=== PATIENT | male | born 1950 | race Two or more races ===

== ENCOUNTER 2020-05-22 23:03 | Inpatient (IN) | payer MEDICARE, MEDICAID ==
[~2020-05-22] VITALS: Ht 177.8 cm; Wt 77.2 kg
--- NOTE | 2020-05-22 23:30 | NUR ---
PATIENT CAME TO ER BED 6 C/O SOB WITH LOW O2 SATURATION FROM [facility] BIB RA. PATIENT IS IN HIGH 80s O2 SATURATION ON ROOM AIR. PATIENT IS GIVEN 02 4L OF N/C UPON ARRIVAL. ALERT AND AWAKE. PATIENT IS DIFFICULT TO UNDERSTAND. PATIENT HAS PRODUCTIVE COUGH. PATIENT IS SUCTIONED PRIOR TO OXYGENATION. PATIENT IS CONNECTED TO PHLEBOTOMY PROGRAM COORDINATOR.
--- NOTE | 2020-05-22 23:49 | NUR ---
XRAY AT BEDSIDE
[2020-05-22] MEDS ORDERED: LIDOCAINE 2% JEL UROJET 10 ML MM ONE (23:50)
[2020-05-22 23:54] LABS: BASOPHILS % (AUTO) 0.6 % (0.0-2.0); EOSINOPHILS % (AUTO) 0.8 % (0.0-6.0); HEMATOCRIT 41 % (39-51); HEMOGLOBIN 13.6 g/dL (13.5-17.5); LYMPHOCYTES # (AUTO) 1.2 /CMM (0.8-4.8); LYMPHOCYTES % (AUTO) 19.4 % (20.0-44.0); MEAN CORPUSCULAR HGB CONC 33 g/dl (31.0-36.0); MEAN CORPUSCULAR VOLUME 83 fL (80-96); MONOCYTES # (AUTO) 0.5 /CMM (0.1-1.30); MONOCYTES % (AUTO) 7.8 % (2.0-12.0); NEUTROPHILS # (AUTO) 4.3 /CMM (1.8-8.9); NEUTROPHILS % (AUTO) 71.4 % (43.0-81.0); PLATELET COUNT (AUTO) 422 /CMM (150-450); RED BLOOD CELL COUNT(AUTO) 4.91 MIL/uL (4.5-6.0); WHITE BLOOD COUNT (AUTO) 6.1 K/uL (4.3-11.0)
[2020-05-23] VITALS (11 sets, daily range): BP systolic 121–140; BP diastolic 66–80
[2020-05-23 00:01] LABS: CALCIUM, SERUM 9.3 mg/dL (8.5-10.1); CARBON DIOXIDE 29 mmol/L (21-32); CHLORIDE 96 mmol/L (98-107); CREATININE 0.9 mg/dL (0.6-1.3); GLUCOSE 242 mg/dL (74-106); POTASSIUM 3.9 mmol/L (3.5-5.1); SODIUM SERUM 133 mmol/L (136-145); UREA NITROGEN, BLOOD 21 mg/dL (7-18)
--- NOTE | 2020-05-23 00:03 | NUR ---
URINE COLLECTED AND SENT TO THE LAB.
[2020-05-23 00:11] LABS: APPEARANCE,URINE Slightly Cloudy (CLEAR); BILIRUBIN,URINE Negative (NEGATIVE); BLOOD, URINE Large Ery/uL (NEGATIVE); COLOR,URINE Yellow (YELLOW); KETONES,URINE Negative (NEGATIVE); LEUKOCYTE ESTERASE ,URINE Negative (NEGATIVE); NITRITE, URINE Negative (NEGATIVE); PH,URINE 5.5 (5.0-8.0); PROTEIN,URINE 30 mg/dl (NEGATIVE); UGLUCOSE Negative (NEGATIVE); UROBILINOGEN,URINE 0.2 EU/dL (0.2)
[2020-05-23 00:13] LABS: ALANINE AMINOTRANSFERASE 21 U/L (12-78); ALBUMIN 3.6 g/dL (3.4-5.0); ALKALINE PHOSPHATASE 141 U/L (46-116); ASPARTATE AMINOTRANSFERASE 28 U/L (15-37); B-TYPE NATRIURETIC PEPTIDE 50 PG/ML (0-125); BILIRUBIN,TOTAL 0.4 mg/dL (0.2-1.0); TOTAL PROTEIN, SERUM 8.1 g/dL (6.4-8.2)
[2020-05-23] MEDS ORDERED: LIDOCAINE 2% JEL UROJET 10 ML MM ONE (00:30)
[2020-05-23] MEDS ORDERED: VANCOMYCIN 1 GM in IV D5W 250 ML IV ONE (00:30)
[2020-05-23] MEDS ORDERED: PIPERACILLIN /TAZOBACTAM 3.375 G in IV D5W 50 ML IV ONE (00:30)
[2020-05-23 00:36] LABS: CREATINE KINASE, TOTAL 933 U/L (39-308)
[2020-05-23 00:37] LABS: RBC,URINE 81-100 /HPF (0-2); WBC,URINE 0-2 /HPF (0-3)
[2020-05-23 00:38] LABS: BACTERIA,URINE Few /HPF (None Seen); MUCUS,URINE Few /LPF (None Seen); SQUAMOUS EPITHELIAL CELL,UR Few /HPF (None Seen)
[2020-05-23 00:39] LABS: C-REACTIVE PROTEIN 2.9 mg/dL (0.0-0.9)
[2020-05-23] MEDS ORDERED: PIPERACILLIN /TAZOBACTAM 3.375 G VIAL IV ONE (00:39)
[2020-05-23] MEDS ORDERED: VANCOMYCIN 1 GM VIAL ONE (00:39)
[2020-05-23] MEDS ORDERED: ACETAMINOPHEN 650 MG/SUPP.RECT RC ONE ×2 (01:16→01:30)
[2020-05-23] MEDS: ZINC SULFATE 220 MG CAPSULE PO SCH ×2 (01:30→09:09)
--- NOTE | 2020-05-23 01:45 | NUR ---
REPORT GIVEN TO DAVIE MONET FOR DENG.
[2020-05-23] MEDS ORDERED: ACETAMINOPHEN 325 MG TABLET PO PRN (02:00)
[2020-05-23] MEDS ORDERED: ALBUTEROL SULFATE 8 GM HFA.AER.AD IH PRN (02:00)
[2020-05-23] MEDS: HEPARIN SODIUM, PORCINE 5000 UNITS/1 ML VIAL SQ SCH ×3 (02:00→17:14)
--- NOTE | 2020-05-23 02:10 | NUR ---
CAMPUS WELLNESS COORDINATOR ADMITTING NOTES RECEIVED REPORT FROM CHIKI DU APPROX 0145 PATIENT BROUGHT TO UNIT APPROX 0210, ACCOMPANIED BY 2 ER STAFF; PATIENT AWAKE, CONFUSED; PATIENT ON 4LPM VIA NC; TOLERATING WELL, SATTING AT 97%; BREATHING EVEN AND UNLABORED; NO SOB NOTED AT THIS TIME; NO DISTRESS NOTED; TELE MONITOR ATTACHED READS S.TACHY WITH 104BPM; ISOLATION PRECAUTIONS MAINTAINED, STILL AWAITING COVID19 RESULTS; SKIN ASSESSMENT DONE; UNABLE TO OBTAIN MEDICAL HISTORY FROM PATIENT D/T MENTAL STATUS; CALLED [facility] TO CONFIRM MEDICAL HX AND CODE STATUS, PER FACILITY PATIENT IS FULL CODE; SAFETY PRECAUTIONS IMPLEMENTED; BED LOCKED IN LOW POSITION; SIDE RAILSX3; CALL LIGHT WITHIN REACH; WILL CONT TO MONITOR
--- NOTE | 2020-05-23 02:19 | NUR ---
PATIENT TAKEN TO ADMITTED ROOM FOR FURTHER CARE.
--- NOTE | 2020-05-23 03:09 | NUR ---
TYING IN MACHINE OPERATOR NOTES PATIENT UNABLE TO FOLLOW COMMANDS, UNABLE TO GIVE SCHEDULED MEDICATIONS PO; WILL ORDER SWALLOW EVAL FOR AM; PATIENT DOES NOT LIKE TO BE TOUCHED; PATIENT ALLOWED US TO CHANGE HIM D/T BOWEL MOVEMENT; PATIENT STARTED YELLING IN [place] WHEN PHYSICAL CHEMISTRY PROFESSOR REMOVED HIIS GOWN AT BEDSIDE; PATIENT STARTED SCREAMING, "NO NO NO NO!" SCHEDULED HEPARIN SQ NON-ADMINISTERED; NO AVAILABLE DVT PUMPS AT THIS TIME; CHARGE NURSE AWARE; WILL INFORM DAY SHIFT; WILL CONT TO MONITOR
--- NOTE | 2020-05-23 03:28 | NUR ---
ASSISTANT CURATOR NOTES UNABLE TO WEIGH PATIENT AND PUT BED ALARM ON, BED IS BROKEN; CHARGE NURSE AWARE; SIDE RAILSX3 UP; WILL CONT TO MONITOR
--- NOTE | 2020-05-23 04:28 | NUR ---
WHARFINGER CHIEF NOTES SPOKE WITH ASSISTANT PLANT MANAGER, PER ASSISTANT PLANT MANAGER, PATIENT COVID19 RESULT IS NEGATIVE; CHARGE NURSE AWARE; WILL CONT TO MONITOR
--- NOTE | 2020-05-23 06:37 | NUR ---
BUSINESS ANALYTICS ANALYST CLOSING NOTES PATIENT RESTING IN BED COMFORTABLY; A/OX1, CONFUSED, BAHAMIAN/COLOMBIAN SPEAKING; BREATHING EVEN AND UNLABORED; PATIENT ON 4LPM VIA NC, TOLERATING WELL; NO SOB NOTED; TELE MONITOR ATTACHED, READS NSR 80S BPM; R FA #18 SL INTACT AND PATENT, FLUSHING WELL; NO S/S OF REDNESS OR INFILTRATION NOTED; ALL NEEDS RENDERED; SAFETY PRECAUTIONS IMPLEMENTED; BED LOCKED IN LOW POSITION; SIDE RAILSX3, WILL ENDORSE DENG TO ONCOMING SHIFT
[2020-05-23 06:59] LABS: BASOPHILS % (AUTO) 0.2 % (0.0-2.0); EOSINOPHILS % (AUTO) 0.1 % (0.0-6.0); HEMATOCRIT 38 % (39-51); HEMOGLOBIN 12.7 g/dL (13.5-17.5); LYMPHOCYTES # (AUTO) 0.2 /CMM (0.8-4.8); LYMPHOCYTES % (AUTO) 2.7 % (20.0-44.0); MEAN CORPUSCULAR HGB CONC 33 g/dl (31.0-36.0); MEAN CORPUSCULAR VOLUME 82 fL (80-96); MONOCYTES % (AUTO) 11.5 % (2.0-12.0); NEUTROPHILS # (AUTO) 7.8 /CMM (1.8-8.9); NEUTROPHILS % (AUTO) 85.5 % (43.0-81.0); PLATELET COUNT (AUTO) 374 /CMM (150-450); RED BLOOD CELL COUNT(AUTO) 4.67 MIL/uL (4.5-6.0); WHITE BLOOD COUNT (AUTO) 9.1 K/uL (4.3-11.0)
[2020-05-23 07:14] LABS: CALCIUM, SERUM 9.2 mg/dL (8.5-10.1); CREATININE 0.8 mg/dL (0.6-1.3); MAGNESIUM 1.9 mg/dL (1.8-2.4); PHOSPHORUS 3.1 mg/dL (2.5-4.9); POTASSIUM 3.6 mmol/L (3.5-5.1)
[2020-05-23] MEDS: DEXAMETHASONE SOD PHOSPHATE 10 MG/ML VIAL IV SCH (09:10)
--- NOTE | 2020-05-23 09:16 | NUR ---
DEVAN NOTIFIED PATIENT COVID POSITIVE ,PER MD NEED RSWAB WITH PCR,PRIMARY RN MADE AWARE.
--- NOTE | 2020-05-23 09:18 | NUR ---
ADDENDUM ON NURSES NOTES PATIENT IS COVID NEGATIVE RAPID TEST.
[2020-05-23] MEDS ORDERED: PRAV40TA3 PO (09:45)
[2020-05-23] MEDS ORDERED: TAMS-12 PO (09:45)
[2020-05-23] MEDS ORDERED: CALC-883 PO (09:45)
[2020-05-23] MEDS ORDERED: AMIN887L PO (09:45)
[2020-05-23] MEDS ORDERED: DONE10TA44 PO (09:45)
[2020-05-23] MEDS ORDERED: INSU100V7 SQ (09:45)
[2020-05-23] MEDS ORDERED: TRAZ-257 PO (09:45)
[2020-05-23] MEDS ORDERED: ACET325T53 PO (09:45)
[2020-05-23] MEDS ORDERED: RISP3TAB14 PO (09:45)
[2020-05-23] MEDS ORDERED: DOCU-141 PO (09:45)
[2020-05-23] MEDS ORDERED: SERT100T PO (09:45)
[2020-05-23] MEDS ORDERED: INSU100V39 SQ (09:45)
[2020-05-23] MEDS ORDERED: CLON0.1T PO (09:45)
[2020-05-23] MEDS ORDERED: MAGN400O6 PO (09:45)
[2020-05-23] MEDS ORDERED: FERR325T23 PO (09:45)
[2020-05-23] MEDS ORDERED: LINA5TAB PO (09:45)
[2020-05-23] MEDS ORDERED: MULT-439 PO (09:45)
[2020-05-23] MEDS ORDERED: MIRT15TA PO (09:45)
[2020-05-23] MEDS ORDERED: ASPI-605 PO (09:45)
[2020-05-23] MEDS ORDERED: ALBUTEROL FS 2.5 MG/3 ML VIAL.NEB NEB PRN ×2 (14:00)
[2020-05-23] MEDS ORDERED: AZITHROMYCIN 250 MG TABLET PO SCH (15:00)
[2020-05-23] MEDS ORDERED: CEFTRIAXONE 1 G in IV D5W 50 ML IV SCH (15:00)
--- NOTE | 2020-05-23 18:33 | NUR ---
SIGN ERECTOR AND REPAIRER NOTES PATIENT IN BED RESTING NO SOB OR ACUTE DISTRESS NOTED. ALL DUE MEDICATIONS ADMINISTERED. ALL NEEDS MET. PATIENT IS CONFUSED WITH GOOD APATITE. PERIPHERAL IV INTACT PATENT. WILL ENDORSE CARE TO PM SHIFT.
--- NOTE | 2020-05-23 19:10 | NUR ---
RN OPENING NOTES: Received pt resting in bed, on isolation for R/O Covid. A&Ox1. On 4L/min NC tolerating well. No SOB or respiratory distress noted. SR on tele monitor. IV site on RFA #18 patent and flushed. Dressing c/d/i. Safety measures in place. Will continue to monitor.
[2020-05-23] MEDS ORDERED: FEE PK DOSING 1 MIN EA MC ONE (19:45)
[2020-05-23] MEDS: VANCOMYCIN 1 GM in IV D5W 250 ML IV SCH (20:35)
[2020-05-23] MEDS: CEFEPIME 2 GM in IV D5W 100 ML IV SCH (21:54)
[2020-05-23] MEDS ORDERED: CEFEPIME 2 GM in IV D5W 100 ML IV SCH (22:00)
[2020-05-24] VITALS: BP 139/60
[2020-05-24] MEDS: HEPARIN SODIUM, PORCINE 5000 UNITS/1 ML VIAL SQ SCH ×3 (01:11→17:20)
[2020-05-24 04:00] VITALS: BP 135/55
--- NOTE | 2020-05-24 06:39 | NUR ---
RN CLOSING NOTES: Pt remains on 4L/min NC tolerating well. No SOB or respiratory distress noted throughout shift. No acute changes noted during shift. SR on tele monitor. Isolation precautions in place. All meds administered as ordered. Kept clean and dry. Safety measures in place. Will endorse to AM nurse for DENG.
[2020-05-24 06:57] LABS: ALBUMIN 2.9 g/dL (3.4-5.0); BILIRUBIN,DIRECT 0.1 mg/dL (0.0-0.2); BILIRUBIN,TOTAL 0.4 mg/dL (0.2-1.0); CALCIUM, SERUM 9.1 mg/dL (8.5-10.1); CREATININE 0.8 mg/dL (0.6-1.3); PHOSPHORUS 2.8 mg/dL (2.5-4.9); POTASSIUM 3.9 mmol/L (3.5-5.1); TOTAL PROTEIN, SERUM 6.9 g/dL (6.4-8.2)
[2020-05-24 07:00] LABS: BASOPHILS % (AUTO) 0.6 % (0.0-2.0); EOSINOPHILS % (AUTO) 0.8 % (0.0-6.0); HEMATOCRIT 35 % (39-51); HEMOGLOBIN 11.5 g/dL (13.5-17.5); LYMPHOCYTES # (AUTO) 0.8 /CMM (0.8-4.8); LYMPHOCYTES % (AUTO) 10.4 % (20.0-44.0); MEAN CORPUSCULAR HGB CONC 33 g/dl (31.0-36.0); MEAN CORPUSCULAR VOLUME 82 fL (80-96); MONOCYTES # (AUTO) 0.9 /CMM (0.1-1.30); MONOCYTES % (AUTO) 11.1 % (2.0-12.0); NEUTROPHILS # (AUTO) 6.2 /CMM (1.8-8.9); NEUTROPHILS % (AUTO) 77.1 % (43.0-81.0); PLATELET COUNT (AUTO) 359 /CMM (150-450); RED BLOOD CELL COUNT(AUTO) 4.25 MIL/uL (4.5-6.0)
[2020-05-24 07:04] LABS: THYROID STIMULATING HORMONE 2.357 uIU/mL (0.358-3.74)
[2020-05-24 07:26] LABS: C-REACTIVE PROTEIN 21.2 mg/dL (0.0-0.9)
[2020-05-24 08:00] VITALS: BP_SYST 126; BP_SYST 152; BP_DIAS 51; BP_DIAS 59
[2020-05-24] MEDS: ZINC SULFATE 220 MG CAPSULE PO SCH (08:31)
[2020-05-24] MEDS: DEXAMETHASONE SOD PHOSPHATE 10 MG/ML VIAL IV SCH (08:32)
[2020-05-24] MEDS: VANCOMYCIN 1 GM in IV D5W 250 ML IV SCH ×2 (08:33→21:55)
--- NOTE | 2020-05-24 09:28 | NUR ---
RURAL ELECTRIFICATION ENGINEER OPENING NOTES: PATIENT IN BED SLEEPING, AROUSED BY VOICE AND TOUCH STIMULI. PATIENT DOES NOT SHOW ANY SIGNS OF RESPIRATORY DISTRESS, BREATHING EASILY, NO SIGNS OF PAIN. PATIENTS BED IS IN THE LOWEST POSITION, BED ALARM IS ON, SIDE RAILS ARE UP, CALL LIGHT IS WITHIN REACH. WILL CONTINUE TO MONITOR.
[2020-05-24] MEDS ORDERED: DEXTROSE 50%-WATER 50 ML DISP.SYRIN IV PRN (09:30)
[2020-05-24] MEDS: CEFEPIME 2 GM in IV D5W 100 ML IV SCH ×2 (09:59→23:05)
[2020-05-24] MEDS: IV NS 0.9% 1,000 ML IV PRN ×2 (11:30→17:21)
[2020-05-24] MEDS: INSULIN REGULAR, HUMAN 100 UNIT/ML 3 ML VIAL SQ PRN ×2 (11:44→21:42)
[2020-05-24] MEDS: BLOOD SUGAR DIAGNOSTIC 1 EACH STRIP IN SCH ×3 (11:44→21:40)
--- NOTE | 2020-05-24 11:59 | NUR ---
ELECTRICAL SOFTWARE ENGINEER NOTES: PATIENT IN BED, SLEEPING. NO SIGNS OF PAIN OR BREATHING DIFFICULTY. ACU CHECK WAS DONE, INSULIN WAS ADMINISTERED. WILL CONTINUE TO MONITOR.
[2020-05-24 12:00] VITALS: BP 122/54
--- NOTE | 2020-05-24 12:50 | NUR ---
MD NOTIFIED PATIENT CCOVID NEGATIVE ,NO NEW ORDERS,NURSING SUP MADE AWARE,AWAITS NONCOVID ROOM,WILL CONTINUE TO FOLLOW.
--- NOTE | 2020-05-24 13:30 | NUR ---
RN NOTE Report received from Parisa MONET for DENG.
--- NOTE | 2020-05-24 14:57 | NUR ---
GOT CLEARANCE FROM DR. FLANAGAN TO D/C TELE AND OK TO TRANSFER TO NON COVID FLOOR,NURSING SUP MADE AWARE,AWAITS BED.
[2020-05-24 15:41] LABS: ABG BASE EXCESS 3.3 mmol/L; ABG OXYGEN SATURATION 99.1 % (92.0-98.5); ABG PCO2 41.1 mmHg (35.0-45.0); ABG PH 7.446 (7.350-7.450); ABG PO2 152.3 mmHg (75.0-100.0); AaDO2 56.7 mmHg; COHb 0.4 % (0.5-1.5); MetHb 0.3 % (0.0-1.5); O2Hb 98.4 % (94.0-97.0); SITE, ABG Right Radial; VENT MODE, BG nasal cannula
--- NOTE | 2020-05-24 15:44 | NUR ---
RN NOTE Endorsed to Lori MONET for DENG.
[2020-05-24 16:00] VITALS: BP_SYST 116; BP_SYST 122; BP_DIAS 54; BP_DIAS 57
--- NOTE | 2020-05-24 16:21 | NUR ---
RN NOTE PATIENT TRANSFERRED TO [address] [place] [address], HALIMA RN HELPED WITH TRANSFER AND WILL GIVE REPORT AT BEDSIDE.
--- NOTE | 2020-05-24 16:30 | NUR ---
MS/manganese wheeler Patient transferred from MS1. Appears comfortable upon arrival, in no respiratory distress or pain at this time. IV fluids infusing at 100ml/hr via right forearm 18g, no signs of infiltration seen. Bed alarm switched on, side rails X3 in upright position, bed in low setting. Call light within reach, will continue to monitor and ensure safety.
--- NOTE | 2020-05-24 16:30 | NUR ---
RN NOTE Report given to Destinee MONET in [facility] for DENG
--- NOTE | 2020-05-24 18:00 | NUR ---
MS/RN Heparin Heparin administered as ordered, no signs of bleeding.
--- NOTE | 2020-05-24 18:17 | NUR ---
MS/RN End note Patient remains in stable condition, no new needs or concerns. Will endore to awake overnight counselor.
--- NOTE | 2020-05-24 19:30 | NUR ---
MS RN OPENING NOTES RECEIVED PATIENT FROM MORNING SHIFT, ALERT AND ORIENTED X 1. BREATHING REGULAR AND UNLABORED ON OXYGEN AT 4L/MIN VIA NASAL CANNULA. RIGHT FOREARM G18 IV LINE INTACT AND PATENT, INFUSING WELL WITH NO BLEEDING OR S/S OF INFILTRATION NOTED. NO S/S OF PAIN/DISCOMFORT NOTED AT THIS TIME. BED LOW AND LOCKED ON SEMI FOWLERS POSITION. CALL LIGHT IN REACH. WILL CONTINUE TO MONITOR.
[2020-05-24 20:00] VITALS: BP 117/70
--- NOTE | 2020-05-24 22:00 | NUR ---
MS RN NOTES BS 176mg/dl, 3UNITS REGULAR INSULIN GIVEN SQ. ASSISTED ON EATING SNACKS. WILL CONTINUE TO MONITOR.
[2020-05-25] VITALS: BP 161/95
[2020-05-25] MEDS: HEPARIN SODIUM, PORCINE 5000 UNITS/1 ML VIAL SQ SCH ×3 (01:52→17:02)
[2020-05-25] MEDS: IV NS 0.9% 1,000 ML IV PRN ×2 (05:08→15:51)
--- NOTE | 2020-05-25 06:30 | NUR ---
MS RN CLOSING NOTES PATIENT IN BED ALERT AND ORIENTED X 1. AFEBRILE WITH NO S/S OF DISTRESS OBSERVED. RIGHT FOREARM G18 IV LINE PATENT AND INFUSING WELL. NO S/S OF PAIN/DISCOMFORT NOTED AT THIS TIME. BED LOW AND LOCKED ON SEMI FOWLERS POSITION. CALL LIGHT IN REACH. WILL ENDORSE TO MORNING SHIFT FOR DENG.
[2020-05-25] MEDS: BLOOD SUGAR DIAGNOSTIC 1 EACH STRIP IN SCH ×4 (06:40→22:24)
[2020-05-25] MEDS: INSULIN REGULAR, HUMAN 100 UNIT/ML 3 ML VIAL SQ PRN ×4 (06:46→22:27)
[2020-05-25 07:29] LABS: BASOPHILS % (AUTO) 0.5 % (0.0-2.0); EOSINOPHILS % (AUTO) 0.7 % (0.0-6.0); HEMATOCRIT 36 % (39-51); HEMOGLOBIN 12.1 g/dL (13.5-17.5); LYMPHOCYTES # (AUTO) 1.1 /CMM (0.8-4.8); LYMPHOCYTES % (AUTO) 11.1 % (20.0-44.0); MEAN CORPUSCULAR HGB CONC 34 g/dl (31.0-36.0); MEAN CORPUSCULAR VOLUME 81 fL (80-96); MONOCYTES # (AUTO) 1.1 /CMM (0.1-1.30); MONOCYTES % (AUTO) 10.7 % (2.0-12.0); NEUTROPHILS # (AUTO) 7.6 /CMM (1.8-8.9); PLATELET COUNT (AUTO) 386 /CMM (150-450); RED BLOOD CELL COUNT(AUTO) 4.39 MIL/uL (4.5-6.0); WHITE BLOOD COUNT (AUTO) 9.8 K/uL (4.3-11.0)
[2020-05-25 07:34] LABS: CALCIUM, SERUM 9.5 mg/dL (8.5-10.1); CREATININE 0.6 mg/dL (0.6-1.3); MAGNESIUM 1.8 mg/dL (1.8-2.4); PHOSPHORUS 2.4 mg/dL (2.5-4.9); POTASSIUM 3.2 mmol/L (3.5-5.1)
[2020-05-25 07:50] LABS: URIC ACID 2.8 mg/dL (2.6-7.2)
[2020-05-25 08:00] VITALS: BP 126/78
--- NOTE | 2020-05-25 08:00 | NUR ---
RN NOTES RECEIVED PATIENT IN THE BED. RESPONDS NAME, FRENCH SPEAKER, PATIENT TOTAL CARE, CONFUSED, PARANOID, YELLING, TOTAL ASSIST FEEDER, CRUSHED MEDICATION, ASSIST TURN AND REPOSTION Q 2 HR. CONTINUED MONITORING.
[2020-05-25] MEDS: VANCOMYCIN 1 GM in IV D5W 250 ML IV SCH ×2 (08:55→18:08)
[2020-05-25] MEDS: ZINC SULFATE 220 MG CAPSULE PO SCH (08:56)
[2020-05-25] MEDS: CEFEPIME 2 GM in IV D5W 100 ML IV SCH ×2 (10:27→22:14)
[2020-05-25] MEDS ORDERED: HALOPERIDOL LACTATE INJ 5 MG/ML VIAL IV ONE (10:30)
--- NOTE | 2020-05-25 10:38 | NUR ---
rn notes patient very anxious, paranoid, delusional, internal stimuli, called [employer] LO[employer] AND UNLOAD Miles and get TO order Haldol 2 mg/ml iv push x1, and psych consultation, order taken and carried out. continued monitoring.
--- NOTE | 2020-05-25 10:58 | NUR ---
rn notes administered Haldol 2 mg/ml; im right upper deltoid area for psychosis nos.
[2020-05-25] MEDS ORDERED: HALOPERIDOL LACTATE INJ 5 MG/ML VIAL IM ONE (11:00)
--- NOTE | 2020-05-25 11:00 | NUR ---
RN NOTES ABG DONE VIA RT, RESULT WAS NORMAL. PATIENT ROOM AIR, NO ACUTE RESPIRATORY DISTRESS.
[2020-05-25] MEDS ORDERED: POTASSIUM CHLORIDE 20 MEQ TAB.PRT.SR PO ONE (12:00)
--- NOTE | 2020-05-25 12:00 | NUR ---
RN NOTES BS-270 MG/DL COVERAGE GIVEN, ASSIST TURN AND REPOSTION Q 2 HR.
[2020-05-25 12:49] LABS: ABG BASE EXCESS 0.8 mmol/L; ABG PO2 113.8 mmHg (75.0-100.0); AaDO2 7.2 mmHg; COHb 0.3 % (0.5-1.5); MetHb 0.2 % (0.0-1.5); O2Hb 97.5 % (94.0-97.0); SITE, ABG Left Radial; VENT MODE, BG RA
[2020-05-25] MEDS ORDERED: HALOPERIDOL LACTATE INJ 5 MG/ML VIAL IM PRN (13:30)
[2020-05-25] MEDS: SERTRALINE HCL 50 MG TABLET PO SCH (14:10)
[2020-05-25 16:00] VITALS: BP 116/63
[2020-05-25] MEDS: risperiDONE 1 MG TABLET PO SCH ×2 (16:59→20:52)
[2020-05-25] MEDS ORDERED: K PHOS NEUTRAL 250 MG TABLET PO ONE (17:30)
--- NOTE | 2020-05-25 18:00 | NUR ---
RN NOTES BS-131 MG/DL, TOLERATED DINNER 100% WITH ASSIST, ASSIST TURN AND REPOSTION Q 2 HR, CRUSHED MEDICATION, ASSIST TURN AND REPOSTION Q 2 HR, INFUSING VANCOMYCIN 250ML/HR INTACT, ON LEFT FA , CALL LIGHT WITHIN TO REACH. SAFETY PRECAUTION MAINTAINED ALL THE TIME. ENDORSED ONCOMING NURSE FOLLOW PLAN OF CARE.
--- NOTE | 2020-05-25 19:25 | NUR ---
MS RN NOTES RECEIVED PT IN BED AND AWAKE. PT A/O X1 AND CONFUSED. RESPIRATIONS EVEN AND UNLABORED WITH NO S/S OF ACUTE DISTRESS OR SOB NOTED. NO COMPLAINTS OF PAIN AT THIS TIME. PT NOTED WITH RFA #18G PATENT AND INTACT INFUSING NS @100CC/HR. SAFETY MEASURES IN PLACE WITH BED IN LOWEST LOCKED POSITION WITH SIDE RAILS UP X2. CALL LIGHT WITHIN REACH. WILL CONTINUE TO MONITOR.
[2020-05-25 20:00] VITALS: BP 156/91
[2020-05-25 21:23] LABS: IRON, SERUM 28 ug/dl (50-175); TOTAL IRON BINDING CAPACITY 269 ug/dl (250-450)
[2020-05-26] MEDS: HEPARIN SODIUM, PORCINE 5000 UNITS/1 ML VIAL SQ SCH ×3 (02:37→17:50)
[2020-05-26] MEDS: IV NS 0.9% 1,000 ML IV PRN ×2 (03:47→20:05)
[2020-05-26] MEDS: VANCOMYCIN 1 GM in IV D5W 250 ML IV SCH (05:25)
[2020-05-26] MEDS: INSULIN REGULAR, HUMAN 100 UNIT/ML 3 ML VIAL SQ PRN ×4 (06:46→22:52)
[2020-05-26] MEDS: BLOOD SUGAR DIAGNOSTIC 1 EACH STRIP IN SCH ×4 (06:49→22:50)
--- NOTE | 2020-05-26 07:30 | NUR ---
MS RN NOTES PT IN BED AND AWAKE. PT A/O X1 AND CONFUSED. RESPIRATIONS EVEN AND UNLABORED WITH NO S/S OF ACUTE DISTRESS OR SOB NOTED THROUGHOUT SHIFT. NO COMPLAINTS OF PAIN AT THIS TIME. PT NOTED WITH RFA #18G PATENT AND INTACT INFUSING NS @100CC/HR. PT KEPT CLEAN, DRY, AND COMFORTABLE. SAFETY MEASURES IN PLACE WITH BED IN LOWEST LOCKED POSITION WITH SIDE RAILS UP X2. CALL LIGHT WITHIN REACH. WILL ENDORSE TO ONCOMING NURSE FOR DENG.
--- NOTE | 2020-05-26 07:59 | NUR ---
MS OPENING NOTES: PATIENT IS A/OX1, IN BED CALM. WITH NO SIGNS OF DISTRESS IN ROOM AIR. IV R FA #18G INTACT. SAFETY MEASURES ARE IN PLACE BED IS IN LOW POSITION LOCKED AND SIDE RAILS UP X 2 FOR SAFETY. CALL LIGHT IS WITHIN REACH.WILL CONTINUE TO MONITOR.
[2020-05-26 08:00] VITALS: BP 115/65
[2020-05-26 08:14] LABS: BASOPHILS # (AUTO) 0.1 /CMM (0.0-0.2); BASOPHILS % (AUTO) 1.1 % (0.0-2.0); EOSINOPHILS % (AUTO) 2.3 % (0.0-6.0); HEMATOCRIT 36 % (39-51); HEMOGLOBIN 11.6 g/dL (13.5-17.5); LYMPHOCYTES # (AUTO) 0.5 /CMM (0.8-4.8); LYMPHOCYTES % (AUTO) 7.1 % (20.0-44.0); MEAN CORPUSCULAR HGB CONC 33 g/dl (31.0-36.0); MEAN CORPUSCULAR VOLUME 82 fL (80-96); MONOCYTES # (AUTO) 0.6 /CMM (0.1-1.30); NEUTROPHILS # (AUTO) 5.4 /CMM (1.8-8.9); NEUTROPHILS % (AUTO) 80.5 % (43.0-81.0); PLATELET COUNT (AUTO) 383 /CMM (150-450); RED BLOOD CELL COUNT(AUTO) 4.34 MIL/uL (4.5-6.0); WHITE BLOOD COUNT (AUTO) 6.7 K/uL (4.3-11.0)
[2020-05-26 08:25] LABS: CREATININE 0.6 mg/dL (0.6-1.3); MAGNESIUM 1.7 mg/dL (1.8-2.4); PHOSPHORUS 3.9 mg/dL (2.5-4.9); POTASSIUM 3.9 mmol/L (3.5-5.1)
[2020-05-26 08:57] LABS: C-REACTIVE PROTEIN 6.2 mg/dL (0.0-0.9)
[2020-05-26] MEDS: ZINC SULFATE 220 MG CAPSULE PO SCH (09:30)
[2020-05-26] MEDS: risperiDONE 1 MG TABLET PO SCH ×4 (09:31→20:12)
[2020-05-26] MEDS: CEFEPIME 2 GM in IV D5W 100 ML IV SCH ×2 (09:35→22:50)
[2020-05-26] MEDS: Magnesium 1GM/D5W 100ML PREMIX 100 ML IV SCH ×2 (12:58→14:04)
[2020-05-26] MEDS: SERTRALINE HCL 50 MG TABLET PO SCH (13:17)
[2020-05-26 16:00] VITALS: BP 128/57
--- NOTE | 2020-05-26 19:30 | NUR ---
RN CLOSED NOTES PATIENT IS A/OX1, IN BED CALM. WITH NO SIGNS OF DISTRESS IN ROOM AIR. IV R FA #18G INTACT. SCHEDULED MEDICATIONS WERE AND TOLERATED WELL. PATIENT KEPT CLEAN AND DRY. SAFETY MEASURES ARE IN PLACE BED IS IN LOW POSITION LOCKED AND SIDE RAILS UP X 2 FOR SAFETY. CALL LIGHT IS WITHIN REACH.WILL ENDORSE TO THE NEXT GUNSTOCK SPRAY UNIT FEEDER NURSE.
[2020-05-26 20:00] VITALS: BP 144/58
[2020-05-26] MEDS ORDERED: VANCOMYCIN 1 GM in IV D5W 250 ML IV SCH (23:00)
[2020-05-27] MEDS: HEPARIN SODIUM, PORCINE 5000 UNITS/1 ML VIAL SQ SCH ×3 (02:27→17:07)
[2020-05-27] MEDS: BLOOD SUGAR DIAGNOSTIC 1 EACH STRIP IN SCH (07:06)
--- NOTE | 2020-05-27 07:30 | NUR ---
MS/RN OPENING NOTES Patient resting in bed, A&O x1. No s/s of pain/discomfort at this time. Breathing even and non-labored on RA. No respiratory or cardiac distress noted. IV access noted on R FA #18, patent and intact, and running NS at 100 cc/hr. No infection/infiltration/bleeding noted on site. Sensation from all peripheral extremities intact. Fall precautions maintained. Will continue with current medical management.
[2020-05-27 08:00] VITALS: BP 155/89
--- NOTE | 2020-05-27 08:13 | NUR ---
MS RN NOTES PT IN BED AND RESTING. PT A/O X1 AND CONFUSED. RESPIRATIONS EVEN AND UNLABORED WITH NO S/S OF ACUTE DISTRESS OR SOB NOTED THROUGHOUT SHIFT. NO COMPLAINTS OF PAIN AT THIS TIME. PT NOTED WITH RFA #18G PATENT AND INTACT INFUSING NS @100CC/HR. SAFETY MEASURES IN PLACE WITH BED IN LOWEST LOCKED POSITION WITH SIDE RAILS UP X2. PT KEPT CLEAN, DRY, AND COMFORTABLE. CALL LIGHT WITHIN REACH. WILL ENDORSE TO ONCOMING NURSE FOR DENG.
[2020-05-27] MEDS: risperiDONE 1 MG TABLET PO SCH ×3 (08:44→17:03)
[2020-05-27] MEDS: ZINC SULFATE 220 MG CAPSULE PO SCH (08:44)
[2020-05-27] MEDS: INSULIN REGULAR, HUMAN 100 UNIT/ML 3 ML VIAL SQ PRN ×3 (08:45→21:29)
[2020-05-27] MEDS: CEFEPIME 2 GM in IV D5W 100 ML IV SCH ×2 (09:28→21:11)
[2020-05-27 10:10] LABS: BASOPHILS # (AUTO) 0.1 /CMM (0.0-0.2); BASOPHILS % (AUTO) 1.2 % (0.0-2.0); EOSINOPHILS % (AUTO) 1.1 % (0.0-6.0); HEMATOCRIT 38 % (39-51); HEMOGLOBIN 12.3 g/dL (13.5-17.5); LYMPHOCYTES # (AUTO) 0.6 /CMM (0.8-4.8); LYMPHOCYTES % (AUTO) 9.8 % (20.0-44.0); MEAN CORPUSCULAR HGB CONC 33 g/dl (31.0-36.0); MEAN CORPUSCULAR VOLUME 83 fL (80-96); MONOCYTES # (AUTO) 0.5 /CMM (0.1-1.30); MONOCYTES % (AUTO) 8.5 % (2.0-12.0); NEUTROPHILS # (AUTO) 4.9 /CMM (1.8-8.9); NEUTROPHILS % (AUTO) 79.4 % (43.0-81.0); PLATELET COUNT (AUTO) 356 /CMM (150-450); RED BLOOD CELL COUNT(AUTO) 4.54 MIL/uL (4.5-6.0); WHITE BLOOD COUNT (AUTO) 6.2 K/uL (4.3-11.0)
[2020-05-27 10:30] LABS: CALCIUM, SERUM 9.3 mg/dL (8.5-10.1); CREATININE 0.8 mg/dL (0.6-1.3); PHOSPHORUS 3.9 mg/dL (2.5-4.9); POTASSIUM 3.8 mmol/L (3.5-5.1)
[2020-05-27 11:18] LABS: C-REACTIVE PROTEIN 4.5 mg/dL (0.0-0.9)
[2020-05-27] MEDS ORDERED: DEXTROSE 50%-WATER 50 ML DISP.SYRIN IV PRN (13:00)
[2020-05-27] MEDS ORDERED: *INSULIN REGULAR(HUMULIN R)HUM 100 UNIT/ML VIAL SQ PRN (13:00)
[2020-05-27] MEDS: IV NS 0.9% 1,000 ML IV PRN (13:21)
[2020-05-27 16:00] VITALS: BP 157/96
--- NOTE | 2020-05-27 16:00 | NUR ---
MS/RN NOTES Followed up pharmacy to bring in vancomycin, states "they will bring it up in a bit."
--- NOTE | 2020-05-27 16:40 | NUR ---
MS/RN NOTES Followed up to pharmacy again about vancomycin, they said "will bring it up soon."
[2020-05-27] MEDS: VANCOMYCIN 1 GM in IV D5W 250 ML IV SCH (17:17)
--- NOTE | 2020-05-27 17:17 | NUR ---
MS/RN NOTES Pharmacy just delivered vancomycin, administered immediately.
[2020-05-27] MEDS: BLOOD SUGAR DIAGNOSTIC 1 EACH STRIP VI SCH ×2 (17:18→21:23)
--- NOTE | 2020-05-27 18:30 | NUR ---
MS/RN CLOSING NOTES Patient resting comfortably in bed, A&O x1. Breathing even and non-labored on RA. No respiratory or cardiac distress noted. Denies pain and discomfort at this time. IV access noted on R FA #18, patent and intact, and running NS at 100 cc/hr. No infection/infiltration/bleeding noted on site. Sensation from all peripheral extremities intact. Fall precautions maintained. Will endorse to concierge receptionist nurse.
--- NOTE | 2020-05-27 19:30 | NUR ---
MS/RN OPENING NOTES RECEIVED PATIENT IN BED AWAKE, ALERT AND ORIENTED X 1. NO SIGNS OF SOB OR RESPIRATORY DISTRESS NOTED. PATIENT IS ON ROOM AIR TOLERATING WELL. BREATHING IS EVEN AND NON LABORED. PATIENT HAS RIGHT FOREARM #18 G INTACT RUNNING NS AT 100 ML/HR. PATIENT IS IN A COMFORTABLE POSITION. SAFETY MEASURES ARE IN PLACE, BED IS LOCKED AND PLACED IN THE LOWEST POSITION, ALARM ON WITH SIDE RAILS UP X 2. CALL LIGHT IS WITHIN REACH. WILL CONTINUE TO MONITOR PATIENT THROUGH OUT SHIFT.
[2020-05-27 20:00] VITALS: BP 137/63
[2020-05-28] MEDS: HEPARIN SODIUM, PORCINE 5000 UNITS/1 ML VIAL SQ SCH ×2 (01:26→09:03)
[2020-05-28] MEDS: VANCOMYCIN 1 GM in IV D5W 250 ML IV SCH (03:56)
[2020-05-28] MEDS: BLOOD SUGAR DIAGNOSTIC 1 EACH STRIP VI SCH ×2 (06:41→11:48)
[2020-05-28 06:43] LABS: BASOPHILS # (AUTO) 0.1 /CMM (0.0-0.2); BASOPHILS % (AUTO) 0.9 % (0.0-2.0); EOSINOPHILS % (AUTO) 2.9 % (0.0-6.0); HEMATOCRIT 37 % (39-51); HEMOGLOBIN 12.2 g/dL (13.5-17.5); LYMPHOCYTES # (AUTO) 1.1 /CMM (0.8-4.8); LYMPHOCYTES % (AUTO) 14.9 % (20.0-44.0); MEAN CORPUSCULAR HGB CONC 33 g/dl (31.0-36.0); MEAN CORPUSCULAR VOLUME 82 fL (80-96); MONOCYTES # (AUTO) 0.7 /CMM (0.1-1.30); MONOCYTES % (AUTO) 9.8 % (2.0-12.0); NEUTROPHILS # (AUTO) 5.4 /CMM (1.8-8.9); NEUTROPHILS % (AUTO) 71.5 % (43.0-81.0); PLATELET COUNT (AUTO) 343 /CMM (150-450); RED BLOOD CELL COUNT(AUTO) 4.51 MIL/uL (4.5-6.0); WHITE BLOOD COUNT (AUTO) 7.5 K/uL (4.3-11.0)
[2020-05-28] MEDS: INSULIN REGULAR, HUMAN 100 UNIT/ML 3 ML VIAL SQ PRN ×2 (06:43→12:25)
--- NOTE | 2020-05-28 06:50 | NUR ---
MS/RN CLOSING NOTES PATIENT IN BED SLEEPING ALERT AND ORIENTED X 1. NO SIGNS OF SOB OR RESPIRATORY DISTRESS NOTED. PATIENT IS ON ROOM AIR TOLERATING WELL. BREATHING IS EVEN AND NON LABORED. PATIENT HAS RIGHT FOREARM #18 G INTACT RUNNING NS AT 100 ML/HR. PATIENT IS IN A COMFORTABLE POSITION. ALL PATIENTS NEEDS HAVE BEEN MET DURING SHIFT. SAFETY MEASURES ARE IN PLACE, BED IS LOCKED AND PLACED IN THE LOWEST POSITION, ALARM ON WITH SIDE RAILS UP X 2. CALL LIGHT IS WITHIN REACH. WILL ENDORSE CARRE TO DAY SHIFT.
[2020-05-28 07:17] LABS: CALCIUM, SERUM 9.3 mg/dL (8.5-10.1); CREATININE 0.7 mg/dL (0.6-1.3); MAGNESIUM 1.9 mg/dL (1.8-2.4); PHOSPHORUS 3.7 mg/dL (2.5-4.9); POTASSIUM 4.1 mmol/L (3.5-5.1)
--- NOTE | 2020-05-28 07:28 | NUR ---
MS/RN OPENING NOTES Patient resting in bed, A&O x1, verbally responsive to verbal and tactile stimulation. Breathing even and non-labored on RA. No respiratory or cardiac distress noted. No s/s of pain/discomfort at this time. IV access noted on R FA #18, patent and intact, and running NS at 100 cc/hr. No infection/infiltration/bleeding noted on site. Sensation from all peripheral extremities intact. Fall precautions maintained. Will continue with current plan of care.
[2020-05-28 08:00] VITALS: BP 113/60
[2020-05-28] MEDS: risperiDONE 1 MG TABLET PO SCH ×2 (08:58→12:25)
[2020-05-28] MEDS: CEFEPIME 2 GM in IV D5W 100 ML IV SCH (09:01)
[2020-05-28] MEDS: ZINC SULFATE 220 MG CAPSULE PO SCH (09:02)
[2020-05-28] MEDS: IV NS 0.9% 1,000 ML IV PRN (09:21)
[2020-05-28] MEDS ORDERED: RISP1TAB7 PO (12:57)
[2020-05-28] MEDS ORDERED: Zinc Sulfate PO (12:57)
[2020-05-28] MEDS ORDERED: HEPA50008 SQ (12:57)
--- NOTE | 2020-05-28 15:30 | NUR ---
MS/RN NOTES Report done to Maria Dolores (nursing supervisory cbp officer at [facility]), explained discharge instructions and plan of care regarding patient. She verbalized understanding. Offered our unit number just in case she had more questions regarding patient.
--- NOTE | 2020-05-28 16:25 | NUR ---
MS/SHADE CLOTH FINISHER NOTES Patient picked up by ambulance at 1625, remains stable, VSS, A&O x1 with confusion. Despite confusion, explained discharge instructions and plan of care. Breathing even and non-labored on RA, no SOB noted. No cardiac distress noted. Patient denies any pain/discomfort upon discharge. Skin is intact, no impairments noted. IV access on R FA #18 removed, with catheter intact. No infection, bleeding, or infiltration noted on the site. Sensation from all peripheral extremities intact. No belongings noted. Patient left safely with hospitalization documents.
== END 2020-05-28 16:35 | DRG 193 ==
LOC: ER 23:04 → TELE1 05-23 00:55 → MEDSG1 05-24 14:50 → MED 05-24 16:42
PROVIDERS: ADMIT Registered Nurse; ATTEND Registered Nurse
DX: J15.9 Unspecified bacterial pneumonia (principal); J96.01 Acute respiratory failure with hypoxia; G92 Toxic encephalopathy; E87.1 Hypo-osmolality and hyponatremia; M62.82 Rhabdomyolysis; F32.3 Major depressive disorder, single episode, severe with psychotic features; F05 Delirium due to known physiological condition; N17.9 Acute kidney failure, unspecified; F02.80 Dementia in other diseases classified elsewhere, unspecified severity, without behavioral disturbance, psychotic disturbance, mood disturbance, and anxiety; G30.9 Alzheimer's disease, unspecified; I10 Essential (primary) hypertension; N40.0 Benign prostatic hyperplasia without lower urinary tract symptoms; E78.5 Hyperlipidemia, unspecified; F32.9 Major depressive disorder, single episode, unspecified; Z87.01 Personal history of pneumonia (recurrent); F09 Unspecified mental disorder due to known physiological condition; R74.0 Nonspecific elevation of levels of transaminase and lactic acid dehydrogenase [LDH]; F39 Unspecified mood [affective] disorder; F01.50 Vascular dementia, unspecified severity, without behavioral disturbance, psychotic disturbance, mood disturbance, and anxiety; D64.9 Anemia, unspecified; Z79.4 Long term (current) use of insulin; E11.36 Type 2 diabetes mellitus with diabetic cataract; E86.9 Volume depletion, unspecified
CPT/HCPCS: 36415; 36600; 71045-TC; 80048-TC; 80053-TC; 80061-TC; 80076-TC; 80202-TC; 81000-TC; 82550-TC; 82553; 82728-TC; 82803-TC; 82962-TC; 83540-TC; 83605-TC; 83615-TC; 83735-TC; 83880; 84100-TC; 84443-TC; 84484-TC; 84550-TC; 85025-TC; 85378-TC; 86140-TC; 87040-TC; 87081-TC; 92611-TC; 93307-TC; 94799-TC; 97112-TC; 97530-TC; G0378; J0692; J0696; J1100; J1630; J1644; J1815; J2543; J3370; J3475; J3490; J7030; J7050; J7060; U0003-CS

== ENCOUNTER 2020-06-18 08:52 | Inpatient (IN) | payer MEDICARE, OTHER ==
[~2020-06-18] VITALS: Ht 180.3 cm; Wt 53.1 kg
[~2020-06-18 08:52] MED LIST: ACET325T53 PO; AMIN887L PO; ASPI-605 PO; CALC-883 PO; CLON0.1T PO; DOCU-141 PO; DONE10TA44 PO; FERR325T23 PO; HEPA50008 SQ; INSU100V39 SQ; INSU100V7 SQ; LINA5TAB PO; MAGN400O6 PO; MULT-439 PO; PRAV40TA3 PO; RISP1TAB7 PO; TAMS-12 PO; Zinc Sulfate PO
--- NOTE | 2020-06-18 08:52 | NUR ---
PT TATO Ruiz FROM [facility] FOR LOW 02 SAT AT 85% RA. PT IS AAOX1, NOTED RESPIRATORY DISTRESS, HOOKED TO O2 AT 15LPM VIA NB AND HOOKED TO HOLISTIC HEALTH PRACTITIONER, KEPT RESTED AND COMFORTABLE. WILL CONTINUE TO MONITOR.
--- NOTE | 2020-06-18 09:07 | NUR ---
SEEN AND EXAMINED BY .
[2020-06-18] MEDS ORDERED: ACETAMINOPHEN 650 MG/SUPP.RECT RC ONE ×2 (09:09→09:30)
--- NOTE | 2020-06-18 09:10 | NUR ---
IV LINE ESTABLISHED BLOOD DRAWN AND SENT TO LAB.
--- NOTE | 2020-06-18 09:15 | NUR ---
CALLED PHARMACY FOR ANTIBIOTIC.
--- NOTE | 2020-06-18 09:24 | NUR ---
MOVE SHEET TURNED IN.
[2020-06-18] MEDS ORDERED: VANCOMYCIN 1 GM in IV D5W 250 ML IV ONE (09:30)
[2020-06-18] MEDS ORDERED: IV NS 0.9% 1,000 ML IV ONE (09:30)
[2020-06-18] MEDS ORDERED: IV NS 0.9% 1,000 ML BAG IV ONE (09:30)
[2020-06-18] MEDS ORDERED: PIPERACILLIN /TAZOBACTAM 3.375 G in IV D5W 50 ML IV ONE (09:30)
--- NOTE | 2020-06-18 09:30 | NUR ---
COOLER MAN AT BEDSIDE FOR XRAY.
[2020-06-18 09:40] LABS: BASOPHILS % (AUTO) 0.4 % (0.0-2.0); EOSINOPHILS % (AUTO) 0.1 % (0.0-6.0); HEMATOCRIT 36 % (39-51); HEMOGLOBIN 11.3 g/dL (13.5-17.5); LYMPHOCYTES # (AUTO) 0.5 /CMM (0.8-4.8); LYMPHOCYTES % (AUTO) 6.4 % (20.0-44.0); MEAN CORPUSCULAR HGB CONC 32 g/dl (31.0-36.0); MEAN CORPUSCULAR VOLUME 82 fL (80-96); MONOCYTES # (AUTO) 0.6 /CMM (0.1-1.30); MONOCYTES % (AUTO) 6.9 % (2.0-12.0); NEUTROPHILS % (AUTO) 86.2 % (43.0-81.0); PLATELET COUNT (AUTO) 744 /CMM (150-450); RED BLOOD CELL COUNT(AUTO) 4.32 MIL/uL (4.5-6.0); WHITE BLOOD COUNT (AUTO) 8.2 K/uL (4.3-11.0)
[2020-06-18 09:45] LABS: BILIRUBIN,URINE NEGATIVE (NEGATIVE); BLOOD, URINE LARGE Ery/uL (NEGATIVE); COLOR,URINE RED (YELLOW); KETONES,URINE TRACE (NEGATIVE); LEUKOCYTE ESTERASE ,URINE TRACE (NEGATIVE); NITRITE, URINE POSITIVE (NEGATIVE); PH,URINE 7.5 (5.0-8.0); PROTEIN,URINE 100 mg/dl (NEGATIVE); UGLUCOSE NEGATIVE (NEGATIVE)
--- NOTE | 2020-06-18 09:45 | NUR ---
PATIENT'S OXYGEN CHANGED TO 4LPM VIA NC WITH O2 SAT OF 96%.
[2020-06-18 09:51] LABS: CALCIUM, SERUM 8.7 mg/dL (8.5-10.1); CARBON DIOXIDE 32 mmol/L (21-32); CHLORIDE 104 mmol/L (98-107); CREATININE 0.8 mg/dL (0.6-1.3); POTASSIUM 4.3 mmol/L (3.5-5.1); SODIUM SERUM 137 mmol/L (136-145); UREA NITROGEN, BLOOD 30 mg/dL (7-18)
[2020-06-18 09:52] LABS: GLUCOSE 376 mg/dL (74-106)
[2020-06-18 10:04] LABS: ALANINE AMINOTRANSFERASE 25 U/L (12-78); ALBUMIN 2.3 g/dL (3.4-5.0); ALKALINE PHOSPHATASE 77 U/L (46-116); ASPARTATE AMINOTRANSFERASE 28 U/L (15-37); B-TYPE NATRIURETIC PEPTIDE 312 PG/ML (0-125); BILIRUBIN,DIRECT 0.1 mg/dL (0.0-0.2); BILIRUBIN,TOTAL 0.4 mg/dL (0.2-1.0)
[2020-06-18 10:12] LABS: RBC,URINE TOO NUMEROUS TO COUN /HPF (0-2)
[2020-06-18 10:15] LABS: BACTERIA,URINE Few /HPF (None Seen); SQUAMOUS EPITHELIAL CELL,UR Rare /HPF (None Seen)
[2020-06-18 10:16] LABS: URINE AMORPHOUS PHOSPHATES Moderate /HPF (None Seen)
[2020-06-18 10:18] LABS: APPEARANCE,URINE CLOUDY (CLEAR)
--- NOTE | 2020-06-18 10:38 | NUR ---
CALLED LAB FOR COVID KIT.
--- NOTE | 2020-06-18 11:02 | NUR ---
2 COVID SWAB SENT.
--- NOTE | 2020-06-18 11:07 | NUR ---
ROOM GIVEN 111-1
[2020-06-18] MEDS ORDERED: DEXA6TAB6 PO (11:15)
[2020-06-18] MEDS ORDERED: PANT40TA2 PO (11:15)
[2020-06-18] MEDS ORDERED: HYDR453.3 TP (11:15)
--- NOTE | 2020-06-18 11:24 | NUR ---
REPORT GIVEN TO SHEILA MONET.
[2020-06-18] MEDS ORDERED: MAGNESIUM HYDROXIDE 30 ML UDC PO PRN ×2 (11:30)
[2020-06-18] MEDS ORDERED: ACETAMINOPHEN 325 MG TABLET PO PRN (11:30)
[2020-06-18] MEDS ORDERED: MAG HYDROX/AL HYDROX/SIMETH 30 ML UDC PO PRN (11:30)
[2020-06-18] MEDS ORDERED: CLONIDINE HCL 0.1 MG TABLET PO PRN (11:30)
[2020-06-18] MEDS ORDERED: HYDROCODONE/APAP 5/325MG TABLET PO PRN (11:30)
[2020-06-18] MEDS ORDERED: Z GUARD REMEDY 2 OZ OINT TP PRN (11:30)
[2020-06-18] MEDS ORDERED: DEXTROSE 50%-WATER 50 ML DISP.SYRIN IV PRN (11:30)
[2020-06-18] MEDS ORDERED: ONDANSETRON HCL/PF 4 MG/2 ML VIAL IVP PRN (11:30)
--- NOTE | 2020-06-18 11:55 | NUR ---
Patient transferred to room 116-1 via acls protocol. No distress noted, endorsed to Cande MONET.
--- NOTE | 2020-06-18 12:00 | NUR ---
BINDING NICKER/MI NOTE RECEIVED REPORT FROM ER NURSE. PT CAME FROM ER VIA GURNEY. PT IS IN STABLE CONDITION. PT ON 3L OF OXYGEN VIA N/C SATURATING AT 98%. SKIN INTACT WITH REDNESS NOTED ON SACRAL AREA. NO ACUTE DISTRESS OR SOB NOTED. PT ON TELE MONITORING WITH SINUS RHYTHM HR 75. ALL SAFETY PRECAUTIONS FOLLOWED PER COVID 19 DIAGNOSIS. PT CAME TO THE FLOOR WITH A DUENAS. DUENAS CARE PROVIDED. CALL LIGHT WITHIN REACH AND FUNCTIONING. BED LOCKED AND IN LOWEST POSITION. WILL CONTINUE TO MONITOR AND ASSESS PT.
--- NOTE | 2020-06-18 12:00 | NUR ---
A Male 70 years old admitted to room 116-1 from ER via rney patient awake and alert x1 vitals taken and recorded DX of sepsis WBC 8.2. hep lock in place with no signs of redness or swelling noted. body checked with RN primary nurse SHEILA , NO OPEN area noted redness on coccyx area picture's taken COVID RAPID Negative and PCR on pending aguiar catheter in place with draining clear yellow urine noted to gravity. will continue to assess and evaluate call light with in reach
[2020-06-18] MEDS: ENOXAPARIN SODIUM 40 MG/0.4 ML DISP.SYRIN SQ SCH (12:36)
[2020-06-18] MEDS: DEXAMETHASONE SOD PHOSPHATE 10 MG/ML VIAL IV SCH (12:36)
[2020-06-18] MEDS: risperiDONE 1 MG TABLET PO SCH ×2 (12:37→16:33)
[2020-06-18] MEDS: BLOOD SUGAR DIAGNOSTIC 1 EACH STRIP VI SCH ×3 (12:59→23:16)
[2020-06-18] MEDS: IV 1/2NS 1000 ML 1,000 ML IV PRN (13:04)
[2020-06-18] MEDS: INSULIN REGULAR, HUMAN 100 UNIT/ML 3 ML VIAL SQ PRN (13:10)
[2020-06-18 15:59] VITALS: BP 102/55
[2020-06-18] MEDS: PIPERACILLIN /TAZOBACTAM 3.375 G in IV D5W 100 ML IV SCH ×2 (16:22→22:56)
[2020-06-18] MEDS: DOCUSATE SODIUM 100 MG CAPSULE PO SCH (16:33)
[2020-06-18] MEDS: *INSULIN REGULAR(HUMULIN R)HUM 100 UNIT/ML VIAL SQ PRN ×2 (16:47→23:17)
--- NOTE | 2020-06-18 19:19 | NUR ---
PILE OPERATOR/MI CLOSING NOTE. PT IS CURRENTLY IN BED, AWAKE AND ALERT X1. PT IS CONFUSED. PT IS IN STABLE CONDITION AT THIS TIME WITH NO ACUTE DISTRESS OR SOB NOTED. HOB ELEVATED TOLERATED. PT'S SKIN IS INTACT WITH REDNESS ON SACRAL NOTED. CALL LIGHT WITHIN REACH AND FUNCTIONING. BED LOCKED AND IN LOWEST POSITION. WILL ENDORSE TO NEXT SHIFT NURSE FOR DENG.
[2020-06-18 20:00] VITALS: BP 110/57
--- NOTE | 2020-06-18 20:11 | NUR ---
PRIMER WATERPROOFING MACHINE ADJUSTER OPENING NOTES PATIENT SLEEPING IN BED. A/OX1. ON 4L NC, NO S/S OF ACUTE RESPIRATORY DISTRESS; BREATHING IS EVEN AND UNLABORED, CONTINUOUS SPO2 99%. NO S/S OF PAIN NOTED. TELE MONITOR READING NSR, HEART RATE 66. IV PRESENT ON FA, SIZE 18, INTACT PATENT, HEP LOCKED. IV PRESENT ON LEFT HAND, SIZE 20, INTACT & PATENT, HEP LOCKED. CONTACT/DROPLET ISOLATION IN PLACE FOR POSITIVE COVID 19. SAFETY MEASURES IN PLACE AND PATIENT'S NEEDS MET. BED LOCKED, ALARM ON, SIDE RAILS X2, HOB ELEVATED, SIDE RAILS X3, CALL LIGHT WITHIN REACH. WILL CONTINUE TO MONITOR.
[2020-06-18] MEDS: ATORVASTATIN 10 MG TABLET PO SCH (22:48)
[2020-06-18] MEDS: TAMSULOSIN 0.4 MG CAP.SR.24H PO SCH (22:48)
[2020-06-19] VITALS: BP 105/49
[2020-06-19 04:00] VITALS: BP 114/66
[2020-06-19] MEDS: PIPERACILLIN /TAZOBACTAM 3.375 G in IV D5W 100 ML IV SCH ×3 (06:30→22:04)
--- NOTE | 2020-06-19 06:49 | NUR ---
CLINICAL REHABILITATION LIAISON CLOSING NOTES PATIENT SLEEPING. A/OX1. ON 4L NC, NO S/S OF ACUTE RESPIRATORY DISTRESS; BREATHING IS EVEN AND UNLABORED, PO2 98-100%. NO S/S OF PAIN NOTED. TELE MONITOR READING SINUS LATOYA, HEART RATE 56. IV ON LEFT WRIST, SIZE 18, INTACT PATENT, WITH ZOSYN RUNNING AT 25ML/HR. IV PRESENT ON LEFT HAND, SIZE 20, INTACT & PATENT, HEP LOCKED. SAFETY MEASURES IN PLACE AND PATIENT'S NEEDS MET. BED LOCKED, ALARM ON, SIDE RAILS X2, HOB ELEVATED, SIDE RAILS X3, CALL LIGHT WITHIN REACH. WILL ENDORSE TO DAY SHIFT RN PLAN OF CARE.
[2020-06-19 07:07] LABS: BASOPHILS % (AUTO) 0.1 % (0.0-2.0); EOSINOPHILS % (AUTO) 0.2 % (0.0-6.0); HEMATOCRIT 39 % (39-51); HEMOGLOBIN 12.5 g/dL (13.5-17.5); LYMPHOCYTES # (AUTO) 0.3 /CMM (0.8-4.8); LYMPHOCYTES % (AUTO) 3.8 % (20.0-44.0); MEAN CORPUSCULAR HGB CONC 32 g/dl (31.0-36.0); MEAN CORPUSCULAR VOLUME 83 fL (80-96); MONOCYTES # (AUTO) 0.3 /CMM (0.1-1.30); NEUTROPHILS # (AUTO) 8.6 /CMM (1.8-8.9); NEUTROPHILS % (AUTO) 92.9 % (43.0-81.0); PLATELET COUNT (AUTO) 592 /CMM (150-450); RED BLOOD CELL COUNT(AUTO) 4.69 MIL/uL (4.5-6.0); WHITE BLOOD COUNT (AUTO) 9.2 K/uL (4.3-11.0)
--- NOTE | 2020-06-19 07:20 | NUR ---
RN NOTES RECEIVED PATIENT SLEEPING IN BED. A/OX1. ON 4L NC, NO S/S OF RESPIRATORY DISTRESS. BREATHING IS EVEN AND UNLABORED, ON CONTINUOUS SPO2 99%. TELE MONITOR READING NSR, HEART RATE 66. NOTED IV ACCESS ON FA, SIZE 18, INTACT PATENT, HEP LOCKED. IV PRESENT ON LEFT HAND, SIZE 20, INTACT & PATENT, HEP LOCKED. SAFETY MEASURES IN PLACE BED IS LOCKED AND IN LOWEST , ALARM ON, SIDE RAILS X2, HOB ELEVATED, SIDE RAILS X3, CALL LIGHT WITHIN REACH. WILL CONTINUE TO MONITOR.
[2020-06-19] MEDS: risperiDONE 1 MG TABLET PO SCH ×3 (07:39→16:04)
[2020-06-19] MEDS: BLOOD SUGAR DIAGNOSTIC 1 EACH STRIP VI SCH ×6 (07:49→23:28)
[2020-06-19] MEDS: INSULIN REGULAR, HUMAN 100 UNIT/ML 3 ML VIAL SQ PRN ×2 (08:08→17:32)
[2020-06-19 08:17] LABS: CALCIUM, SERUM 9.2 mg/dL (8.5-10.1); CREATININE 0.6 mg/dL (0.6-1.3); PHOSPHORUS 3.3 mg/dL (2.5-4.9); POTASSIUM 4.3 mmol/L (3.5-5.1)
[2020-06-19] MEDS: ASPIRIN EC 81 MG TABLET.DR PO SCH (08:46)
[2020-06-19] MEDS: DEXAMETHASONE SOD PHOSPHATE 10 MG/ML VIAL IV SCH (08:46)
[2020-06-19] MEDS: PANTOPRAZOLE 40 MG TABLET.DR PO SCH (08:46)
[2020-06-19] MEDS: ENOXAPARIN SODIUM 40 MG/0.4 ML DISP.SYRIN SQ SCH (08:48)
[2020-06-19] MEDS: HYDROCORTISONE 2.5% CREAM 28.4 GM TUBE TP SCH (08:50)
[2020-06-19] MEDS: DOCUSATE SODIUM 100 MG CAPSULE PO SCH ×2 (08:51→16:04)
[2020-06-19] MEDS: *INSULIN REGULAR(HUMULIN R)HUM 100 UNIT/ML VIAL SQ PRN ×2 (12:18→23:26)
--- NOTE | 2020-06-19 18:25 | NUR ---
RN CLOSING NOTES WILL ENDORSE PT TO PM NURSE FOR DENG. PATIENT IS COMFORTABLE IN BED. A/OX1. ON 4L NC SATURATING AT 99%, NO S/S OF RESPIRATORY DISTRESS. BREATHING IS EVEN AND UNLABORED, ON . TELE MONITOR READING NSR, HEART RATE 78. IV ACCESS ON FA, SIZE 18, INTACT PATENT IV PRESENT ON LEFT HAND, SIZE 20, INTACT & PATENT SAFETY MEASURES IN PLACE BED IS LOCKED AND IN LOWEST , ALARM ON, SIDE RAILS X2, HOB ELEVATED, SIDE RAILS X3, CALL LIGHT WITHIN REACH.
[2020-06-19] MEDS: TAMSULOSIN 0.4 MG CAP.SR.24H PO SCH (22:01)
[2020-06-19] MEDS: ATORVASTATIN 10 MG TABLET PO SCH (22:02)
[2020-06-19] MEDS: IV 1/2NS 1000 ML 1,000 ML IV PRN (22:53)
--- NOTE | 2020-06-20 02:00 | NUR ---
RN OPENING NOTE RECEIVED PT IN THE BED. PT IS CONFUSED. ON 4L VIA NC SATING 97%. PT ON TELE MONITOR SHOWING SB IN 50S.PT HAS L FOREARM 18G I/2 NS RUNNING AT 75 ML/HAND LEFT HAND 20G . SAFETY MEASURES IMPLEMENTED, BED AT LOWEST POSITION, LOCKED, SIDE RAILS UPX2, CALL LIGHT WITHIN REACH. WILL CONTINUE TO MONITOR .
[2020-06-20 04:00] VITALS: BP 114/59
--- NOTE | 2020-06-20 07:00 | NUR ---
RN CLOSING NOTE PT REMAINED STABLE DURING MY SHIFT.REPORT GIVEN TO INCOMING SHIFT FOR DENG.
[2020-06-20] MEDS: PIPERACILLIN /TAZOBACTAM 3.375 G in IV D5W 100 ML IV SCH ×3 (07:36→22:01)
--- NOTE | 2020-06-20 07:49 | NUR ---
PARKING LOT SPOTTER/MI OPENING NOTE RECEIVED PT ON BED, AWAKE, ALERT AND ORIENTED X1 WITH CONFUSION. PT IS ON 4L OF OXYGEN VIA N/C SATURATING AT 98% AT THIS TIME. PT IS IN STABLE CONDITION WITH NO ACUTE DISTRESS OR SOB NOTED AT THIS TIME. PT'S HOB ELEVATED TOLERATED. PT IS ON TELE MONITORING WITH SINUS RHYTHM HR 67 YENNI THIS TIME. PT'S SKIN IS INTACT WITH SACRAL REDNESS THAT IS BLANCHABLE. PT HAS A LEFT FOREARM 18' AND LEFT HAND 20' INTACT, PATENT AND FLUSHING WELL. ALL PRECAUTIONS TAKEN AND IMPLEMENTED PER COVID-19 DIAGNOSIS. CALL LIGHT WITHIN REACH AND FUNCTIONING. BED LOCKED AND IN LOWEST POSITION. WILL CONTINUE TO MONITOR AND ASSESS PT.
[2020-06-20] MEDS: ASPIRIN EC 81 MG TABLET.DR PO SCH (08:02)
[2020-06-20] MEDS: DOCUSATE SODIUM 100 MG CAPSULE PO SCH ×2 (08:02→16:15)
[2020-06-20] MEDS: risperiDONE 1 MG TABLET PO SCH ×3 (08:03→16:15)
[2020-06-20] MEDS: PANTOPRAZOLE 40 MG TABLET.DR PO SCH (08:03)
[2020-06-20] MEDS: DEXAMETHASONE SOD PHOSPHATE 10 MG/ML VIAL IV SCH (08:04)
[2020-06-20] MEDS: ENOXAPARIN SODIUM 40 MG/0.4 ML DISP.SYRIN SQ SCH (08:10)
[2020-06-20] MEDS: HYDROCORTISONE 2.5% CREAM 28.4 GM TUBE TP SCH (08:49)
[2020-06-20 09:00] VITALS: BP 112/59
[2020-06-20] MEDS: BLOOD SUGAR DIAGNOSTIC 1 EACH STRIP VI SCH ×3 (11:42→21:25)
[2020-06-20] MEDS: INSULIN REGULAR, HUMAN 100 UNIT/ML 3 ML VIAL SQ PRN ×2 (11:45→17:45)
--- NOTE | 2020-06-20 11:50 | NUR ---
RN NOTE SPOKE TO (YESIKA) AND UPDATED HER ON THE PT'S CONDITION AND CURRENT SITUATION. VERBALIZED UNDERSTANDING. WOULD LIKE TO SPEAK TO THE DOCTOR ABOUT HER 'S CONDITION. INFORMED CHARGE NURSE AND DOCTOR. SPOKE TO PT'S WHO EXPRESSED TO ME HER DESIRE TO SPEAK TO THE PT HER . CONNECTED PHONE IN PT'S ROOM AND DIALED BACK . PT AND (YESIKA) WERE ABLE TO SPEAK ON THE PHONE. WILL CONTINUE TO MONITOR AND ASSESS PT.
[2020-06-20 13:00] VITALS: BP 131/67
[2020-06-20] MEDS: IV 1/2NS 1000 ML 1,000 ML IV PRN (13:05)
[2020-06-20 16:00] VITALS: BP 106/84
--- NOTE | 2020-06-20 18:50 | NUR ---
OFFICE HELPER CLERICAL/MI CLOSING NOTE PT IS CURRENTLY IN BED, AWAKE AND ALERT WITH CONFUSION. PT IS FARSI SPEAKING. PT ON TELE MONITORING WITH SINUS RHYTHM NOTED THROUGH OUT SHIFT HR 82 AT THIS TIME. NO ACUTE DISTRESS OR SOB NOTED THROUGH OUT SHIFT. PT HAS A DUENAS THAT IS INTACT, PATENT AND DRAINING WELL VIA GRAVITY. PT NEEDS HELP WITH FEEDING. PT HAS A LEFT FOREARM 18' AND LEFT HAND 20' INTACT AND PATENT. SCHEDULED MEDS GIVEN AND TOLERATED WELL. PT IS ON OXYGEN 4L VIA N/C SATURATING AT 99% AT THIS TIME. PT IS IN STABLE CONDITION CURRENTLY CALL LIGHT WITHIN REACH AND FUNCTIONING. BED LOCKED AND IN LOWEST POSITION. WILL ENDORSE TO NEXT SHIFT NURSE FOR DENG.
--- NOTE | 2020-06-20 19:35 | NUR ---
CUSTOM STUDIO COORDINATOR NOTES PATIENT IN BED, AWAKE, CONFUSED. SPEAKING FARSI. BREATHING EVEN AND UNLABORED ON 4L NC. SHOWS NO SIGNS OF ACUTE RESPIRATORY DISTRESS, NO ACUTE PAIN. TELE MONITOR SR/SB. IV ON L FA 18G AND HAND HAND 20G RUNNING 1/2 NS AT 75ML/HR. SHOWS NO SIGNS OF INFILTRATION, NO REDNESS. SAFETY PRECAUTIONS IN PLACE. BED IN LOWEST POSITION, LOCKED, AND CALL LIGHT KEPT WITHIN REACH. WILL CONTINUE TO MONITOR.
[2020-06-20 20:00] VITALS: BP 120/70
[2020-06-20] MEDS: TAMSULOSIN 0.4 MG CAP.SR.24H PO SCH (21:25)
[2020-06-20] MEDS: ATORVASTATIN 10 MG TABLET PO SCH (21:25)
[2020-06-20] MEDS: *INSULIN REGULAR(HUMULIN R)HUM 100 UNIT/ML VIAL SQ PRN (21:44)
[2020-06-21] VITALS: BP 136/76
[2020-06-21 04:00] VITALS: BP 132/74
[2020-06-21] MEDS: PIPERACILLIN /TAZOBACTAM 3.375 G in IV D5W 100 ML IV SCH ×2 (06:22→14:36)
[2020-06-21] MEDS: IV 1/2NS 1000 ML 1,000 ML IV PRN (06:29)
[2020-06-21 06:40] LABS: EOSINOPHILS % (AUTO) 0.3 % (0.0-6.0); HEMATOCRIT 35 % (39-51); HEMOGLOBIN 11.4 g/dL (13.5-17.5); LYMPHOCYTES # (AUTO) 0.4 /CMM (0.8-4.8); LYMPHOCYTES % (AUTO) 3.8 % (20.0-44.0); MEAN CORPUSCULAR HGB CONC 33 g/dl (31.0-36.0); MEAN CORPUSCULAR VOLUME 82 fL (80-96); MONOCYTES # (AUTO) 0.5 /CMM (0.1-1.30); MONOCYTES % (AUTO) 4.9 % (2.0-12.0); NEUTROPHILS # (AUTO) 8.9 /CMM (1.8-8.9); PLATELET COUNT (AUTO) 520 /CMM (150-450); RED BLOOD CELL COUNT(AUTO) 4.26 MIL/uL (4.5-6.0); WHITE BLOOD COUNT (AUTO) 9.8 K/uL (4.3-11.0)
--- NOTE | 2020-06-21 06:44 | NUR ---
TOOL GRINDER OPERATOR EXTERNAL NOTES PATIENT IN BED, ASLEEP, CONFUSED. SPEAKING FARSI. BREATHING EVEN AND UNLABORED ON 4L NC. SHOWS NO SIGNS OF ACUTE RESPIRATORY DISTRESS, NO ACUTE PAIN. TELE MONITOR SR/SB. IV ON L FA 18G AND HAND HAND 20G RUNNING 1/2 NS AT 75ML/HR. SHOWS NO SIGNS OF INFILTRATION, NO REDNESS. ALL DUE MEDICATIONS GIVEN. SAFETY PRECAUTIONS IN PLACE. BED IN LOWEST POSITION, LOCKED, AND CALL LIGHT KEPT WITHIN REACH. WILL ENDORSE TO ONCOMING NURSE.
[2020-06-21 06:45] LABS: CALCIUM, SERUM 8.8 mg/dL (8.5-10.1); CARBON DIOXIDE 24 mmol/L (21-32); CHLORIDE 98 mmol/L (98-107); CREATININE 0.4 mg/dL (0.6-1.3); GLUCOSE 150 mg/dL (74-106); POTASSIUM 3.5 mmol/L (3.5-5.1); SODIUM SERUM 134 mmol/L (136-145); UREA NITROGEN, BLOOD 15 mg/dL (7-18)
--- NOTE | 2020-06-21 07:35 | NUR ---
RN OPENING NOTES Received pt in bed, A/O x2, Farsi speaker, on nasal canula of 4L, SPO2 is 98%, no s/sx of SOB, or distress noted, Patient is on tele-monitor showing SR/SB;Valero cath in place, draining clear yellow urine by gravity, IV lines noted on L FA running 1/2 NS @ 75 cc/hr, and R Hand running Zosyn @25 cc/hr, intact and patent. Safety measures implemented, HOB elevated, bed in lowest position call light in reach , will cont to monitor
[2020-06-21] MEDS: risperiDONE 1 MG TABLET PO SCH ×3 (07:39→17:24)
[2020-06-21] MEDS: BLOOD SUGAR DIAGNOSTIC 1 EACH STRIP VI SCH ×4 (07:39→21:18)
[2020-06-21 08:00] VITALS: BP 112/65
--- NOTE | 2020-06-21 08:15 | NUR ---
WOUND CARE CONSULT: REVIEWED CHART, NURSING DOCUMENTATION AND PHOTO WHICH INDICATES INTACT DEEP TISSUE INJURY TO SACRUM, PRESENT ON ADMISSION. RECOMMENDATIONS MADE FOR SKIN PROTECTION. DISCUSSED WITH NURSING STAFF. PT IS ON [facility] LOW AIRLOSS BED. MD IN AGREEMENT WITH PLAN OF CARE.
[2020-06-21] MEDS: DEXAMETHASONE SOD PHOSPHATE 10 MG/ML VIAL IV SCH (09:09)
[2020-06-21] MEDS: PANTOPRAZOLE 40 MG TABLET.DR PO SCH (09:09)
[2020-06-21] MEDS: ASPIRIN EC 81 MG TABLET.DR PO SCH (09:09)
[2020-06-21] MEDS: DOCUSATE SODIUM 100 MG CAPSULE PO SCH ×2 (09:10→17:24)
[2020-06-21] MEDS: ENOXAPARIN SODIUM 40 MG/0.4 ML DISP.SYRIN SQ SCH (09:11)
[2020-06-21] MEDS: INSULIN REGULAR, HUMAN 100 UNIT/ML 3 ML VIAL SQ PRN ×2 (09:13→12:46)
[2020-06-21] MEDS: HYDROCORTISONE 2.5% CREAM 28.4 GM TUBE TP SCH (09:14)
[2020-06-21] MEDS ORDERED: FUROSEMIDE 40 MG/4 ML VIAL IV ONE (11:00)
--- NOTE | 2020-06-21 11:00 | NUR ---
Placed order for DVT pump device
[2020-06-21 12:00] VITALS: BP 99/55
[2020-06-21 16:00] VITALS: BP 104/60
[2020-06-21] MEDS: *INSULIN REGULAR(HUMULIN R)HUM 100 UNIT/ML VIAL SQ PRN ×2 (18:02→21:17)
--- NOTE | 2020-06-21 19:30 | NUR ---
RN CLOSING NOTES Patient remains in bed, tolerating settings well, no s/sx of acute distress, SOB noted; IV l9nes intact, Valero in place. All meds are given, comfort needs met, safety measures implemented, call light in reach, bed in lowest position, will endorse to PM shift RN for DENG
--- NOTE | 2020-06-21 19:30 | NUR ---
RN PM OPENING NOTES PT IN BED IN NO APPARENT DISTRESS. RESPE EVEN AND UNLABORED. IV INTACT PATIENT IS HEPLOCKED. BED IN LOW LOCKED POSITION, CALL LIGHT WITHIN REACH. IV LINES INTACT WITH NO S/S OF INFILTRATION BED IN LOW LOCKED POSITION. TELE MONITOR READING SINUS LATOYA IN 50'S WILL CONT TO MONITOR.
[2020-06-21 20:00] VITALS: BP 109/66
[2020-06-21] MEDS: TAMSULOSIN 0.4 MG CAP.SR.24H PO SCH (21:18)
[2020-06-21] MEDS: LEVOFLOXACIN (500MG) 500 MG TABLET PO SCH (21:18)
[2020-06-21] MEDS: ATORVASTATIN 10 MG TABLET PO SCH (21:18)
[2020-06-22] VITALS: BP 113/66
--- NOTE | 2020-06-22 02:00 | NUR ---
SCD MACHINE LOCATED AND APPLIED TO BLE. PT IS ON ISOFLEX AIR MATTRESS.
[2020-06-22 04:00] VITALS: BP 124/61
--- NOTE | 2020-06-22 07:25 | NUR ---
RN OPENING NOTES: RECEIVED PATIENT IN BED SLEEPING. PT ON TELE MONITOR SINUS LATOYA 50-60, 2L, O2 98%. NO SIGNS OF ANY RESPIRATORY DISTRESS, SOB, DIFFICULTY OF BREATHING, NO SIGNS OF ANY PAIN. DUENAS CATH IN PLACE, PATIENT HAS SLIGHT SACRAL REDNESS, IV LFA #18, LHAND #20. PATIENTS SAFETY MEASURES MAINTAINED, CALL LIGHT WITHIN REACH, WILL CONTINUE TO MONITOR.
[2020-06-22] MEDS: BLOOD SUGAR DIAGNOSTIC 1 EACH STRIP VI SCH ×3 (07:36→17:46)
[2020-06-22 08:00] VITALS: BP 99/61
[2020-06-22] MEDS: risperiDONE 1 MG TABLET PO SCH ×3 (08:28→17:06)
[2020-06-22] MEDS: ENOXAPARIN SODIUM 40 MG/0.4 ML DISP.SYRIN SQ SCH (08:31)
[2020-06-22] MEDS: DEXAMETHASONE SOD PHOSPHATE 10 MG/ML VIAL IV SCH (08:32)
[2020-06-22] MEDS: PANTOPRAZOLE 40 MG TABLET.DR PO SCH (08:32)
[2020-06-22] MEDS: ASPIRIN EC 81 MG TABLET.DR PO SCH (08:32)
[2020-06-22 08:40] LABS: BASOPHILS % (AUTO) 0.1 % (0.0-2.0); EOSINOPHILS % (AUTO) 0.5 % (0.0-6.0); HEMATOCRIT 33 % (39-51); HEMOGLOBIN 10.9 g/dL (13.5-17.5); LYMPHOCYTES # (AUTO) 0.3 /CMM (0.8-4.8); MEAN CORPUSCULAR HGB CONC 33 g/dl (31.0-36.0); MEAN CORPUSCULAR VOLUME 81 fL (80-96); MONOCYTES # (AUTO) 0.6 /CMM (0.1-1.30); MONOCYTES % (AUTO) 6.4 % (2.0-12.0); NEUTROPHILS # (AUTO) 7.8 /CMM (1.8-8.9); PLATELET COUNT (AUTO) 472 /CMM (150-450); WHITE BLOOD COUNT (AUTO) 8.8 K/uL (4.3-11.0)
[2020-06-22 08:51] LABS: CALCIUM, SERUM 8.6 mg/dL (8.5-10.1); CARBON DIOXIDE 28 mmol/L (21-32); CHLORIDE 99 mmol/L (98-107); CREATININE 0.5 mg/dL (0.6-1.3); GLUCOSE 144 mg/dL (74-106); POTASSIUM 3.9 mmol/L (3.5-5.1); SODIUM SERUM 135 mmol/L (136-145); UREA NITROGEN, BLOOD 19 mg/dL (7-18)
[2020-06-22] MEDS: DOCUSATE SODIUM 100 MG CAPSULE PO SCH ×2 (09:03→17:06)
[2020-06-22] MEDS: HYDROCORTISONE 2.5% CREAM 28.4 GM TUBE TP SCH (09:05)
[2020-06-22 12:00] VITALS: BP 111/57
[2020-06-22] MEDS: INSULIN REGULAR, HUMAN 100 UNIT/ML 3 ML VIAL SQ PRN ×2 (12:18→17:48)
[2020-06-22 16:00] VITALS: BP 111/57
--- NOTE | 2020-06-22 18:09 | NUR ---
RN CLOSING NOTES: PATIENT IN BED AWAKE. NO ACUTE CHANGES THROUGHOUT THE SHIFT, NC 2L O2 98%, TOLERATING WELL. NO SIGNS OF ANY RESPIRATORY DISTRESS, SOB, DIFFICULTY BREATHING OR ANY PAIN. PATIENTS IV PATENT INTACT AND FLUSHED WELL. ALL COMFORT MEASURES, AND SAFETY MEASURERS MAINTAINED, CALL LIGHT WITHIN REACH, WILL ENDORSE TO THE PM SHIFT NURSE FOR CONTINUATION OF CARE. Addendum: 06/22/20 at 1814 by KULDIP TANG RN PATIENT ON RA TOLERATING WELL.
[2020-06-22 20:00] VITALS: BP 105/63
[2020-06-22] MEDS: TAMSULOSIN 0.4 MG CAP.SR.24H PO SCH (22:49)
[2020-06-22] MEDS: LEVOFLOXACIN (500MG) 500 MG TABLET PO SCH (22:49)
[2020-06-22] MEDS: ATORVASTATIN 10 MG TABLET PO SCH (22:49)
[2020-06-23] VITALS: BP 121/69
[2020-06-23] MEDS: BLOOD SUGAR DIAGNOSTIC 1 EACH STRIP VI SCH ×4 (00:12→17:18)
[2020-06-23 04:00] VITALS: BP 96/58
--- NOTE | 2020-06-23 07:42 | NUR ---
RN OPENING NOTES: RECEIVED PT IN BED SLEPPING, NO SIGNS OF ANY RESPIRATORY DISTRESS, SOB, DIFFICULTY BREATHING OBSERVED, PATIENT DID NOT SHOW ANY SIGNS OF ANY PAIN. PT ON TELE MONITOR SR-SB 59-60S. PATIENTS IV LFA #18, LHAND #20, INTACT, PATENT WELL FLUSHED. PATIENTS SAFETY MEASURES MAINTAINED CALL LIGHT WITHIN REACH WILL CONTINUE TO MONITOR.
[2020-06-23 08:00] VITALS: BP 112/63
[2020-06-23] MEDS: risperiDONE 1 MG TABLET PO SCH ×3 (08:14→17:18)
[2020-06-23] MEDS: ENOXAPARIN SODIUM 40 MG/0.4 ML DISP.SYRIN SQ SCH (08:15)
[2020-06-23] MEDS: ASPIRIN EC 81 MG TABLET.DR PO SCH (08:15)
[2020-06-23] MEDS: PANTOPRAZOLE 40 MG TABLET.DR PO SCH (08:16)
[2020-06-23] MEDS: DEXAMETHASONE SOD PHOSPHATE 10 MG/ML VIAL IV SCH (08:23)
[2020-06-23] MEDS: DOCUSATE SODIUM 100 MG CAPSULE PO SCH ×2 (08:23→17:18)
[2020-06-23] MEDS: INSULIN REGULAR, HUMAN 100 UNIT/ML 3 ML VIAL SQ PRN ×2 (08:44→12:32)
[2020-06-23] MEDS: HYDROCORTISONE 2.5% CREAM 28.4 GM TUBE TP SCH (09:46)
[2020-06-23] MEDS ORDERED: DEXA6TAB6 PO (11:48)
[2020-06-23] MEDS ORDERED: HEPA50008 SQ (11:48)
[2020-06-23 12:00] VITALS: BP 93/51
--- NOTE | 2020-06-23 12:30 | NUR ---
RN NOTES SPOKE TO , UPDATE ON STATUS GIVEN. ALSO INFORMED ABOUT THE SCHEDULE DISCHARGE TODAY. ALSO ASKED IF HE WOULD WANT TO GET PNEUMONIA VACCINE BEFORE DISCHARGE BUT PER THE LATTER, SHE WOULD PREFER NOT AT THIS TIME THE PATIENT IS WEAK AND WOULD ASK THE NURSING FACILITY FOR THE VACCINE IN TIME
--- NOTE | 2020-06-23 13:00 | NUR ---
RN NOTES CALLED [facility] SPOKE TO CHIKI MORGAN. ALL DISCHARGE AND MEDICATION INSTRUCTION GIVEN TO CHIKI MORGAN. ALSO, EDDIE WITH REQUEST TO LEAVE IV ACCESS SITES AND DUENAS IN PLACE TILL THEY DETERMINE THE NECESSITY OF SUCH WHEN THE PATIENT GETS TO THEIR FACILITY
[2020-06-23 16:00] VITALS: BP 122/70
--- NOTE | 2020-06-23 17:00 | NUR ---
RN NOTES EMT TRANSFER FOR THE PATIENT IN THE UNIT. ALL DUE MEDICATION GIVEN. BLOOD SUGAR CHECK DONE. BLOOD SUGAR AT 334, SPECIFICALLY ENDORSED TO THE EMT TO INFORM CHIKI MORGAN ABOUT THE BLOOD SUGAR BUT NO COVERAGE WAS GIVEN THE PATIENT HAS NOT EAT DINNER YET
--- NOTE | 2020-06-23 17:20 | NUR ---
RN NOTES PATIENT WHEELED OUT OF THE UNIT VIA DINESH ACCOMPANIED BY 2 EMT. PATIENT ON STABLE CONDITION, NOT ON ANY FORM OF DISTRESS. NO INDICATION OF PAIN. ID BAND REMOVED. PAPER WORKS HANDED TO EMT. Addendum: 06/23/20 at 1731 by RIZWAN NGUYEN RN IV ACCESS AND DUENAS LEFT IN PLACE PER EDDIE'S REQUEST
== END 2020-06-23 17:39 | DRG 177 ==
LOC: ER 08:59 → TELE-TD 11:18 → TELE1 11:40
PROVIDERS: ADMIT Internal Medicine; ATTEND Internal Medicine
DX: U07.1 COVID-19 (principal); E11.00 Type 2 diabetes mellitus with hyperosmolarity without nonketotic hyperglycemic-hyperosmolar coma (NKHHC); J96.01 Acute respiratory failure with hypoxia; N17.0 Acute kidney failure with tubular necrosis; G93.41 Metabolic encephalopathy; J12.89 Other viral pneumonia; E43 Unspecified severe protein-calorie malnutrition; R64 Cachexia; Z68.1 Body mass index [BMI] 19.9 or less, adult; N39.0 Urinary tract infection, site not specified; J81.1 Chronic pulmonary edema; N40.0 Benign prostatic hyperplasia without lower urinary tract symptoms; I10 Essential (primary) hypertension; G30.9 Alzheimer's disease, unspecified; F02.80 Dementia in other diseases classified elsewhere, unspecified severity, without behavioral disturbance, psychotic disturbance, mood disturbance, and anxiety; E11.65 Type 2 diabetes mellitus with hyperglycemia; E88.09 Other disorders of plasma-protein metabolism, not elsewhere classified; E78.5 Hyperlipidemia, unspecified; F32.9 Major depressive disorder, single episode, unspecified; F41.9 Anxiety disorder, unspecified; D64.9 Anemia, unspecified; F09 Unspecified mental disorder due to known physiological condition; E11.36 Type 2 diabetes mellitus with diabetic cataract; Z79.4 Long term (current) use of insulin
CPT/HCPCS: 36415; 71045-TC; 80048-TC; 80076-TC; 81000-TC; 82962-TC; 83605-TC; 83735-TC; 83880; 84100-TC; 84484-TC; 85025-TC; 85378-TC; 85730-TC; 86140-TC; 87040-TC; 87086-TC; G0378; J1100; J1650; J1815; J2543; J3370; J3490; J7030; J7050; J7060; U0003-CS

== ENCOUNTER 2020-06-29 07:29 | Emergency (ER) | payer MEDICARE, MEDICAID ==
[~2020-06-29] VITALS: Ht 177.8 cm; Wt 51.7 kg
[~2020-06-29 07:29] MED LIST changes: -AMIN887L PO; +DEXA6TAB6 PO; -DONE10TA44 PO; -FERR325T23 PO; +HYDR453.3 TP; +PANT40TA2 PO; -Zinc Sulfate PO
--- NOTE | 2020-06-29 07:32 | NUR ---
PT TATO Ruiz FROM [facility] C/O MORE ALTERED THAN USUAL PER EMS. PT IS AAOX1, NOT IN RESPIRATORY DISTRESS, HOOKED TO SUPERVISOR AIRCRAFT CLEANING, KEPT RESTED AND COMFORTABLE. WILL CONTINUE TO MONITOR.
--- NOTE | 2020-06-29 07:40 | NUR ---
PT IV LINE ESTABLISHED BLOOD DRAWN AND SENT TO LAB.
--- NOTE | 2020-06-29 07:45 | NUR ---
CALLED MAIN LAB FOR COVID ANSLEY KIT.
--- NOTE | 2020-06-29 07:45 | NUR ---
URINE SPECIMEN COLLECTED AND SENT TO LAB.
--- NOTE | 2020-06-29 07:54 | NUR ---
TRACK BROOM OPERATOR AT BEDSIDE FOR XRAY.
[2020-06-29] MEDS ORDERED: ASCO-352 PO (08:23)
[2020-06-29] MEDS ORDERED: CRAN3875 PO (08:23)
[2020-06-29] MEDS ORDERED: CRAN425C6 PO (08:23)
[2020-06-29] MEDS ORDERED: HEPA50008 SQ (08:23)
[2020-06-29] MEDS ORDERED: RISP0.2515 PO (08:23)
[2020-06-29] MEDS ORDERED: BALS60OI4 TP (08:23)
[2020-06-29] MEDS ORDERED: ZINC220C6 PO (08:23)
[2020-06-29 08:24] LABS: BASOPHILS % (AUTO) 0.4 % (0.0-2.0); EOSINOPHILS % (AUTO) 0.9 % (0.0-6.0); HEMATOCRIT 42 % (39-51); HEMOGLOBIN 12.6 g/dL (13.5-17.5); LYMPHOCYTES # (AUTO) 0.7 /CMM (0.8-4.8); LYMPHOCYTES % (AUTO) 8.1 % (20.0-44.0); MEAN CORPUSCULAR HGB CONC 30 g/dl (31.0-36.0); MEAN CORPUSCULAR VOLUME 88 fL (80-96); MONOCYTES # (AUTO) 0.5 /CMM (0.1-1.30); MONOCYTES % (AUTO) 5.9 % (2.0-12.0); NEUTROPHILS % (AUTO) 84.7 % (43.0-81.0); PLATELET COUNT (AUTO) 312 /CMM (150-450); RED BLOOD CELL COUNT(AUTO) 4.71 MIL/uL (4.5-6.0); WHITE BLOOD COUNT (AUTO) 8.3 K/uL (4.3-11.0)
[2020-06-29 08:35] LABS: CALCIUM, SERUM 9.3 mg/dL (8.5-10.1); CARBON DIOXIDE 25 mmol/L (21-32); CHLORIDE 98 mmol/L (98-107); CREATININE 0.5 mg/dL (0.6-1.3); GLUCOSE 72 mg/dL (74-106); POTASSIUM 4.5 mmol/L (3.5-5.1); SODIUM SERUM 133 mmol/L (136-145); UREA NITROGEN, BLOOD 18 mg/dL (7-18)
[2020-06-29 08:41] LABS: ALANINE AMINOTRANSFERASE 19 U/L (12-78); ALBUMIN 2.6 g/dL (3.4-5.0); ALKALINE PHOSPHATASE 78 U/L (46-116); ASPARTATE AMINOTRANSFERASE 15 U/L (15-37); BILIRUBIN,DIRECT 0.1 mg/dL (0.0-0.2); BILIRUBIN,TOTAL 0.5 mg/dL (0.2-1.0); TOTAL PROTEIN, SERUM 6.8 g/dL (6.4-8.2)
[2020-06-29 08:49] LABS: BILIRUBIN,URINE NEGATIVE (NEGATIVE); BLOOD, URINE LARGE Ery/uL (NEGATIVE); COLOR,URINE YELLOW (YELLOW); KETONES,URINE NEGATIVE (NEGATIVE); LEUKOCYTE ESTERASE ,URINE TRACE (NEGATIVE); NITRITE, URINE NEGATIVE (NEGATIVE); PROTEIN,URINE NEGATIVE (NEGATIVE); UGLUCOSE NEGATIVE (NEGATIVE)
[2020-06-29 08:54] LABS: APPEARANCE,URINE SLIGHTLY CLOUDY (CLEAR)
[2020-06-29 09:04] LABS: LYMPHOCYTES % (MANUAL) 6 % (16-48); MONOCYTES % (MANUAL) 2 % (0-11.0); NEUTROPHILS % (MANUAL) 92 (42-76)
[2020-06-29 09:13] LABS: BACTERIA,URINE Rare /HPF (None Seen); RBC,URINE TOO NUMEROUS TO COUN /HPF (0-2); SQUAMOUS EPITHELIAL CELL,UR Rare /HPF (None Seen); URINE AMORPHOUS PHOSPHATES Few /HPF (None Seen)
[2020-06-29] MEDS: IV NS 0.9% 1,000 ML IV ONE (09:32)
[2020-06-29] MEDS ORDERED: CEFTRIAXONE 1GM BAG (ER ONLY) 50 ML IV ONE (09:33)
[2020-06-29] MEDS ORDERED: DEXAMETHASONE SOD PHOSPHATE 10 MG/ML VIAL ONE (09:33)
[2020-06-29] MEDS: DEXAMETHASONE SOD PHOSPHATE 10 MG/ML VIAL IV ONE (09:45)
[2020-06-29] MEDS: CEFTRIAXONE 1GM BAG (ER ONLY) 1 GM/50 ML PIGGYBACK IV ONE (09:45)
[2020-06-29] MEDS: AZITHROMYCIN 500 MG in IV D5W 250 ML IV ONE (09:45)
--- NOTE | 2020-06-29 10:15 | NUR ---
REPORT GIVEN TO EDIDE MONET AT [facility].
--- NOTE | 2020-06-29 10:22 | NUR ---
[facility] ETA 11:30AM.
--- NOTE | 2020-06-29 11:47 | NUR ---
Report given to certified green building engineer, patient a/ox1, breathing even and unlabored, on o2 at 2lpm via nc with spo2 of 96%. Patient discharged to SNF in stable condition. No distress noted.
--- NOTE | 2020-06-29 11:49 | NUR ---
IV removed. Catheter intact and site benign. Pressure and 4x4 applied to site. No bleeding noted.
[2020-06-29 11:50] VITALS: BP 125/72
--- NOTE | 2020-06-30 16:29 | NUR ---
COVID RESULT FAXED TO JOB MANLEY RN AT [phone]
== END 2020-06-29 11:50 ==
LOC: ER 07:31
DX: U07.1 COVID-19 (principal); J12.89 Other viral pneumonia; E41 Nutritional marasmus; Z68.1 Body mass index [BMI] 19.9 or less, adult; G30.9 Alzheimer's disease, unspecified; F02.80 Dementia in other diseases classified elsewhere, unspecified severity, without behavioral disturbance, psychotic disturbance, mood disturbance, and anxiety; N40.0 Benign prostatic hyperplasia without lower urinary tract symptoms; K21.9 Gastro-esophageal reflux disease without esophagitis; E78.5 Hyperlipidemia, unspecified; D64.9 Anemia, unspecified; I10 Essential (primary) hypertension; Z79.82 Long term (current) use of aspirin; Z79.899 Other long term (current) drug therapy; G93.40 Encephalopathy, unspecified; E11.9 Type 2 diabetes mellitus without complications; Z79.4 Long term (current) use of insulin
CPT/HCPCS: 36415; 71045; 80048; 80076; 81001; 82962; 83605 ×2; 84145; 84484; 85025; 85730; 87040 ×2; 87086; 93005; 96365 ×2; 96375; 99285; C9803; J0456; J0696; J1100; J7030; U0003; 81000-TC; J7060

== ENCOUNTER 2021-12-02 11:53 | Inpatient (IN) | payer MEDICARE, OTHER ==
[~2021-12-02] VITALS: Ht 177.8 cm; Wt 57.2 kg
[2021-12-02] MEDS: INSULIN GLARGINE, 100 UNIT/ML CARTRIDGE SQ SCH
--- NOTE | 2021-12-02 | NUR ---
INTERNAL REVENUE AGENT NOTES, AT 2330 RECEIVED 71 YO MALE ADMITTED FROM ER DEPARTMENT ACCOMPANIED BY 2NURSES VIA STRETCHER, UNDER MEDICAL SERVICES OF DR BELINDA ELIZABETH, ESTEPHANIA VIDES DNP BRAKE REPAIR MECHANIC TONIRENE, WITH ADMITTING DX SEPSIS/COVID/PNA, PATIENT AWAKE A/O X0, UNABLE TO FOLLOW COMMANDS, LETHARGIC, UNABLE TO TAKE PO MEDICATIONS, WITH COUGH, VERY CONGESTED, AFEBRILE, ON 15LPM VIA NC WITH 02 98% AT THIS TIME, VS 112/62, 72, 98.1, 20, COVID POSITIVE FROM SNF, PCR STILL PENDING, ATTACHED TO TELE MONITOR AND NSR IN TELE, IV SITE IN RIGHT WRIST AND RIGHT FA 18G, BOTH PATENT AND INTACT, ON IV ATB, CLEANED AND DRY, PERINEAL/PENIS/SCROTUM/SACRUM REDNESS, PICS IN THE CHART, WOUND CONSULT TO FOLLOW, SUCTIONING PROVIDED NEEDED, BED LOCKED AND IN LOWEST POSITION, S/R OF BED X3 UP, CALL LIGHT W/I REACH, WILL CONTINUE TO MONITOR CLOSELY.
[2021-12-02 04:00] VITALS: BP 121/68
[~2021-12-02 11:53] MED LIST changes: +ACET325T53 GT; -ACET325T53 PO; +ASCO-352 PO; +BALS60OI4 TP; +CLON0.1T GT; -CLON0.1T PO; +CRAN3875 PO; +CRAN425C6 PO; -DEXA6TAB6 PO; -HYDR453.3 TP; +RISP0.2515 PO; -RISP1TAB7 PO; +TAMS-12 GT; -TAMS-12 PO; +ZINC220C6 PO
--- NOTE | 2021-12-02 11:53 | NUR ---
PT BIBRA 87 FROM [facility] C/O SOB/ LOW O2 SAT 80% ON RA STARTED THIS MORNING. PT IS AAOX0, NOTED RESPIRATORY DISTRESS, HOOKED TO O2 AT 15 LPM VIA NON RB, HOOKED TO FIELD UNDERWRITER, KEPT RESTED AND COMFORTABLE. WILL CONTINUE TO MONITOR.
--- NOTE | 2021-12-02 11:55 | NUR ---
RT AT BEDSIDE.
--- NOTE | 2021-12-02 12:00 | NUR ---
AT BEDSIDE FOR EVAL.
--- NOTE | 2021-12-02 12:10 | NUR ---
IV LINE ESTABLISHED BLOOD DRAWN AND SENT TO LAB.
--- NOTE | 2021-12-02 12:20 | NUR ---
NURSING REGULATORY COMPLIANCE ENGINEER CALLED FOR TELE BED.
[2021-12-02] MEDS ORDERED: ACET-2605 PO (12:25)
[2021-12-02] MEDS ORDERED: HYDR28.32 TP (12:25)
[2021-12-02] MEDS ORDERED: METR45CR2 TP (12:25)
[2021-12-02] MEDS ORDERED: CLOT15CR27 TP (12:25)
[2021-12-02] MEDS ORDERED: FERR325T23 PO (12:25)
[2021-12-02] MEDS ORDERED: DEXA4TAB PO (12:25)
[2021-12-02] MEDS ORDERED: ACET-868 PO (12:25)
[2021-12-02] MEDS ORDERED: TYL2T PO (12:25)
[2021-12-02 12:33] LABS: BASOPHILS % (AUTO) 0.2 % (0.0-2.0); EOSINOPHILS % (AUTO) 0.6 % (0.0-6.0); HEMATOCRIT 45 % (39-51); HEMOGLOBIN 14.9 g/dL (13.5-17.5); LYMPHOCYTES # (AUTO) 1.7 K/uL (0.8-4.8); LYMPHOCYTES % (AUTO) 9.3 % (20.0-44.0); MEAN CORPUSCULAR HGB CONC 33 g/dl (31.0-36.0); MEAN CORPUSCULAR VOLUME 90 fL (80-96); MONOCYTES # (AUTO) 0.4 K/uL (0.1-1.30); MONOCYTES % (AUTO) 2.1 % (2.0-12.0); NEUTROPHILS # (AUTO) 15.7 K/uL (1.8-8.9); NEUTROPHILS % (AUTO) 87.8 % (43.0-81.0); PLATELET COUNT (AUTO) 447 K/uL (150-450); RED BLOOD CELL COUNT(AUTO) 5.01 MIL/uL (4.5-6.0); WHITE BLOOD COUNT (AUTO) 17.9 K/uL (4.3-11.0)
[2021-12-02] MEDS ORDERED: ACETAMINOPHEN 650 MG/SUPP.RECT RC ONE ×2 (12:41→13:00)
[2021-12-02 12:44] LABS: CALCIUM, SERUM 8.6 mg/dL (8.5-10.1); CARBON DIOXIDE 26 mmol/L (21-32); CHLORIDE 101 mmol/L (98-107); CREATININE 0.9 mg/dL (0.6-1.3); GLUCOSE 118 mg/dL (74-106); POTASSIUM 3.9 mmol/L (3.5-5.1); SODIUM SERUM 137 mmol/L (136-145); UREA NITROGEN, BLOOD 29 mg/dL (7-18)
[2021-12-02 12:53] LABS: BILIRUBIN,URINE NEGATIVE (NEGATIVE); COLOR,URINE ORANGE (YELLOW); LEUKOCYTE ESTERASE ,URINE NEGATIVE (NEGATIVE); NITRITE, URINE NEGATIVE (NEGATIVE); PH,URINE 7.5 (5.0-8.0); PROTEIN,URINE 30 mg/dl (NEGATIVE); UGLUCOSE 250 MG/DL mg/dL (NEGATIVE)
[2021-12-02 12:53] LABS: D-DIMER 5.04 mg/L(FEU (0.17-0.50)
[2021-12-02 12:59] LABS: ALANINE AMINOTRANSFERASE 25 U/L (12-78); ALKALINE PHOSPHATASE 73 U/L (46-116); ASPARTATE AMINOTRANSFERASE 19 U/L (15-37); BILIRUBIN,TOTAL 0.8 mg/dL (0.2-1.0); TOTAL PROTEIN, SERUM 7.2 g/dL (6.4-8.2)
[2021-12-02] MEDS ORDERED: IV NS 0.9% 1,000 ML BAG IV ONE (13:00)
[2021-12-02] MEDS ORDERED: PIPERACILLIN /TAZOBACTAM 3.375 G in IV D5W 50 ML IV ONE (13:00)
--- NOTE | 2021-12-02 13:01 | NUR ---
NURSING CORPORATE STRATEGY ASSOCIATE CALLED FOR MI BED.
--- NOTE | 2021-12-02 13:02 | NUR ---
Nurse Jemma from [facility] stated that the patient is not on any kind antibiotic at the facility.
[2021-12-02 13:08] LABS: BACTERIA,URINE Moderate /HPF (None Seen); SQUAMOUS EPITHELIAL CELL,UR None Seen /HPF (None Seen)
[2021-12-02] MEDS ORDERED: DEXAMETHASONE SOD PHOSPHATE 10 MG/ML VIAL ONE (13:08)
[2021-12-02 13:10] LABS: C-REACTIVE PROTEIN 4.7 mg/dL (0.0-0.9); CREATINE KINASE, TOTAL 218 U/L (39-308)
[2021-12-02] MEDS ORDERED: VANCOMYCIN 1 GM in IV D5W 250 ML IV ONE (13:30)
[2021-12-02] MEDS ORDERED: DEXAMETHASONE SOD PHOSPHATE 6 MG in IV D5W 50 ML IV ONE (13:30)
[2021-12-02] MEDS ORDERED: IOHEXOL-350 100 ML VIAL IV ONE (13:40)
[2021-12-02] MEDS ORDERED: CT SWABBABLE VALVE TRANS SET 1 EA INFUS.SET MC ONE (13:42)
--- NOTE | 2021-12-02 13:45 | NUR ---
THE PATIENT IS TAKEN TO CT VIA [facility]
--- NOTE | 2021-12-02 13:56 | NUR ---
THE PATIENT IS BACK FROM CT VIA [facility]
[2021-12-02] MEDS ORDERED: CLONIDINE HCL 0.1 MG TABLET PO PRN (15:30)
[2021-12-02 15:35] LABS: BILIRUBIN,DIRECT 0.3 mg/dL (0.0-0.2)
[2021-12-02] MEDS ORDERED: ONDANSETRON HCL/PF 4 MG/2 ML VIAL IVP PRN (16:00)
[2021-12-02] MEDS ORDERED: Z GUARD REMEDY 4 OZ OINT TP PRN (16:00)
[2021-12-02] MEDS ORDERED: ACETAMINOPHEN 325 MG TABLET PO PRN (16:00)
[2021-12-02] MEDS ORDERED: ENOXAPARIN SODIUM 40 MG/0.4 ML DISP.SYRIN SQ ONE (16:36)
[2021-12-02] MEDS: ENOXAPARIN SODIUM 40 MG/0.4 ML DISP.SYRIN SQ SCH (16:39)
[2021-12-02] MEDS: PIPERACILLIN /TAZOBACTAM 3.375 G in IV D5W 50 ML IV SCH (18:24)
[2021-12-02] MEDS: TAMSULOSIN 0.4 MG CAP.SR.24H PO SCH (22:00)
[2021-12-02] MEDS: ATORVASTATIN 40 MG TABLET PO SCH (22:00)
--- NOTE | 2021-12-02 22:03 | NUR ---
flomax and lipitor not administered pt is ams. dr espinoza made aware.
--- NOTE | 2021-12-02 23:07 | NUR ---
report given to Seema black).
--- NOTE | 2021-12-02 23:26 | NUR ---
PT TRANSFERRED TO MI PER ACLS PROTOCOL.
[2021-12-02 23:30] VITALS: BP 112/62
[2021-12-03] MEDS ORDERED: PIPERACILLIN /TAZOBACTAM 3.375 G VIAL IV ONE ×2 (00:23→05:16)
[2021-12-03] MEDS: PIPERACILLIN /TAZOBACTAM 3.375 G in IV D5W 50 ML IV SCH ×4 (00:27→17:01)
[2021-12-03] MEDS ORDERED: VANCOMYCIN 1 GM VIAL ONE (01:46)
[2021-12-03] MEDS: VANCOMYCIN 1 GM in IV D5W 250 ML IV SCH ×2 (01:48→13:47)
[2021-12-03 04:00] VITALS: BP 121/68
--- NOTE | 2021-12-03 05:00 | NUR ---
INFORMED ESTEPHANIA VIDES DNP THAT PATIENT NOTED WITH BODY TEMP 101.0 AND PT IS NPO, LETHARGIC, UNABLE TO FOLLOW COMMANDS, UNABLE TO TAKE PILLS, AND PER ESTEPHANIA TO SWITCH TO TYLENOL SUPP VIA RECTAL, ORDER NOTED AND CARRIED OUT.
[2021-12-03] MEDS: ACETAMINOPHEN 650 MG/SUPP.RECT RC PRN (05:18)
--- NOTE | 2021-12-03 06:37 | NUR ---
PATIENT ASLEEP, AROUSES TO TACTILE STIMULI, UNABLE TO TAKE PO MEDICATIONS, NPO STATUS, CONT WITH COUGH, VERY CONGESTED, ON 15LPM VIA NC WITH 02 >94%, NSR IN TELE, IV SITE IN RIGHT WRIST AND RIGHT FA 18G, BOTH PATENT AND INTACT, THIS MORNING WITH BODY TEMP 101.2, TYLENOL SUPP ADMINISTERED, SUCTIONING PROVIDED NEEDED, BED LOCKED AND IN LOWEST POSITION, S/R OF BED X3 UP, CALL LIGHT W/I REACH, WILL ENDORSE CONTINUITY OF CARE TO ONCOMING NURSE.
[2021-12-03 07:47] LABS: CREATININE 0.8 mg/dL (0.6-1.3); PHOSPHORUS 3.4 mg/dL (2.5-4.9); POTASSIUM 3.9 mmol/L (3.5-5.1)
--- NOTE | 2021-12-03 07:55 | NUR ---
RN OPENING NOTE PATIENT IS A/OX0 NONVERBAL. PATIENT IS ON NON REBREATHER AT 15LPM. TOLERATING WELL WITH O2 SAT OF 97%. PATIENT IS ON TELE MONITOR WITH NSR AND HR IN THE 90'S. PATIENT HAS RFA 18G INTACT AND PATENT. PATIENT HAS NPO ORDER IN PLACE. PATIENT ON ASPIRATION PRECAUTIONS. PATIENT BED IN LOWEST POSITION AND WHEELS LOCKED IN PLACE. CALL LIGHT WITHIN REACH. ALL SAFETY MEASURES NOTED. WILL CONTINUE TO MONITOR.
[2021-12-03 07:58] LABS: EOSINOPHILS % (AUTO) 0.2 % (0.0-6.0); HEMATOCRIT 37 % (39-51); HEMOGLOBIN 12.5 g/dL (13.5-17.5); LYMPHOCYTES # (AUTO) 0.4 K/uL (0.8-4.8); LYMPHOCYTES % (AUTO) 1.6 % (20.0-44.0); MEAN CORPUSCULAR HGB CONC 34 g/dl (31.0-36.0); MEAN CORPUSCULAR VOLUME 88 fL (80-96); MONOCYTES # (AUTO) 0.4 K/uL (0.1-1.30); MONOCYTES % (AUTO) 1.3 % (2.0-12.0); NEUTROPHILS # (AUTO) 26.7 K/uL (1.8-8.9); NEUTROPHILS % (AUTO) 96.9 % (43.0-81.0); PLATELET COUNT (AUTO) 315 K/uL (150-450); RED BLOOD CELL COUNT(AUTO) 4.19 MIL/uL (4.5-6.0); WHITE BLOOD COUNT (AUTO) 27.5 K/uL (4.3-11.0)
[2021-12-03 08:00] VITALS: BP 118/67
[2021-12-03] MEDS ORDERED: DEXAMETHASONE 4 MG TABLET PO SCH (09:00)
[2021-12-03] MEDS: LINAGLIPTIN 5 MG TABLET PO SCH (09:00)
[2021-12-03] MEDS: ASPIRIN EC 81 MG TABLET.DR PO SCH (09:00)
[2021-12-03] MEDS: PANTOPRAZOLE 40 MG VIAL IV SCH (09:19)
[2021-12-03] MEDS: DEXAMETHASONE SOD PHOSPHATE 4 MG/ML VIAL IV SCH (09:30)
[2021-12-03 09:52] LABS: THYROID STIMULATING HORMONE 1.106 uIU/mL (0.358-3.74)
--- NOTE | 2021-12-03 10:35 | NUR ---
WOUND CARE CONSULT: REVIEWED CHART,NURSING DOCUMENTATION AND PHOTOS WHICH INDICATE REDNESS/INTACT DEEP TISSUE INJURY TO SACRUM, REDNESS TO LEFT HEEL/FOOT AND TO PERINEUM, ALL PRESENT ON ADMISSION. RECOMMENDATIONS MADE FOR SKIN PROTECTION. DISCUSSED WITH NURSING STAFF. SURGICAL/DPM CONSULTS CALLED TO DR JONES AND DR HAMPAPUR. WATTS IN AGREEMENT WITH PLAN OF CARE. FIRST STEP LOW AIRLOSS MATTRESS IS ON ORDER.
[2021-12-03 12:00] VITALS: BP 110/57
--- NOTE | 2021-12-03 15:32 | NUR ---
RN NOTE ABG RESULT RELAYED TO DR. CANCHOLA, START PATIENT ON 6LPM NASAL CANNULA.
[2021-12-03 16:00] VITALS: BP 110/57
[2021-12-03] MEDS: ENOXAPARIN SODIUM 40 MG/0.4 ML DISP.SYRIN SQ SCH (17:02)
--- NOTE | 2021-12-03 17:03 | NUR ---
CHARGE NURSE NOTE PATIENT MRSA POSITIVE RIGHT NARE. RELAYED TO ROCAEL MONET.
--- NOTE | 2021-12-03 18:45 | NUR ---
RN CLOSING NOTE PATIENT IS A/1X0 NONVERBAL. PATIENT IS ON NASAL CANNULA AT 6LPM. TOLERATING WELL WITH O2 SAT OF 97%. PATIENT HAS NGT PATENT AND INTACT. XRAY RESULT TO VERIFY PLACEMENT PENDING AT THIS TIME. PATIENT PROVIDED WITH NASAL SUCTIONING AND ORAL SUCTIONING MULTIPLE TIMES THROUGHOUT SHIFT. PATIENT TOLERATED WELL AND HAD O2 SAT OF 97%. PATIENT IS ON TELE MONITOR WITH NSR AND HR IN THE 90'S. WOUND TREATMENT DONE ORDERED. DUENAS CATHETER INTACT AND PATENT. URINE TEA COLORED UPON ASSESSMENT. ACCUCHK PERFORMED BLOOD SUGAR WNL. IV ABX ADMINISTERED ORDERED NO ADVERSE SIDE EFFECT NOTED. PATIENT HAS RFA 18G INTACT AND PATENT. PATIENT HAS NPO ORDER IN PLACE. PATIENT ON ASPIRATION PRECAUTIONS. PATIENT BED IN LOWEST POSITION AND WHEELS LOCKED IN PLACE. CALL LIGHT WITHIN REACH. ALL SAFETY MEASURES NOTED. WILL ENDORSE TO PRODUCTION BROACHING MACHINE OPERATOR RN.
[2021-12-03 20:00] VITALS: BP 116/77
--- NOTE | 2021-12-03 20:00 | NUR ---
MI RN NOTE PT IN BED WITH EYES CLOSED. AROUSABLE TO PAINFUL STIMULI. NO DISTRESS OR DISCOMFORT NOTED. NO S/S OF PAIN NOTED. PT HAS NGT IN RT NARES. INTACT AND PATENT AND CLAMPED. ON TELE SR HR 67. RFA #18 G SL INTACT AND PATENT. KEPT HOB ELEVATED 40 DEGREES. KEPT HIM DRY AND CLEAN. ALL NEEDS ATTENDED. REPOSITION HIM Q2H, FOR SKIN MANAGEMENT. SIDE RAILS UP X 2 AND CALL LIGHT WITHIN REACH. VSS. CONTINUE TO MONITOR HIM.
--- NOTE | 2021-12-03 20:45 | NUR ---
MI RN NOTE RADIOLOGY DEPT TURNER CALLED AND INFORMED ME THAT PER CXR RESULT SHOW NGT NEEDED TO BE ADVANCED TO BE 8 CM. WILL FOLLOW UP. PT IS NPO.
[2021-12-03] MEDS: ATORVASTATIN 40 MG TABLET PO SCH (21:53)
[2021-12-03] MEDS: TAMSULOSIN 0.4 MG CAP.SR.24H PO SCH (21:53)
[2021-12-03] MEDS: INSULIN GLARGINE, 100 UNIT/ML CARTRIDGE SQ SCH (21:53)
[2021-12-03] MEDS: MUPIROCIN OINT 2% 22 GM TUBE NS SCH (21:58)
--- NOTE | 2021-12-03 22:08 | NUR ---
MI RN NOTE NGT ADVANCED 8 CM AND CHECKED THE PLACEMENT BY TWO NURSES. ESTEPHANIA POWERHOUSE OPERATOR INFORMED RECEIVED STAT CXR ORDER FOR THE PLACEMENT OF THE NGT. ORDER NOTED AND CARRIED OUT.
[2021-12-03] MEDS: NYSTATIN TOP POWDER 15 GM BOTTLE TP SCH (23:00)
[2021-12-04] VITALS: BP 128/71
[2021-12-04] MEDS: PIPERACILLIN /TAZOBACTAM 3.375 G in IV D5W 50 ML IV SCH ×4 (00:45→17:17)
[2021-12-04 00:55] LABS: ABG BASE EXCESS 4.7 mmol/L; ABG PCO2 32.2 mmHg (35.0-45.0); ABG PH 7.537 (7.350-7.450); ABG PO2 58.1 mmHg (75.0-100.0); SITE, ABG Right Radial
[2021-12-04 00:56] LABS: COHb 0.3 % (0.5-1.5); MetHb 0.2 % (0.0-1.5); O2Hb 91.8 % (94.0-97.0)
[2021-12-04] MEDS: VANCOMYCIN 1 GM in IV D5W 250 ML IV SCH ×2 (01:55→13:30)
[2021-12-04 02:28] LABS: ABG BASE EXCESS 1.9 mmol/L; ABG OXYGEN SATURATION 97.8 % (92.0-98.5); ABG PCO2 32.9 mmHg (35.0-45.0); ABG PH 7.493 (7.350-7.450); ABG PO2 97.6 mmHg (75.0-100.0); AaDO2 582.5 mmHg; COHb 0.2 % (0.5-1.5); MetHb 0.1 % (0.0-1.5); O2Hb 97.5 % (94.0-97.0); SITE, ABG Right Radial; VENT MODE, BG NRB
[2021-12-04 04:00] VITALS: BP 122/60
--- NOTE | 2021-12-04 06:29 | NUR ---
MI RN NOTE PT IN BED ASLEEP, EASILY AROUSABLE NO DISTRESS OR DISCOMFORT NOTED. ON TELE SR , ALL NEEDS ATTENDED. WILL ENDORSE TO DAY SHIFT NURSE.
[2021-12-04 06:39] LABS: BASOPHILS # (AUTO) 0.1 K/uL (0.0-0.2); BASOPHILS % (AUTO) 0.4 % (0.0-2.0); EOSINOPHILS % (AUTO) 0.1 % (0.0-6.0); HEMATOCRIT 36 % (39-51); HEMOGLOBIN 11.9 g/dL (13.5-17.5); LYMPHOCYTES # (AUTO) 0.2 K/uL (0.8-4.8); LYMPHOCYTES % (AUTO) 0.9 % (20.0-44.0); MEAN CORPUSCULAR HGB CONC 33 g/dl (31.0-36.0); MEAN CORPUSCULAR VOLUME 88 fL (80-96); MONOCYTES # (AUTO) 0.6 K/uL (0.1-1.30); MONOCYTES % (AUTO) 2.5 % (2.0-12.0); NEUTROPHILS # (AUTO) 24.8 K/uL (1.8-8.9); NEUTROPHILS % (AUTO) 96.1 % (43.0-81.0); PLATELET COUNT (AUTO) 303 K/uL (150-450); RED BLOOD CELL COUNT(AUTO) 4.07 MIL/uL (4.5-6.0); WHITE BLOOD COUNT (AUTO) 25.7 K/uL (4.3-11.0)
[2021-12-04 07:16] LABS: CALCIUM, SERUM 8.3 mg/dL (8.5-10.1); CREATININE 0.7 mg/dL (0.6-1.3); PHOSPHORUS 2.1 mg/dL (2.5-4.9); POTASSIUM 3.8 mmol/L (3.5-5.1)
--- NOTE | 2021-12-04 07:23 | NUR ---
MI RN NOTES; PT IN BED IN SUPINE POS. AWAKE, NON VERBAL. NO EVIDENCE OF PAIN AND DISTRESS. PT ON 02 VIA NC AT 6LPM WITH O2 SAT AT 94%. IV ACCESS NOTED, FLUSHED, PATENT, FLOWING WELL. ALL SAFETY MEASURES RENDERED, BED LOCKED, IN LOWEST POS. WITH SIDE RAILS UP X3 AND CALL LIGHT WITHIN REACH. WILL CONTINUE TO MONITOR.
[2021-12-04 07:35] LABS: MAGNESIUM 2.1 mg/dL (1.8-2.4)
[2021-12-04 08:00] VITALS: BP 110/56
[2021-12-04] MEDS: ASPIRIN EC 81 MG TABLET.DR PO SCH (08:25)
[2021-12-04] MEDS: LINAGLIPTIN 5 MG TABLET PO SCH (08:25)
[2021-12-04] MEDS: DEXAMETHASONE SOD PHOSPHATE 4 MG/ML VIAL IV SCH (08:25)
[2021-12-04] MEDS: PANTOPRAZOLE 40 MG VIAL IV SCH (08:25)
[2021-12-04] MEDS: MUPIROCIN OINT 2% 22 GM TUBE NS SCH ×2 (08:26→22:34)
[2021-12-04] MEDS: NYSTATIN TOP POWDER 15 GM BOTTLE TP SCH ×2 (08:27→16:00)
[2021-12-04 12:00] VITALS: BP 110/57
[2021-12-04] MEDS ORDERED: Sodium Phosphate 15 MMOL in IV NS 0.9% 245 ML IV SCH (15:00)
[2021-12-04] MEDS: ENOXAPARIN SODIUM 40 MG/0.4 ML DISP.SYRIN SQ SCH (15:02)
[2021-12-04 16:00] VITALS: BP 116/60
--- NOTE | 2021-12-04 18:38 | NUR ---
RN CLOSING NOTES; PT IN BED RESTING. AWAKE, NON VERBAL. NO EVIDENCE OF SOB OR DISTRESS. PT ON O2 AT 6LPM. ALL MEDICATIONS GIVEN AND TOLERATED WELL. HALLIE #18 ML INSERTED. FLUSHED, PATENT, AND FLOWING WELL. DEEP SUCTION DONE THROUGHOUT SHIFT, PT HOB KEPT ELEVATED 40 DEGREES AND ABOVE. ALL SAFETY MEASURES RENDERED, BED LOCKED IN LOWEST POS. SIDE RAILS UP X3 WITH CALL LIGHT WITHIN REACH. WILL ENDORSE TO HOOP RIVETING MACHINE OPERATOR RN. NO SIGNIFICANT CHANGES IN PT HEALTH STATUS.
[2021-12-04 20:00] VITALS: BP 138/63
[2021-12-04] MEDS: ATORVASTATIN 40 MG TABLET PO SCH (22:00)
[2021-12-04] MEDS: TAMSULOSIN 0.4 MG CAP.SR.24H PO SCH (22:00)
[2021-12-04] MEDS: INSULIN GLARGINE, 100 UNIT/ML CARTRIDGE SQ SCH (22:00)
[2021-12-04] MEDS: VANCOMYCIN 1.25 GM in IV D5W 250 ML IV SCH (22:33)
[2021-12-05] VITALS: BP 116/65
[2021-12-05] MEDS: PIPERACILLIN /TAZOBACTAM 3.375 G in IV D5W 50 ML IV SCH ×4 (00:35→17:01)
[2021-12-05 04:00] VITALS: BP 124/60
[2021-12-05 07:14] LABS: HEMATOCRIT 35 % (39-51); HEMOGLOBIN 11.8 g/dL (13.5-17.5); LYMPHOCYTES # (AUTO) 0.3 K/uL (0.8-4.8); LYMPHOCYTES % (AUTO) 1.6 % (20.0-44.0); MEAN CORPUSCULAR HGB CONC 34 g/dl (31.0-36.0); MEAN CORPUSCULAR VOLUME 89 fL (80-96); MONOCYTES % (AUTO) 5.2 % (2.0-12.0); NEUTROPHILS # (AUTO) 18.4 K/uL (1.8-8.9); NEUTROPHILS % (AUTO) 93.2 % (43.0-81.0); PLATELET COUNT (AUTO) 349 K/uL (150-450); RED BLOOD CELL COUNT(AUTO) 3.95 MIL/uL (4.5-6.0); WHITE BLOOD COUNT (AUTO) 19.7 K/uL (4.3-11.0)
--- NOTE | 2021-12-05 07:30 | NUR ---
RN NOTES; pt PT RECIVED IN BED AWAKE, NON VERBAL. A/OX0,NO SOB AND DISTRESS OR PAIN NOTED. PT ON 02 VIA NC AT 6LPM WITH O2 SAT AT 99%. IV ACCESS , FLUSHED, PATENT. SUCTION AT BEDSIDE, HOB ELEVATED. ALL SAFETY MEASURES RENDERED, BED LOCKED, IN LOWEST POS. WITH SIDE RAILS UP X3 AND CALL LIGHT WITHIN REACH. WILL DENG
[2021-12-05 07:38] LABS: CALCIUM, SERUM 8.6 mg/dL (8.5-10.1); CREATININE 0.9 mg/dL (0.6-1.3); PHOSPHORUS 1.8 mg/dL (2.5-4.9)
[2021-12-05 08:00] VITALS: BP 132/68
[2021-12-05] MEDS: LINAGLIPTIN 5 MG TABLET PO SCH (08:41)
[2021-12-05] MEDS: ASPIRIN EC 81 MG TABLET.DR PO SCH (08:41)
[2021-12-05] MEDS: PANTOPRAZOLE 40 MG TABLET.DR PO SCH (08:42)
[2021-12-05] MEDS: DEXAMETHASONE SOD PHOSPHATE 4 MG/ML VIAL IV SCH (08:42)
[2021-12-05] MEDS: NYSTATIN TOP POWDER 15 GM BOTTLE TP SCH ×2 (08:43→16:22)
[2021-12-05] MEDS: MUPIROCIN OINT 2% 22 GM TUBE NS SCH ×2 (08:43→21:46)
--- NOTE | 2021-12-05 10:00 | NUR ---
RN NOTE PT CONGESTED AND HAS CRACKLES, CALL RT TO DEEP SUCTION THE PT, AND INITIATE THE HUMIDIFICATION WITH NC 6L PER LIBAN SKELTON
[2021-12-05] MEDS: VANCOMYCIN 1.25 GM in IV D5W 250 ML IV SCH ×2 (11:32→22:47)
[2021-12-05 12:00] VITALS: BP 140/70
[2021-12-05] MEDS ORDERED: NEUTRA PHOS 1 POWD.PACKET NG ONE (12:30)
[2021-12-05 16:00] VITALS: BP 149/65
[2021-12-05] MEDS: ENOXAPARIN SODIUM 40 MG/0.4 ML DISP.SYRIN SQ SCH (16:22)
[2021-12-05] MEDS: GLUCERNA 1.2 1,000 ML BOTTLE NG PRN (17:54)
--- NOTE | 2021-12-05 18:49 | NUR ---
RN NOTES; PT REMAIN IN BED AWAKE, NON VERBAL. A/OX0,NO SOB AND DISTRESS OR PAIN NOTED. PT ON 02 VIA NC AT 6LPM WITH HUMIDIFIER O2 SAT AT 95%. DEEP SUCTIONING AND ORAL SUCTIONING MANY TIMED BY RT, 300 ML WHITE FROTHY SECRETION OUTPUT, PT STARTED ON GLUCERNA 1.2, 20 ML/HR, TOLERATING WELL, NO S/SX OF NAUSEA OR DIARRHEA. IV ACCESS RF MIDLINE, AND RIGHT HAND , FLUSHED, PATENT. SUCTION AT BEDSIDE, HOB ELEVATED. ALL SAFETY MEASURES OBSERVED, BED LOCKED, IN LOWEST POS. WITH SIDE RAILS UP X3 AND CALL LIGHT WITHIN REACH. WILL ENDORSE DNEG TO NOC SHIFT
--- NOTE | 2021-12-05 19:35 | NUR ---
RN OPENING NOTES; RECEIVED CARE OF PATIENT WHILE PATIENT IN BED, AWAKE, A/O X1, NON VERBAL, RESPONSE NOTED TO STERNAL PAINFUL STIMULI. NO DISTRESS NOTED. PATIENT ON 02 VIA NC AT 6LPM WITH HUMIDIFIER O2 SAT AT 97%. PATIENT CONGESTED UPON AUSCULTATION, CRACKLES AUSCULTATED BILATERALLY, PATIENT DEEP SUCTIONED FOLLOWING STERILE TECHNIQUE, WHITE FROTHY SECRETION OUTPUT NOTED. NGT NOTED, POSITIVE PLACEMENT CONFIRMED VIA AUSCULTATION. PATIENT ON GLUCERNA 1.2, 20 ML/HR, TOLERATING WELL, NO S/SX OF NAUSEA OR DIARRHEA. IV ACCESS R MIDLINE, AND R HAND, FLUSHED, PATENT. ALL SAFETY MEASURES FOLLOWED, HOB ELEVATED. BED LOCKED, IN LOWEST POSITIONED. CALL LIGHT WITHIN REACH. APPROPRIATE ISOLATION PRECAUTIONS IMPLEMENTED. WILL CONTINUE TO MONITOR.
[2021-12-05 20:00] VITALS: BP 126/69
[2021-12-05] MEDS: TAMSULOSIN 0.4 MG CAP.SR.24H PO SCH (22:31)
[2021-12-05] MEDS: ATORVASTATIN 40 MG TABLET PO SCH (22:31)
[2021-12-05] MEDS: INSULIN GLARGINE, 100 UNIT/ML CARTRIDGE SQ SCH (22:45)
[2021-12-06] VITALS: BP 119/68
[2021-12-06] MEDS: PIPERACILLIN /TAZOBACTAM 3.375 G in IV D5W 50 ML IV SCH ×5 (00:45→23:52)
[2021-12-06 04:00] VITALS: BP 123/67
--- NOTE | 2021-12-06 06:32 | NUR ---
RN CLOSING NOTES WILL ENDORSE CARE OF PATIENT WHILE PATIENT IN BED, ASLEEP BUT WAKES UP TO NAME. PATIENT NONVERBAL, A/O X1. NO SIGNIFICANT FINDINGS THROUGHOUT SHIFT. PATIENT ON 02 VIA NC AT 6LPM WITH HUMIDIFIER O2 SAT AT 93%. PATIENT CONGESTED UPON AUSCULTATION, CRACKLES AUSCULTATED BILATERALLY, PATIENT DEEP SUCTIONED Q2H FOLLOWING STERILE TECHNIQUE, WHITE FROTHY SECRETION OUTPUT NOTED, 150 ML OUTPUT OF SECRETIONS. NGT PATENT RUNNING ON GLUCERNA 1.2, 20 ML/HR, TOLERATING WELL, NO S/SX OF NAUSEA OR DIARRHEA. ALL DUE MEDS GIVEN, ALL NEEDS ATTENDED TO. ALL SAFETY MEASURES FOLLOWED THROUGHOUT SHIFT, HOB ELEVATED. BED LOCKED, IN LOWEST POSITIONED. CALL LIGHT WITHIN REACH. APPROPRIATE ISOLATION PRECAUTIONS IMPLEMENTED. WILL ENDORSE TO AM NURSE FOR DENG.
[2021-12-06 06:49] LABS: HEMATOCRIT 36 % (39-51); HEMOGLOBIN 12.1 g/dL (13.5-17.5); LYMPHOCYTES # (AUTO) 0.3 K/uL (0.8-4.8); LYMPHOCYTES % (AUTO) 2.9 % (20.0-44.0); MEAN CORPUSCULAR HGB CONC 34 g/dl (31.0-36.0); MEAN CORPUSCULAR VOLUME 88 fL (80-96); MONOCYTES # (AUTO) 1.2 K/uL (0.1-1.30); MONOCYTES % (AUTO) 11.2 % (2.0-12.0); NEUTROPHILS # (AUTO) 9.3 K/uL (1.8-8.9); NEUTROPHILS % (AUTO) 85.9 % (43.0-81.0); PLATELET COUNT (AUTO) 388 K/uL (150-450); RED BLOOD CELL COUNT(AUTO) 4.07 MIL/uL (4.5-6.0); WHITE BLOOD COUNT (AUTO) 10.8 K/uL (4.3-11.0)
[2021-12-06 07:19] LABS: CALCIUM, SERUM 9.4 mg/dL (8.5-10.1); CREATININE 0.9 mg/dL (0.6-1.3); MAGNESIUM 2.4 mg/dL (1.8-2.4); PHOSPHORUS 1.8 mg/dL (2.5-4.9); POTASSIUM 4.6 mmol/L (3.5-5.1)
--- NOTE | 2021-12-06 07:50 | NUR ---
DISEASE CONTROL INSPECTOR OPENING NOTES RECEIVED PATIENT IN BED, AWAKE, A/O X0, NON VERBAL, RESPONSE NOTED TO STERNAL PAINFUL STIMULI. NO DISTRESS NOTED. PATIENT ON 02 VIA NC AT 6LPM WITH HUMIDIFIER O2 SAT AT 97%. PATIENT CONGESTED UPON AUSCULTATION, CRACKLES AUSCULTATED BILATERALLY. NGT NOTED, POSITIVE PLACEMENT CONFIRMED VIA AUSCULTATION. PATIENT ON GLUCERNA 1.2, 20 ML/HR, TOLERATING WELL, NO S/SX OF NAUSEA OR DIARRHEA. IV ACCESS R MIDLINE, AND R HAND, FLUSHED, PATENT. ALL SAFETY MEASURES FOLLOWED, HOB ELEVATED TO 40 DEGREES AT ALL TIMES. BED LOCKED, IN LOWEST POSITION. CALL LIGHT WITHIN REACH. APPROPRIATE ISOLATION PRECAUTIONS IMPLEMENTED. WILL CONTINUE TO MONITOR.
[2021-12-06 08:00] VITALS: BP 120/62
[2021-12-06] MEDS: DEXAMETHASONE SOD PHOSPHATE 10 MG/ML VIAL IV SCH (09:44)
[2021-12-06] MEDS: LINAGLIPTIN 5 MG TABLET PO SCH (09:44)
[2021-12-06] MEDS: ASPIRIN EC 81 MG TABLET.DR PO SCH (09:44)
[2021-12-06] MEDS: PANTOPRAZOLE 40 MG TABLET.DR PO SCH (09:48)
[2021-12-06] MEDS: NYSTATIN TOP POWDER 15 GM BOTTLE TP SCH ×2 (09:49→16:29)
[2021-12-06] MEDS: MUPIROCIN OINT 2% 22 GM TUBE NS SCH ×2 (09:49→20:21)
[2021-12-06] MEDS ORDERED: NEUTRA PHOS 1 POWD.PACKET NG ONE (10:00)
[2021-12-06 12:00] VITALS: BP 120/62
[2021-12-06] MEDS: VANCOMYCIN 1.25 GM in IV D5W 250 ML IV SCH ×2 (12:31→22:35)
[2021-12-06] MEDS: BLOOD SUGAR DIAGNOSTIC 1 EACH STRIP IN SCH ×2 (12:32→17:21)
[2021-12-06] MEDS: INSULIN REGULAR, HUMAN 100 UNIT/ML 3 ML VIAL SQ PRN ×3 (12:33→23:58)
--- NOTE | 2021-12-06 13:01 | NUR ---
RT NOTE PATIENT NT SUCTIONED. MODERATE AMOUNTS OF THICK, MARTINEZ SECRETIONS NOTED. RN NOTIFIED AND AWARE.
[2021-12-06] MEDS: IV D5W 1,000 ML IV PRN (14:32)
--- NOTE | 2021-12-06 15:00 | NUR ---
RN NOTES PATIENT GLUCERNA FEEDING TO INCREASE FROM 20-60ML PER PROVIDER DR. SKELTON.
[2021-12-06 16:00] VITALS: BP 134/75
[2021-12-06] MEDS: ENOXAPARIN SODIUM 40 MG/0.4 ML DISP.SYRIN SQ SCH (16:28)
--- NOTE | 2021-12-06 18:15 | NUR ---
COLLAR TAILOR CLOSING NOTES PATIENT REMAINED STABLE THROUGHOUT THE SHIFT. SHOWED NO S/S OF PAIN OR DISCOMFORT. BREATHING CONGESTION ADDRESSED BY ORAL SUCTIONING AND DEEP NASAL SUCTION. PATIENT DUENAS OUTPUT WAS 400MLS. RIGHT WRIST #18G RUNS D5W @75CC/HR. LAST BGC AT 1630 SHOWS ELEVATED BLOOD SUGAR (325). WAS GIVEN 8 UNITS PER SLIDING SCALE. BREATHING EXPANSION IS SYMMETRICAL. HOB ELEVATED TO 40 DEGREES ALL SHIFT LONG FOR BETTER LUNG EXPANSION. PATIENT TOLERATED 6LPM VIA NC SATTED AT 98%. BED IN LOWEST POSITION AND LOCKED. CALL LIGHT WITHIN REACH. WILL ENDORSE TO UPCOMING SHIFT.
--- NOTE | 2021-12-06 19:00 | NUR ---
RN NOTE RECEIVE PATIENT IN BED,CONFUSED NONVERBAL,ON 6L 0XYGEN VIA NASAL CANNULA,O2:94% IV SITE IS ON RIGHT UPPER MIDLINE AND RIGHT WRIST INTACT PATENT ON IV HYDRATION D5W 75CC/HR ON NGT FEEDING,CHECKED PLACEMENT IN PLACE,ON GLUCERNA WITH 30CC RESIDUAL NOTED,DUENAS CATHETER IN PLACE URINE DRAINING BY GRAVITY,HEAD OF THE BED ELEVATED,SAFETY MEASURE IMPLEMENT BED IN LOW POSITION AND LOCKED,CONTINUE TO MONITOR.
[2021-12-06 20:00] VITALS: BP 125/67
--- NOTE | 2021-12-06 20:09 | NUR ---
PT IS ON 6L NC O2 SAT 96%. PT SX'D MODERATE AMT OF THICK YELLOW SECRETIONS. RN NOTIFIED.
[2021-12-06] MEDS: TAMSULOSIN 0.4 MG CAP.SR.24H PO SCH (21:44)
[2021-12-06] MEDS: ATORVASTATIN 40 MG TABLET PO SCH (21:44)
[2021-12-06] MEDS: INSULIN GLARGINE, 100 UNIT/ML CARTRIDGE SQ SCH (21:45)
--- NOTE | 2021-12-06 23:42 | NUR ---
PT SX'D MOD AMT OF THICK YELLOW SECRETIONS.
[2021-12-07] VITALS: BP 107/64
[2021-12-07] MEDS: BLOOD SUGAR DIAGNOSTIC 1 EACH STRIP IN SCH ×5 (00:03→22:58)
[2021-12-07 04:00] VITALS: BP 130/70
--- NOTE | 2021-12-07 04:04 | NUR ---
PT NTS, LARGE AMT OF THICK YELLOW SECRETIONS.
[2021-12-07] MEDS: GLUCERNA 1.2 1,000 ML BOTTLE NG PRN (05:46)
[2021-12-07] MEDS: IV D5W 1,000 ML IV PRN (05:55)
[2021-12-07] MEDS: PIPERACILLIN /TAZOBACTAM 3.375 G in IV D5W 50 ML IV SCH ×4 (05:56→23:21)
[2021-12-07] MEDS: INSULIN REGULAR, HUMAN 100 UNIT/ML 3 ML VIAL SQ PRN ×4 (05:59→22:58)
--- NOTE | 2021-12-07 06:29 | NUR ---
RN NOTE PATIENT REMAINS CONFUSED NONVERBAL CONTRACTED,ON 6L OXYGEN VIA NASAL CANNULA O2:98% HEAD OF THE BED ELEVATED ALL THE TIME,IV SITE IS ON RIGHT UPPER ARM MIDLINE AND RIGHT WRIST INTACT PATENT ON D5W IV HYDRATION 75CC/HR NOT ACUTE DISTRESS NOTED,A LARGE AMOUNT SECRETIONS BY SUCTIONING COLLECTED, ON NGT FEEDING,ON GLUCERNA 60CC/HR,DUENAS IN PLACE ALL DUE MEDS GIVEN MD ORDERED KEPT CLEAN AND DRY ALL THE TIME,KEPT COMFORTABLE REPOSITIONED EVERY 2HOURS WILL ENDORSE NEXT COMING SHIFT FOR CONTINUATION OF CARE.
[2021-12-07 06:48] LABS: BASOPHILS % (AUTO) 0.1 % (0.0-2.0); EOSINOPHILS % (AUTO) 0.1 % (0.0-6.0); HEMATOCRIT 35 % (39-51); LYMPHOCYTES # (AUTO) 0.4 K/uL (0.8-4.8); LYMPHOCYTES % (AUTO) 4.5 % (20.0-44.0); MEAN CORPUSCULAR HGB CONC 34 g/dl (31.0-36.0); MEAN CORPUSCULAR VOLUME 86 fL (80-96); MONOCYTES # (AUTO) 0.8 K/uL (0.1-1.30); MONOCYTES % (AUTO) 10.1 % (2.0-12.0); NEUTROPHILS # (AUTO) 6.8 K/uL (1.8-8.9); NEUTROPHILS % (AUTO) 85.2 % (43.0-81.0); PLATELET COUNT (AUTO) 398 K/uL (150-450); RED BLOOD CELL COUNT(AUTO) 4.06 MIL/uL (4.5-6.0); WHITE BLOOD COUNT (AUTO) 7.9 K/uL (4.3-11.0)
[2021-12-07 07:23] LABS: CALCIUM, SERUM 8.2 mg/dL (8.5-10.1); CREATININE 0.6 mg/dL (0.6-1.3); MAGNESIUM 1.9 mg/dL (1.8-2.4); PHOSPHORUS 1.4 mg/dL (2.5-4.9); POTASSIUM 3.4 mmol/L (3.5-5.1)
--- NOTE | 2021-12-07 07:49 | NUR ---
CONTRACTING ENGINEER OPENING NOTES RECEIVED PATIENT IN BED, AWAKE, A/O X0, NON VERBAL, RESPONSE NOTED TO STERNAL PAINFUL STIMULI. NO DISTRESS NOTED. PATIENT ON 02 VIA NC AT 6LPM WITH HUMIDIFIER O2 SAT AT 94%. PATIENT CONGESTED UPON AUSCULTATION, CRACKLES AUSCULTATED BILATERALLY. NGT NOTED, POSITIVE PLACEMENT CONFIRMED VIA AUSCULTATION. PATIENT ON GLUCERNA 1.2, 60 ML/HR, TOLERATING WELL, NO S/SX OF NAUSEA OR DIARRHEA. IV ACCESS R MIDLINE, AND R HAND, FLUSHED, PATENT. ALL SAFETY MEASURES FOLLOWED, HOB ELEVATED TO 40 DEGREES AT ALL TIMES. BED LOCKED, IN LOWEST POSITION. CALL LIGHT WITHIN REACH. APPROPRIATE ISOLATION PRECAUTIONS IMPLEMENTED. WILL CONTINUE TO MONITOR.
[2021-12-07 08:00] VITALS: BP 141/73
[2021-12-07] MEDS: ASPIRIN EC 81 MG TABLET.DR PO SCH (09:36)
[2021-12-07] MEDS: DEXAMETHASONE SOD PHOSPHATE 10 MG/ML VIAL IV SCH (09:36)
[2021-12-07] MEDS: PANTOPRAZOLE 40 MG TABLET.DR PO SCH (09:36)
[2021-12-07] MEDS: LINAGLIPTIN 5 MG TABLET PO SCH (09:36)
[2021-12-07] MEDS: MUPIROCIN OINT 2% 22 GM TUBE NS SCH ×2 (09:42→21:54)
[2021-12-07] MEDS: NYSTATIN TOP POWDER 15 GM BOTTLE TP SCH ×2 (09:42→16:11)
[2021-12-07] MEDS ORDERED: POTASSIUM CHLORIDE 20 MEQ TAB.PRT.SR PO SCH (10:30)
[2021-12-07] MEDS: VANCOMYCIN 1.25 GM in IV D5W 250 ML IV SCH ×2 (10:51→23:18)
[2021-12-07 11:58] LABS: BAND % (MANUAL) 12 % (0.0-5.0); LYMPHOCYTES % (MANUAL) 5 % (16-48); MONOCYTES % (MANUAL) 8 % (0-11.0); NEUTROPHILS % (MANUAL) 75 (42-76)
[2021-12-07 12:00] VITALS: BP 131/63
[2021-12-07] MEDS ORDERED: Sodium Phosphate 30 MMOL in IV NS 0.9% 250 ML IV SCH (12:00)
[2021-12-07] MEDS: ENOXAPARIN SODIUM 40 MG/0.4 ML DISP.SYRIN SQ SCH (15:47)
[2021-12-07 16:00] VITALS: BP 119/78
--- NOTE | 2021-12-07 18:41 | NUR ---
CERTIFIED MIDWIFE CLOSING NOTES PATIENT REMAINED STABLE THROUGHOUT THE SHIFT. ALL MEDICATIONS ADMINISTERED ORDERED. PATIENT SUCTIONED AND SHOWED THICK SECRETIONS. CONGESTION AND GURGLING SOUND LOWERED WHEN DONE SO. HOB OF BED ELEVATED THROUGHOUT THE SHIFT AT 40 DEGREES PER ORDERED. PATIENT SHOWED NO S/S OF PAIN OR DISCOMFORT. TOLERATED FLUIDS WELL. SKIN TURGOR SHOWS NO TENTING NOTED. PATIENT OXYGEN SUPPLEMENTATION VIA NASAL CANNULA 6LPM WAS TOLERATED WELL AND O2 SAT WAS 97%. TELE READING SHOWS SINUS RHYTHM IN THE 60S. ALL SAFETY MEASURES IN PLACE. BED IN LOWEST POSITION AND LOCKED. CALL LIGHT WITHIN REACH. WILL ENDORSE TO MITTEN STITCHER NURSE.
[2021-12-07 20:00] VITALS: BP_SYST 134; BP_SYST 91; BP_DIAS 63
--- NOTE | 2021-12-07 20:00 | NUR ---
RT NOTE PATIENT NTS FOR LARGE, THICK, YELLOW SECRETIONS. NO RESPIRATORY DISTRESS AT THIS TIME. BREATH SOUNDS IMPROVED. WILL CONTINUE TO MONITOR PATIENT.
[2021-12-07] MEDS: TAMSULOSIN 0.4 MG CAP.SR.24H PO SCH (21:15)
[2021-12-07] MEDS: ATORVASTATIN 40 MG TABLET PO SCH (21:15)
[2021-12-07] MEDS: INSULIN GLARGINE, 100 UNIT/ML CARTRIDGE SQ SCH (22:56)
--- NOTE | 2021-12-07 23:46 | NUR ---
RT NOTE PATIENT NTS FOR LARGE, THICK, MARTINEZ COLORED SECRETIONS. NO RESPIRATORY DISTRESS NOTED. WILL CONTINUE TO MONITOR PATIENT.
[2021-12-08] VITALS: BP 133/69
[2021-12-08 04:00] VITALS: BP 124/70
--- NOTE | 2021-12-08 04:54 | NUR ---
RN notes In bed resting comfortably. On high flow oxygen and non rebreather mask at 15% O2 maintaining O2sat 85- 90%. No complaint of pain or discomfort. Alert, non verb al. Opens eyes with eye contact. Suctioned large amount of secretion orally and nasogastric. No significant change of condition as of this time. Vital signs wnl. Kept clean and dry. Will endorse to next shift for continuity of care.
--- NOTE | 2021-12-08 04:57 | NUR ---
RT NOTE PATIENT NTS FOR LARGE, THICK, MARTINEZ SECRETIONS. NO RESPIRATORY DISTRESS NOTED.
[2021-12-08] MEDS: BLOOD SUGAR DIAGNOSTIC 1 EACH STRIP IN SCH ×3 (05:45→17:52)
[2021-12-08] MEDS: PIPERACILLIN /TAZOBACTAM 3.375 G in IV D5W 50 ML IV SCH ×3 (05:45→17:04)
[2021-12-08] MEDS: INSULIN REGULAR, HUMAN 100 UNIT/ML 3 ML VIAL SQ PRN (05:46)
[2021-12-08 06:40] LABS: CALCIUM, SERUM 8.2 mg/dL (8.5-10.1); CREATININE 0.7 mg/dL (0.6-1.3)
[2021-12-08 07:04] LABS: POTASSIUM 3.5 mmol/L (3.5-5.1)
--- NOTE | 2021-12-08 07:30 | NUR ---
FRUCTOSE LOADER OPENING NOTES RECEIVED PATIENT IN BED, AWAKE, A/O X0, NON VERBAL, RESPONSE NOTED TO STERNAL PAINFUL STIMULI, OPENS EYES. NO DISTRESS NOTED. PATIENT ON 02 VIA NC AT 6LPM WITH HUMIDIFIER. SATURATING WELL. PATIENT CONGESTED UPON AUSCULTATION, NOTED WITH CRACKLES ON BOTH LUNG KIMBALL. NGT NOTED, POSITIVE PLACEMENT CONFIRMED VIA AUSCULTATION. PATIENT ON GLUCERNA 1.2, 60 ML/HR, TOLERATING WELL, NO S/SX OF NAUSEA OR DIARRHEA., NO RESIDUAL NOTED. IV ACCESS R MIDLINE FLUSHED, PATENT. ALL SAFETY MEASURES IN PLACE, HOB ELEVATED TO 45 DEGREES AT ALL TIMES. BED LOCKED, IN LOWEST POSITION. CALL LIGHT WITHIN REACH. APPROPRIATE ISOLATION PRECAUTIONS OBSERVED, WILL CONTINUE TO MONITOR ACCORDINGLY.
[2021-12-08] MEDS: PANTOPRAZOLE 40 MG TABLET.DR PO SCH (07:34)
[2021-12-08 08:00] VITALS: BP 114/68
--- NOTE | 2021-12-08 08:00 | NUR ---
RN NOTES PATIENT IS WARM TO TOUCH. TEMPERATURE 102 F, COOLING MEASURES PROVIDED. ANTIPYRETIC MEDICATION GIVEN ORDERED. WILL CONTINUE TO MONITOR ACCORDINGLY.
[2021-12-08] MEDS: DEXAMETHASONE SOD PHOSPHATE 10 MG/ML VIAL IV SCH (08:18)
[2021-12-08] MEDS: ASPIRIN EC 81 MG TABLET.DR PO SCH (08:18)
[2021-12-08] MEDS: MUPIROCIN OINT 2% 22 GM TUBE NS SCH ×2 (08:18→21:10)
[2021-12-08] MEDS: LINAGLIPTIN 5 MG TABLET PO SCH (08:19)
[2021-12-08] MEDS: NYSTATIN TOP POWDER 15 GM BOTTLE TP SCH ×2 (08:19→16:20)
[2021-12-08] MEDS: ACETAMINOPHEN 650 MG/SUPP.RECT RC PRN ×2 (09:22→23:14)
[2021-12-08] MEDS: VANCOMYCIN 1.25 GM in IV D5W 250 ML IV SCH ×2 (10:19→22:00)
[2021-12-08 12:00] VITALS: BP 93/56
--- NOTE | 2021-12-08 12:00 | NUR ---
CHIKI RUBI PATIENT TEMP WENT DOWN TO 99.4.
[2021-12-08] MEDS: GLUCERNA 1.2 1,000 ML BOTTLE NG PRN (14:46)
--- NOTE | 2021-12-08 15:15 | NUR ---
RN NOTES RT(PERI) COLLECTED SPECIMEN FOR RESPIRATORY CULTURE. LAB INFORMED, SPOKE TO CASS FOR SUPERVISOR PAINT DEPARTMENT.
[2021-12-08 16:00] VITALS: BP 111/63
[2021-12-08] MEDS: ENOXAPARIN SODIUM 40 MG/0.4 ML DISP.SYRIN SQ SCH (16:21)
--- NOTE | 2021-12-08 18:40 | NUR ---
HEAD UP OPERATOR CLOSING NOTES PATIENT IN BED, AWAKE, A/O X0, NON VERBAL, RESPONDS TO STERNAL PAINFUL STIMULI, OPENS EYES. NO DISTRESS NOTED. PATIENT ON 02 VIA NC AT 6LPM WITH HUMIDIFIER. SATURATING WELL. PATIENT CONGESTED UPON AUSCULTATION, NOTED WITH CRACKLES ON BOTH LUNG KIMBALL. NGT NOTED, POSITIVE PLACEMENT CONFIRMED VIA AUSCULTATION, ONGOING GLUCERNA 1.2 @ 60 ML/HR, TOLERATING WELL, NO S/SX OF NAUSEA OR DIARRHEA, NO RESIDUAL NOTED. IV ACCESS HALLIE MIDLINE FLUSHED, PATENT. ON TELE MONITOR READING SHOWING SR HR AT 60'S. ALL SAFETY MEASURES IN PLACE, HOB ELEVATED TO 45 DEGREES AT ALL TIMES. BED LOCKED, IN LOWEST POSITION. CALL LIGHT WITHIN REACH. APPROPRIATE ISOLATION PRECAUTIONS OBSERVED DURING THE SHIFT. ALL NEEDS ATTENDED AND MET. DUE MEDS GIVEN ORDERED. WILL ENDORSE TO ONCOMING SHIFT FOR DENG.
--- NOTE | 2021-12-08 19:30 | NUR ---
RN OPENING NOTE RECEIVED PATIENT IN BED. NONVERBAL. ON OXYGEN 6L VIA NASAL CANNULA WITH HUMIDIFIED AIR. PATIENT DOES SOUND VERY CONGESTED, WAS DESATURATING TO 86% AND INITIATED DEEP SUCTION, MODERATE AMOUNT OF WHITE SECRETIONS. NO SPO2 AT 94%. NO S/S PAIN NOTED. IV ACCESS IN HALLIE MINDLINE PATENT AND SALINE LOCKED. GTUBE PRESENT RESIDUAL 10ML, FLUSHED WITH NO RESISTANCE, RUNNING GLUCERNA @60ML/HR. DUENAS CATHETER DRAINING TO GRAVITY, URINE BEGINNING TO HAVE SLIGHT HEMATURIA. BED IS LOW AND LOCKED, HOB ELEVATED IN HIGH FOWLERS, SIDE RAILS UP X3, ON SPECIALTY MATTRESS. ALARMS ON AND SAFETY PRECAUTIONS IN PLACE.
[2021-12-08 20:00] VITALS: BP 125/65
[2021-12-08] MEDS: TAMSULOSIN 0.4 MG CAP.SR.24H PO SCH (21:09)
[2021-12-08] MEDS: ATORVASTATIN 40 MG TABLET PO SCH (21:10)
[2021-12-08] MEDS: INSULIN GLARGINE, 100 UNIT/ML CARTRIDGE SQ SCH (21:53)
--- NOTE | 2021-12-08 23:14 | NUR ---
RN NOTE INFORMED. GAME TECHNICIAN DR. KENNETH FLOWERS THAT PATIENT IS EXPERIENCING HEMATURIA IN HIS DUENAS. RECEIVED ORDER TO FLUSH DUENAS HOURLY TO SEE IF RESOLVED AND TO DC LOVENOX AND ASPIRIN. ORDERS READ BACK AND CARRIED OUT.
[2021-12-09] VITALS (13 sets, daily range): BP systolic 96–133; BP diastolic 50–70
--- NOTE | 2021-12-09 | NUR ---
RN NOTE O2 REQUIREMENTS INCREASED TO 8L SIMPLE MASK, O2 SAT 94%.
[2021-12-09] MEDS: BLOOD SUGAR DIAGNOSTIC 1 EACH STRIP IN SCH ×5 (00:16→23:46)
[2021-12-09] MEDS: PIPERACILLIN /TAZOBACTAM 3.375 G in IV D5W 50 ML IV SCH ×3 (00:16→12:40)
[2021-12-09] MEDS: INSULIN REGULAR, HUMAN 100 UNIT/ML 3 ML VIAL SQ PRN ×2 (01:21→19:14)
--- NOTE | 2021-12-09 01:30 | NUR ---
RN NOTE O2 REQUIREMENTS INCREASE TO 10L SIMPLE MASK, O2 94%
--- NOTE | 2021-12-09 04:20 | NUR ---
RN NOTE PATIENTS TEMP 101.9 AXILLARY, PLACED ICE PACKS ON PATIENT TYLENOL IS Q6HRS AND WAS ADMINISTERED EARLIER IN THE SHIFT.
[2021-12-09] MEDS: ACETAMINOPHEN 650 MG/SUPP.RECT RC PRN (05:39)
[2021-12-09] MEDS: DEXTROSE 50%-WATER 50 ML DISP.SYRIN IV PRN ×2 (05:58→11:28)
--- NOTE | 2021-12-09 06:55 | NUR ---
RN NOTE PATIENT REMOVED NG TUBE. PLACED NG TUBE WITH MAGAZINE GRINDER LOADER ELSA. 16 ARMENIAN, 55CM. CHECKED PLACEMENT WITH AUSCULTATION. CXR ORDERED FOR VERIFICATION.
[2021-12-09 07:21] LABS: CALCIUM, SERUM 8.6 mg/dL (8.5-10.1); CREATININE 0.7 mg/dL (0.6-1.3); POTASSIUM 4.2 mmol/L (3.5-5.1)
--- NOTE | 2021-12-09 07:37 | NUR ---
RN CLOSING NOTE IN BED. NONVERBAL. ON OXYGEN 8L VIA SIMPLE MASK. CONGESTED, DEEP SUCTIONING THROUGHOUT THE NIGHT, WHITE THICK SECRETIONS, TEMP AMANAGED WITH TYLENOL AND ICE PACKS. HALLIE MINDLINE INTACTS. PATIENT REMOVED NGTUBE , ANOTHER APPLIED AWAITING RESULTS FOR CONTINUATION OF FEEDING. DUENAS CATHETER HAS SLIGHT HEMATURIA , VERY UCH CLEARED UP. BED REMAINS LOW AND LOCKED, HOB ELEVATED IN HIGH FOWLERS, SIDE RAILS UP X3, ON SPECIALTY MATTRESS. ALARMS ON AND SAFETY PRECAUTIONS IN PLACE. WILL ENDORSE TO ONCOMING SHIFT.
--- NOTE | 2021-12-09 07:55 | NUR ---
TELE/RN OPENING NOTE RECEIVED PATIENT IN BED. ALERT,NONVERBAL. ON OXYGEN 8L VIA SIMPLE MASK. R UPPER ARM MIDLINE INTACTS. NEW G-TUBE APPLIED BY PREVIOUS NURSE, AWAITING XRAY RESULTS FOR GTUBE PLACEMENT CONFIRMATION TO START THE FEEDING. DUENAS CATHETER HAS SLIGHT HEMATURIA. SAFETY PRECAUTIONS IN PLACED: BED LOW AND LOCKED, HOB ELEVATED IN HIGH FOWLERS, SIDE RAILS UP X3, ON SPECIALTY MATTRESS. ALARMS ON. WILL CONTINUE TO MONITOR.
[2021-12-09] MEDS: MUPIROCIN OINT 2% 22 GM TUBE NS SCH ×2 (08:29→22:38)
[2021-12-09] MEDS: DEXAMETHASONE SOD PHOSPHATE 10 MG/ML VIAL IV SCH (08:29)
[2021-12-09] MEDS: PANTOPRAZOLE 40 MG TABLET.DR PO SCH (08:29)
[2021-12-09] MEDS: LINAGLIPTIN 5 MG TABLET PO SCH (08:29)
[2021-12-09] MEDS: NYSTATIN TOP POWDER 15 GM BOTTLE TP SCH ×2 (08:30→17:24)
--- NOTE | 2021-12-09 08:45 | NUR ---
TELE/RN NOTES- GLUCERNA STARTED NG TUBE PLACEMENT CONFIRMED WITH DR CARPIO VIA PHONE, ALSO CONFIRMED PLACEMENT VIA AUSCULTATION. GLUCERNA RE-STARTED AT LOW DOSE OF 15 ML/HR PER CHARGE NURSE EVANGELINA DUE TO PATIENT HAVING PLENTY OF CONGESTION. WILL MONITOR.
--- NOTE | 2021-12-09 09:45 | NUR ---
maintenance mechanic telephone note abg done by rt, rt reported result to dr vega geriatrics physician , with order to transfer to icu, called to nursing supervisor backfilling for bed, will f\u
--- NOTE | 2021-12-09 10:10 | NUR ---
RN NOTES PATIENT TRANSFERRED FROM [place] ON DX OF ACUTE RESPIRATORY DISTRESS, PATIENT ON SIMPE MASK 10L O2-98%, BEDSIDE MONITOR SHOWS HR 61. PATIENT TOTAL CARE, T-96f DAYRON ISAAC ORDERED, BS-40MG/DL ,ADMINISTERED DEXTROSE. RECHECKED RESIDUAL 0 ML. STARTED NGT FEEDING GLUCERNA 15ML/HR, KEEP HOB ELEVATED FOR ASPIRATION PRECAUTION. DUENAS DRAINING VIA GRAVITY.IV ACCESS ON RIGHT UA TKO, AND ZOSYN INFUSING.
--- NOTE | 2021-12-09 10:53 | NUR ---
TELE/RN NOTES- TRANSFERRED TO ICU COMPLETED TRANSFER TO ICU BED 257.
--- NOTE | 2021-12-09 11:28 | NUR ---
aryan sosa s-40mg/dl given dextrose 50, t-96 put on Li hugger. Deep suction via RT, no residual, started ngt feeding 50ml/hr.
[2021-12-09] MEDS: VANCOMYCIN 1.25 GM in IV D5W 250 ML IV SCH ×2 (11:49→23:45)
[2021-12-09] MEDS: GLUCERNA 1.2 1,000 ML BOTTLE NG PRN (12:02)
[2021-12-09] MEDS: MEROPENEM 1 G in IV NS 0.9% 100 ML IV SCH (17:23)
[2021-12-09] MEDS: FLUCONAZOLE (100 MG) 100 MG TABLET PO SCH (17:23)
--- NOTE | 2021-12-09 18:02 | NUR ---
RT NT SX
--- NOTE | 2021-12-09 18:30 | NUR ---
RN NOTES PM CARE DONE, SUCTION, MOUTH CARE, BS143 MG/DL COVERAGE GIVEN, ASSIST TURN AND REPOSTION Q 2 HR. ENDORSED ONCOMING NURSE FOLLOW DENG.
[2021-12-09 20:53] LABS: ABG BASE EXCESS 8.7 mmol/L; ABG OXYGEN SATURATION 94.7 % (92.0-98.5); ABG PCO2 34.2 mmHg (35.0-45.0); ABG PH 7.574 (7.350-7.450); ABG PO2 64.3 mmHg (75.0-100.0); AaDO2 253.7 mmHg; MetHb 0.1 % (0.0-1.5); O2Hb 94.6 % (94.0-97.0); SITE, ABG Right Radial; VENT MODE, BG SIMPLE MASK
[2021-12-09] MEDS: INSULIN GLARGINE, 100 UNIT/ML CARTRIDGE SQ SCH (22:00)
[2021-12-09] MEDS: TAMSULOSIN 0.4 MG CAP.SR.24H PO SCH (22:38)
[2021-12-09] MEDS: ATORVASTATIN 40 MG TABLET PO SCH (22:38)
[2021-12-10] VITALS (31 sets, daily range): BP systolic 84–172; BP diastolic 44–95
[2021-12-10] MEDS: PROPOFOL 100 ML IV PRN ×3 (00:41→23:32)
[2021-12-10 02:06] LABS: ABG BASE EXCESS 10.5 mmol/L; ABG OXYGEN SATURATION 60.4 % (92.0-98.5); ABG PCO2 35.1 mmHg (35.0-45.0); ABG PH 7.587 (7.350-7.450); ABG PO2 26.6 mmHg (75.0-100.0); COHb 0.1 % (0.5-1.5); MetHb 0.1 % (0.0-1.5); O2Hb 60.3 % (94.0-97.0); SITE, ABG Right Radial; VENT MODE, BG NRB 15L
[2021-12-10 02:06] LABS: ABG BASE EXCESS 8.9 mmol/L; ABG OXYGEN SATURATION 94.6 % (92.0-98.5); ABG PCO2 36.7 mmHg (35.0-45.0); ABG PH 7.554 (7.350-7.450); ABG PO2 68.2 mmHg (75.0-100.0); AaDO2 608.1 mmHg; COHb 0.3 % (0.5-1.5); MetHb 0.1 % (0.0-1.5); O2Hb 94.2 % (94.0-97.0); PEEP,BG 10 cm H2O; SITE, ABG Right Radial; VENT MODE, BG AC 24 450 100% +10; VT, ABG 450 mL
[2021-12-10] MEDS ORDERED: hydrALAZINE HCL IV 20 MG VIAL IV PRN (02:30)
--- NOTE | 2021-12-10 03:50 | NUR ---
CHILDREN TEACHER PT WENT TO RESPIRATORY DISTRESS. STAT ABG WAS DONE /SEE RESULTS/ AND INFORMATION SERVICES CONSULTANT Christy CANCHOLA WAS NOTIFIED. HE ORDERED TO INTUBATE THE PT. PT WAS SEDATED WITH ETOMIDATE 10 MG & ROCURONIUM 50 MG IVP, INTUBATED /ETT 7.5 /24 CM./& PLACED ON VENTILATOR AC 24, TV-450, FIO2-100%, PEEP+5. STAT CXR DONE. SUCTIONED FOR MODERATE TO LARGE AMT. OF THICK WHITISH SECRETION. ABG REPEATED 1 HOUR AFTER INTUBATION. /SEE RESULTS/ SOFT WRIST RESTRAINTS ON. STARTED PROPOFOL DRIP-TITRATED TO KEEP PT IN LIGHT SEDATION. VSS, AFEBRILE, SCOPE-SR WITH OCC. PAC'S. PT IS NPO PER MD ORDER. F/C DRAINS BLOODY URINE, 1 BM. MEDICATED ORDERED. WILL CONTINUE CLOSE MONITORING.
[2021-12-10] MEDS: DEXTROSE 50%-WATER 50 ML DISP.SYRIN IV PRN (05:04)
[2021-12-10] MEDS: BLOOD SUGAR DIAGNOSTIC 1 EACH STRIP IN SCH ×4 (05:12→23:00)
[2021-12-10 06:26] LABS: CALCIUM, SERUM 8.7 mg/dL (8.5-10.1); CARBON DIOXIDE 33 mmol/L (21-32); CHLORIDE 98 mmol/L (98-107); CREATININE 1.1 mg/dL (0.6-1.3); SODIUM SERUM 137 mmol/L (136-145); UREA NITROGEN, BLOOD 22 mg/dL (7-18)
[2021-12-10 06:38] LABS: GLUCOSE 42 mg/dL (74-106)
[2021-12-10] MEDS ORDERED: ETOMIDATE 2 MG/ML VIAL IV ONE (07:51)
[2021-12-10] MEDS ORDERED: ROCURONIUM BROMIDE 50 MG/5 ML IV ONE (07:51)
--- NOTE | 2021-12-10 08:00 | NUR ---
rn notes received patient ETT/vent setting FIO2-100%, peep-10, patient tolerated setting well, no acut respiratory distress. patient sedated Diprivan 10mcg/kg/hr. hr -63 on bedside monitor. Valero draining yellow color output. patient on soft wrist restrains bilateral, rechecked for circulation, keep hob elevated, suction , mouth care done, assist turn and reposition q 2 hr, will follow up.
[2021-12-10] MEDS: LINAGLIPTIN 5 MG TABLET PO SCH (09:00)
[2021-12-10] MEDS: PANTOPRAZOLE 40 MG TABLET.DR PO SCH (09:27)
[2021-12-10] MEDS: FLUCONAZOLE (100 MG) 100 MG TABLET PO SCH (09:27)
[2021-12-10] MEDS: MUPIROCIN OINT 2% 22 GM TUBE NS SCH (09:28)
[2021-12-10] MEDS: DEXAMETHASONE SOD PHOSPHATE 10 MG/ML VIAL IV SCH (09:28)
[2021-12-10] MEDS: MEROPENEM 1 G in IV NS 0.9% 100 ML IV SCH ×2 (09:28→16:47)
[2021-12-10] MEDS: NYSTATIN TOP POWDER 15 GM BOTTLE TP SCH ×2 (09:29→16:47)
--- NOTE | 2021-12-10 09:56 | NUR ---
rn notes inserted new OGT, and get order for chest x_ray for placemnt of tube. seen patient via hospitalist Dr Reynolds start tube feeding. order taken ad carried out.
[2021-12-10] MEDS: VANCOMYCIN 1.25 GM in IV D5W 250 ML IV SCH (11:00)
[2021-12-10] MEDS: GLUCERNA 1.2 1,000 ML BOTTLE NG PRN (11:32)
--- NOTE | 2021-12-10 11:32 | NUR ---
RN NOTES STARTED GLUCERNA 1.2 @ 20ML/HR AT THIS TIME, BS-63MG/DL, DUE MEDICATION ADMINISTERED, HELD VANCOMYCIN INFUSION BECAUSE VANCOMYCIN LEVEL IS 31.
--- NOTE | 2021-12-10 18:21 | NUR ---
rn notes patient pm care done, suction, mouth care. patient due medication administered. running glucerna 1.2 @20ml/hr intact. keep hob elevated for aspiration precaution. infusing Diprivan 30mcg/kg/hr for sedation. BP 67/44, p-75 get order from hospitalist to start Levophed 0.1 mcg/kg/hr. order taken and carried out.
[2021-12-10] MEDS: NOREPINEPHRINE 8 MG in IV NS 0.9% 242 ML IV PRN (18:28)
--- NOTE | 2021-12-10 19:40 | NUR ---
RN NOTES RECEIVED PT ON BED, INTUBATED ON MECHANICAL VENTILATOR, TOLERATING SETTINGS WELL, WITH EYES CLOSE, SEDATED ON DEPRIVAN DRIP INFUSING AT 30MCG/KG/MIN AND LEVOPHED AT 0.1MCG/KG/MIN , BP MAINTAINED ABOVE 90S AT THIS TIME, O2 99%, HR FLUCTUATING 40S-80S, BUT HIGH 40S AT THIS TIME, FC IN PLACE, SMALL AMOUNT OF YELLOW URINE NOTED, HOB ELECTED, BED LOCKED AND IN LOWEST POSITION, SIDE RAILS UPX3, CALL LIGHT W/I REACH , ISOLATION PRECAUTIONS IN PLACE, WILL CONTINUE TO MONITOR CLOSELY.
[2021-12-10] MEDS: TAMSULOSIN 0.4 MG CAP.SR.24H PO SCH (21:07)
[2021-12-10] MEDS: ATORVASTATIN 40 MG TABLET PO SCH (21:07)
--- NOTE | 2021-12-10 22:05 | NUR ---
INFORMED DR COOPER HOSPITAL INSURANCE CLERK THAT PATIENT WITH EPISODES OF DESATURATION, AND RT INCREASED TO 80%, ND PER RT SUGGESTION, TO INCREASED FIO2 TO 100%, BUT NEEDS TO INCREASED PEEP TO 15, CURRENTLY PEEP AT 10, PER DR COOPER OK, BUT INFORM THE TITLE SEARCH MANAGER, WILL INFORM TITLE SEARCH MANAGER HOSPITAL INSURANCE CLERK.
--- NOTE | 2021-12-10 22:28 | NUR ---
INFORMED GLAZE WIPER O CALL DR SUTTON REGARDING INCREASED FIO2 TO 100% AND PEEP TO [address], [address] SUTTON TO DECREASED PEEP TO 14, ORDER NOTED AND CARRIED OUT, RT JOE INFORMED, WILL CONTINUE TO MONITOR CLOSELY..
[2021-12-10] MEDS: INSULIN GLARGINE, 100 UNIT/ML CARTRIDGE SQ SCH (22:59)
[2021-12-10] MEDS: INSULIN REGULAR, HUMAN 100 UNIT/ML 3 ML VIAL SQ PRN (23:03)
[2021-12-11] VITALS (67 sets, daily range): BP systolic 81–153; BP diastolic 49–77
--- NOTE | 2021-12-11 00:33 | NUR ---
PATIENT BACK TO 60% FIO2, CONT WITH PEEP 14, WITH O2 SATURATION LEVEL 99% AT THIS TIME, WILL CONTINUE TO MONITOR CLOSELY.
[2021-12-11 05:14] LABS: CALCIUM, SERUM 8.6 mg/dL (8.5-10.1); CARBON DIOXIDE 31 mmol/L (21-32); CHLORIDE 98 mmol/L (98-107); CREATININE 1.4 mg/dL (0.6-1.3); GLUCOSE 158 mg/dL (74-106); POTASSIUM 3.8 mmol/L (3.5-5.1); SODIUM SERUM 136 mmol/L (136-145); UREA NITROGEN, BLOOD 30 mg/dL (7-18)
[2021-12-11] MEDS: BLOOD SUGAR DIAGNOSTIC 1 EACH STRIP IN SCH ×4 (05:38→23:36)
[2021-12-11] MEDS: INSULIN REGULAR, HUMAN 100 UNIT/ML 3 ML VIAL SQ PRN ×4 (05:39→23:44)
[2021-12-11] MEDS: NOREPINEPHRINE 8 MG in IV NS 0.9% 242 ML IV PRN ×2 (05:46→15:55)
--- NOTE | 2021-12-11 06:40 | NUR ---
PATIENT CONT ON MECHANICAL VENTILATOR TOLERATING SETTINGS WELL, WITH EPISODE OF DESATURATION DURING THE NIGHT, GOT AN ORDER FROM DR COOPER TO GO 100% FIO2 AND INCREASE PEEP TO 15, PER DR COOPER LET SWING FRAME GRINDER OPERATOR KNOW, DR SUTTON MEAT GRADER TO DECREASED PEEP TO 14, PATIENT BACK TO 60% FIO2 SINCE TRADING SPECIALIST , OTHERWISE NO CHANGE IN CONDITION DURING THE NIGHT, ON BILATERAL SOFT WRIST RESTRAINS, NO CIRCULATION COMPROMISED, NO ABNORMALITIES AT SITE, BED LOCKED AND IN LOWEST POSITION, S/R OF BED X3 UP, WILL ENDORSE CONTINUITY OF CARE TO ONCOMING NURSE.
--- NOTE | 2021-12-11 07:45 | NUR ---
ICU/RN PT IS INTUBATED ON THE VENT AC MODE,FIO2-60%,PEEP-14.SAEDATED WITH DIPRIVAN.ON LEVOPHED DRIP.AFEBRILE.REACTIVE ON PAIN STIMULATION.NG TUBE OCCLUDED.OG TUBE INSERTED.INFUSING WITH GLUCERNA ORDERED.NO RESIDUAL NOTED.F/C DRAINING WITH JEAN CARLOS URINE.NO BLOOD NOTED .SUCTION PROVIDED.REPOSITION FOR COMFORT.
[2021-12-11] MEDS ORDERED: VANCOMYCIN 1 GM in IV D5W 250 ML IV SCH (08:00)
[2021-12-11] MEDS: MEROPENEM 1 G in IV NS 0.9% 100 ML IV SCH ×2 (08:18→16:37)
[2021-12-11] MEDS: PANTOPRAZOLE 40 MG TABLET.DR PO SCH (08:19)
[2021-12-11] MEDS: FLUCONAZOLE (100 MG) 100 MG TABLET PO SCH (08:19)
[2021-12-11] MEDS: DEXAMETHASONE SOD PHOSPHATE 10 MG/ML VIAL IV SCH (08:19)
[2021-12-11] MEDS: PROPOFOL 100 ML IV PRN ×3 (08:20→20:34)
[2021-12-11] MEDS: NYSTATIN TOP POWDER 15 GM BOTTLE TP SCH ×2 (08:24→16:37)
--- NOTE | 2021-12-11 09:05 | NUR ---
ICU/RN DUE MEDS ARE GIVEN ORDERED.UNABLE PROVIDED SEDATION VACATION PT IS ON HIGH FIO2-60% AND HIGH PEEP-14.DIPRIVAN DRIP DOSE INCREASED.PT NEED TO BE MORE SEDATED.
[2021-12-11 09:40] LABS: ABG BASE EXCESS 7.4 mmol/L; ABG OXYGEN SATURATION 97.9 % (92.0-98.5); ABG PCO2 36.6 mmHg (35.0-45.0); ABG PH 7.536 (7.350-7.450); ABG PO2 109.9 mmHg (75.0-100.0); AaDO2 277.6 mmHg; COHb 0.3 % (0.5-1.5); O2Hb 97.6 % (94.0-97.0); SITE, ABG Right Brachial; VENT MODE, BG AC 24 400 60% +14
--- NOTE | 2021-12-11 12:00 | NUR ---
ICU/RN COVED ANTIGEN TEST DONE ORDERED.PT IS NEGATIVE.ISOLATION D/C ORDERED BY DR CANCHOLA.
[2021-12-11] MEDS ORDERED: IV NS 0.9% 1,000 ML IV ONE (13:00)
[2021-12-11] MEDS ORDERED: GLUCERNA 1.2 1,000 ML BOTTLE NG SCH (14:00)
--- NOTE | 2021-12-11 18:00 | NUR ---
ICU/RN PM CARE PROVIDED.DUE MEDS ARE GIVEN ORDERED. WOUND DRESSING DONE ORDERED.PT IS RESTING .SEDATED WITH DIPRIVAN.ON LEVOPHED DRIP.SUCTION PROVIDED.REPOSITION FOR COMFORT.
--- NOTE | 2021-12-11 20:00 | NUR ---
PACKAGE DRIER NOTE PT IN BED SEDATED. ON ETT TOLERATING WELL VENT SETTINGS. NO DAISTRESS OR DISCOMFORT NOTED. NO SS OF PAIN NOTED. ON TELE SB 46. OGT INTACT AND PATENT INFUISNG GLUCERNA 50 ML/HR. 0 ML RESIDUAL NOTED. HALLIE PICC LINE INTACT AND PATENT INFUSING LEVO, DIPRIVAN AND NS aT 100 ML//HR. NO S/S OF INFILTRATION NOTED. VSS. CONTINUE TO MONITOR HIM.
[2021-12-11] MEDS: ATORVASTATIN 40 MG TABLET PO SCH (21:20)
[2021-12-11] MEDS: TAMSULOSIN 0.4 MG CAP.SR.24H PO SCH (21:20)
[2021-12-11] MEDS: VANCOMYCIN 0.75 GM in IV D5W 250 ML IV SCH (21:20)
[2021-12-11] MEDS: INSULIN GLARGINE, 100 UNIT/ML CARTRIDGE SQ SCH (23:41)
[2021-12-12] VITALS (75 sets, daily range): BP systolic 86–145; BP diastolic 48–88
[2021-12-12] MEDS: PROPOFOL 100 ML IV PRN ×3 (03:38→18:22)
[2021-12-12 04:53] LABS: EOSINOPHILS % (AUTO) 0.1 % (0.0-6.0); HEMATOCRIT 32 % (39-51); LYMPHOCYTES # (AUTO) 0.4 K/uL (0.8-4.8); MEAN CORPUSCULAR HGB CONC 35 g/dl (31.0-36.0); MEAN CORPUSCULAR VOLUME 86 fL (80-96); MONOCYTES # (AUTO) 0.5 K/uL (0.1-1.30); MONOCYTES % (AUTO) 4.5 % (2.0-12.0); NEUTROPHILS # (AUTO) 9.2 K/uL (1.8-8.9); NEUTROPHILS % (AUTO) 91.4 % (43.0-81.0); PLATELET COUNT (AUTO) 479 K/uL (150-450); RED BLOOD CELL COUNT(AUTO) 3.68 MIL/uL (4.5-6.0); WHITE BLOOD COUNT (AUTO) 10.1 K/uL (4.3-11.0)
[2021-12-12] MEDS: BLOOD SUGAR DIAGNOSTIC 1 EACH STRIP IN SCH ×4 (05:12→23:36)
[2021-12-12] MEDS: INSULIN REGULAR, HUMAN 100 UNIT/ML 3 ML VIAL SQ PRN ×4 (05:14→23:38)
[2021-12-12 05:15] LABS: CALCIUM, SERUM 8.3 mg/dL (8.5-10.1); CARBON DIOXIDE 28 mmol/L (21-32); CHLORIDE 101 mmol/L (98-107); CREATININE 1.1 mg/dL (0.6-1.3); GLUCOSE 219 mg/dL (74-106); POTASSIUM 3.7 mmol/L (3.5-5.1); SODIUM SERUM 136 mmol/L (136-145); UREA NITROGEN, BLOOD 29 mg/dL (7-18)
--- NOTE | 2021-12-12 07:04 | NUR ---
PROTECTIVE OFFICER NOTE PT IS REMAIN SEDATED. NO DISTRESS OR DISCOMFORT NOTED. NO S/S OF PAIN NOTED. NO CHANGE IN PT'S CONDITION. ALL NEEDS ATTENDED. DIPRIVAN AND UMER INFUSING ORDERED. VSS. ENDORSE TO DAY SHIFT NURSE FOR CONTINUE TO CARE.
--- NOTE | 2021-12-12 08:00 | NUR ---
RN NOTES RECEIVED PATIENT ETT/VENT PEEP-10, FIO2-50. PATIENT SEDATED WITH DIPRIVAN @50MCG/KG/HR. BEDSIDE MONITOR SHOWING HR-45 . PICC LINE INTACT ON RIGHT UA INFUSING LEVOPHED 0.1 MCG/KG/HR, AND TKO. PATIENT HAS LARGE AMOUNT OF ORAL SECRETION, SUCTIONED, MOUTH CARE DONE, KEEP HOB ELEVATED, RECHECKED RESIDUAL 200ML, HELD FEEDING. ASSIST TURN AND REPOSTION Q 2 HR. DUENAS DRAINING VIA GRAVITY. WILL FOLLOW UP.
[2021-12-12] MEDS: MEROPENEM 1 G in IV NS 0.9% 100 ML IV SCH ×2 (09:21→16:39)
[2021-12-12] MEDS: NYSTATIN TOP POWDER 15 GM BOTTLE TP SCH ×2 (09:28→16:39)
[2021-12-12 09:38] LABS: ABG BASE EXCESS 4.7 mmol/L; ABG OXYGEN SATURATION 98.9 % (92.0-98.5); ABG PCO2 44.4 mmHg (35.0-45.0); ABG PO2 162.3 mmHg (75.0-100.0); AaDO2 144.3 mmHg; COHb 0.3 % (0.5-1.5); MetHb 0.2 % (0.0-1.5); O2Hb 98.4 % (94.0-97.0); SITE, ABG Right Brachial; VENT MODE, BG ac16 400 50% +14
[2021-12-12] MEDS: PANTOPRAZOLE 40 MG TABLET.DR PO SCH (09:41)
[2021-12-12] MEDS: DEXAMETHASONE SOD PHOSPHATE 10 MG/ML VIAL IV SCH (09:42)
[2021-12-12] MEDS: FLUCONAZOLE (100 MG) 100 MG TABLET PO SCH (09:42)
[2021-12-12] MEDS: VANCOMYCIN 0.75 GM in IV D5W 250 ML IV SCH ×2 (09:46→21:08)
--- NOTE | 2021-12-12 10:00 | NUR ---
RN NOTES GET TO ORDER SEDATION VACATION AT THIS TIME PER Dr CANCHOLA'S ORDER, TITRATED PER PROTOCOL, FIO2-50%, PEEP- 5, WILL FOLLOW UP.
--- NOTE | 2021-12-12 10:00 | NUR ---
RN NOTES SEEN PATIENT VIA HOSPITALIST SHAHRAM DORMAN AND NOTIFIED ABOUT HR-45, PER HOSPITALIST FLAME CHANNELER WILL FOLLOW UP.
[2021-12-12] MEDS ORDERED: IV NS 0.9% 1,000 ML IV ONE (13:00)
[2021-12-12] MEDS: ALBUTEROL FS 2.5 MG/3 ML VIAL.NEB NEB SCH ×2 (14:55→23:22)
[2021-12-12] MEDS: NOREPINEPHRINE 8 MG in IV NS 0.9% 242 ML IV PRN (16:38)
[2021-12-12] MEDS: GLUCERNA 1.2 1,000 ML BOTTLE NG SCH (16:51)
--- NOTE | 2021-12-12 18:00 | NUR ---
rn notes Pm care done, suction, mouth care. Patient has large amount of oral secretion, patient sedated Diprivan 35mlcg/kg/hr, Levophed 0.08mcg/kg/hr, and tko on right picc line intact. Running Glucerna 1.2 @25ml/hr no residual. bs-182 mg/dl coverage given, also administered scheduled medication. assist turn and reposition q 2 hr. aguiar draining via gravity. endorsed oncoming nurse follow plan of care.
--- NOTE | 2021-12-12 20:05 | NUR ---
RECEIVED PT INTUBATED 7.5 ETT SECURED AT 24CM AT THE LIP. NO RESP DISTRESS NOTED, PT TOLERATING VENT SETTINGS. SX'D MOD AMT OF THICK WHITE SECRETIONS. VENT ALARMS SET AND AUDIBLE. CONTINUE TO MONITOR. Addendum: 12/12/21 at 2006 by DAVID MARSHALL RT Amended: Links added.
[2021-12-12] MEDS: TAMSULOSIN 0.4 MG CAP.SR.24H PO SCH (21:08)
[2021-12-12] MEDS: ATORVASTATIN 40 MG TABLET PO SCH (21:08)
[2021-12-12] MEDS: INSULIN GLARGINE, 100 UNIT/ML CARTRIDGE SQ SCH (23:37)
[2021-12-13] VITALS (88 sets, daily range): BP systolic 83–136; BP diastolic 45–72
[2021-12-13] MEDS: PROPOFOL 100 ML IV PRN ×3 (01:12→16:46)
[2021-12-13 04:52] LABS: BASOPHILS % (AUTO) 0.1 % (0.0-2.0); EOSINOPHILS % (AUTO) 0.1 % (0.0-6.0); HEMATOCRIT 29 % (39-51); HEMOGLOBIN 9.8 g/dL (13.5-17.5); LYMPHOCYTES # (AUTO) 0.4 K/uL (0.8-4.8); LYMPHOCYTES % (AUTO) 6.9 % (20.0-44.0); MEAN CORPUSCULAR HGB CONC 34 g/dl (31.0-36.0); MEAN CORPUSCULAR VOLUME 86 fL (80-96); MONOCYTES # (AUTO) 0.4 K/uL (0.1-1.30); MONOCYTES % (AUTO) 7.2 % (2.0-12.0); NEUTROPHILS # (AUTO) 5.3 K/uL (1.8-8.9); NEUTROPHILS % (AUTO) 85.7 % (43.0-81.0); PLATELET COUNT (AUTO) 430 K/uL (150-450); RED BLOOD CELL COUNT(AUTO) 3.34 MIL/uL (4.5-6.0); WHITE BLOOD COUNT (AUTO) 6.2 K/uL (4.3-11.0)
[2021-12-13] MEDS: BLOOD SUGAR DIAGNOSTIC 1 EACH STRIP IN SCH ×4 (06:06→23:25)
[2021-12-13] MEDS: INSULIN REGULAR, HUMAN 100 UNIT/ML 3 ML VIAL SQ PRN ×3 (06:08→23:32)
[2021-12-13 06:34] LABS: CHLORIDE 103 mmol/L (98-107); POTASSIUM 4.1 mmol/L (3.5-5.1); SODIUM SERUM 138 mmol/L (136-145)
[2021-12-13 06:42] LABS: CALCIUM, SERUM 7.6 mg/dL (8.5-10.1); CARBON DIOXIDE 29 mmol/L (21-32); GLUCOSE 184 mg/dL (74-106); UREA NITROGEN, BLOOD 27 mg/dL (7-18)
--- NOTE | 2021-12-13 08:30 | NUR ---
RN NOTES per Dr Colón stop sedation at this time for weaning from vent. titrated Diprivan per protocol.
[2021-12-13] MEDS: DEXAMETHASONE SOD PHOSPHATE 10 MG/ML VIAL IV SCH (09:03)
[2021-12-13] MEDS: PANTOPRAZOLE 40 MG TABLET.DR PO SCH (09:03)
[2021-12-13] MEDS: FLUCONAZOLE (100 MG) 100 MG TABLET PO SCH (09:03)
[2021-12-13] MEDS: MEROPENEM 1 G in IV NS 0.9% 100 ML IV SCH (09:03)
[2021-12-13] MEDS: NYSTATIN TOP POWDER 15 GM BOTTLE TP SCH ×2 (09:04→16:29)
[2021-12-13] MEDS: VANCOMYCIN 0.75 GM in IV D5W 250 ML IV SCH ×2 (09:06→21:03)
--- NOTE | 2021-12-13 09:30 | NUR ---
RN NOTES PATIENT FAIL WEANING FROM VENT BACK TO THE SEDATION. PER dR MATA ORDER, RESTARTED DIPRIVAN TITRATED UP BY PROTOCOL, PATIENT'S BROTHER NEXT TO THE BED, SEEN PATIENT VIA HOSPITALIST AND GOAL IS INCREASE FEEDING IF NO RESIDUAL 35ML.
[2021-12-13 12:14] LABS: ABG BASE EXCESS 4.6 mmol/L; ABG OXYGEN SATURATION 97.9 % (92.0-98.5); ABG PCO2 36.3 mmHg (35.0-45.0); ABG PH 7.503 (7.350-7.450); ABG PO2 111.4 mmHg (75.0-100.0); AaDO2 132.1 mmHg; COHb 0.3 % (0.5-1.5); MetHb 0.1 % (0.0-1.5); O2Hb 97.5 % (94.0-97.0); SITE, ABG Right Radial; VENT MODE, BG AC 16 400 40% +5
--- NOTE | 2021-12-13 13:23 | NUR ---
RN NOTES BS-125MG/DL, DAUGHTER NEXT TO THE BED. WILL FOLLOW UP.
[2021-12-13] MEDS: ALBUTEROL FS 2.5 MG/3 ML VIAL.NEB NEB SCH ×2 (16:11→23:09)
[2021-12-13] MEDS: GLUCERNA 1.2 1,000 ML BOTTLE NG SCH (16:35)
--- NOTE | 2021-12-13 18:30 | NUR ---
rn notes pm car done , suction mouth care, patient has large amount of oral secretion, bs-177 mg/dl coverage given, due medication administer. patient on diprivan 35mcg/kg/hr. running Glucerna 30 ml increased per hospitalist order as patient tolerated, keep hob elevated. assist turn and reposition q 2 hr. endorsed oncoming nurse asael.
[2021-12-13] MEDS: ATORVASTATIN 40 MG TABLET PO SCH (21:03)
[2021-12-13] MEDS: TAMSULOSIN 0.4 MG CAP.SR.24H PO SCH (21:03)
[2021-12-13] MEDS: INSULIN GLARGINE, 100 UNIT/ML CARTRIDGE SQ SCH (23:31)
[2021-12-14] VITALS (62 sets, daily range): BP systolic 80–134; BP diastolic 48–79
[2021-12-14] MEDS: PROPOFOL 100 ML IV PRN ×3 (02:09→17:30)
[2021-12-14 04:28] LABS: EOSINOPHILS % (AUTO) 0.2 % (0.0-6.0); HEMATOCRIT 30 % (39-51); HEMOGLOBIN 10.5 g/dL (13.5-17.5); LYMPHOCYTES # (AUTO) 0.4 K/uL (0.8-4.8); LYMPHOCYTES % (AUTO) 9.7 % (20.0-44.0); MEAN CORPUSCULAR HGB CONC 35 g/dl (31.0-36.0); MEAN CORPUSCULAR VOLUME 87 fL (80-96); MONOCYTES # (AUTO) 0.4 K/uL (0.1-1.30); MONOCYTES % (AUTO) 9.1 % (2.0-12.0); NEUTROPHILS # (AUTO) 3.7 K/uL (1.8-8.9); PLATELET COUNT (AUTO) 421 K/uL (150-450); RED BLOOD CELL COUNT(AUTO) 3.51 MIL/uL (4.5-6.0); WHITE BLOOD COUNT (AUTO) 4.5 K/uL (4.3-11.0)
[2021-12-14 04:44] LABS: CALCIUM, SERUM 8.6 mg/dL (8.5-10.1); POTASSIUM 4.1 mmol/L (3.5-5.1)
[2021-12-14] MEDS: BLOOD SUGAR DIAGNOSTIC 1 EACH STRIP IN SCH ×3 (05:57→17:15)
[2021-12-14] MEDS: ALBUTEROL FS 2.5 MG/3 ML VIAL.NEB NEB SCH ×3 (07:35→23:24)
--- NOTE | 2021-12-14 07:40 | NUR ---
ICU/RN PT IS INTUBATED ON THE VENT AC MODE.FIO2-40%,PEEP-5.SAT O2-100%.SEDATED WITH DIPRIVAN. V/S STABLE.OFF LEVOPHED.RESPONSIVE ON PAIN STIMULATION.RIGHT SUBCLAVIAN TLC.F/C IN PLACE DRAINING WITH YELLOW URINE.REDNESS ON THE LOWER BACK NOTED.COVERED WITH MEPILEX .SUCTION PROVIDED.PT HAS A LOT OF SECRETIONS. REPOSITION FOR COMFORT.LABS REVIEW. AWARE.
[2021-12-14] MEDS: PANTOPRAZOLE 40 MG TABLET.DR PO SCH (08:49)
[2021-12-14] MEDS: DEXAMETHASONE SOD PHOSPHATE 10 MG/ML VIAL IV SCH (08:49)
[2021-12-14] MEDS: NYSTATIN TOP POWDER 15 GM BOTTLE TP SCH ×2 (08:51→17:15)
[2021-12-14] MEDS: VANCOMYCIN 0.75 GM in IV D5W 250 ML IV SCH (08:57)
--- NOTE | 2021-12-14 09:00 | NUR ---
ICU/RN DUE MEDS ARE GIVEN ORDERED.SEDATION VACATION PROVIDED.PT OPEN HIS EYES ,NOT FOLLOWS COMMAND,RESPONSIVE ON PAIN STIMULATION .HAS SEVERE DEMENTIA. CONTINUE MONITORING.
[2021-12-14] MEDS: GLUCERNA 1.2 1,000 ML BOTTLE NG SCH (09:28)
[2021-12-14] MEDS ORDERED: IV NS 0.9% 1,000 ML IV ONE (10:00)
[2021-12-14] MEDS: INSULIN REGULAR, HUMAN 100 UNIT/ML 3 ML VIAL SQ PRN ×2 (12:59→17:30)
--- NOTE | 2021-12-14 18:15 | NUR ---
icu/rn pm care provided.due meds are given as ordered.suction provided.reposition for comfort.continue monitoring
--- NOTE | 2021-12-14 19:35 | NUR ---
BILL POSTER INSTALLER NOTES RECEIVED PT FOR CONTINUITY OF CARE. PATIENT SEDATED IN NO S/SX OF ACUTE DISTRESS AT THIS TIME; CURRENTLY ON MECHANICAL VENT; SETTING PRESCRIBED, WITH 02 SAT >95% AT THIS TIME. RECEIVED PT WITH RUNNING PROPOFOL DRIP RECEIVED @35MCG/KG/MIN RUNNING, MONITORED AND ADJUSTED PER PROTOCOL. WITH IVF OF NS@75ML/HR . WITH OGT SECURED AND INTACT CONNECTED TO TUBE FEEDING OF GLUCERNA RUNNING @30CC/HR; NO RESIDUAL AT THE TIME OF RECEIVED. WITH DUENAS CATH IN PLACE, MODERATE URINE OUTPUT NOTED >100. WILL ENSURE SAFETY MEASURES WITHIN THE SHIFT. PATIENT BED ALARM IS ON. HEAD OF BED ELEVATED. BED IS LOCKED, IN LOWEST POSITION AND SIDE RAILS UP. CALL LIGHT WITHIN REACH OF THE PATIENT. APPLICABLE ISOLATION PRECAUTIONS IN PLACE. WILL CONTINUE TO MONITOR AND REASSESS FOR ANY CHANGES AND WILL CARRY OUT ANY ONGOING AND ACTIVE MD ORDER.
[2021-12-14] MEDS: TAMSULOSIN 0.4 MG CAP.SR.24H PO SCH (21:02)
[2021-12-14] MEDS: ATORVASTATIN 40 MG TABLET PO SCH (21:02)
[2021-12-14] MEDS: MUPIROCIN OINT 2% 22 GM TUBE NS SCH (21:02)
[2021-12-14] MEDS: INSULIN GLARGINE, 100 UNIT/ML CARTRIDGE SQ SCH (21:59)
[2021-12-15] VITALS (54 sets, daily range): BP systolic 77–134; BP diastolic 41–75
[2021-12-15] MEDS: INSULIN REGULAR, HUMAN 100 UNIT/ML 3 ML VIAL SQ PRN ×3 (00:02→23:15)
[2021-12-15] MEDS: BLOOD SUGAR DIAGNOSTIC 1 EACH STRIP IN SCH ×5 (00:02→23:15)
--- NOTE | 2021-12-15 01:00 | NUR ---
TELEVISION CAMERA OPERATOR NOTES REPORT GIVEN TO ELVA HANSON FOR DENG.
--- NOTE | 2021-12-15 01:01 | NUR ---
ICU/ICE CREAM MACHINE OPERATOR RECIEVED REPORT FROM NIGHT NURSE BROOKLYNN MONET FOR DENG.
[2021-12-15] MEDS: PROPOFOL 100 ML IV PRN ×4 (04:43→20:13)
[2021-12-15 05:11] LABS: BASOPHILS % (AUTO) 0.2 % (0.0-2.0); EOSINOPHILS % (AUTO) 0.6 % (0.0-6.0); HEMATOCRIT 30 % (39-51); HEMOGLOBIN 10.4 g/dL (13.5-17.5); LYMPHOCYTES # (AUTO) 0.5 K/uL (0.8-4.8); LYMPHOCYTES % (AUTO) 11.5 % (20.0-44.0); MEAN CORPUSCULAR HGB CONC 35 g/dl (31.0-36.0); MEAN CORPUSCULAR VOLUME 86 fL (80-96); MONOCYTES # (AUTO) 0.4 K/uL (0.1-1.30); MONOCYTES % (AUTO) 9.2 % (2.0-12.0); NEUTROPHILS # (AUTO) 3.7 K/uL (1.8-8.9); NEUTROPHILS % (AUTO) 78.5 % (43.0-81.0); PLATELET COUNT (AUTO) 428 K/uL (150-450); RED BLOOD CELL COUNT(AUTO) 3.47 MIL/uL (4.5-6.0); WHITE BLOOD COUNT (AUTO) 4.7 K/uL (4.3-11.0)
--- NOTE | 2021-12-15 05:15 | NUR ---
ICU/MANUAL QA TESTER 0430-RESIDUAL CHECK IS 100ML WILL MONITOR THIS PT AND HIS RESIDUALS. 0500-HAD TO DECREASE SEDATION TO 30MCG FROM 35MCG DUE TO THE FACT BLOOD PRESSURE WAS DROPPING. WILL CONTINUE TO MONITOR THIS PT. 0610-BLOOD SUGAR IS 88, NO COVERAGE
[2021-12-15 05:38] LABS: CARBON DIOXIDE 33 mmol/L (21-32); CHLORIDE 101 mmol/L (98-107); CREATININE 0.9 mg/dL (0.6-1.3); GLUCOSE 105 mg/dL (74-106); SODIUM SERUM 136 mmol/L (136-145); UREA NITROGEN, BLOOD 28 mg/dL (7-18)
[2021-12-15] MEDS: IV NS 0.9% 250 ML IV PRN (06:27)
[2021-12-15 07:23] LABS: LYMPHOCYTES % (MANUAL) 9 % (16-48); MONOCYTES % (MANUAL) 7 % (0-11.0); NEUTROPHILS % (MANUAL) 84 (42-76)
[2021-12-15] MEDS: ALBUTEROL FS 2.5 MG/3 ML VIAL.NEB NEB SCH ×2 (07:35→23:58)
--- NOTE | 2021-12-15 07:40 | NUR ---
ICU/RN PT IS INTUBATED ON THE VENT AC MODE.SAT O2-100%.SEDATED WITH DIPRIVAN .RIGHT UPPER ARM PICC LINE.OG TUBE INFUSING WITH GLUCERNA.F/C DRAINING WITH YELLOW URINE.LABS REVIEW. NOTIFIED.AAMIR PROVIDED.REPOSITION FOR COMFORT.
[2021-12-15] MEDS ORDERED: VANCOMYCIN 0.75 GM in IV D5W 250 ML IV SCH (08:00)
[2021-12-15] MEDS: MUPIROCIN OINT 2% 22 GM TUBE NS SCH ×2 (08:15→20:39)
[2021-12-15] MEDS: PANTOPRAZOLE 40 MG TABLET.DR PO SCH (08:15)
[2021-12-15] MEDS: DEXAMETHASONE SOD PHOSPHATE 10 MG/ML VIAL IV SCH (08:15)
[2021-12-15] MEDS: NYSTATIN TOP POWDER 15 GM BOTTLE TP SCH ×2 (08:16→17:41)
[2021-12-15 09:36] LABS: ABG BASE EXCESS 4.8 mmol/L; ABG OXYGEN SATURATION 98.1 % (92.0-98.5); ABG PCO2 36.1 mmHg (35.0-45.0); ABG PH 7.507 (7.350-7.450); ABG PO2 114.5 mmHg (75.0-100.0); AaDO2 129.2 mmHg; COHb 0.3 % (0.5-1.5); MetHb 0.2 % (0.0-1.5); O2Hb 97.6 % (94.0-97.0); PEEP,BG 5 cm H2O; SITE, ABG Right Radial; VENT MODE, BG AC 16 400 40% +5; VT, ABG 400 mL
--- NOTE | 2021-12-15 10:00 | NUR ---
ICU/RN DUE MEDS ARE GIVEN ORDERED. SEDATION VACATION PROVIDED.PT IS AWAKE, OPEN EYES.NOT FOLLOWS COMMAND.HAS SEVERE DEMENTIA.PLACED BACK ON DIPRIVAN .CONTINUE MONITORING.
[2021-12-15] MEDS: IV NS 0.9% 1,000 ML IV PRN (12:11)
[2021-12-15] MEDS: GLUCERNA 1.2 1,000 ML BOTTLE NG SCH (16:56)
--- NOTE | 2021-12-15 18:00 | NUR ---
ICU/RN PM CARE PROVIDED.DUE MEDS ARE GIVEN ORDERED.V/S STABLE ,AFEBRILE.CONTINUE MONITORING.
--- NOTE | 2021-12-15 19:35 | NUR ---
FUNERAL HOME GENERAL MANAGER NOTES RECEIVED PT FOR CONTINUITY OF CARE. PATIENT SEDATED IN NO S/SX OF ACUTE DISTRESS AT THIS TIME; CURRENTLY ON MECHANICAL VENT; SETTING PRESCRIBED, WITH 02 SAT >95% AT THIS TIME. RECEIVED PT WITH RUNNING PROPOFOL DRIP RECEIVED @30MCG/KG/MIN RUNNING, MONITORED AND ADJUSTED PER PROTOCOL. WITH IVF OF NS@50ML/HR . WITH OGT SECURED AND INTACT CONNECTED TO TUBE FEEDING OF GLUCERNA RUNNING @30CC/HR; 10CC RESIDUAL AT THE TIME OF RECEIVED. WITH DUENAS CATH IN PLACE, MODERATE URINE OUTPUT NOTED >100. WILL ENSURE SAFETY MEASURES WITHIN THE SHIFT. PATIENT BED ALARM IS ON. HEAD OF BED ELEVATED. BED IS LOCKED, IN LOWEST POSITION AND SIDE RAILS UP. CALL LIGHT WITHIN REACH OF THE PATIENT. APPLICABLE ISOLATION PRECAUTIONS IN PLACE. WILL CONTINUE TO MONITOR AND REASSESS FOR ANY CHANGES AND WILL CARRY OUT ANY ONGOING AND ACTIVE MD ORDER.
[2021-12-15] MEDS: TAMSULOSIN 0.4 MG CAP.SR.24H PO SCH (21:20)
[2021-12-15] MEDS: ATORVASTATIN 40 MG TABLET PO SCH (21:20)
[2021-12-15] MEDS: INSULIN GLARGINE, 100 UNIT/ML CARTRIDGE SQ SCH (21:25)
[2021-12-16] VITALS (43 sets, daily range): BP systolic 84–144; BP diastolic 53–81
--- NOTE | 2021-12-16 | NUR ---
SUPERVISOR AREA NOTES PATIENT REMAINED TO BE IN NO SIGNS OF ACUTE RESPIRATORY DISTRESS , VITAL SIGNS STABLE AT THIS TIME. REGULAR TURNING AND REPOSITIONING DONE Q2H AND SUCTIONING RENDERED. WILL CONTINUE TO MONITOR AND REASSESS FOR ANY CHANGES THROUGHOUT THE SHIFT.
[2021-12-16 04:34] LABS: BASOPHILS % (AUTO) 0.1 % (0.0-2.0); EOSINOPHILS % (AUTO) 1.1 % (0.0-6.0); HEMATOCRIT 30 % (39-51); HEMOGLOBIN 10.4 g/dL (13.5-17.5); LYMPHOCYTES # (AUTO) 0.7 K/uL (0.8-4.8); LYMPHOCYTES % (AUTO) 16.5 % (20.0-44.0); MEAN CORPUSCULAR HGB CONC 34 g/dl (31.0-36.0); MEAN CORPUSCULAR VOLUME 86 fL (80-96); MONOCYTES # (AUTO) 0.4 K/uL (0.1-1.30); MONOCYTES % (AUTO) 8.8 % (2.0-12.0); NEUTROPHILS # (AUTO) 3.2 K/uL (1.8-8.9); NEUTROPHILS % (AUTO) 73.5 % (43.0-81.0); PLATELET COUNT (AUTO) 401 K/uL (150-450); RED BLOOD CELL COUNT(AUTO) 3.53 MIL/uL (4.5-6.0); WHITE BLOOD COUNT (AUTO) 4.3 K/uL (4.3-11.0)
[2021-12-16] MEDS: BLOOD SUGAR DIAGNOSTIC 1 EACH STRIP IN SCH ×3 (05:13→17:29)
[2021-12-16] MEDS: INSULIN REGULAR, HUMAN 100 UNIT/ML 3 ML VIAL SQ PRN ×3 (05:14→17:31)
[2021-12-16] MEDS: DEXTROSE 50%-WATER 50 ML DISP.SYRIN IV PRN (05:16)
[2021-12-16 05:44] LABS: CALCIUM, SERUM 7.6 mg/dL (8.5-10.1); CARBON DIOXIDE 29 mmol/L (21-32); CHLORIDE 103 mmol/L (98-107); CREATININE 0.8 mg/dL (0.6-1.3); GLUCOSE 64 mg/dL (74-106); POTASSIUM 3.9 mmol/L (3.5-5.1); SODIUM SERUM 138 mmol/L (136-145); UREA NITROGEN, BLOOD 24 mg/dL (7-18)
[2021-12-16] MEDS: PROPOFOL 100 ML IV PRN ×3 (06:14→23:00)
[2021-12-16 06:58] LABS: BAND % (MANUAL) 11 % (0.0-5.0); EOSINOPHILS % (MANUAL) 1 % (0-4); LYMPHOCYTES % (MANUAL) 16 % (16-48); MONOCYTES % (MANUAL) 5 % (0-11.0); NEUTROPHILS % (MANUAL) 65 (42-76)
--- NOTE | 2021-12-16 07:16 | NUR ---
SHALE PLANER OPERATOR CLOSING NOTE: PATIENT REMAINS IN ROOM IN NO SIGNS OF RESPIRATORY DISTRESS, PATIENT STILL ON MECH VENT; SETTINGS PRESCRIBED;TOLERATING WELL SATURATING @ >95% SP02. SAFETY MEASURES IMPLEMENTED, BED IN LOWEST POSITION, LOCKED, SIDE RAILS UP, CALL LIGHT WITHIN REACH. ALL NEEDS AND ORDERS ADDRESSED DURING THE SHIFT. IV ACCESS MAINTAINED INTACT, SECURED AND FLUSHING WELL. ALL DUE MEDS GIVEN ORDERED & SCHEDULED ; PATIENT TOLERATED WELL. IV DRIPS ALL MAINTAINED PRESCRIBED AND RUNNING PER PROTOCOL PLS REFER TO IV SPREADSHEET. ALSO HAS ON GOING TUBE FEEDING PRESCRIBED;TOLERATED WELL. PATIENT KEPT CLEAN AND COMFORTABLE WITHIN THE SHIFT. PATIENT ENDORSED TO INCOMING SHIFT RN WITH STABLE VITAL SIGN AND FOR CONTINUITY OF CARE.
--- NOTE | 2021-12-16 07:20 | NUR ---
MUTUEL DEPARTMENT MANAGER OPENING NOTES RECEIVED PT FROM SERVICE TECHNICIAN NURSE. PATIENT SEDATED IN NO S/SX OF ACUTE DISTRESS AT THIS TIME; CURRENTLY ON MECHANICAL VENT; SETTING PRESCRIBED, WITH 02 SAT >95% AT THIS TIME. RECEIVED PT WITH RUNNING PROPOFOL DRIP RECEIVED @30MCG/KG/MIN RUNNING, MONITORED AND ADJUSTED PER PROTOCOL. WITH IVF OF NS@50ML/HR. WITH OGT SECURED AND INTACT CONNECTED TO TUBE FEEDING OF GLUCERNA RUNNING @30CC/HR; 5CC RESIDUAL AT THE TIME OF RECEIVED. WITH DUENAS CATH IN PLACE, DRAINING WELL. WILL ENSURE SAFETY MEASURES WITHIN THE SHIFT. PATIENT BED ALARM IS ON. HEAD OF BED ELEVATED. BED IS LOCKED, IN LOWEST POSITION AND SIDE RAILS UP. CALL LIGHT WITHIN REACH OF THE PATIENT. APPLICABLE ISOLATION PRECAUTIONS IN PLACE. WILL CONTINUE TO MONITOR AND REASSESS FOR ANY CHANGES.
[2021-12-16] MEDS ORDERED: VANCOMYCIN 0.75 GM in IV D5W 250 ML IV SCH (08:00)
[2021-12-16] MEDS: ALBUTEROL FS 2.5 MG/3 ML VIAL.NEB NEB SCH ×3 (08:03→23:25)
[2021-12-16] MEDS: PANTOPRAZOLE 40 MG TABLET.DR PO SCH (08:37)
[2021-12-16] MEDS: DEXAMETHASONE SOD PHOSPHATE 10 MG/ML VIAL IV SCH (08:37)
[2021-12-16] MEDS: MUPIROCIN OINT 2% 22 GM TUBE NS SCH ×2 (09:29→21:20)
[2021-12-16] MEDS: NYSTATIN TOP POWDER 15 GM BOTTLE TP SCH ×2 (09:30→16:17)
[2021-12-16] MEDS: VANCOMYCIN 0.75 GM in IV D5W 250 ML IV SCH (09:36)
[2021-12-16] MEDS: IV NS 0.9% 1,000 ML IV PRN (09:54)
[2021-12-16] MEDS: GLUCERNA 1.2 1,000 ML BOTTLE NG SCH (17:47)
--- NOTE | 2021-12-16 19:02 | NUR ---
SMASHER CLOSING NOTE: PATIENT REMAINS IN NO SIGNS OF RESPIRATORY DISTRESS, PATIENT STILL ON MECH VENT; SETTINGS PRESCRIBED;TOLERATING WELL SATURATING @ 98% SP02. ALL DUE MEDS GIVEN ORDERED, TOLERATED WELL. ALL NEEDS ATTENDED. KEPT PATIENT CLEAN AND DRY. IV ACCESS INFUSING PROPOFOL PRESCRIBED AND RUNNING PER PROTOCOL. ONGOING TUBE FEEDING AT 30 CC/HR, TOLERATED WELL. SAFETY MEASURES IMPLEMENTED, BED IN LOWEST POSITION, LOCKED, SIDE RAILS UP, CALL LIGHT WITHIN REACH. PATIENT ENDORSED TO INCOMING SHIFT RN FOR CONTINUITY OF CARE.
--- NOTE | 2021-12-16 19:58 | NUR ---
RN NOTE RECEIVED PATIENT IN BED, SEDATED. ON VENT WITH SETTINGS OF AC 12, FIO2 40%, TV 400, PEEP 5.0. TOLERATING WELL. HOB ELEVATED BREATHING EVEN AND UNLABORED AT THIS TIME. ON TELE MONITORING, SINUS RHYTHM AT 67 BPM. SKIN WARM AND DRY. NO BLEEDING NOTED AT THIS TIME. NOTED WITH RIGHT UPPER ARM PICC LINE, RUNNING DIPRIVAN AT 30 MCG, AND IVF NS AT 50 CC/HR. NO INFILTRATION NOTED. NOTED WITH ORAL GASTRIC TUBE, PLACEMENT VERIFIED WITH AUSCULTATION. CURRENTLY RUNNING GLUCERNA 1.2 AT 25 CC/HR. MINIMAL RESIDUAL. TOLERATING FAIRLY. NOTED WITH DUENAS, NO BM AT THIS TIME. WITH DUENAS, DRAINING YELLOW URINE. NO HEMATURIA. BED LOW, IN LOCKED POSITION, WILL CONTINUE TO MONITOR.
[2021-12-16 20:46] LABS: ABG BASE EXCESS 5.2 mmol/L; ABG PCO2 38.3 mmHg (35.0-45.0); ABG PH 7.494 (7.350-7.450); ABG PO2 143.1 mmHg (75.0-100.0); COHb 0.1 % (0.5-1.5); MetHb 0.2 % (0.0-1.5); SITE, ABG Right Radial; VENT MODE, BG AC 16 400 40% +5
[2021-12-16] MEDS: ATORVASTATIN 40 MG TABLET PO SCH (21:17)
[2021-12-16] MEDS: TAMSULOSIN 0.4 MG CAP.SR.24H PO SCH (21:17)
[2021-12-16] MEDS: INSULIN GLARGINE, 100 UNIT/ML CARTRIDGE SQ SCH (22:01)
[2021-12-17] VITALS (39 sets, daily range): BP systolic 81–130; BP diastolic 50–75
[2021-12-17] MEDS: BLOOD SUGAR DIAGNOSTIC 1 EACH STRIP IN SCH ×5 (00:14→23:03)
[2021-12-17 04:30] LABS: CALCIUM, SERUM 7.8 mg/dL (8.5-10.1); CARBON DIOXIDE 31 mmol/L (21-32); CHLORIDE 101 mmol/L (98-107); CREATININE 0.9 mg/dL (0.6-1.3); GLUCOSE 79 mg/dL (74-106); POTASSIUM 4.1 mmol/L (3.5-5.1); SODIUM SERUM 137 mmol/L (136-145); UREA NITROGEN, BLOOD 21 mg/dL (7-18)
[2021-12-17 04:31] LABS: BASOPHILS % (AUTO) 0.2 % (0.0-2.0); EOSINOPHILS % (AUTO) 0.8 % (0.0-6.0); HEMATOCRIT 30 % (39-51); HEMOGLOBIN 10.5 g/dL (13.5-17.5); LYMPHOCYTES # (AUTO) 0.7 K/uL (0.8-4.8); LYMPHOCYTES % (AUTO) 10.9 % (20.0-44.0); MEAN CORPUSCULAR HGB CONC 35 g/dl (31.0-36.0); MEAN CORPUSCULAR VOLUME 86 fL (80-96); MONOCYTES # (AUTO) 0.5 K/uL (0.1-1.30); MONOCYTES % (AUTO) 6.8 % (2.0-12.0); NEUTROPHILS # (AUTO) 5.4 K/uL (1.8-8.9); NEUTROPHILS % (AUTO) 81.3 % (43.0-81.0); PLATELET COUNT (AUTO) 477 K/uL (150-450); RED BLOOD CELL COUNT(AUTO) 3.49 MIL/uL (4.5-6.0); WHITE BLOOD COUNT (AUTO) 6.6 K/uL (4.3-11.0)
[2021-12-17] MEDS: IV NS 0.9% 1,000 ML IV PRN (05:58)
[2021-12-17] MEDS: PROPOFOL 100 ML IV PRN ×3 (07:02→20:58)
--- NOTE | 2021-12-17 07:15 | NUR ---
JAIL KEEPER OPENING NOTES RECEIVED PATIENT IN BED, SEDATED. ON VENT WITH SETTINGS OF AC 12, FIO2 40%, TV 400, PEEP 5.0. TOLERATING WELL. HOB ELEVATED BREATHING EVEN AND UNLABORED AT THIS TIME. NO SOB OR ANY ACUTE DISTRESS NOTED AT THE TIME. ON TELE MONITORING, SINUS RHYTHM AT 69 BPM. NOTED WITH RIGHT UPPER ARM PICC LINE, RUNNING DIPRIVAN AT 30 MCG, AND IVF NS AT 50 CC/HR. IV ACCESS FLUSHED WELL, PATENT AND INTACT. NO INFILTRATION NOTED. NOTED WITH ORAL GASTRIC TUBE, PLACEMENT VERIFIED WITH AUSCULTATION. CURRENTLY RUNNING GLUCERNA 1.2 AT 25 CC/HR. WITH RESIDUAL <5. TOLERATING FAIRLY. NOTED WITH DUENAS, DRAINING YELLOW URINE. NO HEMATURIA. ALL SAFETY MEASURES IN PLACE. HOB ELEVATED, BED LOW, IN LOCKED POSITION, WILL CONTINUE TO MONITOR PATIENT ACCORDINGLY.
[2021-12-17] MEDS: PANTOPRAZOLE 40 MG TABLET.DR PO SCH (08:08)
[2021-12-17] MEDS: DEXAMETHASONE SOD PHOSPHATE 10 MG/ML VIAL IV SCH (08:09)
[2021-12-17] MEDS: ALBUTEROL FS 2.5 MG/3 ML VIAL.NEB NEB SCH ×2 (08:15→15:30)
[2021-12-17] MEDS: MUPIROCIN OINT 2% 22 GM TUBE NS SCH ×2 (08:17→21:05)
[2021-12-17] MEDS: NYSTATIN TOP POWDER 15 GM BOTTLE TP SCH ×2 (08:17→16:42)
[2021-12-17] MEDS: VANCOMYCIN 0.75 GM in IV D5W 250 ML IV SCH (09:52)
[2021-12-17 12:50] LABS: BAND % (MANUAL) 6 % (0.0-5.0); LYMPHOCYTES % (MANUAL) 8 % (16-48); METAMYELOCYTES % 1 % (0-0); MONOCYTES % (MANUAL) 6 % (0-11.0); MYELOCYTES % 1 % (0-0); NEUTROPHILS % (MANUAL) 78 (42-76)
[2021-12-17] MEDS ORDERED: POLYETHYLENE GLYCOL 3350 17 GM POWD.PACK PO PRN (13:30)
[2021-12-17] MEDS: GLUCERNA 1.2 1,000 ML BOTTLE NG SCH (17:14)
[2021-12-17] MEDS: INSULIN REGULAR, HUMAN 100 UNIT/ML 3 ML VIAL SQ PRN ×2 (18:01→23:03)
--- NOTE | 2021-12-17 19:18 | NUR ---
COUNCILMAN CLOSING NOTE: PATIENT REMAINS IN NO SIGNS OF RESPIRATORY DISTRESS, PATIENT STILL ON MECH VENT; SETTINGS PRESCRIBED;TOLERATING WELL SATURATING @ 99% SP02. ALL DUE MEDS GIVEN ORDERED, TOLERATED WELL. ALL NEEDS ATTENDED. KEPT PATIENT CLEAN AND DRY. IV ACCESS INFUSING PROPOFOL PRESCRIBED AND RUNNING PER PROTOCOL. ONGOING TUBE FEEDING AT 30 CC/HR, TOLERATED WELL. SAFETY MEASURES IN PLACE, BED IN LOWEST POSITION, LOCKED, SIDE RAILS UP. PATIENT ENDORSED TO ONCOMING SHIFT RN FOR CONTINUITY OF CARE.
--- NOTE | 2021-12-17 19:40 | NUR ---
RN NOTE RECEIVED PATIENT IN BED, ON [facility] VENT TOLERATING SETTINGS WELL. NO S/S OF RESPIRATORY DISTRESS. SEDATED ON DIPRIVAN @ 30MCG/KG/MIN. IV ACCESS PATENT AND INTACT. WITH OGT RUNNING GLUCERNA 1.2 @ 30CC/HR. RESIDUAL OF 5ML NOTED. DUENAS CATH DRAINING URINE VIA GRAVITY. BED LOCKED AND IN LOWEST POSITION. CALL LIGHT WITHIN REACH. ALL NEEDS ANTICIPATED
[2021-12-17] MEDS: TAMSULOSIN 0.4 MG CAP.SR.24H PO SCH (21:06)
[2021-12-17] MEDS: ATORVASTATIN 40 MG TABLET PO SCH (21:06)
[2021-12-17] MEDS: INSULIN GLARGINE, 100 UNIT/ML CARTRIDGE SQ SCH (23:02)
[2021-12-18] VITALS (28 sets, daily range): BP systolic 84–142; BP diastolic 53–79
[2021-12-18] MEDS: ALBUTEROL FS 2.5 MG/3 ML VIAL.NEB NEB SCH ×4 (00:35→23:35)
[2021-12-18 04:25] LABS: BASOPHILS % (AUTO) 0.3 % (0.0-2.0); EOSINOPHILS % (AUTO) 1.5 % (0.0-6.0); HEMATOCRIT 29 % (39-51); HEMOGLOBIN 10.1 g/dL (13.5-17.5); LYMPHOCYTES # (AUTO) 0.7 K/uL (0.8-4.8); LYMPHOCYTES % (AUTO) 14.8 % (20.0-44.0); MEAN CORPUSCULAR HGB CONC 35 g/dl (31.0-36.0); MEAN CORPUSCULAR VOLUME 84 fL (80-96); MONOCYTES # (AUTO) 0.4 K/uL (0.1-1.30); MONOCYTES % (AUTO) 9.4 % (2.0-12.0); NEUTROPHILS # (AUTO) 3.4 K/uL (1.8-8.9); PLATELET COUNT (AUTO) 492 K/uL (150-450); RED BLOOD CELL COUNT(AUTO) 3.47 MIL/uL (4.5-6.0); WHITE BLOOD COUNT (AUTO) 4.5 K/uL (4.3-11.0)
[2021-12-18 04:43] LABS: CALCIUM, SERUM 7.9 mg/dL (8.5-10.1); CARBON DIOXIDE 31 mmol/L (21-32); CHLORIDE 101 mmol/L (98-107); CREATININE 0.8 mg/dL (0.6-1.3); GLUCOSE 111 mg/dL (74-106); POTASSIUM 4.3 mmol/L (3.5-5.1); SODIUM SERUM 136 mmol/L (136-145); UREA NITROGEN, BLOOD 20 mg/dL (7-18)
[2021-12-18] MEDS: BLOOD SUGAR DIAGNOSTIC 1 EACH STRIP IN SCH ×4 (05:14→23:20)
[2021-12-18] MEDS: INSULIN REGULAR, HUMAN 100 UNIT/ML 3 ML VIAL SQ PRN ×3 (05:14→18:31)
[2021-12-18] MEDS: PROPOFOL 100 ML IV PRN ×2 (06:53→18:39)
--- NOTE | 2021-12-18 06:59 | NUR ---
RN NOTE PATIENT IN BED, ON [facility] V[facility] TOLERATING SETTINGS WELL. NO S/S OF RESPIRATORY DISTRESS. SEDATED ON DIPRIVAN @ 30MCG/KG/MIN. IV ACCESS PATENT AND INTACT. WITH OGT RUNNING GLUCERNA 1.2 @ 30CC/HR. NO RESIDUAL NOTED. DUENAS CATH 700 CC OUTPUT YELLOW URINE. TURNED AND REPOSITIONED 2 QH. KEPT CLEAN AND DRY. BED LOCKED AND IN LOWEST POSITION. CALL LIGHT WITHIN REACH. WILL ENDORSE TO AM SHIFT.
[2021-12-18] MEDS ORDERED: PHARMACY TO CHANGE PO MEDS TO GT/NG XX PRN (08:00)
[2021-12-18] MEDS ORDERED: CLONIDINE HCL 0.1 MG TABLET GT PRN (08:15)
[2021-12-18] MEDS ORDERED: POLYETHYLENE GLYCOL 3350 17 GM POWD.PACK GT PRN (08:16)
[2021-12-18] MEDS: PANTOPRAZOLE 40 MG/PACK PACK NG SCH (09:08)
[2021-12-18] MEDS: DEXAMETHASONE SOD PHOSPHATE 10 MG/ML VIAL IV SCH (09:08)
[2021-12-18] MEDS: NYSTATIN TOP POWDER 15 GM BOTTLE TP SCH ×2 (09:09→18:31)
[2021-12-18] MEDS: MUPIROCIN OINT 2% 22 GM TUBE NS SCH ×2 (09:09→21:54)
[2021-12-18] MEDS: VANCOMYCIN 0.75 GM in IV D5W 250 ML IV SCH (11:07)
[2021-12-18 16:45] LABS: BAND % (MANUAL) 2 % (0.0-5.0); LYMPHOCYTES % (MANUAL) 28 % (16-48); NEUTROPHILS % (MANUAL) 63 (42-76)
[2021-12-18 16:46] LABS: EOSINOPHILS % (MANUAL) 2 % (0-4); MONOCYTES % (MANUAL) 5 % (0-11.0)
--- NOTE | 2021-12-18 17:08 | NUR ---
RT PATIENT PLACED BACK ON AC MODE FOR SOB. RN NOTIFIED Addendum: 12/18/21 at 1710 by LOS MARTINI RT Amended: Links added.
[2021-12-18] MEDS: GLUCERNA 1.2 1,000 ML BOTTLE NG SCH (18:31)
--- NOTE | 2021-12-18 19:33 | NUR ---
END OF SHIFT NOTE: CPAP TRIAL FROM 0800 TO 1630 THEN BACK TO AC. DIPRIVAN OFF DURING AT TIME TOO. PT CHECKED ON HOURLY AND PRN BY NURSING STAFF.
[2021-12-18] MEDS: TAMSULOSIN 0.4 MG CAP.SR.24H PO SCH (21:54)
[2021-12-18] MEDS: ATORVASTATIN 40 MG TABLET GT SCH (21:54)
[2021-12-18] MEDS ORDERED: INSULIN GLARGINE, 100 UNIT/ML CARTRIDGE SQ ONE (23:47)
[2021-12-18] MEDS: INSULIN GLARGINE, 100 UNIT/ML CARTRIDGE SQ SCH (23:50)
[2021-12-19] VITALS (37 sets, daily range): BP systolic 82–127; BP diastolic 50–90
[2021-12-19] MEDS: PROPOFOL 100 ML IV PRN ×4 (02:02→20:59)
[2021-12-19 04:06] LABS: ABG BASE EXCESS 3.7 mmol/L; ABG OXYGEN SATURATION 94.9 % (92.0-98.5); ABG PCO2 34.9 mmHg (35.0-45.0); ABG PH 7.503 (7.350-7.450); ABG PO2 70.4 mmHg (75.0-100.0); AaDO2 102.5 mmHg; COHb 0.3 % (0.5-1.5); MetHb 0.3 % (0.0-1.5); O2Hb 94.3 % (94.0-97.0); SITE, ABG Right Radial
[2021-12-19 05:00] LABS: BASOPHILS % (AUTO) 0.4 % (0.0-2.0); EOSINOPHILS % (AUTO) 1.4 % (0.0-6.0); HEMATOCRIT 29 % (39-51); HEMOGLOBIN 10.2 g/dL (13.5-17.5); LYMPHOCYTES # (AUTO) 0.6 K/uL (0.8-4.8); LYMPHOCYTES % (AUTO) 12.1 % (20.0-44.0); MEAN CORPUSCULAR HGB CONC 35 g/dl (31.0-36.0); MEAN CORPUSCULAR VOLUME 83 fL (80-96); MONOCYTES # (AUTO) 0.5 K/uL (0.1-1.30); MONOCYTES % (AUTO) 9.3 % (2.0-12.0); NEUTROPHILS # (AUTO) 3.8 K/uL (1.8-8.9); NEUTROPHILS % (AUTO) 76.8 % (43.0-81.0); PLATELET COUNT (AUTO) 496 K/uL (150-450); RED BLOOD CELL COUNT(AUTO) 3.51 MIL/uL (4.5-6.0)
[2021-12-19 05:06] LABS: CALCIUM, SERUM 8.6 mg/dL (8.5-10.1); CARBON DIOXIDE 31 mmol/L (21-32); CHLORIDE 99 mmol/L (98-107); CREATININE 0.9 mg/dL (0.6-1.3); GLUCOSE 130 mg/dL (74-106); MAGNESIUM 2.4 mg/dL (1.8-2.4); PHOSPHORUS 3.3 mg/dL (2.5-4.9); POTASSIUM 4.4 mmol/L (3.5-5.1); SODIUM SERUM 133 mmol/L (136-145); UREA NITROGEN, BLOOD 20 mg/dL (7-18)
[2021-12-19] MEDS: IV NS 0.9% 250 ML IV PRN (06:23)
[2021-12-19] MEDS: BLOOD SUGAR DIAGNOSTIC 1 EACH STRIP IN SCH ×3 (06:32→18:14)
[2021-12-19] MEDS: PANTOPRAZOLE 40 MG/PACK PACK NG SCH (07:26)
--- NOTE | 2021-12-19 07:30 | NUR ---
RN NOTES PT FOUND SEMI FOWLERS DISPLAYING NO S/S OF ACUTE DISTRESS, FLACC = 0 AND BILATERAL RISE AND FALL OF THE CHEST OBSERVED. PT'S EYES ARE OPEN, RN WILL INCREASE DIPROVAN TO IMPROVE PT'S COMFORT. R PICC IS PATIENT AND INTACT. DUENAS CATH BELOW PATIENT DRAINING BY GRAVITY. VSS, RN WILL MONITOR AND TREAT THROUGHOUT SHIFT. SAFETY MEASURES IN PLACE, BED LOCKED AND IN LOWEST POSITION, SIDE RAILS UPX2, CALL LIGHT WITHIN REACH, BED ALARM ARMED.
[2021-12-19] MEDS: ALBUTEROL FS 2.5 MG/3 ML VIAL.NEB NEB SCH ×3 (08:33→23:21)
[2021-12-19] MEDS: MUPIROCIN OINT 2% 22 GM TUBE NS SCH ×2 (09:09→21:37)
[2021-12-19] MEDS: NYSTATIN TOP POWDER 15 GM BOTTLE TP SCH ×2 (09:10→17:50)
[2021-12-19] MEDS: DEXAMETHASONE SOD PHOSPHATE 10 MG/ML VIAL IV SCH (09:10)
--- NOTE | 2021-12-19 09:20 | NUR ---
RN NOTES SEDATION VACATION NOT DONE BECAUSE PT IS BREATHING WELL ABOVE THE VENT, RR = 21 AND AC SET TO 12
--- NOTE | 2021-12-19 10:00 | NUR ---
MD VISIT DR HUNTLEY VISITED PT. RN AND MD SPOKE ABOUT CARE PLAN. MD VERBALIZED THAT IF PT'S MAP IS < 65, START LEVOPHED. RN ACKNOWLEDGED AND WILL MONITOR PT'S BP.
[2021-12-19] MEDS: INSULIN REGULAR, HUMAN 100 UNIT/ML 3 ML VIAL SQ PRN ×2 (12:25→18:16)
--- NOTE | 2021-12-19 15:14 | NUR ---
SW contact pt.'s regarding Tracheostomy vs. comfort care [ Harshad [phone]]. PIERRE left VM.
[2021-12-19 15:43] LABS: LYMPHOCYTES % (MANUAL) 7 % (16-48); MONOCYTES % (MANUAL) 10 % (0-11.0); NEUTROPHILS % (MANUAL) 833 (42-76)
[2021-12-19] MEDS: GLUCERNA 1.2 1,000 ML BOTTLE NG SCH (17:49)
--- NOTE | 2021-12-19 19:45 | NUR ---
RN NOTE RECIEVED PATIENT IN BED, SEDATED. MOVES TO LOCALIZED PAIN. BREATHING EVEN AND UNLABORED. NO SOB NOTED. ON VENT, WITH SETTINGS OF AC: 12, VT: 400, FIO2 30%, PEEP 5.0. TOLERATING WELL. NO DISTRESS. ON TELE MONITORING, SINUS RHYTHM AT 75 BPM. SKIN WARM AND DRY. NOTED WITH RIGHT UPPER ARM PICC LINE, RUNNING DIPRIVAN AT 50 MCG/MIN, NO INFILTRATION NOTED. NOTED WITH ORAL GASTRIC TUBE, RUNNING GLUCERNA AT 45 CC/HR. 20 CC RESIDUAL NOTED. NOTED WITH INDWELLING DUENAS CATHETER, DRAINING YELLOW URINE, NO HEMATURIA NOTED. BED LOW, IN LOCKED POSITION, CALL LIGHT WITHIN REACH, WILL CONTINUE TO MONITOR
--- NOTE | 2021-12-19 19:48 | NUR ---
RN NOTES PT FOUND SEMI FOWLERS DISPLAYING NO S/S OF ACUTE DISTRESS, FLACC = 0 AND BILATERAL RISE AND FALL OF THE CHEST OBSERVED. PT RESTING COMFORTBALY, NO STIRRING OR MOVEMENT, ROUSED UPON STERNAL RUB, [place] 3. R UA PICC IS PATIENT AND INTACT. DUENAS CATH BELOW PATIENT DRAINING BY GRAVITY. SBAR AND REPORT GIVEN TO PROPERTY MANAGEMENT SUPERVISOR RN, ALL QUESTIONS ANSWERED. SAFETY MEASURES IN PLACE, BED LOCKED AND IN LOWEST POSITION, SIDE RAILS UPX2, CALL LIGHT WITHIN REACH, BED ALARM ARMED.
[2021-12-19] MEDS: TAMSULOSIN 0.4 MG CAP.SR.24H PO SCH (21:35)
[2021-12-19] MEDS: ATORVASTATIN 40 MG TABLET GT SCH (21:35)
[2021-12-19] MEDS: INSULIN GLARGINE, 100 UNIT/ML CARTRIDGE SQ SCH (21:36)
[2021-12-20] VITALS (63 sets, daily range): BP systolic 75–147; BP diastolic 48–70
[2021-12-20] MEDS: BLOOD SUGAR DIAGNOSTIC 1 EACH STRIP IN SCH ×5 (00:36→23:04)
[2021-12-20] MEDS: INSULIN REGULAR, HUMAN 100 UNIT/ML 3 ML VIAL SQ PRN ×2 (00:37→18:05)
[2021-12-20] MEDS ORDERED: NOREPINEPHRINE 8MG/250ML RTU 250 ML IV ONE (01:08)
[2021-12-20] MEDS: NOREPINEPHRINE 8 MG in IV NS 0.9% 242 ML IV PRN (01:17)
--- NOTE | 2021-12-20 01:27 | NUR ---
RN NOTE SYSTOLIC BLOOD PRESSURE HAS BEEN IN THE LOW 80'S PERSISTENTLY. PATIENT WITH PRN ORDER OF LEVOPHED 8 MG. CONTACTED MD FINANCE LECTURER, PANTERA TO OBTAIN A PARAMATER. PER MD, TITRATE LEVOPHED 8 MG TO KEEP SBP GREATER THAN 90 MMHG. ORDER NOTED AND CARRIED OUT. STARTED LEVOPHED AT 0.1 MCG/KG/MIN. WILL CONTINUE TO MONITOR.
[2021-12-20] MEDS: PROPOFOL 100 ML IV PRN ×4 (03:10→20:35)
[2021-12-20 04:27] LABS: BASOPHILS % (AUTO) 0.3 % (0.0-2.0); EOSINOPHILS % (AUTO) 1.2 % (0.0-6.0); HEMATOCRIT 28 % (39-51); HEMOGLOBIN 9.9 g/dL (13.5-17.5); LYMPHOCYTES # (AUTO) 0.7 K/uL (0.8-4.8); LYMPHOCYTES % (AUTO) 12.1 % (20.0-44.0); MEAN CORPUSCULAR HGB CONC 36 g/dl (31.0-36.0); MEAN CORPUSCULAR VOLUME 84 fL (80-96); MONOCYTES # (AUTO) 0.5 K/uL (0.1-1.30); MONOCYTES % (AUTO) 8.2 % (2.0-12.0); NEUTROPHILS # (AUTO) 4.5 K/uL (1.8-8.9); NEUTROPHILS % (AUTO) 78.2 % (43.0-81.0); PLATELET COUNT (AUTO) 563 K/uL (150-450); RED BLOOD CELL COUNT(AUTO) 3.35 MIL/uL (4.5-6.0); WHITE BLOOD COUNT (AUTO) 5.8 K/uL (4.3-11.0)
[2021-12-20 04:53] LABS: CALCIUM, SERUM 8.1 mg/dL (8.5-10.1); CARBON DIOXIDE 31 mmol/L (21-32); CHLORIDE 100 mmol/L (98-107); CREATININE 0.8 mg/dL (0.6-1.3); GLUCOSE 109 mg/dL (74-106); MAGNESIUM 2.1 mg/dL (1.8-2.4); PHOSPHORUS 3.4 mg/dL (2.5-4.9); POTASSIUM 4.1 mmol/L (3.5-5.1); SODIUM SERUM 135 mmol/L (136-145); UREA NITROGEN, BLOOD 21 mg/dL (7-18)
[2021-12-20] MEDS: IV NS 0.9% 250 ML IV PRN (05:41)
--- NOTE | 2021-12-20 07:30 | NUR ---
RN NOTES PT FOUND SEMI FOWLERS DISPLAYING NO S/S OF ACUTE DISTRESS, FLACC = 0, RIKERS = 3 AND BILATERAL RISE AND FALL OF THE CHEST OBSERVED. R UA PICC IS PATIENT AND INTACT. DUENAS CATH BELOW PATIENT DRAINING BY GRAVITY. VSS, RN WILL MONITOR AND TREAT THROUGHOUT SHIFT. SAFETY MEASURES IN PLACE, BED LOCKED AND IN LOWEST POSITION, SIDE RAILS UPX2, CALL LIGHT WITHIN REACH, BED ALARM ARMED.
[2021-12-20] MEDS: ALBUTEROL FS 2.5 MG/3 ML VIAL.NEB NEB SCH ×3 (07:35→23:36)
[2021-12-20] MEDS: PANTOPRAZOLE 40 MG/PACK PACK NG SCH (08:03)
[2021-12-20] MEDS: DEXAMETHASONE SOD PHOSPHATE 10 MG/ML VIAL IV SCH (08:32)
[2021-12-20] MEDS: NYSTATIN TOP POWDER 15 GM BOTTLE TP SCH ×2 (08:58→17:10)
[2021-12-20] MEDS: MUPIROCIN OINT 2% 22 GM TUBE NS SCH ×2 (08:58→21:20)
--- NOTE | 2021-12-20 09:00 | NUR ---
MD VISIT RN SPOKE TO DR CANCHOLA ABOUT CURRENT STATUS OF SEDATION AND IF A SEDATION VACATION SHOULD OCCUR. MD STATED NOT TO DO A SEDATION VACATION TODAY. RN ACKNOWLEDGED AND WILL FOLLOW MD ORDERS.
[2021-12-20] MEDS: ENOXAPARIN SODIUM 40 MG/0.4 ML DISP.SYRIN SQ SCH (10:42)
[2021-12-20 15:55] LABS: EOSINOPHILS % (MANUAL) 2 % (0-4); LYMPHOCYTES % (MANUAL) 9 % (16-48); MONOCYTES % (MANUAL) 9 % (0-11.0); NEUTROPHILS % (MANUAL) 80 (42-76)
[2021-12-20] MEDS: GLUCERNA 1.2 1,000 ML BOTTLE NG SCH (17:44)
--- NOTE | 2021-12-20 19:02 | NUR ---
RN NOTES PT FOUND SEMI FOWLERS DISPLAYING NO S/S OF ACUTE DISTRESS, FLACC = 0, RIKERS = 3 AND BILATERAL RISE AND FALL OF THE CHEST OBSERVED. R UA PICC IS PATIENT AND INTACT. DUNEAS CATH BELOW PATIENT DRAINING BY GRAVITY. SBAR AND REPORT GIVEN TO COLLECTIONS TECHNICIAN RN, ALL QUESTIONS ANSWERED. SAFETY MEASURES IN PLACE, BED LOCKED AND IN LOWEST POSITION, SIDE RAILS UPX2, CALL LIGHT WITHIN REACH, BED ALARM ARMED.
[2021-12-20] MEDS: ATORVASTATIN 40 MG TABLET GT SCH (21:18)
[2021-12-20] MEDS: TAMSULOSIN 0.4 MG CAP.SR.24H PO SCH (21:19)
[2021-12-20] MEDS: INSULIN GLARGINE, 100 UNIT/ML CARTRIDGE SQ SCH (23:10)
[2021-12-21] VITALS (95 sets, daily range): BP systolic 78–144; BP diastolic 34–81
[2021-12-21] MEDS: PROPOFOL 100 ML IV PRN ×5 (02:42→22:37)
[2021-12-21 04:30] LABS: BASOPHILS # (AUTO) 0.1 K/uL (0.0-0.2); BASOPHILS % (AUTO) 0.8 % (0.0-2.0); EOSINOPHILS % (AUTO) 1.5 % (0.0-6.0); HEMATOCRIT 29 % (39-51); HEMOGLOBIN 10.3 g/dL (13.5-17.5); LYMPHOCYTES # (AUTO) 0.8 K/uL (0.8-4.8); LYMPHOCYTES % (AUTO) 11.7 % (20.0-44.0); MEAN CORPUSCULAR HGB CONC 36 g/dl (31.0-36.0); MEAN CORPUSCULAR VOLUME 83 fL (80-96); MONOCYTES # (AUTO) 0.7 K/uL (0.1-1.30); MONOCYTES % (AUTO) 9.9 % (2.0-12.0); NEUTROPHILS # (AUTO) 5.1 K/uL (1.8-8.9); NEUTROPHILS % (AUTO) 76.1 % (43.0-81.0); PLATELET COUNT (AUTO) 550 K/uL (150-450); RED BLOOD CELL COUNT(AUTO) 3.46 MIL/uL (4.5-6.0); WHITE BLOOD COUNT (AUTO) 6.8 K/uL (4.3-11.0)
[2021-12-21 04:39] LABS: CARBON DIOXIDE 31 mmol/L (21-32); CHLORIDE 101 mmol/L (98-107); CREATININE 0.8 mg/dL (0.6-1.3); GLUCOSE 106 mg/dL (74-106); PHOSPHORUS 3.1 mg/dL (2.5-4.9); POTASSIUM 3.9 mmol/L (3.5-5.1); SODIUM SERUM 138 mmol/L (136-145); UREA NITROGEN, BLOOD 21 mg/dL (7-18)
[2021-12-21] MEDS: BLOOD SUGAR DIAGNOSTIC 1 EACH STRIP IN SCH ×3 (05:36→17:45)
[2021-12-21] MEDS: NOREPINEPHRINE 8 MG in IV NS 0.9% 242 ML IV PRN (06:04)
--- NOTE | 2021-12-21 07:05 | NUR ---
RN NOTES RECEIVED PT ON BED, INTUBATED AND SEDATED , TOLERATING VENT SETTING WELL, ON TELE SB HR IN HIGH 50'S , TF AT 45CC/HR RUNNING , DUENAS DRAINING TO GRAVITY, ON DIPRIVAN AT 50 MCG/KG/MIN AND LEVO AT .08MCG/KG/MIN RUNNING FOR BP SUPPORT, R UPPER ARM PICC LINE SITE CLEAN ,DRY AND INTACT, SR UP x3, CALL LIGHT WITHIN EASY REACH, BED LOCKED AND IN LOWEST POSITION, CONTINUE TO MONITOR.
[2021-12-21] MEDS: PANTOPRAZOLE 40 MG/PACK PACK NG SCH (07:30)
[2021-12-21] MEDS: ALBUTEROL FS 2.5 MG/3 ML VIAL.NEB NEB SCH ×3 (07:35→23:28)
[2021-12-21] MEDS: DEXAMETHASONE SOD PHOSPHATE 4 MG/ML VIAL IV SCH (08:16)
[2021-12-21] MEDS: ENOXAPARIN SODIUM 40 MG/0.4 ML DISP.SYRIN SQ SCH (08:17)
[2021-12-21] MEDS: MUPIROCIN OINT 2% 22 GM TUBE NS SCH (08:18)
[2021-12-21] MEDS: NYSTATIN TOP POWDER 15 GM BOTTLE TP SCH ×2 (08:20→17:00)
--- NOTE | 2021-12-21 14:00 | NUR ---
RN NOTES ET TUBE SUCTIONING DONE, PT HAS MODERATE AMOUNT OF THICK WHITISH SECRETION , CONTINUE TO MONITOR
[2021-12-21 14:13] LABS: EOSINOPHILS % (MANUAL) 1 % (0-4); LYMPHOCYTES % (MANUAL) 10 % (16-48); METAMYELOCYTES % 2 % (0-0); MONOCYTES % (MANUAL) 7 % (0-11.0); NEUTROPHILS % (MANUAL) 80 (42-76)
[2021-12-21] MEDS: GLUCERNA 1.2 1,000 ML BOTTLE NG SCH (17:15)
[2021-12-21] MEDS: INSULIN REGULAR, HUMAN 100 UNIT/ML 3 ML VIAL SQ PRN (17:44)
--- NOTE | 2021-12-21 18:22 | NUR ---
RN NOTES PT REMAINS INTUBATED AND SEDATED, NO LEVO AT .04 MCG/KG/MIN FOR BP SUPPORT, DIPRIVAN AT 50 MCG/KG/MIN RUNNING , TF AT 45CC/HR , NO SIGNFICANT CHANGES NOTED ON THIS SHIFT , WILL ENDORSE TO SALES OPERATIONS ANALYST NURSE FOR CONTINUITY OF CARE.
[2021-12-21] MEDS: INSULIN GLARGINE, 100 UNIT/ML CARTRIDGE SQ SCH (22:00)
[2021-12-21] MEDS: TAMSULOSIN 0.4 MG CAP.SR.24H PO SCH (22:00)
[2021-12-21] MEDS: ATORVASTATIN 40 MG TABLET GT SCH (22:00)
[2021-12-22] VITALS (99 sets, daily range): BP systolic 83–138; BP diastolic 50–83
--- NOTE | 2021-12-22 00:08 | NUR ---
ICU/RN: PT NPO FOR PEG PLACEMENT.
[2021-12-22] MEDS: BLOOD SUGAR DIAGNOSTIC 1 EACH STRIP IN SCH ×5 (00:19→23:41)
[2021-12-22] MEDS: PROPOFOL 100 ML IV PRN ×4 (03:31→19:31)
[2021-12-22 04:52] LABS: BASOPHILS # (AUTO) 0.1 K/uL (0.0-0.2); BASOPHILS % (AUTO) 1.1 % (0.0-2.0); EOSINOPHILS % (AUTO) 1.6 % (0.0-6.0); HEMATOCRIT 30 % (39-51); HEMOGLOBIN 10.3 g/dL (13.5-17.5); LYMPHOCYTES # (AUTO) 0.9 K/uL (0.8-4.8); LYMPHOCYTES % (AUTO) 13.1 % (20.0-44.0); MEAN CORPUSCULAR HGB CONC 35 g/dl (31.0-36.0); MEAN CORPUSCULAR VOLUME 84 fL (80-96); MONOCYTES # (AUTO) 0.7 K/uL (0.1-1.30); MONOCYTES % (AUTO) 11.3 % (2.0-12.0); NEUTROPHILS # (AUTO) 4.7 K/uL (1.8-8.9); NEUTROPHILS % (AUTO) 72.9 % (43.0-81.0); PLATELET COUNT (AUTO) 533 K/uL (150-450); RED BLOOD CELL COUNT(AUTO) 3.53 MIL/uL (4.5-6.0); WHITE BLOOD COUNT (AUTO) 6.5 K/uL (4.3-11.0)
[2021-12-22 05:18] LABS: CREATININE 0.8 mg/dL (0.6-1.3); PHOSPHORUS 3.2 mg/dL (2.5-4.9); POTASSIUM 3.7 mmol/L (3.5-5.1)
--- NOTE | 2021-12-22 07:05 | NUR ---
RN NOTES RECEIVED PT ON BED, INTUBATED AND SEDATED , TOLERATING VENT SETTING WELL, ON TELE SR HR IN HIGH 70'S , TF AT 45CC/HR RUNNING , DUENAS DRAINING TO GRAVITY, ON DIPRIVAN AT 50 MCG/KG/MIN AND LEVO AT .02MCG/KG/MIN RUNNING FOR BP SUPPORT, R UPPER ARM PICC LINE SITE CLEAN ,DRY AND INTACT, SR UP x3, CALL LIGHT WITHIN EASY REACH, BED LOCKED AND IN LOWEST POSITION, CONTINUE TO MONITOR.
[2021-12-22] MEDS: ALBUTEROL FS 2.5 MG/3 ML VIAL.NEB NEB SCH ×3 (07:35→23:30)
[2021-12-22] MEDS: ENOXAPARIN SODIUM 40 MG/0.4 ML DISP.SYRIN SQ SCH (08:30)
[2021-12-22] MEDS: PANTOPRAZOLE 40 MG/PACK PACK NG SCH (08:30)
[2021-12-22] MEDS: DEXAMETHASONE SOD PHOSPHATE 4 MG/ML VIAL IV SCH (08:30)
[2021-12-22] MEDS: NYSTATIN TOP POWDER 15 GM BOTTLE TP SCH ×2 (08:31→16:28)
--- NOTE | 2021-12-22 08:31 | NUR ---
RN NOTES DR FIGUEROA AND OR TEAM AT THE BEDSIDE, FOR PEG PLACEMENT .
--- NOTE | 2021-12-22 09:00 | NUR ---
RN NOTES PEG PLACEMENT DONE AT THE BEDSIDE , NO COMPLICATION NOTED , CONTINUE TO MONITOR
[2021-12-22] MEDS: NOREPINEPHRINE 8 MG in IV NS 0.9% 242 ML IV PRN (10:49)
--- NOTE | 2021-12-22 11:00 | NUR ---
RN NOTES PEG SITE DRY, NO DRAINAGE NOTED, CONTINUE TO MONITOR .
[2021-12-22] MEDS: GLUCERNA 1.2 1,000 ML BOTTLE NG SCH (15:41)
--- NOTE | 2021-12-22 18:00 | NUR ---
RN NOTES PT REMAINS INTUBATED, SEDATED, ON DIPRIVAN PH60TSA/KG/MIN , LEVO AT .02 MCG/KG/MIN RUNNING, DUENAS DRAINING TO GRAVITY, TF AT 45CC/HR RUNNING, NO RESIDUAL NOTED,PEG SITE CLEAN, DRY, SR UP x3, CALL LIGHT WITHIN EASY REACH, BED LOCKED AND IN LOWEST POSITION, WILL ENDORSE TO CHISEL TRIMMER NURSE FOR CONTINUITY OF CARE.
--- NOTE | 2021-12-22 19:10 | NUR ---
RN NOTES RECEIVED CARE OF PATIENT WHILE PATIENT IN BED, INTUBATED, SEDATED ON DIPRIVAN AT 60MCG/KG/MIN. PATIENT RESPONDS TO PAINFUL STIMULI. PATIENT ON MECHANICAL VENTILATION, O2 SAT 98% AT THIS TIME, NO SOB NOTED. PATIENT WITH R UPPER ARM PICC LINE, PATENT AND FLUSHES WELL, LEVO RUNNING. DUENAS FLUSHING JEAN CARLOS URINE. GT NOTED, RUNNING GLUCERNA AT 45CC/HR, 40 CC OF RESIDUAL NOTED, GT SITE CLEAN, DRY. SAFETY PRECAUTIONS IMPLEMENTED, SR UP x2, CALL LIGHT WITHIN EASY REACH, BED LOCKED AND IN LOWEST POSITION, WILL CONTINUE TO MONITOR.
[2021-12-22] MEDS: ACETAMINOPHEN 650 MG/SUPP.RECT RC PRN (19:26)
[2021-12-22] MEDS: ATORVASTATIN 40 MG TABLET GT SCH (22:39)
[2021-12-22] MEDS: TAMSULOSIN 0.4 MG CAP.SR.24H PO SCH (22:40)
[2021-12-22] MEDS: INSULIN GLARGINE, 100 UNIT/ML CARTRIDGE SQ SCH (22:54)
[2021-12-23] VITALS (95 sets, daily range): BP systolic 85–138; BP diastolic 49–94
[2021-12-23] MEDS: PROPOFOL 100 ML IV PRN ×6 (00:04→22:34)
[2021-12-23 05:00] LABS: BASOPHILS # (AUTO) 0.1 K/uL (0.0-0.2); BASOPHILS % (AUTO) 0.8 % (0.0-2.0); EOSINOPHILS % (AUTO) 1.5 % (0.0-6.0); HEMATOCRIT 29 % (39-51); HEMOGLOBIN 9.9 g/dL (13.5-17.5); LYMPHOCYTES # (AUTO) 0.7 K/uL (0.8-4.8); MEAN CORPUSCULAR HGB CONC 35 g/dl (31.0-36.0); MEAN CORPUSCULAR VOLUME 85 fL (80-96); MONOCYTES # (AUTO) 0.7 K/uL (0.1-1.30); MONOCYTES % (AUTO) 6.3 % (2.0-12.0); NEUTROPHILS # (AUTO) 8.9 K/uL (1.8-8.9); NEUTROPHILS % (AUTO) 84.4 % (43.0-81.0); PLATELET COUNT (AUTO) 459 K/uL (150-450); RED BLOOD CELL COUNT(AUTO) 3.38 MIL/uL (4.5-6.0); WHITE BLOOD COUNT (AUTO) 10.5 K/uL (4.3-11.0)
[2021-12-23 05:30] LABS: CALCIUM, SERUM 7.9 mg/dL (8.5-10.1); CREATININE 0.9 mg/dL (0.6-1.3); PHOSPHORUS 2.9 mg/dL (2.5-4.9)
[2021-12-23] MEDS: BLOOD SUGAR DIAGNOSTIC 1 EACH STRIP IN SCH ×4 (06:33→23:03)
--- NOTE | 2021-12-23 07:30 | NUR ---
RN MORNING NOTE PT RECEIVED IN BED WITH HOB 30 DEGREES. PT IS ON MECHANICAL VENT WITH ALL PRESCRIBED SETTINGS: AC 12, TV 400, FIO2 30%, PEEP 5 TOLERATING WELL WITH NO SIGNS OF LABORED BREATHING OR DISTRESS SAT 96%. PT IS SEDATED. GTUBE IS IN PLACE WITH POSITIVE PLACEMENT INFUSING WITH GLU 1.2 @45ML/HR >[address] FC IS IN PLACE DRAINING URINE BY GRAVITY. IV ACCESS R UA PIC TLC PATENT AND INTACT INFUSING WITH DIPRIVAN @65MCG/HR AND LEVO @ 0.06 MCG/HR. BED IS LOCKED IN LOWEST POSITION AND ALL HOSPITAL SAFETY PROTOCOLS ARE IN PLACE. WILL CONTINUE TO MONITOR THIS SHIFT.
[2021-12-23] MEDS: DEXAMETHASONE SOD PHOSPHATE 4 MG/ML VIAL IV SCH (08:13)
[2021-12-23] MEDS: PANTOPRAZOLE 40 MG/PACK PACK NG SCH (08:13)
[2021-12-23] MEDS: ENOXAPARIN SODIUM 40 MG/0.4 ML DISP.SYRIN SQ SCH (08:15)
[2021-12-23] MEDS: ALBUTEROL FS 2.5 MG/3 ML VIAL.NEB NEB SCH ×3 (08:17→23:41)
[2021-12-23] MEDS: NYSTATIN TOP POWDER 15 GM BOTTLE TP SCH ×2 (08:48→17:09)
[2021-12-23] MEDS: ACETAMINOPHEN 650 MG/20.3 ML UDC GT PRN (09:40)
[2021-12-23] MEDS: NOREPINEPHRINE 8 MG in IV NS 0.9% 242 ML IV PRN (10:19)
[2021-12-23] MEDS: GLUCERNA 1.2 1,000 ML BOTTLE NG SCH (16:29)
--- NOTE | 2021-12-23 17:00 | NUR ---
RN NOTE PATIENT AND REPORT GIVEN TO CHIKI TONY.
[2021-12-23] MEDS: INSULIN REGULAR, HUMAN 100 UNIT/ML 3 ML VIAL SQ PRN (18:02)
--- NOTE | 2021-12-23 18:22 | NUR ---
RT PATIENT REMAINS ORALLY INTUBATED ON [facility] VENT WITH ORDERED SETTINGS KAILEE WELL. VENT ALARMS CHECKED + AUDIBLE. AIR PATENT AND SUCTIONED. AMBU BAG AT HOB. Addendum: 12/23/21 at 1823 by JUAN BLAKE RT Amended: Links added.
[2021-12-23] MEDS: ATORVASTATIN 40 MG TABLET GT SCH (22:29)
[2021-12-23] MEDS: TAMSULOSIN 0.4 MG CAP.SR.24H PO SCH (22:29)
[2021-12-23] MEDS: INSULIN GLARGINE, 100 UNIT/ML CARTRIDGE SQ SCH (22:45)
[2021-12-24] VITALS (65 sets, daily range): BP systolic 90–133; BP diastolic 51–82
[2021-12-24] MEDS: PROPOFOL 100 ML IV PRN ×4 (04:40→20:08)
[2021-12-24 05:13] LABS: BASOPHILS % (AUTO) 0.4 % (0.0-2.0); EOSINOPHILS % (AUTO) 0.6 % (0.0-6.0); HEMATOCRIT 28 % (39-51); HEMOGLOBIN 9.7 g/dL (13.5-17.5); LYMPHOCYTES # (AUTO) 0.6 K/uL (0.8-4.8); MEAN CORPUSCULAR HGB CONC 34 g/dl (31.0-36.0); MEAN CORPUSCULAR VOLUME 84 fL (80-96); MONOCYTES # (AUTO) 0.9 K/uL (0.1-1.30); MONOCYTES % (AUTO) 8.2 % (2.0-12.0); NEUTROPHILS # (AUTO) 9.2 K/uL (1.8-8.9); NEUTROPHILS % (AUTO) 84.8 % (43.0-81.0); PLATELET COUNT (AUTO) 445 K/uL (150-450); RED BLOOD CELL COUNT(AUTO) 3.38 MIL/uL (4.5-6.0); WHITE BLOOD COUNT (AUTO) 10.8 K/uL (4.3-11.0)
[2021-12-24] MEDS: BLOOD SUGAR DIAGNOSTIC 1 EACH STRIP IN SCH ×4 (06:12→23:56)
[2021-12-24] MEDS: ALBUTEROL FS 2.5 MG/3 ML VIAL.NEB NEB SCH ×3 (07:11→23:44)
[2021-12-24] MEDS: PANTOPRAZOLE 40 MG/PACK PACK NG SCH (07:44)
--- NOTE | 2021-12-24 07:55 | NUR ---
RN NOTES RECEIVED PT , RT AND MYSELF ASSESSING PT BREATHING, ANOTHER RN THAT SPEAKS [place]OH[place]K HELPING TO ASSESS TO APPROVE FOR CT SCAN OF HEART PT WILL NEED TO FOLLOW COMMANDS AND HOLD BREATH FOR PROCEDURE, APPEARS SHE MAY BE ABLE TO FOLLOW COMMAND IN HER OWN LANGUAGE WE WILL TRY TO SEND DOWN FOR CT SOON AND OBTAIN SCAN, PT APPEARS TO BE CONFUSED HOWEVER WILL ATTEMPT TO PERFORM PROCEDURE AND OBTAIN RESULT OF SCAN PER MD ORDERS. Addendum: 12/24/21 at 801 by NIXON JUAREZ RN INCORRECT NOTE ABOVE INCORRECT ROOM Addendum: 12/24/21 at 0802 by NIXON JUAREZ RN DOCUMENT WRONG CHART
[2021-12-24] MEDS: DEXAMETHASONE SOD PHOSPHATE 4 MG/ML VIAL IV SCH (08:09)
[2021-12-24 09:23] LABS: CALCIUM, SERUM 8.1 mg/dL (8.5-10.1); CREATININE 0.7 mg/dL (0.6-1.3); MAGNESIUM 2.1 mg/dL (1.8-2.4); PHOSPHORUS 3.2 mg/dL (2.5-4.9); POTASSIUM 4.2 mmol/L (3.5-5.1)
[2021-12-24] MEDS: NYSTATIN TOP POWDER 15 GM BOTTLE TP SCH ×2 (10:02→17:00)
[2021-12-24 10:06] LABS: BAND % (MANUAL) 2 % (0.0-5.0); LYMPHOCYTES % (MANUAL) 8 % (16-48); MONOCYTES % (MANUAL) 4 % (0-11.0); MYELOCYTES % 1 % (0-0); NEUTROPHILS % (MANUAL) 85 (42-76)
--- NOTE | 2021-12-24 11:00 | NUR ---
Received report from CHIKI Verma to take over care for patient.
[2021-12-24] MEDS: NOREPINEPHRINE 8 MG in IV NS 0.9% 242 ML IV PRN (11:39)
[2021-12-24] MEDS: INSULIN REGULAR, HUMAN 100 UNIT/ML 3 ML VIAL SQ PRN ×2 (11:43→18:06)
[2021-12-24] MEDS: GLUCERNA 1.2 1,000 ML BOTTLE NG SCH (18:12)
--- NOTE | 2021-12-24 19:19 | NUR ---
PROFESSOR OF FLORICULTURE CLOSING NOTES Patient is sedated and on propofol running 75 mcg/kgmin. Patient is on g tube feeding running at 50 cc/hour, mina well. HOB kept elevated. Levo running at 0.06 mcg/kg to HALLIE. Noted with urine output of 800 cc during shift. Will continue to monitor. Call light with in reach.
--- NOTE | 2021-12-24 22:10 | NUR ---
ICU/ASSEMBLER KNIFE OK TO HAVE FREE WATER FLUSHES DISCONTINUED. PT'S MORNING LABS SHOW THAT THE SODIUM HAS IMPROVED.
[2021-12-24] MEDS: TAMSULOSIN 0.4 MG CAP.SR.24H PO SCH (22:22)
[2021-12-24] MEDS: ATORVASTATIN 40 MG TABLET GT SCH (22:22)
[2021-12-24] MEDS: INSULIN GLARGINE, 100 UNIT/ML CARTRIDGE SQ SCH (22:27)
[2021-12-25] VITALS (88 sets, daily range): BP systolic 81–130; BP diastolic 49–89
[2021-12-25] MEDS: PROPOFOL 100 ML IV PRN ×7 (00:06→21:19)
[2021-12-25 03:43] LABS: BASOPHILS % (AUTO) 0.4 % (0.0-2.0); EOSINOPHILS % (AUTO) 0.5 % (0.0-6.0); HEMATOCRIT 27 % (39-51); HEMOGLOBIN 9.2 g/dL (13.5-17.5); LYMPHOCYTES # (AUTO) 0.9 K/uL (0.8-4.8); LYMPHOCYTES % (AUTO) 10.2 % (20.0-44.0); MEAN CORPUSCULAR HGB CONC 35 g/dl (31.0-36.0); MEAN CORPUSCULAR VOLUME 83 fL (80-96); MONOCYTES # (AUTO) 0.9 K/uL (0.1-1.30); MONOCYTES % (AUTO) 9.3 % (2.0-12.0); NEUTROPHILS # (AUTO) 7.3 K/uL (1.8-8.9); NEUTROPHILS % (AUTO) 79.6 % (43.0-81.0); PLATELET COUNT (AUTO) 429 K/uL (150-450); RED BLOOD CELL COUNT(AUTO) 3.21 MIL/uL (4.5-6.0); WHITE BLOOD COUNT (AUTO) 9.1 K/uL (4.3-11.0)
[2021-12-25 04:22] LABS: CALCIUM, SERUM 8.3 mg/dL (8.5-10.1); CREATININE 0.7 mg/dL (0.6-1.3); PHOSPHORUS 2.9 mg/dL (2.5-4.9); POTASSIUM 3.8 mmol/L (3.5-5.1)
[2021-12-25] MEDS: DEXTROSE 50%-WATER 50 ML DISP.SYRIN IV PRN (05:40)
--- NOTE | 2021-12-25 05:57 | NUR ---
ICU/IMMIGRATION CONSULTANT PT'S BLOOD SUGAR IS 45, CHARGE NURSE WAS TOLD. D50% IVP WAS GIVEN WILL CHECK SUGAR AGAIN.
[2021-12-25] MEDS: BLOOD SUGAR DIAGNOSTIC 1 EACH STRIP IN SCH ×3 (06:03→17:36)
--- NOTE | 2021-12-25 06:51 | NUR ---
ICU/SKELP PROCESSOR BLOOD SUGAR IS 160. WILL CONTINUE TO MONITOR THIS PT'S SUGARS.
--- NOTE | 2021-12-25 07:30 | NUR ---
CARPET CUTTER OPENING NOTES Patient is sedated and on propofol running 75 mcg/kgmin. Patient is on g tube feeding running at 50 cc/hour, mina well. HOB kept elevated. Levo running at 0.06 mcg/kg to HALLIE. Will continue to monitor.
[2021-12-25] MEDS: ALBUTEROL FS 2.5 MG/3 ML VIAL.NEB NEB SCH ×3 (07:57→23:26)
[2021-12-25] MEDS: PANTOPRAZOLE 40 MG/PACK PACK NG SCH (08:44)
[2021-12-25] MEDS: DEXAMETHASONE SOD PHOSPHATE 4 MG/ML VIAL IV SCH (08:44)
[2021-12-25] MEDS: NYSTATIN TOP POWDER 15 GM BOTTLE TP SCH ×2 (08:45→16:46)
[2021-12-25 09:27] LABS: ABG BASE EXCESS 1.2 mmol/L; ABG PCO2 35.2 mmHg (35.0-45.0); ABG PH 7.465 (7.350-7.450); ABG PO2 93.1 mmHg (75.0-100.0); AaDO2 79.4 mmHg; COHb 0.3 % (0.5-1.5); MetHb 0.2 % (0.0-1.5); O2Hb 96.5 % (94.0-97.0); PEEP,BG 5 cm H2O; SITE, ABG Left Radial; VT, ABG 400 mL
[2021-12-25] MEDS: NOREPINEPHRINE 8 MG in IV NS 0.9% 242 ML IV PRN (11:55)
[2021-12-25] MEDS: INSULIN REGULAR, HUMAN 100 UNIT/ML 3 ML VIAL SQ PRN ×2 (13:36→17:36)
[2021-12-25] MEDS: GLUCERNA 1.2 1,000 ML BOTTLE NG SCH (16:45)
--- NOTE | 2021-12-25 19:21 | NUR ---
CURRICULUM ADVISORY TEACHER CLOSING NOTES Patient is sedated and on propofol running 75 mcg/kg/min. Patient is on g tube feeding running at 50 cc/hour, mina well. Patient noted with aguiar cath output of 800 cc.Levo running at 0.06 mcg/kg to HALLIE. Will continue to monitor.Endorsed to next shift.
--- NOTE | 2021-12-25 19:40 | NUR ---
ICU/HVAC ESTIMATOR STABLE VITAL SIGNS, LOWERED DOWN THE LEVO AND SEDATION FOR THIS. DIPRIVAN WAS DECREASED DOWN TO 70MCG FROM 75MCG. AND LEVO WAS THEN DECREASED DOWN TO 0.04 FROM 0.06 FOR STABLE BLOOD PRESSURE 120'S. WILL CONTINUE TO MONITOR THIS PT AND HIS BLOOD PRESSURE.
[2021-12-25] MEDS: ATORVASTATIN 40 MG TABLET GT SCH (21:56)
[2021-12-25] MEDS: TAMSULOSIN 0.4 MG CAP.SR.24H PO SCH (21:56)
[2021-12-25] MEDS: INSULIN GLARGINE, 100 UNIT/ML CARTRIDGE SQ SCH (22:00)
--- NOTE | 2021-12-25 22:29 | NUR ---
ICU/ROOFER ASSISTANT PT IS NPO AT MIDNIGHT, FOR TRACH PLACEMENT. 2200 DOSE OF LANTUS 25 UNITS, BLOOD SUGAR IS 204. CALLED THE POST ANESTHESIA ROOM NURSE NAVI FOR ORDERS TO HOLD THIS DUE TO MIDNIGHT NPO. AND IVF OF D5W@50ML. PLACED THE ORDERS.
[2021-12-25] MEDS ORDERED: IV D5W 1,000 ML IV ONE (23:00)
[2021-12-26] VITALS (91 sets, daily range): BP systolic 76–127; BP diastolic 45–71
--- NOTE | 2021-12-26 00:10 | NUR ---
ICU/CNC OPERATOR MACHINIST AT THIS TIME PT IS NOW NPO FOR TRACH PLACEMENT LATER TODAY. G/TUBE STOPPED AND FLUSHED. IVF OF D5W@50ML UNTIL TRACH PLACEMENT THEN WILL STOP THE IVF AND BEGIN THE G/TUBE FEEDING.
[2021-12-26] MEDS: PROPOFOL 100 ML IV PRN ×6 (00:26→23:29)
[2021-12-26] MEDS: BLOOD SUGAR DIAGNOSTIC 1 EACH STRIP IN SCH ×4 (00:41→18:01)
[2021-12-26 03:36] LABS: BASOPHILS # (AUTO) 0.1 K/uL (0.0-0.2); BASOPHILS % (AUTO) 0.7 % (0.0-2.0); EOSINOPHILS % (AUTO) 1.1 % (0.0-6.0); HEMATOCRIT 26 % (39-51); HEMOGLOBIN 8.9 g/dL (13.5-17.5); LYMPHOCYTES # (AUTO) 0.6 K/uL (0.8-4.8); LYMPHOCYTES % (AUTO) 8.9 % (20.0-44.0); MEAN CORPUSCULAR HGB CONC 34 g/dl (31.0-36.0); MEAN CORPUSCULAR VOLUME 84 fL (80-96); MONOCYTES # (AUTO) 0.8 K/uL (0.1-1.30); MONOCYTES % (AUTO) 10.5 % (2.0-12.0); NEUTROPHILS # (AUTO) 5.6 K/uL (1.8-8.9); NEUTROPHILS % (AUTO) 78.8 % (43.0-81.0); PLATELET COUNT (AUTO) 398 K/uL (150-450); RED BLOOD CELL COUNT(AUTO) 3.13 MIL/uL (4.5-6.0); WHITE BLOOD COUNT (AUTO) 7.1 K/uL (4.3-11.0)
--- NOTE | 2021-12-26 03:47 | NUR ---
ICU/OPHTHALMIC TECHNICIAN APPRENTICE STABLE VITAL SIGNS AT THIS TIME, LOWERED DOWN THE LEVO AND SEDATION FOR THIS. DIPRIVAN WAS DECREASED DOWN TO 65MCG FROM 70MCG. AND LEVO WAS THEN DECREASED DOWN TO 0.02 FROM 0.04 FOR STABLE BLOOD PRESSURE 110'S. WILL CONTINUE TO MONITOR THIS PT AND HIS BLOOD PRESSURE.
[2021-12-26 04:45] LABS: ALANINE AMINOTRANSFERASE 16 U/L (12-78); ALKALINE PHOSPHATASE 75 U/L (46-116); ASPARTATE AMINOTRANSFERASE 12 U/L (15-37); BILIRUBIN,TOTAL 0.2 mg/dL (0.2-1.0); CALCIUM, SERUM 8.2 mg/dL (8.5-10.1); CARBON DIOXIDE 30 mmol/L (21-32); CHLORIDE 100 mmol/L (98-107); CREATININE 0.7 mg/dL (0.6-1.3); GLUCOSE 215 mg/dL (74-106); POTASSIUM 4.4 mmol/L (3.5-5.1); SODIUM SERUM 136 mmol/L (136-145); TOTAL PROTEIN, SERUM 6.1 g/dL (6.4-8.2); UREA NITROGEN, BLOOD 19 mg/dL (7-18)
[2021-12-26] MEDS: INSULIN REGULAR, HUMAN 100 UNIT/ML 3 ML VIAL SQ PRN ×3 (05:38→17:51)
[2021-12-26] MEDS: PANTOPRAZOLE 40 MG/PACK PACK NG SCH (07:30)
[2021-12-26] MEDS: NYSTATIN TOP POWDER 15 GM BOTTLE TP SCH ×2 (08:31→17:13)
[2021-12-26] MEDS: DEXAMETHASONE SOD PHOSPHATE 4 MG/ML VIAL IV SCH (08:31)
[2021-12-26] MEDS: ALBUTEROL FS 2.5 MG/3 ML VIAL.NEB NEB SCH ×3 (09:03→23:36)
[2021-12-26] MEDS: NOREPINEPHRINE 8 MG in IV NS 0.9% 242 ML IV PRN (11:11)
[2021-12-26 15:14] LABS: EOSINOPHILS % (MANUAL) 1 % (0-4); LYMPHOCYTES % (MANUAL) 10 % (16-48); MONOCYTES % (MANUAL) 9 % (0-11.0); NEUTROPHILS % (MANUAL) 80 (42-76)
--- NOTE | 2021-12-26 19:10 | NUR ---
RN NOTES PT FOUND SEMI FOWLERS DISPLAYING NO S/S OF ACUTE DISTRESS, FLACC = 0, RIKERS = 3 AND BILATERAL RISE AND FALL OF THE CHEST OBSERVED. R UA PICC IS PATIENT AND INTACT. DUENAS CATH BELOW PATIENT DRAINING BY GRAVITY. SBAR AND REPORT GIVEN TO CUSTOMER SERVICES COORDINATOR RN, ALL QUESTIONS ANSWERED. SAFETY MEASURES IN PLACE, BED LOCKED AND IN LOWEST POSITION, SIDE RAILS UPX2, CALL LIGHT WITHIN REACH, BED ALARM ARMED.
[2021-12-26] MEDS: ATORVASTATIN 40 MG TABLET GT SCH (22:16)
[2021-12-26] MEDS: TAMSULOSIN 0.4 MG CAP.SR.24H PO SCH (22:16)
[2021-12-26] MEDS: INSULIN GLARGINE, 100 UNIT/ML CARTRIDGE SQ SCH (22:21)
--- NOTE | 2021-12-26 22:30 | NUR ---
ICU/TRENCH TRIMMER FINE STABLE VITAL SIGNS, LOWERED DOWN THE LEVO AND SEDATION FOR THIS. DIPRIVAN WAS DECREASED DOWN TO 60MCG FROM 65MCG. AND LEVO WAS THEN DECREASED DOWN TO 0.03 FROM 0.04 FOR STABLE BLOOD PRESSURE 110'S. WILL CONTINUE TO MONITOR THIS PT AND HIS BLOOD PRESSURE.
[2021-12-26] MEDS ORDERED: IV D5W 1,000 ML IV ONE (23:00)
[2021-12-27] VITALS (80 sets, daily range): BP systolic 82–163; BP diastolic 44–105
[2021-12-27] MEDS: BLOOD SUGAR DIAGNOSTIC 1 EACH STRIP IN SCH ×5 (00:10→23:13)
[2021-12-27] MEDS: INSULIN REGULAR, HUMAN 100 UNIT/ML 3 ML VIAL SQ PRN ×3 (00:11→17:55)
--- NOTE | 2021-12-27 01:28 | NUR ---
ICU/COTTON CLEANER STABLE VITAL SIGNS, LOWERED DOWN THE LEVO AND SEDATION FOR THIS. DIPRIVAN WAS DECREASED DOWN TO 55MCG FROM 60MCG. AND LEVO WAS THEN DECREASED DOWN TO 0.02 FROM 0.03 FOR STABLE BLOOD PRESSURE 100'S. WILL CONTINUE TO MONITOR THIS PT AND HIS BLOOD PRESSURE.
[2021-12-27 04:24] LABS: BASOPHILS % (AUTO) 0.7 % (0.0-2.0); EOSINOPHILS % (AUTO) 1.7 % (0.0-6.0); HEMATOCRIT 27 % (39-51); HEMOGLOBIN 9.3 g/dL (13.5-17.5); LYMPHOCYTES # (AUTO) 0.8 K/uL (0.8-4.8); LYMPHOCYTES % (AUTO) 17.6 % (20.0-44.0); MEAN CORPUSCULAR HGB CONC 34 g/dl (31.0-36.0); MEAN CORPUSCULAR VOLUME 83 fL (80-96); MONOCYTES # (AUTO) 0.4 K/uL (0.1-1.30); MONOCYTES % (AUTO) 9.3 % (2.0-12.0); NEUTROPHILS # (AUTO) 3.4 K/uL (1.8-8.9); NEUTROPHILS % (AUTO) 70.7 % (43.0-81.0); PLATELET COUNT (AUTO) 380 K/uL (150-450); RED BLOOD CELL COUNT(AUTO) 3.29 MIL/uL (4.5-6.0); WHITE BLOOD COUNT (AUTO) 4.8 K/uL (4.3-11.0)
[2021-12-27] MEDS: PROPOFOL 100 ML IV PRN ×3 (04:32→15:10)
[2021-12-27 04:46] LABS: ALANINE AMINOTRANSFERASE 15 U/L (12-78); ALBUMIN 2.1 g/dL (3.4-5.0); ALKALINE PHOSPHATASE 81 U/L (46-116); ASPARTATE AMINOTRANSFERASE 14 U/L (15-37); BILIRUBIN,TOTAL 0.3 mg/dL (0.2-1.0); CALCIUM, SERUM 8.4 mg/dL (8.5-10.1); CARBON DIOXIDE 29 mmol/L (21-32); CHLORIDE 102 mmol/L (98-107); CREATININE 0.6 mg/dL (0.6-1.3); GLUCOSE 186 mg/dL (74-106); POTASSIUM 3.7 mmol/L (3.5-5.1); SODIUM SERUM 138 mmol/L (136-145); UREA NITROGEN, BLOOD 14 mg/dL (7-18)
[2021-12-27] MEDS: ALBUTEROL FS 2.5 MG/3 ML VIAL.NEB NEB SCH ×3 (07:39→23:40)
--- NOTE | 2021-12-27 08:00 | NUR ---
rn notes received patient in the ETT/Vent sedated, FIO2- 30%, peep- 5, no sedation vacation today per Dr Salgado order patient scheduled tracheostomy today, NPO. infusing Levophed 0.06mcg/kg/hr, Diprivan 55mcg/kg/hr, and D5W @50ml/hr on right PICC line intact. keep hob elevated for aspiration precaution, due medication administered,assist turn and reposition q 2 hr, Valero draining via gravity, will follow up.
[2021-12-27] MEDS: DEXAMETHASONE SOD PHOSPHATE 4 MG/ML VIAL IV SCH (08:02)
[2021-12-27] MEDS: PANTOPRAZOLE 40 MG/PACK PACK NG SCH (08:02)
[2021-12-27] MEDS: NYSTATIN TOP POWDER 15 GM BOTTLE TP SCH ×2 (08:03→17:05)
[2021-12-27 12:56] LABS: BAND % (MANUAL) 1 % (0.0-5.0); EOSINOPHILS % (MANUAL) 2 % (0-4); LYMPHOCYTES % (MANUAL) 15 % (16-48); MONOCYTES % (MANUAL) 9 % (0-11.0); NEUTROPHILS % (MANUAL) 72 (42-76); REACTIVE LYMPHOCYTES 1 % (0-0)
--- NOTE | 2021-12-27 16:00 | NUR ---
ICU/RN SHAHAB TREVINO DNP AND DR TESFAYE JUST PLACED NEW TRACHEOSTOMY AT BED SIDE.SHILY #8.RT AT BEDSIDE.NO S/S BLEEDING NOTED.PT TOLERATED PROCEDURE WELL .PM CARE PROVIDED.WOUND DRESSING DONE ORDERED.SUCTION PROVIDED.ORAL CARE DONE.REPOSITION FOR COMFORT.CONTINUE MONITORING.
--- NOTE | 2021-12-27 16:00 | NUR ---
RT NOTE DR. TESFAYE AND SHAHAB TREVINO DNP AT BEDSIDE TO PLACE NEW TRACHEOSTOMY. RTS AT BEDSIDE TO ASSIST. NEW TRACH INSERTED, SHILEY #8 CUFFED WITH NO COMPLICATIONS NOTED. MINIMAL BLEEDING NOTED. AIRCRAFT MAINTENANCE SUPERVISOR DONE. TRACH TIE SECURED AND AIRWAY PATENT. NO SOB NOTED AT THIS TIME. WILL CONTINUE TO MONITOR THE PATIENT FOR ANY CHANGES.
[2021-12-27] MEDS: GLUCERNA 1.2 1,000 ML BOTTLE NG SCH (18:35)
[2021-12-27] MEDS: IV NS 0.9% 250 ML IV PRN (18:47)
--- NOTE | 2021-12-27 18:49 | NUR ---
ICU/RN BP STABLE.LEVOPHED STOP .DECREASING DIPRIVAN ORDERED.IV FLUIDS STOP ORDERED.G-TUBE FEEDING RESTARTED.CONTINUE MONITORING,.
[2021-12-27] MEDS ORDERED: ROCURONIUM BROMIDE 50 MG/5 ML IV ONE (19:15)
[2021-12-27] MEDS: ATORVASTATIN 40 MG TABLET GT SCH (22:03)
[2021-12-27] MEDS: TAMSULOSIN 0.4 MG CAP.SR.24H PO SCH (22:03)
[2021-12-27] MEDS: INSULIN GLARGINE, 100 UNIT/ML CARTRIDGE SQ SCH (22:05)
[2021-12-28] VITALS (30 sets, daily range): BP systolic 102–131; BP diastolic 60–88
[2021-12-28] MEDS: ACETAMINOPHEN 650 MG/20.3 ML UDC GT PRN ×3 (03:56→19:41)
[2021-12-28 04:28] LABS: BASOPHILS # (AUTO) 0.1 K/uL (0.0-0.2); BASOPHILS % (AUTO) 0.8 % (0.0-2.0); EOSINOPHILS % (AUTO) 0.5 % (0.0-6.0); HEMATOCRIT 31 % (39-51); HEMOGLOBIN 10.4 g/dL (13.5-17.5); LYMPHOCYTES # (AUTO) 0.8 K/uL (0.8-4.8); LYMPHOCYTES % (AUTO) 8.8 % (20.0-44.0); MEAN CORPUSCULAR HGB CONC 34 g/dl (31.0-36.0); MEAN CORPUSCULAR VOLUME 83 fL (80-96); MONOCYTES % (AUTO) 10.7 % (2.0-12.0); NEUTROPHILS # (AUTO) 7.2 K/uL (1.8-8.9); NEUTROPHILS % (AUTO) 79.2 % (43.0-81.0); PLATELET COUNT (AUTO) 415 K/uL (150-450); RED BLOOD CELL COUNT(AUTO) 3.67 MIL/uL (4.5-6.0); WHITE BLOOD COUNT (AUTO) 9.1 K/uL (4.3-11.0)
[2021-12-28 04:31] LABS: CALCIUM, SERUM 8.3 mg/dL (8.5-10.1); CARBON DIOXIDE 32 mmol/L (21-32); CHLORIDE 101 mmol/L (98-107); CREATININE 0.7 mg/dL (0.6-1.3); MAGNESIUM 1.8 mg/dL (1.8-2.4); POTASSIUM 3.8 mmol/L (3.5-5.1); SODIUM SERUM 136 mmol/L (136-145); UREA NITROGEN, BLOOD 15 mg/dL (7-18)
[2021-12-28 04:35] LABS: ALANINE AMINOTRANSFERASE 16 U/L (12-78); ALBUMIN 2.2 g/dL (3.4-5.0); ALKALINE PHOSPHATASE 93 U/L (46-116); ASPARTATE AMINOTRANSFERASE 14 U/L (15-37); BILIRUBIN,TOTAL 0.3 mg/dL (0.2-1.0); CALCIUM, SERUM 8.3 mg/dL (8.5-10.1); CARBON DIOXIDE 31 mmol/L (21-32); CHLORIDE 101 mmol/L (98-107); CREATININE 0.7 mg/dL (0.6-1.3); POTASSIUM 3.7 mmol/L (3.5-5.1); SODIUM SERUM 136 mmol/L (136-145); TOTAL PROTEIN, SERUM 6.5 g/dL (6.4-8.2); UREA NITROGEN, BLOOD 15 mg/dL (7-18)
[2021-12-28 04:37] LABS: TRIGLYCERIDES 76 mg/dL (30-150)
[2021-12-28 05:01] LABS: GLUCOSE 48 mg/dL (74-106)
[2021-12-28 05:02] LABS: GLUCOSE 49 mg/dL (74-106)
[2021-12-28] MEDS: DEXTROSE 50%-WATER 50 ML DISP.SYRIN IV PRN (05:06)
[2021-12-28] MEDS: BLOOD SUGAR DIAGNOSTIC 1 EACH STRIP IN SCH ×4 (05:17→23:39)
--- NOTE | 2021-12-28 07:10 | NUR ---
RN NOTES RECEIVED PT IN BED. ON TRACH CHAPARROLEY #8, AC: 12, TV: 400, FIO2: 30%, AND PEEP OF 5. O2 SAT @100%. SR ON THE MONITOR. GTUBE IN PLACE, POSITIVE PLACEMENT CHECKED. NO RESIDUAL. FEEDING OF GLUCERNA 1.2 @50ML/HR. HALLIE PICC INTACT, PATENT AND FLUSHED. DUENAS CATH IN PLACE DRAINING YELLOW COLORED URINE. SAFETY MEASURES IMPLEMENTED. BED LOCKED AND IN LOWEST POSITION WITH SIDE RAILS UP X3. WILL CONTINUE TO MONITOR.
--- NOTE | 2021-12-28 07:18 | NUR ---
RIM ROLLER OPERATOR ENDORSED TO DAY NURSE REGARDING RESTART OF LOVENOX, LANTUS ADJUSTMENT AND NO BM x 6 DAYS.
[2021-12-28] MEDS: PANTOPRAZOLE 40 MG/PACK PACK NG SCH (07:29)
[2021-12-28] MEDS: ALBUTEROL FS 2.5 MG/3 ML VIAL.NEB NEB SCH ×2 (07:57→15:41)
[2021-12-28] MEDS: DEXAMETHASONE SOD PHOSPHATE 4 MG/ML VIAL IV SCH (08:18)
[2021-12-28] MEDS: NYSTATIN TOP POWDER 15 GM BOTTLE TP SCH ×2 (08:59→16:51)
[2021-12-28] MEDS: ENOXAPARIN SODIUM 40 MG/0.4 ML DISP.SYRIN SQ SCH (09:44)
[2021-12-28] MEDS: INSULIN REGULAR, HUMAN 100 UNIT/ML 3 ML VIAL SQ PRN ×2 (11:17→18:03)
[2021-12-28 12:32] LABS: BAND % (MANUAL) 1 % (0.0-5.0); EOSINOPHILS % (MANUAL) 1 % (0-4); LYMPHOCYTES % (MANUAL) 10 % (16-48); MONOCYTES % (MANUAL) 9 % (0-11.0); NEUTROPHILS % (MANUAL) 79 (42-76)
--- NOTE | 2021-12-28 18:42 | NUR ---
RN/ICU NOTES PT IS RESTING IN BED. ON TRACH CHAPARROLEY #8, AC: 12, TV: 400, FIO2: 30%, AND PEEP OF 5. O2 SAT @100%. SR ON THE MONITOR. GTUBE IN PLACE, POSITIVE PLACEMENT CHECKED. NO RESIDUAL. FEEDING OF GLUCERNA 1.2 @50ML/HR. HALLIE PICC INTACT, PATENT AND FLUSHED. DUENAS CATH IN PLACE DRAINING YELLOW COLORED URINE, 550 ML TOTAL DURING MORNING SHIFT. ALL SAFETY MEASURES IN PLACE, BED LOCKED AND IN LOWEST POSITION WITH SIDE RAILS UP X3, CALL LIGHT WITHIN REACH. WILL ENDORSE TO ONCOMING REPOSSESSION AGENT NURSE.
--- NOTE | 2021-12-28 19:31 | NUR ---
HAND STAPLER PER REPORT NO CHANGES/ADJUSTMENTS FOR LOVENOX, LACK OF BM FOR 6 DAYS OR LANTUS ADJUSTMENTS FOR PT BEING HYPOGLYCEMIC IN THE MORNING ON SEVERAL OCCASIONS.
--- NOTE | 2021-12-28 19:48 | NUR ---
PUBLIC RELATIONS STUDIES DIRECTOR RCD PT W/TEMP 100.2 INITIATED COOLING MEASURES. SACRAL REDNESS IS NOW AN OPEN WOUND. REQUESTED WOUND CARE CONS.
[2021-12-28] MEDS: INSULIN GLARGINE, 100 UNIT/ML CARTRIDGE SQ SCH (22:00)
[2021-12-28] MEDS: ATORVASTATIN 40 MG TABLET GT SCH (22:11)
[2021-12-28] MEDS: TAMSULOSIN 0.4 MG CAP.SR.24H PO SCH (22:12)
[2021-12-29] VITALS (18 sets, daily range): BP systolic 95–139; BP diastolic 50–81
[2021-12-29] MEDS: ALBUTEROL FS 2.5 MG/3 ML VIAL.NEB NEB SCH ×4 (00:12→23:43)
[2021-12-29 04:57] LABS: ALANINE AMINOTRANSFERASE 18 U/L (12-78); ALBUMIN 2.2 g/dL (3.4-5.0); ALKALINE PHOSPHATASE 92 U/L (46-116); ASPARTATE AMINOTRANSFERASE 16 U/L (15-37); BILIRUBIN,TOTAL 0.5 mg/dL (0.2-1.0); CALCIUM, SERUM 8.1 mg/dL (8.5-10.1); CARBON DIOXIDE 30 mmol/L (21-32); CHLORIDE 99 mmol/L (98-107); CREATININE 0.7 mg/dL (0.6-1.3); GLUCOSE 200 mg/dL (74-106); SODIUM SERUM 133 mmol/L (136-145); TOTAL PROTEIN, SERUM 6.6 g/dL (6.4-8.2); UREA NITROGEN, BLOOD 19 mg/dL (7-18)
[2021-12-29 04:59] LABS: BASOPHILS # (AUTO) 0.1 K/uL (0.0-0.2); BASOPHILS % (AUTO) 0.9 % (0.0-2.0); EOSINOPHILS % (AUTO) 0.6 % (0.0-6.0); HEMATOCRIT 31 % (39-51); HEMOGLOBIN 10.4 g/dL (13.5-17.5); LYMPHOCYTES # (AUTO) 0.9 K/uL (0.8-4.8); LYMPHOCYTES % (AUTO) 8.8 % (20.0-44.0); MEAN CORPUSCULAR HGB CONC 34 g/dl (31.0-36.0); MEAN CORPUSCULAR VOLUME 83 fL (80-96); MONOCYTES % (AUTO) 10.2 % (2.0-12.0); NEUTROPHILS % (AUTO) 79.5 % (43.0-81.0); PLATELET COUNT (AUTO) 400 K/uL (150-450); RED BLOOD CELL COUNT(AUTO) 3.68 MIL/uL (4.5-6.0); WHITE BLOOD COUNT (AUTO) 10.1 K/uL (4.3-11.0)
[2021-12-29] MEDS: BLOOD SUGAR DIAGNOSTIC 1 EACH STRIP IN SCH ×3 (05:50→17:22)
[2021-12-29] MEDS: INSULIN REGULAR, HUMAN 100 UNIT/ML 3 ML VIAL SQ PRN ×3 (05:51→17:21)
--- NOTE | 2021-12-29 07:11 | NUR ---
RN OPENING NOTE RECEIVE REPORT FROM AMUSEMENT CENTRE MANAGER NURSE. PATIENT ON VENTILATOR WITH SHILEY 8 AND SETTINGS: AC 12, TV 40, FIO2 30%, PEEP 5. RECEIVING G-TUBE FEEDING WITH GLUCERNA 1.2 @50ML/HR. WILL FOLLOW UP AM LABS AND DOCTOR ORDERS. PROPER ISOLATION PRECAUTION IN PLACE. ALL SAFETY MEASURE IN PLACE. BED ON LOWEST POSITION WITH HEAD OF BED ELEVATED AND 3 SIDE RAIL UP. CALL LIGHT WITHIN REACH. WILL CONTINUE TO MONITOR.
[2021-12-29 07:41] LABS: BAND % (MANUAL) 1 % (0.0-5.0); LYMPHOCYTES % (MANUAL) 8 % (16-48); MONOCYTES % (MANUAL) 11 % (0-11.0); NEUTROPHILS % (MANUAL) 80 (42-76)
[2021-12-29] MEDS: PANTOPRAZOLE 40 MG/PACK PACK NG SCH (08:04)
[2021-12-29] MEDS: DEXAMETHASONE SOD PHOSPHATE 4 MG/ML VIAL IV SCH (08:04)
[2021-12-29] MEDS: ENOXAPARIN SODIUM 40 MG/0.4 ML DISP.SYRIN SQ SCH (08:06)
[2021-12-29] MEDS: NYSTATIN TOP POWDER 15 GM BOTTLE TP SCH ×2 (08:18→16:11)
[2021-12-29] MEDS: ACETAMINOPHEN 650 MG/20.3 ML UDC GT PRN ×2 (08:20→21:05)
[2021-12-29] MEDS: GLUCERNA 1.2 1,000 ML BOTTLE NG SCH (12:53)
--- NOTE | 2021-12-29 15:00 | NUR ---
RN NOTE PATIENT TRANSFERRED TO ROOM 115 PER ORDER. PATIENT MEDICALLY STABLE AT TIME OF ARRIVAL ON UNIT. PATIENT ON MECHANICAL VENTILATOR WITH NO SIGNS OF LABORED BREATHING AT THIS TIME AND SATURATING 100% OF MONITOR. DUENAS CATH IN PLACE. G TUBE IN PLACE. RIGHT UA PICC LINE IN PLACE AND PATENT. BED LOCKED AND IN LOWEST POSITION, CALL LIGHT WITHIN REACH, 3 SIDE RAILS UP. WILL CONTINUE TO MONITOR.
--- NOTE | 2021-12-29 16:01 | NUR ---
pt. transferred from icu to [facility] room 115 bed 1 with same mechanical ventilator. vent plugged into red outlet with martina @ bedside. Addendum: 12/29/21 at 1603 by BRIT CHAUDHRY RT Amended: Links added.
--- NOTE | 2021-12-29 16:08 | NUR ---
RN NOTE PATIENT TRANSFER TO [place]. REPORT WAS GIVEN BED SIDE. PATIETN IN STABLE CONDITION AT TIME OF TRANSFER.
--- NOTE | 2021-12-29 18:44 | NUR ---
RN CLOSING NOTE PATIENT REMAINS IN BED, OBTUNDED, NON-VERBAL. PATIENT ON MECHANICAL VENTILATION WITH NO SIGNS OF LABORED BREATHING AT THIS TIME. DUENAS CATH IN PLACE. G TUBE IN PLACE RUNNING GLUCERNA AT 50CC/HR. RIGHT UA PICC LINE IN PLACE. BED LOCKED AND IN LOWEST POSITION, CALL LIGHT WITHIN REACH, 3 SIDE RAILS UP. WILL ENDORSE TO LEGAL ADMINISTRATIVE ASSISTANT NURSE.
--- NOTE | 2021-12-29 19:30 | NUR ---
RN NOTE RECEIVED PATIENT IN BED, OBTUNDED, IN NO ACUTE DISTRESS AT THIS TIME. ON TRACH TO MECHANICAL VENT WITH SETTINGS PRESCRIBED, SATURATION AT 98%, SR ON THE MONITOR, HR IS 88. NOTED HALLIE PICC LINE, ALL HUBS PATENT AND FLUSHING WELL, NO S/S OF INFECTION. NOTED GTUBE INTACT POSITIVE PLACEMENT NOTED, NO RESIDUAL, WITH TUBE FEEDING OF GLUCERNA AT 50 ML/HR. DUENAS CATHETER IN PLACE DRAINING TO A CLEAR, YELLOW OUTPUT. SAFETY MEASURES IMPLEMENTED. PATIENT BED ALARM IS ON. HEAD OF BED ELEVATED. BED IS LOCKED, IN LOWEST POSITION AND SIDE RAILS UP. CALL LIGHT WITHIN REACH OF THE PATIENT. WILL CONTINUE TO MONITOR AND REASSESS FOR ANY CHANGES.
[2021-12-29] MEDS: ATORVASTATIN 40 MG TABLET GT SCH (21:05)
[2021-12-29] MEDS: TAMSULOSIN 0.4 MG CAP.SR.24H PO SCH (21:05)
[2021-12-29] MEDS ORDERED: INSULIN GLARGINE, 100 UNIT/ML CARTRIDGE SQ SCH (22:00)
[2021-12-30] VITALS: BP 101/57
[2021-12-30] MEDS: INSULIN REGULAR, HUMAN 100 UNIT/ML 3 ML VIAL SQ PRN ×2 (00:22→05:54)
[2021-12-30] MEDS: BLOOD SUGAR DIAGNOSTIC 1 EACH STRIP IN SCH ×3 (00:25→12:20)
[2021-12-30 04:00] VITALS: BP 109/58
[2021-12-30 07:07] LABS: BASOPHILS # (AUTO) 0.1 K/uL (0.0-0.2); BASOPHILS % (AUTO) 0.6 % (0.0-2.0); EOSINOPHILS % (AUTO) 1.3 % (0.0-6.0); HEMATOCRIT 27 % (39-51); LYMPHOCYTES # (AUTO) 0.7 K/uL (0.8-4.8); LYMPHOCYTES % (AUTO) 7.6 % (20.0-44.0); MEAN CORPUSCULAR HGB CONC 34 g/dl (31.0-36.0); MEAN CORPUSCULAR VOLUME 83 fL (80-96); MONOCYTES # (AUTO) 0.8 K/uL (0.1-1.30); MONOCYTES % (AUTO) 8.9 % (2.0-12.0); NEUTROPHILS # (AUTO) 7.1 K/uL (1.8-8.9); NEUTROPHILS % (AUTO) 81.6 % (43.0-81.0); PLATELET COUNT (AUTO) 334 K/uL (150-450); RED BLOOD CELL COUNT(AUTO) 3.19 MIL/uL (4.5-6.0); WHITE BLOOD COUNT (AUTO) 8.7 K/uL (4.3-11.0)
--- NOTE | 2021-12-30 07:24 | NUR ---
RN OPENING NOTE RECEIVE PT ASLEEP IN BED, OBTUNDED, NON VERBAL. PATIENT ON VENTILATOR WITH SHILEY 8 AND SETTINGS: AC 12, TV 40, FIO2 30%, PEEP 5. RECEIVING G-TUBE FEEDING WITH GLUCERNA 1.2 @50ML/HR. WILL FOLLOW UP AM LABS AND DOCTOR ORDERS. PROPER ISOLATION PRECAUTION IN PLACE. ALL SAFETY MEASURE IN PLACE. BED ON LOWEST POSITION WITH HEAD OF BED ELEVATED AND 3 SIDE RAIL UP. CALL LIGHT WITHIN REACH. WILL CONTINUE TO MONITOR.
[2021-12-30 07:25] LABS: CALCIUM, SERUM 8.1 mg/dL (8.5-10.1); CREATININE 0.7 mg/dL (0.6-1.3); MAGNESIUM 1.9 mg/dL (1.8-2.4); POTASSIUM 3.8 mmol/L (3.5-5.1)
[2021-12-30 08:00] VITALS: BP 109/64
[2021-12-30] MEDS: ALBUTEROL FS 2.5 MG/3 ML VIAL.NEB NEB SCH (08:44)
[2021-12-30] MEDS: DEXAMETHASONE SOD PHOSPHATE 4 MG/ML VIAL IV SCH (09:51)
[2021-12-30] MEDS: PANTOPRAZOLE 40 MG/PACK PACK NG SCH (09:51)
[2021-12-30] MEDS: ENOXAPARIN SODIUM 40 MG/0.4 ML DISP.SYRIN SQ SCH (09:52)
[2021-12-30] MEDS: NYSTATIN TOP POWDER 15 GM BOTTLE TP SCH (09:52)
--- NOTE | 2021-12-30 10:00 | NUR ---
RN OPENING NOTE RECEIVED PATIENT FROM RN FLOATING TO ANOTHER UNIT. RECEIVE PT ASLEEP IN BED, OBTUNDED, NON VERBAL. PATIENT ON VENTILATOR WITH SHILEY 8 AND SETTINGS: AC 12, TV 40, FIO2 30%, PEEP 5. RECEIVING G-TUBE FEEDING WITH GLUCERNA 1.2 @50ML/HR. WILL FOLLOW UP AM LABS AND DOCTOR ORDERS. PROPER ISOLATION PRECAUTION IN PLACE. ALL SAFETY MEASURE IN PLACE. BED ON LOWEST POSITION WITH HEAD OF BED ELEVATED AND 3 SIDE RAIL UP. CALL LIGHT WITHIN REACH. WILL CONTINUE TO MONITOR.
[2021-12-30 12:00] VITALS: BP 110/62
[2021-12-30] MEDS: GLUCERNA 1.2 1,000 ML BOTTLE NG SCH (12:43)
--- NOTE | 2021-12-30 15:15 | NUR ---
BUSINESS SUPPORT SPECIALIST NOTE PT AWAKE IN BED, OBTUNDED, NON VERBAL. PATIENT STABLE THROUGHOUT SHIFT. PATIENT ON VENTILATOR WITH SHILEY 8 AND SETTINGS: AC 12, TV 40, FIO2 30%, PEEP 5. TOLERATING WELL WITH 99% SP02 AT TIME OF TRANSFER. GAVE SUB ACUTE CHARGE NURSE PANCHO REPORT AT 1430. RECEIVING G-TUBE FEEDING WITH GLUCERNA 1.2 @50ML/HR. ALL SAFETY MEASURE NOTED AND ACCOUNTED FOR. BED ON LOWEST POSITION WITH HEAD OF BED ELEVATED AND 3 SIDE RAIL UP. PATIENT TRANSFERRED WITH RT TO ROOM 273 AND CARE HANDED OFF TO SUB ACUTE RN. PATIENT REMAINED STABLE THROUGHOUT.
[2021-12-30] MEDS ORDERED: POLY17PO4 GT (16:46)
[2021-12-30] MEDS ORDERED: INSU100V3 SQ (16:46)
[2021-12-30] MEDS ORDERED: ENOX40DI SQ (16:46)
[2021-12-30] MEDS ORDERED: NYST15PO4 TP (16:46)
[2021-12-30] MEDS ORDERED: NUT.237L30 GT (16:46)
[2021-12-30] MEDS ORDERED: ALBU2.5V13 IH (16:46)
[2021-12-30] MEDS ORDERED: DEXA4VIA17 IV (16:46)
[2021-12-30] MEDS ORDERED: DEXT50DI8 IV (16:46)
[2021-12-30] MEDS ORDERED: BLOO-668 IN (16:46)
[2021-12-30] MEDS ORDERED: ATOR40TA GT (16:46)
[2021-12-30] MEDS ORDERED: PANT40SU2 GT (16:46)
[2021-12-30] MEDS ORDERED: ALLA266C2 TP (16:46)
--- NOTE | 2021-12-30 18:45 | NUR ---
Patient received to room 115-1 from icu per bed patient awake and alert oriented x3 on R/A telemetry in place and shows SR HEP LOCK in place with no signs of rendness or swelling noted., patient encouraged use of call light to make all needs known will continue to assess and evaluate call light with in reach . endorsed to incoming nurse
== END 2021-12-30 15:15 | DRG 4 ==
LOC: ER 11:56 → TRANSITION 13:48 → TELE1 22:13 → TELE-TD 22:52 → TELE1 12-08 07:18 → ICU 12-09 10:06 → TELE1 12-29 15:58 → SA 12-30 15:05 → TELE1 12-30 15:06
PROVIDERS: ADMIT Nurse Practitioner Acute Care; ATTEND Nurse Practitioner Family
PROC: 05HB33Z Insertion of Infusion Device into Right Basilic Vein, Percutaneous Approach (ICD-10-PCS; 2021-12-04)
PROC: 0BH18EZ Insertion of Endotracheal Airway into Trachea, Via Natural or Artificial Opening Endoscopic (ICD-10-PCS; principal; 2021-12-10)
PROC: 5A1955Z Respiratory Ventilation, Greater than 96 Consecutive Hours (ICD-10-PCS; 2021-12-10)
PROC: 02HV33Z Insertion of Infusion Device into Superior Vena Cava, Percutaneous Approach (ICD-10-PCS; 2021-12-11)
PROC: B548ZZA Ultrasonography of Superior Vena Cava, Guidance (ICD-10-PCS; 2021-12-11)
PROC: 0DH63UZ Insertion of Feeding Device into Stomach, Percutaneous Approach (ICD-10-PCS; 2021-12-22)
PROC: 0B113F4 Bypass Trachea to Cutaneous with Tracheostomy Device, Percutaneous Approach (ICD-10-PCS; 2021-12-27)
DX: A41.89 Other specified sepsis (principal); U07.1 COVID-19; J12.82 Pneumonia due to coronavirus disease 2019; J96.01 Acute respiratory failure with hypoxia; N17.0 Acute kidney failure with tubular necrosis; E43 Unspecified severe protein-calorie malnutrition; J15.9 Unspecified bacterial pneumonia; G92.8 Other toxic encephalopathy; R65.21 Severe sepsis with septic shock; E87.1 Hypo-osmolality and hyponatremia; E87.2 Acidosis; Z68.1 Body mass index [BMI] 19.9 or less, adult; R64 Cachexia; J98.11 Atelectasis; E88.09 Other disorders of plasma-protein metabolism, not elsewhere classified; F02.80 Dementia in other diseases classified elsewhere, unspecified severity, without behavioral disturbance, psychotic disturbance, mood disturbance, and anxiety; G30.9 Alzheimer's disease, unspecified; I10 Essential (primary) hypertension; H26.9 Unspecified cataract; Y95 Nosocomial condition; E78.5 Hyperlipidemia, unspecified; Z86.16 Personal history of COVID-19; F29 Unspecified psychosis not due to a substance or known physiological condition; F32.A Depression, unspecified; N40.0 Benign prostatic hyperplasia without lower urinary tract symptoms; D63.8 Anemia in other chronic diseases classified elsewhere; Z79.899 Other long term (current) drug therapy; Z79.84 Long term (current) use of oral hypoglycemic drugs; Z79.4 Long term (current) use of insulin; Z79.82 Long term (current) use of aspirin; L89.629 Pressure ulcer of left heel, unspecified stage; M62.562 Muscle wasting and atrophy, not elsewhere classified, left lower leg; M62.561 Muscle wasting and atrophy, not elsewhere classified, right lower leg; R13.10 Dysphagia, unspecified; Z22.322 Carrier or suspected carrier of Methicillin resistant Staphylococcus aureus; L98.9 Disorder of the skin and subcutaneous tissue, unspecified; L89.156 Pressure-induced deep tissue damage of sacral region; Z79.01 Long term (current) use of anticoagulants; L30.4 Erythema intertrigo; K29.70 Gastritis, unspecified, without bleeding; E11.9 Type 2 diabetes mellitus without complications; B96.89 Other specified bacterial agents as the cause of diseases classified elsewhere; M40.204 Unspecified kyphosis, thoracic region
CPT/HCPCS: 31720; 36410; 36415; 36600; 43246; 71045-TC; 80048-TC; 80053-TC; 80061-TC; 80202-TC; 81001; 82248-TC; 82550-TC; 82803-TC; 82962-TC; 83605-TC; 83615-TC; 83735-TC; 83880; 84100-TC; 84443-TC; 84478-TC; 84484-TC; 85025-TC; 85378-TC; 85730-TC; 86140-TC; 87040-TC; 87070-TC; 87081-TC; 87086-TC; 87186-TC; 94002-TC; 94003-TC; 94760-TC; 94799-TC; A4217; A4623; A6253; A7526; A9563; C9113; G0378; J0690; J1100; J1650; J1815; J2185; J2543; J3370; J3490; J7030; J7050; J7060; J7070; Q9967; U0003

== ENCOUNTER 2021-12-29 15:03 | Inpatient (IN) | payer MEDICARE, MEDICAID ==
[~2021-12-29] VITALS: Ht 177.8 cm; Wt 53.1 kg
[~2021-12-29 15:03] MED LIST changes: +ACET-2605 PO; +ACET-868 PO; -BALS60OI4 TP; +CLOT15CR27 TP; +DEXA4TAB PO; +FERR325T23 PO; +HYDR28.32 TP; +METR45CR2 TP; -RISP0.2515 PO; +TYL2T PO; -ZINC220C6 PO
--- NOTE | 2021-12-30 15:15 | NUR ---
RT Received trach patient Shiley#8 DCT cuffed with sutures on mechanical vent with current orders of AC 12 400 30% +5. Plugged into red outlet. Alarms on and audible. Ambu bag and back up trach at head of bed. Suctioned pink tinged secretions. Trach care done. No respiratory distress noted.
--- NOTE | 2021-12-30 15:15 | NUR ---
Patient is transferred to Subacute ( from [place]) admitted to subacute under service of Dr. Mack with dx of Sepsis, respiratory failure, patient on vent at prescribed settings, RT assessed patient, placed on continuous 02 sat monitoring, 02 sat 98%, HR 85/min, B/P 137/75, RR 12 ,Temp. 98.6. Trach tube patent and intact shiley #8. On GT feeding glucerna at 50 ml/hr, 200 water flush q 4 hrs. GT site patent and intact, tolerating well. Has picc line to right antecubital triple lumen, dressing patent and intact. Has discoloration to right outer thigh 3 x 1.5 cm, left lateral knee scab 1.5 x 1cm. Has open sore to sacral area, no bleeding at this time, treatment done. Has aguiar catheter Fr. # 16/10 patent and intact draining to félix color urine. Incontinent of bowel function. Kept dry and clean. 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 Called and verified all orders with Dr. Jaime Chang, noted and carried out. Patient kept safe and comfortable.
[2021-12-30] MEDS ORDERED: ALLA266C2 TP (16:46)
[2021-12-30] MEDS ORDERED: DEXT50DI8 IV (16:46)
[2021-12-30] MEDS ORDERED: NUT.237L30 GT (16:46)
[2021-12-30] MEDS ORDERED: PANT40SU2 GT (16:46)
[2021-12-30] MEDS ORDERED: POLY17PO4 GT (16:46)
[2021-12-30] MEDS ORDERED: NYST15PO4 TP (16:46)
[2021-12-30] MEDS ORDERED: ENOX40DI SQ (16:46)
[2021-12-30] MEDS ORDERED: ATOR40TA GT (16:46)
[2021-12-30] MEDS ORDERED: INSU100V3 SQ (16:46)
[2021-12-30] MEDS ORDERED: ALBU2.5V13 IH (16:46)
[2021-12-30] MEDS ORDERED: BLOO-668 IN (16:46)
[2021-12-30] MEDS ORDERED: DEXA4VIA17 IV (16:46)
[2021-12-30] MEDS ORDERED: CLONIDINE HCL 0.1 MG TABLET GT PRN (17:30)
[2021-12-30] MEDS ORDERED: ACETAMINOPHEN 650 MG/20.3 ML UDC GT PRN (17:30)
[2021-12-30] MEDS ORDERED: ACETAMINOPHEN 160 MG/5 ML GT PRN (17:30)
[2021-12-30] MEDS ORDERED: ONDANSETRON 4 MG TAB.RAPDIS GT PRN (17:30)
[2021-12-30 18:00] VITALS: BP 137/75
[2021-12-30] MEDS ORDERED: GLUCERNA 1.2 1,000 ML BOTTLE GT PRN (18:00)
[2021-12-30] MEDS: BLOOD SUGAR DIAGNOSTIC 1 EACH STRIP IN SCH ×2 (18:00→23:16)
[2021-12-30] MEDS ORDERED: HYDROGEL DRESSING 90 GM TUBE TP PRN (18:30)
[2021-12-30] MEDS: INSULIN REGULAR, HUMAN 100 UNIT/ML 3 ML VIAL SQ PRN ×2 (19:04→23:16)
[2021-12-30 19:12] VITALS: BP 137/75
--- NOTE | 2021-12-30 19:37 | NUR ---
Called and spoke to patients' (gaetano) made her aware that her is admitted to subacute. Made her aware of visiting protocol per [facility] POLICY
[2021-12-30 20:15] VITALS: BP 108/58
[2021-12-30] MEDS: INSULIN GLARGINE, 100 UNIT/ML CARTRIDGE SQ SCH (21:52)
[2021-12-30] MEDS: ATORVASTATIN 40 MG TABLET GT SCH (22:05)
[2021-12-30] MEDS: TAMSULOSIN 0.4 MG CAP.SR.24H GT SCH (22:05)
[2021-12-30] MEDS: ALBUTEROL FS 2.5 MG/3 ML VIAL.NEB NEB SCH (23:30)
[2021-12-31] MEDS ORDERED: CEFEPIME 2 GM in IV D5W 100 ML IV SCH ×2
[2021-12-31] MEDS ORDERED: CEFEPIME 1 GM VIAL ONE (03:42)
[2021-12-31] MEDS: BLOOD SUGAR DIAGNOSTIC 1 EACH STRIP IN SCH ×4 (05:55→23:24)
[2021-12-31] MEDS: INSULIN REGULAR, HUMAN 100 UNIT/ML 3 ML VIAL SQ PRN ×4 (05:55→23:25)
[2021-12-31 08:00] VITALS: BP 112/60
[2021-12-31] MEDS: ALBUTEROL FS 2.5 MG/3 ML VIAL.NEB NEB SCH ×4 (08:30→23:20)
--- NOTE | 2021-12-31 08:59 | NUR ---
WOUND CARE CONSULT: REVIEWED CHART, NURSING DOCUMENTATION AND PHOTO WHICH INDICATES SACRAL DEEP TISSUE INJURY PRESENT ON ADMISSION. DEFER TO PLASTIC SURGERY TEAM ON CASE. PT IS ON FIRST STEP [facility] AIRLOSS MATTRESS. DISCUSSED SKIN PROTECTION WITH NURSING STAFF. MD IN AGREEMENT WITH PLAN OF CARE.
[2021-12-31] MEDS: PANTOPRAZOLE 40 MG/PACK PACK GT SCH (09:57)
[2021-12-31] MEDS: DEXAMETHASONE 4 MG TABLET GT SCH (09:57)
[2021-12-31] MEDS: ENOXAPARIN SODIUM 40 MG/0.4 ML DISP.SYRIN SQ SCH (09:58)
[2021-12-31] MEDS: HYDROGEL DRESSING 90 GM TUBE TP SCH (09:58)
--- NOTE | 2021-12-31 10:35 | NUR ---
PIERRE called the pt.'s , Harshad Bean [phone] to review intake afterwork, code status and gather collateral information. Harshad stated that she is at work at will need to call PIERRE back. PIERRE gave Harshad office direct number. PIERRE will be available as needed.
[2021-12-31 12:00] VITALS: BP 120/71
[2021-12-31] MEDS ORDERED: TUBERCULIN,PURIF.PROT.DERIV. 5 TU/0.1 ML VIAL ID SCH (12:00)
[2021-12-31] MEDS: CEFEPIME 2 GM in IV D5W 100 ML IV SCH (12:24)
--- NOTE | 2021-12-31 15:30 | NUR ---
INTAKE PAPERWORK: PIERRE met with the patients , Rosaline Brito [phone] to complete the intake paperwork: (Patient Right's Acknowledgement, Documentation of Preferred Intensity of Care, Conditions of Admission, CDPH Agreement, and Voluntary Prior Express Consent form and An Important Message from Medicare). Rosaline stated she would like the pt. to be Full Code: Maximum Treatment and CPR. PIERRE provided patient's family with a copy of the Bill of Rights, & patient information guide. The admission paperwork was placed into the resident's chart. PIERRE educated Rosaline regarding Conservatorship and provided educational material. Rosaline stated she is not interested to file for conservatorship at this time.
--- NOTE | 2021-12-31 16:30 | NUR ---
screened for visitation. Discussed Baseline Resident Care plan and provided her copy. suggested to call [facility] for vaccine information which was done and fax received. Resident completed Flu, Pneumo and Covid-19 vaccines per record.
[2021-12-31] MEDS: PROSOURCE / PROSTAT (PYXIS) 30 ML UDC GT SCH (17:00)
[2021-12-31 18:22] VITALS: BP 115/69
[2021-12-31] MEDS: GLUCERNA 1.2 1,000 ML BOTTLE GT PRN (19:19)
[2021-12-31 20:30] VITALS: BP 121/73
[2021-12-31] MEDS: INSULIN GLARGINE, 100 UNIT/ML CARTRIDGE SQ SCH (21:41)
[2021-12-31] MEDS: ATORVASTATIN 40 MG TABLET GT SCH (21:49)
[2021-12-31] MEDS: TAMSULOSIN 0.4 MG CAP.SR.24H GT SCH (21:49)
[2022-01-01] MEDS: BLOOD SUGAR DIAGNOSTIC 1 EACH STRIP IN SCH ×4 (05:27→23:50)
[2022-01-01] MEDS: INSULIN REGULAR, HUMAN 100 UNIT/ML 3 ML VIAL SQ PRN ×4 (05:28→23:52)
[2022-01-01] MEDS: ALBUTEROL FS 2.5 MG/3 ML VIAL.NEB NEB SCH ×3 (07:51→19:47)
[2022-01-01 08:07] VITALS: BP 119/61
[2022-01-01] MEDS: DEXAMETHASONE 4 MG TABLET GT SCH (09:24)
[2022-01-01] MEDS: PROSOURCE / PROSTAT (PYXIS) 30 ML UDC GT SCH ×2 (09:24→16:56)
[2022-01-01] MEDS: PANTOPRAZOLE 40 MG/PACK PACK GT SCH (09:24)
[2022-01-01] MEDS: HYDROGEL DRESSING 90 GM TUBE TP SCH (09:25)
[2022-01-01] MEDS: ENOXAPARIN SODIUM 40 MG/0.4 ML DISP.SYRIN SQ SCH (09:25)
--- NOTE | 2022-01-01 11:00 | NUR ---
Seen by Dr Colón via telemedicine/video call. Received order to give breathing treatments q 6 hours.
--- NOTE | 2022-01-01 11:00 | NUR ---
Dr Mack ordered to increase GT feeding Glucerna from 50 to 70 mL/hr x 20 hours per day and to give Prostat BID per dietary recommendations.
--- NOTE | 2022-01-01 11:35 | NUR ---
Received order to give artificial tears q 6 hours for eye dryness.
[2022-01-01 12:19] VITALS: BP 122/64
--- NOTE | 2022-01-01 12:41 | NUR ---
POLST: The pt.'s , Rosaline [phone] stated POLST can be request from [phone]. SW called and requested document from medical records. SW received POLST & filed it in pt.'s chart.
[2022-01-01] MEDS: CEFEPIME 2 GM in IV D5W 100 ML IV SCH (12:44)
[2022-01-01] MEDS: GLUCERNA 1.2 1,000 ML BOTTLE GT PRN (14:15)
--- NOTE | 2022-01-01 17:29 | NUR ---
Artificial tears install 1 drop to each eye every six hours was administered, rejected order unable to change units ml to drops. Called pharmacy and explained the need to change units ml to drops, per pharmacist (Juana) unable to change ml to drops will consult with her quarter supervisor, will endorse to next shift.
[2022-01-01] MEDS: POLYVINYL ALCOHOL 15 ML BOTTLE EACHEYE SCH (18:00)
[2022-01-01] MEDS ORDERED: POLYVINYL ALCOHOL 15 ML BOTTLE EACHEYE SCH (18:00)
[2022-01-01 20:50] VITALS: BP 125/71
[2022-01-01] MEDS: TAMSULOSIN 0.4 MG CAP.SR.24H GT SCH (21:49)
[2022-01-01] MEDS: ATORVASTATIN 40 MG TABLET GT SCH (21:49)
[2022-01-01] MEDS: INSULIN GLARGINE, 100 UNIT/ML CARTRIDGE SQ SCH (21:50)
[2022-01-02] MEDS: ALBUTEROL FS 2.5 MG/3 ML VIAL.NEB NEB SCH ×4 (01:32→19:22)
[2022-01-02] MEDS: BLOOD SUGAR DIAGNOSTIC 1 EACH STRIP IN SCH ×3 (05:33→18:38)
[2022-01-02] MEDS: INSULIN REGULAR, HUMAN 100 UNIT/ML 3 ML VIAL SQ PRN ×3 (05:34→18:41)
[2022-01-02 07:38] VITALS: BP 129/64
[2022-01-02] MEDS: PANTOPRAZOLE 40 MG/PACK PACK GT SCH (09:00)
[2022-01-02] MEDS: ENOXAPARIN SODIUM 40 MG/0.4 ML DISP.SYRIN SQ SCH (09:00)
[2022-01-02] MEDS: DEXAMETHASONE 4 MG TABLET GT SCH (09:00)
[2022-01-02] MEDS: PROSOURCE / PROSTAT (PYXIS) 30 ML UDC GT SCH ×2 (09:00→17:00)
[2022-01-02] MEDS: CEFEPIME 2 GM in IV D5W 100 ML IV SCH ×4 (11:16→23:58)
[2022-01-02 12:22] VITALS: BP 124/63
[2022-01-02] MEDS: GLUCERNA 1.2 1,000 ML BOTTLE GT PRN (13:30)
[2022-01-02 19:31] VITALS: BP 140/76
[2022-01-02] MEDS: ATORVASTATIN 40 MG TABLET GT SCH (21:20)
[2022-01-02] MEDS: TAMSULOSIN 0.4 MG CAP.SR.24H GT SCH (21:20)
[2022-01-02] MEDS: INSULIN GLARGINE, 100 UNIT/ML CARTRIDGE SQ SCH (21:21)
[2022-01-03] VITALS (7 sets, daily range): BP systolic 112–139; BP diastolic 66–76
[2022-01-03] MEDS: POLYVINYL ALCOHOL 15 ML BOTTLE EACHEYE SCH ×5 (00:37→23:54)
[2022-01-03] MEDS: BLOOD SUGAR DIAGNOSTIC 1 EACH STRIP IN SCH ×5 (00:37→23:55)
[2022-01-03] MEDS: INSULIN REGULAR, HUMAN 100 UNIT/ML 3 ML VIAL SQ PRN ×5 (00:38→23:58)
[2022-01-03] MEDS: ALBUTEROL FS 2.5 MG/3 ML VIAL.NEB NEB SCH ×4 (01:37→19:28)
[2022-01-03] MEDS: GLUCERNA 1.2 1,000 ML BOTTLE GT PRN (05:44)
[2022-01-03] MEDS: POLYETHYLENE GLYCOL 3350 17 GM POWD.PACK GT PRN (06:19)
[2022-01-03] MEDS: PROSOURCE / PROSTAT (PYXIS) 30 ML UDC GT SCH ×2 (09:00→17:43)
[2022-01-03] MEDS: ENOXAPARIN SODIUM 40 MG/0.4 ML DISP.SYRIN SQ SCH (09:00)
[2022-01-03] MEDS: DEXAMETHASONE 4 MG TABLET GT SCH (09:00)
[2022-01-03] MEDS: PANTOPRAZOLE 40 MG/PACK PACK GT SCH (09:00)
--- NOTE | 2022-01-03 12:00 | NUR ---
Virtual rounds done with Reshma Christine NP. Notified Reshma that pt only has Miralax PRN constipation. Order obtained for Dulcolax suppository PRN if Miralax ineffective. Order carried out.
[2022-01-03] MEDS: CEFEPIME 2 GM in IV D5W 100 ML IV SCH ×2 (12:09→23:27)
[2022-01-03] MEDS: ATORVASTATIN 40 MG TABLET GT SCH (21:06)
[2022-01-03] MEDS: TAMSULOSIN 0.4 MG CAP.SR.24H GT SCH (21:06)
[2022-01-03] MEDS: INSULIN GLARGINE, 100 UNIT/ML CARTRIDGE SQ SCH (21:55)
--- NOTE | 2022-01-03 21:55 | NUR ---
BLOOD GLUCOSE ACCU CHECK RN bar code able to scan but not appeared on laboratory POC Glucose test flow sheet. Insulin Lantus given co signed by ELVA Peters.
[2022-01-04] VITALS (7 sets, daily range): BP systolic 106–129; BP diastolic 57–65
[2022-01-04] MEDS: GLUCERNA 1.2 1,000 ML BOTTLE GT PRN (00:04)
[2022-01-04] MEDS: ALBUTEROL FS 2.5 MG/3 ML VIAL.NEB NEB SCH ×4 (01:41→20:17)
[2022-01-04] MEDS: POLYVINYL ALCOHOL 15 ML BOTTLE EACHEYE SCH ×3 (05:10→18:03)
[2022-01-04] MEDS: BLOOD SUGAR DIAGNOSTIC 1 EACH STRIP IN SCH ×3 (05:18→18:03)
[2022-01-04] MEDS: INSULIN REGULAR, HUMAN 100 UNIT/ML 3 ML VIAL SQ PRN ×3 (05:19→18:15)
--- NOTE | 2022-01-04 06:41 | NUR ---
BLOOD GLUCOSE 0519 ACCU CHECK RN bar code able to scan but result not appeared on laboratory POC Glucose test flow sheet. Insulin Regular given co signed by ELVA Gay.
[2022-01-04] MEDS: PROSOURCE / PROSTAT (PYXIS) 30 ML UDC GT SCH ×2 (09:28→17:00)
[2022-01-04] MEDS: DEXAMETHASONE 4 MG TABLET GT SCH (09:28)
[2022-01-04] MEDS: ENOXAPARIN SODIUM 40 MG/0.4 ML DISP.SYRIN SQ SCH (09:28)
[2022-01-04] MEDS: PANTOPRAZOLE 40 MG/PACK PACK GT SCH (09:28)
--- NOTE | 2022-01-04 11:40 | NUR ---
Upon review of patient's chart, noted an order of Aspirin and Feso4 from admission that were not transcribed, referred to Dr. Colón and said it is OK to continue. Order carried out.
[2022-01-04] MEDS: CEFEPIME 2 GM in IV D5W 100 ML IV SCH ×2 (11:54→23:32)
--- NOTE | 2022-01-04 15:23 | NUR ---
INTERDISCIPLINARY PLAN OF CARE CONFERENCE took place today. The patients , Rosaline [phone] Colón and Interdisciplinary team discussed the plan of care in detail. Current orders as well as treatments and medications were reviewed. IDT addressed family's questions.
[2022-01-04] MEDS: VITAMINS A AND D 56.7 GM TUBE TP SCH (21:40)
[2022-01-04] MEDS: ATORVASTATIN 40 MG TABLET GT SCH (21:40)
[2022-01-04] MEDS: TAMSULOSIN 0.4 MG CAP.SR.24H GT SCH (21:40)
[2022-01-04] MEDS: INSULIN GLARGINE, 100 UNIT/ML CARTRIDGE SQ SCH (21:40)
[2022-01-05 00:10] VITALS: BP 115/60
[2022-01-05] MEDS: GLUCERNA 1.2 1,000 ML BOTTLE GT PRN ×2 (00:29→16:59)
[2022-01-05] MEDS: BLOOD SUGAR DIAGNOSTIC 1 EACH STRIP IN SCH ×5 (00:30→23:39)
[2022-01-05] MEDS: POLYVINYL ALCOHOL 15 ML BOTTLE EACHEYE SCH ×5 (00:33→23:39)
[2022-01-05] MEDS: INSULIN REGULAR, HUMAN 100 UNIT/ML 3 ML VIAL SQ PRN ×5 (00:35→23:41)
[2022-01-05] MEDS: ALBUTEROL FS 2.5 MG/3 ML VIAL.NEB NEB SCH ×4 (02:30→19:43)
[2022-01-05 07:36] VITALS: BP 137/70
[2022-01-05] MEDS: ENOXAPARIN SODIUM 40 MG/0.4 ML DISP.SYRIN SQ SCH (09:05)
[2022-01-05] MEDS: PROSOURCE / PROSTAT (PYXIS) 30 ML UDC GT SCH ×2 (09:05→16:57)
[2022-01-05] MEDS: PANTOPRAZOLE 40 MG/PACK PACK GT SCH (09:05)
[2022-01-05] MEDS: VITAMINS A AND D 56.7 GM TUBE TP SCH ×2 (09:05→21:19)
[2022-01-05] MEDS: ASPIRIN 81 MG TAB.CHEW GT SCH (09:05)
[2022-01-05] MEDS: DEXAMETHASONE 4 MG TABLET GT SCH (09:05)
[2022-01-05] MEDS: FERROUS SULFATE (325 MG) 325 MG/TAB TABLET GT SCH (09:05)
[2022-01-05 12:13] VITALS: BP 144/63
[2022-01-05] MEDS: CEFEPIME 2 GM in IV D5W 100 ML IV SCH ×2 (12:47→23:48)
[2022-01-05 20:29] VITALS: BP 129/66
[2022-01-05] MEDS: TAMSULOSIN 0.4 MG CAP.SR.24H GT SCH (21:18)
[2022-01-05] MEDS: ATORVASTATIN 40 MG TABLET GT SCH (21:18)
[2022-01-05] MEDS: INSULIN GLARGINE, 100 UNIT/ML CARTRIDGE SQ SCH (21:37)
[2022-01-06 01:10] VITALS: BP 120/64
[2022-01-06] MEDS: ALBUTEROL FS 2.5 MG/3 ML VIAL.NEB NEB SCH ×4 (02:09→19:40)
[2022-01-06] MEDS: BLOOD SUGAR DIAGNOSTIC 1 EACH STRIP IN SCH ×4 (05:59→23:29)
[2022-01-06] MEDS: POLYVINYL ALCOHOL 15 ML BOTTLE EACHEYE SCH ×4 (05:59→23:29)
[2022-01-06] MEDS: INSULIN REGULAR, HUMAN 100 UNIT/ML 3 ML VIAL SQ PRN ×3 (05:59→23:30)
[2022-01-06 07:34] VITALS: BP 146/78
[2022-01-06] MEDS: VITAMINS A AND D 56.7 GM TUBE TP SCH ×2 (09:00→21:57)
[2022-01-06] MEDS: PROSOURCE / PROSTAT (PYXIS) 30 ML UDC GT SCH ×2 (09:00→17:49)
[2022-01-06] MEDS: FERROUS SULFATE (325 MG) 325 MG/TAB TABLET GT SCH (09:00)
[2022-01-06] MEDS: DEXAMETHASONE 4 MG TABLET GT SCH (09:00)
[2022-01-06] MEDS: ENOXAPARIN SODIUM 40 MG/0.4 ML DISP.SYRIN SQ SCH (09:00)
[2022-01-06] MEDS: ASPIRIN 81 MG TAB.CHEW GT SCH (09:00)
[2022-01-06] MEDS: PANTOPRAZOLE 40 MG/PACK PACK GT SCH (09:00)
[2022-01-06] MEDS: CEFEPIME 2 GM in IV D5W 100 ML IV SCH ×2 (12:00→23:29)
[2022-01-06 12:07] VITALS: BP 145/67
[2022-01-06] MEDS: GLUCERNA 1.2 1,000 ML BOTTLE GT PRN (15:53)
[2022-01-06 20:40] VITALS: BP 111/62
[2022-01-06] MEDS: ATORVASTATIN 40 MG TABLET GT SCH (21:59)
[2022-01-06] MEDS: TAMSULOSIN 0.4 MG CAP.SR.24H GT SCH (21:59)
[2022-01-06] MEDS: INSULIN GLARGINE, 100 UNIT/ML CARTRIDGE SQ SCH (22:00)
[2022-01-07] MEDS: ALBUTEROL FS 2.5 MG/3 ML VIAL.NEB NEB SCH ×4 (01:33→19:43)
[2022-01-07] MEDS: POLYVINYL ALCOHOL 15 ML BOTTLE EACHEYE SCH ×3 (05:26→18:26)
[2022-01-07] MEDS: BLOOD SUGAR DIAGNOSTIC 1 EACH STRIP IN SCH ×3 (05:26→18:26)
[2022-01-07] MEDS: INSULIN REGULAR, HUMAN 100 UNIT/ML 3 ML VIAL SQ PRN ×3 (05:26→18:30)
[2022-01-07 07:30] VITALS: BP 134/71
[2022-01-07] MEDS: FERROUS SULFATE (325 MG) 325 MG/TAB TABLET GT SCH (09:00)
[2022-01-07] MEDS: PANTOPRAZOLE 40 MG/PACK PACK GT SCH (09:00)
[2022-01-07] MEDS: ASPIRIN 81 MG TAB.CHEW GT SCH (09:00)
[2022-01-07] MEDS: PROSOURCE / PROSTAT (PYXIS) 30 ML UDC GT SCH ×2 (09:00→17:00)
[2022-01-07] MEDS: ENOXAPARIN SODIUM 40 MG/0.4 ML DISP.SYRIN SQ SCH (09:00)
[2022-01-07] MEDS: VITAMINS A AND D 56.7 GM TUBE TP SCH ×2 (09:00→20:44)
[2022-01-07] MEDS: DEXAMETHASONE 4 MG TABLET GT SCH (09:00)
--- NOTE | 2022-01-07 12:21 | NUR ---
Informed Godfrey Browne NP that IV ATB was completed last night, asymptomatic, gave order to test for MRSA of nares and sputum culture for MRSA isolation clearance, carried out.
[2022-01-07] MEDS: GLUCERNA 1.2 1,000 ML BOTTLE GT PRN (12:44)
[2022-01-07 13:25] VITALS: BP 136/72
--- NOTE | 2022-01-07 17:30 | NUR ---
Noted with sacral wound 1.5cm x 1.[address] Mack informed. Therahoney to wound bed q shift ordered x 30 days. Placed order for wound consult. Rosaline Brito () informed, appreciated the call. Will continue to monitor.
[2022-01-07 20:28] VITALS: BP 125/70
[2022-01-07] MEDS: THERAHONEY GEL 1.5 OZ TUBE TP SCH (20:44)
[2022-01-07] MEDS: TAMSULOSIN 0.4 MG CAP.SR.24H GT SCH (21:12)
[2022-01-07] MEDS: ATORVASTATIN 40 MG TABLET GT SCH (21:12)
[2022-01-07] MEDS: INSULIN GLARGINE, 100 UNIT/ML CARTRIDGE SQ SCH (21:13)
[2022-01-08] MEDS: BLOOD SUGAR DIAGNOSTIC 1 EACH STRIP IN SCH ×5 (00:11→23:03)
[2022-01-08] MEDS: POLYVINYL ALCOHOL 15 ML BOTTLE EACHEYE SCH ×5 (00:11→23:03)
[2022-01-08] MEDS: INSULIN REGULAR, HUMAN 100 UNIT/ML 3 ML VIAL SQ PRN ×5 (00:13→23:06)
[2022-01-08 00:56] VITALS: BP 113/65
[2022-01-08] MEDS: ALBUTEROL FS 2.5 MG/3 ML VIAL.NEB NEB SCH ×4 (01:31→19:40)
[2022-01-08] MEDS: GLUCERNA 1.2 1,000 ML BOTTLE GT PRN (04:06)
--- NOTE | 2022-01-08 07:14 | NUR ---
WOUND CARE CONSULT: RECEIVED CONSULT FOR SACRAL DEEP TISSUE INJURY IN EVOLUTION, WHICH WAS PRESENT ON ADMISSION. WOUND BED CHANGES NOTED TO INCLUDE SOME YELLOW SLOUGH IN PHOTO. CONCUR WITH CURRENT WOUND TREATMENT (MARVIN) AND WILL DISCUSS WITH SURGICAL TEAM CURRENTLY ON CASE. MD IN AGREEMENT WITH PLAN OF CARE.
[2022-01-08 07:45] VITALS: BP 130/63
--- NOTE | 2022-01-08 08:35 | NUR ---
Seen and examined by Dr. Colón, no new order given at this time.
[2022-01-08] MEDS: FERROUS SULFATE (325 MG) 325 MG/TAB TABLET GT SCH (09:14)
[2022-01-08] MEDS: DEXAMETHASONE 4 MG TABLET GT SCH (09:14)
[2022-01-08] MEDS: ENOXAPARIN SODIUM 40 MG/0.4 ML DISP.SYRIN SQ SCH (09:14)
[2022-01-08] MEDS: ASPIRIN 81 MG TAB.CHEW GT SCH (09:14)
[2022-01-08] MEDS: PROSOURCE / PROSTAT (PYXIS) 30 ML UDC GT SCH ×2 (09:14→16:24)
[2022-01-08] MEDS: PANTOPRAZOLE 40 MG/PACK PACK GT SCH (09:14)
[2022-01-08] MEDS: VITAMINS A AND D 56.7 GM TUBE TP SCH ×2 (09:15→21:16)
[2022-01-08] MEDS: THERAHONEY GEL 1.5 OZ TUBE TP SCH ×2 (09:15→21:16)
[2022-01-08 11:31] VITALS: BP 116/65
[2022-01-08 20:25] VITALS: BP 99/64
[2022-01-08] MEDS: TAMSULOSIN 0.4 MG CAP.SR.24H GT SCH (21:16)
[2022-01-08] MEDS: ATORVASTATIN 40 MG TABLET GT SCH (21:16)
[2022-01-08 22:00] VITALS: BP 99/64
[2022-01-08] MEDS: INSULIN GLARGINE, 100 UNIT/ML CARTRIDGE SQ SCH (22:59)
[2022-01-09] MEDS: GLUCERNA 1.2 1,000 ML BOTTLE GT PRN ×2 (00:46→17:34)
[2022-01-09] MEDS: ALBUTEROL FS 2.5 MG/3 ML VIAL.NEB NEB SCH ×4 (01:33→19:48)
[2022-01-09] MEDS: POLYVINYL ALCOHOL 15 ML BOTTLE EACHEYE SCH ×4 (05:07→23:51)
[2022-01-09] MEDS: BLOOD SUGAR DIAGNOSTIC 1 EACH STRIP IN SCH ×4 (05:17→23:51)
[2022-01-09] MEDS: INSULIN REGULAR, HUMAN 100 UNIT/ML 3 ML VIAL SQ PRN ×4 (06:01→23:53)
[2022-01-09 07:50] VITALS: BP 118/67
[2022-01-09] MEDS: PANTOPRAZOLE 40 MG/PACK PACK GT SCH (09:51)
[2022-01-09] MEDS: ASPIRIN 81 MG TAB.CHEW GT SCH (09:51)
[2022-01-09] MEDS: DEXAMETHASONE 4 MG TABLET GT SCH (09:51)
[2022-01-09] MEDS: FERROUS SULFATE (325 MG) 325 MG/TAB TABLET GT SCH (09:51)
[2022-01-09] MEDS: PROSOURCE / PROSTAT (PYXIS) 30 ML UDC GT SCH ×2 (09:51→16:51)
[2022-01-09] MEDS: VITAMINS A AND D 56.7 GM TUBE TP SCH ×2 (09:52→21:42)
[2022-01-09] MEDS: THERAHONEY GEL 1.5 OZ TUBE TP SCH ×2 (09:52→21:42)
[2022-01-09] MEDS: ENOXAPARIN SODIUM 40 MG/0.4 ML DISP.SYRIN SQ SCH (09:52)
--- NOTE | 2022-01-09 10:08 | NUR ---
Received order to apply Bactroban ointment to nares BID for 7 days for MRSA. Pt on contact isolation for MRSA nares. Educated staff and pt's family regarding isolation precautions.
[2022-01-09] MEDS: MUPIROCIN 2% CREAM 22 GM TUBE TP SCH (16:51)
[2022-01-09] MEDS: POLYETHYLENE GLYCOL 3350 17 GM POWD.PACK GT PRN (18:38)
[2022-01-09] MEDS: BISACODYL SUPP (10 MG) 10 MG/SUPP.RECT SUPP.RECT RC PRN (18:40)
[2022-01-09 20:08] VITALS: BP 124/62
[2022-01-09] MEDS: ATORVASTATIN 40 MG TABLET GT SCH (21:42)
[2022-01-09] MEDS: TAMSULOSIN 0.4 MG CAP.SR.24H GT SCH (21:42)
[2022-01-09] MEDS: INSULIN GLARGINE, 100 UNIT/ML CARTRIDGE SQ SCH (21:43)
[2022-01-10 00:04] VITALS: BP 104/63
[2022-01-10] MEDS: ALBUTEROL FS 2.5 MG/3 ML VIAL.NEB NEB SCH ×4 (00:37→20:04)
[2022-01-10] MEDS: BLOOD SUGAR DIAGNOSTIC 1 EACH STRIP IN SCH ×3 (05:50→17:29)
[2022-01-10] MEDS: POLYVINYL ALCOHOL 15 ML BOTTLE EACHEYE SCH ×3 (05:50→17:29)
[2022-01-10] MEDS: INSULIN REGULAR, HUMAN 100 UNIT/ML 3 ML VIAL SQ PRN ×3 (05:52→17:55)
[2022-01-10 07:35] VITALS: BP 127/64
[2022-01-10] MEDS: ENOXAPARIN SODIUM 40 MG/0.4 ML DISP.SYRIN SQ SCH (09:20)
[2022-01-10] MEDS: THERAHONEY GEL 1.5 OZ TUBE TP SCH ×2 (09:20→21:22)
[2022-01-10] MEDS: VITAMINS A AND D 56.7 GM TUBE TP SCH ×2 (09:20→21:22)
[2022-01-10] MEDS: MUPIROCIN 2% CREAM 22 GM TUBE TP SCH ×2 (09:20→17:29)
[2022-01-10] MEDS: FERROUS SULFATE (325 MG) 325 MG/TAB TABLET GT SCH (09:21)
[2022-01-10] MEDS: DEXAMETHASONE 4 MG TABLET GT SCH (09:21)
[2022-01-10] MEDS: PROSOURCE / PROSTAT (PYXIS) 30 ML UDC GT SCH ×2 (09:21→17:29)
[2022-01-10] MEDS: PANTOPRAZOLE 40 MG/PACK PACK GT SCH (09:21)
[2022-01-10] MEDS: ASPIRIN 81 MG TAB.CHEW GT SCH (09:21)
[2022-01-10 12:29] VITALS: BP 116/59
--- NOTE | 2022-01-10 13:00 | NUR ---
Pt noted with blanchable redness on bilateral ankles this morning. Mepilex foam dressing applied for skin protection and offloaded pt's ankles. Informed Dr Belkis Chen. She saw pt and ordered to continue applying Mepilex foam dressing. Notified pt's .
[2022-01-10] MEDS: GLUCERNA 1.2 1,000 ML BOTTLE GT PRN (17:54)
[2022-01-10 19:48] VITALS: BP 122/65
[2022-01-10] MEDS: TAMSULOSIN 0.4 MG CAP.SR.24H GT SCH (21:22)
[2022-01-10] MEDS: ATORVASTATIN 40 MG TABLET GT SCH (21:22)
[2022-01-10] MEDS: INSULIN GLARGINE, 100 UNIT/ML CARTRIDGE SQ SCH (21:26)
[2022-01-11] MEDS: POLYVINYL ALCOHOL 15 ML BOTTLE EACHEYE SCH ×5 (00:34→23:06)
[2022-01-11] MEDS: BLOOD SUGAR DIAGNOSTIC 1 EACH STRIP IN SCH ×5 (00:34→23:13)
[2022-01-11] MEDS: INSULIN REGULAR, HUMAN 100 UNIT/ML 3 ML VIAL SQ PRN ×5 (00:36→23:13)
[2022-01-11 00:41] VITALS: BP 125/68
[2022-01-11] MEDS: ALBUTEROL FS 2.5 MG/3 ML VIAL.NEB NEB SCH ×4 (01:47→19:54)
[2022-01-11] MEDS: ACETAMINOPHEN 650 MG/20 ML UDC- SA PATIENTS-PAIN ONLY GT PRN (02:45)
[2022-01-11 07:31] VITALS: BP 131/63
[2022-01-11] MEDS: VITAMINS A AND D 56.7 GM TUBE TP SCH ×2 (09:00→20:56)
[2022-01-11] MEDS: PROSOURCE / PROSTAT (PYXIS) 30 ML UDC GT SCH ×2 (09:55→17:15)
[2022-01-11] MEDS: ASPIRIN 81 MG TAB.CHEW GT SCH (09:55)
[2022-01-11] MEDS: DEXAMETHASONE 4 MG TABLET GT SCH (09:55)
[2022-01-11] MEDS: PANTOPRAZOLE 40 MG/PACK PACK GT SCH (09:55)
[2022-01-11] MEDS: FERROUS SULFATE (325 MG) 325 MG/TAB TABLET GT SCH (09:55)
[2022-01-11] MEDS: ENOXAPARIN SODIUM 40 MG/0.4 ML DISP.SYRIN SQ SCH (09:55)
[2022-01-11] MEDS: THERAHONEY GEL 1.5 OZ TUBE TP SCH ×2 (09:56→20:56)
[2022-01-11] MEDS: MUPIROCIN 2% CREAM 22 GM TUBE TP SCH ×2 (09:56→17:15)
[2022-01-11 12:15] VITALS: BP 139/70
[2022-01-11] MEDS: GLUCERNA 1.2 1,000 ML BOTTLE GT PRN (12:31)
--- NOTE | 2022-01-11 15:27 | NUR ---
Latest Visitation Guidelines & Facility Update: PIERRE informed pt.'s responsible constitution party, Rosaline via email that, "PIERRE Facility Update: No [facility] employee tested positive for COVID-19 this week. Residents and staff will continue receiving routine testing. We will continue to implement [facility] infection control protocols and continue screening employees before every shift. [facility] continues to follow infection control protocols and screen our residents and staff daily for symptoms". PIERRE also informed family that the visitation guidelines have not changed at this time.
--- NOTE | 2022-01-11 16:00 | NUR ---
Dr. Mack made aware that per car shifter resident not sleep well last night. Obtained order from MD to give Melatonin 5mg. Q HS. Left a message to patient's Harshad
[2022-01-11 20:28] VITALS: BP 116/71
[2022-01-11] MEDS: ATORVASTATIN 40 MG TABLET GT SCH (21:07)
[2022-01-11] MEDS: TAMSULOSIN 0.4 MG CAP.SR.24H GT SCH (21:07)
[2022-01-11] MEDS: INSULIN GLARGINE, 100 UNIT/ML CARTRIDGE SQ SCH (21:08)
[2022-01-11] MEDS ORDERED: MELATONIN 3 MG TABLET PO SCH (22:00)
[2022-01-12] MEDS: ALBUTEROL FS 2.5 MG/3 ML VIAL.NEB NEB SCH ×4 (01:35→19:23)
[2022-01-12] MEDS: GLUCERNA 1.2 1,000 ML BOTTLE GT PRN (04:58)
[2022-01-12] MEDS: POLYVINYL ALCOHOL 15 ML BOTTLE EACHEYE SCH ×4 (05:01→23:11)
[2022-01-12] MEDS: BLOOD SUGAR DIAGNOSTIC 1 EACH STRIP IN SCH ×4 (05:04→23:11)
[2022-01-12] MEDS: INSULIN REGULAR, HUMAN 100 UNIT/ML 3 ML VIAL SQ PRN ×3 (05:05→17:46)
[2022-01-12 07:25] VITALS: BP 130/63
[2022-01-12] MEDS: PROSOURCE / PROSTAT (PYXIS) 30 ML UDC GT SCH ×2 (09:32→17:00)
[2022-01-12] MEDS: DEXAMETHASONE 4 MG TABLET GT SCH (09:32)
[2022-01-12] MEDS: THERAHONEY GEL 1.5 OZ TUBE TP SCH ×2 (09:32→20:36)
[2022-01-12] MEDS: ASPIRIN 81 MG TAB.CHEW GT SCH (09:32)
[2022-01-12] MEDS: FERROUS SULFATE (325 MG) 325 MG/TAB TABLET GT SCH (09:32)
[2022-01-12] MEDS: ENOXAPARIN SODIUM 40 MG/0.4 ML DISP.SYRIN SQ SCH (09:32)
[2022-01-12] MEDS: MUPIROCIN 2% CREAM 22 GM TUBE TP SCH ×2 (09:32→17:00)
[2022-01-12] MEDS: PANTOPRAZOLE 40 MG/PACK PACK GT SCH (09:32)
[2022-01-12] MEDS: VITAMINS A AND D 56.7 GM TUBE TP SCH ×2 (09:33→20:36)
[2022-01-12 14:31] VITALS: BP 141/76
--- NOTE | 2022-01-12 16:30 | NUR ---
Notified Dr. Mack patient noted with hematuria, irrigated FC with 60 ml normal saline and observe urine output after an hour, still draining pinkish urine. After reviewing patient's medications Dr. Mack ordered to hold Lovenox. Left a message to patient's . Order carried out and continue to monitor urine. VS 98.9, 69, 20, 100, 141/76. Endorsed to incoming shift.
--- NOTE | 2022-01-12 19:10 | NUR ---
Asked Dr. Mack to review patient's BS for the past couple of days as it has been running above 200 mg/dl. After reviewing BS reading for he past few days & amount of short acting insulin patient received per day, Dr. Mack ordered to DC short acting insulin sliding scale Q 6 hours; instead to give short acting insulin ( Humulin R/Novolin R) to be given only at 0600, 1200 and 1800 routinely and no coverage at midnight. Endorsed to incoming shift.
[2022-01-12 20:06] VITALS: BP 118/65
[2022-01-12] MEDS: ATORVASTATIN 40 MG TABLET GT SCH (21:08)
[2022-01-12] MEDS: MELATONIN 3 MG TABLET GT SCH (21:08)
[2022-01-12] MEDS: TAMSULOSIN 0.4 MG CAP.SR.24H GT SCH (21:08)
[2022-01-12] MEDS: INSULIN GLARGINE, 100 UNIT/ML CARTRIDGE SQ SCH (21:09)
[2022-01-12 23:33] VITALS: BP 115/62
[2022-01-13] MEDS: ALBUTEROL FS 2.5 MG/3 ML VIAL.NEB NEB SCH ×4 (01:24→19:50)
[2022-01-13] MEDS: POLYVINYL ALCOHOL 15 ML BOTTLE EACHEYE SCH ×3 (05:08→17:49)
[2022-01-13] MEDS: BLOOD SUGAR DIAGNOSTIC 1 EACH STRIP IN SCH ×3 (05:08→17:49)
[2022-01-13] MEDS: GLUCERNA 1.2 1,000 ML BOTTLE GT PRN (05:12)
[2022-01-13] MEDS: INSULIN REGULAR, HUMAN 100 UNIT/ML 10 ML VIAL SQ SCH ×4 (05:12→17:52)
--- NOTE | 2022-01-13 05:33 | NUR ---
Pt slept well last night, hematuria improved- some tinged of old blood clots noted last night flushed x 1 with 60 cc sterile water , urine to aguiar draining clear yellow now this morning. Pt remains afebrile, no other significant change of condition during shift, am BS checked -obtained result : 126, reg. insulin 6 units per MD's order given, GTF on. Am care provided, repositioned, tolerated meds, txs and care. O2 monitor on SPo02 98 % hr 75, HOB up x 2, sr's up as ordered for safety. Will endorse care to oncoming am nurse.
[2022-01-13] MEDS ORDERED: INSULIN REGULAR, HUMAN 100 UNIT/ML 10 ML VIAL SQ SCH (06:00)
--- NOTE | 2022-01-13 06:45 | NUR ---
RN NOTE NON-ADMINISTERED REGULAR INSULIN AT 0730. DOSE GIVEN AT 0600 PER MD ORDER. UNABLE TO CHANGE TIMES IN [place]. CONTACTED [facility].
[2022-01-13 07:24] VITALS: BP 138/76
[2022-01-13] MEDS: PANTOPRAZOLE 40 MG/PACK PACK GT SCH (09:00)
[2022-01-13] MEDS: PROSOURCE / PROSTAT (PYXIS) 30 ML UDC GT SCH ×2 (09:00→17:49)
[2022-01-13] MEDS: THERAHONEY GEL 1.5 OZ TUBE TP SCH ×2 (09:00→21:41)
[2022-01-13] MEDS: VITAMINS A AND D 56.7 GM TUBE TP SCH ×2 (09:00→21:41)
[2022-01-13] MEDS: MUPIROCIN 2% CREAM 22 GM TUBE TP SCH ×2 (09:00→17:49)
[2022-01-13] MEDS: ASPIRIN 81 MG TAB.CHEW GT SCH (09:00)
[2022-01-13] MEDS: FERROUS SULFATE (325 MG) 325 MG/TAB TABLET GT SCH (09:00)
[2022-01-13] MEDS: DEXAMETHASONE 4 MG TABLET GT SCH (09:00)
--- NOTE | 2022-01-13 11:30 | NUR ---
RT removed both suture trach, no bleeding noted to trach site, no s/s of infection noted at this time. Dr. Colón notified. Npted and carried out.
[2022-01-13 12:58] VITALS: BP 129/67
--- NOTE | 2022-01-13 13:42 | NUR ---
checked BS at 12noon, BS 50. given 8oz orange juice. rechecked BS was 152. given 6units insulin as ordered. no signs and symptoms of hypoglycemia. MD made aware. will continue to monitor any untoward changes.
--- NOTE | 2022-01-13 17:00 | NUR ---
Patients' (Rosaline) came to visit, she is aware that her need to have a debridement to his sacral wound, she signed consent for the debridement procedure. She verbalized concerned how does the wound looks like if its not responding to current tx. RN in charge for patient reported that the sacral wound still has yellow slough. Patients' also stated that her daughter and son in law are coming tonight at 8 pm to visit patient.
--- NOTE | 2022-01-13 18:00 | NUR ---
Patient calm at this time, on vent., tolerating well. Kept HOB elevated at all times. Suctioned as needed. Noted small blood tinged to trach tubing. S/P trach suture removal, intact, no bleeding noted. No hematuria noted at this time, aguiar catheter patent and intact draining to yellow urine output. Patient on contact isolation, all precautions observed. Incoming shift aware to monitor hematuria, patients' lovenox on hold. Patient kept safe and comfortable. Addendum: 01/13/22 at 1940 by ADRIANNA DOTSON RN Incoming shift made aware if no more hematuria till ceci morning pls inform MD if wants to resume lovenox.
[2022-01-13 20:27] VITALS: BP 106/65
[2022-01-13] MEDS: MELATONIN 3 MG TABLET GT SCH (21:41)
[2022-01-13] MEDS: TAMSULOSIN 0.4 MG CAP.SR.24H GT SCH (21:41)
[2022-01-13] MEDS: ATORVASTATIN 40 MG TABLET GT SCH (21:41)
[2022-01-13] MEDS: INSULIN GLARGINE, 100 UNIT/ML CARTRIDGE SQ SCH (21:42)
[2022-01-13 23:43] VITALS: BP 118/62
[2022-01-14] MEDS: BLOOD SUGAR DIAGNOSTIC 1 EACH STRIP IN SCH ×5 (00:54→23:35)
[2022-01-14] MEDS: POLYVINYL ALCOHOL 15 ML BOTTLE EACHEYE SCH ×5 (00:54→23:35)
[2022-01-14] MEDS ORDERED: DEXTROSE 50%-WATER 50 ML DISP.SYRIN ONE (00:55)
--- NOTE | 2022-01-14 00:55 | NUR ---
RN NOTES Noted with BS 48. D5W 50% syringe-50ml. Will reassess BS.
[2022-01-14] MEDS: ALBUTEROL FS 2.5 MG/3 ML VIAL.NEB NEB SCH ×4 (01:42→19:58)
--- NOTE | 2022-01-14 01:48 | NUR ---
RN NOTES Reassessed pt, BS now 165. Pt in stable condition.
[2022-01-14] MEDS ORDERED: INSULIN REGULAR, HUMAN 100 UNIT/ML 10 ML VIAL SQ SCH ×2 (06:00→12:00)
--- NOTE | 2022-01-14 06:01 | NUR ---
RN NOTES Noted with a decrease in BS, now 53. [place] juice given as ordered. Pt in stable condition. Will reassess.
--- NOTE | 2022-01-14 06:30 | NUR ---
RN NOTES BS increased to 72. Will endorse to following shift.
[2022-01-14 07:45] VITALS: BP 126/70
[2022-01-14] MEDS: VITAMINS A AND D 56.7 GM TUBE TP SCH ×2 (09:00→21:00)
[2022-01-14] MEDS: MUPIROCIN 2% CREAM 22 GM TUBE TP SCH ×2 (09:00→17:18)
[2022-01-14] MEDS: THERAHONEY GEL 1.5 OZ TUBE TP SCH ×2 (09:00→21:00)
[2022-01-14] MEDS: ASPIRIN 81 MG TAB.CHEW GT SCH (09:36)
[2022-01-14] MEDS: DEXAMETHASONE 4 MG TABLET GT SCH (09:36)
[2022-01-14] MEDS: PROSOURCE / PROSTAT (PYXIS) 30 ML UDC GT SCH ×2 (09:36→17:17)
[2022-01-14] MEDS: FERROUS SULFATE (325 MG) 325 MG/TAB TABLET GT SCH (09:36)
[2022-01-14] MEDS: PANTOPRAZOLE 40 MG/PACK PACK GT SCH (09:37)
--- NOTE | 2022-01-14 10:35 | NUR ---
Left message for Dr Mack regarding pt's low blood sugar levels at midnight and this morning. Notified him pt was given D50 at midnight.
[2022-01-14] MEDS ORDERED: DEXTROSE 50%-WATER 50 ML DISP.SYRIN IVP PRN (12:00)
--- NOTE | 2022-01-14 12:57 | NUR ---
Humulin R 6 units not given, BS- 93 mg/dl. Charge nurse informed. Resident awake, appears comfortable, no signs of distress. Will continue to monitor.
[2022-01-14 13:34] VITALS: BP 136/77
--- NOTE | 2022-01-14 13:49 | NUR ---
Family Invite to IDT: PIERRE emailed the patients , Rosaline [phone] at [email or web address] to invite her to participate in 01/18/2022 IDT meeting. PIERRE will follow up accordingly.
--- NOTE | 2022-01-14 15:30 | NUR ---
Informed FABRIC INSPECTOR Reshma Christine of pt's low blood sugar levels at midnight and 6am, sliding scale was recently DC'd and pt is on regular insulin 6 units at 6am, 12 pm, and 6pm. Also informed her that blood sugar was 93 at 12 pm, regular insulin 6 units was held. She said she will see pt today, will review blood sugars and insulin.
--- NOTE | 2022-01-14 16:10 | NUR ---
Clarified Dexamethasone order with Dr Colón. He said it is given for Covid-19. He ordered to decrease dose by 2 mg each week. Informed him that pt is on 4 mg. He said to give 2 mg for a week then DC.
--- NOTE | 2022-01-14 16:30 | NUR ---
Pt's Rosaline came to visit. Informed her that pt had low blood sugar levels, insulin was held, and SHAHRAM uJstice will see pt today. She asked about pt's sacral wound, informed her that it has not been debrided yet. She gave consent yesterday for serial sacral wound debridement.
[2022-01-14] MEDS: GLUCERNA 1.2 1,000 ML BOTTLE GT PRN (18:01)
[2022-01-14] MEDS: INSULIN REGULAR, HUMAN 100 UNIT/ML 10 ML VIAL SQ SCH (18:13)
--- NOTE | 2022-01-14 18:33 | NUR ---
Seen by RESTAURANT OPERATIONS MANAGER Reshma Christine. She reviewed pt's blood sugars and insulin. Received order to DC regular insulin 6 units SC q 0600, 1200, 1800 and give Humalog/Novolog insulin SC q 6 hours PRN per sliding scale.
[2022-01-14 20:30] VITALS: BP 107/62
[2022-01-14] MEDS: MELATONIN 3 MG TABLET GT SCH (22:02)
[2022-01-14] MEDS: ATORVASTATIN 40 MG TABLET GT SCH (22:02)
[2022-01-14] MEDS: TAMSULOSIN 0.4 MG CAP.SR.24H GT SCH (22:02)
[2022-01-14] MEDS: INSULIN GLARGINE, 100 UNIT/ML CARTRIDGE SQ SCH (22:03)
[2022-01-14] MEDS: INSULIN REGULAR, HUMAN 100 UNIT/ML 3 ML VIAL SQ PRN (23:35)
[2022-01-15 01:17] VITALS: BP 114/69
[2022-01-15] MEDS: ALBUTEROL FS 2.5 MG/3 ML VIAL.NEB NEB SCH ×4 (01:34→19:44)
[2022-01-15] MEDS: POLYVINYL ALCOHOL 15 ML BOTTLE EACHEYE SCH ×3 (06:07→17:40)
[2022-01-15] MEDS: BLOOD SUGAR DIAGNOSTIC 1 EACH STRIP IN SCH ×3 (06:07→17:40)
[2022-01-15] MEDS: INSULIN REGULAR, HUMAN 100 UNIT/ML 3 ML VIAL SQ PRN (06:08)
[2022-01-15 07:19] VITALS: BP 102/52
[2022-01-15] MEDS: PANTOPRAZOLE 40 MG/PACK PACK GT SCH (09:00)
[2022-01-15] MEDS: PROSOURCE / PROSTAT (PYXIS) 30 ML UDC GT SCH ×2 (09:00→16:28)
[2022-01-15] MEDS: VITAMINS A AND D 56.7 GM TUBE TP SCH ×2 (09:00→21:55)
[2022-01-15] MEDS: DEXAMETHASONE 1 MG TABLET GT SCH (09:00)
[2022-01-15] MEDS: ASPIRIN 81 MG TAB.CHEW GT SCH (09:00)
[2022-01-15] MEDS: MUPIROCIN 2% CREAM 22 GM TUBE TP SCH ×2 (09:00→16:28)
[2022-01-15] MEDS: FERROUS SULFATE (325 MG) 325 MG/TAB TABLET GT SCH (09:00)
[2022-01-15] MEDS: THERAHONEY GEL 1.5 OZ TUBE TP SCH ×2 (09:00→21:55)
--- NOTE | 2022-01-15 10:14 | NUR ---
Seen and examined by Dr Desai. No new order.
--- NOTE | 2022-01-15 12:08 | NUR ---
Seen by Dr Mack. He ordered to decrease Lantus insulin from 22 to 18 units SC q HS, DC regular insulin sliding scale coverage, give regular insulin 4 units SC q 0600 and 1200, regular insulin 2 units SC q 1800. Notified pt's .
[2022-01-15 12:45] VITALS: BP 106/63
[2022-01-15] MEDS: GLUCERNA 1.2 1,000 ML BOTTLE GT PRN (13:49)
--- NOTE | 2022-01-15 16:39 | NUR ---
Pt's urine appears orange with a reddish tint. T 98.0 F. Pt on Lovenox. Notified MANAGER MARKET INTELLIGENCE Reshma Christine. No new order at this time, but she said that if it gets worse hold Lovenox for 2 days.
[2022-01-15] MEDS: INSULIN REGULAR, HUMAN 100 UNIT/ML 3 ML VIAL SQ SCH (17:40)
--- NOTE | 2022-01-15 18:45 | NUR ---
Pt's Lovenox has been on hold since 01/12/22 due to hematuria. Rechecked pt's urine. Valero catheter drainage bag was emptied and urine in the bag is now light yellow in color.
[2022-01-15 19:24] VITALS: BP 121/65
[2022-01-15] MEDS: MELATONIN 3 MG TABLET GT SCH (21:55)
[2022-01-15] MEDS: INSULIN GLARGINE, 100 UNIT/ML CARTRIDGE SQ SCH (21:55)
[2022-01-15] MEDS: ATORVASTATIN 40 MG TABLET GT SCH (21:55)
[2022-01-15] MEDS: TAMSULOSIN 0.4 MG CAP.SR.24H GT SCH (21:55)
[2022-01-16] MEDS: BLOOD SUGAR DIAGNOSTIC 1 EACH STRIP IN SCH ×4 (00:02→17:43)
[2022-01-16] MEDS: POLYVINYL ALCOHOL 15 ML BOTTLE EACHEYE SCH ×4 (00:02→17:43)
[2022-01-16] MEDS: ALBUTEROL FS 2.5 MG/3 ML VIAL.NEB NEB SCH ×4 (01:41→19:39)
[2022-01-16] MEDS: INSULIN REGULAR, HUMAN 100 UNIT/ML 3 ML VIAL SQ SCH ×3 (06:09→18:01)
[2022-01-16 08:09] VITALS: BP 99/50
[2022-01-16] MEDS: DEXAMETHASONE 1 MG TABLET GT SCH (08:37)
[2022-01-16] MEDS: ASPIRIN 81 MG TAB.CHEW GT SCH (08:37)
[2022-01-16] MEDS: PANTOPRAZOLE 40 MG/PACK PACK GT SCH (08:37)
[2022-01-16] MEDS: FERROUS SULFATE (325 MG) 325 MG/TAB TABLET GT SCH (08:37)
[2022-01-16] MEDS: PROSOURCE / PROSTAT (PYXIS) 30 ML UDC GT SCH ×2 (08:37→16:26)
[2022-01-16] MEDS: VITAMINS A AND D 56.7 GM TUBE TP SCH ×2 (08:37→21:16)
[2022-01-16] MEDS: MUPIROCIN 2% CREAM 22 GM TUBE TP SCH (08:37)
[2022-01-16] MEDS: THERAHONEY GEL 1.5 OZ TUBE TP SCH ×2 (08:37→21:16)
[2022-01-16] MEDS: GLUCERNA 1.2 1,000 ML BOTTLE GT PRN (13:00)
[2022-01-16 13:41] VITALS: BP 116/52
[2022-01-16 19:35] VITALS: BP 136/61
[2022-01-16] MEDS: TAMSULOSIN 0.4 MG CAP.SR.24H GT SCH (21:16)
[2022-01-16] MEDS: ATORVASTATIN 40 MG TABLET GT SCH (21:17)
[2022-01-16] MEDS: MELATONIN 3 MG TABLET GT SCH (21:17)
[2022-01-16] MEDS: INSULIN GLARGINE, 100 UNIT/ML CARTRIDGE SQ SCH (21:18)
[2022-01-17 00:33] VITALS: BP 134/68
[2022-01-17] MEDS: POLYVINYL ALCOHOL 15 ML BOTTLE EACHEYE SCH ×5 (00:43→23:32)
[2022-01-17] MEDS: BLOOD SUGAR DIAGNOSTIC 1 EACH STRIP IN SCH ×5 (00:43→23:32)
[2022-01-17] MEDS: ALBUTEROL FS 2.5 MG/3 ML VIAL.NEB NEB SCH ×4 (01:28→19:39)
[2022-01-17] MEDS: INSULIN REGULAR, HUMAN 100 UNIT/ML 3 ML VIAL SQ SCH ×3 (05:50→18:25)
[2022-01-17] MEDS: GLUCERNA 1.2 1,000 ML BOTTLE GT PRN ×2 (05:50→18:55)
[2022-01-17 07:27] VITALS: BP 125/64
[2022-01-17] MEDS: THERAHONEY GEL 1.5 OZ TUBE TP SCH ×2 (09:00→20:40)
[2022-01-17] MEDS: VITAMINS A AND D 56.7 GM TUBE TP SCH ×2 (09:00→20:40)
[2022-01-17] MEDS: DEXAMETHASONE 1 MG TABLET GT SCH (09:17)
[2022-01-17] MEDS: FERROUS SULFATE (325 MG) 325 MG/TAB TABLET GT SCH (09:17)
[2022-01-17] MEDS: ASPIRIN 81 MG TAB.CHEW GT SCH (09:17)
[2022-01-17] MEDS: PROSOURCE / PROSTAT (PYXIS) 30 ML UDC GT SCH ×2 (09:17→17:58)
[2022-01-17] MEDS: PANTOPRAZOLE 40 MG/PACK PACK GT SCH (09:17)
[2022-01-17 12:30] VITALS: BP 128/62
--- NOTE | 2022-01-17 13:37 | NUR ---
Right upper arm PICC line was DC'd as ordered. Pt tolerated well, no bleeding noted, catheter tip intact. Gauze dressing applied to the area.
[2022-01-17] MEDS: POLYETHYLENE GLYCOL 3350 17 GM POWD.PACK GT PRN (19:00)
[2022-01-17 19:37] VITALS: BP 133/64
--- NOTE | 2022-01-17 20:31 | NUR ---
Patient seen by SHAHRAM Christine. No new orders at this time.
[2022-01-17] MEDS: ATORVASTATIN 40 MG TABLET GT SCH (21:06)
[2022-01-17] MEDS: MELATONIN 3 MG TABLET GT SCH (21:06)
[2022-01-17] MEDS: INSULIN GLARGINE, 100 UNIT/ML CARTRIDGE SQ SCH (21:06)
[2022-01-17] MEDS: TAMSULOSIN 0.4 MG CAP.SR.24H GT SCH (21:06)
[2022-01-17 23:47] VITALS: BP 130/73
[2022-01-18] MEDS: ALBUTEROL FS 2.5 MG/3 ML VIAL.NEB NEB SCH ×4 (01:22→19:41)
[2022-01-18] MEDS: BLOOD SUGAR DIAGNOSTIC 1 EACH STRIP IN SCH ×4 (05:14→23:31)
[2022-01-18] MEDS: POLYVINYL ALCOHOL 15 ML BOTTLE EACHEYE SCH ×4 (05:14→23:04)
[2022-01-18] MEDS: INSULIN REGULAR, HUMAN 100 UNIT/ML 3 ML VIAL SQ SCH ×3 (05:14→18:55)
[2022-01-18] MEDS: BISACODYL SUPP (10 MG) 10 MG/SUPP.RECT SUPP.RECT RC PRN (06:11)
[2022-01-18 07:30] VITALS: BP 131/63
[2022-01-18] MEDS: THERAHONEY GEL 1.5 OZ TUBE TP SCH ×2 (09:00→20:32)
[2022-01-18] MEDS: VITAMINS A AND D 56.7 GM TUBE TP SCH ×2 (09:00→20:32)
[2022-01-18] MEDS: ASPIRIN 81 MG TAB.CHEW GT SCH (09:36)
[2022-01-18] MEDS: PANTOPRAZOLE 40 MG/PACK PACK GT SCH (09:46)
[2022-01-18] MEDS: PROSOURCE / PROSTAT (PYXIS) 30 ML UDC GT SCH ×2 (09:46→16:44)
[2022-01-18] MEDS: FERROUS SULFATE (325 MG) 325 MG/TAB TABLET GT SCH (09:46)
[2022-01-18] MEDS: DEXAMETHASONE 1 MG TABLET GT SCH (09:46)
[2022-01-18 12:26] VITALS: BP 127/66
--- NOTE | 2022-01-18 14:12 | NUR ---
INTERDISCIPLINARY PLAN OF CARE CONFERENCE took place today. The patients , Rosaline [phone] Colón and Interdisciplinary team discussed the plan of care in detail. Current orders as well as treatments and medications were reviewed.
--- NOTE | 2022-01-18 15:44 | NUR ---
During IDT, Dr. Colón made aware that patient has no longer hematuria and therefore resume Lovenox and added Vit C and Zinc Sulfate as supplement for wound management. Resident's Rosaline at bedside, updated of new order and what was discussed during IDT. Family asked about the condition of sacral wound and blood sugar readings. Blood sugar has been running in the low 200's and below with no further episode of hypoglycemia since insulin coverage was changed on 01/15/22. Family seen the wound in the L lateral knee and redness in the L and R ankle Sacral wound improving. Appreciated the time spent answering her questions
[2022-01-18] MEDS: ENOXAPARIN SODIUM 40 MG/0.4 ML DISP.SYRIN SQ SCH (16:44)
[2022-01-18] MEDS: GLUCERNA 1.2 1,000 ML BOTTLE GT PRN (19:13)
[2022-01-18 19:22] VITALS: BP 125/58
[2022-01-18] MEDS: POLYETHYLENE GLYCOL 3350 17 GM POWD.PACK GT PRN (20:32)
[2022-01-18] MEDS: INSULIN GLARGINE, 100 UNIT/ML CARTRIDGE SQ SCH (21:09)
[2022-01-18] MEDS: TAMSULOSIN 0.4 MG CAP.SR.24H GT SCH (21:09)
[2022-01-18] MEDS: ATORVASTATIN 40 MG TABLET GT SCH (21:09)
[2022-01-18] MEDS: MELATONIN 3 MG TABLET GT SCH (21:09)
[2022-01-19] VITALS: BP 108/59
[2022-01-19] MEDS: ALBUTEROL FS 2.5 MG/3 ML VIAL.NEB NEB SCH ×4 (01:15→19:02)
[2022-01-19] MEDS: BLOOD SUGAR DIAGNOSTIC 1 EACH STRIP IN SCH ×4 (05:27→23:05)
[2022-01-19] MEDS: POLYVINYL ALCOHOL 15 ML BOTTLE EACHEYE SCH ×4 (05:27→23:05)
[2022-01-19] MEDS: INSULIN REGULAR, HUMAN 100 UNIT/ML 3 ML VIAL SQ SCH ×3 (05:27→17:46)
[2022-01-19 07:21] VITALS: BP 137/61
[2022-01-19] MEDS: ASPIRIN 81 MG TAB.CHEW GT SCH (09:07)
[2022-01-19] MEDS: FERROUS SULFATE (325 MG) 325 MG/TAB TABLET GT SCH (09:07)
[2022-01-19] MEDS: PROSOURCE / PROSTAT (PYXIS) 30 ML UDC GT SCH ×2 (09:07→16:40)
[2022-01-19] MEDS: ZINC SULFATE 220 MG CAPSULE PO SCH (09:08)
[2022-01-19] MEDS: ASCORBIC ACID 500 MG TABLET PO SCH (09:08)
[2022-01-19] MEDS: VITAMINS A AND D 56.7 GM TUBE TP SCH ×2 (09:10→20:29)
[2022-01-19] MEDS: DEXAMETHASONE 1 MG TABLET GT SCH (09:10)
[2022-01-19] MEDS: THERAHONEY GEL 1.5 OZ TUBE TP SCH ×2 (09:10→20:29)
[2022-01-19] MEDS: PANTOPRAZOLE 40 MG/PACK PACK GT SCH (09:10)
[2022-01-19 12:24] VITALS: BP 127/58
[2022-01-19] MEDS: ENOXAPARIN SODIUM 40 MG/0.4 ML DISP.SYRIN SQ SCH (16:39)
[2022-01-19] MEDS: GLUCERNA 1.2 1,000 ML BOTTLE GT PRN (16:40)
[2022-01-19 20:05] VITALS: BP 106/63
[2022-01-19] MEDS: MELATONIN 3 MG TABLET GT SCH (21:04)
[2022-01-19] MEDS: TAMSULOSIN 0.4 MG CAP.SR.24H GT SCH (21:04)
[2022-01-19] MEDS: ATORVASTATIN 40 MG TABLET GT SCH (21:04)
[2022-01-19] MEDS: INSULIN GLARGINE, 100 UNIT/ML CARTRIDGE SQ SCH (21:06)
[2022-01-20] MEDS: ALBUTEROL FS 2.5 MG/3 ML VIAL.NEB NEB SCH ×4 (00:32→19:42)
[2022-01-20 01:47] VITALS: BP 101/59
[2022-01-20] MEDS: POLYVINYL ALCOHOL 15 ML BOTTLE EACHEYE SCH ×4 (05:10→23:41)
[2022-01-20] MEDS: BLOOD SUGAR DIAGNOSTIC 1 EACH STRIP IN SCH ×4 (05:29→23:41)
[2022-01-20] MEDS: INSULIN REGULAR, HUMAN 100 UNIT/ML 3 ML VIAL SQ SCH ×3 (05:30→17:49)
[2022-01-20 08:01] VITALS: BP 128/65
[2022-01-20] MEDS: ASCORBIC ACID 500 MG TABLET PO SCH (09:14)
[2022-01-20] MEDS: ASPIRIN 81 MG TAB.CHEW GT SCH (09:14)
[2022-01-20] MEDS: FERROUS SULFATE (325 MG) 325 MG/TAB TABLET GT SCH (09:14)
[2022-01-20] MEDS: DEXAMETHASONE 1 MG TABLET GT SCH (09:14)
[2022-01-20] MEDS: PROSOURCE / PROSTAT (PYXIS) 30 ML UDC GT SCH ×2 (09:14→17:08)
[2022-01-20] MEDS: ZINC SULFATE 220 MG CAPSULE PO SCH (09:14)
[2022-01-20] MEDS: PANTOPRAZOLE 40 MG/PACK PACK GT SCH (09:14)
[2022-01-20] MEDS: THERAHONEY GEL 1.5 OZ TUBE TP SCH ×2 (09:15→21:14)
[2022-01-20] MEDS: VITAMINS A AND D 56.7 GM TUBE TP SCH ×2 (09:15→21:14)
[2022-01-20] MEDS: GLUCERNA 1.2 1,000 ML BOTTLE GT PRN (11:55)
[2022-01-20 12:52] VITALS: BP 145/69
[2022-01-20] MEDS: ENOXAPARIN SODIUM 40 MG/0.4 ML DISP.SYRIN SQ SCH (16:50)
[2022-01-20 19:31] VITALS: BP 100/57
[2022-01-20] MEDS: ATORVASTATIN 40 MG TABLET GT SCH (21:14)
[2022-01-20] MEDS: INSULIN GLARGINE, 100 UNIT/ML CARTRIDGE SQ SCH (21:14)
[2022-01-20] MEDS: MELATONIN 3 MG TABLET GT SCH (21:14)
[2022-01-20] MEDS: TAMSULOSIN 0.4 MG CAP.SR.24H GT SCH (21:14)
[2022-01-21] MEDS: ALBUTEROL FS 2.5 MG/3 ML VIAL.NEB NEB SCH ×4 (01:53→19:11)
[2022-01-21] MEDS: BLOOD SUGAR DIAGNOSTIC 1 EACH STRIP IN SCH ×4 (05:00→23:49)
[2022-01-21] MEDS: POLYVINYL ALCOHOL 15 ML BOTTLE EACHEYE SCH ×4 (05:00→23:49)
[2022-01-21] MEDS: INSULIN REGULAR, HUMAN 100 UNIT/ML 3 ML VIAL SQ SCH ×3 (05:01→17:55)
[2022-01-21 07:46] VITALS: BP 117/66
[2022-01-21] MEDS: THERAHONEY GEL 1.5 OZ TUBE TP SCH ×2 (09:00→21:37)
[2022-01-21] MEDS: VITAMINS A AND D 56.7 GM TUBE TP SCH ×2 (09:00→21:37)
--- NOTE | 2022-01-21 09:05 | NUR ---
Optometry: Pt. received optometry exam by Dr. Rosanne Desai O.d. [phone] ON 01/15/2022. Progress note was filed in patient's physical chart unde progress notes.
[2022-01-21] MEDS: PANTOPRAZOLE 40 MG/PACK PACK GT SCH (09:13)
[2022-01-21] MEDS: ASCORBIC ACID 500 MG TABLET PO SCH (09:13)
[2022-01-21] MEDS: ASPIRIN 81 MG TAB.CHEW GT SCH (09:13)
[2022-01-21] MEDS: DEXAMETHASONE 1 MG TABLET GT SCH (09:13)
[2022-01-21] MEDS: ZINC SULFATE 220 MG CAPSULE PO SCH (09:13)
[2022-01-21] MEDS: PROSOURCE / PROSTAT (PYXIS) 30 ML UDC GT SCH ×2 (09:13→17:35)
[2022-01-21] MEDS: FERROUS SULFATE (325 MG) 325 MG/TAB TABLET GT SCH (09:13)
[2022-01-21 13:57] VITALS: BP 118/60
[2022-01-21] MEDS: ENOXAPARIN SODIUM 40 MG/0.4 ML DISP.SYRIN SQ SCH (16:00)
[2022-01-21] MEDS: GLUCERNA 1.2 1,000 ML BOTTLE GT PRN (18:48)
[2022-01-21 19:32] VITALS: BP 101/55
[2022-01-21] MEDS: INSULIN GLARGINE, 100 UNIT/ML CARTRIDGE SQ SCH (21:37)
[2022-01-21] MEDS: TAMSULOSIN 0.4 MG CAP.SR.24H GT SCH (21:37)
[2022-01-21] MEDS: MELATONIN 3 MG TABLET GT SCH (21:37)
[2022-01-21] MEDS: ATORVASTATIN 40 MG TABLET GT SCH (21:37)
[2022-01-22] MEDS: ALBUTEROL FS 2.5 MG/3 ML VIAL.NEB NEB SCH ×4 (00:33→19:30)
[2022-01-22] MEDS: BLOOD SUGAR DIAGNOSTIC 1 EACH STRIP IN SCH ×3 (06:07→17:20)
[2022-01-22] MEDS: POLYVINYL ALCOHOL 15 ML BOTTLE EACHEYE SCH ×3 (06:07→17:20)
[2022-01-22] MEDS: INSULIN REGULAR, HUMAN 100 UNIT/ML 3 ML VIAL SQ SCH ×3 (06:07→17:20)
[2022-01-22 07:51] VITALS: BP 125/58
[2022-01-22] MEDS: THERAHONEY GEL 1.5 OZ TUBE TP SCH ×2 (08:57→21:24)
[2022-01-22] MEDS: PROSOURCE / PROSTAT (PYXIS) 30 ML UDC GT SCH ×2 (08:57→16:31)
[2022-01-22] MEDS: ASCORBIC ACID 500 MG TABLET PO SCH (08:57)
[2022-01-22] MEDS: VITAMINS A AND D 56.7 GM TUBE TP SCH ×2 (08:57→21:24)
[2022-01-22] MEDS: FERROUS SULFATE (325 MG) 325 MG/TAB TABLET GT SCH (08:57)
[2022-01-22] MEDS: ASPIRIN 81 MG TAB.CHEW GT SCH (08:57)
[2022-01-22] MEDS: ZINC SULFATE 220 MG CAPSULE PO SCH (08:57)
[2022-01-22] MEDS: PANTOPRAZOLE 40 MG/PACK PACK GT SCH (08:57)
[2022-01-22 12:45] VITALS: BP 138/62
[2022-01-22] MEDS: GLUCERNA 1.2 1,000 ML BOTTLE GT PRN (14:49)
[2022-01-22] MEDS: ENOXAPARIN SODIUM 40 MG/0.4 ML DISP.SYRIN SQ SCH (16:31)
[2022-01-22 20:28] VITALS: BP 105/51
[2022-01-22] MEDS: MELATONIN 3 MG TABLET GT SCH (21:25)
[2022-01-22] MEDS: TAMSULOSIN 0.4 MG CAP.SR.24H GT SCH (21:25)
[2022-01-22] MEDS: ATORVASTATIN 40 MG TABLET GT SCH (21:25)
[2022-01-22] MEDS: INSULIN GLARGINE, 100 UNIT/ML CARTRIDGE SQ SCH (22:08)
[2022-01-23] MEDS: BLOOD SUGAR DIAGNOSTIC 1 EACH STRIP IN SCH ×5 (00:06→23:45)
[2022-01-23] MEDS: POLYVINYL ALCOHOL 15 ML BOTTLE EACHEYE SCH ×5 (00:06→23:45)
[2022-01-23] MEDS: ALBUTEROL FS 2.5 MG/3 ML VIAL.NEB NEB SCH ×4 (01:30→19:15)
[2022-01-23] MEDS: INSULIN REGULAR, HUMAN 100 UNIT/ML 3 ML VIAL SQ SCH ×3 (06:09→17:39)
[2022-01-23] MEDS: POLYETHYLENE GLYCOL 3350 17 GM POWD.PACK GT PRN (07:02)
[2022-01-23 07:27] VITALS: BP 103/60
[2022-01-23] MEDS: ASPIRIN 81 MG TAB.CHEW GT SCH (09:58)
[2022-01-23] MEDS: PROSOURCE / PROSTAT (PYXIS) 30 ML UDC GT SCH ×2 (09:58→17:35)
[2022-01-23] MEDS: ASCORBIC ACID 500 MG TABLET PO SCH (09:58)
[2022-01-23] MEDS: VITAMINS A AND D 56.7 GM TUBE TP SCH ×2 (09:58→21:19)
[2022-01-23] MEDS: PANTOPRAZOLE 40 MG/PACK PACK GT SCH (09:58)
[2022-01-23] MEDS: FERROUS SULFATE (325 MG) 325 MG/TAB TABLET GT SCH (09:58)
[2022-01-23] MEDS: THERAHONEY GEL 1.5 OZ TUBE TP SCH ×2 (09:58→21:19)
[2022-01-23] MEDS: ZINC SULFATE 220 MG CAPSULE PO SCH (09:58)
[2022-01-23 12:06] VITALS: BP 106/64
[2022-01-23] MEDS: GLUCERNA 1.2 1,000 ML BOTTLE GT PRN (12:18)
[2022-01-23] MEDS: ENOXAPARIN SODIUM 40 MG/0.4 ML DISP.SYRIN SQ SCH (16:00)
[2022-01-23 19:50] VITALS: BP 104/51
[2022-01-23] MEDS: INSULIN GLARGINE, 100 UNIT/ML CARTRIDGE SQ SCH (21:43)
[2022-01-23] MEDS: ATORVASTATIN 40 MG TABLET GT SCH (21:49)
[2022-01-23] MEDS: TAMSULOSIN 0.4 MG CAP.SR.24H GT SCH (21:49)
--- NOTE | 2022-01-23 21:49 | NUR ---
TIPPING MACHINE OPERATOR NOTES Insulin Lantus 18 units held d/t low blood sugar, 42. Protocol followed, 8 oz orange juice given via GT. Patient alert with no change of LOC. Will closely monitor. GT feeding on , with HOB up at all times. Will re check blood sugar.
--- NOTE | 2022-01-23 21:55 | NUR ---
LOW BLOOD GLUCOSE LEVEL 3 Accu check 50mg/dl, repeated test 42mg/dl Patients remains awake, in no respiratory distress. Blood glucose protocol followed. Kaufman juice via GTube was given, will reassess intervention. Patient on routine Insulin Regular 4 units at 0600 and 1200. Insulin Regular 2 units at 1800. Insulin Lantus 18 units at 2200 as per medication records review.
[2022-01-23] MEDS: MELATONIN 3 MG TABLET GT SCH (22:34)
--- NOTE | 2022-01-23 22:35 | NUR ---
FINANCIAL QUANTITATIVE ANALYST NOTES Rechecked blood sugar, 109mg/dl. No change of condition noted. Appears calm and comfortable. Will continue to monitor.
--- NOTE | 2022-01-23 23:26 | NUR ---
BLOOD GLUCOSE IMPROVED 2226 Accu check finger stick 109 mg/dl. Patient remains awake, in no respiratory distress.
[2022-01-24 01:03] VITALS: BP 110/60
[2022-01-24] MEDS: ALBUTEROL FS 2.5 MG/3 ML VIAL.NEB NEB SCH ×4 (01:43→19:49)
[2022-01-24] MEDS: POLYVINYL ALCOHOL 15 ML BOTTLE EACHEYE SCH ×3 (05:29→17:57)
[2022-01-24] MEDS: BLOOD SUGAR DIAGNOSTIC 1 EACH STRIP IN SCH ×3 (05:30→17:57)
[2022-01-24] MEDS: INSULIN REGULAR, HUMAN 100 UNIT/ML 3 ML VIAL SQ SCH ×3 (05:31→18:00)
[2022-01-24 07:24] VITALS: BP 118/59
[2022-01-24] MEDS: PANTOPRAZOLE 40 MG/PACK PACK GT SCH (09:11)
[2022-01-24] MEDS: FERROUS SULFATE (325 MG) 325 MG/TAB TABLET GT SCH (09:11)
[2022-01-24] MEDS: ASPIRIN 81 MG TAB.CHEW GT SCH (09:11)
[2022-01-24] MEDS: ZINC SULFATE 220 MG CAPSULE PO SCH (09:11)
[2022-01-24] MEDS: ASCORBIC ACID 500 MG TABLET PO SCH (09:11)
[2022-01-24] MEDS: PROSOURCE / PROSTAT (PYXIS) 30 ML UDC GT SCH ×2 (09:11→16:37)
[2022-01-24] MEDS: THERAHONEY GEL 1.5 OZ TUBE TP SCH ×2 (09:12→21:00)
[2022-01-24] MEDS: VITAMINS A AND D 56.7 GM TUBE TP SCH ×2 (09:12→21:00)
--- NOTE | 2022-01-24 10:58 | NUR ---
Left message for Dr Mack that blood sugar was 42 last night, pt was given orange juice and blood sugar improved to 109.
[2022-01-24] MEDS ORDERED: SILVER NITRATE APPLICATOR 1 EA BOX TP SCH (11:00)
[2022-01-24] MEDS ORDERED: LIDOCAINE 1%-EPI 1:100,000 20 ML VIAL TP ONE (11:00)
--- NOTE | 2022-01-24 12:05 | NUR ---
CORAL Morse said she will do the serial wound debridement on the sacrum. Informed her that sacral wound appears healed already. She said she will see pt.
--- NOTE | 2022-01-24 12:15 | NUR ---
Seen by Dr Belkis Chen. Pt's bilateral ankle redness has improved. She said she will resolve it.
[2022-01-24 12:18] VITALS: BP 123/62
--- NOTE | 2022-01-24 12:57 | NUR ---
Seen by CORAL Perez. She will not do sacral debridement anymore. Sacral wound has significantly improved.
[2022-01-24] MEDS: ENOXAPARIN SODIUM 40 MG/0.4 ML DISP.SYRIN SQ SCH (16:37)
[2022-01-24] MEDS: GLUCERNA 1.2 1,000 ML BOTTLE GT PRN (16:37)
--- NOTE | 2022-01-24 16:44 | NUR ---
Pt's came to visit. Provided education regarding contact isolation precautions.
[2022-01-24 19:07] VITALS: BP 136/60
[2022-01-24] MEDS: MELATONIN 3 MG TABLET GT SCH (22:00)
[2022-01-24] MEDS: ATORVASTATIN 40 MG TABLET GT SCH (22:00)
[2022-01-24] MEDS: TAMSULOSIN 0.4 MG CAP.SR.24H GT SCH (22:00)
[2022-01-24] MEDS: INSULIN GLARGINE, 100 UNIT/ML CARTRIDGE SQ SCH (22:03)
[2022-01-24 23:25] VITALS: BP 120/62
[2022-01-25] MEDS: POLYVINYL ALCOHOL 15 ML BOTTLE EACHEYE SCH ×5 (00:29→23:32)
[2022-01-25] MEDS: BLOOD SUGAR DIAGNOSTIC 1 EACH STRIP IN SCH ×6 (00:29→23:32)
[2022-01-25] MEDS: ALBUTEROL FS 2.5 MG/3 ML VIAL.NEB NEB SCH ×3 (01:22→20:01)
[2022-01-25] MEDS: INSULIN REGULAR, HUMAN 100 UNIT/ML 3 ML VIAL SQ SCH ×3 (05:33→18:47)
[2022-01-25 07:25] VITALS: BP 100/59
[2022-01-25] MEDS: THERAHONEY GEL 1.5 OZ TUBE TP SCH ×2 (09:00→21:23)
[2022-01-25] MEDS: VITAMINS A AND D 56.7 GM TUBE TP SCH ×2 (09:00→21:23)
[2022-01-25] MEDS: ASPIRIN 81 MG TAB.CHEW GT SCH (09:34)
[2022-01-25] MEDS: ASCORBIC ACID 500 MG TABLET GT SCH (09:34)
[2022-01-25] MEDS: PANTOPRAZOLE 40 MG/PACK PACK GT SCH (09:34)
[2022-01-25] MEDS: PROSOURCE / PROSTAT (PYXIS) 30 ML UDC GT SCH ×2 (09:34→16:32)
[2022-01-25] MEDS: ZINC SULFATE 220 MG CAPSULE GT SCH (09:34)
[2022-01-25] MEDS: FERROUS SULFATE (325 MG) 325 MG/TAB TABLET GT SCH (09:34)
[2022-01-25 12:07] VITALS: BP 116/64
[2022-01-25] MEDS: ENOXAPARIN SODIUM 40 MG/0.4 ML DISP.SYRIN SQ SCH (16:32)
--- NOTE | 2022-01-25 17:01 | NUR ---
Latest Visitation Guidelines & Facility Update: PIERRE informed pt.'s responsible alliance party, Rosaline via email that, "SW Facility Update: No [facility] employee tested positive for COVID-19 this week. Residents and staff will continue receiving routine testing. We will continue to implement [facility] infection control protocols and continue screening employees before every shift. [facility] continues to follow infection control protocols and screen our residents and staff daily for symptoms". PIERRE also informed family that the visitation guidelines have not changed at this time and notified them that per [facility], when transmission rate lowers to moderate, fully vaccinated and boosted visitors will not need to show proof of negative COVID test.
[2022-01-25] MEDS: GLUCERNA 1.2 1,000 ML BOTTLE GT PRN (18:47)
[2022-01-25 19:28] VITALS: BP 142/64
[2022-01-25] MEDS: MELATONIN 3 MG TABLET GT SCH (21:23)
[2022-01-25] MEDS: TAMSULOSIN 0.4 MG CAP.SR.24H GT SCH (21:23)
[2022-01-25] MEDS: ATORVASTATIN 40 MG TABLET GT SCH (21:23)
[2022-01-25] MEDS: INSULIN GLARGINE, 100 UNIT/ML CARTRIDGE SQ SCH (21:24)
[2022-01-26 00:12] VITALS: BP 119/60
[2022-01-26] MEDS: ALBUTEROL FS 2.5 MG/3 ML VIAL.NEB NEB SCH ×4 (00:51→19:14)
[2022-01-26] MEDS: POLYVINYL ALCOHOL 15 ML BOTTLE EACHEYE SCH ×4 (05:44→23:49)
[2022-01-26] MEDS: BLOOD SUGAR DIAGNOSTIC 1 EACH STRIP IN SCH ×4 (05:44→23:49)
[2022-01-26] MEDS: INSULIN REGULAR, HUMAN 100 UNIT/ML 3 ML VIAL SQ SCH ×3 (05:45→17:49)
[2022-01-26 07:38] VITALS: BP 95/48
[2022-01-26] MEDS: FERROUS SULFATE (325 MG) 325 MG/TAB TABLET GT SCH (09:04)
[2022-01-26] MEDS: ASPIRIN 81 MG TAB.CHEW GT SCH (09:04)
[2022-01-26] MEDS: ZINC SULFATE 220 MG CAPSULE GT SCH (09:05)
[2022-01-26] MEDS: PANTOPRAZOLE 40 MG/PACK PACK GT SCH (09:05)
[2022-01-26] MEDS: ASCORBIC ACID 500 MG TABLET GT SCH (09:05)
[2022-01-26] MEDS: PROSOURCE / PROSTAT (PYXIS) 30 ML UDC GT SCH ×2 (09:05→17:11)
[2022-01-26] MEDS: VITAMINS A AND D 56.7 GM TUBE TP SCH ×2 (09:07→21:44)
[2022-01-26] MEDS: THERAHONEY GEL 1.5 OZ TUBE TP SCH ×2 (09:07→21:44)
[2022-01-26 12:53] VITALS: BP 96/50
[2022-01-26] MEDS: GLUCERNA 1.2 1,000 ML BOTTLE GT PRN (14:54)
[2022-01-26] MEDS: ENOXAPARIN SODIUM 40 MG/0.4 ML DISP.SYRIN SQ SCH (16:00)
[2022-01-26 19:41] VITALS: BP 136/63
[2022-01-26] MEDS: TAMSULOSIN 0.4 MG CAP.SR.24H GT SCH (21:44)
[2022-01-26] MEDS: ATORVASTATIN 40 MG TABLET GT SCH (21:44)
[2022-01-26] MEDS: MELATONIN 3 MG TABLET GT SCH (21:45)
[2022-01-26] MEDS: INSULIN GLARGINE, 100 UNIT/ML CARTRIDGE SQ SCH (21:46)
[2022-01-26 23:55] VITALS: BP 124/67
[2022-01-27] MEDS: ALBUTEROL FS 2.5 MG/3 ML VIAL.NEB NEB SCH ×4 (01:46→19:18)
[2022-01-27] MEDS: BLOOD SUGAR DIAGNOSTIC 1 EACH STRIP IN SCH ×4 (05:14→23:31)
[2022-01-27] MEDS: POLYVINYL ALCOHOL 15 ML BOTTLE EACHEYE SCH ×4 (05:14→23:31)
[2022-01-27] MEDS: INSULIN REGULAR, HUMAN 100 UNIT/ML 3 ML VIAL SQ SCH ×3 (05:18→18:22)
[2022-01-27] MEDS: BISACODYL SUPP (10 MG) 10 MG/SUPP.RECT SUPP.RECT RC PRN (06:50)
[2022-01-27 07:21] VITALS: BP 145/62
[2022-01-27] MEDS: ASPIRIN 81 MG TAB.CHEW GT SCH (09:12)
[2022-01-27] MEDS: PROSOURCE / PROSTAT (PYXIS) 30 ML UDC GT SCH ×2 (09:12→16:31)
[2022-01-27] MEDS: FERROUS SULFATE (325 MG) 325 MG/TAB TABLET GT SCH (09:12)
[2022-01-27] MEDS: ZINC SULFATE 220 MG CAPSULE GT SCH (09:38)
[2022-01-27] MEDS: ASCORBIC ACID 500 MG TABLET GT SCH (09:38)
[2022-01-27] MEDS: PANTOPRAZOLE 40 MG/PACK PACK GT SCH (09:39)
[2022-01-27] MEDS: THERAHONEY GEL 1.5 OZ TUBE TP SCH ×2 (09:40→21:03)
[2022-01-27] MEDS: VITAMINS A AND D 56.7 GM TUBE TP SCH ×2 (09:40→21:03)
[2022-01-27 12:49] VITALS: BP 148/68
--- NOTE | 2022-01-27 13:10 | NUR ---
RT will do trach change today, per RT She reported that patient has minimal bleeding upon suctioning and coughing too. Notified Dr. Mack regarding minimal trach bleeding, made him aware too that RT already changed trach tube. Dr. Mack said not to stop Lovenox. RT will lavage patient and closely monitor if bleeding increased. Patient not in resp. distress. Kept on contact isolation, all precautions observed.
[2022-01-27] MEDS: GLUCERNA 1.2 1,000 ML BOTTLE GT PRN (16:29)
[2022-01-27] MEDS: ENOXAPARIN SODIUM 40 MG/0.4 ML DISP.SYRIN SQ SCH (16:31)
[2022-01-27 20:25] VITALS: BP 125/61
[2022-01-27] MEDS: ATORVASTATIN 40 MG TABLET GT SCH (21:04)
[2022-01-27] MEDS: TAMSULOSIN 0.4 MG CAP.SR.24H GT SCH (21:04)
[2022-01-27] MEDS: MELATONIN 3 MG TABLET GT SCH (21:05)
[2022-01-27] MEDS: INSULIN GLARGINE, 100 UNIT/ML CARTRIDGE SQ SCH (21:12)
[2022-01-28] MEDS: ALBUTEROL FS 2.5 MG/3 ML VIAL.NEB NEB SCH ×4 (01:51→19:38)
[2022-01-28] MEDS: BLOOD SUGAR DIAGNOSTIC 1 EACH STRIP IN SCH ×4 (05:16→23:57)
[2022-01-28] MEDS: POLYVINYL ALCOHOL 15 ML BOTTLE EACHEYE SCH ×4 (05:16→23:57)
[2022-01-28] MEDS: INSULIN REGULAR, HUMAN 100 UNIT/ML 3 ML VIAL SQ SCH ×2 (05:17→17:47)
[2022-01-28] MEDS: GLUCERNA 1.2 1,000 ML BOTTLE GT PRN (05:47)
[2022-01-28 07:28] VITALS: BP 118/67
[2022-01-28] MEDS: PROSOURCE / PROSTAT (PYXIS) 30 ML UDC GT SCH ×2 (09:37→17:28)
[2022-01-28] MEDS: ASPIRIN 81 MG TAB.CHEW GT SCH (09:37)
[2022-01-28] MEDS: FERROUS SULFATE (325 MG) 325 MG/TAB TABLET GT SCH (09:37)
[2022-01-28] MEDS: ASCORBIC ACID 500 MG TABLET GT SCH (09:40)
[2022-01-28] MEDS: ZINC SULFATE 220 MG CAPSULE GT SCH (09:40)
[2022-01-28] MEDS: PANTOPRAZOLE 40 MG/PACK PACK GT SCH (09:40)
[2022-01-28] MEDS: VITAMINS A AND D 56.7 GM TUBE TP SCH ×2 (09:41→20:15)
[2022-01-28] MEDS: THERAHONEY GEL 1.5 OZ TUBE TP SCH ×2 (09:41→20:15)
--- NOTE | 2022-01-28 13:00 | NUR ---
Seen and examined by Dr. Mack, changed Regular insulin dose to 2 units at 0600,1200 and 1800. MRSA test for nares and sputum done for isolation clearance, specimen sent to lab.
[2022-01-28 13:03] VITALS: BP 120/58
[2022-01-28] MEDS ORDERED: INSULIN REGULAR, HUMAN 100 UNIT/ML 3 ML VIAL SQ SCH (13:50)
[2022-01-28] MEDS: ENOXAPARIN SODIUM 40 MG/0.4 ML DISP.SYRIN SQ SCH (16:00)
[2022-01-28] MEDS: ATORVASTATIN 40 MG TABLET GT SCH (21:16)
[2022-01-28] MEDS: TAMSULOSIN 0.4 MG CAP.SR.24H GT SCH (21:16)
[2022-01-28] MEDS: INSULIN GLARGINE, 100 UNIT/ML CARTRIDGE SQ SCH (21:16)
[2022-01-28] MEDS: MELATONIN 3 MG TABLET GT SCH (21:16)
[2022-01-28 22:00] VITALS: BP 103/56
[2022-01-29] MEDS: ALBUTEROL FS 2.5 MG/3 ML VIAL.NEB NEB SCH ×4 (00:31→20:03)
[2022-01-29] MEDS: GLUCERNA 1.2 1,000 ML BOTTLE GT PRN ×2 (04:47→18:49)
--- NOTE | 2022-01-29 05:34 | NUR ---
RT NOTE LOWERED RATE TO 10 FROM RR 12. NO SOB OR INCREASED WOB NOTIFIED. NO S/S RESPIRATORY DISTRESS NOTED. WILL CONTINUE TO MONITOR T/O SHIFT. MULTIMEDIA AUTHORING SPECIALIST AWARE. WILL NOTIFY DAYSHIFT RT OF CHANGE.
[2022-01-29] MEDS: INSULIN REGULAR, HUMAN 100 UNIT/ML 3 ML VIAL SQ SCH ×3 (06:00→18:00)
[2022-01-29] MEDS: BLOOD SUGAR DIAGNOSTIC 1 EACH STRIP IN SCH ×4 (06:05→23:32)
[2022-01-29] MEDS: POLYVINYL ALCOHOL 15 ML BOTTLE EACHEYE SCH ×4 (06:05→23:32)
--- NOTE | 2022-01-29 06:07 | NUR ---
At around 0500 Pts BS was Ck, it was 64, Insulin was not given and an orange juice given and re ck in an hour, @ 0600 pts BS was alyssa, it was 140,
[2022-01-29 07:45] VITALS: BP 137/52
--- NOTE | 2022-01-29 09:00 | NUR ---
Seen by Dr Colón. Informed him that vent rate was decreased from 14 to 10, no respiratory distress nor desaturation noted. Asked him if pt should be given the pneumococcal vaccine 13. Pt has received pneumococcal vaccine 23. Dr Colón said pt does not need pneumococcal vaccine 13.
[2022-01-29] MEDS: PANTOPRAZOLE 40 MG/PACK PACK GT SCH (09:34)
[2022-01-29] MEDS: FERROUS SULFATE (325 MG) 325 MG/TAB TABLET GT SCH (09:34)
[2022-01-29] MEDS: PROSOURCE / PROSTAT (PYXIS) 30 ML UDC GT SCH ×2 (09:34→17:24)
[2022-01-29] MEDS: ASCORBIC ACID 500 MG TABLET GT SCH (09:34)
[2022-01-29] MEDS: ZINC SULFATE 220 MG CAPSULE GT SCH (09:34)
[2022-01-29] MEDS: ASPIRIN 81 MG TAB.CHEW GT SCH (09:34)
[2022-01-29] MEDS: VITAMINS A AND D 56.7 GM TUBE TP SCH ×2 (09:35→20:59)
[2022-01-29] MEDS: THERAHONEY GEL 1.5 OZ TUBE TP SCH ×2 (09:35→20:59)
[2022-01-29 09:41] LABS: ABG BASE EXCESS 4.5 mmol/L; ABG OXYGEN SATURATION 98.8 % (92.0-98.5); ABG PCO2 37.9 mmHg (35.0-45.0); ABG PH 7.488 (7.350-7.450); ABG PO2 138.7 mmHg (75.0-100.0); AaDO2 30.7 mmHg; MetHb 0.3 % (0.0-1.5); O2Hb 98.5 % (94.0-97.0); PEEP,BG 5 cm H2O; SITE, ABG Right Radial; VT, ABG 400 mL
--- NOTE | 2022-01-29 10:27 | NUR ---
Ventilator rate was decreased from 14 to 10. Pt tolerating well and ABG was done. ABG result relayed to Dr Colón. He said to continue the same vent setting as tolerated.
[2022-01-29 14:10] VITALS: BP 123/63
--- NOTE | 2022-01-29 15:10 | NUR ---
Notified Dr Mack of blood sugar levels. He ordered to decrease Lantus insulin from 18 to 14 units SC q HS.
[2022-01-29] MEDS: ENOXAPARIN SODIUM 40 MG/0.4 ML DISP.SYRIN SQ SCH (16:00)
--- NOTE | 2022-01-29 18:22 | NUR ---
Regular insulin 2 units SC not given, BS- 73, charge nurse informed.
[2022-01-29 20:00] VITALS: BP 103/61
[2022-01-29] MEDS: ATORVASTATIN 40 MG TABLET GT SCH (21:00)
[2022-01-29] MEDS: TAMSULOSIN 0.4 MG CAP.SR.24H GT SCH (21:00)
[2022-01-29] MEDS: MELATONIN 3 MG TABLET GT SCH (21:02)
[2022-01-29] MEDS: INSULIN GLARGINE, 100 UNIT/ML CARTRIDGE SQ SCH (21:06)
[2022-01-30] MEDS: ALBUTEROL FS 2.5 MG/3 ML VIAL.NEB NEB SCH ×4 (01:42→19:43)
[2022-01-30] MEDS: BLOOD SUGAR DIAGNOSTIC 1 EACH STRIP IN SCH ×3 (05:25→17:36)
[2022-01-30] MEDS: POLYVINYL ALCOHOL 15 ML BOTTLE EACHEYE SCH ×3 (05:25→17:08)
[2022-01-30] MEDS: INSULIN REGULAR, HUMAN 100 UNIT/ML 3 ML VIAL SQ SCH ×3 (05:27→17:37)
[2022-01-30 07:44] VITALS: BP 115/61
[2022-01-30] MEDS: PROSOURCE / PROSTAT (PYXIS) 30 ML UDC GT SCH ×2 (09:30→17:08)
[2022-01-30] MEDS: ZINC SULFATE 220 MG CAPSULE GT SCH (09:30)
[2022-01-30] MEDS: ASPIRIN 81 MG TAB.CHEW GT SCH (09:30)
[2022-01-30] MEDS: ASCORBIC ACID 500 MG TABLET GT SCH (09:30)
[2022-01-30] MEDS: FERROUS SULFATE (325 MG) 325 MG/TAB TABLET GT SCH (09:30)
[2022-01-30] MEDS: PANTOPRAZOLE 40 MG/PACK PACK GT SCH (09:30)
[2022-01-30] MEDS: VITAMINS A AND D 56.7 GM TUBE TP SCH ×2 (09:31→21:21)
[2022-01-30] MEDS: THERAHONEY GEL 1.5 OZ TUBE TP SCH ×2 (09:31→21:21)
[2022-01-30] MEDS: ENOXAPARIN SODIUM 40 MG/0.4 ML DISP.SYRIN SQ SCH (16:00)
[2022-01-30] MEDS: GLUCERNA 1.2 1,000 ML BOTTLE GT PRN (17:18)
[2022-01-30 20:26] VITALS: BP 112/63
[2022-01-30] MEDS: MELATONIN 3 MG TABLET GT SCH (21:21)
[2022-01-30] MEDS: ATORVASTATIN 40 MG TABLET GT SCH (21:21)
[2022-01-30] MEDS: TAMSULOSIN 0.4 MG CAP.SR.24H GT SCH (21:21)
[2022-01-30] MEDS: INSULIN GLARGINE, 100 UNIT/ML CARTRIDGE SQ SCH (21:52)
--- NOTE | 2022-01-30 23:44 | NUR ---
Blood glucose 122mg\dl
[2022-01-31] MEDS: POLYVINYL ALCOHOL 15 ML BOTTLE EACHEYE SCH ×5 (00:18→23:29)
[2022-01-31] MEDS: BLOOD SUGAR DIAGNOSTIC 1 EACH STRIP IN SCH ×5 (00:18→23:29)
[2022-01-31] MEDS: ALBUTEROL FS 2.5 MG/3 ML VIAL.NEB NEB SCH ×4 (01:35→19:55)
[2022-01-31] MEDS: INSULIN REGULAR, HUMAN 100 UNIT/ML 3 ML VIAL SQ SCH ×3 (05:30→17:40)
[2022-01-31 07:27] VITALS: BP 133/64
[2022-01-31] MEDS: ASCORBIC ACID 500 MG TABLET GT SCH (08:46)
[2022-01-31] MEDS: THERAHONEY GEL 1.5 OZ TUBE TP SCH ×2 (08:46→21:46)
[2022-01-31] MEDS: PROSOURCE / PROSTAT (PYXIS) 30 ML UDC GT SCH ×2 (08:46→16:23)
[2022-01-31] MEDS: ASPIRIN 81 MG TAB.CHEW GT SCH (08:46)
[2022-01-31] MEDS: ZINC SULFATE 220 MG CAPSULE GT SCH (08:46)
[2022-01-31] MEDS: FERROUS SULFATE (325 MG) 325 MG/TAB TABLET GT SCH (08:46)
[2022-01-31] MEDS: PANTOPRAZOLE 40 MG/PACK PACK GT SCH (08:46)
[2022-01-31] MEDS: VITAMINS A AND D 56.7 GM TUBE TP SCH ×2 (08:47→21:46)
--- NOTE | 2022-01-31 10:24 | NUR ---
Received order to DC contact isolation for MRSA nares and sputum. Notified pt's Rosaline. Also notified her that pt will be moved to room 277-1.
[2022-01-31] MEDS: GLUCERNA 1.2 1,000 ML BOTTLE GT PRN (13:25)
[2022-01-31 14:09] VITALS: BP 110/54
[2022-01-31] MEDS: ENOXAPARIN SODIUM 40 MG/0.4 ML DISP.SYRIN SQ SCH (16:23)
--- NOTE | 2022-01-31 16:48 | NUR ---
Relayed sputum culture result to INTRUSION ANALYST Godfrey Browne. No new order.
[2022-01-31 19:39] VITALS: BP 161/81
[2022-01-31] MEDS: ACETAMINOPHEN 650 MG/20 ML UDC- SA PATIENTS-FEVER ONLY GT PRN ×2 (20:50→23:28)
--- NOTE | 2022-01-31 21:02 | NUR ---
Patient noted with hematuria and with temp 102.2 BP 161/81 HR 100 RR 29, notified with new orders CBC,CMP,Blood cultures x 2 urinalysis and urine culture.Hold Lovenox 40 mg SQ daily.start Zosyn 4.5 mg IV q 8 hours x 5 days per protocol for fever. Tylenol 650 mg given via Gt and cooling measures provided. Rosaline made aware of patient change of condition. Will continue to monitor.
[2022-01-31 21:26] LABS: BASOPHILS # (AUTO) 0.1 K/uL (0.0-0.2); EOSINOPHILS % (AUTO) 1.1 % (0.0-6.0); HEMATOCRIT 32 % (39-51); HEMOGLOBIN 10.3 g/dL (13.5-17.5); LYMPHOCYTES # (AUTO) 0.6 K/uL (0.8-4.8); LYMPHOCYTES % (AUTO) 6.1 % (20.0-44.0); MEAN CORPUSCULAR HGB CONC 33 g/dl (31.0-36.0); MEAN CORPUSCULAR VOLUME 83 fL (80-96); MONOCYTES # (AUTO) 0.7 K/uL (0.1-1.30); MONOCYTES % (AUTO) 7.1 % (2.0-12.0); NEUTROPHILS # (AUTO) 7.8 K/uL (1.8-8.9); NEUTROPHILS % (AUTO) 84.7 % (43.0-81.0); PLATELET COUNT (AUTO) 292 K/uL (150-450); RED BLOOD CELL COUNT(AUTO) 3.79 MIL/uL (4.5-6.0); WHITE BLOOD COUNT (AUTO) 9.2 K/uL (4.3-11.0)
[2022-01-31] MEDS: ZOSYN IVPB 4.5 G in IV D5W 50ml IV SCH (21:30)
[2022-01-31] MEDS: MELATONIN 3 MG TABLET GT SCH (21:47)
[2022-01-31] MEDS: ATORVASTATIN 40 MG TABLET GT SCH (21:47)
[2022-01-31] MEDS: INSULIN GLARGINE, 100 UNIT/ML CARTRIDGE SQ SCH (21:47)
[2022-01-31] MEDS: TAMSULOSIN 0.4 MG CAP.SR.24H GT SCH (21:47)
[2022-01-31 22:54] LABS: ALBUMIN 3.5 g/dL (3.4-5.0); BILIRUBIN,TOTAL 0.5 mg/dL (0.2-1.0); CREATININE 0.8 mg/dL (0.6-1.3); POTASSIUM 4.6 mmol/L (3.5-5.1); TOTAL PROTEIN, SERUM 7.9 g/dL (6.4-8.2)
[2022-02-01] MEDS ORDERED: ZOSYN IVPB 4.5 G in IV D5W 50ml IV SCH ×2
[2022-02-01 00:19] VITALS: BP 101/59
[2022-02-01 01:27] LABS: BILIRUBIN,URINE MODERATE (NEGATIVE); COLOR,URINE RED (YELLOW); LEUKOCYTE ESTERASE ,URINE LARGE (NEGATIVE); NITRITE, URINE POSITIVE (NEGATIVE); PROTEIN,URINE >=300 mg/dl (NEGATIVE); UGLUCOSE 100 MG/DL mg/dL (NEGATIVE); UROBILINOGEN,URINE >=8.0 EU/dL (0.2)
[2022-02-01 01:52] LABS: BACTERIA,URINE Many /HPF (None Seen); RBC,URINE TOO NUMEROUS TO COUN /HPF (0-2); WBC,URINE TOO NUMEROUS TO COUN /HPF (0-3)
[2022-02-01 01:53] LABS: SQUAMOUS EPITHELIAL CELL,UR None Seen /HPF (None Seen)
[2022-02-01] MEDS: ALBUTEROL FS 2.5 MG/3 ML VIAL.NEB NEB SCH ×4 (02:17→20:25)
[2022-02-01] MEDS: ZOSYN IVPB 4.5 G in IV D5W 50ml IV SCH ×2 (05:11→15:32)
[2022-02-01] MEDS: POLYVINYL ALCOHOL 15 ML BOTTLE EACHEYE SCH ×4 (05:41→23:43)
[2022-02-01] MEDS: BLOOD SUGAR DIAGNOSTIC 1 EACH STRIP IN SCH ×4 (05:41→23:43)
[2022-02-01] MEDS: INSULIN REGULAR, HUMAN 100 UNIT/ML 3 ML VIAL SQ SCH ×3 (05:42→17:38)
--- NOTE | 2022-02-01 06:21 | NUR ---
Patient is afebrile Temp 97.8 HR 57 no distress,still having hematuria,will continue to monitor and will endorse.
[2022-02-01 07:50] VITALS: BP 113/79
[2022-02-01] MEDS: PROSOURCE / PROSTAT (PYXIS) 30 ML UDC GT SCH ×2 (08:57→17:37)
[2022-02-01] MEDS: PANTOPRAZOLE 40 MG/PACK PACK GT SCH (08:57)
[2022-02-01] MEDS: ASPIRIN 81 MG TAB.CHEW GT SCH (08:57)
[2022-02-01] MEDS: FERROUS SULFATE (325 MG) 325 MG/TAB TABLET GT SCH (08:57)
[2022-02-01] MEDS: ZINC SULFATE 220 MG CAPSULE GT SCH (08:58)
[2022-02-01] MEDS: ASCORBIC ACID 500 MG TABLET GT SCH (08:58)
[2022-02-01] MEDS: VITAMINS A AND D 56.7 GM TUBE TP SCH ×2 (08:58→21:09)
[2022-02-01] MEDS: THERAHONEY GEL 1.5 OZ TUBE TP SCH ×2 (08:58→21:09)
[2022-02-01 12:02] VITALS: BP 109/62
--- NOTE | 2022-02-01 15:18 | NUR ---
INTERDISCIPLINARY PLAN OF CARE CONFERENCE took place today. The patients , Rosaline [phone] Colón and Interdisciplinary team discussed the plan of care in detail. Current orders as well as treatments and medications were reviewed.
--- NOTE | 2022-02-01 16:46 | NUR ---
During IDT, Dr. Colón and the team reviewed laboratory results, medications, skin condition and treatments. Patient's sacral wound is healing well and there is no need for indwelling FC. Dr. Colón said it is OK to DC F/C, however urine still with hematuria. Patient's Rosaline visited and explained what was discussed during IDT, new orders and plan to gradually wean patient off from ventilator. Appreciated the update provided.
[2022-02-01 19:10] VITALS: BP 136/68
[2022-02-01] MEDS: PIPERACILLIN /TAZOBACTAM 3.375 G in IV D5W 100 ML IV SCH (21:08)
[2022-02-01] MEDS: ATORVASTATIN 40 MG TABLET GT SCH (21:09)
[2022-02-01] MEDS: MELATONIN 3 MG TABLET GT SCH (21:09)
[2022-02-01] MEDS: TAMSULOSIN 0.4 MG CAP.SR.24H GT SCH (21:09)
[2022-02-01] MEDS: INSULIN GLARGINE, 100 UNIT/ML CARTRIDGE SQ SCH (21:26)
--- NOTE | 2022-02-01 23:45 | NUR ---
Blood glucose 107 mg\dl
[2022-02-02 00:04] VITALS: BP 110/59
[2022-02-02] MEDS: GLUCERNA 1.2 1,000 ML BOTTLE GT PRN ×2 (01:45→18:05)
[2022-02-02] MEDS: ALBUTEROL FS 2.5 MG/3 ML VIAL.NEB NEB SCH ×4 (02:25→20:28)
[2022-02-02] MEDS: PIPERACILLIN /TAZOBACTAM 3.375 G in IV D5W 100 ML IV SCH ×3 (05:12→21:04)
[2022-02-02] MEDS: BLOOD SUGAR DIAGNOSTIC 1 EACH STRIP IN SCH ×4 (05:26→23:57)
[2022-02-02] MEDS: POLYVINYL ALCOHOL 15 ML BOTTLE EACHEYE SCH ×4 (05:26→23:57)
[2022-02-02] MEDS: INSULIN REGULAR, HUMAN 100 UNIT/ML 3 ML VIAL SQ SCH ×3 (05:27→17:37)
--- NOTE | 2022-02-02 07:03 | NUR ---
Patient aguiar catheter removed/discontinued.Will continue to monitor for any hematuria. Will endorse.
[2022-02-02 07:26] VITALS: BP 107/65
[2022-02-02] MEDS: PANTOPRAZOLE 40 MG/PACK PACK GT SCH (09:39)
[2022-02-02] MEDS: PROSOURCE / PROSTAT (PYXIS) 30 ML UDC GT SCH ×2 (09:39→17:36)
[2022-02-02] MEDS: ASPIRIN 81 MG TAB.CHEW GT SCH (09:39)
[2022-02-02] MEDS: ZINC SULFATE 220 MG CAPSULE GT SCH (09:39)
[2022-02-02] MEDS: ASCORBIC ACID 500 MG TABLET GT SCH (09:39)
[2022-02-02] MEDS: VITAMINS A AND D 56.7 GM TUBE TP SCH ×2 (09:39→21:03)
[2022-02-02] MEDS: FERROUS SULFATE (325 MG) 325 MG/TAB TABLET GT SCH (09:39)
[2022-02-02] MEDS: THERAHONEY GEL 1.5 OZ TUBE TP SCH ×2 (09:39→21:03)
[2022-02-02 12:08] VITALS: BP 127/70
--- NOTE | 2022-02-02 16:22 | NUR ---
Resident urinating yellow urine with adequate output, no hematuria. Continue on IV ATB Zosyn, no adverse reaction.
[2022-02-02 19:58] VITALS: BP 130/70
[2022-02-02] MEDS: ATORVASTATIN 40 MG TABLET GT SCH (21:03)
[2022-02-02] MEDS: TAMSULOSIN 0.4 MG CAP.SR.24H GT SCH (21:03)
[2022-02-02] MEDS: MELATONIN 3 MG TABLET GT SCH (21:03)
[2022-02-02] MEDS: INSULIN GLARGINE, 100 UNIT/ML CARTRIDGE SQ SCH (21:27)
[2022-02-03 00:30] VITALS: BP 126/68
[2022-02-03] MEDS: ALBUTEROL FS 2.5 MG/3 ML VIAL.NEB NEB SCH ×4 (01:03→19:43)
[2022-02-03] MEDS: PIPERACILLIN /TAZOBACTAM 3.375 G in IV D5W 100 ML IV SCH ×2 (04:28→12:37)
[2022-02-03] MEDS: BLOOD SUGAR DIAGNOSTIC 1 EACH STRIP IN SCH ×3 (05:50→18:02)
[2022-02-03] MEDS: POLYVINYL ALCOHOL 15 ML BOTTLE EACHEYE SCH ×3 (05:50→18:02)
[2022-02-03] MEDS: INSULIN REGULAR, HUMAN 100 UNIT/ML 3 ML VIAL SQ SCH ×3 (05:51→18:05)
[2022-02-03 07:46] VITALS: BP 113/56
[2022-02-03] MEDS: ZINC SULFATE 220 MG CAPSULE GT SCH (09:00)
[2022-02-03] MEDS: PANTOPRAZOLE 40 MG/PACK PACK GT SCH (09:00)
[2022-02-03] MEDS: ASCORBIC ACID 500 MG TABLET GT SCH (09:00)
[2022-02-03] MEDS: FERROUS SULFATE (325 MG) 325 MG/TAB TABLET GT SCH (09:00)
[2022-02-03] MEDS: PROSOURCE / PROSTAT (PYXIS) 30 ML UDC GT SCH ×2 (09:00→17:13)
[2022-02-03] MEDS: VITAMINS A AND D 56.7 GM TUBE TP SCH ×2 (09:00→20:21)
[2022-02-03] MEDS: THERAHONEY GEL 1.5 OZ TUBE TP SCH ×2 (09:00→20:21)
[2022-02-03] MEDS: ASPIRIN 81 MG TAB.CHEW GT SCH (09:00)
[2022-02-03 13:22] VITALS: BP 122/64
--- NOTE | 2022-02-03 16:50 | NUR ---
Left a message to Dr. Mack regarding final urine culture showing E. Coli >100,000 cfu/ml, and Pseudomonas Aeruginosa 50,000 cfu/ml and evaluate current ATB Zosyn. Awaiting for response.
[2022-02-03] MEDS: GLUCERNA 1.2 1,000 ML BOTTLE GT PRN (17:13)
--- NOTE | 2022-02-03 18:15 | NUR ---
Received an order from Dr. Mack to KELSY Rowe and start Cefepime 1 gm Q 12 hours x 7 days. Order carried out. Patient's Rosaline informed.
[2022-02-03] MEDS: CEFEPIME 1 GM in IV D5W 50 ML IV SCH (20:00)
[2022-02-03 20:03] VITALS: BP 120/59
[2022-02-03] MEDS: ATORVASTATIN 40 MG TABLET GT SCH (21:30)
[2022-02-03] MEDS: TAMSULOSIN 0.4 MG CAP.SR.24H GT SCH (21:30)
[2022-02-03] MEDS: INSULIN GLARGINE, 100 UNIT/ML CARTRIDGE SQ SCH (21:31)
[2022-02-03] MEDS: MELATONIN 3 MG TABLET GT SCH (21:33)
[2022-02-04] MEDS: POLYVINYL ALCOHOL 15 ML BOTTLE EACHEYE SCH ×4 (00:25→17:06)
[2022-02-04] MEDS: BLOOD SUGAR DIAGNOSTIC 1 EACH STRIP IN SCH ×4 (00:25→17:22)
[2022-02-04] MEDS: ALBUTEROL FS 2.5 MG/3 ML VIAL.NEB NEB SCH ×4 (00:35→19:30)
[2022-02-04] MEDS: INSULIN REGULAR, HUMAN 100 UNIT/ML 3 ML VIAL SQ SCH ×3 (05:30→17:22)
[2022-02-04 07:46] VITALS: BP 101/55
[2022-02-04] MEDS: CEFEPIME 1 GM in IV D5W 50 ML IV SCH ×2 (08:00→20:58)
[2022-02-04] MEDS: FERROUS SULFATE (325 MG) 325 MG/TAB TABLET GT SCH (09:39)
[2022-02-04] MEDS: ASPIRIN 81 MG TAB.CHEW GT SCH (09:39)
[2022-02-04] MEDS: PROSOURCE / PROSTAT (PYXIS) 30 ML UDC GT SCH ×2 (09:39→17:06)
[2022-02-04] MEDS: VITAMINS A AND D 56.7 GM TUBE TP SCH ×2 (09:40→20:30)
[2022-02-04] MEDS: ASCORBIC ACID 500 MG TABLET GT SCH (09:40)
[2022-02-04] MEDS: PANTOPRAZOLE 40 MG/PACK PACK GT SCH (09:40)
[2022-02-04] MEDS: ZINC SULFATE 220 MG CAPSULE GT SCH (09:40)
[2022-02-04] MEDS: THERAHONEY GEL 1.5 OZ TUBE TP SCH ×2 (09:40→20:30)
[2022-02-04 11:37] LABS: ABG BASE EXCESS 3.6 mmol/L; ABG OXYGEN SATURATION 98.6 % (92.0-98.5); ABG PCO2 38.8 mmHg (35.0-45.0); ABG PH 7.468 (7.350-7.450); ABG PO2 134.3 mmHg (75.0-100.0); COHb 0.3 % (0.5-1.5); MetHb 0.3 % (0.0-1.5); SITE, ABG Right Radial
--- NOTE | 2022-02-04 11:42 | NUR ---
ABG result post vent settings changes relayed to Dr. Colón, gave order to continue with current vent settings.
[2022-02-04] MEDS: GLUCERNA 1.2 1,000 ML BOTTLE GT PRN (13:27)
[2022-02-04 13:59] VITALS: BP 127/68
[2022-02-04 19:37] VITALS: BP 115/63
[2022-02-04] MEDS: ATORVASTATIN 40 MG TABLET GT SCH (21:12)
[2022-02-04] MEDS: TAMSULOSIN 0.4 MG CAP.SR.24H GT SCH (21:12)
[2022-02-04] MEDS: MELATONIN 3 MG TABLET GT SCH (21:12)
[2022-02-04] MEDS: INSULIN GLARGINE, 100 UNIT/ML CARTRIDGE SQ SCH (21:13)
[2022-02-04 23:42] VITALS: BP 127/65
[2022-02-05] MEDS: POLYVINYL ALCOHOL 15 ML BOTTLE EACHEYE SCH ×5 (00:19→23:59)
[2022-02-05] MEDS: BLOOD SUGAR DIAGNOSTIC 1 EACH STRIP IN SCH ×5 (00:19→23:59)
[2022-02-05] MEDS: ALBUTEROL FS 2.5 MG/3 ML VIAL.NEB NEB SCH ×4 (01:58→20:13)
[2022-02-05] MEDS: INSULIN REGULAR, HUMAN 100 UNIT/ML 3 ML VIAL SQ SCH ×3 (05:21→18:12)
[2022-02-05] MEDS: GLUCERNA 1.2 1,000 ML BOTTLE GT PRN (06:53)
[2022-02-05 07:34] VITALS: BP 130/75
[2022-02-05] MEDS: CEFEPIME 1 GM in IV D5W 50 ML IV SCH ×2 (08:31→20:00)
[2022-02-05] MEDS: FERROUS SULFATE (325 MG) 325 MG/TAB TABLET GT SCH (09:00)
[2022-02-05] MEDS: PROSOURCE / PROSTAT (PYXIS) 30 ML UDC GT SCH ×2 (09:00→17:18)
[2022-02-05] MEDS: ZINC SULFATE 220 MG CAPSULE GT SCH (09:00)
[2022-02-05] MEDS: ASCORBIC ACID 500 MG TABLET GT SCH (09:00)
[2022-02-05] MEDS: VITAMINS A AND D 56.7 GM TUBE TP SCH ×2 (09:00→20:44)
[2022-02-05] MEDS: PANTOPRAZOLE 40 MG/PACK PACK GT SCH (09:00)
[2022-02-05] MEDS: ASPIRIN 81 MG TAB.CHEW GT SCH (09:00)
[2022-02-05] MEDS: THERAHONEY GEL 1.5 OZ TUBE TP SCH ×2 (09:00→20:44)
--- NOTE | 2022-02-05 09:00 | NUR ---
Seen and examined by Dr. Colón no new orders.
[2022-02-05 12:27] VITALS: BP 129/68
[2022-02-05 19:48] VITALS: BP 100/63
[2022-02-05] MEDS: TAMSULOSIN 0.4 MG CAP.SR.24H GT SCH (21:17)
[2022-02-05] MEDS: MELATONIN 3 MG TABLET GT SCH (21:18)
[2022-02-05] MEDS: INSULIN GLARGINE, 100 UNIT/ML CARTRIDGE SQ SCH (21:18)
[2022-02-05] MEDS: ATORVASTATIN 40 MG TABLET GT SCH (21:18)
[2022-02-06] MEDS: ALBUTEROL FS 2.5 MG/3 ML VIAL.NEB NEB SCH ×4 (01:48→19:21)
[2022-02-06] MEDS: GLUCERNA 1.2 1,000 ML BOTTLE GT PRN ×2 (04:43→21:12)
[2022-02-06] MEDS: POLYVINYL ALCOHOL 15 ML BOTTLE EACHEYE SCH ×4 (05:15→23:38)
[2022-02-06] MEDS: INSULIN REGULAR, HUMAN 100 UNIT/ML 3 ML VIAL SQ SCH ×3 (05:25→18:00)
[2022-02-06] MEDS: BLOOD SUGAR DIAGNOSTIC 1 EACH STRIP IN SCH ×4 (05:25→23:38)
[2022-02-06 07:47] VITALS: BP 111/60
[2022-02-06] MEDS: CEFEPIME 1 GM in IV D5W 50 ML IV SCH ×2 (09:03→19:50)
[2022-02-06] MEDS: FERROUS SULFATE (325 MG) 325 MG/TAB TABLET GT SCH (09:41)
[2022-02-06] MEDS: PANTOPRAZOLE 40 MG/PACK PACK GT SCH (09:41)
[2022-02-06] MEDS: ASCORBIC ACID 500 MG TABLET GT SCH (09:41)
[2022-02-06] MEDS: ASPIRIN 81 MG TAB.CHEW GT SCH (09:41)
[2022-02-06] MEDS: THERAHONEY GEL 1.5 OZ TUBE TP SCH (09:41)
[2022-02-06] MEDS: ZINC SULFATE 220 MG CAPSULE GT SCH (09:41)
[2022-02-06] MEDS: PROSOURCE / PROSTAT (PYXIS) 30 ML UDC GT SCH ×2 (09:41→17:00)
[2022-02-06] MEDS: VITAMINS A AND D 56.7 GM TUBE TP SCH ×2 (09:42→21:33)
[2022-02-06 13:36] VITALS: BP 125/59
[2022-02-06 20:00] VITALS: BP 114/60
[2022-02-06] MEDS: TAMSULOSIN 0.4 MG CAP.SR.24H GT SCH (21:33)
[2022-02-06] MEDS: ATORVASTATIN 40 MG TABLET GT SCH (21:33)
[2022-02-06] MEDS: MELATONIN 3 MG TABLET GT SCH (21:33)
[2022-02-06] MEDS: INSULIN GLARGINE, 100 UNIT/ML CARTRIDGE SQ SCH (22:27)
--- NOTE | 2022-02-06 23:39 | NUR ---
Blood glucose 166 mg\dl
[2022-02-07] MEDS: ALBUTEROL FS 2.5 MG/3 ML VIAL.NEB NEB SCH ×4 (01:52→20:01)
[2022-02-07] MEDS: BLOOD SUGAR DIAGNOSTIC 1 EACH STRIP IN SCH ×4 (05:39→23:56)
[2022-02-07] MEDS: POLYVINYL ALCOHOL 15 ML BOTTLE EACHEYE SCH ×4 (05:39→23:56)
[2022-02-07] MEDS: INSULIN REGULAR, HUMAN 100 UNIT/ML 3 ML VIAL SQ SCH ×3 (05:40→17:24)
[2022-02-07 07:28] VITALS: BP 102/52
[2022-02-07] MEDS: CEFEPIME 1 GM in IV D5W 50 ML IV SCH ×2 (08:27→20:10)
[2022-02-07] MEDS: ASCORBIC ACID 500 MG TABLET GT SCH (08:52)
[2022-02-07] MEDS: VITAMINS A AND D 56.7 GM TUBE TP SCH ×2 (08:52→21:36)
[2022-02-07] MEDS: PANTOPRAZOLE 40 MG/PACK PACK GT SCH (08:52)
[2022-02-07] MEDS: ASPIRIN 81 MG TAB.CHEW GT SCH (08:52)
[2022-02-07] MEDS: PROSOURCE / PROSTAT (PYXIS) 30 ML UDC GT SCH ×2 (08:52→17:24)
[2022-02-07] MEDS: FERROUS SULFATE (325 MG) 325 MG/TAB TABLET GT SCH (08:52)
[2022-02-07] MEDS: ZINC SULFATE 220 MG CAPSULE GT SCH (08:52)
[2022-02-07 14:09] VITALS: BP 120/59
[2022-02-07] MEDS: GLUCERNA 1.2 1,000 ML BOTTLE GT PRN (17:25)
[2022-02-07 19:01] VITALS: BP 127/66
[2022-02-07] MEDS: ATORVASTATIN 40 MG TABLET GT SCH (21:36)
[2022-02-07] MEDS: TAMSULOSIN 0.4 MG CAP.SR.24H GT SCH (21:36)
[2022-02-07] MEDS: MELATONIN 3 MG TABLET GT SCH (21:36)
[2022-02-07] MEDS: INSULIN GLARGINE, 100 UNIT/ML CARTRIDGE SQ SCH (21:37)
[2022-02-08 00:04] VITALS: BP 114/63
[2022-02-08] MEDS: ALBUTEROL FS 2.5 MG/3 ML VIAL.NEB NEB SCH ×4 (01:11→19:44)
[2022-02-08] MEDS: POLYVINYL ALCOHOL 15 ML BOTTLE EACHEYE SCH ×4 (05:21→23:15)
[2022-02-08] MEDS: INSULIN REGULAR, HUMAN 100 UNIT/ML 3 ML VIAL SQ SCH ×3 (05:21→18:00)
[2022-02-08] MEDS: BLOOD SUGAR DIAGNOSTIC 1 EACH STRIP IN SCH ×4 (05:21→23:15)
[2022-02-08 07:29] VITALS: BP 125/73
[2022-02-08] MEDS: CEFEPIME 1 GM in IV D5W 50 ML IV SCH ×2 (08:25→19:44)
[2022-02-08] MEDS: PANTOPRAZOLE 40 MG/PACK PACK GT SCH (09:00)
[2022-02-08] MEDS: ZINC SULFATE 220 MG CAPSULE GT SCH (09:52)
[2022-02-08] MEDS: PROSOURCE / PROSTAT (PYXIS) 30 ML UDC GT SCH ×2 (09:52→17:00)
[2022-02-08] MEDS: ASPIRIN 81 MG TAB.CHEW GT SCH (09:52)
[2022-02-08] MEDS: FERROUS SULFATE (325 MG) 325 MG/TAB TABLET GT SCH (09:52)
[2022-02-08] MEDS: ASCORBIC ACID 500 MG TABLET GT SCH (09:52)
[2022-02-08] MEDS: VITAMINS A AND D 56.7 GM TUBE TP SCH ×2 (09:52→21:05)
--- NOTE | 2022-02-08 12:06 | NUR ---
Latest Visitation Guidelines & Facility Update: PIERRE informed pt.'s responsible green party, Rosaline via email that, "SW Facility Update: No [facility] employee tested positive for COVID-19 this week. Residents and staff will continue receiving routine testing. We will continue to implement [facility] infection control protocols and continue screening employees before every shift. [facility] continues to follow infection control protocols and screen our residents and staff daily for symptoms". PIERRE also informed family that the visitation guidelines have not changed at this time and notified them that per [facility], when transmission rate lowers to moderate, fully vaccinated and boosted visitors will not need to show proof of negative COVID test.
[2022-02-08 12:22] VITALS: BP 109/54
[2022-02-08] MEDS: GLUCERNA 1.2 1,000 ML BOTTLE GT PRN (12:58)
[2022-02-08 19:28] VITALS: BP 131/67
[2022-02-08] MEDS: INSULIN GLARGINE, 100 UNIT/ML CARTRIDGE SQ SCH (21:05)
[2022-02-08] MEDS: TAMSULOSIN 0.4 MG CAP.SR.24H GT SCH (21:05)
[2022-02-08] MEDS: ATORVASTATIN 40 MG TABLET GT SCH (21:05)
[2022-02-08] MEDS: MELATONIN 3 MG TABLET GT SCH (21:05)
[2022-02-09 00:14] VITALS: BP 114/58
[2022-02-09] MEDS: ALBUTEROL FS 2.5 MG/3 ML VIAL.NEB NEB SCH ×4 (01:09→20:13)
[2022-02-09] MEDS: POLYVINYL ALCOHOL 15 ML BOTTLE EACHEYE SCH ×4 (05:29→23:28)
[2022-02-09] MEDS: BLOOD SUGAR DIAGNOSTIC 1 EACH STRIP IN SCH ×4 (05:29→23:28)
[2022-02-09] MEDS: INSULIN REGULAR, HUMAN 100 UNIT/ML 3 ML VIAL SQ SCH ×3 (05:30→18:08)
[2022-02-09 07:24] VITALS: BP 129/71
[2022-02-09] MEDS: CEFEPIME 1 GM in IV D5W 50 ML IV SCH ×2 (08:27→20:00)
[2022-02-09] MEDS: ASPIRIN 81 MG TAB.CHEW GT SCH (09:27)
[2022-02-09] MEDS: ASCORBIC ACID 500 MG TABLET GT SCH (09:28)
[2022-02-09] MEDS: FERROUS SULFATE (325 MG) 325 MG/TAB TABLET GT SCH (09:28)
[2022-02-09] MEDS: ZINC SULFATE 220 MG CAPSULE GT SCH (09:28)
[2022-02-09] MEDS: PROSOURCE / PROSTAT (PYXIS) 30 ML UDC GT SCH ×2 (09:28→17:06)
[2022-02-09] MEDS: VITAMINS A AND D 56.7 GM TUBE TP SCH ×2 (09:28→20:34)
[2022-02-09] MEDS: PANTOPRAZOLE 40 MG/PACK PACK GT SCH (09:29)
[2022-02-09] MEDS: GLUCERNA 1.2 1,000 ML BOTTLE GT PRN (12:51)
[2022-02-09 13:15] VITALS: BP 130/60
[2022-02-09 19:32] VITALS: BP 124/55
[2022-02-09] MEDS: ATORVASTATIN 40 MG TABLET GT SCH (21:11)
[2022-02-09] MEDS: TAMSULOSIN 0.4 MG CAP.SR.24H GT SCH (21:11)
[2022-02-09] MEDS: MELATONIN 3 MG TABLET GT SCH (21:11)
[2022-02-09] MEDS: INSULIN GLARGINE, 100 UNIT/ML CARTRIDGE SQ SCH (21:11)
[2022-02-10 00:14] VITALS: BP 125/56
[2022-02-10] MEDS: ALBUTEROL FS 2.5 MG/3 ML VIAL.NEB NEB SCH ×4 (01:37→19:59)
[2022-02-10] MEDS: BLOOD SUGAR DIAGNOSTIC 1 EACH STRIP IN SCH ×4 (05:39→23:51)
[2022-02-10] MEDS: POLYVINYL ALCOHOL 15 ML BOTTLE EACHEYE SCH ×4 (05:39→23:51)
[2022-02-10] MEDS: INSULIN REGULAR, HUMAN 100 UNIT/ML 3 ML VIAL SQ SCH ×3 (05:40→17:26)
[2022-02-10 07:32] VITALS: BP 101/54
[2022-02-10] MEDS: CEFEPIME 1 GM in IV D5W 50 ML IV SCH (08:00)
[2022-02-10] MEDS: FERROUS SULFATE (325 MG) 325 MG/TAB TABLET GT SCH (08:07)
[2022-02-10] MEDS: VITAMINS A AND D 56.7 GM TUBE TP SCH ×2 (08:07→21:30)
[2022-02-10] MEDS: PANTOPRAZOLE 40 MG/PACK PACK GT SCH (08:07)
[2022-02-10] MEDS: ASCORBIC ACID 500 MG TABLET GT SCH (08:07)
[2022-02-10] MEDS: ZINC SULFATE 220 MG CAPSULE GT SCH (08:07)
[2022-02-10] MEDS: PROSOURCE / PROSTAT (PYXIS) 30 ML UDC GT SCH ×2 (08:07→16:31)
[2022-02-10] MEDS: ASPIRIN 81 MG TAB.CHEW GT SCH (08:07)
[2022-02-10] MEDS: GLUCERNA 1.2 1,000 ML BOTTLE GT PRN (12:08)
[2022-02-10 13:21] VITALS: BP 115/82
--- NOTE | 2022-02-10 17:27 | NUR ---
BS- 96, Regular insulin 2 units not given, informed, no new order given.
[2022-02-10 19:40] VITALS: BP 112/54
[2022-02-10] MEDS: MELATONIN 3 MG TABLET GT SCH (21:30)
[2022-02-10] MEDS: ATORVASTATIN 40 MG TABLET GT SCH (21:30)
[2022-02-10] MEDS: TAMSULOSIN 0.4 MG CAP.SR.24H GT SCH (21:30)
[2022-02-10] MEDS: INSULIN GLARGINE, 100 UNIT/ML CARTRIDGE SQ SCH (21:31)
[2022-02-11] MEDS: ALBUTEROL FS 2.5 MG/3 ML VIAL.NEB NEB SCH ×4 (01:35→19:40)
[2022-02-11] MEDS: INSULIN REGULAR, HUMAN 100 UNIT/ML 3 ML VIAL SQ SCH ×3 (05:14→17:35)
[2022-02-11] MEDS: BLOOD SUGAR DIAGNOSTIC 1 EACH STRIP IN SCH ×3 (05:14→17:34)
[2022-02-11] MEDS: POLYVINYL ALCOHOL 15 ML BOTTLE EACHEYE SCH ×3 (05:14→17:17)
[2022-02-11 07:27] VITALS: BP 123/60
[2022-02-11] MEDS: PROSOURCE / PROSTAT (PYXIS) 30 ML UDC GT SCH ×2 (09:32→17:17)
[2022-02-11] MEDS: ASPIRIN 81 MG TAB.CHEW GT SCH (09:32)
[2022-02-11] MEDS: FERROUS SULFATE (325 MG) 325 MG/TAB TABLET GT SCH (09:32)
[2022-02-11] MEDS: PANTOPRAZOLE 40 MG/PACK PACK GT SCH (09:33)
[2022-02-11] MEDS: VITAMINS A AND D 56.7 GM TUBE TP SCH ×2 (09:33→21:19)
[2022-02-11] MEDS: ASCORBIC ACID 500 MG TABLET GT SCH (09:33)
[2022-02-11] MEDS: ZINC SULFATE 220 MG CAPSULE GT SCH (09:33)
[2022-02-11 12:50] VITALS: BP 122/64
--- NOTE | 2022-02-11 17:33 | NUR ---
Seen by DIE INSPECTOR Reshma Christine via telemedicine/video call. Received order to place pt on CPAP PS 10 FiO2 30% PEEP+5 tomorrow then do ABG. Notified pt's .
[2022-02-11 20:51] VITALS: BP 126/60
[2022-02-11] MEDS: ATORVASTATIN 40 MG TABLET GT SCH (21:19)
[2022-02-11] MEDS: TAMSULOSIN 0.4 MG CAP.SR.24H GT SCH (21:19)
[2022-02-11] MEDS: MELATONIN 3 MG TABLET GT SCH (21:20)
[2022-02-11] MEDS: INSULIN GLARGINE, 100 UNIT/ML CARTRIDGE SQ SCH (21:20)
[2022-02-12] MEDS: BLOOD SUGAR DIAGNOSTIC 1 EACH STRIP IN SCH ×4 (00:03→17:35)
[2022-02-12] MEDS: POLYVINYL ALCOHOL 15 ML BOTTLE EACHEYE SCH ×4 (00:03→17:27)
[2022-02-12] MEDS: ALBUTEROL FS 2.5 MG/3 ML VIAL.NEB NEB SCH ×4 (02:09→19:57)
[2022-02-12] MEDS: INSULIN REGULAR, HUMAN 100 UNIT/ML 3 ML VIAL SQ SCH ×3 (05:37→17:36)
[2022-02-12 07:39] VITALS: BP 104/57
[2022-02-12] MEDS: ASPIRIN 81 MG TAB.CHEW GT SCH (09:06)
[2022-02-12] MEDS: VITAMINS A AND D 56.7 GM TUBE TP SCH ×2 (09:06→21:00)
[2022-02-12] MEDS: FERROUS SULFATE (325 MG) 325 MG/TAB TABLET GT SCH (09:06)
[2022-02-12] MEDS: ASCORBIC ACID 500 MG TABLET GT SCH (09:06)
[2022-02-12] MEDS: PANTOPRAZOLE 40 MG/PACK PACK GT SCH (09:06)
[2022-02-12] MEDS: PROSOURCE / PROSTAT (PYXIS) 30 ML UDC GT SCH ×2 (09:06→16:39)
[2022-02-12] MEDS: ZINC SULFATE 220 MG CAPSULE GT SCH (09:06)
--- NOTE | 2022-02-12 11:45 | NUR ---
Pt was placed on CPAP PS 10 FiO2 30% PEEP +5. Pt tolerating it well. ABG result relayed to Dr Colón. He said to continue CPAP as tolerated. Also relayed ABG to DECAL APPLIER Reshma Christine. She said ABG looks good and to continue CPAP.
[2022-02-12 13:43] VITALS: BP 111/61
--- NOTE | 2022-02-12 16:00 | NUR ---
Called pt's Rosaline and informed her that pt is tolerating CPAP well. Rosaline expressed appreciation.
[2022-02-12] MEDS: GLUCERNA 1.2 1,000 ML BOTTLE GT PRN (16:48)
[2022-02-12 20:34] VITALS: BP 139/64
--- NOTE | 2022-02-12 21:00 | NUR ---
RN NOTES On CPAP PS 10 FiO2 30% PEEP +5, tolerating well. Will continue to monitor.
[2022-02-12] MEDS: MELATONIN 3 MG TABLET GT SCH (22:03)
[2022-02-12] MEDS: ATORVASTATIN 40 MG TABLET GT SCH (22:05)
[2022-02-12] MEDS: TAMSULOSIN 0.4 MG CAP.SR.24H GT SCH (22:05)
[2022-02-12] MEDS: INSULIN GLARGINE, 100 UNIT/ML CARTRIDGE SQ SCH (22:11)
[2022-02-13] MEDS: BLOOD SUGAR DIAGNOSTIC 1 EACH STRIP IN SCH ×5 (00:55→23:41)
[2022-02-13] MEDS: POLYVINYL ALCOHOL 15 ML BOTTLE EACHEYE SCH ×5 (00:55→23:41)
[2022-02-13] MEDS: ALBUTEROL FS 2.5 MG/3 ML VIAL.NEB NEB SCH ×4 (02:02→20:14)
[2022-02-13] MEDS: INSULIN REGULAR, HUMAN 100 UNIT/ML 3 ML VIAL SQ SCH ×3 (05:42→17:44)
[2022-02-13 07:27] VITALS: BP 103/55
[2022-02-13] MEDS: FERROUS SULFATE (325 MG) 325 MG/TAB TABLET GT SCH (09:02)
[2022-02-13] MEDS: ASCORBIC ACID 500 MG TABLET GT SCH (09:02)
[2022-02-13] MEDS: PANTOPRAZOLE 40 MG/PACK PACK GT SCH (09:02)
[2022-02-13] MEDS: ASPIRIN 81 MG TAB.CHEW GT SCH (09:02)
[2022-02-13] MEDS: PROSOURCE / PROSTAT (PYXIS) 30 ML UDC GT SCH ×2 (09:02→17:38)
[2022-02-13] MEDS: ZINC SULFATE 220 MG CAPSULE GT SCH (09:03)
[2022-02-13] MEDS: VITAMINS A AND D 56.7 GM TUBE TP SCH ×2 (09:03→21:34)
[2022-02-13 11:52] VITALS: BP 128/65
[2022-02-13 20:17] VITALS: BP 121/64
[2022-02-13 20:41] VITALS: BP 121/64
[2022-02-13] MEDS: TAMSULOSIN 0.4 MG CAP.SR.24H GT SCH (21:34)
[2022-02-13] MEDS: MELATONIN 3 MG TABLET GT SCH (21:34)
[2022-02-13] MEDS: ATORVASTATIN 40 MG TABLET GT SCH (21:34)
[2022-02-13] MEDS: INSULIN GLARGINE, 100 UNIT/ML CARTRIDGE SQ SCH (21:36)
[2022-02-13] MEDS: GLUCERNA 1.2 1,000 ML BOTTLE GT PRN (23:41)
[2022-02-14] MEDS: ALBUTEROL FS 2.5 MG/3 ML VIAL.NEB NEB SCH ×4 (01:40→20:21)
[2022-02-14] MEDS: POLYVINYL ALCOHOL 15 ML BOTTLE EACHEYE SCH ×4 (05:29→23:10)
[2022-02-14] MEDS: BLOOD SUGAR DIAGNOSTIC 1 EACH STRIP IN SCH ×4 (05:29→23:10)
[2022-02-14] MEDS: INSULIN REGULAR, HUMAN 100 UNIT/ML 3 ML VIAL SQ SCH ×3 (05:30→17:44)
[2022-02-14 07:17] VITALS: BP 113/53
[2022-02-14] MEDS: FERROUS SULFATE (325 MG) 325 MG/TAB TABLET GT SCH (08:35)
[2022-02-14] MEDS: PROSOURCE / PROSTAT (PYXIS) 30 ML UDC GT SCH ×2 (08:35→17:23)
[2022-02-14] MEDS: PANTOPRAZOLE 40 MG/PACK PACK GT SCH (08:35)
[2022-02-14] MEDS: ASCORBIC ACID 500 MG TABLET GT SCH (08:35)
[2022-02-14] MEDS: VITAMINS A AND D 56.7 GM TUBE TP SCH ×2 (08:35→21:10)
[2022-02-14] MEDS: ASPIRIN 81 MG TAB.CHEW GT SCH (08:35)
[2022-02-14] MEDS: ZINC SULFATE 220 MG CAPSULE GT SCH (08:35)
[2022-02-14] MEDS: GLUCERNA 1.2 1,000 ML BOTTLE GT PRN (12:18)
[2022-02-14 12:28] VITALS: BP 120/56
--- NOTE | 2022-02-14 17:45 | NUR ---
6pm regular insulin dose held d/t BS 95.
[2022-02-14 19:48] VITALS: BP 137/72
[2022-02-14] MEDS: TAMSULOSIN 0.4 MG CAP.SR.24H GT SCH (21:10)
[2022-02-14] MEDS: INSULIN GLARGINE, 100 UNIT/ML CARTRIDGE SQ SCH (21:11)
[2022-02-14] MEDS: ATORVASTATIN 40 MG TABLET GT SCH (21:11)
[2022-02-14] MEDS: MELATONIN 3 MG TABLET GT SCH (21:11)
[2022-02-15] MEDS: ALBUTEROL FS 2.5 MG/3 ML VIAL.NEB NEB SCH ×4 (02:09→20:09)
[2022-02-15] MEDS: POLYVINYL ALCOHOL 15 ML BOTTLE EACHEYE SCH ×4 (05:15→23:10)
[2022-02-15] MEDS: BLOOD SUGAR DIAGNOSTIC 1 EACH STRIP IN SCH ×4 (05:15→23:10)
[2022-02-15] MEDS: INSULIN REGULAR, HUMAN 100 UNIT/ML 3 ML VIAL SQ SCH ×3 (05:16→17:22)
[2022-02-15] MEDS: GLUCERNA 1.2 1,000 ML BOTTLE GT PRN (05:16)
--- NOTE | 2022-02-15 06:49 | NUR ---
Pt had episode of tracheal bleeding last night- , Rt provided cold saline lavage, pt remained stable and afebrile with no s/sx of resp distress noted. This morning no more tracheal bleeding noted. All due meds, txs and care tolerated well by pt. Safety and comfort measures provided. Will endorse care and monitoring to am oncoming nurse.
[2022-02-15 07:38] VITALS: BP 119/66
[2022-02-15] MEDS: PROSOURCE / PROSTAT (PYXIS) 30 ML UDC GT SCH ×2 (09:00→17:21)
[2022-02-15] MEDS: VITAMINS A AND D 56.7 GM TUBE TP SCH ×2 (09:00→20:06)
[2022-02-15] MEDS: ZINC SULFATE 220 MG CAPSULE GT SCH (09:00)
[2022-02-15] MEDS: PANTOPRAZOLE 40 MG/PACK PACK GT SCH (09:00)
[2022-02-15] MEDS: ASCORBIC ACID 500 MG TABLET GT SCH (09:00)
[2022-02-15] MEDS: FERROUS SULFATE (325 MG) 325 MG/TAB TABLET GT SCH (09:00)
[2022-02-15] MEDS: ASPIRIN 81 MG TAB.CHEW GT SCH (09:00)
--- NOTE | 2022-02-15 10:13 | NUR ---
Dr. Colón notified that patient is having tracheal bleeding in moderate amount. Ice lavaged done with slight improvement. Patient s not on any anticoagulant medication, but on blood thinner Aspirin. Dr. Colón ordered CBC for now. Will relay when available.
[2022-02-15 10:57] LABS: BASOPHILS # (AUTO) 0.1 K/uL (0.0-0.2); BASOPHILS % (AUTO) 1.3 % (0.0-2.0); HEMATOCRIT 27 % (39-51); LYMPHOCYTES # (AUTO) 1.1 K/uL (0.8-4.8); LYMPHOCYTES % (AUTO) 12.8 % (20.0-44.0); MEAN CORPUSCULAR HGB CONC 34 g/dl (31.0-36.0); MEAN CORPUSCULAR VOLUME 83 fL (80-96); MONOCYTES # (AUTO) 0.8 K/uL (0.1-1.30); MONOCYTES % (AUTO) 10.3 % (2.0-12.0); NEUTROPHILS # (AUTO) 6.1 K/uL (1.8-8.9); NEUTROPHILS % (AUTO) 73.6 % (43.0-81.0); PLATELET COUNT (AUTO) 314 K/uL (150-450); RED BLOOD CELL COUNT(AUTO) 3.22 MIL/uL (4.5-6.0); WHITE BLOOD COUNT (AUTO) 8.2 K/uL (4.3-11.0)
[2022-02-15 12:18] VITALS: BP 158/84
--- NOTE | 2022-02-15 12:30 | NUR ---
Relayed CBC result, Hbg 9.0, patient has no history of GI bleeding, no further episode of tracheal bleeding during suctioning. Dr. Colón ordered to hold Aspirin x 5 days. Message left to family.
[2022-02-15 19:50] VITALS: BP 117/54
[2022-02-15] MEDS: TAMSULOSIN 0.4 MG CAP.SR.24H GT SCH (21:04)
[2022-02-15] MEDS: ATORVASTATIN 40 MG TABLET GT SCH (21:04)
[2022-02-15] MEDS: MELATONIN 3 MG TABLET GT SCH (21:05)
[2022-02-15] MEDS: INSULIN GLARGINE, 100 UNIT/ML CARTRIDGE SQ SCH (21:05)
[2022-02-16] MEDS: GLUCERNA 1.2 1,000 ML BOTTLE GT PRN ×2 (00:56→14:21)
[2022-02-16] MEDS: ALBUTEROL FS 2.5 MG/3 ML VIAL.NEB NEB SCH ×4 (01:20→19:12)
[2022-02-16 02:16] VITALS: BP 113/69
--- NOTE | 2022-02-16 03:00 | NUR ---
During rounds patient noted with increased respiration and HR,suctioned with small amount of secretions. RT made aware and placed back to vent settings AC 12 TV 400 Fi02 30% Peep +5. Will continue to monitor.
--- NOTE | 2022-02-16 03:11 | NUR ---
RT NOTE PLACED BACK ON AC MODE D/T INCREASED RR AND HR. SKEIN BANDER AWARE. WILL CONTINUE TO MONITOR T/O SHIFT
[2022-02-16] MEDS: ACETAMINOPHEN 650 MG/20 ML UDC- SA PATIENTS-PAIN ONLY GT PRN (03:28)
--- NOTE | 2022-02-16 03:28 | NUR ---
PRN Tylenol given via GT for mild pain- m/b facial grimacing, increased RR - 26, HR of 90's. Repositioned pt, and kept pt clean and dry. Cont to monitor.
[2022-02-16] MEDS: BLOOD SUGAR DIAGNOSTIC 1 EACH STRIP IN SCH ×4 (05:31→23:17)
[2022-02-16] MEDS: POLYVINYL ALCOHOL 15 ML BOTTLE EACHEYE SCH ×4 (05:31→23:17)
[2022-02-16] MEDS: INSULIN REGULAR, HUMAN 100 UNIT/ML 3 ML VIAL SQ SCH ×3 (05:32→17:17)
--- NOTE | 2022-02-16 06:26 | NUR ---
Patient respiration and HR improved while on AC mode. Will continue to monitor and will endorse to oncoming shift.
[2022-02-16 07:29] VITALS: BP 126/62
--- NOTE | 2022-02-16 09:38 | NUR ---
Dr. Colón was notified of episode of increased respiratory rate last night wherein patient was placed on AC mode. Dr. Colón said to keep him on AC for now. Patient currently on the following ventilator setting AC12 TV 400 Fi02 30% Peep +5, well tolerated.
[2022-02-16] MEDS: ZINC SULFATE 220 MG CAPSULE GT SCH (09:47)
[2022-02-16] MEDS: FERROUS SULFATE (325 MG) 325 MG/TAB TABLET GT SCH (09:47)
[2022-02-16] MEDS: VITAMINS A AND D 56.7 GM TUBE TP SCH ×2 (09:47→20:47)
[2022-02-16] MEDS: PROSOURCE / PROSTAT (PYXIS) 30 ML UDC GT SCH ×2 (09:47→17:16)
[2022-02-16] MEDS: PANTOPRAZOLE 40 MG/PACK PACK GT SCH (09:47)
[2022-02-16] MEDS: ASCORBIC ACID 500 MG TABLET GT SCH (09:47)
[2022-02-16 12:06] VITALS: BP 108/53
[2022-02-16 19:40] VITALS: BP 134/73
[2022-02-16] MEDS: TAMSULOSIN 0.4 MG CAP.SR.24H GT SCH (21:04)
[2022-02-16] MEDS: INSULIN GLARGINE, 100 UNIT/ML CARTRIDGE SQ SCH (21:04)
[2022-02-16] MEDS: ATORVASTATIN 40 MG TABLET GT SCH (21:04)
[2022-02-16] MEDS: MELATONIN 3 MG TABLET GT SCH (21:04)
[2022-02-17 01:24] VITALS: BP 121/62
[2022-02-17] MEDS: ALBUTEROL FS 2.5 MG/3 ML VIAL.NEB NEB SCH ×4 (01:27→18:58)
[2022-02-17] MEDS: POLYVINYL ALCOHOL 15 ML BOTTLE EACHEYE SCH ×4 (05:35→23:32)
[2022-02-17] MEDS: BLOOD SUGAR DIAGNOSTIC 1 EACH STRIP IN SCH ×4 (05:35→23:32)
[2022-02-17] MEDS: INSULIN REGULAR, HUMAN 100 UNIT/ML 3 ML VIAL SQ SCH ×3 (05:36→17:50)
[2022-02-17 07:19] VITALS: BP 121/62
[2022-02-17] MEDS: ZINC SULFATE 220 MG CAPSULE GT SCH (09:00)
[2022-02-17] MEDS: PANTOPRAZOLE 40 MG/PACK PACK GT SCH (09:00)
[2022-02-17] MEDS: PROSOURCE / PROSTAT (PYXIS) 30 ML UDC GT SCH ×2 (09:00→17:49)
[2022-02-17] MEDS: VITAMINS A AND D 56.7 GM TUBE TP SCH ×2 (09:00→21:49)
[2022-02-17] MEDS: ASCORBIC ACID 500 MG TABLET GT SCH (09:00)
[2022-02-17] MEDS: FERROUS SULFATE (325 MG) 325 MG/TAB TABLET GT SCH (09:00)
[2022-02-17 12:01] VITALS: BP 119/65
--- NOTE | 2022-02-17 17:52 | NUR ---
Regular insulin 2units SQ not given B/S is low- 94 mg./dl. CN made aware.
[2022-02-17] MEDS: GLUCERNA 1.2 1,000 ML BOTTLE GT PRN (18:38)
[2022-02-17] MEDS: MELATONIN 3 MG TABLET GT SCH (21:49)
[2022-02-17] MEDS: TAMSULOSIN 0.4 MG CAP.SR.24H GT SCH (21:49)
[2022-02-17] MEDS: ATORVASTATIN 40 MG TABLET GT SCH (21:49)
[2022-02-17] MEDS: INSULIN GLARGINE, 100 UNIT/ML CARTRIDGE SQ SCH (21:50)
[2022-02-18] MEDS: ALBUTEROL FS 2.5 MG/3 ML VIAL.NEB NEB SCH ×4 (00:34→18:56)
[2022-02-18] MEDS: POLYVINYL ALCOHOL 15 ML BOTTLE EACHEYE SCH ×4 (05:44→23:19)
[2022-02-18] MEDS: BLOOD SUGAR DIAGNOSTIC 1 EACH STRIP IN SCH ×4 (05:44→23:19)
[2022-02-18] MEDS: INSULIN REGULAR, HUMAN 100 UNIT/ML 3 ML VIAL SQ SCH ×3 (05:45→18:09)
[2022-02-18 07:25] VITALS: BP 121/63
[2022-02-18] MEDS: PANTOPRAZOLE 40 MG/PACK PACK GT SCH (09:00)
[2022-02-18] MEDS: VITAMINS A AND D 56.7 GM TUBE TP SCH ×2 (09:00→21:40)
[2022-02-18] MEDS: ASCORBIC ACID 500 MG TABLET GT SCH (09:00)
[2022-02-18] MEDS: FERROUS SULFATE (325 MG) 325 MG/TAB TABLET GT SCH (09:00)
[2022-02-18] MEDS: PROSOURCE / PROSTAT (PYXIS) 30 ML UDC GT SCH ×2 (09:00→17:36)
[2022-02-18] MEDS: ZINC SULFATE 220 MG CAPSULE GT SCH (09:00)
[2022-02-18 12:44] VITALS: BP 117/69
[2022-02-18] MEDS: GLUCERNA 1.2 1,000 ML BOTTLE GT PRN (15:36)
--- NOTE | 2022-02-18 19:00 | NUR ---
Seen by MACHINE EGG WASHER Reshma Christine. She said to try placing pt on CPAP again tomorrow.
[2022-02-18 20:00] VITALS: BP 100/68
[2022-02-18] MEDS: ATORVASTATIN 40 MG TABLET GT SCH (21:40)
[2022-02-18] MEDS: TAMSULOSIN 0.4 MG CAP.SR.24H GT SCH (21:40)
[2022-02-18] MEDS: MELATONIN 3 MG TABLET GT SCH (21:40)
[2022-02-18] MEDS: INSULIN GLARGINE, 100 UNIT/ML CARTRIDGE SQ SCH (21:58)
[2022-02-19] MEDS: ALBUTEROL FS 2.5 MG/3 ML VIAL.NEB NEB SCH ×4 (00:40→20:18)
[2022-02-19] MEDS: POLYVINYL ALCOHOL 15 ML BOTTLE EACHEYE SCH ×4 (05:17→23:36)
[2022-02-19] MEDS: BLOOD SUGAR DIAGNOSTIC 1 EACH STRIP IN SCH ×4 (05:17→23:36)
[2022-02-19] MEDS: INSULIN REGULAR, HUMAN 100 UNIT/ML 3 ML VIAL SQ SCH ×3 (05:18→17:49)
[2022-02-19 07:30] VITALS: BP 100/54
[2022-02-19] MEDS: ASCORBIC ACID 500 MG TABLET GT SCH (09:00)
[2022-02-19] MEDS: PANTOPRAZOLE 40 MG/PACK PACK GT SCH (09:00)
[2022-02-19] MEDS: VITAMINS A AND D 56.7 GM TUBE TP SCH ×2 (09:00→21:28)
[2022-02-19] MEDS: FERROUS SULFATE (325 MG) 325 MG/TAB TABLET GT SCH (09:00)
[2022-02-19] MEDS: PROSOURCE / PROSTAT (PYXIS) 30 ML UDC GT SCH ×2 (09:00→16:31)
[2022-02-19] MEDS: ZINC SULFATE 220 MG CAPSULE GT SCH (09:00)
--- NOTE | 2022-02-19 10:00 | NUR ---
Seen and examined by Dr. Colón, informed MD that patient will go on CPAP today but no ABG was ordered. He said to do ABG 2 hours after vent change. RT informed. [facility] and taken to activity room for activities.
--- NOTE | 2022-02-19 11:16 | NUR ---
Family Invite to IDT: PIERRE emailed the pt.'s , Rosaline inviting them to participate in 02/22/2022 IDT Meeting. PIERRE will follow up accordingly.
--- NOTE | 2022-02-19 11:30 | NUR ---
PT WAS PUT ON CPAP PER DR CANCHOLA. CPAP 30% +5 PSV 10. PT TOLERATING VENT CHANGES ABG TO FOLLOW. CHARGE NURSE AGATHA ROCHAIED Addendum: 02/19/22 at 1239 by SHELTON MARION RT Amended: Links added.
[2022-02-19] MEDS: GLUCERNA 1.2 1,000 ML BOTTLE GT PRN (13:02)
[2022-02-19 13:06] VITALS: BP 104/64
[2022-02-19 14:13] LABS: ABG BASE EXCESS 3.2 mmol/L; ABG OXYGEN SATURATION 98.6 % (92.0-98.5); ABG PCO2 33.6 mmHg (35.0-45.0); ABG PH 7.508 (7.350-7.450); ABG PO2 128.7 mmHg (75.0-100.0); AaDO2 45.7 mmHg; COHb 0.3 % (0.5-1.5); MetHb 0.2 % (0.0-1.5); O2Hb 98.1 % (94.0-97.0); SITE, ABG Right Radial
--- NOTE | 2022-02-19 15:30 | NUR ---
RT reported ABG result to Dr. Colón, patient on FiO2 of 30% when specimen was taken. No changes was made in the vent setting, patient tolerating CPAP. MD said to titrate O2 to keep O2 sat above 92%. RT titrated O2 down to 28%, saturation above 97%.
--- NOTE | 2022-02-19 16:30 | NUR ---
Resident's Rosaline visited, gave an updated of patient's condition. including episode of increase RR over the weekend which led patient being placed on AC mode in the ventilator. Patient also had an episode of tracheal bleeding, none noted at this time.
[2022-02-19 20:27] VITALS: BP 114/63
[2022-02-19] MEDS: ATORVASTATIN 40 MG TABLET GT SCH (21:28)
[2022-02-19] MEDS: MELATONIN 3 MG TABLET GT SCH (21:28)
[2022-02-19] MEDS: TAMSULOSIN 0.4 MG CAP.SR.24H GT SCH (21:28)
[2022-02-19] MEDS: INSULIN GLARGINE, 100 UNIT/ML CARTRIDGE SQ SCH (21:29)
[2022-02-20] MEDS: ALBUTEROL FS 2.5 MG/3 ML VIAL.NEB NEB SCH ×4 (01:51→20:14)
[2022-02-20] MEDS: POLYVINYL ALCOHOL 15 ML BOTTLE EACHEYE SCH ×4 (05:29→23:26)
[2022-02-20] MEDS: BLOOD SUGAR DIAGNOSTIC 1 EACH STRIP IN SCH ×4 (05:29→23:26)
[2022-02-20] MEDS: INSULIN REGULAR, HUMAN 100 UNIT/ML 3 ML VIAL SQ SCH ×2 (05:30→12:00)
[2022-02-20 07:59] VITALS: BP 92/53
[2022-02-20] MEDS: GLUCERNA 1.2 1,000 ML BOTTLE GT PRN (09:53)
[2022-02-20] MEDS: ZINC SULFATE 220 MG CAPSULE GT SCH (09:56)
[2022-02-20] MEDS: PROSOURCE / PROSTAT (PYXIS) 30 ML UDC GT SCH ×2 (09:56→17:41)
[2022-02-20] MEDS: ASCORBIC ACID 500 MG TABLET GT SCH (09:56)
[2022-02-20] MEDS: VITAMINS A AND D 56.7 GM TUBE TP SCH ×2 (09:56→21:57)
[2022-02-20] MEDS: FERROUS SULFATE (325 MG) 325 MG/TAB TABLET GT SCH (09:56)
[2022-02-20] MEDS: PANTOPRAZOLE 40 MG/PACK PACK GT SCH (09:56)
[2022-02-20 12:24] VITALS: BP 109/64
[2022-02-20 19:52] VITALS: BP 115/72
[2022-02-20] MEDS: MELATONIN 3 MG TABLET GT SCH (21:57)
[2022-02-20] MEDS: TAMSULOSIN 0.4 MG CAP.SR.24H GT SCH (21:57)
[2022-02-20] MEDS: ATORVASTATIN 40 MG TABLET GT SCH (21:57)
[2022-02-20] MEDS: INSULIN GLARGINE, 100 UNIT/ML CARTRIDGE SQ SCH (21:58)
[2022-02-21 00:34] VITALS: BP 132/64
[2022-02-21] MEDS: ALBUTEROL FS 2.5 MG/3 ML VIAL.NEB NEB SCH ×4 (01:44→20:13)
[2022-02-21] MEDS: GLUCERNA 1.2 1,000 ML BOTTLE GT PRN ×2 (05:27→20:29)
[2022-02-21] MEDS: INSULIN REGULAR, HUMAN 100 UNIT/ML 3 ML VIAL SQ SCH ×3 (05:27→17:31)
[2022-02-21] MEDS: BLOOD SUGAR DIAGNOSTIC 1 EACH STRIP IN SCH ×4 (05:46→23:51)
[2022-02-21] MEDS: POLYVINYL ALCOHOL 15 ML BOTTLE EACHEYE SCH ×4 (05:46→23:51)
[2022-02-21 07:38] VITALS: BP 119/72
[2022-02-21] MEDS: ASPIRIN 81 MG TAB.CHEW GT SCH (08:18)
[2022-02-21] MEDS: ZINC SULFATE 220 MG CAPSULE GT SCH (08:18)
[2022-02-21] MEDS: VITAMINS A AND D 56.7 GM TUBE TP SCH ×2 (08:18→20:29)
[2022-02-21] MEDS: ASCORBIC ACID 500 MG TABLET GT SCH (08:18)
[2022-02-21] MEDS: PANTOPRAZOLE 40 MG/PACK PACK GT SCH (08:18)
[2022-02-21] MEDS: PROSOURCE / PROSTAT (PYXIS) 30 ML UDC GT SCH ×2 (08:18→17:30)
[2022-02-21] MEDS: FERROUS SULFATE (325 MG) 325 MG/TAB TABLET GT SCH (08:18)
[2022-02-21 12:32] VITALS: BP 125/64
[2022-02-21 19:50] VITALS: BP 121/64
[2022-02-21] MEDS: INSULIN GLARGINE, 100 UNIT/ML CARTRIDGE SQ SCH (21:14)
[2022-02-21] MEDS: MELATONIN 3 MG TABLET GT SCH (21:14)
[2022-02-21] MEDS: ATORVASTATIN 40 MG TABLET GT SCH (21:14)
[2022-02-21] MEDS: TAMSULOSIN 0.4 MG CAP.SR.24H GT SCH (21:14)
[2022-02-22 00:06] VITALS: BP 127/75
[2022-02-22] MEDS: ALBUTEROL FS 2.5 MG/3 ML VIAL.NEB NEB SCH ×4 (02:04→20:25)
[2022-02-22] MEDS: POLYVINYL ALCOHOL 15 ML BOTTLE EACHEYE SCH ×4 (05:20→23:26)
[2022-02-22] MEDS: BLOOD SUGAR DIAGNOSTIC 1 EACH STRIP IN SCH ×4 (05:38→23:26)
[2022-02-22] MEDS: INSULIN REGULAR, HUMAN 100 UNIT/ML 3 ML VIAL SQ SCH ×3 (05:39→17:48)
[2022-02-22] MEDS: ZINC SULFATE 220 MG CAPSULE GT SCH (09:46)
[2022-02-22] MEDS: ASCORBIC ACID 500 MG TABLET GT SCH (09:46)
[2022-02-22] MEDS: VITAMINS A AND D 56.7 GM TUBE TP SCH ×2 (09:46→20:35)
[2022-02-22] MEDS: PANTOPRAZOLE 40 MG/PACK PACK GT SCH (09:46)
[2022-02-22] MEDS: FERROUS SULFATE (325 MG) 325 MG/TAB TABLET GT SCH (09:46)
[2022-02-22] MEDS: ASPIRIN 81 MG TAB.CHEW GT SCH (09:46)
[2022-02-22] MEDS: PROSOURCE / PROSTAT (PYXIS) 30 ML UDC GT SCH ×2 (09:46→17:14)
--- NOTE | 2022-02-22 10:20 | NUR ---
Seen by Dr Mack. He ordered to resume Lovenox 40 mg SC daily for DVT prophylaxis. Notified pt's .
[2022-02-22] MEDS: ENOXAPARIN SODIUM 40 MG/0.4 ML DISP.SYRIN SQ SCH (11:00)
--- NOTE | 2022-02-22 15:04 | NUR ---
INTERDISCIPLINARY PLAN OF CARE CONFERENCE took place today. The patients , Rosaline [phone] Colón and Interdisciplinary team discussed the plan of care in detail. Current orders as well as treatments and medications were reviewed.
[2022-02-22] MEDS: GLUCERNA 1.2 1,000 ML BOTTLE GT PRN (17:15)
--- NOTE | 2022-02-22 19:02 | NUR ---
Notified Dr Mack that blood sugar was 57. Pt was given 8 oz of orange juice. Blood sugar improved to 147.
[2022-02-22 19:44] VITALS: BP 145/81
[2022-02-22] MEDS: TAMSULOSIN 0.4 MG CAP.SR.24H GT SCH (21:04)
[2022-02-22] MEDS: ATORVASTATIN 40 MG TABLET GT SCH (21:04)
[2022-02-22] MEDS: INSULIN GLARGINE, 100 UNIT/ML CARTRIDGE SQ SCH (21:04)
[2022-02-22] MEDS: MELATONIN 3 MG TABLET GT SCH (21:04)
[2022-02-23 00:41] VITALS: BP 117/68
[2022-02-23] MEDS: ALBUTEROL FS 2.5 MG/3 ML VIAL.NEB NEB SCH ×4 (01:43→20:16)
[2022-02-23] MEDS: POLYVINYL ALCOHOL 15 ML BOTTLE EACHEYE SCH ×4 (05:12→23:13)
[2022-02-23] MEDS: BLOOD SUGAR DIAGNOSTIC 1 EACH STRIP IN SCH ×4 (05:28→23:13)
[2022-02-23] MEDS: INSULIN REGULAR, HUMAN 100 UNIT/ML 3 ML VIAL SQ SCH ×3 (05:28→18:10)
--- NOTE | 2022-02-23 06:22 | NUR ---
PATIENT RECEIVED ON TRACH TO VENT WITH SETTINGS OF CPAP 5, PS 10, 30%. SUCTIONED WITH LAVAGE FOR MINIMAL, THIN, YELLOW SECRETIONS. GIVEN IN-LINE TREATMENTS WITH NO ADVERSE REACTIONS. AMBU BAG AT BEDSIDE. VENT AND PULSE OXIMETER ALARMS AUDIBLE AND VISIBLE. TRACH CARE DONE. VENT PLUGGED INTO RED OUTLET. Addendum: 02/23/22 at 0622 by GIANNA ARRINGTON RT Amended: Links added.
[2022-02-23 07:30] VITALS: BP 117/68
[2022-02-23] MEDS: ENOXAPARIN SODIUM 40 MG/0.4 ML DISP.SYRIN SQ SCH (09:00)
[2022-02-23] MEDS: ZINC SULFATE 220 MG CAPSULE GT SCH (09:46)
[2022-02-23] MEDS: PROSOURCE / PROSTAT (PYXIS) 30 ML UDC GT SCH ×2 (09:46→17:00)
[2022-02-23] MEDS: PANTOPRAZOLE 40 MG/PACK PACK GT SCH (09:46)
[2022-02-23] MEDS: ASCORBIC ACID 500 MG TABLET GT SCH (09:46)
[2022-02-23] MEDS: FERROUS SULFATE (325 MG) 325 MG/TAB TABLET GT SCH (09:46)
[2022-02-23] MEDS: ASPIRIN 81 MG TAB.CHEW GT SCH (09:46)
[2022-02-23] MEDS: VITAMINS A AND D 56.7 GM TUBE TP SCH ×2 (09:47→20:17)
[2022-02-23 12:49] VITALS: BP 101/53
[2022-02-23] MEDS: GLUCERNA 1.2 1,000 ML BOTTLE GT PRN (14:42)
[2022-02-23 19:29] VITALS: BP 114/70
[2022-02-23] MEDS: TAMSULOSIN 0.4 MG CAP.SR.24H GT SCH (21:19)
[2022-02-23] MEDS: INSULIN GLARGINE, 100 UNIT/ML CARTRIDGE SQ SCH (21:19)
[2022-02-23] MEDS: MELATONIN 3 MG TABLET GT SCH (21:19)
[2022-02-23] MEDS: ATORVASTATIN 40 MG TABLET GT SCH (21:19)
[2022-02-24 00:18] VITALS: BP 117/71
[2022-02-24] MEDS: ALBUTEROL FS 2.5 MG/3 ML VIAL.NEB NEB SCH ×4 (01:55→20:13)
[2022-02-24] MEDS: POLYVINYL ALCOHOL 15 ML BOTTLE EACHEYE SCH ×3 (05:02→17:52)
[2022-02-24] MEDS: BLOOD SUGAR DIAGNOSTIC 1 EACH STRIP IN SCH ×3 (05:23→17:52)
[2022-02-24] MEDS: INSULIN REGULAR, HUMAN 100 UNIT/ML 3 ML VIAL SQ SCH ×3 (05:23→17:54)
[2022-02-24 07:39] VITALS: BP 111/62
[2022-02-24] MEDS: ENOXAPARIN SODIUM 40 MG/0.4 ML DISP.SYRIN SQ SCH (09:00)
[2022-02-24] MEDS: PANTOPRAZOLE 40 MG/PACK PACK GT SCH (09:00)
[2022-02-24] MEDS: PROSOURCE / PROSTAT (PYXIS) 30 ML UDC GT SCH ×2 (09:00→17:52)
[2022-02-24] MEDS: VITAMINS A AND D 56.7 GM TUBE TP SCH ×2 (09:00→21:23)
[2022-02-24] MEDS: ASCORBIC ACID 500 MG TABLET GT SCH (09:00)
[2022-02-24] MEDS: FERROUS SULFATE (325 MG) 325 MG/TAB TABLET GT SCH (09:00)
[2022-02-24] MEDS: ZINC SULFATE 220 MG CAPSULE GT SCH (09:00)
[2022-02-24] MEDS: ASPIRIN 81 MG TAB.CHEW GT SCH (09:00)
[2022-02-24 13:39] VITALS: BP 111/57
[2022-02-24 20:26] VITALS: BP 122/62
[2022-02-24] MEDS: ATORVASTATIN 40 MG TABLET GT SCH (21:23)
[2022-02-24] MEDS: MELATONIN 3 MG TABLET GT SCH (21:23)
[2022-02-24] MEDS: TAMSULOSIN 0.4 MG CAP.SR.24H GT SCH (21:23)
[2022-02-24] MEDS: INSULIN GLARGINE, 100 UNIT/ML CARTRIDGE SQ SCH (21:42)
[2022-02-25] MEDS: BLOOD SUGAR DIAGNOSTIC 1 EACH STRIP IN SCH ×5 (00:08→23:23)
[2022-02-25] MEDS: POLYVINYL ALCOHOL 15 ML BOTTLE EACHEYE SCH ×5 (00:08→23:23)
[2022-02-25 01:06] VITALS: BP 111/56
[2022-02-25] MEDS: ALBUTEROL FS 2.5 MG/3 ML VIAL.NEB NEB SCH ×4 (01:47→19:48)
[2022-02-25] MEDS: INSULIN REGULAR, HUMAN 100 UNIT/ML 3 ML VIAL SQ SCH ×3 (05:41→18:30)
[2022-02-25 07:28] VITALS: BP 121/58
[2022-02-25] MEDS: ASCORBIC ACID 500 MG TABLET GT SCH (09:39)
[2022-02-25] MEDS: FERROUS SULFATE (325 MG) 325 MG/TAB TABLET GT SCH (09:39)
[2022-02-25] MEDS: PANTOPRAZOLE 40 MG/PACK PACK GT SCH (09:39)
[2022-02-25] MEDS: ZINC SULFATE 220 MG CAPSULE GT SCH (09:39)
[2022-02-25] MEDS: PROSOURCE / PROSTAT (PYXIS) 30 ML UDC GT SCH ×2 (09:39→17:11)
[2022-02-25] MEDS: ASPIRIN 81 MG TAB.CHEW GT SCH (09:39)
[2022-02-25] MEDS: ENOXAPARIN SODIUM 40 MG/0.4 ML DISP.SYRIN SQ SCH (09:40)
[2022-02-25] MEDS: VITAMINS A AND D 56.7 GM TUBE TP SCH ×2 (09:40→21:30)
[2022-02-25 12:08] VITALS: BP 111/60
[2022-02-25] MEDS: GLUCERNA 1.2 1,000 ML BOTTLE GT PRN (13:11)
--- NOTE | 2022-02-25 18:58 | NUR ---
Seen by AIR DEFENSE CONTROL OFFICER Reshma Christine. She ordered to place pt on cool aerosol 7A-7P starting tomorrow, then CPAP PS 10 FiO2 30% PEEP +5 7P-7A daily. She also ordered ABG tomorrow.
[2022-02-25 20:15] VITALS: BP 135/62
[2022-02-25] MEDS: MELATONIN 3 MG TABLET GT SCH (21:30)
[2022-02-25] MEDS: ATORVASTATIN 40 MG TABLET GT SCH (21:30)
[2022-02-25] MEDS: TAMSULOSIN 0.4 MG CAP.SR.24H GT SCH (21:30)
[2022-02-25] MEDS: INSULIN GLARGINE, 100 UNIT/ML CARTRIDGE SQ SCH (21:58)
[2022-02-26 01:23] VITALS: BP 139/61
[2022-02-26] MEDS: ALBUTEROL FS 2.5 MG/3 ML VIAL.NEB NEB SCH ×4 (02:04→19:39)
[2022-02-26] MEDS: POLYVINYL ALCOHOL 15 ML BOTTLE EACHEYE SCH ×4 (05:43→23:54)
[2022-02-26] MEDS: BLOOD SUGAR DIAGNOSTIC 1 EACH STRIP IN SCH ×4 (05:43→23:54)
[2022-02-26] MEDS: INSULIN REGULAR, HUMAN 100 UNIT/ML 3 ML VIAL SQ SCH ×3 (05:44→17:57)
[2022-02-26 08:03] VITALS: BP 126/56
[2022-02-26] MEDS: ASPIRIN 81 MG TAB.CHEW GT SCH (09:16)
[2022-02-26] MEDS: PANTOPRAZOLE 40 MG/PACK PACK GT SCH (09:17)
[2022-02-26] MEDS: ASCORBIC ACID 500 MG TABLET GT SCH (09:17)
[2022-02-26] MEDS: ZINC SULFATE 220 MG CAPSULE GT SCH (09:17)
[2022-02-26] MEDS: FERROUS SULFATE (325 MG) 325 MG/TAB TABLET GT SCH (09:17)
[2022-02-26] MEDS: PROSOURCE / PROSTAT (PYXIS) 30 ML UDC GT SCH ×2 (09:17→17:37)
[2022-02-26] MEDS: ENOXAPARIN SODIUM 40 MG/0.4 ML DISP.SYRIN SQ SCH (09:18)
[2022-02-26] MEDS: VITAMINS A AND D 56.7 GM TUBE TP SCH ×2 (09:18→21:54)
[2022-02-26 09:40] LABS: ABG BASE EXCESS 0.3 mmol/L; ABG OXYGEN SATURATION 95.4 % (92.0-98.5); ABG PCO2 32.5 mmHg (35.0-45.0); ABG PH 7.476 (7.350-7.450); ABG PO2 76.8 mmHg (75.0-100.0); AaDO2 84.5 mmHg; COHb 0.3 % (0.5-1.5); MetHb 0.2 % (0.0-1.5); O2Hb 94.9 % (94.0-97.0); SITE, ABG Left Radial; VENT MODE, BG CA 5 L 28 %
--- NOTE | 2022-02-26 10:40 | NUR ---
Seen by Dr Colón this morning. Pt was placed on cool aerosol and he is tolerating it well. No respiratory distress noted, O2 sat 100% HR 78. ABG result relayed to Dr Colón and SIEVE GRADER TENDER Reshma Christine. No new order at this time. Pt to remain on cool aerosol during the day and on CPAP at night. Notified pt's .
[2022-02-26] MEDS: GLUCERNA 1.2 1,000 ML BOTTLE GT PRN (11:10)
--- NOTE | 2022-02-26 18:48 | NUR ---
Regular insulin 2units SQ not given Blood sugar is 67mg/dl. CN made aware.
[2022-02-26 20:14] VITALS: BP 100/54
[2022-02-26] MEDS: TAMSULOSIN 0.4 MG CAP.SR.24H GT SCH (21:54)
[2022-02-26] MEDS: MELATONIN 3 MG TABLET GT SCH (21:54)
[2022-02-26] MEDS: ATORVASTATIN 40 MG TABLET GT SCH (21:54)
[2022-02-26] MEDS: INSULIN GLARGINE, 100 UNIT/ML CARTRIDGE SQ SCH (21:55)
[2022-02-27] VITALS: BP 105/52
[2022-02-27] MEDS: ALBUTEROL FS 2.5 MG/3 ML VIAL.NEB NEB SCH ×4 (02:20→19:58)
--- NOTE | 2022-02-27 05:33 | NUR ---
PATIENT RECEIVED ON 28% AEROSOL T-TUBE THEN PLACED BACK ON NOC VENT SUPPORT WITH SETTINGS OF CPAP 5, PS 10, 30%. SUCTIONED FOR MODERATE, THIN, WHITE SECRETIONS. GIVEN IN-LINE TREATMENTS WITH NO ADVERSE REACTIONS. AMBU BAG AT BEDSIDE. VENT AND PULSE OXIMETER ALARMS AUDIBLE AND VISIBLE. TRACH CARE DONE. VENT PLUGGED INTO RED OUTLET. Addendum: 02/27/22 at 0535 by GIANNA ARRINGTON RT Amended: Links added.
[2022-02-27] MEDS: POLYVINYL ALCOHOL 15 ML BOTTLE EACHEYE SCH ×4 (05:47→23:14)
[2022-02-27] MEDS: INSULIN REGULAR, HUMAN 100 UNIT/ML 3 ML VIAL SQ SCH ×3 (05:48→17:45)
[2022-02-27] MEDS: BLOOD SUGAR DIAGNOSTIC 1 EACH STRIP IN SCH ×4 (05:48→23:14)
[2022-02-27 07:41] VITALS: BP 155/62
[2022-02-27] MEDS: FERROUS SULFATE (325 MG) 325 MG/TAB TABLET GT SCH (09:00)
[2022-02-27] MEDS: ZINC SULFATE 220 MG CAPSULE GT SCH (09:00)
[2022-02-27] MEDS: VITAMINS A AND D 56.7 GM TUBE TP SCH ×2 (09:00→21:36)
[2022-02-27] MEDS: ENOXAPARIN SODIUM 40 MG/0.4 ML DISP.SYRIN SQ SCH (09:00)
[2022-02-27] MEDS: ASPIRIN 81 MG TAB.CHEW GT SCH (09:00)
[2022-02-27] MEDS: ASCORBIC ACID 500 MG TABLET GT SCH (09:00)
[2022-02-27] MEDS: PANTOPRAZOLE 40 MG/PACK PACK GT SCH (09:00)
[2022-02-27] MEDS: PROSOURCE / PROSTAT (PYXIS) 30 ML UDC GT SCH ×2 (09:00→17:43)
[2022-02-27] MEDS: ACETAMINOPHEN 650 MG/20 ML UDC- SA PATIENTS-PAIN ONLY GT PRN (12:05)
[2022-02-27 12:44] VITALS: BP 105/53
--- NOTE | 2022-02-27 18:18 | NUR ---
RT NOTE PLACED PT ON COOL AEROSOL, PT STABLE. NO RESPIRATORY DISTRESS OR SOB NOTED AT THIS TIME. TRACH IS SECURED AND PATENT. PT SUCTIONED NEEDED.
[2022-02-27] MEDS: POLYETHYLENE GLYCOL 3350 17 GM POWD.PACK GT PRN (18:32)
[2022-02-27] MEDS: GLUCERNA 1.2 1,000 ML BOTTLE GT PRN (18:32)
[2022-02-27 20:17] VITALS: BP 132/57
[2022-02-27] MEDS: TAMSULOSIN 0.4 MG CAP.SR.24H GT SCH (21:36)
[2022-02-27] MEDS: MELATONIN 3 MG TABLET GT SCH (21:36)
[2022-02-27] MEDS: ATORVASTATIN 40 MG TABLET GT SCH (21:36)
[2022-02-27] MEDS: INSULIN GLARGINE, 100 UNIT/ML CARTRIDGE SQ SCH (21:37)
[2022-02-28 01:28] VITALS: BP 116/55
[2022-02-28] MEDS: ALBUTEROL FS 2.5 MG/3 ML VIAL.NEB NEB SCH ×4 (02:07→19:45)
[2022-02-28] MEDS: POLYVINYL ALCOHOL 15 ML BOTTLE EACHEYE SCH ×4 (05:31→23:28)
[2022-02-28] MEDS: INSULIN REGULAR, HUMAN 100 UNIT/ML 3 ML VIAL SQ SCH ×3 (05:32→17:21)
[2022-02-28] MEDS: BLOOD SUGAR DIAGNOSTIC 1 EACH STRIP IN SCH ×4 (05:32→23:28)
[2022-02-28 07:33] VITALS: BP 104/70
[2022-02-28] MEDS: ASPIRIN 81 MG TAB.CHEW GT SCH (09:34)
[2022-02-28] MEDS: FERROUS SULFATE (325 MG) 325 MG/TAB TABLET GT SCH (09:34)
[2022-02-28] MEDS: ZINC SULFATE 220 MG CAPSULE GT SCH (09:34)
[2022-02-28] MEDS: ASCORBIC ACID 500 MG TABLET GT SCH (09:34)
[2022-02-28] MEDS: PANTOPRAZOLE 40 MG/PACK PACK GT SCH (09:34)
[2022-02-28] MEDS: PROSOURCE / PROSTAT (PYXIS) 30 ML UDC GT SCH ×2 (09:34→17:19)
[2022-02-28] MEDS: ENOXAPARIN SODIUM 40 MG/0.4 ML DISP.SYRIN SQ SCH (09:36)
[2022-02-28] MEDS: VITAMINS A AND D 56.7 GM TUBE TP SCH ×2 (09:36→20:52)
--- NOTE | 2022-02-28 11:02 | NUR ---
RT PT RECVD ON MECH VENT ON ORDERED CPAP SETTINGS, WITH VENT PLUGGED INTO RED OUTLET AND ALARMS ON AND AUDIBLE. TRACH IS PATENT AND SECURED, SUCTION DONE PRN. TRACH CARE DONE. NEB TX GIVEN WITH NO ADVERSE REACTIONS NOTED. PT WAS PLACED ON COOL AEROSOL AFTER TX PER MD ORDER. NO SOB OR RESPIRATORY DISTRESS NOTED AT THIS TIME. BVM AND SPARE TRACH AT BEDSIDE.
[2022-02-28 12:15] VITALS: BP 114/66
--- NOTE | 2022-02-28 14:41 | NUR ---
Facility Update: SW notified pt.'s , Rosaline via email that, "A [employer] employee tested positive for COVID-19 this week. There was no resident exposure. Residents and staff will continue receiving routine testing as outlined by [facility]. [facility] will continue to implement [facility] infection control protocols and continue screening employees before every shift. [facility] continues to follow infection control protocols and screen our residents and staff daily for symptoms".
[2022-02-28] MEDS: GLUCERNA 1.2 1,000 ML BOTTLE GT PRN (17:21)
[2022-02-28 19:23] VITALS: BP 150/79
[2022-02-28] MEDS: ACETAMINOPHEN 650 MG/20 ML UDC- SA PATIENTS-PAIN ONLY GT PRN (20:53)
[2022-02-28] MEDS: INSULIN GLARGINE, 100 UNIT/ML CARTRIDGE SQ SCH (21:27)
[2022-02-28] MEDS: ATORVASTATIN 40 MG TABLET GT SCH (21:27)
[2022-02-28] MEDS: MELATONIN 3 MG TABLET GT SCH (21:27)
[2022-02-28] MEDS: TAMSULOSIN 0.4 MG CAP.SR.24H GT SCH (21:27)
[2022-03-01] MEDS: ACETAMINOPHEN 650 MG/20 ML UDC- SA PATIENTS-FEVER ONLY GT PRN (00:57)
--- NOTE | 2022-03-01 01:00 | NUR ---
Pt noted with temp of 101.2,axillary, no s/sx of acute distress, hr 80 O2 sat 98 %, cooling measures provided and PRN Tylenol for fever given as ordered. Will cont to monitor at this time.
[2022-03-01 01:41] VITALS: BP 122/64
[2022-03-01] MEDS: ALBUTEROL FS 2.5 MG/3 ML VIAL.NEB NEB SCH ×4 (01:49→20:36)
[2022-03-01] MEDS: POLYVINYL ALCOHOL 15 ML BOTTLE EACHEYE SCH ×4 (05:21→23:43)
[2022-03-01] MEDS: BLOOD SUGAR DIAGNOSTIC 1 EACH STRIP IN SCH ×4 (05:22→23:43)
[2022-03-01] MEDS: INSULIN REGULAR, HUMAN 100 UNIT/ML 3 ML VIAL SQ SCH ×3 (05:22→17:26)
[2022-03-01 05:36] VITALS: BP 129/63
--- NOTE | 2022-03-01 06:52 | NUR ---
Notified Dr. Mack of increased temp 101.2 last night and he orders CBC,BMP,CXR,Urinalysis and urine culture,blood culture STAT. Rosaline made aware of change of condition. Will continue to monitor and will endorse to oncoming shift.
[2022-03-01 07:10] LABS: BASOPHILS % (AUTO) 0.2 % (0.0-2.0); EOSINOPHILS % (AUTO) 0.3 % (0.0-6.0); HEMATOCRIT 30 % (39-51); LYMPHOCYTES # (AUTO) 0.9 K/uL (0.8-4.8); LYMPHOCYTES % (AUTO) 6.1 % (20.0-44.0); MEAN CORPUSCULAR HGB CONC 33 g/dl (31.0-36.0); MEAN CORPUSCULAR VOLUME 81 fL (80-96); MONOCYTES # (AUTO) 1.4 K/uL (0.1-1.30); MONOCYTES % (AUTO) 10.3 % (2.0-12.0); NEUTROPHILS # (AUTO) 11.7 K/uL (1.8-8.9); NEUTROPHILS % (AUTO) 83.1 % (43.0-81.0); PLATELET COUNT (AUTO) 327 K/uL (150-450); RED BLOOD CELL COUNT(AUTO) 3.72 MIL/uL (4.5-6.0); WHITE BLOOD COUNT (AUTO) 14.1 K/uL (4.3-11.0)
[2022-03-01 07:29] VITALS: BP 108/61
[2022-03-01 07:30] LABS: BILIRUBIN,URINE NEGATIVE (NEGATIVE); COLOR,URINE YELLOW (YELLOW); LEUKOCYTE ESTERASE ,URINE NEGATIVE (NEGATIVE); NITRITE, URINE POSITIVE (NEGATIVE); PROTEIN,URINE NEGATIVE (NEGATIVE); UGLUCOSE NEGATIVE (NEGATIVE)
[2022-03-01 07:39] LABS: CALCIUM, SERUM 9.1 mg/dL (8.5-10.1); CREATININE 0.8 mg/dL (0.6-1.3); POTASSIUM 4.5 mmol/L (3.5-5.1)
[2022-03-01 07:41] LABS: BACTERIA,URINE Rare /HPF (None Seen); RBC,URINE 0-2 /HPF (0-2); SQUAMOUS EPITHELIAL CELL,UR 0-2 /HPF (None Seen); WBC,URINE 0-2 /HPF (0-3)
[2022-03-01] MEDS: ZINC SULFATE 220 MG CAPSULE GT SCH (09:33)
[2022-03-01] MEDS: FERROUS SULFATE (325 MG) 325 MG/TAB TABLET GT SCH (09:33)
[2022-03-01] MEDS: PROSOURCE / PROSTAT (PYXIS) 30 ML UDC GT SCH ×2 (09:33→17:26)
[2022-03-01] MEDS: PANTOPRAZOLE 40 MG/PACK PACK GT SCH (09:33)
[2022-03-01] MEDS: ASCORBIC ACID 500 MG TABLET GT SCH (09:33)
[2022-03-01] MEDS: VITAMINS A AND D 56.7 GM TUBE TP SCH ×2 (09:34→21:08)
[2022-03-01] MEDS: ENOXAPARIN SODIUM 40 MG/0.4 ML DISP.SYRIN SQ SCH (09:34)
[2022-03-01] MEDS: ASPIRIN 81 MG TAB.CHEW GT SCH (09:37)
--- NOTE | 2022-03-01 09:40 | NUR ---
Relayed CBC, (WBC14.1) BMP, UA and Chest X-ray, V/S 99.3, 77, 15, 100% 108/61, no new order given.
[2022-03-01 12:08] VITALS: BP 110/57
--- NOTE | 2022-03-01 16:00 | NUR ---
Reported by HIRE CAR DRIVER that patient noted to have light yellow discharge coming out from L ear. Dr. Tapia made aware. Resident's Rosaline visiting, informed of all laboratory result and noted discharge on patient's L ear. Continue to monitor. Endorsed.
--- NOTE | 2022-03-01 20:37 | NUR ---
RCVD PT ON CA 28% 5L. PLACED PT ON CPAP VENT , PS 10 FIO2 30% PER MD'S ORDER. NO RESPIRATORY DISTRESS NOTED AT THIS TIME. WILL CONTINUE TO MONITOR T/O SHIFT.
[2022-03-01 20:52] VITALS: BP 114/60
[2022-03-01] MEDS: TAMSULOSIN 0.4 MG CAP.SR.24H GT SCH (21:08)
[2022-03-01] MEDS: ATORVASTATIN 40 MG TABLET GT SCH (21:08)
[2022-03-01] MEDS: MELATONIN 3 MG TABLET GT SCH (21:09)
[2022-03-01] MEDS: INSULIN GLARGINE, 100 UNIT/ML CARTRIDGE SQ SCH (21:09)
[2022-03-01] MEDS: GLUCERNA 1.2 1,000 ML BOTTLE GT PRN (23:44)
[2022-03-02 00:53] VITALS: BP 118/58
[2022-03-02] MEDS: ALBUTEROL FS 2.5 MG/3 ML VIAL.NEB NEB SCH ×4 (01:59→19:35)
[2022-03-02] MEDS: POLYVINYL ALCOHOL 15 ML BOTTLE EACHEYE SCH ×4 (05:06→23:30)
[2022-03-02] MEDS: INSULIN REGULAR, HUMAN 100 UNIT/ML 3 ML VIAL SQ SCH ×3 (05:28→17:16)
[2022-03-02] MEDS: BLOOD SUGAR DIAGNOSTIC 1 EACH STRIP IN SCH ×4 (05:28→23:30)
--- NOTE | 2022-03-02 06:48 | NUR ---
Patient noted will left ear fluid drainage brownish in color. Afebrile. Will continue to monitor and will endorse.
[2022-03-02 07:30] VITALS: BP 102/57
[2022-03-02] MEDS: PROSOURCE / PROSTAT (PYXIS) 30 ML UDC GT SCH ×2 (09:43→17:15)
[2022-03-02] MEDS: ENOXAPARIN SODIUM 40 MG/0.4 ML DISP.SYRIN SQ SCH (09:43)
[2022-03-02] MEDS: VITAMINS A AND D 56.7 GM TUBE TP SCH ×2 (09:43→20:56)
[2022-03-02] MEDS: FERROUS SULFATE (325 MG) 325 MG/TAB TABLET GT SCH (09:43)
[2022-03-02] MEDS: ASPIRIN 81 MG TAB.CHEW GT SCH (09:43)
[2022-03-02] MEDS: ZINC SULFATE 220 MG CAPSULE GT SCH (09:43)
[2022-03-02] MEDS: ASCORBIC ACID 500 MG TABLET GT SCH (09:43)
[2022-03-02] MEDS: PANTOPRAZOLE 40 MG/PACK PACK GT SCH (09:43)
[2022-03-02] MEDS: GLUCERNA 1.2 1,000 ML BOTTLE GT PRN (10:59)
[2022-03-02 11:56] VITALS: BP 95/49
--- NOTE | 2022-03-02 13:00 | NUR ---
Seen and examined by Dr. Mack, seen the drainage coming out from patient's L ear, light yellow in color but lesser. Dr. Mack said to monitor fo now. MD also aware of CBC, BMP CXR and UA result and would like to monitor patient's condition for now. No new order given. Patient on cool aerosol during the day and tolerating well.
[2022-03-02 19:38] VITALS: BP 120/84
[2022-03-02] MEDS: ATORVASTATIN 40 MG TABLET GT SCH (21:17)
[2022-03-02] MEDS: TAMSULOSIN 0.4 MG CAP.SR.24H GT SCH (21:17)
[2022-03-02] MEDS: INSULIN GLARGINE, 100 UNIT/ML CARTRIDGE SQ SCH (21:17)
[2022-03-02] MEDS: MELATONIN 3 MG TABLET GT SCH (21:17)
[2022-03-03 01:00] VITALS: BP 115/78
[2022-03-03] MEDS: ALBUTEROL FS 2.5 MG/3 ML VIAL.NEB NEB SCH ×4 (01:37→19:14)
--- NOTE | 2022-03-03 02:20 | NUR ---
Pt comfortably sleeping at this time, easy to arouse, pt still noted with drainage coming from L. ear, - kept pt clean and dry. Pt remains afebrile. Cont to monitor and anticipate needs.
[2022-03-03] MEDS: POLYVINYL ALCOHOL 15 ML BOTTLE EACHEYE SCH ×4 (05:22→23:37)
[2022-03-03] MEDS: GLUCERNA 1.2 1,000 ML BOTTLE GT PRN (05:22)
[2022-03-03] MEDS: BLOOD SUGAR DIAGNOSTIC 1 EACH STRIP IN SCH ×4 (05:51→23:38)
[2022-03-03] MEDS: INSULIN REGULAR, HUMAN 100 UNIT/ML 3 ML VIAL SQ SCH ×3 (05:52→18:02)
[2022-03-03 08:02] VITALS: BP 108/65
[2022-03-03] MEDS: ASCORBIC ACID 500 MG TABLET GT SCH (08:48)
[2022-03-03] MEDS: FERROUS SULFATE (325 MG) 325 MG/TAB TABLET GT SCH (08:48)
[2022-03-03] MEDS: ZINC SULFATE 220 MG CAPSULE GT SCH (08:48)
[2022-03-03] MEDS: ASPIRIN 81 MG TAB.CHEW GT SCH (08:48)
[2022-03-03] MEDS: PANTOPRAZOLE 40 MG/PACK PACK GT SCH (08:48)
[2022-03-03] MEDS: PROSOURCE / PROSTAT (PYXIS) 30 ML UDC GT SCH ×2 (08:48→17:59)
[2022-03-03] MEDS: ENOXAPARIN SODIUM 40 MG/0.4 ML DISP.SYRIN SQ SCH (08:49)
[2022-03-03] MEDS: VITAMINS A AND D 56.7 GM TUBE TP SCH ×2 (08:49→21:39)
[2022-03-03 11:45] VITALS: BP 108/67
--- NOTE | 2022-03-03 19:21 | NUR ---
Patient awake, no resp. distress note. monitored for left ear drainage and noted a small amount of drainage. kept clean and comfortable. continue to monitor.
[2022-03-03 19:53] VITALS: BP 128/79
[2022-03-03] MEDS: TAMSULOSIN 0.4 MG CAP.SR.24H GT SCH (21:39)
[2022-03-03] MEDS: MELATONIN 3 MG TABLET GT SCH (21:39)
[2022-03-03] MEDS: ATORVASTATIN 40 MG TABLET GT SCH (21:39)
[2022-03-03] MEDS: INSULIN GLARGINE, 100 UNIT/ML CARTRIDGE SQ SCH (21:43)
[2022-03-04 01:04] VITALS: BP 106/55
[2022-03-04] MEDS: ALBUTEROL FS 2.5 MG/3 ML VIAL.NEB NEB SCH ×4 (01:11→20:14)
[2022-03-04] MEDS: BLOOD SUGAR DIAGNOSTIC 1 EACH STRIP IN SCH ×4 (05:45→23:24)
[2022-03-04] MEDS: POLYVINYL ALCOHOL 15 ML BOTTLE EACHEYE SCH ×4 (05:45→23:24)
[2022-03-04] MEDS: INSULIN REGULAR, HUMAN 100 UNIT/ML 3 ML VIAL SQ SCH ×3 (05:46→17:34)
[2022-03-04] MEDS: GLUCERNA 1.2 1,000 ML BOTTLE GT PRN (05:46)
[2022-03-04 07:24] VITALS: BP 130/67
[2022-03-04] MEDS: FERROUS SULFATE (325 MG) 325 MG/TAB TABLET GT SCH (09:00)
[2022-03-04] MEDS: ASCORBIC ACID 500 MG TABLET GT SCH (09:00)
[2022-03-04] MEDS: PANTOPRAZOLE 40 MG/PACK PACK GT SCH (09:00)
[2022-03-04] MEDS: ZINC SULFATE 220 MG CAPSULE GT SCH (09:00)
[2022-03-04] MEDS: PROSOURCE / PROSTAT (PYXIS) 30 ML UDC GT SCH ×2 (09:00→17:32)
[2022-03-04] MEDS: ASPIRIN 81 MG TAB.CHEW GT SCH (09:00)
[2022-03-04] MEDS: VITAMINS A AND D 56.7 GM TUBE TP SCH ×2 (09:00→21:53)
[2022-03-04] MEDS: ENOXAPARIN SODIUM 40 MG/0.4 ML DISP.SYRIN SQ SCH (09:00)
[2022-03-04 11:22] VITALS: BP 140/71
[2022-03-04 19:43] VITALS: BP 124/64
[2022-03-04] MEDS: INSULIN GLARGINE, 100 UNIT/ML CARTRIDGE SQ SCH (21:53)
[2022-03-04] MEDS: MELATONIN 3 MG TABLET GT SCH (21:53)
[2022-03-04] MEDS: ATORVASTATIN 40 MG TABLET GT SCH (21:53)
[2022-03-04] MEDS: TAMSULOSIN 0.4 MG CAP.SR.24H GT SCH (21:53)
[2022-03-05 01:00] VITALS: BP 118/71
[2022-03-05] MEDS: GLUCERNA 1.2 1,000 ML BOTTLE GT PRN (01:09)
[2022-03-05] MEDS: ALBUTEROL FS 2.5 MG/3 ML VIAL.NEB NEB SCH ×4 (02:03→19:30)
[2022-03-05] MEDS: POLYVINYL ALCOHOL 15 ML BOTTLE EACHEYE SCH ×4 (05:51→23:54)
[2022-03-05] MEDS: BLOOD SUGAR DIAGNOSTIC 1 EACH STRIP IN SCH ×4 (05:51→23:54)
[2022-03-05] MEDS: INSULIN REGULAR, HUMAN 100 UNIT/ML 3 ML VIAL SQ SCH ×3 (05:52→17:31)
[2022-03-05 07:20] VITALS: BP 115/69
--- NOTE | 2022-03-05 08:24 | NUR ---
RT NOTE PLACED PT ON CA PER MD ORDER. NO SOB NOTED AT THIS TIME. WILL CONTINUE TO MONITOR FOR ANY CHANGES.
[2022-03-05] MEDS: PANTOPRAZOLE 40 MG/PACK PACK GT SCH (09:50)
[2022-03-05] MEDS: FERROUS SULFATE (325 MG) 325 MG/TAB TABLET GT SCH (09:50)
[2022-03-05] MEDS: PROSOURCE / PROSTAT (PYXIS) 30 ML UDC GT SCH ×2 (09:50→17:29)
[2022-03-05] MEDS: ASCORBIC ACID 500 MG TABLET GT SCH (09:50)
[2022-03-05] MEDS: ZINC SULFATE 220 MG CAPSULE GT SCH (09:50)
[2022-03-05] MEDS: ASPIRIN 81 MG TAB.CHEW GT SCH (09:50)
[2022-03-05] MEDS: ENOXAPARIN SODIUM 40 MG/0.4 ML DISP.SYRIN SQ SCH (09:51)
[2022-03-05] MEDS: VITAMINS A AND D 56.7 GM TUBE TP SCH ×2 (09:51→21:49)
[2022-03-05 11:15] VITALS: BP 115/60
[2022-03-05 19:57] VITALS: BP 122/56
[2022-03-05] MEDS: TAMSULOSIN 0.4 MG CAP.SR.24H GT SCH (21:49)
[2022-03-05] MEDS: MELATONIN 3 MG TABLET GT SCH (21:49)
[2022-03-05] MEDS: ATORVASTATIN 40 MG TABLET GT SCH (21:49)
[2022-03-05] MEDS: INSULIN GLARGINE, 100 UNIT/ML CARTRIDGE SQ SCH (21:50)
[2022-03-06] MEDS: ALBUTEROL FS 2.5 MG/3 ML VIAL.NEB NEB SCH ×4 (01:48→20:14)
[2022-03-06 01:57] VITALS: BP 118/58
[2022-03-06] MEDS: BLOOD SUGAR DIAGNOSTIC 1 EACH STRIP IN SCH ×4 (05:52→23:50)
[2022-03-06] MEDS: POLYVINYL ALCOHOL 15 ML BOTTLE EACHEYE SCH ×4 (05:52→23:49)
[2022-03-06] MEDS: INSULIN REGULAR, HUMAN 100 UNIT/ML 3 ML VIAL SQ SCH ×3 (05:52→17:37)
[2022-03-06 07:24] VITALS: BP 143/98
[2022-03-06] MEDS: ASPIRIN 81 MG TAB.CHEW GT SCH (09:00)
[2022-03-06] MEDS: ENOXAPARIN SODIUM 40 MG/0.4 ML DISP.SYRIN SQ SCH (09:00)
[2022-03-06] MEDS: FERROUS SULFATE (325 MG) 325 MG/TAB TABLET GT SCH (09:00)
[2022-03-06] MEDS: ASCORBIC ACID 500 MG TABLET GT SCH (09:00)
[2022-03-06] MEDS: ZINC SULFATE 220 MG CAPSULE GT SCH (09:00)
[2022-03-06] MEDS: PROSOURCE / PROSTAT (PYXIS) 30 ML UDC GT SCH ×2 (09:00→17:27)
[2022-03-06] MEDS: VITAMINS A AND D 56.7 GM TUBE TP SCH ×2 (09:00→21:51)
[2022-03-06] MEDS: PANTOPRAZOLE 40 MG/PACK PACK GT SCH (09:00)
[2022-03-06 12:16] VITALS: BP 138/81
[2022-03-06] MEDS: GLUCERNA 1.2 1,000 ML BOTTLE GT PRN (19:13)
[2022-03-06 20:00] VITALS: BP 101/62
[2022-03-06] MEDS: ATORVASTATIN 40 MG TABLET GT SCH (21:51)
[2022-03-06] MEDS: TAMSULOSIN 0.4 MG CAP.SR.24H GT SCH (21:51)
[2022-03-06] MEDS: MELATONIN 3 MG TABLET GT SCH (21:52)
[2022-03-06] MEDS: INSULIN GLARGINE, 100 UNIT/ML CARTRIDGE SQ SCH (21:53)
[2022-03-07] MEDS: ALBUTEROL FS 2.5 MG/3 ML VIAL.NEB NEB SCH ×4 (01:40→20:08)
[2022-03-07] MEDS: POLYVINYL ALCOHOL 15 ML BOTTLE EACHEYE SCH ×4 (05:53→23:18)
[2022-03-07] MEDS: BLOOD SUGAR DIAGNOSTIC 1 EACH STRIP IN SCH ×4 (05:53→23:18)
[2022-03-07] MEDS: INSULIN REGULAR, HUMAN 100 UNIT/ML 3 ML VIAL SQ SCH ×3 (05:54→17:55)
[2022-03-07 07:17] VITALS: BP 98/56
[2022-03-07] MEDS: ASPIRIN 81 MG TAB.CHEW GT SCH (09:00)
[2022-03-07] MEDS: ENOXAPARIN SODIUM 40 MG/0.4 ML DISP.SYRIN SQ SCH (09:00)
[2022-03-07] MEDS: ASCORBIC ACID 500 MG TABLET GT SCH (09:31)
[2022-03-07] MEDS: PROSOURCE / PROSTAT (PYXIS) 30 ML UDC GT SCH ×2 (09:31→17:11)
[2022-03-07] MEDS: ZINC SULFATE 220 MG CAPSULE GT SCH (09:31)
[2022-03-07] MEDS: FERROUS SULFATE (325 MG) 325 MG/TAB TABLET GT SCH (09:31)
[2022-03-07] MEDS: PANTOPRAZOLE 40 MG/PACK PACK GT SCH (09:31)
[2022-03-07] MEDS: VITAMINS A AND D 56.7 GM TUBE TP SCH ×2 (09:32→21:15)
--- NOTE | 2022-03-07 09:32 | NUR ---
Pt noted with mild bleeding from trach. No SOB/ no distress noted. Aspirin and Lovenox held. Will continue to monitor.
--- NOTE | 2022-03-07 09:35 | NUR ---
Notified HANDS ASSEMBLER Reshma Christine that pt has mild tracheal bleeding. She ordered to hold Lovenox and Aspirin. Notified pt's .
[2022-03-07 12:03] VITALS: BP 111/58
[2022-03-07] MEDS: GLUCERNA 1.2 1,000 ML BOTTLE GT PRN (12:14)
--- NOTE | 2022-03-07 17:42 | NUR ---
Seen by MATERIAL FLOW ANALYST Reshma Christine via telemedicine/video call. She ordered to do CBC tomorrow due to tracheal bleeding.
[2022-03-07] MEDS: MELATONIN 3 MG TABLET GT SCH (21:15)
[2022-03-07] MEDS: ATORVASTATIN 40 MG TABLET GT SCH (21:15)
[2022-03-07] MEDS: TAMSULOSIN 0.4 MG CAP.SR.24H GT SCH (21:15)
[2022-03-07] MEDS: INSULIN GLARGINE, 100 UNIT/ML CARTRIDGE SQ SCH (21:18)
[2022-03-07 21:27] VITALS: BP 118/66
[2022-03-08 00:28] VITALS: BP 122/65
[2022-03-08] MEDS: ALBUTEROL FS 2.5 MG/3 ML VIAL.NEB NEB SCH ×4 (02:07→19:40)
[2022-03-08] MEDS: BLOOD SUGAR DIAGNOSTIC 1 EACH STRIP IN SCH ×3 (05:33→18:04)
[2022-03-08] MEDS: POLYVINYL ALCOHOL 15 ML BOTTLE EACHEYE SCH ×3 (05:33→17:46)
[2022-03-08] MEDS: GLUCERNA 1.2 1,000 ML BOTTLE GT PRN (05:34)
[2022-03-08] MEDS: INSULIN REGULAR, HUMAN 100 UNIT/ML 3 ML VIAL SQ SCH ×3 (05:34→18:05)
--- NOTE | 2022-03-08 06:55 | NUR ---
Noted with tracheal bleeding mixed with secretions moderate amount. Suctioning provided as needed. Will continue to monitor and will endorse.
[2022-03-08 07:18] VITALS: BP 111/62
[2022-03-08 07:39] LABS: BASOPHILS # (AUTO) 0.1 K/uL (0.0-0.2); BASOPHILS % (AUTO) 1.4 % (0.0-2.0); EOSINOPHILS % (AUTO) 7.5 % (0.0-6.0); HEMATOCRIT 27 % (39-51); HEMOGLOBIN 9.2 g/dL (13.5-17.5); LYMPHOCYTES # (AUTO) 1.1 K/uL (0.8-4.8); LYMPHOCYTES % (AUTO) 17.7 % (20.0-44.0); MEAN CORPUSCULAR HGB CONC 34 g/dl (31.0-36.0); MEAN CORPUSCULAR VOLUME 80 fL (80-96); MONOCYTES # (AUTO) 0.7 K/uL (0.1-1.30); MONOCYTES % (AUTO) 10.4 % (2.0-12.0); NEUTROPHILS # (AUTO) 4.1 K/uL (1.8-8.9); PLATELET COUNT (AUTO) 417 K/uL (150-450); RED BLOOD CELL COUNT(AUTO) 3.41 MIL/uL (4.5-6.0); WHITE BLOOD COUNT (AUTO) 6.5 K/uL (4.3-11.0)
[2022-03-08] MEDS: ASCORBIC ACID 500 MG TABLET GT SCH (09:37)
[2022-03-08] MEDS: ZINC SULFATE 220 MG CAPSULE GT SCH (09:37)
[2022-03-08] MEDS: PROSOURCE / PROSTAT (PYXIS) 30 ML UDC GT SCH ×2 (09:37→17:46)
[2022-03-08] MEDS: FERROUS SULFATE (325 MG) 325 MG/TAB TABLET GT SCH (09:37)
[2022-03-08] MEDS: PANTOPRAZOLE 40 MG/PACK PACK GT SCH (09:37)
[2022-03-08] MEDS: VITAMINS A AND D 56.7 GM TUBE TP SCH ×2 (09:37→21:12)
[2022-03-08 12:39] VITALS: BP 103/56
--- NOTE | 2022-03-08 15:14 | NUR ---
INTERDISCIPLINARY PLAN OF CARE CONFERENCE took place today. The patients , Rosaline [phone] Colón and Interdisciplinary team discussed the plan of care in detail. Current orders as well as treatments and medications were reviewed.
--- NOTE | 2022-03-08 15:30 | NUR ---
Dr. Colón ordered to place patient on debbie aerosol from 7am to 12 midnight as tolerated and 12 midnight to 7am in CPAP mode. Patient's updated of current condition, new orders and what was discussed during IDT.
--- NOTE | 2022-03-08 15:46 | NUR ---
Latest Facility Update: PIERRE informed pt.'s responsible constitution party, Rosaline via email that, "PIERRE Facility Update: No [facility] employee tested positive for COVID-19 this week. Residents and staff will continue receiving routine testing. We will continue to implement [facility] infection control protocols and continue screening employees before every shift. [facility] continues to follow infection control protocols and screen our residents and staff daily for symptoms". PIERRE also encouraged family to get vaccinated and boosted and notified them that per [facility], when transmission rate lowers to moderate, fully vaccinated and boosted visitors will not need to show proof of negative COVID test. SW notified families that the transmission rate is still at high and the visitation guidelines remain the same. SW reminded them they still need to present negative COVID test upon visiting regardless of vaccination status at this time. PIERRE attached visitation guideline with instructions.
[2022-03-08 20:36] VITALS: BP 117/65
[2022-03-08] MEDS: TAMSULOSIN 0.4 MG CAP.SR.24H GT SCH (21:12)
[2022-03-08] MEDS: ATORVASTATIN 40 MG TABLET GT SCH (21:12)
[2022-03-08] MEDS: INSULIN GLARGINE, 100 UNIT/ML CARTRIDGE SQ SCH (21:13)
[2022-03-08] MEDS: MELATONIN 3 MG TABLET GT SCH (21:13)
[2022-03-08] MEDS: ACETAMINOPHEN 650 MG/20 ML UDC- SA PATIENTS-PAIN ONLY GT PRN (21:18)
[2022-03-09] MEDS: BLOOD SUGAR DIAGNOSTIC 1 EACH STRIP IN SCH ×4 (00:22→17:39)
[2022-03-09] MEDS: POLYVINYL ALCOHOL 15 ML BOTTLE EACHEYE SCH ×4 (00:22→17:39)
[2022-03-09 00:24] VITALS: BP 120/66
--- NOTE | 2022-03-09 00:32 | NUR ---
RT SPOKE WITH INFECTIOUS DISEASES PHYSICIANCHIKI RODAS FOR CLARIFICATION OF MD ORDERS FOR PT TO BE ON COOL AEROSOL FROM 0700 UNTIL 0000/MIDNIGHT, AND CPAP FROM 0000 MIDNIGHT TO 0700
[2022-03-09] MEDS: ALBUTEROL FS 2.5 MG/3 ML VIAL.NEB NEB SCH ×4 (02:08→20:07)
--- NOTE | 2022-03-09 04:52 | NUR ---
RT PT RECVD ON COOL AEROSOL 28% VIA T-BAR WITH TRACH PATENT AND SECURED. NEB TX GIVEN AND KAILEE WELL. PT PLACED ON VENT ORDERED BY MD, WITH CUFF INFLATED, ALARMS ON AND AUDIBLE AND VENT IS PLUGGED INTO RED WALL OUTLET. SUCTION PRN AND TRACH CARE COMPLETED. BVM AND SPARE TRACH AT BEDSIDE. NO SOB OR RESPIRATORY DISTRESS NOTED THROUGHOUT SHIFT.
[2022-03-09] MEDS: INSULIN REGULAR, HUMAN 100 UNIT/ML 3 ML VIAL SQ SCH ×3 (05:38→17:39)
[2022-03-09] MEDS: GLUCERNA 1.2 1,000 ML BOTTLE GT PRN ×2 (06:03→14:51)
[2022-03-09 07:16] VITALS: BP 126/56
[2022-03-09] MEDS: FERROUS SULFATE (325 MG) 325 MG/TAB TABLET GT SCH (09:13)
[2022-03-09] MEDS: PROSOURCE / PROSTAT (PYXIS) 30 ML UDC GT SCH ×2 (09:13→17:39)
[2022-03-09] MEDS: ZINC SULFATE 220 MG CAPSULE GT SCH (09:14)
[2022-03-09] MEDS: PANTOPRAZOLE 40 MG/PACK PACK GT SCH (09:14)
[2022-03-09] MEDS: ASCORBIC ACID 500 MG TABLET GT SCH (09:14)
[2022-03-09] MEDS: VITAMINS A AND D 56.7 GM TUBE TP SCH ×2 (09:14→21:28)
[2022-03-09 13:18] VITALS: BP 106/58
--- NOTE | 2022-03-09 16:30 | NUR ---
Notified Dr. Colón that patient has no more tracheal bleeding. He ordered to resume Aspirin and Lovenox. Orders carried out.
[2022-03-09] MEDS: TAMSULOSIN 0.4 MG CAP.SR.24H GT SCH (21:28)
[2022-03-09] MEDS: ATORVASTATIN 40 MG TABLET GT SCH (21:28)
[2022-03-09] MEDS: MELATONIN 3 MG TABLET GT SCH (21:28)
[2022-03-09] MEDS: INSULIN GLARGINE, 100 UNIT/ML CARTRIDGE SQ SCH (22:20)
[2022-03-10] MEDS: BLOOD SUGAR DIAGNOSTIC 1 EACH STRIP IN SCH ×4 (00:39→17:57)
[2022-03-10] MEDS: POLYVINYL ALCOHOL 15 ML BOTTLE EACHEYE SCH ×4 (00:39→17:57)
[2022-03-10 00:45] VITALS: BP 115/58
[2022-03-10] MEDS: ALBUTEROL FS 2.5 MG/3 ML VIAL.NEB NEB SCH ×4 (01:55→19:38)
[2022-03-10] MEDS: INSULIN REGULAR, HUMAN 100 UNIT/ML 3 ML VIAL SQ SCH ×3 (05:54→18:00)
[2022-03-10 07:53] VITALS: BP 106/51
[2022-03-10] MEDS: PANTOPRAZOLE 40 MG/PACK PACK GT SCH (09:42)
[2022-03-10] MEDS: PROSOURCE / PROSTAT (PYXIS) 30 ML UDC GT SCH ×2 (09:42→17:57)
[2022-03-10] MEDS: ASPIRIN 81 MG TAB.CHEW GT SCH (09:42)
[2022-03-10] MEDS: FERROUS SULFATE (325 MG) 325 MG/TAB TABLET GT SCH (09:42)
[2022-03-10] MEDS: VITAMINS A AND D 56.7 GM TUBE TP SCH ×2 (09:43→21:00)
[2022-03-10] MEDS: ZINC SULFATE 220 MG CAPSULE GT SCH (09:43)
[2022-03-10] MEDS: ASCORBIC ACID 500 MG TABLET GT SCH (09:43)
[2022-03-10] MEDS: ENOXAPARIN SODIUM 40 MG/0.4 ML DISP.SYRIN SQ SCH (09:46)
[2022-03-10] MEDS: GLUCERNA 1.2 1,000 ML BOTTLE GT PRN (17:57)
--- NOTE | 2022-03-10 18:26 | NUR ---
BS 78, routine regular insulin of 2 units (3x/ day) held this evening, pt no distress.
[2022-03-10 20:10] VITALS: BP 122/65
[2022-03-10] MEDS: ATORVASTATIN 40 MG TABLET GT SCH (22:00)
[2022-03-10] MEDS: MELATONIN 3 MG TABLET GT SCH (22:00)
[2022-03-10] MEDS: TAMSULOSIN 0.4 MG CAP.SR.24H GT SCH (22:00)
[2022-03-10] MEDS: INSULIN GLARGINE, 100 UNIT/ML CARTRIDGE SQ SCH (22:00)
[2022-03-11 01:16] VITALS: BP 126/60
[2022-03-11] MEDS: ALBUTEROL FS 2.5 MG/3 ML VIAL.NEB NEB SCH ×4 (02:06→20:32)
[2022-03-11] MEDS: INSULIN REGULAR, HUMAN 100 UNIT/ML 3 ML VIAL SQ SCH ×3 (06:00→18:24)
[2022-03-11] MEDS: BLOOD SUGAR DIAGNOSTIC 1 EACH STRIP IN SCH ×4 (06:39→18:23)
[2022-03-11] MEDS: POLYVINYL ALCOHOL 15 ML BOTTLE EACHEYE SCH ×5 (06:39→23:31)
[2022-03-11 07:50] VITALS: BP 120/75
[2022-03-11] MEDS: ASPIRIN 81 MG TAB.CHEW GT SCH (09:48)
[2022-03-11] MEDS: PROSOURCE / PROSTAT (PYXIS) 30 ML UDC GT SCH ×2 (09:48→16:41)
[2022-03-11] MEDS: FERROUS SULFATE (325 MG) 325 MG/TAB TABLET GT SCH (09:48)
[2022-03-11] MEDS: ZINC SULFATE 220 MG CAPSULE GT SCH (09:49)
[2022-03-11] MEDS: PANTOPRAZOLE 40 MG/PACK PACK GT SCH (09:49)
[2022-03-11] MEDS: ASCORBIC ACID 500 MG TABLET GT SCH (09:49)
[2022-03-11] MEDS: ENOXAPARIN SODIUM 40 MG/0.4 ML DISP.SYRIN SQ SCH (09:50)
[2022-03-11] MEDS: VITAMINS A AND D 56.7 GM TUBE TP SCH ×2 (09:50→21:00)
[2022-03-11 13:32] VITALS: BP 127/77
--- NOTE | 2022-03-11 14:50 | NUR ---
MDS: SW completed the Machining Technician portion of [facility] MDS assessment. The patients responsible alliance party is his , Rosaline Brito [phone] who visits regularly. The patient is lethargic, non-communicative. The pt. has on cool aerosol during the day and ventilator during night(See RT notes for details) with trach and g-tube feeding (see landscape architect and planner notes for details). The patients last optometry appointment with Dr. Desai was on 01/15/2022 and is pending dental exam. The patients last podiatry consultation with Dr. Patino was on 03/07/2022.
[2022-03-11] MEDS: GLUCERNA 1.2 1,000 ML BOTTLE GT PRN (16:42)
[2022-03-11 20:45] VITALS: BP 126/65
[2022-03-11] MEDS: INSULIN GLARGINE, 100 UNIT/ML CARTRIDGE SQ SCH (22:00)
[2022-03-11] MEDS: MELATONIN 3 MG TABLET GT SCH (22:00)
[2022-03-11] MEDS: TAMSULOSIN 0.4 MG CAP.SR.24H GT SCH (22:00)
[2022-03-11] MEDS: ATORVASTATIN 40 MG TABLET GT SCH (22:00)
[2022-03-12] MEDS: BLOOD SUGAR DIAGNOSTIC 1 EACH STRIP IN SCH ×5 (00:36→23:15)
[2022-03-12 01:10] VITALS: BP 116/55
[2022-03-12] MEDS: ALBUTEROL FS 2.5 MG/3 ML VIAL.NEB NEB SCH ×4 (02:04→20:12)
[2022-03-12] MEDS: POLYVINYL ALCOHOL 15 ML BOTTLE EACHEYE SCH ×4 (05:21→23:15)
[2022-03-12] MEDS: INSULIN REGULAR, HUMAN 100 UNIT/ML 3 ML VIAL SQ SCH ×3 (06:23→17:43)
[2022-03-12 07:22] VITALS: BP 109/66
[2022-03-12] MEDS: PROSOURCE / PROSTAT (PYXIS) 30 ML UDC GT SCH ×2 (09:21→16:35)
[2022-03-12] MEDS: ASCORBIC ACID 500 MG TABLET GT SCH (09:21)
[2022-03-12] MEDS: ENOXAPARIN SODIUM 40 MG/0.4 ML DISP.SYRIN SQ SCH (09:21)
[2022-03-12] MEDS: FERROUS SULFATE (325 MG) 325 MG/TAB TABLET GT SCH (09:21)
[2022-03-12] MEDS: ZINC SULFATE 220 MG CAPSULE GT SCH (09:21)
[2022-03-12] MEDS: PANTOPRAZOLE 40 MG/PACK PACK GT SCH (09:21)
[2022-03-12] MEDS: ASPIRIN 81 MG TAB.CHEW GT SCH (09:21)
[2022-03-12] MEDS: VITAMINS A AND D 56.7 GM TUBE TP SCH ×2 (09:22→21:55)
[2022-03-12] MEDS: GLUCERNA 1.2 1,000 ML BOTTLE GT PRN (12:25)
[2022-03-12 19:32] VITALS: BP 124/73
[2022-03-12] MEDS: TAMSULOSIN 0.4 MG CAP.SR.24H GT SCH (21:55)
[2022-03-12] MEDS: MELATONIN 3 MG TABLET GT SCH (21:55)
[2022-03-12] MEDS: ATORVASTATIN 40 MG TABLET GT SCH (21:55)
[2022-03-12] MEDS: INSULIN GLARGINE, 100 UNIT/ML CARTRIDGE SQ SCH (22:02)
[2022-03-13] MEDS: ALBUTEROL FS 2.5 MG/3 ML VIAL.NEB NEB SCH ×4 (01:43→20:18)
[2022-03-13] MEDS: BLOOD SUGAR DIAGNOSTIC 1 EACH STRIP IN SCH ×3 (05:53→17:23)
[2022-03-13] MEDS: POLYVINYL ALCOHOL 15 ML BOTTLE EACHEYE SCH ×3 (05:53→17:23)
[2022-03-13] MEDS: INSULIN REGULAR, HUMAN 100 UNIT/ML 3 ML VIAL SQ SCH ×3 (05:54→17:24)
[2022-03-13 07:36] VITALS: BP 127/60
[2022-03-13] MEDS: VITAMINS A AND D 56.7 GM TUBE TP SCH ×2 (09:00→21:35)
[2022-03-13] MEDS: ZINC SULFATE 220 MG CAPSULE GT SCH (09:00)
[2022-03-13] MEDS: PROSOURCE / PROSTAT (PYXIS) 30 ML UDC GT SCH ×2 (09:00→17:23)
[2022-03-13] MEDS: ASPIRIN 81 MG TAB.CHEW GT SCH (09:00)
[2022-03-13] MEDS: ENOXAPARIN SODIUM 40 MG/0.4 ML DISP.SYRIN SQ SCH (09:00)
[2022-03-13] MEDS: ASCORBIC ACID 500 MG TABLET GT SCH (09:00)
[2022-03-13] MEDS: PANTOPRAZOLE 40 MG/PACK PACK GT SCH (09:00)
[2022-03-13] MEDS: FERROUS SULFATE (325 MG) 325 MG/TAB TABLET GT SCH (09:00)
[2022-03-13 12:11] VITALS: BP 129/62
[2022-03-13] MEDS: GLUCERNA 1.2 1,000 ML BOTTLE GT PRN (12:57)
[2022-03-13 19:32] VITALS: BP 116/71
[2022-03-13] MEDS: TAMSULOSIN 0.4 MG CAP.SR.24H GT SCH (21:35)
[2022-03-13] MEDS: ATORVASTATIN 40 MG TABLET GT SCH (21:35)
[2022-03-13] MEDS: MELATONIN 3 MG TABLET GT SCH (21:35)
[2022-03-13] MEDS: INSULIN GLARGINE, 100 UNIT/ML CARTRIDGE SQ SCH (21:36)
[2022-03-14] MEDS: BLOOD SUGAR DIAGNOSTIC 1 EACH STRIP IN SCH ×4 (00:01→18:12)
[2022-03-14] MEDS: POLYVINYL ALCOHOL 15 ML BOTTLE EACHEYE SCH ×4 (00:01→17:27)
[2022-03-14] MEDS: ALBUTEROL FS 2.5 MG/3 ML VIAL.NEB NEB SCH ×4 (01:59→20:14)
[2022-03-14] MEDS: INSULIN REGULAR, HUMAN 100 UNIT/ML 3 ML VIAL SQ SCH ×3 (05:44→18:00)
[2022-03-14] MEDS: GLUCERNA 1.2 1,000 ML BOTTLE GT PRN ×2 (06:22→18:12)
--- NOTE | 2022-03-14 06:26 | NUR ---
Patient with tracheal bleeding moderate amount,cool lavage provided during suctioning. Will continue to monitor and will endorse.
[2022-03-14] MEDS: POLYETHYLENE GLYCOL 3350 17 GM POWD.PACK GT PRN (06:42)
[2022-03-14 08:00] VITALS: BP 98/53
[2022-03-14] MEDS: ENOXAPARIN SODIUM 40 MG/0.4 ML DISP.SYRIN SQ SCH (09:00)
[2022-03-14] MEDS: ASPIRIN 81 MG TAB.CHEW GT SCH (09:00)
--- NOTE | 2022-03-14 09:20 | NUR ---
Notified SHAHRAM Christine that pt has tracheal bleeding. Received order to hold Lovenox and Aspirin for 2 days. Notified Rosaline.
[2022-03-14] MEDS: VITAMINS A AND D 56.7 GM TUBE TP SCH ×2 (09:40→21:26)
[2022-03-14] MEDS: FERROUS SULFATE (325 MG) 325 MG/TAB TABLET GT SCH (09:41)
[2022-03-14] MEDS: PROSOURCE / PROSTAT (PYXIS) 30 ML UDC GT SCH ×2 (09:42→16:37)
[2022-03-14] MEDS: PANTOPRAZOLE 40 MG/PACK PACK GT SCH (09:42)
[2022-03-14] MEDS: ZINC SULFATE 220 MG CAPSULE GT SCH (09:43)
[2022-03-14] MEDS: ASCORBIC ACID 500 MG TABLET GT SCH (09:43)
[2022-03-14 10:00] VITALS: BP 98/53
[2022-03-14 12:00] VITALS: BP 105/58
[2022-03-14 19:10] VITALS: BP 106/76
[2022-03-14] MEDS: MELATONIN 3 MG TABLET GT SCH (21:26)
[2022-03-14] MEDS: TAMSULOSIN 0.4 MG CAP.SR.24H GT SCH (21:26)
[2022-03-14] MEDS: ATORVASTATIN 40 MG TABLET GT SCH (21:26)
[2022-03-14] MEDS: INSULIN GLARGINE, 100 UNIT/ML CARTRIDGE SQ SCH (21:26)
[2022-03-15] MEDS: BLOOD SUGAR DIAGNOSTIC 1 EACH STRIP IN SCH ×5 (00:03→23:58)
[2022-03-15] MEDS: POLYVINYL ALCOHOL 15 ML BOTTLE EACHEYE SCH ×5 (00:03→23:58)
[2022-03-15 00:16] VITALS: BP 124/69
[2022-03-15] MEDS: ALBUTEROL FS 2.5 MG/3 ML VIAL.NEB NEB SCH ×4 (02:02→19:32)
[2022-03-15] MEDS: INSULIN REGULAR, HUMAN 100 UNIT/ML 3 ML VIAL SQ SCH ×3 (05:20→18:35)
[2022-03-15 07:50] VITALS: BP 118/69
[2022-03-15] MEDS: PROSOURCE / PROSTAT (PYXIS) 30 ML UDC GT SCH ×2 (09:28→16:43)
[2022-03-15] MEDS: FERROUS SULFATE (325 MG) 325 MG/TAB TABLET GT SCH (09:28)
[2022-03-15] MEDS: ASCORBIC ACID 500 MG TABLET GT SCH (09:29)
[2022-03-15] MEDS: VITAMINS A AND D 56.7 GM TUBE TP SCH ×2 (09:29→21:31)
[2022-03-15] MEDS: ZINC SULFATE 220 MG CAPSULE GT SCH (09:29)
[2022-03-15] MEDS: PANTOPRAZOLE 40 MG/PACK PACK GT SCH (09:31)
[2022-03-15 10:00] VITALS: BP 118/69
[2022-03-15 12:58] VITALS: BP 111/67
[2022-03-15] MEDS: GLUCERNA 1.2 1,000 ML BOTTLE GT PRN (16:43)
[2022-03-15 20:13] VITALS: BP 114/53
[2022-03-15] MEDS: INSULIN GLARGINE, 100 UNIT/ML CARTRIDGE SQ SCH (21:31)
[2022-03-15] MEDS: TAMSULOSIN 0.4 MG CAP.SR.24H GT SCH (21:31)
[2022-03-15] MEDS: MELATONIN 3 MG TABLET GT SCH (21:31)
[2022-03-15] MEDS: ATORVASTATIN 40 MG TABLET GT SCH (21:31)
[2022-03-16 01:27] VITALS: BP 100/59
[2022-03-16] MEDS: ALBUTEROL FS 2.5 MG/3 ML VIAL.NEB NEB SCH ×4 (02:24→20:23)
[2022-03-16] MEDS: BLOOD SUGAR DIAGNOSTIC 1 EACH STRIP IN SCH ×3 (05:41→17:41)
[2022-03-16] MEDS: POLYVINYL ALCOHOL 15 ML BOTTLE EACHEYE SCH ×3 (05:41→17:41)
[2022-03-16] MEDS: INSULIN REGULAR, HUMAN 100 UNIT/ML 3 ML VIAL SQ SCH ×3 (05:42→17:41)
--- NOTE | 2022-03-16 06:10 | NUR ---
PATIENT RECEIVED ON 28% AEROSOL T-TUBE THEN PLACED ON NOC VENT SUPPORT WITH SETTINGS OF CPAP 5, PS 10, 30%. SUCTIONED FOR MINIMAL, THICK, YELLOW SECRETIONS. GIVEN IN-LINE TREATMENTS WITH NO ADVERSE REACTIONS. AMBU BAG AT BEDSIDE. VENT ALARM AUDIBLE AND VISIBLE. TRACH CARE DONE. VENT PLUGGED INTO RED OUTLET. Addendum: 03/16/22 at 0611 by GIANNA ARRINGTON RT Amended: Links added.
--- NOTE | 2022-03-16 07:10 | NUR ---
pt received on vent in CPAP mode at ordered settings. pt taken off vent and placed on CA @ 28% fio2. pt mina. well, no signs of resp distress.
[2022-03-16 07:37] VITALS: BP 111/58
[2022-03-16] MEDS ORDERED: ENOXAPARIN SODIUM 40 MG/0.4 ML DISP.SYRIN SQ SCH (09:00)
[2022-03-16] MEDS ORDERED: ASPIRIN 81 MG TAB.CHEW GT SCH (09:00)
[2022-03-16] MEDS: FERROUS SULFATE (325 MG) 325 MG/TAB TABLET GT SCH (09:22)
[2022-03-16] MEDS: PROSOURCE / PROSTAT (PYXIS) 30 ML UDC GT SCH ×2 (09:22→16:55)
[2022-03-16] MEDS: PANTOPRAZOLE 40 MG/PACK PACK GT SCH (09:22)
[2022-03-16] MEDS: ZINC SULFATE 220 MG CAPSULE GT SCH (09:23)
[2022-03-16] MEDS: ASCORBIC ACID 500 MG TABLET GT SCH (09:23)
[2022-03-16] MEDS: VITAMINS A AND D 56.7 GM TUBE TP SCH ×2 (09:23→21:18)
--- NOTE | 2022-03-16 09:24 | NUR ---
Lovenox and Aspirin dose held this AM. Pt still noted with minimal tracheal bleeding. CN notified.
[2022-03-16 13:13] VITALS: BP 124/67
[2022-03-16] MEDS: GLUCERNA 1.2 1,000 ML BOTTLE GT PRN (17:41)
--- NOTE | 2022-03-16 18:00 | NUR ---
Facility Update: Nurse informed patient's Rosaline that, "A [facility]Ac[facility] employee tested positive for COVID-19 this week. Residents and staff will continue receiving routine testing as outlined by [facility] Department of Public Health. [facility] will continue to implement [facility] infection control protocols and continue screening employees before every shift. [facility] continues to follow infection control protocols and screen our residents and staff daily for symptoms". Patient's also informed that patient still having occasional tracheal bleeding and therefore Dr. Colón ordered to continue to hold Lovenox and Aspirin. Appreciated the call.
[2022-03-16 19:16] VITALS: BP 109/61
[2022-03-16] MEDS: MELATONIN 3 MG TABLET GT SCH (21:18)
[2022-03-16] MEDS: TAMSULOSIN 0.4 MG CAP.SR.24H GT SCH (21:18)
[2022-03-16] MEDS: ATORVASTATIN 40 MG TABLET GT SCH (21:18)
[2022-03-16] MEDS: INSULIN GLARGINE, 100 UNIT/ML CARTRIDGE SQ SCH (21:22)
[2022-03-17 00:06] VITALS: BP 115/62
[2022-03-17] MEDS: POLYVINYL ALCOHOL 15 ML BOTTLE EACHEYE SCH ×5 (00:36→23:34)
[2022-03-17] MEDS: BLOOD SUGAR DIAGNOSTIC 1 EACH STRIP IN SCH ×5 (00:36→23:34)
[2022-03-17] MEDS: ALBUTEROL FS 2.5 MG/3 ML VIAL.NEB NEB SCH ×4 (02:16→19:27)
[2022-03-17] MEDS: INSULIN REGULAR, HUMAN 100 UNIT/ML 3 ML VIAL SQ SCH ×3 (05:26→17:17)
[2022-03-17 07:19] VITALS: BP 111/55
[2022-03-17] MEDS: PANTOPRAZOLE 40 MG/PACK PACK GT SCH (08:52)
[2022-03-17] MEDS: VITAMINS A AND D 56.7 GM TUBE TP SCH ×2 (08:52→20:47)
[2022-03-17] MEDS: ASCORBIC ACID 500 MG TABLET GT SCH (08:52)
[2022-03-17] MEDS: FERROUS SULFATE (325 MG) 325 MG/TAB TABLET GT SCH (08:52)
[2022-03-17] MEDS: PROSOURCE / PROSTAT (PYXIS) 30 ML UDC GT SCH ×2 (08:52→17:15)
[2022-03-17] MEDS: ZINC SULFATE 220 MG CAPSULE GT SCH (08:52)
[2022-03-17 13:24] VITALS: BP 116/66
[2022-03-17] MEDS: GLUCERNA 1.2 1,000 ML BOTTLE GT PRN (14:58)
[2022-03-17] MEDS: ACETAMINOPHEN 650 MG/20 ML UDC- SA PATIENTS-PAIN ONLY GT PRN (17:32)
[2022-03-17 20:04] VITALS: BP 113/63
[2022-03-17] MEDS: MELATONIN 3 MG TABLET GT SCH (21:04)
[2022-03-17] MEDS: TAMSULOSIN 0.4 MG CAP.SR.24H GT SCH (21:04)
[2022-03-17] MEDS: ATORVASTATIN 40 MG TABLET GT SCH (21:04)
[2022-03-17] MEDS: INSULIN GLARGINE, 100 UNIT/ML CARTRIDGE SQ SCH (21:06)
[2022-03-18] VITALS: BP 96/60
[2022-03-18] MEDS: ALBUTEROL FS 2.5 MG/3 ML VIAL.NEB NEB SCH ×4 (00:37→20:16)
[2022-03-18] MEDS: POLYVINYL ALCOHOL 15 ML BOTTLE EACHEYE SCH ×4 (05:26→23:33)
[2022-03-18] MEDS: BLOOD SUGAR DIAGNOSTIC 1 EACH STRIP IN SCH ×4 (05:26→23:33)
[2022-03-18] MEDS: INSULIN REGULAR, HUMAN 100 UNIT/ML 3 ML VIAL SQ SCH ×3 (05:26→17:34)
[2022-03-18 07:39] VITALS: BP 160/68
--- NOTE | 2022-03-18 08:00 | NUR ---
PT WAS RECEIVED ON VENT. PT IS ALERT AND RESPONSIVE BUT UNABLE TO FOLLOW COMMANDS. UPON OBSERVATION PT LOOKS LIKE HE CAN NOT TOLERATE CA BECAUSE OF LOW BPM AND DURING ATTEMPT PT SATURATION WAS DROPPING. VENT IS PLUGGED IN RED OUTLET AND ALARMS ARE ON AND AUDIBLE. WILL MAINTAIN CURRENT THERAPY. CHARGE NURSE ROEL WAS NOTIFIED ABOUT VENT. Addendum: 03/18/22 at 1028 by SHELTON MARION RT Amended: Links added.
[2022-03-18] MEDS: ASCORBIC ACID 500 MG TABLET GT SCH (09:00)
[2022-03-18] MEDS: PANTOPRAZOLE 40 MG/PACK PACK GT SCH (09:00)
[2022-03-18] MEDS: ZINC SULFATE 220 MG CAPSULE GT SCH (09:00)
[2022-03-18] MEDS: VITAMINS A AND D 56.7 GM TUBE TP SCH ×2 (09:00→21:10)
[2022-03-18] MEDS: PROSOURCE / PROSTAT (PYXIS) 30 ML UDC GT SCH ×2 (09:00→17:24)
[2022-03-18] MEDS: FERROUS SULFATE (325 MG) 325 MG/TAB TABLET GT SCH (09:00)
[2022-03-18] MEDS: GLUCERNA 1.2 1,000 ML BOTTLE GT PRN (12:17)
[2022-03-18 12:39] VITALS: BP 130/60
[2022-03-18] MEDS: ASPIRIN 81 MG TAB.CHEW GT SCH (19:08)
[2022-03-18 19:21] VITALS: BP 117/68
[2022-03-18] MEDS: ENOXAPARIN SODIUM 40 MG/0.4 ML DISP.SYRIN SQ SCH (21:09)
[2022-03-18] MEDS: MELATONIN 3 MG TABLET GT SCH (21:10)
[2022-03-18] MEDS: ATORVASTATIN 40 MG TABLET GT SCH (21:10)
[2022-03-18] MEDS: TAMSULOSIN 0.4 MG CAP.SR.24H GT SCH (21:10)
[2022-03-18] MEDS: INSULIN GLARGINE, 100 UNIT/ML CARTRIDGE SQ SCH (21:14)
[2022-03-19] MEDS: ALBUTEROL FS 2.5 MG/3 ML VIAL.NEB NEB SCH ×4 (02:28→20:20)
[2022-03-19] MEDS: POLYVINYL ALCOHOL 15 ML BOTTLE EACHEYE SCH ×4 (05:28→23:32)
[2022-03-19] MEDS: INSULIN REGULAR, HUMAN 100 UNIT/ML 3 ML VIAL SQ SCH ×3 (05:29→18:22)
[2022-03-19] MEDS: BLOOD SUGAR DIAGNOSTIC 1 EACH STRIP IN SCH ×4 (05:29→23:32)
[2022-03-19] MEDS: GLUCERNA 1.2 1,000 ML BOTTLE GT PRN (05:30)
[2022-03-19 07:32] VITALS: BP 100/51
--- NOTE | 2022-03-19 07:40 | NUR ---
PT AWAKE AND ALERT. PT IN NO DISTRESS. PT ON VENT WHEN RECEIVED. BILATERAL BREATH SOUNDS AND BILAT CHEST RISE OBSERVED. VENT PLUGGED IN RED OUTLET AND ALARMS ARE ON AND AUDIBLE. WILL CONTINUE CURRENT THERAPY Addendum: 03/19/22 at 1238 by SHELTON MARION RT Amended: Links added.
--- NOTE | 2022-03-19 09:50 | NUR ---
Seen and examined by Dr. Colón, no new order given. Dr. Colón said to keep patient in the current vent setting for now. Covid-19 test result done on 03/16/22 is negative. No tracheal bleeding noted.
[2022-03-19] MEDS: ASCORBIC ACID 500 MG TABLET GT SCH (09:55)
[2022-03-19] MEDS: VITAMINS A AND D 56.7 GM TUBE TP SCH ×2 (09:55→20:43)
[2022-03-19] MEDS: PROSOURCE / PROSTAT (PYXIS) 30 ML UDC GT SCH ×2 (09:55→17:12)
[2022-03-19] MEDS: ZINC SULFATE 220 MG CAPSULE GT SCH (09:55)
[2022-03-19] MEDS: FERROUS SULFATE (325 MG) 325 MG/TAB TABLET GT SCH (09:55)
[2022-03-19] MEDS: ASPIRIN 81 MG TAB.CHEW GT SCH (09:55)
[2022-03-19] MEDS: PANTOPRAZOLE 40 MG/PACK PACK GT SCH (09:55)
[2022-03-19 12:08] VITALS: BP 130/70
--- NOTE | 2022-03-19 16:20 | NUR ---
Facility Update: PIERRE notified patient's family via email that: A sub-acute employee tested positive for COVID-19 on Wednesday, March 16, 2022. [facility] will continue following [facility] Department of Public Health's infection control guidelines and all staff and patients will continue response testing. PIERRE also sent latest visitation guidelines.
[2022-03-19 19:14] VITALS: BP 117/72
[2022-03-19] MEDS: ENOXAPARIN SODIUM 40 MG/0.4 ML DISP.SYRIN SQ SCH (20:43)
[2022-03-19] MEDS: MELATONIN 3 MG TABLET GT SCH (21:14)
[2022-03-19] MEDS: ATORVASTATIN 40 MG TABLET GT SCH (21:14)
[2022-03-19] MEDS: TAMSULOSIN 0.4 MG CAP.SR.24H GT SCH (21:14)
[2022-03-19] MEDS: INSULIN GLARGINE, 100 UNIT/ML CARTRIDGE SQ SCH (21:15)
[2022-03-20] MEDS: ALBUTEROL FS 2.5 MG/3 ML VIAL.NEB NEB SCH ×4 (02:22→19:31)
[2022-03-20] MEDS: GLUCERNA 1.2 1,000 ML BOTTLE GT PRN (03:41)
[2022-03-20] MEDS: BLOOD SUGAR DIAGNOSTIC 1 EACH STRIP IN SCH ×3 (05:30→17:21)
[2022-03-20] MEDS: POLYVINYL ALCOHOL 15 ML BOTTLE EACHEYE SCH ×3 (05:30→17:21)
[2022-03-20] MEDS: INSULIN REGULAR, HUMAN 100 UNIT/ML 3 ML VIAL SQ SCH ×3 (05:31→17:23)
[2022-03-20 07:37] VITALS: BP 149/99
--- NOTE | 2022-03-20 07:40 | NUR ---
PT RECEIVED ALERT AND STABLE. UNABLE TO FOLLOW COMMANDS. NO DISTRESS IS NOTED. PT WAS ON VENT WHEN RECEIVED, SWITCHED PT TO CA PER CURRENT ORDERS WILL CONTINUE TO MONITOR IF PT CAN TOLERATE CA IF NOT THEN WILL BE PLACED BACK TO VENT. BILATERAL CHEST RISE AND BREATH SOUNDS OBSERVED. WILL CONTINUE CURRENT THERAPY Addendum: 03/20/22 at 0944 by SHELTON MARION RT Amended: Links added.
[2022-03-20] MEDS: ASPIRIN 81 MG TAB.CHEW GT SCH (09:27)
[2022-03-20] MEDS: VITAMINS A AND D 56.7 GM TUBE TP SCH ×2 (09:28→21:15)
[2022-03-20] MEDS: FERROUS SULFATE (325 MG) 325 MG/TAB TABLET GT SCH (09:28)
[2022-03-20] MEDS: PROSOURCE / PROSTAT (PYXIS) 30 ML UDC GT SCH ×2 (09:28→17:21)
[2022-03-20] MEDS: ASCORBIC ACID 500 MG TABLET GT SCH (09:28)
[2022-03-20] MEDS: ZINC SULFATE 220 MG CAPSULE GT SCH (09:28)
[2022-03-20] MEDS: PANTOPRAZOLE 40 MG/PACK PACK GT SCH (09:28)
--- NOTE | 2022-03-20 11:40 | NUR ---
Seen and examined by Dr. Mack, no new order given. Tolerating cool aerosol, no SOB.
[2022-03-20 12:11] VITALS: BP 141/64
[2022-03-20] MEDS ORDERED: MELATONIN 3 MG TABLET GT SCH (14:50)
--- NOTE | 2022-03-20 16:13 | NUR ---
PT STABLE AND ALERT BUT UNABLE TO FOLLOW COMMANDS. PT TOLERATED TRANSITION TO CA WELL THROUGHOUT THE DAY. WILL CONTINUE CURRENT THERAPY. NO ADVERSE REACTIONS OBSERVED Addendum: 03/20/22 at 1615 by SHELTON MARION RT Amended: Links added.
[2022-03-20 20:00] VITALS: BP 129/62
[2022-03-20] MEDS: ENOXAPARIN SODIUM 40 MG/0.4 ML DISP.SYRIN SQ SCH (21:15)
[2022-03-20] MEDS: ATORVASTATIN 40 MG TABLET GT SCH (21:15)
[2022-03-20] MEDS: TAMSULOSIN 0.4 MG CAP.SR.24H GT SCH (21:15)
[2022-03-20] MEDS: MELATONIN 3 MG TABLET GT SCH (22:03)
[2022-03-20] MEDS: INSULIN GLARGINE, 100 UNIT/ML CARTRIDGE SQ SCH (22:04)
[2022-03-21] MEDS: BLOOD SUGAR DIAGNOSTIC 1 EACH STRIP IN SCH ×4 (00:29→17:56)
[2022-03-21] MEDS: POLYVINYL ALCOHOL 15 ML BOTTLE EACHEYE SCH ×4 (00:29→17:56)
[2022-03-21] MEDS: GLUCERNA 1.2 1,000 ML BOTTLE GT PRN ×2 (01:24→18:47)
[2022-03-21] MEDS: ALBUTEROL FS 2.5 MG/3 ML VIAL.NEB NEB SCH ×4 (02:06→20:03)
[2022-03-21] MEDS: INSULIN REGULAR, HUMAN 100 UNIT/ML 3 ML VIAL SQ SCH ×3 (05:38→17:58)
[2022-03-21 07:15] VITALS: BP 122/62
[2022-03-21] MEDS: PROSOURCE / PROSTAT (PYXIS) 30 ML UDC GT SCH ×2 (09:15→17:56)
[2022-03-21] MEDS: ZINC SULFATE 220 MG CAPSULE GT SCH (09:15)
[2022-03-21] MEDS: ASPIRIN 81 MG TAB.CHEW GT SCH (09:15)
[2022-03-21] MEDS: VITAMINS A AND D 56.7 GM TUBE TP SCH ×2 (09:15→21:07)
[2022-03-21] MEDS: ASCORBIC ACID 500 MG TABLET GT SCH (09:15)
[2022-03-21] MEDS: FERROUS SULFATE (325 MG) 325 MG/TAB TABLET GT SCH (09:15)
[2022-03-21] MEDS: PANTOPRAZOLE 40 MG/PACK PACK GT SCH (09:15)
--- NOTE | 2022-03-21 11:56 | NUR ---
Facility update: PIERRE notified patient's family via email that: "Please note that another employee tested positive for COVID-19. We are following [facility] infection control guidelines. All staff and patients will continue response testing." PIERRE also notified family that visitation Guidelines remain the same and sent them those guidelines.
[2022-03-21 12:15] VITALS: BP 116/60
[2022-03-21 19:21] VITALS: BP_SYST 62
[2022-03-21] MEDS: ENOXAPARIN SODIUM 40 MG/0.4 ML DISP.SYRIN SQ SCH (21:00)
[2022-03-21] MEDS: MELATONIN 3 MG TABLET GT SCH (21:07)
[2022-03-21] MEDS: TAMSULOSIN 0.4 MG CAP.SR.24H GT SCH (21:07)
[2022-03-21] MEDS: ATORVASTATIN 40 MG TABLET GT SCH (21:07)
[2022-03-21] MEDS: INSULIN GLARGINE, 100 UNIT/ML CARTRIDGE SQ SCH (21:25)
--- NOTE | 2022-03-21 22:47 | NUR ---
Lovenox and Aspirin was held this evening, RT reported that patient has minimal tracheal bleeding. Addendum: 03/21/22 at 2254 by MACI BEAUCHAMP RN Will continue to monitor.
[2022-03-22 00:08] VITALS: BP 97/59
[2022-03-22] MEDS: POLYVINYL ALCOHOL 15 ML BOTTLE EACHEYE SCH ×4 (00:08→17:17)
[2022-03-22] MEDS: BLOOD SUGAR DIAGNOSTIC 1 EACH STRIP IN SCH ×4 (00:08→17:17)
[2022-03-22] MEDS: ALBUTEROL FS 2.5 MG/3 ML VIAL.NEB NEB SCH ×4 (01:52→19:17)
[2022-03-22] MEDS: INSULIN REGULAR, HUMAN 100 UNIT/ML 3 ML VIAL SQ SCH ×3 (05:40→17:21)
[2022-03-22 07:30] VITALS: BP 118/73
[2022-03-22] MEDS: FERROUS SULFATE (325 MG) 325 MG/TAB TABLET GT SCH (09:18)
[2022-03-22] MEDS: VITAMINS A AND D 56.7 GM TUBE TP SCH ×2 (09:18→21:23)
[2022-03-22] MEDS: ZINC SULFATE 220 MG CAPSULE GT SCH (09:18)
[2022-03-22] MEDS: PANTOPRAZOLE 40 MG/PACK PACK GT SCH (09:18)
[2022-03-22] MEDS: ASCORBIC ACID 500 MG TABLET GT SCH (09:18)
[2022-03-22] MEDS: ASPIRIN 81 MG TAB.CHEW GT SCH (09:18)
[2022-03-22] MEDS: PROSOURCE / PROSTAT (PYXIS) 30 ML UDC GT SCH ×2 (09:18→17:17)
[2022-03-22 11:40] VITALS: BP 119/62
--- NOTE | 2022-03-22 14:24 | NUR ---
Notified Dr. Colón , patient has tracheal bleeding last night with slight bleeding this shift, said to hold it for two days, to [id number] Lovenox and Aspirin tomorrow. Endorsed to monitor.
--- NOTE | 2022-03-22 14:28 | NUR ---
INTERDISCIPLINARY PLAN OF CARE CONFERENCE took place today. The patients , Rosaline [phone] Colón and Interdisciplinary team discussed the plan of care in detail. Current orders as well as treatments and medications were reviewed.
[2022-03-22] MEDS: GLUCERNA 1.2 1,000 ML BOTTLE GT PRN (17:21)
[2022-03-22 19:53] VITALS: BP 137/99
[2022-03-22] MEDS: ENOXAPARIN SODIUM 40 MG/0.4 ML DISP.SYRIN SQ SCH (21:00)
--- NOTE | 2022-03-22 21:00 | NUR ---
Per MD order, held Lovenox injection d/t tracheal bleeding.
[2022-03-22] MEDS: ATORVASTATIN 40 MG TABLET GT SCH (21:23)
[2022-03-22] MEDS: TAMSULOSIN 0.4 MG CAP.SR.24H GT SCH (21:23)
[2022-03-22] MEDS: MELATONIN 3 MG TABLET GT SCH (21:23)
[2022-03-22] MEDS: INSULIN GLARGINE, 100 UNIT/ML CARTRIDGE SQ SCH (21:48)
--- NOTE | 2022-03-22 21:54 | NUR ---
BS 90, routine insulin lantus 14 units held this evening. no s/s of distress noted. will continue to monitor closely. charge nurse aware.
[2022-03-23] MEDS: POLYVINYL ALCOHOL 15 ML BOTTLE EACHEYE SCH ×5 (00:06→23:48)
[2022-03-23] MEDS: BLOOD SUGAR DIAGNOSTIC 1 EACH STRIP IN SCH ×5 (00:06→23:48)
[2022-03-23 00:30] VITALS: BP 115/59
[2022-03-23] MEDS: ALBUTEROL FS 2.5 MG/3 ML VIAL.NEB NEB SCH ×4 (01:08→19:09)
[2022-03-23] MEDS: INSULIN REGULAR, HUMAN 100 UNIT/ML 3 ML VIAL SQ SCH ×3 (05:38→17:54)
--- NOTE | 2022-03-23 06:58 | NUR ---
RT and Nurse on duty reported minimal bleeding in patients tracheal site. Endorsed to the oncoming shift. Will continue to monitor.
[2022-03-23 07:40] VITALS: BP 118/60
--- NOTE | 2022-03-23 08:52 | NUR ---
RT Agrawal on duty reported minimal bleeding in patients tracheal site. RAS Hermosillo notified with instructions to hold Aspirin morning dose. Will continue to monitor.
[2022-03-23] MEDS: PANTOPRAZOLE 40 MG/PACK PACK GT SCH (08:53)
[2022-03-23] MEDS: FERROUS SULFATE (325 MG) 325 MG/TAB TABLET GT SCH (08:53)
[2022-03-23] MEDS: VITAMINS A AND D 56.7 GM TUBE TP SCH ×2 (08:53→21:36)
[2022-03-23] MEDS: PROSOURCE / PROSTAT (PYXIS) 30 ML UDC GT SCH ×2 (08:53→17:53)
[2022-03-23] MEDS: ZINC SULFATE 220 MG CAPSULE GT SCH (08:53)
[2022-03-23] MEDS: ASCORBIC ACID 500 MG TABLET GT SCH (08:53)
[2022-03-23] MEDS: ASPIRIN 81 MG TAB.CHEW GT SCH ×2 (08:53→08:54)
[2022-03-23] MEDS: GLUCERNA 1.2 1,000 ML BOTTLE GT PRN (08:54)
[2022-03-23 12:03] VITALS: BP 141/59
[2022-03-23 19:03] VITALS: BP 113/60
[2022-03-23] MEDS: ENOXAPARIN SODIUM 40 MG/0.4 ML DISP.SYRIN SQ SCH (21:00)
[2022-03-23] MEDS: ATORVASTATIN 40 MG TABLET GT SCH (21:36)
[2022-03-23] MEDS: MELATONIN 3 MG TABLET GT SCH (21:36)
[2022-03-23] MEDS: TAMSULOSIN 0.4 MG CAP.SR.24H GT SCH (21:36)
[2022-03-23] MEDS: INSULIN GLARGINE, 100 UNIT/ML CARTRIDGE SQ SCH (21:37)
--- NOTE | 2022-03-23 21:47 | NUR ---
Lovenox held due to tracheal bleeding. Charge Nurse aware.
[2022-03-24] MEDS: ALBUTEROL FS 2.5 MG/3 ML VIAL.NEB NEB SCH ×4 (01:47→20:05)
[2022-03-24] MEDS: POLYVINYL ALCOHOL 15 ML BOTTLE EACHEYE SCH ×4 (05:26→23:38)
[2022-03-24] MEDS: BLOOD SUGAR DIAGNOSTIC 1 EACH STRIP IN SCH ×4 (05:26→23:38)
[2022-03-24] MEDS: GLUCERNA 1.2 1,000 ML BOTTLE GT PRN (05:27)
[2022-03-24] MEDS: INSULIN REGULAR, HUMAN 100 UNIT/ML 3 ML VIAL SQ SCH ×3 (05:27→17:47)
--- NOTE | 2022-03-24 06:20 | NUR ---
PATIENT RECEIVED ON 28% AEROSOL T-TUBE THEN PLACED BACK ON NOC VENT SUPPORT WITH SETTINGS OF CPAP 5, PS 10, 30%. SUCTIONED FOR MODERATE, THICK, RED-TINGED SECRETIONS. GIVEN IN-LINE TREATMENTS WITH NO ADVERSE REACTIONS. AMBU BAG AT BEDSIDE. VENT ALARM AUDIBLE AND VISIBLE. TRACH CARE DONE. VENT PLUGGED INTO RED OUTLET. Addendum: 03/24/22 at 0621 by GIANNA ARRINGTON RT Amended: Links added.
[2022-03-24 07:37] VITALS: BP 107/56
[2022-03-24] MEDS: ASPIRIN 81 MG TAB.CHEW GT SCH (09:00)
[2022-03-24] MEDS: FERROUS SULFATE (325 MG) 325 MG/TAB TABLET GT SCH (09:21)
[2022-03-24] MEDS: PROSOURCE / PROSTAT (PYXIS) 30 ML UDC GT SCH ×2 (09:21→17:08)
[2022-03-24] MEDS: PANTOPRAZOLE 40 MG/PACK PACK GT SCH (09:23)
[2022-03-24] MEDS: VITAMINS A AND D 56.7 GM TUBE TP SCH ×2 (09:23→20:07)
[2022-03-24] MEDS: ASCORBIC ACID 500 MG TABLET GT SCH (09:23)
[2022-03-24] MEDS: ZINC SULFATE 220 MG CAPSULE GT SCH (09:23)
[2022-03-24 15:07] VITALS: BP 98/55
[2022-03-24 19:43] VITALS: BP 110/56
[2022-03-24] MEDS: ENOXAPARIN SODIUM 40 MG/0.4 ML DISP.SYRIN SQ SCH ×2 (20:06→20:11)
[2022-03-24] MEDS: MELATONIN 3 MG TABLET GT SCH (21:09)
[2022-03-24] MEDS: ATORVASTATIN 40 MG TABLET GT SCH (21:09)
[2022-03-24] MEDS: TAMSULOSIN 0.4 MG CAP.SR.24H GT SCH (21:09)
[2022-03-24] MEDS: INSULIN GLARGINE, 100 UNIT/ML CARTRIDGE SQ SCH (21:10)
[2022-03-25] MEDS: GLUCERNA 1.2 1,000 ML BOTTLE GT PRN ×2 (01:14→17:45)
[2022-03-25] MEDS: ALBUTEROL FS 2.5 MG/3 ML VIAL.NEB NEB SCH ×4 (02:10→20:26)
[2022-03-25] MEDS: BLOOD SUGAR DIAGNOSTIC 1 EACH STRIP IN SCH ×4 (06:04→23:52)
[2022-03-25] MEDS: POLYVINYL ALCOHOL 15 ML BOTTLE EACHEYE SCH ×4 (06:04→23:45)
[2022-03-25] MEDS: INSULIN REGULAR, HUMAN 100 UNIT/ML 3 ML VIAL SQ SCH ×3 (06:06→18:13)
--- NOTE | 2022-03-25 07:40 | NUR ---
RT NOTE: PT RECEIVED STABLE AND NO DISTRESS. PT IS SUPPOSE TO BE ON CA DURING THE DAY. REMOVED FROM VENT AND PLACED ON CA AT CORRECT LITER FLOW WITH CUFF DEFLATED. UNABLE TO FOLLOW COMMANDS. BAG AND MASK AT BEDSIDE WITH SPARE TRACH. WILL CONTINUE CURRENT THERAPY. NO CHANGES AT THIS TIME Addendum: 03/25/22 at 0939 by SHELTON MARION RT Amended: Links added.
[2022-03-25 07:41] VITALS: BP 116/73
[2022-03-25] MEDS: VITAMINS A AND D 56.7 GM TUBE TP SCH ×2 (09:52→21:11)
[2022-03-25] MEDS: ASCORBIC ACID 500 MG TABLET GT SCH (09:52)
[2022-03-25] MEDS: PROSOURCE / PROSTAT (PYXIS) 30 ML UDC GT SCH ×2 (09:52→17:45)
[2022-03-25] MEDS: ASPIRIN 81 MG TAB.CHEW GT SCH (09:52)
[2022-03-25] MEDS: PANTOPRAZOLE 40 MG/PACK PACK GT SCH (09:52)
[2022-03-25] MEDS: ZINC SULFATE 220 MG CAPSULE GT SCH (09:52)
[2022-03-25] MEDS: FERROUS SULFATE (325 MG) 325 MG/TAB TABLET GT SCH (09:52)
[2022-03-25 12:01] VITALS: BP 132/64
--- NOTE | 2022-03-25 12:17 | NUR ---
Notified SHAHRAM Christine that pt was noted with blood-tinged secretions from the trach. Pt did not have tracheal bleeding earlier this morning. SHAHRAM Christine ordered to hold Lovenox and Aspirin. Notified pt's .
[2022-03-25 20:16] VITALS: BP 107/68
[2022-03-25] MEDS: MELATONIN 3 MG TABLET GT SCH (21:12)
[2022-03-25] MEDS: ATORVASTATIN 40 MG TABLET GT SCH (21:13)
[2022-03-25] MEDS: TAMSULOSIN 0.4 MG CAP.SR.24H GT SCH (21:13)
[2022-03-25] MEDS: INSULIN GLARGINE, 100 UNIT/ML CARTRIDGE SQ SCH (21:21)
[2022-03-26] MEDS: ALBUTEROL FS 2.5 MG/3 ML VIAL.NEB NEB SCH ×4 (01:52→20:08)
[2022-03-26] MEDS: BLOOD SUGAR DIAGNOSTIC 1 EACH STRIP IN SCH ×4 (05:27→23:27)
[2022-03-26] MEDS: POLYVINYL ALCOHOL 15 ML BOTTLE EACHEYE SCH ×4 (05:27→23:27)
[2022-03-26] MEDS: INSULIN REGULAR, HUMAN 100 UNIT/ML 3 ML VIAL SQ SCH ×3 (05:30→18:12)
--- NOTE | 2022-03-26 07:30 | NUR ---
RT NOTE: PT RECEIVED STABLE AND NO DISTRESS. PT IS PLACED ON CA DURING THE DAY. REMOVED FROM VENT AND PLACED ON CA AT CORRECT LITER FLOW WITH CUFF DEFLATED. UNABLE TO FOLLOW COMMANDS. BAG AND MASK AT BEDSIDE WITH SPARE TRACH. WILL CONTINUE CURRENT THERAPY. BLOOD SPOTTING ON SUCTIONING. NO CHANGES AT THIS TIME Addendum: 03/26/22 at 0936 by SHELTON MARION RT Amended: Links added.
[2022-03-26 07:41] VITALS: BP 123/62
[2022-03-26] MEDS: PROSOURCE / PROSTAT (PYXIS) 30 ML UDC GT SCH ×2 (09:48→17:32)
[2022-03-26] MEDS: FERROUS SULFATE (325 MG) 325 MG/TAB TABLET GT SCH (09:48)
[2022-03-26] MEDS: PANTOPRAZOLE 40 MG/PACK PACK GT SCH (09:48)
[2022-03-26] MEDS: ASCORBIC ACID 500 MG TABLET GT SCH (09:48)
[2022-03-26] MEDS: VITAMINS A AND D 56.7 GM TUBE TP SCH ×2 (09:48→21:18)
[2022-03-26] MEDS: ZINC SULFATE 220 MG CAPSULE GT SCH (09:48)
--- NOTE | 2022-03-26 12:00 | NUR ---
Received order from SHAHRAM Christine to use a red theodore catheter for suctioning pt due to tracheal bleeding.
--- NOTE | 2022-03-26 13:30 | NUR ---
RT NOTE: PT IS PRODUCING COPIOUS AMOUNT OF SPUTUM THAT IS THICK AND FROTHY AT TIMES. PT HAS LIGHT SPOTTING BLEEDING DURING SUCTIONING. CHARGE NURSE ROEL WAS NOTIFIED ABOUT THE CONCERN. Addendum: 03/26/22 at 1614 by SHELTON MARION RT Amended: Links added.
[2022-03-26 15:55] VITALS: BP 111/62
--- NOTE | 2022-03-26 16:37 | NUR ---
Pt noted with minimal tracheal bleeding. Pt's nurse and RT reported that pt is sometimes seen holding or moving his trach tubings around and trach tube gets pulled to the side which could be causing the tracheal bleeding. Trach tube properly secured with trach ties and realigned as needed.
[2022-03-26] MEDS: GLUCERNA 1.2 1,000 ML BOTTLE GT PRN (17:32)
[2022-03-26] MEDS: POLYETHYLENE GLYCOL 3350 17 GM POWD.PACK GT PRN (19:01)
[2022-03-26 19:16] VITALS: BP 116/66
[2022-03-26] MEDS: MELATONIN 3 MG TABLET GT SCH (21:19)
[2022-03-26] MEDS: TAMSULOSIN 0.4 MG CAP.SR.24H GT SCH (21:20)
[2022-03-26] MEDS: ATORVASTATIN 40 MG TABLET GT SCH (21:20)
[2022-03-26] MEDS: INSULIN GLARGINE, 100 UNIT/ML CARTRIDGE SQ SCH (21:28)
[2022-03-27] MEDS: ALBUTEROL FS 2.5 MG/3 ML VIAL.NEB NEB SCH ×4 (02:10→20:04)
[2022-03-27] MEDS: POLYVINYL ALCOHOL 15 ML BOTTLE EACHEYE SCH ×3 (05:29→17:17)
[2022-03-27] MEDS: BLOOD SUGAR DIAGNOSTIC 1 EACH STRIP IN SCH ×3 (05:29→17:17)
[2022-03-27] MEDS: INSULIN REGULAR, HUMAN 100 UNIT/ML 3 ML VIAL SQ SCH ×3 (05:30→17:54)
[2022-03-27 07:31] VITALS: BP 109/58
--- NOTE | 2022-03-27 07:51 | NUR ---
PLACED PT ON COOL AEROSOL DURING THE DAY PER ORDERS. PT STABLE. NO RESPIRATORY DISTRESS OR SOB NOTED AT THIS TIME. WILL CONTINUE TO MONITOR PT. Addendum: 03/27/22 at 0752 by ROLANDO JJ RT Amended: Links added.
[2022-03-27] MEDS: ZINC SULFATE 220 MG CAPSULE GT SCH (09:28)
[2022-03-27] MEDS: FERROUS SULFATE (325 MG) 325 MG/TAB TABLET GT SCH (09:28)
[2022-03-27] MEDS: PROSOURCE / PROSTAT (PYXIS) 30 ML UDC GT SCH ×2 (09:28→17:17)
[2022-03-27] MEDS: ASCORBIC ACID 500 MG TABLET GT SCH (09:28)
[2022-03-27] MEDS: PANTOPRAZOLE 40 MG/PACK PACK GT SCH (09:28)
[2022-03-27] MEDS: VITAMINS A AND D 56.7 GM TUBE TP SCH ×2 (09:28→21:30)
--- NOTE | 2022-03-27 14:59 | NUR ---
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 [facility] will continue following [facility] Department of Public Health's infection control guidelines and all staff and patients will continue response testing and being screened for symptoms. PIERRE also sent latest visitation guidelines. PIERRE also notified family that there is a second COVID-19 Moderna Booster available for patients and to call the nurses station if interested.
[2022-03-27] MEDS: GLUCERNA 1.2 1,000 ML BOTTLE GT PRN (17:54)
[2022-03-27] MEDS: BISACODYL SUPP (10 MG) 10 MG/SUPP.RECT SUPP.RECT RC PRN (18:46)
[2022-03-27 19:17] VITALS: BP 113/61
[2022-03-27] MEDS: ATORVASTATIN 40 MG TABLET GT SCH (21:30)
[2022-03-27] MEDS: MELATONIN 3 MG TABLET GT SCH (21:30)
[2022-03-27] MEDS: TAMSULOSIN 0.4 MG CAP.SR.24H GT SCH (21:30)
[2022-03-27] MEDS: INSULIN GLARGINE, 100 UNIT/ML CARTRIDGE SQ SCH (22:00)
--- NOTE | 2022-03-27 22:29 | NUR ---
BS 77, routine insulin lantus 14 units held this evening. pt awake, calm, no s/s of distress noted. will monitor closely. charge nurse aware.
[2022-03-28 00:15] VITALS: BP 107/59
[2022-03-28] MEDS: BLOOD SUGAR DIAGNOSTIC 1 EACH STRIP IN SCH ×5 (00:49→23:55)
[2022-03-28] MEDS: POLYVINYL ALCOHOL 15 ML BOTTLE EACHEYE SCH ×4 (00:49→17:22)
[2022-03-28] MEDS: ALBUTEROL FS 2.5 MG/3 ML VIAL.NEB NEB SCH ×4 (01:56→20:12)
[2022-03-28] MEDS: INSULIN REGULAR, HUMAN 100 UNIT/ML 3 ML VIAL SQ SCH ×3 (05:59→17:23)
[2022-03-28 07:26] VITALS: BP 107/61
[2022-03-28] MEDS: VITAMINS A AND D 56.7 GM TUBE TP SCH ×2 (09:21→21:39)
[2022-03-28] MEDS: FERROUS SULFATE (325 MG) 325 MG/TAB TABLET GT SCH (09:21)
[2022-03-28] MEDS: ZINC SULFATE 220 MG CAPSULE GT SCH (09:21)
[2022-03-28] MEDS: PANTOPRAZOLE 40 MG/PACK PACK GT SCH (09:21)
[2022-03-28] MEDS: ASCORBIC ACID 500 MG TABLET GT SCH (09:21)
[2022-03-28] MEDS: PROSOURCE / PROSTAT (PYXIS) 30 ML UDC GT SCH ×2 (09:21→17:22)
[2022-03-28 12:28] VITALS: BP 102/57
[2022-03-28] MEDS: GLUCERNA 1.2 1,000 ML BOTTLE GT PRN (17:23)
[2022-03-28 19:19] VITALS: BP 122/68
[2022-03-28] MEDS: ATORVASTATIN 40 MG TABLET GT SCH (22:05)
[2022-03-28] MEDS: TAMSULOSIN 0.4 MG CAP.SR.24H GT SCH (22:05)
[2022-03-28] MEDS: MELATONIN 3 MG TABLET GT SCH (22:05)
[2022-03-28] MEDS: INSULIN GLARGINE, 100 UNIT/ML CARTRIDGE SQ SCH (22:06)
[2022-03-29] MEDS: POLYVINYL ALCOHOL 15 ML BOTTLE EACHEYE SCH ×4 (00:10→17:59)
[2022-03-29 00:34] VITALS: BP 101/57
[2022-03-29] MEDS: ALBUTEROL FS 2.5 MG/3 ML VIAL.NEB NEB SCH ×4 (02:29→19:03)
[2022-03-29] MEDS: BLOOD SUGAR DIAGNOSTIC 1 EACH STRIP IN SCH ×3 (05:38→17:59)
[2022-03-29] MEDS: INSULIN REGULAR, HUMAN 100 UNIT/ML 3 ML VIAL SQ SCH ×3 (05:40→18:00)
[2022-03-29 07:10] VITALS: BP 102/66
[2022-03-29] MEDS: FERROUS SULFATE (325 MG) 325 MG/TAB TABLET GT SCH (09:30)
[2022-03-29] MEDS: PROSOURCE / PROSTAT (PYXIS) 30 ML UDC GT SCH ×2 (09:30→17:59)
[2022-03-29] MEDS: VITAMINS A AND D 56.7 GM TUBE TP SCH ×2 (09:30→21:25)
[2022-03-29] MEDS: PANTOPRAZOLE 40 MG/PACK PACK GT SCH (09:30)
[2022-03-29] MEDS: ZINC SULFATE 220 MG CAPSULE GT SCH (09:30)
[2022-03-29] MEDS: ASCORBIC ACID 500 MG TABLET GT SCH (09:30)
[2022-03-29 12:32] VITALS: BP 117/67
[2022-03-29] MEDS: GLUCERNA 1.2 1,000 ML BOTTLE GT PRN (12:57)
--- NOTE | 2022-03-29 14:10 | NUR ---
Pt was placed on ventilator at ordered settings due to increased work of breathing, respiratory rate and shortness of breath while on CA via T-Piece. Will continue to monitor. Addendum: 03/29/22 at 1541 by CLARKE LEVY RT Pt has been placed on vent in CPAP mode. SpO2 98%, RR 19, HR 73.
--- NOTE | 2022-03-29 14:45 | NUR ---
Dr. Colón made aware that patient placed on CPAP due to increase work of breathing, no further difficulty in breathing observed after being placed in CPAP mode. No further tracheal bleeding noted, Dr. Colón ordered to resume Lovenox and Aspirin. Order carried out.
--- NOTE | 2022-03-29 14:48 | NUR ---
Routine monthly trach tube change done, Shiley size 8 cuffed. Airway is patent and secured. Pt had a small amount of bleeding. No resp. distress noted. RN notified of routine change. RT Millad assisted.
[2022-03-29] MEDS: ACETAMINOPHEN 650 MG/20 ML UDC- SA PATIENTS-PAIN ONLY GT PRN (18:18)
[2022-03-29 20:56] VITALS: BP 113/56
[2022-03-29] MEDS: MELATONIN 3 MG TABLET GT SCH (21:25)
[2022-03-29] MEDS: ATORVASTATIN 40 MG TABLET GT SCH (21:25)
[2022-03-29] MEDS: ENOXAPARIN SODIUM 40 MG/0.4 ML DISP.SYRIN SQ SCH (21:25)
[2022-03-29] MEDS: TAMSULOSIN 0.4 MG CAP.SR.24H GT SCH (21:25)
[2022-03-29] MEDS: INSULIN GLARGINE, 100 UNIT/ML CARTRIDGE SQ SCH (21:55)
[2022-03-30] MEDS: POLYVINYL ALCOHOL 15 ML BOTTLE EACHEYE SCH ×5 (00:18→23:52)
[2022-03-30] MEDS: BLOOD SUGAR DIAGNOSTIC 1 EACH STRIP IN SCH ×5 (00:18→23:52)
[2022-03-30] MEDS: ALBUTEROL FS 2.5 MG/3 ML VIAL.NEB NEB SCH ×4 (00:53→20:29)
[2022-03-30] MEDS: INSULIN REGULAR, HUMAN 100 UNIT/ML 3 ML VIAL SQ SCH ×3 (05:38→17:31)
[2022-03-30] MEDS: GLUCERNA 1.2 1,000 ML BOTTLE GT PRN ×2 (05:39→18:26)
[2022-03-30 07:31] VITALS: BP 126/56
[2022-03-30] MEDS: ASPIRIN 81 MG TAB.CHEW GT SCH (09:00)
[2022-03-30] MEDS: PANTOPRAZOLE 40 MG/PACK PACK GT SCH (09:00)
[2022-03-30] MEDS: VITAMINS A AND D 56.7 GM TUBE TP SCH ×2 (09:00→21:20)
[2022-03-30] MEDS: ZINC SULFATE 220 MG CAPSULE GT SCH (09:00)
[2022-03-30] MEDS: FERROUS SULFATE (325 MG) 325 MG/TAB TABLET GT SCH (09:00)
[2022-03-30] MEDS: ASCORBIC ACID 500 MG TABLET GT SCH (09:00)
[2022-03-30] MEDS: PROSOURCE / PROSTAT (PYXIS) 30 ML UDC GT SCH ×2 (09:00→17:25)
[2022-03-30 13:17] VITALS: BP 113/59
[2022-03-30 19:58] VITALS: BP 138/67
[2022-03-30] MEDS: MELATONIN 3 MG TABLET GT SCH (21:20)
[2022-03-30] MEDS: ENOXAPARIN SODIUM 40 MG/0.4 ML DISP.SYRIN SQ SCH (21:20)
[2022-03-30] MEDS: ATORVASTATIN 40 MG TABLET GT SCH (21:20)
[2022-03-30] MEDS: TAMSULOSIN 0.4 MG CAP.SR.24H GT SCH (21:20)
[2022-03-30] MEDS: INSULIN GLARGINE, 100 UNIT/ML CARTRIDGE SQ SCH (21:53)
[2022-03-31] MEDS: ALBUTEROL FS 2.5 MG/3 ML VIAL.NEB NEB SCH ×4 (01:49→19:11)
[2022-03-31] MEDS: BLOOD SUGAR DIAGNOSTIC 1 EACH STRIP IN SCH ×4 (05:49→23:53)
[2022-03-31] MEDS: POLYVINYL ALCOHOL 15 ML BOTTLE EACHEYE SCH ×4 (05:49→23:53)
[2022-03-31] MEDS: INSULIN REGULAR, HUMAN 100 UNIT/ML 3 ML VIAL SQ SCH ×3 (05:51→17:54)
[2022-03-31 07:12] VITALS: BP 140/71
--- NOTE | 2022-03-31 07:40 | NUR ---
RT NOTE: PT RECEIVED ALERT AND STABLE. CA WAS CHANGED DUE TO DAMAGE TO THE UNIT. UNABLE TO FOLLOW INSTRUCTION. PT ON CA AND ON CORRECT LITER FLOW. BAG AND MASK AT BEDSIDE AND SPARE TRACH. PT NOT IN DISTRESS. WILL CONTINUE CURRENT THERAPY Addendum: 03/31/22 at 0931 by SHELTON MARION RT Amended: Links added.
[2022-03-31] MEDS: PROSOURCE / PROSTAT (PYXIS) 30 ML UDC GT SCH ×2 (09:38→17:29)
[2022-03-31] MEDS: FERROUS SULFATE (325 MG) 325 MG/TAB TABLET GT SCH (09:38)
[2022-03-31] MEDS: ASPIRIN 81 MG TAB.CHEW GT SCH (09:38)
[2022-03-31] MEDS: ASCORBIC ACID 500 MG TABLET GT SCH (09:38)
[2022-03-31] MEDS: ZINC SULFATE 220 MG CAPSULE GT SCH (09:38)
[2022-03-31] MEDS: VITAMINS A AND D 56.7 GM TUBE TP SCH ×2 (09:38→21:46)
[2022-03-31] MEDS: PANTOPRAZOLE 40 MG/PACK PACK GT SCH (09:38)
[2022-03-31 11:04] VITALS: BP 134/63
[2022-03-31] MEDS: GLUCERNA 1.2 1,000 ML BOTTLE GT PRN (17:25)
[2022-03-31 19:49] VITALS: BP 113/56
[2022-03-31] MEDS: ATORVASTATIN 40 MG TABLET GT SCH (21:46)
[2022-03-31] MEDS: TAMSULOSIN 0.4 MG CAP.SR.24H GT SCH (21:46)
[2022-03-31] MEDS: MELATONIN 3 MG TABLET GT SCH (21:47)
[2022-03-31] MEDS: ENOXAPARIN SODIUM 40 MG/0.4 ML DISP.SYRIN SQ SCH (21:48)
[2022-03-31] MEDS: INSULIN GLARGINE, 100 UNIT/ML CARTRIDGE SQ SCH (22:11)
[2022-03-31 23:56] VITALS: BP 118/60
[2022-04-01] MEDS: ALBUTEROL FS 2.5 MG/3 ML VIAL.NEB NEB SCH ×4 (00:40→19:49)
[2022-04-01] MEDS: POLYVINYL ALCOHOL 15 ML BOTTLE EACHEYE SCH ×4 (06:03→23:27)
[2022-04-01] MEDS: BLOOD SUGAR DIAGNOSTIC 1 EACH STRIP IN SCH ×4 (06:03→23:27)
[2022-04-01] MEDS: INSULIN REGULAR, HUMAN 100 UNIT/ML 3 ML VIAL SQ SCH ×3 (06:04→18:00)
[2022-04-01 07:22] VITALS: BP 116/66
[2022-04-01] MEDS: PROSOURCE / PROSTAT (PYXIS) 30 ML UDC GT SCH ×2 (08:46→16:44)
[2022-04-01] MEDS: FERROUS SULFATE (325 MG) 325 MG/TAB TABLET GT SCH (08:46)
[2022-04-01] MEDS: ASPIRIN 81 MG TAB.CHEW GT SCH (08:46)
[2022-04-01] MEDS: VITAMINS A AND D 56.7 GM TUBE TP SCH ×2 (08:47→21:13)
[2022-04-01] MEDS: ASCORBIC ACID 500 MG TABLET GT SCH (08:47)
[2022-04-01] MEDS: PANTOPRAZOLE 40 MG/PACK PACK GT SCH (08:47)
[2022-04-01] MEDS: ZINC SULFATE 220 MG CAPSULE GT SCH (08:47)
[2022-04-01 12:56] VITALS: BP 93/52
[2022-04-01] MEDS: GLUCERNA 1.2 1,000 ML BOTTLE GT PRN (13:52)
--- NOTE | 2022-04-01 18:30 | NUR ---
Notified SHAHRAM Christine that pt's blood sugar 75. She ordered to hold Novolin R 2 units SC for blood sugar less than or equal to 80.
[2022-04-01 19:42] VITALS: BP 120/63
[2022-04-01] MEDS: ATORVASTATIN 40 MG TABLET GT SCH (21:13)
[2022-04-01] MEDS: MELATONIN 3 MG TABLET GT SCH (21:13)
[2022-04-01] MEDS: TAMSULOSIN 0.4 MG CAP.SR.24H GT SCH (21:13)
[2022-04-01] MEDS: ENOXAPARIN SODIUM 40 MG/0.4 ML DISP.SYRIN SQ SCH (21:14)
[2022-04-01] MEDS: INSULIN GLARGINE, 100 UNIT/ML CARTRIDGE SQ SCH (21:32)
[2022-04-02] MEDS: ALBUTEROL FS 2.5 MG/3 ML VIAL.NEB NEB SCH ×4 (02:02→19:52)
[2022-04-02] MEDS: POLYVINYL ALCOHOL 15 ML BOTTLE EACHEYE SCH ×4 (05:37→23:39)
[2022-04-02] MEDS: BLOOD SUGAR DIAGNOSTIC 1 EACH STRIP IN SCH ×4 (05:37→23:39)
[2022-04-02] MEDS: INSULIN REGULAR, HUMAN 100 UNIT/ML 3 ML VIAL SQ SCH ×3 (05:38→17:58)
[2022-04-02 07:32] VITALS: BP 121/81
[2022-04-02] MEDS: ASCORBIC ACID 500 MG TABLET GT SCH (09:51)
[2022-04-02] MEDS: FERROUS SULFATE (325 MG) 325 MG/TAB TABLET GT SCH (09:51)
[2022-04-02] MEDS: PROSOURCE / PROSTAT (PYXIS) 30 ML UDC GT SCH ×2 (09:51→16:27)
[2022-04-02] MEDS: ASPIRIN 81 MG TAB.CHEW GT SCH (09:51)
[2022-04-02] MEDS: VITAMINS A AND D 56.7 GM TUBE TP SCH ×2 (09:51→20:31)
[2022-04-02] MEDS: PANTOPRAZOLE 40 MG/PACK PACK GT SCH (09:51)
[2022-04-02] MEDS: ZINC SULFATE 220 MG CAPSULE GT SCH (09:51)
[2022-04-02] MEDS: GLUCERNA 1.2 1,000 ML BOTTLE GT PRN (10:18)
[2022-04-02 12:31] VITALS: BP 93/51
--- NOTE | 2022-04-02 16:40 | NUR ---
Pt was noted with tracheal bleeding. Notified Dr Colón. He ordered to hold Lovenox and Aspirin for 72 hours. Notified pt's .
[2022-04-02 18:27] VITALS: BP 108/59
--- NOTE | 2022-04-02 18:29 | NUR ---
Notified MANAGER SUPPORT SERVICES Reshma Christine that pt has tracheal bleeding, Dr Colón ordered to hold Lovenox and Aspirin for 72 hours. Notified her also that pt has increased secretions and cough. Pt afebrile, T 98.0 F.
--- NOTE | 2022-04-02 18:38 | NUR ---
SHAHRAM Christine ordered CXR. Notified pt's .
[2022-04-02 20:22] VITALS: BP 117/72
[2022-04-02] MEDS: TAMSULOSIN 0.4 MG CAP.SR.24H GT SCH (21:07)
[2022-04-02] MEDS: ATORVASTATIN 40 MG TABLET GT SCH (21:07)
[2022-04-02] MEDS: MELATONIN 3 MG TABLET GT SCH (21:08)
[2022-04-02] MEDS: INSULIN GLARGINE, 100 UNIT/ML CARTRIDGE SQ SCH (21:16)
[2022-04-03] MEDS: ALBUTEROL FS 2.5 MG/3 ML VIAL.NEB NEB SCH ×4 (01:55→20:15)
[2022-04-03] MEDS: GLUCERNA 1.2 1,000 ML BOTTLE GT PRN ×2 (04:04→17:41)
[2022-04-03] MEDS: POLYVINYL ALCOHOL 15 ML BOTTLE EACHEYE SCH ×4 (05:22→23:50)
[2022-04-03] MEDS: BLOOD SUGAR DIAGNOSTIC 1 EACH STRIP IN SCH ×4 (05:22→23:50)
[2022-04-03] MEDS: INSULIN REGULAR, HUMAN 100 UNIT/ML 3 ML VIAL SQ SCH ×3 (05:23→17:29)
[2022-04-03 07:22] VITALS: BP 104/55
[2022-04-03] MEDS: VITAMINS A AND D 56.7 GM TUBE TP SCH ×2 (09:00→21:24)
[2022-04-03] MEDS: PROSOURCE / PROSTAT (PYXIS) 30 ML UDC GT SCH ×2 (09:00→17:28)
[2022-04-03] MEDS: ASCORBIC ACID 500 MG TABLET GT SCH (09:00)
[2022-04-03] MEDS: FERROUS SULFATE (325 MG) 325 MG/TAB TABLET GT SCH (09:00)
[2022-04-03] MEDS: ZINC SULFATE 220 MG CAPSULE GT SCH (09:00)
[2022-04-03 10:00] VITALS: BP 104/55
[2022-04-03] MEDS: PANTOPRAZOLE 40 MG/PACK PACK GT SCH (10:08)
[2022-04-03 12:28] VITALS: BP 110/68
--- NOTE | 2022-04-03 12:54 | NUR ---
Resident monthly progressive notes. Resident is alert but unable to make his needs known. He moves a lot while in bed.He can respond with anger if he doesn't like something. He received daily visits for sensory stimulation, TV. music, hand massage, reality orientation.Continue to provide these activities as needed.
[2022-04-03 19:30] VITALS: BP 118/63
[2022-04-03] MEDS: TAMSULOSIN 0.4 MG CAP.SR.24H GT SCH (21:24)
[2022-04-03] MEDS: MELATONIN 3 MG TABLET GT SCH (21:24)
[2022-04-03] MEDS: ATORVASTATIN 40 MG TABLET GT SCH (21:24)
[2022-04-03] MEDS: POLYETHYLENE GLYCOL 3350 17 GM POWD.PACK GT PRN (22:00)
[2022-04-03] MEDS: INSULIN GLARGINE, 100 UNIT/ML CARTRIDGE SQ SCH (22:04)
[2022-04-04 00:35] VITALS: BP 119/65
[2022-04-04] MEDS: ALBUTEROL FS 2.5 MG/3 ML VIAL.NEB NEB SCH ×4 (01:57→18:59)
[2022-04-04] MEDS: BLOOD SUGAR DIAGNOSTIC 1 EACH STRIP IN SCH ×4 (05:37→23:39)
[2022-04-04] MEDS: POLYVINYL ALCOHOL 15 ML BOTTLE EACHEYE SCH ×4 (05:37→23:39)
[2022-04-04] MEDS: GLUCERNA 1.2 1,000 ML BOTTLE GT PRN ×2 (05:38→18:20)
[2022-04-04] MEDS: INSULIN REGULAR, HUMAN 100 UNIT/ML 3 ML VIAL SQ SCH ×3 (05:38→17:24)
[2022-04-04] MEDS: BISACODYL SUPP (10 MG) 10 MG/SUPP.RECT SUPP.RECT RC PRN (06:54)
[2022-04-04 07:42] VITALS: BP 101/52
[2022-04-04] MEDS: ASCORBIC ACID 500 MG TABLET GT SCH (08:46)
[2022-04-04] MEDS: VITAMINS A AND D 56.7 GM TUBE TP SCH ×2 (08:46→20:55)
[2022-04-04] MEDS: FERROUS SULFATE (325 MG) 325 MG/TAB TABLET GT SCH (08:46)
[2022-04-04] MEDS: ZINC SULFATE 220 MG CAPSULE GT SCH (08:46)
[2022-04-04] MEDS: PANTOPRAZOLE 40 MG/PACK PACK GT SCH (08:46)
[2022-04-04] MEDS: PROSOURCE / PROSTAT (PYXIS) 30 ML UDC GT SCH ×2 (08:46→17:24)
[2022-04-04 12:15] VITALS: BP 118/56
--- NOTE | 2022-04-04 17:29 | NUR ---
Seen by INFECTIOUS DISEASE PHYSICIAN Reshma Christine via telemedicine/video call. Relayed CXR result to her. No new order. Informed pt's of CXR result. Offered Moderna Covid-19 booster. Pt's Rosaline said she will think about whether to give the second booster or not. Provided education regarding risks, benefits, and possible side effects.
[2022-04-04 19:51] VITALS: BP 109/62
[2022-04-04] MEDS: TAMSULOSIN 0.4 MG CAP.SR.24H GT SCH (21:09)
[2022-04-04] MEDS: ATORVASTATIN 40 MG TABLET GT SCH (21:10)
[2022-04-04] MEDS: MELATONIN 3 MG TABLET GT SCH (21:10)
[2022-04-04] MEDS: INSULIN GLARGINE, 100 UNIT/ML CARTRIDGE SQ SCH (21:10)
[2022-04-05] MEDS: ALBUTEROL FS 2.5 MG/3 ML VIAL.NEB NEB SCH ×4 (01:08→18:50)
[2022-04-05 01:20] VITALS: BP 115/68
[2022-04-05] MEDS: POLYVINYL ALCOHOL 15 ML BOTTLE EACHEYE SCH ×3 (05:04→17:14)
[2022-04-05] MEDS: BLOOD SUGAR DIAGNOSTIC 1 EACH STRIP IN SCH ×3 (05:27→17:46)
[2022-04-05] MEDS: INSULIN REGULAR, HUMAN 100 UNIT/ML 3 ML VIAL SQ SCH ×3 (05:28→17:47)
[2022-04-05 07:39] VITALS: BP 110/62
[2022-04-05] MEDS: PANTOPRAZOLE 40 MG/PACK PACK GT SCH (09:00)
[2022-04-05] MEDS: ASCORBIC ACID 500 MG TABLET GT SCH (09:00)
[2022-04-05] MEDS: FERROUS SULFATE (325 MG) 325 MG/TAB TABLET GT SCH (09:00)
[2022-04-05] MEDS: ZINC SULFATE 220 MG CAPSULE GT SCH (09:00)
[2022-04-05] MEDS: VITAMINS A AND D 56.7 GM TUBE TP SCH ×2 (09:00→21:40)
[2022-04-05] MEDS: PROSOURCE / PROSTAT (PYXIS) 30 ML UDC GT SCH ×2 (09:00→17:14)
[2022-04-05 12:35] VITALS: BP 112/56
--- NOTE | 2022-04-05 15:43 | NUR ---
Facility Update & second booster: PIERRE notified patient's , Rosaline via email that: A sub-acute employee tested positive for COVID-19. [facility] will continue following [facility] Department of Public Health's infection control guidelines and all staff and patients will continue response testing and being screened for symptoms. PIERRE also sent latest visitation guidelines. PIERRE also notified family that Second Booster (Moderna) is available for patients and to call nurse's station to give consent if they are interested.
[2022-04-05] MEDS: GLUCERNA 1.2 1,000 ML BOTTLE GT PRN (17:14)
[2022-04-05 20:29] VITALS: BP 101/76
[2022-04-05] MEDS: ENOXAPARIN SODIUM 40 MG/0.4 ML DISP.SYRIN SQ SCH (21:08)
[2022-04-05] MEDS: ATORVASTATIN 40 MG TABLET GT SCH (21:08)
[2022-04-05] MEDS: TAMSULOSIN 0.4 MG CAP.SR.24H GT SCH (21:08)
[2022-04-05] MEDS: MELATONIN 3 MG TABLET GT SCH (21:40)
[2022-04-05] MEDS: INSULIN GLARGINE, 100 UNIT/ML CARTRIDGE SQ SCH (21:41)
[2022-04-06] MEDS: POLYVINYL ALCOHOL 15 ML BOTTLE EACHEYE SCH ×4 (00:12→17:54)
[2022-04-06] MEDS: BLOOD SUGAR DIAGNOSTIC 1 EACH STRIP IN SCH ×4 (00:12→17:57)
[2022-04-06] MEDS: INSULIN REGULAR, HUMAN 100 UNIT/ML 3 ML VIAL SQ SCH ×4 (00:13→17:58)
[2022-04-06 00:34] VITALS: BP 105/75
[2022-04-06] MEDS: ALBUTEROL FS 2.5 MG/3 ML VIAL.NEB NEB SCH ×4 (01:42→20:13)
[2022-04-06 07:48] VITALS: BP 118/54
[2022-04-06] MEDS: FERROUS SULFATE (325 MG) 325 MG/TAB TABLET GT SCH (09:12)
[2022-04-06] MEDS: ASPIRIN 81 MG TAB.CHEW GT SCH (09:12)
[2022-04-06] MEDS: ASCORBIC ACID 500 MG TABLET GT SCH (09:13)
[2022-04-06] MEDS: VITAMINS A AND D 56.7 GM TUBE TP SCH ×2 (09:13→21:34)
[2022-04-06] MEDS: ZINC SULFATE 220 MG CAPSULE GT SCH (09:13)
[2022-04-06] MEDS: PROSOURCE / PROSTAT (PYXIS) 30 ML UDC GT SCH ×2 (09:13→16:57)
[2022-04-06] MEDS: PANTOPRAZOLE 40 MG/PACK PACK GT SCH (09:14)
[2022-04-06] MEDS: GLUCERNA 1.2 1,000 ML BOTTLE GT PRN (12:06)
[2022-04-06 12:38] VITALS: BP 125/58
[2022-04-06 20:30] VITALS: BP 127/69
[2022-04-06] MEDS: ENOXAPARIN SODIUM 40 MG/0.4 ML DISP.SYRIN SQ SCH (21:35)
[2022-04-06] MEDS: MELATONIN 3 MG TABLET GT SCH (22:09)
[2022-04-06] MEDS: ATORVASTATIN 40 MG TABLET GT SCH (22:09)
[2022-04-06] MEDS: TAMSULOSIN 0.4 MG CAP.SR.24H GT SCH (22:09)
[2022-04-06] MEDS: INSULIN GLARGINE, 100 UNIT/ML CARTRIDGE SQ SCH (22:10)
[2022-04-07] MEDS: POLYVINYL ALCOHOL 15 ML BOTTLE EACHEYE SCH ×5 (00:26→23:08)
[2022-04-07] MEDS: BLOOD SUGAR DIAGNOSTIC 1 EACH STRIP IN SCH ×5 (00:27→23:08)
[2022-04-07] MEDS: ALBUTEROL FS 2.5 MG/3 ML VIAL.NEB NEB SCH ×4 (01:59→18:54)
[2022-04-07 02:00] VITALS: BP 118/65
[2022-04-07] MEDS: INSULIN REGULAR, HUMAN 100 UNIT/ML 3 ML VIAL SQ SCH ×3 (05:27→18:21)
[2022-04-07 07:49] VITALS: BP 112/57
[2022-04-07] MEDS: ASPIRIN 81 MG TAB.CHEW GT SCH (09:35)
[2022-04-07] MEDS: FERROUS SULFATE (325 MG) 325 MG/TAB TABLET GT SCH (09:35)
[2022-04-07] MEDS: PROSOURCE / PROSTAT (PYXIS) 30 ML UDC GT SCH ×2 (09:36→17:47)
[2022-04-07] MEDS: ZINC SULFATE 220 MG CAPSULE GT SCH (09:37)
[2022-04-07] MEDS: VITAMINS A AND D 56.7 GM TUBE TP SCH ×2 (09:37→21:34)
[2022-04-07] MEDS: ASCORBIC ACID 500 MG TABLET GT SCH (09:37)
[2022-04-07] MEDS: PANTOPRAZOLE 40 MG/PACK PACK GT SCH (09:38)
[2022-04-07] MEDS: GLUCERNA 1.2 1,000 ML BOTTLE GT PRN (10:56)
[2022-04-07] MEDS: POLYETHYLENE GLYCOL 3350 17 GM POWD.PACK GT PRN (12:00)
[2022-04-07 12:21] VITALS: BP 118/62
[2022-04-07 19:55] VITALS: BP 105/50
[2022-04-07] MEDS: INSULIN GLARGINE, 100 UNIT/ML CARTRIDGE SQ SCH (21:34)
[2022-04-07] MEDS: MELATONIN 3 MG TABLET GT SCH (21:34)
[2022-04-07] MEDS: ATORVASTATIN 40 MG TABLET GT SCH (21:34)
[2022-04-07] MEDS: TAMSULOSIN 0.4 MG CAP.SR.24H GT SCH (21:34)
[2022-04-07] MEDS: ENOXAPARIN SODIUM 40 MG/0.4 ML DISP.SYRIN SQ SCH (21:34)
[2022-04-08] MEDS: ALBUTEROL FS 2.5 MG/3 ML VIAL.NEB NEB SCH ×4 (01:46→19:57)
[2022-04-08] MEDS: INSULIN REGULAR, HUMAN 100 UNIT/ML 3 ML VIAL SQ SCH ×3 (05:42→18:11)
[2022-04-08] MEDS: BLOOD SUGAR DIAGNOSTIC 1 EACH STRIP IN SCH ×4 (05:42→23:14)
[2022-04-08] MEDS: POLYVINYL ALCOHOL 15 ML BOTTLE EACHEYE SCH ×4 (05:42→23:13)
[2022-04-08 07:43] VITALS: BP 106/59
[2022-04-08] MEDS: ASCORBIC ACID 500 MG TABLET GT SCH (09:00)
[2022-04-08] MEDS: ZINC SULFATE 220 MG CAPSULE GT SCH (09:00)
[2022-04-08] MEDS: VITAMINS A AND D 56.7 GM TUBE TP SCH ×2 (09:00→21:11)
[2022-04-08] MEDS: ASPIRIN 81 MG TAB.CHEW GT SCH (09:58)
[2022-04-08] MEDS: PANTOPRAZOLE 40 MG/PACK PACK GT SCH (09:58)
[2022-04-08] MEDS: FERROUS SULFATE (325 MG) 325 MG/TAB TABLET GT SCH (09:58)
[2022-04-08] MEDS: PROSOURCE / PROSTAT (PYXIS) 30 ML UDC GT SCH ×2 (09:58→17:00)
--- NOTE | 2022-04-08 11:50 | NUR ---
Notified SHAHRAM Christine that pt has tracheal bleeding again. Received order to hold Lovenox and Aspirin until tracheal bleeding resolves.
[2022-04-08 12:41] VITALS: BP 110/54
[2022-04-08 19:54] VITALS: BP 136/63
[2022-04-08] MEDS: MELATONIN 3 MG TABLET GT SCH (21:11)
[2022-04-08] MEDS: TAMSULOSIN 0.4 MG CAP.SR.24H GT SCH (21:11)
[2022-04-08] MEDS: ATORVASTATIN 40 MG TABLET GT SCH (21:11)
[2022-04-08] MEDS: INSULIN GLARGINE, 100 UNIT/ML CARTRIDGE SQ SCH (21:12)
[2022-04-09] MEDS: GLUCERNA 1.2 1,000 ML BOTTLE GT PRN ×2 (00:36→19:47)
[2022-04-09] MEDS: ALBUTEROL FS 2.5 MG/3 ML VIAL.NEB NEB SCH ×4 (01:54→20:05)
[2022-04-09] MEDS: POLYVINYL ALCOHOL 15 ML BOTTLE EACHEYE SCH ×4 (05:54→23:54)
[2022-04-09] MEDS: INSULIN REGULAR, HUMAN 100 UNIT/ML 3 ML VIAL SQ SCH ×3 (05:54→18:02)
[2022-04-09] MEDS: BLOOD SUGAR DIAGNOSTIC 1 EACH STRIP IN SCH ×4 (05:54→23:54)
[2022-04-09 07:30] VITALS: BP 103/61
[2022-04-09] MEDS: PANTOPRAZOLE 40 MG/PACK PACK GT SCH (09:13)
[2022-04-09] MEDS: ASCORBIC ACID 500 MG TABLET GT SCH (09:13)
[2022-04-09] MEDS: PROSOURCE / PROSTAT (PYXIS) 30 ML UDC GT SCH ×2 (09:13→17:00)
[2022-04-09] MEDS: FERROUS SULFATE (325 MG) 325 MG/TAB TABLET GT SCH (09:13)
[2022-04-09] MEDS: ZINC SULFATE 220 MG CAPSULE GT SCH (09:14)
[2022-04-09] MEDS: VITAMINS A AND D 56.7 GM TUBE TP SCH ×2 (09:14→21:53)
[2022-04-09 11:57] VITALS: BP 106/58
[2022-04-09 19:45] VITALS: BP 104/55
[2022-04-09] MEDS: TAMSULOSIN 0.4 MG CAP.SR.24H GT SCH (21:55)
[2022-04-09] MEDS: ATORVASTATIN 40 MG TABLET GT SCH (21:55)
[2022-04-09] MEDS: MELATONIN 3 MG TABLET GT SCH (21:56)
[2022-04-09] MEDS: INSULIN GLARGINE, 100 UNIT/ML CARTRIDGE SQ SCH (21:59)
[2022-04-10] MEDS: ALBUTEROL FS 2.5 MG/3 ML VIAL.NEB NEB SCH ×4 (02:11→19:50)
[2022-04-10] MEDS: BLOOD SUGAR DIAGNOSTIC 1 EACH STRIP IN SCH ×4 (05:43→23:31)
[2022-04-10] MEDS: POLYVINYL ALCOHOL 15 ML BOTTLE EACHEYE SCH ×4 (05:43→23:31)
[2022-04-10] MEDS: INSULIN REGULAR, HUMAN 100 UNIT/ML 3 ML VIAL SQ SCH ×3 (05:44→17:49)
[2022-04-10 07:38] VITALS: BP 114/58
[2022-04-10] MEDS: ASCORBIC ACID 500 MG TABLET GT SCH (09:00)
[2022-04-10] MEDS: VITAMINS A AND D 56.7 GM TUBE TP SCH ×2 (09:00→21:45)
[2022-04-10] MEDS: FERROUS SULFATE (325 MG) 325 MG/TAB TABLET GT SCH (09:00)
[2022-04-10] MEDS: PROSOURCE / PROSTAT (PYXIS) 30 ML UDC GT SCH ×2 (09:00→17:48)
[2022-04-10] MEDS: ZINC SULFATE 220 MG CAPSULE GT SCH (09:00)
--- NOTE | 2022-04-10 09:10 | NUR ---
RT NOTE PT RCVD ON MECHANICAL VENT WITH CHARTED SETTINGS. PT PLACED ON COOL AEROSOL WITH CHARTED SETTINGS, PER MD ORDER. SX DONE. NO RESPIRATORY DISTRESS NOTED THIS TIME. Addendum: 04/10/22 at 1203 by BAILEE VILLASEÑOR RT AMBU BAG BEDSIDE.
[2022-04-10 10:00] VITALS: BP 114/58
[2022-04-10] MEDS: PANTOPRAZOLE 40 MG/PACK PACK GT SCH (10:22)
[2022-04-10 12:18] VITALS: BP 110/57
[2022-04-10] MEDS: GLUCERNA 1.2 1,000 ML BOTTLE GT PRN (14:59)
[2022-04-10 19:44] VITALS: BP 103/61
[2022-04-10] MEDS: MELATONIN 3 MG TABLET GT SCH (21:46)
[2022-04-10] MEDS: ATORVASTATIN 40 MG TABLET GT SCH (21:46)
[2022-04-10] MEDS: TAMSULOSIN 0.4 MG CAP.SR.24H GT SCH (21:46)
[2022-04-10] MEDS: INSULIN GLARGINE, 100 UNIT/ML CARTRIDGE SQ SCH (21:48)
[2022-04-10 23:41] VITALS: BP 121/55
[2022-04-11] MEDS: ALBUTEROL FS 2.5 MG/3 ML VIAL.NEB NEB SCH ×4 (02:03→19:26)
[2022-04-11] MEDS: BLOOD SUGAR DIAGNOSTIC 1 EACH STRIP IN SCH ×4 (05:45→23:11)
[2022-04-11] MEDS: POLYVINYL ALCOHOL 15 ML BOTTLE EACHEYE SCH ×4 (05:45→23:11)
[2022-04-11] MEDS: INSULIN REGULAR, HUMAN 100 UNIT/ML 3 ML VIAL SQ SCH ×3 (05:46→17:29)
[2022-04-11 07:33] VITALS: BP 117/70
[2022-04-11] MEDS: PROSOURCE / PROSTAT (PYXIS) 30 ML UDC GT SCH ×2 (09:00→16:47)
[2022-04-11] MEDS: FERROUS SULFATE (325 MG) 325 MG/TAB TABLET GT SCH (09:00)
[2022-04-11] MEDS: VITAMINS A AND D 56.7 GM TUBE TP SCH ×2 (09:01→20:47)
[2022-04-11] MEDS: ZINC SULFATE 220 MG CAPSULE GT SCH (09:01)
[2022-04-11] MEDS: ASCORBIC ACID 500 MG TABLET GT SCH (09:01)
[2022-04-11] MEDS: PANTOPRAZOLE 40 MG/PACK PACK GT SCH (09:03)
[2022-04-11 10:00] VITALS: BP 117/70
[2022-04-11 12:19] VITALS: BP 124/72
[2022-04-11] MEDS: GLUCERNA 1.2 1,000 ML BOTTLE GT PRN (15:07)
[2022-04-11 20:04] VITALS: BP 103/71
--- NOTE | 2022-04-11 20:58 | NUR ---
RT PT RECVD ON 28% FIO2 COOL AEROSOL VIA T-BAR. TRACH IS PATENT AND SECURED. SPO2 >92%. SUCTION PRN, CAMERON CHANGED AT THIS TIME. NEB TX GIVEN AND PT KAILEE WELL. NO SOB OR RESPIRATORY DISTRESS NOTED AT THIS TIME. BVM AND SPARE TRACH AT BEDSIDE.
[2022-04-11] MEDS: TAMSULOSIN 0.4 MG CAP.SR.24H GT SCH (21:02)
[2022-04-11] MEDS: ATORVASTATIN 40 MG TABLET GT SCH (21:02)
[2022-04-11] MEDS: MELATONIN 3 MG TABLET GT SCH (21:02)
[2022-04-11] MEDS: INSULIN GLARGINE, 100 UNIT/ML CARTRIDGE SQ SCH (21:04)
--- NOTE | 2022-04-11 23:55 | NUR ---
RT PT PLACED ON VENT PER MD ORDER. CPAP 10, PEEP +5, FIO2 30%. NO SOB OR RESPIRATORY DISTRESS NOTED AT THIS TIME.
[2022-04-12 00:09] VITALS: BP 110/72
[2022-04-12] MEDS: ALBUTEROL FS 2.5 MG/3 ML VIAL.NEB NEB SCH ×4 (02:21→20:27)
[2022-04-12] MEDS: POLYVINYL ALCOHOL 15 ML BOTTLE EACHEYE SCH ×4 (05:32→23:39)
[2022-04-12] MEDS: INSULIN REGULAR, HUMAN 100 UNIT/ML 3 ML VIAL SQ SCH ×3 (05:33→17:49)
[2022-04-12] MEDS: BLOOD SUGAR DIAGNOSTIC 1 EACH STRIP IN SCH ×4 (05:33→23:39)
[2022-04-12 08:22] VITALS: BP 121/62
[2022-04-12] MEDS: VITAMINS A AND D 56.7 GM TUBE TP SCH ×2 (09:00→20:37)
[2022-04-12] MEDS: ZINC SULFATE 220 MG CAPSULE GT SCH (09:00)
[2022-04-12] MEDS: ASCORBIC ACID 500 MG TABLET GT SCH (09:00)
[2022-04-12] MEDS: PROSOURCE / PROSTAT (PYXIS) 30 ML UDC GT SCH ×2 (09:00→16:34)
[2022-04-12] MEDS: PANTOPRAZOLE 40 MG/PACK PACK GT SCH (09:00)
[2022-04-12] MEDS: FERROUS SULFATE (325 MG) 325 MG/TAB TABLET GT SCH (09:00)
[2022-04-12] MEDS: GLUCERNA 1.2 1,000 ML BOTTLE GT PRN (09:48)
[2022-04-12 12:55] VITALS: BP 112/59
[2022-04-12] MEDS ORDERED: HYDROGEN PEROXIDE 480 ML BOTTLE TP PRN (15:00)
[2022-04-12] MEDS: HYDROGEN PEROXIDE 480 ML BOTTLE TP SCH (20:27)
[2022-04-12] MEDS: MELATONIN 3 MG TABLET GT SCH (21:07)
[2022-04-12] MEDS: INSULIN GLARGINE, 100 UNIT/ML CARTRIDGE SQ SCH (21:07)
[2022-04-12] MEDS: TAMSULOSIN 0.4 MG CAP.SR.24H GT SCH (21:07)
[2022-04-12] MEDS: ATORVASTATIN 40 MG TABLET GT SCH (21:07)
[2022-04-12 21:30] VITALS: BP 112/62
--- NOTE | 2022-04-12 23:32 | NUR ---
RT PT RECVD ON 28% COOL AEROSOL VIA T-BAR. TRACH IS PATENT AND SECURED. SUCTION PRN. NEB TX GIVEN AND KAILEE WELL, NO ADVERSE REACTION NOTED. PT PLACED ON VENT CPAP 10, FIO2 30% PEEP +5 ORDERED WITH CUFF INFLATED, VENT PLUGGED INTO RED OUTLET WITH ALARMS ON AND AUDIBLE. NO SOB OR RESPIRATORY DISTRESS NOTED AT THIS TIME. WILL CONTINUE TO MONITOR THROUGHOUT SHIFT.
[2022-04-13 01:19] VITALS: BP 115/68
[2022-04-13] MEDS: ALBUTEROL FS 2.5 MG/3 ML VIAL.NEB NEB SCH ×4 (01:22→20:25)
[2022-04-13] MEDS: BLOOD SUGAR DIAGNOSTIC 1 EACH STRIP IN SCH ×4 (05:16→23:22)
[2022-04-13] MEDS: INSULIN REGULAR, HUMAN 100 UNIT/ML 3 ML VIAL SQ SCH ×3 (05:16→17:19)
[2022-04-13] MEDS: POLYVINYL ALCOHOL 15 ML BOTTLE EACHEYE SCH ×4 (05:16→23:22)
[2022-04-13] MEDS: GLUCERNA 1.2 1,000 ML BOTTLE GT PRN ×2 (05:16→18:01)
[2022-04-13 07:17] VITALS: BP 103/57
[2022-04-13] MEDS: HYDROGEN PEROXIDE 480 ML BOTTLE TP SCH ×2 (09:33→20:25)
[2022-04-13] MEDS: PROSOURCE / PROSTAT (PYXIS) 30 ML UDC GT SCH ×2 (09:49→16:17)
[2022-04-13] MEDS: ZINC SULFATE 220 MG CAPSULE GT SCH (09:49)
[2022-04-13] MEDS: ASCORBIC ACID 500 MG TABLET GT SCH (09:49)
[2022-04-13] MEDS: FERROUS SULFATE (325 MG) 325 MG/TAB TABLET GT SCH (09:49)
[2022-04-13] MEDS: VITAMINS A AND D 56.7 GM TUBE TP SCH ×2 (09:49→21:49)
[2022-04-13] MEDS: PANTOPRAZOLE 40 MG/PACK PACK GT SCH (09:49)
[2022-04-13 11:33] VITALS: BP 122/58
[2022-04-13 20:03] VITALS: BP 104/55
[2022-04-13] MEDS: MELATONIN 3 MG TABLET GT SCH (21:52)
[2022-04-13] MEDS: TAMSULOSIN 0.4 MG CAP.SR.24H GT SCH (21:52)
[2022-04-13] MEDS: ATORVASTATIN 40 MG TABLET GT SCH (21:52)
[2022-04-13] MEDS: INSULIN GLARGINE, 100 UNIT/ML CARTRIDGE SQ SCH (21:55)
[2022-04-14] MEDS: ALBUTEROL FS 2.5 MG/3 ML VIAL.NEB NEB SCH ×4 (01:30→19:52)
[2022-04-14 01:56] VITALS: BP 104/64
--- NOTE | 2022-04-14 04:47 | NUR ---
RT PT RECVD STABLE ON 28% FIO2 COOL AEROSOL VIA TBAR. TRACH IS PATENT AND SECURED. SUCTION PRN, MODERATE THICK SECRETIONS. SPO2 >92% MAINTAINED. NEB TX GIVEN AND PT KAILEE WELL. NO ADVERSE REACTION NOTED. PT PLACED ON MECH VENT CPAP SETTINGS ORDERED AT MIDNIGHT, CUFF INFLATED, ALARMS ON AND AUDIBLE. VENT PLUGGED INTO RED OUTLET. NO SOB OR RESIPRATORY DISTRESS NOTED. TRACH CARE DONE AND CAMERON CHANGED.
[2022-04-14] MEDS: POLYVINYL ALCOHOL 15 ML BOTTLE EACHEYE SCH ×4 (05:10→23:17)
[2022-04-14] MEDS: BLOOD SUGAR DIAGNOSTIC 1 EACH STRIP IN SCH ×4 (06:08→23:17)
[2022-04-14] MEDS: INSULIN REGULAR, HUMAN 100 UNIT/ML 3 ML VIAL SQ SCH ×3 (06:09→17:53)
[2022-04-14 07:25] VITALS: BP 160/57
[2022-04-14] MEDS: HYDROGEN PEROXIDE 480 ML BOTTLE TP SCH ×2 (08:24→19:52)
[2022-04-14] MEDS: FERROUS SULFATE (325 MG) 325 MG/TAB TABLET GT SCH (09:18)
[2022-04-14] MEDS: VITAMINS A AND D 56.7 GM TUBE TP SCH ×2 (09:18→21:45)
[2022-04-14] MEDS: ZINC SULFATE 220 MG CAPSULE GT SCH (09:18)
[2022-04-14] MEDS: PROSOURCE / PROSTAT (PYXIS) 30 ML UDC GT SCH ×2 (09:18→17:40)
[2022-04-14] MEDS: ASCORBIC ACID 500 MG TABLET GT SCH (09:18)
[2022-04-14] MEDS: PANTOPRAZOLE 40 MG/PACK PACK GT SCH (09:18)
[2022-04-14 12:57] VITALS: BP_SYST 112; BP_SYST 124; BP_DIAS 55; BP_DIAS 73
[2022-04-14] MEDS: GLUCERNA 1.2 1,000 ML BOTTLE GT PRN (17:55)
[2022-04-14 19:43] VITALS: BP 122/65
[2022-04-14] MEDS: MELATONIN 3 MG TABLET GT SCH (21:45)
[2022-04-14] MEDS: TAMSULOSIN 0.4 MG CAP.SR.24H GT SCH (21:45)
[2022-04-14] MEDS: ATORVASTATIN 40 MG TABLET GT SCH (21:45)
[2022-04-14] MEDS: INSULIN GLARGINE, 100 UNIT/ML CARTRIDGE SQ SCH (21:46)
[2022-04-15 00:11] VITALS: BP 119/66
[2022-04-15] MEDS: ALBUTEROL FS 2.5 MG/3 ML VIAL.NEB NEB SCH ×4 (02:00→20:20)
[2022-04-15] MEDS: BLOOD SUGAR DIAGNOSTIC 1 EACH STRIP IN SCH ×4 (05:39→23:26)
[2022-04-15] MEDS: POLYVINYL ALCOHOL 15 ML BOTTLE EACHEYE SCH ×4 (05:39→23:26)
[2022-04-15] MEDS: INSULIN REGULAR, HUMAN 100 UNIT/ML 3 ML VIAL SQ SCH ×3 (05:41→17:33)
[2022-04-15 07:19] VITALS: BP 96/47
[2022-04-15] MEDS: ASCORBIC ACID 500 MG TABLET GT SCH (09:00)
[2022-04-15] MEDS: PROSOURCE / PROSTAT (PYXIS) 30 ML UDC GT SCH ×2 (09:00→17:32)
[2022-04-15] MEDS: VITAMINS A AND D 56.7 GM TUBE TP SCH ×2 (09:00→21:20)
[2022-04-15] MEDS: PANTOPRAZOLE 40 MG/PACK PACK GT SCH (09:00)
[2022-04-15] MEDS: FERROUS SULFATE (325 MG) 325 MG/TAB TABLET GT SCH (09:00)
[2022-04-15] MEDS: ZINC SULFATE 220 MG CAPSULE GT SCH (09:00)
[2022-04-15] MEDS: HYDROGEN PEROXIDE 480 ML BOTTLE TP SCH ×2 (09:50→20:20)
--- NOTE | 2022-04-15 10:19 | NUR ---
RT Pt RECEIVED ON VENT ON CPAP. Pt IS STABLE, NO RESP DISTRESS OR SOB NOTED. Pt PLACED ON CA 30% FiO2 PER ORDER @ 0733. WILL CONTINUE TO MONITOR.
--- NOTE | 2022-04-15 10:22 | NUR ---
CORRECTION, Pt IS ON 28% FiO2.
[2022-04-15 11:18] VITALS: BP 112/53
[2022-04-15] MEDS: GLUCERNA 1.2 1,000 ML BOTTLE GT PRN (14:38)
--- NOTE | 2022-04-15 14:40 | NUR ---
Seen and examined by Dr. Mack and virtual rounds done by Reshma Christine. Both providers are aware that patient still having tracheal bleeding and therefore to continue to hold Aspirin and Lovenox. Reshma Christine ordered CBC, patient's Rosaline informed.
[2022-04-15 15:39] LABS: BASOPHILS # (AUTO) 0.1 K/uL (0.0-0.2); BASOPHILS % (AUTO) 0.9 % (0.0-2.0); EOSINOPHILS % (AUTO) 5.3 % (0.0-6.0); HEMATOCRIT 33 % (39-51); HEMOGLOBIN 10.8 g/dL (13.5-17.5); LYMPHOCYTES # (AUTO) 1.7 K/uL (0.8-4.8); LYMPHOCYTES % (AUTO) 23.7 % (20.0-44.0); MEAN CORPUSCULAR HGB CONC 33 g/dl (31.0-36.0); MEAN CORPUSCULAR VOLUME 78 fL (80-96); MONOCYTES # (AUTO) 0.7 K/uL (0.1-1.30); NEUTROPHILS # (AUTO) 4.4 K/uL (1.8-8.9); NEUTROPHILS % (AUTO) 60.1 % (43.0-81.0); PLATELET COUNT (AUTO) 357 K/uL (150-450); RED BLOOD CELL COUNT(AUTO) 4.24 MIL/uL (4.5-6.0); WHITE BLOOD COUNT (AUTO) 7.3 K/uL (4.3-11.0)
--- NOTE | 2022-04-15 17:40 | NUR ---
Relayed CBC result to SHAHRAM Christine, no new order.
[2022-04-15 19:58] VITALS: BP 112/70
[2022-04-15] MEDS: MELATONIN 3 MG TABLET GT SCH (21:20)
[2022-04-15] MEDS: TAMSULOSIN 0.4 MG CAP.SR.24H GT SCH (21:20)
[2022-04-15] MEDS: ATORVASTATIN 40 MG TABLET GT SCH (21:21)
[2022-04-15] MEDS: INSULIN GLARGINE, 100 UNIT/ML CARTRIDGE SQ SCH (21:29)
[2022-04-16 00:29] VITALS: BP 120/65
[2022-04-16] MEDS: ALBUTEROL FS 2.5 MG/3 ML VIAL.NEB NEB SCH ×4 (01:27→20:31)
[2022-04-16] MEDS: POLYVINYL ALCOHOL 15 ML BOTTLE EACHEYE SCH ×3 (06:42→17:31)
[2022-04-16] MEDS: BLOOD SUGAR DIAGNOSTIC 1 EACH STRIP IN SCH ×3 (06:42→17:31)
[2022-04-16] MEDS: INSULIN REGULAR, HUMAN 100 UNIT/ML 3 ML VIAL SQ SCH ×3 (06:43→17:32)
[2022-04-16 07:05] VITALS: BP 112/55
[2022-04-16] MEDS: HYDROGEN PEROXIDE 480 ML BOTTLE TP SCH ×2 (09:00→20:31)
[2022-04-16] MEDS: PANTOPRAZOLE 40 MG/PACK PACK GT SCH (09:18)
[2022-04-16] MEDS: ASCORBIC ACID 500 MG TABLET GT SCH (09:18)
[2022-04-16] MEDS: FERROUS SULFATE (325 MG) 325 MG/TAB TABLET GT SCH (09:18)
[2022-04-16] MEDS: PROSOURCE / PROSTAT (PYXIS) 30 ML UDC GT SCH ×2 (09:18→17:31)
[2022-04-16] MEDS: ZINC SULFATE 220 MG CAPSULE GT SCH (09:19)
[2022-04-16] MEDS: VITAMINS A AND D 56.7 GM TUBE TP SCH ×2 (09:19→21:30)
[2022-04-16 11:26] VITALS: BP 102/56
--- NOTE | 2022-04-16 12:40 | NUR ---
Seen by Dr Colón via telemedicine/video call. No tracheal bleeding noted at this time. He ordered to resume Lovenox today then Aspirin on 04/19/22 if there is still no tracheal bleeding.
[2022-04-16] MEDS: GLUCERNA 1.2 1,000 ML BOTTLE GT PRN (13:50)
[2022-04-16] MEDS ORDERED: ENOXAPARIN SODIUM 40 MG/0.4 ML DISP.SYRIN SQ SCH (14:00)
[2022-04-16] MEDS: POLYETHYLENE GLYCOL 3350 17 GM POWD.PACK GT PRN (17:35)
[2022-04-16 19:39] VITALS: BP 102/60
[2022-04-16 21:00] VITALS: BP 102/60
[2022-04-16] MEDS: ENOXAPARIN SODIUM 40 MG/0.4 ML DISP.SYRIN SQ SCH (21:30)
[2022-04-16] MEDS: MELATONIN 3 MG TABLET GT SCH (21:32)
[2022-04-16] MEDS: TAMSULOSIN 0.4 MG CAP.SR.24H GT SCH (21:33)
[2022-04-16] MEDS: ATORVASTATIN 40 MG TABLET GT SCH (21:33)
[2022-04-16] MEDS: INSULIN GLARGINE, 100 UNIT/ML CARTRIDGE SQ SCH (21:44)
[2022-04-16 23:31] VITALS: BP 130/73
[2022-04-17] MEDS: POLYVINYL ALCOHOL 15 ML BOTTLE EACHEYE SCH ×5 (00:22→23:16)
[2022-04-17] MEDS: BLOOD SUGAR DIAGNOSTIC 1 EACH STRIP IN SCH ×5 (00:22→23:16)
[2022-04-17] MEDS: ALBUTEROL FS 2.5 MG/3 ML VIAL.NEB NEB SCH ×4 (02:15→20:08)
[2022-04-17 05:00] VITALS: BP 118/78
[2022-04-17] MEDS: INSULIN REGULAR, HUMAN 100 UNIT/ML 3 ML VIAL SQ SCH ×3 (05:51→17:39)
[2022-04-17 07:22] VITALS: BP 102/56
[2022-04-17] MEDS: VITAMINS A AND D 56.7 GM TUBE TP SCH ×2 (09:00→20:42)
[2022-04-17] MEDS: ASCORBIC ACID 500 MG TABLET GT SCH (09:00)
[2022-04-17] MEDS: ZINC SULFATE 220 MG CAPSULE GT SCH (09:00)
[2022-04-17] MEDS: PROSOURCE / PROSTAT (PYXIS) 30 ML UDC GT SCH ×2 (09:00→15:38)
[2022-04-17] MEDS: FERROUS SULFATE (325 MG) 325 MG/TAB TABLET GT SCH (09:00)
[2022-04-17] MEDS: HYDROGEN PEROXIDE 480 ML BOTTLE TP SCH ×2 (09:09→21:27)
[2022-04-17 10:00] VITALS: BP 107/65
[2022-04-17] MEDS: PANTOPRAZOLE 40 MG/PACK PACK GT SCH (10:29)
[2022-04-17 12:21] VITALS: BP 119/79
--- NOTE | 2022-04-17 12:48 | NUR ---
Family Invite to IDT: PIERRE emailed the patient's , Rosaline and notified her about IDT meeting 03-19-22 12:30p. SW awaiting response & will follow up accordingly.
[2022-04-17 13:00] VITALS: BP 119/79
[2022-04-17] MEDS: GLUCERNA 1.2 1,000 ML BOTTLE GT PRN (15:38)
--- NOTE | 2022-04-17 18:00 | NUR ---
No noted tracheal bleeding this shift, with white frothy secretions in moderate amount. Tracheal suctioning done q 2 hours and PRN.
[2022-04-17 19:21] VITALS: BP 104/61
[2022-04-17] MEDS: ENOXAPARIN SODIUM 40 MG/0.4 ML DISP.SYRIN SQ SCH (20:42)
[2022-04-17] MEDS: ATORVASTATIN 40 MG TABLET GT SCH (21:02)
[2022-04-17] MEDS: TAMSULOSIN 0.4 MG CAP.SR.24H GT SCH (21:02)
[2022-04-17] MEDS: MELATONIN 3 MG TABLET GT SCH (21:02)
[2022-04-17] MEDS: INSULIN GLARGINE, 100 UNIT/ML CARTRIDGE SQ SCH (21:03)
[2022-04-18] VITALS (7 sets, daily range): BP systolic 108–120; BP diastolic 55–75
[2022-04-18] MEDS: ALBUTEROL FS 2.5 MG/3 ML VIAL.NEB NEB SCH ×4 (00:33→20:47)
[2022-04-18] MEDS: POLYVINYL ALCOHOL 15 ML BOTTLE EACHEYE SCH ×3 (05:23→17:48)
[2022-04-18] MEDS: BLOOD SUGAR DIAGNOSTIC 1 EACH STRIP IN SCH ×3 (05:33→17:48)
[2022-04-18] MEDS: INSULIN REGULAR, HUMAN 100 UNIT/ML 3 ML VIAL SQ SCH ×3 (05:33→17:49)
[2022-04-18] MEDS: GLUCERNA 1.2 1,000 ML BOTTLE GT PRN (07:21)
[2022-04-18] MEDS: HYDROGEN PEROXIDE 480 ML BOTTLE TP SCH ×2 (08:03→20:47)
[2022-04-18] MEDS: ASCORBIC ACID 500 MG TABLET GT SCH (09:32)
[2022-04-18] MEDS: FERROUS SULFATE (325 MG) 325 MG/TAB TABLET GT SCH (09:32)
[2022-04-18] MEDS: PROSOURCE / PROSTAT (PYXIS) 30 ML UDC GT SCH ×2 (09:32→17:48)
[2022-04-18] MEDS: PANTOPRAZOLE 40 MG/PACK PACK GT SCH (09:32)
[2022-04-18] MEDS: ZINC SULFATE 220 MG CAPSULE GT SCH (09:33)
[2022-04-18] MEDS: VITAMINS A AND D 56.7 GM TUBE TP SCH ×2 (09:33→21:20)
[2022-04-18] MEDS: ENOXAPARIN SODIUM 40 MG/0.4 ML DISP.SYRIN SQ SCH (21:20)
[2022-04-18] MEDS: ATORVASTATIN 40 MG TABLET GT SCH (21:20)
[2022-04-18] MEDS: MELATONIN 3 MG TABLET GT SCH (21:20)
[2022-04-18] MEDS: TAMSULOSIN 0.4 MG CAP.SR.24H GT SCH (21:20)
[2022-04-18] MEDS: INSULIN GLARGINE, 100 UNIT/ML CARTRIDGE SQ SCH (21:20)
--- NOTE | 2022-04-19 00:03 | NUR ---
RT NOTE late entry Pt rec'd on CA 28% fio2. Pt showed signs of increased WOB, use of Accessory muscles, and tachypnea. Expiratory wheezes heard throughout when auscultated. Pt placed on mech vent on AC mode settings as charted per md prn orders. Trach is patent and secured. Pt sx'd for thick mod amt of pale yellow secretions. Alarms are set and audible. Ambu bag and emergency spare trach at bedside. Will continue to monitor closely. Addendum: 04/19/22 at 0637 by RACHELLE GORDILLO RT Amended: Links added.
[2022-04-19] MEDS: BLOOD SUGAR DIAGNOSTIC 1 EACH STRIP IN SCH ×4 (00:22→18:06)
[2022-04-19] MEDS: POLYVINYL ALCOHOL 15 ML BOTTLE EACHEYE SCH ×4 (00:22→17:58)
--- NOTE | 2022-04-19 01:08 | NUR ---
RT NOTE LATE ENTRY Pt's breathing and respiratory rate are WNL. Pt placed back on NOC CPAP MODE as charted per MD orders
--- NOTE | 2022-04-19 01:08 | NUR ---
RT NOTE LATE ENTRY Pt's breathing and Respiratory Rate are WNL. Pt placed back on NOC CPAP Mode settings as charted per md orders. catheter builder aware. Will continue to monitor closely. Addendum: 04/19/22 at 0643 by RACHELLE GORDILLO RT Amended: Links added.
[2022-04-19] MEDS: ALBUTEROL FS 2.5 MG/3 ML VIAL.NEB NEB SCH ×4 (02:12→19:49)
--- NOTE | 2022-04-19 04:56 | NUR ---
RT NOTE Pt rec'd trached on CA 28% fio2. Pt placed on mech vent on CPAP mode settings as charted. Pt shows no signs of resp distress or sob. Trach is patent and secured. Pt sx'd for thick mod amt of pale yellow secretions. Alarms are set and audible. Ambu bag and emergency spare trach at bedside. Vent plugged into red outlet. Will continue to monitor closely. Addendum: 04/19/22 at 0459 by RACHELLE GORDILLO RT Amended: Links added. Addendum: 04/19/22 at 0645 by RACHELLE GORDILLO RT RT NOTE pt taken off mech vent and placed on CA 28% fio2 per md orders @ 0609. Will continue to monitor closely.
[2022-04-19] MEDS: INSULIN REGULAR, HUMAN 100 UNIT/ML 3 ML VIAL SQ SCH ×3 (05:33→18:06)
--- NOTE | 2022-04-19 06:38 | NUR ---
Patient with episodes of WOB of breathing and expiratory wheezing ,tachypneic. RT at bedside and placed to AC mode from CPAP ,HHN treatment given. After 1 hour patient looks calm,no respiratory distress and wheezing resolved and placed back to CPAP mode and tolerated. Will continue to monitor and will endorsed.
[2022-04-19 06:47] VITALS: BP 114/60
[2022-04-19 07:16] VITALS: BP 114/66
[2022-04-19] MEDS: HYDROGEN PEROXIDE 480 ML BOTTLE TP SCH ×2 (08:27→19:49)
[2022-04-19] MEDS: PROSOURCE / PROSTAT (PYXIS) 30 ML UDC GT SCH ×2 (08:36→17:58)
[2022-04-19] MEDS: ASCORBIC ACID 500 MG TABLET GT SCH (08:36)
[2022-04-19] MEDS: FERROUS SULFATE (325 MG) 325 MG/TAB TABLET GT SCH (08:36)
[2022-04-19] MEDS: PANTOPRAZOLE 40 MG/PACK PACK GT SCH (08:36)
[2022-04-19] MEDS: ZINC SULFATE 220 MG CAPSULE GT SCH (08:37)
[2022-04-19] MEDS: VITAMINS A AND D 56.7 GM TUBE TP SCH ×2 (08:37→21:15)
[2022-04-19 12:09] VITALS: BP 143/58
[2022-04-19] MEDS: GLUCERNA 1.2 1,000 ML BOTTLE GT PRN (12:10)
[2022-04-19 13:00] VITALS: BP 143/58
--- NOTE | 2022-04-19 13:44 | NUR ---
Discussed patient's condition during IDT, MD Colón made aware of patient's episode of WOB of breathing last night and temporarily placed on AC mode. Dr. Colón gave an order for vent setting of AC PRN distress and said to keep his previous order/setting of cool aerosol from 8am until 12 midnight, CPAP from midnight to 7AM. At the present time patient on cool aerosol tolerating well, no SOB, breathing regularly unlabored.
--- NOTE | 2022-04-19 14:55 | NUR ---
INTERDISCIPLINARY PLAN OF CARE CONFERENCE took place today. The patients , Rosaline [phone] Colón and Interdisciplinary team discussed the plan of care in detail. Current orders as well as treatments and medications were reviewed.
--- NOTE | 2022-04-19 15:51 | NUR ---
RT RECEIVED ON 28% COOL AEROSOL ORDERED. SX MOD THICK PALE YELLOW SECRETIONS. AMBU BAG AND BACK UP TRACH BY THE BEDSIDE. TRACH TUBE IN PLACE, PATENT, AND SECURED WITH TRACH TIE. NO DISTRESS AT THIS TIME.
--- NOTE | 2022-04-19 16:50 | NUR ---
Facility Update: PIERRE notified patient's family via email that: No Sub-Acute employee tested positive for COVID-19. We continue to following [facility] infection control guidelines. [facility] will continue response testing and screened for symptoms. Staff will be tested twice a week and patients will be tested on a weekly basis. All visitation Guidelines remain the same". PIERRE educated family about latest guidelines from [facility] of [facility]
[2022-04-19 18:48] VITALS: BP 103/61
[2022-04-19] MEDS: ATORVASTATIN 40 MG TABLET GT SCH (21:15)
[2022-04-19] MEDS: TAMSULOSIN 0.4 MG CAP.SR.24H GT SCH (21:15)
[2022-04-19] MEDS: MELATONIN 3 MG TABLET GT SCH (21:15)
[2022-04-19] MEDS: ENOXAPARIN SODIUM 40 MG/0.4 ML DISP.SYRIN SQ SCH (21:15)
[2022-04-19] MEDS: INSULIN GLARGINE, 100 UNIT/ML CARTRIDGE SQ SCH (21:37)
[2022-04-19 22:21] VITALS: BP 103/57
[2022-04-20] VITALS (7 sets, daily range): BP systolic 104–114; BP diastolic 52–73
[2022-04-20] MEDS: BLOOD SUGAR DIAGNOSTIC 1 EACH STRIP IN SCH ×5 (00:06→23:35)
[2022-04-20] MEDS: POLYVINYL ALCOHOL 15 ML BOTTLE EACHEYE SCH ×5 (00:06→23:35)
[2022-04-20] MEDS: ALBUTEROL FS 2.5 MG/3 ML VIAL.NEB NEB SCH ×4 (01:33→18:52)
--- NOTE | 2022-04-20 02:22 | NUR ---
RT PT RECVD ON 28% COOL AEROSOL T-BAR AND KAILEE WELL.TRACH IS PATENT AND SECURED. SUCTION PRN, NEB TX GIVEN AND KAILEE WELL. PT PLACED ON CPAP ORDERED SETTINGS AT MIDNIGHT. CPAP KAILEE WELL. VENT IS PLUGGED INTO RED OUTLET WITH ALARMS ON AND AUDIBLE. NO SOB NOTED.
[2022-04-20] MEDS: INSULIN REGULAR, HUMAN 100 UNIT/ML 3 ML VIAL SQ SCH ×3 (05:37→17:43)
[2022-04-20] MEDS: GLUCERNA 1.2 1,000 ML BOTTLE GT PRN (06:43)
[2022-04-20] MEDS: HYDROGEN PEROXIDE 480 ML BOTTLE TP SCH ×2 (08:08→20:23)
[2022-04-20] MEDS: PANTOPRAZOLE 40 MG/PACK PACK GT SCH (08:50)
[2022-04-20] MEDS: ZINC SULFATE 220 MG CAPSULE GT SCH (08:50)
[2022-04-20] MEDS: PROSOURCE / PROSTAT (PYXIS) 30 ML UDC GT SCH ×2 (08:50→16:53)
[2022-04-20] MEDS: ASCORBIC ACID 500 MG TABLET GT SCH (08:50)
[2022-04-20] MEDS: VITAMINS A AND D 56.7 GM TUBE TP SCH ×2 (08:50→21:22)
[2022-04-20] MEDS: FERROUS SULFATE (325 MG) 325 MG/TAB TABLET GT SCH (08:50)
--- NOTE | 2022-04-20 19:56 | NUR ---
RT NOTE RECEVD PT ON CA 28% AND STABLE, TRACH IS PATENT AND SECURE. NO S/S OF SOB OR ACUTE RESPIRATORY DISTRESS NOTED.
[2022-04-20] MEDS: ENOXAPARIN SODIUM 40 MG/0.4 ML DISP.SYRIN SQ SCH (21:21)
[2022-04-20] MEDS: TAMSULOSIN 0.4 MG CAP.SR.24H GT SCH ×2 (21:22→21:38)
[2022-04-20] MEDS: INSULIN GLARGINE, 100 UNIT/ML CARTRIDGE SQ SCH (21:22)
[2022-04-20] MEDS: MELATONIN 3 MG TABLET GT SCH (21:22)
[2022-04-20] MEDS: ATORVASTATIN 40 MG TABLET GT SCH ×2 (21:22→21:38)
[2022-04-21] MEDS: ALBUTEROL FS 2.5 MG/3 ML VIAL.NEB NEB SCH ×4 (00:33→18:45)
[2022-04-21] MEDS: POLYVINYL ALCOHOL 15 ML BOTTLE EACHEYE SCH ×4 (05:30→23:49)
[2022-04-21] MEDS: BLOOD SUGAR DIAGNOSTIC 1 EACH STRIP IN SCH ×4 (05:30→23:49)
[2022-04-21] MEDS: INSULIN REGULAR, HUMAN 100 UNIT/ML 3 ML VIAL SQ SCH ×3 (05:32→17:50)
[2022-04-21] MEDS: GLUCERNA 1.2 1,000 ML BOTTLE GT PRN ×2 (05:35→23:57)
[2022-04-21 06:43] VITALS: BP 116/63
[2022-04-21 07:41] VITALS: BP 119/79
[2022-04-21] MEDS: HYDROGEN PEROXIDE 480 ML BOTTLE TP SCH ×2 (09:05→20:13)
[2022-04-21] MEDS: ASCORBIC ACID 500 MG TABLET GT SCH (09:19)
[2022-04-21] MEDS: VITAMINS A AND D 56.7 GM TUBE TP SCH ×2 (09:19→20:51)
[2022-04-21] MEDS: PANTOPRAZOLE 40 MG/PACK PACK GT SCH (09:19)
[2022-04-21] MEDS: ZINC SULFATE 220 MG CAPSULE GT SCH (09:19)
[2022-04-21] MEDS: PROSOURCE / PROSTAT (PYXIS) 30 ML UDC GT SCH ×2 (09:19→17:14)
[2022-04-21] MEDS: FERROUS SULFATE (325 MG) 325 MG/TAB TABLET GT SCH (09:19)
[2022-04-21 12:24] VITALS: BP 129/61
[2022-04-21 13:00] VITALS: BP 12/61
--- NOTE | 2022-04-21 20:13 | NUR ---
RT NOTE RECEVD PT ON CA 28% AND STABLE, TRACH IS PATENT AND SECURE. NO S/S OF SOB OR ACUTE RESPIRATORY DISTRESS NOTED.
[2022-04-21] MEDS: ENOXAPARIN SODIUM 40 MG/0.4 ML DISP.SYRIN SQ SCH (20:51)
[2022-04-21] MEDS: ATORVASTATIN 40 MG TABLET GT SCH (21:01)
[2022-04-21] MEDS: MELATONIN 3 MG TABLET GT SCH (21:01)
[2022-04-21] MEDS: TAMSULOSIN 0.4 MG CAP.SR.24H GT SCH (21:01)
[2022-04-21] MEDS: INSULIN GLARGINE, 100 UNIT/ML CARTRIDGE SQ SCH (21:14)
[2022-04-21 22:00] VITALS: BP 147/77
[2022-04-22] VITALS: BP 84/54
[2022-04-22] MEDS: ALBUTEROL FS 2.5 MG/3 ML VIAL.NEB NEB SCH ×4 (00:38→20:35)
[2022-04-22] MEDS: BLOOD SUGAR DIAGNOSTIC 1 EACH STRIP IN SCH ×3 (05:49→17:48)
[2022-04-22] MEDS: POLYVINYL ALCOHOL 15 ML BOTTLE EACHEYE SCH ×3 (05:49→17:38)
[2022-04-22] MEDS: INSULIN REGULAR, HUMAN 100 UNIT/ML 3 ML VIAL SQ SCH ×3 (05:51→17:48)
[2022-04-22 07:44] VITALS: BP 115/46
[2022-04-22] MEDS: HYDROGEN PEROXIDE 480 ML BOTTLE TP SCH ×2 (09:00→20:35)
[2022-04-22] MEDS: PANTOPRAZOLE 40 MG/PACK PACK GT SCH (09:44)
[2022-04-22] MEDS: ASCORBIC ACID 500 MG TABLET GT SCH (09:44)
[2022-04-22] MEDS: PROSOURCE / PROSTAT (PYXIS) 30 ML UDC GT SCH ×2 (09:44→17:38)
[2022-04-22] MEDS: VITAMINS A AND D 56.7 GM TUBE TP SCH ×2 (09:44→20:44)
[2022-04-22] MEDS: FERROUS SULFATE (325 MG) 325 MG/TAB TABLET GT SCH (09:44)
[2022-04-22] MEDS: ZINC SULFATE 220 MG CAPSULE GT SCH (09:44)
--- NOTE | 2022-04-22 10:09 | NUR ---
Facility Update: PIERRE notified patient's family via email that: "Please note that a Sub-Acute employee tested positive for COVID-19. We continue to following [facility] Department of Public Healths infection control guidelines. [facility] will continue response testing and screened for symptoms. Staff will be tested twice a week and patients will be tested on a weekly basis. All visitation Guidelines remain the same". PIERRE also sent latest visitation guidelines.
[2022-04-22 12:06] VITALS: BP 119/60
[2022-04-22 12:30] VITALS: BP 119/60
[2022-04-22] MEDS: GLUCERNA 1.2 1,000 ML BOTTLE GT PRN (18:25)
[2022-04-22] MEDS: ENOXAPARIN SODIUM 40 MG/0.4 ML DISP.SYRIN SQ SCH (20:44)
[2022-04-22] MEDS: TAMSULOSIN 0.4 MG CAP.SR.24H GT SCH (21:07)
[2022-04-22] MEDS: MELATONIN 3 MG TABLET GT SCH (21:07)
[2022-04-22] MEDS: ATORVASTATIN 40 MG TABLET GT SCH (21:07)
[2022-04-22] MEDS: INSULIN GLARGINE, 100 UNIT/ML CARTRIDGE SQ SCH (21:25)
[2022-04-22 22:00] VITALS: BP 104/58
[2022-04-23] MEDS: BLOOD SUGAR DIAGNOSTIC 1 EACH STRIP IN SCH ×5 (00:15→23:55)
[2022-04-23] MEDS: POLYVINYL ALCOHOL 15 ML BOTTLE EACHEYE SCH ×5 (00:15→23:54)
[2022-04-23] MEDS: ALBUTEROL FS 2.5 MG/3 ML VIAL.NEB NEB SCH ×4 (02:02→20:17)
[2022-04-23] MEDS: INSULIN REGULAR, HUMAN 100 UNIT/ML 3 ML VIAL SQ SCH ×3 (05:03→18:00)
[2022-04-23 07:09] VITALS: BP 120/50
[2022-04-23] MEDS: HYDROGEN PEROXIDE 480 ML BOTTLE TP SCH ×2 (08:14→20:17)
[2022-04-23] MEDS: ASCORBIC ACID 500 MG TABLET GT SCH (08:53)
[2022-04-23] MEDS: PROSOURCE / PROSTAT (PYXIS) 30 ML UDC GT SCH ×2 (08:53→17:51)
[2022-04-23] MEDS: PANTOPRAZOLE 40 MG/PACK PACK GT SCH (08:53)
[2022-04-23] MEDS: FERROUS SULFATE (325 MG) 325 MG/TAB TABLET GT SCH (08:53)
[2022-04-23] MEDS: ZINC SULFATE 220 MG CAPSULE GT SCH (08:53)
[2022-04-23] MEDS: VITAMINS A AND D 56.7 GM TUBE TP SCH ×2 (08:54→20:52)
[2022-04-23 11:49] VITALS: BP 109/52
--- NOTE | 2022-04-23 16:10 | NUR ---
Called pt's Rosaline to follow-up on the Covid-19 second booster. She previously said she will think about it when it was offered. Automated message said "We're sorry your call cannot be completed at this time." Called her several times but was unable to reach her.
[2022-04-23 16:16] VITALS: BP 109/48
--- NOTE | 2022-04-23 16:54 | NUR ---
RT PT RECVD ON 28% COOL AEROSOL T-BAR AND KAILEE WELL.TRACH IS PATENT AND SECURED. SUCTION PRN, NEB TX GIVEN AND KAILEE WELL. VENT IS PLUGGED INTO RED OUTLET WITH ALARMS ON AND AUDIBLE. NO SOB OR RESPIRATORY DISTRESS NOTED
[2022-04-23] MEDS: GLUCERNA 1.2 1,000 ML BOTTLE GT PRN (18:02)
--- NOTE | 2022-04-23 20:18 | NUR ---
RT NOTE PATIENT RECEIVED ON COOL AEROSOL 28%. PATIENT IS TOLERATING CURRENT RESPIRATORY ORDERS WITHOUT RESPIRATORY DISTRESS. TRACH IS PATENT AND SECURE. EMERGENCY EQUIPMENT AT PATIENT BEDSIDE. WILL CONTINUE TO MONITOR PATIENT. Addendum: 04/23/22 at 2049 by AHSAN DICKERSON RT Amended: Links added.
[2022-04-23] MEDS: ENOXAPARIN SODIUM 40 MG/0.4 ML DISP.SYRIN SQ SCH (20:52)
[2022-04-23] MEDS: ATORVASTATIN 40 MG TABLET GT SCH (21:11)
[2022-04-23] MEDS: TAMSULOSIN 0.4 MG CAP.SR.24H GT SCH (21:11)
[2022-04-23] MEDS: MELATONIN 3 MG TABLET GT SCH (21:12)
[2022-04-23] MEDS: INSULIN GLARGINE, 100 UNIT/ML CARTRIDGE SQ SCH (21:17)
[2022-04-24] MEDS: ALBUTEROL FS 2.5 MG/3 ML VIAL.NEB NEB SCH ×4 (02:18→18:59)
[2022-04-24] MEDS: POLYVINYL ALCOHOL 15 ML BOTTLE EACHEYE SCH ×3 (05:44→17:28)
[2022-04-24] MEDS: BLOOD SUGAR DIAGNOSTIC 1 EACH STRIP IN SCH ×3 (05:44→17:42)
[2022-04-24] MEDS: INSULIN REGULAR, HUMAN 100 UNIT/ML 3 ML VIAL SQ SCH ×3 (05:45→17:43)
[2022-04-24 07:25] VITALS: BP 114/52
[2022-04-24] MEDS: ZINC SULFATE 220 MG CAPSULE GT SCH (09:00)
[2022-04-24] MEDS: FERROUS SULFATE (325 MG) 325 MG/TAB TABLET GT SCH (09:00)
[2022-04-24] MEDS: ASCORBIC ACID 500 MG TABLET GT SCH (09:00)
[2022-04-24] MEDS: PROSOURCE / PROSTAT (PYXIS) 30 ML UDC GT SCH ×2 (09:00→17:28)
[2022-04-24] MEDS: VITAMINS A AND D 56.7 GM TUBE TP SCH ×2 (09:00→21:20)
[2022-04-24] MEDS: PANTOPRAZOLE 40 MG/PACK PACK GT SCH (09:00)
[2022-04-24] MEDS: HYDROGEN PEROXIDE 480 ML BOTTLE TP SCH ×2 (09:27→20:52)
[2022-04-24 13:08] VITALS: BP 124/69
[2022-04-24] MEDS: GLUCERNA 1.2 1,000 ML BOTTLE GT PRN (17:29)
[2022-04-24 19:59] VITALS: BP 111/57
--- NOTE | 2022-04-24 20:16 | NUR ---
RT NOTE PT RECVD ON CA 28% AND STABLE, TRACH IS PATENT AND SECURED. SUCTION PRN, NEB TX GIVEN AND KAILEE WELL. NO S/S PF SOB OR RESPIRATORY DISTRESS NOTED.
[2022-04-24 21:00] VITALS: BP 111/57
[2022-04-24] MEDS: ATORVASTATIN 40 MG TABLET GT SCH (21:20)
[2022-04-24] MEDS: TAMSULOSIN 0.4 MG CAP.SR.24H GT SCH (21:20)
[2022-04-24] MEDS: ENOXAPARIN SODIUM 40 MG/0.4 ML DISP.SYRIN SQ SCH (21:20)
[2022-04-24] MEDS: MELATONIN 3 MG TABLET GT SCH (21:20)
[2022-04-24] MEDS: INSULIN GLARGINE, 100 UNIT/ML CARTRIDGE SQ SCH (21:45)
--- NOTE | 2022-04-24 21:46 | NUR ---
BS 72mg/dl, Lantus 14 units not given d/t low blood sugar . Will closely monitor for any change of condition.
[2022-04-25] VITALS (8 sets, daily range): BP systolic 97–139; BP diastolic 51–61
[2022-04-25] MEDS: POLYVINYL ALCOHOL 15 ML BOTTLE EACHEYE SCH ×5 (00:07→23:32)
[2022-04-25] MEDS: BLOOD SUGAR DIAGNOSTIC 1 EACH STRIP IN SCH ×5 (00:07→23:32)
[2022-04-25] MEDS: ALBUTEROL FS 2.5 MG/3 ML VIAL.NEB NEB SCH ×4 (00:43→19:09)
[2022-04-25] MEDS: INSULIN REGULAR, HUMAN 100 UNIT/ML 3 ML VIAL SQ SCH ×3 (05:31→17:20)
[2022-04-25] MEDS: FERROUS SULFATE (325 MG) 325 MG/TAB TABLET GT SCH (09:00)
[2022-04-25] MEDS: PROSOURCE / PROSTAT (PYXIS) 30 ML UDC GT SCH ×2 (09:00→16:04)
[2022-04-25] MEDS: ASCORBIC ACID 500 MG TABLET GT SCH (09:01)
[2022-04-25] MEDS: VITAMINS A AND D 56.7 GM TUBE TP SCH ×2 (09:01→21:50)
[2022-04-25] MEDS: ZINC SULFATE 220 MG CAPSULE GT SCH (09:01)
[2022-04-25] MEDS: HYDROGEN PEROXIDE 480 ML BOTTLE TP SCH ×2 (09:02→20:11)
[2022-04-25] MEDS: PANTOPRAZOLE 40 MG/PACK PACK GT SCH (09:03)
[2022-04-25] MEDS: GLUCERNA 1.2 1,000 ML BOTTLE GT PRN (09:58)
[2022-04-25] MEDS: ENOXAPARIN SODIUM 40 MG/0.4 ML DISP.SYRIN SQ SCH (21:49)
[2022-04-25] MEDS: MELATONIN 3 MG TABLET GT SCH (21:50)
[2022-04-25] MEDS: TAMSULOSIN 0.4 MG CAP.SR.24H GT SCH (21:50)
[2022-04-25] MEDS: ATORVASTATIN 40 MG TABLET GT SCH (21:50)
[2022-04-25] MEDS: INSULIN GLARGINE, 100 UNIT/ML CARTRIDGE SQ SCH (21:51)
[2022-04-26] VITALS (7 sets, daily range): BP systolic 110–134; BP diastolic 52–63
[2022-04-26] MEDS: ALBUTEROL FS 2.5 MG/3 ML VIAL.NEB NEB SCH ×4 (00:34→19:57)
[2022-04-26] MEDS: POLYVINYL ALCOHOL 15 ML BOTTLE EACHEYE SCH ×4 (05:22→23:59)
[2022-04-26] MEDS: BLOOD SUGAR DIAGNOSTIC 1 EACH STRIP IN SCH ×4 (05:37→23:59)
[2022-04-26] MEDS: INSULIN REGULAR, HUMAN 100 UNIT/ML 3 ML VIAL SQ SCH ×3 (05:38→18:28)
[2022-04-26] MEDS: HYDROGEN PEROXIDE 480 ML BOTTLE TP SCH ×2 (09:10→19:57)
[2022-04-26] MEDS: PROSOURCE / PROSTAT (PYXIS) 30 ML UDC GT SCH ×2 (09:42→17:46)
[2022-04-26] MEDS: FERROUS SULFATE (325 MG) 325 MG/TAB TABLET GT SCH (09:42)
[2022-04-26] MEDS: ASCORBIC ACID 500 MG TABLET GT SCH (09:42)
[2022-04-26] MEDS: PANTOPRAZOLE 40 MG/PACK PACK GT SCH (09:42)
[2022-04-26] MEDS: VITAMINS A AND D 56.7 GM TUBE TP SCH ×2 (09:42→21:06)
[2022-04-26] MEDS: ZINC SULFATE 220 MG CAPSULE GT SCH (09:42)
--- NOTE | 2022-04-26 15:43 | NUR ---
Facility Update: PIERRE notified patient's , Rosaline via email that: No Sub-Acute employee tested positive for COVID-19. We continue to following [facility] infection control guidelines. SOH will continue response testing and screened for symptoms. Staff will be tested twice a week and patients will be tested on a weekly basis. All visitation Guidelines remain the same". PIERRE educated family about latest guidelines from [facility] of [facility].
[2022-04-26] MEDS: TAMSULOSIN 0.4 MG CAP.SR.24H GT SCH (21:06)
[2022-04-26] MEDS: ENOXAPARIN SODIUM 40 MG/0.4 ML DISP.SYRIN SQ SCH (21:06)
[2022-04-26] MEDS: ATORVASTATIN 40 MG TABLET GT SCH (21:06)
[2022-04-26] MEDS: MELATONIN 3 MG TABLET GT SCH (21:06)
[2022-04-26] MEDS: INSULIN GLARGINE, 100 UNIT/ML CARTRIDGE SQ SCH (21:14)
[2022-04-26] MEDS: GLUCERNA 1.2 1,000 ML BOTTLE GT PRN (23:48)
[2022-04-27] MEDS: ALBUTEROL FS 2.5 MG/3 ML VIAL.NEB NEB SCH ×4 (01:50→20:04)
[2022-04-27 05:00] VITALS: BP 98/55
[2022-04-27] MEDS: POLYVINYL ALCOHOL 15 ML BOTTLE EACHEYE SCH ×3 (05:45→17:45)
[2022-04-27] MEDS: INSULIN REGULAR, HUMAN 100 UNIT/ML 3 ML VIAL SQ SCH ×3 (06:00→17:46)
--- NOTE | 2022-04-27 06:13 | NUR ---
RT NOTE Received pt on cool aerosol 5LPM, 28%. Pt placed on vent overnight per MD order, tolerating well. HHN TX's given, no A/R noted. Suctioned PRN, no SOB noted. Trach care done. Sterile water and HHN nebulizer changed.
[2022-04-27] MEDS: BLOOD SUGAR DIAGNOSTIC 1 EACH STRIP IN SCH ×3 (06:46→17:45)
--- NOTE | 2022-04-27 06:48 | NUR ---
0556 Bs 56 mg/dl. [place] 30 oz orange juice given via gt. Patient easily arousable. No distress. No discomfort noted. Will continue to monitor. 0645 Re check Bs 116 mg/dl. No coverage given per sliding scale. Patient awake No distress No discomfort noted. Kept clean dry and comfortable. Will endorse to am nurse accordingly.
--- NOTE | 2022-04-27 07:05 | NUR ---
RT NOTE Pt RECEIVED ON NOC CPAP VENT SETTINGS. PLACED ON CA @ 28% FiO2 PER DAYTIME ORDERS. Pt KAILEE. SWITCH WELL, NO RESP DISTRESS OR SOB NOTED.
[2022-04-27 07:17] VITALS: BP 134/66
[2022-04-27] MEDS: HYDROGEN PEROXIDE 480 ML BOTTLE TP SCH ×2 (09:33→20:04)
[2022-04-27] MEDS: ZINC SULFATE 220 MG CAPSULE GT SCH (09:35)
[2022-04-27] MEDS: PROSOURCE / PROSTAT (PYXIS) 30 ML UDC GT SCH ×2 (09:35→17:45)
[2022-04-27] MEDS: PANTOPRAZOLE 40 MG/PACK PACK GT SCH (09:35)
[2022-04-27] MEDS: ASCORBIC ACID 500 MG TABLET GT SCH (09:35)
[2022-04-27] MEDS: FERROUS SULFATE (325 MG) 325 MG/TAB TABLET GT SCH (09:35)
[2022-04-27] MEDS: VITAMINS A AND D 56.7 GM TUBE TP SCH ×2 (09:36→21:11)
[2022-04-27 13:01] VITALS: BP 116/59
[2022-04-27 13:30] VITALS: BP 116/59
[2022-04-27] MEDS: GLUCERNA 1.2 1,000 ML BOTTLE GT PRN (15:21)
[2022-04-27 18:59] VITALS: BP 130/69
[2022-04-27] MEDS: ENOXAPARIN SODIUM 40 MG/0.4 ML DISP.SYRIN SQ SCH (21:11)
[2022-04-27] MEDS: ATORVASTATIN 40 MG TABLET GT SCH (21:11)
[2022-04-27] MEDS: MELATONIN 3 MG TABLET GT SCH (21:11)
[2022-04-27] MEDS: TAMSULOSIN 0.4 MG CAP.SR.24H GT SCH (21:11)
[2022-04-27 21:12] VITALS: BP 130/69
[2022-04-27] MEDS: INSULIN GLARGINE, 100 UNIT/ML CARTRIDGE SQ SCH (22:11)
[2022-04-28] MEDS: POLYVINYL ALCOHOL 15 ML BOTTLE EACHEYE SCH ×4 (00:09→17:30)
[2022-04-28] MEDS: BLOOD SUGAR DIAGNOSTIC 1 EACH STRIP IN SCH ×4 (00:09→17:30)
[2022-04-28 00:34] VITALS: BP 126/68
[2022-04-28] MEDS: ALBUTEROL FS 2.5 MG/3 ML VIAL.NEB NEB SCH ×4 (01:26→20:17)
--- NOTE | 2022-04-28 04:50 | NUR ---
RT NOTE Received pt on cool aerosol 5LPM, 28%. Pt placed on vent overnight per MD order, tolerating well. HHN TX's given, no A/R noted. Suctioned PRN, no SOB noted. Trach care done. Sterile water and suction vera changed.
--- NOTE | 2022-04-28 04:51 | NUR ---
RT NOTE Pt has had small blood tinged secretions and had excessive secretions when on cool aerosol.
[2022-04-28 05:26] VITALS: BP 124/72
[2022-04-28] MEDS: INSULIN REGULAR, HUMAN 100 UNIT/ML 3 ML VIAL SQ SCH ×3 (05:28→17:31)
[2022-04-28 07:12] VITALS: BP 105/58
[2022-04-28] MEDS: HYDROGEN PEROXIDE 480 ML BOTTLE TP SCH ×2 (08:42→21:27)
[2022-04-28] MEDS: FERROUS SULFATE (325 MG) 325 MG/TAB TABLET GT SCH (09:38)
[2022-04-28] MEDS: ASCORBIC ACID 500 MG TABLET GT SCH (09:38)
[2022-04-28] MEDS: PANTOPRAZOLE 40 MG/PACK PACK GT SCH (09:38)
[2022-04-28] MEDS: PROSOURCE / PROSTAT (PYXIS) 30 ML UDC GT SCH ×2 (09:38→17:30)
[2022-04-28] MEDS: VITAMINS A AND D 56.7 GM TUBE TP SCH ×2 (09:38→20:47)
[2022-04-28] MEDS: ZINC SULFATE 220 MG CAPSULE GT SCH (09:38)
--- NOTE | 2022-04-28 11:43 | NUR ---
CN informed responsible constitution party that a subacute resident was tested positive for COVID-19. All residents were tested for COVID-19, pending result. [facility] will continue to follow infection control protocols and continue to monitor and screen all residents and staff for symptoms. [facility] to do testing per CDC guideline. Ms. Patricia appreciated the call. Resident stable, no fever, no s/s of distress and discomfort. Will continue to monitor.
[2022-04-28] MEDS: GLUCERNA 1.2 1,000 ML BOTTLE GT PRN (12:50)
[2022-04-28 14:00] VITALS: BP 118/60
--- NOTE | 2022-04-28 16:42 | NUR ---
RECEIVED PATIENT ON VENT. PLACED PATIENT ON COOL AEROSOL @ 28% PER WEANING PROTOCOL. HAS A TRACH SHILEY 6 CUFFED. AIRWAY PATENT AND SECURE. MODERATE THICK, YELLOW SECRETIONS NOTED. Q6 HHN TXS TOLERATING WELL WITH NO ADVERSE REACTION NOTED. AMBU BAG AND EMERGENCY TRACH AT THE BEDSIDE.
[2022-04-28 19:30] VITALS: BP 122/60
--- NOTE | 2022-04-28 20:17 | NUR ---
RT RECEIVED PT ON CA 28% 5LPM. TRACH PATENT AND SECURE. WILL SWITCH TO VENT AT MIDNIGHT. TOLERATING SETTINGS AND BREATHING TX. SPARE AND AMBU AT BEDSIDE. NO SOB OR RESP DISTRESS NOTED. Addendum: 04/28/22 at 2018 by Vishnu Lehman RT Amended: Links added.
[2022-04-28] MEDS: ENOXAPARIN SODIUM 40 MG/0.4 ML DISP.SYRIN SQ SCH (20:47)
[2022-04-28] MEDS: ATORVASTATIN 40 MG TABLET GT SCH (21:24)
[2022-04-28] MEDS: MELATONIN 3 MG TABLET GT SCH (21:24)
[2022-04-28] MEDS: TAMSULOSIN 0.4 MG CAP.SR.24H GT SCH (21:24)
[2022-04-28] MEDS: INSULIN GLARGINE, 100 UNIT/ML CARTRIDGE SQ SCH (21:26)
[2022-04-29] VITALS (7 sets, daily range): BP systolic 109–127; BP diastolic 56–73
[2022-04-29] MEDS: BLOOD SUGAR DIAGNOSTIC 1 EACH STRIP IN SCH ×4 (00:21→17:23)
[2022-04-29] MEDS: POLYVINYL ALCOHOL 15 ML BOTTLE EACHEYE SCH ×4 (00:21→17:23)
[2022-04-29] MEDS: ALBUTEROL FS 2.5 MG/3 ML VIAL.NEB NEB SCH ×4 (02:07→19:56)
[2022-04-29] MEDS: INSULIN REGULAR, HUMAN 100 UNIT/ML 3 ML VIAL SQ SCH ×3 (05:06→17:24)
--- NOTE | 2022-04-29 07:50 | NUR ---
RT NOTE: PT RECEIVED ALERT AND STABLE. UNABLE TO FOLLOW INSTRUCTION. PT ON CA AND ON CORRECT LITER FLOW. BAG AND MASK AT BEDSIDE AND SPARE TRACH. PT NOT IN DISTRESS. BILAT CHEST RISE AND BREATH SOUNDS OBSERVED WILL CONTINUE CURRENT THERAPY Addendum: 04/29/22 at 1710 by SHELTON MARION RT Amended: Links added.
[2022-04-29] MEDS: HYDROGEN PEROXIDE 480 ML BOTTLE TP SCH ×2 (09:00→19:56)
[2022-04-29] MEDS: PROSOURCE / PROSTAT (PYXIS) 30 ML UDC GT SCH ×2 (09:07→17:23)
[2022-04-29] MEDS: FERROUS SULFATE (325 MG) 325 MG/TAB TABLET GT SCH (09:07)
[2022-04-29] MEDS: PANTOPRAZOLE 40 MG/PACK PACK GT SCH (09:08)
[2022-04-29] MEDS: ZINC SULFATE 220 MG CAPSULE GT SCH (09:09)
[2022-04-29] MEDS: VITAMINS A AND D 56.7 GM TUBE TP SCH ×2 (09:09→21:28)
[2022-04-29] MEDS: ASCORBIC ACID 500 MG TABLET GT SCH (09:09)
[2022-04-29] MEDS: GLUCERNA 1.2 1,000 ML BOTTLE GT PRN (14:06)
[2022-04-29] MEDS: TAMSULOSIN 0.4 MG CAP.SR.24H GT SCH (21:28)
[2022-04-29] MEDS: ATORVASTATIN 40 MG TABLET GT SCH (21:28)
[2022-04-29] MEDS: ENOXAPARIN SODIUM 40 MG/0.4 ML DISP.SYRIN SQ SCH (21:28)
[2022-04-29] MEDS: MELATONIN 3 MG TABLET GT SCH (21:28)
[2022-04-29] MEDS: INSULIN GLARGINE, 100 UNIT/ML CARTRIDGE SQ SCH (21:30)
[2022-04-30] VITALS (7 sets, daily range): BP systolic 101–122; BP diastolic 57–65
--- NOTE | 2022-04-30 00:05 | NUR ---
RT NOTE PATIENT PLACED ON MECHANICAL VENT PER MD ORDERS. PATIENT IS IN STABLE CONDITION. PATIENT IS TOLERATING CURRENT ORDERED SETTINGS. NO SIGNS OF RESPIRATORY DISTRESS NOTED. TRACH IS PATENT AND SECURE. ALARMS ARE SET AND AUDIBLE. MECHANICAL VENT IS PLUGGED INTO RED OUTLET. EMERGENCY EQUIPMENT AT PATIENT BEDSIDE. Addendum: 04/30/22 at 0551 by AHSAN DICKERSON RT Amended: Links added.
[2022-04-30] MEDS: BLOOD SUGAR DIAGNOSTIC 1 EACH STRIP IN SCH ×4 (00:12→17:18)
[2022-04-30] MEDS: POLYVINYL ALCOHOL 15 ML BOTTLE EACHEYE SCH ×4 (00:12→17:18)
[2022-04-30] MEDS: ALBUTEROL FS 2.5 MG/3 ML VIAL.NEB NEB SCH ×4 (02:30→19:01)
[2022-04-30] MEDS: INSULIN REGULAR, HUMAN 100 UNIT/ML 3 ML VIAL SQ SCH ×3 (05:39→17:18)
[2022-04-30] MEDS: GLUCERNA 1.2 1,000 ML BOTTLE GT PRN (05:40)
[2022-04-30] MEDS: FERROUS SULFATE (325 MG) 325 MG/TAB TABLET GT SCH (08:40)
[2022-04-30] MEDS: ASCORBIC ACID 500 MG TABLET GT SCH (08:40)
[2022-04-30] MEDS: PANTOPRAZOLE 40 MG/PACK PACK GT SCH (08:40)
[2022-04-30] MEDS: VITAMINS A AND D 56.7 GM TUBE TP SCH ×2 (08:40→20:42)
[2022-04-30] MEDS: PROSOURCE / PROSTAT (PYXIS) 30 ML UDC GT SCH ×2 (08:40→16:26)
[2022-04-30] MEDS: ZINC SULFATE 220 MG CAPSULE GT SCH (08:40)
[2022-04-30] MEDS: HYDROGEN PEROXIDE 480 ML BOTTLE TP SCH ×2 (09:24→21:09)
--- NOTE | 2022-04-30 10:45 | NUR ---
Facility Update: PIERRE notified patient's , Rosaline via email that: Please note that a Sub-Acute employee tested positive for COVID-19. We continue to following [facility] Department of Public Healths infection control guidelines. [facility] will continue response testing and screened for symptoms. Staff will be tested twice a week and patients will be tested on a weekly basis. All visitation Guidelines remain the same". PIERRE also sent latest visitation guidelines.
--- NOTE | 2022-04-30 12:01 | NUR ---
RT RECEIVED PT ON VENT, SWITCHED TO CA 28% 5LPM ORDERED DURING DAY SHIFT. PT RECEIVED STABLE. TOLERATED BREATHING TXS WELL, AND NO SIGNS OF RESP DISTRESS OR SOB. CA IS TOLERATED. PT HAS MODERATE AMT OF THICK SECRETIONS, AND GIVEN COLD LAVAGE TO MINIMIZE BLEEDING. TRACH IS SECURED AND PATENT. SEAN AND MICHAEL ARE BEDSIDE. Addendum: 04/30/22 at 1204 by Vishnu Lehman RT Amended: Links added.
--- NOTE | 2022-04-30 16:28 | NUR ---
Pt's Rosaline visited pt. Offered the Covid-19 vaccine second booster dose. She said she is still thinking about it and mentioned that their children told her not to have the pt receive the second booster dose. Explained risks and benefits of the vaccine to her. She declined the booster dose at this time.
[2022-04-30] MEDS: ENOXAPARIN SODIUM 40 MG/0.4 ML DISP.SYRIN SQ SCH (20:42)
[2022-04-30] MEDS: ATORVASTATIN 40 MG TABLET GT SCH (21:19)
[2022-04-30] MEDS: MELATONIN 3 MG TABLET GT SCH (21:19)
[2022-04-30] MEDS: TAMSULOSIN 0.4 MG CAP.SR.24H GT SCH (21:19)
[2022-04-30] MEDS: INSULIN GLARGINE, 100 UNIT/ML CARTRIDGE SQ SCH (21:21)
--- NOTE | 2022-04-30 23:32 | NUR ---
RT NOTE PATIENT PLACED ON MECHANICAL VENT PER MD ORDERS. PATIENT IS IN STABLE CONDITION. PATIENT IS TOLERATING CURRENT ORDERED SETTINGS. NO S/S OF RESPIRATORY DISTRESS NOTED. TRACH IS PATENT AND SECURE. ALARMS ARE SET AND AUDIBLE. MECHANICAL VENT IS PLUGGED INTO RED OUTLET.
[2022-05-01] MEDS: POLYVINYL ALCOHOL 15 ML BOTTLE EACHEYE SCH ×5 (00:10→23:48)
[2022-05-01] MEDS: BLOOD SUGAR DIAGNOSTIC 1 EACH STRIP IN SCH ×5 (00:10→23:48)
[2022-05-01] MEDS: ALBUTEROL FS 2.5 MG/3 ML VIAL.NEB NEB SCH ×4 (00:49→19:57)
[2022-05-01] MEDS: GLUCERNA 1.2 1,000 ML BOTTLE GT PRN (01:34)
[2022-05-01 05:06] VITALS: BP 118/62
[2022-05-01] MEDS: INSULIN REGULAR, HUMAN 100 UNIT/ML 3 ML VIAL SQ SCH ×3 (05:54→17:55)
[2022-05-01 07:17] VITALS: BP 111/53
--- NOTE | 2022-05-01 08:23 | NUR ---
RT Patient received on vent. Place on cool aerosol 28% (5LPM). Breathing tx and suction tolerated well. Trach patent and secure. Ambu bag and back up trach at bedside. No SOB or respiratory distress noted at this time. Addendum: 05/01/22 at 1728 by ESPERANZA BOGGS RT Patient received on vent. Placed on cool aerosol 28% (5LPM). Breathing tx and suction tolerated well. Trach patent and secure. Ambu bag and back up trach at bedside. No SOB or respiratory distress noted at this time. Addendum: 05/01/22 at 1728 by ESPERANZA BOGGS RT Patient received on vent. Placed on cool aerosol 28% (5LPM). Breathing tx and suction tolerated well. Trach patent and secure. Ambu bag and back up trach at bedside. No SOB or respiratory distress noted at this time. Addendum: 05/01/22 at 1731 by ESPERANZA BOGGS RT Patient received on vent. Placed on cool aerosol 28% (5LPM). Breathing tx and suction tolerated well. Trach patent and secure. Ambu bag and back up trach at bedside. No SOB or respiratory distress noted at this time.
[2022-05-01] MEDS: HYDROGEN PEROXIDE 480 ML BOTTLE TP SCH ×2 (09:12→19:57)
[2022-05-01] MEDS: ASCORBIC ACID 500 MG TABLET GT SCH (09:24)
[2022-05-01] MEDS: FERROUS SULFATE (325 MG) 325 MG/TAB TABLET GT SCH (09:24)
[2022-05-01] MEDS: PROSOURCE / PROSTAT (PYXIS) 30 ML UDC GT SCH ×2 (09:24→17:54)
[2022-05-01] MEDS: VITAMINS A AND D 56.7 GM TUBE TP SCH ×2 (09:24→21:12)
[2022-05-01] MEDS: PANTOPRAZOLE 40 MG/PACK PACK GT SCH (09:24)
[2022-05-01] MEDS: ZINC SULFATE 220 MG CAPSULE GT SCH (09:24)
[2022-05-01 12:17] VITALS: BP 116/58
[2022-05-01 13:31] VITALS: BP 116/58
[2022-05-01 19:24] VITALS: BP 103/57
--- NOTE | 2022-05-01 19:57 | NUR ---
RT NOTE Pt rec'd trached on CA 28% fio2. No SOB noted at this time. Trach is patent and secured. Pt sx'd at this time. Will continue to monitor closely.
[2022-05-01] MEDS: ENOXAPARIN SODIUM 40 MG/0.4 ML DISP.SYRIN SQ SCH (21:12)
[2022-05-01] MEDS: MELATONIN 3 MG TABLET GT SCH (21:12)
[2022-05-01] MEDS: ATORVASTATIN 40 MG TABLET GT SCH (21:12)
[2022-05-01] MEDS: TAMSULOSIN 0.4 MG CAP.SR.24H GT SCH (21:12)
[2022-05-01] MEDS: INSULIN GLARGINE, 100 UNIT/ML CARTRIDGE SQ SCH (21:26)
--- NOTE | 2022-05-01 22:00 | NUR ---
Held insulin Lantus 14 units, BS 85. Pt awake, no distress noted. vs wnl. will monitor closely for any changes. cn aware.
[2022-05-01 22:18] VITALS: BP 108/60
--- NOTE | 2022-05-01 23:43 | NUR ---
PT PLACED ON [facility] VENT AT THIS TIME PER MD ORDER. NO RESP DISTRESS NOTED. WILL CONT TO MONITOR Addendum: 05/01/22 at 2344 by ARTEMIO SHAHID RT Amended: Links added.
[2022-05-02] VITALS (8 sets, daily range): BP systolic 106–124; BP diastolic 55–70
[2022-05-02] MEDS: ALBUTEROL FS 2.5 MG/3 ML VIAL.NEB NEB SCH ×4 (01:57→19:50)
[2022-05-02] MEDS: BLOOD SUGAR DIAGNOSTIC 1 EACH STRIP IN SCH ×4 (05:35→23:37)
[2022-05-02] MEDS: POLYVINYL ALCOHOL 15 ML BOTTLE EACHEYE SCH ×4 (05:35→23:22)
[2022-05-02] MEDS: INSULIN REGULAR, HUMAN 100 UNIT/ML 3 ML VIAL SQ SCH ×3 (05:36→17:24)
[2022-05-02] MEDS: HYDROGEN PEROXIDE 480 ML BOTTLE TP SCH ×2 (08:13→19:50)
[2022-05-02] MEDS: FERROUS SULFATE (325 MG) 325 MG/TAB TABLET GT SCH (08:52)
[2022-05-02] MEDS: ASCORBIC ACID 500 MG TABLET GT SCH (08:52)
[2022-05-02] MEDS: PROSOURCE / PROSTAT (PYXIS) 30 ML UDC GT SCH ×2 (08:52→17:22)
[2022-05-02] MEDS: PANTOPRAZOLE 40 MG/PACK PACK GT SCH (08:52)
[2022-05-02] MEDS: ZINC SULFATE 220 MG CAPSULE GT SCH (08:53)
[2022-05-02] MEDS: VITAMINS A AND D 56.7 GM TUBE TP SCH ×2 (08:53→21:32)
--- NOTE | 2022-05-02 09:20 | NUR ---
Virtual rounds done by KYLEE GibbsO given.
--- NOTE | 2022-05-02 15:00 | NUR ---
SS note: SW received notice from nursing that the pt.'s , Rosaline wanted to speak to SW. PIERRE met with Rosaline at bedside. Rosaline brought [facility] stating that request for sub acute level of care has been approved from -09/25/2022. Rosaline stated she is concerned as to how the payment will work after September. PIERRE told her that usually this is just a notice that treatment has been approved fro every 6 months and insurance continues to send notices. However, PIERRE will call Healthcare financial services department and ask to confirm about payment status after September. PIERRE will follow up as needed.
[2022-05-02] MEDS: GLUCERNA 1.2 1,000 ML BOTTLE GT PRN (15:45)
[2022-05-02] MEDS: POLYETHYLENE GLYCOL 3350 17 GM POWD.PACK GT PRN (18:41)
[2022-05-02] MEDS: TAMSULOSIN 0.4 MG CAP.SR.24H GT SCH (21:32)
[2022-05-02] MEDS: ENOXAPARIN SODIUM 40 MG/0.4 ML DISP.SYRIN SQ SCH (21:32)
[2022-05-02] MEDS: ATORVASTATIN 40 MG TABLET GT SCH (21:32)
[2022-05-02] MEDS: MELATONIN 3 MG TABLET GT SCH (21:32)
[2022-05-02] MEDS: INSULIN GLARGINE, 100 UNIT/ML CARTRIDGE SQ SCH (21:33)
[2022-05-03] VITALS (8 sets, daily range): BP systolic 100–127; BP diastolic 51–89
--- NOTE | 2022-05-03 00:07 | NUR ---
PT PLACED ON MECH VENT AT THIS TIME PER MD ORDER. NO RESP DISTRESS NOTED. WILL CONT TO MONITOR
[2022-05-03] MEDS: ALBUTEROL FS 2.5 MG/3 ML VIAL.NEB NEB SCH ×4 (02:04→20:14)
[2022-05-03] MEDS: BLOOD SUGAR DIAGNOSTIC 1 EACH STRIP IN SCH ×3 (05:21→17:58)
[2022-05-03] MEDS: POLYVINYL ALCOHOL 15 ML BOTTLE EACHEYE SCH ×3 (05:21→17:49)
[2022-05-03] MEDS: INSULIN REGULAR, HUMAN 100 UNIT/ML 3 ML VIAL SQ SCH ×3 (05:21→17:59)
[2022-05-03] MEDS: FERROUS SULFATE (325 MG) 325 MG/TAB TABLET GT SCH (08:35)
[2022-05-03] MEDS: PROSOURCE / PROSTAT (PYXIS) 30 ML UDC GT SCH ×2 (08:35→17:49)
[2022-05-03] MEDS: PANTOPRAZOLE 40 MG/PACK PACK GT SCH (08:36)
[2022-05-03] MEDS: VITAMINS A AND D 56.7 GM TUBE TP SCH ×2 (08:37→21:34)
[2022-05-03] MEDS: ZINC SULFATE 220 MG CAPSULE GT SCH (08:37)
[2022-05-03] MEDS: ASCORBIC ACID 500 MG TABLET GT SCH (08:37)
--- NOTE | 2022-05-03 08:40 | NUR ---
RT PT RECEIVED ON CPAP, SWITCHED TO CA 28% 5LPM UPON SHIFT START. NO RESP DISTRESS. TOLERATE BREATHING TX. TRACH PATENT AND SECURE. SPARE AND AMBU BEDSIDE. Addendum: 05/03/22 at 0841 by Vishnu Lehman RT Amended: Links added.
[2022-05-03] MEDS: HYDROGEN PEROXIDE 480 ML BOTTLE TP SCH ×2 (09:24→20:14)
[2022-05-03] MEDS: GLUCERNA 1.2 1,000 ML BOTTLE GT PRN (11:29)
[2022-05-03] MEDS: BISACODYL SUPP (10 MG) 10 MG/SUPP.RECT SUPP.RECT RC PRN (18:54)
[2022-05-03] MEDS: MELATONIN 3 MG TABLET GT SCH (21:34)
[2022-05-03] MEDS: TAMSULOSIN 0.4 MG CAP.SR.24H GT SCH (21:34)
[2022-05-03] MEDS: ATORVASTATIN 40 MG TABLET GT SCH (21:34)
[2022-05-03] MEDS: ENOXAPARIN SODIUM 40 MG/0.4 ML DISP.SYRIN SQ SCH (21:34)
[2022-05-03] MEDS: INSULIN GLARGINE, 100 UNIT/ML CARTRIDGE SQ SCH (21:39)
--- NOTE | 2022-05-03 22:03 | NUR ---
RT NOTE PT RECEIVED ON COOL AEROSOL @ 28%. AMBU BAG/BACK UP TRACH PRESENT. SPO2 > 92%. TRACH SECURED AND PATENT. VENT STANDBY. HHN TX GIVEN, NO ADVERSE REACTIONS NOTED. NO SOB NOTED AT THIS TIME. WILL CONTINUE TO MONITOR. Addendum: 05/03/22 at 2204 by MANISH GARCIA RT Amended: Links added.
[2022-05-04] VITALS (7 sets, daily range): BP systolic 105–115; BP diastolic 57–61
[2022-05-04] MEDS: POLYVINYL ALCOHOL 15 ML BOTTLE EACHEYE SCH ×4 (00:05→17:04)
[2022-05-04] MEDS: BLOOD SUGAR DIAGNOSTIC 1 EACH STRIP IN SCH ×4 (00:06→17:36)
[2022-05-04] MEDS: ALBUTEROL FS 2.5 MG/3 ML VIAL.NEB NEB SCH ×4 (02:14→19:10)
[2022-05-04] MEDS: INSULIN REGULAR, HUMAN 100 UNIT/ML 3 ML VIAL SQ SCH ×3 (05:51→17:38)
[2022-05-04] MEDS: GLUCERNA 1.2 1,000 ML BOTTLE GT PRN (05:52)
[2022-05-04] MEDS: HYDROGEN PEROXIDE 480 ML BOTTLE TP SCH ×2 (08:05→20:09)
[2022-05-04] MEDS: FERROUS SULFATE (325 MG) 325 MG/TAB TABLET GT SCH (09:00)
[2022-05-04] MEDS: PANTOPRAZOLE 40 MG/PACK PACK GT SCH (09:00)
[2022-05-04] MEDS: PROSOURCE / PROSTAT (PYXIS) 30 ML UDC GT SCH ×2 (09:00→17:04)
[2022-05-04] MEDS: VITAMINS A AND D 56.7 GM TUBE TP SCH ×2 (09:00→21:08)
[2022-05-04] MEDS: ASCORBIC ACID 500 MG TABLET GT SCH (09:00)
[2022-05-04] MEDS: ZINC SULFATE 220 MG CAPSULE GT SCH (09:00)
[2022-05-04] MEDS: ENOXAPARIN SODIUM 40 MG/0.4 ML DISP.SYRIN SQ SCH (21:07)
[2022-05-04] MEDS: TAMSULOSIN 0.4 MG CAP.SR.24H GT SCH (21:08)
[2022-05-04] MEDS: INSULIN GLARGINE, 100 UNIT/ML CARTRIDGE SQ SCH (21:08)
[2022-05-04] MEDS: ATORVASTATIN 40 MG TABLET GT SCH (21:08)
[2022-05-04] MEDS: MELATONIN 3 MG TABLET GT SCH (21:08)
--- NOTE | 2022-05-04 22:36 | NUR ---
Facility Update: PIERRE notified patient's family via email that: "Please note that a Sub-Acute employee tested positive for COVID-19. We continue to following [facility] Department of Public Healths infection control guidelines. [facility] will continue response testing and screened for symptoms. Staff will be tested twice a week and patients will be tested on a weekly basis. All visitation Guidelines remains the same". PIERRE also sent latest visitation guidelines.
--- NOTE | 2022-05-04 22:37 | NUR ---
Educated staff regarding isolation precautions, use of PPEs and hand hygiene. Pt. on contact and droplet isolation precautions per protocol due to Covid-19 exposure.
[2022-05-05] MEDS: POLYVINYL ALCOHOL 15 ML BOTTLE EACHEYE SCH ×4 (00:14→17:29)
[2022-05-05] MEDS: BLOOD SUGAR DIAGNOSTIC 1 EACH STRIP IN SCH ×4 (00:15→17:29)
[2022-05-05] MEDS: ALBUTEROL FS 2.5 MG/3 ML VIAL.NEB NEB SCH ×4 (00:39→19:52)
[2022-05-05] MEDS: GLUCERNA 1.2 1,000 ML BOTTLE GT PRN ×2 (02:12→18:24)
[2022-05-05 06:00] VITALS: BP 118/62
[2022-05-05] MEDS: INSULIN REGULAR, HUMAN 100 UNIT/ML 3 ML VIAL SQ SCH ×3 (06:28→17:29)
[2022-05-05 08:03] VITALS: BP 121/47
[2022-05-05] MEDS: ZINC SULFATE 220 MG CAPSULE GT SCH (09:13)
[2022-05-05] MEDS: ASCORBIC ACID 500 MG TABLET GT SCH (09:13)
[2022-05-05] MEDS: PANTOPRAZOLE 40 MG/PACK PACK GT SCH (09:13)
[2022-05-05] MEDS: PROSOURCE / PROSTAT (PYXIS) 30 ML UDC GT SCH ×2 (09:13→17:29)
[2022-05-05] MEDS: VITAMINS A AND D 56.7 GM TUBE TP SCH ×2 (09:13→20:41)
[2022-05-05] MEDS: FERROUS SULFATE (325 MG) 325 MG/TAB TABLET GT SCH (09:13)
[2022-05-05] MEDS: HYDROGEN PEROXIDE 480 ML BOTTLE TP SCH ×2 (10:13→19:52)
[2022-05-05 12:29] VITALS: BP 126/52
[2022-05-05 13:00] VITALS: BP 115/62
--- NOTE | 2022-05-05 16:00 | NUR ---
Informed responsible alliance party (rosaline) that a subacute staff was tested positive for COVID_19. Patient tested for COVID-19, pending result. [facility] will continue to follow infection control protocols and continue to monitor and screen all residents and staff for symptoms. Rosaline appreciated the call and stated that shes' coming to visit her later. Resident stable, no fever, no s/s of distress and discomfort. Will continue to monitor.
--- NOTE | 2022-05-05 17:00 | NUR ---
Patients' came to visit, assisted her to trimmed patients' fingernails due to patient being uncooperative, more responsive to his . Patient also showed her husbands' left great toe slightly discoloration to base of nail, no swelling noted,no pain noted. Will closely monitored and ask Standards Analyst to check left great toe.
[2022-05-05 20:26] VITALS: BP 99/58
[2022-05-05] MEDS: ENOXAPARIN SODIUM 40 MG/0.4 ML DISP.SYRIN SQ SCH (20:41)
[2022-05-05] MEDS: ATORVASTATIN 40 MG TABLET GT SCH (21:33)
[2022-05-05] MEDS: TAMSULOSIN 0.4 MG CAP.SR.24H GT SCH (21:33)
[2022-05-05] MEDS: MELATONIN 3 MG TABLET GT SCH (21:33)
[2022-05-05 21:34] VITALS: BP 99/58
[2022-05-05] MEDS: INSULIN GLARGINE, 100 UNIT/ML CARTRIDGE SQ SCH (21:34)
--- NOTE | 2022-05-05 23:48 | NUR ---
PT PLACED ON MECH VENT AT THIS TIME PER MD ORDER. NO RESP DISTRESS NOTED. WILL CONT TO MONITOR
[2022-05-06] MEDS: POLYVINYL ALCOHOL 15 ML BOTTLE EACHEYE SCH ×5 (00:26→23:16)
[2022-05-06] MEDS: ALBUTEROL FS 2.5 MG/3 ML VIAL.NEB NEB SCH ×4 (01:58→19:30)
[2022-05-06 05:03] VITALS: BP 116/65
[2022-05-06] MEDS: BLOOD SUGAR DIAGNOSTIC 1 EACH STRIP IN SCH ×5 (05:46→23:16)
[2022-05-06] MEDS: INSULIN REGULAR, HUMAN 100 UNIT/ML 3 ML VIAL SQ SCH ×3 (05:47→18:42)
[2022-05-06 07:32] VITALS: BP 148/82
--- NOTE | 2022-05-06 08:22 | NUR ---
RT RECEIVED PT ON CPAP UPON SHIFT CHANGE. SWITCHED TO CA 28% 5LPM. TOLERATES BREATHING TX, LRG AMT OF SECRETION DURING SUCTION.
--- NOTE | 2022-05-06 08:24 | NUR ---
RT RECEIVED PT ON CPAP MODE. SWITCHED TO CA 28% 5LPM. TOLERATES BREATHING TX. LRG AMT OF SECRETION DURING SUCTION. TRACH SECURE AND PATENT. SPARE AND AMBU BEDSIDE. Addendum: 05/06/22 at 0825 by Vishnu Lehman RT Amended: Links added.
[2022-05-06] MEDS: HYDROGEN PEROXIDE 480 ML BOTTLE TP SCH ×2 (09:23→20:49)
[2022-05-06] MEDS: VITAMINS A AND D 56.7 GM TUBE TP SCH ×2 (09:41→21:45)
[2022-05-06] MEDS: PANTOPRAZOLE 40 MG/PACK PACK GT SCH (09:41)
[2022-05-06] MEDS: ZINC SULFATE 220 MG CAPSULE GT SCH (09:41)
[2022-05-06] MEDS: FERROUS SULFATE (325 MG) 325 MG/TAB TABLET GT SCH (09:41)
[2022-05-06] MEDS: PROSOURCE / PROSTAT (PYXIS) 30 ML UDC GT SCH ×2 (09:41→17:00)
[2022-05-06] MEDS: ASCORBIC ACID 500 MG TABLET GT SCH (09:41)
[2022-05-06 11:51] VITALS: BP 126/58
[2022-05-06 13:20] VITALS: BP 126/58
[2022-05-06] MEDS: GLUCERNA 1.2 1,000 ML BOTTLE GT PRN (18:13)
[2022-05-06 20:24] VITALS: BP 117/64
[2022-05-06] MEDS: ENOXAPARIN SODIUM 40 MG/0.4 ML DISP.SYRIN SQ SCH (21:44)
[2022-05-06] MEDS: ATORVASTATIN 40 MG TABLET GT SCH (21:45)
[2022-05-06] MEDS: TAMSULOSIN 0.4 MG CAP.SR.24H GT SCH (21:45)
[2022-05-06] MEDS: MELATONIN 3 MG TABLET GT SCH (21:46)
[2022-05-06] MEDS: INSULIN GLARGINE, 100 UNIT/ML CARTRIDGE SQ SCH (21:51)
[2022-05-06 21:58] VITALS: BP 117/64
[2022-05-07] VITALS (7 sets, daily range): BP systolic 99–123; BP diastolic 53–69
[2022-05-07] MEDS: ALBUTEROL FS 2.5 MG/3 ML VIAL.NEB NEB SCH ×4 (01:58→20:19)
[2022-05-07] MEDS: POLYVINYL ALCOHOL 15 ML BOTTLE EACHEYE SCH ×4 (05:52→23:26)
[2022-05-07] MEDS: BLOOD SUGAR DIAGNOSTIC 1 EACH STRIP IN SCH ×4 (05:52→23:26)
[2022-05-07] MEDS: INSULIN REGULAR, HUMAN 100 UNIT/ML 3 ML VIAL SQ SCH ×3 (05:53→17:23)
[2022-05-07] MEDS: ASCORBIC ACID 500 MG TABLET GT SCH (09:00)
[2022-05-07] MEDS: ZINC SULFATE 220 MG CAPSULE GT SCH (09:00)
[2022-05-07] MEDS: FERROUS SULFATE (325 MG) 325 MG/TAB TABLET GT SCH (09:00)
[2022-05-07] MEDS: VITAMINS A AND D 56.7 GM TUBE TP SCH ×2 (09:00→21:34)
[2022-05-07] MEDS: PANTOPRAZOLE 40 MG/PACK PACK GT SCH (09:00)
[2022-05-07] MEDS: HYDROGEN PEROXIDE 480 ML BOTTLE TP SCH ×2 (09:00→20:19)
[2022-05-07] MEDS: PROSOURCE / PROSTAT (PYXIS) 30 ML UDC GT SCH ×2 (09:00→16:05)
--- NOTE | 2022-05-07 09:30 | NUR ---
Virtual rounds done by Dr. Colón, Patient tolerating current ventilator setting, cool aerosol during the day and ventilator at night. No new order given at this time.
[2022-05-07] MEDS: GLUCERNA 1.2 1,000 ML BOTTLE GT PRN (12:22)
--- NOTE | 2022-05-07 13:08 | NUR ---
Facility Update: PIERRE notified patient's , Rosaline via email that: Please note that a Sub-Acute employee tested positive for COVID-19 over the weekend and another on Friday. We continue to following [facility] Department of Public Healths infection control guidelines. [facility] will continue response testing and screened for symptoms. Staff will be tested twice a week and patients will be tested on a weekly basis. All visitation Guidelines remain the same". PIERRE also sent latest visitation guidelines.
[2022-05-07] MEDS: ENOXAPARIN SODIUM 40 MG/0.4 ML DISP.SYRIN SQ SCH (21:34)
[2022-05-07] MEDS: MELATONIN 3 MG TABLET GT SCH (21:34)
[2022-05-07] MEDS: TAMSULOSIN 0.4 MG CAP.SR.24H GT SCH (21:34)
[2022-05-07] MEDS: ATORVASTATIN 40 MG TABLET GT SCH (21:34)
[2022-05-07] MEDS: INSULIN GLARGINE, 100 UNIT/ML CARTRIDGE SQ SCH (21:35)
--- NOTE | 2022-05-07 23:44 | NUR ---
PT PLACED ON MECH VENT AT THIS TIME PER MD ORDER. NO RESP DISTRESS NOTED. WILL CONT TO MONITOR
[2022-05-08] MEDS: ALBUTEROL FS 2.5 MG/3 ML VIAL.NEB NEB SCH ×4 (02:05→20:05)
[2022-05-08 05:20] VITALS: BP 106/60
[2022-05-08] MEDS: BLOOD SUGAR DIAGNOSTIC 1 EACH STRIP IN SCH ×4 (05:38→23:40)
[2022-05-08] MEDS: POLYVINYL ALCOHOL 15 ML BOTTLE EACHEYE SCH ×4 (05:38→23:40)
[2022-05-08] MEDS: INSULIN REGULAR, HUMAN 100 UNIT/ML 3 ML VIAL SQ SCH ×3 (05:39→18:10)
[2022-05-08 07:20] VITALS: BP 114/70
--- NOTE | 2022-05-08 07:40 | NUR ---
RT NOTE: PT RECEIVED STABLE UNABLE TO FOLLOW COMMANDS. REACTIVE TO STIM. PT TRACH PATENT AND SECURE. PT ON CA ON CORRECT LITER FLOW. BAG AND MASK AT BEDSIDE AND SPARE TRACH. PT SHOWS NO SIGNS OF DISTRESS. BILAT BREATH SOUNDS AND CHEST RISE OBSERVED WILL CONTINUE CURRENT THERAPY. Addendum: 05/08/22 at 1042 by SHELTON MARION RT Amended: Links added.
[2022-05-08] MEDS: HYDROGEN PEROXIDE 480 ML BOTTLE TP SCH ×2 (09:00→20:05)
[2022-05-08] MEDS: PROSOURCE / PROSTAT (PYXIS) 30 ML UDC GT SCH ×2 (09:42→17:28)
[2022-05-08] MEDS: FERROUS SULFATE (325 MG) 325 MG/TAB TABLET GT SCH (09:42)
[2022-05-08] MEDS: PANTOPRAZOLE 40 MG/PACK PACK GT SCH (09:42)
[2022-05-08] MEDS: ZINC SULFATE 220 MG CAPSULE GT SCH (09:43)
[2022-05-08] MEDS: ASCORBIC ACID 500 MG TABLET GT SCH (09:43)
[2022-05-08] MEDS: VITAMINS A AND D 56.7 GM TUBE TP SCH ×2 (09:43→21:49)
[2022-05-08 12:13] VITALS: BP 98/58
[2022-05-08 13:54] VITALS: BP 110/62
--- NOTE | 2022-05-08 13:54 | NUR ---
Family Invite to IDT: SW emailed the patient's , Rosaline to invite them to participate in 05/10/22 12:30p IDT meeting via phone conference. PIERRE will follow up accordingly.
[2022-05-08 19:38] VITALS: BP 124/55
[2022-05-08 21:00] VITALS: BP 124/55
[2022-05-08] MEDS: ATORVASTATIN 40 MG TABLET GT SCH (21:49)
[2022-05-08] MEDS: MELATONIN 3 MG TABLET GT SCH (21:49)
[2022-05-08] MEDS: TAMSULOSIN 0.4 MG CAP.SR.24H GT SCH (21:49)
[2022-05-08] MEDS: ENOXAPARIN SODIUM 40 MG/0.4 ML DISP.SYRIN SQ SCH (21:49)
[2022-05-08] MEDS: INSULIN GLARGINE, 100 UNIT/ML CARTRIDGE SQ SCH (21:50)
--- NOTE | 2022-05-08 22:49 | NUR ---
PT PLACED ON MECH VENT AT THIS TIME PER MD ORDER. NO RESP DISTRESS NOTED. WILL CONT TO MONITOR
[2022-05-09 00:38] VITALS: BP 143/60
[2022-05-09] MEDS: ALBUTEROL FS 2.5 MG/3 ML VIAL.NEB NEB SCH ×4 (01:56→20:26)
[2022-05-09] MEDS: POLYVINYL ALCOHOL 15 ML BOTTLE EACHEYE SCH ×3 (06:00→17:02)
[2022-05-09] MEDS: BLOOD SUGAR DIAGNOSTIC 1 EACH STRIP IN SCH ×3 (06:00→17:51)
[2022-05-09] MEDS: INSULIN REGULAR, HUMAN 100 UNIT/ML 3 ML VIAL SQ SCH ×3 (06:01→17:52)
[2022-05-09] MEDS: GLUCERNA 1.2 1,000 ML BOTTLE GT PRN ×2 (06:01→19:02)
[2022-05-09 07:27] VITALS: BP 122/69
--- NOTE | 2022-05-09 07:40 | NUR ---
RT NOTE: PT RECEIVED STABLE UNABLE TO FOLLOW COMMANDS. REACTIVE TO STIM. PT TRACH PATENT AND SECURE. PT ON CA ON CORRECT LITER FLOW. BAG AND MASK AT BEDSIDE AND SPARE TRACH. PT SHOWS NO SIGNS OF DISTRESS. BILAT BREATH SOUNDS AND CHEST RISE OBSERVED WILL CONTINUE CURRENT THERAPY. Addendum: 05/09/22 at 1547 by SHELTON MARION RT Amended: Links added.
[2022-05-09] MEDS: HYDROGEN PEROXIDE 480 ML BOTTLE TP SCH ×2 (09:04→21:01)
[2022-05-09] MEDS: PANTOPRAZOLE 40 MG/PACK PACK GT SCH (09:23)
[2022-05-09] MEDS: ASCORBIC ACID 500 MG TABLET GT SCH (09:23)
[2022-05-09] MEDS: ZINC SULFATE 220 MG CAPSULE GT SCH (09:23)
[2022-05-09] MEDS: PROSOURCE / PROSTAT (PYXIS) 30 ML UDC GT SCH ×2 (09:23→17:02)
[2022-05-09] MEDS: VITAMINS A AND D 56.7 GM TUBE TP SCH ×2 (09:23→21:15)
[2022-05-09] MEDS: FERROUS SULFATE (325 MG) 325 MG/TAB TABLET GT SCH (09:23)
[2022-05-09 12:16] VITALS: BP 98/59
[2022-05-09 19:31] VITALS: BP 119/58
[2022-05-09] MEDS: ENOXAPARIN SODIUM 40 MG/0.4 ML DISP.SYRIN SQ SCH (21:15)
[2022-05-09] MEDS: ATORVASTATIN 40 MG TABLET GT SCH (21:15)
[2022-05-09] MEDS: TAMSULOSIN 0.4 MG CAP.SR.24H GT SCH (21:15)
[2022-05-09] MEDS: MELATONIN 3 MG TABLET GT SCH (21:15)
[2022-05-09] MEDS: INSULIN GLARGINE, 100 UNIT/ML CARTRIDGE SQ SCH (21:16)
[2022-05-10] MEDS: POLYVINYL ALCOHOL 15 ML BOTTLE EACHEYE SCH ×5 (00:13→23:09)
[2022-05-10] MEDS: BLOOD SUGAR DIAGNOSTIC 1 EACH STRIP IN SCH ×5 (00:13→23:37)
[2022-05-10] MEDS: ALBUTEROL FS 2.5 MG/3 ML VIAL.NEB NEB SCH ×4 (02:07→20:44)
--- NOTE | 2022-05-10 05:01 | NUR ---
RT pt received on CA 28%. ambu bag at bedside. spare trach at bedside. no sob/resp distress noted. suctioned via trach. pt is very productive. placed on mechanical vent around 2300. settings CPAP PS 10 30% +5. trached, shiley 8. vent plugged in to red outlet. alarms on and audible. trach care performed. monitored throughout shift. shift uneventful.
[2022-05-10] MEDS: INSULIN REGULAR, HUMAN 100 UNIT/ML 3 ML VIAL SQ SCH ×3 (05:58→17:49)
[2022-05-10 07:31] VITALS: BP 103/54
[2022-05-10] MEDS: ASPIRIN 81 MG TAB.CHEW GT SCH (09:07)
[2022-05-10] MEDS: PROSOURCE / PROSTAT (PYXIS) 30 ML UDC GT SCH ×2 (09:07→17:29)
[2022-05-10] MEDS: VITAMINS A AND D 56.7 GM TUBE TP SCH ×2 (09:07→21:00)
[2022-05-10] MEDS: ASCORBIC ACID 500 MG TABLET GT SCH (09:07)
[2022-05-10] MEDS: FERROUS SULFATE (325 MG) 325 MG/TAB TABLET GT SCH (09:07)
[2022-05-10] MEDS: ZINC SULFATE 220 MG CAPSULE GT SCH (09:07)
[2022-05-10] MEDS: PANTOPRAZOLE 40 MG/PACK PACK GT SCH (09:07)
[2022-05-10] MEDS: HYDROGEN PEROXIDE 480 ML BOTTLE TP SCH ×2 (09:16→21:01)
[2022-05-10 12:09] VITALS: BP 91/59
--- NOTE | 2022-05-10 14:45 | NUR ---
INTERDISCIPLINARY PLAN OF CARE CONFERENCE took place today. The patients , Rosaline [phone] Colón and Interdisciplinary team discussed the plan of care in detail. Current orders as well as treatments and medications were reviewed. No new orders.
[2022-05-10] MEDS: GLUCERNA 1.2 1,000 ML BOTTLE GT PRN (17:27)
[2022-05-10 19:47] VITALS: BP 133/58
--- NOTE | 2022-05-10 20:44 | NUR ---
RCVD PT TRACHED ON CA 28% ,5L. Q6 BREATHING TX. GIVEN PER MD'S ORDER. NO ADVERSE REACTION NOTED . NO SOB OR RESP DISTRESS NOTED AT THIS TIME. TRACH IS PATENT AND SECURED . PT SUCTIONED AT THIS TIME. WILL CONTINUE TO MONITOR T/O SHIFT.
[2022-05-10] MEDS: ENOXAPARIN SODIUM 40 MG/0.4 ML DISP.SYRIN SQ SCH (20:59)
[2022-05-10] MEDS: TAMSULOSIN 0.4 MG CAP.SR.24H GT SCH (21:00)
[2022-05-10] MEDS: ATORVASTATIN 40 MG TABLET GT SCH (21:00)
[2022-05-10] MEDS: MELATONIN 3 MG TABLET GT SCH (21:00)
[2022-05-10] MEDS: INSULIN GLARGINE, 100 UNIT/ML CARTRIDGE SQ SCH (21:27)
--- NOTE | 2022-05-10 23:40 | NUR ---
PT PLACED ON MECH VENT AT THIS TIME PER MD'S ORDER. NO RESP DISTRESS NOTED. WILL CONT TO MONITOR
[2022-05-10 23:42] VITALS: BP 130/56
[2022-05-11] MEDS: ALBUTEROL FS 2.5 MG/3 ML VIAL.NEB NEB SCH ×4 (02:18→20:25)
[2022-05-11] MEDS: POLYVINYL ALCOHOL 15 ML BOTTLE EACHEYE SCH ×4 (05:08→23:05)
[2022-05-11] MEDS: BLOOD SUGAR DIAGNOSTIC 1 EACH STRIP IN SCH ×3 (05:09→17:18)
[2022-05-11] MEDS: INSULIN REGULAR, HUMAN 100 UNIT/ML 3 ML VIAL SQ SCH ×3 (05:09→17:18)
[2022-05-11 07:27] VITALS: BP 158/75
[2022-05-11] MEDS: HYDROGEN PEROXIDE 480 ML BOTTLE TP SCH ×2 (08:22→21:33)
[2022-05-11] MEDS: FERROUS SULFATE (325 MG) 325 MG/TAB TABLET GT SCH (09:00)
[2022-05-11] MEDS: PROSOURCE / PROSTAT (PYXIS) 30 ML UDC GT SCH ×2 (09:00→16:18)
[2022-05-11] MEDS: VITAMINS A AND D 56.7 GM TUBE TP SCH ×2 (09:00→20:02)
[2022-05-11] MEDS: ASPIRIN 81 MG TAB.CHEW GT SCH (09:00)
[2022-05-11] MEDS: PANTOPRAZOLE 40 MG/PACK PACK GT SCH (09:00)
[2022-05-11] MEDS: ZINC SULFATE 220 MG CAPSULE GT SCH (09:00)
[2022-05-11] MEDS: ASCORBIC ACID 500 MG TABLET GT SCH (09:00)
[2022-05-11] MEDS: GLUCERNA 1.2 1,000 ML BOTTLE GT PRN (11:08)
--- NOTE | 2022-05-11 11:08 | NUR ---
RT Patient received on vent. Placed on cool aerosol 28% (5LPM). Breathing tx and suction tolerated well. Trach patent and secure. Ambu bag and back up trach at bedside. No SOB or respiratory distress noted at this time.
[2022-05-11 13:31] VITALS: BP 126/59
--- NOTE | 2022-05-11 17:45 | NUR ---
RT Patient placed back on vent (CPAP PS 10 30% +5) due to increased work of breathing. android ios developerCHIKI Nolasco notified.
[2022-05-11 19:38] VITALS: BP 134/77
[2022-05-11] MEDS: ENOXAPARIN SODIUM 40 MG/0.4 ML DISP.SYRIN SQ SCH (20:02)
--- NOTE | 2022-05-11 20:25 | NUR ---
Patient received on vent, CPAP 30%, PS 10, +5 and tolerating well. Airway patent and secured. Q6 breathing tx given, tolerated well without adverse effect. Suction PRN. No sob or respiratory distress noted at this time. Spare trach and ambu bag at bedside. Vent plugged in red outlet, alarms on and audible. Will continue to monitor t/o shift.
[2022-05-11] MEDS: ATORVASTATIN 40 MG TABLET GT SCH (21:14)
[2022-05-11] MEDS: INSULIN GLARGINE, 100 UNIT/ML CARTRIDGE SQ SCH (21:15)
[2022-05-11] MEDS: MELATONIN 3 MG TABLET GT SCH (21:15)
[2022-05-11] MEDS: TAMSULOSIN 0.4 MG CAP.SR.24H GT SCH (21:15)
[2022-05-11 23:23] VITALS: BP 131/58
[2022-05-12] MEDS: BLOOD SUGAR DIAGNOSTIC 1 EACH STRIP IN SCH ×5 (00:05→23:36)
[2022-05-12] MEDS: ALBUTEROL FS 2.5 MG/3 ML VIAL.NEB NEB SCH ×4 (02:02→19:56)
[2022-05-12] MEDS: GLUCERNA 1.2 1,000 ML BOTTLE GT PRN ×2 (05:14→22:53)
[2022-05-12] MEDS: POLYVINYL ALCOHOL 15 ML BOTTLE EACHEYE SCH ×4 (05:14→23:36)
[2022-05-12] MEDS: INSULIN REGULAR, HUMAN 100 UNIT/ML 3 ML VIAL SQ SCH ×3 (05:42→17:35)
[2022-05-12 07:18] VITALS: BP 125/72
--- NOTE | 2022-05-12 08:47 | NUR ---
RT Pt. received on vent. Placed on cool aerosol 28% (5LPM). Trach patent and secure. Ambubag and back up trach at bedside. No SOB or respiratory distress noted at this time. Will continue to monitor the pt.
[2022-05-12] MEDS: PROSOURCE / PROSTAT (PYXIS) 30 ML UDC GT SCH ×2 (09:24→17:34)
[2022-05-12] MEDS: ASPIRIN 81 MG TAB.CHEW GT SCH (09:24)
[2022-05-12] MEDS: PANTOPRAZOLE 40 MG/PACK PACK GT SCH (09:24)
[2022-05-12] MEDS: ZINC SULFATE 220 MG CAPSULE GT SCH (09:24)
[2022-05-12] MEDS: VITAMINS A AND D 56.7 GM TUBE TP SCH ×2 (09:24→20:40)
[2022-05-12] MEDS: FERROUS SULFATE (325 MG) 325 MG/TAB TABLET GT SCH (09:24)
[2022-05-12] MEDS: ASCORBIC ACID 500 MG TABLET GT SCH (09:24)
[2022-05-12] MEDS: HYDROGEN PEROXIDE 480 ML BOTTLE TP SCH ×2 (09:49→19:56)
[2022-05-12 12:14] VITALS: BP 143/71
[2022-05-12 19:12] VITALS: BP 115/60
[2022-05-12] MEDS: ENOXAPARIN SODIUM 40 MG/0.4 ML DISP.SYRIN SQ SCH (20:40)
[2022-05-12] MEDS: INSULIN GLARGINE, 100 UNIT/ML CARTRIDGE SQ SCH (21:08)
[2022-05-12] MEDS: MELATONIN 3 MG TABLET GT SCH (21:08)
[2022-05-12] MEDS: ATORVASTATIN 40 MG TABLET GT SCH (21:08)
[2022-05-12] MEDS: TAMSULOSIN 0.4 MG CAP.SR.24H GT SCH (21:08)
[2022-05-12 23:53] VITALS: BP 119/67
[2022-05-13] MEDS: ALBUTEROL FS 2.5 MG/3 ML VIAL.NEB NEB SCH ×4 (01:37→20:20)
--- NOTE | 2022-05-13 05:21 | NUR ---
RT Notes Pt received trached on cool mist aerosol via t-piece. Pt placed on mech vent on AC mode per MD orders at midnight. No resp distress/SOB noted throughout shift. Pt suctioned. HHN TXs given with no adverse reactions. Back up trach and ambubag at bedside. Will cont to monitor.
[2022-05-13] MEDS: BLOOD SUGAR DIAGNOSTIC 1 EACH STRIP IN SCH ×3 (05:28→17:56)
[2022-05-13] MEDS: POLYVINYL ALCOHOL 15 ML BOTTLE EACHEYE SCH ×3 (05:28→17:56)
[2022-05-13] MEDS: INSULIN REGULAR, HUMAN 100 UNIT/ML 3 ML VIAL SQ SCH ×3 (05:28→17:57)
[2022-05-13 07:29] VITALS: BP 102/56
--- NOTE | 2022-05-13 07:50 | NUR ---
RT NOTE: PT RECEIVED STABLE UNABLE TO FOLLOW COMMANDS. REACTIVE TO STIM. PT TRACH PATENT AND SECURE. PT ON CA ON CORRECT LITER FLOW. BAG AND MASK AT BEDSIDE AND SPARE TRACH. PT SHOWS NO SIGNS OF DISTRESS. BILAT BREATH SOUNDS AND CHEST RISE OBSERVED WILL CONTINUE CURRENT THERAPY. Addendum: 05/13/22 at 1637 by SHELTON MARION RT Amended: Links added.
[2022-05-13] MEDS: HYDROGEN PEROXIDE 480 ML BOTTLE TP SCH ×2 (09:51→20:20)
[2022-05-13] MEDS: FERROUS SULFATE (325 MG) 325 MG/TAB TABLET GT SCH (09:54)
[2022-05-13] MEDS: ZINC SULFATE 220 MG CAPSULE GT SCH (09:54)
[2022-05-13] MEDS: VITAMINS A AND D 56.7 GM TUBE TP SCH ×2 (09:54→21:26)
[2022-05-13] MEDS: ASPIRIN 81 MG TAB.CHEW GT SCH (09:54)
[2022-05-13] MEDS: ASCORBIC ACID 500 MG TABLET GT SCH (09:54)
[2022-05-13] MEDS: PROSOURCE / PROSTAT (PYXIS) 30 ML UDC GT SCH ×2 (09:54→17:23)
[2022-05-13] MEDS: PANTOPRAZOLE 40 MG/PACK PACK GT SCH (09:55)
--- NOTE | 2022-05-13 11:53 | NUR ---
Facility Update: PIERRE notified patient's , Rosaline via email that: Please note that a Sub-Acute employee tested positive for COVID-19 over the weekend and another on Friday. We continue to following [facility] Department of Public Healths infection control guidelines. [facility] will continue response testing and screened for symptoms. Staff will be tested twice a week and patients will be tested on a weekly basis. All visitation Guidelines remain the same". PIERRE also sent latest visitation guidelines.
[2022-05-13 13:16] VITALS: BP 136/55
[2022-05-13 20:24] VITALS: BP 99/53
[2022-05-13] MEDS: MELATONIN 3 MG TABLET GT SCH (21:26)
[2022-05-13] MEDS: ATORVASTATIN 40 MG TABLET GT SCH (21:26)
[2022-05-13] MEDS: ENOXAPARIN SODIUM 40 MG/0.4 ML DISP.SYRIN SQ SCH (21:26)
[2022-05-13] MEDS: TAMSULOSIN 0.4 MG CAP.SR.24H GT SCH (21:26)
[2022-05-13] MEDS: INSULIN GLARGINE, 100 UNIT/ML CARTRIDGE SQ SCH (21:27)
[2022-05-13] MEDS: GLUCERNA 1.2 1,000 ML BOTTLE GT PRN (21:32)
[2022-05-14] MEDS: POLYVINYL ALCOHOL 15 ML BOTTLE EACHEYE SCH ×5 (00:28→23:43)
[2022-05-14] MEDS: BLOOD SUGAR DIAGNOSTIC 1 EACH STRIP IN SCH ×5 (00:28→23:43)
[2022-05-14] MEDS: ALBUTEROL FS 2.5 MG/3 ML VIAL.NEB NEB SCH ×4 (01:51→19:40)
[2022-05-14] MEDS: INSULIN REGULAR, HUMAN 100 UNIT/ML 3 ML VIAL SQ SCH ×3 (05:59→17:52)
[2022-05-14 07:37] VITALS: BP 158/69
--- NOTE | 2022-05-14 07:50 | NUR ---
RT NOTE: PT RECEIVED STABLE UNABLE TO FOLLOW COMMANDS. REACTIVE TO STIM. PT TRACH PATENT AND SECURE. PT ON CA ON CORRECT LITER FLOW. BAG AND MASK AT BEDSIDE AND SPARE TRACH. PT SHOWS NO SIGNS OF DISTRESS. BILAT BREATH SOUNDS AND CHEST RISE OBSERVED WILL CONTINUE CURRENT THERAPY. Addendum: 05/14/22 at 1637 by SHELTON MARION RT Amended: Links added.
[2022-05-14] MEDS: PROSOURCE / PROSTAT (PYXIS) 30 ML UDC GT SCH ×2 (09:00→16:38)
[2022-05-14] MEDS: VITAMINS A AND D 56.7 GM TUBE TP SCH ×2 (09:00→21:33)
[2022-05-14] MEDS: ASCORBIC ACID 500 MG TABLET GT SCH (09:00)
[2022-05-14] MEDS: ZINC SULFATE 220 MG CAPSULE GT SCH (09:00)
[2022-05-14] MEDS: PANTOPRAZOLE 40 MG/PACK PACK GT SCH (09:00)
[2022-05-14] MEDS: ASPIRIN 81 MG TAB.CHEW GT SCH (09:00)
[2022-05-14] MEDS: FERROUS SULFATE (325 MG) 325 MG/TAB TABLET GT SCH (09:00)
[2022-05-14] MEDS: HYDROGEN PEROXIDE 480 ML BOTTLE TP SCH ×2 (09:21→19:40)
[2022-05-14 10:00] VITALS: BP 158/69
[2022-05-14 14:30] VITALS: BP 131/71
[2022-05-14] MEDS: GLUCERNA 1.2 1,000 ML BOTTLE GT PRN (15:23)
[2022-05-14 20:44] VITALS: BP 116/61
[2022-05-14] MEDS: TAMSULOSIN 0.4 MG CAP.SR.24H GT SCH (21:33)
[2022-05-14] MEDS: ENOXAPARIN SODIUM 40 MG/0.4 ML DISP.SYRIN SQ SCH (21:33)
[2022-05-14] MEDS: ATORVASTATIN 40 MG TABLET GT SCH (21:33)
[2022-05-14] MEDS: MELATONIN 3 MG TABLET GT SCH (21:33)
[2022-05-14] MEDS: INSULIN GLARGINE, 100 UNIT/ML CARTRIDGE SQ SCH (21:34)
[2022-05-15] MEDS: ALBUTEROL FS 2.5 MG/3 ML VIAL.NEB NEB SCH ×4 (01:48→20:06)
--- NOTE | 2022-05-15 04:21 | NUR ---
PATIENT RECEIVED ON 28% AEROSOL T-TUBE THEN PLACED BACK ON VENT SUPPORT WITH SETTINGS OF CPAP 5, PS 10, 30%. SUCTIONED FOR MODERATE, THIN, WHITE SECRETIONS. GIVEN IN-LINE TREATMENTS WITH NO ADVERSE REACTIONS. AMBU BAG AT BEDSIDE. VENT ALARM AUDIBLE AND VISIBLE. TRACH CARE DONE. VENT PLUGGED INTO RED OUTLET. Addendum: 05/15/22 at 0422 by GIANNA ARRINGTON RT Amended: Links added.
[2022-05-15] MEDS: INSULIN REGULAR, HUMAN 100 UNIT/ML 3 ML VIAL SQ SCH ×3 (06:00→17:14)
[2022-05-15] MEDS: BLOOD SUGAR DIAGNOSTIC 1 EACH STRIP IN SCH ×4 (06:00→23:17)
[2022-05-15] MEDS: POLYVINYL ALCOHOL 15 ML BOTTLE EACHEYE SCH ×4 (06:00→23:17)
[2022-05-15 07:42] VITALS: BP 100/56
[2022-05-15] MEDS: HYDROGEN PEROXIDE 480 ML BOTTLE TP SCH ×2 (08:10→20:06)
[2022-05-15] MEDS: PROSOURCE / PROSTAT (PYXIS) 30 ML UDC GT SCH ×2 (09:00→17:02)
[2022-05-15] MEDS: ASPIRIN 81 MG TAB.CHEW GT SCH (09:00)
[2022-05-15] MEDS: FERROUS SULFATE (325 MG) 325 MG/TAB TABLET GT SCH (09:00)
[2022-05-15] MEDS: ZINC SULFATE 220 MG CAPSULE GT SCH (09:00)
[2022-05-15] MEDS: VITAMINS A AND D 56.7 GM TUBE TP SCH ×2 (09:00→21:41)
[2022-05-15] MEDS: ASCORBIC ACID 500 MG TABLET GT SCH (09:00)
[2022-05-15 10:00] VITALS: BP 100/56
[2022-05-15] MEDS: PANTOPRAZOLE 40 MG/PACK PACK GT SCH (10:10)
[2022-05-15 12:18] VITALS: BP 109/60
[2022-05-15] MEDS: GLUCERNA 1.2 1,000 ML BOTTLE GT PRN (14:39)
--- NOTE | 2022-05-15 16:48 | NUR ---
RT Patient placed on cool aerosol per md orders, tolerating well. Trach tube in place, patent, and secured with trach tie. Large thick frothy pale yellow secretions via trach. Ambu bag and back up trach by the bedside. No distress at this time.
[2022-05-15 19:44] VITALS: BP 128/74
[2022-05-15] MEDS: ATORVASTATIN 40 MG TABLET GT SCH (21:41)
[2022-05-15] MEDS: MELATONIN 3 MG TABLET GT SCH (21:41)
[2022-05-15] MEDS: TAMSULOSIN 0.4 MG CAP.SR.24H GT SCH (21:41)
[2022-05-15] MEDS: ENOXAPARIN SODIUM 40 MG/0.4 ML DISP.SYRIN SQ SCH (21:41)
[2022-05-15] MEDS: INSULIN GLARGINE, 100 UNIT/ML CARTRIDGE SQ SCH (21:42)
--- NOTE | 2022-05-15 23:53 | NUR ---
PT PLACED ON MECH VENT AT THIS TIME PER MD ORDER. NO RESP DISTRESS NOTED. WILL CONT TO MONITOR
[2022-05-16 00:16] VITALS: BP 129/76
[2022-05-16] MEDS: ALBUTEROL FS 2.5 MG/3 ML VIAL.NEB NEB SCH ×4 (01:16→19:08)
[2022-05-16] MEDS: POLYVINYL ALCOHOL 15 ML BOTTLE EACHEYE SCH ×3 (05:44→17:55)
[2022-05-16] MEDS: BLOOD SUGAR DIAGNOSTIC 1 EACH STRIP IN SCH ×3 (05:44→17:55)
[2022-05-16] MEDS: INSULIN REGULAR, HUMAN 100 UNIT/ML 3 ML VIAL SQ SCH ×3 (05:45→17:56)
[2022-05-16 07:52] VITALS: BP 122/73
[2022-05-16] MEDS: HYDROGEN PEROXIDE 480 ML BOTTLE TP SCH ×2 (08:10→20:28)
--- NOTE | 2022-05-16 08:11 | NUR ---
PT PLACED ON CA 28% AT THIS TIME PER MD ORDER. NO RESP DISTRESS NOTED. WILL CONT TO MONITOR
[2022-05-16] MEDS: ASPIRIN 81 MG TAB.CHEW GT SCH (08:53)
[2022-05-16] MEDS: PROSOURCE / PROSTAT (PYXIS) 30 ML UDC GT SCH ×2 (08:53→17:35)
[2022-05-16] MEDS: ASCORBIC ACID 500 MG TABLET GT SCH (08:53)
[2022-05-16] MEDS: FERROUS SULFATE (325 MG) 325 MG/TAB TABLET GT SCH (08:53)
[2022-05-16] MEDS: VITAMINS A AND D 56.7 GM TUBE TP SCH ×2 (08:53→21:40)
[2022-05-16] MEDS: ZINC SULFATE 220 MG CAPSULE GT SCH (08:53)
[2022-05-16] MEDS: PANTOPRAZOLE 40 MG/PACK PACK GT SCH (08:54)
[2022-05-16 12:29] VITALS: BP 125/66
[2022-05-16] MEDS: GLUCERNA 1.2 1,000 ML BOTTLE GT PRN (12:56)
[2022-05-16 19:43] VITALS: BP 138/53
[2022-05-16] MEDS: TAMSULOSIN 0.4 MG CAP.SR.24H GT SCH (21:40)
[2022-05-16] MEDS: MELATONIN 3 MG TABLET GT SCH (21:40)
[2022-05-16] MEDS: ATORVASTATIN 40 MG TABLET GT SCH (21:40)
[2022-05-16] MEDS: ENOXAPARIN SODIUM 40 MG/0.4 ML DISP.SYRIN SQ SCH (21:40)
[2022-05-16] MEDS: INSULIN GLARGINE, 100 UNIT/ML CARTRIDGE SQ SCH (21:41)
--- NOTE | 2022-05-16 23:10 | NUR ---
RT NOTE PLACED PT ON MD ORDERED VENT SETTINGS, VENT PLUGGED INTO RED OUTLET ALARMS ON AND AUDIBLE. NO S/S OF RESP DISTRESS NOTED.
[2022-05-17 00:07] VITALS: BP 107/52
[2022-05-17] MEDS: POLYVINYL ALCOHOL 15 ML BOTTLE EACHEYE SCH ×4 (00:25→17:18)
[2022-05-17] MEDS: BLOOD SUGAR DIAGNOSTIC 1 EACH STRIP IN SCH ×4 (00:25→17:29)
[2022-05-17] MEDS: ALBUTEROL FS 2.5 MG/3 ML VIAL.NEB NEB SCH ×4 (00:36→19:01)
[2022-05-17] MEDS: INSULIN REGULAR, HUMAN 100 UNIT/ML 3 ML VIAL SQ SCH ×3 (05:37→17:29)
[2022-05-17] MEDS: GLUCERNA 1.2 1,000 ML BOTTLE GT PRN (06:06)
[2022-05-17 07:44] VITALS: BP 130/71
[2022-05-17] MEDS: ASCORBIC ACID 500 MG TABLET GT SCH (09:18)
[2022-05-17] MEDS: VITAMINS A AND D 56.7 GM TUBE TP SCH ×2 (09:18→21:34)
[2022-05-17] MEDS: FERROUS SULFATE (325 MG) 325 MG/TAB TABLET GT SCH (09:18)
[2022-05-17] MEDS: PANTOPRAZOLE 40 MG/PACK PACK GT SCH (09:18)
[2022-05-17] MEDS: PROSOURCE / PROSTAT (PYXIS) 30 ML UDC GT SCH ×2 (09:18→17:18)
[2022-05-17] MEDS: ZINC SULFATE 220 MG CAPSULE GT SCH (09:18)
[2022-05-17] MEDS: ASPIRIN 81 MG TAB.CHEW GT SCH (09:18)
[2022-05-17] MEDS: HYDROGEN PEROXIDE 480 ML BOTTLE TP SCH ×2 (09:44→20:10)
[2022-05-17 14:00] VITALS: BP 123/56
--- NOTE | 2022-05-17 15:00 | NUR ---
Called patient's Rosaline, offered Covid-19 2nd booster dose, explained the benefits and risk of having the vaccine, Rosaline said she doesn't want her to get a second covid booster dose, acknowledged her wish. Will offer again next time.
--- NOTE | 2022-05-17 15:09 | NUR ---
Facility Update: PIERRE emailed, the patient's , Rosaline to inform family that : "Facility Update: Please note that no Sub-Acute employee has tested positive for COVID-19 after Friday. [facility] continues to following [facility] of Public Healths infection control guidelines. [facility] will continue response testing and screening for symptoms. Staff will be tested twice a week and patients will be tested on a weekly basis." PIERRE also informed family that [facility] Sub-Acute Unit currently has some residents on quarantine due to COVID-19 exposure. That there is exposure risk if visiting a patient that is on quarantine. We ask visitors to monitor their symptoms and reschedule their visit if they have any COVID-19 symptoms or want to avoid possible exposure. All visitation Guidelines remain the same. PIERRE attached current visitation guidelines on email.
--- NOTE | 2022-05-17 17:30 | NUR ---
BS 76. 2U regular insulin not given. no signs and symptoms of hypoglycemia. will continue to monitor any untoward changes. made aware.
--- NOTE | 2022-05-17 19:37 | NUR ---
RT NOTE PT RECVD ON CA 28% AND STABLE, TRACH IS PATENT AND SECURED. SUCTION PRN, NEB TX GIVEN AND KAILEE WELL. NO S/S OF SOB OR RESPIRATORY DISTRESS NOTED.
[2022-05-17 19:43] VITALS: BP 126/52
[2022-05-17] MEDS: TAMSULOSIN 0.4 MG CAP.SR.24H GT SCH (21:34)
[2022-05-17] MEDS: MELATONIN 3 MG TABLET GT SCH (21:34)
[2022-05-17] MEDS: ATORVASTATIN 40 MG TABLET GT SCH (21:34)
[2022-05-17] MEDS: INSULIN GLARGINE, 100 UNIT/ML CARTRIDGE SQ SCH (21:34)
[2022-05-17] MEDS: ENOXAPARIN SODIUM 40 MG/0.4 ML DISP.SYRIN SQ SCH (21:34)
[2022-05-18] MEDS: POLYVINYL ALCOHOL 15 ML BOTTLE EACHEYE SCH ×5 (00:02→23:23)
[2022-05-18] MEDS: BLOOD SUGAR DIAGNOSTIC 1 EACH STRIP IN SCH ×4 (00:02→17:47)
[2022-05-18 00:17] VITALS: BP 111/71
--- NOTE | 2022-05-18 00:20 | NUR ---
RT PT PLACED ON MECH VENT AT THIS TIME PER MD ORDER. NO RESP DISTRESS NOTED.
[2022-05-18] MEDS: ALBUTEROL FS 2.5 MG/3 ML VIAL.NEB NEB SCH ×4 (01:01→19:50)
[2022-05-18] MEDS: INSULIN REGULAR, HUMAN 100 UNIT/ML 3 ML VIAL SQ SCH ×3 (05:36→17:48)
[2022-05-18] MEDS: GLUCERNA 1.2 1,000 ML BOTTLE GT PRN (06:36)
[2022-05-18 07:46] VITALS: BP 120/59
[2022-05-18] MEDS: ZINC SULFATE 220 MG CAPSULE GT SCH (08:33)
[2022-05-18] MEDS: VITAMINS A AND D 56.7 GM TUBE TP SCH ×2 (08:33→21:50)
[2022-05-18] MEDS: PROSOURCE / PROSTAT (PYXIS) 30 ML UDC GT SCH ×2 (08:33→17:35)
[2022-05-18] MEDS: FERROUS SULFATE (325 MG) 325 MG/TAB TABLET GT SCH (08:33)
[2022-05-18] MEDS: PANTOPRAZOLE 40 MG/PACK PACK GT SCH (08:33)
[2022-05-18] MEDS: ASCORBIC ACID 500 MG TABLET GT SCH (08:33)
[2022-05-18] MEDS: ASPIRIN 81 MG TAB.CHEW GT SCH (08:33)
[2022-05-18] MEDS: HYDROGEN PEROXIDE 480 ML BOTTLE TP SCH ×2 (09:00→19:50)
[2022-05-18 19:40] VITALS: BP 138/67
--- NOTE | 2022-05-18 19:51 | NUR ---
RT NOTE: Pt rec'd trached on CA 28% fio2. No SOB noted at this time. Trach is patent and secured. Pt sx'd at this time. Will continue to monitor closely.
[2022-05-18] MEDS: INSULIN GLARGINE, 100 UNIT/ML CARTRIDGE SQ SCH (21:30)
[2022-05-18] MEDS: ENOXAPARIN SODIUM 40 MG/0.4 ML DISP.SYRIN SQ SCH (21:50)
[2022-05-18] MEDS: MELATONIN 3 MG TABLET GT SCH (21:50)
[2022-05-18] MEDS: TAMSULOSIN 0.4 MG CAP.SR.24H GT SCH (21:50)
[2022-05-18] MEDS: ATORVASTATIN 40 MG TABLET GT SCH (21:50)
--- NOTE | 2022-05-18 23:27 | NUR ---
PT PLACED ON MECH VENT AT THIS TIME PER MD ORDER. NO RESP DISTRESS NOTED. WILL CONT TO MONITOR
[2022-05-19 00:09] VITALS: BP 125/76
[2022-05-19] MEDS: BLOOD SUGAR DIAGNOSTIC 1 EACH STRIP IN SCH ×4 (00:26→18:24)
[2022-05-19] MEDS: ALBUTEROL FS 2.5 MG/3 ML VIAL.NEB NEB SCH ×4 (02:06→19:55)
[2022-05-19] MEDS: POLYVINYL ALCOHOL 15 ML BOTTLE EACHEYE SCH ×3 (05:32→18:24)
[2022-05-19] MEDS: INSULIN REGULAR, HUMAN 100 UNIT/ML 3 ML VIAL SQ SCH ×3 (05:33→18:25)
[2022-05-19] MEDS: GLUCERNA 1.2 1,000 ML BOTTLE GT PRN ×2 (06:13→20:54)
--- NOTE | 2022-05-19 07:50 | NUR ---
RT NOTE: PT RECEIVED STABLE UNABLE TO FOLLOW COMMANDS. REACTIVE TO STIM. PT TRACH PATENT AND SECURE. PT ON CA ON CORRECT LITER FLOW. BAG AND MASK AT BEDSIDE AND SPARE TRACH. PT SHOWS NO SIGNS OF DISTRESS. BILAT BREATH SOUNDS AND CHEST RISE OBSERVED WILL CONTINUE CURRENT THERAPY. Addendum: 05/19/22 at 1239 by SHELTON MARION RT Amended: Links added.
[2022-05-19 08:07] VITALS: BP 111/58
[2022-05-19] MEDS: HYDROGEN PEROXIDE 480 ML BOTTLE TP SCH ×2 (09:47→19:55)
[2022-05-19] MEDS: VITAMINS A AND D 56.7 GM TUBE TP SCH ×2 (09:55→20:42)
[2022-05-19] MEDS: PROSOURCE / PROSTAT (PYXIS) 30 ML UDC GT SCH ×2 (09:55→16:59)
[2022-05-19] MEDS: ASCORBIC ACID 500 MG TABLET GT SCH (09:55)
[2022-05-19] MEDS: ASPIRIN 81 MG TAB.CHEW GT SCH (09:55)
[2022-05-19] MEDS: PANTOPRAZOLE 40 MG/PACK PACK GT SCH (09:55)
[2022-05-19] MEDS: ZINC SULFATE 220 MG CAPSULE GT SCH (09:55)
[2022-05-19] MEDS: FERROUS SULFATE (325 MG) 325 MG/TAB TABLET GT SCH (09:55)
[2022-05-19 15:03] VITALS: BP 128/86
[2022-05-19] MEDS: ENOXAPARIN SODIUM 40 MG/0.4 ML DISP.SYRIN SQ SCH (20:42)
[2022-05-19 20:51] VITALS: BP 130/75
[2022-05-19] MEDS: ATORVASTATIN 40 MG TABLET GT SCH (21:21)
[2022-05-19] MEDS: TAMSULOSIN 0.4 MG CAP.SR.24H GT SCH (21:21)
[2022-05-19] MEDS: MELATONIN 3 MG TABLET GT SCH (21:21)
[2022-05-19] MEDS: INSULIN GLARGINE, 100 UNIT/ML CARTRIDGE SQ SCH (21:22)
[2022-05-20] MEDS: POLYVINYL ALCOHOL 15 ML BOTTLE EACHEYE SCH ×4 (00:35→18:35)
[2022-05-20] MEDS: BLOOD SUGAR DIAGNOSTIC 1 EACH STRIP IN SCH ×4 (00:36→18:35)
[2022-05-20] MEDS: ALBUTEROL FS 2.5 MG/3 ML VIAL.NEB NEB SCH ×4 (02:19→20:16)
[2022-05-20] MEDS: INSULIN REGULAR, HUMAN 100 UNIT/ML 3 ML VIAL SQ SCH ×3 (05:31→18:37)
[2022-05-20 07:27] VITALS: BP 105/57
[2022-05-20] MEDS: VITAMINS A AND D 56.7 GM TUBE TP SCH ×2 (09:17→20:40)
[2022-05-20] MEDS: PANTOPRAZOLE 40 MG/PACK PACK GT SCH (09:17)
[2022-05-20] MEDS: FERROUS SULFATE (325 MG) 325 MG/TAB TABLET GT SCH (09:17)
[2022-05-20] MEDS: ZINC SULFATE 220 MG CAPSULE GT SCH (09:17)
[2022-05-20] MEDS: ASCORBIC ACID 500 MG TABLET GT SCH (09:17)
[2022-05-20] MEDS: ASPIRIN 81 MG TAB.CHEW GT SCH (09:17)
[2022-05-20] MEDS: PROSOURCE / PROSTAT (PYXIS) 30 ML UDC GT SCH ×2 (09:17→16:31)
[2022-05-20] MEDS: HYDROGEN PEROXIDE 480 ML BOTTLE TP SCH ×2 (09:30→20:16)
[2022-05-20 12:47] VITALS: BP 98/63
--- NOTE | 2022-05-20 16:54 | NUR ---
Pt's bowel movement this morning was light brownish in color, appears like the curded G-tube formula. Pt appears comfortable, no abdominal distention. FINANCIAL SERVICES OFFICER Resham Christine said it is not alarming. She ordered to give Lactinex 1 tab via GT BID. Notified pt's .
[2022-05-20] MEDS ORDERED: ACIDOPHILUS/BULGARICUS 1 EACH TAB.CHEW GT SCH (17:00)
[2022-05-20] MEDS: ACIDOPHILUS/BULGARICUS 1 EACH TAB.CHEW GT SCH (17:01)
[2022-05-20] MEDS: ENOXAPARIN SODIUM 40 MG/0.4 ML DISP.SYRIN SQ SCH (20:40)
[2022-05-20 20:41] VITALS: BP 131/63
[2022-05-20] MEDS: MELATONIN 3 MG TABLET GT SCH (21:14)
[2022-05-20] MEDS: ATORVASTATIN 40 MG TABLET GT SCH (21:14)
[2022-05-20] MEDS: TAMSULOSIN 0.4 MG CAP.SR.24H GT SCH (21:14)
[2022-05-20] MEDS: INSULIN GLARGINE, 100 UNIT/ML CARTRIDGE SQ SCH (21:15)
[2022-05-21] MEDS: POLYVINYL ALCOHOL 15 ML BOTTLE EACHEYE SCH ×4 (00:05→17:40)
[2022-05-21] MEDS: BLOOD SUGAR DIAGNOSTIC 1 EACH STRIP IN SCH ×4 (00:06→17:40)
[2022-05-21 00:28] VITALS: BP 139/82
[2022-05-21] MEDS: ALBUTEROL FS 2.5 MG/3 ML VIAL.NEB NEB SCH ×4 (02:29→20:04)
[2022-05-21] MEDS: INSULIN REGULAR, HUMAN 100 UNIT/ML 3 ML VIAL SQ SCH ×3 (05:16→17:41)
[2022-05-21 07:26] VITALS: BP 106/56
[2022-05-21] MEDS: HYDROGEN PEROXIDE 480 ML BOTTLE TP SCH ×2 (09:00→20:05)
[2022-05-21] MEDS ORDERED: ACIDOPHILUS/BULGARICUS 1 EACH TAB.CHEW GT SCH (09:00)
[2022-05-21] MEDS: VITAMINS A AND D 56.7 GM TUBE TP SCH ×2 (09:51→20:45)
[2022-05-21] MEDS: ASPIRIN 81 MG TAB.CHEW GT SCH (09:51)
[2022-05-21] MEDS: ASCORBIC ACID 500 MG TABLET GT SCH (09:51)
[2022-05-21] MEDS: ZINC SULFATE 220 MG CAPSULE GT SCH (09:51)
[2022-05-21] MEDS: ACIDOPHILUS/BULGARICUS 1 EACH TAB.CHEW GT SCH ×2 (09:51→17:39)
[2022-05-21] MEDS: PROSOURCE / PROSTAT (PYXIS) 30 ML UDC GT SCH ×2 (09:51→17:40)
[2022-05-21] MEDS: FERROUS SULFATE (325 MG) 325 MG/TAB TABLET GT SCH (09:51)
[2022-05-21] MEDS: PANTOPRAZOLE 40 MG/PACK PACK GT SCH (09:51)
[2022-05-21 12:26] VITALS: BP 101/53
[2022-05-21] MEDS: GLUCERNA 1.2 1,000 ML BOTTLE GT PRN (15:19)
--- NOTE | 2022-05-21 17:33 | NUR ---
RT NOTE PLACED PT ON MD ORDERED VENT SETTINGS, VENT PLUGGED INTO RED OUTLET ALARMS ON AND AUDIBLE. NO S/S OF RESP DISTRESS NOTED.
--- NOTE | 2022-05-21 17:37 | NUR ---
Seen by Dr Mack. Notified him that pt's bowel movement yesterday was light brown in color and appeared like the curded G-tube feeding. He said it is fine. Also informed him that pt was started on probiotics. No new order.
[2022-05-21 20:27] VITALS: BP 142/65
[2022-05-21] MEDS: ENOXAPARIN SODIUM 40 MG/0.4 ML DISP.SYRIN SQ SCH (20:45)
[2022-05-21] MEDS: ATORVASTATIN 40 MG TABLET GT SCH (21:06)
[2022-05-21] MEDS: INSULIN GLARGINE, 100 UNIT/ML CARTRIDGE SQ SCH (21:06)
[2022-05-21] MEDS: TAMSULOSIN 0.4 MG CAP.SR.24H GT SCH (21:06)
[2022-05-21] MEDS: MELATONIN 3 MG TABLET GT SCH (21:06)
[2022-05-22] MEDS: BLOOD SUGAR DIAGNOSTIC 1 EACH STRIP IN SCH ×4 (00:17→18:27)
[2022-05-22] MEDS: POLYVINYL ALCOHOL 15 ML BOTTLE EACHEYE SCH ×4 (00:17→18:27)
[2022-05-22] MEDS: ALBUTEROL FS 2.5 MG/3 ML VIAL.NEB NEB SCH ×4 (02:13→20:27)
[2022-05-22] MEDS: INSULIN REGULAR, HUMAN 100 UNIT/ML 3 ML VIAL SQ SCH ×3 (05:47→18:28)
[2022-05-22] MEDS: GLUCERNA 1.2 1,000 ML BOTTLE GT PRN (06:08)
[2022-05-22 07:57] VITALS: BP 107/56
--- NOTE | 2022-05-22 08:17 | NUR ---
RT PT RECEIVED ON CPAP VENT. PLACED BACK ON CA 28% 5LPM. TOLERATING WELL WITH SPO2 99%. NO RESP DISTRESS. TRACH SECURED AND PATENT. SEAN HUBBARD AND MICHAEL BEDSIDE. Addendum: 05/22/22 at 0819 by Vishnu Lehman RT Amended: Links added.
[2022-05-22] MEDS: PANTOPRAZOLE 40 MG/PACK PACK GT SCH (09:00)
[2022-05-22] MEDS: ASPIRIN 81 MG TAB.CHEW GT SCH (09:00)
[2022-05-22] MEDS: ASCORBIC ACID 500 MG TABLET GT SCH (09:00)
[2022-05-22] MEDS: PROSOURCE / PROSTAT (PYXIS) 30 ML UDC GT SCH ×2 (09:00→16:21)
[2022-05-22] MEDS: FERROUS SULFATE (325 MG) 325 MG/TAB TABLET GT SCH (09:00)
[2022-05-22] MEDS: ACIDOPHILUS/BULGARICUS 1 EACH TAB.CHEW GT SCH ×2 (09:00→16:21)
[2022-05-22] MEDS: ZINC SULFATE 220 MG CAPSULE GT SCH (09:00)
[2022-05-22] MEDS: VITAMINS A AND D 56.7 GM TUBE TP SCH ×2 (09:00→21:40)
[2022-05-22] MEDS: HYDROGEN PEROXIDE 480 ML BOTTLE TP SCH ×2 (09:21→20:27)
[2022-05-22 12:36] VITALS: BP 115/69
[2022-05-22 20:28] VITALS: BP 128/71
[2022-05-22] MEDS: ENOXAPARIN SODIUM 40 MG/0.4 ML DISP.SYRIN SQ SCH (21:39)
[2022-05-22] MEDS: MELATONIN 3 MG TABLET GT SCH (21:40)
[2022-05-22] MEDS: TAMSULOSIN 0.4 MG CAP.SR.24H GT SCH (21:40)
[2022-05-22] MEDS: ATORVASTATIN 40 MG TABLET GT SCH (21:40)
[2022-05-22] MEDS: INSULIN GLARGINE, 100 UNIT/ML CARTRIDGE SQ SCH (21:41)
--- NOTE | 2022-05-22 21:41 | NUR ---
Noted patient bowel movement appears like curded milk light brown in color and smells like vomit. No abdominal distention.Will continue to monitor.Right eye with redness ,artificial tears applied.
--- NOTE | 2022-05-23 | NUR ---
PT PLACED ON MECH VENT AT THIS TIME PER MD'S ORDER. NO RESP DISTRESS NOTED. WILL CONT TO MONITOR
[2022-05-23] MEDS: BLOOD SUGAR DIAGNOSTIC 1 EACH STRIP IN SCH ×4 (00:50→17:32)
[2022-05-23] MEDS: POLYVINYL ALCOHOL 15 ML BOTTLE EACHEYE SCH ×4 (00:50→17:32)
[2022-05-23 00:53] VITALS: BP 111/69
[2022-05-23] MEDS: ALBUTEROL FS 2.5 MG/3 ML VIAL.NEB NEB SCH ×4 (02:04→20:20)
[2022-05-23] MEDS: INSULIN REGULAR, HUMAN 100 UNIT/ML 3 ML VIAL SQ SCH ×3 (05:33→18:46)
[2022-05-23] MEDS: GLUCERNA 1.2 1,000 ML BOTTLE GT PRN (05:33)
[2022-05-23] MEDS: ACETAMINOPHEN 650 MG/20 ML UDC- SA PATIENTS-PAIN ONLY GT PRN (05:34)
--- NOTE | 2022-05-23 06:48 | NUR ---
Notified Dr. Mack regarding bowel movement x 3 light brown in color,looks like a milk curd and smells like vomit in large amount. It's been happening since Friday.No residual. Temp 97.9 Hr 61 BP 120\61. He ordered CMP will carry out.
[2022-05-23 07:52] VITALS: BP 142/64
--- NOTE | 2022-05-23 08:00 | NUR ---
RT NOTE: PT RECEIVED STABLE UNABLE TO FOLLOW COMMANDS. REACTIVE TO STIM. PT TRACH PATENT AND SECURE. PT ON CA ON CORRECT LITER FLOW. BAG AND MASK AT BEDSIDE AND SPARE TRACH. PT SHOWS NO SIGNS OF DISTRESS. BILAT BREATH SOUNDS AND CHEST RISE OBSERVED WILL CONTINUE CURRENT THERAPY. Addendum: 05/23/22 at 1627 by SHELTON MARION RT Amended: Links added.
[2022-05-23 08:09] LABS: ALBUMIN 3.6 g/dL (3.4-5.0); BILIRUBIN,TOTAL 0.4 mg/dL (0.2-1.0); CALCIUM, SERUM 9.1 mg/dL (8.5-10.1); POTASSIUM 3.4 mmol/L (3.5-5.1); TOTAL PROTEIN, SERUM 7.9 g/dL (6.4-8.2)
[2022-05-23] MEDS: HYDROGEN PEROXIDE 480 ML BOTTLE TP SCH ×2 (09:46→20:21)
[2022-05-23] MEDS: FERROUS SULFATE (325 MG) 325 MG/TAB TABLET GT SCH (09:47)
[2022-05-23] MEDS: ASPIRIN 81 MG TAB.CHEW GT SCH (09:47)
[2022-05-23] MEDS: PANTOPRAZOLE 40 MG/PACK PACK GT SCH (09:48)
[2022-05-23] MEDS: ASCORBIC ACID 500 MG TABLET GT SCH (09:48)
[2022-05-23] MEDS: PROSOURCE / PROSTAT (PYXIS) 30 ML UDC GT SCH ×2 (09:48→17:32)
[2022-05-23] MEDS: ZINC SULFATE 220 MG CAPSULE GT SCH (09:48)
[2022-05-23] MEDS: ACIDOPHILUS/BULGARICUS 1 EACH TAB.CHEW GT SCH ×2 (09:48→17:32)
[2022-05-23] MEDS: VITAMINS A AND D 56.7 GM TUBE TP SCH ×2 (09:48→21:21)
--- NOTE | 2022-05-23 11:17 | NUR ---
Informed Dr. Mack regarding CMP results this am, no orders given. Reshma did rounds this am via facetime and informed her of results of CMP, gave orders of potassium 20 meq daily via GT, BMP on Friday05/27/22, and increase water flush to 250ml Q4hrs. Also per Reshma, WOOD CARVER to inform procurement professional to see if pt needs to change formula or do any changes. HUGH Reynolds came to see pt, asked if pt having any residual, informed her that pt had no residual at this time. Informed her of pt's recent bm, per procurement professional to monitor pt's bm if it continues to be the pale, soft, milky texture to notify her but for now no changes on the formula and rate.
[2022-05-23] MEDS: POTASSIUM CHLORIDE 20 MEQ POWDER PACKET GT SCH (12:01)
[2022-05-23 12:12] VITALS: BP 136/68
--- NOTE | 2022-05-23 15:24 | NUR ---
Pt's at bedside, informed her of recent changes to his bms and labs. Also informed her of new orders from SHAHRAM Justice.
--- NOTE | 2022-05-23 15:59 | NUR ---
Notified Dr. Mack regarding pt's right eye that it was reddened and with small discharge, ordered Trobex 1 drop each eye Q4hrs x 5 days, carried out order.
[2022-05-23] MEDS: TOBRAMYCIN SULFATE OPHTH OINT 3.5 GM TUBE EACHEYE SCH ×2 (18:54→21:20)
[2022-05-23 20:56] VITALS: BP 147/77
[2022-05-23] MEDS: ENOXAPARIN SODIUM 40 MG/0.4 ML DISP.SYRIN SQ SCH (21:21)
[2022-05-23] MEDS: TAMSULOSIN 0.4 MG CAP.SR.24H GT SCH (21:21)
[2022-05-23] MEDS: ATORVASTATIN 40 MG TABLET GT SCH (21:21)
[2022-05-23] MEDS: MELATONIN 3 MG TABLET GT SCH (21:21)
[2022-05-23] MEDS: INSULIN GLARGINE, 100 UNIT/ML CARTRIDGE SQ SCH (21:21)
[2022-05-24] MEDS: POLYVINYL ALCOHOL 15 ML BOTTLE EACHEYE SCH ×4 (00:11→17:32)
[2022-05-24] MEDS: TOBRAMYCIN SULFATE OPHTH OINT 3.5 GM TUBE EACHEYE SCH ×6 (00:11→21:34)
[2022-05-24] MEDS: BLOOD SUGAR DIAGNOSTIC 1 EACH STRIP IN SCH ×4 (00:11→18:06)
[2022-05-24 00:16] VITALS: BP 131/79
[2022-05-24] MEDS: ALBUTEROL FS 2.5 MG/3 ML VIAL.NEB NEB SCH ×4 (02:00→20:22)
[2022-05-24] MEDS: INSULIN REGULAR, HUMAN 100 UNIT/ML 3 ML VIAL SQ SCH ×3 (05:29→18:00)
[2022-05-24 07:33] VITALS: BP 115/69
[2022-05-24] MEDS: ACIDOPHILUS/BULGARICUS 1 EACH TAB.CHEW GT SCH ×2 (08:27→17:31)
[2022-05-24] MEDS: PANTOPRAZOLE 40 MG/PACK PACK GT SCH (08:27)
[2022-05-24] MEDS: ASPIRIN 81 MG TAB.CHEW GT SCH (08:27)
[2022-05-24] MEDS: POTASSIUM CHLORIDE 20 MEQ POWDER PACKET GT SCH (08:27)
[2022-05-24] MEDS: VITAMINS A AND D 56.7 GM TUBE TP SCH ×2 (08:27→21:35)
[2022-05-24] MEDS: PROSOURCE / PROSTAT (PYXIS) 30 ML UDC GT SCH ×2 (08:27→17:31)
[2022-05-24] MEDS: FERROUS SULFATE (325 MG) 325 MG/TAB TABLET GT SCH (08:27)
[2022-05-24] MEDS: ASCORBIC ACID 500 MG TABLET GT SCH (08:27)
[2022-05-24] MEDS: ZINC SULFATE 220 MG CAPSULE GT SCH (08:27)
[2022-05-24] MEDS: HYDROGEN PEROXIDE 480 ML BOTTLE TP SCH ×2 (09:39→20:22)
--- NOTE | 2022-05-24 10:31 | NUR ---
RT NOTE Pt received on vent at ordered settings. Pt placed on CA @ 28% FiO2 5LPM per weaning orders. Pt seems to mina. order well, no resp distress or SOB noted. Tx given, mina. well w/ no adverse reactions noted. Sx PRN. Trach care done. Airway is patent/secured.
--- NOTE | 2022-05-24 13:00 | NUR ---
Resident BM remains loose like curd milk with sour smell, referred to solar technician Rupa Bowden, recommends to change GT feeding from Glucerna 1.2 to Vital AF 1.2 at 70 cc/hr, Dr. Mack informed. RP informed, appreciated the call. Will continue to monitor.
[2022-05-24 13:25] VITALS: BP 128/87
[2022-05-24] MEDS: VITAL AF 1.2 1,000 ML BOTTLE NG PRN (14:36)
--- NOTE | 2022-05-24 19:15 | NUR ---
DISPATCHER RELAY NOTE Routine BS check 56 mg/dl @ 1806, 8 oz orange juice given via GT. Re checked BS @ 1911 still 57 mg/dl. Charge made aware. Patient alert, no changes in LOC. Will closely monitor.
[2022-05-24 19:24] VITALS: BP 116/70
[2022-05-24] MEDS: DEXTROSE 50%-WATER 50 ML DISP.SYRIN IV PRN (19:27)
--- NOTE | 2022-05-24 19:38 | NUR ---
Patient BS is 57 mg\dl after giving OJ via GT @1800. D50 given IV per protocol. Dr Mack notified regarding BS reading on the low side.Received an order to hold Lantus 14 units HS until further order. Will carry out and will continue to monitor.
--- NOTE | 2022-05-24 20:22 | NUR ---
PT RCVD. TRACHED ON CA 28% ,5L. Q6 BREATHING TX. GIVEN PER MD'S ORDER. NO ADVERSE REACTION NOTED . NO SOB OR RESP DISTRESS NOTED AT THIS TIME. TRACH IS PATENT AND SECURED . PT SUCTIONED AT THIS TIME. WILL CONTINUE TO MONITOR T/O SHIFT.
[2022-05-24] MEDS: MELATONIN 3 MG TABLET GT SCH (21:35)
[2022-05-24] MEDS: ENOXAPARIN SODIUM 40 MG/0.4 ML DISP.SYRIN SQ SCH (21:35)
[2022-05-24] MEDS: TAMSULOSIN 0.4 MG CAP.SR.24H GT SCH (21:35)
[2022-05-24] MEDS: ATORVASTATIN 40 MG TABLET GT SCH (21:35)
[2022-05-24 23:49] VITALS: BP 121/66
--- NOTE | 2022-05-24 23:58 | NUR ---
PT PLACED ON MECH VENT AT THIS TIME PER MD'S ORDER. CUFF INFLATED . TRACH IS PATENT AND SECURED. NO RESP DISTRESS NOTED. WILL CONT TO MONITOR T/O SHIFT.
[2022-05-25] MEDS: ALBUTEROL FS 2.5 MG/3 ML VIAL.NEB NEB SCH ×4 (02:04→19:07)
[2022-05-25] MEDS: BLOOD SUGAR DIAGNOSTIC 1 EACH STRIP IN SCH ×4 (05:28→17:06)
[2022-05-25] MEDS: TOBRAMYCIN SULFATE OPHTH OINT 3.5 GM TUBE EACHEYE SCH ×6 (05:28→21:27)
[2022-05-25] MEDS: POLYVINYL ALCOHOL 15 ML BOTTLE EACHEYE SCH ×4 (05:28→17:06)
[2022-05-25] MEDS: VITAL AF 1.2 1,000 ML BOTTLE NG PRN (05:30)
[2022-05-25] MEDS: INSULIN REGULAR, HUMAN 100 UNIT/ML 3 ML VIAL SQ SCH ×3 (05:30→17:06)
--- NOTE | 2022-05-25 06:11 | NUR ---
"Patient had 2x large bowel movement still with milk curd consistency light brown in color. NO emesis and residual.NO discomfort or distress noted. Blood sugar 171 mg|dl. Will continue to monitor and will endorse to oncoming shift."
[2022-05-25 07:14] VITALS: BP 132/67
[2022-05-25] MEDS: PANTOPRAZOLE 40 MG/PACK PACK GT SCH (08:53)
[2022-05-25] MEDS: ASCORBIC ACID 500 MG TABLET GT SCH (08:53)
[2022-05-25] MEDS: PROSOURCE / PROSTAT (PYXIS) 30 ML UDC GT SCH ×2 (08:53→16:23)
[2022-05-25] MEDS: ZINC SULFATE 220 MG CAPSULE GT SCH (08:53)
[2022-05-25] MEDS: POTASSIUM CHLORIDE 20 MEQ POWDER PACKET GT SCH (08:53)
[2022-05-25] MEDS: ACIDOPHILUS/BULGARICUS 1 EACH TAB.CHEW GT SCH ×2 (08:53→16:23)
[2022-05-25] MEDS: ASPIRIN 81 MG TAB.CHEW GT SCH (08:53)
[2022-05-25] MEDS: FERROUS SULFATE (325 MG) 325 MG/TAB TABLET GT SCH (08:53)
[2022-05-25] MEDS: VITAMINS A AND D 56.7 GM TUBE TP SCH ×2 (08:53→21:27)
--- NOTE | 2022-05-25 09:18 | NUR ---
RT NOTE Pt received on vent via trach at ordered settings. Pt was placed on CA @ 28% FiO2 5LPM per MD order. Pt seems to mina. current order well w/ no SOB or resp distress noted. Sx PRN. Tx given and mina well, no adverse reactions noted. Airway is patent/secured.
[2022-05-25] MEDS: HYDROGEN PEROXIDE 480 ML BOTTLE TP SCH ×2 (09:21→20:15)
[2022-05-25 12:14] VITALS: BP 112/62
--- NOTE | 2022-05-25 18:00 | NUR ---
"Patient had 2x large bowel movement still with milk curd consistency light brown in color. No gastric residual, no nausea, no vomiting. No discomfort or distress noted. Blood sugar 150 mg|dl @12n, and @ 6pm 143 mg/dl. No signs of hypoglycemia or hyperglycemia noted, Lantus 14 units remains on hold due to hypoglycemia episodes last night. Will continue to monitor and will endorse to oncoming shift."
[2022-05-25 19:07] VITALS: BP 111/65
[2022-05-25] MEDS: MELATONIN 3 MG TABLET GT SCH (21:27)
[2022-05-25] MEDS: TAMSULOSIN 0.4 MG CAP.SR.24H GT SCH (21:27)
[2022-05-25] MEDS: ATORVASTATIN 40 MG TABLET GT SCH (21:27)
[2022-05-25] MEDS: ENOXAPARIN SODIUM 40 MG/0.4 ML DISP.SYRIN SQ SCH (21:27)
--- NOTE | 2022-05-25 23:28 | NUR ---
RT PT PLACED ON MECH VENT AT THIS TIME PER MD ORDER. NO RESP DISTRESS NOTED.
[2022-05-26 00:12] VITALS: BP 132/76
[2022-05-26] MEDS: POLYVINYL ALCOHOL 15 ML BOTTLE EACHEYE SCH ×5 (00:22→23:24)
[2022-05-26] MEDS: BLOOD SUGAR DIAGNOSTIC 1 EACH STRIP IN SCH ×5 (00:22→23:25)
[2022-05-26] MEDS: TOBRAMYCIN SULFATE OPHTH OINT 3.5 GM TUBE EACHEYE SCH ×6 (00:23→21:18)
[2022-05-26] MEDS: ALBUTEROL FS 2.5 MG/3 ML VIAL.NEB NEB SCH ×4 (00:38→20:10)
--- NOTE | 2022-05-26 06:15 | NUR ---
RN NOTES PATIENT IN BED AWAKE, STILL NOTED WITH 2 EPISODES OF CURDY MILK LIKE BOWEL MOVEMENTS. GTUBE PATENT WITH NO RESIDUAL ASPIRATED, CURRENT FEEDING TOLERATING WELL. NO NAUSEA/VOMITING NOTED. NO S/S OF PAIN/DISCOMFORT SEEN AT THIS TIME. LATEST BLOOD SUGAR 148mg/dl. BED LOW AND LOCKED, CALL LIGHT IN REACH. WILL CONTINUE TO MONITOR.
[2022-05-26] MEDS: INSULIN REGULAR, HUMAN 100 UNIT/ML 3 ML VIAL SQ SCH ×3 (06:54→18:04)
[2022-05-26 07:41] VITALS: BP 126/65
[2022-05-26] MEDS: ZINC SULFATE 220 MG CAPSULE GT SCH (09:00)
[2022-05-26] MEDS: PANTOPRAZOLE 40 MG/PACK PACK GT SCH (09:00)
[2022-05-26] MEDS: VITAMINS A AND D 56.7 GM TUBE TP SCH ×2 (09:00→21:19)
[2022-05-26] MEDS: ACIDOPHILUS/BULGARICUS 1 EACH TAB.CHEW GT SCH ×2 (09:00→17:10)
[2022-05-26] MEDS: ASPIRIN 81 MG TAB.CHEW GT SCH (09:00)
[2022-05-26] MEDS: POTASSIUM CHLORIDE 20 MEQ POWDER PACKET GT SCH (09:00)
[2022-05-26] MEDS: ASCORBIC ACID 500 MG TABLET GT SCH (09:00)
[2022-05-26] MEDS: PROSOURCE / PROSTAT (PYXIS) 30 ML UDC GT SCH ×2 (09:00→17:10)
[2022-05-26] MEDS: FERROUS SULFATE (325 MG) 325 MG/TAB TABLET GT SCH (09:00)
--- NOTE | 2022-05-26 09:04 | NUR ---
RT NOTE RECEIVED PT ON ORDERED NOC CPAP SETTINGS. SWITCHED TO CA 28% 5LPM ORDERED DURING DAY SHIFT. TOLERATING SETTINGS AT 99%. NO RESP DISTRESS. THICK SECRETIONS DURING SUCTION. TRACH IS SECURED AND PATENT. ISHMAELE TRACH AND AMBU BAG ARE BEDSIDE. Addendum: 05/26/22 at 0906 by Vishnu Lehman RT Amended: Links added.
[2022-05-26] MEDS: HYDROGEN PEROXIDE 480 ML BOTTLE TP SCH ×2 (09:09→20:10)
--- NOTE | 2022-05-26 10:00 | NUR ---
Informed Dr. Mack that resident continues to have BM like curd milk consistency, light brown in color, with sour smell. Gastric residual WNL, no vomiting noted. Resident awake, no signs of distress, no signs of discomfort. Stable vital signs, afebrile, no hypoglycemia noted. He said he will speak with GI doctor and discuss patient's condition.Will continue to monitor.
[2022-05-26 14:18] VITALS: BP 120/72
[2022-05-26 20:36] VITALS: BP 132/75
[2022-05-26] MEDS: VITAL AF 1.2 1,000 ML BOTTLE NG PRN (20:40)
[2022-05-26] MEDS: ENOXAPARIN SODIUM 40 MG/0.4 ML DISP.SYRIN SQ SCH (21:18)
[2022-05-26] MEDS: TAMSULOSIN 0.4 MG CAP.SR.24H GT SCH (21:19)
[2022-05-26] MEDS: ATORVASTATIN 40 MG TABLET GT SCH (21:19)
[2022-05-26] MEDS: MELATONIN 3 MG TABLET GT SCH (21:19)
[2022-05-27] MEDS: TOBRAMYCIN SULFATE OPHTH OINT 3.5 GM TUBE EACHEYE SCH ×6 (01:00→20:43)
[2022-05-27] MEDS: ALBUTEROL FS 2.5 MG/3 ML VIAL.NEB NEB SCH ×4 (01:47→20:27)
--- NOTE | 2022-05-27 04:41 | NUR ---
RT NOTE Received pt on cool aerosol 5LPM, 28%. Pt is tolerating well. HHN TX's given, no A/R noted. Suctioned PRN, no SOB noted. Trach care done. Sterile water changed. Pt placed on vent overnight per MD order, pt is tolerating well.
[2022-05-27] MEDS: POLYVINYL ALCOHOL 15 ML BOTTLE EACHEYE SCH ×3 (05:26→17:11)
[2022-05-27] MEDS: BLOOD SUGAR DIAGNOSTIC 1 EACH STRIP IN SCH ×3 (05:49→18:51)
[2022-05-27] MEDS: INSULIN REGULAR, HUMAN 100 UNIT/ML 3 ML VIAL SQ SCH ×3 (05:50→18:53)
[2022-05-27 07:44] VITALS: BP 134/76
[2022-05-27 07:55] LABS: CREATININE 0.8 mg/dL (0.6-1.3); POTASSIUM 3.7 mmol/L (3.5-5.1)
--- NOTE | 2022-05-27 08:00 | NUR ---
RT NOTE: PT RECEIVED STABLE UNABLE TO FOLLOW COMMANDS. REACTIVE TO STIM. PT TRACH PATENT AND SECURE. PT ON CA ON CORRECT LITER FLOW. BAG AND MASK AT BEDSIDE AND SPARE TRACH. PT SHOWS NO SIGNS OF DISTRESS. BILAT BREATH SOUNDS AND CHEST RISE OBSERVED WILL CONTINUE CURRENT THERAPY. Addendum: 05/27/22 at 1634 by SHELTON MARION RT Amended: Links added.
[2022-05-27] MEDS: HYDROGEN PEROXIDE 480 ML BOTTLE TP SCH ×2 (09:00→20:47)
[2022-05-27] MEDS: ASPIRIN 81 MG TAB.CHEW GT SCH (09:35)
[2022-05-27] MEDS: ZINC SULFATE 220 MG CAPSULE GT SCH (09:35)
[2022-05-27] MEDS: PANTOPRAZOLE 40 MG/PACK PACK GT SCH (09:35)
[2022-05-27] MEDS: PROSOURCE / PROSTAT (PYXIS) 30 ML UDC GT SCH ×2 (09:35→17:11)
[2022-05-27] MEDS: POTASSIUM CHLORIDE 20 MEQ POWDER PACKET GT SCH (09:35)
[2022-05-27] MEDS: VITAMINS A AND D 56.7 GM TUBE TP SCH ×2 (09:35→20:44)
[2022-05-27] MEDS: ASCORBIC ACID 500 MG TABLET GT SCH (09:35)
[2022-05-27] MEDS: ACIDOPHILUS/BULGARICUS 1 EACH TAB.CHEW GT SCH ×2 (09:35→17:10)
[2022-05-27] MEDS: FERROUS SULFATE (325 MG) 325 MG/TAB TABLET GT SCH (09:35)
--- NOTE | 2022-05-27 09:50 | NUR ---
Relayed BMP result to SHAHRAM Christine. No new order.
[2022-05-27 12:16] VITALS: BP 149/72
--- NOTE | 2022-05-27 13:00 | NUR ---
Seen by SHAHRAM Christine via telemedicine/video call. She ordered to give water flushes of 250 mL q 4 hours.
--- NOTE | 2022-05-27 13:57 | NUR ---
Notified BOWLING ALLEY MANAGER Reshma Christine that pt is already on water flushes of 250 mL q 4 hours. She said to increase water flushes to 300 mL q 4 hours.
--- NOTE | 2022-05-27 17:15 | NUR ---
Dr Mack ordered to place pt on contact isolation for C diff precaution due to an episode of loose stools today. Will monitor for episodes of diarrhea and test for C diff if it persists.
[2022-05-27] MEDS: VITAL AF 1.2 1,000 ML BOTTLE NG PRN (18:54)
[2022-05-27 19:44] VITALS: BP 140/75
--- NOTE | 2022-05-27 20:28 | NUR ---
RT NOTE RECEIVED PT ON CA 28%. TO;ERATING WITH AN SPO2 98%. NO RESP DISTRESS. TOLERATES BREATHING TX. TRACH SECURE AND PATENT. SPARE TRACH AND AMBUBAG BEDSIDE. Addendum: 05/27/22 at 2028 by Vishnu Lehman RT Amended: Links added.
[2022-05-27] MEDS: ENOXAPARIN SODIUM 40 MG/0.4 ML DISP.SYRIN SQ SCH (20:44)
[2022-05-27] MEDS: MELATONIN 3 MG TABLET GT SCH (21:05)
[2022-05-27] MEDS: ATORVASTATIN 40 MG TABLET GT SCH (21:05)
[2022-05-27] MEDS: TAMSULOSIN 0.4 MG CAP.SR.24H GT SCH (21:05)
[2022-05-28] MEDS: TOBRAMYCIN SULFATE OPHTH OINT 3.5 GM TUBE EACHEYE SCH ×4 (00:12→12:14)
[2022-05-28] MEDS: BLOOD SUGAR DIAGNOSTIC 1 EACH STRIP IN SCH ×4 (00:12→17:10)
[2022-05-28] MEDS: POLYVINYL ALCOHOL 15 ML BOTTLE EACHEYE SCH ×4 (00:12→17:10)
[2022-05-28 00:49] VITALS: BP 143/72
[2022-05-28] MEDS: ALBUTEROL FS 2.5 MG/3 ML VIAL.NEB NEB SCH ×4 (01:54→20:16)
[2022-05-28] MEDS: INSULIN REGULAR, HUMAN 100 UNIT/ML 3 ML VIAL SQ SCH ×3 (05:45→17:11)
[2022-05-28 07:46] VITALS: BP 136/77
--- NOTE | 2022-05-28 07:50 | NUR ---
RT NOTE: PT RECEIVED STABLE UNABLE TO FOLLOW COMMANDS. REACTIVE TO STIM. PT TRACH PATENT AND SECURE. PT ON CA ON CORRECT LITER FLOW. BAG AND MASK AT BEDSIDE AND SPARE TRACH. PT SHOWS NO SIGNS OF DISTRESS. BILAT BREATH SOUNDS AND CHEST RISE OBSERVED WILL CONTINUE CURRENT THERAPY. Addendum: 05/28/22 at 1555 by SHELTON MARION RT Amended: Links added.
[2022-05-28] MEDS: FERROUS SULFATE (325 MG) 325 MG/TAB TABLET GT SCH (08:22)
[2022-05-28] MEDS: ASPIRIN 81 MG TAB.CHEW GT SCH (08:22)
[2022-05-28] MEDS: POTASSIUM CHLORIDE 20 MEQ POWDER PACKET GT SCH (08:22)
[2022-05-28] MEDS: ACIDOPHILUS/BULGARICUS 1 EACH TAB.CHEW GT SCH ×2 (08:23→16:27)
[2022-05-28] MEDS: VITAMINS A AND D 56.7 GM TUBE TP SCH ×2 (08:23→21:42)
[2022-05-28] MEDS: ZINC SULFATE 220 MG CAPSULE GT SCH (08:23)
[2022-05-28] MEDS: PROSOURCE / PROSTAT (PYXIS) 30 ML UDC GT SCH ×2 (08:23→16:27)
[2022-05-28] MEDS: ASCORBIC ACID 500 MG TABLET GT SCH (08:23)
[2022-05-28] MEDS: PANTOPRAZOLE 40 MG/PACK PACK GT SCH (08:23)
[2022-05-28] MEDS: HYDROGEN PEROXIDE 480 ML BOTTLE TP SCH ×2 (09:00→20:16)
[2022-05-28 19:08] VITALS: BP 116/74
--- NOTE | 2022-05-28 20:00 | NUR ---
RN NOTES Episode of loose BM x1. Will continue to monitor.
[2022-05-28 20:43] VITALS: BP 130/84
[2022-05-28] MEDS: ENOXAPARIN SODIUM 40 MG/0.4 ML DISP.SYRIN SQ SCH (21:41)
[2022-05-28] MEDS: MELATONIN 3 MG TABLET GT SCH (21:42)
[2022-05-28] MEDS: ATORVASTATIN 40 MG TABLET GT SCH (21:42)
[2022-05-28] MEDS: TAMSULOSIN 0.4 MG CAP.SR.24H GT SCH (21:42)
[2022-05-29] MEDS: BLOOD SUGAR DIAGNOSTIC 1 EACH STRIP IN SCH ×5 (00:09→23:30)
[2022-05-29] MEDS: POLYVINYL ALCOHOL 15 ML BOTTLE EACHEYE SCH ×5 (00:09→23:30)
[2022-05-29] MEDS: ALBUTEROL FS 2.5 MG/3 ML VIAL.NEB NEB SCH ×4 (02:25→19:49)
[2022-05-29] MEDS: INSULIN REGULAR, HUMAN 100 UNIT/ML 3 ML VIAL SQ SCH ×3 (05:50→18:18)
--- NOTE | 2022-05-29 07:50 | NUR ---
RT NOTE: PT RECEIVED STABLE UNABLE TO FOLLOW COMMANDS. REACTIVE TO STIM. PT TRACH PATENT AND SECURE. PT ON CA ON CORRECT LITER FLOW. BAG AND MASK AT BEDSIDE AND SPARE TRACH. PT SHOWS NO SIGNS OF DISTRESS. BILAT BREATH SOUNDS AND CHEST RISE OBSERVED WILL CONTINUE CURRENT THERAPY. Addendum: 05/29/22 at 1629 by SHELTON MARION RT Amended: Links added.
[2022-05-29 08:10] VITALS: BP 104/72
[2022-05-29] MEDS: HYDROGEN PEROXIDE 480 ML BOTTLE TP SCH ×2 (09:00→19:49)
[2022-05-29] MEDS: FERROUS SULFATE (325 MG) 325 MG/TAB TABLET GT SCH (09:42)
[2022-05-29] MEDS: POTASSIUM CHLORIDE 20 MEQ POWDER PACKET GT SCH (09:42)
[2022-05-29] MEDS: ASPIRIN 81 MG TAB.CHEW GT SCH (09:42)
[2022-05-29] MEDS: PROSOURCE / PROSTAT (PYXIS) 30 ML UDC GT SCH ×2 (09:42→16:36)
[2022-05-29] MEDS: ACIDOPHILUS/BULGARICUS 1 EACH TAB.CHEW GT SCH ×2 (09:42→16:36)
[2022-05-29] MEDS: PANTOPRAZOLE 40 MG/PACK PACK GT SCH (09:42)
[2022-05-29] MEDS: ASCORBIC ACID 500 MG TABLET GT SCH (09:42)
[2022-05-29] MEDS: VITAMINS A AND D 56.7 GM TUBE TP SCH ×2 (09:42→21:45)
[2022-05-29] MEDS: ZINC SULFATE 220 MG CAPSULE GT SCH (09:42)
[2022-05-29 12:18] VITALS: BP 118/87
--- NOTE | 2022-05-29 13:30 | NUR ---
Patient having loose stools, noted milk consistency and milk like color, milk odor, large amount. Third time having loose stools, sent specimen to lab to check for c diff.
--- NOTE | 2022-05-29 16:00 | NUR ---
Patients' came to visit, aware that her still having episodes of loose stools, educated her to observe good handwashing at all times, patient on contact isolation as precautionary measures. Staff also educated to observe contact precautions such as good handwashing at all times and proper use of PPE.
[2022-05-29] MEDS: VITAL AF 1.2 1,000 ML BOTTLE NG PRN (16:15)
[2022-05-29] MEDS: ACETAMINOPHEN 650 MG/20 ML UDC- SA PATIENTS-PAIN ONLY GT PRN (16:22)
--- NOTE | 2022-05-29 16:27 | NUR ---
RT NOTE TRACH CHANGE: Routine monthly trach tube change done, Shiley size 8 cuffed VERIFIED by charge nurse greg and RT fox. Airway is patent and secured. Pt had a small amount of bleeding. No resp. distress noted. RN notified of routine change. bilat chest rise and breath sounds observed Addendum: 05/29/22 at 1628 by SHELTON MARION RT Amended: Links added.
[2022-05-29 19:11] VITALS: BP 127/71
[2022-05-29] MEDS: ENOXAPARIN SODIUM 40 MG/0.4 ML DISP.SYRIN SQ SCH (21:00)
[2022-05-29] MEDS: MELATONIN 3 MG TABLET GT SCH (21:45)
[2022-05-29] MEDS: ATORVASTATIN 40 MG TABLET GT SCH (21:45)
[2022-05-29] MEDS: TAMSULOSIN 0.4 MG CAP.SR.24H GT SCH (21:45)
--- NOTE | 2022-05-29 21:46 | NUR ---
Lovenox inj held. Small amount of tracheal bleeding noted. S/P trach change. No s/s of any kind of distress noted. Respiration even and unlabored. No s/s of pain or discomfort. Will continue to monitor. Will endorse to next shift.
[2022-05-30] MEDS: ALBUTEROL FS 2.5 MG/3 ML VIAL.NEB NEB SCH ×4 (02:00→20:09)
[2022-05-30] MEDS: POLYVINYL ALCOHOL 15 ML BOTTLE EACHEYE SCH ×4 (06:02→23:33)
[2022-05-30] MEDS: INSULIN REGULAR, HUMAN 100 UNIT/ML 3 ML VIAL SQ SCH ×3 (06:02→17:32)
[2022-05-30] MEDS: BLOOD SUGAR DIAGNOSTIC 1 EACH STRIP IN SCH ×4 (06:02→23:42)
--- NOTE | 2022-05-30 06:54 | NUR ---
Patient had 3x loose bowel movement milky like consistency and color. Will continue to monitor.
[2022-05-30 07:20] VITALS: BP 139/75
[2022-05-30] MEDS: HYDROGEN PEROXIDE 480 ML BOTTLE TP SCH ×2 (09:31→20:10)
[2022-05-30] MEDS: FERROUS SULFATE (325 MG) 325 MG/TAB TABLET GT SCH (09:32)
[2022-05-30] MEDS: PROSOURCE / PROSTAT (PYXIS) 30 ML UDC GT SCH ×2 (09:32→17:31)
[2022-05-30] MEDS: PANTOPRAZOLE 40 MG/PACK PACK GT SCH (09:32)
[2022-05-30] MEDS: ACIDOPHILUS/BULGARICUS 1 EACH TAB.CHEW GT SCH ×2 (09:32→17:30)
[2022-05-30] MEDS: ASPIRIN 81 MG TAB.CHEW GT SCH (09:32)
[2022-05-30] MEDS: POTASSIUM CHLORIDE 20 MEQ POWDER PACKET GT SCH (09:32)
[2022-05-30] MEDS: ZINC SULFATE 220 MG CAPSULE GT SCH (09:32)
[2022-05-30] MEDS: VITAL AF 1.2 1,000 ML BOTTLE NG PRN (09:32)
[2022-05-30] MEDS: ASCORBIC ACID 500 MG TABLET GT SCH (09:32)
[2022-05-30] MEDS: VITAMINS A AND D 56.7 GM TUBE TP SCH ×2 (09:33→20:58)
--- NOTE | 2022-05-30 10:39 | NUR ---
Seen by SHAHRAM Christine via telemedicine. Informed her that pt was having diarrhea and stool was sent to check for C diff. Pt's stool has a milky consistency. SHAHRAM Christine ordered to check for ova/parasites and do stool culture.
--- NOTE | 2022-05-30 11:21 | NUR ---
RT NOTE: Pt received on vent via trach at ordered settings. Pt was placed on CA at 28% fio2 at 0700 per MD order. Pt is mina. current resp orders w/ no SOB noted. No resp distress noted at this time. Tx mina. well, no adverse reactions. Airway is patent/secured. Ambu/Trach at bedside.
[2022-05-30 11:55] VITALS: BP 147/77
--- NOTE | 2022-05-30 16:43 | NUR ---
Informed Dr Mack that pt's stool is pale/off white in color and pasty in consistency. Also informed him that ASSOCIATE DIRECTOR OF NURSING Reshma Christine ordered to check for ova/parasites and to culture the stool. Followed up with him if he has spoken with GI. Dr Mack called Dr Smith and informed charge nurse that Dr Smith will see pt.
[2022-05-30 19:24] VITALS: BP 131/87
[2022-05-30] MEDS: ENOXAPARIN SODIUM 40 MG/0.4 ML DISP.SYRIN SQ SCH (20:58)
[2022-05-30] MEDS: TAMSULOSIN 0.4 MG CAP.SR.24H GT SCH (21:02)
[2022-05-30] MEDS: MELATONIN 3 MG TABLET GT SCH (21:02)
[2022-05-30] MEDS: ATORVASTATIN 40 MG TABLET GT SCH (21:02)
[2022-05-31 00:42] VITALS: BP 131/80
[2022-05-31] MEDS: ALBUTEROL FS 2.5 MG/3 ML VIAL.NEB NEB SCH ×4 (01:43→18:48)
[2022-05-31] MEDS: INSULIN REGULAR, HUMAN 100 UNIT/ML 3 ML VIAL SQ SCH ×3 (05:35→17:30)
[2022-05-31] MEDS: POLYVINYL ALCOHOL 15 ML BOTTLE EACHEYE SCH ×4 (05:35→23:07)
[2022-05-31] MEDS: BLOOD SUGAR DIAGNOSTIC 1 EACH STRIP IN SCH ×4 (05:35→23:55)
[2022-05-31] MEDS: VITAL AF 1.2 1,000 ML BOTTLE NG PRN (05:36)
--- NOTE | 2022-05-31 06:49 | NUR ---
Patient had 3x bowel movement milky like,cream color. Will continue to monitor ,will endorse.
[2022-05-31 07:04] VITALS: BP 118/75
[2022-05-31] MEDS: HYDROGEN PEROXIDE 480 ML BOTTLE TP SCH ×2 (09:03→20:04)
[2022-05-31] MEDS: PROSOURCE / PROSTAT (PYXIS) 30 ML UDC GT SCH ×2 (09:13→17:01)
[2022-05-31] MEDS: ACIDOPHILUS/BULGARICUS 1 EACH TAB.CHEW GT SCH ×2 (09:13→17:01)
[2022-05-31] MEDS: POTASSIUM CHLORIDE 20 MEQ POWDER PACKET GT SCH (09:13)
[2022-05-31] MEDS: FERROUS SULFATE (325 MG) 325 MG/TAB TABLET GT SCH (09:13)
[2022-05-31] MEDS: ASPIRIN 81 MG TAB.CHEW GT SCH (09:13)
[2022-05-31] MEDS: ASCORBIC ACID 500 MG TABLET GT SCH (09:13)
[2022-05-31] MEDS: PANTOPRAZOLE 40 MG/PACK PACK GT SCH (09:13)
[2022-05-31] MEDS: ZINC SULFATE 220 MG CAPSULE GT SCH (09:13)
[2022-05-31] MEDS: VITAMINS A AND D 56.7 GM TUBE TP SCH ×2 (09:13→20:03)
--- NOTE | 2022-05-31 11:42 | NUR ---
Notified Dr. Smith that result for stool ova and parasites is still pending, asked if he would like to do a repeat liver function and stool for elastase per his notes, he said yes. Orders carried out.
[2022-05-31 12:01] VITALS: BP 123/70
[2022-05-31 13:23] LABS: ALBUMIN 3.2 g/dL (3.4-5.0); BILIRUBIN,DIRECT 0.3 mg/dL (0.0-0.2); BILIRUBIN,TOTAL 0.6 mg/dL (0.2-1.0); TOTAL PROTEIN, SERUM 7.7 g/dL (6.4-8.2)
--- NOTE | 2022-05-31 13:43 | NUR ---
Monthly progress notes.Resident is alert but unable to verbalize his needs. Responsive and can express emotions.He's always awake and move in bed from time o time. He received daily visits for sensory stimulation, tv, music,audio tapes, hand massage, and reality orientation. These activities will be provided as needed.
--- NOTE | 2022-05-31 14:16 | NUR ---
RT NOTE: Pt rec'd trached on CA 28% fio2. No SOB noted at this time. Trach is patent and secured. Pt sx'd at this time. Will continue to monitor closely. PT. is currently stable will continue to monitor for any changes.
--- NOTE | 2022-05-31 16:16 | NUR ---
Facility Update: PIERRE emailed the patient's , Rosaline to inform family that : "Please note that no [employer] employee has tested positive for COVID-19 this week. [facility] continues following [facility] infection control guidelines. [facility] will continue response testing and screening for symptoms. Staff and patients will continue routine testing. All visitation Guidelines remain the same". PIERRE attached current visitation guidelines on email.
--- NOTE | 2022-05-31 18:36 | NUR ---
collected stool sample for repeat liver function and elastase. pt noted with pale and hoa colored stool.no blood noted.will continue to monitor untoward changes. endorsed.
[2022-05-31 19:31] VITALS: BP 131/75
[2022-05-31] MEDS: ENOXAPARIN SODIUM 40 MG/0.4 ML DISP.SYRIN SQ SCH (20:03)
[2022-05-31] MEDS: ATORVASTATIN 40 MG TABLET GT SCH (21:05)
[2022-05-31] MEDS: TAMSULOSIN 0.4 MG CAP.SR.24H GT SCH (21:05)
[2022-05-31] MEDS: MELATONIN 3 MG TABLET GT SCH (21:05)
--- NOTE | 2022-05-31 23:50 | NUR ---
RT PT PLACED ON MECH VENT AT THIS TIME PER MD ORDER. NO RESP DISTRESS NOTED.
[2022-06-01 00:23] VITALS: BP 133/76
[2022-06-01] MEDS: ALBUTEROL FS 2.5 MG/3 ML VIAL.NEB NEB SCH ×4 (01:13→19:54)
[2022-06-01] MEDS: POLYVINYL ALCOHOL 15 ML BOTTLE EACHEYE SCH ×4 (05:08→23:35)
[2022-06-01] MEDS: VITAL AF 1.2 1,000 ML BOTTLE NG PRN ×2 (05:09→23:35)
[2022-06-01] MEDS: BLOOD SUGAR DIAGNOSTIC 1 EACH STRIP IN SCH ×3 (05:21→17:30)
[2022-06-01] MEDS: INSULIN REGULAR, HUMAN 100 UNIT/ML 3 ML VIAL SQ SCH ×3 (05:21→17:31)
--- NOTE | 2022-06-01 06:27 | NUR ---
Pt continue to have diarrhea episodes- 3 x large bm noted during shift- feeding in color, kept pt well hydrated and provided good celestina care, VS remain stable, no s/sx of distress noted AM Bs 148. Will endorse to am oncoming nurse continuation of care.
[2022-06-01 07:43] VITALS: BP 121/76
[2022-06-01] MEDS: HYDROGEN PEROXIDE 480 ML BOTTLE TP SCH ×2 (09:31→19:54)
[2022-06-01] MEDS: FERROUS SULFATE (325 MG) 325 MG/TAB TABLET GT SCH (09:43)
[2022-06-01] MEDS: PROSOURCE / PROSTAT (PYXIS) 30 ML UDC GT SCH ×2 (09:44→16:52)
[2022-06-01] MEDS: VITAMINS A AND D 56.7 GM TUBE TP SCH ×2 (09:44→20:23)
[2022-06-01] MEDS: ASCORBIC ACID 500 MG TABLET GT SCH (09:44)
[2022-06-01] MEDS: ZINC SULFATE 220 MG CAPSULE GT SCH (09:44)
[2022-06-01] MEDS: ACIDOPHILUS/BULGARICUS 1 EACH TAB.CHEW GT SCH ×2 (09:44→16:52)
[2022-06-01] MEDS: ASPIRIN 81 MG TAB.CHEW GT SCH (09:45)
[2022-06-01] MEDS: POTASSIUM CHLORIDE 20 MEQ POWDER PACKET GT SCH (09:46)
[2022-06-01] MEDS: PANTOPRAZOLE 40 MG/PACK PACK GT SCH (09:46)
[2022-06-01 13:28] VITALS: BP 129/83
--- NOTE | 2022-06-01 15:50 | NUR ---
Relayed final stool culture, stool for O & P, and liver function test results to Dr. Smith for his review. Informed him that patient's stool remain pale in color and watery in consistency. Stool elastase result still pending at this time. Patient tolerating GT feeding, no nausea or vomiting and with minimal gastric residual. Awaiting for orders if any.
[2022-06-01 19:28] VITALS: BP 131/72
[2022-06-01] MEDS: ENOXAPARIN SODIUM 40 MG/0.4 ML DISP.SYRIN SQ SCH (20:23)
[2022-06-01] MEDS: TAMSULOSIN 0.4 MG CAP.SR.24H GT SCH (21:06)
[2022-06-01] MEDS: ATORVASTATIN 40 MG TABLET GT SCH (21:06)
[2022-06-01] MEDS: MELATONIN 3 MG TABLET GT SCH (21:06)
[2022-06-02 00:29] VITALS: BP 145/77
[2022-06-02] MEDS: DEXTROSE 50%-WATER 50 ML DISP.SYRIN IV PRN (00:33)
[2022-06-02] MEDS: BLOOD SUGAR DIAGNOSTIC 1 EACH STRIP IN SCH ×4 (00:33→17:47)
--- NOTE | 2022-06-02 01:30 | NUR ---
RN NOTES BS 57mg/dl NOTED, ORANGE JUICE GIVEN VIA GTUBE RECHECKED BLOOD SUGAR STILL 56mg/dl. D50 IV GIVEN WITH NO ADVERSE REACTIONS SEEN. RECHECKED BLOOD SUGAR 153mg/dl. PATIENT REMAINED AWAKE WITH SPONTANEOUS EYE OPENING. GTUBE PATENT WITH NO RESIDUAL ASPIRATED. NO S/S OF PAIN/DISCOMFORT OBSERVED AT THIS TIME. BED LOW AND LOCKED, CALL LIGHT IN REACH. WILL CONTINUE TO MONITOR.
[2022-06-02] MEDS: ALBUTEROL FS 2.5 MG/3 ML VIAL.NEB NEB SCH ×4 (02:05→20:02)
[2022-06-02] MEDS: POLYVINYL ALCOHOL 15 ML BOTTLE EACHEYE SCH ×3 (05:07→17:47)
[2022-06-02] MEDS: INSULIN REGULAR, HUMAN 100 UNIT/ML 3 ML VIAL SQ SCH ×3 (05:20→17:48)
[2022-06-02 07:32] VITALS: BP 114/73
[2022-06-02] MEDS: HYDROGEN PEROXIDE 480 ML BOTTLE TP SCH ×2 (08:24→20:02)
[2022-06-02] MEDS: ASPIRIN 81 MG TAB.CHEW GT SCH (09:10)
[2022-06-02] MEDS: ACIDOPHILUS/BULGARICUS 1 EACH TAB.CHEW GT SCH ×2 (09:10→16:39)
[2022-06-02] MEDS: FERROUS SULFATE (325 MG) 325 MG/TAB TABLET GT SCH (09:10)
[2022-06-02] MEDS: PANTOPRAZOLE 40 MG/PACK PACK GT SCH (09:10)
[2022-06-02] MEDS: PROSOURCE / PROSTAT (PYXIS) 30 ML UDC GT SCH ×2 (09:10→16:39)
[2022-06-02] MEDS: ZINC SULFATE 220 MG CAPSULE GT SCH (09:11)
[2022-06-02] MEDS: ASCORBIC ACID 500 MG TABLET GT SCH (09:11)
[2022-06-02] MEDS: VITAMINS A AND D 56.7 GM TUBE TP SCH ×2 (09:12→21:06)
[2022-06-02] MEDS: POTASSIUM CHLORIDE 20 MEQ POWDER PACKET GT SCH (09:12)
--- NOTE | 2022-06-02 10:08 | NUR ---
RT Patient received on vent. Placed on cool aerosol 28% (5LPM). Breathing tx and suction tolerated well. Trach patent and secured. Ambu bag and back up trach at bedside. No SOB or respiratory distress noted at this time.
[2022-06-02 14:34] VITALS: BP 154/87
--- NOTE | 2022-06-02 18:15 | NUR ---
pt BM x3 today. pt still noted with pale colored stool; watery. no bleeding noted. abdomen soft and not distended. no gastric residual noted. no signs of pain and discomfort. will continue to monitor any untoward changes. endorsed.
[2022-06-02] MEDS: VITAL AF 1.2 1,000 ML BOTTLE NG PRN (18:33)
[2022-06-02 19:45] VITALS: BP 143/80
[2022-06-02] MEDS: ENOXAPARIN SODIUM 40 MG/0.4 ML DISP.SYRIN SQ SCH (21:06)
[2022-06-02] MEDS: TAMSULOSIN 0.4 MG CAP.SR.24H GT SCH (21:07)
[2022-06-02] MEDS: ATORVASTATIN 40 MG TABLET GT SCH (21:07)
[2022-06-02] MEDS: MELATONIN 3 MG TABLET GT SCH (21:07)
[2022-06-03] MEDS: BLOOD SUGAR DIAGNOSTIC 1 EACH STRIP IN SCH ×5 (00:21→23:26)
[2022-06-03] MEDS: POLYVINYL ALCOHOL 15 ML BOTTLE EACHEYE SCH ×5 (00:21→23:26)
[2022-06-03] MEDS: ALBUTEROL FS 2.5 MG/3 ML VIAL.NEB NEB SCH ×4 (01:49→20:15)
[2022-06-03] MEDS: INSULIN REGULAR, HUMAN 100 UNIT/ML 3 ML VIAL SQ SCH ×3 (06:11→18:25)
[2022-06-03 07:20] VITALS: BP 150/83
[2022-06-03] MEDS: POTASSIUM CHLORIDE 20 MEQ POWDER PACKET GT SCH (09:21)
[2022-06-03] MEDS: FERROUS SULFATE (325 MG) 325 MG/TAB TABLET GT SCH (09:21)
[2022-06-03] MEDS: PROSOURCE / PROSTAT (PYXIS) 30 ML UDC GT SCH ×2 (09:21→17:46)
[2022-06-03] MEDS: ASCORBIC ACID 500 MG TABLET GT SCH (09:21)
[2022-06-03] MEDS: ZINC SULFATE 220 MG CAPSULE GT SCH (09:21)
[2022-06-03] MEDS: ACIDOPHILUS/BULGARICUS 1 EACH TAB.CHEW GT SCH ×2 (09:21→17:46)
[2022-06-03] MEDS: ASPIRIN 81 MG TAB.CHEW GT SCH (09:21)
[2022-06-03] MEDS: VITAMINS A AND D 56.7 GM TUBE TP SCH ×2 (09:22→21:28)
[2022-06-03] MEDS: HYDROGEN PEROXIDE 480 ML BOTTLE TP SCH ×2 (09:31→21:04)
--- NOTE | 2022-06-03 09:53 | NUR ---
RT Patient received on cool aerosol 28%. Trach is patent, midline and secured. Ambu bag and back up trach is at the bedside. No SOB or respiratory distress noted. Will keep monitor the pt.
[2022-06-03] MEDS: PANTOPRAZOLE 40 MG/PACK PACK GT SCH (11:33)
--- NOTE | 2022-06-03 12:25 | NUR ---
Called lab to follow-up stool elastase result. Spoke with Leandra. She said they will call [facility] to follow-up on the result.
[2022-06-03 13:32] VITALS: BP 129/91
--- NOTE | 2022-06-03 13:58 | NUR ---
Family Invite to IDT: SW emailed the patient's , Rosaline to invite them to participate in 06/07/22 12:30p IDT meeting via phone conference. PIERRE will follow up accordingly.
[2022-06-03 19:31] VITALS: BP 118/78
[2022-06-03] MEDS: ENOXAPARIN SODIUM 40 MG/0.4 ML DISP.SYRIN SQ SCH (21:28)
[2022-06-03] MEDS: TAMSULOSIN 0.4 MG CAP.SR.24H GT SCH (21:28)
[2022-06-03] MEDS: ATORVASTATIN 40 MG TABLET GT SCH (21:28)
[2022-06-03] MEDS: MELATONIN 3 MG TABLET GT SCH (21:28)
[2022-06-04] MEDS: ALBUTEROL FS 2.5 MG/3 ML VIAL.NEB NEB SCH ×4 (01:48→20:09)
[2022-06-04] MEDS: BLOOD SUGAR DIAGNOSTIC 1 EACH STRIP IN SCH ×4 (05:59→23:30)
[2022-06-04] MEDS: POLYVINYL ALCOHOL 15 ML BOTTLE EACHEYE SCH ×4 (05:59→23:30)
[2022-06-04] MEDS: INSULIN REGULAR, HUMAN 100 UNIT/ML 3 ML VIAL SQ SCH ×3 (06:00→17:16)
[2022-06-04 07:30] VITALS: BP 131/76
[2022-06-04] MEDS: HYDROGEN PEROXIDE 480 ML BOTTLE TP SCH ×2 (09:03→21:46)
[2022-06-04] MEDS: ASPIRIN 81 MG TAB.CHEW GT SCH (09:07)
[2022-06-04] MEDS: FERROUS SULFATE (325 MG) 325 MG/TAB TABLET GT SCH (09:07)
[2022-06-04] MEDS: ACIDOPHILUS/BULGARICUS 1 EACH TAB.CHEW GT SCH ×2 (09:08→17:13)
[2022-06-04] MEDS: PROSOURCE / PROSTAT (PYXIS) 30 ML UDC GT SCH ×2 (09:08→17:13)
[2022-06-04] MEDS: ZINC SULFATE 220 MG CAPSULE GT SCH (09:09)
[2022-06-04] MEDS: PANTOPRAZOLE 40 MG/PACK PACK GT SCH (09:09)
[2022-06-04] MEDS: VITAMINS A AND D 56.7 GM TUBE TP SCH ×2 (09:09→21:45)
[2022-06-04] MEDS: ASCORBIC ACID 500 MG TABLET GT SCH (09:09)
[2022-06-04] MEDS: POTASSIUM CHLORIDE 20 MEQ POWDER PACKET GT SCH (09:10)
--- NOTE | 2022-06-04 12:59 | NUR ---
Spoke with HUGH Goode regarding loose stools. Pt negative for C diff, no ova or parasites in stool, LFT result within normal range. Stool elastase still pending. She said to continue the same formula and feeding rate.
--- NOTE | 2022-06-04 13:28 | NUR ---
Dietary recommended to give Benefiber 1 packet via GT TID to help form stools.
--- NOTE | 2022-06-04 13:45 | NUR ---
Notified Dr Mack that pt's blood sugar was 56 on 06/02/22 and pt was given D50. Blood sugars ranging 135-[address] Mack aware of dietary recommendation to give Benefiber TID and agreed to it.
[2022-06-04 13:50] VITALS: BP 115/77
--- NOTE | 2022-06-04 13:55 | NUR ---
Followed up stool elastase result with lab. Spoke with Ana, she said they have not received the result from [facility] yet.
[2022-06-04] MEDS: BENEFIBER 4 GM 1 EA PACKET GT SCH (17:13)
--- NOTE | 2022-06-04 17:54 | NUR ---
Pt had one bowel movement throughout this shift. Stool has a milky color (same color as the formula), partly formed, no foul odor.
[2022-06-04 19:46] VITALS: BP 137/77
[2022-06-04] MEDS: ENOXAPARIN SODIUM 40 MG/0.4 ML DISP.SYRIN SQ SCH (21:44)
[2022-06-04] MEDS: VITAL AF 1.2 1,000 ML BOTTLE NG PRN (21:45)
[2022-06-04] MEDS: MELATONIN 3 MG TABLET GT SCH (21:45)
[2022-06-04] MEDS: TAMSULOSIN 0.4 MG CAP.SR.24H GT SCH (21:45)
[2022-06-04] MEDS: ATORVASTATIN 40 MG TABLET GT SCH (21:45)
[2022-06-05] MEDS: ALBUTEROL FS 2.5 MG/3 ML VIAL.NEB NEB SCH ×4 (01:51→19:57)
[2022-06-05] MEDS: POLYVINYL ALCOHOL 15 ML BOTTLE EACHEYE SCH ×3 (05:53→17:31)
[2022-06-05] MEDS: BLOOD SUGAR DIAGNOSTIC 1 EACH STRIP IN SCH ×3 (05:53→17:31)
[2022-06-05] MEDS: INSULIN REGULAR, HUMAN 100 UNIT/ML 3 ML VIAL SQ SCH ×3 (05:54→17:31)
--- NOTE | 2022-06-05 06:29 | NUR ---
RT Patient remains stable throughout the shift , no respiratory distress noted . Trach tube midline and secured , will continue to monitor. Addendum: 06/05/22 at 0630 by BRANDON ALCANTAR RT Amended: Links added.
[2022-06-05] MEDS: HYDROGEN PEROXIDE 480 ML BOTTLE TP SCH ×2 (08:13→19:57)
[2022-06-05] MEDS: FERROUS SULFATE (325 MG) 325 MG/TAB TABLET GT SCH (08:38)
[2022-06-05] MEDS: BENEFIBER 4 GM 1 EA PACKET GT SCH ×3 (08:38→16:59)
[2022-06-05] MEDS: POTASSIUM CHLORIDE 20 MEQ POWDER PACKET GT SCH (08:38)
[2022-06-05] MEDS: PROSOURCE / PROSTAT (PYXIS) 30 ML UDC GT SCH ×2 (08:38→16:59)
[2022-06-05] MEDS: ZINC SULFATE 220 MG CAPSULE GT SCH (08:38)
[2022-06-05] MEDS: PANTOPRAZOLE 40 MG/PACK PACK GT SCH (08:38)
[2022-06-05] MEDS: ACIDOPHILUS/BULGARICUS 1 EACH TAB.CHEW GT SCH ×2 (08:38→16:59)
[2022-06-05] MEDS: ASCORBIC ACID 500 MG TABLET GT SCH (08:38)
[2022-06-05] MEDS: ASPIRIN 81 MG TAB.CHEW GT SCH (08:38)
[2022-06-05] MEDS: VITAMINS A AND D 56.7 GM TUBE TP SCH ×2 (08:38→20:39)
[2022-06-05 08:39] VITALS: BP 135/57
[2022-06-05 11:27] VITALS: BP 139/85
[2022-06-05] MEDS: VITAL AF 1.2 1,000 ML BOTTLE NG PRN (17:00)
[2022-06-05 20:06] VITALS: BP 121/79
[2022-06-05] MEDS: ENOXAPARIN SODIUM 40 MG/0.4 ML DISP.SYRIN SQ SCH (20:39)
[2022-06-05] MEDS: ATORVASTATIN 40 MG TABLET GT SCH (22:26)
[2022-06-05] MEDS: MELATONIN 3 MG TABLET GT SCH (22:26)
[2022-06-05] MEDS: TAMSULOSIN 0.4 MG CAP.SR.24H GT SCH (22:26)
[2022-06-06] MEDS: POLYVINYL ALCOHOL 15 ML BOTTLE EACHEYE SCH ×5 (00:14→23:46)
[2022-06-06] MEDS: BLOOD SUGAR DIAGNOSTIC 1 EACH STRIP IN SCH ×4 (00:14→17:32)
[2022-06-06 00:36] VITALS: BP 121/63
[2022-06-06] MEDS: ALBUTEROL FS 2.5 MG/3 ML VIAL.NEB NEB SCH ×4 (01:53→20:03)
[2022-06-06] MEDS: INSULIN REGULAR, HUMAN 100 UNIT/ML 3 ML VIAL SQ SCH ×3 (05:58→17:33)
[2022-06-06 07:21] VITALS: BP 145/78
[2022-06-06] MEDS: HYDROGEN PEROXIDE 480 ML BOTTLE TP SCH ×2 (07:58→20:03)
[2022-06-06] MEDS: ZINC SULFATE 220 MG CAPSULE GT SCH (09:00)
[2022-06-06] MEDS: VITAMINS A AND D 56.7 GM TUBE TP SCH ×2 (09:00→20:58)
[2022-06-06] MEDS: PROSOURCE / PROSTAT (PYXIS) 30 ML UDC GT SCH ×2 (09:00→17:32)
[2022-06-06] MEDS: POTASSIUM CHLORIDE 20 MEQ POWDER PACKET GT SCH (09:00)
[2022-06-06] MEDS: ASPIRIN 81 MG TAB.CHEW GT SCH (09:00)
[2022-06-06] MEDS: FERROUS SULFATE (325 MG) 325 MG/TAB TABLET GT SCH (09:00)
[2022-06-06] MEDS: ACIDOPHILUS/BULGARICUS 1 EACH TAB.CHEW GT SCH ×2 (09:00→17:32)
[2022-06-06] MEDS: ASCORBIC ACID 500 MG TABLET GT SCH (09:00)
[2022-06-06] MEDS: PANTOPRAZOLE 40 MG/PACK PACK GT SCH (09:00)
--- NOTE | 2022-06-06 09:20 | NUR ---
Called lab to follow up stool elastase result. Spoke with Veena. She said the result is still pending and she will follow-up on it.
[2022-06-06] MEDS: BENEFIBER 4 GM 1 EA PACKET GT SCH ×3 (10:03→17:31)
[2022-06-06] MEDS: VITAL AF 1.2 1,000 ML BOTTLE NG PRN (10:51)
--- NOTE | 2022-06-06 11:46 | NUR ---
Facility Update: PIERRE emailed the patient's , Rosaline and notified them that, "A [employer] employee has tested positive for COVID-19 yesterday and another employee tested positive today. [facility] continues following [facility] infection control guidelines. Staff and patients will continue response testing and being screened for symptoms." PIERRE also provided current visitation guidelines.
[2022-06-06 13:54] VITALS: BP 114/76
[2022-06-06 19:35] VITALS: BP 112/78
[2022-06-06] MEDS: ENOXAPARIN SODIUM 40 MG/0.4 ML DISP.SYRIN SQ SCH (20:58)
[2022-06-06] MEDS: ATORVASTATIN 40 MG TABLET GT SCH (21:13)
[2022-06-06] MEDS: MELATONIN 3 MG TABLET GT SCH (21:13)
[2022-06-06] MEDS: TAMSULOSIN 0.4 MG CAP.SR.24H GT SCH (21:13)
[2022-06-07] MEDS: BLOOD SUGAR DIAGNOSTIC 1 EACH STRIP IN SCH ×4 (00:22→17:47)
[2022-06-07 00:57] VITALS: BP 118/68
[2022-06-07] MEDS: ALBUTEROL FS 2.5 MG/3 ML VIAL.NEB NEB SCH ×4 (01:45→19:53)
[2022-06-07] MEDS: POLYVINYL ALCOHOL 15 ML BOTTLE EACHEYE SCH ×3 (05:23→17:47)
[2022-06-07] MEDS: INSULIN REGULAR, HUMAN 100 UNIT/ML 3 ML VIAL SQ SCH ×3 (05:24→17:48)
[2022-06-07] MEDS: VITAL AF 1.2 1,000 ML BOTTLE NG PRN (06:43)
[2022-06-07 07:31] VITALS: BP 112/86
[2022-06-07] MEDS: HYDROGEN PEROXIDE 480 ML BOTTLE TP SCH ×2 (07:58→20:21)
--- NOTE | 2022-06-07 08:01 | NUR ---
Pt received on mechanical vent. Changed it to cool aerosol 28% per MD order. Breathing treatment given. Tolerated well. No respiratory distress. Ambu bag and spare trach at bedside. will continue to monitor
[2022-06-07] MEDS: ZINC SULFATE 220 MG CAPSULE GT SCH (09:00)
[2022-06-07] MEDS: POTASSIUM CHLORIDE 20 MEQ POWDER PACKET GT SCH (09:00)
[2022-06-07] MEDS: ASPIRIN 81 MG TAB.CHEW GT SCH (09:00)
[2022-06-07] MEDS: PROSOURCE / PROSTAT (PYXIS) 30 ML UDC GT SCH ×2 (09:00→17:47)
[2022-06-07] MEDS: PANTOPRAZOLE 40 MG/PACK PACK GT SCH (09:00)
[2022-06-07] MEDS: FERROUS SULFATE (325 MG) 325 MG/TAB TABLET GT SCH (09:00)
[2022-06-07] MEDS: VITAMINS A AND D 56.7 GM TUBE TP SCH ×2 (09:00→21:18)
[2022-06-07] MEDS: ASCORBIC ACID 500 MG TABLET GT SCH (09:00)
[2022-06-07] MEDS: ACIDOPHILUS/BULGARICUS 1 EACH TAB.CHEW GT SCH ×2 (09:00→17:47)
[2022-06-07] MEDS: BENEFIBER 4 GM 1 EA PACKET GT SCH ×3 (10:08→17:46)
[2022-06-07 11:59] VITALS: BP 115/79
--- NOTE | 2022-06-07 14:29 | NUR ---
INTERDISCIPLINARY PLAN OF CARE CONFERENCE took place today. The patients , Rosaline [phone] Colón and Interdisciplinary team discussed the plan of care in detail. Current orders as well as treatments and medications were reviewed. Per BPM to be completed Friday.
--- NOTE | 2022-06-07 14:39 | NUR ---
During IDT meeting, pharmacist asked Dr. Colón to evaluate the use of Klorcon 20 meq. Patient's latest K+ level at 3.7 (05/27/22). Dr. Colón gave an order to check BMP on Friday. Patient's informed of what was discussed in the meeting and updated her of patient's condition including the pending result for stool elastase. According to Ana from the lab, result is not available yet but will call [facility] to follow-up.
[2022-06-07 19:47] VITALS: BP 97/65
[2022-06-07] MEDS: MELATONIN 3 MG TABLET GT SCH (21:18)
[2022-06-07] MEDS: ENOXAPARIN SODIUM 40 MG/0.4 ML DISP.SYRIN SQ SCH (21:18)
[2022-06-07] MEDS: ATORVASTATIN 40 MG TABLET GT SCH (21:18)
[2022-06-07] MEDS: TAMSULOSIN 0.4 MG CAP.SR.24H GT SCH (21:18)
--- NOTE | 2022-06-07 23:20 | NUR ---
RT PT PLACED ON MECH VENT AT THIS TIME PER MD ORDER. NO RESP DISTRESS NOTED.
[2022-06-08] MEDS: POLYVINYL ALCOHOL 15 ML BOTTLE EACHEYE SCH ×4 (00:20→17:36)
[2022-06-08] MEDS: BLOOD SUGAR DIAGNOSTIC 1 EACH STRIP IN SCH ×4 (00:20→17:36)
[2022-06-08] MEDS: ALBUTEROL FS 2.5 MG/3 ML VIAL.NEB NEB SCH ×4 (01:02→20:11)
[2022-06-08 01:08] VITALS: BP 119/74
[2022-06-08] MEDS: VITAL AF 1.2 1,000 ML BOTTLE NG PRN ×2 (05:50→17:43)
[2022-06-08] MEDS: INSULIN REGULAR, HUMAN 100 UNIT/ML 3 ML VIAL SQ SCH ×3 (05:52→17:37)
[2022-06-08 07:08] VITALS: BP 124/73
[2022-06-08] MEDS: HYDROGEN PEROXIDE 480 ML BOTTLE TP SCH ×2 (08:25→21:16)
[2022-06-08] MEDS: VITAMINS A AND D 56.7 GM TUBE TP SCH ×2 (09:00→21:23)
[2022-06-08] MEDS: ZINC SULFATE 220 MG CAPSULE GT SCH (09:00)
[2022-06-08] MEDS: PROSOURCE / PROSTAT (PYXIS) 30 ML UDC GT SCH ×2 (09:00→16:40)
[2022-06-08] MEDS: ASCORBIC ACID 500 MG TABLET GT SCH (09:00)
[2022-06-08] MEDS: POTASSIUM CHLORIDE 20 MEQ POWDER PACKET GT SCH (09:00)
[2022-06-08] MEDS: ACIDOPHILUS/BULGARICUS 1 EACH TAB.CHEW GT SCH ×2 (09:00→16:40)
[2022-06-08] MEDS: FERROUS SULFATE (325 MG) 325 MG/TAB TABLET GT SCH (09:00)
[2022-06-08] MEDS: ASPIRIN 81 MG TAB.CHEW GT SCH (09:00)
[2022-06-08] MEDS: BENEFIBER 4 GM 1 EA PACKET GT SCH ×3 (09:00→16:40)
[2022-06-08] MEDS: PANTOPRAZOLE 40 MG/PACK PACK GT SCH (10:15)
[2022-06-08 11:25] VITALS: BP 124/85
--- NOTE | 2022-06-08 18:37 | NUR ---
PATIENT RECEIVED ON VENT AND PLACED ON COOL AEROSOL @ 28% IN AM PER DOCTORS ORDERS. AIRWAY PATENT AND SECURE. TOLERATING COOL AEROSOL WELL WITH NO RESPIRATORY DISTRESS NOTED. Q6 HHN TXS TOLERATING WELL WITH NO ADVERSE REACTION NOTED. AMBU BAG AND EMERGENCY TRACH AT THE BEDSIDE. SMALL THICK YELLOW SECRETIONS NOTED.
[2022-06-08 20:26] VITALS: BP 131/78
[2022-06-08] MEDS: TAMSULOSIN 0.4 MG CAP.SR.24H GT SCH (21:23)
[2022-06-08] MEDS: ATORVASTATIN 40 MG TABLET GT SCH (21:23)
[2022-06-08] MEDS: ENOXAPARIN SODIUM 40 MG/0.4 ML DISP.SYRIN SQ SCH (21:23)
[2022-06-08] MEDS: MELATONIN 3 MG TABLET GT SCH (21:23)
[2022-06-09] MEDS: POLYVINYL ALCOHOL 15 ML BOTTLE EACHEYE SCH ×5 (00:28→23:49)
[2022-06-09] MEDS: BLOOD SUGAR DIAGNOSTIC 1 EACH STRIP IN SCH ×5 (00:28→23:49)
[2022-06-09] MEDS: ALBUTEROL FS 2.5 MG/3 ML VIAL.NEB NEB SCH ×4 (01:50→19:04)
[2022-06-09 03:10] VITALS: BP 124/80
[2022-06-09] MEDS: INSULIN REGULAR, HUMAN 100 UNIT/ML 3 ML VIAL SQ SCH ×3 (05:53→18:03)
--- NOTE | 2022-06-09 06:07 | NUR ---
RT Patient remains stable throughout the shift , no respiratory distress noted . Trach tube midline and secured , will continue to monitor. Addendum: 06/09/22 at 0607 by BRANDON ALCANTAR RT Amended: Links added.
--- NOTE | 2022-06-09 07:10 | NUR ---
RT NOTE: Pt received on vent at ordered settings w/ no SOB noted. Pt was placed on CA @ 28% FiO2 at 0700 from vent per MD orders. Pt shows no signs of resp distress, will continue to monitor. Airway is patent/secured. Tx mina. well, no adverse reactions.
[2022-06-09 07:11] VITALS: BP 117/78
[2022-06-09] MEDS: FERROUS SULFATE (325 MG) 325 MG/TAB TABLET GT SCH (08:54)
[2022-06-09] MEDS: BENEFIBER 4 GM 1 EA PACKET GT SCH ×3 (08:54→17:25)
[2022-06-09] MEDS: ACIDOPHILUS/BULGARICUS 1 EACH TAB.CHEW GT SCH ×2 (08:54→17:25)
[2022-06-09] MEDS: ASPIRIN 81 MG TAB.CHEW GT SCH (08:54)
[2022-06-09] MEDS: POTASSIUM CHLORIDE 20 MEQ POWDER PACKET GT SCH (08:54)
[2022-06-09] MEDS: PROSOURCE / PROSTAT (PYXIS) 30 ML UDC GT SCH ×2 (08:54→17:25)
[2022-06-09] MEDS: ASCORBIC ACID 500 MG TABLET GT SCH (08:55)
[2022-06-09] MEDS: ZINC SULFATE 220 MG CAPSULE GT SCH (08:55)
[2022-06-09] MEDS: PANTOPRAZOLE 40 MG/PACK PACK GT SCH (08:55)
[2022-06-09] MEDS: VITAMINS A AND D 56.7 GM TUBE TP SCH ×2 (08:55→20:43)
[2022-06-09] MEDS: HYDROGEN PEROXIDE 480 ML BOTTLE TP SCH ×2 (09:10→20:17)
--- NOTE | 2022-06-09 13:20 | NUR ---
PRN Trach Tube Change Pt needed PRN trach tube change due to blown cuff. Cuff would not maintain pressure and Pt had low minute volumes while on NOC vent order. New trach tube placed, Shiley #8 Cuffed, trach tube is patent/secured and cuff is deflated. Minimal bleeding noted. Charge nurse Chelsea notified of procedure, RT Selvin at bedside. Pt remains stable on CA @ 28% fio2 w/ equal breath sounds and bilateral chest rise. Will continue to monitor.
[2022-06-09 13:44] VITALS: BP 118/77
[2022-06-09] MEDS: VITAL AF 1.2 1,000 ML BOTTLE NG PRN (19:02)
--- NOTE | 2022-06-09 19:47 | NUR ---
RT PT PLACED ON MECH VENT AT THIS TIME d/t increased wob. NO RESP DISTRESS NOTED. TX. GIVEN.
[2022-06-09 19:50] VITALS: BP 117/68
[2022-06-09] MEDS: ENOXAPARIN SODIUM 40 MG/0.4 ML DISP.SYRIN SQ SCH (20:43)
[2022-06-09] MEDS: MELATONIN 3 MG TABLET GT SCH (21:01)
[2022-06-09] MEDS: ATORVASTATIN 40 MG TABLET GT SCH (21:01)
[2022-06-09] MEDS: TAMSULOSIN 0.4 MG CAP.SR.24H GT SCH (21:01)
[2022-06-10] MEDS: ACETAMINOPHEN 650 MG/20 ML UDC- SA PATIENTS-PAIN ONLY GT PRN (00:04)
[2022-06-10 00:14] VITALS: BP 95/59
[2022-06-10] MEDS: ALBUTEROL FS 2.5 MG/3 ML VIAL.NEB NEB SCH ×4 (00:37→18:47)
[2022-06-10] MEDS: INSULIN REGULAR, HUMAN 100 UNIT/ML 3 ML VIAL SQ SCH ×3 (05:57→17:51)
[2022-06-10] MEDS: BLOOD SUGAR DIAGNOSTIC 1 EACH STRIP IN SCH ×2 (05:57→12:38)
[2022-06-10] MEDS: POLYVINYL ALCOHOL 15 ML BOTTLE EACHEYE SCH ×3 (05:57→17:23)
[2022-06-10 07:46] LABS: CALCIUM, SERUM 9.1 mg/dL (8.5-10.1); CARBON DIOXIDE 17 mmol/L (21-32); CHLORIDE 123 mmol/L (98-107); CREATININE 1.7 mg/dL (0.6-1.3); POTASSIUM 3.8 mmol/L (3.5-5.1); UREA NITROGEN, BLOOD 50 mg/dL (7-18)
[2022-06-10 07:51] LABS: GLUCOSE 394 mg/dL (74-106); SODIUM SERUM 156 mmol/L (136-145)
[2022-06-10 08:00] VITALS: BP 115/64
[2022-06-10] MEDS: PROSOURCE / PROSTAT (PYXIS) 30 ML UDC GT SCH ×2 (08:07→17:23)
[2022-06-10] MEDS: ASCORBIC ACID 500 MG TABLET GT SCH (08:07)
[2022-06-10] MEDS: ZINC SULFATE 220 MG CAPSULE GT SCH (08:07)
[2022-06-10] MEDS: BENEFIBER 4 GM 1 EA PACKET GT SCH ×3 (08:07→17:23)
[2022-06-10] MEDS: PANTOPRAZOLE 40 MG/PACK PACK GT SCH (08:07)
[2022-06-10] MEDS: POTASSIUM CHLORIDE 20 MEQ POWDER PACKET GT SCH (08:07)
[2022-06-10] MEDS: FERROUS SULFATE (325 MG) 325 MG/TAB TABLET GT SCH (08:07)
[2022-06-10] MEDS: ASPIRIN 81 MG TAB.CHEW GT SCH (08:07)
[2022-06-10] MEDS: ACIDOPHILUS/BULGARICUS 1 EACH TAB.CHEW GT SCH ×2 (08:07→17:23)
[2022-06-10] MEDS: VITAMINS A AND D 56.7 GM TUBE TP SCH (08:08)
--- NOTE | 2022-06-10 08:34 | NUR ---
RT NOTE RECEIVED PT ON CA 28%. PT IS STABLE WITH AN SPO2 OF 98% ON CURRENT SETTINGS. NO RESP DISTRESS OR SOB UPON ASSESSMENT. TX GIVEN AND TOLERATED. MODERATE AMT OF THICK SECRETIONS DURING SUCTION. TRACH IS SECURED AND PATENT. EMERGENCY TRACH AND AMBU BAG ARE AT BEDSIDE. Addendum: 06/10/22 at 0835 by Vishnu Lehman RT Amended: Links added.
[2022-06-10] MEDS: HYDROGEN PEROXIDE 480 ML BOTTLE TP SCH ×2 (09:23→20:08)
[2022-06-10] MEDS ORDERED: IV 1/2NS 1000 ML 1,000 ML IV PRN (10:30)
--- NOTE | 2022-06-10 11:40 | NUR ---
Relayed BMP result to SHAHRAM Christine earlier this morning. She ordered to do urine sodium, serum sodium, urine osmolality, and UA. She also ordered BMP in AM, 1/2 NS at 70 mL/hr IV until further order. BS 394 when blood was drawn by lab. Rechecked blood sugar and it is 337. SHAHRAM Christine ordered to give regular insulin coverage per sliding scale q 6 hours in addition to 2 units that is given q 0600, 1200, 1800. Notified pt's .
[2022-06-10 12:00] VITALS: BP 93/73
[2022-06-10] MEDS ORDERED: INSULIN REGULAR, HUMAN 100 UNIT/ML 3 ML VIAL SQ PRN (14:30)
[2022-06-10] MEDS ORDERED: DEXTROSE 50%-WATER 50 ML DISP.SYRIN IV PRN (14:30)
--- NOTE | 2022-06-10 15:51 | NUR ---
Seen by Dr Mack. Relayed stool elastase result to him. No new order.
[2022-06-10 17:05] LABS: BASOPHILS % (AUTO) 0.3 % (0.0-2.0); HEMATOCRIT 49 % (39-51); HEMOGLOBIN 14.8 g/dL (13.5-17.5); LYMPHOCYTES # (AUTO) 0.6 K/uL (0.8-4.8); LYMPHOCYTES % (AUTO) 5.4 % (20.0-44.0); MEAN CORPUSCULAR HGB CONC 31 g/dl (31.0-36.0); MEAN CORPUSCULAR VOLUME 83 fL (80-96); MONOCYTES # (AUTO) 0.9 K/uL (0.1-1.30); MONOCYTES % (AUTO) 8.6 % (2.0-12.0); NEUTROPHILS # (AUTO) 9.3 K/uL (1.8-8.9); NEUTROPHILS % (AUTO) 85.7 % (43.0-81.0); PLATELET COUNT (AUTO) 350 K/uL (150-450); RED BLOOD CELL COUNT(AUTO) 5.87 MIL/uL (4.5-6.0); WHITE BLOOD COUNT (AUTO) 10.9 K/uL (4.3-11.0)
--- NOTE | 2022-06-10 17:25 | NUR ---
Notified Dr Mack of BP 84/51 HR 116. He ordered to change 1/2 NS to NS at 70 mL/hr and give NS at 500 mL IV bolus. Addendum: 06/11/22 at 0850 by DARREN MCCOY RN Notified Dr Mack that pt's would like to set an appointment with him. He said he can see her on Friday at 830am but is not available that day. She said he can just call her anytime except on Friday. Informed Dr Mack and he said he will call her sometime tomorrow 06/11/22. Stool elastase result was relayed to Dr Smith who ordered the test. He said Dr Mitchell is the GI seasonal warehouse associate. Informed Dr Mack that stools are still pale in color but not watery. Dr Mack said if BP does not improve, transfer to medical floor.
--- NOTE | 2022-06-10 17:30 | NUR ---
IV changed to NS at 70 mL/hr as ordered.
--- NOTE | 2022-06-10 17:35 | NUR ---
Relayed CBC and BMP results to Dr Mack. Also relayed CBC result to SHAHRAM Christine.
[2022-06-10] MEDS ORDERED: BLOOD SUGAR DIAGNOSTIC 1 EACH STRIP IN SCH (18:00)
--- NOTE | 2022-06-10 18:05 | NUR ---
Notified SPACE SYSTEMS OPERATIONS CRAFTSMAN Reshma Christine of pt's hypotension and order to change 1/2 NS to NS. She ordered to give water flushes of 300 mL q 3 hours. She said to closely monitor pt. Informed her pt has only voided once this morning.
--- NOTE | 2022-06-10 18:15 | NUR ---
Notified Dr Mack that pt only voided once this morning. He ordered to place a Valero catheter and monitor I and O. He also ordered to increase NS to 125 mL/hr IV. Dr Mack ordered to transfer pt to acute hospital.
--- NOTE | 2022-06-10 18:30 | NUR ---
BP 103/55 HR 113
--- NOTE | 2022-06-10 18:58 | NUR ---
Dr Mack ordered to transfer pt to ICU. He said he already spoke with admitting MD Dr High. He will see pt in ICU as soon as pt gets there. Notified nursing supervisor safety deposit Farrah. She said to transfer to ICU Room 261. Report given to ICU nurse. She said to transfer pt around 715pm. Left message for pt's Rosaline.
--- NOTE | 2022-06-10 19:00 | NUR ---
Increased NS from 70 to 125 mL/hr as ordered.
[2022-06-10] MEDS: VITAL AF 1.2 1,000 ML BOTTLE NG PRN (19:05)
--- NOTE | 2022-06-10 19:14 | NUR ---
Left message for pt's Rosaline regarding transfer to ICU. Pt has 200 mL urine output in the Valero catheter bag. Report given to night charge nurse.
--- NOTE | 2022-06-10 19:15 | NUR ---
Pt tested for Covid-19 using PCR test. Sent specimen to lab. Pt asymptomatic for Covid. No respiratory distress, no SOB, no increased coughing or secretions, T 97.6 F. Skin assessment done on pt and skin is intact. No redness on pressure areas noted.
--- NOTE | 2022-06-10 19:50 | NUR ---
RN NOTES Transferred pt to ICU room 260-1.
--- NOTE | 2022-06-10 19:59 | NUR ---
transferred pt to icu 261
[2022-06-10] MEDS ORDERED: VANCOMYCIN 1.25 GM in IV D5W 250 ML IV ONE (21:00)
[2022-06-11] MEDS ORDERED: INSU100V3 SQ (09:07)
[2022-06-11] MEDS ORDERED: AMIN30LI2 GT (09:07)
[2022-06-11] MEDS ORDERED: [UNRECOGNIZED DRUG - CODE] IV (09:07)
[2022-06-11] MEDS ORDERED: BENEFIBER GT (09:07)
[2022-06-11] MEDS ORDERED: HYDR1SOL TP (09:07)
[2022-06-11] MEDS ORDERED: ONDA4TAB11 GT (09:07)
[2022-06-11] MEDS ORDERED: ASCO-340 GT (09:07)
[2022-06-11] MEDS ORDERED: MELA3TAB41 GT (09:07)
[2022-06-11] MEDS ORDERED: POTA20PA3 GT (09:07)
[2022-06-11] MEDS ORDERED: NUT.237L65 GT (09:07)
[2022-06-11] MEDS ORDERED: PETR113O TP (09:07)
[2022-06-11] MEDS ORDERED: FERR325T24 GT (09:07)
[2022-06-11] MEDS ORDERED: ACID1TAB12 GT (09:07)
[2022-06-11] MEDS ORDERED: POLY15DR40 EACHEYE (09:07)
[2022-06-11] MEDS ORDERED: ASPI-1169 GT (09:07)
[2022-06-11] MEDS ORDERED: ZINC50TA69 GT (09:07)
[2022-06-11] MEDS ORDERED: BISA10SU11 RC (09:07)
--- NOTE | 2022-06-11 12:34 | NUR ---
MDS: SW completed the Personal Lines Agent portion of 1st Quarter MDS assessment. The patients responsible democrat is his , Rosaline Brito [phone] who is supportive. The patient is lethargic, non-communicative. The pt. has on cool aerosol during the day and ventilator during night(See RT notes for details) with trach and g-tube feeding (see truckman notes for details). The patients last optometry appointment with Dr. Desai was on 01/15/2022 and is pending dental exam. The patients last podiatry consultation with Dr. Patino was on 06/06/2022.
--- NOTE | 2022-06-11 19:07 | NUR ---
Patient's urine was collected yesterday and lab was called to brass pickler specimen yesterday. Lab called this morning to inform charge nurse that they cannot run the tests on the urine since the specimen is dated 06/10/22. Pt now in ICU.
[2022-06-11] MEDS ORDERED: VANCOMYCIN 0.75 GM in IV D5W 250 ML IV SCH (21:00)
--- NOTE | 2022-06-12 11:45 | NUR ---
Spoke with Jamaal Varela IP Director regarding the COVID testing results from ICU. He verified that patient is COVID negative. He said the antigen test on 06/11/22 was false positive as there were two negative PCR tests on 06/10/22 and 06/11/22. Patient roommate does not need to be on quarantine
[2022-06-18] MEDS ORDERED: HYDR100V6 IV (17:56)
[2022-06-18] MEDS ORDERED: MERO500V23 IV (17:56)
[2022-06-18] MEDS ORDERED: NUT.237L65 GT (17:56)
--- NOTE | 2022-06-18 23:23 | NUR ---
RT NOTE: Pt rec'd trached on CA 28% fio2. No SOB noted at this time. Trach is patent and secured. Pt sx'd at this time. AMBU bag and spare trach at bedside. Will continue to monitor closely.
== END 2022-06-10 16:00 | disposition short-term general hospital (02) | DRG 207 ==
LOC: SA 12-30 15:24 → UNDOLOA 06-10 19:40 → SA 06-10 19:45
PROVIDERS: ADMIT Internal Medicine; ATTEND Internal Medicine
PROC: 5A1955Z Respiratory Ventilation, Greater than 96 Consecutive Hours (ICD-10-PCS; principal; 2021-12-30)
DX: J96.21 Acute and chronic respiratory failure with hypoxia (principal); E43 Unspecified severe protein-calorie malnutrition; N17.0 Acute kidney failure with tubular necrosis; G92.8 Other toxic encephalopathy; R40.3 Persistent vegetative state; R64 Cachexia; Z99.11 Dependence on respirator [ventilator] status; E87.0 Hyperosmolality and hypernatremia; E87.2 Acidosis; N39.0 Urinary tract infection, site not specified; Z86.16 Personal history of COVID-19; N40.0 Benign prostatic hyperplasia without lower urinary tract symptoms; R13.10 Dysphagia, unspecified; D63.8 Anemia in other chronic diseases classified elsewhere; E11.9 Type 2 diabetes mellitus without complications; E78.5 Hyperlipidemia, unspecified; E88.09 Other disorders of plasma-protein metabolism, not elsewhere classified; F02.80 Dementia in other diseases classified elsewhere, unspecified severity, without behavioral disturbance, psychotic disturbance, mood disturbance, and anxiety; F32.A Depression, unspecified; G30.9 Alzheimer's disease, unspecified; I10 Essential (primary) hypertension; Z93.0 Tracheostomy status; S30.0XXA Contusion of lower back and pelvis, initial encounter; X58.XXXA Exposure to other specified factors, initial encounter; Y93.9 Activity, unspecified; Y92.89 Other specified places as the place of occurrence of the external cause; Z74.01 Bed confinement status; K21.9 Gastro-esophageal reflux disease without esophagitis; H26.9 Unspecified cataract; Z86.14 Personal history of Methicillin resistant Staphylococcus aureus infection
CPT/HCPCS: 31720; 36415; 36600; 71045-TC; 80048-TC; 80053-TC; 80076-TC; 81001; 82803-TC; 82962-TC; 84295-TC; 85025-TC; 86580-TC; 87040-TC; 87045-TC; 87070-TC; 87081-TC; 87086-TC; 87177; 87186-TC; 87209; 94002; 94002-TC; 94003-TC; 94640-TC; 94760-TC; 94762-TC; 94799-TC; 97110-TC; 97530-TC; 99082-TC; A4349; A4623; A6248; A7526; J0692; J1650; J1815; J2543; J7030; J7050; J7060; J8540; U0003

== ENCOUNTER 2022-06-10 19:20 | Inpatient (IN) | payer MEDICARE, OTHER ==
[~2022-06-10] VITALS: Ht 177.8 cm; Wt 41.7 kg
[2022-06-10] VITALS (15 sets, daily range): BP systolic 81–101; BP diastolic 50–74
[~2022-06-10 19:20] MED LIST changes: +ALBU2.5V13 IH; +ALLA266C2 TP; +ATOR40TA GT; +BLOO-668 IN; +DEXA4VIA17 IV; +DEXT50DI8 IV; +ENOX40DI SQ; +INSU100V3 SQ; +NUT.237L30 GT; +NYST15PO4 TP; +PANT40SU2 GT; +POLY17PO4 GT
[2022-06-10] MEDS ORDERED: hydrALAZINE HCL IV 20 MG VIAL IV PRN (19:30)
[2022-06-10] MEDS ORDERED: ALBUTEROL FS 2.5 MG/0.5 ML VIAL.NEB IH PRN (19:30)
[2022-06-10] MEDS ORDERED: IV 1/2NS 1000 ML 1,000 ML IV PRN (19:30)
[2022-06-10] MEDS ORDERED: Z GUARD REMEDY 4 OZ OINT TP PRN (19:30)
[2022-06-10] MEDS ORDERED: IV D5/0.45 NACL 1,000 ML IV PRN (19:30)
[2022-06-10] MEDS ORDERED: POLYETHYLENE GLYCOL 3350 17 GM POWD.PACK GT PRN (19:30)
[2022-06-10] MEDS ORDERED: ONDANSETRON HCL/PF 4 MG/2 ML VIAL IVP PRN (19:30)
[2022-06-10] MEDS ORDERED: ACETAMINOPHEN 325 MG TABLET PO PRN (19:30)
[2022-06-10] MEDS ORDERED: INSULIN REGULAR, HUMAN 100 UNIT in IV NS 0.9% 99 ML IV PRN ×2 (19:30)
[2022-06-10] MEDS ORDERED: MORPHINE SULFATE INJ 2 MG/ML DISP.SYRIN IV PRN (19:30)
[2022-06-10] MEDS ORDERED: INSULIN REGULAR, HUMAN 100 UNIT/ML 3 ML VIAL SQ ONE (20:00)
[2022-06-10 20:12] LABS: ABG BASE EXCESS -8.6 mmol/L; ABG OXYGEN SATURATION 98.2 % (92.0-98.5); ABG PCO2 31.2 mmHg (35.0-45.0); ABG PH 7.329 (7.350-7.450); ABG PO2 110.7 mmHg (75.0-100.0); AaDO2 52.1 mmHg; COHb 0.9 % (0.5-1.5); MetHb 0.4 % (0.0-1.5); O2Hb 96.9 % (94.0-97.0); SITE, ABG Right Radial; VENT MODE, BG COOL AEROSOL 28%
--- NOTE | 2022-06-10 20:20 | NUR ---
FAVOR MAKER. RECEIVED THE PT FROM [facility] . ADMITTED FOR LOW BLOOD PRESSURE, PT IS OBTUNDED. TRACH VIA OXYGEN T PIECE. GT INTACT. FC PATENT. HOB ELEVATED, IV RT UPPER ARM PICC LINE. FC PATENT. TEMPERATURE 99.8. ALL LABS SEND. INSULIN DRIP STARTED, IVF D5I/2 NS RUNNING, WILL CONTINUE TO MONITOR VITALS.
[2022-06-10 20:43] LABS: BASOPHILS % (AUTO) 0.3 % (0.0-2.0); EOSINOPHILS % (AUTO) 0.1 % (0.0-6.0); HEMATOCRIT 45 % (39-51); HEMOGLOBIN 14.2 g/dL (13.5-17.5); LYMPHOCYTES # (AUTO) 0.8 K/uL (0.8-4.8); LYMPHOCYTES % (AUTO) 6.2 % (20.0-44.0); MEAN CORPUSCULAR HGB CONC 31 g/dl (31.0-36.0); MEAN CORPUSCULAR VOLUME 81 fL (80-96); MONOCYTES # (AUTO) 1.2 K/uL (0.1-1.30); NEUTROPHILS # (AUTO) 10.9 K/uL (1.8-8.9); NEUTROPHILS % (AUTO) 84.4 % (43.0-81.0); PLATELET COUNT (AUTO) 298 K/uL (150-450); RED BLOOD CELL COUNT(AUTO) 5.61 MIL/uL (4.5-6.0)
[2022-06-10 20:56] LABS: ALANINE AMINOTRANSFERASE 19 U/L (12-78); ALBUMIN 2.9 g/dL (3.4-5.0); ALKALINE PHOSPHATASE 110 U/L (46-116); ASPARTATE AMINOTRANSFERASE 12 U/L (15-37); BILIRUBIN,TOTAL 0.4 mg/dL (0.2-1.0); CALCIUM, SERUM 8.7 mg/dL (8.5-10.1); CARBON DIOXIDE 18 mmol/L (21-32); CHLORIDE 123 mmol/L (98-107); CREATININE 1.4 mg/dL (0.6-1.3); GLUCOSE 199 mg/dL (74-106); POTASSIUM 3.2 mmol/L (3.5-5.1); SODIUM SERUM 153 mmol/L (136-145); TOTAL PROTEIN, SERUM 7.2 g/dL (6.4-8.2); UREA NITROGEN, BLOOD 51 mg/dL (7-18)
[2022-06-10] MEDS: MEROPENEM 500 MG in IV NS 0.9% 50 ML IV SCH (20:57)
[2022-06-10] MEDS: IV NS 0.9% 250 ML IV PRN (20:57)
[2022-06-10] MEDS ORDERED: VANCOMYCIN 1.25 GM in IV D5W 250 ML IV ONE (21:00)
[2022-06-10] MEDS ORDERED: INSULIN GLARGINE SQ SCH (22:00)
[2022-06-10] MEDS ORDERED: BLOOD SUGAR DIAGNOSTIC 1 EACH STRIP IN SCH (22:00)
[2022-06-10] MEDS ORDERED: INSULIN REGULAR, HUMAN 100 UNIT/ML 3 ML VIAL SQ PRN (23:00)
[2022-06-10] MEDS ORDERED: DEXTROSE 50%-WATER 50 ML DISP.SYRIN IV PRN (23:00)
[2022-06-10] MEDS ORDERED: *INSULIN REGULAR(HUMULIN R)HUM 100 UNIT/ML VIAL SQ PRN (23:00)
[2022-06-10] MEDS: INSULIN GLARGINE, 100 UNIT/ML CARTRIDGE SQ SCH (23:00)
[2022-06-10] MEDS ORDERED: BLOOD SUGAR DIAGNOSTIC 1 EACH STRIP VI SCH (23:00)
[2022-06-10] MEDS ORDERED: INSULIN GLARGINE, 100 UNIT/ML CARTRIDGE SQ ONE (23:14)
[2022-06-10] MEDS: IV 1/2NS 1000 ML 1,000 ML IV SCH (23:21)
[2022-06-10] MEDS: VITAL AF 1.2 1,000 ML BOTTLE GT PRN (23:21)
[2022-06-10] MEDS: ATORVASTATIN 40 MG TABLET GT SCH (23:23)
[2022-06-10] MEDS: TAMSULOSIN 0.4 MG CAP.SR.24H GT SCH (23:24)
[2022-06-10 23:39] LABS: BILIRUBIN,DIRECT 0.2 mg/dL (0.0-0.2)
[2022-06-10 23:44] LABS: BILIRUBIN,URINE SMALL (NEGATIVE); COLOR,URINE YELLOW (YELLOW); LEUKOCYTE ESTERASE ,URINE NEGATIVE (NEGATIVE); PH,URINE 5.5 (5.0-8.0); PROTEIN,URINE 30 mg/dl (NEGATIVE); UGLUCOSE NEGATIVE (NEGATIVE); UROBILINOGEN,URINE 0.2 EU/dL (0.2)
[2022-06-10 23:48] LABS: NITRITE, URINE NEGATIVE (NEGATIVE)
[2022-06-11] VITALS (94 sets, daily range): BP systolic 64–131; BP diastolic 20–83
[2022-06-11] MEDS: NOREPINEPHRINE 8 MG in IV NS 0.9% 242 ML IV PRN ×2 (00:29→22:58)
--- NOTE | 2022-06-11 01:00 | NUR ---
INSULIN DRIP. D/C, MD DE ANDA ORDERED. INSULIN PER SLIDING SCALE..
--- NOTE | 2022-06-11 02:00 | NUR ---
CEMENT CRUSHER OPERATOR. RT UPPER ARM PICC LINE PLACED. GT FEED STARTED. WILL CONTINUE TO MONITOR VITALS.
--- NOTE | 2022-06-11 04:00 | NUR ---
BACKEND TESTER. AM CARE GIVEN. REMAINING SAME BIPAP SETTINGS TOLERATED WELL. SAT 98%. NO ACUTE DISTRESS NOTED. FOUNDER CHAIRMAN AND CHIEF CREATIVE OFFICER SHOWING S TACH. IV RTUPPER ARM PICC LINE. .GT FEEDING TOLERATED WELL. HOB ELEVATED, FC PATENT. TURN AND REPOSITION Q2H. WILL CONTINUE TO MONITOR VITALS.
[2022-06-11] MEDS: MEROPENEM 500 MG in IV NS 0.9% 50 ML IV SCH ×3 (04:10→21:26)
[2022-06-11 05:20] LABS: BASOPHILS # (AUTO) 0.1 K/uL (0.0-0.2); BASOPHILS % (AUTO) 0.4 % (0.0-2.0); EOSINOPHILS % (AUTO) 0.2 % (0.0-6.0); HEMATOCRIT 40 % (39-51); HEMOGLOBIN 12.6 g/dL (13.5-17.5); LYMPHOCYTES # (AUTO) 0.8 K/uL (0.8-4.8); LYMPHOCYTES % (AUTO) 6.1 % (20.0-44.0); MEAN CORPUSCULAR HGB CONC 32 g/dl (31.0-36.0); MEAN CORPUSCULAR VOLUME 80 fL (80-96); MONOCYTES # (AUTO) 1.6 K/uL (0.1-1.30); MONOCYTES % (AUTO) 12.9 % (2.0-12.0); NEUTROPHILS # (AUTO) 10.1 K/uL (1.8-8.9); NEUTROPHILS % (AUTO) 80.4 % (43.0-81.0); PLATELET COUNT (AUTO) 304 K/uL (150-450); RED BLOOD CELL COUNT(AUTO) 4.96 MIL/uL (4.5-6.0); WHITE BLOOD COUNT (AUTO) 12.5 K/uL (4.3-11.0)
[2022-06-11 05:37] LABS: ALANINE AMINOTRANSFERASE 18 U/L (12-78); ALBUMIN 2.5 g/dL (3.4-5.0); ALKALINE PHOSPHATASE 98 U/L (46-116); ASPARTATE AMINOTRANSFERASE 15 U/L (15-37); BILIRUBIN,TOTAL 0.5 mg/dL (0.2-1.0); CALCIUM, SERUM 8.2 mg/dL (8.5-10.1); CARBON DIOXIDE 20 mmol/L (21-32); CHLORIDE 120 mmol/L (98-107); CREATININE 1.1 mg/dL (0.6-1.3); GLUCOSE 78 mg/dL (74-106); MAGNESIUM 2.1 mg/dL (1.8-2.4); PHOSPHORUS 1.8 mg/dL (2.5-4.9); POTASSIUM 3.3 mmol/L (3.5-5.1); SODIUM SERUM 152 mmol/L (136-145); TOTAL PROTEIN, SERUM 6.5 g/dL (6.4-8.2); UREA NITROGEN, BLOOD 49 mg/dL (7-18)
--- NOTE | 2022-06-11 07:30 | NUR ---
OPENING NOTE: REPORT RECEIVED FROM SABRA MONET. LABS AND ORDERS REVIEWED DURING REPORT. PT CURRENTLY ON T-PIECE 5L 28%. PT ON LEVOPHED GTT PER MD ORDERS, CURRENTLY INFUSING AT 0.1 MCG/KG/MIN. PT CHECKED ON HOURLY AND PRN BY NURSING STAFF.
[2022-06-11] MEDS: IPRATROPIUM/ALBUTEROL INHALER IH SCH ×3 (07:35→19:30)
[2022-06-11] MEDS: POTASSIUM PHOSPHATE MM 7.5 MMOL in IV NS 0.9% 100 ML IV SCH ×2 (08:29→12:00)
[2022-06-11] MEDS ORDERED: DEXAMETHASONE SOD PHOSPHATE 10 MG/ML VIAL IV SCH (09:00)
[2022-06-11] MEDS ORDERED: MELA3TAB41 GT (09:07)
[2022-06-11] MEDS ORDERED: PETR113O TP (09:07)
[2022-06-11] MEDS ORDERED: ZINC50TA69 GT (09:07)
[2022-06-11] MEDS ORDERED: [UNRECOGNIZED DRUG - CODE] IV (09:07)
[2022-06-11] MEDS ORDERED: POLY15DR40 EACHEYE (09:07)
[2022-06-11] MEDS ORDERED: FERR325T24 GT (09:07)
[2022-06-11] MEDS ORDERED: INSU100V3 SQ (09:07)
[2022-06-11] MEDS ORDERED: AMIN30LI2 GT (09:07)
[2022-06-11] MEDS ORDERED: HYDR1SOL TP (09:07)
[2022-06-11] MEDS ORDERED: ASCO-340 GT (09:07)
[2022-06-11] MEDS ORDERED: ONDA4TAB11 GT (09:07)
[2022-06-11] MEDS ORDERED: ACID1TAB12 GT (09:07)
[2022-06-11] MEDS ORDERED: BENEFIBER GT (09:07)
[2022-06-11] MEDS ORDERED: BISA10SU11 RC (09:07)
[2022-06-11] MEDS ORDERED: ASPI-1169 GT (09:07)
[2022-06-11] MEDS ORDERED: POTA20PA3 GT (09:07)
[2022-06-11] MEDS ORDERED: NUT.237L65 GT (09:07)
[2022-06-11] MEDS ORDERED: POTASSIUM CHLORIDE 20 MEQ POWDER PACKET GT SCH (10:00)
[2022-06-11] MEDS: PANTOPRAZOLE 40 MG/PACK PACK GT SCH (10:15)
[2022-06-11] MEDS: NYSTATIN TOP POWDER 15 GM BOTTLE TP SCH ×2 (10:16→18:00)
[2022-06-11] MEDS: ENOXAPARIN SODIUM 40 MG/0.4 ML DISP.SYRIN SQ SCH (10:17)
[2022-06-11] MEDS: IV 1/2NS 1000 ML 1,000 ML IV SCH ×2 (12:00→21:26)
[2022-06-11] MEDS: BLOOD SUGAR DIAGNOSTIC 1 EACH STRIP IN SCH ×2 (13:21→19:08)
[2022-06-11] MEDS: INSULIN REGULAR, HUMAN 100 UNIT/ML 3 ML VIAL SQ PRN ×2 (13:22→19:09)
[2022-06-11] MEDS: VANCOMYCIN 0.75 GM in IV D5W 250 ML IV SCH (15:38)
--- NOTE | 2022-06-11 19:40 | NUR ---
END OF SHIFT NOTE: PT'S RAPID COVID TEST CAME BACK POSITIVE. THE PCR SWABBED LAST NIGHT AT 1730 CAME BACK NEGATIVE TODAY. PER DR CANCHOLA ANOTHER PCR SWAB WAS SENT TODAY. PT REMAINS IN COVID ISOLATION. PT HAD 2 BM'S TODAY, BOTH TIMES THE STOOL WAS WHITE, SMELLED AND LOOKED LIKE THE TUBE FEEDING. RN LOOKED FOR SIGNS OF LEAKING FROM PEG TUBE AT PEG SITE AND FROM TUBE, NO LEAKING NOTED. FLUID WAS ONLY FOUND AROUND PRUDENCIO AREA POOLED. TUBE FEEDING WAS STOPPED AT 1830 WHEN PATIENT WAS CLEANED UP THE SECOND TIME. ENDORSED TO NEXT SHIFT. TMAX TODAY WAS 100.7. PT CHANGED TO T-PIECE 2L TODAY. PT CONTINUES TO BE ON LEVOPHED 0.1 MCG/KG/MIN PER MD ORDERS. PT CHECKED ON HOURLY AND PRN BY NURSING STAFF.
--- NOTE | 2022-06-11 20:42 | NUR ---
RN NOTE INFORMED DR. HUNTLEY THAT PATIENT FEEDING WAS HELD BY PRIOR SHIFT D/T GTUBE SEEMS TO BE COMING DIRECTLY OUT INTO PRUDENCIO AREA. NO SIGNS OF GT LEAKING. RECEIVED ORDER TO HOLD GT FEEDING. ORDER NOTED AND CARRIED OUT.
[2022-06-11] MEDS ORDERED: VANCOMYCIN 0.75 GM in IV D5W 250 ML IV SCH (21:00)
[2022-06-11] MEDS: HYDROGEL DRESSING 90 GM TUBE TP SCH (21:30)
[2022-06-11] MEDS: TAMSULOSIN 0.4 MG CAP.SR.24H GT SCH (21:33)
[2022-06-11] MEDS: ATORVASTATIN 40 MG TABLET GT SCH (21:33)
[2022-06-11] MEDS: INSULIN GLARGINE, 100 UNIT/ML CARTRIDGE SQ SCH (21:51)
[2022-06-12] VITALS (94 sets, daily range): BP systolic 68–123; BP diastolic 28–71
[2022-06-12] MEDS: VANCOMYCIN 0.75 GM in IV D5W 250 ML IV SCH ×2 (00:26→14:05)
[2022-06-12] MEDS: BLOOD SUGAR DIAGNOSTIC 1 EACH STRIP IN SCH ×5 (00:26→23:06)
[2022-06-12] MEDS: IPRATROPIUM/ALBUTEROL INHALER IH SCH ×4 (01:30→19:30)
[2022-06-12 04:08] LABS: BASOPHILS % (AUTO) 0.1 % (0.0-2.0); HEMATOCRIT 34 % (39-51); HEMOGLOBIN 10.7 g/dL (13.5-17.5); LYMPHOCYTES # (AUTO) 0.8 K/uL (0.8-4.8); LYMPHOCYTES % (AUTO) 9.9 % (20.0-44.0); MEAN CORPUSCULAR HGB CONC 32 g/dl (31.0-36.0); MEAN CORPUSCULAR VOLUME 79 fL (80-96); MONOCYTES # (AUTO) 0.9 K/uL (0.1-1.30); MONOCYTES % (AUTO) 10.6 % (2.0-12.0); NEUTROPHILS # (AUTO) 6.6 K/uL (1.8-8.9); NEUTROPHILS % (AUTO) 79.4 % (43.0-81.0); PLATELET COUNT (AUTO) 242 K/uL (150-450); RED BLOOD CELL COUNT(AUTO) 4.26 MIL/uL (4.5-6.0); WHITE BLOOD COUNT (AUTO) 8.4 K/uL (4.3-11.0)
[2022-06-12 04:46] LABS: CARBON DIOXIDE 18 mmol/L (21-32); CHLORIDE 114 mmol/L (98-107); CREATININE 0.9 mg/dL (0.6-1.3); GLUCOSE 175 mg/dL (74-106); POTASSIUM 3.2 mmol/L (3.5-5.1); SODIUM SERUM 144 mmol/L (136-145); UREA NITROGEN, BLOOD 32 mg/dL (7-18)
[2022-06-12] MEDS: MEROPENEM 500 MG in IV NS 0.9% 50 ML IV SCH ×3 (04:46→21:38)
[2022-06-12 04:51] LABS: CALCIUM, SERUM 7.7 mg/dL (8.5-10.1)
[2022-06-12] MEDS: IV 1/2NS 1000 ML 1,000 ML IV SCH ×2 (06:10→16:49)
[2022-06-12] MEDS: IV NS 0.9% 250 ML IV PRN (06:11)
--- NOTE | 2022-06-12 06:21 | NUR ---
RN CLOSING NOTE PATIENT RESTING IN BED. OBTUNDED. 2L VIA TPIECE. PATIENT HAS VERY THICK, MODERATE AMOUNT OF MARTINEZ/ YELLOW SECRETIONS. NO S/S PAIN NOTED. SR/ ST ON THE MONITOR. PRN TYLENOL GIVEN FOR TMAX 100.6 AXILLARY. DUENAS CATHETER PRESENT, DRAINING TO GRAVITY, GTUBE NO RESIDUAL, CLAMPED. NO BM THIS SHIFT. MEPILEX ADDED ON WOUND. LEVO @0.1MCG. BLOOD SUGAR MONITORED, NO INSULIN COVERAGE D/T HELD FEEDING.
--- NOTE | 2022-06-12 07:24 | NUR ---
WOUND CARE CONSULT: PT FOLLOWED BY PLASTIC SURGERY TEAM FOR SACRAL PRESSURE ULCER WHICH WAS NOTED TO BE PRESENT ON ADMISSION. REVIEWED CHART, NURSING DOCUMENTATION AND PHOTO WHICH INDICATES SACRAL WOUND PRESENT ON ADMISSION. PT IS ON FIRST STEP CIRRUS LOW AIRLOSS MATTRESS. ALL SKIN PROTRECTION MEASURES IN PLACE AND DISCUSSED WITH NURSING STAFF. MD IN AGREEMENT WITH PLAN OF CARE.
--- NOTE | 2022-06-12 07:53 | NUR ---
RT UNABLE TO GIVE COMBIVENT INHALER. PATIENT IS TRACHED AND NON RESPONSIVE.
[2022-06-12] MEDS: POTASSIUM CL. PREMIX PERIPHER. 50 ML IV SCH ×4 (08:51→14:03)
[2022-06-12] MEDS: NYSTATIN TOP POWDER 15 GM BOTTLE TP SCH ×2 (09:00→17:00)
[2022-06-12] MEDS: HYDROGEL DRESSING 90 GM TUBE TP SCH (09:10)
[2022-06-12] MEDS: DEXAMETHASONE SOD PHOSPHATE 10 MG/ML VIAL IV SCH (09:10)
[2022-06-12] MEDS: PANTOPRAZOLE 40 MG/PACK PACK GT SCH (09:10)
[2022-06-12] MEDS: ENOXAPARIN SODIUM 40 MG/0.4 ML DISP.SYRIN SQ SCH (09:14)
[2022-06-12] MEDS: INSULIN REGULAR, HUMAN 100 UNIT/ML 3 ML VIAL SQ PRN ×2 (18:44→23:11)
--- NOTE | 2022-06-12 19:30 | NUR ---
RN Note Received patient in bed, obtunded. Trach & T/P on 2L/min. Tolerating well with O2 Saturation of 96%. Suctioned via trach, thick/white secretions. Skin warm and dry to touch. Noted with right upper arm picc and right forearm 22G piv. noted with indwelling aguiar catheter. no bleeding at this time. assisted with turning and repositioning. bed low, in locked position. will continue to monitor.
[2022-06-12] MEDS: NOREPINEPHRINE 8 MG in IV NS 0.9% 242 ML IV PRN (21:32)
[2022-06-12] MEDS: TAMSULOSIN 0.4 MG CAP.SR.24H GT SCH (21:42)
[2022-06-12] MEDS: ATORVASTATIN 40 MG TABLET GT SCH (21:42)
[2022-06-12] MEDS: VITAL AF 1.2 1,000 ML BOTTLE GT PRN (22:19)
[2022-06-12] MEDS: INSULIN GLARGINE, 100 UNIT/ML CARTRIDGE SQ SCH (23:08)
[2022-06-13] VITALS (94 sets, daily range): BP systolic 74–152; BP diastolic 27–71
[2022-06-13] MEDS: VANCOMYCIN 0.75 GM in IV D5W 250 ML IV SCH ×2 (01:09→13:32)
[2022-06-13] MEDS: IPRATROPIUM/ALBUTEROL INHALER IH SCH ×4 (01:30→20:01)
[2022-06-13] MEDS: IV 1/2NS 1000 ML 1,000 ML IV SCH ×3 (02:33→22:00)
[2022-06-13 04:18] LABS: BASOPHILS % (AUTO) 0.1 % (0.0-2.0); HEMATOCRIT 31 % (39-51); HEMOGLOBIN 10.1 g/dL (13.5-17.5); LYMPHOCYTES # (AUTO) 0.6 K/uL (0.8-4.8); LYMPHOCYTES % (AUTO) 7.9 % (20.0-44.0); MEAN CORPUSCULAR HGB CONC 33 g/dl (31.0-36.0); MEAN CORPUSCULAR VOLUME 79 fL (80-96); MONOCYTES # (AUTO) 0.6 K/uL (0.1-1.30); MONOCYTES % (AUTO) 7.8 % (2.0-12.0); NEUTROPHILS # (AUTO) 6.4 K/uL (1.8-8.9); NEUTROPHILS % (AUTO) 84.2 % (43.0-81.0); PLATELET COUNT (AUTO) 277 K/uL (150-450); RED BLOOD CELL COUNT(AUTO) 3.97 MIL/uL (4.5-6.0); WHITE BLOOD COUNT (AUTO) 7.7 K/uL (4.3-11.0)
[2022-06-13 04:26] LABS: CALCIUM, SERUM 7.7 mg/dL (8.5-10.1); CARBON DIOXIDE 22 mmol/L (21-32); CHLORIDE 107 mmol/L (98-107); CREATININE 0.8 mg/dL (0.6-1.3); GLUCOSE 245 mg/dL (74-106); POTASSIUM 3.9 mmol/L (3.5-5.1); SODIUM SERUM 136 mmol/L (136-145); UREA NITROGEN, BLOOD 24 mg/dL (7-18)
[2022-06-13] MEDS: MEROPENEM 500 MG in IV NS 0.9% 50 ML IV SCH ×3 (04:40→20:02)
[2022-06-13] MEDS: BLOOD SUGAR DIAGNOSTIC 1 EACH STRIP IN SCH ×4 (05:09→23:19)
[2022-06-13] MEDS: INSULIN REGULAR, HUMAN 100 UNIT/ML 3 ML VIAL SQ PRN ×2 (05:10→23:20)
[2022-06-13] MEDS: PANTOPRAZOLE 40 MG/PACK PACK GT SCH (09:20)
[2022-06-13] MEDS: HYDROGEL DRESSING 90 GM TUBE TP SCH (09:20)
[2022-06-13] MEDS: DEXAMETHASONE SOD PHOSPHATE 10 MG/ML VIAL IV SCH (09:20)
[2022-06-13] MEDS: NYSTATIN TOP POWDER 15 GM BOTTLE TP SCH ×2 (09:20→17:56)
[2022-06-13] MEDS: ENOXAPARIN SODIUM 40 MG/0.4 ML DISP.SYRIN SQ SCH (09:25)
[2022-06-13] MEDS: NOREPINEPHRINE 8 MG in IV NS 0.9% 242 ML IV PRN (12:46)
--- NOTE | 2022-06-13 20:00 | NUR ---
RN Note Received patient in bed, awake, and responsive to stimuli. Verbal but with incomprehensible sounds. Trach shiley 8 & T/P on 2L/min. Tolerating well, o2 saturation of 100 percent via bedside monitor. HOB elevated 30 degrees. Suctioned via trach, moderate amount of thick/white secretions. Skin warm and dry to touch. Noted with right upper arm picc and right forearm 22G piv. currently infusing levo at 0.2 mcg and 1/2 ns at 100 cc/hr. noted with indwelling Valero catheter draining yellow urine by gravity. Patient turned and repositioned. Be low, in locked position. will continue to monitor.
[2022-06-13] MEDS: MUPIROCIN OINT 2% 22 GM TUBE NS SCH (20:09)
[2022-06-13] MEDS: TAMSULOSIN 0.4 MG CAP.SR.24H GT SCH (21:05)
[2022-06-13] MEDS: ATORVASTATIN 40 MG TABLET GT SCH (21:05)
[2022-06-13] MEDS: IV NS 0.9% 250 ML IV PRN (21:28)
[2022-06-13] MEDS: INSULIN GLARGINE, 100 UNIT/ML CARTRIDGE SQ SCH (23:18)
[2022-06-13] MEDS ORDERED: IV D5W 1,000 ML IV PRN (23:30)
[2022-06-14] VITALS (95 sets, daily range): BP systolic 74–160; BP diastolic 45–99
[2022-06-14] MEDS: VANCOMYCIN 0.75 GM in IV D5W 250 ML IV SCH ×2 (00:04→13:13)
[2022-06-14] MEDS: IPRATROPIUM/ALBUTEROL INHALER IH SCH ×4 (01:47→20:51)
[2022-06-14 04:42] LABS: CALCIUM, SERUM 7.6 mg/dL (8.5-10.1); CARBON DIOXIDE 25 mmol/L (21-32); CHLORIDE 102 mmol/L (98-107); CREATININE 0.8 mg/dL (0.6-1.3); GLUCOSE 249 mg/dL (74-106); POTASSIUM 3.1 mmol/L (3.5-5.1); SODIUM SERUM 134 mmol/L (136-145); UREA NITROGEN, BLOOD 17 mg/dL (7-18)
[2022-06-14] MEDS: MEROPENEM 500 MG in IV NS 0.9% 50 ML IV SCH ×3 (05:05→21:22)
[2022-06-14] MEDS: BLOOD SUGAR DIAGNOSTIC 1 EACH STRIP IN SCH ×3 (05:15→17:07)
[2022-06-14] MEDS: INSULIN REGULAR, HUMAN 100 UNIT/ML 3 ML VIAL SQ PRN (05:20)
--- NOTE | 2022-06-14 07:15 | NUR ---
OPEN NOTE MOLD CHIPPER ENDORSED UP TITRATION OF LEVO TO 0.2, CHANGE IN FLUIDS TO D5 FEEDING WAS HELD THROUGHT THE NIGHT WILL ATTEMPT TO CONTINUE FEEDING TODAY. PT IS IN BED WITH EYES CLOSED AND RESTING, BREATHING APPEARED TO BE MORE LABORED AND MOLD CHIPPER REPORTED INCREASED SECRETIONS COMPARED TO DAY SHIFT. PT WAS SUCTIONED AND AIRWAY WAS CLEARED. V/S ARE STABLE AND PT CARED FOR AND IS NOW NOT EXHIBITING S/S OF DISTRESS. LABS REVIEWED BED LOCKED
[2022-06-14] MEDS: PANTOPRAZOLE 40 MG/PACK PACK GT SCH (08:20)
[2022-06-14] MEDS: ENOXAPARIN SODIUM 40 MG/0.4 ML DISP.SYRIN SQ SCH (08:20)
[2022-06-14] MEDS: MUPIROCIN OINT 2% 22 GM TUBE NS SCH ×2 (08:21→17:07)
[2022-06-14] MEDS: NYSTATIN TOP POWDER 15 GM BOTTLE TP SCH (08:21)
[2022-06-14] MEDS ORDERED: MUPIROCIN OINT 2% 22 GM TUBE NS SCH (09:00)
[2022-06-14] MEDS: POTASSIUM CL. PREMIX PERIPHER. 50 ML IV SCH ×4 (09:11→13:13)
[2022-06-14] MEDS: VITAL AF 1.2 1,000 ML BOTTLE GT PRN (10:49)
[2022-06-14] MEDS: IV NS 0.9% 1,000 ML IV PRN ×2 (11:27→21:25)
[2022-06-14] MEDS: NOREPINEPHRINE 8 MG in IV NS 0.9% 242 ML IV PRN ×3 (16:00)
[2022-06-14] MEDS: DEXTROSE 50%-WATER 50 ML DISP.SYRIN IV PRN (17:07)
[2022-06-14] MEDS: VANCOMYCIN 500 MG in IV D5W 100 ML IV SCH (18:00)
--- NOTE | 2022-06-14 19:15 | NUR ---
WIRE WRAPPER MACHINE OPERATOR NOTES RECEIVED TRACH PT FOR CONTINUITY OF CARE. PATIENT OBTUNDED,IN NO S/SX OF ACUTE DISTRESS AT THIS TIME; CURRENTLY ON 2L OF O2 VIA T PIECE, WITH 02 SAT >95% AT THIS TIME. RECEIVED PT WITH RUNNING DRIPS FOLLOWS: NS@75CC/HR, LEVO RECEIVED AT 0.2MCG/KG/MIN RUNNING, MONITORED AND ADJUSTED PER PROTOCOL. WITH GTUBE FEEDING RUNNING PRESCRIBED. WILL ENSURE SAFETY MEASURES WITHIN THE SHIFT. PATIENT BED ALARM IS ON. HEAD OF BED ELEVATED. BED IS LOCKED, IN LOWEST POSITION AND SIDE RAILS UP. CALL LIGHT WITHIN REACH OF THE PATIENT. WILL CONTINUE TO MONITOR AND REASSESS FOR ANY CHANGES AND WILL CARRY OUT ANY ONGOING AND ACTIVE MD ORDER.
[2022-06-14] MEDS: ATORVASTATIN 40 MG TABLET GT SCH (21:22)
[2022-06-14] MEDS: TAMSULOSIN 0.4 MG CAP.SR.24H GT SCH (21:22)
[2022-06-14] MEDS: INSULIN GLARGINE, 100 UNIT/ML CARTRIDGE SQ SCH (21:34)
[2022-06-15] VITALS (61 sets, daily range): BP systolic 87–145; BP diastolic 45–87
[2022-06-15] MEDS: INSULIN REGULAR, HUMAN 100 UNIT/ML 3 ML VIAL SQ PRN ×3 (00:33→23:41)
[2022-06-15] MEDS: BLOOD SUGAR DIAGNOSTIC 1 EACH STRIP IN SCH ×5 (00:33→23:41)
[2022-06-15] MEDS: IPRATROPIUM/ALBUTEROL INHALER IH SCH (01:11)
--- NOTE | 2022-06-15 04:00 | NUR ---
RN NOTES PATIENT REMAINED TO BE IN NO SIGNS OF ACUTE RESPIRATORY DISTRESS , VITAL SIGNS STABLE AT THIS TIME. REGULAR TURNING AND REPOSITIONING DONE, AM PATIENT CARE RENDERED WILL CONTINUE TO MONITOR AND REASSESS FOR ANY CHANGES THROUGHOUT THE SHIFT.
[2022-06-15 05:14] LABS: CALCIUM, SERUM 7.7 mg/dL (8.5-10.1); CARBON DIOXIDE 29 mmol/L (21-32); CHLORIDE 104 mmol/L (98-107); CREATININE 0.7 mg/dL (0.6-1.3); GLUCOSE 65 mg/dL (74-106); POTASSIUM 2.9 mmol/L (3.5-5.1); SODIUM SERUM 142 mmol/L (136-145); UREA NITROGEN, BLOOD 10 mg/dL (7-18)
[2022-06-15] MEDS: MEROPENEM 500 MG in IV NS 0.9% 50 ML IV SCH ×3 (05:31→20:47)
[2022-06-15] MEDS ORDERED: DEXTROSE 50%-WATER 50 ML DISP.SYRIN ONE (05:53)
[2022-06-15] MEDS: DEXTROSE 50%-WATER 50 ML DISP.SYRIN IV PRN ×2 (05:55→17:41)
[2022-06-15] MEDS: VANCOMYCIN 500 MG in IV D5W 100 ML IV SCH ×2 (06:01→17:23)
--- NOTE | 2022-06-15 06:52 | NUR ---
EMAIL MARKETING COORDINATOR CLOSING NOTE: PATIENT REMAINS IN ROOM IN NO SIGNS OF RESPIRATORY DISTRESS, PATIENT STILL ON CURRENTLY ON 2L OF O2 VIA T PIECE;TOLERATING WELL SATURATING @ >95% SP02. SAFETY MEASURES IMPLEMENTED, BED IN LOWEST POSITION, LOCKED, SIDE RAILS UP, CALL LIGHT WITHIN REACH. ALL NEEDS AND ORDERS ADDRESSED DURING THE SHIFT. IV ACCESS MAINTAINED INTACT, SECURED AND FLUSHING WELL. ALL DUE MEDS GIVEN ORDERED & SCHEDULED ; PATIENT TOLERATED WELL. STILL WITH ONGOING DRIP FOLLOWS: NS@75CC/HR, LEVO RECEIVED AT 0.1 MCG/KG/MIN RUNNING, MONITORED AND ADJUSTED PER PROTOCOL. ALSO HAS ON GOING TUBE FEEDING PRESCRIBED; TOLERATED WELL. PATIENT KEPT CLEAN AND COMFORTABLE WITHIN THE SHIFT. PATIENT ENDORSED TO INCOMING SHIFT RN WITH STABLE VITAL SIGN AND FOR CONTINUITY OF CARE.
--- NOTE | 2022-06-15 07:30 | NUR ---
TERRESTRIAL ECOLOGIST OPENING NOTE RECEIVED PATIENT IN BED, OBTUNDED. WITH 2L OF OXYGEN VIA T-PIECE, O2 SATURATION AT 100%. SINUS BRADYCARDIA ON HEPATOLOGY PHYSICIAN. BREATHING UNLABORED AND NOT IN ANY FORM OF DISTRESS. DUENAS CATHETER INTACT AND ATTACHED TO URINE BAD DRAINING TO A CLEAR YELLOW URINE. WITH G-TUBE INFUSING WITH VITAL AT 35 CC/HR. WITH RIGHT UPPER ARM PICC LINE INTACT AND PATENT AND INFUSING WITH THE FOLLOWING FLUIDS: LEVOPHED AT 0.1 MCG/KG/MIN, AND NS AT 75 CC/HR. BED IS LOCKED IN LOWEST POSITION, 3 SIDE RAILS UP, CALL LIGHT WITHIN REACH, WILL CONTINUE TO MONITOR THROUGHOUT SHIFT.
[2022-06-15] MEDS: PANTOPRAZOLE 40 MG/PACK PACK GT SCH (09:23)
[2022-06-15] MEDS: MUPIROCIN OINT 2% 22 GM TUBE NS SCH ×2 (09:24→17:14)
[2022-06-15] MEDS ORDERED: POTASSIUM CHLORIDE 20 MEQ POWDER PACKET GT SCH (09:30)
[2022-06-15] MEDS: ENOXAPARIN SODIUM 40 MG/0.4 ML DISP.SYRIN SQ SCH (09:36)
[2022-06-15] MEDS: POTASSIUM CL. PREMIX PERIPHER. 50 ML IV SCH ×5 (10:11→14:48)
[2022-06-15] MEDS: HYDROCORTISONE SOD SUCCINATE 100 MG/2 ML VIAL IV SCH ×2 (12:47→20:43)
[2022-06-15] MEDS: IV NS 0.9% 1,000 ML IV PRN (14:53)
[2022-06-15] MEDS: NOREPINEPHRINE 8 MG in IV NS 0.9% 242 ML IV PRN (15:18)
--- NOTE | 2022-06-15 18:01 | NUR ---
RN NOTE BLOOD SUGAR AT 52 MG/DL. D50 GIVEN. PULLED UP TWICE FROM [employer] D50 INJECTION. THE FIRST ONE WAS ACCIDENTALLY DROPPED AND BROKE BEFORE ADMINISTRATION. THE SECOND D50 WAS GIVEN IV. ONLY ONE D50 WAS SCANNED SINCE IT WAS ADMINISTERED ONLY ONCE. WILL RECHECK BLOOD SUGAR AT 181.
--- NOTE | 2022-06-15 18:11 | NUR ---
RN NOTE RECHECKED BLOOD SUGAR, NOW AT 153 MG/DL/.
[2022-06-15] MEDS: VITAL AF 1.2 1,000 ML BOTTLE GT PRN (18:44)
--- NOTE | 2022-06-15 18:54 | NUR ---
RN CLOSING NOTE PATIENT REMAINED STABLE THROUGHOUT SHIFT. TOLERATES OXYGEN VIA T-PIECE AT 2L/MIN, O2 SAT AT 100%. PATIENT REMAINS NON-VERBAL AND OBTUNDED, BUT OPENS EYES SPONTANEOUSLY. DUENAS CATHETER INTACT. G-TUBE INTACT. RIGHT UPPER ARM PICC LINE INTACT AND PATENT. RIGHT HAND SALINE LOCK INTACT AND PATENT. ALL SAFETY MEASURES IN PLACE. BED IS LOCKED IN LOWEST POSITION, 3 SIDE RAILS UP, CALL LIGHT WITHIN REACH. WILL ENDORSE TO PERMIT TECHNICIAN NURSE.
--- NOTE | 2022-06-15 19:10 | NUR ---
ACCOUNTING REPRESENTATIVE NOTES RECEIVED TRACH PT FOR CONTINUITY OF CARE. PATIENT OBTUNDED,IN NO S/SX OF ACUTE DISTRESS AT THIS TIME; CURRENTLY ON 2L OF O2 VIA T PIECE, WITH 02 SAT >95% AT THIS TIME. RECEIVED PT WITH RUNNING DRIPS FOLLOWS: NS@75CC/HR, LEVO RECEIVED AT 0.1MCG/KG/MIN RUNNING, MONITORED AND ADJUSTED PER PROTOCOL. WITH GTUBE FEEDING RUNNING PRESCRIBED. WILL ENSURE SAFETY MEASURES WITHIN THE SHIFT. PATIENT BED ALARM IS ON. HEAD OF BED ELEVATED. BED IS LOCKED, IN LOWEST POSITION AND SIDE RAILS UP. CALL LIGHT WITHIN REACH OF THE PATIENT. WILL CONTINUE TO MONITOR AND REASSESS FOR ANY CHANGES AND WILL CARRY OUT ANY ONGOING AND ACTIVE MD ORDER.
[2022-06-15] MEDS: ATORVASTATIN 40 MG TABLET GT SCH (21:21)
[2022-06-15] MEDS: TAMSULOSIN 0.4 MG CAP.SR.24H GT SCH (21:22)
[2022-06-15] MEDS: INSULIN GLARGINE, 100 UNIT/ML CARTRIDGE SQ SCH (23:41)
[2022-06-16] VITALS (96 sets, daily range): BP systolic 53–149; BP diastolic 26–97
--- NOTE | 2022-06-16 04:00 | NUR ---
RN NOTES PATIENT REMAINED TO BE IN NO SIGNS OF ACUTE RESPIRATORY DISTRESS , VITAL SIGNS STABLE AT THIS TIME. REGULAR TURNING AND REPOSITIONING DONE,SUCTIONING DONE AND AM PATIENT CARE RENDERED WILL CONTINUE TO MONITOR AND REASSESS FOR ANY CHANGES THROUGHOUT THE SHIFT.
[2022-06-16] MEDS: HYDROCORTISONE SOD SUCCINATE 100 MG/2 ML VIAL IV SCH ×3 (04:34→21:10)
[2022-06-16] MEDS: MEROPENEM 500 MG in IV NS 0.9% 50 ML IV SCH (04:34)
[2022-06-16] MEDS: IV NS 0.9% 1,000 ML IV PRN ×2 (04:35→18:46)
[2022-06-16] MEDS: BLOOD SUGAR DIAGNOSTIC 1 EACH STRIP IN SCH ×4 (05:12→23:25)
[2022-06-16] MEDS: INSULIN REGULAR, HUMAN 100 UNIT/ML 3 ML VIAL SQ PRN ×2 (05:12→23:26)
[2022-06-16 05:17] LABS: HEMATOCRIT 32 % (39-51); HEMOGLOBIN 10.6 g/dL (13.5-17.5); LYMPHOCYTES # (AUTO) 0.5 K/uL (0.8-4.8); LYMPHOCYTES % (AUTO) 8.6 % (20.0-44.0); MEAN CORPUSCULAR HGB CONC 33 g/dl (31.0-36.0); MEAN CORPUSCULAR VOLUME 77 fL (80-96); MONOCYTES # (AUTO) 0.2 K/uL (0.1-1.30); MONOCYTES % (AUTO) 3.9 % (2.0-12.0); NEUTROPHILS # (AUTO) 5.1 K/uL (1.8-8.9); NEUTROPHILS % (AUTO) 87.5 % (43.0-81.0); PLATELET COUNT (AUTO) 242 K/uL (150-450); RED BLOOD CELL COUNT(AUTO) 4.12 MIL/uL (4.5-6.0); WHITE BLOOD COUNT (AUTO) 5.9 K/uL (4.3-11.0)
--- NOTE | 2022-06-16 05:18 | NUR ---
RT NOTE TRACH CARE DONE, GAUZE CHANGED WITH INNER CANNULA. SUCTION DONE, TRACH SECURED AND PATENT. NO SOB NOTED.
[2022-06-16 05:34] LABS: CALCIUM, SERUM 7.3 mg/dL (8.5-10.1); CARBON DIOXIDE 30 mmol/L (21-32); CHLORIDE 106 mmol/L (98-107); CREATININE 0.7 mg/dL (0.6-1.3); GLUCOSE 101 mg/dL (74-106); PHOSPHORUS 2.4 mg/dL (2.5-4.9); POTASSIUM 3.9 mmol/L (3.5-5.1); SODIUM SERUM 139 mmol/L (136-145); UREA NITROGEN, BLOOD 10 mg/dL (7-18)
[2022-06-16] MEDS: VANCOMYCIN 500 MG in IV D5W 100 ML IV SCH ×2 (06:01→17:10)
--- NOTE | 2022-06-16 06:25 | NUR ---
LITERACY TEACHER CLOSING NOTE: PATIENT REMAINS IN ROOM IN NO SIGNS OF RESPIRATORY DISTRESS, PATIENT STILL ON CURRENTLY ON 2L OF O2 VIA T PIECE;TOLERATING WELL SATURATING @ >95% SP02. SAFETY MEASURES IMPLEMENTED, BED IN LOWEST POSITION, LOCKED, SIDE RAILS UP, CALL LIGHT WITHIN REACH. ALL NEEDS AND ORDERS ADDRESSED DURING THE SHIFT. IV ACCESS MAINTAINED INTACT, SECURED AND FLUSHING WELL. ALL DUE MEDS GIVEN ORDERED & SCHEDULED ; PATIENT TOLERATED WELL. STILL WITH ONGOING DRIP FOLLOWS: NS@75CC/HR, LEVO AT 0.02 MCG/KG/MIN RUNNING, MONITORED AND ADJUSTED PER PROTOCOL. ALSO HAS ON GOING TUBE FEEDING PRESCRIBED; TOLERATED WELL. PATIENT KEPT CLEAN AND COMFORTABLE WITHIN THE SHIFT. PATIENT ENDORSED TO INCOMING SHIFT RN WITH STABLE VITAL SIGN AND FOR CONTINUITY OF CARE.
--- NOTE | 2022-06-16 07:30 | NUR ---
RN OPEN NOTE FOUND WITH EYES CLOSED NO S/S OF DISTRESS V/S WNL PT CONTINUES TO BE 2L T PIECE. BEDSIDE MONITOR SHOW SINUS RHYTHM. DUENAS CATHETER PATENT DRAINING YELLOW FLUID. TUBE FEEDING AT 35 ML/H. HALLIE PICC PATENT AND RUNNING FLUID. LEVO RUNNING AT 0.2 NS@75, TKO. NO S/S OR RESPIRATORY DISTRESS. BED LOCKED HEAD OF BED AT 35 DEGREES
[2022-06-16] MEDS: PANTOPRAZOLE 40 MG/PACK PACK GT SCH (08:22)
[2022-06-16] MEDS: ENOXAPARIN SODIUM 40 MG/0.4 ML DISP.SYRIN SQ SCH (08:28)
[2022-06-16] MEDS: MUPIROCIN OINT 2% 22 GM TUBE NS SCH ×2 (08:31→17:10)
--- NOTE | 2022-06-16 11:00 | NUR ---
LEVO HELD FOR OFF LEVO TRIAL
[2022-06-16] MEDS ORDERED: NEUTRA PHOS 1 POWD.PACKET GT ONE (12:00)
[2022-06-16] MEDS: MEROPENEM 500 MG in IV NS 0.9% 100 ML IV SCH ×2 (13:14→20:55)
[2022-06-16] MEDS: DEXTROSE 50%-WATER 50 ML DISP.SYRIN IV PRN (17:33)
--- NOTE | 2022-06-16 17:46 | NUR ---
blood glucose check 55mg/dl D50 given will reassess in 1 hour
--- NOTE | 2022-06-16 19:30 | NUR ---
BEAUTY OPERATOR APPRENTICE NOTES RECEIVED PT IN BED, PATIENT OBTUNDED. OPEN BOTH EYES. ON 2L VIA T PIECE QND PT TOLERATED WELL. 02 SAT 100%. IV ACCESS ON RT HAND #22 AND HALLIE PICC INTACT AND PATENT. NO S/S OF INFILTRATIONS. NOT ON ANY DRIP AT THIS MOMENT. NS RUNNING AT 75CC/HR. ON GTUBE FEEDING TOLERATED WELL. NO FACIAL GRIMACING NOTED. DUENAS CATHETER IN PLACE. RUNNING BY GRAVITY. NOTED YELLOWISH/CLEAR URINE. NO ACUTE DISTRESS. ALL SAFETY MEASURES IN PLACE. HEAD OF BED ELEVATED. BED IN LOWEST POSITION AND LOCKED. SIDE RAILS UP X3. PLACE CALL LIGHT WITHIN REACH. WILL CONTINUE TO MONITOR
[2022-06-16] MEDS: ATORVASTATIN 40 MG TABLET GT SCH (21:10)
[2022-06-16] MEDS: TAMSULOSIN 0.4 MG CAP.SR.24H GT SCH (21:10)
[2022-06-16] MEDS: INSULIN GLARGINE, 100 UNIT/ML CARTRIDGE SQ SCH (22:49)
[2022-06-17] VITALS (52 sets, daily range): BP systolic 51–160; BP diastolic 22–78
--- NOTE | 2022-06-17 00:23 | NUR ---
RT NOTE PT PLACED ON COOL AEROSOL @ 28%. NO RESPIRATORY DISTRESS NOTED.
[2022-06-17] MEDS: VITAL AF 1.2 1,000 ML BOTTLE GT PRN ×2 (03:41→22:07)
[2022-06-17] MEDS: MEROPENEM 500 MG in IV NS 0.9% 100 ML IV SCH ×3 (04:51→21:22)
[2022-06-17] MEDS: HYDROCORTISONE SOD SUCCINATE 100 MG/2 ML VIAL IV SCH ×3 (04:52→21:22)
[2022-06-17] MEDS: BLOOD SUGAR DIAGNOSTIC 1 EACH STRIP IN SCH ×4 (06:08→23:32)
[2022-06-17] MEDS: DEXTROSE 50%-WATER 50 ML DISP.SYRIN IV PRN (06:09)
[2022-06-17] MEDS: VANCOMYCIN 500 MG in IV D5W 100 ML IV SCH (06:10)
--- NOTE | 2022-06-17 06:14 | NUR ---
RN NOTES: PT'S BLOOD SUGAR 47. 50% DEXTROSE GIVEN. WILL REASSESS 30 MIN LATER
--- NOTE | 2022-06-17 06:27 | NUR ---
ICU/RN: AM LABS NEEDED TO BE REDRAWN PER LAB.
--- NOTE | 2022-06-17 06:45 | NUR ---
RN NOTES: REASSESSED THE BLOOD SUGAR 140. NO S/S OF HYPER/HYPOGLYCEMIA. WILL CONTINUE TO MONITOR
--- NOTE | 2022-06-17 06:48 | NUR ---
FOOD SANITARIAN CLOSING NOTES PT IN BED, PATIENT OBTUNDED. OPEN BOTH EYES. ON 5L VIA COOL AEROSOL AT 28%. AND PT TOLERATED WELL. 02 SAT 99%. IV ACCESS ON RT HAND #22 AND HALLIE PICC INTACT AND PATENT. NO S/S OF INFILTRATIONS. NS RUNNING AT 75CC/HR. ON GTUBE FEEDING TOLERATED WELL. ON VITAL D5 AT 50CC/HR, GOAL IS 70CC/HR. NO FACIAL GRIMACING NOTED. NO ACUTE DISTRESS. DUENAS CATHETER IN PLACE. RUNNING BY GRAVITY. NOTED YELLOWISH/CLEAR URINE. ALL DUE MEDS GIVEN ORDERED. ALL SAFETY MEASURES IN PLACE. HEAD OF BED ELEVATED. BED IN LOWEST POSITION AND LOCKED. SIDE RAILS UP X3. PLACE CALL LIGHT WITHIN REACH. WILL ENDORSE TO MORNING SHIFT NURSE.
--- NOTE | 2022-06-17 07:13 | NUR ---
RN/ICU: RECEIVED JUST CLEANED AND CHANGED, PT ALERT WITH EYES OPEN AND OBTUNDED. ON T-PIECE 2L COOL AEROSOL. BEDSIDE MONITOR SHOWING SR-SINUS LATOYA LOW 51. DUENAS CATHETER PATENT AND DRAINING YELLOW URINE 400CC SPORTS PHOTOGRAPHER OUTPUT, TWO BM REPORTED. HALLIE PICC LINE AND 22G ON THE RIGHT FOREARM PATENT AND RUNNING FLUIDS NO S/S OF INFILTRATION OR IRRITATION. 0600 BG WAS 47 NURSE GAVE D50 RECHECK RED 140. LAYING ON PILLOWS AND REPOSITIONED BED IS LOCKED AND IN THE LOWEST PORTION HEAD OF BED ELEVATED 35 DEGREES. WAIT FOR LAB RESULTS
[2022-06-17 07:18] LABS: BASOPHILS % (AUTO) 0.1 % (0.0-2.0); HEMATOCRIT 28 % (39-51); HEMOGLOBIN 9.3 g/dL (13.5-17.5); LYMPHOCYTES # (AUTO) 0.4 K/uL (0.8-4.8); LYMPHOCYTES % (AUTO) 6.4 % (20.0-44.0); MEAN CORPUSCULAR HGB CONC 33 g/dl (31.0-36.0); MEAN CORPUSCULAR VOLUME 77 fL (80-96); MONOCYTES # (AUTO) 0.4 K/uL (0.1-1.30); MONOCYTES % (AUTO) 5.6 % (2.0-12.0); NEUTROPHILS # (AUTO) 5.7 K/uL (1.8-8.9); NEUTROPHILS % (AUTO) 87.9 % (43.0-81.0); PLATELET COUNT (AUTO) 265 K/uL (150-450); RED BLOOD CELL COUNT(AUTO) 3.66 MIL/uL (4.5-6.0); WHITE BLOOD COUNT (AUTO) 6.5 K/uL (4.3-11.0)
[2022-06-17 07:25] LABS: CREATININE 0.8 mg/dL (0.6-1.3); PHOSPHORUS 2.6 mg/dL (2.5-4.9)
[2022-06-17 07:30] LABS: POTASSIUM 2.8 mmol/L (3.5-5.1)
[2022-06-17] MEDS ORDERED: POTASSIUM CHLORIDE 20 MEQ POWDER PACKET GT ONE (08:30)
[2022-06-17] MEDS: PANTOPRAZOLE 40 MG/PACK PACK GT SCH (08:50)
[2022-06-17] MEDS: POTASSIUM CL. PREMIX PERIPHER. 50 ML IV SCH ×5 (08:50→14:34)
[2022-06-17] MEDS: MUPIROCIN OINT 2% 22 GM TUBE NS SCH ×2 (08:50→17:31)
[2022-06-17] MEDS: ENOXAPARIN SODIUM 40 MG/0.4 ML DISP.SYRIN SQ SCH (08:53)
--- NOTE | 2022-06-17 12:30 | NUR ---
telemarketing agent note received report from icu nurse. patient is nonverbal and obtunded. patient is sinus bradycardia and sinus rhythm on tele monitor. patient is on gtube. patent. patient has right upper arm picc line and left hand 22 guage. iv patent and flushes well. patient is on normal saline at 75 cc/hr. patient is on room air tolerating well at 100%.will continue to assess throughout shift
--- NOTE | 2022-06-17 15:30 | NUR ---
family at bedside
[2022-06-17] MEDS ORDERED: BENEFIBER 4 GM 1 EA PACKET GT SCH (17:00)
[2022-06-17] MEDS: PSYLLIUM SEED 1 PKT PACKET PO SCH (17:00)
--- NOTE | 2022-06-17 19:26 | NUR ---
telegraphic typewriter mechanic closing note patient is nonverbal and obtunded. patient has tpiece and on cool aersol. patient is sinus bradycardia and sinus rhythm on tele monitor. patient is on gtube. gtube patent. patient has right upper arm picc line and left hand 22 gauge. iv patent and flushes well. patient is on normal saline at 75 cc/hr. patient is on room air tolerating well at 100%.all safety measures in place. call light within reach. bed locked at lowest position. side rails x2. bedside table next to patient/ will endorse to operations supervisor 2nd shift rn
--- NOTE | 2022-06-17 20:00 | NUR ---
MI RN NOTE PT IN BED OBTUNDED. ON TPC O2 5L 28% FIO2. NO DISTRESS OR DISCOMFORT NOTED. NO S/S OF PAIN NOTED. F/C INTACT AND PATENT DRAINING YELLOWISH COLOR URINE. GTF VITAL AF1.2 INFUSING AT 70 ML/HR, 0 ML RESIDUAL NOTED. IVF NS INFUSING AT 75 ML/HR, NO S/S OF INFILTRATION NOTED. HALLIE PICC LINE AND RFA #22 G SL INTACT AND PATENT. KEPT HIM DRY AND CLEAN. ALL NEEDS ATTENDED. VSS. CONTINUE TO MONITOR HIM.
--- NOTE | 2022-06-17 20:45 | NUR ---
RT NOTE PT TRANSFERRED TO 116-2 W NO COMPLICATIONS. PT SXD AND PLACED ON CA 28%. NO RESP DISTRESS NOTED @ THIS TIME. RN AWARE.
[2022-06-17] MEDS: ATORVASTATIN 40 MG TABLET GT SCH (21:22)
[2022-06-17] MEDS: TAMSULOSIN 0.4 MG CAP.SR.24H GT SCH (21:22)
[2022-06-17] MEDS: INSULIN GLARGINE, 100 UNIT/ML CARTRIDGE SQ SCH (23:32)
[2022-06-18] VITALS: BP 120/58
[2022-06-18] MEDS: IV NS 0.9% 1,000 ML IV PRN (01:50)
[2022-06-18 04:00] VITALS: BP 125/94
[2022-06-18] MEDS: HYDROCORTISONE SOD SUCCINATE 100 MG/2 ML VIAL IV SCH ×3 (05:54→21:19)
[2022-06-18] MEDS: MEROPENEM 500 MG in IV NS 0.9% 100 ML IV SCH ×3 (05:54→21:19)
[2022-06-18] MEDS: BLOOD SUGAR DIAGNOSTIC 1 EACH STRIP IN SCH ×3 (05:54→17:53)
--- NOTE | 2022-06-18 06:55 | NUR ---
MI RN NOTE PT IN BED OBTUNDED. NO DISTRESS OR DISCOMFORT NOTED. NO S/S OF PAIN NOTED. GTF AND IVF INFUSING WELL, KEPT HIM DRY AND CLEAN. HOB ELEVATED. SIDE RAILS UP X 2 AND CALL LIGHT WITHIN REACH. WILL ENDORSE TO DAY SHIFT NURSE
--- NOTE | 2022-06-18 07:37 | NUR ---
MI RN NOTE PT IN BED OBTUNDED. ON TPC O2 5L 28% FIO2. NO DISTRESS OR DISCOMFORT NOTED. NO S/S OF PAIN NOTED. F/C INTACT AND PATENT DRAINING YELLOWISH COLOR URINE. GTF VITAL AF1.2 INFUSING AT 70 ML/HR, 0 ML RESIDUAL NOTED. IVF NS INFUSING AT 75 ML/HR, NO RESUDUAL NOTED NO S/S OF INFILTRATION NOTED. HALLIE MID LINE LINE AND RFA #22 G SL INTACT AND PATENT. KEPT HIM DRY AND CLEAN. ALL NEEDS ATTENDED , SR HR 70 ON TELE MONITOR ,BED IN LOWEST AND LOCKED POSITION,
[2022-06-18 08:00] VITALS: BP 140/59
[2022-06-18] MEDS: PANTOPRAZOLE 40 MG/PACK PACK GT SCH (08:43)
[2022-06-18] MEDS: PSYLLIUM SEED 1 PKT PACKET PO SCH ×2 (08:43→16:25)
[2022-06-18] MEDS: ENOXAPARIN SODIUM 40 MG/0.4 ML DISP.SYRIN SQ SCH (08:44)
[2022-06-18] MEDS: MUPIROCIN OINT 2% 22 GM TUBE NS SCH ×2 (08:48→16:25)
--- NOTE | 2022-06-18 10:30 | NUR ---
rikki rn note turn reposition ,keep clean dry, family at bedside will cont to monitor
[2022-06-18 12:00] VITALS: BP 127/64
[2022-06-18] MEDS: INSULIN REGULAR, HUMAN 100 UNIT/ML 3 ML VIAL SQ PRN ×2 (12:37→17:50)
[2022-06-18 16:05] VITALS: BP 110/67
[2022-06-18] MEDS: VITAL AF 1.2 1,000 ML BOTTLE GT PRN (16:26)
[2022-06-18 17:16] LABS: CALCIUM, SERUM 7.3 mg/dL (8.5-10.1); CARBON DIOXIDE 31 mmol/L (21-32); CHLORIDE 109 mmol/L (98-107); CREATININE 0.7 mg/dL (0.6-1.3); GLUCOSE 136 mg/dL (74-106); SODIUM SERUM 144 mmol/L (136-145); UREA NITROGEN, BLOOD 19 mg/dL (7-18)
[2022-06-18 17:19] LABS: POTASSIUM 2.5 mmol/L (3.5-5.1)
[2022-06-18] MEDS ORDERED: POTASSIUM CHLORIDE 20 MEQ POWDER PACKET GT ONE (17:30)
[2022-06-18] MEDS ORDERED: POTASSIUM CL. PREMIX PERIPHER. 50 ML IV SCH (17:30)
--- NOTE | 2022-06-18 17:33 | NUR ---
DESIGN TEACHER NOTE RECEIVED CALL FROM LAB K 2.[address] SANDOVAL ORDERED POTASSIUM 20 MG IVPB ORDER CARRIED OUT
[2022-06-18] MEDS ORDERED: NUT.237L65 GT (17:56)
[2022-06-18] MEDS ORDERED: HYDR100V6 IV (17:56)
[2022-06-18] MEDS ORDERED: MERO500V23 IV (17:56)
--- NOTE | 2022-06-18 17:58 | NUR ---
BEHAVIORAL ANALYST NOTE on i CHARLINE COOL RN DNP AWARE THAT K 2.5 ORDERED 80 MEQ POTASSIUM A G TUBE D\C IV POTASSIUM
--- NOTE | 2022-06-18 18:35 | NUR ---
PERCH MACHINE INSPECTOR NOTE PER CHARLINE COOL DNP OK TO D\S TO SUB ACUTE, SOCIOCULTURAL ANTHROPOLOGY PROFESSOR AWARE STATED LATTER LINK
--- NOTE | 2022-06-18 19:10 | NUR ---
RN NOTES RECEIVED TRACH PT FOR CONTINUITY OF CARE. PATIENT OBTUNDED,IN NO S/SX OF ACUTE DISTRESS AT THIS TIME; CURRENTLY ON 5L OF O2 VIA T PIECE, WITH 02 SAT >95% AT THIS TIME. WITH IV ACCESS : R UA PICC LINE AND R FA#22 BOTH PATENT INTACT AND FLUSHING WELL. RECEIVED PT NS@75CC/HR WITH GTUBE FEEDING RUNNING PRESCRIBED (VITAL AF 1.2@70MLS/HR). WILL ENSURE SAFETY MEASURES WITHIN THE SHIFT. PATIENT BED ALARM IS ON. HEAD OF BED ELEVATED. BED IS LOCKED, IN LOWEST POSITION AND SIDE RAILS UP. CALL LIGHT WITHIN REACH OF THE PATIENT. WILL CONTINUE TO MONITOR AND REASSESS FOR ANY CHANGES AND WILL CARRY OUT ANY ONGOING AND ACTIVE MD ORDER.
[2022-06-18 20:00] VITALS: BP 144/84
[2022-06-18] MEDS: TAMSULOSIN 0.4 MG CAP.SR.24H GT SCH (21:19)
[2022-06-18] MEDS: ATORVASTATIN 40 MG TABLET GT SCH (21:19)
--- NOTE | 2022-06-18 21:35 | NUR ---
RN NOTES ACCU CHECK DONE; 115MG/DL. LANTUS TO BE GIVEN 15U ORDERED.
[2022-06-18] MEDS: INSULIN GLARGINE, 100 UNIT/ML CARTRIDGE SQ SCH (21:38)
--- NOTE | 2022-06-18 22:25 | NUR ---
RN NOTES CALLED SUBACUTE UNIT AND SPOKE WITH CHIKI PAUL PROVIDED ENDORSEMENT/TRANSFER REPORT REGARDING PT; ALL PERTINENT INFO PROVIDED. PT WILL BE TRANSFERRED TO RM 273. AGING ROOM HAND MADE AWARE.
--- NOTE | 2022-06-18 23:20 | NUR ---
RT NOTE PT TRANSFERRED TO SUBACUTE VIA T-PIECE @ 2LPM. NO RESPIRATORY DISTRESS NOTED. SUCTION DONE, TRACH SECURED AND PATENT.
--- NOTE | 2022-06-18 23:20 | NUR ---
CHIKI NOTES PT TRANSFERRED TO SUBACUTE #723 CHIKI PAUL RECEIVED PT IN STABLE CONDITION; V/S WNL, MEDICATIONS AND CHART PROVIDED TO RN, SPANNER OPERATOR MADE WELL AWARE. Addendum: 06/18/22 at 2331 by CHESTER COOPER RN [facility]
== END 2022-06-18 23:15 | DRG 871 ==
LOC: ICU 19:20 → TELE-TD 06-17 12:28
PROVIDERS: ADMIT Internal Medicine; ATTEND Nurse Practitioner Acute Care
PROC: 02HV33Z Insertion of Infusion Device into Superior Vena Cava, Percutaneous Approach (ICD-10-PCS; principal; 2022-06-10)
PROC: B548ZZA Ultrasonography of Superior Vena Cava, Guidance (ICD-10-PCS; 2022-06-10)
DX: A41.50 Gram-negative sepsis, unspecified (principal); J96.21 Acute and chronic respiratory failure with hypoxia; L89.153 Pressure ulcer of sacral region, stage 3; N17.0 Acute kidney failure with tubular necrosis; J95.851 Ventilator associated pneumonia; E44.0 Moderate protein-calorie malnutrition; E87.1 Hypo-osmolality and hyponatremia; N39.0 Urinary tract infection, site not specified; E27.40 Unspecified adrenocortical insufficiency; Z99.11 Dependence on respirator [ventilator] status; G93.40 Encephalopathy, unspecified; E87.0 Hyperosmolality and hypernatremia; R65.20 Severe sepsis without septic shock; E86.0 Dehydration; Z93.1 Gastrostomy status; Z93.0 Tracheostomy status; F02.80 Dementia in other diseases classified elsewhere, unspecified severity, without behavioral disturbance, psychotic disturbance, mood disturbance, and anxiety; G30.9 Alzheimer's disease, unspecified; E11.36 Type 2 diabetes mellitus with diabetic cataract; E88.09 Other disorders of plasma-protein metabolism, not elsewhere classified; N40.0 Benign prostatic hyperplasia without lower urinary tract symptoms; F32.A Depression, unspecified; F29 Unspecified psychosis not due to a substance or known physiological condition; Z79.01 Long term (current) use of anticoagulants; Z79.51 Long term (current) use of inhaled steroids; Z79.4 Long term (current) use of insulin; Z79.899 Other long term (current) drug therapy; D63.8 Anemia in other chronic diseases classified elsewhere; E78.5 Hyperlipidemia, unspecified; E87.6 Hypokalemia; E11.22 Type 2 diabetes mellitus with diabetic chronic kidney disease; I12.9 Hypertensive chronic kidney disease with stage 1 through stage 4 chronic kidney disease, or unspecified chronic kidney disease; N18.9 Chronic kidney disease, unspecified; E83.39 Other disorders of phosphorus metabolism; Z86.16 Personal history of COVID-19; R13.10 Dysphagia, unspecified; E66.01 Morbid (severe) obesity due to excess calories; E86.1 Hypovolemia; K21.9 Gastro-esophageal reflux disease without esophagitis; B96.89 Other specified bacterial agents as the cause of diseases classified elsewhere; R19.7 Diarrhea, unspecified; Y84.8 Other medical procedures as the cause of abnormal reaction of the patient, or of later complication, without mention of misadventure at the time of the procedure; Y82.8 Other medical devices associated with adverse incidents; Y92.129 Unspecified place in nursing home as the place of occurrence of the external cause
CPT/HCPCS: 31720; 36415; 36600; 71045-TC; 80048-TC; 80053-TC; 80202-TC; 82010-TC; 82248-TC; 82533; 82803-TC; 82962-TC; 83605-TC; 83735-TC; 84100-TC; 85025-TC; 87040-TC; 87081-TC; 87186-TC; 94002-TC; 94003-TC; 94640-TC; 94760-TC; 94762-TC; 94799-TC; 99082-TC; A4623; A6248; G0378; J1100; J1650; J1720; J1815; J2185; J3370; J3480; J3490; J7030; J7042; J7050; J7060; J7070; U0003

== ENCOUNTER 2022-06-19 00:14 | Inpatient (IN) | payer MEDICARE, MEDICAID ==
--- NOTE | 2022-06-18 23:23 | NUR ---
RT NOTE: Pt rec'd trached on CA 28% fio2. No SOB noted at this time. Trach is patent and secured. Pt sx'd at this time. AMBU bag and spare trach at bedside. Will continue to monitor closely.
[~2022-06-19] VITALS: Ht 177.8 cm; Wt 48.5 kg
[~2022-06-19 00:14] MED LIST changes: -ACET-2605 PO; -ACET-868 PO; +ACID1TAB12 GT; +AMIN30LI2 GT; +ASCO-340 GT; -ASCO-352 PO; +ASPI-1169 GT; -ASPI-605 PO; +BENEFIBER GT; +BISA10SU11 RC; -CALC-883 PO; -CLOT15CR27 TP; -CRAN3875 PO; -CRAN425C6 PO; -DEXA4TAB PO; -DEXA4VIA17 IV; -DOCU-141 PO; -FERR325T23 PO; +FERR325T24 GT; -HEPA50008 SQ; +HYDR100V6 IV; +HYDR1SOL TP; -HYDR28.32 TP; -INSU100V39 SQ; -INSU100V7 SQ; -LINA5TAB PO; -MAGN400O6 PO; +MELA3TAB41 GT; +MERO500V23 IV; -METR45CR2 TP; -MULT-439 PO; -NUT.237L30 GT; +NUT.237L65 GT; -NYST15PO4 TP; +ONDA4TAB11 GT; -PANT40TA2 PO; +PETR113O TP; +POLY15DR40 EACHEYE; +POTA20PA3 GT; -PRAV40TA3 PO; -TYL2T PO; +ZINC50TA69 GT; +[UNRECOGNIZED DRUG - CODE] IV
--- NOTE | 2022-06-19 00:15 | NUR ---
RN NOTES Admitted from [place], under the care of Kalpana Squires Dx: Acute hypoxemic respiratory failure, tracheostomy,vent dependent, gt placement, Recent Covid-19, toxic metabolic encephalopathy, HTN, dyslipidemia, BPH, DM, anemia of chronic disease, Hx of Alzheimer's dementia, hypotension, hyperlipidemia, septic shock. All orders reviewed and verified. On Cool aerosol 28% fiO2. Routine body assessment done. Right upper arm PICC Line, patent and intact. On Merrem 500mg IV Q8hr, for sepsis. On IV hydration 1/2 NS @ 70ml/hr. F/C in place, draining clear yellow urine. Routine body assessment done. Pt in stable condition. Will continue to monitor.
[2022-06-19] MEDS ORDERED: DEXTROSE 50%-WATER 50 ML DISP.SYRIN ONE ×3 (07:00→23:24)
[2022-06-19] MEDS ORDERED: POLYETHYLENE GLYCOL 3350 17 GM POWD.PACK GT PRN (07:30)
[2022-06-19] MEDS ORDERED: CLONIDINE HCL 0.1 MG TABLET GT PRN (07:30)
[2022-06-19] MEDS ORDERED: ONDANSETRON 4 MG TAB.RAPDIS GT PRN (07:30)
[2022-06-19 07:34] VITALS: BP 119/68
[2022-06-19] MEDS ORDERED: ACETAMINOPHEN 650 MG/20 ML UDC- SA PATIENTS-FEVER ONLY GT PRN (08:00)
[2022-06-19] MEDS ORDERED: IV 1/2NS 1000 ML 1,000 ML IV PRN (08:00)
[2022-06-19] MEDS ORDERED: ACETAMINOPHEN 650 MG/20 ML UDC- SA PATIENTS-PAIN ONLY GT PRN (08:00)
[2022-06-19] MEDS ORDERED: BISACODYL SUPP (10 MG) 10 MG/SUPP.RECT SUPP.RECT RC PRN (08:00)
--- NOTE | 2022-06-19 08:58 | NUR ---
RT Received pt trached on Cool Aerosol 28% fio2. No SOB noted at this time. Trach is patent and secured. Pt is suctioned at this time. AMBU bag and spare trach at bedside. Will continue to monitor closely.
[2022-06-19] MEDS: FERROUS SULFATE (325 MG) 325 MG/TAB TABLET GT SCH (09:00)
[2022-06-19] MEDS: ASPIRIN 81 MG TAB.CHEW GT SCH (09:00)
[2022-06-19] MEDS: VITAMINS A AND D 56.7 GM TUBE TP SCH ×4 (09:00→21:45)
[2022-06-19] MEDS: BENEFIBER 4 GM 1 EA PACKET GT SCH ×3 (09:00→17:00)
[2022-06-19] MEDS ORDERED: HYDROCORTISONE SOD SUCCINATE 100 MG/2 ML VIAL IV SCH ×2 (09:00→21:00)
[2022-06-19] MEDS: ACIDOPHILUS/BULGARICUS 1 EACH TAB.CHEW GT SCH ×2 (09:00→17:00)
[2022-06-19] MEDS: ENOXAPARIN SODIUM 40 MG/0.4 ML DISP.SYRIN SQ SCH (09:00)
[2022-06-19] MEDS: ASCORBIC ACID 500 MG TABLET GT SCH (09:00)
[2022-06-19] MEDS: ZINC SULFATE 220 MG CAPSULE GT SCH (09:00)
[2022-06-19] MEDS: PANTOPRAZOLE 40 MG/PACK PACK GT SCH (09:00)
[2022-06-19] MEDS: POTASSIUM CHLORIDE 20 MEQ POWDER PACKET GT SCH (09:00)
[2022-06-19] MEDS: PROSOURCE / PROSTAT (PYXIS) 30 ML UDC GT SCH ×2 (09:00→17:00)
[2022-06-19] MEDS: INSULIN REGULAR, HUMAN 100 UNIT/ML 3 ML VIAL SQ SCH ×2 (12:00→18:00)
[2022-06-19] MEDS: BLOOD SUGAR DIAGNOSTIC 1 EACH STRIP IN SCH ×3 (12:00→23:27)
[2022-06-19] MEDS: POLYVINYL ALCOHOL 15 ML BOTTLE EACHEYE SCH ×3 (12:00→23:38)
--- NOTE | 2022-06-19 12:00 | NUR ---
Dr. Colón seen and examined patient with order to DC current dose of Solu-cortef 100 mg. IV Q 8, and changed it to 50mg. Q 8 hours. Orders carried out.
[2022-06-19] MEDS: MEROPENEM 1 G in IV NS 0.9% 100 ML IV SCH ×2 (12:18→21:00)
[2022-06-19 12:25] LABS: CALCIUM, SERUM 7.4 mg/dL (8.5-10.1); CARBON DIOXIDE 33 mmol/L (21-32); CHLORIDE 109 mmol/L (98-107); CREATININE 0.8 mg/dL (0.6-1.3); GLUCOSE 110 mg/dL (74-106); POTASSIUM 3.4 mmol/L (3.5-5.1); SODIUM SERUM 144 mmol/L (136-145); UREA NITROGEN, BLOOD 18 mg/dL (7-18)
--- NOTE | 2022-06-19 12:54 | NUR ---
Seen ad examined by Dr. Mack, clarified some of the admission orders. He ordered to give Solu-cortef with the current dose of 50 mg Q 8 for 24 hours then change it to Q 12 hours. MD decreased Lantus insulin from 14 units to 7 units Q HS due to BS of [address] Mack said he wants to start patient with Creon per pharmacy dosing but since Creon is not available in [facility] pharmacy they recommended Pancreaze 4200 units, 2 capsule Q 8 hours. MD in agreement. Milk Wagon Driver made aware of MD's request to evaluate patient's fluid intake that can be given via GT before discontinuing IVF. Spoke with trimmer machine saying she will review and make her recommendation.
[2022-06-19] MEDS: VITAL AF 1.2 1,000 ML BOTTLE NG PRN (13:07)
[2022-06-19 13:37] VITALS: BP 121/59
[2022-06-19] MEDS: INSULIN REGULAR, HUMAN 100 UNIT/ML 3 ML VIAL SQ PRN (18:39)
--- NOTE | 2022-06-19 19:05 | NUR ---
Notified Dr. Mack that patient's 1800 BS is 44 and has 3 loose BM with the same color as the patient's tube feeding formula. D 50 IV given as ordered, will recheck after an hour. Informed MD that Pancreaze via GT will start tonight and ordered to hold Lantus. Endorsed.
[2022-06-19] MEDS ORDERED: HYDROCORTISONE SOD SUCCINATE 100 MG/2 ML VIAL IV ONE (19:09)
[2022-06-19] MEDS ORDERED: LIPASE/PROTEASE/AMYLASE 1 EACH CAPSULE.DR PO ONE (19:09)
[2022-06-19 19:52] VITALS: BP 145/68
--- NOTE | 2022-06-19 20:17 | NUR ---
RT NOTE NO ORDERS FOR ALBUTEROL ON [place]. GIVEN TX DUE TO WHEEZING AND SLIGHT SOB ON ASSESSMENT. SPO2 98% BEFORE TX. CHIKI BOLIVAR AWARE AND TX WAS GIVEN. Addendum: 06/19/22 at 2019 by Vishnu Lehman RT Amended: Links added.
[2022-06-19] MEDS: HYDROCORTISONE SOD SUCCINATE 100 MG/2 ML VIAL IV SCH (21:00)
[2022-06-19] MEDS: LIPASE/PROTEASE/AMYLASE 1 EACH CAPSULE.DR GT SCH (21:45)
[2022-06-19] MEDS ORDERED: INSULIN GLARGINE, 100 UNIT/ML CARTRIDGE SQ SCH (22:00)
[2022-06-19] MEDS: TAMSULOSIN 0.4 MG CAP.SR.24H GT SCH (22:04)
[2022-06-19] MEDS: ATORVASTATIN 40 MG TABLET GT SCH (22:04)
[2022-06-19] MEDS: MELATONIN 3 MG TABLET GT SCH (22:04)
[2022-06-19] MEDS: DEXTROSE 50%-WATER 50 ML DISP.SYRIN IVP PRN (23:37)
--- NOTE | 2022-06-19 23:48 | NUR ---
Patient BS 53mg\dl BP 103\53 HR 60 O2 sats 99%. D50 given Iv as ordered,patient awake. Will re check after 1 hour. Will continue to monitor.
--- NOTE | 2022-06-20 00:17 | NUR ---
BS 137mg\dl
[2022-06-20] MEDS: ALBUTEROL FS 2.5 MG/3 ML VIAL.NEB NEB SCH ×4 (00:49→20:19)
[2022-06-20] MEDS ORDERED: HYDROCORTISONE SOD SUCCINATE 100 MG/2 ML VIAL ONE (05:02)
[2022-06-20] MEDS: VITAMINS A AND D 56.7 GM TUBE TP SCH ×4 (09:00→21:24)
[2022-06-20] MEDS: ACIDOPHILUS/BULGARICUS 1 EACH TAB.CHEW GT SCH ×2 (09:00→17:28)
[2022-06-20] MEDS: ASCORBIC ACID 500 MG TABLET GT SCH (09:00)
[2022-06-20] MEDS: ASPIRIN 81 MG TAB.CHEW GT SCH (09:00)
[2022-06-20] MEDS: ZINC SULFATE 220 MG CAPSULE GT SCH (09:00)
[2022-06-20] MEDS: ENOXAPARIN SODIUM 40 MG/0.4 ML DISP.SYRIN SQ SCH (09:00)
[2022-06-20] MEDS: POTASSIUM CHLORIDE 20 MEQ POWDER PACKET GT SCH (09:00)
[2022-06-20] MEDS: PROSOURCE / PROSTAT (PYXIS) 30 ML UDC GT SCH ×2 (09:00→17:28)
[2022-06-20] MEDS: FERROUS SULFATE (325 MG) 325 MG/TAB TABLET GT SCH (09:00)
[2022-06-20 09:22] VITALS: BP 90/52
[2022-06-20] MEDS: BENEFIBER 4 GM 1 EA PACKET GT SCH ×3 (10:07→17:27)
[2022-06-20 11:41] VITALS: BP 133/50
[2022-06-20] MEDS: IV D5/ 0.9% NACL 1,000 ML IV PRN (11:53)
[2022-06-20] MEDS: BLOOD SUGAR DIAGNOSTIC 1 EACH STRIP IN SCH ×2 (12:00→17:47)
[2022-06-20] MEDS: INSULIN REGULAR, HUMAN 100 UNIT/ML 3 ML VIAL SQ SCH ×2 (12:00→17:50)
[2022-06-20] MEDS: POLYVINYL ALCOHOL 15 ML BOTTLE EACHEYE SCH ×2 (12:00→17:28)
--- NOTE | 2022-06-20 12:13 | NUR ---
Asked Dr Colón regarding duration of Solu Cortef. He said he will titrate the dose next week, no stop date yet.
[2022-06-20 12:35] VITALS: BP 129/69
[2022-06-20] MEDS: LIPASE/PROTEASE/AMYLASE 1 EACH CAPSULE.DR GT SCH ×2 (13:00→21:24)
[2022-06-20] MEDS: MEROPENEM 1 G in IV NS 0.9% 100 ML IV SCH ×2 (13:24→21:12)
--- NOTE | 2022-06-20 13:35 | NUR ---
Seen by RETAIL DISTRICT MANAGER Reshma Christine via telemedicine. Informed her that pt's blood sugars have been low and pt was given D50 twice since yesterday. Also informed her of lab results from yesterday. She asked if potassium was replaced and informed her that it was not replaced. She ordered to DC 1/2 NS and change to D5NS at 70 mL/hr IV for hydration and do labs in AM.
[2022-06-20] MEDS: HYDROCORTISONE SOD SUCCINATE 100 MG/2 ML VIAL IV SCH ×2 (14:05→21:12)
[2022-06-20 17:20] VITALS: BP 127/72
--- NOTE | 2022-06-20 17:28 | NUR ---
RT Pt received on CA @ 28% (5LPM). Pt is mina. current resp orders w/ no SOB or resp distress noted. Tx mina. well, no adverse reactions noted. Trach is midline, airway is patent/secured. Ambu/Trach available at bedside.
[2022-06-20 20:00] VITALS: BP 113/52
[2022-06-20] MEDS: TAMSULOSIN 0.4 MG CAP.SR.24H GT SCH (21:24)
[2022-06-20] MEDS: MELATONIN 3 MG TABLET GT SCH (21:24)
[2022-06-20] MEDS: ATORVASTATIN 40 MG TABLET GT SCH (21:24)
[2022-06-21] MEDS: POLYVINYL ALCOHOL 15 ML BOTTLE EACHEYE SCH ×5 (00:02→23:57)
[2022-06-21] MEDS: BLOOD SUGAR DIAGNOSTIC 1 EACH STRIP IN SCH ×5 (00:02→23:57)
[2022-06-21] MEDS: VITAL AF 1.2 1,000 ML BOTTLE NG PRN ×2 (00:08→17:36)
[2022-06-21 00:14] VITALS: BP 118/61
[2022-06-21] MEDS: IV D5/ 0.9% NACL 1,000 ML IV PRN (01:50)
[2022-06-21] MEDS: ALBUTEROL FS 2.5 MG/3 ML VIAL.NEB NEB SCH ×4 (02:17→18:48)
--- NOTE | 2022-06-21 03:49 | NUR ---
RT PT RECVD AWAKE ON 28% CA VIA T-BAR, TRACH IS PATENT AND SECURED. SUCTION DONE PRN, NEB TX GIVEN AND KAILEE WELL. TRACH CARE DONE, NO SOB OR RESPIRATORY DISTRESS NOTED AT THIS TIME. AMBU BAG AND SPARE TRACH AT BEDSIDE. SPO2 >92%.
[2022-06-21] MEDS: MEROPENEM 1 G in IV NS 0.9% 100 ML IV SCH ×3 (05:00→20:53)
[2022-06-21] MEDS: LIPASE/PROTEASE/AMYLASE 1 EACH CAPSULE.DR GT SCH ×3 (05:36→20:32)
[2022-06-21] MEDS: PANTOPRAZOLE 40 MG/PACK PACK GT SCH (05:36)
[2022-06-21] MEDS: INSULIN REGULAR, HUMAN 100 UNIT/ML 3 ML VIAL SQ SCH ×3 (05:37→17:41)
[2022-06-21 06:54] LABS: BASOPHILS % (AUTO) 0.3 % (0.0-2.0); HEMATOCRIT 34 % (39-51); HEMOGLOBIN 11.1 g/dL (13.5-17.5); LYMPHOCYTES # (AUTO) 0.7 K/uL (0.8-4.8); LYMPHOCYTES % (AUTO) 12.6 % (20.0-44.0); MEAN CORPUSCULAR HGB CONC 33 g/dl (31.0-36.0); MEAN CORPUSCULAR VOLUME 79 fL (80-96); MONOCYTES # (AUTO) 0.4 K/uL (0.1-1.30); MONOCYTES % (AUTO) 6.6 % (2.0-12.0); NEUTROPHILS # (AUTO) 4.5 K/uL (1.8-8.9); NEUTROPHILS % (AUTO) 80.5 % (43.0-81.0); PLATELET COUNT (AUTO) 423 K/uL (150-450); RED BLOOD CELL COUNT(AUTO) 4.31 MIL/uL (4.5-6.0); WHITE BLOOD COUNT (AUTO) 5.6 K/uL (4.3-11.0)
[2022-06-21 07:10] LABS: CREATININE 1.2 mg/dL (0.6-1.3)
[2022-06-21 07:29] LABS: POTASSIUM 2.1 mmol/L (3.5-5.1)
--- NOTE | 2022-06-21 07:40 | NUR ---
Relayed BMP and CBC result to Dr. Mack with K+ 2.1, Patient receiving daily K+ supplement 20 meq via GT, new order given to give additional KCL 80 meq via GT and repeat BMP in PM. Orders carried out.
[2022-06-21 07:43] VITALS: BP 126/66
--- NOTE | 2022-06-21 08:15 | NUR ---
Dr. Mack met with Rosaline, patient's to address her concerns.
[2022-06-21] MEDS ORDERED: POTASSIUM CHLORIDE 20 MEQ POWDER PACKET PO ONE (09:00)
--- NOTE | 2022-06-21 09:00 | NUR ---
INTAKE PAPERWORK: PIERRE called and spoke with the patients , Rosaline Brito [phone] over the phone and reviewed intake paperwork: (Patient Right's Acknowledgement, Documentation of Preferred Intensity of Care, Conditions of Admission, CDPH Agreement, and Voluntary Prior Express Consent form and An Important Message from Medicare). Rosaline stated she would like the pt. to remain Full Code: Maximum Treatment and CPR. PIERRE provided patient's family with a copy of the Bill of Rights, & patient information guide. The admission paperwork was placed into the resident's chart and Rosaline stated she will visit pt. on 06/23/2022 and sign paperwork. PIERRE educated Rosaline regarding Conservatorship and provided educational material. Rosaline stated she is not interested to file for conservatorship at this time.
--- NOTE | 2022-06-21 09:40 | NUR ---
Requested Dr. Mack to evaluate patient's IVF, currently on D5NS at 70 cc/hr. noted BS is rising, Glucose 308. Continue to monitor BS Q 6 with insulin coverage per sliding scale.
[2022-06-21] MEDS: ASPIRIN 81 MG TAB.CHEW GT SCH (09:53)
[2022-06-21] MEDS: BENEFIBER 4 GM 1 EA PACKET GT SCH ×3 (09:53→17:34)
[2022-06-21] MEDS: FERROUS SULFATE (325 MG) 325 MG/TAB TABLET GT SCH (09:54)
[2022-06-21] MEDS: ACIDOPHILUS/BULGARICUS 1 EACH TAB.CHEW GT SCH ×2 (09:54→17:34)
[2022-06-21] MEDS: POTASSIUM CHLORIDE 20 MEQ POWDER PACKET GT SCH (09:54)
[2022-06-21] MEDS: VITAMINS A AND D 56.7 GM TUBE TP SCH ×4 (09:55→20:32)
[2022-06-21] MEDS: ENOXAPARIN SODIUM 40 MG/0.4 ML DISP.SYRIN SQ SCH (09:55)
[2022-06-21] MEDS: PROSOURCE / PROSTAT (PYXIS) 30 ML UDC GT SCH ×2 (09:55→17:34)
[2022-06-21] MEDS: ASCORBIC ACID 500 MG TABLET GT SCH (09:55)
[2022-06-21] MEDS: ZINC SULFATE 220 MG CAPSULE GT SCH (09:55)
[2022-06-21] MEDS: HYDROCORTISONE SOD SUCCINATE 100 MG/2 ML VIAL IV SCH ×2 (09:59→20:53)
[2022-06-21 12:01] VITALS: BP 95/62
--- NOTE | 2022-06-21 13:30 | NUR ---
Dr. Colón gave an order to decrease Solu-Cortef to daily starting tomorrow and will reassess. He is also in agreement with dietary recommendation to decrease GT flushing to 200 ml Q 6 hours as patient is getting about 4800 ml of fluid daily (tube feeding, IVF and GT water flushing) Computer Information Science Professor recommending to cut down the fluids given via GT and continue with IVF to maintain his blood sugar.
[2022-06-21 13:35] LABS: CALCIUM, SERUM 7.1 mg/dL (8.5-10.1); CREATININE 0.9 mg/dL (0.6-1.3)
[2022-06-21 14:22] LABS: POTASSIUM 2.2 mmol/L (3.5-5.1)
--- NOTE | 2022-06-21 14:30 | NUR ---
seen BMP result collected this afternoon after total KCL 100meq via GT given. K+ went up slightly at 2.2. from 2.1. Dr. Carroll changed IVF to D51/2 NS due to elevated Na+ 149, and repeat BMP in AM. Dietary consult was ordered to evaluate potassium content in the feeding. Gail, dictaphone transcriber notified.
--- NOTE | 2022-06-21 14:48 | NUR ---
INTERDISCIPLINARY PLAN OF CARE CONFERENCE took place today. The patients , Rosaline Brito [phone] Colón and Interdisciplinary team discussed the plan of care in detail. Current orders as well as treatments and medications were reviewed.
[2022-06-21] MEDS ORDERED: POTASSIUM CL. PREMIX PERIPHER. 50 ML IV SCH (15:00)
--- NOTE | 2022-06-21 15:33 | NUR ---
Facility Update: PIERRE notified patient's , Rosaline via email : "Facility Update: Please note that a Sub-Acute employee has tested positive for COVID-19 yesterday and another employee tested positive today. [facility] continues following [facility] infection control guidelines. Staff and patients will continue response testing and being screened for symptoms.All visitation Guidelines remain the same". PIERRE attached visitation guidelines on email. Addendum: 06/25/22 at 1211 by NATE JAY Correction: PIERRE notified family of the following: "Facility Update:Please note that NO Sub-Acute employee has tested positive for COVID-19 this week. [facility]OH continues following [facility] infection control guidelines. Staff and patients will continue response testing and being screened for symptoms. All visitation Guidelines remain the same. Please see attached visitation guidelines attached on this email."
--- NOTE | 2022-06-21 15:54 | NUR ---
Updated Dr. Mack of BMP result and the orders given by Dr. Carroll, research quality assurance specialist. Dr. Mack gave an order to check his Mg. Order carried out.
[2022-06-21] MEDS: POTASSIUM CL. PREMIX PERIPHER. 50 ML IV SCH ×2 (15:55→17:18)
[2022-06-21] MEDS: IV D5/0.45 NACL 1,000 ML IV PRN (17:18)
[2022-06-21 18:00] VITALS: BP 133/58
[2022-06-21 19:55] VITALS: BP 120/67
--- NOTE | 2022-06-21 19:59 | NUR ---
RT NOTE RCVD PT TRACHED ON CA 28%,5L. PT TOLERATING TX WELL, NO ADVERSE REACTION NOTED. SUCTIONED W/ MODERATE AMOUNT OF YELLOW THICK SECRETIONS. NO S/S OF SOB OR RESP DISTRESS NOTED AT THIS TIME.
--- NOTE | 2022-06-21 20:00 | NUR ---
Notified regarding results of magnesium and KCL level. New orders to give 2 gms magnesium sulfate IV and Potassium chloride 40 meq via gt x 1 now. Will carry out orders.
[2022-06-21] MEDS ORDERED: POTASSIUM CHLORIDE 20 MEQ POWDER PACKET GT ONE (20:30)
[2022-06-21] MEDS: Magnesium 1GM/D5W 100ML PREMIX 100 ML IV SCH ×2 (20:53→22:14)
[2022-06-21] MEDS: ATORVASTATIN 40 MG TABLET GT SCH (22:03)
[2022-06-21] MEDS: TAMSULOSIN 0.4 MG CAP.SR.24H GT SCH (22:03)
[2022-06-21] MEDS: MELATONIN 3 MG TABLET GT SCH (22:03)
[2022-06-22 00:30] VITALS: BP 139/63
[2022-06-22] MEDS: ALBUTEROL FS 2.5 MG/3 ML VIAL.NEB NEB SCH ×4 (00:38→18:51)
[2022-06-22] MEDS: MEROPENEM 1 G in IV NS 0.9% 100 ML IV SCH ×3 (05:24→21:51)
[2022-06-22] MEDS: PANTOPRAZOLE 40 MG/PACK PACK GT SCH (05:25)
[2022-06-22] MEDS: LIPASE/PROTEASE/AMYLASE 1 EACH CAPSULE.DR GT SCH ×3 (05:25→21:57)
[2022-06-22] MEDS: POLYVINYL ALCOHOL 15 ML BOTTLE EACHEYE SCH ×4 (05:25→23:47)
[2022-06-22] MEDS: BLOOD SUGAR DIAGNOSTIC 1 EACH STRIP IN SCH ×4 (05:25→23:47)
[2022-06-22] MEDS: INSULIN REGULAR, HUMAN 100 UNIT/ML 3 ML VIAL SQ SCH ×3 (05:26→17:19)
[2022-06-22 07:29] VITALS: BP 92/54
[2022-06-22 07:57] LABS: CALCIUM, SERUM 6.8 mg/dL (8.5-10.1); CARBON DIOXIDE 29 mmol/L (21-32); CHLORIDE 106 mmol/L (98-107); GLUCOSE 275 mg/dL (74-106); SODIUM SERUM 144 mmol/L (136-145); UREA NITROGEN, BLOOD 8 mg/dL (7-18)
[2022-06-22 08:16] LABS: POTASSIUM 2.2 mmol/L (3.5-5.1)
[2022-06-22] MEDS: ZINC SULFATE 220 MG CAPSULE GT SCH (08:26)
[2022-06-22] MEDS: POTASSIUM CHLORIDE 20 MEQ POWDER PACKET GT SCH ×3 (08:26→17:18)
[2022-06-22] MEDS: ASPIRIN 81 MG TAB.CHEW GT SCH (08:26)
[2022-06-22] MEDS: PROSOURCE / PROSTAT (PYXIS) 30 ML UDC GT SCH ×2 (08:26→17:18)
[2022-06-22] MEDS: ASCORBIC ACID 500 MG TABLET GT SCH (08:26)
[2022-06-22] MEDS: ACIDOPHILUS/BULGARICUS 1 EACH TAB.CHEW GT SCH ×2 (08:26→17:18)
[2022-06-22] MEDS: BENEFIBER 4 GM 1 EA PACKET GT SCH ×3 (08:26→17:18)
[2022-06-22] MEDS: VITAMINS A AND D 56.7 GM TUBE TP SCH ×4 (08:26→21:58)
[2022-06-22] MEDS: ENOXAPARIN SODIUM 40 MG/0.4 ML DISP.SYRIN SQ SCH (08:26)
[2022-06-22] MEDS: FERROUS SULFATE (325 MG) 325 MG/TAB TABLET GT SCH (08:26)
--- NOTE | 2022-06-22 09:13 | NUR ---
Seen and examined by Dr. Mack, relayed BMP result with K+ 2.2, Na 145. After reviewing lab results, Dr. Mack gave an order to give additional Kcl 80 meq via GT and 40 meq IV over 4 hours, totaling of 140 meq. kcl for today since patient has routine KCL 20 meq. daily via GT. BMP to be repeated in AM. Asked MD to review BS for the past couple of days as it is trending higher due to IVF and patient is not on any long acting insulin coverage. For the past couple of days BS is above 200 mg/dl. in the morning According to Dr. Mack, continue to hold Lantus. He is more concern if patient's blood sugar is lower than higher. Orders carried out.
[2022-06-22] MEDS: HYDROCORTISONE SOD SUCCINATE 100 MG/2 ML VIAL IV SCH (10:00)
[2022-06-22] MEDS: IV D5/0.45 NACL 1,000 ML IV PRN (10:14)
[2022-06-22] MEDS: POTASSIUM CL. PREMIX PERIPHER. 50 ML IV SCH ×4 (10:52→14:23)
[2022-06-22 12:06] VITALS: BP 142/95
[2022-06-22] MEDS: VITAL AF 1.2 1,000 ML BOTTLE NG PRN (12:43)
--- NOTE | 2022-06-22 14:35 | NUR ---
Clarified stop date for Merrem from Dr. Mack, last dose tomorrow AM. Orders carried out. Left a message to patient's , Rosaline to inform of patient's condition, interventions being done and new orders.
[2022-06-22 20:04] VITALS: BP 127/63
[2022-06-22] MEDS: MELATONIN 3 MG TABLET GT SCH (21:58)
[2022-06-22] MEDS: TAMSULOSIN 0.4 MG CAP.SR.24H GT SCH (21:58)
[2022-06-22] MEDS: ATORVASTATIN 40 MG TABLET GT SCH (21:58)
[2022-06-23 00:25] VITALS: BP 122/65
[2022-06-23] MEDS: ALBUTEROL FS 2.5 MG/3 ML VIAL.NEB NEB SCH ×4 (00:38→20:10)
[2022-06-23] MEDS: LIPASE/PROTEASE/AMYLASE 1 EACH CAPSULE.DR GT SCH ×3 (05:31→21:39)
[2022-06-23] MEDS: POLYVINYL ALCOHOL 15 ML BOTTLE EACHEYE SCH ×3 (05:31→17:33)
[2022-06-23] MEDS: PANTOPRAZOLE 40 MG/PACK PACK GT SCH (05:31)
[2022-06-23] MEDS: BLOOD SUGAR DIAGNOSTIC 1 EACH STRIP IN SCH ×3 (05:31→17:33)
[2022-06-23] MEDS: INSULIN REGULAR, HUMAN 100 UNIT/ML 3 ML VIAL SQ SCH ×3 (05:32→17:34)
[2022-06-23] MEDS: MEROPENEM 1 G in IV NS 0.9% 100 ML IV SCH ×2 (05:51→13:00)
[2022-06-23 06:51] LABS: CALCIUM, SERUM 6.8 mg/dL (8.5-10.1); CREATININE 0.8 mg/dL (0.6-1.3)
[2022-06-23 06:54] LABS: POTASSIUM 2.6 mmol/L (3.5-5.1)
[2022-06-23 07:27] VITALS: BP 129/69
--- NOTE | 2022-06-23 08:25 | NUR ---
Relayed BMP result to Dr. Mack, gave order to give KCL 40 mEQ via GT x 2 doses and Calcium 500 mg BID via GT, carried out. Resident awake, no s/s of distress, appears comfortable. Rosaline informed of new order. Will continue to monitor.
[2022-06-23] MEDS: BENEFIBER 4 GM 1 EA PACKET GT SCH ×3 (08:56→17:33)
[2022-06-23] MEDS: FERROUS SULFATE (325 MG) 325 MG/TAB TABLET GT SCH (08:56)
[2022-06-23] MEDS: ASCORBIC ACID 500 MG TABLET GT SCH (08:57)
[2022-06-23] MEDS: POTASSIUM CHLORIDE 20 MEQ POWDER PACKET GT SCH ×3 (08:57→17:33)
[2022-06-23] MEDS: CALCIUM CARBONATE 500 MG TAB.CHEW GT SCH ×2 (08:57→17:33)
[2022-06-23] MEDS: PROSOURCE / PROSTAT (PYXIS) 30 ML UDC GT SCH ×2 (08:57→17:33)
[2022-06-23] MEDS: ACIDOPHILUS/BULGARICUS 1 EACH TAB.CHEW GT SCH ×2 (08:57→17:33)
[2022-06-23] MEDS: ZINC SULFATE 220 MG CAPSULE GT SCH (08:57)
[2022-06-23] MEDS: ENOXAPARIN SODIUM 40 MG/0.4 ML DISP.SYRIN SQ SCH (08:58)
[2022-06-23] MEDS: VITAMINS A AND D 56.7 GM TUBE TP SCH ×4 (08:58→21:39)
[2022-06-23] MEDS: ASPIRIN 81 MG TAB.CHEW GT SCH (08:59)
[2022-06-23] MEDS: HYDROCORTISONE SOD SUCCINATE 100 MG/2 ML VIAL IV SCH (09:21)
[2022-06-23 11:33] VITALS: BP 124/74
[2022-06-23] MEDS: VITAL AF 1.2 1,000 ML BOTTLE NG PRN ×2 (13:24→22:47)
[2022-06-23 20:17] VITALS: BP 123/58
[2022-06-23] MEDS: TAMSULOSIN 0.4 MG CAP.SR.24H GT SCH (21:40)
[2022-06-23] MEDS: ATORVASTATIN 40 MG TABLET GT SCH (21:40)
[2022-06-23] MEDS: MELATONIN 3 MG TABLET GT SCH (21:40)
[2022-06-24] MEDS: BLOOD SUGAR DIAGNOSTIC 1 EACH STRIP IN SCH ×4 (00:59→17:22)
[2022-06-24] MEDS: POLYVINYL ALCOHOL 15 ML BOTTLE EACHEYE SCH ×4 (00:59→17:21)
[2022-06-24] MEDS: ALBUTEROL FS 2.5 MG/3 ML VIAL.NEB NEB SCH ×4 (02:20→20:03)
[2022-06-24] MEDS: LIPASE/PROTEASE/AMYLASE 1 EACH CAPSULE.DR GT SCH ×3 (05:00→21:16)
[2022-06-24] MEDS: INSULIN REGULAR, HUMAN 100 UNIT/ML 3 ML VIAL SQ SCH ×3 (06:00→17:23)
[2022-06-24] MEDS: PANTOPRAZOLE 40 MG/PACK PACK GT SCH (06:14)
[2022-06-24 07:28] VITALS: BP 139/70
--- NOTE | 2022-06-24 08:49 | NUR ---
Pt. received on cool aerosol 28% in T-piece. Trach is patent, midline and secured. Back up trach and ambubag at bedside. No SOB or respiratory distress noted. Sx. pt. 2x + PRN. Tx. tolerated well with no adverse reaction noted. Will keep monitor the pt.
[2022-06-24] MEDS: HYDROCORTISONE SOD SUCCINATE 100 MG/2 ML VIAL IV SCH (09:00)
[2022-06-24] MEDS: BENEFIBER 4 GM 1 EA PACKET GT SCH ×3 (09:49→17:20)
[2022-06-24] MEDS: ASPIRIN 81 MG TAB.CHEW GT SCH (09:49)
[2022-06-24] MEDS: FERROUS SULFATE (325 MG) 325 MG/TAB TABLET GT SCH (09:50)
[2022-06-24] MEDS: ACIDOPHILUS/BULGARICUS 1 EACH TAB.CHEW GT SCH ×2 (09:50→17:21)
[2022-06-24] MEDS: POTASSIUM CHLORIDE 20 MEQ POWDER PACKET GT SCH (09:50)
[2022-06-24] MEDS: CALCIUM CARBONATE 500 MG TAB.CHEW GT SCH ×2 (09:51→17:21)
[2022-06-24] MEDS: ASCORBIC ACID 500 MG TABLET GT SCH (09:51)
[2022-06-24] MEDS: PROSOURCE / PROSTAT (PYXIS) 30 ML UDC GT SCH ×2 (09:51→17:21)
[2022-06-24] MEDS: ZINC SULFATE 220 MG CAPSULE GT SCH (09:52)
[2022-06-24] MEDS: ENOXAPARIN SODIUM 40 MG/0.4 ML DISP.SYRIN SQ SCH (09:53)
[2022-06-24] MEDS: VITAMINS A AND D 56.7 GM TUBE TP SCH ×4 (09:53→21:16)
[2022-06-24 11:45] LABS: CALCIUM, SERUM 6.9 mg/dL (8.5-10.1); CREATININE 0.7 mg/dL (0.6-1.3); POTASSIUM 3.1 mmol/L (3.5-5.1)
[2022-06-24] MEDS: IV D5/0.45 NACL 1,000 ML IV PRN (12:00)
[2022-06-24 12:04] VITALS: BP 161/70
--- NOTE | 2022-06-24 12:30 | NUR ---
Relayed BMP result to Dr Mack.
--- NOTE | 2022-06-24 13:10 | NUR ---
Seen by SHAHRAM Christine via telemedicine. Relayed BMP result to her. She ordered to give KCl 40 mEq via GT x 2 for K 3.1. She is aware that pt is still on D5NS at 70 mL/hr. No order to DC hydration at this time. Asked her for the duration of Solu Cortef. She said she will discuss it with Dr Colón. Notified Dr Mack of new orders from SHAHRAM Christine.
[2022-06-24] MEDS ORDERED: POTASSIUM CHLORIDE 20 MEQ POWDER PACKET GT ONE ×2 (14:00→18:00)
--- NOTE | 2022-06-24 14:00 | NUR ---
Notified Dr Mack that pt's blood sugar was 50 at midnight last night, latest blood sugar 212.
--- NOTE | 2022-06-24 16:02 | NUR ---
Pt's visited. Informed her of lab results and new orders.
--- NOTE | 2022-06-24 16:03 | NUR ---
Informed PIERRE Patee that pt's is requesting for dentist to do a regular check up on pt's teeth.
[2022-06-24 17:24] VITALS: BP 116/59
[2022-06-24 19:47] VITALS: BP 100/64
[2022-06-24] MEDS: ATORVASTATIN 40 MG TABLET GT SCH (21:16)
[2022-06-24] MEDS: MELATONIN 3 MG TABLET GT SCH (21:16)
[2022-06-24] MEDS: TAMSULOSIN 0.4 MG CAP.SR.24H GT SCH (21:16)
[2022-06-24] MEDS: VITAL AF 1.2 1,000 ML BOTTLE NG PRN (22:09)
[2022-06-24 23:29] VITALS: BP 147/76
[2022-06-25] MEDS: BLOOD SUGAR DIAGNOSTIC 1 EACH STRIP IN SCH ×4 (00:25→17:12)
[2022-06-25] MEDS: POLYVINYL ALCOHOL 15 ML BOTTLE EACHEYE SCH ×4 (00:25→17:12)
[2022-06-25] MEDS: ALBUTEROL FS 2.5 MG/3 ML VIAL.NEB NEB SCH ×4 (02:28→19:53)
[2022-06-25] MEDS: PANTOPRAZOLE 40 MG/PACK PACK GT SCH (05:46)
[2022-06-25] MEDS: LIPASE/PROTEASE/AMYLASE 1 EACH CAPSULE.DR GT SCH ×3 (05:46→21:13)
[2022-06-25] MEDS: INSULIN REGULAR, HUMAN 100 UNIT/ML 3 ML VIAL SQ SCH ×3 (05:48→17:13)
[2022-06-25 07:21] LABS: CALCIUM, SERUM 6.7 mg/dL (8.5-10.1); CARBON DIOXIDE 29 mmol/L (21-32); CHLORIDE 106 mmol/L (98-107); CREATININE 0.6 mg/dL (0.6-1.3); GLUCOSE 156 mg/dL (74-106); MAGNESIUM 1.8 mg/dL (1.8-2.4); POTASSIUM 3.4 mmol/L (3.5-5.1); SODIUM SERUM 141 mmol/L (136-145); UREA NITROGEN, BLOOD 18 mg/dL (7-18)
[2022-06-25 07:37] VITALS: BP 132/73
[2022-06-25] MEDS: PROSOURCE / PROSTAT (PYXIS) 30 ML UDC GT SCH ×2 (08:55→16:51)
[2022-06-25] MEDS: ACIDOPHILUS/BULGARICUS 1 EACH TAB.CHEW GT SCH ×2 (08:55→16:51)
[2022-06-25] MEDS: ASPIRIN 81 MG TAB.CHEW GT SCH (08:55)
[2022-06-25] MEDS: BENEFIBER 4 GM 1 EA PACKET GT SCH ×3 (08:55→16:51)
[2022-06-25] MEDS: POTASSIUM CHLORIDE 20 MEQ POWDER PACKET GT SCH (08:55)
[2022-06-25] MEDS: FERROUS SULFATE (325 MG) 325 MG/TAB TABLET GT SCH (08:55)
[2022-06-25] MEDS: ASCORBIC ACID 500 MG TABLET GT SCH (08:55)
[2022-06-25] MEDS: CALCIUM CARBONATE 500 MG TAB.CHEW GT SCH ×2 (08:55→16:51)
[2022-06-25] MEDS: ZINC SULFATE 220 MG CAPSULE GT SCH (08:56)
[2022-06-25] MEDS: ENOXAPARIN SODIUM 40 MG/0.4 ML DISP.SYRIN SQ SCH (08:56)
[2022-06-25] MEDS: VITAMINS A AND D 56.7 GM TUBE TP SCH ×4 (08:56→21:13)
--- NOTE | 2022-06-25 09:05 | NUR ---
Seen by Dr Colón via telemedicine. Relayed lab results to him. He ordered to give KCl 40 mEq via GT x 1, decrease Solu Cortef to 25 mg IV daily x 2 days then DC. Notified Dr Mack of lab results and new order. He ordered to repeat BMP in AM.
[2022-06-25] MEDS: HYDROCORTISONE SOD SUCCINATE 100 MG/2 ML VIAL IV SCH (09:22)
[2022-06-25] MEDS ORDERED: POTASSIUM CHLORIDE 20 MEQ POWDER PACKET GT ONE (10:00)
--- NOTE | 2022-06-25 10:10 | NUR ---
RT Patient received on CA @ 28% (5LPM). Pt is tolerating current respiratory orders w/ no SOB or respiratory distress noted. Tx tolerated well, no adverse reactions noted. Trach is midline, airway is patent/secured. Ambu/Trach available at bedside.
[2022-06-25 11:45] VITALS: BP 147/85
[2022-06-25] MEDS: INSULIN REGULAR, HUMAN 100 UNIT/ML 3 ML VIAL SQ PRN ×2 (12:00→17:15)
--- NOTE | 2022-06-25 12:02 | NUR ---
LE-Per sliding scale PRN 3 units of regular insulin Humalin R/ Novolin given.
--- NOTE | 2022-06-25 16:17 | NUR ---
Notified Dr Mack that pt is still having loose stools and the color is still the same as his feeding. Dr Mack ordered Questran 4 gm via GT daily. Notified pt's Rosaline.
[2022-06-25 19:41] VITALS: BP 109/63
--- NOTE | 2022-06-25 19:58 | NUR ---
RT RECEIVED PT ON CA 28% 5LPM. NO RESP DISTRESS. SPO2 99%. BREATHING TX GIVEN. LARGE AMT OF THICK PALE SECRETIONS DURING SUCTION. TRACH IS PATENT AND SECURED. SPARE TRACH AND AMBU BAG ARE BEDSIDE. Addendum: 06/25/22 at 1999 by Vishnu Lehman RT Amended: Links added.
[2022-06-25] MEDS: ATORVASTATIN 40 MG TABLET GT SCH (21:13)
[2022-06-25] MEDS: MELATONIN 3 MG TABLET GT SCH (21:13)
[2022-06-25] MEDS: TAMSULOSIN 0.4 MG CAP.SR.24H GT SCH (21:13)
[2022-06-25 23:33] VITALS: BP 133/68
[2022-06-26] MEDS: POLYVINYL ALCOHOL 15 ML BOTTLE EACHEYE SCH ×4 (00:32→17:06)
[2022-06-26] MEDS: BLOOD SUGAR DIAGNOSTIC 1 EACH STRIP IN SCH ×4 (00:32→18:15)
[2022-06-26] MEDS: ALBUTEROL FS 2.5 MG/3 ML VIAL.NEB NEB SCH ×4 (01:41→19:34)
[2022-06-26] MEDS: LIPASE/PROTEASE/AMYLASE 1 EACH CAPSULE.DR GT SCH ×3 (05:00→21:49)
[2022-06-26] MEDS: PANTOPRAZOLE 40 MG/PACK PACK GT SCH (06:22)
[2022-06-26] MEDS: INSULIN REGULAR, HUMAN 100 UNIT/ML 3 ML VIAL SQ SCH ×3 (06:24→18:16)
[2022-06-26 07:25] VITALS: BP 120/75
[2022-06-26 07:32] VITALS: BP 140/80
--- NOTE | 2022-06-26 07:40 | NUR ---
RT NOTE: PT RECEIVED STABLE UNABLE TO FOLLOW COMMANDS. REACTIVE TO STIM. PT TRACH PATENT AND SECURE. PT ON CA ON CORRECT LITER FLOW. BAG AND MASK AT BEDSIDE AND SPARE TRACH. PT SHOWS NO SIGNS OF DISTRESS. BILAT BREATH SOUNDS AND CHEST RISE OBSERVED WILL CONTINUE CURRENT THERAPY. Addendum: 06/26/22 at 1503 by SHELTON MARION RT Amended: Links added.
[2022-06-26 07:58] LABS: CALCIUM, SERUM 6.5 mg/dL (8.5-10.1); CREATININE 0.6 mg/dL (0.6-1.3); POTASSIUM 3.7 mmol/L (3.5-5.1)
[2022-06-26] MEDS: FERROUS SULFATE (325 MG) 325 MG/TAB TABLET GT SCH (09:00)
[2022-06-26] MEDS: ASPIRIN 81 MG TAB.CHEW GT SCH (09:00)
[2022-06-26] MEDS: CALCIUM CARBONATE 500 MG TAB.CHEW GT SCH ×2 (09:00→17:05)
[2022-06-26] MEDS: PROSOURCE / PROSTAT (PYXIS) 30 ML UDC GT SCH ×2 (09:00→17:05)
[2022-06-26] MEDS: POTASSIUM CHLORIDE 20 MEQ POWDER PACKET GT SCH (09:00)
[2022-06-26] MEDS: ASCORBIC ACID 500 MG TABLET GT SCH (09:00)
[2022-06-26] MEDS: ENOXAPARIN SODIUM 40 MG/0.4 ML DISP.SYRIN SQ SCH (09:00)
[2022-06-26] MEDS: BENEFIBER 4 GM 1 EA PACKET GT SCH ×3 (09:00→17:05)
[2022-06-26] MEDS: VITAMINS A AND D 56.7 GM TUBE TP SCH ×4 (09:00→21:49)
[2022-06-26] MEDS: ACIDOPHILUS/BULGARICUS 1 EACH TAB.CHEW GT SCH ×2 (09:00→17:05)
[2022-06-26] MEDS: ZINC SULFATE 220 MG CAPSULE GT SCH (09:00)
[2022-06-26] MEDS: CHOLESTYRAMINE/ASPARTAME 4 G/PKT PACKET GT SCH (09:33)
[2022-06-26] MEDS: HYDROCORTISONE SOD SUCCINATE 100 MG/2 ML VIAL IV SCH (09:45)
--- NOTE | 2022-06-26 10:20 | NUR ---
Seen and examined by Dr. Mack, Reviewed BMP result and ordered to DC IVF. He said to do repeat BMP in AM, K+ level today 3.7, no other order given at this time. Informed Dr. Mack that collar setter reviewed total fluid intake last week and recommended to decrease water flushing through GT to 200 ml. Q 6 hours since collar setter calculated IVF intake. Asked Dr. Mack if 200ml Q 6 is enough fluid intake when IVF is discontinued, he said it is enough. No s/s of hypo/hyperglycemia. Resident's updated.
[2022-06-26 12:07] VITALS: BP 137/72
[2022-06-26] MEDS: VITAL AF 1.2 1,000 ML BOTTLE NG PRN (12:29)
[2022-06-26] MEDS: INSULIN REGULAR, HUMAN 100 UNIT/ML 3 ML VIAL SQ PRN ×2 (12:37→18:17)
--- NOTE | 2022-06-26 19:35 | NUR ---
RT NOTE: Pt rec'd trached on CA 28% fio2. No SOB noted at this time. Trach is patent and secured. Pt sx'd at this time. Will continue to monitor closely.
[2022-06-26 20:00] VITALS: BP 109/61
[2022-06-26] MEDS: TAMSULOSIN 0.4 MG CAP.SR.24H GT SCH (21:49)
[2022-06-26] MEDS: MELATONIN 3 MG TABLET GT SCH (21:50)
[2022-06-26] MEDS: ATORVASTATIN 40 MG TABLET GT SCH (21:50)
[2022-06-27] MEDS: POLYVINYL ALCOHOL 15 ML BOTTLE EACHEYE SCH ×4 (00:16→18:23)
[2022-06-27] MEDS: BLOOD SUGAR DIAGNOSTIC 1 EACH STRIP IN SCH ×4 (00:16→18:23)
[2022-06-27] MEDS: INSULIN REGULAR, HUMAN 100 UNIT/ML 3 ML VIAL SQ PRN ×2 (00:19→18:26)
[2022-06-27 00:33] VITALS: BP 116/62
[2022-06-27] MEDS: ALBUTEROL FS 2.5 MG/3 ML VIAL.NEB NEB SCH ×4 (01:43→19:48)
[2022-06-27] MEDS: PANTOPRAZOLE 40 MG/PACK PACK GT SCH (05:20)
[2022-06-27] MEDS: LIPASE/PROTEASE/AMYLASE 1 EACH CAPSULE.DR GT SCH ×3 (05:20→20:22)
[2022-06-27] MEDS: INSULIN REGULAR, HUMAN 100 UNIT/ML 3 ML VIAL SQ SCH ×2 (05:21→12:03)
[2022-06-27] MEDS: VITAL AF 1.2 1,000 ML BOTTLE NG PRN (06:00)
[2022-06-27 07:54] VITALS: BP 104/64
[2022-06-27] MEDS: ASCORBIC ACID 500 MG TABLET GT SCH (09:00)
[2022-06-27] MEDS: ASPIRIN 81 MG TAB.CHEW GT SCH (09:00)
[2022-06-27] MEDS: BENEFIBER 4 GM 1 EA PACKET GT SCH ×3 (09:00→17:00)
[2022-06-27] MEDS: ENOXAPARIN SODIUM 40 MG/0.4 ML DISP.SYRIN SQ SCH (09:00)
[2022-06-27] MEDS: CALCIUM CARBONATE 500 MG TAB.CHEW GT SCH ×2 (09:00→17:00)
[2022-06-27] MEDS: PROSOURCE / PROSTAT (PYXIS) 30 ML UDC GT SCH ×2 (09:00→17:00)
[2022-06-27] MEDS: ACIDOPHILUS/BULGARICUS 1 EACH TAB.CHEW GT SCH ×2 (09:00→17:00)
[2022-06-27] MEDS: POTASSIUM CHLORIDE 20 MEQ POWDER PACKET GT SCH (09:00)
[2022-06-27] MEDS: VITAMINS A AND D 56.7 GM TUBE TP SCH ×4 (09:00→20:22)
[2022-06-27] MEDS: FERROUS SULFATE (325 MG) 325 MG/TAB TABLET GT SCH (09:00)
[2022-06-27] MEDS: ZINC SULFATE 220 MG CAPSULE GT SCH (09:00)
[2022-06-27] MEDS: CHOLESTYRAMINE/ASPARTAME 4 G/PKT PACKET GT SCH (09:44)
[2022-06-27 10:59] LABS: CALCIUM, SERUM 7.2 mg/dL (8.5-10.1); CREATININE 0.7 mg/dL (0.6-1.3)
[2022-06-27 12:13] VITALS: BP 114/67
--- NOTE | 2022-06-27 15:59 | NUR ---
PIERRE emailed Moderna vaccine fact sheet to the patient's , Rosaline at [email or web address].
--- NOTE | 2022-06-27 17:22 | NUR ---
Called pt's Rosaline to inform her of pt's blood sugars and order to DC Novolin R 2 units SC q 0600, 1200, and 1800. Offered Covid-19 second booster, she refused for it to be given to pt. Education provided to her regarding risks, benefits, and possible side effects.
[2022-06-27 19:04] VITALS: BP 107/62
[2022-06-27] MEDS: MELATONIN 3 MG TABLET GT SCH (21:29)
[2022-06-27] MEDS: TAMSULOSIN 0.4 MG CAP.SR.24H GT SCH (21:29)
[2022-06-27] MEDS: ATORVASTATIN 40 MG TABLET GT SCH (21:29)
[2022-06-27 23:49] VITALS: BP 106/60
[2022-06-28] MEDS: POLYVINYL ALCOHOL 15 ML BOTTLE EACHEYE SCH ×5 (00:24→23:23)
[2022-06-28] MEDS: INSULIN REGULAR, HUMAN 100 UNIT/ML 3 ML VIAL SQ PRN ×4 (00:24→23:26)
[2022-06-28] MEDS: BLOOD SUGAR DIAGNOSTIC 1 EACH STRIP IN SCH ×5 (00:24→23:23)
[2022-06-28] MEDS: ALBUTEROL FS 2.5 MG/3 ML VIAL.NEB NEB SCH ×4 (01:26→18:52)
[2022-06-28] MEDS: LIPASE/PROTEASE/AMYLASE 1 EACH CAPSULE.DR GT SCH ×3 (04:53→21:19)
[2022-06-28] MEDS: PANTOPRAZOLE 40 MG/PACK PACK GT SCH (05:02)
[2022-06-28 07:40] VITALS: BP 130/60
[2022-06-28] MEDS: ACIDOPHILUS/BULGARICUS 1 EACH TAB.CHEW GT SCH ×2 (09:00→17:00)
[2022-06-28] MEDS: PROSOURCE / PROSTAT (PYXIS) 30 ML UDC GT SCH ×2 (09:00→17:00)
[2022-06-28] MEDS: ASPIRIN 81 MG TAB.CHEW GT SCH (09:00)
[2022-06-28] MEDS: VITAMINS A AND D 56.7 GM TUBE TP SCH ×4 (09:00→21:19)
[2022-06-28] MEDS: POTASSIUM CHLORIDE 20 MEQ POWDER PACKET GT SCH (09:00)
[2022-06-28] MEDS: ZINC SULFATE 220 MG CAPSULE GT SCH (09:00)
[2022-06-28] MEDS: CALCIUM CARBONATE 500 MG TAB.CHEW GT SCH ×2 (09:00→17:00)
[2022-06-28] MEDS: ASCORBIC ACID 500 MG TABLET GT SCH (09:00)
[2022-06-28] MEDS: FERROUS SULFATE (325 MG) 325 MG/TAB TABLET GT SCH (09:00)
[2022-06-28] MEDS: BENEFIBER 4 GM 1 EA PACKET GT SCH ×3 (09:00→17:00)
[2022-06-28] MEDS: ENOXAPARIN SODIUM 40 MG/0.4 ML DISP.SYRIN SQ SCH (09:00)
[2022-06-28] MEDS: CHOLESTYRAMINE/ASPARTAME 4 G/PKT PACKET GT SCH (09:37)
[2022-06-28 11:56] VITALS: BP 117/74
--- NOTE | 2022-06-28 16:15 | NUR ---
RT NOTE Patient received on cool aerosol. Trach tube in place, patent, and secured with trach tie. Sx moderate, thick, pale yellow secretions via trach. Tolerate HHN tx well. Ambu bag, and back up trach by the bedside. No distress at this time. Addendum: 06/28/22 at 1616 by SHAWN CONDE RT Amended: Links added.
--- NOTE | 2022-06-28 18:02 | NUR ---
BS- 52, orange juice given via GT, resident awake,no s/s of distress. Will continue to monitor.
--- NOTE | 2022-06-28 18:38 | NUR ---
Rechecked BS- 59, D50-50 given via IV as ordered, resident awake, no s/s of distress. Dr. Mack informed. Will continue to monitor. Endorsed.
[2022-06-28] MEDS: DEXTROSE 50%-WATER 50 ML DISP.SYRIN IVP PRN (18:52)
[2022-06-28] MEDS: VITAL AF 1.2 1,000 ML BOTTLE NG PRN (19:05)
[2022-06-28 19:48] VITALS: BP 119/72
[2022-06-28] MEDS: TAMSULOSIN 0.4 MG CAP.SR.24H GT SCH (21:19)
[2022-06-28] MEDS: ATORVASTATIN 40 MG TABLET GT SCH (21:19)
[2022-06-28] MEDS: MELATONIN 3 MG TABLET GT SCH (21:20)
[2022-06-29 00:31] VITALS: BP 123/67
[2022-06-29] MEDS: ALBUTEROL FS 2.5 MG/3 ML VIAL.NEB NEB SCH ×4 (01:02→19:34)
[2022-06-29] MEDS: LIPASE/PROTEASE/AMYLASE 1 EACH CAPSULE.DR GT SCH ×3 (05:20→21:28)
[2022-06-29] MEDS: BLOOD SUGAR DIAGNOSTIC 1 EACH STRIP IN SCH ×3 (05:21→18:21)
[2022-06-29] MEDS: PANTOPRAZOLE 40 MG/PACK PACK GT SCH (05:21)
[2022-06-29] MEDS: POLYVINYL ALCOHOL 15 ML BOTTLE EACHEYE SCH ×3 (05:21→17:10)
[2022-06-29 05:23] VITALS: BP 100/64
[2022-06-29] MEDS: INSULIN REGULAR, HUMAN 100 UNIT/ML 3 ML VIAL SQ PRN ×3 (05:23→18:22)
[2022-06-29 07:44] VITALS: BP 117/60
[2022-06-29] MEDS: FERROUS SULFATE (325 MG) 325 MG/TAB TABLET GT SCH (09:25)
[2022-06-29] MEDS: ASPIRIN 81 MG TAB.CHEW GT SCH (09:26)
[2022-06-29] MEDS: BENEFIBER 4 GM 1 EA PACKET GT SCH ×3 (09:26→17:09)
[2022-06-29] MEDS: PROSOURCE / PROSTAT (PYXIS) 30 ML UDC GT SCH ×2 (09:27→17:09)
[2022-06-29] MEDS: POTASSIUM CHLORIDE 20 MEQ POWDER PACKET GT SCH (09:27)
[2022-06-29] MEDS: CALCIUM CARBONATE 500 MG TAB.CHEW GT SCH ×2 (09:27→17:10)
[2022-06-29] MEDS: ACIDOPHILUS/BULGARICUS 1 EACH TAB.CHEW GT SCH ×2 (09:27→17:09)
[2022-06-29] MEDS: CHOLESTYRAMINE/ASPARTAME 4 G/PKT PACKET GT SCH (09:27)
[2022-06-29] MEDS: ASCORBIC ACID 500 MG TABLET GT SCH (09:28)
[2022-06-29] MEDS: ZINC SULFATE 220 MG CAPSULE GT SCH (09:28)
[2022-06-29] MEDS: VITAMINS A AND D 56.7 GM TUBE TP SCH ×4 (09:29→21:28)
[2022-06-29] MEDS: ENOXAPARIN SODIUM 40 MG/0.4 ML DISP.SYRIN SQ SCH (09:29)
[2022-06-29 12:36] VITALS: BP 138/79
--- NOTE | 2022-06-29 13:22 | NUR ---
Monthly Progress Note: Resident on Activity program was seen and sensory activity was provided. Room visits, hand massage, books on tape, mellow moments, soft music.pt is unable to express his needs No significant change noted, this activity program will continue as current.
--- NOTE | 2022-06-29 17:47 | NUR ---
BS - 37, recheck BS 43, patient awake no s/s of distress noted. RAS [place] notified, Dextrose Inj 50% disp Syringe given by CN as ordered. Will continue to monitor.
[2022-06-29] MEDS: VITAL AF 1.2 1,000 ML BOTTLE NG PRN (18:03)
[2022-06-29] MEDS: DEXTROSE 50%-WATER 50 ML DISP.SYRIN IVP PRN (18:14)
--- NOTE | 2022-06-29 18:33 | NUR ---
Rechecked BS 138, RAS [place] notified, patient awake no s/s of distress noted, kept comfortable clean and dry.Will continue to monitor.
--- NOTE | 2022-06-29 18:52 | NUR ---
Notified Dr. Mack that patient's BS taken at 1800 is 43mg/dl. and D50 administered IV. Blood sugar rechecked after 30 minutes 138 mg/dl. BMP on 06/27/22 relayed. Informed MD that patient's BM still watery and formula liked color. Endorsed, Awaiting for orders
--- NOTE | 2022-06-29 19:30 | NUR ---
RN NOTES RECEIVED ORDER TO RESTART IV FLUIDS FROM . D5 1/2NS RESTARTED AT 80mls/hr. MONITORED FOR S/S OF HYPOGLYCEMIA.
[2022-06-29 19:42] VITALS: BP 130/69
[2022-06-29] MEDS: IV D5/0.45 NACL 1,000 ML IV SCH (20:20)
[2022-06-29] MEDS: ATORVASTATIN 40 MG TABLET GT SCH (21:28)
[2022-06-29] MEDS: MELATONIN 3 MG TABLET GT SCH (21:28)
[2022-06-29] MEDS: TAMSULOSIN 0.4 MG CAP.SR.24H GT SCH (21:28)
[2022-06-30] MEDS: POLYVINYL ALCOHOL 15 ML BOTTLE EACHEYE SCH ×5 (00:25→23:52)
[2022-06-30] MEDS: BLOOD SUGAR DIAGNOSTIC 1 EACH STRIP IN SCH ×4 (00:25→18:18)
[2022-06-30] MEDS: INSULIN REGULAR, HUMAN 100 UNIT/ML 3 ML VIAL SQ PRN ×4 (00:27→18:19)
[2022-06-30] MEDS: ALBUTEROL FS 2.5 MG/3 ML VIAL.NEB NEB SCH ×4 (01:19→19:42)
[2022-06-30 01:25] VITALS: BP 141/77
[2022-06-30] MEDS: LIPASE/PROTEASE/AMYLASE 1 EACH CAPSULE.DR GT SCH ×3 (05:27→20:24)
[2022-06-30] MEDS: PANTOPRAZOLE 40 MG/PACK PACK GT SCH (05:28)
[2022-06-30 05:29] VITALS: BP 132/73
[2022-06-30] MEDS: VITAL AF 1.2 1,000 ML BOTTLE NG PRN (06:42)
[2022-06-30] MEDS: IV D5/0.45 NACL 1,000 ML IV SCH ×2 (08:00→21:01)
[2022-06-30 08:01] VITALS: BP 120/56
[2022-06-30] MEDS: ASPIRIN 81 MG TAB.CHEW GT SCH (09:13)
[2022-06-30] MEDS: PROSOURCE / PROSTAT (PYXIS) 30 ML UDC GT SCH ×2 (09:14→17:18)
[2022-06-30] MEDS: BENEFIBER 4 GM 1 EA PACKET GT SCH ×3 (09:14→17:18)
[2022-06-30] MEDS: FERROUS SULFATE (325 MG) 325 MG/TAB TABLET GT SCH (09:14)
[2022-06-30] MEDS: POTASSIUM CHLORIDE 20 MEQ POWDER PACKET GT SCH (09:14)
[2022-06-30] MEDS: ACIDOPHILUS/BULGARICUS 1 EACH TAB.CHEW GT SCH ×2 (09:14→17:18)
[2022-06-30] MEDS: ZINC SULFATE 220 MG CAPSULE GT SCH (09:15)
[2022-06-30] MEDS: CHOLESTYRAMINE/ASPARTAME 4 G/PKT PACKET GT SCH (09:15)
[2022-06-30] MEDS: CALCIUM CARBONATE 500 MG TAB.CHEW GT SCH ×2 (09:15→17:18)
[2022-06-30] MEDS: ASCORBIC ACID 500 MG TABLET GT SCH (09:15)
[2022-06-30] MEDS: VITAMINS A AND D 56.7 GM TUBE TP SCH ×4 (09:16→20:24)
[2022-06-30] MEDS: ENOXAPARIN SODIUM 40 MG/0.4 ML DISP.SYRIN SQ SCH (09:16)
--- NOTE | 2022-06-30 11:24 | NUR ---
MONTHLY TRACH CHANGE HAVE NOT DONE ON 06/29/22. NO DOCUMENTATION TRACH CHANGE HAS BEEN CHART. 06/30/22 MONTHLY TRACH CHANGE DONE USING SHILEY 8 CUFFED WITH NO COMPLICATIONS. SX DONE PRE/POST PROCEDURE,SMALL BLEEDING NOTED,EQUAL BREATH SOUNDS AUSCULTATED AND BILATERAL CHEST RISE NOTED. PT TRACH SECURED AND PATENT. NO SOB NOTED. TIN TIE MACHINE OPERATOR AUTOMATIC MADONA NOTIFIED.
--- NOTE | 2022-06-30 13:00 | NUR ---
Patient resting in bed, calm at this time, on cool aerosol 28%, tolerating well, no resp. distress noted. Kept HOB elevated at all times. Suctioned as needed. On IV fluid D51/2 NS at 80 ml/hr. No further hypoglycemia noted at this time. On GT feeding, tolerating well. Patient having loose BM in large amount brown in color at this time. Has aguiar catheter patent and intact draining to dark félix color urine. Patient kept on contact isolation for monitoring.
[2022-06-30 13:07] VITALS: BP 132/64
[2022-06-30 19:21] VITALS: BP 111/65
[2022-06-30] MEDS: TAMSULOSIN 0.4 MG CAP.SR.24H GT SCH (21:36)
[2022-06-30] MEDS: MELATONIN 3 MG TABLET GT SCH (21:36)
[2022-06-30] MEDS: ATORVASTATIN 40 MG TABLET GT SCH (21:36)
[2022-07-01] MEDS: BLOOD SUGAR DIAGNOSTIC 1 EACH STRIP IN SCH ×5 (00:05→23:16)
[2022-07-01] MEDS: INSULIN REGULAR, HUMAN 100 UNIT/ML 3 ML VIAL SQ PRN ×5 (00:06→23:16)
[2022-07-01 00:21] VITALS: BP 113/63
[2022-07-01] MEDS: ALBUTEROL FS 2.5 MG/3 ML VIAL.NEB NEB SCH ×4 (01:31→19:53)
[2022-07-01] MEDS: LIPASE/PROTEASE/AMYLASE 1 EACH CAPSULE.DR GT SCH ×3 (05:00→21:00)
[2022-07-01] MEDS: POLYVINYL ALCOHOL 15 ML BOTTLE EACHEYE SCH ×4 (06:05→23:16)
[2022-07-01] MEDS: PANTOPRAZOLE 40 MG/PACK PACK GT SCH (06:05)
[2022-07-01 07:29] VITALS: BP 155/90
[2022-07-01] MEDS: CHOLESTYRAMINE/ASPARTAME 4 G/PKT PACKET GT SCH (08:00)
[2022-07-01] MEDS: FERROUS SULFATE (325 MG) 325 MG/TAB TABLET GT SCH (09:53)
[2022-07-01] MEDS: BENEFIBER 4 GM 1 EA PACKET GT SCH ×3 (09:53→17:27)
[2022-07-01] MEDS: CALCIUM CARBONATE 500 MG TAB.CHEW GT SCH ×2 (09:54→17:27)
[2022-07-01] MEDS: PROSOURCE / PROSTAT (PYXIS) 30 ML UDC GT SCH ×2 (09:54→17:27)
[2022-07-01] MEDS: ACIDOPHILUS/BULGARICUS 1 EACH TAB.CHEW GT SCH ×2 (09:54→17:27)
[2022-07-01] MEDS: POTASSIUM CHLORIDE 20 MEQ POWDER PACKET GT SCH (09:54)
[2022-07-01] MEDS: ZINC SULFATE 220 MG CAPSULE GT SCH (09:55)
[2022-07-01] MEDS: ASCORBIC ACID 500 MG TABLET GT SCH (09:55)
[2022-07-01] MEDS: VITAMINS A AND D 56.7 GM TUBE TP SCH ×4 (09:56→21:16)
[2022-07-01] MEDS: ENOXAPARIN SODIUM 40 MG/0.4 ML DISP.SYRIN SQ SCH (09:56)
[2022-07-01] MEDS: ASPIRIN 81 MG TAB.CHEW GT SCH (09:56)
[2022-07-01] MEDS: IV D5/0.45 NACL 1,000 ML IV SCH ×2 (12:00→21:42)
[2022-07-01 12:02] VITALS: BP 145/72
--- NOTE | 2022-07-01 12:38 | NUR ---
Seen by Dr Mack. Notified him that pt is still having loose stools. He ordered to give Imodium 2 mg via GT PRN after each loose bowel movement up to 5 times per day. Notified pt's . Dr Mack also ordered GI consult.
--- NOTE | 2022-07-01 15:11 | NUR ---
Called Dr Mitchell's office and spoke with Irina. Left message with her for Dr Mitchell.
[2022-07-01] MEDS ORDERED: DEXTROSE 50%-WATER 50 ML DISP.SYRIN IV PRN (17:00)
[2022-07-01] MEDS: LOPERAMIDE HCL UDC 2 MG/15 ML LIQUID GT PRN (17:29)
[2022-07-01] MEDS: VITAL AF 1.2 1,000 ML BOTTLE NG PRN (18:34)
--- NOTE | 2022-07-01 18:43 | NUR ---
Dr Mitchell called. Informed him that pt needs a GI consult for loose stools and low stool elastase. Also informed him that pt is on Pancreaze. Dr Mitchell said to give Pancreaze 10323 units 5 capsules TID or have the pharmacy give the highest dose that pt can have. Called [facility] pharmacist Basilio to ask about the dosing. He said he will call back.
[2022-07-01 18:50] VITALS: BP 116/65
--- NOTE | 2022-07-01 18:55 | NUR ---
[facility] pharmacist Basilio called. He said based on the calculations, pt should get Pancreaze 4,200 units 5 capsules via GT q 8 hours for now. [facility] pharmacy will titrate up the dose.
[2022-07-01 19:32] VITALS: BP 105/70
--- NOTE | 2022-07-01 20:25 | NUR ---
RT Notes Pt received trached on cool mist aerosol via t-piece. No signs of resp distress/SOB noted. Airway patent and secured. Pt suctioned. HHN TX given. Ambubag and spare trach at head of bed. Will cont to monitor.
[2022-07-01] MEDS: MELATONIN 3 MG TABLET GT SCH (21:16)
[2022-07-01] MEDS: TAMSULOSIN 0.4 MG CAP.SR.24H GT SCH (21:16)
[2022-07-01] MEDS: ATORVASTATIN 40 MG TABLET GT SCH (21:16)
[2022-07-02] MEDS: ALBUTEROL FS 2.5 MG/3 ML VIAL.NEB NEB SCH ×4 (01:44→19:50)
[2022-07-02] MEDS: LIPASE/PROTEASE/AMYLASE 1 EACH CAPSULE.DR GT SCH ×3 (05:00→20:10)
[2022-07-02] MEDS: PANTOPRAZOLE 40 MG/PACK PACK GT SCH (05:20)
[2022-07-02] MEDS: POLYVINYL ALCOHOL 15 ML BOTTLE EACHEYE SCH ×4 (05:20→23:54)
[2022-07-02] MEDS: BLOOD SUGAR DIAGNOSTIC 1 EACH STRIP IN SCH ×4 (05:53→23:54)
[2022-07-02] MEDS: INSULIN REGULAR, HUMAN 100 UNIT/ML 3 ML VIAL SQ PRN ×4 (05:54→23:54)
[2022-07-02 07:25] VITALS: BP 98/60
--- NOTE | 2022-07-02 08:05 | NUR ---
RT NOTE: PT RECEIVED STABLE UNABLE TO FOLLOW COMMANDS. REACTIVE TO STIM. PT TRACH PATENT AND SECURE. PT ON CA ON CORRECT LITER FLOW. BAG AND MASK AT BEDSIDE AND SPARE TRACH. PT SHOWS NO SIGNS OF DISTRESS. BILAT BREATH SOUNDS AND CHEST RISE OBSERVED WILL CONTINUE CURRENT THERAPY. Addendum: 07/02/22 at 1234 by SHELTON MARION RT Amended: Links added.
[2022-07-02] MEDS: FERROUS SULFATE (325 MG) 325 MG/TAB TABLET GT SCH (09:42)
[2022-07-02] MEDS: ACIDOPHILUS/BULGARICUS 1 EACH TAB.CHEW GT SCH ×2 (09:42→17:34)
[2022-07-02] MEDS: ASCORBIC ACID 500 MG TABLET GT SCH (09:42)
[2022-07-02] MEDS: ZINC SULFATE 220 MG CAPSULE GT SCH (09:42)
[2022-07-02] MEDS: CALCIUM CARBONATE 500 MG TAB.CHEW GT SCH ×2 (09:42→17:35)
[2022-07-02] MEDS: CHOLESTYRAMINE/ASPARTAME 4 G/PKT PACKET GT SCH (09:42)
[2022-07-02] MEDS: PROSOURCE / PROSTAT (PYXIS) 30 ML UDC GT SCH ×2 (09:42→17:35)
[2022-07-02] MEDS: POTASSIUM CHLORIDE 20 MEQ POWDER PACKET GT SCH (09:42)
[2022-07-02] MEDS: ASPIRIN 81 MG TAB.CHEW GT SCH (09:42)
[2022-07-02] MEDS: BENEFIBER 4 GM 1 EA PACKET GT SCH ×3 (09:42→17:34)
[2022-07-02] MEDS: ENOXAPARIN SODIUM 40 MG/0.4 ML DISP.SYRIN SQ SCH (09:43)
[2022-07-02] MEDS: VITAMINS A AND D 56.7 GM TUBE TP SCH ×4 (09:43→20:10)
[2022-07-02] MEDS: IV D5/0.45 NACL 1,000 ML IV SCH ×2 (10:45→22:52)
[2022-07-02 12:04] VITALS: BP 139/85
[2022-07-02] MEDS: VITAL AF 1.2 1,000 ML BOTTLE NG PRN (14:41)
[2022-07-02 19:04] VITALS: BP 113/61
--- NOTE | 2022-07-02 19:57 | NUR ---
RT Received patient on ordered settings: cool aerosol FiO2 28% at 5 LPM. Patient is awake, but not alert, except to physical stimuli. No respiratory distress or SOB noted, but slight work of breathing. SPO2 98% upon initial assessment. Breathing tx given and tolerated with no adverse reaction. Suctioned with moderate amount of thick yellow secretions.Trach secured and patent. Emergency trach and ambubag are bedside.
[2022-07-02] MEDS: TAMSULOSIN 0.4 MG CAP.SR.24H GT SCH (21:17)
[2022-07-02] MEDS: MELATONIN 3 MG TABLET GT SCH (21:18)
[2022-07-02] MEDS: ATORVASTATIN 40 MG TABLET GT SCH (21:18)
[2022-07-03] MEDS: ALBUTEROL FS 2.5 MG/3 ML VIAL.NEB NEB SCH ×4 (01:53→19:55)
[2022-07-03] MEDS: LIPASE/PROTEASE/AMYLASE 1 EACH CAPSULE.DR GT SCH ×3 (04:50→21:50)
[2022-07-03] MEDS: INSULIN REGULAR, HUMAN 100 UNIT/ML 3 ML VIAL SQ PRN ×4 (05:04→23:44)
[2022-07-03] MEDS: POLYVINYL ALCOHOL 15 ML BOTTLE EACHEYE SCH ×4 (05:04→23:44)
[2022-07-03] MEDS: PANTOPRAZOLE 40 MG/PACK PACK GT SCH (05:04)
[2022-07-03] MEDS: BLOOD SUGAR DIAGNOSTIC 1 EACH STRIP IN SCH ×4 (05:04→23:44)
[2022-07-03 07:37] VITALS: BP 141/69
--- NOTE | 2022-07-03 09:57 | NUR ---
RT Patient received on cool aerosol 28% (5LPM). Breathing tx and suction tolerated well. Trach patent and secured. Back up trach and ambu bag at bedside. No SOB or respiratory distress noted at this time.
[2022-07-03] MEDS: CHOLESTYRAMINE/ASPARTAME 4 G/PKT PACKET GT SCH (09:58)
[2022-07-03] MEDS: BENEFIBER 4 GM 1 EA PACKET GT SCH ×3 (09:59→17:48)
[2022-07-03] MEDS: POTASSIUM CHLORIDE 20 MEQ POWDER PACKET GT SCH (09:59)
[2022-07-03] MEDS: VITAMINS A AND D 56.7 GM TUBE TP SCH ×4 (09:59→21:50)
[2022-07-03] MEDS: ACIDOPHILUS/BULGARICUS 1 EACH TAB.CHEW GT SCH ×2 (09:59→17:48)
[2022-07-03] MEDS: PROSOURCE / PROSTAT (PYXIS) 30 ML UDC GT SCH ×2 (09:59→17:48)
[2022-07-03] MEDS: ASPIRIN 81 MG TAB.CHEW GT SCH (09:59)
[2022-07-03] MEDS: FERROUS SULFATE (325 MG) 325 MG/TAB TABLET GT SCH (09:59)
[2022-07-03] MEDS: ZINC SULFATE 220 MG CAPSULE GT SCH (09:59)
[2022-07-03] MEDS: CALCIUM CARBONATE 500 MG TAB.CHEW GT SCH ×2 (09:59→17:48)
[2022-07-03] MEDS: ASCORBIC ACID 500 MG TABLET GT SCH (09:59)
[2022-07-03] MEDS: ENOXAPARIN SODIUM 40 MG/0.4 ML DISP.SYRIN SQ SCH (09:59)
[2022-07-03] MEDS: IV D5/0.45 NACL 1,000 ML IV SCH ×2 (11:43→23:25)
[2022-07-03 12:02] VITALS: BP 122/58
[2022-07-03] MEDS: VITAL AF 1.2 1,000 ML BOTTLE NG PRN (17:49)
[2022-07-03 19:01] VITALS: BP 104/61
[2022-07-03] MEDS: MELATONIN 3 MG TABLET GT SCH (21:50)
[2022-07-03] MEDS: TAMSULOSIN 0.4 MG CAP.SR.24H GT SCH (21:50)
[2022-07-03] MEDS: ATORVASTATIN 40 MG TABLET GT SCH (21:50)
[2022-07-03] MEDS: LOPERAMIDE HCL UDC 2 MG/15 ML LIQUID GT PRN (23:07)
[2022-07-04 00:25] VITALS: BP 122/68
--- NOTE | 2022-07-04 01:12 | NUR ---
RT Pt recvd on CA 28% via t-bar. trach is patent and secured, Suction PRN, neb tx given and mina well. Trach care done at this time. Spo2 >92%. No SOB or respiratory distress noted at this time. Ambu bag and spare trach at bedside.
[2022-07-04] MEDS: ALBUTEROL FS 2.5 MG/3 ML VIAL.NEB NEB SCH ×4 (01:30→19:33)
[2022-07-04] MEDS: LIPASE/PROTEASE/AMYLASE 1 EACH CAPSULE.DR GT SCH ×3 (05:25→21:10)
[2022-07-04] MEDS: POLYVINYL ALCOHOL 15 ML BOTTLE EACHEYE SCH ×4 (05:25→23:06)
[2022-07-04] MEDS: INSULIN REGULAR, HUMAN 100 UNIT/ML 3 ML VIAL SQ PRN ×4 (05:25→23:40)
[2022-07-04] MEDS: PANTOPRAZOLE 40 MG/PACK PACK GT SCH (05:25)
[2022-07-04] MEDS: BLOOD SUGAR DIAGNOSTIC 1 EACH STRIP IN SCH ×4 (05:25→23:39)
[2022-07-04] MEDS: VITAL AF 1.2 1,000 ML BOTTLE NG PRN ×2 (05:25→23:33)
[2022-07-04 07:22] VITALS: BP 127/65
[2022-07-04] MEDS: CHOLESTYRAMINE/ASPARTAME 4 G/PKT PACKET GT SCH (09:28)
[2022-07-04] MEDS: VITAMINS A AND D 56.7 GM TUBE TP SCH ×4 (09:46→21:11)
[2022-07-04] MEDS: ASPIRIN 81 MG TAB.CHEW GT SCH (09:46)
[2022-07-04] MEDS: ZINC SULFATE 220 MG CAPSULE GT SCH (09:46)
[2022-07-04] MEDS: FERROUS SULFATE (325 MG) 325 MG/TAB TABLET GT SCH (09:46)
[2022-07-04] MEDS: PROSOURCE / PROSTAT (PYXIS) 30 ML UDC GT SCH ×2 (09:46→17:36)
[2022-07-04] MEDS: ENOXAPARIN SODIUM 40 MG/0.4 ML DISP.SYRIN SQ SCH (09:46)
[2022-07-04] MEDS: POTASSIUM CHLORIDE 20 MEQ POWDER PACKET GT SCH (09:46)
[2022-07-04] MEDS: ACIDOPHILUS/BULGARICUS 1 EACH TAB.CHEW GT SCH ×2 (09:46→17:36)
[2022-07-04] MEDS: CALCIUM CARBONATE 500 MG TAB.CHEW GT SCH ×2 (09:46→17:36)
[2022-07-04] MEDS: ASCORBIC ACID 500 MG TABLET GT SCH (09:46)
[2022-07-04] MEDS: BENEFIBER 4 GM 1 EA PACKET GT SCH ×3 (09:46→17:36)
--- NOTE | 2022-07-04 09:57 | NUR ---
RT Pt received on CA via t-piece. No signs of respiratory distress or SOB noted. Airway patent and secured. Pt suctioned. Resp TX given and tolerated well. Ambu bag and spare trach at bedside. Will continue to monitor closely
[2022-07-04 11:46] VITALS: BP 112/66
[2022-07-04] MEDS: IV D5/0.45 NACL 1,000 ML IV SCH (14:04)
[2022-07-04 19:23] VITALS: BP 147/74
[2022-07-04] MEDS: TAMSULOSIN 0.4 MG CAP.SR.24H GT SCH (21:11)
[2022-07-04] MEDS: LOPERAMIDE HCL UDC 2 MG/15 ML LIQUID GT PRN (21:11)
[2022-07-04] MEDS: MELATONIN 3 MG TABLET GT SCH (21:11)
[2022-07-04] MEDS: ATORVASTATIN 40 MG TABLET GT SCH (21:11)
[2022-07-05 01:02] VITALS: BP 133/76
[2022-07-05] MEDS: IV D5/0.45 NACL 1,000 ML IV SCH ×2 (01:30→13:40)
[2022-07-05] MEDS: ALBUTEROL FS 2.5 MG/3 ML VIAL.NEB NEB SCH ×4 (01:35→20:27)
[2022-07-05] MEDS: LIPASE/PROTEASE/AMYLASE 1 EACH CAPSULE.DR GT SCH ×3 (04:35→21:03)
[2022-07-05] MEDS: POLYVINYL ALCOHOL 15 ML BOTTLE EACHEYE SCH ×3 (05:23→18:05)
[2022-07-05] MEDS: PANTOPRAZOLE 40 MG/PACK PACK GT SCH (05:23)
[2022-07-05] MEDS: BLOOD SUGAR DIAGNOSTIC 1 EACH STRIP IN SCH ×3 (05:31→18:05)
[2022-07-05] MEDS: INSULIN REGULAR, HUMAN 100 UNIT/ML 3 ML VIAL SQ PRN ×3 (05:31→18:12)
[2022-07-05 07:23] VITALS: BP 151/78
[2022-07-05] MEDS: POTASSIUM CHLORIDE 20 MEQ POWDER PACKET GT SCH (09:00)
[2022-07-05] MEDS: FERROUS SULFATE (325 MG) 325 MG/TAB TABLET GT SCH (09:00)
[2022-07-05] MEDS: ACIDOPHILUS/BULGARICUS 1 EACH TAB.CHEW GT SCH ×2 (09:00→17:00)
[2022-07-05] MEDS: CALCIUM CARBONATE 500 MG TAB.CHEW GT SCH ×2 (09:00→17:00)
[2022-07-05] MEDS: BENEFIBER 4 GM 1 EA PACKET GT SCH ×3 (09:00→17:00)
[2022-07-05] MEDS: ZINC SULFATE 220 MG CAPSULE GT SCH (09:00)
[2022-07-05] MEDS: ASCORBIC ACID 500 MG TABLET GT SCH (09:00)
[2022-07-05] MEDS: ASPIRIN 81 MG TAB.CHEW GT SCH (09:00)
[2022-07-05] MEDS: ENOXAPARIN SODIUM 40 MG/0.4 ML DISP.SYRIN SQ SCH (09:00)
[2022-07-05] MEDS: VITAMINS A AND D 56.7 GM TUBE TP SCH ×4 (09:00→21:03)
[2022-07-05] MEDS: PROSOURCE / PROSTAT (PYXIS) 30 ML UDC GT SCH ×2 (09:00→17:00)
[2022-07-05] MEDS: CHOLESTYRAMINE/ASPARTAME 4 G/PKT PACKET GT SCH (09:53)
[2022-07-05 12:22] VITALS: BP 128/54
[2022-07-05] MEDS: LOPERAMIDE HCL UDC 2 MG/15 ML LIQUID GT PRN (18:13)
[2022-07-05] MEDS: VITAL AF 1.2 1,000 ML BOTTLE NG PRN (18:14)
[2022-07-05 20:15] VITALS: BP 105/61
--- NOTE | 2022-07-05 20:28 | NUR ---
Patient received on CA 28% 5L. Q6 breathing treatment given, tolerated well without adverse effect. Airway patent and secured, suction PRN. Spare trach and ambu bag at bedside. No respiratory distress noted at this time, will continue to monitor t/o shift.
[2022-07-05] MEDS: TAMSULOSIN 0.4 MG CAP.SR.24H GT SCH (21:03)
[2022-07-05] MEDS: MELATONIN 3 MG TABLET GT SCH (21:03)
[2022-07-05] MEDS: ATORVASTATIN 40 MG TABLET GT SCH (21:03)
[2022-07-05 23:54] VITALS: BP 110/58
[2022-07-06] MEDS: POLYVINYL ALCOHOL 15 ML BOTTLE EACHEYE SCH ×5 (00:35→23:40)
[2022-07-06] MEDS: BLOOD SUGAR DIAGNOSTIC 1 EACH STRIP IN SCH ×5 (00:35→23:40)
[2022-07-06] MEDS: INSULIN REGULAR, HUMAN 100 UNIT/ML 3 ML VIAL SQ PRN ×5 (00:37→23:40)
[2022-07-06] MEDS: ALBUTEROL FS 2.5 MG/3 ML VIAL.NEB NEB SCH ×4 (02:05→19:49)
[2022-07-06] MEDS: IV D5/0.45 NACL 1,000 ML IV SCH ×2 (02:30→15:00)
[2022-07-06] MEDS: LIPASE/PROTEASE/AMYLASE 1 EACH CAPSULE.DR GT SCH ×3 (05:34→20:20)
[2022-07-06] MEDS: PANTOPRAZOLE 40 MG/PACK PACK GT SCH (05:34)
[2022-07-06 07:31] VITALS: BP 127/69
[2022-07-06] MEDS: POTASSIUM CHLORIDE 20 MEQ POWDER PACKET GT SCH (09:00)
[2022-07-06] MEDS: ACIDOPHILUS/BULGARICUS 1 EACH TAB.CHEW GT SCH ×2 (09:00→17:18)
[2022-07-06] MEDS: BENEFIBER 4 GM 1 EA PACKET GT SCH ×3 (09:00→17:18)
[2022-07-06] MEDS: ASPIRIN 81 MG TAB.CHEW GT SCH (09:00)
[2022-07-06] MEDS: FERROUS SULFATE (325 MG) 325 MG/TAB TABLET GT SCH (09:00)
[2022-07-06] MEDS: ASCORBIC ACID 500 MG TABLET GT SCH (09:00)
[2022-07-06] MEDS: PROSOURCE / PROSTAT (PYXIS) 30 ML UDC GT SCH ×2 (09:00→17:18)
[2022-07-06] MEDS: ENOXAPARIN SODIUM 40 MG/0.4 ML DISP.SYRIN SQ SCH (09:00)
[2022-07-06] MEDS: CALCIUM CARBONATE 500 MG TAB.CHEW GT SCH ×2 (09:00→17:18)
[2022-07-06] MEDS: ZINC SULFATE 220 MG CAPSULE GT SCH (09:00)
[2022-07-06] MEDS: VITAMINS A AND D 56.7 GM TUBE TP SCH ×4 (09:00→20:20)
--- NOTE | 2022-07-06 09:33 | NUR ---
RT Pt received on CA 28% 5L. No signs of respiratory distress or SOB noted. Airway patent and secured. Pt suctioned. Resp TX given and tolerated well. Ambu bag and spare trach at bedside. Will continue to monitor closely
[2022-07-06] MEDS: CHOLESTYRAMINE/ASPARTAME 4 G/PKT PACKET GT SCH (09:51)
[2022-07-06 12:17] VITALS: BP 149/77
[2022-07-06 19:42] VITALS: BP 122/88
[2022-07-06] MEDS: TAMSULOSIN 0.4 MG CAP.SR.24H GT SCH (21:31)
[2022-07-06] MEDS: ATORVASTATIN 40 MG TABLET GT SCH (21:31)
[2022-07-06] MEDS: MELATONIN 3 MG TABLET GT SCH (21:31)
[2022-07-06 23:47] VITALS: BP 115/72
[2022-07-07] MEDS: ALBUTEROL FS 2.5 MG/3 ML VIAL.NEB NEB SCH ×4 (01:31→19:55)
[2022-07-07] MEDS: IV D5/0.45 NACL 1,000 ML IV SCH ×2 (02:36→15:00)
[2022-07-07] MEDS: POLYVINYL ALCOHOL 15 ML BOTTLE EACHEYE SCH ×3 (05:32→17:53)
[2022-07-07] MEDS: BLOOD SUGAR DIAGNOSTIC 1 EACH STRIP IN SCH ×3 (05:32→17:53)
[2022-07-07] MEDS: LIPASE/PROTEASE/AMYLASE 1 EACH CAPSULE.DR GT SCH ×3 (05:32→21:49)
[2022-07-07] MEDS: PANTOPRAZOLE 40 MG/PACK PACK GT SCH (05:32)
[2022-07-07] MEDS: INSULIN REGULAR, HUMAN 100 UNIT/ML 3 ML VIAL SQ PRN ×2 (05:34→11:39)
[2022-07-07] MEDS: VITAL AF 1.2 1,000 ML BOTTLE NG PRN (06:56)
[2022-07-07 07:00] VITALS: BP 131/76
[2022-07-07] MEDS: CHOLESTYRAMINE/ASPARTAME 4 G/PKT PACKET GT SCH (09:12)
[2022-07-07] MEDS: ACIDOPHILUS/BULGARICUS 1 EACH TAB.CHEW GT SCH ×2 (09:12→16:38)
[2022-07-07] MEDS: PROSOURCE / PROSTAT (PYXIS) 30 ML UDC GT SCH ×2 (09:12→16:38)
[2022-07-07] MEDS: ASPIRIN 81 MG TAB.CHEW GT SCH (09:12)
[2022-07-07] MEDS: ZINC SULFATE 220 MG CAPSULE GT SCH (09:12)
[2022-07-07] MEDS: BENEFIBER 4 GM 1 EA PACKET GT SCH ×3 (09:12→16:38)
[2022-07-07] MEDS: FERROUS SULFATE (325 MG) 325 MG/TAB TABLET GT SCH (09:12)
[2022-07-07] MEDS: CALCIUM CARBONATE 500 MG TAB.CHEW GT SCH ×2 (09:12→16:38)
[2022-07-07] MEDS: ASCORBIC ACID 500 MG TABLET GT SCH (09:12)
[2022-07-07] MEDS: POTASSIUM CHLORIDE 20 MEQ POWDER PACKET GT SCH (09:12)
[2022-07-07] MEDS: ENOXAPARIN SODIUM 40 MG/0.4 ML DISP.SYRIN SQ SCH (09:13)
[2022-07-07] MEDS: VITAMINS A AND D 56.7 GM TUBE TP SCH ×4 (09:13→21:49)
[2022-07-07 11:59] VITALS: BP 137/63
[2022-07-07 19:07] VITALS: BP 140/64
[2022-07-07] MEDS: MELATONIN 3 MG TABLET GT SCH (21:49)
[2022-07-07] MEDS: ATORVASTATIN 40 MG TABLET GT SCH (21:49)
[2022-07-07] MEDS: TAMSULOSIN 0.4 MG CAP.SR.24H GT SCH (21:49)
[2022-07-08] MEDS: BLOOD SUGAR DIAGNOSTIC 1 EACH STRIP IN SCH ×4 (00:08→17:26)
[2022-07-08] MEDS: POLYVINYL ALCOHOL 15 ML BOTTLE EACHEYE SCH ×4 (00:08→17:26)
[2022-07-08] MEDS: INSULIN REGULAR, HUMAN 100 UNIT/ML 3 ML VIAL SQ PRN ×4 (00:10→17:26)
[2022-07-08] MEDS: VITAL AF 1.2 1,000 ML BOTTLE NG PRN ×2 (00:33→18:34)
[2022-07-08] MEDS: ALBUTEROL FS 2.5 MG/3 ML VIAL.NEB NEB SCH ×4 (02:01→18:34)
[2022-07-08] MEDS: IV D5/0.45 NACL 1,000 ML IV SCH ×2 (03:33→19:00)
[2022-07-08] MEDS: LIPASE/PROTEASE/AMYLASE 1 EACH CAPSULE.DR GT SCH ×3 (05:27→20:04)
[2022-07-08] MEDS: PANTOPRAZOLE 40 MG/PACK PACK GT SCH (05:27)
[2022-07-08 07:46] VITALS: BP 123/82
[2022-07-08] MEDS: CHOLESTYRAMINE/ASPARTAME 4 G/PKT PACKET GT SCH (08:04)
[2022-07-08] MEDS: ASPIRIN 81 MG TAB.CHEW GT SCH (09:06)
[2022-07-08] MEDS: BENEFIBER 4 GM 1 EA PACKET GT SCH ×3 (09:06→17:25)
[2022-07-08] MEDS: FERROUS SULFATE (325 MG) 325 MG/TAB TABLET GT SCH (09:06)
[2022-07-08] MEDS: CALCIUM CARBONATE 500 MG TAB.CHEW GT SCH ×2 (09:07→17:25)
[2022-07-08] MEDS: ASCORBIC ACID 500 MG TABLET GT SCH (09:07)
[2022-07-08] MEDS: ZINC SULFATE 220 MG CAPSULE GT SCH (09:07)
[2022-07-08] MEDS: POTASSIUM CHLORIDE 20 MEQ POWDER PACKET GT SCH (09:07)
[2022-07-08] MEDS: ACIDOPHILUS/BULGARICUS 1 EACH TAB.CHEW GT SCH ×2 (09:07→17:25)
[2022-07-08] MEDS: PROSOURCE / PROSTAT (PYXIS) 30 ML UDC GT SCH ×2 (09:07→17:25)
[2022-07-08] MEDS: VITAMINS A AND D 56.7 GM TUBE TP SCH ×4 (09:08→20:04)
[2022-07-08] MEDS: ENOXAPARIN SODIUM 40 MG/0.4 ML DISP.SYRIN SQ SCH (09:08)
[2022-07-08] MEDS: LOPERAMIDE HCL UDC 2 MG/15 ML LIQUID GT PRN ×2 (12:59→17:27)
[2022-07-08 20:07] VITALS: BP 126/71
[2022-07-08] MEDS: TAMSULOSIN 0.4 MG CAP.SR.24H GT SCH (21:29)
[2022-07-08] MEDS: MELATONIN 3 MG TABLET GT SCH (21:29)
[2022-07-08] MEDS: ATORVASTATIN 40 MG TABLET GT SCH (21:29)
[2022-07-09 00:09] VITALS: BP 120/62
[2022-07-09] MEDS: BLOOD SUGAR DIAGNOSTIC 1 EACH STRIP IN SCH ×5 (00:16→23:47)
[2022-07-09] MEDS: INSULIN REGULAR, HUMAN 100 UNIT/ML 3 ML VIAL SQ PRN ×5 (00:16→23:47)
[2022-07-09] MEDS: POLYVINYL ALCOHOL 15 ML BOTTLE EACHEYE SCH ×5 (00:16→23:47)
[2022-07-09] MEDS: ALBUTEROL FS 2.5 MG/3 ML VIAL.NEB NEB SCH ×4 (00:39→20:16)
[2022-07-09] MEDS: LIPASE/PROTEASE/AMYLASE 1 EACH CAPSULE.DR GT SCH ×3 (05:01→21:25)
[2022-07-09] MEDS: PANTOPRAZOLE 40 MG/PACK PACK GT SCH (05:03)
[2022-07-09] MEDS: IV D5/0.45 NACL 1,000 ML IV SCH ×2 (05:30→17:00)
[2022-07-09 07:21] LABS: BASOPHILS % (AUTO) 1.2 % (0.0-2.0); EOSINOPHILS % (AUTO) 3.4 % (0.0-6.0); HEMATOCRIT 26 % (39-51); HEMOGLOBIN 8.5 g/dL (13.5-17.5); LYMPHOCYTES % (AUTO) 24.5 % (20.0-44.0); MEAN CORPUSCULAR HGB CONC 32 g/dl (31.0-36.0); MEAN CORPUSCULAR VOLUME 80 fL (80-96); MONOCYTES # (AUTO) 0.5 K/uL (0.1-1.30); MONOCYTES % (AUTO) 11.6 % (2.0-12.0); NEUTROPHILS # (AUTO) 2.3 K/uL (1.8-8.9); NEUTROPHILS % (AUTO) 59.3 % (43.0-81.0); PLATELET COUNT (AUTO) 327 K/uL (150-450); RED BLOOD CELL COUNT(AUTO) 3.29 MIL/uL (4.5-6.0); WHITE BLOOD COUNT (AUTO) 3.9 K/uL (4.3-11.0)
[2022-07-09 07:38] VITALS: BP 160/76
--- NOTE | 2022-07-09 07:40 | NUR ---
RT NOTE: PT RECEIVED STABLE UNABLE TO FOLLOW COMMANDS. REACTIVE TO STIM. PT TRACH PATENT AND SECURE. PT ON CA ON CORRECT LITER FLOW. BAG AND MASK AT BEDSIDE AND SPARE TRACH. PT SHOWS NO SIGNS OF DISTRESS. BILAT BREATH SOUNDS AND CHEST RISE OBSERVED WILL CONTINUE CURRENT THERAPY. Addendum: 07/09/22 at 1714 by SHELTON MARION RT Amended: Links added.
[2022-07-09] MEDS: BENEFIBER 4 GM 1 EA PACKET GT SCH ×3 (09:00→17:16)
[2022-07-09] MEDS: CALCIUM CARBONATE 500 MG TAB.CHEW GT SCH ×2 (09:04→17:17)
[2022-07-09] MEDS: CHOLESTYRAMINE/ASPARTAME 4 G/PKT PACKET GT SCH (09:04)
[2022-07-09] MEDS: ASCORBIC ACID 500 MG TABLET GT SCH (09:04)
[2022-07-09] MEDS: FERROUS SULFATE (325 MG) 325 MG/TAB TABLET GT SCH (09:04)
[2022-07-09] MEDS: ZINC SULFATE 220 MG CAPSULE GT SCH (09:04)
[2022-07-09] MEDS: ACIDOPHILUS/BULGARICUS 1 EACH TAB.CHEW GT SCH ×2 (09:04→17:16)
[2022-07-09] MEDS: PROSOURCE / PROSTAT (PYXIS) 30 ML UDC GT SCH ×2 (09:04→17:17)
[2022-07-09] MEDS: ASPIRIN 81 MG TAB.CHEW GT SCH (09:04)
[2022-07-09] MEDS: VITAMINS A AND D 56.7 GM TUBE TP SCH ×4 (09:05→21:25)
[2022-07-09] MEDS: ENOXAPARIN SODIUM 40 MG/0.4 ML DISP.SYRIN SQ SCH (09:05)
[2022-07-09 10:06] LABS: CALCIUM, SERUM 7.6 mg/dL (8.5-10.1); CREATININE 0.6 mg/dL (0.6-1.3)
[2022-07-09 10:11] LABS: POTASSIUM 2.8 mmol/L (3.5-5.1)
--- NOTE | 2022-07-09 10:25 | NUR ---
Received a call from Gopi Murrell regarding laboratory results, potassium level 2.8, results relayed to charge nurse.
[2022-07-09] MEDS ORDERED: POTASSIUM CHLORIDE 20 MEQ POWDER PACKET PO SCH (12:00)
[2022-07-09] MEDS: LOPERAMIDE HCL UDC 2 MG/15 ML LIQUID GT PRN ×2 (12:15→21:26)
[2022-07-09] MEDS ORDERED: POTASSIUM CHLORIDE 20 MEQ/15 ML PO SCH (12:50)
[2022-07-09 13:09] VITALS: BP 138/63
[2022-07-09 16:07] LABS: BAND % (MANUAL) 1 % (0.0-5.0); BASOPHILS % (MANUAL) 1 % (0.0-2.0); EOSINOPHILS % (MANUAL) 3 % (0-4); LYMPHOCYTES % (MANUAL) 25 % (16-48); MONOCYTES % (MANUAL) 10 % (0-11.0)
[2022-07-09 16:08] LABS: NEUTROPHILS % (MANUAL) 60 (42-76)
--- NOTE | 2022-07-09 16:32 | NUR ---
Pt's visited and expressed concern about loose stools. Pt's stools are not pale in color anymore. Stools are sometimes beige and sometimes yellow in color. Stools are now more pasty than watery. She requested for Dr Mack to call her. Notified Dr Mack of her request. Also notified Dr Mack regarding stool and blood sugars. Informed him that pt has not yet been seen by GI again and that Dr Mitchell ordered to increase Pancreaze. Dr Mack said to wait for Dr Smith to be bond manager and ask him to see pt since he has already seen the pt. Relayed labs to Dr Mack and informed him of BEEKEEPER Reshma Christine's order to give extra KCl 40 mEq via GT x 2 today, increase KCl from 20 to 40 mEq via GT daily and do weekly BMP. Pt's aware of labs and new orders.
--- NOTE | 2022-07-09 16:59 | NUR ---
SHAHRAM Christine said to continue D5 1/2 NS IV hydration and frequent labs will be done.
[2022-07-09 19:59] VITALS: BP 140/60
[2022-07-09] MEDS: ATORVASTATIN 40 MG TABLET GT SCH (21:25)
[2022-07-09] MEDS: MELATONIN 3 MG TABLET GT SCH (21:25)
[2022-07-09] MEDS: TAMSULOSIN 0.4 MG CAP.SR.24H GT SCH (21:25)
[2022-07-09] MEDS: VITAL AF 1.2 1,000 ML BOTTLE NG PRN (21:26)
[2022-07-10 00:10] VITALS: BP 127/70
[2022-07-10] MEDS: ALBUTEROL FS 2.5 MG/3 ML VIAL.NEB NEB SCH ×4 (02:17→18:53)
[2022-07-10] MEDS: PANTOPRAZOLE 40 MG/PACK PACK GT SCH (05:43)
[2022-07-10] MEDS: POLYVINYL ALCOHOL 15 ML BOTTLE EACHEYE SCH ×4 (05:43→23:59)
[2022-07-10] MEDS: BLOOD SUGAR DIAGNOSTIC 1 EACH STRIP IN SCH ×4 (05:43→23:55)
[2022-07-10] MEDS: LIPASE/PROTEASE/AMYLASE 1 EACH CAPSULE.DR GT SCH ×3 (05:43→21:35)
[2022-07-10] MEDS: INSULIN REGULAR, HUMAN 100 UNIT/ML 3 ML VIAL SQ PRN ×4 (05:43→23:56)
[2022-07-10 07:37] LABS: CALCIUM, SERUM 7.3 mg/dL (8.5-10.1); CREATININE 0.6 mg/dL (0.6-1.3); MAGNESIUM 1.4 mg/dL (1.8-2.4)
--- NOTE | 2022-07-10 08:00 | NUR ---
RT NOTE: PT RECEIVED STABLE UNABLE TO FOLLOW COMMANDS. REACTIVE TO STIM. PT TRACH PATENT AND SECURE. PT ON CA ON CORRECT LITER FLOW. BAG AND MASK AT BEDSIDE AND SPARE TRACH. PT SHOWS NO SIGNS OF DISTRESS. BILAT BREATH SOUNDS AND CHEST RISE OBSERVED WILL CONTINUE CURRENT THERAPY. Addendum: 07/10/22 at 1008 by SHELTON MARION RT Amended: Links added.
[2022-07-10 08:16] VITALS: BP 136/100
[2022-07-10] MEDS: IV D5/0.45 NACL 1,000 ML IV SCH ×2 (08:20→20:15)
[2022-07-10] MEDS: CALCIUM CARBONATE 500 MG TAB.CHEW GT SCH ×2 (09:00→17:25)
[2022-07-10] MEDS: ASPIRIN 81 MG TAB.CHEW GT SCH (09:00)
[2022-07-10] MEDS: PROSOURCE / PROSTAT (PYXIS) 30 ML UDC GT SCH ×2 (09:00→17:25)
[2022-07-10] MEDS: POTASSIUM CHLORIDE GT SCH (09:00)
[2022-07-10] MEDS: VITAMINS A AND D 56.7 GM TUBE TP SCH ×4 (09:00→21:36)
[2022-07-10] MEDS: FERROUS SULFATE (325 MG) 325 MG/TAB TABLET GT SCH (09:00)
[2022-07-10] MEDS: ZINC SULFATE 220 MG CAPSULE GT SCH (09:00)
[2022-07-10] MEDS: ENOXAPARIN SODIUM 40 MG/0.4 ML DISP.SYRIN SQ SCH (09:00)
[2022-07-10] MEDS: ASCORBIC ACID 500 MG TABLET GT SCH (09:00)
[2022-07-10] MEDS: BENEFIBER 4 GM 1 EA PACKET GT SCH ×3 (09:00→17:25)
[2022-07-10] MEDS: ACIDOPHILUS/BULGARICUS 1 EACH TAB.CHEW GT SCH ×2 (09:00→17:25)
--- NOTE | 2022-07-10 09:08 | NUR ---
Seen by Dr. Colón no new order given at this time.
[2022-07-10] MEDS: CHOLESTYRAMINE/ASPARTAME 4 G/PKT PACKET GT SCH (09:27)
--- NOTE | 2022-07-10 11:10 | NUR ---
Relayed CBC (07/09/22) and BMP (07/10/22) result to Dr. Mack with K+ level 3.0, Ca+ 7.3, Mg 1.4., with order to give 4 gm of Magnesium IV. Orders carried out.
[2022-07-10 12:04] VITALS: BP 144/85
[2022-07-10] MEDS: Magnesium 1GM/D5W 100ML PREMIX 100 ML IV SCH ×4 (13:59→18:05)
--- NOTE | 2022-07-10 16:08 | NUR ---
Family Invite to IDT: SW emailed the patient's , Rosaline to invite them to participate in 07/12/22 12:30p IDT meeting via phone conference. PIERRE will follow up accordingly.
[2022-07-10] MEDS: VITAL AF 1.2 1,000 ML BOTTLE NG PRN (17:29)
[2022-07-10] MEDS: LOPERAMIDE HCL UDC 2 MG/15 ML LIQUID GT PRN (18:23)
[2022-07-10 19:11] VITALS: BP 112/67
[2022-07-10] MEDS: MELATONIN 3 MG TABLET GT SCH (21:36)
[2022-07-10] MEDS: TAMSULOSIN 0.4 MG CAP.SR.24H GT SCH (21:36)
[2022-07-10] MEDS: ATORVASTATIN 40 MG TABLET GT SCH (21:36)
--- NOTE | 2022-07-10 23:52 | NUR ---
BS 43mg\dl D50 given IV as ordered. Patient awake. Will continue to monitor.
[2022-07-11] MEDS: ALBUTEROL FS 2.5 MG/3 ML VIAL.NEB NEB SCH ×4 (00:31→19:38)
[2022-07-11 00:32] VITALS: BP 121/68
--- NOTE | 2022-07-11 00:33 | NUR ---
BS 148 mg\dl BP 121\68 HR 75. Sleeping but arousable.
[2022-07-11] MEDS: LOPERAMIDE HCL UDC 2 MG/15 ML LIQUID GT PRN ×3 (01:40→20:18)
[2022-07-11] MEDS: LIPASE/PROTEASE/AMYLASE 1 EACH CAPSULE.DR GT SCH ×3 (05:19→20:18)
[2022-07-11] MEDS: INSULIN REGULAR, HUMAN 100 UNIT/ML 3 ML VIAL SQ PRN ×4 (05:19→23:46)
[2022-07-11] MEDS: BLOOD SUGAR DIAGNOSTIC 1 EACH STRIP IN SCH ×4 (05:19→23:46)
[2022-07-11] MEDS: POLYVINYL ALCOHOL 15 ML BOTTLE EACHEYE SCH ×4 (05:19→23:45)
[2022-07-11] MEDS: PANTOPRAZOLE 40 MG/PACK PACK GT SCH (05:19)
[2022-07-11] MEDS: IV D5/0.45 NACL 1,000 ML IV SCH ×2 (06:45→20:30)
[2022-07-11 07:23] VITALS: BP 145/78
[2022-07-11] MEDS: CHOLESTYRAMINE/ASPARTAME 4 G/PKT PACKET GT SCH (08:36)
[2022-07-11] MEDS: BENEFIBER 4 GM 1 EA PACKET GT SCH ×3 (09:50→17:56)
[2022-07-11] MEDS: POTASSIUM CHLORIDE GT SCH (09:50)
[2022-07-11] MEDS: CALCIUM CARBONATE 500 MG TAB.CHEW GT SCH ×2 (09:50→17:56)
[2022-07-11] MEDS: FERROUS SULFATE (325 MG) 325 MG/TAB TABLET GT SCH (09:50)
[2022-07-11] MEDS: PROSOURCE / PROSTAT (PYXIS) 30 ML UDC GT SCH ×2 (09:50→17:56)
[2022-07-11] MEDS: ASPIRIN 81 MG TAB.CHEW GT SCH (09:50)
[2022-07-11] MEDS: ACIDOPHILUS/BULGARICUS 1 EACH TAB.CHEW GT SCH ×2 (09:50→17:56)
[2022-07-11] MEDS: ZINC SULFATE 220 MG CAPSULE GT SCH (09:51)
[2022-07-11] MEDS: ENOXAPARIN SODIUM 40 MG/0.4 ML DISP.SYRIN SQ SCH (09:51)
[2022-07-11] MEDS: VITAMINS A AND D 56.7 GM TUBE TP SCH ×4 (09:51→20:18)
[2022-07-11] MEDS: ASCORBIC ACID 500 MG TABLET GT SCH (09:51)
[2022-07-11] MEDS: VITAL AF 1.2 1,000 ML BOTTLE NG PRN (09:52)
--- NOTE | 2022-07-11 10:27 | NUR ---
Notified Dr Mack that pt's blood sugar was 43 at midnight, D50 was given and blood sugar went up to 148. Dr Mack ordered to do CT abdomen (pancreas) with contrast. Notified pt's .
[2022-07-11 12:19] VITALS: BP 142/85
--- NOTE | 2022-07-11 12:28 | NUR ---
Called radiology to follow-up CT scan abdomen with contrast and was told that it will be done today before midnight.
--- NOTE | 2022-07-11 16:30 | NUR ---
Followed up CT abdomen with radiology. Spoke with Agustin. He said they are very busy but will supervisor opening and picking pt now.
--- NOTE | 2022-07-11 17:31 | NUR ---
Pt had CT abdomen with contrast done. He was accompanied by ELVA Stroud and RT Nghia to radiology. Pt tolerated procedure well. CT of pelvis could not be performed due to pt's contractures.
--- NOTE | 2022-07-11 18:25 | NUR ---
PATIENT WERE TAKING FOR CT SCAN W/O ISSUE. PATIENT REMAIN STABLE DURING PROCEDURE. AND ARRIVED BACK AT THE ROOM AND CONNECTED TO C/A AND IN STABLE STATE.
[2022-07-11 19:09] VITALS: BP 116/68
[2022-07-11] MEDS: ATORVASTATIN 40 MG TABLET GT SCH (21:09)
[2022-07-11] MEDS: MELATONIN 3 MG TABLET GT SCH (21:09)
[2022-07-11] MEDS: TAMSULOSIN 0.4 MG CAP.SR.24H GT SCH (21:09)
[2022-07-12 01:01] VITALS: BP 112/72
[2022-07-12] MEDS: ALBUTEROL FS 2.5 MG/3 ML VIAL.NEB NEB SCH ×4 (01:22→19:33)
[2022-07-12] MEDS: LIPASE/PROTEASE/AMYLASE 1 EACH CAPSULE.DR GT SCH ×3 (05:07→21:00)
[2022-07-12] MEDS: PANTOPRAZOLE 40 MG/PACK PACK GT SCH (05:07)
[2022-07-12] MEDS: POLYVINYL ALCOHOL 15 ML BOTTLE EACHEYE SCH ×3 (05:07→17:32)
[2022-07-12] MEDS: VITAL AF 1.2 1,000 ML BOTTLE NG PRN (05:08)
[2022-07-12] MEDS: BLOOD SUGAR DIAGNOSTIC 1 EACH STRIP IN SCH ×3 (05:18→17:44)
[2022-07-12] MEDS: INSULIN REGULAR, HUMAN 100 UNIT/ML 3 ML VIAL SQ PRN ×3 (05:18→17:45)
[2022-07-12] MEDS: IV D5/0.45 NACL 1,000 ML IV SCH (06:52)
[2022-07-12 07:19] VITALS: BP 148/77
[2022-07-12] MEDS: CHOLESTYRAMINE/ASPARTAME 4 G/PKT PACKET GT SCH (08:34)
[2022-07-12] MEDS: ASPIRIN 81 MG TAB.CHEW GT SCH (09:39)
[2022-07-12] MEDS: POTASSIUM CHLORIDE GT SCH (09:39)
[2022-07-12] MEDS: ACIDOPHILUS/BULGARICUS 1 EACH TAB.CHEW GT SCH ×2 (09:39→17:32)
[2022-07-12] MEDS: BENEFIBER 4 GM 1 EA PACKET GT SCH ×3 (09:39→17:32)
[2022-07-12] MEDS: FERROUS SULFATE (325 MG) 325 MG/TAB TABLET GT SCH (09:39)
[2022-07-12] MEDS: ASCORBIC ACID 500 MG TABLET GT SCH (09:40)
[2022-07-12] MEDS: PROSOURCE / PROSTAT (PYXIS) 30 ML UDC GT SCH ×2 (09:40→17:32)
[2022-07-12] MEDS: ZINC SULFATE 220 MG CAPSULE GT SCH (09:40)
[2022-07-12] MEDS: ENOXAPARIN SODIUM 40 MG/0.4 ML DISP.SYRIN SQ SCH (09:40)
[2022-07-12] MEDS: CALCIUM CARBONATE 500 MG TAB.CHEW GT SCH ×2 (09:40→17:32)
[2022-07-12] MEDS: VITAMINS A AND D 56.7 GM TUBE TP SCH ×4 (09:40→21:20)
[2022-07-12] MEDS: LOPERAMIDE HCL UDC 2 MG/15 ML LIQUID GT PRN (09:41)
--- NOTE | 2022-07-12 10:00 | NUR ---
Notified Dr. Mack of [facility] CT scan result and BS reading for the past couple of days. VS 97.3, 85, 18, 99% 148/77. He said he will round today to review result and assess patient. Patient continue on IVF D5 NS at 80 cc/hr. PICC line in the R upper arm patent.
[2022-07-12 12:06] VITALS: BP 157/58
--- NOTE | 2022-07-12 14:05 | NUR ---
INTERDISCIPLINARY PLAN OF CARE CONFERENCE took place today. The patients , Rosaline Brito [phone] Colón and Interdisciplinary team discussed the plan of care in detail. Current orders as well as treatments and medications were reviewed.
--- NOTE | 2022-07-12 18:00 | NUR ---
Patient's visited earlier today and informed of CT scan result. Dr. Mack reviewed CT scan of abdomen result and made aware of blood sugar at noon which is 65 mg/dl. MD ordered to hold GT feeding, change IVF to D10NS at 80cc/hr.and f/u labs CBC, BMP in AM. Berkley from [facility] IV department said they don't have D10ns, SO pharmacy informed and will provide IVF. Order carried out.
--- NOTE | 2022-07-12 18:10 | NUR ---
With regards to the CT scan result showing percutaneous ostomy in the transverse colon, Dr. Mack said to run it with surgeon cable television program director. Spoke with Dr. Paredes cable television program director, said he will see patient in AM. Dr. Mack made aware.
[2022-07-12] MEDS ORDERED: Sodium Chloride 154 MEQ in IV 10% DEXTROSE 1,000 ML IV PRN (18:30)
[2022-07-12] MEDS ORDERED: Sodium Chloride 154 MEQ in IV 10% DEXTROSE 1,000 ML IV SCH (18:30)
[2022-07-12] MEDS ORDERED: IV 10% DEXTROSE 1,000 ML IV PRN (18:30)
--- NOTE | 2022-07-12 18:35 | NUR ---
Received an order from Dr. Mack to transfer patient to medical floor for PEG reinsertion. Dr. Mack said he spoke with patient's Rosaline regarding CT scan result. He said JEWELRY CONSULTANT Zhou Knox will admit the patient, however received a call from SHAHRAM Knox, saying JEWELRY CONSULTANT Asuncion Greco will assess patient in subacute and will decide which unit to transfer the patient in acute. Nursing car and yard supervisor informed of transfer order. Rosaline informed. Endorsed to incoming shift.
[2022-07-12 19:21] VITALS: BP 134/85
[2022-07-12] MEDS: ATORVASTATIN 40 MG TABLET GT SCH (21:52)
[2022-07-12] MEDS: TAMSULOSIN 0.4 MG CAP.SR.24H GT SCH (21:52)
[2022-07-12] MEDS: MELATONIN 3 MG TABLET GT SCH (21:53)
--- NOTE | 2022-07-12 22:30 | NUR ---
Patient will be transfer to room 307-1 ,spoke to SHAHRAM Greco regarding transfers she said will see patient and will placed admitting orders. Report given to CHIKI Rowland in med surg,awaiting for the room,will call me back if room is ready.
[2022-07-13] MEDS: POLYVINYL ALCOHOL 15 ML BOTTLE EACHEYE SCH
[2022-07-13] MEDS: BLOOD SUGAR DIAGNOSTIC 1 EACH STRIP IN SCH (00:04)
[2022-07-13] MEDS: INSULIN REGULAR, HUMAN 100 UNIT/ML 3 ML VIAL SQ PRN (00:05)
--- NOTE | 2022-07-13 00:21 | NUR ---
Patient moved to [facility] accompanied with RT and nursing staffs,endorsed to Kashif RN for continuity of care.Stable condition. Placed 7 days bed hold.
--- NOTE | 2022-07-13 00:22 | NUR ---
Pt transported to room 307-1 with dyer assistant at bedside following acls protocol with ambu bag and spare trach at bedside. Pt set up on cool aerosol 28% 5 lpm. No SOB or respiratory distress noted at this time. Trach is patent, midline and secured.
[2022-07-13] MEDS: ALBUTEROL FS 2.5 MG/3 ML VIAL.NEB NEB SCH (01:45)
[2022-07-13] MEDS ORDERED: POTA20TA83 GT (09:23)
[2022-07-13] MEDS ORDERED: CHOL4PAC GT (09:23)
[2022-07-13] MEDS ORDERED: LIPA1CAP27 GT (09:23)
[2022-07-13] MEDS ORDERED: SODIUM CHLORIDE IV (09:23)
[2022-07-13] MEDS ORDERED: BENEFIBER GT (09:23)
[2022-07-13] MEDS ORDERED: LOPE2TAB25 GT (09:23)
[2022-07-14] MEDS ORDERED: ROCURONIUM BROMIDE 50 MG/5 ML ONE (12:03)
[2022-07-14] MEDS ORDERED: FENTANYL PF 100MCG/2ML AMPUL ONE (12:03)
[2022-07-16] MEDS ORDERED: NUT.237L65 GT ×2 (10:28→18:56)
--- NOTE | 2022-07-16 17:36 | NUR ---
RT Patient came back from [facility]. Received on cool aerosol 28% (5LPM). Trach patent and secured. Back up trach and ambu bag at bedside. No SOB or respiratory distress noted at this time. will continue to monitor
[2022-07-16 18:25] VITALS: BP 117/75
--- NOTE | 2022-07-16 18:32 | NUR ---
Resident readmitted to sub acute under the services of Dr. Mack with the ff: diagnosis, respiratory failure with trach, GT placement, toxic metabolic encephalopathy, HTN, dyslipidemia, BPH, DM, anemia of chronic disease, hx. of Alzheimer's dementia, hypotension, hyperlipidemia, septic shock, S/P laparoscopy, closure of gastrocolonic fistula and placement of a new percutaneous gastrostomy feeding tube. Body check done, noted with 3 surgical site in the abdomen with jose g and GT secured with 4 stitches. Verified admission orders with Dr. Mack, ordered to DC Pancrease and continue previous subacute orders. Patient's Rosaline notified of readmission. Orders faxed to [facility] and [facility].
[2022-07-16] MEDS ORDERED: MAG30ORA GT (18:56)
[2022-07-16] MEDS ORDERED: CHOL4PAC9 GT (18:56)
[2022-07-16] MEDS ORDERED: MAGN400O6 GT (18:56)
[2022-07-16] MEDS: ALBUTEROL FS 2.5 MG/3 ML VIAL.NEB NEB SCH (19:27)
[2022-07-16] MEDS ORDERED: ACETAMINOPHEN 650 MG/20 ML UDC- SA PATIENTS-FEVER ONLY GT PRN (19:30)
[2022-07-16] MEDS ORDERED: ACETAMINOPHEN 650 MG/20 ML UDC- SA PATIENTS-PAIN ONLY GT PRN (19:30)
[2022-07-16] MEDS ORDERED: LOPERAMIDE HCL UDC 2 MG/15 ML LIQUID GT PRN (19:30)
[2022-07-16] MEDS ORDERED: CLONIDINE HCL 0.1 MG TABLET GT PRN (19:30)
[2022-07-16] MEDS ORDERED: MAG HYDROX/AL HYDROX/SIMETH 30 ML UDC PO PRN (19:30)
[2022-07-16] MEDS ORDERED: DEXTROSE 50%-WATER 50 ML DISP.SYRIN IV PRN (19:30)
[2022-07-16 20:36] VITALS: BP 131/60
[2022-07-16] MEDS: VITAMINS A AND D 56.7 GM TUBE TP SCH (21:54)
[2022-07-16] MEDS: TAMSULOSIN 0.4 MG CAP.SR.24H GT SCH (21:56)
[2022-07-16] MEDS: ATORVASTATIN 40 MG TABLET GT SCH (21:56)
[2022-07-16] MEDS: INSULIN REGULAR, HUMAN 100 UNIT/ML 3 ML VIAL SQ PRN (23:09)
[2022-07-16] MEDS: BLOOD SUGAR DIAGNOSTIC 1 EACH STRIP IN SCH (23:09)
[2022-07-17] VITALS: BP 107/67
[2022-07-17] MEDS ORDERED: POLYVINYL ALCOHOL 15 ML BOTTLE EACHEYE PRN
[2022-07-17] MEDS: ALBUTEROL FS 2.5 MG/3 ML VIAL.NEB NEB SCH ×4 (01:53→19:18)
[2022-07-17 04:00] VITALS: BP 115/61
[2022-07-17] MEDS: BLOOD SUGAR DIAGNOSTIC 1 EACH STRIP IN SCH ×3 (05:25→17:25)
[2022-07-17] MEDS: INSULIN REGULAR, HUMAN 100 UNIT/ML 3 ML VIAL SQ PRN ×3 (05:26→18:04)
[2022-07-17 07:36] LABS: CALCIUM, SERUM 7.1 mg/dL (8.5-10.1); CREATININE 0.6 mg/dL (0.6-1.3); POTASSIUM 3.9 mmol/L (3.5-5.1)
[2022-07-17 07:39] VITALS: BP 102/55
[2022-07-17] MEDS: CHOLESTYRAMINE/ASPARTAME 4 G/PKT PACKET GT SCH (09:29)
[2022-07-17] MEDS: PROSOURCE / PROSTAT (PYXIS) 30 ML UDC GT SCH ×2 (09:29→17:25)
[2022-07-17] MEDS: ACIDOPHILUS/BULGARICUS 1 EACH TAB.CHEW GT SCH ×2 (09:29→17:25)
[2022-07-17] MEDS: ASCORBIC ACID 500 MG TABLET GT SCH (09:29)
[2022-07-17] MEDS: ZINC SULFATE 220 MG CAPSULE GT SCH (09:29)
[2022-07-17] MEDS: ASPIRIN 81 MG TAB.CHEW GT SCH (09:29)
[2022-07-17] MEDS: FERROUS SULFATE (325 MG) 325 MG/TAB TABLET GT SCH (09:29)
[2022-07-17] MEDS: VITAMINS A AND D 56.7 GM TUBE TP SCH ×2 (09:31→21:59)
[2022-07-17] MEDS: ENOXAPARIN SODIUM 40 MG/0.4 ML DISP.SYRIN SQ SCH (09:31)
[2022-07-17 15:20] VITALS: BP 129/79
[2022-07-17] MEDS: VITAL AF 1.2 1,000 ML BOTTLE GT PRN (17:25)
[2022-07-17 20:16] VITALS: BP 141/82
[2022-07-17] MEDS: ATORVASTATIN 40 MG TABLET GT SCH (22:03)
[2022-07-17] MEDS: TAMSULOSIN 0.4 MG CAP.SR.24H GT SCH (22:03)
[2022-07-18] MEDS: BLOOD SUGAR DIAGNOSTIC 1 EACH STRIP IN SCH ×5 (00:43→23:50)
[2022-07-18] MEDS: INSULIN REGULAR, HUMAN 100 UNIT/ML 3 ML VIAL SQ PRN ×4 (00:43→17:53)
[2022-07-18] MEDS: ALBUTEROL FS 2.5 MG/3 ML VIAL.NEB NEB SCH ×4 (01:29→19:02)
--- NOTE | 2022-07-18 05:41 | NUR ---
PATIENT RECEIVED ON 28% AEROSOL T-TUBE, TOLERATING WITH NO DISTRESS/SOB NOTED. SUCTIONED FOR MINIMAL, THIN, WHITE SECRETIONS. GIVEN IN-LINE TREATMENTS WITH NO ADVERSE REACTIONS. AMBU BAG AT BEDSIDE. TRACH CARE DONE. Addendum: 07/18/22 at 0542 by GIANNA ARRINGTON RT Amended: Links added.
[2022-07-18 07:10] VITALS: BP 115/62
--- NOTE | 2022-07-18 09:12 | NUR ---
RT Patient received on cool aerosol 28% (5LPM). Breathing tx tolerated well. Suctioned thick yellow secretions. Trach patent and secured. Back up trach and ambu bag at bedside. No SOB or respiratory distress noted at this time.
[2022-07-18] MEDS: FERROUS SULFATE (325 MG) 325 MG/TAB TABLET GT SCH (09:26)
[2022-07-18] MEDS: ASPIRIN 81 MG TAB.CHEW GT SCH (09:26)
[2022-07-18] MEDS: ACIDOPHILUS/BULGARICUS 1 EACH TAB.CHEW GT SCH ×2 (09:27→17:34)
[2022-07-18] MEDS: ZINC SULFATE 220 MG CAPSULE GT SCH (09:27)
[2022-07-18] MEDS: CHOLESTYRAMINE/ASPARTAME 4 G/PKT PACKET GT SCH (09:27)
[2022-07-18] MEDS: PROSOURCE / PROSTAT (PYXIS) 30 ML UDC GT SCH ×2 (09:27→17:34)
[2022-07-18] MEDS: ASCORBIC ACID 500 MG TABLET GT SCH (09:27)
[2022-07-18] MEDS: ENOXAPARIN SODIUM 40 MG/0.4 ML DISP.SYRIN SQ SCH (09:28)
[2022-07-18] MEDS: VITAMINS A AND D 56.7 GM TUBE TP SCH ×2 (09:28→21:33)
[2022-07-18 13:10] VITALS: BP 109/70
[2022-07-18] MEDS: VITAL AF 1.2 1,000 ML BOTTLE GT PRN (17:35)
[2022-07-18 19:21] VITALS: BP 117/60
[2022-07-18] MEDS: TAMSULOSIN 0.4 MG CAP.SR.24H GT SCH (21:33)
[2022-07-18] MEDS: ATORVASTATIN 40 MG TABLET GT SCH (21:33)
[2022-07-18] MEDS: MELATONIN 3 MG TABLET GT SCH (21:33)
[2022-07-19] MEDS: ALBUTEROL FS 2.5 MG/3 ML VIAL.NEB NEB SCH ×4 (00:34→19:48)
[2022-07-19 00:36] VITALS: BP 126/58
[2022-07-19] MEDS: PANTOPRAZOLE 40 MG/PACK PACK GT SCH (05:33)
[2022-07-19] MEDS: VITAL AF 1.2 1,000 ML BOTTLE GT PRN ×2 (05:33→18:11)
[2022-07-19] MEDS: BLOOD SUGAR DIAGNOSTIC 1 EACH STRIP IN SCH ×4 (05:33→23:55)
[2022-07-19] MEDS: INSULIN REGULAR, HUMAN 100 UNIT/ML 3 ML VIAL SQ PRN ×2 (05:35→13:07)
[2022-07-19 07:32] VITALS: BP 125/60
[2022-07-19] MEDS: ACIDOPHILUS/BULGARICUS 1 EACH TAB.CHEW GT SCH ×2 (09:50→17:00)
[2022-07-19] MEDS: FERROUS SULFATE (325 MG) 325 MG/TAB TABLET GT SCH (09:50)
[2022-07-19] MEDS: ZINC SULFATE 220 MG CAPSULE GT SCH (09:51)
[2022-07-19] MEDS: PROSOURCE / PROSTAT (PYXIS) 30 ML UDC GT SCH ×2 (09:51→17:00)
[2022-07-19] MEDS: VITAMINS A AND D 56.7 GM TUBE TP SCH ×2 (09:51→21:00)
[2022-07-19] MEDS: ASPIRIN 81 MG TAB.CHEW GT SCH (09:51)
[2022-07-19] MEDS: ENOXAPARIN SODIUM 40 MG/0.4 ML DISP.SYRIN SQ SCH (09:51)
[2022-07-19] MEDS: ASCORBIC ACID 500 MG TABLET GT SCH (09:51)
[2022-07-19] MEDS: CHOLESTYRAMINE/ASPARTAME 4 G/PKT PACKET GT SCH (09:51)
[2022-07-19 11:33] VITALS: BP 132/62
[2022-07-19] MEDS: MAGNESIUM HYDROXIDE 30 ML UDC PO PRN (22:00)
[2022-07-19] MEDS: MELATONIN 3 MG TABLET GT SCH (22:15)
[2022-07-19] MEDS: ATORVASTATIN 40 MG TABLET GT SCH (22:15)
[2022-07-19] MEDS: TAMSULOSIN 0.4 MG CAP.SR.24H GT SCH (22:15)
[2022-07-20] MEDS: INSULIN REGULAR, HUMAN 100 UNIT/ML 3 ML VIAL SQ PRN ×4 (00:20→17:27)
[2022-07-20] MEDS: ALBUTEROL FS 2.5 MG/3 ML VIAL.NEB NEB SCH ×4 (01:38→18:42)
[2022-07-20] MEDS: PANTOPRAZOLE 40 MG/PACK PACK GT SCH (05:38)
[2022-07-20] MEDS: BLOOD SUGAR DIAGNOSTIC 1 EACH STRIP IN SCH ×3 (05:38→17:27)
[2022-07-20 08:00] VITALS: BP_SYST 133; BP_SYST 96; BP_DIAS 52; BP_DIAS 65
[2022-07-20] MEDS: ZINC SULFATE 220 MG CAPSULE GT SCH (09:12)
[2022-07-20] MEDS: CHOLESTYRAMINE/ASPARTAME 4 G/PKT PACKET GT SCH (09:12)
[2022-07-20] MEDS: VITAMINS A AND D 56.7 GM TUBE TP SCH ×2 (09:12→21:17)
[2022-07-20] MEDS: ENOXAPARIN SODIUM 40 MG/0.4 ML DISP.SYRIN SQ SCH (09:12)
[2022-07-20] MEDS: FERROUS SULFATE (325 MG) 325 MG/TAB TABLET GT SCH (09:12)
[2022-07-20] MEDS: ACIDOPHILUS/BULGARICUS 1 EACH TAB.CHEW GT SCH ×2 (09:12→16:28)
[2022-07-20] MEDS: ASPIRIN 81 MG TAB.CHEW GT SCH (09:12)
[2022-07-20] MEDS: PROSOURCE / PROSTAT (PYXIS) 30 ML UDC GT SCH ×2 (09:12→16:28)
[2022-07-20] MEDS: ASCORBIC ACID 500 MG TABLET GT SCH (09:12)
--- NOTE | 2022-07-20 09:20 | NUR ---
Seen and examined by Dr. Mack, made aware that patient's BM is no longer loose, and blood sugar in the low 200's or high 100's . He said in a couple of days he will evaluate his DM regimen and make adjustment with his insulin dose. Dr. Mack also expect patient to gain some weight, will update him of his weight next week.
[2022-07-20] MEDS: VITAL AF 1.2 1,000 ML BOTTLE GT PRN (14:01)
[2022-07-20] MEDS: BISACODYL SUPP (10 MG) 10 MG/SUPP.RECT SUPP.RECT RC PRN (16:28)
--- NOTE | 2022-07-20 18:25 | NUR ---
Patient's last BM on 07/18/22 @ 1833. Patient given MOM by NOC shift nurse Lorraine earlier this morning, not effective. Administered Dulcolax suppository rectally at 1630. Will endorse to incoming shift nurse.
[2022-07-20 19:54] VITALS: BP 108/65
[2022-07-20] MEDS: MELATONIN 3 MG TABLET GT SCH (21:17)
[2022-07-20] MEDS: ATORVASTATIN 40 MG TABLET GT SCH (21:17)
[2022-07-20] MEDS: TAMSULOSIN 0.4 MG CAP.SR.24H GT SCH (21:17)
[2022-07-20 23:35] VITALS: BP 124/60
[2022-07-21] MEDS: BLOOD SUGAR DIAGNOSTIC 1 EACH STRIP IN SCH ×4 (00:14→17:23)
[2022-07-21] MEDS: INSULIN REGULAR, HUMAN 100 UNIT/ML 3 ML VIAL SQ PRN ×4 (00:15→17:24)
[2022-07-21] MEDS: ALBUTEROL FS 2.5 MG/3 ML VIAL.NEB NEB SCH ×4 (00:33→19:51)
[2022-07-21] MEDS: PANTOPRAZOLE 40 MG/PACK PACK GT SCH (05:24)
[2022-07-21] MEDS: VITAL AF 1.2 1,000 ML BOTTLE GT PRN (06:31)
[2022-07-21 07:57] VITALS: BP 118/52
[2022-07-21] MEDS: ASCORBIC ACID 500 MG TABLET GT SCH (09:10)
[2022-07-21] MEDS: FERROUS SULFATE (325 MG) 325 MG/TAB TABLET GT SCH (09:10)
[2022-07-21] MEDS: ZINC SULFATE 220 MG CAPSULE GT SCH (09:10)
[2022-07-21] MEDS: CHOLESTYRAMINE/ASPARTAME 4 G/PKT PACKET GT SCH (09:10)
[2022-07-21] MEDS: PROSOURCE / PROSTAT (PYXIS) 30 ML UDC GT SCH ×2 (09:10→16:09)
[2022-07-21] MEDS: ACIDOPHILUS/BULGARICUS 1 EACH TAB.CHEW GT SCH ×2 (09:10→16:09)
[2022-07-21] MEDS: ENOXAPARIN SODIUM 40 MG/0.4 ML DISP.SYRIN SQ SCH (09:10)
[2022-07-21] MEDS: VITAMINS A AND D 56.7 GM TUBE TP SCH ×2 (09:10→21:34)
[2022-07-21] MEDS: ASPIRIN 81 MG TAB.CHEW GT SCH (09:10)
[2022-07-21 20:22] VITALS: BP 99/63
--- NOTE | 2022-07-21 20:35 | NUR ---
RT Patient received on ordered settings: cool aerosol FiO2 28% at 5LPM. Tolerating well with an SPO2 of 96%. No respiratory distress or SOB. Nebulizer tx given and tolerated. Patient suctioned with minimal thick secretions. Trach is patent and secured. Emergency trach and ambu bag are bedside.
[2022-07-21] MEDS: MELATONIN 3 MG TABLET GT SCH (21:34)
[2022-07-21] MEDS: ATORVASTATIN 40 MG TABLET GT SCH (21:34)
[2022-07-21] MEDS: TAMSULOSIN 0.4 MG CAP.SR.24H GT SCH (21:34)
[2022-07-22] MEDS: BLOOD SUGAR DIAGNOSTIC 1 EACH STRIP IN SCH ×5 (00:46→23:15)
[2022-07-22] MEDS: INSULIN REGULAR, HUMAN 100 UNIT/ML 3 ML VIAL SQ PRN ×3 (00:46→12:06)
[2022-07-22] MEDS: ALBUTEROL FS 2.5 MG/3 ML VIAL.NEB NEB SCH ×4 (01:37→19:30)
[2022-07-22] MEDS: VITAL AF 1.2 1,000 ML BOTTLE GT PRN ×2 (05:00→22:50)
[2022-07-22] MEDS: PANTOPRAZOLE 40 MG/PACK PACK GT SCH (05:22)
[2022-07-22 07:15] VITALS: BP 115/58
[2022-07-22] MEDS: ASCORBIC ACID 500 MG TABLET GT SCH (09:56)
[2022-07-22] MEDS: ZINC SULFATE 220 MG CAPSULE GT SCH (09:56)
[2022-07-22] MEDS: CHOLESTYRAMINE/ASPARTAME 4 G/PKT PACKET GT SCH (09:56)
[2022-07-22] MEDS: PROSOURCE / PROSTAT (PYXIS) 30 ML UDC GT SCH ×2 (09:56→17:20)
[2022-07-22] MEDS: ASPIRIN 81 MG TAB.CHEW GT SCH (09:56)
[2022-07-22] MEDS: ACIDOPHILUS/BULGARICUS 1 EACH TAB.CHEW GT SCH ×2 (09:56→17:20)
[2022-07-22] MEDS: ENOXAPARIN SODIUM 40 MG/0.4 ML DISP.SYRIN SQ SCH (09:56)
[2022-07-22] MEDS: FERROUS SULFATE (325 MG) 325 MG/TAB TABLET GT SCH (09:56)
[2022-07-22] MEDS: VITAMINS A AND D 56.7 GM TUBE TP SCH ×2 (09:57→20:55)
[2022-07-22 11:29] VITALS: BP 129/57
[2022-07-22 19:56] VITALS: BP 99/63
[2022-07-22] MEDS: MELATONIN 3 MG TABLET GT SCH (21:54)
[2022-07-22] MEDS: TAMSULOSIN 0.4 MG CAP.SR.24H GT SCH (21:54)
[2022-07-22] MEDS: ATORVASTATIN 40 MG TABLET GT SCH (21:54)
[2022-07-23] MEDS: ALBUTEROL FS 2.5 MG/3 ML VIAL.NEB NEB SCH ×4 (01:40→20:27)
[2022-07-23] MEDS: PANTOPRAZOLE 40 MG/PACK PACK GT SCH (05:17)
[2022-07-23] MEDS: BLOOD SUGAR DIAGNOSTIC 1 EACH STRIP IN SCH ×4 (05:17→23:41)
[2022-07-23 07:26] VITALS: BP 115/55
--- NOTE | 2022-07-23 08:33 | NUR ---
Seen and examined by Dr. Colón no new orders.
[2022-07-23] MEDS: ASPIRIN 81 MG TAB.CHEW GT SCH (09:03)
[2022-07-23] MEDS: FERROUS SULFATE (325 MG) 325 MG/TAB TABLET GT SCH (09:03)
[2022-07-23] MEDS: ASCORBIC ACID 500 MG TABLET GT SCH (09:04)
[2022-07-23] MEDS: VITAMINS A AND D 56.7 GM TUBE TP SCH ×2 (09:04→21:57)
[2022-07-23] MEDS: ACIDOPHILUS/BULGARICUS 1 EACH TAB.CHEW GT SCH ×2 (09:04→17:04)
[2022-07-23] MEDS: ZINC SULFATE 220 MG CAPSULE GT SCH (09:04)
[2022-07-23] MEDS: CHOLESTYRAMINE/ASPARTAME 4 G/PKT PACKET GT SCH (09:04)
[2022-07-23] MEDS: ENOXAPARIN SODIUM 40 MG/0.4 ML DISP.SYRIN SQ SCH (09:04)
[2022-07-23] MEDS: PROSOURCE / PROSTAT (PYXIS) 30 ML UDC GT SCH ×2 (09:04→17:04)
[2022-07-23] MEDS: INSULIN REGULAR, HUMAN 100 UNIT/ML 3 ML VIAL SQ PRN ×3 (11:28→23:42)
[2022-07-23 11:51] VITALS: BP 112/59
--- NOTE | 2022-07-23 14:00 | NUR ---
Received new order per Dr. Acuna 8.6mg via g tube 2 tablets HS, colace 100mg via gtube daily, miralax 17 grams via gtube daily, and miralax 17 grams via gtube PRN x 2 bowel movement then stop, DX: constipation, order carried out and responsible libertarian made aware.
--- NOTE | 2022-07-23 14:42 | NUR ---
Received new orders per Dr. Mack CBC, and BMP, orders carried out and responsible libertarian made aware.
[2022-07-23 15:48] LABS: BASOPHILS # (AUTO) 0.1 K/uL (0.0-0.2); EOSINOPHILS % (AUTO) 2.3 % (0.0-6.0); HEMATOCRIT 25 % (39-51); LYMPHOCYTES # (AUTO) 1.1 K/uL (0.8-4.8); LYMPHOCYTES % (AUTO) 17.6 % (20.0-44.0); MEAN CORPUSCULAR HGB CONC 33 g/dl (31.0-36.0); MEAN CORPUSCULAR VOLUME 81 fL (80-96); MONOCYTES # (AUTO) 0.8 K/uL (0.1-1.30); MONOCYTES % (AUTO) 12.4 % (2.0-12.0); NEUTROPHILS # (AUTO) 4.2 K/uL (1.8-8.9); NEUTROPHILS % (AUTO) 65.7 % (43.0-81.0); PLATELET COUNT (AUTO) 445 K/uL (150-450); RED BLOOD CELL COUNT(AUTO) 3.05 MIL/uL (4.5-6.0); WHITE BLOOD COUNT (AUTO) 6.4 K/uL (4.3-11.0)
[2022-07-23 16:00] LABS: CARBON DIOXIDE 34 mmol/L (21-32); CHLORIDE 100 mmol/L (98-107); CREATININE 0.6 mg/dL (0.6-1.3); GLUCOSE 147 mg/dL (74-106); POTASSIUM 4.7 mmol/L (3.5-5.1); SODIUM SERUM 132 mmol/L (136-145); UREA NITROGEN, BLOOD 25 mg/dL (7-18)
[2022-07-23] MEDS: DOCUSATE SODIUM LIQ 100 MG/10 ML UDC GT SCH (17:04)
[2022-07-23] MEDS: VITAL AF 1.2 1,000 ML BOTTLE GT PRN (17:07)
--- NOTE | 2022-07-23 18:00 | NUR ---
Relayed BMP and CBC results to Dr. Mack no new orders.
[2022-07-23] MEDS: MAGNESIUM HYDROXIDE 30 ML UDC PO PRN (18:31)
[2022-07-23 19:51] VITALS: BP 108/55
[2022-07-23] MEDS: ATORVASTATIN 40 MG TABLET GT SCH (22:00)
[2022-07-23] MEDS: TAMSULOSIN 0.4 MG CAP.SR.24H GT SCH (22:00)
[2022-07-23] MEDS: MELATONIN 3 MG TABLET GT SCH (22:00)
[2022-07-23] MEDS: SENNOSIDES 8.6 MG TABLET GT SCH (22:00)
[2022-07-24] MEDS: ALBUTEROL FS 2.5 MG/3 ML VIAL.NEB NEB SCH ×4 (01:23→19:42)
[2022-07-24] MEDS: PANTOPRAZOLE 40 MG/PACK PACK GT SCH (05:52)
[2022-07-24] MEDS: BLOOD SUGAR DIAGNOSTIC 1 EACH STRIP IN SCH ×3 (05:52→17:37)
[2022-07-24] MEDS: INSULIN REGULAR, HUMAN 100 UNIT/ML 3 ML VIAL SQ PRN ×3 (05:53→17:39)
[2022-07-24] MEDS: POLYETHYLENE GLYCOL 3350 17 GM POWD.PACK GT PRN (06:23)
[2022-07-24 08:00] VITALS: BP 99/57
[2022-07-24 08:17] LABS: CALCIUM, SERUM 8.1 mg/dL (8.5-10.1); CREATININE 0.6 mg/dL (0.6-1.3); POTASSIUM 4.3 mmol/L (3.5-5.1)
[2022-07-24] MEDS: ASPIRIN 81 MG TAB.CHEW GT SCH (09:05)
[2022-07-24] MEDS: DOCUSATE SODIUM LIQ 100 MG/10 ML UDC GT SCH ×3 (09:05→16:21)
[2022-07-24] MEDS: CHOLESTYRAMINE/ASPARTAME 4 G/PKT PACKET GT SCH (09:05)
[2022-07-24] MEDS: PROSOURCE / PROSTAT (PYXIS) 30 ML UDC GT SCH ×2 (09:05→16:21)
[2022-07-24] MEDS: ACIDOPHILUS/BULGARICUS 1 EACH TAB.CHEW GT SCH ×2 (09:05→16:21)
[2022-07-24] MEDS: ASCORBIC ACID 500 MG TABLET GT SCH (09:05)
[2022-07-24] MEDS: FERROUS SULFATE (325 MG) 325 MG/TAB TABLET GT SCH (09:05)
[2022-07-24] MEDS: ZINC SULFATE 220 MG CAPSULE GT SCH (09:05)
[2022-07-24] MEDS: POLYETHYLENE GLYCOL 3350 17 GM POWD.PACK GT SCH (09:05)
[2022-07-24] MEDS: ENOXAPARIN SODIUM 40 MG/0.4 ML DISP.SYRIN SQ SCH (09:06)
[2022-07-24] MEDS: VITAMINS A AND D 56.7 GM TUBE TP SCH ×2 (09:06→21:08)
--- NOTE | 2022-07-24 11:08 | NUR ---
Family Invite to IDT: PIERRE emailed the pt.'s , Rosaline inviting them to participate in 07/26/2022 IDT Meeting. PIERRE will follow up accordingly.
[2022-07-24 13:25] VITALS: BP 113/53
--- NOTE | 2022-07-24 15:00 | NUR ---
Harshad Bean came to visit resident, offered Moderna Bivalent vaccine, discussed the risk and benefits and possible side effects, she said she doesn't want the vaccine to be given to her .
[2022-07-24] MEDS: BISACODYL SUPP (10 MG) 10 MG/SUPP.RECT SUPP.RECT RC PRN (16:21)
[2022-07-24 20:09] VITALS: BP 101/65
[2022-07-24] MEDS: SENNOSIDES 8.6 MG TABLET GT SCH (21:08)
[2022-07-24] MEDS: MELATONIN 3 MG TABLET GT SCH (21:08)
[2022-07-24] MEDS: TAMSULOSIN 0.4 MG CAP.SR.24H GT SCH (21:08)
[2022-07-24] MEDS: ATORVASTATIN 40 MG TABLET GT SCH (21:08)
[2022-07-25] MEDS: INSULIN REGULAR, HUMAN 100 UNIT/ML 3 ML VIAL SQ PRN ×4 (00:26→17:19)
[2022-07-25] MEDS: BLOOD SUGAR DIAGNOSTIC 1 EACH STRIP IN SCH ×4 (00:26→17:17)
[2022-07-25] MEDS: ALBUTEROL FS 2.5 MG/3 ML VIAL.NEB NEB SCH ×4 (00:59→19:32)
[2022-07-25] MEDS: POLYETHYLENE GLYCOL 3350 17 GM POWD.PACK GT PRN ×2 (01:39→21:18)
[2022-07-25] MEDS: VITAL AF 1.2 1,000 ML BOTTLE GT PRN ×3 (01:43→18:11)
[2022-07-25] MEDS: PANTOPRAZOLE 40 MG/PACK PACK GT SCH (05:13)
[2022-07-25] MEDS: ASPIRIN 81 MG TAB.CHEW GT SCH (08:09)
[2022-07-25] MEDS: POLYETHYLENE GLYCOL 3350 17 GM POWD.PACK GT SCH (08:10)
[2022-07-25] MEDS: ENOXAPARIN SODIUM 40 MG/0.4 ML DISP.SYRIN SQ SCH (08:10)
[2022-07-25] MEDS: CHOLESTYRAMINE/ASPARTAME 4 G/PKT PACKET GT SCH (08:10)
[2022-07-25] MEDS: VITAMINS A AND D 56.7 GM TUBE TP SCH ×2 (08:10→21:15)
[2022-07-25] MEDS: PROSOURCE / PROSTAT (PYXIS) 30 ML UDC GT SCH ×2 (08:10→16:29)
[2022-07-25] MEDS: ASCORBIC ACID 500 MG TABLET GT SCH (08:10)
[2022-07-25] MEDS: ZINC SULFATE 220 MG CAPSULE GT SCH (08:10)
[2022-07-25] MEDS: FERROUS SULFATE (325 MG) 325 MG/TAB TABLET GT SCH (08:10)
[2022-07-25] MEDS: DOCUSATE SODIUM LIQ 100 MG/10 ML UDC GT SCH ×3 (08:10→16:29)
[2022-07-25] MEDS: ACIDOPHILUS/BULGARICUS 1 EACH TAB.CHEW GT SCH ×2 (08:10→16:29)
[2022-07-25 08:19] VITALS: BP 139/61
--- NOTE | 2022-07-25 09:54 | NUR ---
Seen by BUSINESS SYSTEMS ANALYST Reshma Christine via telemedicine. Reviewed recent lab result, blood sugar reading in the past week and BM pattern in which patient is having episode of constipation. Reshma reviewed medications with order to DC Silvestre, she is pleased that patient is not having episode of hypoglycemia, no dosing changes of insulin given at this time.
[2022-07-25 13:15] VITALS: BP 122/71
[2022-07-25 19:19] VITALS: BP 112/58
[2022-07-25] MEDS: ATORVASTATIN 40 MG TABLET GT SCH (21:15)
[2022-07-25] MEDS: SENNOSIDES 8.6 MG TABLET GT SCH (21:15)
[2022-07-25] MEDS: TAMSULOSIN 0.4 MG CAP.SR.24H GT SCH (21:15)
[2022-07-25] MEDS: MELATONIN 3 MG TABLET GT SCH (21:15)
[2022-07-26] MEDS: INSULIN REGULAR, HUMAN 100 UNIT/ML 3 ML VIAL SQ PRN ×5 (00:03→23:45)
[2022-07-26] MEDS: BLOOD SUGAR DIAGNOSTIC 1 EACH STRIP IN SCH ×5 (00:03→23:45)
[2022-07-26 00:21] VITALS: BP 124/62
[2022-07-26] MEDS: ALBUTEROL FS 2.5 MG/3 ML VIAL.NEB NEB SCH ×4 (01:11→19:21)
[2022-07-26] MEDS: PANTOPRAZOLE 40 MG/PACK PACK GT SCH (05:11)
[2022-07-26 07:28] VITALS: BP 111/59
[2022-07-26] MEDS: ASPIRIN 81 MG TAB.CHEW GT SCH (08:16)
[2022-07-26] MEDS: ACIDOPHILUS/BULGARICUS 1 EACH TAB.CHEW GT SCH ×2 (08:16→16:45)
[2022-07-26] MEDS: FERROUS SULFATE (325 MG) 325 MG/TAB TABLET GT SCH (08:16)
[2022-07-26] MEDS: PROSOURCE / PROSTAT (PYXIS) 30 ML UDC GT SCH ×2 (08:16→16:45)
[2022-07-26] MEDS: ASCORBIC ACID 500 MG TABLET GT SCH (08:16)
[2022-07-26] MEDS: POLYETHYLENE GLYCOL 3350 17 GM POWD.PACK GT SCH (08:16)
[2022-07-26] MEDS: DOCUSATE SODIUM LIQ 100 MG/10 ML UDC GT SCH ×3 (08:16→16:45)
[2022-07-26] MEDS: ZINC SULFATE 220 MG CAPSULE GT SCH (08:16)
[2022-07-26] MEDS: ENOXAPARIN SODIUM 40 MG/0.4 ML DISP.SYRIN SQ SCH (08:17)
[2022-07-26] MEDS: VITAMINS A AND D 56.7 GM TUBE TP SCH ×2 (08:17→20:05)
[2022-07-26 12:30] VITALS: BP 133/79
--- NOTE | 2022-07-26 15:16 | NUR ---
INTERDISCIPLINARY PLAN OF CARE CONFERENCE took place today. The patients , Rosaline Brito [phone] Colón and Interdisciplinary team discussed the plan of care in detail. Current orders as well as treatments and medications were reviewed.
--- NOTE | 2022-07-26 16:25 | NUR ---
PIERRE emailed the Bivalent Covid Vaccine information sheet to the patient's , Rosaline.
[2022-07-26] MEDS: VITAL AF 1.2 1,000 ML BOTTLE GT PRN (18:04)
[2022-07-26 19:20] VITALS: BP 102/58
[2022-07-26] MEDS: MAGNESIUM HYDROXIDE 30 ML UDC PO PRN (20:05)
[2022-07-26] MEDS: POLYETHYLENE GLYCOL 3350 17 GM POWD.PACK GT PRN (20:05)
[2022-07-26] MEDS: TAMSULOSIN 0.4 MG CAP.SR.24H GT SCH (21:15)
[2022-07-26] MEDS: SENNOSIDES 8.6 MG TABLET GT SCH (21:15)
[2022-07-26] MEDS: MELATONIN 3 MG TABLET GT SCH (21:15)
[2022-07-26] MEDS: ATORVASTATIN 40 MG TABLET GT SCH (21:15)
[2022-07-27 00:44] VITALS: BP 126/57
[2022-07-27] MEDS: ALBUTEROL FS 2.5 MG/3 ML VIAL.NEB NEB SCH ×4 (01:28→19:26)
[2022-07-27] MEDS: PANTOPRAZOLE 40 MG/PACK PACK GT SCH (05:05)
[2022-07-27] MEDS: BLOOD SUGAR DIAGNOSTIC 1 EACH STRIP IN SCH ×4 (05:22→23:34)
[2022-07-27] MEDS: INSULIN REGULAR, HUMAN 100 UNIT/ML 3 ML VIAL SQ PRN ×4 (05:23→23:35)
--- NOTE | 2022-07-27 06:10 | NUR ---
PATIENT RECEIVED ON 28% AEROSOL T-TUBE, TOLERATING WITH NO DISTRESS/SOB NOTED. SUCTIONED FOR MINIMAL, THICK, YELLOW SECRETIONS. GIVEN IN-LINE TREATMENTS WITH NO ADVERSE REACTIONS. AMBU BAG AT BEDSIDE. TRACH CARE DONE. Addendum: 07/27/22 at 0610 by GIANNA ARRINGTON RT Amended: Links added.
[2022-07-27 07:33] VITALS: BP 126/66
[2022-07-27] MEDS: DOCUSATE SODIUM LIQ 100 MG/10 ML UDC GT SCH ×3 (08:48→16:58)
[2022-07-27] MEDS: ASPIRIN 81 MG TAB.CHEW GT SCH (08:48)
[2022-07-27] MEDS: FERROUS SULFATE (325 MG) 325 MG/TAB TABLET GT SCH (08:51)
[2022-07-27] MEDS: ACIDOPHILUS/BULGARICUS 1 EACH TAB.CHEW GT SCH ×2 (08:51→16:58)
[2022-07-27] MEDS: POLYETHYLENE GLYCOL 3350 17 GM POWD.PACK GT SCH (08:53)
[2022-07-27] MEDS: ASCORBIC ACID 500 MG TABLET GT SCH (08:54)
[2022-07-27] MEDS: PROSOURCE / PROSTAT (PYXIS) 30 ML UDC GT SCH ×2 (08:54→16:58)
[2022-07-27] MEDS: ZINC SULFATE 220 MG CAPSULE GT SCH (08:55)
[2022-07-27] MEDS: ENOXAPARIN SODIUM 40 MG/0.4 ML DISP.SYRIN SQ SCH (08:57)
[2022-07-27] MEDS: VITAMINS A AND D 56.7 GM TUBE TP SCH ×2 (08:57→20:15)
[2022-07-27 14:18] VITALS: BP 143/66
[2022-07-27] MEDS: VITAL AF 1.2 1,000 ML BOTTLE GT PRN (17:19)
[2022-07-27 19:30] VITALS: BP 104/57
[2022-07-27] MEDS: SENNOSIDES 8.6 MG TABLET GT SCH (21:10)
[2022-07-27] MEDS: TAMSULOSIN 0.4 MG CAP.SR.24H GT SCH (21:10)
[2022-07-27] MEDS: ATORVASTATIN 40 MG TABLET GT SCH (21:10)
[2022-07-27] MEDS: MELATONIN 3 MG TABLET GT SCH (21:10)
[2022-07-28 00:49] VITALS: BP 115/63
--- NOTE | 2022-07-28 00:50 | NUR ---
RN NOTES FOUND PATIENT PULLED OUT HIS PICC LINE, NOTED WITH NO BLEEDING OR S/S OF PAIN/DISCOMFORT. WILL CLOSELY MONITOR.
[2022-07-28] MEDS: ALBUTEROL FS 2.5 MG/3 ML VIAL.NEB NEB SCH ×4 (01:30→19:40)
[2022-07-28] MEDS: PANTOPRAZOLE 40 MG/PACK PACK GT SCH (05:20)
[2022-07-28] MEDS: BLOOD SUGAR DIAGNOSTIC 1 EACH STRIP IN SCH ×3 (05:20→17:19)
[2022-07-28] MEDS: INSULIN REGULAR, HUMAN 100 UNIT/ML 3 ML VIAL SQ PRN ×3 (05:21→17:19)
[2022-07-28 08:12] VITALS: BP 121/55
[2022-07-28] MEDS: FERROUS SULFATE (325 MG) 325 MG/TAB TABLET GT SCH (09:10)
[2022-07-28] MEDS: DOCUSATE SODIUM LIQ 100 MG/10 ML UDC GT SCH ×3 (09:10→17:10)
[2022-07-28] MEDS: ACIDOPHILUS/BULGARICUS 1 EACH TAB.CHEW GT SCH ×2 (09:10→17:10)
[2022-07-28] MEDS: POLYETHYLENE GLYCOL 3350 17 GM POWD.PACK GT SCH (09:10)
[2022-07-28] MEDS: ASPIRIN 81 MG TAB.CHEW GT SCH (09:10)
[2022-07-28] MEDS: ASCORBIC ACID 500 MG TABLET GT SCH (09:11)
[2022-07-28] MEDS: ZINC SULFATE 220 MG CAPSULE GT SCH (09:11)
[2022-07-28] MEDS: PROSOURCE / PROSTAT (PYXIS) 30 ML UDC GT SCH ×2 (09:11→17:10)
[2022-07-28] MEDS: VITAMINS A AND D 56.7 GM TUBE TP SCH ×2 (09:12→20:47)
[2022-07-28] MEDS: ENOXAPARIN SODIUM 40 MG/0.4 ML DISP.SYRIN SQ SCH (09:12)
[2022-07-28] MEDS: VITAL AF 1.2 1,000 ML BOTTLE GT PRN (12:51)
[2022-07-28 19:25] VITALS: BP 125/57
[2022-07-28] MEDS: MELATONIN 3 MG TABLET GT SCH (21:33)
[2022-07-28] MEDS: TAMSULOSIN 0.4 MG CAP.SR.24H GT SCH (21:33)
[2022-07-28] MEDS: SENNOSIDES 8.6 MG TABLET GT SCH (21:33)
[2022-07-28] MEDS: ATORVASTATIN 40 MG TABLET GT SCH (21:33)
[2022-07-28 23:55] VITALS: BP 109/56
[2022-07-29] MEDS: BLOOD SUGAR DIAGNOSTIC 1 EACH STRIP IN SCH ×5 (00:09→23:17)
[2022-07-29] MEDS: INSULIN REGULAR, HUMAN 100 UNIT/ML 3 ML VIAL SQ PRN ×5 (00:12→23:18)
[2022-07-29] MEDS: ALBUTEROL FS 2.5 MG/3 ML VIAL.NEB NEB SCH ×4 (01:38→20:22)
[2022-07-29] MEDS: PANTOPRAZOLE 40 MG/PACK PACK GT SCH (06:00)
[2022-07-29 08:09] VITALS: BP 140/67
[2022-07-29] MEDS: ASPIRIN 81 MG TAB.CHEW GT SCH (09:02)
[2022-07-29] MEDS: POLYETHYLENE GLYCOL 3350 17 GM POWD.PACK GT SCH (09:02)
[2022-07-29] MEDS: PROSOURCE / PROSTAT (PYXIS) 30 ML UDC GT SCH ×2 (09:02→17:48)
[2022-07-29] MEDS: FERROUS SULFATE (325 MG) 325 MG/TAB TABLET GT SCH (09:02)
[2022-07-29] MEDS: VITAMINS A AND D 56.7 GM TUBE TP SCH ×2 (09:02→21:40)
[2022-07-29] MEDS: DOCUSATE SODIUM LIQ 100 MG/10 ML UDC GT SCH ×3 (09:02→17:48)
[2022-07-29] MEDS: ACIDOPHILUS/BULGARICUS 1 EACH TAB.CHEW GT SCH ×2 (09:02→17:48)
[2022-07-29] MEDS: ZINC SULFATE 220 MG CAPSULE GT SCH (09:02)
[2022-07-29] MEDS: ASCORBIC ACID 500 MG TABLET GT SCH (09:02)
[2022-07-29] MEDS: ENOXAPARIN SODIUM 40 MG/0.4 ML DISP.SYRIN SQ SCH (09:03)
[2022-07-29] MEDS: VITAL AF 1.2 1,000 ML BOTTLE GT PRN (09:09)
--- NOTE | 2022-07-29 12:10 | NUR ---
Seen by Dr Mack. He examined pt's surgical incisions and ordered to DC jose g.
--- NOTE | 2022-07-29 17:30 | NUR ---
Removed jose g alternately from the surgical wounds on the abdomen. Pt tolerated procedure well. Informed Dr Mack and also asked him if sutures from the G-tube external bumper can be removed as well. Received order to DC the sutures. Pt also tolerated it well. Notified pt's .
--- NOTE | 2022-07-29 19:48 | NUR ---
RT Pt received trached on cool mist aerosol via t-piece. No resp distress noted at this time. Airway patent and secured. Pt suctioned. HHN treatments given. Ambubag and spare trach at head of bed. Will cont to monitor. Addendum: 07/30/22 at 0615 by SAPNA ZAFAR RT Amended: Links added.
[2022-07-29 20:18] VITALS: BP 116/65
[2022-07-29] MEDS: MELATONIN 3 MG TABLET GT SCH (21:40)
[2022-07-29] MEDS: SENNOSIDES 8.6 MG TABLET GT SCH (21:40)
[2022-07-29] MEDS: TAMSULOSIN 0.4 MG CAP.SR.24H GT SCH (21:40)
[2022-07-29] MEDS: ATORVASTATIN 40 MG TABLET GT SCH (21:40)
[2022-07-30] MEDS: ALBUTEROL FS 2.5 MG/3 ML VIAL.NEB NEB SCH ×4 (01:27→19:32)
[2022-07-30] MEDS: PANTOPRAZOLE 40 MG/PACK PACK GT SCH (05:43)
[2022-07-30] MEDS: BLOOD SUGAR DIAGNOSTIC 1 EACH STRIP IN SCH ×3 (05:43→17:30)
[2022-07-30] MEDS: INSULIN REGULAR, HUMAN 100 UNIT/ML 3 ML VIAL SQ PRN ×3 (05:44→17:31)
[2022-07-30 07:29] VITALS: BP 148/67
--- NOTE | 2022-07-30 07:50 | NUR ---
RT NOTE: PT RECEIVED STABLE UNABLE TO FOLLOW COMMANDS. REACTIVE TO STIM. PT TRACH PATENT AND SECURE. PT ON CA ON CORRECT LITER FLOW. BAG AND MASK AT BEDSIDE AND SPARE TRACH. PT SHOWS NO SIGNS OF DISTRESS. BILAT BREATH SOUNDS AND CHEST RISE OBSERVED WILL CONTINUE CURRENT THERAPY. Addendum: 07/30/22 at 1219 by SHELTON MARION RT Amended: Links added.
[2022-07-30] MEDS: PROSOURCE / PROSTAT (PYXIS) 30 ML UDC GT SCH ×2 (08:31→16:13)
[2022-07-30] MEDS: ASPIRIN 81 MG TAB.CHEW GT SCH (08:31)
[2022-07-30] MEDS: FERROUS SULFATE (325 MG) 325 MG/TAB TABLET GT SCH (08:31)
[2022-07-30] MEDS: DOCUSATE SODIUM LIQ 100 MG/10 ML UDC GT SCH ×3 (08:31→16:13)
[2022-07-30] MEDS: VITAMINS A AND D 56.7 GM TUBE TP SCH ×2 (08:31→20:13)
[2022-07-30] MEDS: POLYETHYLENE GLYCOL 3350 17 GM POWD.PACK GT SCH (08:31)
[2022-07-30] MEDS: ASCORBIC ACID 500 MG TABLET GT SCH (08:31)
[2022-07-30] MEDS: ACIDOPHILUS/BULGARICUS 1 EACH TAB.CHEW GT SCH ×2 (08:31→16:13)
[2022-07-30] MEDS: ZINC SULFATE 220 MG CAPSULE GT SCH (08:31)
[2022-07-30] MEDS: ENOXAPARIN SODIUM 40 MG/0.4 ML DISP.SYRIN SQ SCH (08:32)
--- NOTE | 2022-07-30 11:50 | NUR ---
MONTHLY TRACH CHANGE DONE USING SHILEY 8 CUFFED WITH NO COMPLICATIONS. CAROLYN RT AT BEDSIDE TO ASSIST AND CONFIRM CORRECT TRACH WAS USED. SX DONE PRE/POST PROCEDURE,SMALL BLEEDING NOTED,EQUAL BREATH SOUNDS AUSCULTATED AND BILATERAL CHEST RISE NOTED.PT TRACH SECURED AND PATENT.NO SOB NOTED. DEXTRINE MIXER ABBY NOTIFIED. Addendum: 07/30/22 at 1157 by SHELTON MARION RT Amended: Links added.
[2022-07-30 12:22] VITALS: BP 119/57
--- NOTE | 2022-07-30 15:49 | NUR ---
Monthly progress notes.Resident is alert,Resident is awake make eye contact,try to vocalize upon approach try to make sound.Unable to communicate such as cue cards., He received daily visits for reality orientation,tv, music, hand massage, audio tapes and sensory stimulation.These activities will be provided as needed.
--- NOTE | 2022-07-30 16:04 | NUR ---
All remaining jose g were removed from the surgical wounds on the abdomen. A total of 7 jose g were removed since yesterday. No wound dehiscence, no bleeding noted. Pt tolerated procedure well.
[2022-07-30 20:20] VITALS: BP 123/60
[2022-07-30] MEDS: SENNOSIDES 8.6 MG TABLET GT SCH (21:35)
[2022-07-30] MEDS: ATORVASTATIN 40 MG TABLET GT SCH (21:35)
[2022-07-30] MEDS: MELATONIN 3 MG TABLET GT SCH (21:35)
[2022-07-30] MEDS: TAMSULOSIN 0.4 MG CAP.SR.24H GT SCH (21:35)
[2022-07-31] MEDS: BLOOD SUGAR DIAGNOSTIC 1 EACH STRIP IN SCH ×4 (00:50→17:37)
[2022-07-31] MEDS: INSULIN REGULAR, HUMAN 100 UNIT/ML 3 ML VIAL SQ PRN ×4 (00:52→17:39)
[2022-07-31] MEDS: VITAL AF 1.2 1,000 ML BOTTLE GT PRN (01:54)
[2022-07-31] MEDS: ALBUTEROL FS 2.5 MG/3 ML VIAL.NEB NEB SCH ×4 (01:58→19:43)
--- NOTE | 2022-07-31 02:32 | NUR ---
PATIENT RECEIVED ON 28% AEROSOL T-TUBE, TOLERATING WITH NO DISTRESS/SOB NOTED. SUCTIONED FOR MODERATE, THICK, WHITE SECRETIONS. GIVEN IN-LINE TREATMENTS WITH NO ADVERSE REACTIONS. AMBU BAG AT BEDSIDE. TRACH CARE DONE. Addendum: 07/31/22 at 0233 by GIANNA ARRINGTON RT Amended: Links added.
[2022-07-31] MEDS: PANTOPRAZOLE 40 MG/PACK PACK GT SCH (05:00)
[2022-07-31 06:56] LABS: CALCIUM, SERUM 8.2 mg/dL (8.5-10.1); CARBON DIOXIDE 29 mmol/L (21-32); CHLORIDE 95 mmol/L (98-107); CREATININE 0.7 mg/dL (0.6-1.3); GLUCOSE 322 mg/dL (74-106); POTASSIUM 3.4 mmol/L (3.5-5.1); SODIUM SERUM 130 mmol/L (136-145); UREA NITROGEN, BLOOD 28 mg/dL (7-18)
[2022-07-31 07:46] VITALS: BP 128/68
[2022-07-31] MEDS: ZINC SULFATE 220 MG CAPSULE GT SCH (08:24)
[2022-07-31] MEDS: POLYETHYLENE GLYCOL 3350 17 GM POWD.PACK GT SCH (08:24)
[2022-07-31] MEDS: FERROUS SULFATE (325 MG) 325 MG/TAB TABLET GT SCH (08:24)
[2022-07-31] MEDS: ACIDOPHILUS/BULGARICUS 1 EACH TAB.CHEW GT SCH ×2 (08:24→17:17)
[2022-07-31] MEDS: PROSOURCE / PROSTAT (PYXIS) 30 ML UDC GT SCH ×2 (08:24→17:18)
[2022-07-31] MEDS: DOCUSATE SODIUM LIQ 100 MG/10 ML UDC GT SCH ×3 (08:24→17:17)
[2022-07-31] MEDS: ASPIRIN 81 MG TAB.CHEW GT SCH (08:24)
[2022-07-31] MEDS: ASCORBIC ACID 500 MG TABLET GT SCH (08:24)
[2022-07-31] MEDS: ENOXAPARIN SODIUM 40 MG/0.4 ML DISP.SYRIN SQ SCH (08:25)
[2022-07-31] MEDS: VITAMINS A AND D 56.7 GM TUBE TP SCH ×2 (08:25→21:20)
[2022-07-31 11:47] VITALS: BP 143/69
--- NOTE | 2022-07-31 13:00 | NUR ---
Received laboratory results, informed Dr. Mack potassium level 3.4. Per Dr. Mack no additional potassium supplement, new order Lantus glargine 7 units SQ at HS, order carried out and responsible green party made aware.
--- NOTE | 2022-07-31 13:34 | NUR ---
Relayed BMP result to Dr. Mack with K+ level of 3.4, MD did not give K+ supplement but instead reviewed BS reading and previous DM regimen, he ordered to start patient with Lantus 7 units Q HS. Orders carried out. Resident's Rosaline informed.
--- NOTE | 2022-07-31 16:04 | NUR ---
PATIENT RECEIVED ON COOL AEROSOL @ 28%. HAS A TRACH SHILEY 8 UNCUFFED. AIRWAY PATENT AND SECURE. Q6 HHN TXS KAILEE WELL WITH NO ADVERSE REACTION NOTED. AMBU BAG AND EMERGENCY TRACH AT THE BEDSIDE. MODERATE YELLOW THICK SECRETIONS NOTED.
[2022-07-31 19:44] VITALS: BP 101/55
[2022-07-31] MEDS: MELATONIN 3 MG TABLET GT SCH (21:20)
[2022-07-31] MEDS: SENNOSIDES 8.6 MG TABLET GT SCH (21:20)
[2022-07-31] MEDS: ATORVASTATIN 40 MG TABLET GT SCH (21:20)
[2022-07-31] MEDS: TAMSULOSIN 0.4 MG CAP.SR.24H GT SCH (21:20)
[2022-07-31] MEDS: INSULIN GLARGINE, 100 UNIT/ML CARTRIDGE SQ SCH (21:21)
[2022-08-01] MEDS: BLOOD SUGAR DIAGNOSTIC 1 EACH STRIP IN SCH ×4 (00:09→17:54)
[2022-08-01] MEDS: INSULIN REGULAR, HUMAN 100 UNIT/ML 3 ML VIAL SQ PRN ×4 (00:10→17:55)
[2022-08-01 00:41] VITALS: BP 111/60
[2022-08-01] MEDS: ALBUTEROL FS 2.5 MG/3 ML VIAL.NEB NEB SCH ×4 (01:41→19:58)
[2022-08-01] MEDS: PANTOPRAZOLE 40 MG/PACK PACK GT SCH (05:30)
[2022-08-01 07:16] VITALS: BP 109/60
[2022-08-01] MEDS: PROSOURCE / PROSTAT (PYXIS) 30 ML UDC GT SCH ×2 (09:06→17:44)
[2022-08-01] MEDS: ZINC SULFATE 220 MG CAPSULE GT SCH (09:06)
[2022-08-01] MEDS: POLYETHYLENE GLYCOL 3350 17 GM POWD.PACK GT SCH (09:06)
[2022-08-01] MEDS: ACIDOPHILUS/BULGARICUS 1 EACH TAB.CHEW GT SCH ×2 (09:06→17:44)
[2022-08-01] MEDS: FERROUS SULFATE (325 MG) 325 MG/TAB TABLET GT SCH (09:06)
[2022-08-01] MEDS: ASPIRIN 81 MG TAB.CHEW GT SCH (09:06)
[2022-08-01] MEDS: DOCUSATE SODIUM LIQ 100 MG/10 ML UDC GT SCH ×3 (09:06→17:44)
[2022-08-01] MEDS: ASCORBIC ACID 500 MG TABLET GT SCH (09:06)
[2022-08-01] MEDS: ENOXAPARIN SODIUM 40 MG/0.4 ML DISP.SYRIN SQ SCH (09:07)
[2022-08-01] MEDS: VITAMINS A AND D 56.7 GM TUBE TP SCH ×2 (09:07→21:04)
[2022-08-01 11:13] VITALS: BP 114/56
--- NOTE | 2022-08-01 16:57 | NUR ---
Seen by SHAHRAM Christine via telemedicine. Informed her that pt was started on Lantus insulin, K was 3.4 yesterday. SHAHRAM Christine ordered to do BMP on 08/05/22.
--- NOTE | 2022-08-01 17:07 | NUR ---
Called pt's Rosaline to offer the flu vaccine and the Covid bivalent booster. Rosaline said she will think about whether or not to give the flu vaccine. Vaccine information statement dated 06/08/21 provided to her. Discussed benefits with her such as preventing influenza and preventing risks of flu complications. Also discussed risks of vaccine reactions with her such as soreness, redness and swelling at injection site; fever; muscle aches; headache; and a very small risk of Guillain-[place] Syndrome. Rosaline refused the Covid bivalent booster. Discussed risks, benefits, and possible side effects with her.
[2022-08-01] MEDS: VITAL AF 1.2 1,000 ML BOTTLE GT PRN (17:55)
[2022-08-01 19:20] VITALS: BP 102/57
[2022-08-01] MEDS: MELATONIN 3 MG TABLET GT SCH (21:04)
[2022-08-01] MEDS: ATORVASTATIN 40 MG TABLET GT SCH (21:04)
[2022-08-01] MEDS: SENNOSIDES 8.6 MG TABLET GT SCH (21:04)
[2022-08-01] MEDS: TAMSULOSIN 0.4 MG CAP.SR.24H GT SCH (21:04)
[2022-08-01] MEDS: INSULIN GLARGINE, 100 UNIT/ML CARTRIDGE SQ SCH (21:10)
[2022-08-02] MEDS: BLOOD SUGAR DIAGNOSTIC 1 EACH STRIP IN SCH ×5 (00:04→23:47)
[2022-08-02] MEDS: INSULIN REGULAR, HUMAN 100 UNIT/ML 3 ML VIAL SQ PRN ×5 (00:05→23:49)
[2022-08-02 00:08] VITALS: BP 109/59
[2022-08-02] MEDS: ALBUTEROL FS 2.5 MG/3 ML VIAL.NEB NEB SCH ×4 (01:47→19:34)
[2022-08-02] MEDS: PANTOPRAZOLE 40 MG/PACK PACK GT SCH (05:24)
[2022-08-02 07:24] VITALS: BP 107/52
--- NOTE | 2022-08-02 09:22 | NUR ---
Flu vaccine information sheet: PIERRE emailed the patient's Rosaline the information sheet yesterday for the flu vaccine and instructed family to call the nurse's station if they would like their pt. to receive the flu vaccine.
--- NOTE | 2022-08-02 09:47 | NUR ---
Seen by Dr. Mack no new order given at this time. said he will review BS reading and will increase Lantus if needed.
[2022-08-02] MEDS: ASCORBIC ACID 500 MG TABLET GT SCH (09:53)
[2022-08-02] MEDS: ASPIRIN 81 MG TAB.CHEW GT SCH (09:53)
[2022-08-02] MEDS: PROSOURCE / PROSTAT (PYXIS) 30 ML UDC GT SCH ×2 (09:53→16:53)
[2022-08-02] MEDS: ZINC SULFATE 220 MG CAPSULE GT SCH (09:53)
[2022-08-02] MEDS: ACIDOPHILUS/BULGARICUS 1 EACH TAB.CHEW GT SCH ×2 (09:53→16:53)
[2022-08-02] MEDS: FERROUS SULFATE (325 MG) 325 MG/TAB TABLET GT SCH (09:53)
[2022-08-02] MEDS: DOCUSATE SODIUM LIQ 100 MG/10 ML UDC GT SCH ×3 (09:53→16:53)
[2022-08-02] MEDS: POLYETHYLENE GLYCOL 3350 17 GM POWD.PACK GT SCH (09:53)
[2022-08-02] MEDS: ENOXAPARIN SODIUM 40 MG/0.4 ML DISP.SYRIN SQ SCH (09:54)
[2022-08-02] MEDS: VITAMINS A AND D 56.7 GM TUBE TP SCH ×2 (09:54→21:05)
--- NOTE | 2022-08-02 10:16 | NUR ---
Dental Visit: SW received a call back from the Dental office of Dr. Aristides Gavin [phone] and they were following up on referral this SW made weeks ago. Per Dr. Romaine Danielson can see this pt. on 08/16/2022 for dental exam.
[2022-08-02 11:11] VITALS: BP 108/63
[2022-08-02] MEDS: VITAL AF 1.2 1,000 ML BOTTLE GT PRN (17:43)
[2022-08-02 20:08] VITALS: BP 130/60
[2022-08-02] MEDS: MELATONIN 3 MG TABLET GT SCH (21:05)
[2022-08-02] MEDS: TAMSULOSIN 0.4 MG CAP.SR.24H GT SCH (21:05)
[2022-08-02] MEDS: ATORVASTATIN 40 MG TABLET GT SCH (21:05)
[2022-08-02] MEDS: SENNOSIDES 8.6 MG TABLET GT SCH (21:05)
[2022-08-02] MEDS: INSULIN GLARGINE, 100 UNIT/ML CARTRIDGE SQ SCH (21:26)
[2022-08-03 00:40] VITALS: BP 125/65
[2022-08-03] MEDS: ALBUTEROL FS 2.5 MG/3 ML VIAL.NEB NEB SCH ×4 (01:15→20:16)
[2022-08-03] MEDS: BLOOD SUGAR DIAGNOSTIC 1 EACH STRIP IN SCH ×3 (05:42→17:09)
[2022-08-03] MEDS: PANTOPRAZOLE 40 MG/PACK PACK GT SCH (05:42)
[2022-08-03] MEDS: INSULIN REGULAR, HUMAN 100 UNIT/ML 3 ML VIAL SQ PRN ×3 (05:43→17:11)
[2022-08-03 07:23] VITALS: BP 105/67
[2022-08-03] MEDS: DOCUSATE SODIUM LIQ 100 MG/10 ML UDC GT SCH ×3 (09:11→17:09)
[2022-08-03] MEDS: VITAMINS A AND D 56.7 GM TUBE TP SCH ×2 (09:11→21:06)
[2022-08-03] MEDS: ACIDOPHILUS/BULGARICUS 1 EACH TAB.CHEW GT SCH ×2 (09:11→17:09)
[2022-08-03] MEDS: ASCORBIC ACID 500 MG TABLET GT SCH (09:11)
[2022-08-03] MEDS: ASPIRIN 81 MG TAB.CHEW GT SCH (09:11)
[2022-08-03] MEDS: POLYETHYLENE GLYCOL 3350 17 GM POWD.PACK GT SCH (09:11)
[2022-08-03] MEDS: FERROUS SULFATE (325 MG) 325 MG/TAB TABLET GT SCH (09:11)
[2022-08-03] MEDS: ZINC SULFATE 220 MG CAPSULE GT SCH (09:11)
[2022-08-03] MEDS: ENOXAPARIN SODIUM 40 MG/0.4 ML DISP.SYRIN SQ SCH (09:11)
[2022-08-03] MEDS: PROSOURCE / PROSTAT (PYXIS) 30 ML UDC GT SCH ×2 (09:11→17:09)
[2022-08-03] MEDS: VITAL AF 1.2 1,000 ML BOTTLE GT PRN (11:40)
[2022-08-03 11:43] VITALS: BP 126/82
[2022-08-03 20:06] VITALS: BP 130/69
[2022-08-03] MEDS: MELATONIN 3 MG TABLET GT SCH (21:06)
[2022-08-03] MEDS: ATORVASTATIN 40 MG TABLET GT SCH (21:06)
[2022-08-03] MEDS: TAMSULOSIN 0.4 MG CAP.SR.24H GT SCH (21:06)
[2022-08-03] MEDS: SENNOSIDES 8.6 MG TABLET GT SCH (21:06)
[2022-08-03] MEDS: NEOMY SULF/BACITRAC ZN/POLY 15 GM TUBE TP SCH (21:06)
[2022-08-03] MEDS: INSULIN GLARGINE, 100 UNIT/ML CARTRIDGE SQ SCH (21:32)
[2022-08-03 23:54] VITALS: BP 99/61
[2022-08-04] MEDS: INSULIN REGULAR, HUMAN 100 UNIT/ML 3 ML VIAL SQ PRN ×4 (00:01→17:18)
[2022-08-04] MEDS: ALBUTEROL FS 2.5 MG/3 ML VIAL.NEB NEB SCH ×4 (01:30→18:44)
[2022-08-04] MEDS: BLOOD SUGAR DIAGNOSTIC 1 EACH STRIP IN SCH ×4 (05:22→17:17)
[2022-08-04] MEDS: PANTOPRAZOLE 40 MG/PACK PACK GT SCH (05:22)
[2022-08-04 08:19] VITALS: BP 101/60
[2022-08-04] MEDS: FERROUS SULFATE (325 MG) 325 MG/TAB TABLET GT SCH (09:00)
[2022-08-04] MEDS: ZINC SULFATE 220 MG CAPSULE GT SCH (09:00)
[2022-08-04] MEDS: ACIDOPHILUS/BULGARICUS 1 EACH TAB.CHEW GT SCH ×2 (09:00→16:54)
[2022-08-04] MEDS: ASCORBIC ACID 500 MG TABLET GT SCH (09:00)
[2022-08-04] MEDS: ASPIRIN 81 MG TAB.CHEW GT SCH (09:00)
[2022-08-04] MEDS: PROSOURCE / PROSTAT (PYXIS) 30 ML UDC GT SCH ×2 (09:00→16:54)
[2022-08-04] MEDS: POLYETHYLENE GLYCOL 3350 17 GM POWD.PACK GT SCH (09:00)
[2022-08-04] MEDS: NEOMY SULF/BACITRAC ZN/POLY 15 GM TUBE TP SCH ×2 (09:00→20:08)
[2022-08-04] MEDS: ENOXAPARIN SODIUM 40 MG/0.4 ML DISP.SYRIN SQ SCH (09:00)
[2022-08-04] MEDS: VITAMINS A AND D 56.7 GM TUBE TP SCH ×2 (09:00→20:08)
[2022-08-04] MEDS: DOCUSATE SODIUM LIQ 100 MG/10 ML UDC GT SCH ×3 (09:00→16:54)
[2022-08-04] MEDS: VITAL AF 1.2 1,000 ML BOTTLE GT PRN (10:43)
[2022-08-04 20:23] VITALS: BP 141/73
[2022-08-04] MEDS: ATORVASTATIN 40 MG TABLET GT SCH (21:48)
[2022-08-04] MEDS: SENNOSIDES 8.6 MG TABLET GT SCH (21:48)
[2022-08-04] MEDS: MELATONIN 3 MG TABLET GT SCH (21:48)
[2022-08-04] MEDS: TAMSULOSIN 0.4 MG CAP.SR.24H GT SCH (21:48)
[2022-08-04] MEDS: INSULIN GLARGINE, 100 UNIT/ML CARTRIDGE SQ SCH (21:53)
[2022-08-05] MEDS: BLOOD SUGAR DIAGNOSTIC 1 EACH STRIP IN SCH ×4 (00:09→18:06)
[2022-08-05] MEDS: INSULIN REGULAR, HUMAN 100 UNIT/ML 3 ML VIAL SQ PRN ×4 (00:10→18:07)
[2022-08-05] MEDS: ALBUTEROL FS 2.5 MG/3 ML VIAL.NEB NEB SCH ×4 (01:08→19:50)
[2022-08-05] MEDS: VITAL AF 1.2 1,000 ML BOTTLE GT PRN ×2 (04:57→19:06)
[2022-08-05] MEDS: PANTOPRAZOLE 40 MG/PACK PACK GT SCH (05:04)
[2022-08-05 06:26] LABS: CALCIUM, SERUM 8.2 mg/dL (8.5-10.1); CREATININE 0.6 mg/dL (0.6-1.3); POTASSIUM 4.1 mmol/L (3.5-5.1)
[2022-08-05] MEDS: ASCORBIC ACID 500 MG TABLET GT SCH (09:27)
[2022-08-05] MEDS: FERROUS SULFATE (325 MG) 325 MG/TAB TABLET GT SCH (09:27)
[2022-08-05] MEDS: ACIDOPHILUS/BULGARICUS 1 EACH TAB.CHEW GT SCH ×2 (09:27→16:54)
[2022-08-05] MEDS: POLYETHYLENE GLYCOL 3350 17 GM POWD.PACK GT SCH (09:27)
[2022-08-05] MEDS: ZINC SULFATE 220 MG CAPSULE GT SCH (09:27)
[2022-08-05] MEDS: DOCUSATE SODIUM LIQ 100 MG/10 ML UDC GT SCH ×3 (09:27→16:54)
[2022-08-05] MEDS: ASPIRIN 81 MG TAB.CHEW GT SCH (09:27)
[2022-08-05] MEDS: PROSOURCE / PROSTAT (PYXIS) 30 ML UDC GT SCH ×2 (09:27→16:54)
[2022-08-05] MEDS: NEOMY SULF/BACITRAC ZN/POLY 15 GM TUBE TP SCH ×2 (09:34→21:51)
[2022-08-05] MEDS: VITAMINS A AND D 56.7 GM TUBE TP SCH ×2 (09:34→21:52)
[2022-08-05] MEDS: ENOXAPARIN SODIUM 40 MG/0.4 ML DISP.SYRIN SQ SCH (09:34)
--- NOTE | 2022-08-05 10:04 | NUR ---
Relayed BMP result to SHAHRAM Christine. No new order.
--- NOTE | 2022-08-05 11:29 | NUR ---
RT Pt received on CA 28% 5L. No signs of respiratory distress or SOB noted. Airway patent and secured. Pt suctioned. Resp TX given and tolerated well. Ambu bag and spare trach at bedside. Pt is currently stable will continue to monitor for any changes.
[2022-08-05 20:00] VITALS: BP 101/54
--- NOTE | 2022-08-05 20:26 | NUR ---
RT Pt received trached on cool mist aerosol via t-piece. No resp distress noted at this time. Airway patent and secured. Pt suctioned. HHN treatments given. Ambubag and spare trach at head of bed. Will cont to monitor.
[2022-08-05] MEDS: MELATONIN 3 MG TABLET GT SCH (21:52)
[2022-08-05] MEDS: TAMSULOSIN 0.4 MG CAP.SR.24H GT SCH (21:52)
[2022-08-05] MEDS: ATORVASTATIN 40 MG TABLET GT SCH (21:52)
[2022-08-05] MEDS: SENNOSIDES 8.6 MG TABLET GT SCH (21:52)
[2022-08-05] MEDS: INSULIN GLARGINE, 100 UNIT/ML CARTRIDGE SQ SCH (21:55)
[2022-08-06] VITALS: BP 122/77
[2022-08-06] MEDS: BLOOD SUGAR DIAGNOSTIC 1 EACH STRIP IN SCH ×5 (00:06→23:49)
[2022-08-06] MEDS: INSULIN REGULAR, HUMAN 100 UNIT/ML 3 ML VIAL SQ PRN ×5 (00:07→23:50)
[2022-08-06] MEDS: ALBUTEROL FS 2.5 MG/3 ML VIAL.NEB NEB SCH ×4 (01:55→19:33)
[2022-08-06] MEDS: PANTOPRAZOLE 40 MG/PACK PACK GT SCH (05:51)
[2022-08-06 07:25] VITALS: BP 100/57
[2022-08-06] MEDS: ASCORBIC ACID 500 MG TABLET GT SCH (09:08)
[2022-08-06] MEDS: DOCUSATE SODIUM LIQ 100 MG/10 ML UDC GT SCH ×3 (09:08→16:34)
[2022-08-06] MEDS: POLYETHYLENE GLYCOL 3350 17 GM POWD.PACK GT SCH (09:08)
[2022-08-06] MEDS: PROSOURCE / PROSTAT (PYXIS) 30 ML UDC GT SCH ×2 (09:08→16:34)
[2022-08-06] MEDS: ACIDOPHILUS/BULGARICUS 1 EACH TAB.CHEW GT SCH ×2 (09:08→16:34)
[2022-08-06] MEDS: ASPIRIN 81 MG TAB.CHEW GT SCH (09:08)
[2022-08-06] MEDS: ZINC SULFATE 220 MG CAPSULE GT SCH (09:08)
[2022-08-06] MEDS: FERROUS SULFATE (325 MG) 325 MG/TAB TABLET GT SCH (09:08)
[2022-08-06] MEDS: ENOXAPARIN SODIUM 40 MG/0.4 ML DISP.SYRIN SQ SCH (09:09)
[2022-08-06] MEDS: VITAMINS A AND D 56.7 GM TUBE TP SCH ×2 (09:09→20:07)
[2022-08-06] MEDS: NEOMY SULF/BACITRAC ZN/POLY 15 GM TUBE TP SCH ×2 (09:09→20:07)
[2022-08-06 12:04] VITALS: BP 120/81
--- NOTE | 2022-08-06 16:15 | NUR ---
Family Invite to IDT: SW emailed the patient's , lavon to invite them to participate in 08/09/22 12:30p IDT meeting via phone conference. PIERRE will follow up accordingly.
[2022-08-06] MEDS: TAMSULOSIN 0.4 MG CAP.SR.24H GT SCH (20:07)
[2022-08-06] MEDS: ATORVASTATIN 40 MG TABLET GT SCH (20:07)
[2022-08-06 20:33] VITALS: BP 132/86
[2022-08-06] MEDS: MELATONIN 3 MG TABLET GT SCH (21:36)
[2022-08-06] MEDS: SENNOSIDES 8.6 MG TABLET GT SCH (21:36)
[2022-08-06] MEDS: INSULIN GLARGINE, 100 UNIT/ML CARTRIDGE SQ SCH (21:37)
[2022-08-07] MEDS: ALBUTEROL FS 2.5 MG/3 ML VIAL.NEB NEB SCH ×4 (00:37→19:22)
[2022-08-07 02:28] VITALS: BP 135/80
[2022-08-07] MEDS: BLOOD SUGAR DIAGNOSTIC 1 EACH STRIP IN SCH ×4 (05:02→23:47)
[2022-08-07] MEDS: PANTOPRAZOLE 40 MG/PACK PACK GT SCH (05:02)
[2022-08-07] MEDS: INSULIN REGULAR, HUMAN 100 UNIT/ML 3 ML VIAL SQ PRN ×4 (05:03→23:49)
[2022-08-07 07:16] VITALS: BP 125/64
[2022-08-07] MEDS: ASPIRIN 81 MG TAB.CHEW GT SCH (09:47)
[2022-08-07] MEDS: DOCUSATE SODIUM LIQ 100 MG/10 ML UDC GT SCH ×3 (09:47→17:00)
[2022-08-07] MEDS: ACIDOPHILUS/BULGARICUS 1 EACH TAB.CHEW GT SCH ×2 (09:47→17:00)
[2022-08-07] MEDS: FERROUS SULFATE (325 MG) 325 MG/TAB TABLET GT SCH (09:47)
[2022-08-07] MEDS: ASCORBIC ACID 500 MG TABLET GT SCH (09:48)
[2022-08-07] MEDS: ZINC SULFATE 220 MG CAPSULE GT SCH (09:48)
[2022-08-07] MEDS: PROSOURCE / PROSTAT (PYXIS) 30 ML UDC GT SCH ×2 (09:48→17:00)
[2022-08-07] MEDS: POLYETHYLENE GLYCOL 3350 17 GM POWD.PACK GT SCH (09:48)
[2022-08-07] MEDS: ENOXAPARIN SODIUM 40 MG/0.4 ML DISP.SYRIN SQ SCH (09:50)
[2022-08-07] MEDS: VITAMINS A AND D 56.7 GM TUBE TP SCH ×2 (09:51→21:38)
[2022-08-07] MEDS: NEOMY SULF/BACITRAC ZN/POLY 15 GM TUBE TP SCH ×2 (09:51→21:38)
[2022-08-07 11:40] VITALS: BP 120/59
[2022-08-07] MEDS: VITAL AF 1.2 1,000 ML BOTTLE GT PRN (13:01)
[2022-08-07 19:39] VITALS: BP 105/58
[2022-08-07] MEDS: MELATONIN 3 MG TABLET GT SCH (21:38)
[2022-08-07] MEDS: ATORVASTATIN 40 MG TABLET GT SCH (21:38)
[2022-08-07] MEDS: SENNOSIDES 8.6 MG TABLET GT SCH (21:38)
[2022-08-07] MEDS: TAMSULOSIN 0.4 MG CAP.SR.24H GT SCH (21:38)
[2022-08-07] MEDS: INSULIN GLARGINE, 100 UNIT/ML CARTRIDGE SQ SCH (21:39)
[2022-08-08 00:02] VITALS: BP 106/64
[2022-08-08] MEDS: ALBUTEROL FS 2.5 MG/3 ML VIAL.NEB NEB SCH ×4 (00:59→20:15)
[2022-08-08] MEDS: PANTOPRAZOLE 40 MG/PACK PACK GT SCH (05:49)
[2022-08-08] MEDS: INSULIN REGULAR, HUMAN 100 UNIT/ML 3 ML VIAL SQ PRN ×4 (05:49→23:33)
[2022-08-08] MEDS: BLOOD SUGAR DIAGNOSTIC 1 EACH STRIP IN SCH ×4 (05:49→23:32)
[2022-08-08 07:17] VITALS: BP 125/57
[2022-08-08] MEDS: PROSOURCE / PROSTAT (PYXIS) 30 ML UDC GT SCH ×2 (09:57→17:38)
[2022-08-08] MEDS: DOCUSATE SODIUM LIQ 100 MG/10 ML UDC GT SCH ×3 (09:57→17:38)
[2022-08-08] MEDS: ASPIRIN 81 MG TAB.CHEW GT SCH (09:57)
[2022-08-08] MEDS: FERROUS SULFATE (325 MG) 325 MG/TAB TABLET GT SCH (09:57)
[2022-08-08] MEDS: POLYETHYLENE GLYCOL 3350 17 GM POWD.PACK GT SCH (09:57)
[2022-08-08] MEDS: ACIDOPHILUS/BULGARICUS 1 EACH TAB.CHEW GT SCH ×2 (09:57→17:38)
[2022-08-08] MEDS: ASCORBIC ACID 500 MG TABLET GT SCH (09:58)
[2022-08-08] MEDS: ENOXAPARIN SODIUM 40 MG/0.4 ML DISP.SYRIN SQ SCH (09:58)
[2022-08-08] MEDS: ZINC SULFATE 220 MG CAPSULE GT SCH (09:58)
[2022-08-08] MEDS: VITAMINS A AND D 56.7 GM TUBE TP SCH ×2 (09:59→21:06)
[2022-08-08] MEDS: NEOMY SULF/BACITRAC ZN/POLY 15 GM TUBE TP SCH ×2 (09:59→21:06)
[2022-08-08 11:59] VITALS: BP 114/67
--- NOTE | 2022-08-08 16:49 | NUR ---
Pt's Rosaline came to visit. Offered flu and Moderna Covid bivalent booster to her. She said she is still thinking about whether or not she wants the flu vaccine to be given to the pt. Discussed risks, benefits, and side effects with her. She said she will discuss it with her son. As for the Moderna Covid bivalent booster, she said she definitely does not want it to be given to pt. Also discussed risks, benefits, and side effects with her, but she still refused it.
[2022-08-08 19:46] VITALS: BP 98/61
[2022-08-08] MEDS: SENNOSIDES 8.6 MG TABLET GT SCH (21:06)
[2022-08-08] MEDS: TAMSULOSIN 0.4 MG CAP.SR.24H GT SCH (21:06)
[2022-08-08] MEDS: INSULIN GLARGINE, 100 UNIT/ML CARTRIDGE SQ SCH (21:06)
[2022-08-08] MEDS: MELATONIN 3 MG TABLET GT SCH (21:06)
[2022-08-08] MEDS: ATORVASTATIN 40 MG TABLET GT SCH (21:06)
[2022-08-09 00:08] VITALS: BP 101/56
[2022-08-09] MEDS: ALBUTEROL FS 2.5 MG/3 ML VIAL.NEB NEB SCH ×4 (02:28→19:27)
[2022-08-09] MEDS: BLOOD SUGAR DIAGNOSTIC 1 EACH STRIP IN SCH ×3 (06:14→17:46)
[2022-08-09] MEDS: INSULIN REGULAR, HUMAN 100 UNIT/ML 3 ML VIAL SQ PRN ×3 (06:14→17:46)
[2022-08-09] MEDS: PANTOPRAZOLE 40 MG/PACK PACK GT SCH (06:14)
[2022-08-09 07:47] VITALS: BP 128/60
[2022-08-09] MEDS: ENOXAPARIN SODIUM 40 MG/0.4 ML DISP.SYRIN SQ SCH (09:52)
[2022-08-09] MEDS: ACIDOPHILUS/BULGARICUS 1 EACH TAB.CHEW GT SCH ×2 (09:52→17:46)
[2022-08-09] MEDS: DOCUSATE SODIUM LIQ 100 MG/10 ML UDC GT SCH ×3 (09:52→17:46)
[2022-08-09] MEDS: PROSOURCE / PROSTAT (PYXIS) 30 ML UDC GT SCH ×2 (09:52→17:46)
[2022-08-09] MEDS: ASPIRIN 81 MG TAB.CHEW GT SCH (09:52)
[2022-08-09] MEDS: POLYETHYLENE GLYCOL 3350 17 GM POWD.PACK GT SCH (09:52)
[2022-08-09] MEDS: ASCORBIC ACID 500 MG TABLET GT SCH (09:52)
[2022-08-09] MEDS: ZINC SULFATE 220 MG CAPSULE GT SCH (09:52)
[2022-08-09] MEDS: FERROUS SULFATE (325 MG) 325 MG/TAB TABLET GT SCH (09:52)
[2022-08-09] MEDS: VITAMINS A AND D 56.7 GM TUBE TP SCH ×2 (09:53→21:26)
[2022-08-09] MEDS: NEOMY SULF/BACITRAC ZN/POLY 15 GM TUBE TP SCH ×2 (09:53→21:26)
[2022-08-09 14:21] VITALS: BP 111/57
[2022-08-09] MEDS: VITAL AF 1.2 1,000 ML BOTTLE GT PRN (17:46)
[2022-08-09 19:21] VITALS: BP 107/58
[2022-08-09] MEDS: MELATONIN 3 MG TABLET GT SCH (21:26)
[2022-08-09] MEDS: ATORVASTATIN 40 MG TABLET GT SCH (21:26)
[2022-08-09] MEDS: TAMSULOSIN 0.4 MG CAP.SR.24H GT SCH (21:26)
[2022-08-09] MEDS: SENNOSIDES 8.6 MG TABLET GT SCH (21:26)
[2022-08-09] MEDS: INSULIN GLARGINE, 100 UNIT/ML CARTRIDGE SQ SCH (21:27)
[2022-08-10 00:21] VITALS: BP 113/61
[2022-08-10] MEDS: BLOOD SUGAR DIAGNOSTIC 1 EACH STRIP IN SCH ×4 (00:32→17:09)
[2022-08-10] MEDS: INSULIN REGULAR, HUMAN 100 UNIT/ML 3 ML VIAL SQ PRN ×4 (00:34→17:09)
[2022-08-10] MEDS: ALBUTEROL FS 2.5 MG/3 ML VIAL.NEB NEB SCH ×4 (01:49→19:40)
--- NOTE | 2022-08-10 02:40 | NUR ---
PATIENT RECEIVED ON 28% AEROSOL T-TUBE, TOLERATING WITH NO DISTRESS/SOB NOTED. SUCTIONED FOR MINIMAL, THICK, YELLOW SECRETIONS. GIVEN IN-LINE TREATMENTS WITH NO ADVERSE REACTIONS. AMBU BAG AT BEDSIDE. PULSE OXIMETER ALARM AUDIBLE AND VISIBLE. TRACH CARE DONE. Addendum: 08/10/22 at 0241 by GIANNA ARRINGTON RT Amended: Links added.
[2022-08-10] MEDS: PANTOPRAZOLE 40 MG/PACK PACK GT SCH (05:32)
[2022-08-10] MEDS: ZINC SULFATE 220 MG CAPSULE GT SCH (09:01)
[2022-08-10] MEDS: ASPIRIN 81 MG TAB.CHEW GT SCH (09:01)
[2022-08-10] MEDS: ENOXAPARIN SODIUM 40 MG/0.4 ML DISP.SYRIN SQ SCH (09:01)
[2022-08-10] MEDS: ACIDOPHILUS/BULGARICUS 1 EACH TAB.CHEW GT SCH ×2 (09:01→16:01)
[2022-08-10] MEDS: PROSOURCE / PROSTAT (PYXIS) 30 ML UDC GT SCH ×2 (09:01→16:01)
[2022-08-10] MEDS: NEOMY SULF/BACITRAC ZN/POLY 15 GM TUBE TP SCH ×2 (09:01→21:25)
[2022-08-10] MEDS: FERROUS SULFATE (325 MG) 325 MG/TAB TABLET GT SCH (09:01)
[2022-08-10] MEDS: DOCUSATE SODIUM LIQ 100 MG/10 ML UDC GT SCH ×3 (09:01→16:01)
[2022-08-10] MEDS: POLYETHYLENE GLYCOL 3350 17 GM POWD.PACK GT SCH (09:01)
[2022-08-10] MEDS: VITAMINS A AND D 56.7 GM TUBE TP SCH ×2 (09:01→21:25)
[2022-08-10] MEDS: ASCORBIC ACID 500 MG TABLET GT SCH (09:01)
[2022-08-10 10:00] VITALS: BP 109/74
[2022-08-10 12:00] VITALS: BP 118/65
--- NOTE | 2022-08-10 12:31 | NUR ---
PATIENT ON 5 L @ 28% C/A. PATIENT TRACH TIE, INNER CANNULA REPLACED AND PATIENT IS STABLE W/O EVENT. Addendum: 08/10/22 at 1233 by CHAPO FALCON RT Amended: Links added.
[2022-08-10] MEDS: VITAL AF 1.2 1,000 ML BOTTLE GT PRN (14:28)
[2022-08-10 19:01] VITALS: BP 103/65
[2022-08-10] MEDS: MELATONIN 3 MG TABLET GT SCH (21:25)
[2022-08-10] MEDS: INSULIN GLARGINE, 100 UNIT/ML CARTRIDGE SQ SCH (21:25)
[2022-08-10] MEDS: ATORVASTATIN 40 MG TABLET GT SCH (21:25)
[2022-08-10] MEDS: SENNOSIDES 8.6 MG TABLET GT SCH (21:25)
[2022-08-10] MEDS: TAMSULOSIN 0.4 MG CAP.SR.24H GT SCH (21:25)
[2022-08-10 23:42] VITALS: BP 104/59
[2022-08-11] MEDS: BLOOD SUGAR DIAGNOSTIC 1 EACH STRIP IN SCH ×4 (00:11→17:36)
[2022-08-11] MEDS: INSULIN REGULAR, HUMAN 100 UNIT/ML 3 ML VIAL SQ PRN ×3 (00:11→17:36)
[2022-08-11] MEDS: ALBUTEROL FS 2.5 MG/3 ML VIAL.NEB NEB SCH ×4 (01:01→19:33)
[2022-08-11] MEDS: PANTOPRAZOLE 40 MG/PACK PACK GT SCH (05:17)
[2022-08-11] MEDS: VITAL AF 1.2 1,000 ML BOTTLE GT PRN ×2 (06:33→22:45)
[2022-08-11 07:43] VITALS: BP 121/67
[2022-08-11] MEDS: ASCORBIC ACID 500 MG TABLET GT SCH (09:47)
[2022-08-11] MEDS: VITAMINS A AND D 56.7 GM TUBE TP SCH ×2 (09:47→20:16)
[2022-08-11] MEDS: ENOXAPARIN SODIUM 40 MG/0.4 ML DISP.SYRIN SQ SCH (09:47)
[2022-08-11] MEDS: PROSOURCE / PROSTAT (PYXIS) 30 ML UDC GT SCH ×2 (09:47→16:36)
[2022-08-11] MEDS: DOCUSATE SODIUM LIQ 100 MG/10 ML UDC GT SCH ×3 (09:47→16:36)
[2022-08-11] MEDS: ACIDOPHILUS/BULGARICUS 1 EACH TAB.CHEW GT SCH ×2 (09:47→16:36)
[2022-08-11] MEDS: ASPIRIN 81 MG TAB.CHEW GT SCH (09:47)
[2022-08-11] MEDS: FERROUS SULFATE (325 MG) 325 MG/TAB TABLET GT SCH (09:47)
[2022-08-11] MEDS: NEOMY SULF/BACITRAC ZN/POLY 15 GM TUBE TP SCH ×2 (09:47→20:16)
[2022-08-11] MEDS: POLYETHYLENE GLYCOL 3350 17 GM POWD.PACK GT SCH (09:47)
[2022-08-11] MEDS: ZINC SULFATE 220 MG CAPSULE GT SCH (09:47)
[2022-08-11 18:03] VITALS: BP 125/58
[2022-08-11 19:31] VITALS: BP 124/63
[2022-08-11] MEDS: TAMSULOSIN 0.4 MG CAP.SR.24H GT SCH (22:44)
[2022-08-11] MEDS: ATORVASTATIN 40 MG TABLET GT SCH (22:44)
[2022-08-11] MEDS: SENNOSIDES 8.6 MG TABLET GT SCH (22:45)
[2022-08-11] MEDS: INSULIN GLARGINE, 100 UNIT/ML CARTRIDGE SQ SCH (22:45)
[2022-08-11] MEDS: MELATONIN 3 MG TABLET GT SCH (22:45)
[2022-08-12] MEDS: BLOOD SUGAR DIAGNOSTIC 1 EACH STRIP IN SCH ×5 (00:14→23:35)
[2022-08-12 00:29] VITALS: BP 113/57
[2022-08-12] MEDS: ALBUTEROL FS 2.5 MG/3 ML VIAL.NEB NEB SCH ×4 (00:54→19:33)
[2022-08-12] MEDS: PANTOPRAZOLE 40 MG/PACK PACK GT SCH (05:15)
--- NOTE | 2022-08-12 07:50 | NUR ---
RT NOTE: PT RECEIVED STABLE UNABLE TO FOLLOW COMMANDS. REACTIVE TO STIM. PT TRACH PATENT AND SECURE. PT ON CA ON CORRECT LITER FLOW. BAG AND MASK AT BEDSIDE AND SPARE TRACH. PT SHOWS NO SIGNS OF DISTRESS. BILAT BREATH SOUNDS AND CHEST RISE OBSERVED WILL CONTINUE CURRENT THERAPY.
[2022-08-12 09:03] VITALS: BP 103/61
[2022-08-12] MEDS: ZINC SULFATE 220 MG CAPSULE GT SCH (09:40)
[2022-08-12] MEDS: ACIDOPHILUS/BULGARICUS 1 EACH TAB.CHEW GT SCH ×2 (09:40→16:56)
[2022-08-12] MEDS: PROSOURCE / PROSTAT (PYXIS) 30 ML UDC GT SCH ×2 (09:40→16:56)
[2022-08-12] MEDS: POLYETHYLENE GLYCOL 3350 17 GM POWD.PACK GT SCH (09:40)
[2022-08-12] MEDS: FERROUS SULFATE (325 MG) 325 MG/TAB TABLET GT SCH (09:40)
[2022-08-12] MEDS: ASPIRIN 81 MG TAB.CHEW GT SCH (09:40)
[2022-08-12] MEDS: ASCORBIC ACID 500 MG TABLET GT SCH (09:40)
[2022-08-12] MEDS: DOCUSATE SODIUM LIQ 100 MG/10 ML UDC GT SCH ×3 (09:40→16:56)
[2022-08-12] MEDS: NEOMY SULF/BACITRAC ZN/POLY 15 GM TUBE TP SCH ×2 (09:41→21:26)
[2022-08-12] MEDS: VITAMINS A AND D 56.7 GM TUBE TP SCH ×2 (09:41→21:27)
[2022-08-12] MEDS: ENOXAPARIN SODIUM 40 MG/0.4 ML DISP.SYRIN SQ SCH (09:41)
[2022-08-12 12:00] VITALS: BP 98/52
[2022-08-12] MEDS: INSULIN REGULAR, HUMAN 100 UNIT/ML 3 ML VIAL SQ PRN ×3 (12:32→23:36)
[2022-08-12] MEDS: VITAL AF 1.2 1,000 ML BOTTLE GT PRN (18:24)
[2022-08-12 19:48] VITALS: BP 106/60
[2022-08-12] MEDS: SENNOSIDES 8.6 MG TABLET GT SCH (21:27)
[2022-08-12] MEDS: MELATONIN 3 MG TABLET GT SCH (21:27)
[2022-08-12] MEDS: ATORVASTATIN 40 MG TABLET GT SCH (21:27)
[2022-08-12] MEDS: TAMSULOSIN 0.4 MG CAP.SR.24H GT SCH (21:27)
[2022-08-12] MEDS: INSULIN GLARGINE, 100 UNIT/ML CARTRIDGE SQ SCH (21:28)
[2022-08-13] MEDS: ALBUTEROL FS 2.5 MG/3 ML VIAL.NEB NEB SCH ×4 (01:35→19:25)
[2022-08-13 01:43] VITALS: BP 110/58
[2022-08-13] MEDS: PANTOPRAZOLE 40 MG/PACK PACK GT SCH (05:29)
[2022-08-13] MEDS: BLOOD SUGAR DIAGNOSTIC 1 EACH STRIP IN SCH ×3 (05:29→17:18)
[2022-08-13] MEDS: INSULIN REGULAR, HUMAN 100 UNIT/ML 3 ML VIAL SQ PRN ×3 (05:29→17:20)
[2022-08-13 08:02] VITALS: BP 129/62
[2022-08-13] MEDS: ASCORBIC ACID 500 MG TABLET GT SCH (09:01)
[2022-08-13] MEDS: ACIDOPHILUS/BULGARICUS 1 EACH TAB.CHEW GT SCH ×2 (09:01→16:18)
[2022-08-13] MEDS: ZINC SULFATE 220 MG CAPSULE GT SCH (09:01)
[2022-08-13] MEDS: POLYETHYLENE GLYCOL 3350 17 GM POWD.PACK GT SCH (09:01)
[2022-08-13] MEDS: PROSOURCE / PROSTAT (PYXIS) 30 ML UDC GT SCH ×2 (09:01→16:18)
[2022-08-13] MEDS: DOCUSATE SODIUM LIQ 100 MG/10 ML UDC GT SCH ×3 (09:01→16:17)
[2022-08-13] MEDS: FERROUS SULFATE (325 MG) 325 MG/TAB TABLET GT SCH (09:01)
[2022-08-13] MEDS: ASPIRIN 81 MG TAB.CHEW GT SCH (09:01)
[2022-08-13] MEDS: VITAMINS A AND D 56.7 GM TUBE TP SCH ×2 (09:02→20:57)
[2022-08-13] MEDS: NEOMY SULF/BACITRAC ZN/POLY 15 GM TUBE TP SCH ×2 (09:02→20:57)
[2022-08-13] MEDS: ENOXAPARIN SODIUM 40 MG/0.4 ML DISP.SYRIN SQ SCH (09:02)
--- NOTE | 2022-08-13 09:30 | NUR ---
Seen and examined by Dr. Colón, no new order given.
[2022-08-13 13:22] VITALS: BP 124/71
--- NOTE | 2022-08-13 14:16 | NUR ---
Dental Exam to be completed by Dr. Gavin on 08/16/2022 at 11:30 am. PIERRE faxed facesheet to Dr. Gavin's office ATTN: Erum [phone].
[2022-08-13] MEDS: VITAL AF 1.2 1,000 ML BOTTLE GT PRN (16:18)
[2022-08-13 19:37] VITALS: BP 116/62
[2022-08-13] MEDS: TAMSULOSIN 0.4 MG CAP.SR.24H GT SCH (21:36)
[2022-08-13] MEDS: MELATONIN 3 MG TABLET GT SCH (21:36)
[2022-08-13] MEDS: ATORVASTATIN 40 MG TABLET GT SCH (21:36)
[2022-08-13] MEDS: SENNOSIDES 8.6 MG TABLET GT SCH (21:36)
[2022-08-13] MEDS: INSULIN GLARGINE, 100 UNIT/ML CARTRIDGE SQ SCH (22:00)
[2022-08-14] MEDS: BLOOD SUGAR DIAGNOSTIC 1 EACH STRIP IN SCH ×4 (00:07→17:43)
[2022-08-14] MEDS: ALBUTEROL FS 2.5 MG/3 ML VIAL.NEB NEB SCH ×4 (01:48→19:57)
[2022-08-14 02:04] VITALS: BP 135/64
[2022-08-14] MEDS: PANTOPRAZOLE 40 MG/PACK PACK GT SCH (05:28)
[2022-08-14 07:55] VITALS: BP 108/58
[2022-08-14] MEDS: POLYETHYLENE GLYCOL 3350 17 GM POWD.PACK GT SCH (09:27)
[2022-08-14] MEDS: ASCORBIC ACID 500 MG TABLET GT SCH (09:27)
[2022-08-14] MEDS: NEOMY SULF/BACITRAC ZN/POLY 15 GM TUBE TP SCH ×2 (09:27→21:39)
[2022-08-14] MEDS: FERROUS SULFATE (325 MG) 325 MG/TAB TABLET GT SCH (09:27)
[2022-08-14] MEDS: ACIDOPHILUS/BULGARICUS 1 EACH TAB.CHEW GT SCH ×2 (09:27→17:43)
[2022-08-14] MEDS: DOCUSATE SODIUM LIQ 100 MG/10 ML UDC GT SCH ×3 (09:27→17:43)
[2022-08-14] MEDS: VITAMINS A AND D 56.7 GM TUBE TP SCH ×2 (09:27→21:39)
[2022-08-14] MEDS: ASPIRIN 81 MG TAB.CHEW GT SCH (09:27)
[2022-08-14] MEDS: ZINC SULFATE 220 MG CAPSULE GT SCH (09:27)
[2022-08-14] MEDS: PROSOURCE / PROSTAT (PYXIS) 30 ML UDC GT SCH ×2 (09:27→17:43)
[2022-08-14] MEDS: ENOXAPARIN SODIUM 40 MG/0.4 ML DISP.SYRIN SQ SCH (09:45)
[2022-08-14 12:19] VITALS: BP 112/61
[2022-08-14] MEDS: VITAL AF 1.2 1,000 ML BOTTLE GT PRN (12:48)
[2022-08-14] MEDS: INSULIN REGULAR, HUMAN 100 UNIT/ML 3 ML VIAL SQ PRN ×2 (13:06→17:48)
[2022-08-14 19:38] VITALS: BP 125/67
[2022-08-14] MEDS: HYDROGEN PEROXIDE 480 ML BOTTLE MC SCH (21:34)
[2022-08-14] MEDS: TAMSULOSIN 0.4 MG CAP.SR.24H GT SCH (21:39)
[2022-08-14] MEDS: SENNOSIDES 8.6 MG TABLET GT SCH (21:39)
[2022-08-14] MEDS: MELATONIN 3 MG TABLET GT SCH (21:39)
[2022-08-14] MEDS: ATORVASTATIN 40 MG TABLET GT SCH (21:39)
[2022-08-14] MEDS: INSULIN GLARGINE, 100 UNIT/ML CARTRIDGE SQ SCH (21:41)
[2022-08-15] MEDS: BLOOD SUGAR DIAGNOSTIC 1 EACH STRIP IN SCH ×5 (00:04→23:59)
[2022-08-15] MEDS: INSULIN REGULAR, HUMAN 100 UNIT/ML 3 ML VIAL SQ PRN ×4 (00:06→18:19)
[2022-08-15 00:28] VITALS: BP 120/63
[2022-08-15] MEDS: ALBUTEROL FS 2.5 MG/3 ML VIAL.NEB NEB SCH ×4 (02:10→19:41)
[2022-08-15] MEDS: PANTOPRAZOLE 40 MG/PACK PACK GT SCH (05:56)
[2022-08-15] MEDS: VITAL AF 1.2 1,000 ML BOTTLE GT PRN ×2 (06:20→19:04)
[2022-08-15 07:39] VITALS: BP 121/58
[2022-08-15] MEDS: VITAMINS A AND D 56.7 GM TUBE TP SCH ×2 (09:00→21:16)
[2022-08-15] MEDS: FERROUS SULFATE (325 MG) 325 MG/TAB TABLET GT SCH (09:00)
[2022-08-15] MEDS: DOCUSATE SODIUM LIQ 100 MG/10 ML UDC GT SCH ×3 (09:00→17:00)
[2022-08-15] MEDS: NEOMY SULF/BACITRAC ZN/POLY 15 GM TUBE TP SCH ×2 (09:00→21:16)
[2022-08-15] MEDS: ZINC SULFATE 220 MG CAPSULE GT SCH (09:00)
[2022-08-15] MEDS: POLYETHYLENE GLYCOL 3350 17 GM POWD.PACK GT SCH (09:00)
[2022-08-15] MEDS: ASCORBIC ACID 500 MG TABLET GT SCH (09:00)
[2022-08-15] MEDS: PROSOURCE / PROSTAT (PYXIS) 30 ML UDC GT SCH ×2 (09:00→17:00)
[2022-08-15] MEDS: ENOXAPARIN SODIUM 40 MG/0.4 ML DISP.SYRIN SQ SCH (09:00)
[2022-08-15] MEDS: ACIDOPHILUS/BULGARICUS 1 EACH TAB.CHEW GT SCH ×2 (09:00→17:00)
[2022-08-15] MEDS: ASPIRIN 81 MG TAB.CHEW GT SCH (09:00)
[2022-08-15] MEDS: HYDROGEN PEROXIDE 480 ML BOTTLE MC SCH ×2 (09:11→19:41)
[2022-08-15 12:13] VITALS: BP 128/59
[2022-08-15 19:18] VITALS: BP 114/57
[2022-08-15] MEDS: MELATONIN 3 MG TABLET GT SCH (21:16)
[2022-08-15] MEDS: SENNOSIDES 8.6 MG TABLET GT SCH (21:16)
[2022-08-15] MEDS: ATORVASTATIN 40 MG TABLET GT SCH (21:16)
[2022-08-15] MEDS: TAMSULOSIN 0.4 MG CAP.SR.24H GT SCH (21:16)
[2022-08-15] MEDS: INSULIN GLARGINE, 100 UNIT/ML CARTRIDGE SQ SCH (21:17)
[2022-08-16 00:52] VITALS: BP 129/59
[2022-08-16] MEDS: ALBUTEROL FS 2.5 MG/3 ML VIAL.NEB NEB SCH ×4 (02:02→20:14)
[2022-08-16] MEDS: BLOOD SUGAR DIAGNOSTIC 1 EACH STRIP IN SCH ×3 (05:18→17:48)
[2022-08-16] MEDS: PANTOPRAZOLE 40 MG/PACK PACK GT SCH (05:18)
[2022-08-16] MEDS: INSULIN REGULAR, HUMAN 100 UNIT/ML 3 ML VIAL SQ PRN ×4 (05:19→17:50)
[2022-08-16 07:56] VITALS: BP 121/66
[2022-08-16] MEDS: HYDROGEN PEROXIDE 480 ML BOTTLE MC SCH ×2 (09:26→20:14)
[2022-08-16] MEDS: POLYETHYLENE GLYCOL 3350 17 GM POWD.PACK GT SCH (09:33)
[2022-08-16] MEDS: ASPIRIN 81 MG TAB.CHEW GT SCH (09:33)
[2022-08-16] MEDS: FERROUS SULFATE (325 MG) 325 MG/TAB TABLET GT SCH (09:33)
[2022-08-16] MEDS: ASCORBIC ACID 500 MG TABLET GT SCH (09:33)
[2022-08-16] MEDS: DOCUSATE SODIUM LIQ 100 MG/10 ML UDC GT SCH ×3 (09:33→17:48)
[2022-08-16] MEDS: ACIDOPHILUS/BULGARICUS 1 EACH TAB.CHEW GT SCH ×2 (09:33→17:48)
[2022-08-16] MEDS: ZINC SULFATE 220 MG CAPSULE GT SCH (09:33)
[2022-08-16] MEDS: PROSOURCE / PROSTAT (PYXIS) 30 ML UDC GT SCH ×2 (09:33→17:48)
[2022-08-16] MEDS: NEOMY SULF/BACITRAC ZN/POLY 15 GM TUBE TP SCH ×2 (09:36→21:30)
[2022-08-16] MEDS: ENOXAPARIN SODIUM 40 MG/0.4 ML DISP.SYRIN SQ SCH (09:36)
[2022-08-16] MEDS: VITAMINS A AND D 56.7 GM TUBE TP SCH ×2 (09:36→21:30)
--- NOTE | 2022-08-16 12:45 | NUR ---
Seen and examined by Dr. Mack, no new order given.
--- NOTE | 2022-08-16 16:43 | NUR ---
Visitation Guidelines: SW emailed the pt.'s , Rosaline the update guidelines as recommended by [facility] department of public health: As of Jul 04, 2022, the CDC recommends that all people 12 years of age and older receive a booster dose of an updated (bivalent) COVID-19 vaccine at least 2 months after their last COVID-19 vaccine dose. Entry screening (recent positive viral test for SARS-CoV-2, COVID symptoms, close contact within the lat 14 days) is required for all visitors.General visitors entering the facility for indoor visitation must be screened for vaccination status. UPON EACH VISIT Visitor must show proof of: 1) up to date status with all COVID-19 vaccine and booster doses; OR 2) negative SARS-CoV-2 test within 2 days if lab-based PCR or within 1 day if [id number] antigen; OR 3) recovered from COVID-19 within the last 90 days. Per CDC, an individual is up to date only if either 1) its been <2 months since completion of the primary series or last (monovalent) booster; OR 2) both the primary series and the updated bivalent booster are completed for everyone 12 years and older. While visiting the patient: o All visitors that are NOT up to date with vaccines (Bivalent Booster) must maintain 6 feet physical distancing from the patient, at all times. o If both resident and visitor(s) are up to date with COVID-19 vaccines, physical distancing is not required and may include physical contact (e.g., hugs, holding hands). Length of visit will be 2 hours.
[2022-08-16] MEDS: VITAL AF 1.2 1,000 ML BOTTLE GT PRN (17:48)
[2022-08-16 20:50] VITALS: BP 129/66
[2022-08-16] MEDS: ATORVASTATIN 40 MG TABLET GT SCH (21:30)
[2022-08-16] MEDS: INSULIN GLARGINE, 100 UNIT/ML CARTRIDGE SQ SCH (21:30)
[2022-08-16] MEDS: MELATONIN 3 MG TABLET GT SCH (21:30)
[2022-08-16] MEDS: SENNOSIDES 8.6 MG TABLET GT SCH (21:30)
[2022-08-16] MEDS: TAMSULOSIN 0.4 MG CAP.SR.24H GT SCH (21:30)
[2022-08-16 23:50] VITALS: BP 122/60
[2022-08-17] MEDS: BLOOD SUGAR DIAGNOSTIC 1 EACH STRIP IN SCH ×5 (00:38→23:19)
[2022-08-17] MEDS: INSULIN REGULAR, HUMAN 100 UNIT/ML 3 ML VIAL SQ PRN ×5 (00:39→23:20)
[2022-08-17] MEDS: ALBUTEROL FS 2.5 MG/3 ML VIAL.NEB NEB SCH ×4 (00:43→19:15)
[2022-08-17] MEDS: PANTOPRAZOLE 40 MG/PACK PACK GT SCH (05:30)
[2022-08-17 07:47] VITALS: BP 107/61
[2022-08-17] MEDS: DOCUSATE SODIUM LIQ 100 MG/10 ML UDC GT SCH ×3 (08:50→16:37)
[2022-08-17] MEDS: ASPIRIN 81 MG TAB.CHEW GT SCH (08:50)
[2022-08-17] MEDS: PROSOURCE / PROSTAT (PYXIS) 30 ML UDC GT SCH ×2 (08:51→16:37)
[2022-08-17] MEDS: FERROUS SULFATE (325 MG) 325 MG/TAB TABLET GT SCH (08:51)
[2022-08-17] MEDS: ACIDOPHILUS/BULGARICUS 1 EACH TAB.CHEW GT SCH ×2 (08:51→16:37)
[2022-08-17] MEDS: ZINC SULFATE 220 MG CAPSULE GT SCH (08:51)
[2022-08-17] MEDS: POLYETHYLENE GLYCOL 3350 17 GM POWD.PACK GT SCH (08:51)
[2022-08-17] MEDS: ASCORBIC ACID 500 MG TABLET GT SCH (08:51)
[2022-08-17] MEDS: VITAMINS A AND D 56.7 GM TUBE TP SCH ×2 (08:53→21:16)
[2022-08-17] MEDS: ENOXAPARIN SODIUM 40 MG/0.4 ML DISP.SYRIN SQ SCH (08:53)
[2022-08-17] MEDS: NEOMY SULF/BACITRAC ZN/POLY 15 GM TUBE TP SCH (09:00)
[2022-08-17] MEDS: HYDROGEN PEROXIDE 480 ML BOTTLE MC SCH ×2 (09:07→21:14)
[2022-08-17] MEDS: VITAL AF 1.2 1,000 ML BOTTLE GT PRN (16:38)
[2022-08-17 20:37] VITALS: BP 107/54
[2022-08-17] MEDS: MELATONIN 3 MG TABLET GT SCH (21:16)
[2022-08-17] MEDS: TAMSULOSIN 0.4 MG CAP.SR.24H GT SCH (21:16)
[2022-08-17] MEDS: SENNOSIDES 8.6 MG TABLET GT SCH (21:16)
[2022-08-17] MEDS: ATORVASTATIN 40 MG TABLET GT SCH (21:16)
[2022-08-17] MEDS: INSULIN GLARGINE, 100 UNIT/ML CARTRIDGE SQ SCH (21:57)
[2022-08-17 23:17] VITALS: BP 115/62
[2022-08-18] MEDS: ALBUTEROL FS 2.5 MG/3 ML VIAL.NEB NEB SCH ×4 (01:18→19:55)
[2022-08-18] MEDS: PANTOPRAZOLE 40 MG/PACK PACK GT SCH (06:17)
[2022-08-18] MEDS: BLOOD SUGAR DIAGNOSTIC 1 EACH STRIP IN SCH ×3 (06:17→17:31)
[2022-08-18] MEDS: INSULIN REGULAR, HUMAN 100 UNIT/ML 3 ML VIAL SQ PRN ×2 (06:20→11:23)
[2022-08-18] MEDS: HYDROGEN PEROXIDE 480 ML BOTTLE MC SCH ×2 (07:20→21:15)
[2022-08-18 07:43] VITALS: BP 105/50
[2022-08-18] MEDS: ASPIRIN 81 MG TAB.CHEW GT SCH (09:20)
[2022-08-18] MEDS: ACIDOPHILUS/BULGARICUS 1 EACH TAB.CHEW GT SCH ×2 (09:21→16:51)
[2022-08-18] MEDS: DOCUSATE SODIUM LIQ 100 MG/10 ML UDC GT SCH ×3 (09:21→16:51)
[2022-08-18] MEDS: FERROUS SULFATE (325 MG) 325 MG/TAB TABLET GT SCH (09:21)
[2022-08-18] MEDS: POLYETHYLENE GLYCOL 3350 17 GM POWD.PACK GT SCH (09:22)
[2022-08-18] MEDS: PROSOURCE / PROSTAT (PYXIS) 30 ML UDC GT SCH ×2 (09:22→16:51)
[2022-08-18] MEDS: ASCORBIC ACID 500 MG TABLET GT SCH (09:22)
[2022-08-18] MEDS: ZINC SULFATE 220 MG CAPSULE GT SCH (09:22)
[2022-08-18] MEDS: VITAMINS A AND D 56.7 GM TUBE TP SCH ×2 (09:24→21:48)
[2022-08-18] MEDS: ENOXAPARIN SODIUM 40 MG/0.4 ML DISP.SYRIN SQ SCH (09:32)
[2022-08-18] MEDS: VITAL AF 1.2 1,000 ML BOTTLE GT PRN (13:08)
[2022-08-18 20:12] VITALS: BP 110/61
[2022-08-18] MEDS: TAMSULOSIN 0.4 MG CAP.SR.24H GT SCH (21:48)
[2022-08-18] MEDS: MELATONIN 3 MG TABLET GT SCH (21:48)
[2022-08-18] MEDS: SENNOSIDES 8.6 MG TABLET GT SCH (21:48)
[2022-08-18] MEDS: ATORVASTATIN 40 MG TABLET GT SCH (21:48)
[2022-08-18] MEDS: INSULIN GLARGINE, 100 UNIT/ML CARTRIDGE SQ SCH (21:49)
[2022-08-19] MEDS: BLOOD SUGAR DIAGNOSTIC 1 EACH STRIP IN SCH ×4 (00:16→17:59)
[2022-08-19] MEDS: INSULIN REGULAR, HUMAN 100 UNIT/ML 3 ML VIAL SQ PRN ×4 (00:18→17:59)
[2022-08-19 00:36] VITALS: BP 123/60
[2022-08-19] MEDS: ALBUTEROL FS 2.5 MG/3 ML VIAL.NEB NEB SCH ×4 (01:46→18:52)
[2022-08-19] MEDS: PANTOPRAZOLE 40 MG/PACK PACK GT SCH (05:29)
[2022-08-19] MEDS: VITAL AF 1.2 1,000 ML BOTTLE GT PRN (06:02)
[2022-08-19 07:39] VITALS: BP 119/68
[2022-08-19] MEDS: VITAMINS A AND D 56.7 GM TUBE TP SCH ×2 (09:00→21:40)
[2022-08-19] MEDS: HYDROGEN PEROXIDE 480 ML BOTTLE MC SCH ×2 (09:14→20:22)
[2022-08-19] MEDS: ASPIRIN 81 MG TAB.CHEW GT SCH (09:57)
[2022-08-19] MEDS: POLYETHYLENE GLYCOL 3350 17 GM POWD.PACK GT SCH (09:58)
[2022-08-19] MEDS: ACIDOPHILUS/BULGARICUS 1 EACH TAB.CHEW GT SCH ×2 (09:58→17:55)
[2022-08-19] MEDS: FERROUS SULFATE (325 MG) 325 MG/TAB TABLET GT SCH (09:58)
[2022-08-19] MEDS: DOCUSATE SODIUM LIQ 100 MG/10 ML UDC GT SCH ×3 (09:58→17:55)
[2022-08-19] MEDS: ASCORBIC ACID 500 MG TABLET GT SCH (09:59)
[2022-08-19] MEDS: PROSOURCE / PROSTAT (PYXIS) 30 ML UDC GT SCH ×2 (09:59→17:55)
[2022-08-19] MEDS: ZINC SULFATE 220 MG CAPSULE GT SCH (09:59)
[2022-08-19] MEDS: ENOXAPARIN SODIUM 40 MG/0.4 ML DISP.SYRIN SQ SCH (10:00)
[2022-08-19 11:36] VITALS: BP 125/84
--- NOTE | 2022-08-19 11:47 | NUR ---
Family Invite to IDT: PIERRE emailed the pt.'s , Rosaline inviting them to participate in 08/23/2022 IDT Meeting. PIERRE will follow up accordingly.
[2022-08-19 19:16] VITALS: BP 112/60
[2022-08-19] MEDS: TAMSULOSIN 0.4 MG CAP.SR.24H GT SCH (21:40)
[2022-08-19] MEDS: MELATONIN 3 MG TABLET GT SCH (21:40)
[2022-08-19] MEDS: ATORVASTATIN 40 MG TABLET GT SCH (21:40)
[2022-08-19] MEDS: SENNOSIDES 8.6 MG TABLET GT SCH (21:40)
[2022-08-19] MEDS: INSULIN GLARGINE, 100 UNIT/ML CARTRIDGE SQ SCH (21:41)
[2022-08-20] MEDS: ALBUTEROL FS 2.5 MG/3 ML VIAL.NEB NEB SCH ×4 (00:32→20:09)
[2022-08-20] MEDS: BLOOD SUGAR DIAGNOSTIC 1 EACH STRIP IN SCH ×5 (00:45→23:21)
[2022-08-20] MEDS: INSULIN REGULAR, HUMAN 100 UNIT/ML 3 ML VIAL SQ PRN ×5 (00:47→23:22)
[2022-08-20] MEDS: VITAL AF 1.2 1,000 ML BOTTLE GT PRN ×2 (01:02→18:19)
[2022-08-20] MEDS: PANTOPRAZOLE 40 MG/PACK PACK GT SCH (05:33)
[2022-08-20] MEDS: HYDROGEN PEROXIDE 480 ML BOTTLE MC PRN (07:42)
--- NOTE | 2022-08-20 08:52 | NUR ---
PATIENT FOUND ON C/A 28% @5 L O2. PATIENT TRACH IN PLACE AND IN STABLE STATE. AWAKE BUT NONE RESPONSIVE. Addendum: 08/20/22 at 0853 by CHAPO FALCON RT Amended: Links added.
[2022-08-20] MEDS: DOCUSATE SODIUM LIQ 100 MG/10 ML UDC GT SCH ×3 (08:59→17:08)
[2022-08-20] MEDS: ASPIRIN 81 MG TAB.CHEW GT SCH (08:59)
[2022-08-20] MEDS: FERROUS SULFATE (325 MG) 325 MG/TAB TABLET GT SCH (08:59)
[2022-08-20] MEDS: POLYETHYLENE GLYCOL 3350 17 GM POWD.PACK GT SCH (09:00)
[2022-08-20] MEDS: PROSOURCE / PROSTAT (PYXIS) 30 ML UDC GT SCH ×2 (09:00→17:08)
[2022-08-20] MEDS: ASCORBIC ACID 500 MG TABLET GT SCH (09:00)
[2022-08-20] MEDS: ACIDOPHILUS/BULGARICUS 1 EACH TAB.CHEW GT SCH ×2 (09:00→17:08)
[2022-08-20] MEDS: ZINC SULFATE 220 MG CAPSULE GT SCH (09:00)
[2022-08-20] MEDS: VITAMINS A AND D 56.7 GM TUBE TP SCH ×2 (09:01→21:36)
[2022-08-20] MEDS: ENOXAPARIN SODIUM 40 MG/0.4 ML DISP.SYRIN SQ SCH (09:01)
[2022-08-20] MEDS: HYDROGEN PEROXIDE 480 ML BOTTLE MC SCH ×2 (09:04→20:09)
--- NOTE | 2022-08-20 09:45 | NUR ---
Seen and examined by Dr. Colón, no new order given.
[2022-08-20 19:47] VITALS: BP 119/55
[2022-08-20] MEDS: ATORVASTATIN 40 MG TABLET GT SCH (21:36)
[2022-08-20] MEDS: TAMSULOSIN 0.4 MG CAP.SR.24H GT SCH (21:36)
[2022-08-20] MEDS: MELATONIN 3 MG TABLET GT SCH (21:36)
[2022-08-20] MEDS: SENNOSIDES 8.6 MG TABLET GT SCH (21:36)
[2022-08-20] MEDS: INSULIN GLARGINE, 100 UNIT/ML CARTRIDGE SQ SCH (21:37)
[2022-08-21] MEDS: ALBUTEROL FS 2.5 MG/3 ML VIAL.NEB NEB SCH ×4 (01:57→19:57)
[2022-08-21] MEDS: PANTOPRAZOLE 40 MG/PACK PACK GT SCH (05:48)
[2022-08-21] MEDS: BLOOD SUGAR DIAGNOSTIC 1 EACH STRIP IN SCH ×4 (05:49→23:53)
[2022-08-21] MEDS: INSULIN REGULAR, HUMAN 100 UNIT/ML 3 ML VIAL SQ PRN ×4 (05:50→23:54)
[2022-08-21 08:00] VITALS: BP 107/54
[2022-08-21] MEDS: HYDROGEN PEROXIDE 480 ML BOTTLE MC SCH ×2 (08:21→19:57)
[2022-08-21] MEDS: VITAMINS A AND D 56.7 GM TUBE TP SCH ×2 (09:00→21:41)
[2022-08-21] MEDS: PROSOURCE / PROSTAT (PYXIS) 30 ML UDC GT SCH ×2 (09:59→16:31)
[2022-08-21] MEDS: ZINC SULFATE 220 MG CAPSULE GT SCH (09:59)
[2022-08-21] MEDS: ASCORBIC ACID 500 MG TABLET GT SCH (09:59)
[2022-08-21] MEDS: ASPIRIN 81 MG TAB.CHEW GT SCH (09:59)
[2022-08-21] MEDS: DOCUSATE SODIUM LIQ 100 MG/10 ML UDC GT SCH ×3 (09:59→16:31)
[2022-08-21] MEDS: FERROUS SULFATE (325 MG) 325 MG/TAB TABLET GT SCH (09:59)
[2022-08-21] MEDS: ACIDOPHILUS/BULGARICUS 1 EACH TAB.CHEW GT SCH ×2 (09:59→16:31)
[2022-08-21] MEDS: POLYETHYLENE GLYCOL 3350 17 GM POWD.PACK GT SCH (09:59)
[2022-08-21] MEDS: ENOXAPARIN SODIUM 40 MG/0.4 ML DISP.SYRIN SQ SCH (10:00)
[2022-08-21 12:00] VITALS: BP 94/39
[2022-08-21] MEDS: VITAL AF 1.2 1,000 ML BOTTLE GT PRN (16:02)
[2022-08-21 20:00] VITALS: BP 134/79
[2022-08-21] MEDS: TAMSULOSIN 0.4 MG CAP.SR.24H GT SCH (21:41)
[2022-08-21] MEDS: MELATONIN 3 MG TABLET GT SCH (21:41)
[2022-08-21] MEDS: SENNOSIDES 8.6 MG TABLET GT SCH (21:41)
[2022-08-21] MEDS: INSULIN GLARGINE, 100 UNIT/ML CARTRIDGE SQ SCH (21:41)
[2022-08-21] MEDS: ATORVASTATIN 40 MG TABLET GT SCH (21:41)
[2022-08-22] MEDS: ALBUTEROL FS 2.5 MG/3 ML VIAL.NEB NEB SCH ×4 (01:44→19:40)
[2022-08-22] MEDS: BLOOD SUGAR DIAGNOSTIC 1 EACH STRIP IN SCH ×3 (05:53→18:20)
[2022-08-22] MEDS: PANTOPRAZOLE 40 MG/PACK PACK GT SCH (05:53)
[2022-08-22] MEDS: INSULIN REGULAR, HUMAN 100 UNIT/ML 3 ML VIAL SQ PRN ×3 (06:19→18:21)
[2022-08-22 08:00] VITALS: BP 127/72
--- NOTE | 2022-08-22 09:00 | NUR ---
INTERDISCIPLINARY PLAN OF CARE CONFERENCE took place 08/09/2022. The patients , Rosaline Brito [phone] Colón and Interdisciplinary team discussed the plan of care in detail. Current orders as well as treatments and medications were reviewed. No new orders.
[2022-08-22] MEDS: FERROUS SULFATE (325 MG) 325 MG/TAB TABLET GT SCH (09:20)
[2022-08-22] MEDS: ACIDOPHILUS/BULGARICUS 1 EACH TAB.CHEW GT SCH ×2 (09:20→17:58)
[2022-08-22] MEDS: DOCUSATE SODIUM LIQ 100 MG/10 ML UDC GT SCH ×3 (09:20→17:58)
[2022-08-22] MEDS: ASPIRIN 81 MG TAB.CHEW GT SCH (09:20)
[2022-08-22] MEDS: POLYETHYLENE GLYCOL 3350 17 GM POWD.PACK GT SCH (09:21)
[2022-08-22] MEDS: ASCORBIC ACID 500 MG TABLET GT SCH (09:21)
[2022-08-22] MEDS: PROSOURCE / PROSTAT (PYXIS) 30 ML UDC GT SCH ×2 (09:21→17:58)
[2022-08-22] MEDS: ZINC SULFATE 220 MG CAPSULE GT SCH (09:21)
[2022-08-22] MEDS: VITAMINS A AND D 56.7 GM TUBE TP SCH ×2 (09:22→21:57)
[2022-08-22] MEDS: ENOXAPARIN SODIUM 40 MG/0.4 ML DISP.SYRIN SQ SCH (09:22)
[2022-08-22] MEDS: HYDROGEN PEROXIDE 480 ML BOTTLE MC SCH ×2 (09:52→19:40)
[2022-08-22] MEDS: VITAL AF 1.2 1,000 ML BOTTLE GT PRN (13:08)
[2022-08-22] MEDS ORDERED: INFLUENZA VACCINE 2022-23 0.5 ML DISP.SYRIN IM ONE (18:00)
[2022-08-22 19:04] VITALS: BP 128/67
[2022-08-22] MEDS: MAGNESIUM HYDROXIDE 30 ML UDC PO PRN (20:00)
--- NOTE | 2022-08-22 21:30 | NUR ---
Flu vaccine given to left deltoid,no adverse reaction,will continue to monitor.
[2022-08-22] MEDS: ATORVASTATIN 40 MG TABLET GT SCH (21:57)
[2022-08-22] MEDS: TAMSULOSIN 0.4 MG CAP.SR.24H GT SCH (21:57)
[2022-08-22] MEDS: MELATONIN 3 MG TABLET GT SCH (21:57)
[2022-08-22] MEDS: SENNOSIDES 8.6 MG TABLET GT SCH (21:57)
[2022-08-22] MEDS: INSULIN GLARGINE, 100 UNIT/ML CARTRIDGE SQ SCH (21:58)
[2022-08-22 23:54] VITALS: BP 134/68
[2022-08-23] MEDS: BLOOD SUGAR DIAGNOSTIC 1 EACH STRIP IN SCH ×5 (00:06→23:24)
[2022-08-23] MEDS: INSULIN REGULAR, HUMAN 100 UNIT/ML 3 ML VIAL SQ PRN ×5 (00:07→23:25)
[2022-08-23] MEDS: ALBUTEROL FS 2.5 MG/3 ML VIAL.NEB NEB SCH ×4 (01:32→18:46)
[2022-08-23] MEDS: PANTOPRAZOLE 40 MG/PACK PACK GT SCH (05:30)
--- NOTE | 2022-08-23 06:13 | NUR ---
S\P flu vaccine administration last night ,no adverse reaction ,afebrile. Will continue to monitor.
[2022-08-23] MEDS: BISACODYL SUPP (10 MG) 10 MG/SUPP.RECT SUPP.RECT RC PRN (06:44)
[2022-08-23] MEDS: HYDROGEN PEROXIDE 480 ML BOTTLE MC SCH ×2 (07:40→20:18)
[2022-08-23 08:47] VITALS: BP 126/68
[2022-08-23] MEDS: FERROUS SULFATE (325 MG) 325 MG/TAB TABLET GT SCH (09:07)
[2022-08-23] MEDS: ASPIRIN 81 MG TAB.CHEW GT SCH (09:07)
[2022-08-23] MEDS: ZINC SULFATE 220 MG CAPSULE GT SCH (09:07)
[2022-08-23] MEDS: POLYETHYLENE GLYCOL 3350 17 GM POWD.PACK GT SCH (09:07)
[2022-08-23] MEDS: DOCUSATE SODIUM LIQ 100 MG/10 ML UDC GT SCH ×3 (09:07→16:34)
[2022-08-23] MEDS: PROSOURCE / PROSTAT (PYXIS) 30 ML UDC GT SCH ×2 (09:07→16:34)
[2022-08-23] MEDS: ASCORBIC ACID 500 MG TABLET GT SCH (09:07)
[2022-08-23] MEDS: ACIDOPHILUS/BULGARICUS 1 EACH TAB.CHEW GT SCH ×2 (09:07→16:34)
[2022-08-23] MEDS: ENOXAPARIN SODIUM 40 MG/0.4 ML DISP.SYRIN SQ SCH (09:09)
[2022-08-23] MEDS: VITAMINS A AND D 56.7 GM TUBE TP SCH ×2 (09:09→20:39)
--- NOTE | 2022-08-23 14:00 | NUR ---
During IDT, reviewed patient's weight with 1 lb weight loss from last month. Station Examiner recommended to increase feeding rate to 75 cc/hr x 20 hours. Order carried out.
--- NOTE | 2022-08-23 14:20 | NUR ---
INTERDISCIPLINARY PLAN OF CARE CONFERENCE took place today. The patients , Rosaline Brito [phone] Colón and Interdisciplinary team discussed the plan of care in detail. Current orders as well as treatments and medications were reviewed.
--- NOTE | 2022-08-23 17:12 | NUR ---
S\p flu vaccine administration ,no adverse reaction ,afebrile. Will continue to monitor.
[2022-08-23 19:20] VITALS: BP 136/66
[2022-08-23] MEDS: MELATONIN 3 MG TABLET GT SCH (21:21)
[2022-08-23] MEDS: SENNOSIDES 8.6 MG TABLET GT SCH (21:21)
[2022-08-23] MEDS: ATORVASTATIN 40 MG TABLET GT SCH (21:21)
[2022-08-23] MEDS: TAMSULOSIN 0.4 MG CAP.SR.24H GT SCH (21:21)
[2022-08-23] MEDS: INSULIN GLARGINE, 100 UNIT/ML CARTRIDGE SQ SCH (21:21)
[2022-08-23 23:58] VITALS: BP 132/68
[2022-08-24] MEDS: ALBUTEROL FS 2.5 MG/3 ML VIAL.NEB NEB SCH ×4 (00:42→19:55)
[2022-08-24] MEDS: PANTOPRAZOLE 40 MG/PACK PACK GT SCH (05:02)
[2022-08-24] MEDS: VITAL AF 1.2 1,000 ML BOTTLE GT PRN ×2 (05:03→19:17)
[2022-08-24] MEDS: BLOOD SUGAR DIAGNOSTIC 1 EACH STRIP IN SCH ×4 (05:26→23:33)
[2022-08-24] MEDS: INSULIN REGULAR, HUMAN 100 UNIT/ML 3 ML VIAL SQ PRN ×4 (05:27→23:36)
--- NOTE | 2022-08-24 05:37 | NUR ---
S/p >1 day flu vac monitoring- pt stable and afebrile no a/r noted, no resp distress episode noted.
[2022-08-24] MEDS: HYDROGEN PEROXIDE 480 ML BOTTLE MC PRN (07:24)
[2022-08-24 08:04] VITALS: BP 139/80
[2022-08-24] MEDS: HYDROGEN PEROXIDE 480 ML BOTTLE MC SCH ×2 (09:00→19:55)
[2022-08-24] MEDS: DOCUSATE SODIUM LIQ 100 MG/10 ML UDC GT SCH ×3 (09:31→16:50)
[2022-08-24] MEDS: ASPIRIN 81 MG TAB.CHEW GT SCH (09:31)
[2022-08-24] MEDS: PROSOURCE / PROSTAT (PYXIS) 30 ML UDC GT SCH ×2 (09:32→16:51)
[2022-08-24] MEDS: POLYETHYLENE GLYCOL 3350 17 GM POWD.PACK GT SCH (09:32)
[2022-08-24] MEDS: ACIDOPHILUS/BULGARICUS 1 EACH TAB.CHEW GT SCH ×2 (09:32→16:50)
[2022-08-24] MEDS: FERROUS SULFATE (325 MG) 325 MG/TAB TABLET GT SCH (09:32)
[2022-08-24] MEDS: ASCORBIC ACID 500 MG TABLET GT SCH (09:32)
[2022-08-24] MEDS: ZINC SULFATE 220 MG CAPSULE GT SCH (09:34)
[2022-08-24] MEDS: ENOXAPARIN SODIUM 40 MG/0.4 ML DISP.SYRIN SQ SCH (09:38)
[2022-08-24] MEDS: VITAMINS A AND D 56.7 GM TUBE TP SCH ×2 (09:38→21:19)
[2022-08-24 12:12] VITALS: BP 137/76
[2022-08-24 19:21] VITALS: BP 144/83
[2022-08-24] MEDS: TAMSULOSIN 0.4 MG CAP.SR.24H GT SCH (21:19)
[2022-08-24] MEDS: MELATONIN 3 MG TABLET GT SCH (21:20)
[2022-08-24] MEDS: SENNOSIDES 8.6 MG TABLET GT SCH (21:20)
[2022-08-24] MEDS: ATORVASTATIN 40 MG TABLET GT SCH (21:20)
[2022-08-24] MEDS: INSULIN GLARGINE, 100 UNIT/ML CARTRIDGE SQ SCH (21:21)
[2022-08-25 00:46] VITALS: BP 149/79
[2022-08-25] MEDS: ALBUTEROL FS 2.5 MG/3 ML VIAL.NEB NEB SCH ×4 (01:48→19:47)
[2022-08-25] MEDS: BLOOD SUGAR DIAGNOSTIC 1 EACH STRIP IN SCH ×3 (05:29→18:44)
[2022-08-25] MEDS: PANTOPRAZOLE 40 MG/PACK PACK GT SCH (05:29)
[2022-08-25] MEDS: INSULIN REGULAR, HUMAN 100 UNIT/ML 3 ML VIAL SQ PRN ×3 (05:31→18:46)
[2022-08-25 08:00] VITALS: BP 104/52
[2022-08-25] MEDS: DOCUSATE SODIUM LIQ 100 MG/10 ML UDC GT SCH ×3 (08:44→17:08)
[2022-08-25] MEDS: ASPIRIN 81 MG TAB.CHEW GT SCH (08:44)
[2022-08-25] MEDS: ACIDOPHILUS/BULGARICUS 1 EACH TAB.CHEW GT SCH ×2 (08:45→17:08)
[2022-08-25] MEDS: ZINC SULFATE 220 MG CAPSULE GT SCH (08:46)
[2022-08-25] MEDS: PROSOURCE / PROSTAT (PYXIS) 30 ML UDC GT SCH ×2 (08:46→17:08)
[2022-08-25] MEDS: ASCORBIC ACID 500 MG TABLET GT SCH (08:46)
[2022-08-25] MEDS: ENOXAPARIN SODIUM 40 MG/0.4 ML DISP.SYRIN SQ SCH (08:49)
[2022-08-25] MEDS: POLYETHYLENE GLYCOL 3350 17 GM POWD.PACK GT SCH (08:49)
[2022-08-25] MEDS: VITAMINS A AND D 56.7 GM TUBE TP SCH ×2 (08:49→21:31)
[2022-08-25] MEDS: FERROUS SULFATE (325 MG) 325 MG/TAB TABLET GT SCH (08:50)
[2022-08-25] MEDS: HYDROGEN PEROXIDE 480 ML BOTTLE MC SCH ×2 (09:02→19:47)
[2022-08-25 12:28] VITALS: BP 114/57
[2022-08-25] MEDS: MELATONIN 3 MG TABLET GT SCH (21:31)
[2022-08-25] MEDS: TAMSULOSIN 0.4 MG CAP.SR.24H GT SCH (21:31)
[2022-08-25] MEDS: ATORVASTATIN 40 MG TABLET GT SCH (21:31)
[2022-08-25] MEDS: SENNOSIDES 8.6 MG TABLET GT SCH (21:31)
[2022-08-25] MEDS: INSULIN GLARGINE, 100 UNIT/ML CARTRIDGE SQ SCH (21:32)
[2022-08-26] MEDS: BLOOD SUGAR DIAGNOSTIC 1 EACH STRIP IN SCH ×4 (00:48→17:52)
[2022-08-26] MEDS: INSULIN REGULAR, HUMAN 100 UNIT/ML 3 ML VIAL SQ PRN ×4 (00:48→17:52)
[2022-08-26] MEDS: ALBUTEROL FS 2.5 MG/3 ML VIAL.NEB NEB SCH ×4 (01:40→18:58)
[2022-08-26] MEDS: VITAL AF 1.2 1,000 ML BOTTLE GT PRN ×2 (02:09→17:55)
[2022-08-26] MEDS: PANTOPRAZOLE 40 MG/PACK PACK GT SCH (05:09)
[2022-08-26 07:33] VITALS: BP 111/66
[2022-08-26] MEDS: ASPIRIN 81 MG TAB.CHEW GT SCH (08:47)
[2022-08-26] MEDS: PROSOURCE / PROSTAT (PYXIS) 30 ML UDC GT SCH ×2 (08:49→17:51)
[2022-08-26] MEDS: ASCORBIC ACID 500 MG TABLET GT SCH (08:49)
[2022-08-26] MEDS: FERROUS SULFATE (325 MG) 325 MG/TAB TABLET GT SCH (08:49)
[2022-08-26] MEDS: POLYETHYLENE GLYCOL 3350 17 GM POWD.PACK GT SCH (08:49)
[2022-08-26] MEDS: ACIDOPHILUS/BULGARICUS 1 EACH TAB.CHEW GT SCH ×2 (08:49→17:50)
[2022-08-26] MEDS: ZINC SULFATE 220 MG CAPSULE GT SCH (08:50)
[2022-08-26] MEDS: DOCUSATE SODIUM LIQ 100 MG/10 ML UDC GT SCH ×3 (08:51→17:50)
[2022-08-26] MEDS: ENOXAPARIN SODIUM 40 MG/0.4 ML DISP.SYRIN SQ SCH (08:51)
[2022-08-26] MEDS: VITAMINS A AND D 56.7 GM TUBE TP SCH ×2 (08:51→21:18)
[2022-08-26] MEDS: HYDROGEN PEROXIDE 480 ML BOTTLE MC SCH ×2 (09:45→20:50)
[2022-08-26 12:12] VITALS: BP 124/64
[2022-08-26 18:00] VITALS: BP 122/67
[2022-08-26 20:00] VITALS: BP 124/68
[2022-08-26] MEDS: ATORVASTATIN 40 MG TABLET GT SCH (21:18)
[2022-08-26] MEDS: MELATONIN 3 MG TABLET GT SCH (21:18)
[2022-08-26] MEDS: SENNOSIDES 8.6 MG TABLET GT SCH (21:18)
[2022-08-26] MEDS: TAMSULOSIN 0.4 MG CAP.SR.24H GT SCH (21:18)
[2022-08-26] MEDS: INSULIN GLARGINE, 100 UNIT/ML CARTRIDGE SQ SCH (21:19)
[2022-08-27] MEDS: BLOOD SUGAR DIAGNOSTIC 1 EACH STRIP IN SCH ×4 (00:08→17:31)
[2022-08-27] MEDS: INSULIN REGULAR, HUMAN 100 UNIT/ML 3 ML VIAL SQ PRN ×4 (00:10→17:33)
[2022-08-27] MEDS: ALBUTEROL FS 2.5 MG/3 ML VIAL.NEB NEB SCH ×4 (00:34→19:30)
[2022-08-27] MEDS: PANTOPRAZOLE 40 MG/PACK PACK GT SCH (05:09)
[2022-08-27 07:18] LABS: BASOPHILS # (AUTO) 0.1 K/uL (0.0-0.2); EOSINOPHILS % (AUTO) 7.6 % (0.0-6.0); HEMATOCRIT 30 % (39-51); HEMOGLOBIN 10.1 g/dL (13.5-17.5); LYMPHOCYTES # (AUTO) 1.8 K/uL (0.8-4.8); LYMPHOCYTES % (AUTO) 18.8 % (20.0-44.0); MEAN CORPUSCULAR HGB CONC 34 g/dl (31.0-36.0); MEAN CORPUSCULAR VOLUME 85 fL (80-96); MONOCYTES # (AUTO) 0.9 K/uL (0.1-1.30); MONOCYTES % (AUTO) 9.6 % (2.0-12.0); NEUTROPHILS # (AUTO) 6.1 K/uL (1.8-8.9); PLATELET COUNT (AUTO) 392 K/uL (150-450); RED BLOOD CELL COUNT(AUTO) 3.54 MIL/uL (4.5-6.0); WHITE BLOOD COUNT (AUTO) 9.6 K/uL (4.3-11.0)
[2022-08-27 07:55] LABS: CALCIUM, SERUM 8.8 mg/dL (8.5-10.1); CREATININE 0.7 mg/dL (0.6-1.3); POTASSIUM 3.8 mmol/L (3.5-5.1)
[2022-08-27 07:57] VITALS: BP 132/50
--- NOTE | 2022-08-27 08:47 | NUR ---
Received a call from laboratory regarding glucose lab value 48, blood sugar was checked results are 93, no signs of hypoglycemia noted, will continue to monitor patients blood glucose levels.
[2022-08-27] MEDS: ASPIRIN 81 MG TAB.CHEW GT SCH (09:03)
[2022-08-27] MEDS: PROSOURCE / PROSTAT (PYXIS) 30 ML UDC GT SCH ×2 (09:03→17:31)
[2022-08-27] MEDS: ACIDOPHILUS/BULGARICUS 1 EACH TAB.CHEW GT SCH ×2 (09:03→17:31)
[2022-08-27] MEDS: POLYETHYLENE GLYCOL 3350 17 GM POWD.PACK GT SCH (09:03)
[2022-08-27] MEDS: DOCUSATE SODIUM LIQ 100 MG/10 ML UDC GT SCH ×3 (09:03→17:31)
[2022-08-27] MEDS: FERROUS SULFATE (325 MG) 325 MG/TAB TABLET GT SCH (09:03)
[2022-08-27] MEDS: ENOXAPARIN SODIUM 40 MG/0.4 ML DISP.SYRIN SQ SCH (09:04)
[2022-08-27] MEDS: VITAMINS A AND D 56.7 GM TUBE TP SCH ×2 (09:04→21:40)
[2022-08-27] MEDS: ZINC SULFATE 220 MG CAPSULE GT SCH (09:04)
[2022-08-27] MEDS: ASCORBIC ACID 500 MG TABLET GT SCH (09:04)
[2022-08-27] MEDS: HYDROGEN PEROXIDE 480 ML BOTTLE MC SCH ×2 (09:32→20:48)
--- NOTE | 2022-08-27 10:00 | NUR ---
Notified AUTO DISMANTLER Reshma Christine regarding blood sugar 48 from lab draw this morning at 0630. Result was called to charge nurse at 0800. Blood sugar was rechecked by RN and result came back 93. No signs of hypoglycemia noted. GT feeding was resumed at 0700.
--- NOTE | 2022-08-27 12:10 | NUR ---
Seen by SHAHRAM Christine. Relayed CBC BMP results to her. She was notified earlier that blood sugar was 48 with lab draw at 0630 this morning and BS increased to 93 at 0800 when feeding was resumed. SHAHRAM Christine said to check blood sugars at 0630am since it might be pt's real fasting blood sugar. She said if blood sugars at that time continues to be less than 80, Lantus insulin will be evaluated.
--- NOTE | 2022-08-27 13:18 | NUR ---
Received order from SHAHRAM Christine to DC Valero catheter.
[2022-08-27] MEDS: VITAL AF 1.2 1,000 ML BOTTLE GT PRN (14:31)
[2022-08-27 20:00] VITALS: BP 130/62
[2022-08-27] MEDS: TAMSULOSIN 0.4 MG CAP.SR.24H GT SCH (21:40)
[2022-08-27] MEDS: ATORVASTATIN 40 MG TABLET GT SCH (21:40)
[2022-08-27] MEDS: MELATONIN 3 MG TABLET GT SCH (21:40)
[2022-08-27] MEDS: SENNOSIDES 8.6 MG TABLET GT SCH (21:40)
[2022-08-27] MEDS: INSULIN GLARGINE, 100 UNIT/ML CARTRIDGE SQ SCH (22:42)
[2022-08-28] MEDS: BLOOD SUGAR DIAGNOSTIC 1 EACH STRIP IN SCH ×5 (00:07→23:47)
[2022-08-28] MEDS: INSULIN REGULAR, HUMAN 100 UNIT/ML 3 ML VIAL SQ PRN ×5 (00:09→23:49)
[2022-08-28] MEDS: ALBUTEROL FS 2.5 MG/3 ML VIAL.NEB NEB SCH ×4 (02:14→19:56)
[2022-08-28] MEDS: VITAL AF 1.2 1,000 ML BOTTLE GT PRN ×2 (05:37→18:14)
[2022-08-28] MEDS: PANTOPRAZOLE 40 MG/PACK PACK GT SCH (05:37)
[2022-08-28 05:42] VITALS: BP 123/63
--- NOTE | 2022-08-28 06:16 | NUR ---
PATIENT RECEIVED ON 28% AEROSOL T-TUBE, TOLERATING WITH NO DISTRESS/SOB NOTED. SUCTIONED FOR MODERATE, THICK, YELLOW SECRETIONS. GIVEN IN-LINE TREATMENTS WITH NO ADVERSE REACTIONS. AMBU BAG AT BEDSIDE. PULSE OXIMETER ALARM AUDIBLE AND VISIBLE. TRACH CARE DONE. Addendum: 08/28/22 at 0617 by GIANNA ARRINGTON RT Amended: Links added.
[2022-08-28] MEDS: HYDROGEN PEROXIDE 480 ML BOTTLE MC SCH ×2 (07:58→21:45)
[2022-08-28 08:34] VITALS: BP 131/61
[2022-08-28] MEDS: ASPIRIN 81 MG TAB.CHEW GT SCH (09:36)
[2022-08-28] MEDS: FERROUS SULFATE (325 MG) 325 MG/TAB TABLET GT SCH (09:36)
[2022-08-28] MEDS: DOCUSATE SODIUM LIQ 100 MG/10 ML UDC GT SCH ×3 (09:36→17:08)
[2022-08-28] MEDS: ACIDOPHILUS/BULGARICUS 1 EACH TAB.CHEW GT SCH ×2 (09:36→17:08)
[2022-08-28] MEDS: POLYETHYLENE GLYCOL 3350 17 GM POWD.PACK GT SCH (09:36)
[2022-08-28] MEDS: ASCORBIC ACID 500 MG TABLET GT SCH (09:36)
[2022-08-28] MEDS: PROSOURCE / PROSTAT (PYXIS) 30 ML UDC GT SCH ×2 (09:36→17:08)
[2022-08-28] MEDS: ZINC SULFATE 220 MG CAPSULE GT SCH (09:37)
[2022-08-28] MEDS: VITAMINS A AND D 56.7 GM TUBE TP SCH ×2 (09:37→21:38)
[2022-08-28] MEDS: ENOXAPARIN SODIUM 40 MG/0.4 ML DISP.SYRIN SQ SCH (09:37)
--- NOTE | 2022-08-28 18:59 | NUR ---
Seen and examined by Dr. Mack, reported that yesterday's blood sugar obtained by the lab was 48, but it was repeated using blood glucose machine 93 mg/dl. Mostly blood sugar are in the 200's with a couple of reading below 100. No new order given. No s/s of hypo/hyperglycemia.
--- NOTE | 2022-08-28 19:56 | NUR ---
Patient received on 5LPM 28% cool aerosol. Airway patent and secured, suction prn. Q6 breathing treatment given and tolerated well without adverse effect. Spare trach and ambu bag at bedside. No respiratory distress noted at this time, will continue to monitor t/o shift.
[2022-08-28 20:00] VITALS: BP 147/84
[2022-08-28] MEDS: SENNOSIDES 8.6 MG TABLET GT SCH (21:38)
[2022-08-28] MEDS: MELATONIN 3 MG TABLET GT SCH (21:38)
[2022-08-28] MEDS: TAMSULOSIN 0.4 MG CAP.SR.24H GT SCH (21:38)
[2022-08-28] MEDS: ATORVASTATIN 40 MG TABLET GT SCH (21:38)
[2022-08-28] MEDS: INSULIN GLARGINE, 100 UNIT/ML CARTRIDGE SQ SCH (21:39)
[2022-08-29] VITALS: BP 103/61
[2022-08-29] MEDS: ALBUTEROL FS 2.5 MG/3 ML VIAL.NEB NEB SCH ×4 (01:25→19:56)
[2022-08-29] MEDS: BLOOD SUGAR DIAGNOSTIC 1 EACH STRIP IN SCH ×4 (05:48→23:23)
[2022-08-29] MEDS: PANTOPRAZOLE 40 MG/PACK PACK GT SCH (05:48)
[2022-08-29] MEDS: INSULIN REGULAR, HUMAN 100 UNIT/ML 3 ML VIAL SQ PRN ×4 (05:49→23:23)
[2022-08-29 08:00] VITALS: BP 112/71
[2022-08-29] MEDS: DOCUSATE SODIUM LIQ 100 MG/10 ML UDC GT SCH ×3 (08:36→17:20)
[2022-08-29] MEDS: ASPIRIN 81 MG TAB.CHEW GT SCH (08:36)
[2022-08-29] MEDS: ACIDOPHILUS/BULGARICUS 1 EACH TAB.CHEW GT SCH ×2 (08:36→17:20)
[2022-08-29] MEDS: FERROUS SULFATE (325 MG) 325 MG/TAB TABLET GT SCH (08:36)
[2022-08-29] MEDS: ASCORBIC ACID 500 MG TABLET GT SCH (08:38)
[2022-08-29] MEDS: POLYETHYLENE GLYCOL 3350 17 GM POWD.PACK GT SCH (08:38)
[2022-08-29] MEDS: ZINC SULFATE 220 MG CAPSULE GT SCH (08:38)
[2022-08-29] MEDS: PROSOURCE / PROSTAT (PYXIS) 30 ML UDC GT SCH ×2 (08:38→17:20)
[2022-08-29] MEDS: VITAMINS A AND D 56.7 GM TUBE TP SCH ×2 (08:39→20:12)
[2022-08-29] MEDS: ENOXAPARIN SODIUM 40 MG/0.4 ML DISP.SYRIN SQ SCH (08:39)
[2022-08-29] MEDS: HYDROGEN PEROXIDE 480 ML BOTTLE MC SCH ×2 (09:18→19:56)
--- NOTE | 2022-08-29 10:40 | NUR ---
Optometry apt.: PIERRE schedule pt. for optometry exam with Dr. Desai' s office [phone] on 09/20/2022 8:30 am. PIERRE notified the pt.'s, , Rosaline via email. PIERRE notified Letha ROGERS.
[2022-08-29 12:00] VITALS: BP 113/64
--- NOTE | 2022-08-29 15:14 | NUR ---
TRACH TUBE CHANGE Routine monthly trach tube change done. Trach tube was exchanged with new Shiley #8 Cuffed ([id number]), cuff is deflated. Trach tube position verified by equal chest rise and normal bilateral breath sounds. Minimal bleeding was noted during procedure. RT Marjorie assisted and verified trach tube size. CHIKI Monae made aware of procedure and verified that the new Shiley trach type is being used.
--- NOTE | 2022-08-29 15:30 | NUR ---
Pt due for trach change today. Central supply gave the new model of the Shiley trach tube, no Shiley 8 available and according to them they are not even able to order it anymore. Informed CARDIAC MONITOR TECHNICIAN Reshma Christine that there is a new Shiley 7.5 and 8.5. Asked her if trach can be changed to Shiley 8.5. She said it is fine and it can also be downsized to 7.5 if there are no secretion issues. RT Slava spoke with RT manager of training Alice. They discussed that the new Shiley 8.5 is the same as the old Shiley 8, outer diameter is 8 mm while inner cannula is 8.5 mm. The available new Shiley 8.5 is cuffed. Pt has an old Shiley 8 cuffless. RT manager of training Alice instructed RT Slava to keep the cuff deflated. Pt's trach was changed with moderate amount of bleeding. Notified SHAHRAM Christine.
--- NOTE | 2022-08-29 16:00 | NUR ---
Pt's tracheal bleeding from trach change has subsided. Suctioned pt and noticed a scant amount of blood-tinged secretions. Secretions are now mostly pale yellowish.
[2022-08-29] MEDS: VITAL AF 1.2 1,000 ML BOTTLE GT PRN (17:21)
--- NOTE | 2022-08-29 18:19 | NUR ---
Pt's Valero catheter was removed yesterday. Pt has been voiding well throughout this shift.
--- NOTE | 2022-08-29 18:45 | NUR ---
Late entry for 08/22/22 Pt's visited and said that she is now giving consent to administer the flu vaccine. Have discussed risks, benefits, and possible side effects with her. Flu vaccine fact sheet has also been provided to her.
[2022-08-29 18:54] VITALS: BP 150/81
[2022-08-29 20:00] VITALS: BP 148/88
[2022-08-29 20:46] VITALS: BP 148/88
[2022-08-29] MEDS: SENNOSIDES 8.6 MG TABLET GT SCH (21:03)
[2022-08-29] MEDS: ATORVASTATIN 40 MG TABLET GT SCH (21:03)
[2022-08-29] MEDS: TAMSULOSIN 0.4 MG CAP.SR.24H GT SCH (21:03)
[2022-08-29] MEDS: MELATONIN 3 MG TABLET GT SCH (21:03)
[2022-08-29] MEDS: INSULIN GLARGINE, 100 UNIT/ML CARTRIDGE SQ SCH (21:08)
[2022-08-30] VITALS: BP 150/96
[2022-08-30] MEDS: ALBUTEROL FS 2.5 MG/3 ML VIAL.NEB NEB SCH ×4 (01:45→18:44)
[2022-08-30] MEDS: PANTOPRAZOLE 40 MG/PACK PACK GT SCH (05:32)
[2022-08-30] MEDS: BLOOD SUGAR DIAGNOSTIC 1 EACH STRIP IN SCH ×4 (05:32→23:39)
[2022-08-30] MEDS: INSULIN REGULAR, HUMAN 100 UNIT/ML 3 ML VIAL SQ PRN ×4 (05:33→23:40)
[2022-08-30 07:38] VITALS: BP 128/72
[2022-08-30] MEDS: HYDROGEN PEROXIDE 480 ML BOTTLE MC SCH ×2 (09:08→20:53)
--- NOTE | 2022-08-30 09:42 | NUR ---
RT Patient received on CA @ 28% (5LPM). Pt is tolerating current respiratory orders w/ no SOB or respiratory distress noted. Tx tolerated well, no adverse reactions noted. Trach is midline, airway is patent/secured. Ambu/Trach available at bedside. Pt currently stable.
[2022-08-30] MEDS: DOCUSATE SODIUM LIQ 100 MG/10 ML UDC GT SCH ×3 (09:53→17:30)
[2022-08-30] MEDS: POLYETHYLENE GLYCOL 3350 17 GM POWD.PACK GT SCH (09:53)
[2022-08-30] MEDS: FERROUS SULFATE (325 MG) 325 MG/TAB TABLET GT SCH (09:53)
[2022-08-30] MEDS: ACIDOPHILUS/BULGARICUS 1 EACH TAB.CHEW GT SCH ×2 (09:53→17:30)
[2022-08-30] MEDS: PROSOURCE / PROSTAT (PYXIS) 30 ML UDC GT SCH ×2 (09:54→17:30)
[2022-08-30] MEDS: ZINC SULFATE 220 MG CAPSULE GT SCH (09:54)
[2022-08-30] MEDS: ASCORBIC ACID 500 MG TABLET GT SCH (09:54)
[2022-08-30] MEDS: ASPIRIN 81 MG TAB.CHEW GT SCH (09:55)
[2022-08-30] MEDS: VITAMINS A AND D 56.7 GM TUBE TP SCH ×2 (09:55→20:25)
[2022-08-30] MEDS: ENOXAPARIN SODIUM 40 MG/0.4 ML DISP.SYRIN SQ SCH (09:55)
[2022-08-30] MEDS: VITAL AF 1.2 1,000 ML BOTTLE GT PRN (17:31)
[2022-08-30 18:00] VITALS: BP 144/86
[2022-08-30] MEDS: MAGNESIUM HYDROXIDE 30 ML UDC PO PRN (20:25)
[2022-08-30 21:04] VITALS: BP 148/86
[2022-08-30] MEDS: ATORVASTATIN 40 MG TABLET GT SCH (21:26)
[2022-08-30] MEDS: MELATONIN 3 MG TABLET GT SCH (21:26)
[2022-08-30] MEDS: SENNOSIDES 8.6 MG TABLET GT SCH (21:26)
[2022-08-30] MEDS: TAMSULOSIN 0.4 MG CAP.SR.24H GT SCH (21:26)
[2022-08-30] MEDS: INSULIN GLARGINE, 100 UNIT/ML CARTRIDGE SQ SCH (21:27)
[2022-08-30 23:32] VITALS: BP 118/55
[2022-08-31] MEDS: ALBUTEROL FS 2.5 MG/3 ML VIAL.NEB NEB SCH ×4 (00:46→18:49)
[2022-08-31] MEDS: BLOOD SUGAR DIAGNOSTIC 1 EACH STRIP IN SCH ×3 (05:36→17:32)
[2022-08-31] MEDS: PANTOPRAZOLE 40 MG/PACK PACK GT SCH (05:36)
[2022-08-31] MEDS: INSULIN REGULAR, HUMAN 100 UNIT/ML 3 ML VIAL SQ PRN ×3 (05:36→17:36)
--- NOTE | 2022-08-31 05:39 | NUR ---
PTS T-BAR KEPT POPPING OFF DURING SHIFT SPORADICALLY OR WHEN THE PT COUGHS. WAITER AND CASHIER AWARE. DENTAL TECHNOLOGIST AWARE. WILL ENDORSE TO DAY SHIFT RT. NO S/S OF RESPIRATORY DISTRESS NOTED. NO SOB NOTED.
[2022-08-31 05:45] VITALS: BP 127/58
[2022-08-31] MEDS: HYDROGEN PEROXIDE 480 ML BOTTLE MC SCH ×2 (07:22→20:20)
[2022-08-31 08:14] VITALS: BP 163/78
[2022-08-31] MEDS: ASPIRIN 81 MG TAB.CHEW GT SCH (08:54)
[2022-08-31] MEDS: FERROUS SULFATE (325 MG) 325 MG/TAB TABLET GT SCH (08:54)
[2022-08-31] MEDS: DOCUSATE SODIUM LIQ 100 MG/10 ML UDC GT SCH ×3 (08:54→16:22)
[2022-08-31] MEDS: PROSOURCE / PROSTAT (PYXIS) 30 ML UDC GT SCH ×2 (08:55→16:22)
[2022-08-31] MEDS: VITAMINS A AND D 56.7 GM TUBE TP SCH ×2 (08:55→21:22)
[2022-08-31] MEDS: ENOXAPARIN SODIUM 40 MG/0.4 ML DISP.SYRIN SQ SCH (08:55)
[2022-08-31] MEDS: ACIDOPHILUS/BULGARICUS 1 EACH TAB.CHEW GT SCH ×2 (08:55→16:22)
[2022-08-31] MEDS: POLYETHYLENE GLYCOL 3350 17 GM POWD.PACK GT SCH (08:55)
[2022-08-31] MEDS: ZINC SULFATE 220 MG CAPSULE GT SCH (08:55)
[2022-08-31] MEDS: ASCORBIC ACID 500 MG TABLET GT SCH (08:55)
[2022-08-31] MEDS: VITAL AF 1.2 1,000 ML BOTTLE GT PRN (09:22)
[2022-08-31] MEDS: MELATONIN 3 MG TABLET GT SCH (21:22)
[2022-08-31] MEDS: SENNOSIDES 8.6 MG TABLET GT SCH (21:22)
[2022-08-31] MEDS: ATORVASTATIN 40 MG TABLET GT SCH (21:22)
[2022-08-31] MEDS: TAMSULOSIN 0.4 MG CAP.SR.24H GT SCH (21:22)
[2022-08-31 21:25] VITALS: BP 121/56
[2022-08-31] MEDS: INSULIN GLARGINE, 100 UNIT/ML CARTRIDGE SQ SCH (21:25)
[2022-09-01] MEDS: BLOOD SUGAR DIAGNOSTIC 1 EACH STRIP IN SCH ×5 (00:04→23:58)
[2022-09-01] MEDS: INSULIN REGULAR, HUMAN 100 UNIT/ML 3 ML VIAL SQ PRN ×5 (00:07→23:59)
[2022-09-01] MEDS: ALBUTEROL FS 2.5 MG/3 ML VIAL.NEB NEB SCH ×4 (00:48→18:53)
[2022-09-01] MEDS: PANTOPRAZOLE 40 MG/PACK PACK GT SCH (05:35)
[2022-09-01 07:59] VITALS: BP 149/81
[2022-09-01] MEDS: VITAMINS A AND D 56.7 GM TUBE TP SCH ×2 (09:02→21:17)
[2022-09-01] MEDS: POLYETHYLENE GLYCOL 3350 17 GM POWD.PACK GT SCH (09:02)
[2022-09-01] MEDS: ASPIRIN 81 MG TAB.CHEW GT SCH (09:02)
[2022-09-01] MEDS: FERROUS SULFATE (325 MG) 325 MG/TAB TABLET GT SCH (09:02)
[2022-09-01] MEDS: PROSOURCE / PROSTAT (PYXIS) 30 ML UDC GT SCH ×2 (09:02→17:26)
[2022-09-01] MEDS: ACIDOPHILUS/BULGARICUS 1 EACH TAB.CHEW GT SCH ×2 (09:02→17:26)
[2022-09-01] MEDS: DOCUSATE SODIUM LIQ 100 MG/10 ML UDC GT SCH ×3 (09:02→17:26)
[2022-09-01] MEDS: ZINC SULFATE 220 MG CAPSULE GT SCH (09:02)
[2022-09-01] MEDS: ASCORBIC ACID 500 MG TABLET GT SCH (09:02)
[2022-09-01] MEDS: ENOXAPARIN SODIUM 40 MG/0.4 ML DISP.SYRIN SQ SCH (09:03)
[2022-09-01] MEDS: HYDROGEN PEROXIDE 480 ML BOTTLE MC SCH ×2 (09:06→20:12)
[2022-09-01 12:00] VITALS: BP 124/59
--- NOTE | 2022-09-01 12:40 | NUR ---
RT NOTE Patient received on CA @ 28% (5LPM). Pt is tolerating current respiratory orders w/ no SOB or respiratory distress noted. Tx tolerated well, no adverse reactions noted. Trach is midline, airway is patent/secured. Ambu/Trach available at bedside. Pt currently stable will continue to monitor for any changes.
[2022-09-01] MEDS: VITAL AF 1.2 1,000 ML BOTTLE GT PRN (18:20)
[2022-09-01] MEDS: MELATONIN 3 MG TABLET GT SCH (21:17)
[2022-09-01] MEDS: SENNOSIDES 8.6 MG TABLET GT SCH (21:17)
[2022-09-01] MEDS: ATORVASTATIN 40 MG TABLET GT SCH (21:17)
[2022-09-01] MEDS: TAMSULOSIN 0.4 MG CAP.SR.24H GT SCH (21:17)
[2022-09-01] MEDS: INSULIN GLARGINE, 100 UNIT/ML CARTRIDGE SQ SCH (21:18)
[2022-09-01 22:00] VITALS: BP 127/84
[2022-09-02] MEDS: ALBUTEROL FS 2.5 MG/3 ML VIAL.NEB NEB SCH ×4 (00:34→19:46)
[2022-09-02] MEDS: INSULIN REGULAR, HUMAN 100 UNIT/ML 3 ML VIAL SQ PRN ×3 (05:19→17:26)
[2022-09-02] MEDS: BLOOD SUGAR DIAGNOSTIC 1 EACH STRIP IN SCH ×3 (05:19→17:25)
[2022-09-02] MEDS: PANTOPRAZOLE 40 MG/PACK PACK GT SCH (05:19)
[2022-09-02] MEDS: HYDROGEN PEROXIDE 480 ML BOTTLE MC SCH ×2 (07:17→23:44)
[2022-09-02 08:07] VITALS: BP 136/75
[2022-09-02] MEDS: ASPIRIN 81 MG TAB.CHEW GT SCH (09:08)
[2022-09-02] MEDS: DOCUSATE SODIUM LIQ 100 MG/10 ML UDC GT SCH ×3 (09:08→16:36)
[2022-09-02] MEDS: ACIDOPHILUS/BULGARICUS 1 EACH TAB.CHEW GT SCH ×2 (09:08→16:36)
[2022-09-02] MEDS: POLYETHYLENE GLYCOL 3350 17 GM POWD.PACK GT SCH (09:08)
[2022-09-02] MEDS: FERROUS SULFATE (325 MG) 325 MG/TAB TABLET GT SCH (09:08)
[2022-09-02] MEDS: PROSOURCE / PROSTAT (PYXIS) 30 ML UDC GT SCH ×2 (09:09→16:36)
[2022-09-02] MEDS: ASCORBIC ACID 500 MG TABLET GT SCH (09:09)
[2022-09-02] MEDS: ZINC SULFATE 220 MG CAPSULE GT SCH (09:09)
[2022-09-02] MEDS: VITAMINS A AND D 56.7 GM TUBE TP SCH ×2 (09:09→20:04)
[2022-09-02] MEDS: ENOXAPARIN SODIUM 40 MG/0.4 ML DISP.SYRIN SQ SCH (09:09)
[2022-09-02] MEDS: VITAL AF 1.2 1,000 ML BOTTLE GT PRN (12:19)
[2022-09-02 12:30] VITALS: BP 128/58
--- NOTE | 2022-09-02 16:46 | NUR ---
Family Invite to IDT: PIERRE emailed the pt.'s , Rosaline inviting them to participate in 09/06/2022 IDT Meeting. PIERRE will follow up accordingly.
--- NOTE | 2022-09-02 17:12 | NUR ---
RT Pt found decannulated. No signs of respiratory distress. Charge Nurse is notified. Dr. Colón came at bedside evaluating the pt and said leave the pt decannulated as long as the pt is stable and in no distress. In a case of emergency, take the pt to the ER to be intubated. At this moment, he is stable, Saturation 100% on room air. No distress noticed. Pt will continue to be monitored for any changes.
--- NOTE | 2022-09-02 17:32 | NUR ---
RT Madan notified charge nurse that pt's trach tube is out, unable to replace trach tube. RT Lou found the trach tube out at 1650. Charge nurse came to bedside, saw that pt appears comfortable, no respiratory distress noted, O2 sat 99-100% on room air. RT Selvin also came to bedside to help replace the trach. Charge nurse suggested to try a smaller trach tube. Pt had a Shiley 8. RT Selvin attempted to place a Shiley 6 but was also unsuccessful. RT Lou notified Dr Colón. Dr Colón examined pt at bedside. He said that since pt is stable and has no respiratory distress or desaturation, keep pt without a trach tube and monitor closely. Dr Colón said that if pt has any respiratory distress, send pt to ER for intubation. Called pt's Rosaline and informed her of the situation. Rosaline visited pt around 1615 today and said she did not notice if trach tube was out or not.
--- NOTE | 2022-09-02 17:39 | NUR ---
Dr Colón went to see pt in his room again. Dr Colón said pt is doing well so far. O2 sat 99% on room air, HR 63, no respiratory distress. Pt appears comfortable.
--- NOTE | 2022-09-02 18:48 | NUR ---
Seen by CREDIT SUPPORT SPECIALIST Reshma Christine. Dr Colón has already informed her that pt's trach tube was out and it was not replaced. O2 sat 99% HR 74. No respiratory distress noted.
[2022-09-02 20:00] VITALS: BP 140/75
--- NOTE | 2022-09-02 20:00 | NUR ---
RN NOTES Received pt in bed awake, no respiratory distress, in stable condition. Sp02 99% on room air. Will continue to monitor.
[2022-09-02] MEDS: SENNOSIDES 8.6 MG TABLET GT SCH (21:13)
[2022-09-02] MEDS: INSULIN GLARGINE, 100 UNIT/ML CARTRIDGE SQ SCH (21:13)
[2022-09-02] MEDS: TAMSULOSIN 0.4 MG CAP.SR.24H GT SCH (21:13)
[2022-09-02] MEDS: MELATONIN 3 MG TABLET GT SCH (21:13)
[2022-09-02] MEDS: ATORVASTATIN 40 MG TABLET GT SCH (21:13)
[2022-09-03] MEDS: BLOOD SUGAR DIAGNOSTIC 1 EACH STRIP IN SCH ×5 (00:25→23:29)
[2022-09-03] MEDS: INSULIN REGULAR, HUMAN 100 UNIT/ML 3 ML VIAL SQ PRN ×5 (00:29→23:30)
[2022-09-03] MEDS: ALBUTEROL FS 2.5 MG/3 ML VIAL.NEB NEB SCH ×4 (01:37→19:40)
[2022-09-03] MEDS: PANTOPRAZOLE 40 MG/PACK PACK GT SCH (05:10)
[2022-09-03] MEDS: VITAL AF 1.2 1,000 ML BOTTLE GT PRN ×2 (05:10→23:19)
--- NOTE | 2022-09-03 06:30 | NUR ---
RN NOTES No respiratory distress or desaturation noted. Pt in stable condition.
[2022-09-03 07:31] VITALS: BP 138/68
[2022-09-03] MEDS: HYDROGEN PEROXIDE 480 ML BOTTLE MC SCH ×2 (08:22→19:40)
[2022-09-03] MEDS: DOCUSATE SODIUM LIQ 100 MG/10 ML UDC GT SCH ×3 (08:25→16:55)
[2022-09-03] MEDS: ASPIRIN 81 MG TAB.CHEW GT SCH (08:25)
[2022-09-03] MEDS: PROSOURCE / PROSTAT (PYXIS) 30 ML UDC GT SCH ×2 (08:25→16:55)
[2022-09-03] MEDS: ZINC SULFATE 220 MG CAPSULE GT SCH (08:25)
[2022-09-03] MEDS: FERROUS SULFATE (325 MG) 325 MG/TAB TABLET GT SCH (08:25)
[2022-09-03] MEDS: ACIDOPHILUS/BULGARICUS 1 EACH TAB.CHEW GT SCH ×2 (08:25→16:55)
[2022-09-03] MEDS: POLYETHYLENE GLYCOL 3350 17 GM POWD.PACK GT SCH (08:25)
[2022-09-03] MEDS: ASCORBIC ACID 500 MG TABLET GT SCH (08:25)
[2022-09-03] MEDS: VITAMINS A AND D 56.7 GM TUBE TP SCH ×2 (08:26→20:04)
[2022-09-03] MEDS: ENOXAPARIN SODIUM 40 MG/0.4 ML DISP.SYRIN SQ SCH (08:26)
[2022-09-03 09:29] LABS: ABG BASE EXCESS 0.2 mmol/L; ABG OXYGEN SATURATION 96.9 % (92.0-98.5); ABG PCO2 35.5 mmHg (35.0-45.0); ABG PH 7.447 (7.350-7.450); ABG PO2 93.1 mmHg (75.0-100.0); COHb 0.7 % (0.5-1.5); MetHb 0.3 % (0.0-1.5); O2Hb 95.9 % (94.0-97.0); SITE, ABG Right Radial
--- NOTE | 2022-09-03 09:30 | NUR ---
Seen by Dr Colón this morning. Pt's O2 sat 99% HR 90, no respiratory distress noted. Dr Colón ordered to do ABG. Relayed ABG result to him. No new order.
[2022-09-03 12:29] VITALS: BP 126/67
--- NOTE | 2022-09-03 13:05 | NUR ---
Seen by Dr Mack. Notified him that pt's trach tube came out yesterday and was unable to replace it. No desaturation noted, no respiratory distress noted. ABG result was relayed to Dr Colón, no new order. Dr Mack said to monitor pt and suction frequently. Pt being suctioned orally.
--- NOTE | 2022-09-03 18:06 | NUR ---
RECEIVED PATIENT ON ROOM AIR SATURATIONS AT 99%. PATIENT DECANNULATED. NO SOB NOTED. HHN TXS KAILEE WELL WITH NO ADVERSE REACTION NOTED. ABG DONE. STOMA CLEAN.
--- NOTE | 2022-09-03 18:35 | NUR ---
Pt was frequently suctioned orally throughout this shift. O2 sat 98-99%. HR earlier was 89-95. Pt appeared to feel cold and uncomfortable, warm blanket provided. HR improved to 68-74 and he appeared more comfortable. No respiratory distress nor desaturation noted throughout this shift. Monitored pt closely.
[2022-09-03 20:10] VITALS: BP 135/66
--- NOTE | 2022-09-03 21:00 | NUR ---
RN NOTES Pt in stable condition, no resp distress. Suctioned mouth frequently for airway clearance. SpO2 97%. Will cont to monitor.
[2022-09-03] MEDS: ATORVASTATIN 40 MG TABLET GT SCH (21:17)
[2022-09-03] MEDS: SENNOSIDES 8.6 MG TABLET GT SCH (21:17)
[2022-09-03] MEDS: TAMSULOSIN 0.4 MG CAP.SR.24H GT SCH (21:17)
[2022-09-03] MEDS: MELATONIN 3 MG TABLET GT SCH (21:17)
[2022-09-03] MEDS: INSULIN GLARGINE, 100 UNIT/ML CARTRIDGE SQ SCH (21:18)
[2022-09-04] MEDS: ALBUTEROL FS 2.5 MG/3 ML VIAL.NEB NEB SCH ×4 (00:48→20:25)
--- NOTE | 2022-09-04 04:24 | NUR ---
NT SUCTION DONE AT THIS TIME. SUCTION MODERATE AMOUNT OF THICK RED YELLOW SECRETIONS. PT SATURATING AT 97% ON ROOM AIR. RN AWARE. WILL CONT TO MONITOR
[2022-09-04] MEDS: BLOOD SUGAR DIAGNOSTIC 1 EACH STRIP IN SCH ×4 (05:06→23:36)
[2022-09-04] MEDS: INSULIN REGULAR, HUMAN 100 UNIT/ML 3 ML VIAL SQ PRN ×4 (05:06→23:38)
[2022-09-04] MEDS: PANTOPRAZOLE 40 MG/PACK PACK GT SCH (05:06)
[2022-09-04 07:15] VITALS: BP 117/61
[2022-09-04] MEDS: HYDROGEN PEROXIDE 480 ML BOTTLE MC SCH ×2 (09:31→20:25)
[2022-09-04] MEDS: DOCUSATE SODIUM LIQ 100 MG/10 ML UDC GT SCH ×3 (09:36→17:47)
[2022-09-04] MEDS: PROSOURCE / PROSTAT (PYXIS) 30 ML UDC GT SCH ×2 (09:36→17:47)
[2022-09-04] MEDS: ASPIRIN 81 MG TAB.CHEW GT SCH (09:36)
[2022-09-04] MEDS: ASCORBIC ACID 500 MG TABLET GT SCH (09:36)
[2022-09-04] MEDS: FERROUS SULFATE (325 MG) 325 MG/TAB TABLET GT SCH (09:36)
[2022-09-04] MEDS: ACIDOPHILUS/BULGARICUS 1 EACH TAB.CHEW GT SCH ×2 (09:36→17:47)
[2022-09-04] MEDS: POLYETHYLENE GLYCOL 3350 17 GM POWD.PACK GT SCH (09:36)
[2022-09-04] MEDS: ZINC SULFATE 220 MG CAPSULE GT SCH (09:37)
[2022-09-04] MEDS: ENOXAPARIN SODIUM 40 MG/0.4 ML DISP.SYRIN SQ SCH (09:38)
[2022-09-04] MEDS: VITAMINS A AND D 56.7 GM TUBE TP SCH ×2 (09:39→21:19)
[2022-09-04 12:09] VITALS: BP 131/89
[2022-09-04] MEDS: VITAL AF 1.2 1,000 ML BOTTLE GT PRN (17:48)
[2022-09-04 19:44] VITALS: BP 110/66
[2022-09-04] MEDS: ATORVASTATIN 40 MG TABLET GT SCH (21:19)
[2022-09-04] MEDS: TAMSULOSIN 0.4 MG CAP.SR.24H GT SCH (21:19)
[2022-09-04] MEDS: SENNOSIDES 8.6 MG TABLET GT SCH (21:19)
[2022-09-04] MEDS: MELATONIN 3 MG TABLET GT SCH (21:19)
[2022-09-04] MEDS: INSULIN GLARGINE, 100 UNIT/ML CARTRIDGE SQ SCH (21:34)
[2022-09-05 00:37] VITALS: BP 99/57
[2022-09-05 01:27] VITALS: BP 105/54
[2022-09-05] MEDS: ALBUTEROL FS 2.5 MG/3 ML VIAL.NEB NEB SCH ×4 (01:41→18:59)
[2022-09-05 05:22] VITALS: BP 122/60
[2022-09-05] MEDS: PANTOPRAZOLE 40 MG/PACK PACK GT SCH (05:51)
[2022-09-05] MEDS: BLOOD SUGAR DIAGNOSTIC 1 EACH STRIP IN SCH ×4 (05:51→23:47)
[2022-09-05] MEDS: INSULIN REGULAR, HUMAN 100 UNIT/ML 3 ML VIAL SQ PRN ×4 (05:53→23:48)
[2022-09-05 07:11] VITALS: BP 122/68
[2022-09-05] MEDS: POLYETHYLENE GLYCOL 3350 17 GM POWD.PACK GT SCH (09:00)
[2022-09-05] MEDS: DOCUSATE SODIUM LIQ 100 MG/10 ML UDC GT SCH ×3 (09:00→17:48)
[2022-09-05] MEDS: FERROUS SULFATE (325 MG) 325 MG/TAB TABLET GT SCH (09:00)
[2022-09-05] MEDS: ACIDOPHILUS/BULGARICUS 1 EACH TAB.CHEW GT SCH ×2 (09:00→17:48)
[2022-09-05] MEDS: PROSOURCE / PROSTAT (PYXIS) 30 ML UDC GT SCH ×2 (09:00→17:48)
[2022-09-05] MEDS: ASCORBIC ACID 500 MG TABLET GT SCH (09:00)
[2022-09-05] MEDS: VITAMINS A AND D 56.7 GM TUBE TP SCH ×2 (09:00→20:08)
[2022-09-05] MEDS: ENOXAPARIN SODIUM 40 MG/0.4 ML DISP.SYRIN SQ SCH (09:00)
[2022-09-05] MEDS: HYDROGEN PEROXIDE 480 ML BOTTLE MC SCH ×2 (09:00→19:00)
[2022-09-05] MEDS: ZINC SULFATE 220 MG CAPSULE GT SCH (09:00)
[2022-09-05] MEDS: ASPIRIN 81 MG TAB.CHEW GT SCH (09:00)
[2022-09-05 12:27] VITALS: BP 138/69
[2022-09-05] MEDS: VITAL AF 1.2 1,000 ML BOTTLE GT PRN (17:32)
--- NOTE | 2022-09-05 18:33 | NUR ---
No desaturation, no respiratory distress noted throughout this shift. O2 sat 98-99%. Pt was frequently suctioned orally.
[2022-09-05 21:07] VITALS: BP 131/75
[2022-09-05] MEDS: ATORVASTATIN 40 MG TABLET GT SCH (21:26)
[2022-09-05] MEDS: TAMSULOSIN 0.4 MG CAP.SR.24H GT SCH (21:26)
[2022-09-05] MEDS: MELATONIN 3 MG TABLET GT SCH (21:26)
[2022-09-05] MEDS: SENNOSIDES 8.6 MG TABLET GT SCH (21:26)
[2022-09-05] MEDS: INSULIN GLARGINE, 100 UNIT/ML CARTRIDGE SQ SCH (21:27)
[2022-09-06 00:15] VITALS: BP 120/67
[2022-09-06] MEDS: ALBUTEROL FS 2.5 MG/3 ML VIAL.NEB NEB SCH ×4 (01:01→20:03)
--- NOTE | 2022-09-06 04:42 | NUR ---
Pt recvd awake on room air with no trach due to pt decannulated self. No SOB or respiratory distress noted at this time. Neb tx given via aerosol mask and mina well. SpO2 >97% maintained.
[2022-09-06] MEDS: PANTOPRAZOLE 40 MG/PACK PACK GT SCH (05:09)
[2022-09-06] MEDS: BLOOD SUGAR DIAGNOSTIC 1 EACH STRIP IN SCH ×3 (05:26→17:54)
[2022-09-06] MEDS: INSULIN REGULAR, HUMAN 100 UNIT/ML 3 ML VIAL SQ PRN ×3 (05:26→17:55)
[2022-09-06 08:02] VITALS: BP 103/62
[2022-09-06] MEDS: VITAMINS A AND D 56.7 GM TUBE TP SCH ×2 (09:00→21:15)
[2022-09-06] MEDS: ASPIRIN 81 MG TAB.CHEW GT SCH (09:00)
[2022-09-06] MEDS: ENOXAPARIN SODIUM 40 MG/0.4 ML DISP.SYRIN SQ SCH (09:00)
[2022-09-06] MEDS: FERROUS SULFATE (325 MG) 325 MG/TAB TABLET GT SCH (09:00)
[2022-09-06] MEDS: DOCUSATE SODIUM LIQ 100 MG/10 ML UDC GT SCH ×3 (09:00→17:30)
[2022-09-06] MEDS: ASCORBIC ACID 500 MG TABLET GT SCH (09:00)
[2022-09-06] MEDS: ZINC SULFATE 220 MG CAPSULE GT SCH (09:00)
[2022-09-06] MEDS: PROSOURCE / PROSTAT (PYXIS) 30 ML UDC GT SCH ×2 (09:00→17:30)
[2022-09-06] MEDS: POLYETHYLENE GLYCOL 3350 17 GM POWD.PACK GT SCH (09:00)
[2022-09-06] MEDS: ACIDOPHILUS/BULGARICUS 1 EACH TAB.CHEW GT SCH ×2 (09:00→17:30)
[2022-09-06] MEDS: HYDROGEN PEROXIDE 480 ML BOTTLE MC SCH ×2 (09:20→20:03)
[2022-09-06] MEDS: VITAL AF 1.2 1,000 ML BOTTLE GT PRN (11:49)
--- NOTE | 2022-09-06 16:29 | NUR ---
SNF REFERRAL: Per the pt.'s , Rosaline's request PIERRE called [facility] and spoke with Josefina Kaiser tel: [phone] regarding possible referral. Josefina stated they only provide penitentiary level of care and cannot provide care for Gtube so pt. cannot be accepted. Noted SW notified Rosaline who expressed understanding. Per Rosaline's request, PIERRE also called [facility] tel: [phone] and spoke to [facility] from admissions dept. PIERRE faxed clinicals to [facility] at fax: [phone]. [facility] notified SW this afternoon that they can accept pt. PIERRE notified Charge nurse and head gauge unit operator. Pt. discharge to follow. Rosaline was informed and was agreeable and would like to be notified of discharge date.
--- NOTE | 2022-09-06 16:44 | NUR ---
Dr. Colón and Dr. Mack notified that patient was accepted at [facility], both physician gave clearance for discharge. manager graphic informed and said to have SSD arrange discharge on Friday. SSD informed. Endorsed to incoming shift.
--- NOTE | 2022-09-06 17:49 | NUR ---
RT NOTE Pt received on Room Air. Pt has no trach tube due to decannulation. Pt is stable on RA w/ no resp distress or SOB noted. No episodes of desaturation noted. Neb Tx given and mina. well.
[2022-09-06 19:28] VITALS: BP 130/64
[2022-09-06] MEDS: SENNOSIDES 8.6 MG TABLET GT SCH (21:15)
[2022-09-06] MEDS: MELATONIN 3 MG TABLET GT SCH (21:15)
[2022-09-06] MEDS: ATORVASTATIN 40 MG TABLET GT SCH (21:15)
[2022-09-06] MEDS: TAMSULOSIN 0.4 MG CAP.SR.24H GT SCH (21:15)
[2022-09-06] MEDS: INSULIN GLARGINE, 100 UNIT/ML CARTRIDGE SQ SCH (22:00)
--- NOTE | 2022-09-06 22:05 | NUR ---
Held routine Lantus 7 units d/t BS 82. Pt awake. No s/s acute respiratory distress noted. will continue to monitor closely.
[2022-09-07 00:39] VITALS: BP 133/62
[2022-09-07] MEDS: ALBUTEROL FS 2.5 MG/3 ML VIAL.NEB NEB SCH ×4 (00:45→19:07)
[2022-09-07] MEDS: BLOOD SUGAR DIAGNOSTIC 1 EACH STRIP IN SCH ×4 (00:46→18:13)
[2022-09-07] MEDS: INSULIN REGULAR, HUMAN 100 UNIT/ML 3 ML VIAL SQ PRN ×4 (00:48→18:13)
[2022-09-07] MEDS: PANTOPRAZOLE 40 MG/PACK PACK GT SCH (05:12)
[2022-09-07] MEDS: VITAL AF 1.2 1,000 ML BOTTLE GT PRN (05:12)
[2022-09-07 07:24] VITALS: BP 135/74
[2022-09-07] MEDS: FERROUS SULFATE (325 MG) 325 MG/TAB TABLET GT SCH (09:13)
[2022-09-07] MEDS: ASPIRIN 81 MG TAB.CHEW GT SCH (09:13)
[2022-09-07] MEDS: DOCUSATE SODIUM LIQ 100 MG/10 ML UDC GT SCH ×3 (09:13→17:12)
[2022-09-07] MEDS: ASCORBIC ACID 500 MG TABLET GT SCH (09:16)
[2022-09-07] MEDS: ACIDOPHILUS/BULGARICUS 1 EACH TAB.CHEW GT SCH ×2 (09:16→17:12)
[2022-09-07] MEDS: PROSOURCE / PROSTAT (PYXIS) 30 ML UDC GT SCH ×2 (09:16→17:12)
[2022-09-07] MEDS: POLYETHYLENE GLYCOL 3350 17 GM POWD.PACK GT SCH (09:16)
[2022-09-07] MEDS: ZINC SULFATE 220 MG CAPSULE GT SCH (09:17)
[2022-09-07] MEDS: VITAMINS A AND D 56.7 GM TUBE TP SCH ×2 (09:17→21:03)
[2022-09-07] MEDS: ENOXAPARIN SODIUM 40 MG/0.4 ML DISP.SYRIN SQ SCH (09:17)
[2022-09-07] MEDS: HYDROGEN PEROXIDE 480 ML BOTTLE MC SCH ×2 (09:54→20:54)
[2022-09-07 12:37] VITALS: BP 127/62
--- NOTE | 2022-09-07 15:09 | NUR ---
RT NOTE Pt received on Room Air with no trach tube in place. Pt is stable on RA w/ no resp. distress or SOB noted. No episodes of desaturation noted. Neb Tx given and mina. well.
[2022-09-07 19:23] VITALS: BP 149/78
[2022-09-07] MEDS: TAMSULOSIN 0.4 MG CAP.SR.24H GT SCH (21:03)
[2022-09-07] MEDS: MELATONIN 3 MG TABLET GT SCH (21:03)
[2022-09-07] MEDS: SENNOSIDES 8.6 MG TABLET GT SCH (21:03)
[2022-09-07] MEDS: ATORVASTATIN 40 MG TABLET GT SCH (21:03)
[2022-09-07] MEDS: INSULIN GLARGINE, 100 UNIT/ML CARTRIDGE SQ SCH (21:24)
[2022-09-08] MEDS: BLOOD SUGAR DIAGNOSTIC 1 EACH STRIP IN SCH ×5 (00:02→23:19)
[2022-09-08] MEDS: INSULIN REGULAR, HUMAN 100 UNIT/ML 3 ML VIAL SQ PRN ×4 (00:03→23:20)
[2022-09-08 00:30] VITALS: BP 149/70
[2022-09-08] MEDS: ALBUTEROL FS 2.5 MG/3 ML VIAL.NEB NEB SCH ×4 (01:58→18:57)
[2022-09-08] MEDS: PANTOPRAZOLE 40 MG/PACK PACK GT SCH (05:03)
[2022-09-08 08:11] VITALS: BP 126/69
[2022-09-08] MEDS: HYDROGEN PEROXIDE 480 ML BOTTLE MC SCH ×2 (09:13→20:19)
[2022-09-08] MEDS: POLYETHYLENE GLYCOL 3350 17 GM POWD.PACK GT SCH (09:21)
[2022-09-08] MEDS: ENOXAPARIN SODIUM 40 MG/0.4 ML DISP.SYRIN SQ SCH (09:21)
[2022-09-08] MEDS: ACIDOPHILUS/BULGARICUS 1 EACH TAB.CHEW GT SCH ×2 (09:21→16:58)
[2022-09-08] MEDS: PROSOURCE / PROSTAT (PYXIS) 30 ML UDC GT SCH ×2 (09:21→16:58)
[2022-09-08] MEDS: FERROUS SULFATE (325 MG) 325 MG/TAB TABLET GT SCH (09:21)
[2022-09-08] MEDS: ASPIRIN 81 MG TAB.CHEW GT SCH (09:21)
[2022-09-08] MEDS: DOCUSATE SODIUM LIQ 100 MG/10 ML UDC GT SCH ×3 (09:21→16:58)
[2022-09-08] MEDS: ASCORBIC ACID 500 MG TABLET GT SCH (09:21)
[2022-09-08] MEDS: ZINC SULFATE 220 MG CAPSULE GT SCH (09:21)
[2022-09-08] MEDS: VITAMINS A AND D 56.7 GM TUBE TP SCH ×2 (09:22→21:38)
[2022-09-08 12:25] VITALS: BP 130/73
[2022-09-08] MEDS: VITAL AF 1.2 1,000 ML BOTTLE GT PRN (17:20)
--- NOTE | 2022-09-08 19:10 | NUR ---
RT NOTE FOUND PT ON 2LPM NC. TX GIVEN. NO INCREASED WON NOTED. NO S/S OF ACUTE RESPIRATORY DISTRESS NOTED
[2022-09-08 20:07] VITALS: BP 158/89
[2022-09-08] MEDS: MELATONIN 3 MG TABLET GT SCH (21:38)
[2022-09-08] MEDS: SENNOSIDES 8.6 MG TABLET GT SCH (21:38)
[2022-09-08] MEDS: ATORVASTATIN 40 MG TABLET GT SCH (21:38)
[2022-09-08] MEDS: TAMSULOSIN 0.4 MG CAP.SR.24H GT SCH (21:38)
[2022-09-08] MEDS: INSULIN GLARGINE, 100 UNIT/ML CARTRIDGE SQ SCH (21:43)
[2022-09-09] MEDS: ALBUTEROL FS 2.5 MG/3 ML VIAL.NEB NEB SCH ×3 (00:48→12:40)
[2022-09-09 00:51] VITALS: BP 130/57
[2022-09-09] MEDS: PANTOPRAZOLE 40 MG/PACK PACK GT SCH (05:35)
[2022-09-09] MEDS: BLOOD SUGAR DIAGNOSTIC 1 EACH STRIP IN SCH ×2 (05:35→12:00)
[2022-09-09] MEDS: INSULIN REGULAR, HUMAN 100 UNIT/ML 3 ML VIAL SQ PRN ×2 (05:36→13:05)
[2022-09-09 07:49] VITALS: BP 127/73
[2022-09-09] MEDS: HYDROGEN PEROXIDE 480 ML BOTTLE MC SCH (09:29)
[2022-09-09] MEDS: FERROUS SULFATE (325 MG) 325 MG/TAB TABLET GT SCH (09:40)
[2022-09-09] MEDS: ASPIRIN 81 MG TAB.CHEW GT SCH (09:40)
[2022-09-09] MEDS: ACIDOPHILUS/BULGARICUS 1 EACH TAB.CHEW GT SCH (09:40)
[2022-09-09] MEDS: POLYETHYLENE GLYCOL 3350 17 GM POWD.PACK GT SCH (09:40)
[2022-09-09] MEDS: DOCUSATE SODIUM LIQ 100 MG/10 ML UDC GT SCH ×2 (09:40→13:04)
[2022-09-09] MEDS: PROSOURCE / PROSTAT (PYXIS) 30 ML UDC GT SCH (09:41)
[2022-09-09] MEDS: ASCORBIC ACID 500 MG TABLET GT SCH (09:41)
[2022-09-09] MEDS: ZINC SULFATE 220 MG CAPSULE GT SCH (09:41)
[2022-09-09] MEDS: ENOXAPARIN SODIUM 40 MG/0.4 ML DISP.SYRIN SQ SCH (09:43)
[2022-09-09] MEDS: VITAMINS A AND D 56.7 GM TUBE TP SCH (09:44)
[2022-09-09 11:44] VITALS: BP 130/64
--- NOTE | 2022-09-09 12:09 | NUR ---
Seen and examined by SHAHRAM Christine, informed of planned discharge to [facility]. today, no new order given.
--- NOTE | 2022-09-09 12:52 | NUR ---
DC Planning: PIERRE was asked to make discharge arrangements for today. PIERRE called and spoke to college admissions counselor, Mariah [id number] [facility] [address]; TEL: [phone]]. Per Mariah pt. can be transferred tot [facility] after 1500, pt. will be in room 11A under the care of Dr. Bailey. CRN may call TEL: [phone] and give nurse to nurse report to nursing clothing room supervisor, Sivan. PIERRE notified CRN. Per KEN, Nuvia medications will be sent over for the rest of the month. PIERRE faxed the discharge order to mariah AT fax: [phone] Ambulance transport: PIERRE called [facility] transport line tel: [phone] and spoke with Will to arrange rney transport arounf 1530 pickle cutter from [facility] to [facility][[id number] [facility] [address] [address]; TEL: [phone]]. Reservation ID# [id number]. Per Will they will call [facility]Acute and provide official ick up time and ambulance company providing transport. Noted. PIERRE notified KEN.
--- NOTE | 2022-09-09 13:06 | NUR ---
PIERRE called the pt.'s Rosaline Newton [phone] and notified her of possible DC to [facility] for today and she stated she is agreeable.
--- NOTE | 2022-09-09 14:45 | NUR ---
Discharged to [facility] was picked up by [facility] per marlon. Resident awake, responsive, no s/s of resp. distress, on nasal cannula at 2 LPM. Skin intact. GT intact and patent. All belongings and paperwork given to transport staff. [facility], gave hand-off endorsement. Dr. Mack informed of transfer. Responsible green party Harshad Bean was informed by PIERRE Garrison
== END 2022-09-09 14:45 | DRG 189 ==
LOC: SA 00:14 → MED 07-13 00:25 → SA 07-13 00:29
PROVIDERS: ADMIT Internal Medicine; ATTEND Internal Medicine
DX: J96.21 Acute and chronic respiratory failure with hypoxia (principal); N17.0 Acute kidney failure with tubular necrosis; E44.0 Moderate protein-calorie malnutrition; E87.1 Hypo-osmolality and hyponatremia; Z99.11 Dependence on respirator [ventilator] status; G93.1 Anoxic brain damage, not elsewhere classified; E87.3 Alkalosis; E27.40 Unspecified adrenocortical insufficiency; E87.0 Hyperosmolality and hypernatremia; K94.23 Gastrostomy malfunction; E86.0 Dehydration; Z20.822 Contact with and (suspected) exposure to COVID-19; E78.5 Hyperlipidemia, unspecified; E83.39 Other disorders of phosphorus metabolism; E86.1 Hypovolemia; E11.22 Type 2 diabetes mellitus with diabetic chronic kidney disease; I12.9 Hypertensive chronic kidney disease with stage 1 through stage 4 chronic kidney disease, or unspecified chronic kidney disease; N18.9 Chronic kidney disease, unspecified; E87.6 Hypokalemia; F32.A Depression, unspecified; G30.9 Alzheimer's disease, unspecified; E88.09 Other disorders of plasma-protein metabolism, not elsewhere classified; N40.0 Benign prostatic hyperplasia without lower urinary tract symptoms; R13.10 Dysphagia, unspecified; E11.649 Type 2 diabetes mellitus with hypoglycemia without coma; F29 Unspecified psychosis not due to a substance or known physiological condition; Z85.028 Personal history of other malignant neoplasm of stomach; D63.8 Anemia in other chronic diseases classified elsewhere; K59.00 Constipation, unspecified; Z79.4 Long term (current) use of insulin; Z79.82 Long term (current) use of aspirin; Z79.899 Other long term (current) drug therapy; Z79.01 Long term (current) use of anticoagulants; M62.50 Muscle wasting and atrophy, not elsewhere classified, unspecified site; L60.3 Nail dystrophy; R19.7 Diarrhea, unspecified; Y83.3 Surgical operation with formation of external stoma as the cause of abnormal reaction of the patient, or of later complication, without mention of misadventure at the time of the procedure; Y82.8 Other medical devices associated with adverse incidents; Y92.199 Unspecified place in other specified residential institution as the place of occurrence of the external cause; F02.80 Dementia in other diseases classified elsewhere, unspecified severity, without behavioral disturbance, psychotic disturbance, mood disturbance, and anxiety
CPT/HCPCS: 31720; 36415; 36600; 80048-TC; 82803-TC; 82962-TC; 83735-TC; 84100-TC; 85025-TC; 94640-TC; 94760-TC; 94761-TC; 94762-TC; 94799-TC; 97110-TC; 97112-TC; 97530-TC; 97760-TC; A4217; A4623; A7526; J1720; J1815; J2185; J3010; J3475; J3480; J3490; J7030; Q2036; U0003

== ENCOUNTER 2022-07-11 18:03 | Outpatient (CLI) | payer MEDICARE, MEDICAID ==
[~2022-07-11 18:03] MED LIST changes: +IOHEXOL-300 100 ML VIAL IV ONE; +IV NS 0.9% 250 ML IV ONE
== END 2022-07-11 23:59 | disposition home or self-care (01) ==
LOC: CT 18:03
PROVIDERS: ATTEND Internal Medicine
DX: R91.8 Other nonspecific abnormal finding of lung field (principal); I70.0 Atherosclerosis of aorta; N28.1 Cyst of kidney, acquired; D11.9 Benign neoplasm of major salivary gland, unspecified; E16.2 Hypoglycemia, unspecified; Z93.3 Colostomy status
CPT/HCPCS: 74160; J7050; Q9967

== ENCOUNTER 2022-07-12 23:11 | Inpatient (IN) | payer MEDICARE, OTHER ==
[~2022-07-12] VITALS: Ht 177.8 cm; Wt 46.3 kg
[~2022-07-12 23:11] MED LIST changes: -IOHEXOL-300 100 ML VIAL IV ONE; -IV NS 0.9% 250 ML IV ONE
--- NOTE | 2022-07-13 00:30 | NUR ---
ADMISSION NOTES RECEIVED PT VIA BED, ACCOMPANIED BY SUBACUTE STAFF AND RESPIRATORY THERAPIST AT APPROXIMATELY 0025. AOx1, OPENS EYES AND MUMBLES INCOHERENT WORDS. ON AEROSOLIZED TRACH, CHAPARROLEY #8 UNCUFFED, FiIO2 OF 28% AND TOLERATED WELL. NO SOB NOTED. NO S/SX OF RESPIRATORY DISTRESS NOTED. TELE MONITOR ON. IV ACCESS IN HALLIE PICC LINE RUNNING D10NS @ 80ML/HR. G-TUBE FEEDING BEING HELD. DUENAS CATHETER IN PLACE: DRAINING CLEAR, YELLOW URINE. SAFETY PRECAUTIONS IN PLACE: BED IN LOWEST, LOCKED POSITION, SIDERAILS UPx2, AND BRAKES ON. PER SUBACUTE NURSE, FAMILY MADE AWARE OF TRANSFER. TABLE AND CALL LIGHT WITHIN REACH. ALL NEEDS MET AT THIS TIME.
[2022-07-13] MEDS ORDERED: ONDANSETRON HCL/PF 4 MG/2 ML VIAL IVP PRN (03:00)
[2022-07-13] MEDS ORDERED: MAG HYDROX/AL HYDROX/SIMETH 30 ML UDC PO PRN (03:00)
[2022-07-13] MEDS ORDERED: MAGNESIUM HYDROXIDE 30 ML UDC PO PRN (03:00)
[2022-07-13] MEDS ORDERED: DEXTROSE 50%-WATER 50 ML DISP.SYRIN IV PRN (03:00)
[2022-07-13] MEDS ORDERED: ACETAMINOPHEN 325 MG TABLET PO PRN (03:00)
[2022-07-13] MEDS ORDERED: Z GUARD REMEDY 4 OZ OINT TP PRN (03:00)
[2022-07-13] MEDS ORDERED: Sodium Chloride 154 MEQ in IV 10% DEXTROSE 1,000 ML IV PRN (03:00)
[2022-07-13] MEDS ORDERED: ENOXAPARIN SODIUM 40 MG/0.4 ML DISP.SYRIN SQ SCH (03:19)
--- NOTE | 2022-07-13 05:10 | NUR ---
RN NOTES DID NOT ADMINISTER LOVENOX SINCE PT MAY HAVE PROCEDURE.
[2022-07-13] MEDS: BLOOD SUGAR DIAGNOSTIC 1 EACH STRIP IN SCH ×3 (06:00→17:28)
[2022-07-13] MEDS: INSULIN REGULAR, HUMAN 100 UNIT/ML 3 ML VIAL SQ PRN ×2 (06:01→17:31)
--- NOTE | 2022-07-13 06:40 | NUR ---
RN CLOSING NOTES PT IN BED, EYES OPEN, MUMBLING WORDS. AOx1, OPENS EYES AND MUMBLES INCOHERENT WORDS. ON AEROSOLIZED TRACH, CHAPARROLEY #8 UNCUFFED, FiIO2 OF 28% AND TOLERATED WELL. NO SOB NOTED. NO S/SX OF RESPIRATORY DISTRESS NOTED.IV ACCESS IN HALLIE PICC LINE RUNNING D10NS @ 80ML/HR. G-TUBE FEEDING BEING HELD. DUENAS CATHETER IN PLACE: DRAINING CLEAR, YELLOW URINE. ALL ORDERS CARRIED OUT. ALL NEEDS MET. PT KEPT CLEAN AND DRY. WOUND PICTURES TAKEN WITH WOUND CARE CONSULT ORDERED. SAFETY PRECAUTIONS IN PLACE: BED IN LOWEST, LOCKED POSITION, SIDERAILS UPx2, AND BRAKES ON. PER SUBACUTE NURSE, FAMILY MADE AWARE OF TRANSFER. TABLE AND CALL LIGHT WITHIN REACH. WILL ENDORSE TO ONCOMING SHIFT FOR DENG.
--- NOTE | 2022-07-13 07:00 | NUR ---
RN OPENING NOTES: RECEIVED PATIENT IN BED AWAKE , NON VERBAL OPEN EYES,MUMBLES. NO SOB OR CARDIAC DISTRESS NOTED, ON TRACH AEROSOL SHILEY #18 UNCUFFED F102 28%. WITH DUENAS CATHETER NOTED DRAINING CLEAR YELLOW COLORED URINE DRAINING VIA GRAVITY. PATIENT CONTRACTED. IV ACCESS HALLIE PICC LINE D10NS @80ML/HR PATENT, INTACT AND INFUSING WELL. SAFETY PRECAUTIONS MAINTAINED: BED LOCKED AND IN LOWEST POSITION, SIDE RAILS UP X2. CALL LIGHT IN EASY REACH. KEPT RESTED AND COMFORTABLE. WILL MONITOR ACCORDINGLY.
[2022-07-13 08:00] VITALS: BP 127/74
[2022-07-13] MEDS ORDERED: LIPA1CAP27 GT (09:23)
[2022-07-13] MEDS ORDERED: BENEFIBER GT (09:23)
[2022-07-13] MEDS ORDERED: SODIUM CHLORIDE IV (09:23)
[2022-07-13] MEDS ORDERED: LOPE2TAB25 GT (09:23)
[2022-07-13] MEDS ORDERED: CHOL4PAC GT (09:23)
[2022-07-13] MEDS ORDERED: POTA20TA83 GT (09:23)
[2022-07-13] MEDS: Sodium Chloride 154 MEQ in IV 10% DEXTROSE 1,000 ML IV SCH ×2 (09:33→21:19)
[2022-07-13] MEDS: ENOXAPARIN SODIUM 40 MG/0.4 ML DISP.SYRIN SQ SCH (09:34)
--- NOTE | 2022-07-13 11:47 | NUR ---
RN NOTES: BS INITIALLY IS 45MG/DL, RECHECKED BS 68 MG/DL. INFORMED DR CLEMONS, ORDERED CONTINUE MONITORING AND CONTINUE CURRENT IV FLUID D10 X 80CC/HR.
[2022-07-13 16:00] VITALS: BP_SYST 119; BP_SYST 159; BP_DIAS 68; BP_DIAS 74
--- NOTE | 2022-07-13 18:52 | NUR ---
RN CLOSING NOTES: PATIENT IN BED AWAKE , NON VERBAL OPEN EYES,MUMBLES. NO SOB OR CARDIAC DISTRESS NOTED, ON TRACH AEROSOL SHILEY #18 UNCUFFED F102 28%. WITH DUENAS CATHETER NOTED DRAINING YELLOW COLORED URINE DRAINING VIA GRAVITY. PATIENT CONTRACTED BUE, BLE.GTUBE IN PLACE (MALFUNCTIONED). IV ACCESS HALLIE PICC LINE D10NS @80ML/HR PATENT, INTACT AND INFUSING WELL. SAFETY PRECAUTIONS MAINTAINED: BED LOCKED AND IN LOWEST POSITION, SIDE RAILS UP X2. CALL LIGHT IN EASY REACH. KEPT RESTED AND COMFORTABLE.ENDORSED TO [facility] SHIFT NURSE FOR DENG.
--- NOTE | 2022-07-13 19:35 | NUR ---
RN OPENING NOTES RECEIVED PT IN BED, LYING ON SIDE, WITH EYES OPEN. AOx1, OPENS EYES AND MUMBLES INCOHERENT WORDS. ON AEROSOLIZED TRACH, SHILEY #8 UNCUFFED, FiIO2 OF 28% AND TOLERATED WELL. NO SOB NOTED. NO S/SX OF RESPIRATORY DISTRESS NOTED. IV ACCESS IN HALLIE PICC LINE RUNNING D10NS @ 80ML/HR. G-TUBE FEEDING BEING HELD. DUENAS CATHETER IN PLACE: DRAINING CLEAR, YELLOW URINE. SAFETY PRECAUTIONS IN PLACE: BED IN LOWEST, LOCKED POSITION, SIDERAILS UPx2, AND BRAKES ON. TABLE AND CALL LIGHT WITHIN REACH. ALL NEEDS MET AT THIS TIME.
[2022-07-13 20:00] VITALS: BP 122/73
--- NOTE | 2022-07-13 20:30 | NUR ---
RN NOTES CONTACTED BY ANESTHESIOLOGIST, DR. ROSALES, WHO REQUESTED PATIENT HAVE 2 UNITS OF BLOOD ON STANDBY FOR OR, TYPE AND SCREEN, AND THAT PATIENT HAVE CUFFED TRACHEOSTOMY FOR PROCEDURE. PER RT, TRACH IS CUFFED. ALSO REQUESTED THAT BE AVAILABLE FOR CALL AT APPROXIMATELY NOON. CONTACTED AND MADE AWARE. ORDERS CARRIED OUT.
[2022-07-14] MEDS: BLOOD SUGAR DIAGNOSTIC 1 EACH STRIP IN SCH ×5 (01:03→18:56)
[2022-07-14 06:02] LABS: BASOPHILS # (AUTO) 0.1 K/uL (0.0-0.2); BASOPHILS % (AUTO) 1.3 % (0.0-2.0); EOSINOPHILS % (AUTO) 2.5 % (0.0-6.0); HEMATOCRIT 30 % (39-51); HEMOGLOBIN 9.8 g/dL (13.5-17.5); LYMPHOCYTES # (AUTO) 1.3 K/uL (0.8-4.8); LYMPHOCYTES % (AUTO) 26.6 % (20.0-44.0); MEAN CORPUSCULAR HGB CONC 33 g/dl (31.0-36.0); MEAN CORPUSCULAR VOLUME 79 fL (80-96); MONOCYTES # (AUTO) 0.6 K/uL (0.1-1.30); MONOCYTES % (AUTO) 12.4 % (2.0-12.0); NEUTROPHILS # (AUTO) 2.8 K/uL (1.8-8.9); NEUTROPHILS % (AUTO) 57.2 % (43.0-81.0); PLATELET COUNT (AUTO) 596 K/uL (150-450); RED BLOOD CELL COUNT(AUTO) 3.79 MIL/uL (4.5-6.0); WHITE BLOOD COUNT (AUTO) 4.9 K/uL (4.3-11.0)
[2022-07-14 06:22] LABS: CALCIUM, SERUM 7.3 mg/dL (8.5-10.1); CREATININE 0.6 mg/dL (0.6-1.3); MAGNESIUM 1.3 mg/dL (1.8-2.4); PHOSPHORUS 2.6 mg/dL (2.5-4.9)
[2022-07-14] MEDS: INSULIN REGULAR, HUMAN 100 UNIT/ML 3 ML VIAL SQ PRN ×3 (06:43→17:54)
--- NOTE | 2022-07-14 06:58 | NUR ---
RN CLOSING NOTES PT IN BED, LYING ON SIDE, WITH EYES OPEN. AOx1, OPENS EYES AND MUMBLES INCOHERENT WORDS. ON AEROSOLIZED TRACH, SHILEY #8 CUFFED, FiIO2 OF 28% AND TOLERATING WELL. NO SOB NOTED. NO S/SX OF RESPIRATORY DISTRESS NOTED. IV ACCESS IN HALLIE PICC LINE RUNNING D10NS @ 80ML/HR. G-TUBE FEEDING BEING HELD. DUENAS CATHETER IN PLACE: DRAINING CLEAR, YELLOW URINE. ALL ORDERS CARRIED OUT. ALL NEEDS MET. PT KEPT CLEAN AND DRY. SAFETY PRECAUTIONS IN PLACE: BED IN LOWEST, LOCKED POSITION, SIDERAILS UPx2, AND BRAKES ON. TABLE AND CALL LIGHT WITHIN REACH. WILL ENDORSE TO ONCOMING SHIFT FOR DENG.
--- NOTE | 2022-07-14 07:23 | NUR ---
RN OPENING NOTE RECEIVED PATIENT IN BED AWAKE , EYES OPEN, NON VERBAL, MUMBLES. ON TRACH AEROSOL SHILEY #8, CUFFED, F102 28%. NO SOB OR CARDIAC DISTRESS NOTED. WITH DUENAS CATHETER NOTED DRAINING CLEAR YELLOW COLORED URINE DRAINING VIA GRAVITY. NOTED PATIENT CONTRACTED. WITH IV ACCESS HALLIE PICC LINE, INTACT AND PATENT, WITH D10NS @80ML/HR INFUSING WELL. SAFETY PRECAUTIONS IN PLACE. BED LOCKED AND IN LOWEST POSITION, SIDE RAILS UP X2. CALL LIGHT IN EASY REACH. WILL CONTINUE TO MONITOR PATIENT.
[2022-07-14 07:37] LABS: POTASSIUM 2.8 mmol/L (3.5-5.1)
[2022-07-14 08:42] LABS: BILIRUBIN,URINE NEGATIVE (NEGATIVE); COLOR,URINE YELLOW (YELLOW); LEUKOCYTE ESTERASE ,URINE TRACE (NEGATIVE); NITRITE, URINE POSITIVE (NEGATIVE); PROTEIN,URINE NEGATIVE (NEGATIVE); UGLUCOSE 100 MG/DL mg/dL (NEGATIVE); UROBILINOGEN,URINE 0.2 EU/dL (0.2)
[2022-07-14] MEDS: Magnesium 1GM/D5W 100ML PREMIX 100 ML IV SCH ×4 (08:48→11:51)
[2022-07-14] MEDS: POTASSIUM CL. PREMIX PERIPHER. 50 ML IV SCH ×9 (08:49→21:12)
[2022-07-14] MEDS: ENOXAPARIN SODIUM 40 MG/0.4 ML DISP.SYRIN SQ SCH (09:00)
--- NOTE | 2022-07-14 09:05 | NUR ---
RN NOTE LOVENOX HELD, PATIENT HAS SCHEDULED SURGERY TODAY.
[2022-07-14] MEDS: Sodium Chloride 154 MEQ in IV 10% DEXTROSE 1,000 ML IV SCH (10:30)
[2022-07-14 10:51] LABS: BACTERIA,URINE Many /HPF (None Seen); RBC,URINE 0-2 /HPF (0-2); SQUAMOUS EPITHELIAL CELL,UR Few /HPF (None Seen)
[2022-07-14] MEDS ORDERED: ANESTHESIA TRAY IN PYXIS 1 EA TRAY MC ONE (12:01)
[2022-07-14] MEDS ORDERED: BUPIVACAINE MPF W/EPI 0.25% 30 ML VIAL ONE (12:02)
[2022-07-14] MEDS ORDERED: LIDOCAINE 1% INJ 50 ML MDV IJ ONE (12:02)
--- NOTE | 2022-07-14 12:29 | NUR ---
RN NOTE PATIENT PICKED UP FOR SURGERY VIA BED BY CHIKI PABON. PATIENT IN STABLE CONDITION, NOT IN ACUTE DISTRESS, SPO2 100% ON O2 @5LPM VIA T-PIECE.
[2022-07-14] MEDS ORDERED: BISACODYL SUPP (10 MG) 10 MG/SUPP.RECT SUPP.RECT RC PRN (13:30)
[2022-07-14] MEDS: ALBUTEROL FS 2.5 MG/0.5 ML VIAL.NEB NEB SCH ×2 (13:30→20:13)
[2022-07-14] MEDS ORDERED: POLYVINYL ALCOHOL 15 ML BOTTLE EACHEYE PRN (13:30)
[2022-07-14] MEDS ORDERED: CLONIDINE HCL 0.1 MG TABLET GT PRN (13:30)
[2022-07-14] MEDS ORDERED: ACETAMINOPHEN 650 MG/20.3 ML UDC GT PRN (13:30)
[2022-07-14] MEDS ORDERED: LOPERAMIDE HCL UDC 2 MG/15 ML LIQUID GT PRN (14:00)
[2022-07-14] MEDS ORDERED: BACITRACIN ZINC OINT PACKET 1 EA PACKET TP ONE (14:40)
[2022-07-14] MEDS ORDERED: FENTANYL PF 100MCG/2ML AMPUL ONE (15:47)
[2022-07-14] MEDS ORDERED: IV NS 0.9% 1,000 ML IV PRN (16:30)
[2022-07-14 16:45] VITALS: BP 144/95
--- NOTE | 2022-07-14 16:45 | NUR ---
RN NOTES Patient back from surgery with Dr. Paredes. S/P Diagnostic laparoscopy, closure of colostomy site. Closure of gastrocolonic fistula. Gastrotomy and placement of a new percutaneous gastrostomy feeding tube and closure of gastrotomy site. Patient awake, Alert to self. Vital signs taken, stable and recorded. PEG tube site with dressing C/D/I. Laparascopic sites also with dressing C/D/I. no bleeding on site noted. new orders received fro Dr. Paredes to start PEG tube placement tomorrow AM @30cc/hr. STAT Abdominal Xray ordered to check PEG placement. Kept patient comfortable will continue to monitor.
[2022-07-14 17:00] VITALS: BP 129/62
[2022-07-14] MEDS: ACIDOPHILUS/BULGARICUS 1 EACH TAB.CHEW GT SCH (17:00)
[2022-07-14] MEDS: PROSOURCE / PROSTAT (PYXIS) 30 ML UDC GT SCH (17:00)
[2022-07-14] MEDS ORDERED: BENEFIBER 4 GM 1 EA PACKET GT SCH ×2 (17:00)
[2022-07-14 17:15] VITALS: BP 140/91
[2022-07-14 17:30] VITALS: BP 139/83
--- NOTE | 2022-07-14 17:35 | NUR ---
RN NOTE KCL 10MEQ/50ML DOSE@1300 AND 1400 GIVEN IN THE O.R. DOSE @1500 JUST STARTED. PATIENT JUST CAME BACK FROM SURGERY.
[2022-07-14] MEDS ORDERED: DIATR MEGLU/DIATRIZOATE SODIUM 30 ML BOTTLE (GASTROGRAPHIN) ONE (18:39)
[2022-07-14] MEDS ORDERED: IOHEXOL 50 ML IV ONE (18:39)
--- NOTE | 2022-07-14 19:00 | NUR ---
RN CLOSING NOTES PATIENT IN RESTING IN BED, EASILY AROUSED. OPENS EYES, NON VERBAL, MUMBLES. REMAINS ON TRACH SHILEY #8 WITH COOL AEROSOL MIST, UNCUFFED, FI02 28%. NO SOB OR CARDIAC DISTRESS NOTED. WITH DUENAS CATHETER NOTED DRAINING CLEAR YELLOW COLORED URINE DRAINING VIA GRAVITY. IV ACCESS HALLIE PICC LINE, INTACT AND PATENT. KCL 10 MEQ/50 ML ONGOING. AWAITING RESULT FOR STAT ABDOMINAL X-RAY. SAFETY PRECAUTIONS IN PLACE. BED LOCKED AND IN LOWEST POSITION, SIDE RAILS UP X2. CALL LIGHT IN EASY REACH. WILL ENDORSE TO NEXT SHIFT FOR CONTINUITY OF CARE.
[2022-07-14 20:00] VITALS: BP 142/94
--- NOTE | 2022-07-14 20:05 | NUR ---
RN OPENING NOTE RECEIVED PATIENT IN BED WITH EYES CLOSED BUT EASY TO AROUSED,NON VERBAL,ON TRACH AEROSOL SHILEY #8, CUFFED, F102 28%.KAILEE WELL,NO SOB/DISTRESS NOTED.NO FACIAL SUMMERS FOR PAIN/DISCOMFORT AT THIS TIME. DUENAS CATHETER NOTED DRAINING CLEAR YELLOW COLORED URINE DRAINING VIA GRAVITY. NOTED PATIENT CONTRACTED. WITH IV ACCESS HALLIE PICC LINE, INTACT AND PATENT,SAFETY PRECAUTIONS IN PLACE. BED LOCKED AND IN LOWEST POSITION, SIDE RAILS UP X2. CALL LIGHT IN EASY REACH. WILL CONTINUE TO MONITOR.
--- NOTE | 2022-07-14 20:10 | NUR ---
RN NOTES; MORNING NURSE JANES ENDORSED,TO SCAN AND GIVE PASS DUE MEDS POTASSIUM DUE TO S/P SURGERY.
[2022-07-14] MEDS: TAMSULOSIN 0.4 MG CAP.SR.24H GT SCH (21:30)
[2022-07-14] MEDS: LIPASE/PROTEASE/AMYLASE 1 EACH CAPSULE.DR GT SCH (21:30)
[2022-07-14] MEDS: ATORVASTATIN 40 MG TABLET GT SCH (21:30)
[2022-07-14] MEDS: VITAMINS A AND D 56.7 GM TUBE TP SCH (21:38)
[2022-07-15] MEDS: INSULIN REGULAR, HUMAN 100 UNIT/ML 3 ML VIAL SQ PRN ×3 (00:55→23:57)
[2022-07-15] MEDS: BLOOD SUGAR DIAGNOSTIC 1 EACH STRIP IN SCH ×9 (00:56→23:57)
[2022-07-15] MEDS: ALBUTEROL FS 2.5 MG/0.5 ML VIAL.NEB NEB SCH ×4 (02:02→19:56)
[2022-07-15] MEDS: LIPASE/PROTEASE/AMYLASE 1 EACH CAPSULE.DR GT SCH ×3 (04:54→21:43)
[2022-07-15 06:06] LABS: BASOPHILS % (AUTO) 0.1 % (0.0-2.0); HEMATOCRIT 32 % (39-51); HEMOGLOBIN 10.3 g/dL (13.5-17.5); LYMPHOCYTES # (AUTO) 0.7 K/uL (0.8-4.8); LYMPHOCYTES % (AUTO) 8.7 % (20.0-44.0); MEAN CORPUSCULAR HGB CONC 32 g/dl (31.0-36.0); MEAN CORPUSCULAR VOLUME 80 fL (80-96); MONOCYTES # (AUTO) 0.5 K/uL (0.1-1.30); MONOCYTES % (AUTO) 6.6 % (2.0-12.0); NEUTROPHILS # (AUTO) 6.6 K/uL (1.8-8.9); NEUTROPHILS % (AUTO) 84.6 % (43.0-81.0); PLATELET COUNT (AUTO) 616 K/uL (150-450); RED BLOOD CELL COUNT(AUTO) 3.99 MIL/uL (4.5-6.0); WHITE BLOOD COUNT (AUTO) 7.8 K/uL (4.3-11.0)
--- NOTE | 2022-07-15 06:33 | NUR ---
RN OPENING NOTE; PATIENT IN BED WITH EYES CLOSED BUT EASY TO AROUSED,NON VERBAL,ON TRACH AEROSOL 5L O2 SUPPLEMENT,SHILEY #8, CUFFED, F102 28%.KAILEE WELL,NO SOB/DISTRESS NOTED.NO SIGN FOR PAIN/DISCOMFORT DURING SHIFT,DUE MEDS GIVEN ORDER,ALL NEEDS ATTENDED. DUENAS CATHETER NOTED DRAINING CLEAR YELLOW COLORED URINE OUTPUT 600ML.. NOTED PATIENT CONTRACTED.IV ACCESS HALLIE PICC LINE, INTACT AND PATENT,SAFETY PRECAUTIONS IN PLACE. BED LOCKED AND IN LOWEST POSITION, SIDE RAILS UP X2. CALL LIGHT IN EASY REACH. WILL ENDORSED TO NEXT SHIFT.
--- NOTE | 2022-07-15 07:30 | NUR ---
RN OPENING NOTE; RECEIVED PATIENT IN BED WITH OPEN EYES,NON VERBAL,ON TRACH AEROSOL 5L O2 SUPPLEMENT,SHILEY #8, CUFFED, F102 28%.NO SOB/DISTRESS NOTED. DUENAS CATHETER NOTED DRAINING CLEAR YELLOW COLORED URINE . NOTED PATIENT CONTRACTED.IV ACCESS HALLIE PICC LINE, INTACT PATENT,SAFETY PRECAUTIONS IN PLACE. BED LOCKED AND IN LOWEST POSITION, SIDE RAILS UP X2. CALL LIGHT IN EASY REACH. WILL CONTINUE TO MONITOR.
[2022-07-15 08:15] LABS: CALCIUM, SERUM 7.7 mg/dL (8.5-10.1); CREATININE 0.7 mg/dL (0.6-1.3); POTASSIUM 4.6 mmol/L (3.5-5.1)
--- NOTE | 2022-07-15 08:21 | NUR ---
WOUND CARE CONSULT: PT PRESENTS WITH SACRAL SCARRING AND DISCOLORATION, RASH TO GROIN FOLDS AND LEFT LATERAL KNEE SCAR, ALL PRESENT ON ADMISSION. ABDOMINAL SURGICAL DRESSING IS DRY AND INTACT. RECOMMENDATIONS MADE FOR SKIN PROTECTION. DISCUSSED WITH NURSING STAFF. PT IS ON FIRST STEP JESUS GARAY MD IN AGREEMENT WITH PLAN OF CARE.
[2022-07-15] MEDS: ACIDOPHILUS/BULGARICUS 1 EACH TAB.CHEW GT SCH ×2 (09:37→18:43)
[2022-07-15] MEDS: ASPIRIN 81 MG TAB.CHEW GT SCH (09:38)
[2022-07-15] MEDS: FERROUS SULFATE (325 MG) 325 MG/TAB TABLET GT SCH (09:38)
[2022-07-15] MEDS: ZINC SULFATE 220 MG CAPSULE GT SCH (09:38)
[2022-07-15] MEDS: ASCORBIC ACID 500 MG TABLET GT SCH (09:38)
[2022-07-15] MEDS: CHOLESTYRAMINE/ASPARTAME 4 G/PKT PACKET GT SCH (09:38)
[2022-07-15] MEDS: CLOTRIMAZOLE 1% 15 GM TUBE TP SCH ×2 (09:41→18:44)
[2022-07-15] MEDS: VITAMINS A AND D 56.7 GM TUBE TP SCH ×2 (09:41→21:44)
[2022-07-15] MEDS: ENOXAPARIN SODIUM 40 MG/0.4 ML DISP.SYRIN SQ SCH (09:45)
[2022-07-15] MEDS: PROSOURCE / PROSTAT (PYXIS) 30 ML UDC GT SCH ×2 (09:57→17:00)
[2022-07-15 10:01] VITALS: BP 146/69
[2022-07-15] MEDS: VITAL AF 1.2 1,000 ML BOTTLE GT SCH (13:07)
[2022-07-15 17:51] VITALS: BP 175/93
--- NOTE | 2022-07-15 19:30 | NUR ---
RN OPENING NOTE; PATIENT IN BED WITH OPEN EYES,NON VERBAL,ON TRACH AEROSOL 5L O2 SUPPLEMENT,SHILEY #8, CUFFED, F102 28%.NO SOB/DISTRESS NOTED. ALL DUE MEDS GIVEN ORDERED. DUENAS CATHETER NOTED DRAINING CLEAR YELLOW COLORED URINE . NOTED PATIENT CONTRACTED.IV ACCESS HALLIE PICC LINE, INTACT RUNNING NS AT 75 ML/HR.ALL DUE MEDS GIVEN ORDERED. ALL PATENT,SAFETY PRECAUTIONS IN PLACE. BED LOCKED AND IN LOWEST POSITION, SIDE RAILS UP X2. HEAD OF THE BED ELEVATED FOR ASPIRATION PRECAUTION.CALL LIGHT IN EASY REACH. WILL ENDORSE FOR DENG.
--- NOTE | 2022-07-15 19:36 | NUR ---
RN OPENING NOTE RECEIVED PATIENT IN BED WITH EYES CLOSED BUT EASY TO AROUSED,NON VERBAL,ON TRACH AEROSOL SHILEY #8, CUFFED, F102 28%.KAILEE WELL,NO SOB/DISTRESS NOTED.NO SIGN FOR PAIN/DISCOMFORT AT THIS TIME. DUENAS CATHETER NOTED DRAINING CLEAR YELLOW COLORED URINE DRAINING VIA GRAVITY. NOTED PATIENT CONTRACTED.GTUBE FEEDING JEVITY 1.2 @70ML/HR KAILEE WELL NO RESIDUAL NOTED,HOB ELEVATED AT ALL TIMES. WITH IV ACCESS HALLIE PICC LINE, INTACT AND PATENT,SAFETY PRECAUTIONS IN PLACE. BED LOCKED AND IN LOWEST POSITION, SIDE RAILS UP X2. CALL LIGHT IN EASY REACH. WILL CONTINUE TO MONITOR.
[2022-07-15 20:00] VITALS: BP 107/64
[2022-07-15] MEDS: ATORVASTATIN 40 MG TABLET GT SCH (21:30)
[2022-07-15] MEDS: TAMSULOSIN 0.4 MG CAP.SR.24H GT SCH (21:30)
[2022-07-16] MEDS: BLOOD SUGAR DIAGNOSTIC 1 EACH STRIP IN SCH ×5 (00:15→11:43)
[2022-07-16] MEDS: ALBUTEROL FS 2.5 MG/0.5 ML VIAL.NEB NEB SCH ×3 (02:30→14:20)
[2022-07-16] MEDS: LIPASE/PROTEASE/AMYLASE 1 EACH CAPSULE.DR GT SCH ×2 (04:47→14:48)
[2022-07-16] MEDS: INSULIN REGULAR, HUMAN 100 UNIT/ML 3 ML VIAL SQ PRN (05:25)
--- NOTE | 2022-07-16 06:27 | NUR ---
RN OPENING NOTE; PATIENT IN BED WITH EYES CLOSED BUT EASY TO AROUSED,NON VERBAL,ON TRACH AEROSOL 5L O2 SUPPLEMENT,SHILEY #8, CUFFED, F102 28%.KAILEE WELL,NO SOB/DISTRESS NOTED.NO SIGN FOR PAIN/DISCOMFORT DURING SHIFT,GTUBE FEEDING JEVITY 1.2@70ML/HR.NO RESIDUAL DURING SHIFT,HOB ELEVATED AT ALL TIMES,DUE MEDS GIVEN ORDER,ALL NEEDS ATTENDED. DUENAS CATHETER NOTED DRAINING CLEAR YELLOW COLORED URINE OUTPUT 300ML. NOTED PATIENT CONTRACTED.IV ACCESS HALLIE PICC LINE, INTACT AND PATENT,SAFETY PRECAUTIONS IN PLACE. BED LOCKED AND IN LOWEST POSITION, SIDE RAILS UP X2. CALL LIGHT IN EASY REACH. WILL ENDORSED TO NEXT SHIFT.
--- NOTE | 2022-07-16 07:44 | NUR ---
RN OPENING NOTE; RECEIVED PATIENT AWAKE IN BED WITH OPEN EYES,NON VERBAL,ON TRACH AEROSOL 5L O2 SUPPLEMENT,SHILEY #8, CUFFED, F102 28%.NO SOB/DISTRESS NOTED. DUENAS CATHETER NOTED DRAINING CLEAR YELLOW COLORED URINE . NOTED PATIENT CONTRACTED.IV ACCESS HALLIE PICC LINE, INTACT RUNNING NS AT 75 ML/HR. ALL PATENT,SAFETY PRECAUTIONS IN PLACE. BED LOCKED AND IN LOWEST POSITION, SIDE RAILS UP X2. HEAD OF THE BED ELEVATED FOR ASPIRATION PRECAUTION.CALL LIGHT IN EASY REACH. WILL CONTINUE TO MONITOR.
[2022-07-16] MEDS: ACIDOPHILUS/BULGARICUS 1 EACH TAB.CHEW GT SCH ×2 (08:25→16:04)
[2022-07-16] MEDS: ZINC SULFATE 220 MG CAPSULE GT SCH (08:25)
[2022-07-16] MEDS: ASPIRIN 81 MG TAB.CHEW GT SCH (08:25)
[2022-07-16] MEDS: CHOLESTYRAMINE/ASPARTAME 4 G/PKT PACKET GT SCH (08:25)
[2022-07-16] MEDS: ASCORBIC ACID 500 MG TABLET GT SCH (08:25)
[2022-07-16] MEDS: FERROUS SULFATE (325 MG) 325 MG/TAB TABLET GT SCH (08:25)
[2022-07-16] MEDS: VITAMINS A AND D 56.7 GM TUBE TP SCH (08:28)
[2022-07-16] MEDS: CLOTRIMAZOLE 1% 15 GM TUBE TP SCH ×2 (08:28→16:05)
[2022-07-16] MEDS: ENOXAPARIN SODIUM 40 MG/0.4 ML DISP.SYRIN SQ SCH (08:28)
[2022-07-16] MEDS: PROSOURCE / PROSTAT (PYXIS) 30 ML UDC GT SCH ×2 (08:31→16:04)
[2022-07-16] MEDS ORDERED: NUT.237L65 GT ×2 (10:28→18:56)
[2022-07-16] MEDS: VITAL AF 1.2 1,000 ML BOTTLE GT SCH (11:31)
--- NOTE | 2022-07-16 16:30 | NUR ---
RN NOTES CALLED SUBACUTE OF EVA LOPEZ GAVE REPORT FOR THE PATIENT TO RYLEE AT 1620.
--- NOTE | 2022-07-16 16:40 | NUR ---
RN NOTES TRANSFERRED THE PATIENT WITH RT TO [facility], AT 1640 SPOKE WITH RYLEE. ALL THE REPORTS GIVEN IN PERSON ALSO.
[2022-07-16] MEDS ORDERED: CHOL4PAC9 GT (18:56)
[2022-07-16] MEDS ORDERED: MAGN400O6 GT (18:56)
[2022-07-16] MEDS ORDERED: MAG30ORA GT (18:56)
== END 2022-07-16 17:09 | DRG 329 ==
LOC: TELE 23:11 → MED 07-13 03:35
PROVIDERS: ADMIT Nurse Practitioner Acute Care; ATTEND Internal Medicine
PROC: 0DH63UZ Insertion of Feeding Device into Stomach, Percutaneous Approach (ICD-10-PCS; principal; 2022-07-14)
PROC: 0DQE4ZZ Repair Large Intestine, Percutaneous Endoscopic Approach (ICD-10-PCS; 2022-07-14)
DX: K94.23 Gastrostomy malfunction (principal); E43 Unspecified severe protein-calorie malnutrition; G93.41 Metabolic encephalopathy; J96.21 Acute and chronic respiratory failure with hypoxia; D68.59 Other primary thrombophilia; Z99.11 Dependence on respirator [ventilator] status; R64 Cachexia; Z68.1 Body mass index [BMI] 19.9 or less, adult; Z86.16 Personal history of COVID-19; D63.8 Anemia in other chronic diseases classified elsewhere; E11.649 Type 2 diabetes mellitus with hypoglycemia without coma; E78.5 Hyperlipidemia, unspecified; E87.6 Hypokalemia; F03.90 Unspecified dementia, unspecified severity, without behavioral disturbance, psychotic disturbance, mood disturbance, and anxiety; I10 Essential (primary) hypertension; R13.10 Dysphagia, unspecified; M62.50 Muscle wasting and atrophy, not elsewhere classified, unspecified site; Z74.09 Other reduced mobility; N40.0 Benign prostatic hyperplasia without lower urinary tract symptoms; Z74.01 Bed confinement status; Z93.0 Tracheostomy status; Y84.8 Other medical procedures as the cause of abnormal reaction of the patient, or of later complication, without mention of misadventure at the time of the procedure; Y73.8 Miscellaneous gastroenterology and urology devices associated with adverse incidents, not elsewhere classified; Y92.129 Unspecified place in nursing home as the place of occurrence of the external cause
CPT/HCPCS: 31720; 36415; 71045-TC; 74018; 74160-TC; 80048-TC; 81001; 82962-TC; 83735-TC; 84100-TC; 84132-TC; 85025-TC; 85610-TC; 85730-TC; 86850-TC; 87081-TC; 87086-TC; 87186-TC; 94640-TC; 94760-TC; 94799-TC; A4623; G0378; J0330; J0690; J1100; J1650; J1815; J2704; J3010; J3475; J3480; J3490; J7030; J7050; Q9963; Q9967

== ENCOUNTER 2023-01-13 11:32 | Inpatient (IN) | payer MEDICARE, OTHER ==
[2023-01-13] VITALS (34 sets, daily range): BP systolic 75–129; BP diastolic 42–97
[~2023-01-13] VITALS: Ht 170.2 cm; Wt 52.2 kg
[~2023-01-13 11:32] MED LIST changes: -ALLA266C2 TP; -BENEFIBER GT; +CHOL4PAC9 GT; -DEXT50DI8 IV; -HYDR100V6 IV; -HYDR1SOL TP; +LOPE2TAB25 GT; +MAG30ORA GT; +MAGN400O6 GT; -MELA3TAB41 GT; -MERO500V23 IV; -ONDA4TAB11 GT; -PANT40SU2 GT; -POLY17PO4 GT; -POTA20PA3 GT; -[UNRECOGNIZED DRUG - CODE] IV
--- NOTE | 2023-01-13 11:32 | NUR ---
CHAVO FROM [facility] FOR O2 DESATURATION 82% ON SCENE. PLACED IN BED, AWAKE NOT RESPONDING TO VERBAL STIMULI, ON O2 15LIT VIA NON REBREATHING MASK SATURATING AT 96%, UPPER AND LOWER EXTREMITIES CONTRACTED, WITH G-TUBE INSITU.
--- NOTE | 2023-01-13 11:32 | NUR ---
Efren mahoney in [facility] - 01/13/23 at 1355 by SHIRA ALLIE Ruiz C/C SEPSIS.
--- NOTE | 2023-01-13 11:46 | NUR ---
COVID SWAB OBTAINED
--- NOTE | 2023-01-13 11:54 | NUR ---
BLOOD SAMPLES OBTAINED
--- NOTE | 2023-01-13 12:14 | NUR ---
MOVE SHEET SUBMITTED.
[2023-01-13 12:21] LABS: BASOPHILS % (AUTO) 0.3 % (0.0-2.0); HEMATOCRIT 40 % (39-51); HEMOGLOBIN 12.9 g/dL (13.5-17.5); LYMPHOCYTES # (AUTO) 0.8 K/uL (0.8-4.8); LYMPHOCYTES % (AUTO) 8.7 % (20.0-44.0); MEAN CORPUSCULAR HGB CONC 32 g/dl (31.0-36.0); MEAN CORPUSCULAR VOLUME 82 fL (80-96); MONOCYTES # (AUTO) 0.4 K/uL (0.1-1.30); MONOCYTES % (AUTO) 4.7 % (2.0-12.0); NEUTROPHILS # (AUTO) 8.1 K/uL (1.8-8.9); NEUTROPHILS % (AUTO) 86.3 % (43.0-81.0); PLATELET COUNT (AUTO) 316 K/uL (150-450); WHITE BLOOD COUNT (AUTO) 9.4 K/uL (4.3-11.0)
[2023-01-13] MEDS ORDERED: AZITHROMYCIN 500 MG in IV D5W 250 ML IV ONE (12:30)
[2023-01-13] MEDS ORDERED: CEFTRIAXONE 1GM BAG (ER ONLY) 50 ML IV ONE (12:30)
[2023-01-13 12:37] LABS: BILIRUBIN,URINE NEGATIVE (NEGATIVE); COLOR,URINE YELLOW (YELLOW); LEUKOCYTE ESTERASE ,URINE NEGATIVE (NEGATIVE); NITRITE, URINE NEGATIVE (NEGATIVE); PROTEIN,URINE 1+ mg/dl (NEGATIVE); UGLUCOSE 2+ mg/dL (NEGATIVE)
[2023-01-13 12:51] LABS: CALCIUM, SERUM 9.2 mg/dL (8.5-10.1); CARBON DIOXIDE 31 mmol/L (21-32); CHLORIDE 96 mmol/L (98-107); CREATININE 1.3 mg/dL (0.6-1.3); POTASSIUM 4.3 mmol/L (3.5-5.1); SODIUM SERUM 135 mmol/L (136-145); UREA NITROGEN, BLOOD 54 mg/dL (7-18)
[2023-01-13 13:01] LABS: BACTERIA,URINE Many /HPF (None Seen); RBC,URINE 0-2 /HPF (0-2); SQUAMOUS EPITHELIAL CELL,UR Rare /HPF (None Seen); WBC,URINE 0-2 /HPF (0-3)
[2023-01-13 13:05] LABS: GLUCOSE 351 mg/dL (74-106)
--- NOTE | 2023-01-13 13:11 | NUR ---
GOT ICU BED 259 ADMITTING INFORMED.
[2023-01-13 13:59] LABS: ALANINE AMINOTRANSFERASE 34 U/L (12-78); ALBUMIN 3.3 g/dL (3.4-5.0); ALKALINE PHOSPHATASE 111 U/L (46-116); ASPARTATE AMINOTRANSFERASE 16 U/L (15-37); BILIRUBIN,DIRECT 0.3 mg/dL (0.0-0.2); BILIRUBIN,TOTAL 0.8 mg/dL (0.2-1.0); TOTAL PROTEIN, SERUM 7.6 g/dL (6.4-8.2)
[2023-01-13] MEDS ORDERED: ONDANSETRON HCL/PF 4 MG/2 ML VIAL IVP PRN (14:00)
[2023-01-13] MEDS ORDERED: IPRATROPIUM NEB FS 0.5 MG/2.5 ML AMPUL.NEB NEB PRN (14:00)
[2023-01-13] MEDS ORDERED: DEXTROSE 50%-WATER 50 ML DISP.SYRIN IV PRN (14:00)
[2023-01-13] MEDS ORDERED: Z GUARD REMEDY 4 OZ OINT TP PRN (14:00)
[2023-01-13] MEDS ORDERED: HYDROCODONE/APAP 5/325MG TABLET GT PRN (14:00)
[2023-01-13] MEDS ORDERED: ZOLPIDEM TARTRATE 5 MG TABLET PO PRN (14:00)
[2023-01-13] MEDS ORDERED: CEFEPIME 1 GM in IV D5W 50 ML IV SCH (14:00)
[2023-01-13] MEDS ORDERED: MORPHINE SULFATE INJ 2 MG/ML DISP.SYRIN IV PRN (14:00)
[2023-01-13] MEDS ORDERED: ALBUTEROL FS 2.5 MG/3 ML VIAL.NEB NEB PRN (14:00)
--- NOTE | 2023-01-13 14:10 | NUR ---
PATIENT TRANSFERED AND ADMITTED TO ICU REPORT GIVEN TO KOFI MONET FOR DENG
--- NOTE | 2023-01-13 14:17 | NUR ---
FOUND PATIENT IN ROOM 259. NO REPORT FROM ER NURSE RECEIVED. REPORT RECEIVED FROM FLEXOGRAPHIC PRINTING PRESS OPERATOR KOFI. PATIENT ON HI FLOW NASAL CANULA, OXYGEN SATURATION AT 95%. SINUS RHYTHM ON THE MONITOR AT THIS TIME. GASTRIC TUBE CLAMPED. IV ACCESS ON RIGHT UPPER ARM 18 GAUGE AND LEFT FOREARM 18 GAUGE. PATIENT CLEANED ONE BOWEL MOVEMENT. DUENAS CATHETER INSERTED DRAINING CLEAR YELLOW OUTPUT. SKIN ALTERATIONS DOCUMENTED IN PHYSICAL CHART, DRESSINGS CHANGED. SAFETY MEASURES IMPLEMENTED. WILL CONTINUE PLAN OF CARE AND ANTICIPATE NEEDS.
[2023-01-13] MEDS: IV NS 0.9% 1,000 ML IV PRN (15:18)
[2023-01-13] MEDS: CEFEPIME 2 GM in IV D5W 100 ML IV SCH (15:21)
[2023-01-13] MEDS: ENOXAPARIN SODIUM 40 MG/0.4 ML DISP.SYRIN SQ SCH (15:21)
[2023-01-13] MEDS: PANTOPRAZOLE 40 MG VIAL IV SCH (15:22)
[2023-01-13] MEDS: ACETAMINOPHEN 650 MG/20.3 ML UDC GT PRN ×2 (15:23→23:37)
--- NOTE | 2023-01-13 15:24 | NUR ---
PRN TYLENOL ADMINISTERED FOR TEMPERATURE 101.6 DEGREES FAHRENHEIT. WISAMUEL RECHECK TEMPERATURE IN ONE HOUR.
[2023-01-13] MEDS: NOREPINEPHRINE 8 MG in IV NS 0.9% 242 ML IV PRN (16:17)
--- NOTE | 2023-01-13 16:30 | NUR ---
TEMPERATURE ON RECHECK 100.8. THERMOSTAT TURNED TO COOLEST SETTING, ICE PACKS APPLIED. PATIENT REMAINS UNCOVERED WITH BLANKET. WILL REASSESS TEMPERATURE IN ONE HOUR.
[2023-01-13] MEDS: GLUCERNA 1.2 1,000 ML BOTTLE NG PRN (17:23)
[2023-01-13] MEDS: BLOOD SUGAR DIAGNOSTIC 1 EACH STRIP IN SCH ×2 (17:24→23:24)
[2023-01-13] MEDS: PROSOURCE / PROSTAT (PYXIS) 30 ML UDC GT SCH (17:24)
--- NOTE | 2023-01-13 17:30 | NUR ---
TEMPERATURE ON RECHECK 98.8 DEGREES FAHRENHEIT
[2023-01-13] MEDS: INSULIN REGULAR, HUMAN 100 UNIT/ML 3 ML VIAL SQ PRN ×2 (17:42→23:33)
--- NOTE | 2023-01-13 19:09 | NUR ---
HAND OFF REPORT GIVEN TO PRINCESS MONET FOR CONTINUATION OF CARE.
--- NOTE | 2023-01-13 20:22 | NUR ---
CAR CHANGER OPENING NOTE PT RECEIVED IN BED A/O X0, OPENS EYES, NON-VERBAL. PT ON HIGH-FLOW NASAL CANNULA AT 40L/MIN WITH 60% FIO2; CURRENT O2SAT OF 93%; NOTED TO HAVE PRODUCTIVE COUGH; NO OTHER S/S OF RESP DISTRESS, NO SOB, NON-LABORED AND EQUAL BREATHING. PT ATTACHED TO BEDSIDE MONITOR, SR WITH HR OF 86. DUENAS INTACT AND PATENT, DRAINING CLEAR AND YELLOW URINE. GTD C/D/I WITH GLUCERNA AT 70 ML/HR; NO RESIDUALS NOTED. IV ACCESS ON HALLIE AND LFA 18G, INTACT AND PATENT, NS INFUSING AT 75 ML/HR AND LEVO AT 0.09 MCG/KG/MIN. BED IN LOWEST POSITION, CALL LIGHT WITHIN REACH, SIDE RAILS UP X3. WILL CONTINUE TO MONITOR THROUGHOUT THE NIGHT.
[2023-01-13] MEDS: Z GUARD REMEDY 4 OZ OINT TP SCH (21:08)
--- NOTE | 2023-01-13 23:43 | NUR ---
RN NOTE PT NOTED TO HAVE TEMPERATURE OF 100.6. PT ADMINISTERED TYLENOL 500 MG[address] COOLING MEASURES IN PLACE. WILL MONITOR FOR EFFECTIVENESS.
[2023-01-14] VITALS (97 sets, daily range): BP systolic 69–160; BP diastolic 28–126
--- NOTE | 2023-01-14 01:45 | NUR ---
RT NOTE PT TITRATED TO FIO2 50% ON HIGH FLOW NASAL CANNULA. PT TOLERATING WELL. CHIKI ROMAN NOTIFIED AND IS AWARE.
[2023-01-14] MEDS: CEFEPIME 2 GM in IV D5W 100 ML IV SCH ×2 (02:14→14:00)
[2023-01-14] MEDS: IV NS 0.9% 1,000 ML IV PRN ×2 (02:33→18:43)
[2023-01-14 03:50] LABS: BASOPHILS # (AUTO) 0.1 K/uL (0.0-0.2); BASOPHILS % (AUTO) 0.5 % (0.0-2.0); EOSINOPHILS % (AUTO) 0.4 % (0.0-6.0); HEMATOCRIT 32 % (39-51); HEMOGLOBIN 10.3 g/dL (13.5-17.5); LYMPHOCYTES % (AUTO) 7.9 % (20.0-44.0); MEAN CORPUSCULAR HGB CONC 32 g/dl (31.0-36.0); MEAN CORPUSCULAR VOLUME 82 fL (80-96); MONOCYTES # (AUTO) 0.9 K/uL (0.1-1.30); MONOCYTES % (AUTO) 6.8 % (2.0-12.0); NEUTROPHILS # (AUTO) 10.8 K/uL (1.8-8.9); NEUTROPHILS % (AUTO) 84.4 % (43.0-81.0); PLATELET COUNT (AUTO) 309 K/uL (150-450); RED BLOOD CELL COUNT(AUTO) 3.94 MIL/uL (4.5-6.0); WHITE BLOOD COUNT (AUTO) 12.8 K/uL (4.3-11.0)
--- NOTE | 2023-01-14 03:54 | NUR ---
RT NOTE PT PLACED ON NASAL CANNULA @ 5 LPM AT THIS TIME WITH HUMIDIFIER. PT TOLERATING WELL. CHIKI ROMAN NOTIFIED. WILL CONTINUE TO MONITOR. HIGH FLOW NASAL CANNULA STANDBY.
[2023-01-14 04:10] LABS: CALCIUM, SERUM 8.5 mg/dL (8.5-10.1); CARBON DIOXIDE 33 mmol/L (21-32); CHLORIDE 99 mmol/L (98-107); GLUCOSE 225 mg/dL (74-106); MAGNESIUM 2.1 mg/dL (1.8-2.4); PHOSPHORUS 2.3 mg/dL (2.5-4.9); POTASSIUM 3.6 mmol/L (3.5-5.1); SODIUM SERUM 135 mmol/L (136-145); UREA NITROGEN, BLOOD 47 mg/dL (7-18)
[2023-01-14 04:18] LABS: THYROID STIMULATING HORMONE 1.845 uIU/mL (0.358-3.74)
[2023-01-14] MEDS: BLOOD SUGAR DIAGNOSTIC 1 EACH STRIP IN SCH ×4 (05:35→23:24)
[2023-01-14] MEDS: INSULIN REGULAR, HUMAN 100 UNIT/ML 3 ML VIAL SQ PRN ×3 (05:40→23:24)
--- NOTE | 2023-01-14 06:22 | NUR ---
MANAGER SECURITY CLOSING NOTE PT REMAINS IN BED, ASLEEP, OPENS EYES; MAKES MUMBLING SOUNDS, POSSIBLY SPEAKING IN ANOTHER LANGUAGE. PT TRANSITIONED FROM HIGH-FLOW TO NASAL CANNULA 5L WITH O2SAT RANGING FROM 91%-100%; CONTINUES TO HAVE COUGH; NO OTHER S/S OF RESP DISTRESS, NO SOB, NON-LABORED AND EQUAL BREATHING; TOLERATING NASAL CANNULA WELL. ATTACHED TO BEDSIDE MONITOR, SR WITH HR RANGING FROM 66-92. DUENAS INTACT AND PATENT, DRAINING CLEAR AND YELLOW URINE. GLUCERNA RUNNING AT 70 ML/HR; TOLERATING WELL WITH NO RESIDUALS. IV ACCESS ON HALLIE 18G INTACT AND PATENT; LEVO AT 0.07 MCG/KG/MIN, AND NS AT 75 ML/HR. ALL DUE MEDS ADMINISTERED DURING THE NIGHT. BED IN LOWEST POSITION, CALL LIGHT WITHIN REACH, SIDE RAILS UP X3. [facility]. Addendum: 01/14/23 at 0649 by PRINCESS EATON RN LAST O2 NASAL CANNULA TITRATED FROM 5L TO 2L
--- NOTE | 2023-01-14 07:19 | NUR ---
REPORT RECEIVED FROM OPEN DEVELOPER OPERATOR . PATIENT ON NASAL CANULA AT 2 LITERS, OXYGEN SATURATION AT 98%. SINUS RHYTHM ON THE MONITOR AT THIS TIME. GASTRIC TUBE INFUSING GLUCERNA ORDERED. IV ACCESS ON RIGHT UPPER ARM 18 GAUGE AND LEFT FOREARM 18 GAUGE AWAITING MIDLINE PLACEMENT THIS MORNING. DUENAS CATHETER DRAINING CLEAR YELLOW OUTPUT. SKIN ALTERATIONS DOCUMENTED IN PHYSICAL CHART. SAFETY MEASURES IMPLEMENTED. WILL CONTINUE PLAN OF CARE AND ANTICIPATE NEEDS.
[2023-01-14] MEDS: ENOXAPARIN SODIUM 40 MG/0.4 ML DISP.SYRIN SQ SCH (08:48)
[2023-01-14] MEDS: PANTOPRAZOLE 40 MG VIAL IV SCH (08:48)
[2023-01-14] MEDS: Z GUARD REMEDY 4 OZ OINT TP SCH ×2 (08:49→21:49)
[2023-01-14] MEDS: ACETAMINOPHEN 650 MG/20.3 ML UDC GT PRN ×3 (08:50→23:38)
--- NOTE | 2023-01-14 08:50 | NUR ---
PRN TYLENOL ADMINISTERED FOR TEMPERATURE OF 100.2 DEGREES FAHRENHEIT. BLANKETS REMOVED, THERMOSTAT ADJUSTED TO COOLEST TEMPERATURE. WILL REASSESS TEMPERATURE IN ONE HOUR
[2023-01-14] MEDS: PROSOURCE / PROSTAT (PYXIS) 30 ML UDC GT SCH ×2 (08:51→17:27)
--- NOTE | 2023-01-14 09:08 | NUR ---
WOUND CARE CONSULT: PT PRESENTS VERY THIN AND BONY WITH RT HIP INTACT DEEP TISSUE INJURY, LEFT HIP DISCOLORATION WI5TH SCARRING, SACRAL SCARRING AND FOOT WOUNDS, ALL PRESENT ON ADMISSION. DR JONES AND DR REARDON CALLED FOR SURGICAL AND DPM CONSULTS. DISCUSSED SKIN PROTECTION WITH NURSING STAFF. HENRIQUE TRAN NOTED. PT IS ON FIRST STEP [facility]. IN AGREEMENT WITH PLAN OF CARE. Addendum: 01/14/23 at 0910 by SUSANA BARKER WNDNU Amended: Links added.
[2023-01-14] MEDS ORDERED: ONDA4TAB11 GT (09:17)
[2023-01-14] MEDS ORDERED: SENN-261 GT (09:17)
[2023-01-14] MEDS ORDERED: PANT40SU2 GT (09:17)
[2023-01-14] MEDS ORDERED: ZINC56.713 TP (09:17)
[2023-01-14] MEDS ORDERED: HYDR1SOL TD (09:17)
[2023-01-14] MEDS ORDERED: IPRA3AMP23 IH (09:17)
[2023-01-14] MEDS ORDERED: ACET650S26 GT ×3 (09:17)
[2023-01-14] MEDS ORDERED: POLY17PO4 GT ×2 (09:17)
[2023-01-14] MEDS ORDERED: FERR300L GT (09:17)
[2023-01-14] MEDS ORDERED: MULT9LIQ6 GT (09:17)
[2023-01-14] MEDS ORDERED: INSU100V7 SQ (09:17)
[2023-01-14] MEDS ORDERED: MELA3TAB41 GT (09:17)
[2023-01-14] MEDS ORDERED: DOCU-141 GT (09:17)
[2023-01-14] MEDS ORDERED: DEXT50DI8 IV (09:17)
[2023-01-14] MEDS ORDERED: NUT.237L30 GT (09:17)
--- NOTE | 2023-01-14 09:50 | NUR ---
temperature on recheck 98.7 degrees Fahrenheit
[2023-01-14] MEDS ORDERED: NEUTRA PHOS 1 POWD.PACKET GT ONE (11:00)
--- NOTE | 2023-01-14 15:39 | NUR ---
PRN TYLENOL ADMINISTERED FOR TEMPERATURE OF 101.2 DEGREES FAHRENHEIT. BLANKETS REMOVED. WILL REASSESS TEMPERATURE IN ONE HOUR
[2023-01-14] MEDS: NOREPINEPHRINE 8 MG in IV NS 0.9% 242 ML IV PRN (15:51)
--- NOTE | 2023-01-14 16:39 | NUR ---
TEMPERATURE ON RECHECK 100.4 DEGREES FAHRENHEIT. PATIENT BATHED IN COOL WATER. ICE PACKS APPLIED TO AXILLARIE AND TOP OF HEAD. WILL REASSESS TEMP IN ONE HOUR.
[2023-01-14] MEDS: GLUCERNA 1.2 1,000 ML BOTTLE NG PRN (17:28)
--- NOTE | 2023-01-14 17:39 | NUR ---
TEMPERATURE ON RECHECK 98 DEGREES FAHRENHEIT
--- NOTE | 2023-01-14 18:57 | NUR ---
HAND OFF REPORT GIVEN TO PRINCESS MONET FOR CONTINUATION OF CARE.
--- NOTE | 2023-01-14 19:06 | NUR ---
HAND OFF REPORT GIVEN TO NIGHTSRIFT REGISTRY NURSE FOR CONTINUATION OF CARE. Addendum: 01/14/23 at 1907 by RYLEE ACUNA RN DISREGARD ABOVE NOTE; CHARTED ON WRONG PATIENT.
--- NOTE | 2023-01-14 20:14 | NUR ---
POWER NUT RUNNER OPERATOR OPENING NOTE PT RECEIVED IN BED, AWAKE, ALERT, NON-VERBAL. PT ON ROOM AIR WITH CURRENT O2SAT 94%; NO S/S OF RESP DISTRESS, NO SOB, NON-LABORED AND EQUAL BREATHING; NOTED TO HAVE COUGH. PT ATTACHED TO BEDSIDE MONITOR, SR WITH HR OF 83. DUENAS INTACT AND PATENT, DRAINING YELLOW AND CLEAR URINE. GT GLUCERNA AT 75 ML/HR; TOLERATING WELL WITH NO RESIDUALS NOTED. ZONIA MIDLINE AND HALLIE 18G INTACT AND PATENT, NS INFUSING AT 75 ML/HR. BED IN LOWEST POSITION, CALL LIGHT WITHIN REACH, SIDE RAILS UP X3. WILL CONTINUE TO MONITOR THROUGHOUT THE NIGHT. Addendum: 01/14/23 at 2040 by PRINCESS EATON RN GLUCERNA AT 70 ML/HR
[2023-01-14 21:35] LABS: ABG BASE EXCESS 1.5 mmol/L; ABG PCO2 31.1 mmHg (35.0-45.0); ABG PH 7.504 (7.350-7.450); ABG PO2 62.3 mmHg (75.0-100.0); COHb 0.2 % (0.5-1.5); MetHb 0.4 % (0.0-1.5); O2Hb 91.6 % (94.0-97.0); SITE, ABG Right Radial; VENT MODE, BG 15 LPM NRB
--- NOTE | 2023-01-14 23:38 | NUR ---
RN NOTE PT NOTED TO HAVE TEMPERATURE OF 100.8. PT ADMINISTERED TYLENOL 500 MG, COOLING MEASURES IN PLACE. WILL MONITOR FOR EFFECTIVENESS.
[2023-01-15] VITALS (22 sets, daily range): BP systolic 93–163; BP diastolic 44–97
[2023-01-15] MEDS: CEFEPIME 2 GM in IV D5W 100 ML IV SCH ×2 (02:18→15:20)
[2023-01-15 04:48] LABS: BASOPHILS % (AUTO) 0.4 % (0.0-2.0); EOSINOPHILS % (AUTO) 1.1 % (0.0-6.0); HEMATOCRIT 31 % (39-51); HEMOGLOBIN 10.1 g/dL (13.5-17.5); LYMPHOCYTES # (AUTO) 0.7 K/uL (0.8-4.8); MEAN CORPUSCULAR HGB CONC 33 g/dl (31.0-36.0); MEAN CORPUSCULAR VOLUME 82 fL (80-96); MONOCYTES # (AUTO) 0.8 K/uL (0.1-1.30); MONOCYTES % (AUTO) 7.8 % (2.0-12.0); NEUTROPHILS # (AUTO) 8.7 K/uL (1.8-8.9); NEUTROPHILS % (AUTO) 83.7 % (43.0-81.0); PLATELET COUNT (AUTO) 281 K/uL (150-450); RED BLOOD CELL COUNT(AUTO) 3.76 MIL/uL (4.5-6.0); WHITE BLOOD COUNT (AUTO) 10.4 K/uL (4.3-11.0)
[2023-01-15] MEDS: ACETAMINOPHEN 650 MG/20.3 ML UDC GT PRN ×2 (05:08→20:35)
--- NOTE | 2023-01-15 05:08 | NUR ---
RN NOTE PT NOTED WITH TEMPERATURE OF 99.9. PT ADMINISTERED TYLENOL 500 MG; COOLING MEASURES IN PLACE. WILL MONITOR FOR EFFECTIVENESS.
[2023-01-15] MEDS: INSULIN REGULAR, HUMAN 100 UNIT/ML 3 ML VIAL SQ PRN ×4 (05:26→23:59)
[2023-01-15] MEDS: BLOOD SUGAR DIAGNOSTIC 1 EACH STRIP IN SCH ×4 (05:27→23:57)
[2023-01-15 05:57] LABS: CALCIUM, SERUM 8.5 mg/dL (8.5-10.1); CARBON DIOXIDE 28 mmol/L (21-32); CHLORIDE 103 mmol/L (98-107); CREATININE 0.8 mg/dL (0.6-1.3); GLUCOSE 192 mg/dL (74-106); POTASSIUM 3.7 mmol/L (3.5-5.1); SODIUM SERUM 139 mmol/L (136-145); UREA NITROGEN, BLOOD 35 mg/dL (7-18)
[2023-01-15 05:58] LABS: MAGNESIUM 2.1 mg/dL (1.8-2.4); PHOSPHORUS 2.6 mg/dL (2.5-4.9)
[2023-01-15] MEDS: IV NS 0.9% 1,000 ML IV PRN ×2 (06:24→17:42)
--- NOTE | 2023-01-15 06:39 | NUR ---
CORE ANALYSIS OPERATOR CLOSING NOTE PT REMAINS IN BED, AWAKE. CONTINUES TO BE ON RA WITH O2SAT RANGING FROM 93%-99%; NO S/S OF RESP DISTRESS, NO SOB, NON-LABORED AND EQUAL BREATHING; APPEARS COMFORTABLE OVERALL. TEMPERATURE MANAGED WITH COOLING MEASURES AND TYLENOL. ATTACHED TO BEDSIDE MONITOR, SR WITH HR RANGING FROM 67-84. DUENAS INTACT AND PATENT, DRAINING CLEAR AND YELLOW URINE. TOLERATING GTF WELL WITH NO RESIDUALS THROUGHOUT THE NIGHT; GLUCERNA RUNNING AT 70 ML/HR. ZONIA MIDLINE AND HALLIE 18G INTACT AND PATENT, NS INFUSING AT 75 ML/HR. ALL DUE MEDS ADMINISTERED DURING THE NIGHT. BED IN LOWEST POSITION, CALL LIGHT WITHIN REACH, SIDE RAILS UP X3. WILL ENDORSE TO DAYSHIFT NURSE TO CONTINUE CARE.
--- NOTE | 2023-01-15 07:10 | NUR ---
REPORT RECEIVED FROM PAINT MAKER . PATIENT ON ROOM AIR, OXYGEN SATURATION AT 98%. SINUS RHYTHM ON THE MONITOR AT THIS TIME. GASTRIC TUBE INFUSING GLUCERNA ORDERED. IV ACCESS ON RIGHT UPPER ARM 18 GAUGE AND LEFT UPPER ARM MIDLINE 18 GAUGE. DUENAS CATHETER DRAINING CLEAR YELLOW OUTPUT. SKIN ALTERATIONS DOCUMENTED IN PHYSICAL CHART. SAFETY MEASURES IMPLEMENTED. WILL CONTINUE PLAN OF CARE AND ANTICIPATE NEEDS.
[2023-01-15] MEDS: PROSOURCE / PROSTAT (PYXIS) 30 ML UDC GT SCH ×2 (08:53→17:37)
[2023-01-15] MEDS: ENOXAPARIN SODIUM 40 MG/0.4 ML DISP.SYRIN SQ SCH (08:53)
[2023-01-15] MEDS: PANTOPRAZOLE 40 MG/PACK PACK GT SCH (08:53)
[2023-01-15] MEDS: Z GUARD REMEDY 4 OZ OINT TP SCH ×2 (08:54→20:35)
--- NOTE | 2023-01-15 12:20 | NUR ---
PATIENT TRANSFERRED TO MI BED 155-2. HAND OFF REPORT GIVEN TO ABRAHAM MONET FOR CONTINUATION OF CARE
--- NOTE | 2023-01-15 12:25 | NUR ---
RN NOTE RECEIVED PATIENT ADMITTED TO ROOM 115-2 IN STABLE CONDITION. WILL RESUME DENG
[2023-01-15] MEDS: GLUCERNA 1.2 1,000 ML BOTTLE NG PRN (17:37)
--- NOTE | 2023-01-15 18:44 | NUR ---
RN CLOSING NOTE PT REMAINS IN BED, AWAKE. CONTINUES TO BE ON RA WITH O2SAT RANGING FROM 96%-99%; NO S/S OF RESP DISTRESS, NO SOB, NON-LABORED AND EQUAL BREATHING; APPEARS COMFORTABLE OVERALL. DUENAS INTACT AND PATENT, DRAINING CLEAR AND YELLOW URINE. TOLERATING GTF WELL ; GLUCERNA RUNNING AT 70 ML/HR. ZONIA MIDLINE AND HALLIE 18G INTACT AND PATENT, NS INFUSING AT 75 ML/HR. ALL DUE MEDS ADMINISTERED .BED IN LOWEST POSITION, CALL LIGHT WITHIN REACH, SIDE RAILS UP X3. WILL ENDORSE TONIGHT NURSE TO CONTINUE CARE.
--- NOTE | 2023-01-15 19:30 | NUR ---
RN NOTE RECEIVED PT IN BED, EYES OPEN, NONVERBAL. PT ON ROOM AIR, WELL TOLERATED, NO SOB, NO ACUTE RESPIRATORY DISTRESS NOTED. PT ATTACHED TO EXTERNAL CENTRAL OFFICE EQUIPMENT ENGINEER, READING SR AT THIS TIME. IV ACCESS ON HALLIE #18G, CLEAN DRY AND INTACT, FLUSHES WELL, ON SL. PT ALSO HAS ZONIA ML CURRENTLY INFUSING NS AT 75ML/HR, WELL KAILEE, NO S/SX OF COMPLICATION NOTED. GT IN PLACED, PATENT AND SECURED, CURRENTLY RUNNING GLUCERNA AT 70ML/HR ORDERED, WELL KAILEE. NO RESIDUAL. HOB ELEVATED. SAFETY AND ASPIRATION PRECAUTION IMPLEMENTED AT ALL TIMES WILL CONT POC.
[2023-01-15] MEDS: MUPIROCIN OINT 2% 22 GM TUBE NS SCH (20:35)
[2023-01-16] VITALS: BP 104/58
[2023-01-16] MEDS: CEFEPIME 2 GM in IV D5W 100 ML IV SCH ×2 (03:21→15:17)
[2023-01-16 04:00] VITALS: BP 126/66
[2023-01-16 05:48] LABS: BASOPHILS # (AUTO) 0.1 K/uL (0.0-0.2); BASOPHILS % (AUTO) 0.7 % (0.0-2.0); EOSINOPHILS % (AUTO) 3.5 % (0.0-6.0); HEMATOCRIT 30 % (39-51); HEMOGLOBIN 9.6 g/dL (13.5-17.5); LYMPHOCYTES # (AUTO) 0.7 K/uL (0.8-4.8); MEAN CORPUSCULAR HGB CONC 33 g/dl (31.0-36.0); MEAN CORPUSCULAR VOLUME 82 fL (80-96); MONOCYTES # (AUTO) 0.9 K/uL (0.1-1.30); MONOCYTES % (AUTO) 11.2 % (2.0-12.0); NEUTROPHILS # (AUTO) 5.9 K/uL (1.8-8.9); NEUTROPHILS % (AUTO) 75.6 % (43.0-81.0); PLATELET COUNT (AUTO) 289 K/uL (150-450); RED BLOOD CELL COUNT(AUTO) 3.59 MIL/uL (4.5-6.0); WHITE BLOOD COUNT (AUTO) 7.8 K/uL (4.3-11.0)
[2023-01-16] MEDS: BLOOD SUGAR DIAGNOSTIC 1 EACH STRIP IN SCH ×4 (06:15→23:17)
[2023-01-16 06:17] LABS: CALCIUM, SERUM 8.4 mg/dL (8.5-10.1); CARBON DIOXIDE 28 mmol/L (21-32); CHLORIDE 101 mmol/L (98-107); CREATININE 0.8 mg/dL (0.6-1.3); GLUCOSE 170 mg/dL (74-106); SODIUM SERUM 134 mmol/L (136-145); UREA NITROGEN, BLOOD 25 mg/dL (7-18)
[2023-01-16] MEDS: INSULIN REGULAR, HUMAN 100 UNIT/ML 3 ML VIAL SQ PRN ×3 (06:17→23:16)
--- NOTE | 2023-01-16 06:30 | NUR ---
RN NOTES PT REMAINS IN STABLE CONDITION. NO SIGNIFICANT CHANGES NOTED. ALL DUE MEDICATIONS GIVEN ORDERED. ALL NEEDS ANTICIPATED. FC IN PLACED, PATENT AND SECURED, DRAINING CLEAR YELLOW URINE BY GRAVITY. KEPT PT CLEAN, DRY AND COMFORTABLE AT ALL TIMES. WILL ENDORSE TO AM SHIFT NURSE FOR DENG.
[2023-01-16] MEDS: IV NS 0.9% 1,000 ML IV PRN ×2 (07:00→21:57)
--- NOTE | 2023-01-16 07:30 | NUR ---
ENVIRONMENTAL STUDIES PROFESSOR AM NOTE RECEIVED PT IN BED, EYES OPEN, NONVERBAL. PT ON ROOM AIR, O2 SAT 95%, NO SOB, NO ACUTE RESPIRATORY DISTRESS NOTED. SR HR 68 MONITOR, NO SIGNS OF PAIN/DISCOMFORT AT THIS TIME. ZONIA #18G MIDLINE, CLEAN DRY AND INTACT, FLUSHES WELL, WITH NS AT 75 ML/HR INFUSING WELL. SITE CLEAR. SEE NURSING FLOWSHEET. GTF GLUCERNA 70 ML/HR ONGOING. O RESIDUAL AND CHECKED FOR PLACEMENT EARLIER. OFF 1300 ON 1999. WELL TOLERATED. HOB ELEVATED. SAFETY AND ASPIRATION PRECAUTION IMPLEMENTED AT ALL TIMES WILL CONT POC.
[2023-01-16 08:00] VITALS: BP 156/45
[2023-01-16] MEDS: PANTOPRAZOLE 40 MG/PACK PACK GT SCH (09:25)
[2023-01-16] MEDS: PROSOURCE / PROSTAT (PYXIS) 30 ML UDC GT SCH ×2 (09:27→16:12)
[2023-01-16] MEDS: ENOXAPARIN SODIUM 40 MG/0.4 ML DISP.SYRIN SQ SCH (09:28)
[2023-01-16] MEDS: Z GUARD REMEDY 4 OZ OINT TP SCH ×2 (09:28→20:32)
[2023-01-16] MEDS: MUPIROCIN OINT 2% 22 GM TUBE NS SCH ×2 (09:29→20:32)
--- NOTE | 2023-01-16 09:30 | NUR ---
RN NOTES DUE MEDS GIVEN
[2023-01-16 12:00] VITALS: BP 104/59
--- NOTE | 2023-01-16 13:12 | NUR ---
RN NOTES REPORT GIVEN TO VALENTIN ROBERT FOR DENG
--- NOTE | 2023-01-16 13:20 | NUR ---
RECEIVED REPORT FROM KEERTHI MONET FOR DENG.
[2023-01-16 16:00] VITALS: BP 108/60
--- NOTE | 2023-01-16 18:09 | NUR ---
COVID TEST DONE, SENT TO THE LAB.
--- NOTE | 2023-01-16 18:10 | NUR ---
SOURCING CONSULTANT CLOSING NOTE RECEIVED PT IN BED, EYES OPEN, NONVERBAL. PT ON ROOM AIR, O2 SAT 98%, NO SOB, NO ACUTE RESPIRATORY DISTRESS NOTED. SR HR 73, NO SIGNS OF PAIN/DISCOMFORT AT THIS TIME. ZONIA #18G MIDLINE, CLEAN DRY AND INTACT, FLUSHES WELL, WITH NS AT 75 ML/HR INFUSING WELL. SITE CLEAR. GT PATENT AND INTACT,CHECK PLACEMENT. ON GTF GLUCERNA 70 ML/HR ONGOING, NO RESIDUAL. TOLERATING WELL, NO N/V/D NOTED. HOB ELEVATED. FC PATENT AND INTACT NOTED WITH CLEAR YELLOW URINE DRAINAGE VIA GRAVITY. SAFETY AND ASPIRATION PRECAUTION IMPLEMENTED AT ALL TIMES. CALL LIGHT WITHIN REACH. WILL ENDORSE TO NIGHT NURSE FOR DENG.
[2023-01-16 20:00] VITALS: BP 103/56
--- NOTE | 2023-01-16 20:00 | NUR ---
UNIT COORDINATOR CLOSING NOTE RECEIVED PT IN BED, EYES OPEN, NONVERBAL.V/S STABLE /AFEBRILE ON ROOM AIR, O2 SAT 97%, NO SOB, NO DISTRESS NOTED. ON TELE MONITOR SR HR 75, ZONIA #18G MIDLINE, PATENT /INTACT, WITH NS AT 75 ML/HR INFUSING WELL. GT ON GTF GLUCERNA 70 ML/HR INFUSING NO RESIDUAL. TOLERATING WELL, NO N/V/D NOTED. HOB ELEVATED. FC PATENT AND INTACT NOTED WITH CLEAR YELLOW URINE DRAINAGE VIA GRAVITY. SAFETY AND ASPIRATION PRECAUTION IMPLEMENTED AT ALL TIMES. CALL LIGHT WITHIN REACH. WILL CONTINUE TO MONITOR PTS. Addendum: 01/17/23 at 0656 by FRANKO GRAY RN THIS IS THE OPENING NOTE NOT CLOSING NOTE.
[2023-01-16] MEDS: LINEZOLID 600 MG TABLET PO SCH (20:35)
[2023-01-16] MEDS ORDERED: MUPIROCIN OINT 2% 22 GM TUBE NS SCH (21:00)
--- NOTE | 2023-01-16 23:19 | NUR ---
telehealth coordinator notes Blood sugar for 12mn is 176mg/dl 3units of regular insulin given per sliding scale pts on gt feeding
[2023-01-17] VITALS: BP 114/69
[2023-01-17] MEDS: CEFEPIME 2 GM in IV D5W 100 ML IV SCH ×2 (03:08→15:03)
[2023-01-17 04:00] VITALS: BP 120/65
[2023-01-17] MEDS: INSULIN REGULAR, HUMAN 100 UNIT/ML 3 ML VIAL SQ PRN ×4 (06:32→23:38)
[2023-01-17] MEDS: GLUCERNA 1.2 1,000 ML BOTTLE NG PRN (06:34)
[2023-01-17] MEDS: BLOOD SUGAR DIAGNOSTIC 1 EACH STRIP IN SCH ×4 (06:35→23:36)
--- NOTE | 2023-01-17 06:48 | NUR ---
telemarketing supervisor notes Blood sugar for 12mn is 181mg/dl 3units of regular insulin given per sliding scale pts on gt feeding
--- NOTE | 2023-01-17 06:56 | NUR ---
TELE 5RN NOTES PTS REMAIN IN BED ON GT FEEDING WELL TOLERATED , R/A SATING 95% NO SOB NO DISTRESS NOTED WILL ENDORSE TO RN DAY SHIFT FOR CONTINUITY OF CARE.
[2023-01-17 07:09] LABS: BASOPHILS # (AUTO) 0.1 K/uL (0.0-0.2); BASOPHILS % (AUTO) 0.8 % (0.0-2.0); EOSINOPHILS % (AUTO) 7.6 % (0.0-6.0); HEMATOCRIT 29 % (39-51); HEMOGLOBIN 9.6 g/dL (13.5-17.5); MEAN CORPUSCULAR HGB CONC 33 g/dl (31.0-36.0); MEAN CORPUSCULAR VOLUME 82 fL (80-96); MONOCYTES # (AUTO) 0.9 K/uL (0.1-1.30); MONOCYTES % (AUTO) 12.1 % (2.0-12.0); NEUTROPHILS # (AUTO) 5.1 K/uL (1.8-8.9); NEUTROPHILS % (AUTO) 66.5 % (43.0-81.0); PLATELET COUNT (AUTO) 300 K/uL (150-450); RED BLOOD CELL COUNT(AUTO) 3.57 MIL/uL (4.5-6.0); WHITE BLOOD COUNT (AUTO) 7.6 K/uL (4.3-11.0)
--- NOTE | 2023-01-17 07:42 | NUR ---
ACTUARIAL MATHEMATICIAN OPENING NOTE RECEIVED PT IN BED, EYES OPEN, NONVERBAL. PT ON ROOM AIR, O2 SAT ABOVE 92%, NO SOB, NO ACUTE RESPIRATORY DISTRESS NOTED. NO SIGNS OF PAIN OR DISCOMFORT NOTED AT THIS TIME. SR HR 73 ON TELE MONITOR, NO SIGNS OF PAIN/DISCOMFORT AT THIS TIME. ZONIA #18G MIDLINE, CLEAN DRY AND INTACT, FLUSHES WELL, WITH NS AT 75 ML/HR INFUSING WELL. GTF GLUCERNA 70 ML/HR. NO RESIDUAL VOLUME NOTED. HOB ELEVATED AT ALL TIMES. PT IS CONTRACTED UPPER AND LOWER EXTREMITIES. ALL SAFETY MEASURES IN PLACE. CALL LIGHT WITHIN REACH.BED LOCKED AT LOWEST POSITION. SIDE RAILS UP X3. BED ALARM ON
[2023-01-17 08:00] VITALS: BP 126/69
[2023-01-17 08:06] LABS: CALCIUM, SERUM 8.3 mg/dL (8.5-10.1); CREATININE 0.7 mg/dL (0.6-1.3); POTASSIUM 3.7 mmol/L (3.5-5.1)
[2023-01-17] MEDS: PANTOPRAZOLE 40 MG/PACK PACK GT SCH (09:14)
[2023-01-17] MEDS: LINEZOLID 600 MG TABLET PO SCH ×2 (09:14→20:33)
[2023-01-17] MEDS: ENOXAPARIN SODIUM 40 MG/0.4 ML DISP.SYRIN SQ SCH (09:15)
[2023-01-17] MEDS: Z GUARD REMEDY 4 OZ OINT TP SCH ×2 (09:16→20:34)
[2023-01-17] MEDS: PROSOURCE / PROSTAT (PYXIS) 30 ML UDC GT SCH ×2 (09:18→18:31)
[2023-01-17] MEDS: MUPIROCIN OINT 2% 22 GM TUBE NS SCH ×2 (09:27→20:32)
[2023-01-17 12:00] VITALS: BP 115/57
[2023-01-17] MEDS: IV NS 0.9% 1,000 ML IV PRN (12:14)
--- NOTE | 2023-01-17 13:30 | NUR ---
RN NOTE GAVE REPORT TO MARISOL AT [facility] [phone]
[2023-01-17 16:00] VITALS: BP 120/65
--- NOTE | 2023-01-17 17:56 | NUR ---
MIXER DRIVER NOTE PT LEFT IN STABLE CONDITION. REMOVED 1 MIDLINE KEPT ANOTHER ONE DUE TO PT RECEIVING IV ANTIBOTICS FOR TOTAL OF 14 DAYS PER MD. REMOVED TELE MONITOR BOX.PICKED UP BY AMBULANCE TEAM. NOTIFIED OF DISCHARGE.ALL BELONGINGS WITH PT. Addendum: 01/17/23 at 1816 by DEANGELO RODGERS RN DISREGARD THIS DISCHARGE NOTE
--- NOTE | 2023-01-17 18:16 | NUR ---
RN NOTE NOTIFIED DR. COOPER THAT UPON TRANSPORTATION.PT DESATURATED TO 87% UPON AMBULANCE PICKUP. PER AMBULANCE PT COUGHING UP PHLEGM AND AMBULANCE PUT ON 2l AND SATURATING 96%, ON ROOM AIR 95%. AND IF OKAY TO DISCHARGE DR. COOPER SAID TO HOLD DISCHARGE TILL TOMORROW AND ORDERED CHEST XRAY. VITAL SIGNS STABLE
--- NOTE | 2023-01-17 18:20 | NUR ---
RN NOTE NOTIFIED FACILITY OF DISCHARGE BEING HELD. [facility]. ATTEMPTED TO CALL PT 2 TIMES TO MAKE AWARE, NO ANSWER AT THIS TIME.
--- NOTE | 2023-01-17 19:14 | NUR ---
FINAL INSPECTOR BALANCE WHEEL CLOSING NOTE PT IN BED, EYES OPEN, NONVERBAL. PT ON ROOM AIR, O2 SAT ABOVE 92% TOLERATING ON NASAL CANNULA. NO PAIN OR DISCOMFORT NOTED AT THIS TIME. ON TELE MONITOR, HALLIE #18G MIDLINE, CLEAN DRY AND INTACT, FLUSHES WELL, WITH NS AT 75 ML/HR INFUSING WELL. GTF GLUCERNA 70 ML/HR. NO RESIDUAL VOLUME NOTED. HOB ELEVATED AT ALL TIMES. PT IS CONTRACTED UPPER AND LOWER EXTREMITIES. ALL SAFETY MEASURES IN PLACE. CALL LIGHT WITHIN REACH.BED LOCKED AT LOWEST POSITION. SIDE RAILS UP X3. BED ALARM ON.ENDOSED TO REPAIRER TYPEWRITER RN FOR CONUTITY OF CARE AND TO NOTIFY PT OF DISCHARGE BEING HELD AT THIS TIME, AWARE
--- NOTE | 2023-01-17 19:30 | NUR ---
TELE1 RN NOTES RECEIVED LAYING ON BED ON LEFT SIDE POSITION,A/O X1,NON VERBAL.WITH GT FEEDING OF GLUCERNA AT 70ML/HR RATE X20 HOURS,OFF AT 1300,ON AT 1700.PRESENT IVF NS AT 75ML/HR RATE INFUSING ON RIGHT LEFT ARM MIDLINE,DUENAS CATH IN PLACE DRAINS YELLOWISH OUTPUT.WILL REPOSITION Q 2 HOURS PER PROTOCOL.CALL LIGHT IN REACH.WILL CONTINUE TO MONITOR STATUS.
[2023-01-17 20:00] VITALS: BP 140/76
--- NOTE | 2023-01-17 23:35 | NUR ---
CANVAS WORKER APPRENTICE NOTES ACCU-CHECK BLOOD SUGAR CHECK 149MG/DL,COVERED WITH HUMULIN R 2UNITS PER SLIDING SCALE.
[2023-01-18] VITALS: BP 117/65
[2023-01-18] MEDS: CEFEPIME 2 GM in IV D5W 100 ML IV SCH (02:32)
[2023-01-18 04:00] VITALS: BP 136/80
[2023-01-18 04:44] LABS: BAND % (MANUAL) 1 % (0.0-5.0); EOSINOPHILS % (MANUAL) 8 % (0-4); NEUTROPHILS % (MANUAL) 67 (42-76)
[2023-01-18 04:46] LABS: LYMPHOCYTES % (MANUAL) 10 % (16-48)
[2023-01-18 04:47] LABS: MONOCYTES % (MANUAL) 14 % (0-11.0)
[2023-01-18] MEDS: BLOOD SUGAR DIAGNOSTIC 1 EACH STRIP IN SCH ×2 (05:16→11:58)
[2023-01-18] MEDS: INSULIN REGULAR, HUMAN 100 UNIT/ML 3 ML VIAL SQ PRN ×2 (05:18→12:00)
[2023-01-18] MEDS: IV NS 0.9% 1,000 ML IV PRN (05:25)
--- NOTE | 2023-01-18 06:21 | NUR ---
CRANE MANAGER NOTES FAIRLY RESTED AT NIGHT.GT FEEDING TOLERATED WELL.O2 SAT WNL ON 3L/NC.REPOSITION PER PROTOCOL.WILL ENDORSE TO DAY NURSE FOR DENG.
--- NOTE | 2023-01-18 07:17 | NUR ---
NIGHT MONITOR opening NOTE received PT IN BED lying on right side., EYES OPEN, NONVERBAL. PT ON ROOM AIR, O2 SAT ABOVE 92% TOLERATING ON NASAL CANNULA. NO PAIN OR DISCOMFORT NOTED AT THIS TIME. ON TELE MONITOR, HALLIE #18G MIDLINE, CLEAN DRY AND INTACT, FLUSHES WELL, WITH NS AT 75 ML/HR INFUSING WELL. GTF GLUCERNA 70 ML/HR. NO RESIDUAL VOLUME NOTED. HOB ELEVATED AT ALL TIMES. PT IS CONTRACTED UPPER AND LOWER EXTREMITIES. ALL SAFETY MEASURES IN PLACE. CALL LIGHT WITHIN REACH.BED LOCKED AT LOWEST POSITION. SIDE RAILS UP X3. BED ALARM ON
[2023-01-18] MEDS: PANTOPRAZOLE 40 MG/PACK PACK GT SCH (08:34)
[2023-01-18] MEDS: LINEZOLID 600 MG TABLET PO SCH (08:34)
[2023-01-18] MEDS: PROSOURCE / PROSTAT (PYXIS) 30 ML UDC GT SCH (08:34)
[2023-01-18] MEDS: ENOXAPARIN SODIUM 40 MG/0.4 ML DISP.SYRIN SQ SCH (08:35)
[2023-01-18] MEDS: Z GUARD REMEDY 4 OZ OINT TP SCH (08:36)
[2023-01-18 09:00] VITALS: BP 107/58
[2023-01-18] MEDS: MUPIROCIN OINT 2% 22 GM TUBE NS SCH (09:53)
[2023-01-18 12:00] VITALS: BP_SYST 104; BP_SYST 59; BP_DIAS 58; BP_DIAS 59
--- NOTE | 2023-01-18 12:49 | NUR ---
ff. up cxr result still pending,left message to 9DIAMOND [phone].nursing sup made aware delay on report. notified.
[2023-01-18] MEDS ORDERED: CEFEPIME 2 GM in IV D5W 100 ML IV SCH (13:00)
--- NOTE | 2023-01-18 13:57 | NUR ---
rn note gave updated report to MC at [facility]
[2023-01-18 16:00] VITALS: BP 114/57
[2023-01-18] MEDS: ACETAMINOPHEN 650 MG/20.3 ML UDC GT PRN (16:43)
--- NOTE | 2023-01-18 17:27 | NUR ---
shift supervisor rn note pt left in stable condition. went over discharge instructions with ambulance team.ambulance team verbalized understanding. kept midline due to iv antibotics for a total of 14 days. left by ambulance team. vital signs stable.removed tele monitor box
--- NOTE | 2023-01-18 17:31 | NUR ---
rn note attempted to notify pt of discharge. not answering at this time.
== END 2023-01-18 17:09 | DRG 871 ==
LOC: ER 11:38 → ICU 13:25 → TELE-TD 01-15 12:09 → TELE1 01-15 14:45
PROVIDERS: ADMIT Nurse Practitioner Acute Care
PROC: 05HC33Z Insertion of Infusion Device into Left Basilic Vein, Percutaneous Approach (ICD-10-PCS; principal; 2023-01-14)
DX: A41.9 Sepsis, unspecified organism (principal); E43 Unspecified severe protein-calorie malnutrition; J96.01 Acute respiratory failure with hypoxia; J69.0 Pneumonitis due to inhalation of food and vomit; N17.0 Acute kidney failure with tubular necrosis; R65.21 Severe sepsis with septic shock; R53.2 Functional quadriplegia; G92.8 Other toxic encephalopathy; F02.83 Dementia in other diseases classified elsewhere, unspecified severity, with mood disturbance; F02.82 Dementia in other diseases classified elsewhere, unspecified severity, with psychotic disturbance; E87.1 Hypo-osmolality and hyponatremia; R64 Cachexia; Z68.1 Body mass index [BMI] 19.9 or less, adult; Z20.822 Contact with and (suspected) exposure to COVID-19; E78.5 Hyperlipidemia, unspecified; G30.9 Alzheimer's disease, unspecified; F09 Unspecified mental disorder due to known physiological condition; M24.561 Contracture, right knee; M24.562 Contracture, left knee; Z74.01 Bed confinement status; Z93.1 Gastrostomy status; Z93.0 Tracheostomy status; R13.10 Dysphagia, unspecified; Z79.82 Long term (current) use of aspirin; Z79.01 Long term (current) use of anticoagulants; Z79.51 Long term (current) use of inhaled steroids; Z79.4 Long term (current) use of insulin; Z79.899 Other long term (current) drug therapy; E11.36 Type 2 diabetes mellitus with diabetic cataract; Y95 Nosocomial condition; K21.9 Gastro-esophageal reflux disease without esophagitis; I10 Essential (primary) hypertension; E86.1 Hypovolemia; E11.65 Type 2 diabetes mellitus with hyperglycemia; Z86.16 Personal history of COVID-19; L89.896 Pressure-induced deep tissue damage of other site; L89.216 Pressure-induced deep tissue damage of right hip; N40.0 Benign prostatic hyperplasia without lower urinary tract symptoms; E88.09 Other disorders of plasma-protein metabolism, not elsewhere classified; E86.0 Dehydration; E83.39 Other disorders of phosphorus metabolism; B95.2 Enterococcus as the cause of diseases classified elsewhere
CPT/HCPCS: 36415; 36600; 71045-TC; 80048-TC; 80076-TC; 81001; 82803-TC; 82962-TC; 83605-TC; 83735-TC; 83880; 84100-TC; 84443-TC; 84484-TC; 85025-TC; 85730-TC; 87040-TC; 87081-TC; 87086-TC; 93307-TC; 94799-TC; A4223; C9113; G0378; J0456; J0692; J0696; J1650; J1815; J7030; J7050; J7060

== ENCOUNTER 2023-03-28 02:03 | Inpatient (IN) | payer MEDICARE, OTHER ==
[~2023-03-28] VITALS: Ht 170.2 cm; Wt 48.1 kg
[~2023-03-28 02:03] MED LIST changes: -ACET325T53 GT; +ACET650S26 GT; -ALBU2.5V13 IH; -CHOL4PAC9 GT; +DEXT50DI8 IV; +DOCU-141 GT; +FERR300L GT; -FERR325T24 GT; +HYDR1SOL TD; +INSU100V7 SQ; +IPRA3AMP23 IH; +MELA3TAB41 GT; +MULT9LIQ6 GT; +NUT.237L30 GT; -NUT.237L65 GT; +ONDA4TAB11 GT; +PANT40SU2 GT; -PETR113O TP; +POLY17PO4 GT; +SENN-261 GT; +ZINC56.713 TP
--- NOTE | 2023-03-28 02:19 | NUR ---
KIMO FROM [facility] C/O SOB. DX WITH PNEUMONIA
--- NOTE | 2023-03-28 02:23 | NUR ---
22G IV STARTED ON R THUMB
--- NOTE | 2023-03-28 02:24 | NUR ---
BLOOD COLLECTED SENT TO LAB
--- NOTE | 2023-03-28 02:29 | NUR ---
COVID ANTIGEN COLLECTED SENT TO LAB
[2023-03-28 02:34] LABS: BASOPHILS # (AUTO) 0.1 K/uL (0.0-0.2); BASOPHILS % (AUTO) 0.3 % (0.0-2.0); HEMATOCRIT 32 % (39-51); HEMOGLOBIN 10.3 g/dL (13.5-17.5); LYMPHOCYTES % (AUTO) 4.7 % (20.0-44.0); MEAN CORPUSCULAR HGB CONC 32 g/dl (31.0-36.0); MEAN CORPUSCULAR VOLUME 78 fL (80-96); MONOCYTES % (AUTO) 4.7 % (2.0-12.0); NEUTROPHILS # (AUTO) 18.9 K/uL (1.8-8.9); NEUTROPHILS % (AUTO) 88.3 % (43.0-81.0); PLATELET COUNT (AUTO) 691 K/uL (150-450); RED BLOOD CELL COUNT(AUTO) 4.14 MIL/uL (4.5-6.0); WHITE BLOOD COUNT (AUTO) 21.4 K/uL (4.3-11.0)
[2023-03-28] MEDS ORDERED: PIPERACI/TAZO 3.375GM/D5W 50ML PB IV ONE (02:39)
[2023-03-28 02:48] LABS: CALCIUM, SERUM 9.6 mg/dL (8.5-10.1); CARBON DIOXIDE 27 mmol/L (21-32); CHLORIDE 94 mmol/L (98-107); CREATININE 0.7 mg/dL (0.6-1.3); GLUCOSE 164 mg/dL (74-106); SODIUM SERUM 132 mmol/L (136-145); UREA NITROGEN, BLOOD 24 mg/dL (7-18)
[2023-03-28] MEDS ORDERED: VANCOMYCIN 1 GM /D5W 250 ML PB IV ONE (02:59)
[2023-03-28 03:00] LABS: ALANINE AMINOTRANSFERASE 28 U/L (12-78); ALBUMIN 2.9 g/dL (3.4-5.0); ALKALINE PHOSPHATASE 101 U/L (46-116); ASPARTATE AMINOTRANSFERASE 52 U/L (15-37); BILIRUBIN,TOTAL 0.4 mg/dL (0.2-1.0); TOTAL PROTEIN, SERUM 8.5 g/dL (6.4-8.2)
[2023-03-28] MEDS ORDERED: PIPERACILLIN /TAZOBACTAM 3.375 G in IV D5W 50 ML IV ONE (03:00)
[2023-03-28] MEDS ORDERED: ACETAMINOPHEN 650 MG/SUPP.RECT RC ONE (03:00)
[2023-03-28] MEDS ORDERED: VANCOMYCIN 1 GM in IV D5W 250 ML IV ONE (03:00)
[2023-03-28] MEDS ORDERED: AZITHROMYCIN 500 MG in IV D5W 250 ML IV ONE (03:00)
--- NOTE | 2023-03-28 03:38 | NUR ---
ABG DRAWN BY RT
[2023-03-28] MEDS ORDERED: AZITHROMYCIN 500 MG VIAL ONE (03:42)
[2023-03-28 03:44] LABS: ABG BASE EXCESS 4.6 mmol/L; ABG OXYGEN SATURATION 93.6 % (92.0-98.5); ABG PCO2 32.6 mmHg (35.0-45.0); ABG PH 7.537 (7.350-7.450); AaDO2 182.7 mmHg; COHb 0.3 % (0.5-1.5); MetHb 0.2 % (0.0-1.5); O2Hb 93.1 % (94.0-97.0); SITE, ABG Right Radial; VENT MODE, BG nasal cannula
--- NOTE | 2023-03-28 04:32 | NUR ---
EPIC PAGED WAITING FOR CALL BACK
--- NOTE | 2023-03-28 04:37 | NUR ---
DR FRANCISCO WATTS ON PHONE CALL WITH LISET OMALLEY
[2023-03-28] MEDS ORDERED: SODIUM POLYSTYRENE SULFONATE 15 G/60 ML BOTTLE ONE (04:57)
[2023-03-28] MEDS ORDERED: SODIUM BICARBONATE SYR 50 MEQ/50 ML DISP.SYRIN ONE (04:58)
[2023-03-28] MEDS ORDERED: SODIUM BICARBONATE SYR 50 MEQ/50 ML DISP.SYRIN IV ONE (05:00)
[2023-03-28] MEDS ORDERED: Z GUARD REMEDY 4 OZ OINT TP PRN (05:00)
[2023-03-28] MEDS ORDERED: ONDANSETRON HCL/PF 4 MG/2 ML VIAL IVP PRN (05:00)
[2023-03-28] MEDS ORDERED: ACETAMINOPHEN 325 MG TABLET PO PRN (05:00)
[2023-03-28] MEDS ORDERED: INSULIN REGULAR, HUMAN 100 UNIT/ML 3 ML VIAL IV ONE (05:00)
[2023-03-28] MEDS ORDERED: ZOLPIDEM TARTRATE 5 MG TABLET PO PRN (05:00)
[2023-03-28] MEDS ORDERED: DEXTROSE 50%-WATER 50 ML DISP.SYRIN IVP ONE (05:00)
[2023-03-28] MEDS ORDERED: MAG HYDROX/AL HYDROX/SIMETH 30 ML UDC PO PRN (05:00)
[2023-03-28] MEDS ORDERED: MAGNESIUM HYDROXIDE 30 ML UDC PO PRN (05:00)
[2023-03-28] MEDS ORDERED: SODIUM POLYSTYRENE SULFONATE 15 G/60 ML BOTTLE RC ONE (05:00)
--- NOTE | 2023-03-28 05:10 | NUR ---
RN NOTES ADMITTED A 72 Y/O MALE PATIENT WITH DX OF SEPSIS. ON OXYGEN INHALATION AT 2LPM SATING 96% NO SOB NOT ON RESPIRATORY DISTRESS BREATHIN EVEN AND UNLABORED. VITAL SIGNS TAKEN AND RECORDED AFEBRILE. SAFELY TRANSFER TO BED. COMPLETE BODY ASSESSMENT DONE. PICTURE TAKEN AND FILED AT THE CHART. ALL MSAFETY MEASURES IN PLACE HOB ELEVATED. WILL CLOSELY MONITOR THE PATIENT
--- NOTE | 2023-03-28 05:15 | NUR ---
Report given to Quintin MONET, greg ready to move to IM floor.
--- NOTE | 2023-03-28 06:10 | NUR ---
RN NOTES INFORMED DR. HUTCHINS IF WE STILL NEED TO GIVE THE REGULAR INSULIN 7 UNITS IV AND [address] HUTCHINS OKAYED. FOR REPEAT LAB IN AM.
[2023-03-28] MEDS: BLOOD SUGAR DIAGNOSTIC 1 EACH STRIP IN SCH ×3 (06:31→17:44)
--- NOTE | 2023-03-28 06:51 | NUR ---
RN NOTES. PATIENT REMAINS STABLE NO SIGNIFICANT CHANGES WEILL ENDORSED TO MORNING SHIFT FOR DENG
--- NOTE | 2023-03-28 07:44 | NUR ---
MAIL ORDER SORTER OPENING NOTE RECEIVED PT ASLEEP, NONVERBAL, EASILY AROUSABLE. ON TELE MONITOR AT SR 93. NO SIGNS OF PAIN OR DISCOMFORT AT THIS TIME. PT HAS RIGHT THUMB 22 GUAGE. PENDING MIDLINE INSERTION. ALL SAFETY MEASURES IN PLACE. CALL LIGHT WITHIN REACH, BED LOCKED IN LOWEST POSITION. SIDE RAILS UP X2. BED ALARM ON
[2023-03-28] MEDS: PANTOPRAZOLE 40 MG VIAL IV SCH (08:59)
[2023-03-28] MEDS ORDERED: PROSOURCE / PROSTAT (PYXIS) 30 ML UDC GT SCH (09:00)
[2023-03-28] MEDS ORDERED: ZOLPIDEM TARTRATE 5 MG TABLET GT PRN (09:20)
[2023-03-28] MEDS ORDERED: MAG HYDROX/AL HYDROX/SIMETH 30 ML UDC GT PRN (09:21)
[2023-03-28] MEDS ORDERED: MAGNESIUM HYDROXIDE 30 ML UDC GT PRN (09:21)
--- NOTE | 2023-03-28 10:22 | NUR ---
WOUND CARE CONSULT: PT PRESENTS WITH MULTIPLE SKIN ISSUES AND WOUNDS INCLUDING SACRAL SCAR, LEFT HIP INTACT DEEP TISSUE INJURY, FOOT WOUNDS, INNER THIGH DISCOLORATIONS/LESIONS, ALL PRESENT ON ADMISSION. DR JONES AND DR REARDON CALLED FOR SURGICAL AND DPM CONSULTS. PT IS INCONTINENT AND VERY THIN/BONY. 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 DISCUSSED SKIN PROTECTION RECOMMENDATIONS WITH NURSING STAFF. FIRST STEP LOW AIRLOSS MATTRESS IS ON ORDER. Addendum: 03/28/23 at 1024 by SUSANA BARKER WNDNU Amended: Links added.
[2023-03-28] MEDS ORDERED: SODIUM POLYSTYRENE SULFONATE 15 G/60 ML BOTTLE GT SCH (10:30)
[2023-03-28] MEDS ORDERED: SODIUM POLYSTYRENE SULF. PWD 15 GM UDC GT SCH (10:30)
[2023-03-28] MEDS ORDERED: SILV20CR13 TP (10:58)
[2023-03-28] MEDS ORDERED: ACET-2605 GT (10:58)
[2023-03-28] MEDS ORDERED: [UNRECOGNIZED DRUG - CODE] TP (10:58)
[2023-03-28] MEDS ORDERED: CRAN3875 GT (10:58)
[2023-03-28] MEDS ORDERED: IPRA4AER IH (10:58)
[2023-03-28] MEDS ORDERED: ACET-868 GT (10:58)
[2023-03-28] MEDS ORDERED: HYDR-4303 GT (10:58)
[2023-03-28] MEDS ORDERED: CRAN425C6 GT (10:58)
[2023-03-28] MEDS ORDERED: ONDA-97 PO (10:58)
[2023-03-28 10:59] LABS: CREATININE 0.7 mg/dL (0.6-1.3); POTASSIUM 3.9 mmol/L (3.5-5.1)
[2023-03-28] MEDS: GLUCERNA 1.2 1,000 ML BOTTLE NG PRN (11:12)
[2023-03-28 12:06] LABS: POTASSIUM 3.9 mmol/L (3.5-5.1)
[2023-03-28] MEDS: PIPERACILLIN /TAZOBACTAM 3.375 G in IV D5W 50 ML IV SCH ×2 (12:20→18:13)
[2023-03-28] MEDS: IPRATROPIUM NEB FS 0.5 MG/2.5 ML AMPUL.NEB NEB SCH ×3 (13:56→19:34)
[2023-03-28] MEDS: ALBUTEROL FS 2.5 MG/3 ML VIAL.NEB NEB SCH ×3 (13:56→19:34)
[2023-03-28] MEDS: ENOXAPARIN SODIUM 40 MG/0.4 ML DISP.SYRIN SQ SCH (14:38)
[2023-03-28 16:00] VITALS: BP 90/47
[2023-03-28] MEDS: VANCOMYCIN 0.75 GM in IV D5W 250 ML IV SCH (16:55)
[2023-03-28] MEDS: PROSOURCE / PROSTAT (PYXIS) 30 ML UDC GT SCH (17:00)
--- NOTE | 2023-03-28 17:48 | NUR ---
RN NOTE PT NOTED TO HAVE LOW BP 90/52. NOTIFIED DR. TREVINO AND SAID TO ORDER 500 CC NORMAL SALINE BOLUS. ORDER NOTED AND CARRIED OUT Addendum: 03/28/23 at 1841 by DEANGELO RODGERS RN post bolus, bp recheck 99/53
[2023-03-28] MEDS ORDERED: IV NS 0.9% 500 ML IV ONE (18:00)
[2023-03-28] MEDS ORDERED: INSULIN REGULAR, HUMAN 100 UNIT/ML 10 ML VIAL IV ONE (18:30)
--- NOTE | 2023-03-28 19:13 | NUR ---
HORSE BREAKER CLOSING NOTE PT AWAKE, OBTUNDED, NONVERBAL, EASILY AROUSABLE. ON TELE MONITOR. NO SIGNS OF PAIN OR DISCOMFORT AT THIS TIME. PT HAS RIGHT THUMB 22 GUAGE. PT HAS LEFT UPPER ARM MIDLINE,IV INTACT, PATENT AND FLUSHING WELL. PT IS CONTRACTED, CONDOM CATH IN PLACE DRAINING YELLOW COLOR TO GRAVITY. ALL SAFETY MEASURES IN PLACE. CALL LIGHT WITHIN REACH, BED LOCKED IN LOWEST POSITION. SIDE RAILS UP X2. BED ALARM ON.ENDORSED TO ENGINEERING FACULTY RN FOR CONTUITY OF CARE
[2023-03-28] MEDS ORDERED: INSULIN REGULAR, HUMAN 100 UNIT/ML 10 ML VIAL IV PRN (19:30)
[2023-03-28] MEDS ORDERED: DEXTROSE 50%-WATER 50 ML DISP.SYRIN IV PRN (19:30)
--- NOTE | 2023-03-28 19:30 | NUR ---
RN NOTES RECEIVED REPORT FROM MORNING SHIFT. PATIENT IN BED OBTUNDED. ON NASAL CANULA @ 2LPM SATING 98% NO SOB NOT ON RESPIRATORY DISTRESS. WITH IV ACCESS AT ZONIA MIDLINE PATENT FLUSHES WELL. GT INTACT NO GASTRIC RESIDUAL RUNNING 20CC/HR. ALL SAFETY MEASURES IN PLACE. HOB ELEVATED. CALL LIGHT WITHIN REACH. WILL CLOSELY MONITOR THE PATIENT
[2023-03-28] MEDS: INSULIN REGULAR, HUMAN 100 UNIT/ML 3 ML VIAL SQ PRN (19:33)
--- NOTE | 2023-03-28 19:34 | NUR ---
RN NOTE INSULIN FOR 183 NOT GIVEN DUE TO ORDER INPUT INCORRECTLY
[2023-03-28 20:00] VITALS: BP 115/41
[2023-03-29] VITALS: BP 106/57
[2023-03-29] MEDS: PIPERACILLIN /TAZOBACTAM 3.375 G in IV D5W 50 ML IV SCH ×3 (00:05→11:24)
[2023-03-29] MEDS: BLOOD SUGAR DIAGNOSTIC 1 EACH STRIP IN SCH ×4 (00:14→17:21)
[2023-03-29] MEDS: INSULIN REGULAR, HUMAN 100 UNIT/ML 3 ML VIAL SQ PRN ×4 (00:15→17:39)
[2023-03-29 04:00] VITALS: BP 110/67
[2023-03-29] MEDS: VANCOMYCIN 0.75 GM in IV D5W 250 ML IV SCH ×2 (04:49→15:25)
--- NOTE | 2023-03-29 06:50 | NUR ---
RN NOTES. PATIENT REMAINS STABLE NO SIGNIFICANT CHANGES WEILL ENDORSED TO MORNING SHIFT FOR DENG
[2023-03-29 06:51] LABS: BASOPHILS # (AUTO) 0.2 K/uL (0.0-0.2); HEMATOCRIT 29 % (39-51); HEMOGLOBIN 9.1 g/dL (13.5-17.5); LYMPHOCYTES # (AUTO) 1.1 K/uL (0.8-4.8); LYMPHOCYTES % (AUTO) 6.3 % (20.0-44.0); MEAN CORPUSCULAR HGB CONC 32 g/dl (31.0-36.0); MEAN CORPUSCULAR VOLUME 78 fL (80-96); MONOCYTES # (AUTO) 0.8 K/uL (0.1-1.30); MONOCYTES % (AUTO) 4.8 % (2.0-12.0); NEUTROPHILS # (AUTO) 14.1 K/uL (1.8-8.9); NEUTROPHILS % (AUTO) 83.9 % (43.0-81.0); PLATELET COUNT (AUTO) 549 K/uL (150-450); RED BLOOD CELL COUNT(AUTO) 3.65 MIL/uL (4.5-6.0); WHITE BLOOD COUNT (AUTO) 16.8 K/uL (4.3-11.0)
[2023-03-29 07:05] LABS: CALCIUM, SERUM 9.1 mg/dL (8.5-10.1); CREATININE 0.7 mg/dL (0.6-1.3); MAGNESIUM 2.1 mg/dL (1.8-2.4); POTASSIUM 3.6 mmol/L (3.5-5.1)
--- NOTE | 2023-03-29 07:25 | NUR ---
PLANNING ANALYST OPENING NOTE RECEIVED PT AWAKE, OBTUNDED, NONVERBAL, EASILY AROUSABLE. ON TELE MONITOR CURRENTLY AT SR 90. NO SIGNS OF PAIN OR DISCOMFORT AT THIS TIME. PT HAS LEFT UPPER ARM MIDLINE,IV INTACT, PATENT AND FLUSHING WELL. PT IS CONTRACTED, CONDOM CATH IN PLACE DRAINING YELLOW COLOR TO GRAVITY. ALL SAFETY MEASURES IN PLACE. CALL LIGHT WITHIN REACH, BED LOCKED IN LOWEST POSITION. SIDE RAILS UP X2. BED ALARM ON.
[2023-03-29] MEDS: ALBUTEROL FS 2.5 MG/3 ML VIAL.NEB NEB SCH ×5 (07:35→20:03)
[2023-03-29] MEDS: IPRATROPIUM NEB FS 0.5 MG/2.5 ML AMPUL.NEB NEB SCH ×5 (07:35→20:03)
[2023-03-29] MEDS: PROSOURCE / PROSTAT (PYXIS) 30 ML UDC GT SCH ×2 (07:48→18:05)
[2023-03-29 08:00] VITALS: BP 100/54
[2023-03-29] MEDS: PANTOPRAZOLE 40 MG VIAL IV SCH (08:03)
[2023-03-29] MEDS: ENOXAPARIN SODIUM 40 MG/0.4 ML DISP.SYRIN SQ SCH (08:04)
[2023-03-29] MEDS ORDERED: SODIUM POLYSTYRENE SULF. PWD 15 GM UDC GT SCH (09:00)
[2023-03-29 12:00] VITALS: BP 95/61
[2023-03-29 15:20] LABS: BILIRUBIN,URINE NEGATIVE (NEGATIVE); COLOR,URINE YELLOW (YELLOW); LEUKOCYTE ESTERASE ,URINE NEGATIVE (NEGATIVE); NITRITE, URINE NEGATIVE (NEGATIVE); PH,URINE 7.5 (5.0-8.0); PROTEIN,URINE 1+ mg/dl (NEGATIVE); UGLUCOSE NEGATIVE (NEGATIVE); UROBILINOGEN,URINE 0.2 EU/dL (0.2)
[2023-03-29 15:31] LABS: BACTERIA,URINE Few /HPF (None Seen); RBC,URINE 0-2 /HPF (0-2); SQUAMOUS EPITHELIAL CELL,UR Few /HPF (None Seen); WBC,URINE 0-2 /HPF (0-3); YEAST,URINE Moderate /HPF (None Seen)
[2023-03-29 16:00] VITALS: BP 108/57
--- NOTE | 2023-03-29 16:52 | NUR ---
rn note notified pharmacy that vanco trough 43, gave vancomycin before lab was resulted. notified pharmacy said it is not accurate due to being draw after vancomycin. said okay to give dose and vanco trough will be scheduled for 03/30/23 0300. and to endorse to scene shifter to draw vanco trough before giving dose
--- NOTE | 2023-03-29 19:15 | NUR ---
MOTORCYCLE MECHANIC CLOSING NOTE PT AWAKE, OBTUNDED, NONVERBAL, EASILY AROUSABLE. ON TELE MONITOR CURRENTLY AT SR 89. NO SIGNS OF PAIN OR DISCOMFORT AT THIS TIME. PT HAS LEFT UPPER ARM MIDLINE,IV INTACT, PATENT AND FLUSHING WELL. PT IS CONTRACTED.ALL SAFETY MEASURES IN PLACE. CALL LIGHT WITHIN REACH, BED LOCKED IN LOWEST POSITION. SIDE RAILS UP X2. BED ALARM ON.ENDORSED TO INK GRINDER RN FOR CONTUITY OF CARE
--- NOTE | 2023-03-29 19:15 | NUR ---
GRADER TENDER OPENING NOTE PATIENT IS IN BED, WITH HOB ELEVATED AT 45 DEGREE. HIS EYES ARE OPENED, OBTUNDED, NONVERBAL. PT IS ON 2 LPM OXYGEN VIA NC, TOLERATED WELL. NO S/S OF DISTRESS OR SOB. PT IS ON EXTERNAL BALE OPENER, HIS HEART RHYTHM IS SR WITH HR AT 80S. NO SIGNS OF HAVING PAIN OR DISCOMFORT AT THIS TIME. PT HAS IV ACCESS AT HIS LEFT UPPER ARM, MIDLINE, #18G. IV IS INTACT, PATENT AND FLUSHED WELL. PT HAS G-TUBE FOR FEEDING. CHECKED THE G-TUBE PLACEMENT AND RESIDUAL, RECEIVED 0 RESIDUAL. FEEDING FORMULA IS GLUCERNA 1.2 @ 40 ML/HR. ACCORDING TO CHANGE SHIFT REPORT, THE FEEDING RATE'S GOAL IS 60 ML/HR. ALL SAFETY MEASURES ARE IN PLACED. BED IS IN LOWEST AND LOCKED POSITION; SIDE RAILS UP X 2; CALL LIGHT AND TABLE ARE WITHIN REACH. WILL MONITOR THE PT ACCORDINGLY.
[2023-03-29 20:00] VITALS: BP 119/47
[2023-03-29] MEDS: PIPERACILLIN /TAZOBACTAM 3.375 G in IV D5W 100 ML IV SCH (21:32)
[2023-03-30] VITALS: BP 121/72
[2023-03-30] MEDS: INSULIN REGULAR, HUMAN 100 UNIT/ML 3 ML VIAL SQ PRN ×4 (00:08→17:51)
[2023-03-30 04:00] VITALS: BP 123/66
[2023-03-30] MEDS: VANCOMYCIN 0.75 GM in IV D5W 250 ML IV SCH ×2 (04:00→16:07)
--- NOTE | 2023-03-30 04:16 | NUR ---
SHOT PEEN OPERATOR NOTE PT'S VANCOMYCIN TROUGH IS 21. IV MEDICATION, VANCOMYCIN, WAS HOLD PER MD ORDER. CHARGE NURSE, FRANKO, NOTIFIED.
[2023-03-30] MEDS: PIPERACILLIN /TAZOBACTAM 3.375 G in IV D5W 100 ML IV SCH ×3 (04:20→21:40)
[2023-03-30] MEDS: GLUCERNA 1.2 1,000 ML BOTTLE NG PRN (04:27)
[2023-03-30 05:42] LABS: BASOPHILS # (AUTO) 0.2 K/uL (0.0-0.2); EOSINOPHILS % (AUTO) 11.4 % (0.0-6.0); HEMATOCRIT 26 % (39-51); HEMOGLOBIN 8.6 g/dL (13.5-17.5); LYMPHOCYTES # (AUTO) 0.9 K/uL (0.8-4.8); LYMPHOCYTES % (AUTO) 10.5 % (20.0-44.0); MEAN CORPUSCULAR HGB CONC 33 g/dl (31.0-36.0); MEAN CORPUSCULAR VOLUME 78 fL (80-96); MONOCYTES # (AUTO) 0.6 K/uL (0.1-1.30); MONOCYTES % (AUTO) 7.3 % (2.0-12.0); NEUTROPHILS % (AUTO) 68.8 % (43.0-81.0); PLATELET COUNT (AUTO) 559 K/uL (150-450); RED BLOOD CELL COUNT(AUTO) 3.37 MIL/uL (4.5-6.0); WHITE BLOOD COUNT (AUTO) 8.7 K/uL (4.3-11.0)
[2023-03-30] MEDS: BLOOD SUGAR DIAGNOSTIC 1 EACH STRIP IN SCH ×4 (05:42→17:49)
[2023-03-30 05:56] LABS: CARBON DIOXIDE 29 mmol/L (21-32); CHLORIDE 97 mmol/L (98-107); CREATININE 0.7 mg/dL (0.6-1.3); GLUCOSE 224 mg/dL (74-106); MAGNESIUM 2.3 mg/dL (1.8-2.4); PHOSPHORUS 3.3 mg/dL (2.5-4.9); POTASSIUM 3.7 mmol/L (3.5-5.1); SODIUM SERUM 134 mmol/L (136-145); UREA NITROGEN, BLOOD 18 mg/dL (7-18)
--- NOTE | 2023-03-30 06:28 | NUR ---
DECALER CLOSING NOTE PATIENT IS IN BED, WITH HOB ELEVATED AT 45 DEGREE. HIS EYES ARE OPENED, OBTUNDED, NONVERBAL. PT IS ON 2 LPM OXYGEN VIA NC, TOLERATED WELL. NO S/S OF DISTRESS OR SOB. PT IS ON EXTERNAL SHEAR SCRAPMAN, HIS HEART RHYTHM IS SR WITH HR AT 80S. NO SIGNS OF HAVING PAIN OR DISCOMFORT AT THIS TIME. PT HAS IV ACCESS AT HIS LEFT UPPER ARM, MIDLINE, #18G; INFUSING ZOSYN @ 25 ML/HR. IV IS INTACT AND PATENT. PT HAS G-TUBE FOR FEEDING. CHECKED THE G-TUBE PLACEMENT AND RESIDUAL, RECEIVED 0 RESIDUAL. FEEDING FORMULA IS GLUCERNA 1.2 @ 45 ML/HR. ACCORDING TO CHANGE SHIFT REPORT, THE FEEDING RATE'S GOAL IS 60 ML/HR X 20 HRS PER DAY. ALL SAFETY MEASURES ARE IN PLACED. BED IS IN LOWEST AND LOCKED POSITION; SIDE RAILS UP X 2; CALL LIGHT AND TABLE ARE WITHIN REACH. WILL ENDORSE NEXT SHIFT NURSE FOR CONTINUING PT CARE.
--- NOTE | 2023-03-30 07:11 | NUR ---
CENTER CONSULTANT OPENING NOTE RECEIVED PT AWAKE, OBTUNDED, NONVERBAL, EASILY AROUSABLE. HOB ELEVATED. ON TELE MONITOR CURRENTLY AT ST 101. NO SIGNS OF PAIN OR DISCOMFORT AT THIS TIME. PT HAS LEFT UPPER ARM MIDLINE,IV INTACT, PATENT AND FLUSHING WELL. PT IS CONTRACTED.ALL SAFETY MEASURES IN PLACE. CALL LIGHT WITHIN REACH, BED LOCKED IN LOWEST POSITION. SIDE RAILS UP X2. BED ALARM ON
[2023-03-30] MEDS: IPRATROPIUM NEB FS 0.5 MG/2.5 ML AMPUL.NEB NEB SCH ×4 (07:46→19:46)
[2023-03-30] MEDS: ALBUTEROL FS 2.5 MG/3 ML VIAL.NEB NEB SCH ×4 (07:46→19:45)
[2023-03-30 08:00] VITALS: BP 125/77
[2023-03-30] MEDS: PROSOURCE / PROSTAT (PYXIS) 30 ML UDC GT SCH ×2 (08:28→16:10)
[2023-03-30] MEDS: PANTOPRAZOLE 40 MG/PACK PACK GT SCH (08:28)
[2023-03-30] MEDS: ENOXAPARIN SODIUM 40 MG/0.4 ML DISP.SYRIN SQ SCH (08:29)
[2023-03-30 12:00] VITALS: BP 144/88
[2023-03-30 16:00] VITALS: BP 157/98
--- NOTE | 2023-03-30 19:12 | NUR ---
DENTAL MOLD MAKER CLOSING NOTE PT AWAKE, OBTUNDED, NONVERBAL, EASILY AROUSABLE. ON TELE MONITOR CURRENTLY AT ST 113. NO SIGNS OF PAIN OR DISCOMFORT AT THIS TIME. PT HAS LEFT UPPER ARM MIDLINE,IV INTACT, PATENT AND FLUSHING WELL. PT IS CONTRACTED.PT HAS GTUBE. NO RESIDUAL VOLUME NOTED. GTUBE INTACT AND PATENT. ALL SAFETY MEASURES IN PLACE. CALL LIGHT WITHIN REACH, BED LOCKED IN LOWEST POSITION. SIDE RAILS UP X2. BED ALARM ON.ENDORSED TO PREDATORY ANIMAL HUNTER RN FOR CONTUITY OF CARE
--- NOTE | 2023-03-30 19:30 | NUR ---
SALES CORRESPONDENT OPENING NOTE RECEIVED PATIENT IN BED, WITH HOB ELEVATED AT 45 DEGREE. HIS EYES ARE OPENED, OBTUNDED, NONVERBAL. PT IS ON 2 LPM OXYGEN VIA NC, TOLERATED WELL. NO S/S OF DISTRESS OR SOB. PT IS ON EXTERNAL RADIOLOGIC TECHNOLOGIST MAMMOGRAM, HIS HEART RHYTHM IS ST AT 109. NO SIGNS OF DISCOMFORT AT THIS TIME. PT HAS IV ACCESS AT HIS LEFT UPPER ARM, MIDLINE, #18G. IV IS INTACT, PATENT AND FLUSHED WELL. PT HAS G-TUBE FOR FEEDING. CHECKED THE G-TUBE PLACEMENT AND RESIDUAL, RECEIVED 0 RESIDUAL. FEEDING FORMULA IS GLUCERNA 1.2 @ 50 ML/HR. ACCORDING TO CHANGE SHIFT REPORT, THE FEEDING RATE'S GOAL IS 60 ML/HR. ALL SAFETY MEASURES ARE IN PLACED. BED IS IN LOWEST AND LOCKED POSITION; SIDE RAILS UP X 2; CALL LIGHT AND TABLE ARE WITHIN REACH. WILL CONTINUE TO MONITOR THROUGHOUT THE SHIFT.
[2023-03-30 20:00] VITALS: BP 128/77
[2023-03-31] VITALS: BP 130/72
[2023-03-31] MEDS: BLOOD SUGAR DIAGNOSTIC 1 EACH STRIP IN SCH ×5 (00:30→23:48)
[2023-03-31] MEDS: INSULIN REGULAR, HUMAN 100 UNIT/ML 3 ML VIAL SQ PRN ×5 (00:38→23:49)
[2023-03-31 04:00] VITALS: BP 123/69
[2023-03-31] MEDS: GLUCERNA 1.2 1,000 ML BOTTLE NG PRN (04:07)
[2023-03-31] MEDS: PIPERACILLIN /TAZOBACTAM 3.375 G in IV D5W 100 ML IV SCH ×3 (05:32→20:26)
[2023-03-31 06:26] LABS: BASOPHILS # (AUTO) 0.1 K/uL (0.0-0.2); BASOPHILS % (AUTO) 1.2 % (0.0-2.0); EOSINOPHILS % (AUTO) 6.6 % (0.0-6.0); HEMATOCRIT 29 % (39-51); LYMPHOCYTES % (AUTO) 10.2 % (20.0-44.0); MEAN CORPUSCULAR HGB CONC 32 g/dl (31.0-36.0); MEAN CORPUSCULAR VOLUME 80 fL (80-96); MONOCYTES # (AUTO) 0.9 K/uL (0.1-1.30); MONOCYTES % (AUTO) 9.7 % (2.0-12.0); NEUTROPHILS # (AUTO) 6.9 K/uL (1.8-8.9); NEUTROPHILS % (AUTO) 72.3 % (43.0-81.0); PLATELET COUNT (AUTO) 611 K/uL (150-450); RED BLOOD CELL COUNT(AUTO) 3.55 MIL/uL (4.5-6.0); WHITE BLOOD COUNT (AUTO) 9.6 K/uL (4.3-11.0)
[2023-03-31 06:37] LABS: CREATININE 0.7 mg/dL (0.6-1.3); MAGNESIUM 2.3 mg/dL (1.8-2.4); PHOSPHORUS 2.7 mg/dL (2.5-4.9); POTASSIUM 3.9 mmol/L (3.5-5.1)
--- NOTE | 2023-03-31 06:55 | NUR ---
FRYLINE ATTENDANT CLOSING NOTE PATIENT REMAINS IN BED, WITH HOB ELEVATED AT 45 DEGREE. HIS EYES ARE OPENED, OBTUNDED, NONVERBAL. PT IS ON 2 LPM OXYGEN VIA NC, TOLERATED WELL. NO S/S OF DISTRESS OR SOB. PT IS ON EXTERNAL A/C TECHNICIAN, HIS HEART RHYTHM IS SR. NO SIGNS OF DISCOMFORT AT THIS TIME. PT HAS IV ACCESS AT HIS LEFT UPPER ARM, MIDLINE, #18G. IV IS INTACT, PATENT AND FLUSHED WELL. PT HAS G-TUBE FOR FEEDING. CHECKED THE G-TUBE PLACEMENT AND RESIDUAL, RECEIVED 0 RESIDUAL. FEEDING FORMULA IS GLUCERNA 1.2 @ 60 ML/HR FOR 20HRS, OFF 0400 TO BE RESUME AT 0800, ALL SAFETY MEASURES ARE IN PLACED. BED IS IN LOWEST AND LOCKED POSITION; SIDE RAILS UP X 2; CALL LIGHT AND TABLE ARE WITHIN REACH. ALL DUE MEDS GIVEN, KEPT DRY AND CLEAN, WILL CONT TO MONITOR THROUGHOUT THE SHIFT.
--- NOTE | 2023-03-31 07:25 | NUR ---
SURFACER OPERATOR OPENING NOTE PATIENT RECEIVED IN BED AWAKE AND RESTING WITH HOB ELEVATED AT 45 DEGREE. OBTUNDED, NONVERBAL. PT IS ON 2 LPM OXYGEN VIA NC WITH BREATHING EVEN AND UNLABORED AND NO S/S OF DISTRESS OR SOB. PT HAS IV ACCESS AT HIS LEFT UPPER ARM, MIDLINE, #18G INTACT, PATENT AND FLUSHING WELL. PT HAS G-TUBE FOR FEEDING. FEEDING FORMULA IS GLUCERNA 1.2 @ 60 ML/HR FOR 20HRS, OFF 0400 TO BE RESUME AT 0800. ALL SAFETY MEASURES ARE IN PLACED WITH BED IS IN LOWEST AND LOCKED POSITION; SIDE RAILS UP X 2; CALL LIGHT AND TABLE ARE WITHIN REACH. ALL DUE MEDS GIVEN, KEPT DRY AND CLEAN, WILL CONT TO MONITOR THROUGHOUT THE SHIFT. Addendum: 03/31/23 at 0732 by MINDY MIRANDA RN PLEASE DISREGARD.
--- NOTE | 2023-03-31 07:31 | NUR ---
MAGAZINE JOURNALIST OPENING NOTE PATIENT RECEIVED IN BED AWAKE AND RESTING WITH HOB ELEVATED AT 45 DEGREE. OBTUNDED, NONVERBAL. PT IS ON 2 LPM OXYGEN VIA NC WITH BREATHING EVEN AND UNLABORED AND NO S/S OF DISTRESS OR SOB. PT HAS IV ACCESS AT HIS LEFT UPPER ARM, MIDLINE, #18G INTACT, PATENT AND FLUSHING WELL. PT HAS G-TUBE FOR FEEDING. FEEDING FORMULA IS GLUCERNA 1.2 @ 60 ML/HR FOR 20HRS, OFF 0400 TO BE RESUMED AT 0800. ALL SAFETY MEASURES ARE IN PLACED WITH BED IS IN LOWEST AND LOCKED POSITION; SIDE RAILS UP X 2; CALL LIGHT AND TABLE ARE WITHIN REACH. WILL CONTINUE TO MONITOR.
[2023-03-31 08:00] VITALS: BP 111/67
[2023-03-31] MEDS: IPRATROPIUM NEB FS 0.5 MG/2.5 ML AMPUL.NEB NEB SCH ×4 (08:04→19:45)
[2023-03-31] MEDS: ALBUTEROL FS 2.5 MG/3 ML VIAL.NEB NEB SCH ×4 (08:04→19:45)
[2023-03-31] MEDS: PANTOPRAZOLE 40 MG/PACK PACK GT SCH (08:11)
[2023-03-31] MEDS: ENOXAPARIN SODIUM 40 MG/0.4 ML DISP.SYRIN SQ SCH (08:11)
[2023-03-31] MEDS: PROSOURCE / PROSTAT (PYXIS) 30 ML UDC GT SCH ×2 (08:12→16:40)
[2023-03-31 12:00] VITALS: BP 120/75
--- NOTE | 2023-03-31 15:56 | NUR ---
PER PHARMACY, VANCO HAS BEEN ADJUSTED AND IS SAFE TO ADMINISTER AT 1600
[2023-03-31 16:00] VITALS: BP 112/73
[2023-03-31] MEDS: VANCOMYCIN 0.75 GM in IV D5W 250 ML IV SCH (17:44)
--- NOTE | 2023-03-31 19:36 | NUR ---
COLLARETTE SEPARATOR CLOSING NOTE PATIENT AWAKE WITH HOB ELEVATED AT 45 DEGREE. ALERT AND ORIENTED X0. NONVERBAL. PT IS ON 2 LPM OXYGEN VIA NC WITH BREATHING EVEN AND UNLABORED AND NO S/S OF DISTRESS OR SOB. PT HAS IV ACCESS AT HIS LEFT UPPER ARM, MIDLINE, #18G INTACT, PATENT AND FLUSHING WELL. PT HAS G-TUBE RUNNING GLUCERNA 1.2 @ 60 ML/HR FOR 20HRS. ALL DUE MEDS GIVEN AND PATIENT KEPT CLEAN AND COMFORTABLE. ALL SAFETY MEASURES ARE IN PLACED WITH BED IS IN LOWEST AND LOCKED POSITION; SIDE RAILS UP X 2; CALL LIGHT AND TABLE ARE WITHIN REACH. WILL ENDORSE TO ONCOMING SHIFT FOR DENG.
[2023-03-31 20:00] VITALS: BP 133/83
[2023-03-31] MEDS: ACETAMINOPHEN 650 MG/20.3 ML UDC GT PRN (20:37)
[2023-04-01] VITALS: BP 145/82
[2023-04-01 04:00] VITALS: BP 142/76
[2023-04-01] MEDS: PIPERACILLIN /TAZOBACTAM 3.375 G in IV D5W 100 ML IV SCH ×2 (04:55→12:01)
[2023-04-01] MEDS: INSULIN REGULAR, HUMAN 100 UNIT/ML 3 ML VIAL SQ PRN ×4 (05:01→23:20)
[2023-04-01] MEDS: BLOOD SUGAR DIAGNOSTIC 1 EACH STRIP IN SCH ×4 (05:01→23:13)
[2023-04-01 05:47] LABS: BASOPHILS # (AUTO) 0.1 K/uL (0.0-0.2); EOSINOPHILS % (AUTO) 6.7 % (0.0-6.0); HEMATOCRIT 31 % (39-51); HEMOGLOBIN 10.1 g/dL (13.5-17.5); LYMPHOCYTES # (AUTO) 1.1 K/uL (0.8-4.8); LYMPHOCYTES % (AUTO) 12.8 % (20.0-44.0); MEAN CORPUSCULAR HGB CONC 33 g/dl (31.0-36.0); MEAN CORPUSCULAR VOLUME 78 fL (80-96); MONOCYTES # (AUTO) 0.9 K/uL (0.1-1.30); MONOCYTES % (AUTO) 10.6 % (2.0-12.0); NEUTROPHILS # (AUTO) 5.9 K/uL (1.8-8.9); NEUTROPHILS % (AUTO) 68.9 % (43.0-81.0); PLATELET COUNT (AUTO) 612 K/uL (150-450); WHITE BLOOD COUNT (AUTO) 8.6 K/uL (4.3-11.0)
[2023-04-01 06:05] LABS: CALCIUM, SERUM 9.2 mg/dL (8.5-10.1); CARBON DIOXIDE 31 mmol/L (21-32); CHLORIDE 97 mmol/L (98-107); CREATININE 0.7 mg/dL (0.6-1.3); GLUCOSE 133 mg/dL (74-106); MAGNESIUM 2.3 mg/dL (1.8-2.4); PHOSPHORUS 2.9 mg/dL (2.5-4.9); POTASSIUM 4.1 mmol/L (3.5-5.1); SODIUM SERUM 134 mmol/L (136-145); UREA NITROGEN, BLOOD 26 mg/dL (7-18)
--- NOTE | 2023-04-01 06:31 | NUR ---
END OF SHIFT, PATIENT IN BED, A/O X0, NONVERBAL, UNABLE TO VERBALIZE NEEDS AND CONCERNS, ON 2 LPM VIA NC, NO SOB/ACUTE DISTRESS NOTED DURING THE NIGHT, HIGH RISK FOR ASPIRATIONS, HOB AT 45 DEGREES AT ALL TIMES, ORAL SUCTION PROVIDED NEEDED, ZONIA MIDLINE PATENT AND INTACT, G-TUBE IN PLACE, GLUCERNA 1.2 @ 60 ML/HR FOR 20HRS., STOPPED AT 0400, TO REINITIATE AT 0800, ALL SAFETY MEASURES MAINTAINED, BED LOCKED AND LOWEST POSITION; SIDE RAILS OF BED UP X 2, CALL LIGHT WITHIN REACH, WILL ENDORSE CONTINUITY OF CARE TO ONCOMING NURSE.
--- NOTE | 2023-04-01 07:30 | NUR ---
INSTRUCTOR EXTENSION WORK OPENING NOTE PATIENT RECEIVED IN IN BED SLEEPING. EASILY AROUSABLE. A/O X0, NONVERBAL. ON 2 LPM VIA NC WITH BREATHING EVEN AND UNLABORED AND NO S/S OF SOB OR RESPIRATORY DISTRESS NOTED. IV ACCESS ZONIA MIDLINE PATENT AND INTACT. G-TUBE IN PLACE WITH GLUCERNA 1.2 @ 60 ML/HR FOR 20HRS SCHEDULED TO REINITIATE AT 0800. ALL SAFETY MEASURES IN PLACE WITH BED IN LOWEST LOCKED POSITION, HOB AT 45 DEGREES AT ALL TIMES, ORAL SUCTION AT BEDSIDE, SIDE RAILS OF BED UP X 2, CALL LIGHT WITHIN REACH. WILL CONTINUE TO MONITOR.
[2023-04-01] MEDS: PROSOURCE / PROSTAT (PYXIS) 30 ML UDC GT SCH ×2 (07:56→17:00)
[2023-04-01 08:00] VITALS: BP 107/74
[2023-04-01] MEDS: PANTOPRAZOLE 40 MG/PACK PACK GT SCH (08:01)
[2023-04-01] MEDS: ALBUTEROL FS 2.5 MG/3 ML VIAL.NEB NEB SCH ×4 (08:02→19:53)
[2023-04-01] MEDS: IPRATROPIUM NEB FS 0.5 MG/2.5 ML AMPUL.NEB NEB SCH ×4 (08:02→19:53)
[2023-04-01] MEDS: ENOXAPARIN SODIUM 40 MG/0.4 ML DISP.SYRIN SQ SCH (08:03)
[2023-04-01 16:00] VITALS: BP 117/57
--- NOTE | 2023-04-01 19:40 | NUR ---
BIKE DESIGNER CLOSING NOTE PATIENT IN BED SLEEPING. EASILY AROUSABLE. A/O X0, NONVERBAL. ON 2 LPM VIA NC WITH BREATHING EVEN AND UNLABORED AND NO S/S OF SOB OR RESPIRATORY DISTRESS NOTED. IV ACCESS ZONIA MIDLINE PATENT AND INTACT. G-TUBE IN PLACE WITH GLUCERNA 1.2 @ 60 ML/HR FOR 20HRS SCHEDULED TO BE PAUSED AT 0400. ALL DUE MEDS GIVEN AND PATIENT KEPT CLEAN AND COMFORTABLE. ALL SAFETY MEASURES IN PLACE WITH BED IN LOWEST LOCKED POSITION, HOB AT 45 DEGREES AT ALL TIMES, ORAL SUCTION AT BEDSIDE, SIDE RAILS OF BED UP X 2, CALL LIGHT WITHIN REACH. WILL ENDORSE TO ONCOMING SHIFT FOR DENG.
--- NOTE | 2023-04-01 20:00 | NUR ---
MS RN OPENING NOTES RECEIVED PATIENT IN BED SLEEPING. AWAKENS TO TOUCH. A/O X 0, NONVERBAL. ON 2 LPM VIA NC, BREATHING EVEN AND UNLABORED AND NO S/S OF SOB OR RESPIRATORY DISTRESS NOTED. IV ACCESS ZONIA MIDLINE PATENT AND INTACT. G-TUBE IN PLACE WITH GLUCERNA 1.2 @ 60 ML/HR. SAFETY MEASURES IN PLACE WITH BED IN LOWEST LOCKED POSITION, HOB AT 45 DEGREES AT ALL TIMES, ORAL SUCTION AT BEDSIDE, SIDE RAILS OF BED UP X 2, CALL LIGHT WITHIN REACH. WILL CONTINUE WITH THE PLAN OF CARE.
[2023-04-02] VITALS: BP 117/57
[2023-04-02] MEDS: BLOOD SUGAR DIAGNOSTIC 1 EACH STRIP IN SCH (06:25)
[2023-04-02 06:43] LABS: BASOPHILS # (AUTO) 0.1 K/uL (0.0-0.2); BASOPHILS % (AUTO) 0.7 % (0.0-2.0); EOSINOPHILS % (AUTO) 4.9 % (0.0-6.0); HEMATOCRIT 31 % (39-51); HEMOGLOBIN 9.9 g/dL (13.5-17.5); LYMPHOCYTES % (AUTO) 9.6 % (20.0-44.0); MEAN CORPUSCULAR HGB CONC 32 g/dl (31.0-36.0); MEAN CORPUSCULAR VOLUME 78 fL (80-96); MONOCYTES # (AUTO) 1.1 K/uL (0.1-1.30); MONOCYTES % (AUTO) 10.2 % (2.0-12.0); NEUTROPHILS # (AUTO) 7.8 K/uL (1.8-8.9); NEUTROPHILS % (AUTO) 74.6 % (43.0-81.0); PLATELET COUNT (AUTO) 627 K/uL (150-450); RED BLOOD CELL COUNT(AUTO) 3.96 MIL/uL (4.5-6.0); WHITE BLOOD COUNT (AUTO) 10.5 K/uL (4.3-11.0)
[2023-04-02] MEDS: INSULIN REGULAR, HUMAN 100 UNIT/ML 3 ML VIAL SQ PRN (06:43)
[2023-04-02 06:59] LABS: CALCIUM, SERUM 9.5 mg/dL (8.5-10.1); CARBON DIOXIDE 30 mmol/L (21-32); CHLORIDE 97 mmol/L (98-107); CREATININE 0.7 mg/dL (0.6-1.3); GLUCOSE 218 mg/dL (74-106); MAGNESIUM 2.3 mg/dL (1.8-2.4); PHOSPHORUS 3.1 mg/dL (2.5-4.9); POTASSIUM 4.3 mmol/L (3.5-5.1); SODIUM SERUM 137 mmol/L (136-145); UREA NITROGEN, BLOOD 26 mg/dL (7-18)
[2023-04-02] MEDS: IPRATROPIUM NEB FS 0.5 MG/2.5 ML AMPUL.NEB NEB SCH (07:27)
[2023-04-02] MEDS: ALBUTEROL FS 2.5 MG/3 ML VIAL.NEB NEB SCH (07:27)
--- NOTE | 2023-04-02 07:30 | NUR ---
MS RN OPENING NOTES RECEIVED PATIENT IN BED SLEEPING. AWAKENS TO TOUCH. A/O X 0, NONVERBAL. ON 2 LPM VIA NC, BREATHING EVEN AND UNLABORED AND NO S/S OF SOB OR RESPIRATORY DISTRESS NOTED. IV ACCESS ZONIA MIDLINE PATENT AND INTACT. G-TUBE IN PLACE WITH GLUCERNA STOPPED AT 0400, WILL RESUME @ 0800. SAFETY MEASURES MAINTAINED. HOB ELEVATED. WILL ADMINISTER ALL SCHEDULED MEDS ORDERED. WILL CONTINUE TO MONITOR.
--- NOTE | 2023-04-02 07:39 | NUR ---
MS RN CLOSING NOTES PATIENT IN BED SLEEPING. AWAKENS TO TOUCH. A/O X 0, NONVERBAL. ON 2 LPM VIA NC, BREATHING EVEN AND UNLABORED AND NO S/S OF SOB OR RESPIRATORY DISTRESS NOTED. IV ACCESS ZONIA MIDLINE PATENT AND INTACT. G-TUBE IN PLACE WITH GLUCERNA STOPPED AT 0400, WILL RESUME @ 0800. SAFETY MEASURES MAINTAINED. HOB ELEVATED. WILL ENDORSE TO THE NEXT SHIFT.
[2023-04-02] MEDS: PROSOURCE / PROSTAT (PYXIS) 30 ML UDC GT SCH (08:46)
[2023-04-02] MEDS: PANTOPRAZOLE 40 MG/PACK PACK GT SCH (08:46)
[2023-04-02] MEDS: ENOXAPARIN SODIUM 40 MG/0.4 ML DISP.SYRIN SQ SCH (08:47)
[2023-04-02] MEDS: GLUCERNA 1.2 1,000 ML BOTTLE NG PRN (09:00)
[2023-04-02] MEDS ORDERED: METO25TA6 PO (09:19)
[2023-04-02] MEDS: ACETAMINOPHEN 650 MG/20.3 ML UDC GT PRN (09:44)
--- NOTE | 2023-04-02 11:50 | NUR ---
FLOOR TECHNICIAN NOTES PT DISCHARGED STABLE WITHOUT DISTRESS. ON O2 VIA NC 22LPM FOR SUPPORT. PT AO X0, AWAKENS TO TOUCH. REPORT GIVEN TO YONI MONET AT [facility]. VITALS TAKEN, MIDLINE REMOVED. BELOINGINGS CHECKED AND RECONCILED. ARM BAND REMOVED. LEFT VIA GURNEY AT 1150 ACCOMPANIED BY TWO PRINTER ASSISTANT. CHARGE NURSE AWARE.
== END 2023-04-02 12:37 | DRG 871 ==
LOC: ER 02:05 → TELE1 04:37 → MEDSG1 04-01 10:59
PROVIDERS: ADMIT Nurse Practitioner Acute Care; ATTEND Nurse Practitioner Acute Care
DX: A41.9 Sepsis, unspecified organism (principal); G92.8 Other toxic encephalopathy; J69.0 Pneumonitis due to inhalation of food and vomit; J96.01 Acute respiratory failure with hypoxia; R53.2 Functional quadriplegia; J15.9 Unspecified bacterial pneumonia; R64 Cachexia; E87.1 Hypo-osmolality and hyponatremia; E44.1 Mild protein-calorie malnutrition; E87.3 Alkalosis; N17.9 Acute kidney failure, unspecified; G30.9 Alzheimer's disease, unspecified; F02.80 Dementia in other diseases classified elsewhere, unspecified severity, without behavioral disturbance, psychotic disturbance, mood disturbance, and anxiety; E78.5 Hyperlipidemia, unspecified; Z93.1 Gastrostomy status; Z93.0 Tracheostomy status; R13.10 Dysphagia, unspecified; Z20.822 Contact with and (suspected) exposure to COVID-19; N40.0 Benign prostatic hyperplasia without lower urinary tract symptoms; K21.9 Gastro-esophageal reflux disease without esophagitis; D63.8 Anemia in other chronic diseases classified elsewhere; D50.9 Iron deficiency anemia, unspecified; D75.839 Thrombocytosis, unspecified; L89.226 Pressure-induced deep tissue damage of left hip; E87.5 Hyperkalemia; M24.562 Contracture, left knee; M24.561 Contracture, right knee; L89.896 Pressure-induced deep tissue damage of other site; Z93.6 Other artificial openings of urinary tract status; E86.0 Dehydration; R00.0 Tachycardia, unspecified; E88.09 Other disorders of plasma-protein metabolism, not elsewhere classified; Z79.4 Long term (current) use of insulin; J45.909 Unspecified asthma, uncomplicated; Z79.899 Other long term (current) drug therapy; E11.36 Type 2 diabetes mellitus with diabetic cataract; H26.9 Unspecified cataract; Z79.82 Long term (current) use of aspirin; I11.9 Hypertensive heart disease without heart failure
CPT/HCPCS: 36415; 36600; 71045-TC; 76770-TC; 80048-TC; 80076-TC; 80202-TC; 81001; 82803-TC; 82962-TC; 83735-TC; 83880; 84100-TC; 84132-TC; 84295-TC; 84484-TC; 85025-TC; 87040-TC; 87081-TC; 87086-TC; 94799-TC; A4223; A4349; A6253; A6403; C9113; C9803; G0378; J0456; J1650; J1815; J2543; J3370; J3490; J7030; J7040; J7050; J7060

== ENCOUNTER 2023-05-02 13:23 | Inpatient (IN) | payer MEDICARE, OTHER ==
[~2023-05-02] VITALS: Ht 170.2 cm; Wt 45.8 kg
[~2023-05-02 13:23] MED LIST changes: +ACET-2605 GT; +ACET-868 GT; -ACET650S26 GT; -BLOO-668 IN; +CRAN3875 GT; +CRAN425C6 GT; -DEXT50DI8 IV; -ENOX40DI SQ; +HYDR-4303 GT; -HYDR1SOL TD; -IPRA3AMP23 IH; +IPRA4AER IH; +METO25TA6 PO; +ONDA-97 PO; -ONDA4TAB11 GT; -SENN-261 GT; +SILV20CR13 TP; -ZINC56.713 TP; +[UNRECOGNIZED DRUG - CODE] TP
[2023-05-02] MEDS ORDERED: IV NS 0.9% 1,000 ML BAG IV ONE (13:30)
[2023-05-02] MEDS ORDERED: VANCOMYCIN 1 GM in IV D5W 250 ML IV ONE (13:30)
[2023-05-02] MEDS ORDERED: CEFEPIME 1 GM in IV D5W 50 ML IV ONE (13:30)
[2023-05-02 13:55] LABS: BASOPHILS % (AUTO) 0.2 % (0.0-2.0); HEMATOCRIT 29 % (39-51); HEMOGLOBIN 9.4 g/dL (13.5-17.5); LYMPHOCYTES # (AUTO) 0.2 K/uL (0.8-4.8); LYMPHOCYTES % (AUTO) 1.3 % (20.0-44.0); MEAN CORPUSCULAR HGB CONC 32 g/dl (31.0-36.0); MEAN CORPUSCULAR VOLUME 77 fL (80-96); MONOCYTES # (AUTO) 0.6 K/uL (0.1-1.30); MONOCYTES % (AUTO) 5.2 % (2.0-12.0); NEUTROPHILS # (AUTO) 10.8 K/uL (1.8-8.9); NEUTROPHILS % (AUTO) 93.3 % (43.0-81.0); PLATELET COUNT (AUTO) 383 K/uL (150-450); RED BLOOD CELL COUNT(AUTO) 3.76 MIL/uL (4.5-6.0); WHITE BLOOD COUNT (AUTO) 11.6 K/uL (4.3-11.0)
[2023-05-02 14:06] LABS: CALCIUM, SERUM 9.5 mg/dL (8.5-10.1); CARBON DIOXIDE 26 mmol/L (21-32); CHLORIDE 94 mmol/L (98-107); CREATININE 1.3 mg/dL (0.6-1.3); GLUCOSE 305 mg/dL (74-106); POTASSIUM 3.9 mmol/L (3.5-5.1); SODIUM SERUM 133 mmol/L (136-145); UREA NITROGEN, BLOOD 54 mg/dL (7-18)
[2023-05-02] MEDS ORDERED: LEVO750T46 GT (14:10)
[2023-05-02] MEDS ORDERED: ACET650S26 GT (14:10)
[2023-05-02] MEDS ORDERED: CLOT15CR5 TP (14:10)
[2023-05-02] MEDS ORDERED: IPRA3AMP23 IH ×2 (14:10)
[2023-05-02] MEDS ORDERED: COLL30OI TP (14:10)
[2023-05-02] MEDS ORDERED: FURO-144 GT (14:10)
[2023-05-02 14:18] LABS: ALANINE AMINOTRANSFERASE 16 U/L (12-78); ALBUMIN 2.6 g/dL (3.4-5.0); ALKALINE PHOSPHATASE 105 U/L (46-116); ASPARTATE AMINOTRANSFERASE 12 U/L (15-37); BILIRUBIN,DIRECT 0.2 mg/dL (0.0-0.2); BILIRUBIN,TOTAL 0.4 mg/dL (0.2-1.0); TOTAL PROTEIN, SERUM 7.7 g/dL (6.4-8.2)
[2023-05-02] MEDS ORDERED: VANCOMYCIN 1 GM /D5W 250 ML PB IV ONE (14:18)
[2023-05-02] MEDS ORDERED: IV NS 0.9% 1,000 ML IV ONE (14:30)
--- NOTE | 2023-05-02 14:39 | NUR ---
[facility] CALLED LIFE SCIENCE TECHNICIAN PAGED.
--- NOTE | 2023-05-02 14:50 | NUR ---
PT COMES FROM SNF FOR TACHYCARDIA AND FEVER. PT IS A/OX0 BREATHING IS LABORED ARRVIED WITH NRB @15L CRACKLES AUSCULTATED BAILATERALLY. FEVER NOTED WITH RECTAL TEMP PROB AT 102.9 MD MADE AWARE. IN BED SEMI FOWLERS CONNECTED TO BEDSIDE MONITOR. PLACED IN BED WITH SIDE RAILS UP BED LOCKED IN LOWEST POSTION.
--- NOTE | 2023-05-02 15:04 | NUR ---
18G STARTED LFA BLOOD AND CULTURES DRAWN.
--- NOTE | 2023-05-02 15:39 | NUR ---
HANDOFF REPORT GIVEN TO JONO MONET FOR INPATIENT SERVICES.
--- NOTE | 2023-05-02 16:15 | NUR ---
MORTGAGE BRANCH MANAGER5TH GRADE TEACHER NOTE PT ARRIVED VIA ER GURNEY. PT OBTUNDED, NONVERBAL, CONTRACTED. ON NASAL CANNULA 4L O2 ABOVE 92%. PT HAS IV ON LEFT FOREARM 18 GUAGE, R FOREARM 20 GUAGE. IV INTACT, PATENT AND FLUSHING WELL. PT NOTED TO HAVE MULTIPLE WOUNDS ON SACRAL AREA, BACK DISCOLORATION, SCABS, REDNESS, OPEN WOUNDS ON TOE AND FOOT. ON EXTERNAL BUILDING WRECKER. ALL SAFETY MEASURES IN PLACE. BED LOCKED IN LOWEST POSITION. SIDE RAILS UP X2. BED ALARM ON
--- NOTE | 2023-05-02 16:20 | NUR ---
RN NOTE PT HAS GTUB, CLAMPED
[2023-05-02 16:39] LABS: BILIRUBIN,URINE NEGATIVE (NEGATIVE); COLOR,URINE YELLOW (YELLOW); LEUKOCYTE ESTERASE ,URINE NEGATIVE (NEGATIVE); NITRITE, URINE NEGATIVE (NEGATIVE); PROTEIN,URINE 1+ mg/dl (NEGATIVE); UGLUCOSE NEGATIVE (NEGATIVE); UROBILINOGEN,URINE 0.2 EU/dL (0.2)
[2023-05-02 16:56] LABS: WBC,URINE NONE SEEN /HPF (0-3)
[2023-05-02 16:57] LABS: BACTERIA,URINE Few /HPF (None Seen); SQUAMOUS EPITHELIAL CELL,UR Rare /HPF (None Seen)
[2023-05-02 16:58] LABS: RBC,URINE 0-2 /HPF (0-2)
[2023-05-02 16:59] LABS: COARSE GRANULAR CASTS,URINE Rare /LPF (None Seen)
[2023-05-02 17:00] VITALS: BP 106/61; TEMP 100
[2023-05-02] MEDS ORDERED: MAG HYDROX/AL HYDROX/SIMETH 30 ML UDC PO PRN (18:00)
[2023-05-02] MEDS ORDERED: ONDANSETRON HCL/PF 4 MG/2 ML VIAL IVP PRN (18:00)
[2023-05-02] MEDS ORDERED: ACETAMINOPHEN 325 MG TABLET PO PRN (18:00)
[2023-05-02] MEDS ORDERED: ZOLPIDEM TARTRATE 5 MG TABLET PO PRN (18:00)
[2023-05-02] MEDS ORDERED: Z GUARD REMEDY 4 OZ OINT TP PRN (18:00)
[2023-05-02] MEDS ORDERED: MAGNESIUM HYDROXIDE 30 ML UDC PO PRN (18:00)
[2023-05-02] MEDS: IV NS 0.9% 1,000 ML IV PRN (18:04)
--- NOTE | 2023-05-02 18:45 | NUR ---
RN NOTE PT NOTED TO HAVE FEVER 100.0 COOLING MEASURES IMPLEMENTED. RECHECKED TEMP 98.6
--- NOTE | 2023-05-02 19:36 | NUR ---
MI RN CLOSING NOTE PT OBTUNDED, NONVERBAL, CONTRACTED. ON NASAL CANNULA 4L O2 AT 94%. NO SIGNS OF PAIN OR DISCOMFORT NOTED AT THIS TIME.PT HAS IV ON LEFT FOREARM 18 GUAGE, R FOREARM 20 GUAGE. IV INTACT, PATENT AND FLUSHING WELL. PT NOTED TO HAVE MULTIPLE WOUNDS ON SACRAL AREA, BACK DISCOLORATION, SCABS, REDNESS, OPEN WOUNDS ON TOE AND FOOT. WOUND CARE PICTURES DONE. ORDERED WOUND CARE CONSULT.ON EXTERNAL REAMER HAND SINUS TACHYCARDIA AT THIS TIME. ALL SAFETY MEASURES IN PLACE. BED LOCKED IN LOWEST POSITION. SIDE RAILS UP X2. BED ALARM ON.ENDORSED TO POWER REACTOR SUPERVISOR RN FOR CONTUITY OF CARE
[2023-05-02 20:00] VITALS: BP 106/63; TEMP 99.5
--- NOTE | 2023-05-02 20:00 | NUR ---
BINGO CHECKER OPENING NOTES RECEIVED PT IN BED, OBTUNDED, NONVERBAL, CONTRACTED. ON NASAL CANNULA 4L O2 AT 96%. PT HAS IV ON LEFT FOREARM 18 GUAGE WITH NS 75 ML/HR , R FOREARM 20 GUAGE. IV INTACT, PATENT AND FLUSHING WELL. NO S/S OF INFILTRATION NOTED. ON TELE MONITOR SINUS TACHYCARDIA 106 BPM AT THIS TIME. INCONTINENCE CARE GIVEN, REPOSITION FOR COMFORT AND SKIN MANAGEMENT. ALL SAFETY MEASURES IN PLACE. BED LOCKED IN LOWEST POSITION. SIDE RAILS UP X2. BED ALARM ON. WILL CONTINUE TO MONITOR
[2023-05-02] MEDS: CEFEPIME 2 GM in IV D5W 100 ML IV SCH (21:09)
[2023-05-02] MEDS: ENOXAPARIN SODIUM 40 MG/0.4 ML DISP.SYRIN SQ SCH (21:10)
[2023-05-03] VITALS: BP 112/67; TEMP 98.6
[2023-05-03] MEDS: VANCOMYCIN 500 MG in IV D5W 100ml IV SCH ×2 (01:42→13:00)
--- NOTE | 2023-05-03 03:00 | NUR ---
TOSSER NOTE NOTED PT IS WITH PRODUCTIVE COUGH BUT UNABLE TO CLEAR HIS THROAT. SUCTION DONE. NOTED MODERATE THICK LIGHT YELLOWISH SECRETIONS.
[2023-05-03 04:00] VITALS: BP 123/73; TEMP 98.8
--- NOTE | 2023-05-03 06:32 | NUR ---
SUPPOSITORY MOLDING MACHINE OPERATOR CLOSING NOTE PT CONTINUE WITH PRODUCTIVE COUGH, SUCTION DONE, THICK MODERATE SECRETION NOTED. NO S/S OF PAIN. KEEP PT DRY AND CLEAN. IV FLUIDS RUNNING WELL, NO S/S OF INFILTRATION NOTED. SIDE RAILS UP, CALL LIGHT WITHIN REACH, WILL ENDORSE TO DAY SHIFT NURSE FOR CONTINUITY OF CARE.
[2023-05-03 06:45] LABS: BASOPHILS % (AUTO) 0.1 % (0.0-2.0); EOSINOPHILS % (AUTO) 0.3 % (0.0-6.0); HEMATOCRIT 26 % (39-51); HEMOGLOBIN 8.2 g/dL (13.5-17.5); LYMPHOCYTES # (AUTO) 0.4 K/uL (0.8-4.8); LYMPHOCYTES % (AUTO) 4.6 % (20.0-44.0); MEAN CORPUSCULAR HGB CONC 32 g/dl (31.0-36.0); MEAN CORPUSCULAR VOLUME 78 fL (80-96); MONOCYTES # (AUTO) 0.5 K/uL (0.1-1.30); NEUTROPHILS # (AUTO) 7.5 K/uL (1.8-8.9); PLATELET COUNT (AUTO) 308 K/uL (150-450); RED BLOOD CELL COUNT(AUTO) 3.35 MIL/uL (4.5-6.0); WHITE BLOOD COUNT (AUTO) 8.5 K/uL (4.3-11.0)
--- NOTE | 2023-05-03 07:05 | NUR ---
ICEBOX WORKER OPEN NOTE: OBTUNDED. ALERT X0. ON 02 4 LITERS NASAL CANNULA. UNLABORED BREATHING. MOUTH OPEN, AND MOUTH BREATHER. FIELD CROP FARMING SUPERVISOR SINUS RHYTHM 62. LEFT FOREARM IV SALINE LOCKED WITH NO S/S OF COMPLICATIONS. RIGHT FOREARM IV G20 WITH IVF OF NS 75 ML/HR. IV SITE PATENT. NPO. HOB ELEVATED. BILATERAL HALF SIDE RAILS UP X2. BED IN LOW POSITION, LOCKED, AND EXIT ALARM ON. CALL LIGHT IN REACH. NO S/S OF PAIN.
[2023-05-03 07:12] LABS: CALCIUM, SERUM 8.6 mg/dL (8.5-10.1); CREATININE 0.9 mg/dL (0.6-1.3); PHOSPHORUS 3.1 mg/dL (2.5-4.9); POTASSIUM 3.7 mmol/L (3.5-5.1)
[2023-05-03] MEDS ORDERED: PANTOPRAZOLE 40 MG TABLET.DR PO SCH (07:30)
[2023-05-03 08:00] VITALS: BP 104/62; TEMP 98.1
--- NOTE | 2023-05-03 08:00 | NUR ---
SPOKE TO DIETARY AND INFORMED THAT DIETARY EVAL STILL PENDING, PER DIETARY WILL DO.
[2023-05-03] MEDS: PANTOPRAZOLE 40 MG VIAL IV SCH (08:20)
[2023-05-03] MEDS: CEFEPIME 2 GM in IV D5W 100 ML IV SCH ×2 (08:20→20:43)
[2023-05-03] MEDS: IV NS 0.9% 1,000 ML IV PRN (10:05)
[2023-05-03] MEDS: IPRATROPIUM NEB FS 0.5 MG/2.5 ML AMPUL.NEB NEB SCH ×3 (10:26→20:28)
[2023-05-03] MEDS: ALBUTEROL HALF STRENGTH 1.25 MG/3 ML VIAL.NEB NEB SCH ×3 (10:26→20:28)
[2023-05-03 12:00] VITALS: BP 106/61; TEMP 98
[2023-05-03] MEDS ORDERED: Medication Not On Formulary EA (Ipratropium/Albuterol Sulfate (Duoneb 2.5-0.5 Mg/3 Ml So IH PRN (15:30)
[2023-05-03] MEDS ORDERED: BISACODYL SUPP (10 MG) 10 MG/SUPP.RECT SUPP.RECT RC PRN (15:30)
[2023-05-03] MEDS ORDERED: MAGNESIUM HYDROXIDE 30 ML UDC GT PRN (15:30)
[2023-05-03] MEDS ORDERED: POLYETHYLENE GLYCOL 3350 17 GM POWD.PACK GT PRN (15:30)
[2023-05-03] MEDS ORDERED: POLYVINYL ALCOHOL 15 ML BOTTLE EACHEYE PRN (15:30)
[2023-05-03] MEDS ORDERED: ACETAMINOPHEN ES 500 MG TABLET GT PRN (15:30)
[2023-05-03] MEDS ORDERED: CLONIDINE HCL 0.1 MG TABLET GT PRN (15:30)
[2023-05-03 16:00] VITALS: BP 101/67; TEMP 97.7
[2023-05-03] MEDS ORDERED: ALBUTEROL FS 2.5 MG/0.5 ML VIAL.NEB NEB PRN (16:00)
[2023-05-03] MEDS ORDERED: IPRATROPIUM NEB FS 0.5 MG/2.5 ML AMPUL.NEB NEB PRN (16:00)
[2023-05-03] MEDS ORDERED: Medication Not On Formulary EA (Ipratropium/Albuterol Sulfate (Duoneb 2.5-0.5 Mg/3 Ml So IH SCH (18:00)
[2023-05-03] MEDS: PROSOURCE / PROSTAT (PYXIS) 30 ML UDC GT SCH (18:13)
--- NOTE | 2023-05-03 18:55 | NUR ---
MEDICAL TRANSPORT SPECIALIST CLOSING NOTE: OBTUNDED. ALERT X0. ON 02 4 LITERS NASAL CANNULA. UNLABORED BREATHING. MOUTH OPEN, AND MOUTH BREATHER. GERICARE AIDE SINUS RHYTHM 84. LEFT FOREARM IV SALINE LOCKED WITH NO S/S OF COMPLICATIONS. RIGHT FOREARM IV G20 WITH IVF OF NS 75 ML/HR. IV SITE PATENT. NPO. HOB ELEVATED. BILATERAL HALF SIDE RAILS UP X2. BED IN LOW POSITION, LOCKED, AND EXIT ALARM ON. CALL LIGHT IN REACH. NO S/S OF PAIN. KEPT CLEAN AND COMFORTABLE. TURNED AND REPOSITIONED.
[2023-05-03 20:00] VITALS: BP 129/93; TEMP 98.3
--- NOTE | 2023-05-03 20:00 | NUR ---
THERMO CEMENTING FOLDER OPERATOR NOTE PT IN BED OBTUNDED. ON 4L NC. NO SOB, NO DISTRESS OR DISCOMFORT NOTED. NO S/S OF PAIN NOTED. PT UPPER AND LOWER EXT'S CONTRACTED. ON TELE SR 67. PT REMAIN NPO, GT INTACT AND PATENT CLAMPED. LFA #18 SL AND RFA #20 G WITH NS INFUSING AT 75 ML/HR, NO S/S OF INFILTRATION NOTED. KEPT HIM DRY AND CLEAN. ALL NEEDS ATTENDED. VSS. CONTINUE TO MONITOR HIM.
[2023-05-03] MEDS: TAMSULOSIN 0.4 MG CAP.SR.24H GT SCH (21:50)
[2023-05-03] MEDS: ATORVASTATIN 40 MG TABLET GT SCH (21:50)
[2023-05-03] MEDS: ENOXAPARIN SODIUM 40 MG/0.4 ML DISP.SYRIN SQ SCH (21:51)
[2023-05-03] MEDS ORDERED: Medication Not On Formulary EA (Melatonin 3 MG) GT SCH (22:00)
[2023-05-03] MEDS: INSULIN GLARGINE, 100 UNIT/ML CARTRIDGE SQ SCH (22:00)
[2023-05-04] VITALS: BP 107/52; TEMP 98
[2023-05-04] MEDS: IV NS 0.9% 1,000 ML IV PRN ×2 (00:20→17:24)
[2023-05-04] MEDS: ALBUTEROL HALF STRENGTH 1.25 MG/3 ML VIAL.NEB NEB SCH ×4 (02:20→19:43)
[2023-05-04] MEDS: IPRATROPIUM NEB FS 0.5 MG/2.5 ML AMPUL.NEB NEB SCH ×4 (02:20→19:43)
[2023-05-04] MEDS: VANCOMYCIN 500 MG in IV D5W 100ml IV SCH (03:40)
[2023-05-04 04:00] VITALS: BP 112/60; TEMP 98.4
--- NOTE | 2023-05-04 06:34 | NUR ---
DIGITAL MARKETING PROGRAM MANAGER NOTE PT IN BED OBTUNDED. NO DISTRESS OR DISCOMFORT NOTED. NO S/S OF PAIN NOTED. IVF NS INFUSING AT 75 ML/HR. NO S/S OF INFILTRATION NOTED. KEPT HIM DRY AND CLEAN. ALL NEEDS ATTENDED. WILL ENDORSE TO DAY SHIFT NURSE FOR CONTINUE TO CARE.
[2023-05-04 06:59] LABS: BASOPHILS % (AUTO) 0.6 % (0.0-2.0); EOSINOPHILS % (AUTO) 0.7 % (0.0-6.0); HEMATOCRIT 24 % (39-51); HEMOGLOBIN 7.7 g/dL (13.5-17.5); LYMPHOCYTES # (AUTO) 0.7 K/uL (0.8-4.8); LYMPHOCYTES % (AUTO) 11.3 % (20.0-44.0); MEAN CORPUSCULAR HGB CONC 32 g/dl (31.0-36.0); MEAN CORPUSCULAR VOLUME 78 fL (80-96); MONOCYTES # (AUTO) 0.6 K/uL (0.1-1.30); MONOCYTES % (AUTO) 9.4 % (2.0-12.0); NEUTROPHILS # (AUTO) 4.7 K/uL (1.8-8.9); PLATELET COUNT (AUTO) 336 K/uL (150-450); RED BLOOD CELL COUNT(AUTO) 3.12 MIL/uL (4.5-6.0)
--- NOTE | 2023-05-04 07:00 | NUR ---
LABORATORY TECHNOLOGIST OPENING NOTES RECEIVED PT IN BED ASLEEP, EASILY AROUSED WITH STIMULI. PT OBTUNDED/NON VERBAL. PT IS CONTRACTED BLE,BUE. ON REGISTERED NURSE MATERNAL CHILD WITH CURRENT READING OF SR @67 BPM. ON O2 INHALATION @ 4LPM VIA NASAL CANNULA AND TOLERATING WELL. PT ON NPO. WITH G TUBE PATENT INTACT,IN PLACE AND NO RESIDUAL NOTED UPON ASSESSMENT. IV ACCESS ON LFA GAUGE 18, RFA GAUGE 20 PATENT INTACT AND INFUSING NS 1L @ 75ML/HR. SAFETY MEASURES MAINTAINED: BED LOCKED AND IN LOWEST POSITION, SIDE RAILS UP X 2. CALL LIGHT IN EASY REACH FOR HELP. WILL MONITOR PT ACCORDINGLY.
[2023-05-04 07:20] LABS: CALCIUM, SERUM 8.6 mg/dL (8.5-10.1); PHOSPHORUS 2.1 mg/dL (2.5-4.9); POTASSIUM 2.9 mmol/L (3.5-5.1)
[2023-05-04 07:51] LABS: CREATININE 0.8 mg/dL (0.6-1.3)
[2023-05-04 08:00] VITALS: BP 100/59; TEMP 97.8
[2023-05-04] MEDS: CEFEPIME 2 GM in IV D5W 100 ML IV SCH ×2 (08:46→21:06)
[2023-05-04] MEDS: FERROUS SULFATE UDC 300 MG/5 ML UDC GT SCH (08:47)
[2023-05-04] MEDS: FUROSEMIDE 40 MG TABLET GT SCH (08:48)
[2023-05-04] MEDS: ACETAMINOPHEN 650 MG/20.3 ML UDC GT SCH (08:48)
[2023-05-04] MEDS: ASPIRIN 81 MG TAB.CHEW GT SCH (08:48)
[2023-05-04] MEDS: MULTIVIT W/MINERALS 1 TAB TABLET GT SCH (08:48)
[2023-05-04] MEDS: PANTOPRAZOLE 40 MG VIAL IV SCH (08:48)
[2023-05-04] MEDS: ZINC SULFATE 220 MG CAPSULE GT SCH (08:48)
[2023-05-04] MEDS: ASCORBIC ACID 500 MG TABLET GT SCH (08:48)
[2023-05-04] MEDS: ACIDOPHILUS/BULGARICUS 1 EACH TAB.CHEW GT SCH (08:48)
[2023-05-04] MEDS: PROSOURCE / PROSTAT (PYXIS) 30 ML UDC GT SCH ×3 (08:49→16:04)
[2023-05-04] MEDS: SILVER SULFADIAZINE CREAM 25 GM TUBE TP SCH (08:56)
[2023-05-04] MEDS ORDERED: PANTOPRAZOLE 40 MG/PACK PACK GT SCH (09:00)
[2023-05-04] MEDS ORDERED: FERROUS SULFATE (325 MG) 325 MG/TAB TABLET PO SCH (09:00)
[2023-05-04] MEDS ORDERED: Medication Not On Formulary EA (Cranberry Extract (Cranberry) 425 MG) GT SCH (09:00)
[2023-05-04] MEDS ORDERED: COLLAGENASE 30 GM TUBE TP SCH (09:00)
[2023-05-04] MEDS ORDERED: Medication Not On Formulary EA (Cran/Vitc/Mannose/Inulin/Brom (Uti-Stat Liquid) 3,875 MG GT SCH (09:00)
[2023-05-04] MEDS: POTASSIUM CL. PREMIX PERIPHER. 50 ML IV SCH ×6 (09:59→15:36)
[2023-05-04 12:00] VITALS: BP 129/59; TEMP 98.3
[2023-05-04] MEDS ORDERED: POTASSIUM CHLORIDE 20 MEQ TAB.PRT.SR PO SCH (13:30)
--- NOTE | 2023-05-04 13:49 | NUR ---
RN NOTES: INFORMED DR SANDOVAL FOR CLARIFICATION OF POTASSIUM PO ORDER. INFORMED DR HUNTLEY PT IS ON NPO AND HAS G TUBE AND WE ARE GIVING MEDS THRU G TUBE. INFORMED DR JAIME HUNTLEY ORDERED POTASSIUM CHLORIDE 60MEQS IV. DR SANDOVAL STATED " JUST FOLLOW DR HUNTLEY'S ORDER AND DC THE K DUR ORDER" ORDERS NOTED ADN CARRIED OUT.
[2023-05-04] MEDS: VANCOMYCIN 0.75 GM in IV D5W 250 ML IV SCH (14:09)
[2023-05-04] MEDS ORDERED: Sodium Phosphate 15 MMOL in IV NS 0.9% 245 ML IV SCH (15:30)
[2023-05-04 16:00] VITALS: BP 105/60; TEMP 98.2
[2023-05-04] MEDS: MUPIROCIN OINT 2% 22 GM TUBE NS SCH (16:03)
--- NOTE | 2023-05-04 18:44 | NUR ---
AUTOMOBILE MECHANIC CLOSING NOTES: PT IN BED OBTUNDED/NON VERBAL MAKE SOUNDS AT TIMES. PT IS CONTRACTED BLE BUE. ON O2 INHALATION @ 4LPM VIA NASAL CANULLA. NO SOB OR CARDIAC DISTRESS NOTED, ON GRIEVANCE AND APPEALS COORDINATOR WITH CURRENT READING SINU RYTHM @74BPM. ORAL SUCTIONING NEEDED NOTED WITH THICK LIGHT YELLOW COLORED SPUTUM. TURNING AND REPOSITIONING Q 2HR AND PRN. MAINTAINED ON NPO. G TUBE INTACT PATENT WITHOUT RESIDUAL.POTASSIUM 2.9 AND REPLACED 6BAGS TODAY. SAFETY MEASURES MAINTAINED: BED LOCKED AND IN LOWEST POSITION, SIDE RAILS UP X 2. CALL LIGHT IN EASY REACH AND WILL ENDORSE TO REGIONAL BUSINESS MANAGER RN FOR CONTINUITY OF CARE.
--- NOTE | 2023-05-04 19:30 | NUR ---
CONTRACT ASSOCIATE MANAGER OPENING NOTES RECEIVED PT IN BED OBTUNDED/NON VERBAL MAKE SOUNDS AT TIMES. PT IS CONTRACTED BLE BUE. ON O2 INHALATION @ 4LPM VIA NASAL CANULA. NO SOB OR CARDIAC DISTRESS NOTED, ON CORRECTIONAL CAPTAIN WITH CURRENT READING SINU RYTHM @ 83 BPM. MAINTAINED ON NPO. G TUBE CLAMPED, INTACT, PATENT, WITHOUT RESIDUAL, PLACEMENT CONFIRMED BY AUSCULTATION. SAFETY MEASURES IN PLACE: BED LOCKED AND IN LOWEST POSITION, SIDE RAILS UP X3. CALL LIGHT WITHIN REACH. WILL CONTINUE TO MONITOR AND ASSIST. Addendum: 05/04/23 at 2316 by BROOKLYNN GONZALEZ RN IV ACCESS LFA #18G, RFA #20G, BOTH PATENT, INTACT, FLUSHING WELL. INFUSING NS @ 75 ML/HR.
[2023-05-04 20:00] VITALS: BP 138/72; TEMP 98.6
--- NOTE | 2023-05-04 20:32 | NUR ---
RN NOTE: TY FROM LAB REPORTED GRAM POSITIVE RODS FROM BLOOD CULTURE. PENSION ADMINISTRATOR SHAHAB TREVINO INFORMED, NO NEW ORDERS.
--- NOTE | 2023-05-04 20:35 | NUR ---
RN NOTE: HGB 7.7, HCT 26. INFORMED RADIATION OFFICER SHAHAB TREVINO AND ASKED IF OKAY TO GIVE LOVENOX FOR TONIGHT, SAID YES.
[2023-05-04] MEDS: TAMSULOSIN 0.4 MG CAP.SR.24H GT SCH (21:08)
[2023-05-04] MEDS: ATORVASTATIN 40 MG TABLET GT SCH (21:08)
[2023-05-04] MEDS: ENOXAPARIN SODIUM 40 MG/0.4 ML DISP.SYRIN SQ SCH (21:15)
[2023-05-04] MEDS: INSULIN GLARGINE, 100 UNIT/ML CARTRIDGE SQ SCH (21:21)
[2023-05-05] VITALS: BP 118/91; TEMP 98.1
[2023-05-05] MEDS: IPRATROPIUM NEB FS 0.5 MG/2.5 ML AMPUL.NEB NEB SCH ×4 (01:36→19:50)
[2023-05-05] MEDS: ALBUTEROL HALF STRENGTH 1.25 MG/3 ML VIAL.NEB NEB SCH ×4 (01:36→19:50)
[2023-05-05] MEDS: VANCOMYCIN 0.75 GM in IV D5W 250 ML IV SCH ×2 (02:28→14:24)
[2023-05-05 04:00] VITALS: BP 100/57; TEMP 98
[2023-05-05 06:25] LABS: BASOPHILS # (AUTO) 0.1 K/uL (0.0-0.2); BASOPHILS % (AUTO) 2.1 % (0.0-2.0); EOSINOPHILS % (AUTO) 3.9 % (0.0-6.0); HEMATOCRIT 27 % (39-51); HEMOGLOBIN 8.6 g/dL (13.5-17.5); LYMPHOCYTES # (AUTO) 0.7 K/uL (0.8-4.8); LYMPHOCYTES % (AUTO) 11.9 % (20.0-44.0); MEAN CORPUSCULAR HGB CONC 32 g/dl (31.0-36.0); MEAN CORPUSCULAR VOLUME 78 fL (80-96); MONOCYTES # (AUTO) 0.6 K/uL (0.1-1.30); MONOCYTES % (AUTO) 10.6 % (2.0-12.0); NEUTROPHILS % (AUTO) 71.5 % (43.0-81.0); PLATELET COUNT (AUTO) 341 K/uL (150-450); RED BLOOD CELL COUNT(AUTO) 3.46 MIL/uL (4.5-6.0); WHITE BLOOD COUNT (AUTO) 5.6 K/uL (4.3-11.0)
[2023-05-05 06:55] LABS: CALCIUM, SERUM 8.9 mg/dL (8.5-10.1); CREATININE 0.7 mg/dL (0.6-1.3); MAGNESIUM 1.9 mg/dL (1.8-2.4); PHOSPHORUS 2.3 mg/dL (2.5-4.9); POTASSIUM 3.2 mmol/L (3.5-5.1)
--- NOTE | 2023-05-05 06:57 | NUR ---
TRAIN BRAKER CLOSING NOTES PT IN BED OBTUNDED/NON VERBAL MAKE SOUNDS AT TIMES. PT IS CONTRACTED BLE BUE. STABLE ON O2 INHALATION @ 3LPM VIA NASAL CANULA. NO SOB OR CARDIAC DISTRESS NOTED, O2 SAT 97%. ON ENVELOPE FOLDER WITH CURRENT READING SR @ 92 BPM. MAINTAINED ON NPO. G TUBE CLAMPED, INTACT, PATENT, WITHOUT RESIDUAL, PLACEMENT CONFIRMED BY AUSCULTATION. ALL CARE PROVIDED AND MEDS TOLERATED WELL. TURNED AND REPOSITIONED PER PROTOCOL. SUCTIONED PRN. SAFETY MEASURES MAINTAINED: BED LOCKED AND IN LOWEST POSITION, SIDE RAILS UP X3. CALL LIGHT WITHIN REACH. WILL ENDORSE DENG TO DAY SHIFT NURSE.
--- NOTE | 2023-05-05 07:00 | NUR ---
RN OPENING NOTES PT IN BED OBTUNDED/NON VERBAL MAKE SOUNDS AT TIMES. PT IS CONTRACTED BLE BUE. STABLE ON O2 INHALATION @ 3LPM VIA NASAL CANULA. NO SOB OR CARDIAC DISTRESS NOTED, O2 SAT 98%. ON ROLL PLUGGER WITH CURRENT READING SR @ 70 BPM. MAINTAINED ON NPO. G TUBE CLAMPED, INTACT, PATENT, WITHOUT RESIDUAL, PLACEMENT CONFIRMED BY AUSCULTATION. ON CONTINUOUS NS AT 75 ML/HR. SAFETY MEASURES MAINTAINED: BED LOCKED AND IN LOWEST POSITION, SIDE RAILS UP X3. CALL LIGHT WITHIN REACH. WILL CONTINUE TO MONITOR.
[2023-05-05 08:00] VITALS: BP 138/69; TEMP 97.6
[2023-05-05] MEDS: PANTOPRAZOLE 40 MG VIAL IV SCH (08:08)
[2023-05-05] MEDS: FERROUS SULFATE UDC 300 MG/5 ML UDC GT SCH (08:09)
[2023-05-05] MEDS: ASCORBIC ACID 500 MG TABLET GT SCH (08:09)
[2023-05-05] MEDS: MULTIVIT W/MINERALS 1 TAB TABLET GT SCH (08:09)
[2023-05-05] MEDS: FUROSEMIDE 40 MG TABLET GT SCH (08:09)
[2023-05-05] MEDS: ZINC SULFATE 220 MG CAPSULE GT SCH (08:09)
[2023-05-05] MEDS: ACIDOPHILUS/BULGARICUS 1 EACH TAB.CHEW GT SCH (08:09)
[2023-05-05] MEDS: ASPIRIN 81 MG TAB.CHEW GT SCH (08:09)
[2023-05-05] MEDS: CEFEPIME 2 GM in IV D5W 100 ML IV SCH ×2 (08:18→21:22)
[2023-05-05] MEDS: ACETAMINOPHEN 650 MG/20.3 ML UDC GT SCH (08:18)
--- NOTE | 2023-05-05 09:02 | NUR ---
WOUND CARE CONSULT: LIMITED CONSULT AT THIS TIME DUE TO PT SLEEPING SOUNDLY. SACRAL SCARRING NOTED AND INTACT DEEP TISSUE INJURY TO LEFT BUTTOCK AREA WITH DISCOLORATION TO BACK AND INNER THIGH REDNESS AND FOOT WOUNDS/DISCOLORATIONS. PT WAS SEEN BY DR REARDON FOR LOWER EXTREMITIES. DR JONES CALLED FOR SURGICAL CONSULT. DISCUSSED SKIN PROTECTION WITH NURSING STAFF. PT IS ON [facility] LOW AIRLOSS BED. MD IN AGREEMENT WITH PLAN OF CARE.
[2023-05-05] MEDS: SILVER SULFADIAZINE CREAM 25 GM TUBE TP SCH (09:12)
[2023-05-05] MEDS: MUPIROCIN OINT 2% 22 GM TUBE NS SCH ×2 (09:12→16:21)
[2023-05-05] MEDS: PROSOURCE / PROSTAT (PYXIS) 30 ML UDC GT SCH ×3 (10:21→16:52)
[2023-05-05] MEDS: GLUCERNA 1.2 1,000 ML BOTTLE NG PRN (10:22)
[2023-05-05] MEDS: IV NS 0.9% 1,000 ML IV PRN (10:28)
[2023-05-05] MEDS: POTASSIUM CHLORIDE 20 MEQ POWDER PACKET NG SCH ×2 (11:34→12:22)
[2023-05-05 12:00] VITALS: BP 130/77; TEMP 98
[2023-05-05 16:00] VITALS: BP 126/68; TEMP 98.6
[2023-05-05] MEDS ORDERED: Sodium Phosphate 15 MMOL in IV NS 0.9% 245 ML IV SCH (16:00)
[2023-05-05] MEDS: Potassium Chloride 20 MEQ in IV NS 0.9% 1,000 ML IV SCH (16:52)
--- NOTE | 2023-05-05 19:40 | NUR ---
VISUAL BASIC DEVELOPER CLOSING NOTES PT IN BED OBTUNDED/NON VERBAL MAKE SOUNDS AT TIMES. PT IS CONTRACTED BLE BUE. STABLE ON O2 INHALATION @ 3LPM VIA NASAL CANULA. NO SOB OR CARDIAC DISTRESS NOTED, O2 SAT 99%. ON TOMOGRAPHY TECHNOLOGIST WITH CURRENT READING SR @ 98 BPM. ON G-TUBE GLUCERNA 1.2 AT 60 ML/HR TUBE, TOLERATING WELL, PATENT, WITHOUT RESIDUAL, PLACEMENT CONFIRMED BY AUSCULTATION. WOUND CARE PROVIDED PER MD ORDER. ALL CARE PROVIDED AND MEDS TOLERATED WELL. MAINTAINED HEAD OF BED ELEVATED, TURNED AND REPOSITIONED PER PROTOCOL. SUCTIONED PRN. SAFETY MEASURES MAINTAINED, BED LOCKED AND IN LOWEST POSITION, SIDE RAILS UP X3. CALL LIGHT WITHIN REACH. REPORT GIVEN TO HOME HEALTH CLINICIAN NURSE FOR CONTINUING OF CARE.
--- NOTE | 2023-05-05 19:41 | NUR ---
RESAW TAILER OPENING NOTES - RECEIVED PATIENT AWAKE, HOB IN SEMI-HONG'S. NON-VERBAL AND OBTUNDED. MOVEMENTS NOTED ON TACTILE STIMULATION. ON O2 AT 3LPM VIA NASAL CANULA. BREATHING EVEN AND NON-LABORED. BILATERAL UPPER AND LOWER EXTREMITIES ARE CONTRACTED. NO S/S OF PAIN NOTED AT THIS TIME. ON TELE MONITOR READING SINUS TACHYCARDIA AT 102 BPM. HAS THE FF IV ACCESS: LEFT FOREARM #18G WITH SODIUM PHOSPHATE RUNNING AT 63.33 ML/HR AND LEFT UPPER ARM #20G WITH POTASSIUM 20MEQ IN NS RUNNING AT 75 ML/HR. NO S/S OF INFILTRATION NOTED. HAS PEG TUBE WITH GLUCERNA 1.2 RUNNING AT 60 ML/HR. HAS DUENAS CATHETER DRAINING URINE TO BAG BY GRAVITY. SAFETY PRECAUTIONS IN PLACE: BED LOCKED AND IN LOW POSITION, SIDE RAILS UP X3, CALL LIGHT WITHIN REACH. WILL CONTINUE PLAN OF CARE.
[2023-05-05] MEDS: ENOXAPARIN SODIUM 40 MG/0.4 ML DISP.SYRIN SQ SCH (21:25)
[2023-05-05] MEDS: TAMSULOSIN 0.4 MG CAP.SR.24H GT SCH (22:06)
[2023-05-05] MEDS: ATORVASTATIN 40 MG TABLET GT SCH (22:07)
[2023-05-05] MEDS: INSULIN GLARGINE, 100 UNIT/ML CARTRIDGE SQ SCH (22:31)
[2023-05-05 22:45] VITALS: BP 107/60; TEMP 97.9
[2023-05-06] MEDS: ALBUTEROL HALF STRENGTH 1.25 MG/3 ML VIAL.NEB NEB SCH ×4 (01:08→19:43)
[2023-05-06] MEDS: IPRATROPIUM NEB FS 0.5 MG/2.5 ML AMPUL.NEB NEB SCH ×4 (01:08→19:43)
[2023-05-06 01:50] VITALS: BP 119/71; TEMP 98.3
[2023-05-06] MEDS: VANCOMYCIN 0.75 GM in IV D5W 250 ML IV SCH (02:00)
--- NOTE | 2023-05-06 02:58 | NUR ---
HOLD VANCO DOSE PER [facility] PHARMACIST SINCE VANCO TROUGH IS 22. Addendum: 05/06/23 at 300 by April MELINA MONET INCORRECT PATIENT Addendum: 05/06/23 at 300 by April MELINA MONET CORRECT PATIENT
[2023-05-06 04:30] VITALS: BP 144/83; TEMP 97.8
[2023-05-06] MEDS: GLUCERNA 1.2 1,000 ML BOTTLE NG PRN (05:06)
[2023-05-06] MEDS: Potassium Chloride 20 MEQ in IV NS 0.9% 1,000 ML IV SCH ×2 (05:46→20:36)
--- NOTE | 2023-05-06 06:41 | NUR ---
TESTING CONSULTANT CLOSING NOTES - PATIENT RESTING, HOB KEPT AT 40 DEGREES AT ALL TIMES. SATURATING AT 96% ON 2LPM. NOT IN CARDIAC OR RESPIRATORY DISTRESS. DIAPHORETIC BUT AFEBRILE. TELE MONITOR SHOWS SINUS RHYTHM AND SINUS TACHYCARDIA AT 98-108 BPM. LEFT HAND AND LEFT UPPER ARM IV ACCESS INTACT, PATENT AND FLUSHING. TOLERATING G-TUBE FEEDING WELL, NO RESIDUAL. CLEAR YELLOW URINE OUTPUT NOTED. PERINEAL AND SKIN CARE RENDERED. ORAL SUCTION DONE NEEDED. ALL DUE MEDS GIVEN. NEEDS ATTENDED AND ANTICIPATED. SAFETY PRECAUTIONS MAINTAINED. WILL ENDORSE TO AM RN FOR DENG.
[2023-05-06 06:52] LABS: BASOPHILS # (AUTO) 0.1 K/uL (0.0-0.2); BASOPHILS % (AUTO) 1.3 % (0.0-2.0); EOSINOPHILS % (AUTO) 3.3 % (0.0-6.0); HEMATOCRIT 29 % (39-51); HEMOGLOBIN 9.4 g/dL (13.5-17.5); LYMPHOCYTES # (AUTO) 0.9 K/uL (0.8-4.8); LYMPHOCYTES % (AUTO) 10.9 % (20.0-44.0); MEAN CORPUSCULAR HGB CONC 32 g/dl (31.0-36.0); MEAN CORPUSCULAR VOLUME 77 fL (80-96); MONOCYTES # (AUTO) 0.8 K/uL (0.1-1.30); MONOCYTES % (AUTO) 9.5 % (2.0-12.0); NEUTROPHILS # (AUTO) 6.1 K/uL (1.8-8.9); PLATELET COUNT (AUTO) 418 K/uL (150-450); RED BLOOD CELL COUNT(AUTO) 3.81 MIL/uL (4.5-6.0); WHITE BLOOD COUNT (AUTO) 8.1 K/uL (4.3-11.0)
--- NOTE | 2023-05-06 07:00 | NUR ---
RN NOTES RECEIVED PT ON BED, OBTUNDED/NON VERBAL. PT IS CONTRACTED OBIE. LE, ON 2L O2 N/C , O2 SAT WNL, ON TELE ST HR IN 110. TF AT 60CC/HR RUNNING , NO RESIDUAL NOTED, IVF AT 75CC/HR RUNNING , SAFETY MEASURES MAINTAINED: BED LOCKED AND IN LOWEST POSITION, SIDE RAILS UP X3. CALL LIGHT WITHIN REACH. WILL CONTINUE TO MONITOR.
[2023-05-06 07:10] LABS: POTASSIUM 3.7 mmol/L (3.5-5.1)
[2023-05-06 07:20] LABS: CALCIUM, SERUM 8.8 mg/dL (8.5-10.1); CREATININE 0.9 mg/dL (0.6-1.3); PHOSPHORUS 2.6 mg/dL (2.5-4.9); POTASSIUM 3.7 mmol/L (3.5-5.1)
[2023-05-06 08:00] VITALS: BP 152/82; TEMP 98
[2023-05-06] MEDS: FERROUS SULFATE UDC 300 MG/5 ML UDC GT SCH (08:32)
[2023-05-06] MEDS: ASCORBIC ACID 500 MG TABLET GT SCH (08:32)
[2023-05-06] MEDS: ZINC SULFATE 220 MG CAPSULE GT SCH (08:32)
[2023-05-06] MEDS: FUROSEMIDE 40 MG TABLET GT SCH (08:32)
[2023-05-06] MEDS: ASPIRIN 81 MG TAB.CHEW GT SCH (08:32)
[2023-05-06] MEDS: ACETAMINOPHEN 650 MG/20.3 ML UDC GT SCH (08:32)
[2023-05-06] MEDS: PANTOPRAZOLE 40 MG/PACK PACK GT SCH (08:32)
[2023-05-06] MEDS: MULTIVIT W/MINERALS 1 TAB TABLET GT SCH (08:32)
[2023-05-06] MEDS: ACIDOPHILUS/BULGARICUS 1 EACH TAB.CHEW GT SCH (08:32)
[2023-05-06] MEDS: MUPIROCIN OINT 2% 22 GM TUBE NS SCH ×2 (08:33→16:04)
[2023-05-06] MEDS: PROSOURCE / PROSTAT (PYXIS) 30 ML UDC GT SCH ×3 (08:33→16:04)
[2023-05-06] MEDS: SILVER SULFADIAZINE CREAM 25 GM TUBE TP SCH (08:34)
[2023-05-06] MEDS: CEFEPIME 2 GM in IV D5W 100 ML IV SCH ×2 (08:39→21:51)
[2023-05-06] MEDS: VANCOMYCIN 1 GM in IV D5W 250ml IV SCH (10:14)
[2023-05-06 12:00] VITALS: BP 114/75; TEMP 98.9
--- NOTE | 2023-05-06 13:00 | NUR ---
RN NOTES PT STATED FEELS SHORT OF BREATH, CHEWING GUM GIVEN TO PT EARLIER BY FAMILY PER FAMILY. TRACH SUCTIONING DONE, PT STATED FEELS BETTER , O2 SAT WNL , ADVISE PT'S FAMILY NOT TO GIVE ANY FOOD BY MOUTH TO PT . CONTINUE TO MONITOR Addendum: 05/06/23 at 1810 by JULIO PATINO RN DISREGARD ABOVE CHARTING , CHARTED ON WRONG PT .
[2023-05-06 16:00] VITALS: BP 104/64; TEMP 98.6
--- NOTE | 2023-05-06 18:10 | NUR ---
RN NOTES NO SIGNIFICANT CHANGES NOTED ON THIS SHIFT, WILL ENDORSE TO GROCERY STORE CLERK NURSE FOR CONTINUITY OF CARE
--- NOTE | 2023-05-06 19:10 | NUR ---
TELE/RN NOTE Received pt in bed, eyes open, obtunded. No evidence of pain or discomfort at this time. On 2lit O2 via NC, no sob, nad. Afebrile. PIV access on ZONIA #20G patent, flushing well, no s/sx of inf/infiltration, dressing CDI, infusing NS w/ KCL at 75ml/hr, well mina. Valero cath in placed, secured and patent, draining clear yellow urine by gravity. GTube in placed, secured, patent, 0 residual, currently infusing GTF Glucer 1.2 at 60ml/hr, well mina, no N/V. Aspiration precaution implemented. HOB elevated for comfort. Bed locked and in lowest position. Will cont plan of care.
[2023-05-06 20:00] VITALS: BP_SYST 137; BP_SYST 147; BP_DIAS 65; BP_DIAS 81; TEMP 98.5; TEMP 98.6
[2023-05-06] MEDS: ATORVASTATIN 40 MG TABLET GT SCH (21:51)
[2023-05-06] MEDS: TAMSULOSIN 0.4 MG CAP.SR.24H GT SCH (21:51)
[2023-05-06] MEDS: ENOXAPARIN SODIUM 40 MG/0.4 ML DISP.SYRIN SQ SCH (21:52)
[2023-05-06] MEDS: INSULIN GLARGINE, 100 UNIT/ML CARTRIDGE SQ SCH (22:53)
[2023-05-07] VITALS: BP 137/65; TEMP 98.5
[2023-05-07] MEDS: ALBUTEROL HALF STRENGTH 1.25 MG/3 ML VIAL.NEB NEB SCH ×2 (01:57→08:27)
[2023-05-07] MEDS: IPRATROPIUM NEB FS 0.5 MG/2.5 ML AMPUL.NEB NEB SCH ×2 (01:57→08:27)
[2023-05-07] MEDS: VANCOMYCIN 1 GM in IV D5W 250ml IV SCH (03:28)
[2023-05-07] MEDS: GLUCERNA 1.2 1,000 ML BOTTLE NG PRN (03:41)
[2023-05-07 04:00] VITALS: BP 120/80; TEMP 98.7
[2023-05-07 05:52] LABS: BASOPHILS # (AUTO) 0.1 K/uL (0.0-0.2); BASOPHILS % (AUTO) 0.9 % (0.0-2.0); EOSINOPHILS % (AUTO) 10.3 % (0.0-6.0); HEMATOCRIT 29 % (39-51); HEMOGLOBIN 9.2 g/dL (13.5-17.5); LYMPHOCYTES # (AUTO) 1.3 K/uL (0.8-4.8); LYMPHOCYTES % (AUTO) 15.2 % (20.0-44.0); MEAN CORPUSCULAR HGB CONC 32 g/dl (31.0-36.0); MEAN CORPUSCULAR VOLUME 77 fL (80-96); MONOCYTES # (AUTO) 0.6 K/uL (0.1-1.30); NEUTROPHILS # (AUTO) 5.7 K/uL (1.8-8.9); NEUTROPHILS % (AUTO) 66.6 % (43.0-81.0); PLATELET COUNT (AUTO) 369 K/uL (150-450); RED BLOOD CELL COUNT(AUTO) 3.68 MIL/uL (4.5-6.0); WHITE BLOOD COUNT (AUTO) 8.6 K/uL (4.3-11.0)
[2023-05-07 06:18] LABS: CALCIUM, SERUM 8.6 mg/dL (8.5-10.1); CARBON DIOXIDE 31 mmol/L (21-32); CHLORIDE 104 mmol/L (98-107); CREATININE 0.8 mg/dL (0.6-1.3); GLUCOSE 135 mg/dL (74-106); MAGNESIUM 1.8 mg/dL (1.8-2.4); PHOSPHORUS 2.6 mg/dL (2.5-4.9); POTASSIUM 3.9 mmol/L (3.5-5.1); SODIUM SERUM 140 mmol/L (136-145); UREA NITROGEN, BLOOD 19 mg/dL (7-18)
--- NOTE | 2023-05-07 07:11 | NUR ---
TELE/RN NOTE Pt remains in stable condition, no significant changes noted.. Remains on 2lit O2 via NC, no sob, nad. No evidence pain or discomfort at this time. Will endorse to morning shift for continuity of care.
[2023-05-07 08:00] VITALS: BP 116/74; TEMP 98.1
[2023-05-07] MEDS: ASPIRIN 81 MG TAB.CHEW GT SCH (08:27)
[2023-05-07] MEDS: ACIDOPHILUS/BULGARICUS 1 EACH TAB.CHEW GT SCH (08:27)
[2023-05-07] MEDS: ACETAMINOPHEN 650 MG/20.3 ML UDC GT SCH (08:27)
[2023-05-07] MEDS: FERROUS SULFATE UDC 300 MG/5 ML UDC GT SCH (08:28)
[2023-05-07] MEDS: MULTIVIT W/MINERALS 1 TAB TABLET GT SCH (08:28)
[2023-05-07] MEDS: ZINC SULFATE 220 MG CAPSULE GT SCH (08:28)
[2023-05-07] MEDS: PROSOURCE / PROSTAT (PYXIS) 30 ML UDC GT SCH (08:28)
[2023-05-07] MEDS: CEFEPIME 2 GM in IV D5W 100 ML IV SCH (08:28)
[2023-05-07] MEDS: ASCORBIC ACID 500 MG TABLET GT SCH (08:28)
[2023-05-07] MEDS: FUROSEMIDE 40 MG TABLET GT SCH (08:28)
[2023-05-07] MEDS: Potassium Chloride 20 MEQ in IV NS 0.9% 1,000 ML IV SCH (08:28)
[2023-05-07] MEDS: PANTOPRAZOLE 40 MG/PACK PACK GT SCH (08:28)
[2023-05-07] MEDS: MUPIROCIN OINT 2% 22 GM TUBE NS SCH (08:29)
[2023-05-07] MEDS: SILVER SULFADIAZINE CREAM 25 GM TUBE TP SCH (08:29)
--- NOTE | 2023-05-07 09:00 | NUR ---
DR. MCELROY STATE THAT HE [facility]
--- NOTE | 2023-05-07 12:15 | NUR ---
PATIENT DISCHARGED TO [facility] AT 1200, I CALLED AND GAVE REPORT TO CHIKI ORTIZ, PATIENT TRANSFERRED TODAY VIA AMBULANCE, I CALLED THE RICARDO AND INFORMED HER. PATIENT LEFT WITH ZONIA Walter #20 PATIENT WILL HAVE AN IV ANTIBIOTICS AT HOME FOR 2 DAYS AND THEN DC PER THE MEDICATION RECONCILIATION BY DR. NAVI CLEMONS. PATIENT LEFT BY CONDOM CATHETER AND DIAPER CLEAN AND DRY. ALL DISCHARGE PAPER PAPERS ALL PRINTED AND GIVEN TO THE AMBULANCE STAFF TO [facility]IVE IT TO THE NURSE ANGEL AT [facility] [place].
== END 2023-05-07 12:47 | DRG 871 ==
LOC: ER 13:25 → TELE1 15:45 → TELE-TD 17:54 → TELE1 21:03
PROVIDERS: ADMIT Student in an Organized Health Care Education/Training Program; ATTEND Nurse Practitioner Acute Care
DX: A41.9 Sepsis, unspecified organism (principal); G93.41 Metabolic encephalopathy; J69.0 Pneumonitis due to inhalation of food and vomit; J96.01 Acute respiratory failure with hypoxia; R53.2 Functional quadriplegia; E44.0 Moderate protein-calorie malnutrition; E87.1 Hypo-osmolality and hyponatremia; Z99.11 Dependence on respirator [ventilator] status; D68.69 Other thrombophilia; G93.49 Other encephalopathy; Z68.1 Body mass index [BMI] 19.9 or less, adult; E87.20 Acidosis, unspecified; N17.9 Acute kidney failure, unspecified; R64 Cachexia; E78.5 Hyperlipidemia, unspecified; E86.0 Dehydration; I10 Essential (primary) hypertension; Z79.82 Long term (current) use of aspirin; Z79.4 Long term (current) use of insulin; Z86.16 Personal history of COVID-19; Z87.01 Personal history of pneumonia (recurrent); Z22.322 Carrier or suspected carrier of Methicillin resistant Staphylococcus aureus; Z93.1 Gastrostomy status; R13.10 Dysphagia, unspecified; Z74.09 Other reduced mobility; Z20.822 Contact with and (suspected) exposure to COVID-19; K21.9 Gastro-esophageal reflux disease without esophagitis; E11.9 Type 2 diabetes mellitus without complications; R19.7 Diarrhea, unspecified; F09 Unspecified mental disorder due to known physiological condition; E87.6 Hypokalemia; L89.626 Pressure-induced deep tissue damage of left heel; L89.616 Pressure-induced deep tissue damage of right heel; L89.516 Pressure-induced deep tissue damage of right ankle; M24.562 Contracture, left knee; M24.561 Contracture, right knee; S90.812A Abrasion, left foot, initial encounter; S90.811A Abrasion, right foot, initial encounter; X58.XXXA Exposure to other specified factors, initial encounter; Y93.9 Activity, unspecified; Y92.129 Unspecified place in nursing home as the place of occurrence of the external cause; L89.896 Pressure-induced deep tissue damage of other site; L89.226 Pressure-induced deep tissue damage of left hip; L98.8 Other specified disorders of the skin and subcutaneous tissue; F03.90 Unspecified dementia, unspecified severity, without behavioral disturbance, psychotic disturbance, mood disturbance, and anxiety; E88.09 Other disorders of plasma-protein metabolism, not elsewhere classified
CPT/HCPCS: 36415; 71045-TC; 80048-TC; 80076-TC; 80202-TC; 81001; 82962-TC; 83605-TC; 83735-TC; 83880; 84100-TC; 84132-TC; 84295-TC; 84484-TC; 85025-TC; 85730-TC; 87040-TC; 87081-TC; 87086-TC; 94762-TC; 94799-TC; A4223; A4349; A6253; A9563; C9113; G0378; J0692; J1650; J1815; J3370; J3480; J7030; J7050; J7060

== ENCOUNTER 2023-07-11 13:43 | Inpatient (IN) | payer MEDICARE, OTHER ==
[~2023-07-11] VITALS: Ht 170.2 cm; Wt 51.7 kg
[~2023-07-11 13:43] MED LIST changes: +ACET650S26 GT; +CLOT15CR5 TP; +COLL30OI TP; +FURO-144 GT; -HYDR-4303 GT; +IPRA3AMP23 IH; -IPRA4AER IH; +LEVO750T46 GT; -LOPE2TAB25 GT; -MAG30ORA GT; -METO25TA6 PO; -ONDA-97 PO
[2023-07-11] MEDS ORDERED: VANCOMYCIN 1 GM in IV D5W 250 ML IV ONE (14:00)
[2023-07-11] MEDS ORDERED: PIPERACILLIN /TAZOBACTAM 3.375 G in IV D5W 50 ML IV ONE (14:00)
[2023-07-11] MEDS ORDERED: IV NS 0.9% 1,000 ML BAG IV ONE (14:00)
[2023-07-11 14:19] LABS: BASOPHILS # (AUTO) 0.3 K/uL (0.0-0.2); BASOPHILS % (AUTO) 2.5 % (0.0-2.0); EOSINOPHILS # (AUTO) 0.4 K/uL (0.0-0.7); EOSINOPHILS % (AUTO) 3.7 % (0.0-6.0); HEMATOCRIT 32 % (39-51); HEMOGLOBIN 9.6 g/dL (13.5-17.5); LYMPHOCYTES # (AUTO) 1.7 K/uL (0.8-4.8); LYMPHOCYTES % (AUTO) 16.2 % (20.0-44.0); MEAN CORPUSCULAR HEMOGLOBIN 24 PG (26.0-33.0); MEAN CORPUSCULAR HGB CONC 30 g/dl (31.0-36.0); MEAN CORPUSCULAR VOLUME 80 fL (80-96); MONOCYTES # (AUTO) 0.5 K/uL (0.1-1.30); MONOCYTES % (AUTO) 5.1 % (2.0-12.0); NEUTROPHILS # (AUTO) 7.6 K/uL (1.8-8.9); NEUTROPHILS % (AUTO) 72.5 % (43.0-81.0); PLATELET COUNT (AUTO) 449 K/uL (150-450); RED CELL DISTRIBUTION WIDTH 18.8 % (11.5-15.0); WHITE BLOOD COUNT (AUTO) 10.4 K/uL (4.3-11.0)
[2023-07-11 14:27] LABS: APPEARANCE,URINE CLEAR (CLEAR); BILIRUBIN,URINE NEGATIVE (NEGATIVE); BLOOD, URINE NEGATIVE Ery/uL (NEGATIVE); COLOR,URINE YELLOW (YELLOW); KETONES,URINE NEGATIVE (NEGATIVE); LEUKOCYTE ESTERASE ,URINE NEGATIVE (NEGATIVE); NITRITE, URINE NEGATIVE (NEGATIVE); PH,URINE 7.5 (5.0-8.0); PROTEIN,URINE NEGATIVE (NEGATIVE); UGLUCOSE NEGATIVE (NEGATIVE); UROBILINOGEN,URINE 0.2 EU/dL (0.2)
[2023-07-11 14:33] LABS: INR 1.08 (0.91-1.10); PARTIAL THROMBOPLASTIN TIME 24.2 SEC (24.3-34.3); PROTHROMBIN TIME 11.3 SECS (9.2-11.1)
[2023-07-11 14:40] LABS: ALANINE AMINOTRANSFERASE 38 U/L (12-78); ALBUMIN 2.5 g/dL (3.4-5.0); ALKALINE PHOSPHATASE 94 U/L (46-116); ASPARTATE AMINOTRANSFERASE 36 U/L (15-37); BILIRUBIN,DIRECT 0.1 mg/dL (0.0-0.2); BILIRUBIN,TOTAL 0.2 mg/dL (0.2-1.0); CALCIUM, SERUM 8.9 mg/dL (8.5-10.1); CARBON DIOXIDE 35 mmol/L (21-32); CHLORIDE 112 mmol/L (98-107); CREATININE 1.1 mg/dL (0.6-1.3); GLUCOSE 119 mg/dL (74-106); POTASSIUM 3.9 mmol/L (3.5-5.1); SODIUM SERUM 153 mmol/L (136-145); TOTAL PROTEIN, SERUM 7.8 g/dL (6.4-8.2); UREA NITROGEN, BLOOD 55 mg/dL (7-18)
[2023-07-11 14:42] LABS: LACTIC ACID 1.2 mmol/L (0.4-2.0)
[2023-07-11] MEDS ORDERED: ENOX40DI SQ (15:12)
[2023-07-11] MEDS ORDERED: AZIT500V11 IV (15:12)
[2023-07-11] MEDS ORDERED: PANT40SU2 GT (15:12)
[2023-07-11] MEDS ORDERED: GLIP5TAB13 GT (15:12)
[2023-07-11] MEDS ORDERED: ZINC57OI4 TP (15:12)
[2023-07-11] MEDS ORDERED: AMIN30LI2 GT (15:12)
[2023-07-11] MEDS ORDERED: TAMS-12 GT (15:12)
[2023-07-11] MEDS ORDERED: PETR113O TP (15:12)
[2023-07-11] MEDS ORDERED: MAG30ORA GT (15:12)
[2023-07-11] MEDS ORDERED: MULT-213 GT (15:12)
[2023-07-11] MEDS ORDERED: ACET-3511 GT (15:12)
[2023-07-11] MEDS ORDERED: HYDR-4303 GT (15:12)
[2023-07-11] MEDS ORDERED: CEFT2VIA14 IV (15:12)
[2023-07-11] MEDS ORDERED: ONDA4AMP IV (15:12)
[2023-07-11] MEDS ORDERED: ACETAMINOPHEN 650 MG/SUPP.RECT RC ONE ×2 (15:28→15:30)
[2023-07-11] MEDS ORDERED: IV NS 0.9% 1,000 ML IV ONE (15:30)
[2023-07-11] MEDS ORDERED: POLYETHYLENE GLYCOL 3350 17 GM POWD.PACK GT PRN (16:30)
[2023-07-11] MEDS ORDERED: ACETAMINOPHEN 325 MG TABLET PO PRN (16:30)
[2023-07-11] MEDS ORDERED: Z GUARD REMEDY 4 OZ OINT TP PRN (16:30)
[2023-07-11] MEDS ORDERED: BISACODYL SUPP (10 MG) 10 MG/SUPP.RECT SUPP.RECT RC PRN (16:30)
[2023-07-11] MEDS ORDERED: ONDANSETRON HCL/PF 4 MG/2 ML VIAL IVP PRN (16:30)
[2023-07-11] MEDS ORDERED: MAGNESIUM HYDROXIDE 30 ML UDC GT PRN (16:30)
[2023-07-11] MEDS ORDERED: HYDROCODONE/APAP 5/325MG TABLET GT PRN (16:30)
[2023-07-11] MEDS ORDERED: MAG HYDROX/AL HYDROX/SIMETH 30 ML UDC GT PRN (16:30)
[2023-07-11] MEDS ORDERED: MAG HYDROX/AL HYDROX/SIMETH 30 ML UDC PO PRN (16:30)
[2023-07-11] MEDS ORDERED: MAGNESIUM HYDROXIDE 30 ML UDC PO PRN (16:30)
[2023-07-11] MEDS ORDERED: DEXTROSE 50%-WATER 50 ML DISP.SYRIN IV PRN ×2 (16:30)
[2023-07-11] MEDS ORDERED: ZOLPIDEM TARTRATE 5 MG TABLET PO PRN (16:30)
[2023-07-11] MEDS ORDERED: INSULIN REGULAR, HUMAN 100 UNIT/ML 3 ML VIAL SQ PRN (16:30)
[2023-07-11] MEDS ORDERED: NOREPINEPHRINE 32 MG in IV NS 0.9% 218 ML IV PRN (17:00)
[2023-07-11] MEDS ORDERED: BLOOD SUGAR DIAGNOSTIC 1 EACH STRIP IN SCH (17:30)
[2023-07-11] MEDS ORDERED: PIPERACILLIN /TAZOBACTAM 3.375 G in IV D5W 50 ML IV SCH (18:00)
[2023-07-11] MEDS ORDERED: ALBUTEROL FS 2.5 MG/0.5 ML VIAL.NEB NEB PRN (20:30)
[2023-07-11] MEDS ORDERED: NOREPINEPHRINE 8 MG in IV NS 0.9% 250ML IV PRN (20:30)
[2023-07-11] MEDS ORDERED: IPRATROPIUM NEB FS 0.5 MG/2.5 ML AMPUL.NEB NEB PRN (20:30)
[2023-07-11] MEDS: PROSOURCE / PROSTAT (PYXIS) 30 ML UDC GT SCH (21:50)
[2023-07-11 22:00] VITALS: BP 112/64; O2SAT 97
[2023-07-11] MEDS: BLOOD SUGAR DIAGNOSTIC 1 EACH STRIP IN SCH (22:00)
[2023-07-11] MEDS: IV NS 0.9% 1,000 ML IV PRN (22:19)
[2023-07-11] MEDS: PIPERACILLIN /TAZOBACTAM 3.375 G in IV D5W 100 ML IV SCH (22:20)
[2023-07-11] MEDS: ATORVASTATIN 40 MG TABLET GT SCH (22:23)
[2023-07-11] MEDS: TAMSULOSIN 0.4 MG CAP.SR.24H GT SCH (22:24)
[2023-07-11 23:00] VITALS: BP 104/62; O2SAT 97
[2023-07-12] VITALS (31 sets, daily range): BP systolic 85–117; BP diastolic 59–74; TEMP 97.5–97.8; O2SAT 97–100
[2023-07-12] MEDS: VANCOMYCIN 500 MG in IV D5W 100 ML IV SCH ×2 (01:21→13:39)
[2023-07-12] MEDS: ALBUTEROL FS 2.5 MG/0.5 ML VIAL.NEB NEB SCH ×4 (01:30→19:57)
[2023-07-12] MEDS: IPRATROPIUM NEB FS 0.5 MG/2.5 ML AMPUL.NEB NEB SCH ×4 (01:30→19:57)
[2023-07-12] MEDS: PIPERACILLIN /TAZOBACTAM 3.375 G in IV D5W 100 ML IV SCH ×3 (05:03→21:15)
[2023-07-12 05:13] LABS: BASOPHILS # (AUTO) 0.2 K/uL (0.0-0.2); BASOPHILS % (AUTO) 2.4 % (0.0-2.0); EOSINOPHILS # (AUTO) 0.3 K/uL (0.0-0.7); EOSINOPHILS % (AUTO) 4.9 % (0.0-6.0); HEMATOCRIT 23 % (39-51); HEMOGLOBIN 7.1 g/dL (13.5-17.5); LYMPHOCYTES # (AUTO) 0.8 K/uL (0.8-4.8); LYMPHOCYTES % (AUTO) 12.2 % (20.0-44.0); MEAN CORPUSCULAR HEMOGLOBIN 24 PG (26.0-33.0); MEAN CORPUSCULAR HGB CONC 31 g/dl (31.0-36.0); MEAN CORPUSCULAR VOLUME 79 fL (80-96); MONOCYTES # (AUTO) 0.4 K/uL (0.1-1.30); MONOCYTES % (AUTO) 5.9 % (2.0-12.0); NEUTROPHILS % (AUTO) 74.6 % (43.0-81.0); PLATELET COUNT (AUTO) 303 K/uL (150-450); RED BLOOD CELL COUNT(AUTO) 2.91 MIL/uL (4.5-6.0); RED CELL DISTRIBUTION WIDTH 18.7 % (11.5-15.0); WHITE BLOOD COUNT (AUTO) 6.7 K/uL (4.3-11.0)
[2023-07-12 05:24] LABS: ALANINE AMINOTRANSFERASE 22 U/L (12-78); ALBUMIN 1.7 g/dL (3.4-5.0); ALKALINE PHOSPHATASE 71 U/L (46-116); ASPARTATE AMINOTRANSFERASE 21 U/L (15-37); BILIRUBIN,TOTAL 0.4 mg/dL (0.2-1.0); CALCIUM, SERUM 7.1 mg/dL (8.5-10.1); CARBON DIOXIDE 26 mmol/L (21-32); CHLORIDE 118 mmol/L (98-107); CREATININE 0.7 mg/dL (0.6-1.3); GLUCOSE 183 mg/dL (74-106); PHOSPHORUS 2.9 mg/dL (2.5-4.9); POTASSIUM 3.2 mmol/L (3.5-5.1); SODIUM SERUM 151 mmol/L (136-145); TOTAL PROTEIN, SERUM 5.5 g/dL (6.4-8.2); UREA NITROGEN, BLOOD 36 mg/dL (7-18)
[2023-07-12] MEDS: IV NS 0.9% 1,000 ML IV PRN ×3 (05:38→21:29)
[2023-07-12] MEDS: BLOOD SUGAR DIAGNOSTIC 1 EACH STRIP IN SCH ×4 (07:48→21:26)
[2023-07-12] MEDS: ASPIRIN 81 MG TAB.CHEW GT SCH (08:57)
[2023-07-12] MEDS: MULTIVIT W/MINERALS 1 TAB TABLET GT SCH (08:58)
[2023-07-12] MEDS: ACIDOPHILUS/BULGARICUS 1 EACH TAB.CHEW GT SCH (08:58)
[2023-07-12] MEDS: PANTOPRAZOLE 40 MG/PACK PACK GT SCH (08:58)
[2023-07-12] MEDS: glipiZIDE 5 MG TABLET GT SCH (08:58)
[2023-07-12] MEDS: ASCORBIC ACID 500 MG TABLET GT SCH (08:58)
[2023-07-12] MEDS: FERROUS SULFATE UDC 300 MG/5 ML UDC GT SCH (08:58)
[2023-07-12] MEDS: PROSOURCE / PROSTAT (PYXIS) 30 ML UDC GT SCH ×2 (08:59→17:09)
[2023-07-12] MEDS ORDERED: Medication Not On Formulary EA (Cranberry Extract (Cranberry) 425 MG) GT SCH (09:00)
[2023-07-12] MEDS: ENOXAPARIN SODIUM 40 MG/0.4 ML DISP.SYRIN SQ SCH (09:00)
[2023-07-12] MEDS ORDERED: Medication Not On Formulary EA (Amino Acids/Protein Hydrolys (Pro-Stat Liquid) 30 ML) GT SCH (09:00)
[2023-07-12] MEDS ORDERED: ACETAMINOPHEN LIQUID 325 MG/10.1 ML UDC GT SCH (09:00)
[2023-07-12] MEDS: POTASSIUM CL. PREMIX PERIPHER. 50 ML IV SCH ×4 (09:58→13:12)
[2023-07-12] MEDS: ACETAMINOPHEN 650 MG/20.3 ML UDC GT SCH (10:02)
[2023-07-12] MEDS ORDERED: GLUCERNA 1.2 1,000 ML BOTTLE NG PRN ×2 (11:00→11:30)
[2023-07-12] MEDS: GLUCERNA 1.2 1,000 ML BOTTLE NG PRN (12:36)
[2023-07-12] MEDS: INSULIN REGULAR, HUMAN 100 UNIT/ML 3 ML VIAL SQ PRN ×2 (13:12→21:26)
[2023-07-12] MEDS: TAMSULOSIN 0.4 MG CAP.SR.24H GT SCH (21:14)
[2023-07-12] MEDS: ATORVASTATIN 40 MG TABLET GT SCH (21:14)
[2023-07-13] VITALS (32 sets, daily range): BP systolic 89–118; BP diastolic 60–82; TEMP 97.7–98.7; O2SAT 98–100
[2023-07-13] MEDS: ALBUTEROL FS 2.5 MG/0.5 ML VIAL.NEB NEB SCH ×4 (01:58→19:26)
[2023-07-13] MEDS: IPRATROPIUM NEB FS 0.5 MG/2.5 ML AMPUL.NEB NEB SCH ×4 (01:58→19:26)
[2023-07-13] MEDS: VANCOMYCIN 500 MG in IV D5W 100 ML IV SCH (03:59)
[2023-07-13] MEDS: PIPERACILLIN /TAZOBACTAM 3.375 G in IV D5W 100 ML IV SCH ×3 (05:24→21:32)
[2023-07-13 05:59] LABS: BASOPHILS # (AUTO) 0.1 K/uL (0.0-0.2); BASOPHILS % (AUTO) 2.7 % (0.0-2.0); EOSINOPHILS # (AUTO) 0.3 K/uL (0.0-0.7); EOSINOPHILS % (AUTO) 6.4 % (0.0-6.0); HEMATOCRIT 23 % (39-51); HEMOGLOBIN 7.2 g/dL (13.5-17.5); LYMPHOCYTES # (AUTO) 0.8 K/uL (0.8-4.8); LYMPHOCYTES % (AUTO) 15.4 % (20.0-44.0); MEAN CORPUSCULAR HEMOGLOBIN 25 PG (26.0-33.0); MEAN CORPUSCULAR HGB CONC 31 g/dl (31.0-36.0); MEAN CORPUSCULAR VOLUME 80 fL (80-96); MONOCYTES # (AUTO) 0.3 K/uL (0.1-1.30); MONOCYTES % (AUTO) 6.4 % (2.0-12.0); NEUTROPHILS # (AUTO) 3.6 K/uL (1.8-8.9); NEUTROPHILS % (AUTO) 69.1 % (43.0-81.0); PLATELET COUNT (AUTO) 312 K/uL (150-450); RED BLOOD CELL COUNT(AUTO) 2.88 MIL/uL (4.5-6.0); RED CELL DISTRIBUTION WIDTH 18.4 % (11.5-15.0); WHITE BLOOD COUNT (AUTO) 5.2 K/uL (4.3-11.0)
[2023-07-13] MEDS: IV NS 0.9% 1,000 ML IV PRN (06:02)
[2023-07-13 06:09] LABS: ALANINE AMINOTRANSFERASE 19 U/L (12-78); ALBUMIN 1.7 g/dL (3.4-5.0); ALKALINE PHOSPHATASE 72 U/L (46-116); ASPARTATE AMINOTRANSFERASE 16 U/L (15-37); BILIRUBIN,TOTAL 0.3 mg/dL (0.2-1.0); CALCIUM, SERUM 7.5 mg/dL (8.5-10.1); CARBON DIOXIDE 24 mmol/L (21-32); CHLORIDE 119 mmol/L (98-107); CREATININE 0.7 mg/dL (0.6-1.3); GLUCOSE 187 mg/dL (74-106); MAGNESIUM 2.1 mg/dL (1.8-2.4); PHOSPHORUS 2.6 mg/dL (2.5-4.9); POTASSIUM 3.9 mmol/L (3.5-5.1); SODIUM SERUM 149 mmol/L (136-145); TOTAL PROTEIN, SERUM 5.4 g/dL (6.4-8.2); UREA NITROGEN, BLOOD 27 mg/dL (7-18)
[2023-07-13 06:12] LABS: CREATINE KINASE, TOTAL 70 U/L (39-308)
[2023-07-13] MEDS: BLOOD SUGAR DIAGNOSTIC 1 EACH STRIP IN SCH ×4 (08:25→22:18)
[2023-07-13] MEDS: INSULIN REGULAR, HUMAN 100 UNIT/ML 3 ML VIAL SQ PRN ×3 (08:27→22:19)
[2023-07-13] MEDS ORDERED: IV 1/2NS 1000 ML 1,000 ML IV PRN (09:00)
[2023-07-13] MEDS: ENOXAPARIN SODIUM 40 MG/0.4 ML DISP.SYRIN SQ SCH (09:00)
[2023-07-13] MEDS: FERROUS SULFATE UDC 300 MG/5 ML UDC GT SCH (09:47)
[2023-07-13] MEDS: ASCORBIC ACID 500 MG TABLET GT SCH (09:48)
[2023-07-13] MEDS: ACETAMINOPHEN 650 MG/20.3 ML UDC GT SCH (09:48)
[2023-07-13] MEDS: ACIDOPHILUS/BULGARICUS 1 EACH TAB.CHEW GT SCH (09:48)
[2023-07-13] MEDS: PANTOPRAZOLE 40 MG/PACK PACK GT SCH (09:48)
[2023-07-13] MEDS: ASPIRIN 81 MG TAB.CHEW GT SCH (09:48)
[2023-07-13] MEDS: PROSOURCE / PROSTAT (PYXIS) 30 ML UDC GT SCH ×2 (09:49→17:10)
[2023-07-13] MEDS: glipiZIDE 5 MG TABLET GT SCH (09:49)
[2023-07-13] MEDS: MULTIVIT W/MINERALS 1 TAB TABLET GT SCH (09:49)
[2023-07-13] MEDS: GLUCERNA 1.2 1,000 ML BOTTLE NG PRN (12:35)
[2023-07-13] MEDS: VANCOMYCIN HCL 0.75 GM in IV D5W 250 ML IV SCH (13:11)
[2023-07-13] MEDS: ATORVASTATIN 40 MG TABLET GT SCH (21:31)
[2023-07-13] MEDS: TAMSULOSIN 0.4 MG CAP.SR.24H GT SCH (21:31)
[2023-07-14] VITALS (15 sets, daily range): BP systolic 94–139; BP diastolic 72–88; TEMP 97.7–99.3; O2SAT 98–100
[2023-07-14] MEDS: IPRATROPIUM NEB FS 0.5 MG/2.5 ML AMPUL.NEB NEB SCH ×4 (00:52→20:11)
[2023-07-14] MEDS: ALBUTEROL FS 2.5 MG/0.5 ML VIAL.NEB NEB SCH ×4 (00:52→20:11)
[2023-07-14] MEDS: VANCOMYCIN HCL 0.75 GM in IV D5W 250 ML IV SCH ×2 (01:38→14:10)
[2023-07-14] MEDS: PIPERACILLIN /TAZOBACTAM 3.375 G in IV D5W 100 ML IV SCH ×3 (05:16→21:42)
[2023-07-14 07:49] LABS: BASOPHILS # (AUTO) 0.1 K/uL (0.0-0.2); BASOPHILS % (AUTO) 2.5 % (0.0-2.0); EOSINOPHILS # (AUTO) 0.3 K/uL (0.0-0.7); EOSINOPHILS % (AUTO) 4.9 % (0.0-6.0); HEMATOCRIT 24 % (39-51); HEMOGLOBIN 7.3 g/dL (13.5-17.5); LYMPHOCYTES # (AUTO) 0.7 K/uL (0.8-4.8); LYMPHOCYTES % (AUTO) 13.1 % (20.0-44.0); MEAN CORPUSCULAR HEMOGLOBIN 25 PG (26.0-33.0); MEAN CORPUSCULAR HGB CONC 31 g/dl (31.0-36.0); MEAN CORPUSCULAR VOLUME 79 fL (80-96); MONOCYTES # (AUTO) 0.4 K/uL (0.1-1.30); MONOCYTES % (AUTO) 6.8 % (2.0-12.0); NEUTROPHILS # (AUTO) 3.9 K/uL (1.8-8.9); NEUTROPHILS % (AUTO) 72.7 % (43.0-81.0); PLATELET COUNT (AUTO) 342 K/uL (150-450); RED CELL DISTRIBUTION WIDTH 18.4 % (11.5-15.0); WHITE BLOOD COUNT (AUTO) 5.4 K/uL (4.3-11.0)
[2023-07-14 08:07] LABS: CALCIUM, SERUM 7.9 mg/dL (8.5-10.1); CREATININE 0.8 mg/dL (0.6-1.3); POTASSIUM 4.1 mmol/L (3.5-5.1)
[2023-07-14] MEDS: MULTIVIT W/MINERALS 1 TAB TABLET GT SCH (08:49)
[2023-07-14] MEDS: ASPIRIN 81 MG TAB.CHEW GT SCH (08:49)
[2023-07-14] MEDS: ACETAMINOPHEN 650 MG/20.3 ML UDC GT SCH (08:49)
[2023-07-14] MEDS: glipiZIDE 5 MG TABLET GT SCH (08:49)
[2023-07-14] MEDS: FERROUS SULFATE UDC 300 MG/5 ML UDC GT SCH (08:49)
[2023-07-14] MEDS: ASCORBIC ACID 500 MG TABLET GT SCH (08:50)
[2023-07-14] MEDS: ENOXAPARIN SODIUM 40 MG/0.4 ML DISP.SYRIN SQ SCH (08:50)
[2023-07-14] MEDS: PANTOPRAZOLE 40 MG/PACK PACK GT SCH (08:50)
[2023-07-14] MEDS: INSULIN REGULAR, HUMAN 100 UNIT/ML 3 ML VIAL SQ PRN ×4 (08:52→22:02)
[2023-07-14] MEDS: BLOOD SUGAR DIAGNOSTIC 1 EACH STRIP IN SCH ×4 (08:52→22:00)
[2023-07-14] MEDS: PROSOURCE / PROSTAT (PYXIS) 30 ML UDC GT SCH ×2 (08:55→17:58)
[2023-07-14] MEDS: ACIDOPHILUS/BULGARICUS 1 EACH TAB.CHEW GT SCH (08:57)
[2023-07-14] MEDS: TAMSULOSIN 0.4 MG CAP.SR.24H GT SCH (21:43)
[2023-07-14] MEDS: ATORVASTATIN 40 MG TABLET GT SCH (21:43)
[2023-07-15] VITALS: BP 119/83; TEMP 97.9; O2SAT 98
[2023-07-15 01:31] VITALS: O2SAT 97
[2023-07-15 01:46] VITALS: O2SAT 100
[2023-07-15] MEDS: VANCOMYCIN HCL 0.75 GM in IV D5W 250 ML IV SCH (01:48)
[2023-07-15] MEDS: ALBUTEROL FS 2.5 MG/0.5 ML VIAL.NEB NEB SCH ×2 (02:05→08:34)
[2023-07-15] MEDS: IPRATROPIUM NEB FS 0.5 MG/2.5 ML AMPUL.NEB NEB SCH ×2 (02:06→08:34)
[2023-07-15 04:00] VITALS: BP 142/81; TEMP 98.4; O2SAT 96
[2023-07-15] MEDS: PIPERACILLIN /TAZOBACTAM 3.375 G in IV D5W 100 ML IV SCH (05:32)
[2023-07-15 06:22] LABS: BASOPHILS # (AUTO) 0.1 K/uL (0.0-0.2); BASOPHILS % (AUTO) 0.8 % (0.0-2.0); EOSINOPHILS # (AUTO) 0.2 K/uL (0.0-0.7); HEMATOCRIT 26 % (39-51); HEMOGLOBIN 7.9 g/dL (13.5-17.5); LYMPHOCYTES # (AUTO) 0.8 K/uL (0.8-4.8); LYMPHOCYTES % (AUTO) 8.1 % (20.0-44.0); MEAN CORPUSCULAR HEMOGLOBIN 25 PG (26.0-33.0); MEAN CORPUSCULAR HGB CONC 31 g/dl (31.0-36.0); MEAN CORPUSCULAR VOLUME 80 fL (80-96); MONOCYTES # (AUTO) 0.4 K/uL (0.1-1.30); MONOCYTES % (AUTO) 3.8 % (2.0-12.0); NEUTROPHILS # (AUTO) 8.6 K/uL (1.8-8.9); NEUTROPHILS % (AUTO) 85.3 % (43.0-81.0); PLATELET COUNT (AUTO) 352 K/uL (150-450); RED BLOOD CELL COUNT(AUTO) 3.23 MIL/uL (4.5-6.0); RED CELL DISTRIBUTION WIDTH 18.3 % (11.5-15.0); WHITE BLOOD COUNT (AUTO) 10.1 K/uL (4.3-11.0)
[2023-07-15 07:09] LABS: CALCIUM, SERUM 8.2 mg/dL (8.5-10.1); CREATININE 0.8 mg/dL (0.6-1.3); POTASSIUM 4.4 mmol/L (3.5-5.1)
[2023-07-15 08:21] VITALS: O2SAT 96
[2023-07-15 08:35] VITALS: O2SAT 100; O2SAT 98
[2023-07-15] MEDS: BLOOD SUGAR DIAGNOSTIC 1 EACH STRIP IN SCH ×2 (08:54→12:38)
[2023-07-15] MEDS: ASPIRIN 81 MG TAB.CHEW GT SCH (08:55)
[2023-07-15] MEDS: INSULIN REGULAR, HUMAN 100 UNIT/ML 3 ML VIAL SQ PRN ×2 (08:55→12:38)
[2023-07-15] MEDS: glipiZIDE 5 MG TABLET GT SCH (08:56)
[2023-07-15] MEDS: ACIDOPHILUS/BULGARICUS 1 EACH TAB.CHEW GT SCH (08:56)
[2023-07-15] MEDS: ACETAMINOPHEN 650 MG/20.3 ML UDC GT SCH (08:56)
[2023-07-15] MEDS: ASCORBIC ACID 500 MG TABLET GT SCH (08:56)
[2023-07-15] MEDS: FERROUS SULFATE UDC 300 MG/5 ML UDC GT SCH (08:56)
[2023-07-15] MEDS: MULTIVIT W/MINERALS 1 TAB TABLET GT SCH (08:56)
[2023-07-15] MEDS: PANTOPRAZOLE 40 MG/PACK PACK GT SCH (08:56)
[2023-07-15] MEDS: ENOXAPARIN SODIUM 40 MG/0.4 ML DISP.SYRIN SQ SCH (08:57)
[2023-07-15] MEDS: PROSOURCE / PROSTAT (PYXIS) 30 ML UDC GT SCH (08:58)
[2023-07-15] MEDS ORDERED: ACET325T53 PO (10:13)
[2023-07-15] MEDS ORDERED: NUT.237L45 NG (10:13)
[2023-07-15] MEDS ORDERED: LINE600I2 IV (10:13)
[2023-07-15] MEDS ORDERED: VANCOMYCIN 500 MG in IV D5W 100ml IV SCH (14:00)
== END 2023-07-15 13:54 | DRG 871 ==
LOC: ER 13:46 → ICU 19:58 → TELE1 07-14 01:13
PROVIDERS: ADMIT Nurse Practitioner Acute Care; ATTEND Nurse Practitioner Acute Care
PROC: 02HV33Z Insertion of Infusion Device into Superior Vena Cava, Percutaneous Approach (ICD-10-PCS; principal; 2023-07-11)
PROC: B548ZZA Ultrasonography of Superior Vena Cava, Guidance (ICD-10-PCS; 2023-07-11)
DX: A41.9 Sepsis, unspecified organism (principal); E43 Unspecified severe protein-calorie malnutrition; G93.41 Metabolic encephalopathy; J15.9 Unspecified bacterial pneumonia; J69.0 Pneumonitis due to inhalation of food and vomit; R65.21 Severe sepsis with septic shock; R53.2 Functional quadriplegia; E87.0 Hyperosmolality and hypernatremia; N39.0 Urinary tract infection, site not specified; D68.69 Other thrombophilia; Z68.1 Body mass index [BMI] 19.9 or less, adult; N17.9 Acute kidney failure, unspecified; D63.8 Anemia in other chronic diseases classified elsewhere; E78.5 Hyperlipidemia, unspecified; E86.0 Dehydration; E86.1 Hypovolemia; E88.09 Other disorders of plasma-protein metabolism, not elsewhere classified; I10 Essential (primary) hypertension; K21.9 Gastro-esophageal reflux disease without esophagitis; M24.561 Contracture, right knee; M24.562 Contracture, left knee; Z79.4 Long term (current) use of insulin; Z79.82 Long term (current) use of aspirin; Z79.84 Long term (current) use of oral hypoglycemic drugs; Z87.01 Personal history of pneumonia (recurrent); Z93.1 Gastrostomy status; N40.1 Benign prostatic hyperplasia with lower urinary tract symptoms; E11.9 Type 2 diabetes mellitus without complications; L89.896 Pressure-induced deep tissue damage of other site; L89.026 Pressure-induced deep tissue damage of left elbow; L89.226 Pressure-induced deep tissue damage of left hip; L89.890 Pressure ulcer of other site, unstageable; L90.5 Scar conditions and fibrosis of skin; L98.8 Other specified disorders of the skin and subcutaneous tissue; Z74.09 Other reduced mobility; R13.10 Dysphagia, unspecified
CPT/HCPCS: 31720; 36415; 71045-TC; 76770-TC; 80048-TC; 80053-TC; 80076-TC; 80202-TC; 82533; 82550-TC; 82962-TC; 83605-TC; 83735-TC; 84100-TC; 84484-TC; 85025-TC; 85730-TC; 87040-TC; 87081-TC; 87086-TC; 94799-TC; 99082-TC; A4223; A6403; G0378; J1650; J1815; J2543; J3370; J3480; J3490; J7030; J7040; J7050; J7060

== ENCOUNTER 2023-07-20 22:27 | Inpatient (IN) | payer MEDICARE, OTHER ==
[~2023-07-20] VITALS: Ht 167.6 cm; Wt 50.8 kg
[2023-07-20] MEDS: VANCOMYCIN 1 GM in IV D5W 250 ML IV ONE (00:30)
[~2023-07-20 22:27] MED LIST changes: -ACET-2605 GT; +ACET-3511 GT; -ACET-868 GT; +ACET325T53 PO; -ACET650S26 GT; +AZIT500V11 IV; +CEFT2VIA14 IV; -CLOT15CR5 TP; -COLL30OI TP; -CRAN3875 GT; -DOCU-141 GT; +ENOX40DI SQ; +GLIP5TAB13 GT; +HYDR-4303 GT; -LEVO750T46 GT; +LINE600I2 IV; +MAG30ORA GT; -MELA3TAB41 GT; +MULT-213 GT; -MULT9LIQ6 GT; -NUT.237L30 GT; +NUT.237L45 NG; +ONDA4AMP IV; +PETR113O TP; -POLY15DR40 EACHEYE; -SILV20CR13 TP; +ZINC57OI4 TP; -[UNRECOGNIZED DRUG - CODE] TP
[2023-07-20] MEDS ORDERED: ACETAMINOPHEN 650 MG/SUPP.RECT RC ONE ×2 (22:30→22:50)
[2023-07-20] MEDS ORDERED: IV NS 0.9% 1,000 ML IV ONE ×2 (22:30)
[2023-07-20] MEDS ORDERED: CEFEPIME 1 GM in IV D5W 50 ML IV ONE (22:30)
[2023-07-20] MEDS ORDERED: VANCOMYCIN 1 GM /D5W 250 ML PB IV ONE (22:50)
[2023-07-20] MEDS ORDERED: CEFEPIME 1 GM VIAL ONE (22:50)
[2023-07-20 23:45] LABS: BASOPHILS % (AUTO) 0.7 % (0.0-2.0); EOSINOPHILS % (AUTO) 0.1 % (0.0-6.0); HEMATOCRIT 29 % (39-51); HEMOGLOBIN 9.1 g/dL (13.5-17.5); LYMPHOCYTES # (AUTO) 0.3 K/uL (0.8-4.8); LYMPHOCYTES % (AUTO) 4.3 % (20.0-44.0); MEAN CORPUSCULAR HEMOGLOBIN 25 PG (26.0-33.0); MEAN CORPUSCULAR HGB CONC 31 g/dl (31.0-36.0); MEAN CORPUSCULAR VOLUME 79 fL (80-96); MONOCYTES # (AUTO) 0.3 K/uL (0.1-1.30); MONOCYTES % (AUTO) 4.2 % (2.0-12.0); NEUTROPHILS # (AUTO) 5.6 K/uL (1.8-8.9); NEUTROPHILS % (AUTO) 90.7 % (43.0-81.0); PLATELET COUNT (AUTO) 338 K/uL (150-450); RED BLOOD CELL COUNT(AUTO) 3.71 MIL/uL (4.5-6.0); RED CELL DISTRIBUTION WIDTH 20.2 % (11.5-15.0); WHITE BLOOD COUNT (AUTO) 6.2 K/uL (4.3-11.0)
[2023-07-20 23:49] LABS: APPEARANCE,URINE CLEAR (CLEAR); BILIRUBIN,URINE NEGATIVE (NEGATIVE); BLOOD, URINE NEGATIVE Ery/uL (NEGATIVE); COLOR,URINE YELLOW (YELLOW); KETONES,URINE NEGATIVE (NEGATIVE); LEUKOCYTE ESTERASE ,URINE NEGATIVE (NEGATIVE); NITRITE, URINE NEGATIVE (NEGATIVE); PROTEIN,URINE NEGATIVE (NEGATIVE); UGLUCOSE NEGATIVE (NEGATIVE); UROBILINOGEN,URINE 0.2 EU/dL (0.2)
[2023-07-20 23:55] LABS: INR 1.19 (0.91-1.10); PARTIAL THROMBOPLASTIN TIME 29.6 SEC (24.3-34.3); PROTHROMBIN TIME 12.4 SECS (9.2-11.1)
[2023-07-20 23:57] LABS: CALCIUM, SERUM 8.8 mg/dL (8.5-10.1); CARBON DIOXIDE 24 mmol/L (21-32); CHLORIDE 97 mmol/L (98-107); CREATININE 0.9 mg/dL (0.6-1.3); GLUCOSE 93 mg/dL (74-106); POTASSIUM 4.1 mmol/L (3.5-5.1); SODIUM SERUM 130 mmol/L (136-145); UREA NITROGEN, BLOOD 16 mg/dL (7-18)
[2023-07-21 00:09] LABS: ALANINE AMINOTRANSFERASE 25 U/L (12-78); ALBUMIN 2.5 g/dL (3.4-5.0); ALKALINE PHOSPHATASE 110 U/L (46-116); ASPARTATE AMINOTRANSFERASE 17 U/L (15-37); BILIRUBIN,DIRECT 0.2 mg/dL (0.0-0.2); BILIRUBIN,TOTAL 0.5 mg/dL (0.2-1.0); TOTAL PROTEIN, SERUM 6.8 g/dL (6.4-8.2)
[2023-07-21] MEDS: VANCOMYCIN 1 GM in IV D5W 250 ML IV ONE (00:30)
[2023-07-21] MEDS ORDERED: GLUCERNA SHAKE 237 ML CAN NG PRN (01:00)
[2023-07-21] MEDS ORDERED: BISACODYL SUPP (10 MG) 10 MG/SUPP.RECT SUPP.RECT RC PRN (01:00)
[2023-07-21] MEDS ORDERED: POLYETHYLENE GLYCOL 3350 17 GM POWD.PACK GT PRN (01:00)
[2023-07-21] MEDS ORDERED: ONDANSETRON HCL/PF 4 MG/2 ML VIAL IVP PRN (01:30)
[2023-07-21] MEDS ORDERED: ZOSYN IVPB 3.375 G in IV D5W 50ml IV ONE (01:30)
[2023-07-21] MEDS ORDERED: IPRATROPIUM NEB FS 0.5 MG/2.5 ML AMPUL.NEB NEB PRN (01:30)
[2023-07-21] MEDS ORDERED: ALBUTEROL FS 2.5 MG/3 ML VIAL.NEB NEB PRN (01:30)
[2023-07-21] MEDS ORDERED: PIPERACI/TAZO 3.375GM/D5W 50ML PB IV ONE (02:40)
[2023-07-21 04:00] VITALS: BP 94/53; TEMP 97.5; O2SAT 100
[2023-07-21 05:47] LABS: BASOPHILS % (AUTO) 0.4 % (0.0-2.0); EOSINOPHILS % (AUTO) 0.4 % (0.0-6.0); HEMATOCRIT 36 % (39-51); HEMOGLOBIN 10.9 g/dL (13.5-17.5); LYMPHOCYTES # (AUTO) 1.4 K/uL (0.8-4.8); LYMPHOCYTES % (AUTO) 14.3 % (20.0-44.0); MEAN CORPUSCULAR HEMOGLOBIN 25 PG (26.0-33.0); MEAN CORPUSCULAR HGB CONC 31 g/dl (31.0-36.0); MEAN CORPUSCULAR VOLUME 81 fL (80-96); MONOCYTES # (AUTO) 0.6 K/uL (0.1-1.30); NEUTROPHILS # (AUTO) 7.5 K/uL (1.8-8.9); NEUTROPHILS % (AUTO) 78.9 % (43.0-81.0); PLATELET COUNT (AUTO) 289 K/uL (150-450); RED BLOOD CELL COUNT(AUTO) 4.38 MIL/uL (4.5-6.0); RED CELL DISTRIBUTION WIDTH 20.9 % (11.5-15.0); WHITE BLOOD COUNT (AUTO) 9.5 K/uL (4.3-11.0)
[2023-07-21] MEDS ORDERED: GLUCERNA 1.2 1,000 ML BOTTLE GT PRN (06:00)
[2023-07-21 06:06] LABS: LACTIC ACID 1.5 mmol/L (0.4-2.0)
[2023-07-21 06:07] LABS: ALBUMIN 2.6 g/dL (3.4-5.0); BILIRUBIN,TOTAL 0.6 mg/dL (0.2-1.0); CALCIUM, SERUM 8.7 mg/dL (8.5-10.1); CREATININE 0.7 mg/dL (0.6-1.3); MAGNESIUM 2.1 mg/dL (1.8-2.4); PHOSPHORUS 2.6 mg/dL (2.5-4.9); POTASSIUM 4.2 mmol/L (3.5-5.1); TOTAL PROTEIN, SERUM 7.5 g/dL (6.4-8.2)
[2023-07-21 06:44] LABS: THYROID STIMULATING HORMONE 2.672 uIU/mL (0.358-3.74)
[2023-07-21 08:00] VITALS: BP 96/51; TEMP 97.4; O2SAT 100
[2023-07-21] MEDS ORDERED: HONE15GE TP (08:13)
[2023-07-21] MEDS ORDERED: ACET-868 GT (08:13)
[2023-07-21] MEDS ORDERED: XEROFORM TD (08:13)
[2023-07-21] MEDS ORDERED: LINE600I2 IV (08:13)
[2023-07-21] MEDS ORDERED: SILV50CR32 TP (08:13)
[2023-07-21] MEDS ORDERED: HYDROGEL DRESSING 90 GM TUBE TP PRN (09:00)
[2023-07-21] MEDS: ASCORBIC ACID 500 MG TABLET GT SCH (10:08)
[2023-07-21] MEDS: FERROUS SULFATE UDC 300 MG/5 ML UDC GT SCH (10:08)
[2023-07-21] MEDS: VITS A AND D/WHITE PET/LANOLIN 5 GM PACKET TP SCH (10:08)
[2023-07-21] MEDS: Z GUARD REMEDY 4 OZ OINT TP PRN (10:08)
[2023-07-21] MEDS: ACIDOPHILUS/BULGARICUS 1 EACH TAB.CHEW GT SCH (10:09)
[2023-07-21] MEDS: ASPIRIN 81 MG TAB.CHEW GT SCH (10:09)
[2023-07-21] MEDS: PANTOPRAZOLE 40 MG/PACK PACK GT SCH (10:09)
[2023-07-21] MEDS: MULTIVITAMINS,THERAGRAN 1 UDTAB TABLET GT SCH (10:09)
[2023-07-21] MEDS: ZINC SULFATE 220 MG CAPSULE GT SCH (10:09)
[2023-07-21] MEDS: ENOXAPARIN SODIUM 40 MG/0.4 ML DISP.SYRIN SQ SCH (10:12)
[2023-07-21] MEDS: PROSOURCE / PROSTAT (PYXIS) 30 ML UDC GT SCH ×2 (10:15→18:01)
[2023-07-21] MEDS: HYDROGEL DRESSING 90 GM TUBE TP SCH (10:22)
[2023-07-21] MEDS: IV NS 0.9% 1,000 ML IV SCH ×2 (11:13→21:16)
[2023-07-21 12:00] VITALS: BP 93/66; TEMP 97.4; O2SAT 100
[2023-07-21] MEDS ORDERED: VANCOMYCIN 500 MG in IV D5W 100ml IV SCH (12:00)
[2023-07-21] MEDS: CEFEPIME 2 GM in IV D5W 100 ML IV SCH ×2 (12:16→20:00)
[2023-07-21] MEDS ORDERED: PIPERACILLIN /TAZOBACTAM 3.375 G in IV D5W 50 ML IV SCH (13:00)
[2023-07-21] MEDS ORDERED: PIPERACILLIN /TAZOBACTAM 3.375 G in IV D5W 100 ML IV SCH (13:00)
[2023-07-21 16:00] VITALS: BP 116/61; TEMP 98.6; O2SAT 97
[2023-07-21] MEDS: ACETAMINOPHEN 325 MG TABLET MC PRN (20:59)
[2023-07-21] MEDS ORDERED: LINEZOLID RTU BAG 600 MG in PREMIX 1 EA IV SCH (21:00)
[2023-07-21] MEDS: TAMSULOSIN 0.4 MG CAP.SR.24H GT SCH (21:18)
[2023-07-21 22:00] VITALS: BP 112/56; TEMP 103.1; O2SAT 96
[2023-07-22] VITALS (12 sets, daily range): BP systolic 92–131; BP diastolic 53–64; TEMP 97.3–99.5; O2SAT 98–100
[2023-07-22] MEDS: BLOOD SUGAR DIAGNOSTIC 1 EACH STRIP IN SCH ×5 (00:19→23:26)
[2023-07-22] MEDS: INSULIN REGULAR, HUMAN 100 UNIT/ML 3 ML VIAL SQ PRN ×3 (00:21→17:28)
[2023-07-22] MEDS: CEFEPIME 2 GM in IV D5W 100 ML IV SCH ×3 (03:36→19:43)
[2023-07-22] MEDS: GLUCERNA 1.2 1,000 ML BOTTLE GT PRN (05:18)
[2023-07-22 05:46] LABS: BASOPHILS % (AUTO) 0.8 % (0.0-2.0); EOSINOPHILS # (AUTO) 0.1 K/uL (0.0-0.7); HEMATOCRIT 22 % (39-51); LYMPHOCYTES # (AUTO) 0.6 K/uL (0.8-4.8); LYMPHOCYTES % (AUTO) 10.1 % (20.0-44.0); MEAN CORPUSCULAR HEMOGLOBIN 25 PG (26.0-33.0); MEAN CORPUSCULAR HGB CONC 32 g/dl (31.0-36.0); MEAN CORPUSCULAR VOLUME 80 fL (80-96); MONOCYTES # (AUTO) 0.5 K/uL (0.1-1.30); NEUTROPHILS # (AUTO) 4.7 K/uL (1.8-8.9); NEUTROPHILS % (AUTO) 80.1 % (43.0-81.0); PLATELET COUNT (AUTO) 201 K/uL (150-450); RED BLOOD CELL COUNT(AUTO) 2.71 MIL/uL (4.5-6.0); WHITE BLOOD COUNT (AUTO) 5.8 K/uL (4.3-11.0)
[2023-07-22 06:07] LABS: HEMOGLOBIN 6.9 g/dL (13.5-17.5)
[2023-07-22 06:15] LABS: CALCIUM, SERUM 8.2 mg/dL (8.5-10.1); CARBON DIOXIDE 22 mmol/L (21-32); CHLORIDE 100 mmol/L (98-107); CREATININE 0.6 mg/dL (0.6-1.3); GLUCOSE 94 mg/dL (74-106); MAGNESIUM 1.9 mg/dL (1.8-2.4); PHOSPHORUS 1.9 mg/dL (2.5-4.9); POTASSIUM 3.5 mmol/L (3.5-5.1); SODIUM SERUM 128 mmol/L (136-145); UREA NITROGEN, BLOOD 18 mg/dL (7-18)
[2023-07-22] MEDS: IV NS 0.9% 1,000 ML IV SCH (07:09)
[2023-07-22 07:26] LABS: THYROID STIMULATING HORMONE 1.544 uIU/mL (0.358-3.74); URIC ACID 4.3 mg/dL (2.6-7.2)
[2023-07-22] MEDS: ASPIRIN 81 MG TAB.CHEW GT SCH (08:41)
[2023-07-22] MEDS: ENOXAPARIN SODIUM 40 MG/0.4 ML DISP.SYRIN SQ SCH (08:41)
[2023-07-22] MEDS: PANTOPRAZOLE 40 MG/PACK PACK GT SCH (08:43)
[2023-07-22] MEDS: PROSOURCE / PROSTAT (PYXIS) 30 ML UDC GT SCH ×2 (08:43→16:39)
[2023-07-22] MEDS: ACIDOPHILUS/BULGARICUS 1 EACH TAB.CHEW GT SCH (08:43)
[2023-07-22] MEDS: ZINC SULFATE 220 MG CAPSULE GT SCH (08:43)
[2023-07-22] MEDS: MULTIVITAMINS,THERAGRAN 1 UDTAB TABLET GT SCH (08:43)
[2023-07-22] MEDS: ASCORBIC ACID 500 MG TABLET GT SCH (08:43)
[2023-07-22] MEDS: FERROUS SULFATE UDC 300 MG/5 ML UDC GT SCH (08:44)
[2023-07-22] MEDS: LINEZOLID 600 MG TABLET GT SCH ×2 (08:55→21:24)
[2023-07-22] MEDS: HYDROGEL DRESSING 90 GM TUBE TP SCH (09:22)
[2023-07-22] MEDS: VITS A AND D/WHITE PET/LANOLIN 5 GM PACKET TP SCH (10:20)
[2023-07-22 10:49] LABS: ANISOCYTOSIS 1+; BASOPHILS % (MANUAL) 0 % (0.0-2.0); EOSINOPHILS % (MANUAL) 1 % (0-4); HYPOCHROMASIA 1+; LYMPHOCYTES % (MANUAL) 9 % (16-48); MONOCYTES % (MANUAL) 8 % (0-11.0); NEUTROPHILS % (MANUAL) 82 (42-76); PLATELET ESTIMATE ADEQUATE
[2023-07-22] MEDS ORDERED: NEUTRA PHOS 1 POWD.PACKET GT ONE (15:30)
[2023-07-22] MEDS: TAMSULOSIN 0.4 MG CAP.SR.24H GT SCH (21:22)
[2023-07-22 22:56] LABS: HIV-1 p24 ANTIGEN NON REACTIVE (NONREACTIVE); HIV-1/2 ANTIBODY NON REACTIVE (NONREACTIVE)
[2023-07-23] VITALS: BP 95/50; TEMP 98.2
[2023-07-23] MEDS: GLUCERNA 1.2 1,000 ML BOTTLE GT PRN (02:25)
[2023-07-23] MEDS: CEFEPIME 2 GM in IV D5W 100 ML IV SCH ×3 (03:47→21:03)
[2023-07-23 04:00] VITALS: BP 110/66; TEMP 98.8; O2SAT 98
[2023-07-23] MEDS: BLOOD SUGAR DIAGNOSTIC 1 EACH STRIP IN SCH ×3 (05:38→18:28)
[2023-07-23] MEDS: INSULIN REGULAR, HUMAN 100 UNIT/ML 3 ML VIAL SQ PRN ×2 (05:43→12:28)
[2023-07-23 07:22] LABS: CALCIUM, SERUM 8.2 mg/dL (8.5-10.1); CARBON DIOXIDE 23 mmol/L (21-32); CHLORIDE 104 mmol/L (98-107); CREATININE 0.7 mg/dL (0.6-1.3); GLUCOSE 210 mg/dL (74-106); POTASSIUM 3.5 mmol/L (3.5-5.1); SODIUM SERUM 134 mmol/L (136-145); UREA NITROGEN, BLOOD 18 mg/dL (7-18)
[2023-07-23 08:00] VITALS: BP 113/78; TEMP 98.1; O2SAT 98
[2023-07-23] MEDS: ACIDOPHILUS/BULGARICUS 1 EACH TAB.CHEW GT SCH (08:37)
[2023-07-23] MEDS: FERROUS SULFATE UDC 300 MG/5 ML UDC GT SCH (08:37)
[2023-07-23] MEDS: ASCORBIC ACID 500 MG TABLET GT SCH (08:37)
[2023-07-23] MEDS: PANTOPRAZOLE 40 MG/PACK PACK GT SCH (08:37)
[2023-07-23] MEDS: MULTIVITAMINS,THERAGRAN 1 UDTAB TABLET GT SCH (08:37)
[2023-07-23] MEDS: ASPIRIN 81 MG TAB.CHEW GT SCH (08:37)
[2023-07-23] MEDS: ZINC SULFATE 220 MG CAPSULE GT SCH (08:37)
[2023-07-23] MEDS: LINEZOLID 600 MG TABLET GT SCH ×2 (08:37→22:06)
[2023-07-23] MEDS: PROSOURCE / PROSTAT (PYXIS) 30 ML UDC GT SCH ×2 (08:40→18:28)
[2023-07-23] MEDS: VITS A AND D/WHITE PET/LANOLIN 5 GM PACKET TP SCH (08:41)
[2023-07-23] MEDS: HYDROGEL DRESSING 90 GM TUBE TP SCH (08:41)
[2023-07-23 09:04] LABS: BASOPHILS # (AUTO) 0.1 K/uL (0.0-0.2); EOSINOPHILS # (AUTO) 0.3 K/uL (0.0-0.7); EOSINOPHILS % (AUTO) 4.3 % (0.0-6.0); HEMATOCRIT 24 % (39-51); HEMOGLOBIN 7.8 g/dL (13.5-17.5); LYMPHOCYTES # (AUTO) 0.6 K/uL (0.8-4.8); LYMPHOCYTES % (AUTO) 10.4 % (20.0-44.0); MEAN CORPUSCULAR HEMOGLOBIN 26 PG (26.0-33.0); MEAN CORPUSCULAR HGB CONC 32 g/dl (31.0-36.0); MEAN CORPUSCULAR VOLUME 81 fL (80-96); MONOCYTES # (AUTO) 0.7 K/uL (0.1-1.30); MONOCYTES % (AUTO) 11.2 % (2.0-12.0); NEUTROPHILS # (AUTO) 4.3 K/uL (1.8-8.9); NEUTROPHILS % (AUTO) 73.1 % (43.0-81.0); PLATELET COUNT (AUTO) 220 K/uL (150-450); RED CELL DISTRIBUTION WIDTH 20.4 % (11.5-15.0); WHITE BLOOD COUNT (AUTO) 5.9 K/uL (4.3-11.0)
[2023-07-23 12:00] VITALS: BP 116/79; TEMP 98.6; O2SAT 99
[2023-07-23] MEDS ORDERED: NEUTRA PHOS 1 POWD.PACKET GT ONE (14:00)
[2023-07-23 16:00] VITALS: BP 112/72; TEMP 97.7; O2SAT 99
[2023-07-23] MEDS: DEXTROSE 50%-WATER 50 ML DISP.SYRIN IV PRN (17:41)
[2023-07-23] MEDS: ARGININE/GLUTAMINE/CALCIUM BMB 1 EACH POWD.PACK GT SCH (18:28)
[2023-07-23 20:00] VITALS: BP 148/91; TEMP 97.5; O2SAT 100
[2023-07-23] MEDS: TAMSULOSIN 0.4 MG CAP.SR.24H GT SCH (23:54)
[2023-07-24] VITALS: BP 147/90; TEMP 97.5; O2SAT 100
[2023-07-24] MEDS: BLOOD SUGAR DIAGNOSTIC 1 EACH STRIP IN SCH ×5 (01:09→23:47)
[2023-07-24] MEDS: INSULIN REGULAR, HUMAN 100 UNIT/ML 3 ML VIAL SQ PRN ×5 (02:03→23:47)
[2023-07-24 04:00] VITALS: BP 115/67; TEMP 97.7; O2SAT 100
[2023-07-24] MEDS: CEFEPIME 2 GM in IV D5W 100 ML IV SCH ×3 (04:07→20:26)
[2023-07-24] MEDS: GLUCERNA 1.2 1,000 ML BOTTLE GT PRN (04:31)
[2023-07-24 07:30] LABS: CALCIUM, SERUM 8.6 mg/dL (8.5-10.1); CARBON DIOXIDE 25 mmol/L (21-32); CHLORIDE 103 mmol/L (98-107); CREATININE 0.6 mg/dL (0.6-1.3); GLUCOSE 90 mg/dL (74-106); PHOSPHORUS 2.4 mg/dL (2.5-4.9); POTASSIUM 4.4 mmol/L (3.5-5.1); SODIUM SERUM 137 mmol/L (136-145); UREA NITROGEN, BLOOD 22 mg/dL (7-18)
[2023-07-24 08:00] VITALS: BP 111/70; TEMP 98.1; O2SAT 100
[2023-07-24] MEDS: HYDROGEL DRESSING 90 GM TUBE TP SCH (08:08)
[2023-07-24] MEDS: ASCORBIC ACID 500 MG TABLET GT SCH (08:09)
[2023-07-24] MEDS: MULTIVITAMINS,THERAGRAN 1 UDTAB TABLET GT SCH (08:09)
[2023-07-24] MEDS: ACIDOPHILUS/BULGARICUS 1 EACH TAB.CHEW GT SCH (08:09)
[2023-07-24] MEDS: PANTOPRAZOLE 40 MG/PACK PACK GT SCH (08:09)
[2023-07-24] MEDS: LINEZOLID 600 MG TABLET GT SCH ×2 (08:09→20:27)
[2023-07-24] MEDS: ZINC SULFATE 220 MG CAPSULE GT SCH (08:09)
[2023-07-24] MEDS: ASPIRIN 81 MG TAB.CHEW GT SCH (08:09)
[2023-07-24] MEDS: FERROUS SULFATE UDC 300 MG/5 ML UDC GT SCH (08:09)
[2023-07-24] MEDS: ARGININE/GLUTAMINE/CALCIUM BMB 1 EACH POWD.PACK GT SCH ×2 (08:10→16:52)
[2023-07-24] MEDS: PROSOURCE / PROSTAT (PYXIS) 30 ML UDC GT SCH ×2 (08:10→16:52)
[2023-07-24] MEDS: VITS A AND D/WHITE PET/LANOLIN 5 GM PACKET TP SCH (08:11)
[2023-07-24 12:00] VITALS: BP 85/57; TEMP 97.3; O2SAT 100
[2023-07-24 12:00] LABS: BASOPHILS # (AUTO) 0.1 K/uL (0.0-0.2); BASOPHILS % (AUTO) 1.2 % (0.0-2.0); EOSINOPHILS # (AUTO) 0.9 K/uL (0.0-0.7); EOSINOPHILS % (AUTO) 13.5 % (0.0-6.0); HEMATOCRIT 29 % (39-51); HEMOGLOBIN 9.1 g/dL (13.5-17.5); LYMPHOCYTES # (AUTO) 0.9 K/uL (0.8-4.8); LYMPHOCYTES % (AUTO) 14.5 % (20.0-44.0); MEAN CORPUSCULAR HEMOGLOBIN 26 PG (26.0-33.0); MEAN CORPUSCULAR HGB CONC 32 g/dl (31.0-36.0); MEAN CORPUSCULAR VOLUME 82 fL (80-96); MONOCYTES # (AUTO) 0.6 K/uL (0.1-1.30); MONOCYTES % (AUTO) 9.3 % (2.0-12.0); NEUTROPHILS # (AUTO) 3.9 K/uL (1.8-8.9); NEUTROPHILS % (AUTO) 61.5 % (43.0-81.0); PLATELET COUNT (AUTO) 242 K/uL (150-450); RED BLOOD CELL COUNT(AUTO) 3.53 MIL/uL (4.5-6.0); RED CELL DISTRIBUTION WIDTH 20.8 % (11.5-15.0); WHITE BLOOD COUNT (AUTO) 6.4 K/uL (4.3-11.0)
[2023-07-24 16:00] VITALS: BP 100/70; TEMP 97.5; O2SAT 100
[2023-07-24] MEDS: MORPHINE SULFATE INJ 2 MG/ML DISP.SYRIN IV PRN (16:51)
[2023-07-24] MEDS ORDERED: NEUTRA PHOS 1 POWD.PACKET NG ONE (17:00)
[2023-07-24 20:00] VITALS: BP 110/64; TEMP 97.9; O2SAT 100
[2023-07-24] MEDS: TAMSULOSIN 0.4 MG CAP.SR.24H GT SCH (21:14)
[2023-07-25] VITALS (30 sets, daily range): BP systolic 77–160; BP diastolic 44–87; TEMP 97.7–209.8; O2SAT 75–100
[2023-07-25] MEDS: GLUCERNA 1.2 1,000 ML BOTTLE GT PRN (00:20)
[2023-07-25] MEDS: CEFEPIME 2 GM in IV D5W 100 ML IV SCH ×3 (04:17→20:30)
[2023-07-25] MEDS: BLOOD SUGAR DIAGNOSTIC 1 EACH STRIP IN SCH ×3 (05:51→17:19)
[2023-07-25] MEDS: INSULIN REGULAR, HUMAN 100 UNIT/ML 3 ML VIAL SQ PRN ×2 (05:53→11:39)
[2023-07-25 07:58] LABS: CALCIUM, SERUM 8.4 mg/dL (8.5-10.1); CARBON DIOXIDE 27 mmol/L (21-32); CHLORIDE 101 mmol/L (98-107); CREATININE 0.6 mg/dL (0.6-1.3); GLUCOSE 148 mg/dL (74-106); POTASSIUM 4.4 mmol/L (3.5-5.1); SODIUM SERUM 134 mmol/L (136-145); UREA NITROGEN, BLOOD 19 mg/dL (7-18)
[2023-07-25] MEDS: PROSOURCE / PROSTAT (PYXIS) 30 ML UDC GT SCH ×2 (08:35→17:00)
[2023-07-25] MEDS: ARGININE/GLUTAMINE/CALCIUM BMB 1 EACH POWD.PACK GT SCH ×2 (08:37→17:00)
[2023-07-25] MEDS: Z GUARD REMEDY 4 OZ OINT TP PRN (08:54)
[2023-07-25] MEDS: VITS A AND D/WHITE PET/LANOLIN 5 GM PACKET TP SCH (08:54)
[2023-07-25] MEDS: HYDROGEL DRESSING 90 GM TUBE TP SCH (08:55)
[2023-07-25] MEDS: LINEZOLID 600 MG TABLET GT SCH ×2 (08:58→20:28)
[2023-07-25] MEDS: ASCORBIC ACID 500 MG TABLET GT SCH (08:58)
[2023-07-25] MEDS: ZINC SULFATE 220 MG CAPSULE GT SCH (08:58)
[2023-07-25] MEDS: ASPIRIN 81 MG TAB.CHEW GT SCH (08:58)
[2023-07-25] MEDS: MULTIVITAMINS,THERAGRAN 1 UDTAB TABLET GT SCH (08:58)
[2023-07-25] MEDS: PANTOPRAZOLE 40 MG/PACK PACK GT SCH (08:58)
[2023-07-25] MEDS: FERROUS SULFATE UDC 300 MG/5 ML UDC GT SCH (08:58)
[2023-07-25] MEDS: ACIDOPHILUS/BULGARICUS 1 EACH TAB.CHEW GT SCH (08:58)
[2023-07-25] MEDS: ACETAMINOPHEN 325 MG TABLET MC PRN (14:27)
[2023-07-25 16:48] LABS: ABG BASE EXCESS -0.3 mmol/L; ABG OXYGEN SATURATION 81.6 % (92.0-98.5); ABG PCO2 37.4 mmHg (35.0-45.0); ABG PH 7.423 (7.350-7.450); ABG PO2 45.1 mmHg (75.0-100.0); ABG TOTAL HEMOGLOBIN 11.9 G/dL (13.5-18.0); AaDO2 630.5 mmHg; COHb 0.3 % (0.5-1.5); MetHb 0.3 % (0.0-1.5); O2Hb 81.1 % (94.0-97.0); SITE, ABG Right Radial; VENT MODE, BG 100% NRB
[2023-07-25] MEDS ORDERED: NOREPINEPHRINE 8 MG in IV NS 0.9% 242 ML IV PRN (18:30)
[2023-07-25] MEDS: PROPOFOL 100 ML IV PRN (19:21)
[2023-07-25] MEDS: TAMSULOSIN 0.4 MG CAP.SR.24H GT SCH (20:28)
[2023-07-25] MEDS: IV NS 0.9% 250 ML IV PRN (20:30)
[2023-07-26] VITALS (49 sets, daily range): BP systolic 88–123; BP diastolic 53–77; TEMP 98.1–99.5; O2SAT 83–100
[2023-07-26] MEDS: BLOOD SUGAR DIAGNOSTIC 1 EACH STRIP IN SCH ×5 (01:15→23:12)
[2023-07-26] MEDS: PROPOFOL 100 ML IV PRN ×4 (03:59→23:13)
[2023-07-26] MEDS: CEFEPIME 2 GM in IV D5W 100 ML IV SCH ×3 (03:59→20:11)
[2023-07-26 04:38] LABS: BASOPHILS # (AUTO) 0.1 K/uL (0.0-0.2); BASOPHILS % (AUTO) 0.8 % (0.0-2.0); EOSINOPHILS # (AUTO) 0.3 K/uL (0.0-0.7); EOSINOPHILS % (AUTO) 2.8 % (0.0-6.0); HEMATOCRIT 29 % (39-51); HEMOGLOBIN 9.2 g/dL (13.5-17.5); LYMPHOCYTES # (AUTO) 1.1 K/uL (0.8-4.8); LYMPHOCYTES % (AUTO) 10.4 % (20.0-44.0); MEAN CORPUSCULAR HEMOGLOBIN 26 PG (26.0-33.0); MEAN CORPUSCULAR HGB CONC 32 g/dl (31.0-36.0); MEAN CORPUSCULAR VOLUME 82 fL (80-96); MONOCYTES # (AUTO) 0.5 K/uL (0.1-1.30); MONOCYTES % (AUTO) 4.5 % (2.0-12.0); NEUTROPHILS # (AUTO) 8.6 K/uL (1.8-8.9); NEUTROPHILS % (AUTO) 81.5 % (43.0-81.0); PLATELET COUNT (AUTO) 236 K/uL (150-450); RED BLOOD CELL COUNT(AUTO) 3.56 MIL/uL (4.5-6.0); RED CELL DISTRIBUTION WIDTH 20.7 % (11.5-15.0); WHITE BLOOD COUNT (AUTO) 10.6 K/uL (4.3-11.0)
[2023-07-26 04:48] LABS: CALCIUM, SERUM 8.5 mg/dL (8.5-10.1); CARBON DIOXIDE 25 mmol/L (21-32); CHLORIDE 102 mmol/L (98-107); CREATININE 0.7 mg/dL (0.6-1.3); GLUCOSE 167 mg/dL (74-106); MAGNESIUM 2.1 mg/dL (1.8-2.4); POTASSIUM 4.2 mmol/L (3.5-5.1); SODIUM SERUM 136 mmol/L (136-145); UREA NITROGEN, BLOOD 23 mg/dL (7-18)
[2023-07-26] MEDS ORDERED: SUCCINYLCHOLINE CHLORIDE 20 MG/ML VIAL IV ONE (07:00)
[2023-07-26] MEDS ORDERED: ETOMIDATE 2 MG/ML VIAL IV ONE (07:00)
[2023-07-26] MEDS: PANTOPRAZOLE 40 MG/PACK PACK GT SCH (08:07)
[2023-07-26] MEDS: FERROUS SULFATE UDC 300 MG/5 ML UDC GT SCH (08:07)
[2023-07-26] MEDS: ACIDOPHILUS/BULGARICUS 1 EACH TAB.CHEW GT SCH (08:07)
[2023-07-26] MEDS: ZINC SULFATE 220 MG CAPSULE GT SCH (08:07)
[2023-07-26] MEDS: MULTIVITAMINS,THERAGRAN 1 UDTAB TABLET GT SCH (08:07)
[2023-07-26] MEDS: ASPIRIN 81 MG TAB.CHEW GT SCH (08:07)
[2023-07-26] MEDS: ASCORBIC ACID 500 MG TABLET GT SCH (08:07)
[2023-07-26] MEDS: ARGININE/GLUTAMINE/CALCIUM BMB 1 EACH POWD.PACK GT SCH ×2 (08:08→16:17)
[2023-07-26] MEDS: LINEZOLID 600 MG TABLET GT SCH ×2 (08:08→21:00)
[2023-07-26] MEDS: PROSOURCE / PROSTAT (PYXIS) 30 ML UDC GT SCH ×2 (08:08→16:18)
[2023-07-26] MEDS: HYDROGEL DRESSING 90 GM TUBE TP SCH (08:09)
[2023-07-26] MEDS: VITS A AND D/WHITE PET/LANOLIN 5 GM PACKET TP SCH (08:10)
[2023-07-26 09:28] LABS: ABG BASE EXCESS 1.8 mmol/L; ABG OXYGEN SATURATION 98.3 % (92.0-98.5); ABG PH 7.476 (7.350-7.450); ABG PO2 113.2 mmHg (75.0-100.0); ABG TOTAL HEMOGLOBIN 10.2 G/dL (13.5-18.0); AaDO2 564.8 mmHg; COHb 0.3 % (0.5-1.5); MetHb 0.1 % (0.0-1.5); O2Hb 97.9 % (94.0-97.0); PEEP,BG 5 cm H2O; SITE, ABG Right Radial; VT, ABG 400 mL
[2023-07-26] MEDS: GLUCERNA 1.2 1,000 ML BOTTLE GT PRN (13:03)
[2023-07-26] MEDS: INSULIN REGULAR, HUMAN 100 UNIT/ML 3 ML VIAL SQ PRN ×2 (17:56→23:24)
[2023-07-26] MEDS: MORPHINE SULFATE INJ 2 MG/ML DISP.SYRIN IV PRN (20:10)
[2023-07-26] MEDS: TAMSULOSIN 0.4 MG CAP.SR.24H GT SCH (21:01)
[2023-07-26] MEDS: IV NS 0.9% 250 ML IV PRN (21:01)
[2023-07-26] MEDS ORDERED: ACETAMINOPHEN 650 MG/SUPP.RECT RC PRN (22:30)
[2023-07-27] VITALS (34 sets, daily range): BP systolic 89–123; BP diastolic 54–79; TEMP 96.4–98.7; O2SAT 85–100
[2023-07-27] MEDS: MORPHINE SULFATE INJ 2 MG/ML DISP.SYRIN IV PRN (00:15)
[2023-07-27] MEDS: CEFEPIME 2 GM in IV D5W 100 ML IV SCH ×3 (03:21→20:30)
[2023-07-27 04:22] LABS: BASOPHILS % (AUTO) 0.3 % (0.0-2.0); EOSINOPHILS # (AUTO) 1.4 K/uL (0.0-0.7); EOSINOPHILS % (AUTO) 14.6 % (0.0-6.0); HEMATOCRIT 27 % (39-51); HEMOGLOBIN 8.4 g/dL (13.5-17.5); LYMPHOCYTES # (AUTO) 1.1 K/uL (0.8-4.8); LYMPHOCYTES % (AUTO) 11.8 % (20.0-44.0); MEAN CORPUSCULAR HEMOGLOBIN 26 PG (26.0-33.0); MEAN CORPUSCULAR HGB CONC 31 g/dl (31.0-36.0); MEAN CORPUSCULAR VOLUME 82 fL (80-96); MONOCYTES # (AUTO) 0.8 K/uL (0.1-1.30); MONOCYTES % (AUTO) 8.1 % (2.0-12.0); NEUTROPHILS # (AUTO) 6.1 K/uL (1.8-8.9); NEUTROPHILS % (AUTO) 65.2 % (43.0-81.0); PLATELET COUNT (AUTO) 215 K/uL (150-450); RED BLOOD CELL COUNT(AUTO) 3.28 MIL/uL (4.5-6.0); RED CELL DISTRIBUTION WIDTH 21.4 % (11.5-15.0); WHITE BLOOD COUNT (AUTO) 9.4 K/uL (4.3-11.0)
[2023-07-27 04:36] LABS: CALCIUM, SERUM 8.5 mg/dL (8.5-10.1); CARBON DIOXIDE 26 mmol/L (21-32); CHLORIDE 105 mmol/L (98-107); CREATININE 0.6 mg/dL (0.6-1.3); GLUCOSE 70 mg/dL (74-106); POTASSIUM 3.3 mmol/L (3.5-5.1); SODIUM SERUM 138 mmol/L (136-145); UREA NITROGEN, BLOOD 32 mg/dL (7-18)
[2023-07-27] MEDS: BLOOD SUGAR DIAGNOSTIC 1 EACH STRIP IN SCH ×4 (05:01→23:14)
[2023-07-27] MEDS: PROPOFOL 100 ML IV PRN ×4 (05:59→23:58)
[2023-07-27] MEDS: PROSOURCE / PROSTAT (PYXIS) 30 ML UDC GT SCH ×2 (08:47→17:22)
[2023-07-27] MEDS: ARGININE/GLUTAMINE/CALCIUM BMB 1 EACH POWD.PACK GT SCH ×2 (08:47→17:23)
[2023-07-27] MEDS: ZINC SULFATE 220 MG CAPSULE GT SCH (08:48)
[2023-07-27] MEDS: FERROUS SULFATE UDC 300 MG/5 ML UDC GT SCH (08:48)
[2023-07-27] MEDS: ACIDOPHILUS/BULGARICUS 1 EACH TAB.CHEW GT SCH (08:48)
[2023-07-27] MEDS: ASCORBIC ACID 500 MG TABLET GT SCH (08:48)
[2023-07-27] MEDS: MULTIVITAMINS,THERAGRAN 1 UDTAB TABLET GT SCH (08:48)
[2023-07-27] MEDS: LINEZOLID 600 MG TABLET GT SCH ×2 (08:48→21:03)
[2023-07-27] MEDS: PANTOPRAZOLE 40 MG/PACK PACK GT SCH (08:48)
[2023-07-27] MEDS: ASPIRIN 81 MG TAB.CHEW GT SCH (08:48)
[2023-07-27] MEDS: HYDROGEL DRESSING 90 GM TUBE TP SCH (08:49)
[2023-07-27] MEDS: VITS A AND D/WHITE PET/LANOLIN 5 GM PACKET TP SCH (08:49)
[2023-07-27] MEDS: POTASSIUM CL. PREMIX PERIPHER. 50 ML IV SCH ×2 (09:41→11:12)
[2023-07-27] MEDS ORDERED: Sodium Phosphate 15 MMOL in IV NS 0.9% 245 ML IV ONE (16:00)
[2023-07-27] MEDS: GLUCERNA 1.2 1,000 ML BOTTLE GT PRN (16:44)
[2023-07-27] MEDS: INSULIN REGULAR, HUMAN 100 UNIT/ML 3 ML VIAL SQ PRN (17:28)
[2023-07-27] MEDS: TAMSULOSIN 0.4 MG CAP.SR.24H GT SCH (21:02)
[2023-07-28] VITALS (31 sets, daily range): BP systolic 93–128; BP diastolic 58–82; TEMP 97.1–98.6; O2SAT 95–100
[2023-07-28] MEDS: IV NS 0.9% 250 ML IV PRN ×2 (00:28→21:58)
[2023-07-28] MEDS: CEFEPIME 2 GM in IV D5W 100 ML IV SCH ×3 (03:30→19:59)
[2023-07-28 04:48] LABS: BASOPHILS # (AUTO) 0.1 K/uL (0.0-0.2); BASOPHILS % (AUTO) 0.8 % (0.0-2.0); EOSINOPHILS # (AUTO) 1.5 K/uL (0.0-0.7); EOSINOPHILS % (AUTO) 15.2 % (0.0-6.0); HEMATOCRIT 28 % (39-51); HEMOGLOBIN 8.7 g/dL (13.5-17.5); LYMPHOCYTES # (AUTO) 0.9 K/uL (0.8-4.8); LYMPHOCYTES % (AUTO) 8.9 % (20.0-44.0); MEAN CORPUSCULAR HEMOGLOBIN 26 PG (26.0-33.0); MEAN CORPUSCULAR HGB CONC 31 g/dl (31.0-36.0); MEAN CORPUSCULAR VOLUME 82 fL (80-96); MONOCYTES # (AUTO) 0.7 K/uL (0.1-1.30); MONOCYTES % (AUTO) 7.6 % (2.0-12.0); NEUTROPHILS # (AUTO) 6.5 K/uL (1.8-8.9); NEUTROPHILS % (AUTO) 67.5 % (43.0-81.0); PLATELET COUNT (AUTO) 238 K/uL (150-450); RED BLOOD CELL COUNT(AUTO) 3.38 MIL/uL (4.5-6.0); RED CELL DISTRIBUTION WIDTH 20.9 % (11.5-15.0); WHITE BLOOD COUNT (AUTO) 9.7 K/uL (4.3-11.0)
[2023-07-28 05:09] LABS: CALCIUM, SERUM 8.5 mg/dL (8.5-10.1); CREATININE 0.6 mg/dL (0.6-1.3); PHOSPHORUS 3.2 mg/dL (2.5-4.9); POTASSIUM 3.7 mmol/L (3.5-5.1)
[2023-07-28] MEDS: BLOOD SUGAR DIAGNOSTIC 1 EACH STRIP IN SCH ×4 (05:54→23:29)
[2023-07-28] MEDS: PROPOFOL 100 ML IV PRN ×4 (05:55→21:58)
[2023-07-28] MEDS: ASCORBIC ACID 500 MG TABLET GT SCH (08:19)
[2023-07-28] MEDS: ASPIRIN 81 MG TAB.CHEW GT SCH (08:19)
[2023-07-28] MEDS: LINEZOLID 600 MG TABLET GT SCH ×2 (08:19→21:05)
[2023-07-28] MEDS: PANTOPRAZOLE 40 MG/PACK PACK GT SCH (08:19)
[2023-07-28] MEDS: MULTIVITAMINS,THERAGRAN 1 UDTAB TABLET GT SCH (08:19)
[2023-07-28] MEDS: FERROUS SULFATE UDC 300 MG/5 ML UDC GT SCH (08:19)
[2023-07-28] MEDS: ACIDOPHILUS/BULGARICUS 1 EACH TAB.CHEW GT SCH (08:19)
[2023-07-28] MEDS: ZINC SULFATE 220 MG CAPSULE GT SCH (08:19)
[2023-07-28] MEDS: PROSOURCE / PROSTAT (PYXIS) 30 ML UDC GT SCH ×2 (08:40→16:54)
[2023-07-28] MEDS: ARGININE/GLUTAMINE/CALCIUM BMB 1 EACH POWD.PACK GT SCH ×2 (08:40→16:55)
[2023-07-28] MEDS: HYDROGEL DRESSING 90 GM TUBE TP SCH (11:03)
[2023-07-28] MEDS: VITS A AND D/WHITE PET/LANOLIN 5 GM PACKET TP SCH (11:04)
[2023-07-28] MEDS: INSULIN REGULAR, HUMAN 100 UNIT/ML 3 ML VIAL SQ PRN ×2 (11:16→23:32)
[2023-07-28] MEDS: GLUCERNA 1.2 1,000 ML BOTTLE GT PRN (16:53)
[2023-07-28] MEDS: TAMSULOSIN 0.4 MG CAP.SR.24H GT SCH (21:05)
[2023-07-29] VITALS (33 sets, daily range): BP systolic 89–116; BP diastolic 53–72; TEMP 97.7–98.7; O2SAT 95–100
[2023-07-29] MEDS: PROPOFOL 100 ML IV PRN ×4 (02:55→18:20)
[2023-07-29] MEDS: CEFEPIME 2 GM in IV D5W 100 ML IV SCH ×3 (03:00→20:00)
[2023-07-29] MEDS: BLOOD SUGAR DIAGNOSTIC 1 EACH STRIP IN SCH ×4 (06:12→23:40)
[2023-07-29] MEDS: INSULIN REGULAR, HUMAN 100 UNIT/ML 3 ML VIAL SQ PRN ×3 (06:13→23:42)
[2023-07-29] MEDS: FERROUS SULFATE UDC 300 MG/5 ML UDC GT SCH (08:45)
[2023-07-29] MEDS: LINEZOLID 600 MG TABLET GT SCH ×2 (08:46→21:34)
[2023-07-29] MEDS: MULTIVITAMINS,THERAGRAN 1 UDTAB TABLET GT SCH (08:46)
[2023-07-29] MEDS: ZINC SULFATE 220 MG CAPSULE GT SCH (08:46)
[2023-07-29] MEDS: PANTOPRAZOLE 40 MG/PACK PACK GT SCH (08:46)
[2023-07-29] MEDS: ASPIRIN 81 MG TAB.CHEW GT SCH (08:46)
[2023-07-29] MEDS: ACIDOPHILUS/BULGARICUS 1 EACH TAB.CHEW GT SCH (08:46)
[2023-07-29] MEDS: ASCORBIC ACID 500 MG TABLET GT SCH (08:46)
[2023-07-29] MEDS: HYDROGEL DRESSING 90 GM TUBE TP SCH (08:47)
[2023-07-29] MEDS: VITS A AND D/WHITE PET/LANOLIN 5 GM PACKET TP SCH (08:49)
[2023-07-29] MEDS: PROSOURCE / PROSTAT (PYXIS) 30 ML UDC GT SCH ×2 (08:50→17:26)
[2023-07-29] MEDS: ARGININE/GLUTAMINE/CALCIUM BMB 1 EACH POWD.PACK GT SCH ×2 (08:51→17:26)
[2023-07-29] MEDS: GLUCERNA 1.2 1,000 ML BOTTLE GT PRN (16:21)
[2023-07-29] MEDS: TAMSULOSIN 0.4 MG CAP.SR.24H GT SCH (21:34)
[2023-07-29] MEDS: IV NS 0.9% 250 ML IV PRN (21:58)
[2023-07-30] VITALS (37 sets, daily range): BP systolic 89–124; BP diastolic 57–77; TEMP 97.7–98.9; O2SAT 97–100
[2023-07-30] MEDS: PROPOFOL 100 ML IV PRN ×5 (00:11→22:00)
[2023-07-30] MEDS: CEFEPIME 2 GM in IV D5W 100 ML IV SCH ×3 (04:00→20:01)
[2023-07-30 04:02] LABS: BASOPHILS # (AUTO) 0.1 K/uL (0.0-0.2); BASOPHILS % (AUTO) 0.8 % (0.0-2.0); EOSINOPHILS % (AUTO) 9.1 % (0.0-6.0); HEMATOCRIT 29 % (39-51); HEMOGLOBIN 9.2 g/dL (13.5-17.5); LYMPHOCYTES # (AUTO) 1.4 K/uL (0.8-4.8); MEAN CORPUSCULAR HEMOGLOBIN 26 PG (26.0-33.0); MEAN CORPUSCULAR HGB CONC 32 g/dl (31.0-36.0); MEAN CORPUSCULAR VOLUME 81 fL (80-96); MONOCYTES # (AUTO) 0.7 K/uL (0.1-1.30); MONOCYTES % (AUTO) 6.1 % (2.0-12.0); NEUTROPHILS # (AUTO) 8.1 K/uL (1.8-8.9); PLATELET COUNT (AUTO) 336 K/uL (150-450); RED CELL DISTRIBUTION WIDTH 20.6 % (11.5-15.0); WHITE BLOOD COUNT (AUTO) 11.3 K/uL (4.3-11.0)
[2023-07-30 04:15] LABS: CALCIUM, SERUM 8.4 mg/dL (8.5-10.1); CREATININE 0.9 mg/dL (0.6-1.3); MAGNESIUM 2.4 mg/dL (1.8-2.4); PHOSPHORUS 2.8 mg/dL (2.5-4.9); POTASSIUM 3.9 mmol/L (3.5-5.1)
[2023-07-30] MEDS: BLOOD SUGAR DIAGNOSTIC 1 EACH STRIP IN SCH ×4 (05:30→23:53)
[2023-07-30] MEDS: INSULIN REGULAR, HUMAN 100 UNIT/ML 3 ML VIAL SQ PRN ×3 (05:31→18:31)
[2023-07-30] MEDS: ZINC SULFATE 220 MG CAPSULE GT SCH (08:29)
[2023-07-30] MEDS: MULTIVITAMINS,THERAGRAN 1 UDTAB TABLET GT SCH (08:29)
[2023-07-30] MEDS: LINEZOLID 600 MG TABLET GT SCH ×2 (08:29→21:04)
[2023-07-30] MEDS: ASCORBIC ACID 500 MG TABLET GT SCH (08:29)
[2023-07-30] MEDS: ACIDOPHILUS/BULGARICUS 1 EACH TAB.CHEW GT SCH (08:30)
[2023-07-30] MEDS: PANTOPRAZOLE 40 MG/PACK PACK GT SCH (08:30)
[2023-07-30] MEDS: FERROUS SULFATE UDC 300 MG/5 ML UDC GT SCH (08:30)
[2023-07-30] MEDS: ASPIRIN 81 MG TAB.CHEW GT SCH (08:30)
[2023-07-30] MEDS: ARGININE/GLUTAMINE/CALCIUM BMB 1 EACH POWD.PACK GT SCH ×2 (08:35→17:40)
[2023-07-30] MEDS: PROSOURCE / PROSTAT (PYXIS) 30 ML UDC GT SCH ×2 (08:35→17:40)
[2023-07-30] MEDS: HYDROGEL DRESSING 90 GM TUBE TP SCH (08:37)
[2023-07-30] MEDS: VITS A AND D/WHITE PET/LANOLIN 5 GM PACKET TP SCH (08:37)
[2023-07-30] MEDS: GLUCERNA 1.2 1,000 ML BOTTLE GT PRN (11:21)
[2023-07-30] MEDS: TAMSULOSIN 0.4 MG CAP.SR.24H GT SCH (21:04)
[2023-07-31] VITALS (24 sets, daily range): BP systolic 89–114; BP diastolic 55–72; TEMP 97.5–98.1; O2SAT 100
[2023-07-31] MEDS: PROPOFOL 100 ML IV PRN ×4 (02:37→18:53)
[2023-07-31] MEDS: CEFEPIME 2 GM in IV D5W 100 ML IV SCH (04:00)
[2023-07-31] MEDS: BLOOD SUGAR DIAGNOSTIC 1 EACH STRIP IN SCH ×4 (06:02→23:44)
[2023-07-31] MEDS: MULTIVITAMINS,THERAGRAN 1 UDTAB TABLET GT SCH (08:34)
[2023-07-31] MEDS: PROSOURCE / PROSTAT (PYXIS) 30 ML UDC GT SCH ×2 (08:34→17:11)
[2023-07-31] MEDS: ASPIRIN 81 MG TAB.CHEW GT SCH (08:35)
[2023-07-31] MEDS: LINEZOLID 600 MG TABLET GT SCH (08:35)
[2023-07-31] MEDS: ACIDOPHILUS/BULGARICUS 1 EACH TAB.CHEW GT SCH (08:35)
[2023-07-31] MEDS: ZINC SULFATE 220 MG CAPSULE GT SCH (08:35)
[2023-07-31] MEDS: ASCORBIC ACID 500 MG TABLET GT SCH (08:35)
[2023-07-31] MEDS: HYDROGEL DRESSING 90 GM TUBE TP SCH (08:36)
[2023-07-31] MEDS: PANTOPRAZOLE 40 MG/PACK PACK GT SCH (08:36)
[2023-07-31] MEDS: FERROUS SULFATE UDC 300 MG/5 ML UDC GT SCH (08:36)
[2023-07-31] MEDS: VITS A AND D/WHITE PET/LANOLIN 5 GM PACKET TP SCH (08:36)
[2023-07-31] MEDS: ARGININE/GLUTAMINE/CALCIUM BMB 1 EACH POWD.PACK GT SCH ×2 (08:37→17:11)
[2023-07-31] MEDS ORDERED: LIDOCAINE 1% INJ 50 ML MDV IJ PRN (11:30)
[2023-07-31] MEDS: INSULIN REGULAR, HUMAN 100 UNIT/ML 3 ML VIAL SQ PRN (12:27)
[2023-07-31] MEDS: DEXTROSE 50%-WATER 50 ML DISP.SYRIN IV PRN (17:24)
[2023-07-31] MEDS ORDERED: CEFEPIME 2 GM in IV D5W 100 ML IV SCH (18:00)
[2023-07-31] MEDS: TAMSULOSIN 0.4 MG CAP.SR.24H GT SCH (21:55)
[2023-08-01] VITALS (24 sets, daily range): BP systolic 96–123; BP diastolic 56–74; TEMP 97.5–98.7; O2SAT 100
[2023-08-01] MEDS: PROPOFOL 100 ML IV PRN ×5 (04:36→21:00)
[2023-08-01] MEDS: BLOOD SUGAR DIAGNOSTIC 1 EACH STRIP IN SCH ×4 (06:23→23:45)
[2023-08-01] MEDS: ARGININE/GLUTAMINE/CALCIUM BMB 1 EACH POWD.PACK GT SCH ×2 (08:27→17:28)
[2023-08-01] MEDS: PROSOURCE / PROSTAT (PYXIS) 30 ML UDC GT SCH ×2 (08:27→17:28)
[2023-08-01] MEDS: FERROUS SULFATE UDC 300 MG/5 ML UDC GT SCH (08:28)
[2023-08-01] MEDS: ZINC SULFATE 220 MG CAPSULE GT SCH (08:28)
[2023-08-01] MEDS: ASPIRIN 81 MG TAB.CHEW GT SCH (08:28)
[2023-08-01] MEDS: ASCORBIC ACID 500 MG TABLET GT SCH (08:28)
[2023-08-01] MEDS: ACIDOPHILUS/BULGARICUS 1 EACH TAB.CHEW GT SCH (08:28)
[2023-08-01] MEDS: PANTOPRAZOLE 40 MG/PACK PACK GT SCH (08:28)
[2023-08-01] MEDS: MULTIVITAMINS,THERAGRAN 1 UDTAB TABLET GT SCH (08:28)
[2023-08-01] MEDS: HYDROGEL DRESSING 90 GM TUBE TP SCH (08:29)
[2023-08-01] MEDS: VITS A AND D/WHITE PET/LANOLIN 5 GM PACKET TP SCH (08:29)
[2023-08-01 09:22] LABS: BASOPHILS # (AUTO) 0.1 K/uL (0.0-0.2); BASOPHILS % (AUTO) 0.8 % (0.0-2.0); EOSINOPHILS # (AUTO) 1.3 K/uL (0.0-0.7); EOSINOPHILS % (AUTO) 11.9 % (0.0-6.0); HEMATOCRIT 30 % (39-51); HEMOGLOBIN 9.4 g/dL (13.5-17.5); LYMPHOCYTES # (AUTO) 1.1 K/uL (0.8-4.8); LYMPHOCYTES % (AUTO) 10.3 % (20.0-44.0); MEAN CORPUSCULAR HEMOGLOBIN 26 PG (26.0-33.0); MEAN CORPUSCULAR HGB CONC 32 g/dl (31.0-36.0); MEAN CORPUSCULAR VOLUME 82 fL (80-96); MONOCYTES # (AUTO) 0.5 K/uL (0.1-1.30); MONOCYTES % (AUTO) 4.4 % (2.0-12.0); NEUTROPHILS # (AUTO) 7.9 K/uL (1.8-8.9); NEUTROPHILS % (AUTO) 72.6 % (43.0-81.0); PLATELET COUNT (AUTO) 419 K/uL (150-450); RED BLOOD CELL COUNT(AUTO) 3.66 MIL/uL (4.5-6.0); RED CELL DISTRIBUTION WIDTH 20.5 % (11.5-15.0); WHITE BLOOD COUNT (AUTO) 10.9 K/uL (4.3-11.0)
[2023-08-01 09:37] LABS: INR 1.1 (0.91-1.10); PARTIAL THROMBOPLASTIN TIME 30.7 SEC (24.3-34.3); PROTHROMBIN TIME 11.6 SECS (9.2-11.1)
[2023-08-01 10:02] LABS: ALANINE AMINOTRANSFERASE 16 U/L (12-78); ALBUMIN 1.6 g/dL (3.4-5.0); ALKALINE PHOSPHATASE 99 U/L (46-116); ASPARTATE AMINOTRANSFERASE 15 U/L (15-37); BILIRUBIN,TOTAL 0.2 mg/dL (0.2-1.0); CALCIUM, SERUM 8.9 mg/dL (8.5-10.1); CARBON DIOXIDE 21 mmol/L (21-32); CHLORIDE 103 mmol/L (98-107); GLUCOSE 152 mg/dL (74-106); MAGNESIUM 2.3 mg/dL (1.8-2.4); PHOSPHORUS 4.2 mg/dL (2.5-4.9); POTASSIUM 3.9 mmol/L (3.5-5.1); SODIUM SERUM 136 mmol/L (136-145); TOTAL PROTEIN, SERUM 6.8 g/dL (6.4-8.2); UREA NITROGEN, BLOOD 58 mg/dL (7-18)
[2023-08-01 10:50] LABS: ANISOCYTOSIS 2+; EOSINOPHILS % (MANUAL) 9 % (0-4); LYMPHOCYTES % (MANUAL) 12 % (16-48); METAMYELOCYTES % 1 % (0-0); MONOCYTES % (MANUAL) 3 % (0-11.0); MYELOCYTES % 1 % (0-0); NEUTROPHILS % (MANUAL) 74 (42-76); PLATELET ESTIMATE ADEQUATE
[2023-08-01 10:51] LABS: HYPOCHROMASIA 1+
[2023-08-01 10:52] LABS: OVALOCYTES 1+; TEAR DROP CELLS OCC
[2023-08-01] MEDS: INSULIN REGULAR, HUMAN 100 UNIT/ML 3 ML VIAL SQ PRN ×2 (12:31→23:46)
[2023-08-01] MEDS: GLUCERNA 1.2 1,000 ML BOTTLE GT PRN (17:21)
[2023-08-01] MEDS: TAMSULOSIN 0.4 MG CAP.SR.24H GT SCH (21:03)
[2023-08-02] VITALS (24 sets, daily range): BP systolic 92–130; BP diastolic 59–74; TEMP 98–99.9; O2SAT 95–100
[2023-08-02] MEDS: PROPOFOL 100 ML IV PRN ×5 (01:46→21:58)
[2023-08-02 04:48] LABS: BASOPHILS # (AUTO) 0.1 K/uL (0.0-0.2); EOSINOPHILS # (AUTO) 0.7 K/uL (0.0-0.7); EOSINOPHILS % (AUTO) 5.7 % (0.0-6.0); HEMATOCRIT 31 % (39-51); HEMOGLOBIN 9.5 g/dL (13.5-17.5); LYMPHOCYTES % (AUTO) 7.9 % (20.0-44.0); MEAN CORPUSCULAR HEMOGLOBIN 25 PG (26.0-33.0); MEAN CORPUSCULAR HGB CONC 31 g/dl (31.0-36.0); MEAN CORPUSCULAR VOLUME 82 fL (80-96); MONOCYTES # (AUTO) 0.8 K/uL (0.1-1.30); MONOCYTES % (AUTO) 6.3 % (2.0-12.0); NEUTROPHILS # (AUTO) 10.3 K/uL (1.8-8.9); NEUTROPHILS % (AUTO) 79.1 % (43.0-81.0); PLATELET COUNT (AUTO) 558 K/uL (150-450); RED BLOOD CELL COUNT(AUTO) 3.77 MIL/uL (4.5-6.0); RED CELL DISTRIBUTION WIDTH 20.3 % (11.5-15.0)
[2023-08-02 05:07] LABS: ALANINE AMINOTRANSFERASE 17 U/L (12-78); ALBUMIN 1.8 g/dL (3.4-5.0); ALKALINE PHOSPHATASE 107 U/L (46-116); ASPARTATE AMINOTRANSFERASE 12 U/L (15-37); BILIRUBIN,TOTAL 0.2 mg/dL (0.2-1.0); CARBON DIOXIDE 21 mmol/L (21-32); CHLORIDE 109 mmol/L (98-107); CREATININE 1.3 mg/dL (0.6-1.3); GLUCOSE 157 mg/dL (74-106); MAGNESIUM 2.4 mg/dL (1.8-2.4); PHOSPHORUS 4.5 mg/dL (2.5-4.9); SODIUM SERUM 142 mmol/L (136-145); TOTAL PROTEIN, SERUM 7.1 g/dL (6.4-8.2); UREA NITROGEN, BLOOD 78 mg/dL (7-18)
[2023-08-02 05:22] LABS: ANISOCYTOSIS 1+; BAND % (MANUAL) 6 % (0.0-5.0); EOSINOPHILS % (MANUAL) 6 % (0-4); LYMPHOCYTES % (MANUAL) 9 % (16-48); MONOCYTES % (MANUAL) 8 % (0-11.0); MYELOCYTES % 4 % (0-0); NEUTROPHILS % (MANUAL) 67 (42-76); PLATELET ESTIMATE INCREASED
[2023-08-02] MEDS: BLOOD SUGAR DIAGNOSTIC 1 EACH STRIP IN SCH ×4 (05:51→23:57)
[2023-08-02] MEDS: ACIDOPHILUS/BULGARICUS 1 EACH TAB.CHEW GT SCH (08:18)
[2023-08-02] MEDS: MULTIVITAMINS,THERAGRAN 1 UDTAB TABLET GT SCH (08:19)
[2023-08-02] MEDS: ASCORBIC ACID 500 MG TABLET GT SCH (08:19)
[2023-08-02] MEDS: ASPIRIN 81 MG TAB.CHEW GT SCH (08:19)
[2023-08-02] MEDS: PANTOPRAZOLE 40 MG/PACK PACK GT SCH (08:19)
[2023-08-02] MEDS: FERROUS SULFATE UDC 300 MG/5 ML UDC GT SCH (08:19)
[2023-08-02] MEDS: ZINC SULFATE 220 MG CAPSULE GT SCH (08:19)
[2023-08-02] MEDS: HYDROGEL DRESSING 90 GM TUBE TP SCH (08:20)
[2023-08-02] MEDS: ARGININE/GLUTAMINE/CALCIUM BMB 1 EACH POWD.PACK GT SCH ×2 (09:25→17:21)
[2023-08-02] MEDS: VITS A AND D/WHITE PET/LANOLIN 5 GM PACKET TP SCH (09:26)
[2023-08-02] MEDS: PROSOURCE / PROSTAT (PYXIS) 30 ML UDC GT SCH ×2 (09:26→17:21)
[2023-08-02] MEDS: IV D5/0.45 NACL 1,000 ML IV PRN ×2 (11:15→20:09)
[2023-08-02] MEDS: INSULIN REGULAR, HUMAN 100 UNIT/ML 3 ML VIAL SQ PRN ×3 (11:23→23:58)
[2023-08-02] MEDS: GLUCERNA 1.2 1,000 ML BOTTLE GT PRN (14:30)
[2023-08-02] MEDS: TAMSULOSIN 0.4 MG CAP.SR.24H GT SCH (21:58)
[2023-08-02] MEDS: ACETAMINOPHEN 325 MG TABLET MC PRN ×2 (23:03→23:15)
[2023-08-03] VITALS (24 sets, daily range): BP systolic 91–130; BP diastolic 51–80; TEMP 97.5–99.8; O2SAT 95–100
[2023-08-03] MEDS: PROPOFOL 100 ML IV PRN ×5 (03:17→22:58)
[2023-08-03] MEDS: BLOOD SUGAR DIAGNOSTIC 1 EACH STRIP IN SCH ×3 (07:10→18:39)
[2023-08-03] MEDS: IV D5/0.45 NACL 1,000 ML IV PRN ×2 (07:11→17:57)
[2023-08-03 08:31] LABS: BASOPHILS # (AUTO) 0.2 K/uL (0.0-0.2); BASOPHILS % (AUTO) 1.4 % (0.0-2.0); EOSINOPHILS # (AUTO) 0.7 K/uL (0.0-0.7); EOSINOPHILS % (AUTO) 6.1 % (0.0-6.0); HEMATOCRIT 28 % (39-51); HEMOGLOBIN 8.6 g/dL (13.5-17.5); LYMPHOCYTES # (AUTO) 1.4 K/uL (0.8-4.8); LYMPHOCYTES % (AUTO) 12.2 % (20.0-44.0); MEAN CORPUSCULAR HEMOGLOBIN 26 PG (26.0-33.0); MEAN CORPUSCULAR HGB CONC 31 g/dl (31.0-36.0); MEAN CORPUSCULAR VOLUME 82 fL (80-96); MONOCYTES % (AUTO) 9.1 % (2.0-12.0); NEUTROPHILS % (AUTO) 71.2 % (43.0-81.0); PLATELET COUNT (AUTO) 489 K/uL (150-450); RED BLOOD CELL COUNT(AUTO) 3.35 MIL/uL (4.5-6.0); WHITE BLOOD COUNT (AUTO) 11.3 K/uL (4.3-11.0)
[2023-08-03] MEDS: FERROUS SULFATE UDC 300 MG/5 ML UDC GT SCH (08:37)
[2023-08-03] MEDS: ASPIRIN 81 MG TAB.CHEW GT SCH (08:37)
[2023-08-03] MEDS: ARGININE/GLUTAMINE/CALCIUM BMB 1 EACH POWD.PACK GT SCH ×2 (08:37→18:17)
[2023-08-03] MEDS: ACIDOPHILUS/BULGARICUS 1 EACH TAB.CHEW GT SCH (08:38)
[2023-08-03] MEDS: PANTOPRAZOLE 40 MG/PACK PACK GT SCH (08:38)
[2023-08-03] MEDS: PROSOURCE / PROSTAT (PYXIS) 30 ML UDC GT SCH ×2 (08:38→18:17)
[2023-08-03] MEDS: ASCORBIC ACID 500 MG TABLET GT SCH (08:38)
[2023-08-03] MEDS: MULTIVITAMINS,THERAGRAN 1 UDTAB TABLET GT SCH (08:38)
[2023-08-03] MEDS: ZINC SULFATE 220 MG CAPSULE GT SCH (08:38)
[2023-08-03 08:47] LABS: ALANINE AMINOTRANSFERASE 15 U/L (12-78); ALBUMIN 1.7 g/dL (3.4-5.0); ALKALINE PHOSPHATASE 100 U/L (46-116); ASPARTATE AMINOTRANSFERASE 20 U/L (15-37); BILIRUBIN,TOTAL 0.1 mg/dL (0.2-1.0); CALCIUM, SERUM 8.3 mg/dL (8.5-10.1); CARBON DIOXIDE 20 mmol/L (21-32); CHLORIDE 107 mmol/L (98-107); CREATININE 1.6 mg/dL (0.6-1.3); GLUCOSE 92 mg/dL (74-106); MAGNESIUM 2.6 mg/dL (1.8-2.4); PHOSPHORUS 3.9 mg/dL (2.5-4.9); POTASSIUM 3.9 mmol/L (3.5-5.1); SODIUM SERUM 138 mmol/L (136-145); TOTAL PROTEIN, SERUM 6.5 g/dL (6.4-8.2)
[2023-08-03 08:48] LABS: UREA NITROGEN, BLOOD 100 mg/dL (7-18)
[2023-08-03] MEDS: HYDROGEL DRESSING 90 GM TUBE TP SCH (09:05)
[2023-08-03] MEDS: VITS A AND D/WHITE PET/LANOLIN 5 GM PACKET TP SCH (09:05)
[2023-08-03 09:23] LABS: ANISOCYTOSIS 1+; BAND % (MANUAL) 1 % (0.0-5.0); EOSINOPHILS % (MANUAL) 6 % (0-4); LYMPHOCYTES % (MANUAL) 13 % (16-48); MONOCYTES % (MANUAL) 7 % (0-11.0); MYELOCYTES % 4 % (0-0); NEUTROPHILS % (MANUAL) 69 (42-76); PLATELET ESTIMATE INCREASED
[2023-08-03] MEDS: INSULIN REGULAR, HUMAN 100 UNIT/ML 3 ML VIAL SQ PRN ×2 (11:25→18:40)
[2023-08-03] MEDS: GLUCERNA 1.2 1,000 ML BOTTLE GT PRN (13:17)
[2023-08-03] MEDS: TAMSULOSIN 0.4 MG CAP.SR.24H GT SCH (22:21)
[2023-08-04] VITALS (24 sets, daily range): BP systolic 94–129; BP diastolic 54–75; TEMP 97.4–98; O2SAT 98–100
[2023-08-04] MEDS: BLOOD SUGAR DIAGNOSTIC 1 EACH STRIP IN SCH ×4 (00:09→17:36)
[2023-08-04] MEDS: INSULIN REGULAR, HUMAN 100 UNIT/ML 3 ML VIAL SQ PRN ×3 (00:26→11:33)
[2023-08-04] MEDS: PROPOFOL 100 ML IV PRN ×4 (02:54→21:09)
[2023-08-04] MEDS: IV D5/0.45 NACL 1,000 ML IV PRN (04:25)
[2023-08-04 04:51] LABS: BASOPHILS # (AUTO) 0.1 K/uL (0.0-0.2); BASOPHILS % (AUTO) 0.9 % (0.0-2.0); EOSINOPHILS # (AUTO) 0.9 K/uL (0.0-0.7); HEMATOCRIT 27 % (39-51); HEMOGLOBIN 8.6 g/dL (13.5-17.5); LYMPHOCYTES # (AUTO) 0.9 K/uL (0.8-4.8); LYMPHOCYTES % (AUTO) 8.8 % (20.0-44.0); MEAN CORPUSCULAR HEMOGLOBIN 26 PG (26.0-33.0); MEAN CORPUSCULAR HGB CONC 32 g/dl (31.0-36.0); MEAN CORPUSCULAR VOLUME 82 fL (80-96); MONOCYTES # (AUTO) 0.7 K/uL (0.1-1.30); MONOCYTES % (AUTO) 6.6 % (2.0-12.0); NEUTROPHILS # (AUTO) 7.8 K/uL (1.8-8.9); NEUTROPHILS % (AUTO) 74.7 % (43.0-81.0); PLATELET COUNT (AUTO) 493 K/uL (150-450); RED BLOOD CELL COUNT(AUTO) 3.34 MIL/uL (4.5-6.0); RED CELL DISTRIBUTION WIDTH 20.2 % (11.5-15.0); WHITE BLOOD COUNT (AUTO) 10.4 K/uL (4.3-11.0)
[2023-08-04 05:09] LABS: ALANINE AMINOTRANSFERASE 17 U/L (12-78); ALBUMIN 1.6 g/dL (3.4-5.0); ALKALINE PHOSPHATASE 101 U/L (46-116); ASPARTATE AMINOTRANSFERASE 25 U/L (15-37); BILIRUBIN,TOTAL 0.1 mg/dL (0.2-1.0); CALCIUM, SERUM 8.3 mg/dL (8.5-10.1); CARBON DIOXIDE 22 mmol/L (21-32); CHLORIDE 103 mmol/L (98-107); CREATININE 1.5 mg/dL (0.6-1.3); GLUCOSE 191 mg/dL (74-106); MAGNESIUM 2.6 mg/dL (1.8-2.4); PHOSPHORUS 4.2 mg/dL (2.5-4.9); POTASSIUM 4.6 mmol/L (3.5-5.1); SODIUM SERUM 134 mmol/L (136-145); TOTAL PROTEIN, SERUM 6.3 g/dL (6.4-8.2)
[2023-08-04 05:30] LABS: UREA NITROGEN, BLOOD 94 mg/dL (7-18)
[2023-08-04 06:12] LABS: BAND % (MANUAL) 7 % (0.0-5.0); EOSINOPHILS % (MANUAL) 7 % (0-4); LYMPHOCYTES % (MANUAL) 10 % (16-48); MONOCYTES % (MANUAL) 8 % (0-11.0); MYELOCYTES % 6 % (0-0); NEUTROPHILS % (MANUAL) 62 (42-76)
[2023-08-04 06:13] LABS: ANISOCYTOSIS 1+; PLATELET ESTIMATE INCREASED
[2023-08-04] MEDS: PROSOURCE / PROSTAT (PYXIS) 30 ML UDC GT SCH ×2 (08:44→17:00)
[2023-08-04] MEDS: ASPIRIN 81 MG TAB.CHEW GT SCH (08:44)
[2023-08-04] MEDS: PANTOPRAZOLE 40 MG/PACK PACK GT SCH (08:44)
[2023-08-04] MEDS: ACIDOPHILUS/BULGARICUS 1 EACH TAB.CHEW GT SCH (08:44)
[2023-08-04] MEDS: FERROUS SULFATE UDC 300 MG/5 ML UDC GT SCH (08:44)
[2023-08-04] MEDS: ARGININE/GLUTAMINE/CALCIUM BMB 1 EACH POWD.PACK GT SCH ×2 (08:44→17:00)
[2023-08-04] MEDS: ZINC SULFATE 220 MG CAPSULE GT SCH (08:45)
[2023-08-04] MEDS: ASCORBIC ACID 500 MG TABLET GT SCH (08:45)
[2023-08-04] MEDS: MULTIVITAMINS,THERAGRAN 1 UDTAB TABLET GT SCH (08:45)
[2023-08-04] MEDS: HYDROGEL DRESSING 90 GM TUBE TP SCH (09:00)
[2023-08-04] MEDS: VITS A AND D/WHITE PET/LANOLIN 5 GM PACKET TP SCH (09:01)
[2023-08-04] MEDS: IV NS 0.9% 1,000 ML IV PRN ×2 (11:31→22:01)
[2023-08-04] MEDS: GLUCERNA 1.2 1,000 ML BOTTLE GT PRN (19:49)
[2023-08-04] MEDS ORDERED: VECURONIUM 10 MG VIAL IV ONE (20:16)
[2023-08-04] MEDS: TAMSULOSIN 0.4 MG CAP.SR.24H GT SCH (22:20)
[2023-08-05] VITALS (25 sets, daily range): BP systolic 92–140; BP diastolic 56–73; TEMP 97.2–98; O2SAT 96–100
[2023-08-05] MEDS: BLOOD SUGAR DIAGNOSTIC 1 EACH STRIP IN SCH ×4 (00:28→17:46)
[2023-08-05] MEDS: INSULIN REGULAR, HUMAN 100 UNIT/ML 3 ML VIAL SQ PRN ×3 (00:32→17:52)
[2023-08-05] MEDS: PROPOFOL 100 ML IV PRN ×4 (02:16→23:04)
[2023-08-05] MEDS: IV NS 0.9% 1,000 ML IV PRN ×2 (07:56→18:13)
[2023-08-05 08:29] LABS: BASOPHILS # (AUTO) 0.1 K/uL (0.0-0.2); BASOPHILS % (AUTO) 0.7 % (0.0-2.0); EOSINOPHILS # (AUTO) 0.3 K/uL (0.0-0.7); EOSINOPHILS % (AUTO) 1.9 % (0.0-6.0); HEMATOCRIT 27 % (39-51); HEMOGLOBIN 8.3 g/dL (13.5-17.5); LYMPHOCYTES # (AUTO) 0.9 K/uL (0.8-4.8); LYMPHOCYTES % (AUTO) 6.5 % (20.0-44.0); MEAN CORPUSCULAR HEMOGLOBIN 25 PG (26.0-33.0); MEAN CORPUSCULAR HGB CONC 31 g/dl (31.0-36.0); MEAN CORPUSCULAR VOLUME 82 fL (80-96); MONOCYTES # (AUTO) 0.5 K/uL (0.1-1.30); MONOCYTES % (AUTO) 3.4 % (2.0-12.0); NEUTROPHILS # (AUTO) 12.3 K/uL (1.8-8.9); NEUTROPHILS % (AUTO) 87.5 % (43.0-81.0); PLATELET COUNT (AUTO) 592 K/uL (150-450); RED BLOOD CELL COUNT(AUTO) 3.25 MIL/uL (4.5-6.0); RED CELL DISTRIBUTION WIDTH 19.9 % (11.5-15.0); WHITE BLOOD COUNT (AUTO) 14.1 K/uL (4.3-11.0)
[2023-08-05 08:34] LABS: ALANINE AMINOTRANSFERASE 17 U/L (12-78); ALBUMIN 1.5 g/dL (3.4-5.0); ALKALINE PHOSPHATASE 101 U/L (46-116); ASPARTATE AMINOTRANSFERASE 16 U/L (15-37); BILIRUBIN,TOTAL 0.2 mg/dL (0.2-1.0); CALCIUM, SERUM 8.3 mg/dL (8.5-10.1); CARBON DIOXIDE 18 mmol/L (21-32); CHLORIDE 109 mmol/L (98-107); CREATININE 1.5 mg/dL (0.6-1.3); GLUCOSE 144 mg/dL (74-106); MAGNESIUM 2.4 mg/dL (1.8-2.4); PHOSPHORUS 4.1 mg/dL (2.5-4.9); POTASSIUM 3.6 mmol/L (3.5-5.1); SODIUM SERUM 136 mmol/L (136-145); TOTAL PROTEIN, SERUM 5.9 g/dL (6.4-8.2); UREA NITROGEN, BLOOD 72 mg/dL (7-18)
[2023-08-05] MEDS: PANTOPRAZOLE 40 MG/PACK PACK GT SCH (09:07)
[2023-08-05] MEDS: FERROUS SULFATE UDC 300 MG/5 ML UDC GT SCH (09:07)
[2023-08-05] MEDS: ASCORBIC ACID 500 MG TABLET GT SCH (09:08)
[2023-08-05] MEDS: ARGININE/GLUTAMINE/CALCIUM BMB 1 EACH POWD.PACK GT SCH ×2 (09:08→21:31)
[2023-08-05] MEDS: ASPIRIN 81 MG TAB.CHEW GT SCH (09:08)
[2023-08-05] MEDS: ZINC SULFATE 220 MG CAPSULE GT SCH (09:08)
[2023-08-05] MEDS: ACIDOPHILUS/BULGARICUS 1 EACH TAB.CHEW GT SCH (09:08)
[2023-08-05] MEDS: MULTIVITAMINS,THERAGRAN 1 UDTAB TABLET GT SCH (09:08)
[2023-08-05] MEDS: HYDROGEL DRESSING 90 GM TUBE TP SCH (09:09)
[2023-08-05] MEDS: PROSOURCE / PROSTAT (PYXIS) 30 ML UDC GT SCH ×2 (09:09→21:31)
[2023-08-05] MEDS: VITS A AND D/WHITE PET/LANOLIN 5 GM PACKET TP SCH (09:10)
[2023-08-05 09:35] LABS: BAND % (MANUAL) 11 % (0.0-5.0); EOSINOPHILS % (MANUAL) 2 % (0-4); LYMPHOCYTES % (MANUAL) 5 % (16-48); MONOCYTES % (MANUAL) 3 % (0-11.0); MYELOCYTES % 4 % (0-0); NEUTROPHILS % (MANUAL) 75 (42-76)
[2023-08-05 09:36] LABS: ANISOCYTOSIS 1+; PLATELET ESTIMATE INCREASED
[2023-08-05] MEDS: QUETIAPINE FUMARATE 25 MG TABLET PO SCH (16:23)
[2023-08-05] MEDS: GLUCERNA 1.2 1,000 ML BOTTLE GT PRN (19:52)
[2023-08-05] MEDS: TAMSULOSIN 0.4 MG CAP.SR.24H GT SCH (21:30)
[2023-08-06] VITALS (33 sets, daily range): BP systolic 98–133; BP diastolic 49–73; TEMP 98.5–102; O2SAT 94–100
[2023-08-06] MEDS: BLOOD SUGAR DIAGNOSTIC 1 EACH STRIP IN SCH ×6 (00:02→23:52)
[2023-08-06] MEDS: INSULIN REGULAR, HUMAN 100 UNIT/ML 3 ML VIAL SQ PRN ×4 (00:05→23:54)
[2023-08-06] MEDS: ACETAMINOPHEN 325 MG TABLET MC PRN (00:30)
[2023-08-06 03:58] LABS: BASOPHILS # (AUTO) 0.1 K/uL (0.0-0.2); EOSINOPHILS # (AUTO) 0.3 K/uL (0.0-0.7); EOSINOPHILS % (AUTO) 2.7 % (0.0-6.0); HEMATOCRIT 24 % (39-51); HEMOGLOBIN 7.5 g/dL (13.5-17.5); MEAN CORPUSCULAR HEMOGLOBIN 25 PG (26.0-33.0); MEAN CORPUSCULAR HGB CONC 31 g/dl (31.0-36.0); MEAN CORPUSCULAR VOLUME 81 fL (80-96); MONOCYTES # (AUTO) 0.6 K/uL (0.1-1.30); MONOCYTES % (AUTO) 4.7 % (2.0-12.0); NEUTROPHILS # (AUTO) 10.7 K/uL (1.8-8.9); NEUTROPHILS % (AUTO) 83.6 % (43.0-81.0); PLATELET COUNT (AUTO) 615 K/uL (150-450); RED BLOOD CELL COUNT(AUTO) 2.99 MIL/uL (4.5-6.0); RED CELL DISTRIBUTION WIDTH 19.8 % (11.5-15.0); WHITE BLOOD COUNT (AUTO) 12.8 K/uL (4.3-11.0)
[2023-08-06] MEDS: PROPOFOL 100 ML IV PRN ×3 (04:08→19:33)
[2023-08-06 04:17] LABS: ALANINE AMINOTRANSFERASE 17 U/L (12-78); ALKALINE PHOSPHATASE 95 U/L (46-116); ASPARTATE AMINOTRANSFERASE 12 U/L (15-37); BILIRUBIN,TOTAL 0.1 mg/dL (0.2-1.0); CALCIUM, SERUM 7.9 mg/dL (8.5-10.1); CARBON DIOXIDE 19 mmol/L (21-32); CHLORIDE 112 mmol/L (98-107); CREATININE 1.3 mg/dL (0.6-1.3); GLUCOSE 99 mg/dL (74-106); MAGNESIUM 2.3 mg/dL (1.8-2.4); PHOSPHORUS 2.9 mg/dL (2.5-4.9); POTASSIUM 3.6 mmol/L (3.5-5.1); SODIUM SERUM 143 mmol/L (136-145); TOTAL PROTEIN, SERUM 5.6 g/dL (6.4-8.2); UREA NITROGEN, BLOOD 72 mg/dL (7-18)
[2023-08-06] MEDS: IV NS 0.9% 1,000 ML IV PRN (04:33)
[2023-08-06 04:34] LABS: ALBUMIN 1.4 g/dL (3.4-5.0)
[2023-08-06] MEDS: ASCORBIC ACID 500 MG TABLET GT SCH (08:33)
[2023-08-06] MEDS: QUETIAPINE FUMARATE 25 MG TABLET PO SCH ×2 (08:33→17:20)
[2023-08-06] MEDS: ASPIRIN 81 MG TAB.CHEW GT SCH (08:33)
[2023-08-06] MEDS: PANTOPRAZOLE 40 MG/PACK PACK GT SCH (08:34)
[2023-08-06] MEDS: ACIDOPHILUS/BULGARICUS 1 EACH TAB.CHEW GT SCH (08:34)
[2023-08-06] MEDS: MULTIVITAMINS,THERAGRAN 1 UDTAB TABLET GT SCH (08:34)
[2023-08-06] MEDS: ZINC SULFATE 220 MG CAPSULE GT SCH (08:34)
[2023-08-06] MEDS: FERROUS SULFATE UDC 300 MG/5 ML UDC GT SCH (08:35)
[2023-08-06] MEDS: ACETAMINOPHEN 650 MG/20.3 ML UDC GT PRN ×2 (09:06→21:54)
[2023-08-06] MEDS: ARGININE/GLUTAMINE/CALCIUM BMB 1 EACH POWD.PACK GT SCH ×2 (11:04→21:00)
[2023-08-06] MEDS: PROSOURCE / PROSTAT (PYXIS) 30 ML UDC GT SCH ×2 (11:04→23:57)
[2023-08-06] MEDS: VITS A AND D/WHITE PET/LANOLIN 5 GM PACKET TP SCH (11:05)
[2023-08-06] MEDS: HYDROGEL DRESSING 90 GM TUBE TP SCH (11:05)
[2023-08-06] MEDS: CEFEPIME 2 GM in IV D5W 100 ML IV SCH (17:49)
[2023-08-06 18:59] LABS: APPEARANCE,URINE SLIGHTLY CLOUDY (CLEAR); BILIRUBIN,URINE NEGATIVE (NEGATIVE); BLOOD, URINE 3+ Ery/uL (NEGATIVE); COLOR,URINE YELLOW (YELLOW); KETONES,URINE NEGATIVE (NEGATIVE); LEUKOCYTE ESTERASE ,URINE NEGATIVE (NEGATIVE); NITRITE, URINE NEGATIVE (NEGATIVE); PH,URINE 5.5 (5.0-8.0); PROTEIN,URINE 1+ mg/dl (NEGATIVE); UGLUCOSE NEGATIVE (NEGATIVE); UROBILINOGEN,URINE 0.2 EU/dL (0.2)
[2023-08-06 19:11] LABS: ADD URINE CULTURE NO; BACTERIA,URINE 1+ /HPF (None Seen)
[2023-08-06 19:12] LABS: MUCUS,URINE Few /LPF (None Seen)
[2023-08-06] MEDS: TAMSULOSIN 0.4 MG CAP.SR.24H GT SCH (21:48)
[2023-08-07] VITALS (26 sets, daily range): BP systolic 96–143; BP diastolic 57–88; TEMP 98.4–101; O2SAT 97–100
[2023-08-07] MEDS: IV NS 0.9% 1,000 ML IV PRN ×2 (03:36→13:00)
[2023-08-07] MEDS: PROPOFOL 100 ML IV PRN ×3 (03:38→20:20)
[2023-08-07 04:44] LABS: BASOPHILS # (AUTO) 0.1 K/uL (0.0-0.2); BASOPHILS % (AUTO) 1.1 % (0.0-2.0); EOSINOPHILS # (AUTO) 0.1 K/uL (0.0-0.7); EOSINOPHILS % (AUTO) 1.1 % (0.0-6.0); HEMATOCRIT 26 % (39-51); LYMPHOCYTES % (AUTO) 7.9 % (20.0-44.0); MEAN CORPUSCULAR HEMOGLOBIN 26 PG (26.0-33.0); MEAN CORPUSCULAR HGB CONC 31 g/dl (31.0-36.0); MEAN CORPUSCULAR VOLUME 82 fL (80-96); MONOCYTES # (AUTO) 0.8 K/uL (0.1-1.30); MONOCYTES % (AUTO) 6.2 % (2.0-12.0); NEUTROPHILS # (AUTO) 10.3 K/uL (1.8-8.9); NEUTROPHILS % (AUTO) 83.7 % (43.0-81.0); PLATELET COUNT (AUTO) 681 K/uL (150-450); RED BLOOD CELL COUNT(AUTO) 3.15 MIL/uL (4.5-6.0); RED CELL DISTRIBUTION WIDTH 20.1 % (11.5-15.0); WHITE BLOOD COUNT (AUTO) 12.3 K/uL (4.3-11.0)
[2023-08-07 04:59] LABS: ALANINE AMINOTRANSFERASE 17 U/L (12-78); ALBUMIN 1.5 g/dL (3.4-5.0); ALKALINE PHOSPHATASE 103 U/L (46-116); ASPARTATE AMINOTRANSFERASE 15 U/L (15-37); BILIRUBIN,TOTAL 0.2 mg/dL (0.2-1.0); CALCIUM, SERUM 8.2 mg/dL (8.5-10.1); CARBON DIOXIDE 19 mmol/L (21-32); CHLORIDE 112 mmol/L (98-107); CREATININE 1.4 mg/dL (0.6-1.3); GLUCOSE 211 mg/dL (74-106); MAGNESIUM 2.3 mg/dL (1.8-2.4); PHOSPHORUS 3.1 mg/dL (2.5-4.9); POTASSIUM 3.6 mmol/L (3.5-5.1); SODIUM SERUM 142 mmol/L (136-145); TOTAL PROTEIN, SERUM 6.2 g/dL (6.4-8.2); UREA NITROGEN, BLOOD 63 mg/dL (7-18)
[2023-08-07] MEDS: BLOOD SUGAR DIAGNOSTIC 1 EACH STRIP IN SCH ×3 (05:30→18:09)
[2023-08-07] MEDS: INSULIN REGULAR, HUMAN 100 UNIT/ML 3 ML VIAL SQ PRN ×2 (05:30→11:50)
[2023-08-07] MEDS: CEFEPIME 2 GM in IV D5W 100 ML IV SCH ×2 (05:31→18:13)
[2023-08-07] MEDS: ACETAMINOPHEN 650 MG/20.3 ML UDC GT PRN ×2 (05:40→21:33)
[2023-08-07] MEDS: ASCORBIC ACID 500 MG TABLET GT SCH (08:41)
[2023-08-07] MEDS: PANTOPRAZOLE 40 MG/PACK PACK GT SCH (08:41)
[2023-08-07] MEDS: MULTIVITAMINS,THERAGRAN 1 UDTAB TABLET GT SCH (08:41)
[2023-08-07] MEDS: ASPIRIN 81 MG TAB.CHEW GT SCH (08:41)
[2023-08-07] MEDS: QUETIAPINE FUMARATE 25 MG TABLET PO SCH ×2 (08:41→21:30)
[2023-08-07] MEDS: ZINC SULFATE 220 MG CAPSULE GT SCH (08:41)
[2023-08-07] MEDS: FERROUS SULFATE UDC 300 MG/5 ML UDC GT SCH (08:41)
[2023-08-07] MEDS: ACIDOPHILUS/BULGARICUS 1 EACH TAB.CHEW GT SCH (08:41)
[2023-08-07] MEDS: ARGININE/GLUTAMINE/CALCIUM BMB 1 EACH POWD.PACK GT SCH ×2 (08:42→21:29)
[2023-08-07] MEDS: PROSOURCE / PROSTAT (PYXIS) 30 ML UDC GT SCH ×2 (08:42→21:29)
[2023-08-07] MEDS: HYDROGEL DRESSING 90 GM TUBE TP SCH (10:42)
[2023-08-07] MEDS: VITS A AND D/WHITE PET/LANOLIN 5 GM PACKET TP SCH (10:42)
[2023-08-07] MEDS: TAMSULOSIN 0.4 MG CAP.SR.24H GT SCH (21:29)
[2023-08-07] MEDS: GLUCERNA 1.2 1,000 ML BOTTLE GT PRN (21:34)
[2023-08-08] VITALS (24 sets, daily range): BP systolic 95–138; BP diastolic 52–79; TEMP 97.5–99.8; O2SAT 92–100
[2023-08-08] MEDS: BLOOD SUGAR DIAGNOSTIC 1 EACH STRIP IN SCH ×5 (00:05→23:23)
[2023-08-08] MEDS: IV NS 0.9% 1,000 ML IV PRN ×2 (00:06→10:58)
[2023-08-08] MEDS: INSULIN REGULAR, HUMAN 100 UNIT/ML 3 ML VIAL SQ PRN ×5 (00:07→23:25)
[2023-08-08] MEDS: PROPOFOL 100 ML IV PRN (03:52)
[2023-08-08 04:22] LABS: CALCIUM, SERUM 8.2 mg/dL (8.5-10.1); CARBON DIOXIDE 21 mmol/L (21-32); CHLORIDE 112 mmol/L (98-107); CREATININE 1.4 mg/dL (0.6-1.3); GLUCOSE 238 mg/dL (74-106); POTASSIUM 4.3 mmol/L (3.5-5.1); SODIUM SERUM 143 mmol/L (136-145); UREA NITROGEN, BLOOD 70 mg/dL (7-18)
[2023-08-08 04:32] LABS: BASOPHILS # (AUTO) 0.1 K/uL (0.0-0.2); EOSINOPHILS % (AUTO) 0.5 % (0.0-6.0); HEMATOCRIT 24 % (39-51); HEMOGLOBIN 7.4 g/dL (13.5-17.5); LYMPHOCYTES # (AUTO) 0.4 K/uL (0.8-4.8); LYMPHOCYTES % (AUTO) 5.5 % (20.0-44.0); MEAN CORPUSCULAR HEMOGLOBIN 25 PG (26.0-33.0); MEAN CORPUSCULAR HGB CONC 31 g/dl (31.0-36.0); MEAN CORPUSCULAR VOLUME 82 fL (80-96); MONOCYTES # (AUTO) 0.6 K/uL (0.1-1.30); MONOCYTES % (AUTO) 7.6 % (2.0-12.0); NEUTROPHILS # (AUTO) 6.8 K/uL (1.8-8.9); NEUTROPHILS % (AUTO) 85.4 % (43.0-81.0); PLATELET COUNT (AUTO) 602 K/uL (150-450); RED BLOOD CELL COUNT(AUTO) 2.92 MIL/uL (4.5-6.0); RED CELL DISTRIBUTION WIDTH 19.9 % (11.5-15.0); WHITE BLOOD COUNT (AUTO) 7.9 K/uL (4.3-11.0)
[2023-08-08 05:00] LABS: ANISOCYTOSIS 1+; BAND % (MANUAL) 6 % (0.0-5.0); LYMPHOCYTES % (MANUAL) 2 % (16-48); MONOCYTES % (MANUAL) 5 % (0-11.0); NEUTROPHILS % (MANUAL) 87 (42-76); PLATELET ESTIMATE INCREASED
[2023-08-08] MEDS: CEFEPIME 2 GM in IV D5W 100 ML IV SCH ×2 (05:45→17:51)
[2023-08-08] MEDS ORDERED: VANCOMYCIN HCL 0.75 GM in IV D5W 250 ML IV ONE (07:00)
[2023-08-08] MEDS ORDERED: VANCOMYCIN 1 GM in IV D5W 250ml IV ONE (08:00)
[2023-08-08] MEDS: PANTOPRAZOLE 40 MG/PACK PACK GT SCH (08:12)
[2023-08-08] MEDS: ASPIRIN 81 MG TAB.CHEW GT SCH (08:12)
[2023-08-08] MEDS: ZINC SULFATE 220 MG CAPSULE GT SCH (08:12)
[2023-08-08] MEDS: MULTIVITAMINS,THERAGRAN 1 UDTAB TABLET GT SCH (08:12)
[2023-08-08] MEDS: QUETIAPINE FUMARATE 25 MG TABLET PO SCH ×2 (08:13→21:31)
[2023-08-08] MEDS: FERROUS SULFATE UDC 300 MG/5 ML UDC GT SCH (08:13)
[2023-08-08] MEDS: ACIDOPHILUS/BULGARICUS 1 EACH TAB.CHEW GT SCH (08:13)
[2023-08-08] MEDS: ASCORBIC ACID 500 MG TABLET GT SCH (08:13)
[2023-08-08] MEDS: PROSOURCE / PROSTAT (PYXIS) 30 ML UDC GT SCH ×2 (09:22→21:33)
[2023-08-08] MEDS: ARGININE/GLUTAMINE/CALCIUM BMB 1 EACH POWD.PACK GT SCH ×2 (09:22→21:33)
[2023-08-08] MEDS: HYDROGEL DRESSING 90 GM TUBE TP SCH (09:23)
[2023-08-08] MEDS: VITS A AND D/WHITE PET/LANOLIN 5 GM PACKET TP SCH (09:23)
[2023-08-08] MEDS: ACETAMINOPHEN 650 MG/20.3 ML UDC GT PRN ×2 (16:15→23:54)
[2023-08-08] MEDS: VANCOMYCIN 500 MG in IV D5W 100ml IV SCH (19:36)
[2023-08-08] MEDS: MORPHINE SULFATE INJ 2 MG/ML DISP.SYRIN IV PRN (20:57)
[2023-08-08] MEDS: TAMSULOSIN 0.4 MG CAP.SR.24H GT SCH (21:31)
[2023-08-08] MEDS: GLUCERNA 1.2 1,000 ML BOTTLE GT PRN (23:54)
[2023-08-09] VITALS (24 sets, daily range): BP systolic 108–140; BP diastolic 56–88; TEMP 99.3–99.7; O2SAT 90–100
[2023-08-09 05:00] LABS: BASOPHILS # (AUTO) 0.1 K/uL (0.0-0.2); BASOPHILS % (AUTO) 1.9 % (0.0-2.0); EOSINOPHILS # (AUTO) 0.3 K/uL (0.0-0.7); EOSINOPHILS % (AUTO) 5.2 % (0.0-6.0); HEMATOCRIT 23 % (39-51); HEMOGLOBIN 7.2 g/dL (13.5-17.5); LYMPHOCYTES # (AUTO) 0.7 K/uL (0.8-4.8); LYMPHOCYTES % (AUTO) 13.2 % (20.0-44.0); MEAN CORPUSCULAR HEMOGLOBIN 25 PG (26.0-33.0); MEAN CORPUSCULAR HGB CONC 31 g/dl (31.0-36.0); MEAN CORPUSCULAR VOLUME 81 fL (80-96); MONOCYTES # (AUTO) 0.5 K/uL (0.1-1.30); MONOCYTES % (AUTO) 9.4 % (2.0-12.0); NEUTROPHILS # (AUTO) 3.7 K/uL (1.8-8.9); NEUTROPHILS % (AUTO) 70.3 % (43.0-81.0); PLATELET COUNT (AUTO) 673 K/uL (150-450); RED BLOOD CELL COUNT(AUTO) 2.84 MIL/uL (4.5-6.0); RED CELL DISTRIBUTION WIDTH 19.7 % (11.5-15.0); WHITE BLOOD COUNT (AUTO) 5.3 K/uL (4.3-11.0)
[2023-08-09 05:08] LABS: CALCIUM, SERUM 8.3 mg/dL (8.5-10.1); CARBON DIOXIDE 21 mmol/L (21-32); CHLORIDE 115 mmol/L (98-107); CREATININE 1.5 mg/dL (0.6-1.3); GLUCOSE 97 mg/dL (74-106); POTASSIUM 3.7 mmol/L (3.5-5.1); SODIUM SERUM 145 mmol/L (136-145)
[2023-08-09] MEDS: CEFEPIME 2 GM in IV D5W 100 ML IV SCH ×2 (05:15→18:02)
[2023-08-09 05:24] LABS: UREA NITROGEN, BLOOD 90 mg/dL (7-18)
[2023-08-09 05:39] LABS: ANISOCYTOSIS 1+; BAND % (MANUAL) 6 % (0.0-5.0); EOSINOPHILS % (MANUAL) 7 % (0-4); LYMPHOCYTES % (MANUAL) 11 % (16-48); MONOCYTES % (MANUAL) 12 % (0-11.0); NEUTROPHILS % (MANUAL) 64 (42-76); PLATELET ESTIMATE INCREASED
[2023-08-09] MEDS: BLOOD SUGAR DIAGNOSTIC 1 EACH STRIP IN SCH ×4 (06:01→23:52)
[2023-08-09] MEDS: VANCOMYCIN 500 MG in IV D5W 100ml IV SCH (08:20)
[2023-08-09] MEDS: FERROUS SULFATE UDC 300 MG/5 ML UDC GT SCH (08:31)
[2023-08-09] MEDS: PROSOURCE / PROSTAT (PYXIS) 30 ML UDC GT SCH ×2 (08:31→20:50)
[2023-08-09] MEDS: ASPIRIN 81 MG TAB.CHEW GT SCH (08:31)
[2023-08-09] MEDS: PANTOPRAZOLE 40 MG/PACK PACK GT SCH (08:31)
[2023-08-09] MEDS: ASCORBIC ACID 500 MG TABLET GT SCH (08:32)
[2023-08-09] MEDS: QUETIAPINE FUMARATE 25 MG TABLET PO SCH ×2 (08:32→20:47)
[2023-08-09] MEDS: MULTIVITAMINS,THERAGRAN 1 UDTAB TABLET GT SCH (08:32)
[2023-08-09] MEDS: ZINC SULFATE 220 MG CAPSULE GT SCH (08:32)
[2023-08-09] MEDS: ACIDOPHILUS/BULGARICUS 1 EACH TAB.CHEW GT SCH (08:32)
[2023-08-09] MEDS: ARGININE/GLUTAMINE/CALCIUM BMB 1 EACH POWD.PACK GT SCH ×2 (08:33→20:50)
[2023-08-09] MEDS: VITS A AND D/WHITE PET/LANOLIN 5 GM PACKET TP SCH (08:34)
[2023-08-09] MEDS: HYDROGEL DRESSING 90 GM TUBE TP SCH (08:34)
[2023-08-09] MEDS: INSULIN REGULAR, HUMAN 100 UNIT/ML 3 ML VIAL SQ PRN ×3 (10:59→23:53)
[2023-08-09] MEDS: dexaMETHasone SOD PHOSPHATE 10 MG/ML VIAL IV SCH (12:35)
[2023-08-09 15:40] LABS: BILIRUBIN,DIRECT 0.1 mg/dL (0.0-0.2); BILIRUBIN,TOTAL 0.2 mg/dL (0.2-1.0); TOTAL PROTEIN, SERUM 5.9 g/dL (6.4-8.2)
[2023-08-09 15:45] LABS: ALBUMIN 1.3 g/dL (3.4-5.0)
[2023-08-09 15:51] LABS: FERRITIN 352 ng/mL (8-388)
[2023-08-09] MEDS ORDERED: REMDESIVIR (CHARGED) 200 MG, *LOADING DOSE 1 EA in IV NS 0.9% 210 ML IV ONE (16:00)
[2023-08-09 16:09] LABS: C-REACTIVE PROTEIN > 12.0 mg/dL (0.0-0.9)
[2023-08-09 16:14] LABS: INR 1.1 (0.91-1.10); PARTIAL THROMBOPLASTIN TIME 25.4 SEC (24.3-34.3); PROTHROMBIN TIME 11.6 SECS (9.2-11.1)
[2023-08-09] MEDS: GLUCERNA 1.2 1,000 ML BOTTLE GT PRN (18:08)
[2023-08-09] MEDS: LORAZEPAM INJ 2 MG/ML VIAL IVP PRN (20:44)
[2023-08-09] MEDS: MORPHINE SULFATE INJ 2 MG/ML DISP.SYRIN IV PRN (20:48)
[2023-08-09] MEDS: TAMSULOSIN 0.4 MG CAP.SR.24H GT SCH (20:57)
[2023-08-10] VITALS (25 sets, daily range): BP systolic 101–139; BP diastolic 58–86; TEMP 98–99.9; O2SAT 97–100
[2023-08-10] MEDS: CEFEPIME 2 GM in IV D5W 100 ML IV SCH (05:19)
[2023-08-10 05:28] LABS: BASOPHILS % (AUTO) 0.1 % (0.0-2.0); EOSINOPHILS % (AUTO) 0.1 % (0.0-6.0); HEMATOCRIT 26 % (39-51); HEMOGLOBIN 8.1 g/dL (13.5-17.5); LYMPHOCYTES # (AUTO) 0.9 K/uL (0.8-4.8); LYMPHOCYTES % (AUTO) 12.9 % (20.0-44.0); MEAN CORPUSCULAR HEMOGLOBIN 26 PG (26.0-33.0); MEAN CORPUSCULAR HGB CONC 31 g/dl (31.0-36.0); MEAN CORPUSCULAR VOLUME 82 fL (80-96); MONOCYTES # (AUTO) 0.9 K/uL (0.1-1.30); NEUTROPHILS # (AUTO) 5.3 K/uL (1.8-8.9); NEUTROPHILS % (AUTO) 74.9 % (43.0-81.0); PLATELET COUNT (AUTO) 807 K/uL (150-450); RED BLOOD CELL COUNT(AUTO) 3.15 MIL/uL (4.5-6.0); RED CELL DISTRIBUTION WIDTH 19.9 % (11.5-15.0); WHITE BLOOD COUNT (AUTO) 7.1 K/uL (4.3-11.0)
[2023-08-10] MEDS: BLOOD SUGAR DIAGNOSTIC 1 EACH STRIP IN SCH ×4 (05:31→23:27)
[2023-08-10 05:36] LABS: CALCIUM, SERUM 9.1 mg/dL (8.5-10.1); CARBON DIOXIDE 19 mmol/L (21-32); CHLORIDE 111 mmol/L (98-107); CREATININE 1.8 mg/dL (0.6-1.3); GLUCOSE 215 mg/dL (74-106); POTASSIUM 4.6 mmol/L (3.5-5.1); SODIUM SERUM 143 mmol/L (136-145)
[2023-08-10 05:40] LABS: UREA NITROGEN, BLOOD 108 mg/dL (7-18)
[2023-08-10] MEDS: INSULIN REGULAR, HUMAN 100 UNIT/ML 3 ML VIAL SQ PRN ×4 (05:54→23:29)
[2023-08-10 06:03] LABS: LYMPHOCYTES % (MANUAL) 12 % (16-48); MONOCYTES % (MANUAL) 2 % (0-11.0); NEUTROPHILS % (MANUAL) 86 (42-76)
[2023-08-10 06:04] LABS: ANISOCYTOSIS 1+; PLATELET ESTIMATE INCREASED
[2023-08-10] MEDS: FERROUS SULFATE UDC 300 MG/5 ML UDC GT SCH (08:07)
[2023-08-10] MEDS: ACIDOPHILUS/BULGARICUS 1 EACH TAB.CHEW GT SCH (08:07)
[2023-08-10] MEDS: ZINC SULFATE 220 MG CAPSULE GT SCH (08:07)
[2023-08-10] MEDS: PANTOPRAZOLE 40 MG/PACK PACK GT SCH (08:07)
[2023-08-10] MEDS: dexaMETHasone SOD PHOSPHATE 10 MG/ML VIAL IV SCH (08:07)
[2023-08-10] MEDS: ASPIRIN 81 MG TAB.CHEW GT SCH (08:07)
[2023-08-10] MEDS: PROSOURCE / PROSTAT (PYXIS) 30 ML UDC GT SCH (08:08)
[2023-08-10] MEDS: ARGININE/GLUTAMINE/CALCIUM BMB 1 EACH POWD.PACK GT SCH ×2 (08:08→20:11)
[2023-08-10] MEDS: ASCORBIC ACID 500 MG TABLET GT SCH (08:08)
[2023-08-10] MEDS: QUETIAPINE FUMARATE 25 MG TABLET PO SCH (08:08)
[2023-08-10] MEDS: MULTIVITAMINS,THERAGRAN 1 UDTAB TABLET GT SCH (08:08)
[2023-08-10] MEDS: VITS A AND D/WHITE PET/LANOLIN 5 GM PACKET TP SCH (08:09)
[2023-08-10] MEDS: HYDROGEL DRESSING 90 GM TUBE TP SCH (08:09)
[2023-08-10] MEDS: LORAZEPAM INJ 2 MG/ML VIAL IVP PRN (12:04)
[2023-08-10] MEDS ORDERED: NEPRO 1,000 ML BOTTLE GT PRN (14:00)
[2023-08-10] MEDS: IV NS 0.9% 1,000 ML IV PRN (14:05)
[2023-08-10] MEDS: REMDESIVIR (CHARGED) 100 MG in IV NS 0.9% 100 ML IV SCH (15:00)
[2023-08-10 15:18] LABS: CREATININE, URINE 13.3 MG/DL (30.0-125.0); URINE TOTAL PROTEIN 93.1 mg/dL (0-11.9)
[2023-08-10 15:20] LABS: APPEARANCE,URINE SLIGHTLY CLOUDY (CLEAR); BILIRUBIN,URINE NEGATIVE (NEGATIVE); BLOOD, URINE 1+ Ery/uL (NEGATIVE); COLOR,URINE YELLOW (YELLOW); KETONES,URINE NEGATIVE (NEGATIVE); LEUKOCYTE ESTERASE ,URINE NEGATIVE (NEGATIVE); NITRITE, URINE NEGATIVE (NEGATIVE); PH,URINE 5.5 (5.0-8.0); PROTEIN,URINE 2+ mg/dl (NEGATIVE); UGLUCOSE TRACE mg/dL (NEGATIVE); UROBILINOGEN,URINE 0.2 EU/dL (0.2)
[2023-08-10 17:07] LABS: ABG BASE EXCESS -5.9 mmol/L; ABG OXYGEN SATURATION 96.6 % (92.0-98.5); ABG PH 7.328 (7.350-7.450); ABG PO2 92.8 mmHg (75.0-100.0); ABG TOTAL HEMOGLOBIN 9.2 G/dL (13.5-18.0); AaDO2 148.7 mmHg; COHb 0.3 % (0.5-1.5); O2Hb 96.3 % (94.0-97.0); PEEP,BG 5 cm H2O; SITE, ABG Right Radial; VENT MODE, BG AC 40%; VT, ABG 400 mL
[2023-08-10 17:12] LABS: WBC,URINE 0-2 /HPF (0-3)
[2023-08-10 17:13] LABS: ADD URINE CULTURE NO; BACTERIA,URINE RARE /HPF (None Seen); SQUAMOUS EPITHELIAL CELL,UR 0-2 /HPF (None Seen); URINE AMORPHOUS URATE Many /HPF (None Seen)
[2023-08-10 17:14] LABS: COARSE GRANULAR CASTS,URINE Few /LPF (None Seen)
[2023-08-10 17:15] LABS: EOSINOPHIL,URINE None Seen
[2023-08-10] MEDS: MORPHINE SULFATE INJ 2 MG/ML DISP.SYRIN IV PRN (20:12)
[2023-08-10] MEDS: QUETIAPINE FUMARATE 25 MG TABLET GT SCH (20:14)
[2023-08-10] MEDS: TAMSULOSIN 0.4 MG CAP.SR.24H GT SCH (22:47)
[2023-08-11] VITALS (25 sets, daily range): BP systolic 103–132; BP diastolic 57–76; TEMP 98–100.4; O2SAT 96–100
[2023-08-11] MEDS: ACETAMINOPHEN 650 MG/20.3 ML UDC GT PRN (03:20)
[2023-08-11 05:17] LABS: BASOPHILS # (AUTO) 0.1 K/uL (0.0-0.2); BASOPHILS % (AUTO) 0.6 % (0.0-2.0); EOSINOPHILS # (AUTO) 0.1 K/uL (0.0-0.7); EOSINOPHILS % (AUTO) 1.1 % (0.0-6.0); HEMATOCRIT 22 % (39-51); HEMOGLOBIN 7.1 g/dL (13.5-17.5); LYMPHOCYTES # (AUTO) 1.1 K/uL (0.8-4.8); LYMPHOCYTES % (AUTO) 11.2 % (20.0-44.0); MEAN CORPUSCULAR HEMOGLOBIN 26 PG (26.0-33.0); MEAN CORPUSCULAR HGB CONC 32 g/dl (31.0-36.0); MEAN CORPUSCULAR VOLUME 81 fL (80-96); MONOCYTES # (AUTO) 1.4 K/uL (0.1-1.30); MONOCYTES % (AUTO) 13.7 % (2.0-12.0); NEUTROPHILS # (AUTO) 7.4 K/uL (1.8-8.9); NEUTROPHILS % (AUTO) 73.4 % (43.0-81.0); PLATELET COUNT (AUTO) 658 K/uL (150-450); RED BLOOD CELL COUNT(AUTO) 2.73 MIL/uL (4.5-6.0); RED CELL DISTRIBUTION WIDTH 19.4 % (11.5-15.0); WHITE BLOOD COUNT (AUTO) 10.1 K/uL (4.3-11.0)
[2023-08-11 05:53] LABS: ANISOCYTOSIS 1+; BAND % (MANUAL) 4 % (0.0-5.0); EOSINOPHILS % (MANUAL) 1 % (0-4); LYMPHOCYTES % (MANUAL) 13 % (16-48); METAMYELOCYTES % 1 % (0-0); MONOCYTES % (MANUAL) 16 % (0-11.0); MYELOCYTES % 5 % (0-0); NEUTROPHILS % (MANUAL) 60 (42-76); PLATELET ESTIMATE INCREASED
[2023-08-11 06:07] LABS: ALANINE AMINOTRANSFERASE 16 U/L (12-78); ALKALINE PHOSPHATASE 79 U/L (46-116); ASPARTATE AMINOTRANSFERASE 8 U/L (15-37); BILIRUBIN,DIRECT 0.1 mg/dL (0.0-0.2); BILIRUBIN,TOTAL 0.2 mg/dL (0.2-1.0); CALCIUM, SERUM 8.5 mg/dL (8.5-10.1); CARBON DIOXIDE 22 mmol/L (21-32); CHLORIDE 114 mmol/L (98-107); CREATININE 1.9 mg/dL (0.6-1.3); GLUCOSE 199 mg/dL (74-106); MAGNESIUM 2.2 mg/dL (1.8-2.4); PHOSPHORUS 3.9 mg/dL (2.5-4.9); SODIUM SERUM 147 mmol/L (136-145)
[2023-08-11] MEDS: IV NS 0.9% 1,000 ML IV PRN ×2 (06:09→23:58)
[2023-08-11 06:14] LABS: ALBUMIN 1.3 g/dL (3.4-5.0); UREA NITROGEN, BLOOD 127 mg/dL (7-18)
[2023-08-11] MEDS: BLOOD SUGAR DIAGNOSTIC 1 EACH STRIP IN SCH ×3 (06:22→17:21)
[2023-08-11] MEDS: INSULIN REGULAR, HUMAN 100 UNIT/ML 3 ML VIAL SQ PRN ×3 (06:24→17:28)
[2023-08-11 06:28] LABS: CREATINE KINASE, TOTAL 26 U/L (39-308); FERRITIN 315 ng/mL (8-388)
[2023-08-11 06:47] LABS: C-REACTIVE PROTEIN 7.1 mg/dL (0.0-0.9)
[2023-08-11] MEDS: ZINC SULFATE 220 MG CAPSULE GT SCH (08:03)
[2023-08-11] MEDS: ASPIRIN 81 MG TAB.CHEW GT SCH (08:03)
[2023-08-11] MEDS: FERROUS SULFATE UDC 300 MG/5 ML UDC GT SCH (08:03)
[2023-08-11] MEDS: ASCORBIC ACID 500 MG TABLET GT SCH (08:04)
[2023-08-11] MEDS: dexaMETHasone SOD PHOSPHATE 10 MG/ML VIAL IV SCH (08:04)
[2023-08-11] MEDS: QUETIAPINE FUMARATE 25 MG TABLET GT SCH ×2 (08:04→21:20)
[2023-08-11] MEDS: ACIDOPHILUS/BULGARICUS 1 EACH TAB.CHEW GT SCH (08:04)
[2023-08-11] MEDS: MULTIVITAMINS,THERAGRAN 1 UDTAB TABLET GT SCH (08:04)
[2023-08-11] MEDS: PANTOPRAZOLE 40 MG/PACK PACK GT SCH (08:13)
[2023-08-11] MEDS: CEFEPIME 2 GM in IV D5W 100 ML IV SCH (08:13)
[2023-08-11] MEDS: HYDROGEL DRESSING 90 GM TUBE TP SCH (08:14)
[2023-08-11] MEDS: VITS A AND D/WHITE PET/LANOLIN 5 GM PACKET TP SCH (08:14)
[2023-08-11] MEDS: ARGININE/GLUTAMINE/CALCIUM BMB 1 EACH POWD.PACK GT SCH ×2 (10:25→21:20)
[2023-08-11] MEDS: MORPHINE SULFATE INJ 2 MG/ML DISP.SYRIN IV PRN (14:00)
[2023-08-11] MEDS: REMDESIVIR (CHARGED) 100 MG in IV NS 0.9% 100 ML IV SCH (15:04)
[2023-08-11] MEDS: TAMSULOSIN 0.4 MG CAP.SR.24H GT SCH (21:20)
[2023-08-11] MEDS: NEPRO 1,000 ML BOTTLE GT PRN (21:21)
[2023-08-12] VITALS (25 sets, daily range): BP systolic 92–134; BP diastolic 48–79; TEMP 98–99.5; O2SAT 93–100
[2023-08-12] MEDS: BLOOD SUGAR DIAGNOSTIC 1 EACH STRIP IN SCH ×4 (00:12→18:01)
[2023-08-12] MEDS: INSULIN REGULAR, HUMAN 100 UNIT/ML 3 ML VIAL SQ PRN ×4 (00:12→18:03)
[2023-08-12 03:41] LABS: HEMATOCRIT 22 % (39-51); LYMPHOCYTES % (AUTO) 11.7 % (20.0-44.0); MEAN CORPUSCULAR HEMOGLOBIN 26 PG (26.0-33.0); MEAN CORPUSCULAR HGB CONC 32 g/dl (31.0-36.0); MEAN CORPUSCULAR VOLUME 80 fL (80-96); NEUTROPHILS % (AUTO) 74.1 % (43.0-81.0); PLATELET COUNT (AUTO) 617 K/uL (150-450); RED CELL DISTRIBUTION WIDTH 19.3 % (11.5-15.0); WHITE BLOOD COUNT (AUTO) 10.8 K/uL (4.3-11.0)
[2023-08-12 03:42] LABS: BASOPHILS % (AUTO) 0.3 % (0.0-2.0); EOSINOPHILS # (AUTO) 0.3 K/uL (0.0-0.7); LYMPHOCYTES # (AUTO) 1.3 K/uL (0.8-4.8); MONOCYTES # (AUTO) 1.2 K/uL (0.1-1.30); MONOCYTES % (AUTO) 10.9 % (2.0-12.0)
[2023-08-12 04:11] LABS: HEMOGLOBIN 6.9 g/dL (13.5-17.5)
[2023-08-12 04:19] LABS: ALANINE AMINOTRANSFERASE 13 U/L (12-78); ALKALINE PHOSPHATASE 77 U/L (46-116); ASPARTATE AMINOTRANSFERASE 12 U/L (15-37); BILIRUBIN,TOTAL 0.2 mg/dL (0.2-1.0); CALCIUM, SERUM 8.6 mg/dL (8.5-10.1); CARBON DIOXIDE 22 mmol/L (21-32); CHLORIDE 112 mmol/L (98-107); CREATININE 1.4 mg/dL (0.6-1.3); GLUCOSE 122 mg/dL (74-106); MAGNESIUM 1.8 mg/dL (1.8-2.4); PHOSPHORUS 2.2 mg/dL (2.5-4.9); POTASSIUM 3.2 mmol/L (3.5-5.1); SODIUM SERUM 144 mmol/L (136-145); TOTAL PROTEIN, SERUM 5.5 g/dL (6.4-8.2)
[2023-08-12 04:22] LABS: UREA NITROGEN, BLOOD 87 mg/dL (7-18)
[2023-08-12 04:26] LABS: ANISOCYTOSIS 1+; EOSINOPHILS % (MANUAL) 2 % (0-4); LYMPHOCYTES % (MANUAL) 13 % (16-48); MONOCYTES % (MANUAL) 12 % (0-11.0); NEUTROPHILS % (MANUAL) 73 (42-76); PLATELET ESTIMATE INCREASED
[2023-08-12 04:31] LABS: ALBUMIN 1.2 g/dL (3.4-5.0)
[2023-08-12] MEDS: ACETAMINOPHEN 650 MG/20.3 ML UDC GT PRN (05:34)
[2023-08-12 06:06] LABS: PTH, INTACT 34 pg/mL (15-65)
[2023-08-12] MEDS: FERROUS SULFATE UDC 300 MG/5 ML UDC GT SCH (08:44)
[2023-08-12] MEDS: ASPIRIN 81 MG TAB.CHEW GT SCH (08:44)
[2023-08-12] MEDS: QUETIAPINE FUMARATE 25 MG TABLET GT SCH ×2 (08:45→21:04)
[2023-08-12] MEDS: PANTOPRAZOLE 40 MG/PACK PACK GT SCH (08:45)
[2023-08-12] MEDS: ACIDOPHILUS/BULGARICUS 1 EACH TAB.CHEW GT SCH (08:45)
[2023-08-12] MEDS: ARGININE/GLUTAMINE/CALCIUM BMB 1 EACH POWD.PACK GT SCH ×2 (08:45→21:04)
[2023-08-12] MEDS: MULTIVITAMINS,THERAGRAN 1 UDTAB TABLET GT SCH (08:45)
[2023-08-12] MEDS: ASCORBIC ACID 500 MG TABLET GT SCH (08:45)
[2023-08-12] MEDS: dexaMETHasone SOD PHOSPHATE 10 MG/ML VIAL IV SCH (08:45)
[2023-08-12] MEDS: CEFEPIME 2 GM in IV D5W 100 ML IV SCH (08:45)
[2023-08-12] MEDS: ZINC SULFATE 220 MG CAPSULE GT SCH (08:45)
[2023-08-12] MEDS: POTASSIUM CL. PREMIX PERIPHER. 50 ML IV SCH ×4 (08:47→12:26)
[2023-08-12] MEDS: HYDROGEL DRESSING 90 GM TUBE TP SCH (08:48)
[2023-08-12] MEDS: VITS A AND D/WHITE PET/LANOLIN 5 GM PACKET TP SCH (08:48)
[2023-08-12 11:10] LABS: INR 1.45 (0.91-1.10)
[2023-08-12 12:06] LABS: *SPE A/G RATIO 0.6 (0.7-1.7); *SPE ALBUMIN 1.9 g/dL (2.9-4.4); *SPE ALPHA-1-GLOBULIN 0.4 g/dL (0.0-0.4); *SPE ALPHA-2-GLOBULIN 1.1 g/dL (0.4-1.0); *SPE BETA GLOBULIN 0.8 g/dL (0.7-1.3); *SPE GLOBULIN, TOTAL 3.4 g/dL (2.2-3.9); *SPE M-SPIKE Not Observed g/dL (Not Observed); *SPE PROTEIN TOTAL 5.3 g/dL (6.0-8.5); *SPEGAMMA GLOBULIN 1.1 g/dL (0.4-1.8)
[2023-08-12] MEDS ORDERED: NEUTRA PHOS 1 POWD.PACKET PO ONE (14:00)
[2023-08-12] MEDS: MORPHINE SULFATE INJ 2 MG/ML DISP.SYRIN IV PRN (15:56)
[2023-08-12] MEDS: REMDESIVIR (CHARGED) 100 MG in IV NS 0.9% 100 ML IV SCH (15:56)
[2023-08-12] MEDS: IV NS 0.9% 1,000 ML IV PRN (20:01)
[2023-08-12] MEDS: NEPRO 1,000 ML BOTTLE GT PRN (20:08)
[2023-08-12 20:44] LABS: OCCULT BLOOD STOOL NEGATIVE (NEGATIVE)
[2023-08-12] MEDS: TAMSULOSIN 0.4 MG CAP.SR.24H GT SCH (21:04)
[2023-08-13] VITALS (30 sets, daily range): BP systolic 93–147; BP diastolic 52–87; TEMP 98–99.1; O2SAT 93–100
[2023-08-13] MEDS: BLOOD SUGAR DIAGNOSTIC 1 EACH STRIP IN SCH ×5 (00:40→23:32)
[2023-08-13] MEDS: INSULIN REGULAR, HUMAN 100 UNIT/ML 3 ML VIAL SQ PRN ×5 (00:51→23:34)
[2023-08-13] MEDS: MORPHINE SULFATE INJ 2 MG/ML DISP.SYRIN IV PRN (03:12)
[2023-08-13 04:58] LABS: BASOPHILS % (AUTO) 0.1 % (0.0-2.0); EOSINOPHILS # (AUTO) 0.1 K/uL (0.0-0.7); EOSINOPHILS % (AUTO) 0.6 % (0.0-6.0); HEMATOCRIT 29 % (39-51); LYMPHOCYTES # (AUTO) 0.6 K/uL (0.8-4.8); LYMPHOCYTES % (AUTO) 3.7 % (20.0-44.0); MEAN CORPUSCULAR HEMOGLOBIN 25 PG (26.0-33.0); MEAN CORPUSCULAR HGB CONC 31 g/dl (31.0-36.0); MEAN CORPUSCULAR VOLUME 82 fL (80-96); MONOCYTES # (AUTO) 0.2 K/uL (0.1-1.30); MONOCYTES % (AUTO) 1.1 % (2.0-12.0); NEUTROPHILS # (AUTO) 14.4 K/uL (1.8-8.9); NEUTROPHILS % (AUTO) 94.5 % (43.0-81.0); PLATELET COUNT (AUTO) 600 K/uL (150-450); RED BLOOD CELL COUNT(AUTO) 3.57 MIL/uL (4.5-6.0); RED CELL DISTRIBUTION WIDTH 19.4 % (11.5-15.0); WHITE BLOOD COUNT (AUTO) 15.2 K/uL (4.3-11.0)
[2023-08-13 05:12] LABS: CALCIUM, SERUM 9.3 mg/dL (8.5-10.1); CREATININE 1.3 mg/dL (0.6-1.3); POTASSIUM 4.1 mmol/L (3.5-5.1)
[2023-08-13 06:43] LABS: ABG BASE EXCESS -7.5 mmol/L; ABG OXYGEN SATURATION 93.5 % (92.0-98.5); ABG PCO2 56.9 mmHg (35.0-45.0); ABG PH 7.179 (7.350-7.450); ABG PO2 80.3 mmHg (75.0-100.0); ABG TOTAL HEMOGLOBIN 8.7 G/dL (13.5-18.0); AaDO2 212.2 mmHg; COHb 0.3 % (0.5-1.5); MetHb 0.3 % (0.0-1.5); O2Hb 92.9 % (94.0-97.0); SITE, ABG Right Radial
[2023-08-13] MEDS: CEFEPIME 2 GM in IV D5W 100 ML IV SCH (08:09)
[2023-08-13] MEDS: ASCORBIC ACID 500 MG TABLET GT SCH (08:10)
[2023-08-13] MEDS: PANTOPRAZOLE 40 MG/PACK PACK GT SCH (08:10)
[2023-08-13] MEDS: FERROUS SULFATE UDC 300 MG/5 ML UDC GT SCH (08:10)
[2023-08-13] MEDS: QUETIAPINE FUMARATE 25 MG TABLET GT SCH ×2 (08:10→21:27)
[2023-08-13] MEDS: ACIDOPHILUS/BULGARICUS 1 EACH TAB.CHEW GT SCH (08:10)
[2023-08-13] MEDS: ASPIRIN 81 MG TAB.CHEW GT SCH (08:10)
[2023-08-13] MEDS: MULTIVITAMINS,THERAGRAN 1 UDTAB TABLET GT SCH (08:11)
[2023-08-13] MEDS: ZINC SULFATE 220 MG CAPSULE GT SCH (08:11)
[2023-08-13] MEDS: dexaMETHasone SOD PHOSPHATE 10 MG/ML VIAL IV SCH (08:11)
[2023-08-13] MEDS: HYDROGEL DRESSING 90 GM TUBE TP SCH (09:14)
[2023-08-13] MEDS: ARGININE/GLUTAMINE/CALCIUM BMB 1 EACH POWD.PACK GT SCH ×2 (09:14→21:28)
[2023-08-13] MEDS: VITS A AND D/WHITE PET/LANOLIN 5 GM PACKET TP SCH (09:14)
[2023-08-13 11:07] LABS: HEPATITIS B SURFACE AB Reactive (.)
[2023-08-13 11:07] LABS: HEPATITIS B CORE AB, IgM Negative (Negative)
[2023-08-13] MEDS: REMDESIVIR (CHARGED) 100 MG in IV NS 0.9% 100 ML IV SCH (17:11)
[2023-08-13] MEDS: IV NS 0.9% 1,000 ML IV PRN (17:12)
[2023-08-13] MEDS: TAMSULOSIN 0.4 MG CAP.SR.24H GT SCH (21:27)
[2023-08-13] MEDS: NEPRO 1,000 ML BOTTLE GT PRN (23:34)
[2023-08-14] VITALS (33 sets, daily range): BP systolic 105–150; BP diastolic 55–121; TEMP 98.5–99.6; O2SAT 93–100
[2023-08-14 03:39] LABS: EOSINOPHILS % (AUTO) 0.2 % (0.0-6.0); HEMATOCRIT 23 % (39-51); HEMOGLOBIN 7.4 g/dL (13.5-17.5); LYMPHOCYTES # (AUTO) 0.7 K/uL (0.8-4.8); LYMPHOCYTES % (AUTO) 3.6 % (20.0-44.0); MEAN CORPUSCULAR HEMOGLOBIN 26 PG (26.0-33.0); MEAN CORPUSCULAR HGB CONC 32 g/dl (31.0-36.0); MEAN CORPUSCULAR VOLUME 82 fL (80-96); MONOCYTES # (AUTO) 0.8 K/uL (0.1-1.30); MONOCYTES % (AUTO) 3.9 % (2.0-12.0); NEUTROPHILS # (AUTO) 18.6 K/uL (1.8-8.9); NEUTROPHILS % (AUTO) 92.3 % (43.0-81.0); PLATELET COUNT (AUTO) 457 K/uL (150-450); RED BLOOD CELL COUNT(AUTO) 2.82 MIL/uL (4.5-6.0); RED CELL DISTRIBUTION WIDTH 19.2 % (11.5-15.0); WHITE BLOOD COUNT (AUTO) 20.1 K/uL (4.3-11.0)
[2023-08-14 04:01] LABS: CALCIUM, SERUM 8.2 mg/dL (8.5-10.1); CARBON DIOXIDE 23 mmol/L (21-32); CHLORIDE 109 mmol/L (98-107); CREATININE 1.9 mg/dL (0.6-1.3); GLUCOSE 188 mg/dL (74-106); MAGNESIUM 1.9 mg/dL (1.8-2.4); PHOSPHORUS 2.5 mg/dL (2.5-4.9); POTASSIUM 3.9 mmol/L (3.5-5.1); SODIUM SERUM 142 mmol/L (136-145)
[2023-08-14 04:05] LABS: UREA NITROGEN, BLOOD 101 mg/dL (7-18)
[2023-08-14] MEDS: BLOOD SUGAR DIAGNOSTIC 1 EACH STRIP IN SCH ×3 (06:07→18:17)
[2023-08-14] MEDS: QUETIAPINE FUMARATE 25 MG TABLET GT SCH ×2 (09:07→20:48)
[2023-08-14] MEDS: dexaMETHasone SOD PHOSPHATE 10 MG/ML VIAL IV SCH (09:07)
[2023-08-14] MEDS: ASPIRIN 81 MG TAB.CHEW GT SCH (09:07)
[2023-08-14] MEDS: ACIDOPHILUS/BULGARICUS 1 EACH TAB.CHEW GT SCH (09:07)
[2023-08-14] MEDS: ASCORBIC ACID 500 MG TABLET GT SCH (09:07)
[2023-08-14] MEDS: FERROUS SULFATE UDC 300 MG/5 ML UDC GT SCH (09:07)
[2023-08-14] MEDS: MULTIVITAMINS,THERAGRAN 1 UDTAB TABLET GT SCH (09:07)
[2023-08-14] MEDS: ZINC SULFATE 220 MG CAPSULE GT SCH (09:07)
[2023-08-14] MEDS: PANTOPRAZOLE 40 MG/PACK PACK GT SCH (09:07)
[2023-08-14] MEDS: HYDROGEL DRESSING 90 GM TUBE TP SCH (09:08)
[2023-08-14] MEDS: VITS A AND D/WHITE PET/LANOLIN 5 GM PACKET TP SCH (09:08)
[2023-08-14] MEDS: CEFEPIME 2 GM in IV D5W 100 ML IV SCH (09:13)
[2023-08-14] MEDS: ARGININE/GLUTAMINE/CALCIUM BMB 1 EACH POWD.PACK GT SCH ×2 (09:15→20:48)
[2023-08-14] MEDS: INSULIN REGULAR, HUMAN 100 UNIT/ML 3 ML VIAL SQ PRN ×2 (12:46→18:19)
[2023-08-14 13:24] LABS: BILIRUBIN,DIRECT 0.1 mg/dL (0.0-0.2); BILIRUBIN,TOTAL 0.2 mg/dL (0.2-1.0); TOTAL PROTEIN, SERUM 5.2 g/dL (6.4-8.2)
[2023-08-14] MEDS: CLOTRIMAZOLE/BETAMETASONE DIPROPIONATE 15 GM TUBE TP SCH ×2 (13:58→17:00)
[2023-08-14] MEDS: CEFTAZIDIME 2 G in IV D5W 100 ML IV SCH (14:00)
[2023-08-14 14:18] LABS: ALBUMIN 1.1 g/dL (3.4-5.0)
[2023-08-14 14:58] LABS: APPEARANCE,URINE CLOUDY (CLEAR); BILIRUBIN,URINE NEGATIVE (NEGATIVE); BLOOD, URINE 2+ Ery/uL (NEGATIVE); COLOR,URINE YELLOW (YELLOW); KETONES,URINE NEGATIVE (NEGATIVE); LEUKOCYTE ESTERASE ,URINE NEGATIVE (NEGATIVE); NITRITE, URINE NEGATIVE (NEGATIVE); PH,URINE 6.5 (5.0-8.0); PROTEIN,URINE 3+ mg/dl (NEGATIVE); UGLUCOSE NEGATIVE (NEGATIVE); UROBILINOGEN,URINE 0.2 EU/dL (0.2)
[2023-08-14 15:18] LABS: ADD URINE CULTURE NO; BACTERIA,URINE 1+ /HPF (None Seen); MUCUS,URINE Many /LPF (None Seen); WBC,URINE 0-2 /HPF (0-3)
[2023-08-14] MEDS: VANCOMYCIN 0.75 GM in IV D5W 250 ML IV SCH (15:36)
[2023-08-14] MEDS: TAMSULOSIN 0.4 MG CAP.SR.24H GT SCH (21:11)
[2023-08-14] MEDS: IV NS 0.9% 1,000 ML IV PRN (23:21)
[2023-08-15] VITALS (21 sets, daily range): BP systolic 117–169; BP diastolic 60–122; TEMP 96.4–99.1; O2SAT 89–100
[2023-08-15] MEDS: BLOOD SUGAR DIAGNOSTIC 1 EACH STRIP IN SCH ×5 (00:17→23:51)
[2023-08-15] MEDS: INSULIN REGULAR, HUMAN 100 UNIT/ML 3 ML VIAL SQ PRN ×5 (00:20→23:51)
[2023-08-15] MEDS: NEPRO 1,000 ML BOTTLE GT PRN (02:17)
[2023-08-15 04:42] LABS: ABG BASE EXCESS -4.5 mmol/L; ABG OXYGEN SATURATION 97.1 % (92.0-98.5); ABG PCO2 41.8 mmHg (35.0-45.0); ABG PH 7.323 (7.350-7.450); ABG TOTAL HEMOGLOBIN 8.8 G/dL (13.5-18.0); AaDO2 431.5 mmHg; COHb 0.3 % (0.5-1.5); O2Hb 96.8 % (94.0-97.0); PEEP,BG 5 cm H2O; SITE, ABG Right Radial; VT, ABG 450 mL
[2023-08-15 04:58] LABS: EOSINOPHILS % (AUTO) 0.1 % (0.0-6.0); HEMATOCRIT 23 % (39-51); HEMOGLOBIN 7.3 g/dL (13.5-17.5); LYMPHOCYTES # (AUTO) 0.7 K/uL (0.8-4.8); LYMPHOCYTES % (AUTO) 3.2 % (20.0-44.0); MEAN CORPUSCULAR HEMOGLOBIN 25 PG (26.0-33.0); MEAN CORPUSCULAR HGB CONC 32 g/dl (31.0-36.0); MEAN CORPUSCULAR VOLUME 80 fL (80-96); MONOCYTES # (AUTO) 0.6 K/uL (0.1-1.30); MONOCYTES % (AUTO) 2.8 % (2.0-12.0); NEUTROPHILS # (AUTO) 21.5 K/uL (1.8-8.9); NEUTROPHILS % (AUTO) 93.9 % (43.0-81.0); PLATELET COUNT (AUTO) 447 K/uL (150-450); RED CELL DISTRIBUTION WIDTH 19.8 % (11.5-15.0); WHITE BLOOD COUNT (AUTO) 22.9 K/uL (4.3-11.0)
[2023-08-15 05:15] LABS: CALCIUM, SERUM 8.5 mg/dL (8.5-10.1); CARBON DIOXIDE 27 mmol/L (21-32); CHLORIDE 107 mmol/L (98-107); CREATININE 1.5 mg/dL (0.6-1.3); GLUCOSE 140 mg/dL (74-106); POTASSIUM 3.7 mmol/L (3.5-5.1); SODIUM SERUM 142 mmol/L (136-145); UREA NITROGEN, BLOOD 62 mg/dL (7-18)
[2023-08-15 05:18] LABS: BILIRUBIN,DIRECT 0.1 mg/dL (0.0-0.2); BILIRUBIN,TOTAL 0.2 mg/dL (0.2-1.0); TOTAL PROTEIN, SERUM 5.8 g/dL (6.4-8.2)
[2023-08-15 05:25] LABS: ALBUMIN 1.3 g/dL (3.4-5.0)
[2023-08-15] MEDS: PANTOPRAZOLE 40 MG/PACK PACK GT SCH (08:36)
[2023-08-15] MEDS: ACIDOPHILUS/BULGARICUS 1 EACH TAB.CHEW GT SCH (08:36)
[2023-08-15] MEDS: FERROUS SULFATE UDC 300 MG/5 ML UDC GT SCH (08:36)
[2023-08-15] MEDS: ASPIRIN 81 MG TAB.CHEW GT SCH (08:36)
[2023-08-15] MEDS: dexaMETHasone SOD PHOSPHATE 10 MG/ML VIAL IV SCH (08:37)
[2023-08-15] MEDS: ZINC SULFATE 220 MG CAPSULE GT SCH (08:37)
[2023-08-15] MEDS: ASCORBIC ACID 500 MG TABLET GT SCH (08:37)
[2023-08-15] MEDS: MULTIVITAMINS,THERAGRAN 1 UDTAB TABLET GT SCH (08:37)
[2023-08-15] MEDS: QUETIAPINE FUMARATE 25 MG TABLET GT SCH ×2 (08:46→21:30)
[2023-08-15] MEDS: ARGININE/GLUTAMINE/CALCIUM BMB 1 EACH POWD.PACK GT SCH ×2 (08:46→21:29)
[2023-08-15] MEDS: CLOTRIMAZOLE/BETAMETASONE DIPROPIONATE 15 GM TUBE TP SCH ×2 (09:25→16:08)
[2023-08-15] MEDS: HYDROGEL DRESSING 90 GM TUBE TP SCH (09:25)
[2023-08-15] MEDS: VITS A AND D/WHITE PET/LANOLIN 5 GM PACKET TP SCH (09:26)
[2023-08-15] MEDS: CEFTAZIDIME 2 G in IV D5W 100 ML IV SCH (14:33)
[2023-08-15] MEDS: VANCOMYCIN 0.75 GM in IV D5W 250 ML IV SCH (15:38)
[2023-08-15] MEDS: IV NS 0.9% 1,000 ML IV PRN (19:17)
[2023-08-15] MEDS: TAMSULOSIN 0.4 MG CAP.SR.24H GT SCH (21:29)
[2023-08-16] VITALS: BP 137/72; TEMP 99; O2SAT 98
[2023-08-16 04:00] VITALS: BP 122/75; TEMP 98.6; O2SAT 99
[2023-08-16] MEDS: BLOOD SUGAR DIAGNOSTIC 1 EACH STRIP IN SCH ×3 (05:32→17:43)
[2023-08-16] MEDS: INSULIN REGULAR, HUMAN 100 UNIT/ML 3 ML VIAL SQ PRN ×3 (05:32→17:48)
[2023-08-16 08:00] VITALS: BP 123/67; TEMP 98.3; O2SAT 99
[2023-08-16 08:15] LABS: EOSINOPHILS # (AUTO) 0.1 K/uL (0.0-0.7); EOSINOPHILS % (AUTO) 0.5 % (0.0-6.0); HEMATOCRIT 24 % (39-51); HEMOGLOBIN 7.4 g/dL (13.5-17.5); LYMPHOCYTES # (AUTO) 0.9 K/uL (0.8-4.8); LYMPHOCYTES % (AUTO) 4.2 % (20.0-44.0); MEAN CORPUSCULAR HEMOGLOBIN 25 PG (26.0-33.0); MEAN CORPUSCULAR HGB CONC 30 g/dl (31.0-36.0); MEAN CORPUSCULAR VOLUME 83 fL (80-96); MONOCYTES # (AUTO) 0.8 K/uL (0.1-1.30); MONOCYTES % (AUTO) 3.7 % (2.0-12.0); NEUTROPHILS # (AUTO) 19.3 K/uL (1.8-8.9); NEUTROPHILS % (AUTO) 91.6 % (43.0-81.0); PLATELET COUNT (AUTO) 356 K/uL (150-450); RED BLOOD CELL COUNT(AUTO) 2.91 MIL/uL (4.5-6.0); RED CELL DISTRIBUTION WIDTH 20.1 % (11.5-15.0)
[2023-08-16 09:16] LABS: CARBON DIOXIDE 22 mmol/L (21-32); CHLORIDE 107 mmol/L (98-107); CREATININE 2.2 mg/dL (0.6-1.3); GLUCOSE 193 mg/dL (74-106); POTASSIUM 4.3 mmol/L (3.5-5.1); SODIUM SERUM 143 mmol/L (136-145)
[2023-08-16 09:21] LABS: UREA NITROGEN, BLOOD 99 mg/dL (7-18)
[2023-08-16] MEDS: HYDROGEL DRESSING 90 GM TUBE TP SCH (09:35)
[2023-08-16] MEDS: CLOTRIMAZOLE/BETAMETASONE DIPROPIONATE 15 GM TUBE TP SCH ×2 (09:35→17:04)
[2023-08-16] MEDS: VITS A AND D/WHITE PET/LANOLIN 5 GM PACKET TP SCH (09:35)
[2023-08-16] MEDS: dexaMETHasone SOD PHOSPHATE 10 MG/ML VIAL IV SCH (09:36)
[2023-08-16] MEDS: PANTOPRAZOLE 40 MG/PACK PACK GT SCH (09:36)
[2023-08-16] MEDS: ACIDOPHILUS/BULGARICUS 1 EACH TAB.CHEW GT SCH (09:36)
[2023-08-16] MEDS: ASCORBIC ACID 500 MG TABLET GT SCH (09:36)
[2023-08-16] MEDS: MULTIVITAMINS,THERAGRAN 1 UDTAB TABLET GT SCH (09:36)
[2023-08-16] MEDS: FERROUS SULFATE UDC 300 MG/5 ML UDC GT SCH (09:36)
[2023-08-16] MEDS: ASPIRIN 81 MG TAB.CHEW GT SCH (09:36)
[2023-08-16] MEDS: ZINC SULFATE 220 MG CAPSULE GT SCH (09:36)
[2023-08-16] MEDS: QUETIAPINE FUMARATE 25 MG TABLET GT SCH ×2 (09:37→21:32)
[2023-08-16] MEDS: ARGININE/GLUTAMINE/CALCIUM BMB 1 EACH POWD.PACK GT SCH ×2 (09:39→22:36)
[2023-08-16 09:59] LABS: ANISOCYTOSIS 1+; BAND % (MANUAL) 2 % (0.0-5.0); EOSINOPHILS % (MANUAL) 1 % (0-4); HYPOCHROMASIA 1+; LYMPHOCYTES % (MANUAL) 6 % (16-48); METAMYELOCYTES % 2 % (0-0); MONOCYTES % (MANUAL) 2 % (0-11.0); NEUTROPHILS % (MANUAL) 87 (42-76); PLATELET ESTIMATE ADEQUATE
[2023-08-16 10:01] LABS: BILIRUBIN,DIRECT 0.2 mg/dL (0.0-0.2); BILIRUBIN,TOTAL 0.3 mg/dL (0.2-1.0); TOTAL PROTEIN, SERUM 6.1 g/dL (6.4-8.2)
[2023-08-16 11:03] LABS: ALBUMIN 1.4 g/dL (3.4-5.0)
[2023-08-16] MEDS: NEPRO 1,000 ML BOTTLE GT PRN (11:52)
[2023-08-16 12:00] VITALS: BP 129/78; TEMP 99.5; O2SAT 99
[2023-08-16] MEDS: CEFTAZIDIME 2 G in IV D5W 100 ML IV SCH (13:27)
[2023-08-16] MEDS: VANCOMYCIN 0.75 GM in IV D5W 250 ML IV SCH (15:01)
[2023-08-16 16:00] VITALS: BP 137/97; TEMP 99.3; O2SAT 99
[2023-08-16 20:00] VITALS: BP 119/68; TEMP 98.2; O2SAT 99
[2023-08-16] MEDS: TAMSULOSIN 0.4 MG CAP.SR.24H GT SCH (21:33)
[2023-08-17] VITALS (8 sets, daily range): BP systolic 102–134; BP diastolic 62–87; TEMP 97.9–100.4; O2SAT 97–100
[2023-08-17] MEDS: INSULIN REGULAR, HUMAN 100 UNIT/ML 3 ML VIAL SQ PRN ×4 (02:08→17:29)
[2023-08-17] MEDS: ACETAMINOPHEN 650 MG/20.3 ML UDC GT PRN ×2 (04:47→12:35)
[2023-08-17] MEDS: BLOOD SUGAR DIAGNOSTIC 1 EACH STRIP IN SCH ×4 (05:52→17:15)
[2023-08-17 07:24] LABS: BASOPHILS % (AUTO) 0.1 % (0.0-2.0); EOSINOPHILS # (AUTO) 0.1 K/uL (0.0-0.7); EOSINOPHILS % (AUTO) 0.3 % (0.0-6.0); LYMPHOCYTES # (AUTO) 0.6 K/uL (0.8-4.8); LYMPHOCYTES % (AUTO) 2.5 % (20.0-44.0); MEAN CORPUSCULAR HEMOGLOBIN 26 PG (26.0-33.0); MEAN CORPUSCULAR HGB CONC 31 g/dl (31.0-36.0); MEAN CORPUSCULAR VOLUME 81 fL (80-96); MONOCYTES # (AUTO) 1.1 K/uL (0.1-1.30); MONOCYTES % (AUTO) 4.5 % (2.0-12.0); NEUTROPHILS # (AUTO) 22.3 K/uL (1.8-8.9); NEUTROPHILS % (AUTO) 92.6 % (43.0-81.0); PLATELET COUNT (AUTO) 314 K/uL (150-450); RED BLOOD CELL COUNT(AUTO) 2.45 MIL/uL (4.5-6.0); RED CELL DISTRIBUTION WIDTH 19.8 % (11.5-15.0); WHITE BLOOD COUNT (AUTO) 24.1 K/uL (4.3-11.0)
[2023-08-17 07:30] LABS: HEMATOCRIT 20 % (39-51)
[2023-08-17 07:32] LABS: CALCIUM, SERUM 8.7 mg/dL (8.5-10.1); CARBON DIOXIDE 23 mmol/L (21-32); CHLORIDE 109 mmol/L (98-107); CREATININE 1.7 mg/dL (0.6-1.3); GLUCOSE 217 mg/dL (74-106); POTASSIUM 3.7 mmol/L (3.5-5.1); SODIUM SERUM 144 mmol/L (136-145); UREA NITROGEN, BLOOD 71 mg/dL (7-18)
[2023-08-17 07:40] LABS: HEMOGLOBIN 6.3 g/dL (13.5-17.5)
[2023-08-17] MEDS: HYDROGEL DRESSING 90 GM TUBE TP SCH (09:00)
[2023-08-17] MEDS: CLOTRIMAZOLE/BETAMETASONE DIPROPIONATE 15 GM TUBE TP SCH ×2 (09:00→17:00)
[2023-08-17] MEDS: VITS A AND D/WHITE PET/LANOLIN 5 GM PACKET TP SCH (09:00)
[2023-08-17] MEDS: MULTIVITAMINS,THERAGRAN 1 UDTAB TABLET GT SCH (09:54)
[2023-08-17] MEDS: ASCORBIC ACID 500 MG TABLET GT SCH (09:54)
[2023-08-17] MEDS: ZINC SULFATE 220 MG CAPSULE GT SCH (09:54)
[2023-08-17] MEDS: PANTOPRAZOLE 40 MG/PACK PACK GT SCH (09:54)
[2023-08-17] MEDS: ACIDOPHILUS/BULGARICUS 1 EACH TAB.CHEW GT SCH (09:54)
[2023-08-17] MEDS: QUETIAPINE FUMARATE 25 MG TABLET GT SCH ×2 (09:54→21:20)
[2023-08-17] MEDS: ASPIRIN 81 MG TAB.CHEW GT SCH (09:54)
[2023-08-17] MEDS: ARGININE/GLUTAMINE/CALCIUM BMB 1 EACH POWD.PACK GT SCH ×2 (09:55→21:20)
[2023-08-17] MEDS: FERROUS SULFATE UDC 300 MG/5 ML UDC GT SCH (09:55)
[2023-08-17] MEDS: dexaMETHasone SOD PHOSPHATE 10 MG/ML VIAL IV SCH (09:55)
[2023-08-17 10:21] LABS: HYPOCHROMASIA 1+; LYMPHOCYTES % (MANUAL) 3 % (16-48); MONOCYTES % (MANUAL) 6 % (0-11.0); NEUTROPHILS % (MANUAL) 91 (42-76); PLATELET ESTIMATE ADEQUATE
[2023-08-17 10:22] LABS: ANISOCYTOSIS 1+
[2023-08-17 10:31] LABS: HEMOGLOBIN 6.2 g/dL (13.5-17.5)
[2023-08-17] MEDS: CEFTAZIDIME 2 G in IV D5W 100 ML IV SCH (13:12)
[2023-08-17] MEDS: IV NS 0.9% 250 ML IV PRN (13:35)
[2023-08-17] MEDS ORDERED: LORAZEPAM INJ 2 MG/ML VIAL IV STA (17:12)
[2023-08-17] MEDS: NEPRO 1,000 ML BOTTLE GT PRN ×2 (17:42→18:18)
[2023-08-17] MEDS: TAMSULOSIN 0.4 MG CAP.SR.24H GT SCH (21:20)
[2023-08-17 22:21] LABS: APPEARANCE,URINE CLOUDY (CLEAR); BILIRUBIN,URINE NEGATIVE (NEGATIVE); BLOOD, URINE 2+ Ery/uL (NEGATIVE); COLOR,URINE YELLOW (YELLOW); KETONES,URINE NEGATIVE (NEGATIVE); LEUKOCYTE ESTERASE ,URINE 2+ (NEGATIVE); NITRITE, URINE NEGATIVE (NEGATIVE); PROTEIN,URINE 2+ mg/dl (NEGATIVE); UGLUCOSE NEGATIVE (NEGATIVE); UROBILINOGEN,URINE 0.2 EU/dL (0.2)
[2023-08-17 23:45] LABS: ADD URINE CULTURE YES; BACTERIA,URINE 3+ /HPF (None Seen); MUCUS,URINE Moderate /LPF (None Seen); SQUAMOUS EPITHELIAL CELL,UR None Seen /HPF (None Seen); YEAST,URINE Hyphal filaments /HPF (None Seen)
[2023-08-18] VITALS (11 sets, daily range): BP systolic 108–167; BP diastolic 57–86; TEMP 98.3–99.5; O2SAT 99
[2023-08-18] MEDS: BLOOD SUGAR DIAGNOSTIC 1 EACH STRIP IN SCH ×4 (00:35→18:04)
[2023-08-18] MEDS: INSULIN REGULAR, HUMAN 100 UNIT/ML 3 ML VIAL SQ PRN ×4 (00:39→18:14)
[2023-08-18] MEDS: LORAZEPAM INJ 2 MG/ML VIAL IVP PRN ×2 (06:26→13:44)
[2023-08-18 08:01] LABS: EOSINOPHILS # (AUTO) 0.2 K/uL (0.0-0.7); EOSINOPHILS % (AUTO) 0.8 % (0.0-6.0); HEMATOCRIT 23 % (39-51); LYMPHOCYTES # (AUTO) 1.7 K/uL (0.8-4.8); LYMPHOCYTES % (AUTO) 5.9 % (20.0-44.0); MEAN CORPUSCULAR HEMOGLOBIN 26 PG (26.0-33.0); MEAN CORPUSCULAR HGB CONC 31 g/dl (31.0-36.0); MEAN CORPUSCULAR VOLUME 83 fL (80-96); MONOCYTES # (AUTO) 1.1 K/uL (0.1-1.30); MONOCYTES % (AUTO) 3.6 % (2.0-12.0); NEUTROPHILS # (AUTO) 25.8 K/uL (1.8-8.9); NEUTROPHILS % (AUTO) 89.7 % (43.0-81.0); PLATELET COUNT (AUTO) 303 K/uL (150-450); RED BLOOD CELL COUNT(AUTO) 2.71 MIL/uL (4.5-6.0); RED CELL DISTRIBUTION WIDTH 19.4 % (11.5-15.0); WHITE BLOOD COUNT (AUTO) 28.8 K/uL (4.3-11.0)
[2023-08-18 08:13] LABS: HEMOGLOBIN 6.9 g/dL (13.5-17.5)
[2023-08-18 08:16] LABS: CALCIUM, SERUM 8.7 mg/dL (8.5-10.1); CARBON DIOXIDE 23 mmol/L (21-32); CHLORIDE 110 mmol/L (98-107); CREATININE 2.4 mg/dL (0.6-1.3); GLUCOSE 163 mg/dL (74-106); POTASSIUM 4.2 mmol/L (3.5-5.1); SODIUM SERUM 144 mmol/L (136-145)
[2023-08-18] MEDS: FERROUS SULFATE UDC 300 MG/5 ML UDC GT SCH (08:17)
[2023-08-18] MEDS: ZINC SULFATE 220 MG CAPSULE GT SCH (08:17)
[2023-08-18 08:18] LABS: UREA NITROGEN, BLOOD 107 mg/dL (7-18)
[2023-08-18] MEDS: ASCORBIC ACID 500 MG TABLET GT SCH (08:36)
[2023-08-18] MEDS: PANTOPRAZOLE 40 MG/PACK PACK GT SCH (08:36)
[2023-08-18] MEDS: MULTIVITAMINS,THERAGRAN 1 UDTAB TABLET GT SCH (08:36)
[2023-08-18] MEDS: ARGININE/GLUTAMINE/CALCIUM BMB 1 EACH POWD.PACK GT SCH ×2 (08:37→21:06)
[2023-08-18] MEDS: ACIDOPHILUS/BULGARICUS 1 EACH TAB.CHEW GT SCH (08:37)
[2023-08-18] MEDS: HYDROGEL DRESSING 90 GM TUBE TP SCH (08:37)
[2023-08-18] MEDS: ASPIRIN 81 MG TAB.CHEW GT SCH (08:37)
[2023-08-18] MEDS: dexaMETHasone SOD PHOSPHATE 10 MG/ML VIAL IV SCH (08:37)
[2023-08-18] MEDS: VITS A AND D/WHITE PET/LANOLIN 5 GM PACKET TP SCH (08:38)
[2023-08-18] MEDS: CLOTRIMAZOLE/BETAMETASONE DIPROPIONATE 15 GM TUBE TP SCH ×2 (08:38→15:47)
[2023-08-18] MEDS: QUETIAPINE FUMARATE 25 MG TABLET GT SCH ×2 (08:39→21:06)
[2023-08-18] MEDS ORDERED: VANCOMYCIN POST DIALYSIS 500MG IV PRN ×2 (10:00)
[2023-08-18 11:16] LABS: EOSINOPHILS % (MANUAL) 1 % (0-4); LYMPHOCYTES % (MANUAL) 6 % (16-48); METAMYELOCYTES % 1 % (0-0); MONOCYTES % (MANUAL) 5 % (0-11.0); NEUTROPHILS % (MANUAL) 87 (42-76); PLATELET ESTIMATE ADEQUATE
[2023-08-18 11:17] LABS: ANISOCYTOSIS 1+; HYPOCHROMASIA 1+
[2023-08-18] MEDS ORDERED: [UNRECOGNIZED DRUG - REMARK] IV PRN (11:30)
[2023-08-18] MEDS: ACETAMINOPHEN 650 MG/20.3 ML UDC GT PRN (13:41)
[2023-08-18] MEDS: CEFTAZIDIME 1 G in IV D5W 50 ML IV SCH (14:03)
[2023-08-18] MEDS ORDERED: VANCOMYCIN 500 MG in IV D5W 100ml IV SCH (15:00)
[2023-08-18] MEDS: COLISTIMETHATE SODIUM 150 MG in IV NS 0.9% 50 ML IV SCH (20:28)
[2023-08-18] MEDS: TAMSULOSIN 0.4 MG CAP.SR.24H GT SCH (21:06)
[2023-08-18] MEDS: NEPRO 1,000 ML BOTTLE GT PRN (23:06)
[2023-08-19] VITALS: BP 114/96; TEMP 99.1; O2SAT 100
[2023-08-19] MEDS: BLOOD SUGAR DIAGNOSTIC 1 EACH STRIP IN SCH ×4 (00:22→18:49)
[2023-08-19] MEDS: INSULIN REGULAR, HUMAN 100 UNIT/ML 3 ML VIAL SQ PRN ×4 (00:23→18:50)
[2023-08-19] MEDS ORDERED: VANCOMYCIN HCL 0.75 GM in IV D5W 250 ML IV SCH (03:00)
[2023-08-19 04:00] VITALS: BP 100/53; TEMP 98.6; O2SAT 94
[2023-08-19 06:48] LABS: BASOPHILS % (AUTO) 0.1 % (0.0-2.0); EOSINOPHILS # (AUTO) 0.3 K/uL (0.0-0.7); EOSINOPHILS % (AUTO) 1.5 % (0.0-6.0); HEMATOCRIT 23 % (39-51); HEMOGLOBIN 7.6 g/dL (13.5-17.5); LYMPHOCYTES # (AUTO) 1.3 K/uL (0.8-4.8); LYMPHOCYTES % (AUTO) 6.5 % (20.0-44.0); MEAN CORPUSCULAR HEMOGLOBIN 27 PG (26.0-33.0); MEAN CORPUSCULAR HGB CONC 32 g/dl (31.0-36.0); MEAN CORPUSCULAR VOLUME 83 fL (80-96); MONOCYTES # (AUTO) 0.9 K/uL (0.1-1.30); MONOCYTES % (AUTO) 4.7 % (2.0-12.0); NEUTROPHILS # (AUTO) 17.1 K/uL (1.8-8.9); NEUTROPHILS % (AUTO) 87.2 % (43.0-81.0); PLATELET COUNT (AUTO) 280 K/uL (150-450); RED BLOOD CELL COUNT(AUTO) 2.82 MIL/uL (4.5-6.0); RED CELL DISTRIBUTION WIDTH 18.5 % (11.5-15.0); WHITE BLOOD COUNT (AUTO) 19.6 K/uL (4.3-11.0)
[2023-08-19 07:09] LABS: CARBON DIOXIDE 28 mmol/L (21-32); CHLORIDE 106 mmol/L (98-107); POTASSIUM 3.3 mmol/L (3.5-5.1); SODIUM SERUM 144 mmol/L (136-145)
[2023-08-19 08:00] VITALS: BP 104/54; TEMP 98.5; O2SAT 99
[2023-08-19 08:11] LABS: CALCIUM, SERUM 8.5 mg/dL (8.5-10.1); CREATININE 1.9 mg/dL (0.6-1.3); GLUCOSE 94 mg/dL (74-106); UREA NITROGEN, BLOOD 66 mg/dL (7-18)
[2023-08-19] MEDS: ZINC SULFATE 220 MG CAPSULE GT SCH (08:28)
[2023-08-19] MEDS: MULTIVITAMINS,THERAGRAN 1 UDTAB TABLET GT SCH (08:28)
[2023-08-19] MEDS: PANTOPRAZOLE 40 MG/PACK PACK GT SCH (08:28)
[2023-08-19] MEDS: ASPIRIN 81 MG TAB.CHEW GT SCH (08:28)
[2023-08-19] MEDS: ACIDOPHILUS/BULGARICUS 1 EACH TAB.CHEW GT SCH (08:28)
[2023-08-19] MEDS: FERROUS SULFATE UDC 300 MG/5 ML UDC GT SCH (08:28)
[2023-08-19] MEDS: ASCORBIC ACID 500 MG TABLET GT SCH (08:28)
[2023-08-19] MEDS: QUETIAPINE FUMARATE 25 MG TABLET GT SCH ×2 (08:28→21:25)
[2023-08-19] MEDS: CLOTRIMAZOLE/BETAMETASONE DIPROPIONATE 15 GM TUBE TP SCH ×2 (08:29→17:00)
[2023-08-19] MEDS: VITS A AND D/WHITE PET/LANOLIN 5 GM PACKET TP SCH (08:29)
[2023-08-19] MEDS: HYDROGEL DRESSING 90 GM TUBE TP SCH (08:29)
[2023-08-19] MEDS: ARGININE/GLUTAMINE/CALCIUM BMB 1 EACH POWD.PACK GT SCH ×2 (08:30→21:25)
[2023-08-19 08:55] LABS: BAND % (MANUAL) 2 % (0.0-5.0); EOSINOPHILS % (MANUAL) 1 % (0-4); LYMPHOCYTES % (MANUAL) 7 % (16-48); MONOCYTES % (MANUAL) 4 % (0-11.0); NEUTROPHILS % (MANUAL) 86 (42-76)
[2023-08-19 08:56] LABS: ANISOCYTOSIS 1+; OVALOCYTES OCC; PLATELET ESTIMATE ADEQUATE
[2023-08-19] MEDS ORDERED: POTASSIUM CL. PREMIX PERIPHER. 50 ML IV SCH (11:00)
[2023-08-19 12:00] VITALS: BP 92/78; TEMP 98.7; O2SAT 100
[2023-08-19] MEDS: CEFTAZIDIME 1 G in IV D5W 50 ML IV SCH (14:23)
[2023-08-19 16:00] VITALS: BP 106/67; TEMP 98.9; O2SAT 100
[2023-08-19 20:00] VITALS: BP 111/79; TEMP 99.1; O2SAT 100
[2023-08-19] MEDS: COLISTIMETHATE SODIUM 150 MG in IV NS 0.9% 50 ML IV SCH (20:29)
[2023-08-19] MEDS: TAMSULOSIN 0.4 MG CAP.SR.24H GT SCH (21:25)
[2023-08-20] VITALS (12 sets, daily range): BP systolic 88–143; BP diastolic 51–124; TEMP 97–100.4; O2SAT 98–100
[2023-08-20] MEDS: IV NS 0.9% 250 ML IV PRN (00:31)
[2023-08-20] MEDS: BLOOD SUGAR DIAGNOSTIC 1 EACH STRIP IN SCH ×4 (00:39→18:22)
[2023-08-20] MEDS: INSULIN REGULAR, HUMAN 100 UNIT/ML 3 ML VIAL SQ PRN ×4 (00:41→18:23)
[2023-08-20] MEDS: ACETAMINOPHEN 650 MG/20.3 ML UDC GT PRN (00:59)
[2023-08-20 06:44] LABS: EOSINOPHILS # (AUTO) 0.8 K/uL (0.0-0.7); LYMPHOCYTES # (AUTO) 1.1 K/uL (0.8-4.8); MONOCYTES # (AUTO) 0.5 K/uL (0.1-1.30); MONOCYTES % (AUTO) 3.4 % (2.0-12.0)
[2023-08-20 07:00] LABS: BASOPHILS % (AUTO) 0.2 % (0.0-2.0); EOSINOPHILS % (AUTO) 5.4 % (0.0-6.0); LYMPHOCYTES % (AUTO) 7.1 % (20.0-44.0); MEAN CORPUSCULAR HEMOGLOBIN 27 PG (26.0-33.0); MEAN CORPUSCULAR HGB CONC 32 g/dl (31.0-36.0); MEAN CORPUSCULAR VOLUME 85 fL (80-96); NEUTROPHILS # (AUTO) 13.1 K/uL (1.8-8.9); NEUTROPHILS % (AUTO) 83.9 % (43.0-81.0); PLATELET COUNT (AUTO) 268 K/uL (150-450); RED BLOOD CELL COUNT(AUTO) 2.41 MIL/uL (4.5-6.0); RED CELL DISTRIBUTION WIDTH 18.8 % (11.5-15.0); WHITE BLOOD COUNT (AUTO) 15.7 K/uL (4.3-11.0)
[2023-08-20 07:10] LABS: CALCIUM, SERUM 7.9 mg/dL (8.5-10.1); CARBON DIOXIDE 27 mmol/L (21-32); CHLORIDE 108 mmol/L (98-107); CREATININE 2.6 mg/dL (0.6-1.3); GLUCOSE 165 mg/dL (74-106); SODIUM SERUM 145 mmol/L (136-145)
[2023-08-20 07:18] LABS: UREA NITROGEN, BLOOD 97 mg/dL (7-18)
[2023-08-20 07:44] LABS: HEMOGLOBIN 6.5 g/dL (13.5-17.5)
[2023-08-20 07:45] LABS: HEMATOCRIT 20 % (39-51)
[2023-08-20] MEDS: ARGININE/GLUTAMINE/CALCIUM BMB 1 EACH POWD.PACK GT SCH ×2 (08:56→21:01)
[2023-08-20] MEDS: ASPIRIN 81 MG TAB.CHEW GT SCH (08:56)
[2023-08-20] MEDS: QUETIAPINE FUMARATE 25 MG TABLET GT SCH ×2 (08:56→21:01)
[2023-08-20] MEDS: FERROUS SULFATE UDC 300 MG/5 ML UDC GT SCH (08:56)
[2023-08-20] MEDS: ACIDOPHILUS/BULGARICUS 1 EACH TAB.CHEW GT SCH (08:56)
[2023-08-20] MEDS: PANTOPRAZOLE 40 MG/PACK PACK GT SCH (08:56)
[2023-08-20] MEDS: ASCORBIC ACID 500 MG TABLET GT SCH (08:57)
[2023-08-20] MEDS: HYDROGEL DRESSING 90 GM TUBE TP SCH (08:57)
[2023-08-20] MEDS: MULTIVITAMINS,THERAGRAN 1 UDTAB TABLET GT SCH (08:57)
[2023-08-20] MEDS: ZINC SULFATE 220 MG CAPSULE GT SCH (08:57)
[2023-08-20] MEDS: CLOTRIMAZOLE/BETAMETASONE DIPROPIONATE 15 GM TUBE TP SCH ×2 (08:58→17:14)
[2023-08-20] MEDS: VITS A AND D/WHITE PET/LANOLIN 5 GM PACKET TP SCH (08:58)
[2023-08-20 09:27] LABS: INR 1.25 (0.91-1.10); PARTIAL THROMBOPLASTIN TIME 30.5 SEC (24.3-34.3); PROTHROMBIN TIME 13.1 SECS (9.2-11.1)
[2023-08-20 11:49] LABS: ANISOCYTOSIS 1+; EOSINOPHILS % (MANUAL) 5 % (0-4); LYMPHOCYTES % (MANUAL) 9 % (16-48); METAMYELOCYTES % 1 % (0-0); MONOCYTES % (MANUAL) 6 % (0-11.0); NEUTROPHILS % (MANUAL) 79 (42-76); PLATELET ESTIMATE ADEQUATE
[2023-08-20] MEDS ORDERED: MICAFUNGIN SODIUM 100 MG in IV NS 0.9% 100 ML IV SCH (12:00)
[2023-08-20] MEDS: NEPRO 1,000 ML BOTTLE GT PRN (17:16)
[2023-08-20] MEDS: CEFTAZIDIME 1 G in IV D5W 50 ML IV SCH (18:06)
[2023-08-20] MEDS: COLISTIMETHATE SODIUM 150 MG in IV NS 0.9% 50 ML IV SCH (19:49)
[2023-08-20] MEDS: TAMSULOSIN 0.4 MG CAP.SR.24H GT SCH (21:01)
[2023-08-21] VITALS: BP 111/72; TEMP 98; O2SAT 99
[2023-08-21] MEDS: BLOOD SUGAR DIAGNOSTIC 1 EACH STRIP IN SCH ×2 (00:17→05:29)
[2023-08-21] MEDS: INSULIN REGULAR, HUMAN 100 UNIT/ML 3 ML VIAL SQ PRN (01:10)
[2023-08-21 04:00] VITALS: BP 111/85; TEMP 99; O2SAT 99
[2023-08-21 06:42] LABS: BASOPHILS # (AUTO) 0.1 K/uL (0.0-0.2); BASOPHILS % (AUTO) 0.4 % (0.0-2.0); EOSINOPHILS # (AUTO) 0.8 K/uL (0.0-0.7); EOSINOPHILS % (AUTO) 5.2 % (0.0-6.0); HEMATOCRIT 22 % (39-51); LYMPHOCYTES # (AUTO) 1.5 K/uL (0.8-4.8); LYMPHOCYTES % (AUTO) 9.2 % (20.0-44.0); MEAN CORPUSCULAR HEMOGLOBIN 26 PG (26.0-33.0); MEAN CORPUSCULAR HGB CONC 31 g/dl (31.0-36.0); MEAN CORPUSCULAR VOLUME 84 fL (80-96); MONOCYTES # (AUTO) 0.6 K/uL (0.1-1.30); MONOCYTES % (AUTO) 3.9 % (2.0-12.0); NEUTROPHILS # (AUTO) 12.9 K/uL (1.8-8.9); NEUTROPHILS % (AUTO) 81.3 % (43.0-81.0); PLATELET COUNT (AUTO) 331 K/uL (150-450); RED BLOOD CELL COUNT(AUTO) 2.59 MIL/uL (4.5-6.0); RED CELL DISTRIBUTION WIDTH 20.5 % (11.5-15.0); WHITE BLOOD COUNT (AUTO) 15.8 K/uL (4.3-11.0)
[2023-08-21 06:49] LABS: CALCIUM, SERUM 8.7 mg/dL (8.5-10.1); CARBON DIOXIDE 24 mmol/L (21-32); CHLORIDE 110 mmol/L (98-107); GLUCOSE 215 mg/dL (74-106); MAGNESIUM 2.1 mg/dL (1.8-2.4); PHOSPHORUS 2.1 mg/dL (2.5-4.9); POTASSIUM 4.7 mmol/L (3.5-5.1); SODIUM SERUM 143 mmol/L (136-145); UREA NITROGEN, BLOOD 66 mg/dL (7-18)
[2023-08-21 06:58] LABS: HEMOGLOBIN 6.7 g/dL (13.5-17.5)
[2023-08-21 07:46] LABS: ANISOCYTOSIS 1+; BAND % (MANUAL) 5 % (0.0-5.0); LYMPHOCYTES % (MANUAL) 4 % (16-48); METAMYELOCYTES % 1 % (0-0); MONOCYTES % (MANUAL) 6 % (0-11.0); MYELOCYTES % 7 % (0-0); NEUTROPHILS % (MANUAL) 77 (42-76); OVALOCYTES 1+; PLATELET ESTIMATE DECREASED
[2023-08-21 08:00] VITALS: BP 66/38; TEMP 98.2; O2SAT 100
== END 2023-08-21 09:30 | DRG 3 ==
LOC: ER 22:28 → TELE1 23:19 → ICU 07-25 17:03 → TELE-TD 08-15 16:44 → TELE1 08-19 09:58
PROVIDERS: ADMIT Internal Medicine; ATTEND Nurse Practitioner Acute Care
PROC: 30233N1 Transfusion of Nonautologous Red Blood Cells into Peripheral Vein, Percutaneous Approach (ICD-10-PCS; 2023-07-22)
PROC: 0JB90ZZ Excision of Buttock Subcutaneous Tissue and Fascia, Open Approach (ICD-10-PCS; principal; 2023-07-25)
PROC: 5A1955Z Respiratory Ventilation, Greater than 96 Consecutive Hours (ICD-10-PCS; 2023-07-25)
PROC: 0BH17EZ Insertion of Endotracheal Airway into Trachea, Via Natural or Artificial Opening (ICD-10-PCS; 2023-07-25)
PROC: 05H533Z Insertion of Infusion Device into Right Subclavian Vein, Percutaneous Approach (ICD-10-PCS; 2023-07-25)
PROC: B546ZZA Ultrasonography of Right Subclavian Vein, Guidance (ICD-10-PCS; 2023-07-25)
PROC: 0B113F4 Bypass Trachea to Cutaneous with Tracheostomy Device, Percutaneous Approach (ICD-10-PCS; 2023-08-04)
PROC: 0BJ08ZZ Inspection of Tracheobronchial Tree, Via Natural or Artificial Opening Endoscopic (ICD-10-PCS; 2023-08-04)
PROC: XW033E5 Introduction of Remdesivir Anti-infective into Peripheral Vein, Percutaneous Approach, New Technology Group 5 (ICD-10-PCS; 2023-08-09)
PROC: 02HV33Z Insertion of Infusion Device into Superior Vena Cava, Percutaneous Approach (ICD-10-PCS; 2023-08-11)
PROC: B548ZZA Ultrasonography of Superior Vena Cava, Guidance (ICD-10-PCS; 2023-08-11)
PROC: 5A1D70Z Performance of Urinary Filtration, Intermittent, Less than 6 Hours Per Day (ICD-10-PCS; 2023-08-11)
PROC: 05H633Z Insertion of Infusion Device into Left Subclavian Vein, Percutaneous Approach (ICD-10-PCS; 2023-08-14)
PROC: B547ZZA Ultrasonography of Left Subclavian Vein, Guidance (ICD-10-PCS; 2023-08-14)
DX: A41.9 Sepsis, unspecified organism (principal); E43 Unspecified severe protein-calorie malnutrition; L89.313 Pressure ulcer of right buttock, stage 3; G93.41 Metabolic encephalopathy; R65.21 Severe sepsis with septic shock; J96.01 Acute respiratory failure with hypoxia; N17.0 Acute kidney failure with tubular necrosis; R53.2 Functional quadriplegia; U07.1 COVID-19; J15.69 Pneumonia due to other Gram-negative bacteria; J69.0 Pneumonitis due to inhalation of food and vomit; J12.82 Pneumonia due to coronavirus disease 2019; N39.0 Urinary tract infection, site not specified; D68.69 Other thrombophilia; Z68.1 Body mass index [BMI] 19.9 or less, adult; B49 Unspecified mycosis; E22.2 Syndrome of inappropriate secretion of antidiuretic hormone; J95.851 Ventilator associated pneumonia; N40.1 Benign prostatic hyperplasia with lower urinary tract symptoms; R33.8 Other retention of urine; G30.9 Alzheimer's disease, unspecified; F02.80 Dementia in other diseases classified elsewhere, unspecified severity, without behavioral disturbance, psychotic disturbance, mood disturbance, and anxiety; D63.8 Anemia in other chronic diseases classified elsewhere; E78.5 Hyperlipidemia, unspecified; E83.39 Other disorders of phosphorus metabolism; E87.6 Hypokalemia; E88.09 Other disorders of plasma-protein metabolism, not elsewhere classified; I10 Essential (primary) hypertension; R13.10 Dysphagia, unspecified; E11.9 Type 2 diabetes mellitus without complications; Z66 Do not resuscitate; Z74.01 Bed confinement status; Z79.4 Long term (current) use of insulin; Z79.82 Long term (current) use of aspirin; Z79.84 Long term (current) use of oral hypoglycemic drugs; Z86.14 Personal history of Methicillin resistant Staphylococcus aureus infection; Z87.440 Personal history of urinary (tract) infections; M24.561 Contracture, right knee; M24.562 Contracture, left knee; K21.9 Gastro-esophageal reflux disease without esophagitis; E86.1 Hypovolemia; F09 Unspecified mental disorder due to known physiological condition; L89.626 Pressure-induced deep tissue damage of left heel; L89.616 Pressure-induced deep tissue damage of right heel; S50.822A Blister (nonthermal) of left forearm, initial encounter; X58.XXXA Exposure to other specified factors, initial encounter; Y93.9 Activity, unspecified; Y92.129 Unspecified place in nursing home as the place of occurrence of the external cause; T17.990A Other foreign object in respiratory tract, part unspecified in causing asphyxiation, initial encounter; L98.8 Other specified disorders of the skin and subcutaneous tissue; L89.226 Pressure-induced deep tissue damage of left hip; L89.891 Pressure ulcer of other site, stage 1; Z93.1 Gastrostomy status
CPT/HCPCS: 31720; 36410; 36415; 36600; 71045-TC; 80048-TC; 80053-TC; 80061-TC; 80076-TC; 80202-TC; 81001; 82272-TC; 82533; 82550-TC; 82570-TC; 82728-TC; 82803-TC; 82962-TC; 83540-TC; 83605-TC; 83615-TC; 83735-TC; 83970; 84100-TC; 84155; 84165; 84300-TC; 84443-TC; 84478-TC; 84484-TC; 84550-TC; 85025-TC; 85027-TC; 85378-TC; 85610-TC; 85730-TC; 86140-TC; 86704; 86705; 86706; 86803; 86850-TC; 87040-TC; 87081-TC; 87086-TC; 87186-TC; 87340; 87806; 90935-TC; 94003-TC; 94762-TC; 94799-TC; 99082-TC; A4216; A4217; A4223; A6248; A6253; A6403; A7526; A9563; G0378; J0330; J0692; J0713; J0770; J1100; J1650; J1815; J2020; J2048; J2060; J2248; J2270; J2543; J3370; J3480; J3490; J7030; J7040; J7050; J7060; P9016